=== PATIENT | female | born 1945 | race Caucasian/White ===

== ENCOUNTER 2016-06-25 18:04 | Emergency (ER) | payer MEDICARE, OTHER ==
[~2016-06-25] VITALS: Ht 144.8 cm; Wt 82.1 kg
[~2016-06-25 18:04] MED LIST: ASPI81TA2 PO; ASPI81TA50 PO; ATOR20TA58 PO; CARV12.52 PO; CARV3.12 PO; CLOP75TA PO; DICL75TA PO; DOXY100C2 PO; FURO40TA4 PO; GLYB1.252 PO; GLYB2.5T2 PO; LISI1TAB5 PO; METO25TA4 PO; POTA10CA PO; POTA10TA12 PO; RANI150T2 PO; TICA90TA PO
[2016-06-25 18:37] LABS: BILIRUBIN,URINE NEGATIVE (NEG); GLUCOSE,URINE NEGATIVE (NEG); NITRITE,URINE NEGATIVE (NEG); PH,URINE 5.5; PROTEIN,URINE NEGATIVE (NEG-TRACE); UROBILINOGEN,URINE 0.2 mg/dL (0.2 mg/dL)
[2016-06-25 18:41] LABS: BACTERIA,URINE FEW /HPF (0-FEW); RBC,URINE OCC /HPF (0-2); SQUAMOUS EPITHELIAL CELL,UR FEW /LPF; WBC,URINE OCC /HPF (0-4)
[2016-06-25 18:52] LABS: BASO % 0 % (0-3); EOS % 1 % (0-3); HEMATOCRIT 30.2 % (36.0-47.0); HEMOGLOBIN 9.6 g/dL (12.0-15.5); LYMPH # 1.4 x10^3/uL (1.0-4.8); LYMPH % 14 % (24-48); MEAN CORPUSCULAR HEMOGLOBIN 27 pg (25-35); MEAN CORPUSCULAR HGB CONC 32 g/dL (31-37); MEAN CORPUSCULAR VOLUME 85 fL (79-100); MONO % 8 % (0-9); NEUT % 77 % (31-73); PLATELET COUNT 378 x10^3/uL (140-400); RED BLOOD COUNT 3.56 x10^6/uL (3.50-5.40); RED CELL DISTRIBUTION WIDTH 18.1 % (11.5-14.5); WHITE BLOOD COUNT 10.2 x10^3/uL (4.0-11.0)
[2016-06-25] MEDS ORDERED: ONDANSETRON PF 4 MG/2 ML VIAL. IV ONE (19:00)
[2016-06-25] MEDS ORDERED: IV NORMAL SALINE 1000ML BAG 1,000 ML IV SCH (19:00)
[2016-06-25 19:05] LABS: CALCIUM 9.6 mg/dL (8.5-10.1); CREATININE 1.4 mg/dL (0.6-1.0); GFR 37.2; POTASSIUM 4.1 mmol/L (3.5-5.1)
[2016-06-25 19:11] LABS: ALBUMIN 2.3 g/dL (3.4-5.0); ALBUMIN/GLOBULIN RATIO 0.4 (1.0-1.7); TOTAL BILIRUBIN 0.3 mg/dL (0.2-1.0); TOTAL PROTEIN 7.5 g/dL (6.4-8.2)
[2016-06-25 21:44] VITALS: BP 126/61
--- NOTE | 2016-06-25 22:01 | PHYS DOC ---
Past Medical History Past Medical History: Arthritis, Diabetes-Type II, Hypertension, MA, Other Additional Past Medical Histor: obese, intubated 06/2015 Past Surgical History: Angioplasty, Hysterectomy, Other Additional Past Surgical Histo: hernia x2 Alcohol Use: None Drug Use: None Adult General Chief Complaint Chief Complaint: NAUSEA/VOMITING/DIARRHA HPI HPI Patient is a 70 year old female who presents here today complaining of nausea and vomiting. Patient reports she had 4-5 episodes of vomiting today. Patient denies any diarrhea. Patient has any fevers shaking chills. Patient has any cough. Patient has any upper respiratory tract infection symptoms. Patient has any sore throat. Patient has any ear pain or chest pain. Patient denies any abdominal pain but does have cramping when she has episodes of vomiting. Patient denies a dysuria frequency or urgency. Patient denies any melena or bright red blood per rectum. Patient reports that she's had no recent sick contacts. Of note patient reports that she recently moved out of her son's home and moved back into her own house after her son is soft renovate her home. Patient does have a history of hypertension. No diabetes liver longer kidney problems. Patient denies any history of diverticulitis cancer or coronary artery disease. Patient's physical exam was nonfocal. Patient does have a poorly healing wound on her abdomen that she reports she is scheduled to have a wound VAC placed for tomorrow. Patient reports that she is very nervous about that. Patient reports that she was told that if she had any hantavirus or infection that she would have to have that canceled. While in the ER the patient was given a liter of normal saline as well as Zofran and she feels much improved. Patient is requesting to be discharged home at this time. I discussed with the patient is to call her doctor in the morning to see if they want to resume with doing the wound VAC. Patient is a 70-year-old female who presents to the ER with nausea vomiting and dehydration. Patient feels improved after antiemetics and hydration. Patient is currently stable for discharge to home. Review of Systems Review of Systems Constitutional: Denies fever or chills [] Eyes: Denies change in visual acuity, redness, or eye pain [] HENT: Denies nasal congestion or sore throat [] All other review systems are negative except as documented in the history of present illness portion. Current Medications Current Medications Current Medications Medications (Trade) Dose Ordered Sig/Michelle Start Time Stop Time Status Last Admin Dose Admin Ondansetron HCl (Zofran) 4 mg 1X ONCE 06/25/16 19:00 06/25/16 19:01 DC 06/25/16 18:51 4 MG Sodium Chloride (Iv Sodium Chloride 0.9% 1000ml Bag) 1,000 ml @ 1,000 mls/hr Q1H 06/25/16 19:00 06/25/16 19:59 DC 06/25/16 18:51 1,000 MLS/HR Allergies Allergies Allergies Coded Allergies Type Severity Reaction Last Updated Verified Penicillins Allergy Intermediate 01/06/15 Yes adhesive tape Allergy Intermediate Rash 10/15/15 Yes latex Allergy Intermediate Rash 12/21/14 Yes metformin Adverse Reaction Intermediate nausea/diarrhea 10/15/15 Yes Physical Exam Physical Exam Constitutional: Well developed, well nourished, no acute distress, non-toxic appearance. [] HENT: Normocephalic, atraumatic, bilateral external ears normal, oropharynx moist, no oral exudates, nose normal. [] Eyes: PERRLA, EOMI, conjunctiva normal, no discharge. [] Neck: Normal range of motion, no tenderness, supple, no stridor. [] Cardiovascular:Heart rate regular rhythm, no murmur [] Lungs & Thorax: Bilateral breath sounds clear to auscultation [] Abdomen: Bowel sounds normal, soft, no tenderness, no masses, no pulsatile masses. Poorly healing incision in her abdomen. [] Skin: Warm, dry, no erythema, no rash. [] Back: No tenderness, no CVA tenderness. [] Extremities: No tenderness, no cyanosis, no clubbing, ROM intact, no edema. [] Neurologic: Alert and oriented X 3, normal motor function, normal sensory function, no focal deficits noted. [] Psychologic: Affect normal, judgement normal, mood normal. [] Current Patient Data Vital Signs Vital Signs Date Time Temp Pulse Resp B/P Pulse Ox O2 Delivery O2 Flow Rate FiO2 06/25/16 21:44 98.6 108 22 126/61 96 Room Air 98.6 Lab Values Laboratory Tests Test 06/25/16 17:58 06/25/16 18:15 White Blood Count 10.2x10^3/uL (4.0-11.0) Red Blood Count 3.56x10^6/uL (3.50-5.40) Hemoglobin 9.6g/dL (12.0-15.5) L Hematocrit 30.2% (36.0-47.0) L Mean Corpuscular Volume 85fL (79-100) Mean Corpuscular Hemoglobin 27pg (25-35) Mean Corpuscular Hemoglobin Concent 32g/dL (31-37) Red Cell Distribution Width 18.1% (11.5-14.5) H Platelet Count 378x10^3/uL (140-400) Neutrophils (%) (Auto) 77% (31-73) H Lymphocytes (%) (Auto) 14% (24-48) L Monocytes (%) (Auto) 8% (0-9) Eosinophils (%) (Auto) 1% (0-3) Basophils (%) (Auto) 0% (0-3) Neutrophils # (Auto) 7.9x10^3uL (1.8-7.7) H Lymphocytes # (Auto) 1.4x10^3/uL (1.0-4.8) Monocytes # (Auto) 0.8x10^3/uL (0.0-1.1) Eosinophils # (Auto) 0.1x10^3/uL (0.0-0.7) Basophils # (Auto) 0.0x10^3/uL (0.0-0.2) Sodium Level 141mmol/L (136-145) Potassium Level 4.1mmol/L (3.5-5.1) Chloride Level 102mmol/L (98-107) Carbon Dioxide Level 23mmol/L (21-32) Anion Gap 16 (6-14) H Blood Urea Nitrogen 38mg/dL (7-20) H Creatinine 1.4mg/dL (0.6-1.0) H Estimated GFR (Cockcroft-Gault) 37.2 BUN/Creatinine Ratio 27 (6-20) H Glucose Level 204mg/dL (70-99) H Calcium Level 9.6mg/dL (8.5-10.1) Total Bilirubin 0.3mg/dL (0.2-1.0) Aspartate Amino Transferase (AST) 12U/L (15-37) L Alanine Aminotransferase (ALT) 12U/L (14-59) L Alkaline Phosphatase 130U/L (46-116) H Troponin I Quantitative < 0.017ng/mL (0.000-0.055) Total Protein 7.5g/dL (6.4-8.2) Albumin 2.3g/dL (3.4-5.0) L Albumin/Globulin Ratio 0.4 (1.0-1.7) L Lipase 183U/L (73-393) Urine Collection Type Unknown Urine Color Yellow Urine Clarity Clear Urine pH 5.5 Urine Specific [place] 1.015 Urine Protein Negativemg/dL (NEG-TRACE) Urine Glucose (UA) Negativemg/dL (NEG) Urine Ketones (Stick) Negativemg/dL (NEG) Urine Blood Negative (NEG) Urine Nitrite Negative (NEG) Urine Bilirubin Negative (NEG) Urine Urobilinogen Dipstick 0.2mg/dL (0.2 mg/dL) Urine Leukocyte Esterase Trace (NEG) Urine RBC Occ/HPF (0-2) Urine WBC Occ/HPF (0-4) Urine Squamous Epithelial Cells Few/LPF Urine Bacteria Few/HPF (0-FEW) Urine Hyaline Casts Few/HPF Urine Mucus Mod/LPF Laboratory Tests 06/25/16 17:58 Laboratory Tests 06/25/16 17:58 EKG EKG [] Radiology/Procedures Radiology/Procedures [] Course & Med Decision Making Course & Med Decision Making Pertinent Labs and Imaging studies reviewed. (See chart for details) [] Dragon Disclaimer Dragon Disclaimer This electronic medical record was generated, in whole or in part, using a voice recognition dictation system. Departure Departure Impression: Primary Impression: Dehydration Additional Impression: Vomiting with nausea, not intractable Disposition: 01 HOME, SELF-CARE Condition: IMPROVED Referrals: MILENA MCMILLAN MD (PCP) Patient Instructions: Dehydration, Elderly Problem Qualifiers NATALIYA GOMEZ MD Jun 25, 2016 22:01
--- NOTE | 2016-06-26 08:57 | EKG ---
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
== END 2016-06-25 22:09 | disposition home or self-care (01) ==
LOC: ER 18:04
DX: E86.0 Dehydration (principal); R11.2 Nausea with vomiting, unspecified; I10 Essential (primary) hypertension; I25.2 Old myocardial infarction; E11.9 Type 2 diabetes mellitus without complications; M19.90 Unspecified osteoarthritis, unspecified site; E66.9 Obesity, unspecified; Z68.39 Body mass index [BMI] 39.0-39.9, adult; Z95.1 Presence of aortocoronary bypass graft; Z91.048 Other nonmedicinal substance allergy status; Z88.8 Allergy status to other drugs, medicaments and biological substances; Z91.040 Latex allergy status; Z88.0 Allergy status to penicillin
CPT/HCPCS: 36415; 80053; 81001; 83690; 84484; 85027; 87086; 93005; 96361; 96374; 99285; J2405; J7030

== ENCOUNTER → 2016-08-16 | Outpatient (CLI) | payer OTHER ==
--- NOTE | 2016-08-16 15:52 | CARD ---
APPROVED REPORT EXAM: Two-dimensional and M-mode echocardiogram with Doppler and color Doppler. Other Information Quality : GoodHR: 75bpm Rhythm : NSR INDICATION Congestive Heart Failure Chronic Diastolic Heart Failure 2D DIMENSIONS RVDd3.3 (2.9-3.5cm)Left Atrium(2D)3.7 (1.6-4.0cm) IVSd1.1 (0.7-1.1cm)Aortic Root(2D)2.8 (2.0-3.7cm) LVDd5.0 (3.9-5.9cm)LVOT Diameter2.0 (1.8-2.4cm) PWd1.0 (0.7-1.1cm)LVDs3.6 (2.5-4.0cm) FS (%) 26.7 %SV60.8 ml LVEF(%)52.0 (>50%) Aortic Valve AoV Peak Jason.149.6cm/sAoV VTI27.4cm AO Peak GR.9.0mmHgLVOT Peak Jason.99.3cm/s LVOT VTI 19.45cmAO Mean GR.5mmHg JOSY (VMAX)2.11uu1EBJ (VTI)2.23cm2 Mitral Valve MV E Jvtazbei584.7cm/sMV E Peak Gr.92mmHg MV DECEL [id number] A Kvczzbdl166.1cm/s MV E Mean Gr.6mmHgMV LYU50qh E/A Ratio0.8MV A [id number] MVA (PHT)2.78cm2 TDI E/Lateral E'21.9E/Medial E'31.2 Pulmonary Valve PV Peak Sqmfcpqs92.9cm/sPV Peak Grad.3mmHg RVOT VTI14.5cm Tricuspid Valve TR P. Yvnxdwtf856et/sRAP CFKBTSEP1gyGm TR Peak Gr.08foIsALPZ10ayZu Pulmonary Vein S1 Hxwqibyz73.4cm/sD2 [place]10.1cm/s PVa ejmffkhf026pmcc LEFT VENTRICLE The left ventricle is normal size. There is normal left ventricular wall thickness. Proximal septal t hickening is noted. The Ejection Fraction is 50-55%. Basal inferior wall hypokinesis. Transmitral Dop pler flow pattern is Grade I-abnormal relaxation pattern. There is no ventricular septal defect visua lized. RIGHT VENTRICLE The right ventricle is normal size. The right ventricular systolic function is normal. ATRIA The left atrium size is normal. The right atrium size is normal. The interatrial septum is intact wit h no evidence for an atrial septal defect or patent foramen ovale as noted on 2-D or Doppler imaging. AORTIC VALVE The aortic valve is mildly calcified but opens well. The aortic valve is trileaflet. Doppler and [place] r Flow revealed no significant aortic regurgitation. There is no significant aortic valvular stenosis . MITRAL VALVE Mitral annular calcification is moderate to severe. The mitral valve leaflets are calcified but open well. There is no evidence of mitral valve prolapse. There is no mitral valve stenosis. Doppler and [place] Flow revealed moderate mitral regurgitation. TRICUSPID VALVE The tricuspid valve is normal in structure. Doppler and Color Flow revealed mild tricuspid regurgitat ion. There is mild pulmonary hypertension. The PA pressure was estimated at 34 mmHg. There is no tric uspid valve stenosis. PULMONIC VALVE The pulmonary valve is normal in structure and function. Doppler and Color Flow revealed no pulmonic valvular regurgitation. There is no pulmonic valvular stenosis. GREAT VESSELS The aortic root is normal in size. The ascending aorta is normal in size. Normal pulmonary venous aris w (Doppler). The IVC is normal in size and collapses >50% with inspiration. PERICARDIAL EFFUSION There is no pleural effusion. There is no evidence of significant pericardial effusion. Critical Notification Critical Value: No <Conclusion> Basal inferior wall hypokinesis. The Ejection Fraction is 50-55%. Transmitral Doppler flow pattern is Grade I-abnormal relaxation pattern. Moderate mitral regurgitation. Mild tricuspid regurgitation. The PA pressure was estimated at 34 mmHg. There is no evidence of significant pericardial effusion.
== END | disposition home or self-care (01) ==
LOC: ECHO 10:31
PROVIDERS: ATTEND Internal Medicine Cardiovascular Disease
DX: I50.32 Chronic diastolic (congestive) heart failure (principal); I08.1 Rheumatic disorders of both mitral and tricuspid valves; I27.2 Other secondary pulmonary hypertension
CPT/HCPCS: 93306

== ENCOUNTER 2017-01-30 18:24 | Inpatient (IN) | payer OTHER ==
[~2017-01-30] VITALS: Ht 147.3 cm; Wt 76.7 kg
[~2017-01-30 18:24] MED LIST changes: +ASPI-630 PO; -ASPI81TA2 PO; -POTA10CA PO; +POTASSIUM CHLO10 MEQ PO
[2017-01-30 19:19] LABS: BILIRUBIN,URINE NEGATIVE (NEG); GLUCOSE,URINE NEGATIVE (NEG); NITRITE,URINE NEGATIVE (NEG); PH,URINE 5.5; PROTEIN,URINE NEGATIVE (NEG-TRACE); UROBILINOGEN,URINE 0.2 mg/dL (0.2 mg/dL)
[2017-01-30 19:20] LABS: BASO # 0.1 x10^3/uL (0.0-0.2); BASO % 1 % (0-3); EOS % 2 % (0-3); HEMATOCRIT 30.1 % (36.0-47.0); HEMOGLOBIN 9.6 g/dL (12.0-15.5); LYMPH # 1.4 x10^3/uL (1.0-4.8); LYMPH % 22 % (24-48); MEAN CORPUSCULAR HEMOGLOBIN 28 pg (25-35); MEAN CORPUSCULAR HGB CONC 32 g/dL (31-37); MEAN CORPUSCULAR VOLUME 88 fL (79-100); MONO % 9 % (0-9); NEUT % 66 % (31-73); PLATELET COUNT 320 x10^3/uL (140-400); RED BLOOD COUNT 3.42 x10^6/uL (3.50-5.40); RED CELL DISTRIBUTION WIDTH 19.8 % (11.5-14.5); WHITE BLOOD COUNT 6.2 x10^3/uL (4.0-11.0)
[2017-01-30 19:24] LABS: BACTERIA,URINE 0 /HPF (0-FEW); RBC,URINE 0 /HPF (0-2); SQUAMOUS EPITHELIAL CELL,UR FEW /LPF; WBC,URINE OCC /HPF (0-4)
[2017-01-30 19:33] LABS: CALCIUM 9.4 mg/dL (8.5-10.1); CREATININE 1.1 mg/dL (0.6-1.0); POTASSIUM 4.3 mmol/L (3.5-5.1)
[2017-01-30 19:39] LABS: ALBUMIN 2.9 g/dL (3.4-5.0); ALBUMIN/GLOBULIN RATIO 0.6 (1.0-1.7); TOTAL BILIRUBIN 0.2 mg/dL (0.2-1.0); TOTAL PROTEIN 7.6 g/dL (6.4-8.2)
--- NOTE | 2017-01-30 19:41 | ED.ADGEN ---
Past Medical History Past Medical History: Arthritis, CHF, Diabetes-Type II, Hypertension, OR, Other Additional Past Medical Histor: obese, intubated 06/2015 Past Surgical History: Angioplasty, Hysterectomy, Other Additional Past Surgical Histo: hernia x2, CARDIAC STENT Alcohol Use: None Drug Use: None Adult General Chief Complaint Chief Complaint: BACK PAIN - NO INJURY HPI HPI Patient is a 71 year old woman, history of type 2 diabetes mellitus, hypertension, CHF, CAD status post OR, with recent skin grafting to her abdomen after adhesive created a skin defect, who presents emergency Department with complaint of bilateral back and flank pain that is in worsening all day. Patient denies any injuries, any fevers or chills, any urinary complaints, any vomiting or diarrhea, states he is not having abdominal pain, radiation of the pain, but she does feel nauseous. No chest pain or shortness of breath, no similar symptoms previously. She has been compliant with medications, states that she uses Tylenol at home for pain but has not taken anything prior to coming to the ED today. No swelling in extremities, no rashes, no recent travel or surgery. Patient states the pain is about an 8 of 10 currently, described as an aching and throbbing sensation. Patient appears uncomfortable, and is mildly tachycardic upon arousing the ED. Review of Systems Review of Systems Constitutional: Denies fever or chills. [] Eyes: Denies change in visual acuity. [] HENT: Denies nasal congestion or sore throat. [] Respiratory: Denies cough or shortness of breath. [] Cardiovascular: Denies chest pain or edema. [] GI: Denies abdominal pain, vomiting, bloody stools or diarrhea. Nausea. : Denies dysuria. [] Musculoskeletal: Back pain throughout the lumbar region, no joint pain. Integument: Denies rash. [] Neurologic: Denies headache, focal weakness or sensory changes. [] Endocrine: Denies polyuria or polydipsia. [] Lymphatic: Denies swollen glands. [] Psychiatric: Denies depression or anxiety. [] Current Medications Current Medications Current Medications Medications (Trade) Dose Ordered Sig/Michelle Start Time Stop Time Status Last Admin Dose Admin Fentanyl Citrate (Fentanyl 2ml Vial) 25 mcg PRN Q15MIN PRN 01/30/17 19:45 01/31/17 19:44 01/30/17 19:54 25 MCG Ondansetron HCl (Zofran) 4 mg 1X ONCE 01/30/17 19:45 01/30/17 19:46 DC 01/30/17 19:53 4 MG Allergies Allergies Allergies Coded Allergies Type Severity Reaction Last Updated Verified Penicillins Allergy Intermediate 01/06/15 Yes adhesive tape Allergy Intermediate Rash 10/15/15 Yes latex Allergy Intermediate Rash 12/21/14 Yes metformin Adverse Reaction Intermediate nausea/diarrhea 10/15/15 Yes Physical Exam Physical Exam Constitutional: Well developed, well nourished, no acute distress, non-toxic appearance. [] HENT: Normocephalic, atraumatic, bilateral external ears normal, oropharynx moist, no oral exudates, nose normal. [] Eyes: PERRLA, EOMI, conjunctiva normal, no discharge. [] Neck: Normal range of motion, no tenderness, supple, no stridor. [] Cardiovascular:Heart rate regular rhythm, no murmur [] Lungs & Thorax: Bilateral breath sounds clear to auscultation [] Abdomen: Bowel sounds normal, soft, patient with large dressing in place over the anterior abdomen, where she has skin graft placed, tenderness around the site, no discharge or drainage identified, no rebound or rigidity, no masses, no pulsatile masses. [] Skin: Warm, dry, no erythema, no rash. [] Back: Patient with midline and paraspinal tenderness throughout the lumbar region, no step-offs or deformities, no lesions, no evidence of normality is noted externally.[] Extremities: No tenderness, no cyanosis, no clubbing, ROM intact, no edema. [] Neurologic: Alert and oriented X 3, normal motor function, normal sensory function, no focal deficits noted. [] Psychologic: Affect normal, judgement normal, mood normal. [] Current Patient Data Vital Signs Vital Signs Date Time Temp Pulse Resp B/P (MAP) Pulse Ox O2 Delivery O2 Flow Rate FiO2 01/30/17 20:45 Room Air 01/30/17 20:35 94 22 105/51 (69) 93 01/30/17 18:35 98.2 98.2 Lab Values Laboratory Tests Test 01/30/17 19:10 White Blood Count 6.2 x10^3/uL (4.0-11.0) Red Blood Count 3.42 x10^6/uL (3.50-5.40) L Hemoglobin 9.6 g/dL (12.0-15.5) L Hematocrit 30.1 % (36.0-47.0) L Mean Corpuscular Volume 88 fL (79-100) Mean Corpuscular Hemoglobin 28 pg (25-35) Mean Corpuscular Hemoglobin Concent 32 g/dL (31-37) Red Cell Distribution Width 19.8 % (11.5-14.5) H Platelet Count 320 x10^3/uL (140-400) Neutrophils (%) (Auto) 66 % (31-73) Lymphocytes (%) (Auto) 22 % (24-48) L Monocytes (%) (Auto) 9 % (0-9) Eosinophils (%) (Auto) 2 % (0-3) Basophils (%) (Auto) 1 % (0-3) Neutrophils # (Auto) 4.1 x10^3uL (1.8-7.7) Lymphocytes # (Auto) 1.4 x10^3/uL (1.0-4.8) Monocytes # (Auto) 0.6 x10^3/uL (0.0-1.1) Eosinophils # (Auto) 0.1 x10^3/uL (0.0-0.7) Basophils # (Auto) 0.1 x10^3/uL (0.0-0.2) Prothrombin Time 13.0 SEC (11.7-14.0) Prothrombin Time INR 1.0 (0.8-1.1) PTT 30 SEC (24-38) Urine Collection Type Unknown Urine Color Yellow Urine Clarity Clear Urine pH 5.5 Urine Specific [place] 1.015 Urine Protein Negative mg/dL (NEG-TRACE) Urine Glucose (UA) Negative mg/dL (NEG) Urine Ketones (Stick) Negative mg/dL (NEG) Urine Blood Negative (NEG) Urine Nitrite Negative (NEG) Urine Bilirubin Negative (NEG) Urine Urobilinogen Dipstick 0.2 mg/dL (0.2 mg/dL) Urine Leukocyte Esterase Trace (NEG) Urine RBC 0 /HPF (0-2) Urine WBC Occ /HPF (0-4) Urine Squamous Epithelial Cells Few /LPF Urine Bacteria 0 /HPF (0-FEW) Urine Mucus Slight /LPF Sodium Level 140 mmol/L (136-145) Potassium Level 4.3 mmol/L (3.5-5.1) Chloride Level 102 mmol/L (98-107) Carbon Dioxide Level 28 mmol/L (21-32) Anion Gap 10 (6-14) Blood Urea Nitrogen 26 mg/dL (7-20) H Creatinine 1.1 mg/dL (0.6-1.0) H Estimated GFR (Cockcroft-Gault) 49.0 BUN/Creatinine Ratio 24 (6-20) H Glucose Level 210 mg/dL (70-99) H Calcium Level 9.4 mg/dL (8.5-10.1) Total Bilirubin 0.2 mg/dL (0.2-1.0) Aspartate Amino Transferase (AST) 11 U/L (15-37) L Alanine Aminotransferase (ALT) 14 U/L (14-59) Alkaline Phosphatase 110 U/L (46-116) Troponin I Quantitative < 0.017 ng/mL (0.000-0.055) Total Protein 7.6 g/dL (6.4-8.2) Albumin 2.9 g/dL (3.4-5.0) L Albumin/Globulin Ratio 0.6 (1.0-1.7) L Lipase 150 U/L (73-393) Laboratory Tests 01/30/17 19:10 Laboratory Tests 01/30/17 19:10 EKG EKG EC: Sinus tachycardia, heart rate 105 bpm, QTC of 440, PA of 164, QRS of 98, no ST elevations or depressions, patient with contour normality is noted in the anterior lateral leads, abnormal ECG, does not meet STEMI criteria. As interpreted by me. Radiology/Procedures Radiology/Procedures [][facility] [address] [place], [place] [id number] IMAGING REPORT Signed PATIENT: SAFIA MIRANDA ACCOUNT: [id number] : 1945 LOCATION: ER AGE: 71 SEX: F EXAM STATUS: REG ER ORD. PHYSICIAN: FIOR JAEGER DO REASON: Back pain/flank pain PROCEDURE: CT LUMBAR SPINE RECONSTRUCTION Indication: Back pain. Technique: Axial images and coronal and sagittal reformatted images are provided. Images were obtained from the abdomen and pelvis data set. No comparison is available. One or more of the following individualized dose reduction techniques were utilized for this examination: 1. Automated exposure control 2. Adjustment of the mA and/or kV according to patient size 3. Use of iterative reconstruction technique Findings: What is considered L1 has nonunited transverse processes. There is anterolisthesis at L4-L5 measuring 5 mm. This may be secondary to facet hypertrophy. There are L5 pars defects bilaterally but no listhesis at L5-S1. No fracture is identified. Vertebral body height is maintained. Vacuum disc is noted at T12-L1. Disc osteophyte complex is noted at T12-L1. Facet hypertrophy is greatest at L4-L5 and L5-S1. There is probably mild canal stenosis at L4-L5. There is at least [id number] foraminal narrowing at L4-L5 and L5-S1. IMPRESSION: 1. Degenerative changes in the lumbar spine, greatest at L4-L5 and L5-S1. If further workup is required, consider MRI nonemergently. 2. L5 bilateral pars defects without significant listhesis. Anterolisthesis at L4-L5 appears to be secondary to facet hypertrophy. Electronically signed by: Salvador Thomas MD (01/30/2017 8:14 PM) [facility] DICTATED and SIGNED BY: SALVADOR THOMAS MD DATE: 01/30/172007 CC: MILENA MCMILLAN MD; FIOR JAEGER DO ~ Impressions: [facility] [address] [place], [place] [id number] IMAGING REPORT Signed PATIENT: SAFIA MIRANDA ACCOUNT: [id number] : 1945 LOCATION: ER AGE: 71 SEX: F EXAM STATUS: REG ER ORD. PHYSICIAN: FIOR JAEGER DO REASON: Flank/lumbar pain PROCEDURE: CT ABDOMEN PELVIS WO CONTRAST PQRS Compliance Statement: One or more of the following individualized dose reduction techniques were utilized for this examination: 1. Automated exposure control 2. Adjustment of the mA and/or kV according to patient size 3. Use of iterative reconstruction technique CT abdomen/pelvis without contrast January 30, 2017 at 7:39 PM INDICATION: Bilateral flank pain and back pain. History of abdominal plastic surgery. COMPARISON: CT lumbar spine January 30, 2017, CT chest May 23, 2015 TECHNIQUE: Multiple axial CT images of the abdomen and pelvis were obtained without intravenous contrast. Coronal and sagittal reformats are provided. FINDINGS: Lung bases are clear. Heart size is within normal limits. Mitral valve prosthesis is present. Evaluation of the solid abdominal viscera is limited by lack of intravenous contrast. Liver is homogeneous without evidence for a focal mass lesion. Spleen is within normal limits. Mild fatty atrophy of the pancreas. There is fusiform thickening of the adrenal glands bilaterally measuring up to 10 mm on the left and 9 mm in the right. Gallbladder is surgically absent. The abdominal aorta is normal in course and caliber. There are no pathologically enlarged abdominal or pelvic lymph nodes. There is no free fluid within the abdomen or pelvis. There is no free intraperitoneal air. The kidneys are symmetric in size. There is a 3 mm calcification in the left renal pelvis which may be vascular or associated with a nonobstructing renal calculus. No calculi are identified in the right kidney. There is no hydronephrosis. Urinary bladder is normal in appearance given degree of distention. No significant adnexal masses are identified. Oral contrast was not administered. There are no dilated loops of small or large bowel. There is a large ventral abdominal hernia, to the right of midline, likely secondary to diastases of the abdominal rectus muscles. There is mild circumferential wall thickening and pericolonic inflammatory changes noted in the sigmoid colon in a region of diverticulosis suspicious for mild diverticulitis. Additionally, there is suggestion of pericolonic inflammatory changes involving a segment of suspected small bowel within the large hernia sac (series 2, image [id number]). This finding may be secondary to an internal hernia, which is difficult to evaluate without oral contrast. There is nonspecific skin thickening involving the right ventral abdominal wall measuring approximately 6 mm. No suspicious osseous lesions are identified. IMPRESSION: 1. Short segment of colonic wall thickening and pericolonic inflammatory changes involving the sigmoid colon in the area of diverticulosis is suggestive of mild diverticulitis. No pericolonic fluid collection is identified. No free peritoneal air. 2. There are inflammatory changes surrounding small bowel loops within a large ventral abdominal hernia which could be secondary to an internal hernia. No evidence for bowel obstruction. Short term follow up CT Abdomen/Pelvis is recommended with oral contrast for further evaluation. 3. Nonobstructing 3 mm calculus versus vascular calcification noted in the left kidney. No hydronephrosis. Next on 4. Fusiform thickening of the adrenal glands bilaterally may be associated with adrenal hyperplasia. Findings are stable dating back to May 23, 2015. 4. Nonspecific skin thickening involving the ventral right abdominal wall. Critical results were discussed with Dr. Jaeger at 8:15 PM on 01/30/2017. Electronically signed by: Siobhan Neff MD (01/30/2017 8:16 PM) [id number] DICTATED and SIGNED BY: SIOBHAN NEFF MD DATE: 01/30/171956 CC: MILENA MCMILLAN MD; FIOR JAEGER DO ~ Course & Med Decision Making Course & Med Decision Making Pertinent Labs and Imaging studies reviewed. (See chart for details) Patient complaining of pain throughout the lumbar region, without any cells or deformities. Due to patient's recent abdominal surgery, with diffuse unclear symptoms, and no history of injury, CT of the abdomen and pelvis ordered along with re-cons of the lumbar spine. No lumbar spinal normalities were identified be consistent with patient's acute findings, however patient's abdominal CT did reveal evidence of diverticulitis, which is likely the source of the patient's discomfort. I did discuss this with patient, she is resting more, left receiving analgesia and antiemetics in the ED, heart rate has now normalized, she states her pain is much better. She is agreeable for admission to the hospital for IV treatment of symptoms, and with antibiotic coverage, states she was last seen by a GI physician about 5 years ago for a colonoscopy. Patient initiated on ciprofloxacin and metronidazole in the ED without issue. I did discuss findings as above with Dr. Mcmillan the patient's primary care provider, patient was accepted his service as a full admission to the medical telemetry floor, with symptom management, antibiotic treatment, and monitoring. Bridge orders entered per discussion. Patient transferred to the floor without issue. Dragon Disclaimer Dragon Disclaimer This electronic medical record was generated, in whole or in part, using a voice recognition dictation system. Departure Impression: Primary Impression: Diverticulitis Additional Impression: Intractable abdominal pain Disposition: ADMITTED INPATIENT Admitting Physician: Milena Mcmillan Condition: IMPROVED Problem Qualifiers FIOR JAEGER DO Jan 30, 2017 19:41
[2017-01-30] MEDS ORDERED: ONDANSETRON PF 4 MG/2 ML VIAL. IV ONE (19:45)
[2017-01-30] MEDS: fentaNYL PF VIAL 100 MCG/2 ML VIAL IV PRN (19:54)
--- NOTE | 2017-01-30 20:17 | RAD ---
Indication: Back pain. Technique: Axial images and coronal and sagittal reformatted images are provided. Images were obtained from the abdomen and pelvis data set. No comparison is available. One or more of the following individualized dose reduction techniques were utilized for this examination: 1. Automated exposure control 2. Adjustment of the mA and/or kV according to patient size 3. Use of iterative reconstruction technique Findings: What is considered L1 has nonunited transverse processes. There is anterolisthesis at L4-L5 measuring 5 mm. This may be secondary to facet hypertrophy. There are L5 pars defects bilaterally but no listhesis at L5-S1. No fracture is identified. Vertebral body height is maintained. Vacuum disc is noted at T12-L1. Disc osteophyte complex is noted at T12-L1. Facet hypertrophy is greatest at L4-L5 and L5-S1. There is probably mild canal stenosis at L4-L5. There is at least [id number] foraminal narrowing at L4-L5 and L5-S1. IMPRESSION: 1. Degenerative changes in the lumbar spine, greatest at L4-L5 and L5-S1. If further workup is required, consider MRI nonemergently. 2. L5 bilateral pars defects without significant listhesis. Anterolisthesis at L4-L5 appears to be secondary to facet hypertrophy. Electronically signed by: Salvador Thomas MD (01/30/2017 8:14 PM) [facility]
--- NOTE | 2017-01-30 20:19 | RAD ---
PQRS Compliance Statement: One or more of the following individualized dose reduction techniques were utilized for this examination: 1. Automated exposure control 2. Adjustment of the mA and/or kV according to patient size 3. Use of iterative reconstruction technique CT abdomen/pelvis without contrast January 30, 2017 at 7:39 PM INDICATION: Bilateral flank pain and back pain. History of abdominal plastic surgery. COMPARISON: CT lumbar spine January 30, 2017, CT chest May 23, 2015 TECHNIQUE: Multiple axial CT images of the abdomen and pelvis were obtained without intravenous contrast. Coronal and sagittal reformats are provided. FINDINGS: Lung bases are clear. Heart size is within normal limits. Mitral valve prosthesis is present. Evaluation of the solid abdominal viscera is limited by lack of intravenous contrast. Liver is homogeneous without evidence for a focal mass lesion. Spleen is within normal limits. Mild fatty atrophy of the pancreas. There is fusiform thickening of the adrenal glands bilaterally measuring up to 10 mm on the left and 9 mm in the right. Gallbladder is surgically absent. The abdominal aorta is normal in course and caliber. There are no pathologically enlarged abdominal or pelvic lymph nodes. There is no free fluid within the abdomen or pelvis. There is no free intraperitoneal air. The kidneys are symmetric in size. There is a 3 mm calcification in the left renal pelvis which may be vascular or associated with a nonobstructing renal calculus. No calculi are identified in the right kidney. There is no hydronephrosis. Urinary bladder is normal in appearance given degree of distention. No significant adnexal masses are identified. Oral contrast was not administered. There are no dilated loops of small or large bowel. There is a large ventral abdominal hernia, to the right of midline, likely secondary to diastases of the abdominal rectus muscles. There is mild circumferential wall thickening and pericolonic inflammatory changes noted in the sigmoid colon in a region of diverticulosis suspicious for mild diverticulitis. Additionally, there is suggestion of pericolonic inflammatory changes involving a segment of suspected small bowel within the large hernia sac (series 2, image [id number]). This finding may be secondary to an internal hernia, which is difficult to evaluate without oral contrast. There is nonspecific skin thickening involving the right ventral abdominal wall measuring approximately 6 mm. No suspicious osseous lesions are identified. IMPRESSION: 1. Short segment of colonic wall thickening and pericolonic inflammatory changes involving the sigmoid colon in the area of diverticulosis is suggestive of mild diverticulitis. No pericolonic fluid collection is identified. No free peritoneal air. 2. There are inflammatory changes surrounding small bowel loops within a large ventral abdominal hernia which could be secondary to an internal hernia. No evidence for bowel obstruction. Short term follow up CT Abdomen/Pelvis is recommended with oral contrast for further evaluation. 3. Nonobstructing 3 mm calculus versus vascular calcification noted in the left kidney. No hydronephrosis. Next on 4. Fusiform thickening of the adrenal glands bilaterally may be associated with adrenal hyperplasia. Findings are stable dating back to May 23, 2015. 4. Nonspecific skin thickening involving the ventral right abdominal wall. Critical results were discussed with Dr. Raymundo at 8:15 PM on 01/30/2017. Electronically signed by: Meenakshi Caban MD (01/30/2017 8:16 PM) [id number]
[2017-01-30] MEDS ORDERED: CIPROFLOXACIN 400MG PREMIX 200 ML IV ONE (21:00)
[2017-01-30] MEDS ORDERED: ACETAMINOPHEN 325 MG TABLET. PO PRN (22:00)
[2017-01-30] MEDS ORDERED: ONDANSETRON PF 4 MG/2 ML VIAL. IV PRN (22:00)
[2017-01-30] MEDS ORDERED: fentaNYL PF VIAL 100 MCG/2 ML VIAL IV PRN (22:00)
[2017-01-31] VITALS (8 sets, daily range): BP systolic 102–120; BP diastolic 35–59
[2017-01-31] MEDS ORDERED: METO25TA4 PO (00:55)
[2017-01-31] MEDS ORDERED: ATOR40TA59 PO (00:55)
[2017-01-31] MEDS: IV NORMAL SALINE 1000ML BAG 1,000 ML IV SCH ×3 (01:35→14:40)
[2017-01-31 04:38] LABS: BASO % 0 % (0-3); EOS % 2 % (0-3); HEMATOCRIT 26.7 % (36.0-47.0); HEMOGLOBIN 8.6 g/dL (12.0-15.5); LYMPH # 1.3 x10^3/uL (1.0-4.8); LYMPH % 32 % (24-48); MEAN CORPUSCULAR HEMOGLOBIN 29 pg (25-35); MEAN CORPUSCULAR HGB CONC 32 g/dL (31-37); MEAN CORPUSCULAR VOLUME 88 fL (79-100); MONO % 13 % (0-9); NEUT % 53 % (31-73); PLATELET COUNT 235 x10^3/uL (140-400); RED BLOOD COUNT 3.04 x10^6/uL (3.50-5.40); RED CELL DISTRIBUTION WIDTH 19.6 % (11.5-14.5); WHITE BLOOD COUNT 4.1 x10^3/uL (4.0-11.0)
[2017-01-31 05:04] LABS: CALCIUM 9.1 mg/dL (8.5-10.1); CREATININE 0.8 mg/dL (0.6-1.0); GFR 70.7; POTASSIUM 3.9 mmol/L (3.5-5.1)
--- NOTE | 2017-01-31 06:31 | EKG ---
[facility] [address] [place] [address] Test Date: 2017-01-30 Test Time: 18:31:09 Pat Name: SAFIA MIRANDA Department: Room: 210 1 Gender: F Screed Person: : 1945 Requested By: FIOR JAEGER Order Number: [id number] Reading MD: Gene Partida Measurements Intervals Colbert Rate: 105 P: 36 OR: 164 QRS: 7 QRSD: 98 T: 63 QT: 330 QTc: 440 Interpretive Statements SINUS TACHYCARDIA QRS(T) CONTOUR ABNORMALITY CONSIDER ANTEROLATERAL MYOCARDIAL DAMAGE RI6.01 Unconfirmed report Compared to ECG 06/25/2016 18:40:47 Right superior axis no longer present T-wave abnormality no longer present Electronically Signed On 02-09-2017 12:46:20 CDT by Gene Partida
--- NOTE | 2017-01-31 09:32 | PDOC ---
Provider Note Provider Note [id number] MILENA MCMILLAN MD Jan 31, 2017 09:32
[2017-01-31] MEDS: CIPROFLOXACIN 400MG PREMIX 200 ML IV SCH ×2 (10:26→20:33)
[2017-01-31] MEDS: METOPROLOL TART IMMED RELEASE 25 MG TABLET. PO SCH ×2 (10:26→20:34)
[2017-01-31] MEDS: ASPIRIN CHEWABLE 81 MG TABLET. PO SCH (10:26)
[2017-01-31] MEDS: CLOPIDOGREL BISULFATE 75 MG TABLET PO SCH (10:26)
[2017-01-31] MEDS: fentaNYL PF VIAL 100 MCG/2 ML VIAL IV PRN (10:27)
--- NOTE | 2017-01-31 10:45 | HP ---
ADMIT DATE: 01/30/2017 CHIEF COMPLAINT: Back pain. HISTORY OF PRESENT ILLNESS: This 71-year-old white female has a history of diet-controlled diabetes and congestive heart failure, preserved ejection fraction, and skin graft at [facility]. She developed left flank and slightly upper quadrant pain, a couple of days prior to admission, but no vomiting, diarrhea, fever or any GI symptoms. CT scan showed evidence of mild diverticulitis and she was placed on IV Flagyl and Cipro, and has no other new complaints at this time. PAST MEDICAL HISTORY: Multiple admissions for coronary artery stenting, the last about 2 years ago, and is on aspirin and Plavix since that time. She has diet-controlled diabetes. The patient sees [facility] for skin grafts of her abdomen which are improving. ALLERGIES: LISTED TO METFORMIN, PENICILLIN. SOCIAL HISTORY: , nonsmoker, nondrinker, not employed. FAMILY HISTORY: Unremarkable. REVIEW OF SYSTEMS: No other specific complaints. OBJECTIVE: ENT: All within normal limits. NECK: No masses, nodes or bruits, or thyroid enlargement. LUNGS: Clear. No rales. CARDIOVASCULAR: Regular rate. No irregular beat or murmur. No tachycardia. ABDOMEN: Obese, nontender. She has healing skin grafts on the abdomen. She is mildly tender in the left upper quadrant and left flank area. No masses are felt. EXTREMITIES: Good pedal and radial pulses. No joint or skin lesions or nail bed findings. NEUROLOGIC: Physiologic and nonfocal. ASSESSMENT: Proximal sigmoid colon diverticulitis, otherwise medically stable. PLAN: Continue IV Cipro and Flagyl and supportive care. MILENA MCMILLAN MD DR: FATEMEH/suleman JOB#: [id number] / [id number]
[2017-01-31] MEDS ORDERED: POTASSIUM CHLORIDE 10 MEQ TABLET.ER. PO SCH (18:00)
[2017-01-31] MEDS: ATORVASTATIN CALCIUM 20 MG TABLET PO SCH (20:33)
[2017-01-31] MEDS: FAMOTIDINE 20 MG TABLET. PO SCH (20:34)
[2017-02-01 03:15] VITALS: BP 107/44
[2017-02-01 07:15] VITALS: BP 113/66
[2017-02-01] MEDS ORDERED: FUROSEMIDE 40 MG TABLET. PO SCH (09:00)
[2017-02-01] MEDS: ASPIRIN CHEWABLE 81 MG TABLET. PO SCH (09:17)
[2017-02-01] MEDS: CLOPIDOGREL BISULFATE 75 MG TABLET PO SCH (09:17)
[2017-02-01] MEDS: CIPROFLOXACIN 400MG PREMIX 200 ML IV SCH ×2 (09:19→21:32)
--- NOTE | 2017-02-01 09:23 | PDOC ---
Provider Note Provider Note pain less, no temp, less tender- hb lower so repeat- same hilario, terell cardoza in am MILENA MCMILLAN MD Feb 01, 2017 09:23
[2017-02-01] MEDS ORDERED: FUROSEMIDE 40 MG TABLET. PO ONE (09:30)
[2017-02-01] MEDS: METOPROLOL TART IMMED RELEASE 25 MG TABLET. PO SCH ×2 (09:30→21:10)
[2017-02-01 10:11] LABS: HEMOGLOBIN 9.1 g/dL (12.0-15.5); RED BLOOD COUNT 3.26 x10^6/uL (3.50-5.40); RED CELL DISTRIBUTION WIDTH 19.1 % (11.5-14.5); WHITE BLOOD COUNT 5.2 x10^3/uL (4.0-11.0)
[2017-02-01 11:20] VITALS: BP 126/56
[2017-02-01 15:17] VITALS: BP 109/61
[2017-02-01 19:00] VITALS: BP 105/59
[2017-02-01] MEDS: FAMOTIDINE 20 MG TABLET. PO SCH (21:11)
[2017-02-01] MEDS: ATORVASTATIN CALCIUM 20 MG TABLET PO SCH (21:11)
[2017-02-01 23:00] VITALS: BP 105/53
[2017-02-02 03:00] VITALS: BP 97/50
[2017-02-02 07:00] VITALS: BP 127/54
[2017-02-02] MEDS: METOPROLOL TART IMMED RELEASE 25 MG TABLET. PO SCH (08:02)
--- NOTE | 2017-02-02 08:30 | DISCH ---
DISCHARGE INSTRUCTIONS Condition on Discharge Condition on Discharge: Stable Activity After Discharge Activity Instructions for Disc: No restrictions Diet after Discharge Diet after Discharge: Diabetic No Calorie Level Follow-Up Follow up with: MILENA Hedrick MD Feb 02, 2017 08:30
--- NOTE | 2017-02-02 08:34 | PDOC ---
Provider Note Provider Note [id number] MILENA MCMILLAN MD Feb 02, 2017 08:34
[2017-02-02] MEDS: CIPROFLOXACIN 400MG PREMIX 200 ML IV SCH (09:00)
[2017-02-02] MEDS: CLOPIDOGREL BISULFATE 75 MG TABLET PO SCH (09:18)
[2017-02-02] MEDS: ASPIRIN CHEWABLE 81 MG TABLET. PO SCH (09:18)
[2017-02-02 11:00] VITALS: BP 103/55
--- NOTE | 2017-02-02 19:24 | DS ---
DATE OF DISCHARGE: 02/02/2017 HOSPITAL SUMMARY: The patient came in with left upper quadrant and left flank pain and was found to have mild diverticulitis at the sigmoid colon on CT scan with no other significant abnormalities except for ventral hernia without small bowel obstruction. The CT scan of her lumbar spine showed degenerative changes, but no acute changes. Chemistry profile was normal. CBC showed hemoglobin at 9.6 which is stable for her as an outpatient and remained stable, last value being 9.1. Urinalysis was clear. Urine culture grew only urogenital jacqueline. She was treated with IV Flagyl and Cipro and her pain is largely dissipated and feeling much better. She is afebrile, eating a normal diet and able to be transferred to outpatient care. FINAL DIAGNOSES: 1. Acute sigmoid diverticulitis. 2. Anemia of chronic disease. OPERATIONS, PROCEDURES, COMPLICATIONS, CONSULTATIONS: None. DISPOSITION: Flagyl 500 mg twice a day for 1 week, Cipro 500 mg twice a day for 1 week. Rest of home meds remain the same. She is on iron t.i.d. to counteract the effects of aspirin and Plavix and she will see us in the office in 1 week for repeat hemoglobin and follow up. MILENA MCMILLAN MD DR: FATEMEH/suleman JOB#: [id number] / [id number]
[2017-02-23] MEDS ORDERED: FURO-68 PO (22:29)
[2017-02-23] MEDS ORDERED: POTASSIUM CHLO10 MEQ PO (22:29)
[2017-02-23] MEDS ORDERED: FERR-26 PO (22:30)
[2017-03-01] MEDS ORDERED: METR500T PO (15:13)
[2017-03-01] MEDS ORDERED: CEFP200T PO (15:13)
== END 2017-02-02 11:30 | disposition home or self-care (01) | DRG 392 ==
LOC: ER 18:24 → 2 NORTH 20:50 → 4 NORTH 01-31 14:45
PROVIDERS: ADMIT Family Medicine; ATTEND Family Medicine
DX: K57.20 Diverticulitis of large intestine with perforation and abscess without bleeding (principal); E11.9 Type 2 diabetes mellitus without complications; I11.0 Hypertensive heart disease with heart failure; I50.9 Heart failure, unspecified; D63.8 Anemia in other chronic diseases classified elsewhere; I25.2 Old myocardial infarction; E66.9 Obesity, unspecified; I25.10 Atherosclerotic heart disease of native coronary artery without angina pectoris; M43.16 Spondylolisthesis, lumbar region; M47.816 Spondylosis without myelopathy or radiculopathy, lumbar region; Z90.710 Acquired absence of both cervix and uterus; Z95.5 Presence of coronary angioplasty implant and graft; Z68.35 Body mass index [BMI] 35.0-35.9, adult; M19.90 Unspecified osteoarthritis, unspecified site; Z88.0 Allergy status to penicillin; Z91.041 Radiographic dye allergy status; Z91.040 Latex allergy status; K43.9 Ventral hernia without obstruction or gangrene
CPT/HCPCS: 36415; 74176; 80048; 80053; 81001; 83690; 84484; 85025; 85027; 85610; 85730; 87086; 93005; 96374; 96375; J0744; J2405; J3010; J3490; J7030; 99285-25

== ENCOUNTER 2017-03-09 07:58 | Inpatient (IN) | payer OTHER ==
[~2017-03-09] VITALS: Ht 147.3 cm; Wt 84.4 kg
[~2017-03-09 07:58] MED LIST changes: +ATOR40TA59 PO; +CEFP200T PO; +FERR-26 PO; +FURO-68 PO; +METR500T PO
[2017-03-09] MEDS ORDERED: ONDANSETRON PF 4 MG/2 ML VIAL. IV ONE (08:15)
--- NOTE | 2017-03-09 08:16 | PHYS DOC ---
Past Medical History Past Medical History: Arthritis, CHF, Diabetes-Type II, Hypertension, [place], Other Additional Past Medical Histor: obese, intubated 06/2015 Past Surgical History: Angioplasty, Hysterectomy, Other Additional Past Surgical Histo: hernia x2, CARDIAC STENT Alcohol Use: None Drug Use: None Adult General Chief Complaint Chief Complaint: ABDOMINAL PAIN/Nausea HPI HPI Patient is a 71 year old female who presents with RUQ pain with nausea that started today. This is similar to pain she had last month and found to have a pericolonic abscess that formed required drainage and IV antibiotics. Denies known fevers, no vomiting, no dysuria or change in bowels. Pt completed her outpt abx yesterday. She had a f/u appt with PCP scheduled for today. Review of Systems Review of Systems Constitutional: Denies fever or chills [] Eyes: Denies change in visual acuity, redness, or eye pain [] HENT: Denies nasal congestion or sore throat [] Respiratory: Denies cough or shortness of breath [] Cardiovascular: denies chest pain GI: per hpi : Denies dysuria or hematuria [] Musculoskeletal: Denies back pain or joint pain [] Integument: Denies rash or skin lesions [] Neurologic: Denies headache, focal weakness or sensory changes [] Current Medications Current Medications Current Medications Medications (Trade) Dose Ordered Sig/Michelle Start Time Stop Time Status Last Admin Dose Admin Ceftriaxone Sodium 50 ml @ 100 mls/hr 1X ONCE 03/09/17 09:30 03/09/17 09:55 DC Info (Do NOT chart on this entry -- for MONITORING) 1 each PRN DAILY PRN 03/09/17 08:45 03/11/17 08:44 Iohexol (Omnipaque 300 Mg/ml) 75 ml 1X ONCE 03/09/17 08:45 03/09/17 08:46 DC 03/09/17 08:50 75 ML Ondansetron HCl (Zofran) 4 mg 1X ONCE 03/09/17 08:15 03/09/17 08:16 DC 03/09/17 08:30 4 MG Allergies Allergies Allergies Coded Allergies Type Severity Reaction Last Updated Verified Penicillins Allergy Intermediate 01/06/15 Yes adhesive tape Allergy Intermediate Rash 10/15/15 Yes latex Allergy Intermediate Rash 12/21/14 Yes metformin Adverse Reaction Intermediate nausea/diarrhea 10/15/15 Yes Physical Exam Physical Exam Constitutional: Well developed, well nourished, no acute distress, non-toxic appearance. [] HENT: Normocephalic, atraumatic, bilateral external ears normal, oropharynx moist, no oral exudates, nose normal. [] Eyes: PERRLA, EOMI, conjunctiva normal, no discharge. [] Neck: Normal range of motion, no tenderness, supple, no stridor. [] Cardiovascular:Heart rate regular with regular rhythm Lungs & Thorax: Bilateral breath sounds clear to auscultation , no wheeze or crackles Abdomen: ttp in RUQ and lower abdomen, dressing and mesh over lower abdomen from prior skin graft, no guarding or peritoneal signs. Skin: Warm, dry, no erythema, no rash. [] Back: No tenderness, no CVA tenderness. [] Extremities: No tenderness, no cyanosis, no clubbing, ROM intact, no edema. [] Neurologic: Alert and oriented X 3, normal motor function, normal sensory function, no focal deficits noted. [] Psychologic: Affect normal, judgement normal, mood normal. [] Current Patient Data Vital Signs Vital Signs Date Time Temp Pulse Resp B/P (MAP) Pulse Ox O2 Delivery O2 Flow Rate FiO2 03/09/17 09:48 84 18 74/47 (56) 95 Room Air 03/09/17 08:12 98.1 98.1 Lab Values Laboratory Tests Test 03/09/17 08:10 03/09/17 08:21 03/09/17 08:30 03/09/17 09:02 White Blood Count 7.2 x10^3/uL (4.0-11.0) Red Blood Count 3.67 x10^6/uL (3.50-5.40) Hemoglobin 10.1 g/dL (12.0-15.5) L Hematocrit 31.9 % (36.0-47.0) L Mean Corpuscular Volume 87 fL (79-100) Mean Corpuscular Hemoglobin 28 pg (25-35) Mean Corpuscular Hemoglobin Concent 32 g/dL (31-37) Red Cell Distribution Width 19.2 % (11.5-14.5) H Platelet Count 423 x10^3/uL (140-400) H Neutrophils (%) (Auto) 75 % (31-73) H Lymphocytes (%) (Auto) 15 % (24-48) L Monocytes (%) (Auto) 10 % (0-9) H Eosinophils (%) (Auto) 0 % (0-3) Basophils (%) (Auto) 0 % (0-3) Neutrophils # (Auto) 5.4 x10^3uL (1.8-7.7) Lymphocytes # (Auto) 1.1 x10^3/uL (1.0-4.8) Monocytes # (Auto) 0.7 x10^3/uL (0.0-1.1) Eosinophils # (Auto) 0.0 x10^3/uL (0.0-0.7) Basophils # (Auto) 0.0 x10^3/uL (0.0-0.2) Total Bilirubin 0.3 mg/dL (0.2-1.0) Direct Bilirubin 0.1 mg/dL (0.0-0.2) Aspartate Amino Transferase (AST) 12 U/L (15-37) L Alanine Aminotransferase (ALT) 11 U/L (14-59) L Alkaline Phosphatase 93 U/L (46-116) Total Protein 6.9 g/dL (6.4-8.2) Albumin 2.6 g/dL (3.4-5.0) L Lactic Acid Level 2.2 mmol/L (0.4-2.0) H POC Hemoglobin 11.6 g/dL (12-15) L POC Hematocrit 34 % (36-40) L POC Sodium 136 mmol/L (135-145) POC Potassium 5.3 mmol/L (3.5-5.0) H POC Chloride 103 mmol/L (98-110) POC Total CO2 24 mmol/L (23-32) Anion Gap 15 mmol/L (6-14) H POC Blood Urea Nitrogen 27 mg/dL (8-26) H POC Creatinine 0.9 mg/dL (0.5-1.4) Glucose Level 213 mg/dL (70-99) H POC Ionized Calcium (Eliceo) 1.11 mmol/L (1.13-1.32) L Urine Collection Type Unknown Urine Color Yellow Urine Clarity Clear Urine pH 5.5 Urine Specific [place] 1.015 Urine Protein Negative mg/dL (NEG-TRACE) Urine Glucose (UA) Negative mg/dL (NEG) Urine Ketones (Stick) Negative mg/dL (NEG) Urine Blood Negative (NEG) Urine Nitrite Negative (NEG) Urine Bilirubin Negative (NEG) Urine Urobilinogen Dipstick 0.2 mg/dL (0.2 mg/dL) Urine Leukocyte Esterase Small (NEG) Urine RBC Occ /HPF (0-2) Urine WBC 1-4 /HPF (0-4) Urine Squamous Epithelial Cells Mod /LPF Urine Bacteria Few /HPF (0-FEW) Urine Hyaline Casts Many /HPF Laboratory Tests 03/09/17 08:10 Laboratory Tests 03/09/17 08:30 EKG EKG [] Radiology/Procedures Radiology/Procedures CT abd/pelvis:Indication: Right upper quadrant pain and nausea. Axial imaging through the abdomen and pelvis was performed after the administration of intravenous contrast. Comparison is made with prior CT from 02/24/2017. There is some scarring or atelectasis in the lingula. The liver is unremarkable. Gallbladder is surgically absent. The pancreas and spleen are unremarkable. No adrenal mass is detected. Kidneys are unremarkable. Aorta is heavily calcified but nonaneurysmal. A large ventral hernia containing bowel loops is again noted. The gas and fluid collection identified previously in the anterior abdomen to the right of midline persists and is similar to prior study measuring 6.4 x 4.9 cm. No new collection is identified. The bladder is decompressed. Impression: Stable gas and fluid collection in the anterior right abdomen when compared with prior CT from 02/24/2017. Course & Med Decision Making Course & Med Decision Making Pertinent Labs and Imaging studies reviewed. (See chart for details) pt declined pain medications, given IV zofran. I reviewed pt's medical record. paper cone grader show 93 bpm, sinus, no dysrhythmia noted. Continuous pulseox shows 96% on room air with good waveform. labs/ua ordered, plan to performed abd/ pelvis to check for reoccurrence of abscess or other infectious process. The Ct shows ongoing abscess, similar to before it was drained last month, confirmed with talking with radiologist, Dr. Funez. Pt received IV fluids, I discussed with Dr. Bourgeois, who will write for the antibiotics. Pt admitted to Dr. Aki Koch Disclaimer Zee Disclaimer This electronic medical record was generated, in whole or in part, using a voice recognition dictation system. Departure Departure Impression: Primary Impression: Abdominal abscess Additional Impression: Abdominal pain Disposition: ADMITTED INPATIENT Admitting Physician: Milena Mcmillan Condition: STABLE Referrals: MILENA MCMILLAN MD (PCP) Problem Qualifiers GAY COLEMAN MD Mar 09, 2017 08:16
[2017-03-09 08:25] LABS: BASO % 0 % (0-3); EOS % 0 % (0-3); HEMATOCRIT 31.9 % (36.0-47.0); HEMOGLOBIN 10.1 g/dL (12.0-15.5); LYMPH # 1.1 x10^3/uL (1.0-4.8); LYMPH % 15 % (24-48); MEAN CORPUSCULAR HEMOGLOBIN 28 pg (25-35); MEAN CORPUSCULAR HGB CONC 32 g/dL (31-37); MEAN CORPUSCULAR VOLUME 87 fL (79-100); MONO % 10 % (0-9); NEUT % 75 % (31-73); PLATELET COUNT 423 x10^3/uL (140-400); RED BLOOD COUNT 3.67 x10^6/uL (3.50-5.40); RED CELL DISTRIBUTION WIDTH 19.2 % (11.5-14.5); WHITE BLOOD COUNT 7.2 x10^3/uL (4.0-11.0)
[2017-03-09 08:32] LABS: ALBUMIN 2.6 g/dL (3.4-5.0); DIRECT BILIRUBIN 0.1 mg/dL (0.0-0.2); TOTAL BILIRUBIN 0.3 mg/dL (0.2-1.0); TOTAL PROTEIN 6.9 g/dL (6.4-8.2)
[2017-03-09 08:36] LABS: POTASSIUM ISTAT 5.3 mmol/L (3.5-5.0)
[2017-03-09] MEDS ORDERED: CONTRAST GIVEN MC PRN (08:45)
[2017-03-09] MEDS ORDERED: IOHEXOL 300 MG/ML 75 ML VIAL IV ONE (08:45)
[2017-03-09 09:17] LABS: BILIRUBIN,URINE NEGATIVE (NEG); GLUCOSE,URINE NEGATIVE (NEG); NITRITE,URINE NEGATIVE (NEG); PH,URINE 5.5; PROTEIN,URINE NEGATIVE (NEG-TRACE); UROBILINOGEN,URINE 0.2 mg/dL (0.2 mg/dL)
--- NOTE | 2017-03-09 09:21 | RAD ---
Indication: Right upper quadrant pain and nausea. Axial imaging through the abdomen and pelvis was performed after the administration of intravenous contrast. Comparison is made with prior CT from 02/24/2017. There is some scarring or atelectasis in the lingula. The liver is unremarkable. Gallbladder is surgically absent. The pancreas and spleen are unremarkable. No adrenal mass is detected. Kidneys are unremarkable. Aorta is heavily calcified but nonaneurysmal. A large ventral hernia containing bowel loops is again noted. The gas and fluid collection identified previously in the anterior abdomen to the right of midline persists and is similar to prior study measuring 6.4 x 4.9 cm. No new collection is identified. The bladder is decompressed. Impression: Stable gas and fluid collection in the anterior right abdomen when compared with prior CT from 02/24/2017. PQRS Compliance Statement: One or more of the following individualized dose reduction techniques were utilized for this examination: 1. Automated exposure control 2. Adjustment of the mA and/or kV according to patient size 3. Use of iterative reconstruction technique
[2017-03-09 09:41] LABS: BACTERIA,URINE FEW /HPF (0-FEW); RBC,URINE OCC /HPF (0-2); SQUAMOUS EPITHELIAL CELL,UR MOD /LPF
[2017-03-09] MEDS ORDERED: IV NORMAL SALINE 1000ML BAG 1,000 ML IV ONE (10:00)
[2017-03-09] MEDS ORDERED: ONDANSETRON PF 4 MG/2 ML VIAL. IV PRN (10:30)
[2017-03-09 11:33] VITALS: BP 104/67
--- NOTE | 2017-03-09 11:58 | PDOC ---
Infectious Disease Note Subjective Subjective Pt known to us, returned in a wk , has abd abscess, with bacteroides and strep anginosus. Had abdominal pain, no fever, some nausea, no diarrhea. Had plastic surgery done with [facility] recently. Recent abscess drainage done on 02/26 ROS ROS GEN: Denies fevers, chills, sweats HEENT: Denies blurred vision, sore throat CV: Denies chest pain RESP: Denies shortness of air, cough GI: Denies n/v/d NEURO: Denies confusion, dizziness MSK: Denies weakness, joint pain/swelling Vital Sign Vital Signs Vital Signs Date Time Temp Pulse Resp B/P (MAP) Pulse Ox O2 Delivery O2 Flow Rate FiO2 03/09/17 10:36 84 18 98/60 (73) 95 Room Air 03/09/17 08:12 98.1 98.1 Physical Exam PHYSICAL EXAM GENERAL: NAD, Alert HEENT: PERRL, OC/OP NECK: Supple, no JVD, no LN LUNGS: Clear HEART: S1S2, no gallop, no murmur ABD: Soft, NT, no organomegaly, no rebound,, large healed scar, small wound on left lower area, CLIFFORD drain had been removed EXT: No edema, no cyanosis CONCRETE PAVER: Alert, oriented x 3, no focal neurologic deficit SKIN: No rash IV: ok Labs Lab Laboratory Tests Test 03/09/17 08:10 03/09/17 08:21 03/09/17 08:30 03/09/17 09:02 White Blood Count 7.2 x10^3/uL (4.0-11.0) Red Blood Count 3.67 x10^6/uL (3.50-5.40) Hemoglobin 10.1 g/dL (12.0-15.5) Hematocrit 31.9 % (36.0-47.0) Mean Corpuscular Volume 87 fL (79-100) Mean Corpuscular Hemoglobin 28 pg (25-35) Mean Corpuscular Hemoglobin Concent 32 g/dL (31-37) Red Cell Distribution Width 19.2 % (11.5-14.5) Platelet Count 423 x10^3/uL (140-400) Neutrophils (%) (Auto) 75 % (31-73) Lymphocytes (%) (Auto) 15 % (24-48) Monocytes (%) (Auto) 10 % (0-9) Eosinophils (%) (Auto) 0 % (0-3) Basophils (%) (Auto) 0 % (0-3) Neutrophils # (Auto) 5.4 x10^3uL (1.8-7.7) Lymphocytes # (Auto) 1.1 x10^3/uL (1.0-4.8) Monocytes # (Auto) 0.7 x10^3/uL (0.0-1.1) Eosinophils # (Auto) 0.0 x10^3/uL (0.0-0.7) Basophils # (Auto) 0.0 x10^3/uL (0.0-0.2) Total Bilirubin 0.3 mg/dL (0.2-1.0) Direct Bilirubin 0.1 mg/dL (0.0-0.2) Aspartate Amino Transf (AST/SGOT) 12 U/L (15-37) Alanine Aminotransferase (ALT/SGPT) 11 U/L (14-59) Alkaline Phosphatase 93 U/L (46-116) Total Protein 6.9 g/dL (6.4-8.2) Albumin 2.6 g/dL (3.4-5.0) Lactic Acid Level 2.2 mmol/L (0.4-2.0) Bedside Hemoglobin 11.6 g/dL (12-15) Bedside Hematocrit 34 % (36-40) Bedside Sodium 136 mmol/L (135-145) Bedside Potassium 5.3 mmol/L (3.5-5.0) Bedside Chloride 103 mmol/L (98-110) Bedside Total CO2 24 mmol/L (23-32) Anion Gap 15 mmol/L (6-14) Bedside Blood Urea Nitrogen 27 mg/dL (8-26) Bedside Creatinine 0.9 mg/dL (0.5-1.4) Glucose Level 213 mg/dL (70-99) Bedside Ionized Calcium (Eliceo) 1.11 mmol/L (1.13-1.32) Urine Collection Type Unknown Urine Color Yellow Urine Clarity Clear Urine pH 5.5 Urine Specific [place] 1.015 Urine Protein Negative mg/dL (NEG-TRACE) Urine Glucose (UA) Negative mg/dL (NEG) Urine Ketones (Stick) Negative mg/dL (NEG) Urine Blood Negative (NEG) Urine Nitrite Negative (NEG) Urine Bilirubin Negative (NEG) Urine Urobilinogen Dipstick 0.2 mg/dL (0.2 mg/dL) Urine Leukocyte Esterase Small (NEG) Urine RBC Occ /HPF (0-2) Urine WBC 1-4 /HPF (0-4) Urine Squamous Epithelial Cells Mod /LPF Urine Bacteria Few /HPF (0-FEW) Urine Hyaline Casts Many /HPF Objective Assessment Abdominal abscess Ventral hernia DM HTN Plan Plan of Care meropenem supportive care SANDRA RODNEY MD Mar 09, 2017 11:58
[2017-03-09 15:00] VITALS: BP 94/60
[2017-03-09] MEDS: MEROPENEM 500 MG in IV NORMAL SALINE 50ML 50 ML IV SCH ×2 (15:46→22:59)
[2017-03-09 19:00] VITALS: BP 124/54
[2017-03-09] MEDS: ACETAMINOPHEN 325 MG TABLET. PO PRN (21:30)
[2017-03-09 23:00] VITALS: BP 94/50
[2017-03-10 03:40] VITALS: BP 91/46
[2017-03-10] MEDS: MEROPENEM 500 MG in IV NORMAL SALINE 50ML 50 ML IV SCH ×3 (06:07→22:29)
[2017-03-10 07:00] VITALS: BP 95/52
[2017-03-10 11:35] VITALS: BP 104/54
--- NOTE | 2017-03-10 12:23 | PDOC ---
Infectious Disease Note Subjective Subjective Feeling better, abdominal pain settled down Tolerating clear liquids, but hungry wanting more solid No fever since last night ROS ROS GEN: Denies chills, sweats CV: Denies chest pain RESP: Denies shortness of air, cough GI: Denies n/v/d Vital Sign Vital Signs Vital Signs Date Time Temp Pulse Resp B/P (MAP) Pulse Ox O2 Delivery O2 Flow Rate FiO2 03/10/17 11:35 99.8 103 22 104/54 (71) 95 Room Air 99.8 Physical Exam PHYSICAL EXAM GENERAL: Sitting on side of bed, relaxed appearance HEENT: OC/OP clear, dentures NECK: Supple LUNGS: Clear HEART: S1S2, no gallop, no murmur appreciated ABD: Obese, soft, NT, large scar; small LLQ wound, no drainage EXT: No edema, no cyanosis FIREFIGHTER: Alert, oriented x 3, no focal neurologic deficit SKIN: No rash IV: ok Labs Lab Laboratory Tests Test 03/09/17 17:00 03/09/17 17:55 03/09/17 20:30 03/09/17 21:10 Glucose (Fingerstick) 109 mg/dL (70-99) 240 mg/dL (70-99) 229 mg/dL (70-99) Lactic Acid Level 2.2 mmol/L (0.4-2.0) Test 03/10/17 08:02 Glucose (Fingerstick) 202 mg/dL (70-99) CT ABD PELV W/ IV CONTRST ONLY There is some scarring or atelectasis in the lingula. The liver is unremarkable. Gallbladder is surgically absent. The pancreas and spleen are unremarkable. No adrenal mass is detected. Kidneys are unremarkable. Aorta is heavily calcified but nonaneurysmal. A large ventral hernia containing bowel loops is again noted. The gas and fluid collection identified previously in the anterior abdomen to the right of midline persists and is similar to prior study measuring 6.4 x 4.9 cm. No new collection is identified. The bladder is decompressed. Impression: Stable gas and fluid collection in the anterior right abdomen when compared with prior CT from 02/24/2017. Micro BLOOD CULTURE Preliminary NO GROWTH AFTER 1 DAY Objective Assessment Abdominal abscess, measuring 6.4 x 4.9 cm. h/o Strep anginosis and Bacteroides Ventral hernia DM HTN PCN allergy/amox also - hives and swelling Plan Plan of Care meropenem supportive care Await IR eval D/w Dr. Prabhakar Attending Co-Sign Attending Co-Sign The patient was seen and interviewed as well as examined at the bedside. The chart was reviewed. The case was discussed. Agree with the plan of care. SERAFIN MOTT APRN Mar 10, 2017 12:23 TERRA BEACH MD Mar 10, 2017 14:49
--- NOTE | 2017-03-10 14:43 | PDOC ---
Provider Note Provider Note [id number] MILENA MCMILLAN MD Mar 10, 2017 14:43
[2017-03-10 15:00] VITALS: BP 95/49
[2017-03-10] MEDS ORDERED: METOPROLOL TART IMMED RELEASE 25 MG TABLET. PO SCH (15:00)
[2017-03-10] MEDS: CLOPIDOGREL BISULFATE 75 MG TABLET PO SCH (15:59)
[2017-03-10] MEDS: FERROUS SULFATE 325 MG TABLET. PO SCH (15:59)
[2017-03-10] MEDS: ASPIRIN CHEWABLE 81 MG TABLET. PO SCH (15:59)
[2017-03-10] MEDS: DICLOFENAC SODIUM 25 MG TABLET.DR PO SCH (16:31)
--- NOTE | 2017-03-10 17:00 | HP ---
ADMIT DATE: 03/09/2017 CHIEF COMPLAINT: Abdominal pain. HISTORY OF PRESENT ILLNESS: A 71-year-old white female, was in the hospital [place] last week with her abdominal wall abscess that was drained by Interventional Radiology and a drain was in place for several days. She grew out anaerobes and Strep viridans and was placed on Flagyl and Omnicef, which she took until the day prior to admission. Today, she ran out of the medicine, the pain increased and she came to the Emergency Room and was found to have the same sized abdominal wall abscess that she had had before. She is back on IV Merrem now and is more comfortable. PAST MEDICAL HISTORY: She has had extensive plastic surgery and skin graft in [facility] and is followed by them monthly. Her skin graft has largely been a success over the last several months. ALLERGIES: LISTED TO PENICILLIN AND METFORMIN. PAST MEDICAL HISTORY: She is a controlled diabetic, has a history of coronary artery disease and has stents in place. MEDICATIONS: Takes aspirin and Plavix as well. SOCIAL HISTORY: Nonsmoker. . Nondrinker. Not employed. FAMILY HISTORY: Unremarkable. REVIEW OF SYSTEMS: No other complaints. OBJECTIVE: ENT: All within normal limits. NECK: No masses, nodes or bruits. LUNGS: Clear. CARDIOVASCULAR: Regular rate. No irregular beat or tachycardia. ABDOMEN: Tender in the right lower quadrant in the area of the abdominal wall abscess. Skin is well healed with some small opening into the anteromedial side with a skin graft, but no drainage or obvious fistula is noted. EXTREMITIES: Unremarkable. Good pedal pulses. NEUROLOGIC: Physiologic. ASSESSMENT: Persistent abdominal wall abscess with anaerobes and Strep viridans present despite antibiotic therapy and interventional drainage. PLAN: We will ask IR to place another drain and continue to drain this. She may need to take medication with the drain in place until such time that she sees [facility] surgeons in 2 weeks to consider more aggressive surgical intervention. Discussed with Dr. Thompson and we will continue meropenem for now. MILENA MCMILLAN MD DR: FATEMEH/suleman JOB#: [id number] / [id number]
[2017-03-10 19:00] VITALS: BP 68/42
[2017-03-10] MEDS ORDERED: IV NORMAL SALINE 1000ML BAG 1,000 ML IV ONE (21:00)
[2017-03-10] MEDS: FAMOTIDINE 20 MG TABLET. PO SCH (21:26)
[2017-03-10 23:00] VITALS: BP 95/39
[2017-03-11 03:10] VITALS: BP 81/43
[2017-03-11] MEDS: MEROPENEM 500 MG in IV NORMAL SALINE 50ML 50 ML IV SCH ×3 (06:17→21:18)
[2017-03-11 07:00] VITALS: BP 94/43
[2017-03-11] MEDS: FERROUS SULFATE 325 MG TABLET. PO SCH (08:19)
[2017-03-11] MEDS: ASPIRIN CHEWABLE 81 MG TABLET. PO SCH (08:19)
[2017-03-11] MEDS: CLOPIDOGREL BISULFATE 75 MG TABLET PO SCH (08:19)
[2017-03-11] MEDS: DICLOFENAC SODIUM 25 MG TABLET.DR PO SCH (08:20)
--- NOTE | 2017-03-11 09:09 | PDOC ---
Provider Note Provider Note bp was lower, saline given, metop held as was given in error- no more temp on merrem, cults neg so far- IR consult pending re drain placement, may need laparascopic intervention re persistance but will need to be done at [facility] re her hx MILENA MCMILLAN MD Mar 11, 2017 09:09
--- NOTE | 2017-03-11 10:43 | PDOC ---
Infectious Disease Note Subjective Subjective Feeling ok, Ate breakfast except for the eggs. Doesn't like them No fever last 24 hours ROS ROS GEN: Denies chills CV: Denies chest pain RESP: Denies shortness of air, cough GI: Denies n/v/d Vital Sign Vital Signs Vital Signs Date Time Temp Pulse Resp B/P (MAP) Pulse Ox O2 Delivery O2 Flow Rate FiO2 03/11/17 08:00 Room Air 03/11/17 07:00 97.7 95 18 94/43 (60) 95 97.7 Physical Exam PHYSICAL EXAM GENERAL: Up in the chair, working on cross puzzles. Looks well Oc/Op - clear LUNGS: Clear HEART: S1S2, no gallop, no murmur appreciated ABD: Obese, soft, NT, large scar/flap; small LLQ wound, no redness or drainage EXT: No edema, no cyanosis MANAGER NC: Alert, oriented x 3, no focal neurologic deficit SKIN: No rash Labs Lab Laboratory Tests Test 03/10/17 11:14 03/10/17 16:22 03/10/17 21:31 03/11/17 07:21 Glucose (Fingerstick) 180 mg/dL (70-99) 154 mg/dL (70-99) 159 mg/dL (70-99) 165 mg/dL (70-99) Micro BLOOD CULTURE Preliminary NO GROWTH to date Objective Assessment Abdominal abscess, measuring 6.4 x 4.9 cm. Clinically better h/o Strep anginosis and Bacteroides Ventral hernia DM HTN PCN allergy/amox also - hives and swelling Plan Plan of Care meropenem Labs in am Await EUGENE regan Attending Co-Sign Attending Co-Sign The patient was seen and interviewed as well as examined at the bedside. The chart was reviewed. The case was discussed. Agree with the plan of care. SERAFIN MOTT APRN Mar 11, 2017 10:43 TERRA BEACH MD Mar 11, 2017 13:16
[2017-03-11 10:55] VITALS: BP 103/54
[2017-03-11] MEDS: GLIMEPIRIDE 2 MG TABLET. PO SCH (15:22)
[2017-03-11 15:33] VITALS: BP 100/55
[2017-03-11 19:00] VITALS: BP 101/53
[2017-03-11] MEDS: FAMOTIDINE 20 MG TABLET. PO SCH (21:18)
[2017-03-11 23:00] VITALS: BP 81/38
[2017-03-12] VITALS (9 sets, daily range): BP systolic 90–127; BP diastolic 39–67
[2017-03-12 05:46] LABS: HEMATOCRIT 25.9 % (36.0-47.0); HEMOGLOBIN 8.2 g/dL (12.0-15.5); RED BLOOD COUNT 2.94 x10^6/uL (3.50-5.40); RED CELL DISTRIBUTION WIDTH 18.5 % (11.5-14.5); WHITE BLOOD COUNT 5.7 x10^3/uL (4.0-11.0)
[2017-03-12] MEDS: MEROPENEM 500 MG in IV NORMAL SALINE 50ML 50 ML IV SCH ×3 (06:18→22:02)
[2017-03-12 06:23] LABS: CALCIUM 8.6 mg/dL (8.5-10.1); GFR 54.7
--- NOTE | 2017-03-12 08:35 | PDOC ---
Provider Note Provider Note no temp, bp still low- hb down 8.7, will follow- exam and pain same, IR to see today re drain placement, cont merrem for now MILENA MCMILLAN MD Mar 12, 2017 08:35
[2017-03-12] MEDS: DICLOFENAC SODIUM 25 MG TABLET.DR PO SCH (09:00)
[2017-03-12] MEDS: ASPIRIN CHEWABLE 81 MG TABLET. PO SCH (09:00)
[2017-03-12] MEDS: CLOPIDOGREL BISULFATE 75 MG TABLET PO SCH (09:00)
[2017-03-12] MEDS: FERROUS SULFATE 325 MG TABLET. PO SCH (09:39)
[2017-03-12] MEDS: GLIMEPIRIDE 2 MG TABLET. PO SCH (09:44)
[2017-03-12] MEDS ORDERED: LIDOCAINE 1% / SOD BICARB 8.4% 20 ML VIAL. IJ ONE ×2 (13:05→13:30)
[2017-03-12] MEDS ORDERED: MIDAZOLAM HCL/PF 2 MG/2 ML VIAL. ONE (13:20)
[2017-03-12] MEDS ORDERED: fentaNYL PF VIAL 100 MCG/2 ML VIAL ONE (13:20)
[2017-03-12] MEDS ORDERED: FLUMAZENIL 0.5 MG/5 ML VIAL. IV ONE (13:20)
[2017-03-12] MEDS ORDERED: NALOXONE 0.4 MG/ML VIAL. ONE (13:20)
[2017-03-12] MEDS ORDERED: fentaNYL PF VIAL 100 MCG/2 ML VIAL IV ONE (13:30)
[2017-03-12] MEDS ORDERED: MIDAZOLAM HCL/PF 2 MG/2 ML VIAL. IV ONE (13:30)
--- NOTE | 2017-03-12 14:46 | PDOC ---
Infectious Disease Note Subjective Subjective feeling good, had drain done ROS ROS GEN: Denies fevers, chills, sweats HEENT: Denies blurred vision, sore throat CV: Denies chest pain RESP: Denies shortness of air, cough GI: Denies n/v/d NEURO: Denies confusion, dizziness MSK: Denies weakness, joint pain/swelling Vital Sign Vital Signs Vital Signs Date Time Temp Pulse Resp B/P (MAP) Pulse Ox O2 Delivery O2 Flow Rate FiO2 03/12/17 13:50 18 Room Air 03/12/17 13:36 94 98 2.0 03/12/17 11:00 97.9 98/59 (72) 97.9 Physical Exam PHYSICAL EXAM GENERAL: NAD, Alert HEENT: PERRL, OC/OP NECK: Supple, no JVD, no LN LUNGS: Clear HEART: S1S2, no gallop, no murmur ABD: Soft, NT, no organomegaly, no rebound EXT: No edema, no cyanosis RECYCLING SORTER: Alert, oriented x 3, no focal neurologic deficit SKIN: No rash IV: ok Labs Lab Laboratory Tests Test 03/11/17 16:13 03/11/17 21:57 03/12/17 05:02 03/12/17 05:12 Glucose (Fingerstick) 165 mg/dL (70-99) 112 mg/dL (70-99) White Blood Count 5.7 x10^3/uL (4.0-11.0) Red Blood Count 2.94 x10^6/uL (3.50-5.40) Hemoglobin 8.2 g/dL (12.0-15.5) Hematocrit 25.9 % (36.0-47.0) Mean Corpuscular Volume 88 fL (79-100) Mean Corpuscular Hemoglobin 28 pg (25-35) Mean Corpuscular Hemoglobin Concent 32 g/dL (31-37) Red Cell Distribution Width 18.5 % (11.5-14.5) Platelet Count 301 x10^3/uL (140-400) Sodium Level 138 mmol/L (136-145) Potassium Level 4.0 mmol/L (3.5-5.1) Chloride Level 105 mmol/L (98-107) Carbon Dioxide Level 24 mmol/L (21-32) Anion Gap 9 (6-14) Blood Urea Nitrogen 20 mg/dL (7-20) Creatinine 1.0 mg/dL (0.6-1.0) Estimated GFR (Cockcroft-Gault) 54.7 Glucose Level 103 mg/dL (70-99) Calcium Level 8.6 mg/dL (8.5-10.1) Test 03/12/17 07:10 03/12/17 11:21 Glucose (Fingerstick) 124 mg/dL (70-99) 177 mg/dL (70-99) Objective Assessment Abdominal abscess Ventral hernia DM HTN Plan Plan of Care meropenem Labs in [facility],SANDRA Turner MD Mar 12, 2017 14:46
--- NOTE | 2017-03-12 15:13 | RAD ---
CT-guided drainage of intra-abdominal abscess 03/12/2017 Indication: Recurrent abdominal abscess Discussion: The risks and benefits of the procedure were discussed the patient. Informed consent was obtained. A timeout procedure was performed. The patient was brought to the CT scanner and placed in the left lateral decubitus position. Imaging was performed redemonstrating a recurrent abscess in the inferior abdominal wall. The patient has significant diastases of the rectus musculature with loss of abdominal domain. The abscess was reidentified under CT guidance. A site for skin entry was selected. 1% lidocaine was administered for local anesthesia. A 17-gauge needle was advanced into the collection under intermittent CT guidance. A 35 guidewire was advanced into the collection which was confirmed by CT. Over this wire following dilatation a 10 Khmer locking drainage catheter was advanced into the collection. Aspirate was obtained which was sent for Gram stain and culture. The catheter was left to CLIFFORD bulb suction. A sterile dressing was applied. No immediate complications were identified. The procedure was performed under conscious sedation including continuous cardiopulmonary monitoring via a dedicated sedation nurse. Sedation time: 30 minutes Impression: CT-guided drainage of intra-abdominal abscess.
[2017-03-12] MEDS: HYDROcodone/APAP 7.5/325MG 1 TAB TABLET PO PRN (18:17)
[2017-03-12] MEDS: FAMOTIDINE 20 MG TABLET. PO SCH (20:34)
[2017-03-12] MEDS: LACTOBACILLUS RHAMNOSUS GG 1 CAPSULE. PO SCH (20:34)
[2017-03-13] VITALS (7 sets, daily range): BP systolic 97–117; BP diastolic 53–75
[2017-03-13 05:30] LABS: HEMATOCRIT 24.3 % (36.0-47.0); HEMOGLOBIN 7.9 g/dL (12.0-15.5); RED BLOOD COUNT 2.82 x10^6/uL (3.50-5.40); WHITE BLOOD COUNT 4.7 x10^3/uL (4.0-11.0)
[2017-03-13] MEDS: HYDROcodone/APAP 7.5/325MG 1 TAB TABLET PO PRN ×2 (05:50)
[2017-03-13] MEDS: MEROPENEM 500 MG in IV NORMAL SALINE 50ML 50 ML IV SCH ×3 (05:50→21:08)
--- NOTE | 2017-03-13 08:47 | PDOC ---
SUBJECTIVE Subjective Pt says she feels "lousy", admits mild nausea, anorexia and feels unwell. She is having issues with her dietary order - this was discussed with nursing and will hopefully be resolved when pt feels like eating again. OBJECTIVE Objective Reviewed Vital Signs Vital Signs Date Time Temp Pulse Resp B/P (MAP) Pulse Ox O2 Delivery O2 Flow Rate FiO2 03/13/17 07:00 98.1 89 18 117/58 (77) 95 Room Air 98.1 03/13/17 06:50 16 Room Air 03/13/17 05:50 14 Room Air 03/13/17 03:00 97.8 89 24 97/53 (68) 95 Room Air 97.8 03/13/17 00:29 97.8 93 24 113/66 (82) 95 Room Air 97.8 03/13/17 00:00 14 Room Air 03/12/17 23:00 98.4 91 28 90/43 (59) 94 Room Air 98.4 03/12/17 19:30 96 03/12/17 19:25 Room Air 03/12/17 19:00 98.6 109 20 106/52 (70) 95 Room Air 98.6 03/12/17 18:17 16 Room Air 03/12/17 15:00 98.9 107 18 110/67 (81) 96 Room Air 98.9 03/12/17 14:20 16 Room Air 03/12/17 13:50 18 Room Air 03/12/17 13:36 94 18 98 Nasal Cannula 2.0 03/12/17 13:31 94 18 98 Nasal Cannula 2.0 03/12/17 13:25 94 18 98 03/12/17 11:00 97.9 90 18 98/59 (72) 96 Room Air 97.9 I & O Reviewed PHYSICAL EXAM Physical Exam NAD RRR CTAB Abd covered in dressings, drain in place with scant purulent drainage (was just drained) No edema ASSESSMENT/PLAN Assessment/Plan Pericolonic abscess (~6x5cm) s/p drain placement 03/12 - grew out bacteroides and strep anginosus last hospitalization DM HTN Cont Meropenem, home meds Zofran PRN Problems: COMMENT Lab Laboratory Tests Test 03/12/17 11:21 03/12/17 16:26 03/12/17 21:09 03/13/17 04:25 Glucose (Fingerstick) 177 mg/dL (70-99) 114 mg/dL (70-99) 153 mg/dL (70-99) White Blood Count 4.7 x10^3/uL (4.0-11.0) Red Blood Count 2.82 x10^6/uL (3.50-5.40) Hemoglobin 7.9 g/dL (12.0-15.5) Hematocrit 24.3 % (36.0-47.0) Mean Corpuscular Volume 86 fL (79-100) Mean Corpuscular Hemoglobin 28 pg (25-35) Mean Corpuscular Hemoglobin Concent 32 g/dL (31-37) Red Cell Distribution Width 19.0 % (11.5-14.5) Platelet Count 314 x10^3/uL (140-400) Test 03/13/17 07:22 Glucose (Fingerstick) 129 mg/dL (70-99) STEPHON BLAND MD Mar 13, 2017 08:46
[2017-03-13] MEDS: LACTOBACILLUS RHAMNOSUS GG 1 CAPSULE. PO SCH ×2 (09:24→21:07)
[2017-03-13] MEDS: CLOPIDOGREL BISULFATE 75 MG TABLET PO SCH (09:24)
[2017-03-13] MEDS: DICLOFENAC SODIUM 25 MG TABLET.DR PO SCH (09:24)
[2017-03-13] MEDS: FERROUS SULFATE 325 MG TABLET. PO SCH (09:24)
[2017-03-13] MEDS: ASPIRIN CHEWABLE 81 MG TABLET. PO SCH (09:24)
[2017-03-13] MEDS: GLIMEPIRIDE 2 MG TABLET. PO SCH (09:25)
--- NOTE | 2017-03-13 11:24 | PDOC ---
Infectious Disease Note Subjective Subjective feeling good,except for some nausea and some sweats, has drain in place no f/c/d/abdo pain ROS ROS GEN: Denies fevers, chills, sweats HEENT: Denies blurred vision, sore throat CV: Denies chest pain RESP: Denies shortness of air, cough GI: Denies v/d NEURO: Denies confusion, dizziness MSK: Denies weakness, joint pain/swelling Vital Sign Vital Signs Vital Signs Date Time Temp Pulse Resp B/P (MAP) Pulse Ox O2 Delivery O2 Flow Rate FiO2 03/13/17 07:00 98.1 89 18 117/58 (77) 95 Room Air 98.1 03/12/17 13:36 2.0 Physical Exam PHYSICAL EXAM GENERAL: NAD, Alert HEENT: PERRL, OC/OP NECK: Supple, no JVD, no LN LUNGS: Clear HEART: S1S2, no gallop, no murmur ABD: Soft, NT, no organomegaly, no rebound,drain in place,draining green colored fluid EXT: No edema, no cyanosis SENIOR GRAPHIC DESIGNER: Alert, oriented x 3, no focal neurologic deficit SKIN: No rash IV: ok Labs Lab Laboratory Tests Test 03/12/17 11:21 03/12/17 16:26 03/12/17 21:09 03/13/17 04:25 Glucose (Fingerstick) 177 mg/dL (70-99) 114 mg/dL (70-99) 153 mg/dL (70-99) White Blood Count 4.7 x10^3/uL (4.0-11.0) Red Blood Count 2.82 x10^6/uL (3.50-5.40) Hemoglobin 7.9 g/dL (12.0-15.5) Hematocrit 24.3 % (36.0-47.0) Mean Corpuscular Volume 86 fL (79-100) Mean Corpuscular Hemoglobin 28 pg (25-35) Mean Corpuscular Hemoglobin Concent 32 g/dL (31-37) Red Cell Distribution Width 19.0 % (11.5-14.5) Platelet Count 314 x10^3/uL (140-400) Test 03/13/17 07:22 Glucose (Fingerstick) 129 mg/dL (70-99) Micro abdo c/s GNR,ID pending Objective Assessment Abdominal abscess s/pd rain Ventral hernia DM HTN Plan Plan of Care continue meropenem f/u labs and c/s HUMAIRA RODNEY MD Mar 13, 2017 11:24
--- NOTE | 2017-03-13 16:09 | RAD ---
2 views of the Chest 03/13/2017 5:18 PM Indication: new onset SOB Comparison: Chest radiograph February 23, 2017 Findings: No pneumothorax, pleural effusion, or acute appearing infiltrate is identified. Possible trace left effusion is seen. Heart size is normal. Aortic and mitral valve calcification again noted. No acute osseous changes are seen. Impression: Possible trace left pleural effusion. Otherwise stable chest
[2017-03-13] MEDS: FAMOTIDINE 20 MG TABLET. PO SCH (21:07)
[2017-03-14 02:53] VITALS: BP 112/62
[2017-03-14] MEDS: MEROPENEM 500 MG in IV NORMAL SALINE 50ML 50 ML IV SCH ×3 (05:32→21:31)
[2017-03-14 07:00] VITALS: BP 119/77
[2017-03-14 07:21] LABS: BASO % 0 % (0-3); EOS % 1 % (0-3); HEMATOCRIT 27.8 % (36.0-47.0); LYMPH # 1.4 x10^3/uL (1.0-4.8); LYMPH % 26 % (24-48); MEAN CORPUSCULAR HEMOGLOBIN 28 pg (25-35); MEAN CORPUSCULAR HGB CONC 32 g/dL (31-37); MEAN CORPUSCULAR VOLUME 87 fL (79-100); MONO % 13 % (0-9); NEUT % 60 % (31-73); PLATELET COUNT 393 x10^3/uL (140-400); RED CELL DISTRIBUTION WIDTH 18.8 % (11.5-14.5); WHITE BLOOD COUNT 5.2 x10^3/uL (4.0-11.0)
[2017-03-14 07:33] LABS: CALCIUM 8.6 mg/dL (8.5-10.1); CREATININE 0.9 mg/dL (0.6-1.0); GFR 61.7; POTASSIUM 3.9 mmol/L (3.5-5.1)
[2017-03-14] MEDS: FERROUS SULFATE 325 MG TABLET. PO SCH (08:38)
[2017-03-14] MEDS: LACTOBACILLUS RHAMNOSUS GG 1 CAPSULE. PO SCH ×2 (08:38→20:38)
[2017-03-14] MEDS: CLOPIDOGREL BISULFATE 75 MG TABLET PO SCH (08:38)
[2017-03-14] MEDS: DICLOFENAC SODIUM 25 MG TABLET.DR PO SCH (08:38)
[2017-03-14] MEDS: ASPIRIN CHEWABLE 81 MG TABLET. PO SCH (08:38)
[2017-03-14] MEDS: FUROSEMIDE 40 MG TABLET. PO SCH (08:38)
[2017-03-14] MEDS: GLIMEPIRIDE 2 MG TABLET. PO SCH (08:39)
--- NOTE | 2017-03-14 09:10 | PDOC ---
SUBJECTIVE Subjective Feeling much better this AM. No longer having SOB like yesterday afternoon. CXR showed minimal pleural effusion, likely due to not having lasix for the last 4 days, this has been resumed. Diet issues have been resolved. OBJECTIVE Objective Reviewed Vital Signs Vital Signs Date Time Temp Pulse Resp B/P (MAP) Pulse Ox O2 Delivery O2 Flow Rate FiO2 03/14/17 07:00 97.6 98 18 119/77 (91) 96 Room Air 97.6 03/14/17 02:53 98.2 98 18 112/62 (79) 94 Room Air 98.2 03/13/17 22:51 98.7 105 18 100/65 (77) 93 Room Air 98.7 03/13/17 19:15 98.1 98 18 114/66 (82) 96 Room Air 98.1 03/13/17 15:32 97.7 98 18 111/75 (87) 94 Room Air 97.7 03/13/17 11:00 98.3 92 18 107/65 (79) 93 Room Air 98.3 I & O Reviewed PHYSICAL EXAM Physical Exam NAD RRR CTAB Abd covered in dressings, drain in place with moderate amount of brown purulent drainage No edema ASSESSMENT/PLAN Assessment/Plan Pericolonic abscess (~6x5cm) s/p drain placement 03/12 - grew out bacteroides and strep anginosus last hospitalization DM HTN Cont Meropenem, home meds Klebsiellae, yeast and enterococcus on culture so far Problems: COMMENT Lab Laboratory Tests Test 03/13/17 11:13 03/13/17 17:01 03/13/17 21:08 03/14/17 05:30 Glucose (Fingerstick) 147 mg/dL (70-99) 118 mg/dL (70-99) 136 mg/dL (70-99) White Blood Count 5.2 x10^3/uL (4.0-11.0) Red Blood Count 3.20 x10^6/uL (3.50-5.40) Hemoglobin 9.0 g/dL (12.0-15.5) Hematocrit 27.8 % (36.0-47.0) Mean Corpuscular Volume 87 fL (79-100) Mean Corpuscular Hemoglobin 28 pg (25-35) Mean Corpuscular Hemoglobin Concent 32 g/dL (31-37) Red Cell Distribution Width 18.8 % (11.5-14.5) Platelet Count 393 x10^3/uL (140-400) Neutrophils (%) (Auto) 60 % (31-73) Lymphocytes (%) (Auto) 26 % (24-48) Monocytes (%) (Auto) 13 % (0-9) Eosinophils (%) (Auto) 1 % (0-3) Basophils (%) (Auto) 0 % (0-3) Neutrophils # (Auto) 3.1 x10^3uL (1.8-7.7) Lymphocytes # (Auto) 1.4 x10^3/uL (1.0-4.8) Monocytes # (Auto) 0.7 x10^3/uL (0.0-1.1) Eosinophils # (Auto) 0.0 x10^3/uL (0.0-0.7) Basophils # (Auto) 0.0 x10^3/uL (0.0-0.2) Sodium Level 140 mmol/L (136-145) Potassium Level 3.9 mmol/L (3.5-5.1) Chloride Level 103 mmol/L (98-107) Carbon Dioxide Level 28 mmol/L (21-32) Anion Gap 9 (6-14) Blood Urea Nitrogen 12 mg/dL (7-20) Creatinine 0.9 mg/dL (0.6-1.0) Estimated GFR (Cockcroft-Gault) 61.7 Glucose Level 88 mg/dL (70-99) Calcium Level 8.6 mg/dL (8.5-10.1) Test 03/14/17 07:39 Glucose (Fingerstick) 116 mg/dL (70-99) STEPHON BLAND MD Mar 14, 2017 09:10
[2017-03-14 11:00] VITALS: BP 102/65
--- NOTE | 2017-03-14 13:01 | PDOC ---
Infectious Disease Note Subjective Subjective feeling better, no n/v/d/f/c /night sweats, has drain in place no abdo pain ROS ROS GEN: Denies fevers, chills, sweats HEENT: Denies blurred vision, sore throat CV: Denies chest pain RESP: Denies shortness of air, cough GI: Denies n/v/d NEURO: Denies confusion, dizziness MSK: Denies weakness, joint pain/swelling Vital Sign Vital Signs Vital Signs Date Time Temp Pulse Resp B/P (MAP) Pulse Ox O2 Delivery O2 Flow Rate FiO2 03/14/17 11:00 98.0 98 18 102/65 (77) 95 Room Air 98.0 Physical Exam PHYSICAL EXAM GENERAL: NAD, Alert HEENT: PERRL, OC/OP NECK: Supple, no JVD, no LN LUNGS: Clear HEART: S1S2, no gallop, no murmur ABD: Soft, drain in place, nontender, no guarding EXT: No edema, no cyanosis AUDIO VIDEO TECH: Alert, oriented x 3, no focal neurologic deficit SKIN: No rash IV: ok Labs Lab Laboratory Tests Test 03/13/17 17:01 03/13/17 21:08 03/14/17 05:30 03/14/17 07:39 Glucose (Fingerstick) 118 mg/dL (70-99) 136 mg/dL (70-99) 116 mg/dL (70-99) White Blood Count 5.2 x10^3/uL (4.0-11.0) Red Blood Count 3.20 x10^6/uL (3.50-5.40) Hemoglobin 9.0 g/dL (12.0-15.5) Hematocrit 27.8 % (36.0-47.0) Mean Corpuscular Volume 87 fL (79-100) Mean Corpuscular Hemoglobin 28 pg (25-35) Mean Corpuscular Hemoglobin Concent 32 g/dL (31-37) Red Cell Distribution Width 18.8 % (11.5-14.5) Platelet Count 393 x10^3/uL (140-400) Neutrophils (%) (Auto) 60 % (31-73) Lymphocytes (%) (Auto) 26 % (24-48) Monocytes (%) (Auto) 13 % (0-9) Eosinophils (%) (Auto) 1 % (0-3) Basophils (%) (Auto) 0 % (0-3) Neutrophils # (Auto) 3.1 x10^3uL (1.8-7.7) Lymphocytes # (Auto) 1.4 x10^3/uL (1.0-4.8) Monocytes # (Auto) 0.7 x10^3/uL (0.0-1.1) Eosinophils # (Auto) 0.0 x10^3/uL (0.0-0.7) Basophils # (Auto) 0.0 x10^3/uL (0.0-0.2) Sodium Level 140 mmol/L (136-145) Potassium Level 3.9 mmol/L (3.5-5.1) Chloride Level 103 mmol/L (98-107) Carbon Dioxide Level 28 mmol/L (21-32) Anion Gap 9 (6-14) Blood Urea Nitrogen 12 mg/dL (7-20) Creatinine 0.9 mg/dL (0.6-1.0) Estimated GFR (Cockcroft-Gault) 61.7 Glucose Level 88 mg/dL (70-99) Calcium Level 8.6 mg/dL (8.5-10.1) Test 03/14/17 10:48 Glucose (Fingerstick) 176 mg/dL (70-99) Micro SPEC #: [id number] TIFFANIE: 03/12/17 STATUS: RES REQ #: [id number] RECD: 03/12/[address] [facility] DR: CRISPIN HEREDIA MD SOURCE: ABDOMEN ENTR: 03/12/17-[address] [facility] [address]: SANDRA RODNEY MD SPDESC: MILENA CASTELLANO MD ORDERED: ANAER-AERO CULT Procedure Result ANAEROBIC-AEROBIC CULTURE PENDING ANAEROBIC RES 1 PENDING AEROBIC CULT Preliminary Preliminary report AEROBIC RES 1 Preliminary Klebsiella pneumoniae Moderate growth AEROBIC RES 2 Preliminary Yeast Moderate growth Request for further identification must be made within 1 week. AEROBIC RES 3 Preliminary Enterococcus species Heavy growth ANTIMICROBIAL SUSCEPTIBILITY Preliminary Comment S = Susceptible; I = Intermediate; R = Resistant P = Positive; N = Negative MICS are expressed in micrograms per mL Antibiotic RSLT#1 RSLT#2 RSLT#3 RSLT#4 Amoxicillin/Clavulanic Acid S Ampicillin R Cefepime S Ceftriaxone S Cefuroxime I Ciprofloxacin S Objective Assessment Abdominal abscess s/p drain c/s + Klebsiella ,KULDEEP pending, yeast and enterococcus amp resistant Ventral hernia DM HTN Plan Plan of Care continue meropenem, will add zyvox f/u labs and c/s HUMAIRA RODNEY MD Mar 14, 2017 13:01
[2017-03-14 15:00] VITALS: BP 113/59
[2017-03-14] MEDS: LINEZOLID 600 MG TABLET PO SCH ×2 (15:22→20:38)
[2017-03-14 19:00] VITALS: BP 119/91
[2017-03-14] MEDS: FAMOTIDINE 20 MG TABLET. PO SCH (20:38)
[2017-03-14 23:00] VITALS: BP 95/51
[2017-03-15 03:00] VITALS: BP 114/63
[2017-03-15] MEDS: MEROPENEM 500 MG in IV NORMAL SALINE 50ML 50 ML IV SCH ×3 (05:45→21:49)
[2017-03-15 07:24] VITALS: BP 116/66
[2017-03-15] MEDS: DICLOFENAC SODIUM 25 MG TABLET.DR PO SCH (08:22)
[2017-03-15] MEDS: LACTOBACILLUS RHAMNOSUS GG 1 CAPSULE. PO SCH ×2 (08:23→21:49)
[2017-03-15] MEDS: FERROUS SULFATE 325 MG TABLET. PO SCH (08:23)
[2017-03-15] MEDS: ASPIRIN CHEWABLE 81 MG TABLET. PO SCH (08:23)
[2017-03-15] MEDS: CLOPIDOGREL BISULFATE 75 MG TABLET PO SCH (08:23)
[2017-03-15] MEDS: GLIMEPIRIDE 2 MG TABLET. PO SCH (08:23)
[2017-03-15] MEDS: LINEZOLID 600 MG TABLET PO SCH ×2 (08:23→21:49)
--- NOTE | 2017-03-15 08:58 | PDOC ---
SUBJECTIVE Subjective Doing well this AM. Drain isn't draining as well, possible that the tubing is clogged. Will discuss with nursing to flush if possible. OBJECTIVE Objective Reviewed Vital Signs Vital Signs Date Time Temp Pulse Resp B/P (MAP) Pulse Ox O2 Delivery O2 Flow Rate FiO2 03/15/17 07:24 98.2 103 16 116/66 (83) 98 Room Air 98.2 03/15/17 03:00 97.5 88 18 114/63 (80) 92 Room Air 97.5 03/14/17 23:00 97.9 83 18 95/51 (66) 90 Room Air 97.9 03/14/17 19:45 Room Air 03/14/17 19:00 98.4 103 18 119/91 (100) 91 Room Air 98.4 03/14/17 15:00 97.6 99 18 113/59 (77) 98 Room Air 97.6 03/14/17 11:00 98.0 98 18 102/65 (77) 95 Room Air 98.0 03/14/17 10:18 Room Air I & O Intake and Output 03/16/17 07:00 Intake Total 180 ml Balance 180 ml Intake Oral 180 ml PHYSICAL EXAM Physical Exam Unchanged from yesterday Drain tubing is filled with brownish purulent fluid ASSESSMENT/PLAN Assessment/Plan Pericolonic abscess (~6x5cm) s/p drain placement 03/12 - bacteroides and strep anginosus last hospitalization; now Klebsiellae, yeast and enterococcus DM HTN Cont Meropenem, add Zyvox per ID; home meds Problems: COMMENT Lab Laboratory Tests Test 03/14/17 10:48 03/14/17 16:54 03/15/17 06:59 Glucose (Fingerstick) 176 mg/dL (70-99) 132 mg/dL (70-99) 121 mg/dL (70-99) STEPHON BLAND MD Mar 15, 2017 08:58
[2017-03-15 10:25] VITALS: BP 109/59
[2017-03-15 14:33] VITALS: BP 119/59
--- NOTE | 2017-03-15 15:59 | PDOC ---
Infectious Disease Note Subjective Subjective feeling better, no n/v/d/f/c /night sweats, has drain in place no abdo pain ROS ROS GEN: Denies fevers, chills, sweats HEENT: Denies blurred vision, sore throat CV: Denies chest pain RESP: Denies shortness of air, cough GI: Denies n/v/d NEURO: Denies confusion, dizziness MSK: Denies weakness, joint pain/swelling Vital Sign Vital Signs Vital Signs Date Time Temp Pulse Resp B/P (MAP) Pulse Ox O2 Delivery O2 Flow Rate FiO2 03/15/17 14:33 98.4 100 16 119/59 (79) 96 Room Air 98.4 Physical Exam PHYSICAL EXAM GENERAL: NAD, Alert HEENT: PERRL, OC/OP NECK: Supple, no JVD, no LN LUNGS: Clear HEART: S1S2, no gallop, no murmur ABD: Soft, NT, no organomegaly, no rebound,there is an area of small sleeve of skin open in the lower aspect of the previous scar, pt says chronic unchanged drain in place RLQ draining greenish brown fluid in bulb EXT: No edema, no cyanosis TEAMCENTER CONSULTANT: Alert, oriented x 3, no focal neurologic deficit SKIN: No rash IV: ok Labs Lab Laboratory Tests Test 03/14/17 16:54 03/14/17 20:32 03/15/17 06:59 03/15/17 10:50 Glucose (Fingerstick) 132 mg/dL (70-99) 160 mg/dL (70-99) 121 mg/dL (70-99) 178 mg/dL (70-99) Micro RUN DATE: 03/15/17 PAGE 1 RUN TIME: 1427 [facility] [address] [place] [address] M.D., Laboratory Tech PATIENT: SAFIA MIRANDA ACCT: [id number] LOC: [address] [place] [address] U : [id number] AGE/SX: 71/F ROOM: 400 REG : 03/09/[address]: MILENA MCMILLAN MD : 1945 BED: 1 DIS : STATUS: ADM IN TLOC: SPEC #: [id number] TIFFANIE: 03/12/17 STATUS: RES REQ #: [id number] RECD: 03/12/[address]: CRISPIN HEREDIA MD SOURCE: ABDOMEN ENTR: 03/12/[address]: SANDRA RODNEY MD [facility]: ABSCESS MILENA MCMILLAN MD ORDERED: ANAER-AERO CULT Procedure Result ANAEROBIC-AEROBIC CULTURE Final Final report ANAEROBIC RES 1 Final Comment No anaerobic growth in 72 hours. AEROBIC CULT Preliminary Preliminary report AEROBIC RES 1 Preliminary Klebsiella pneumoniae Moderate growth AEROBIC RES 2 Preliminary Yeast Moderate growth Request for further identification must be made within 1 week. AEROBIC RES 3 Preliminary Comment Vancomycin-resistant Enterococcus (Enterococcus faecium) Heavy growth AEROBIC RES 4 Preliminary Gram negative rods Moderate growth ANTIMICROBIAL SUSCEPTIBILITY Preliminary Comment CONTINUED ON NEXT PAGE RUN DATE: 03/15/17 PAGE 2 RUN TIME: 1427 [facility] [address] [place] [address] M.D., Laboratory Tech SPEC: [id number] PATIENT: SAFIA MIRANDA [id number] ( Continued) Procedure Result ANTIMICROBIAL SUSCEPTIBILITY Preliminary (continued) S = Susceptible; I = Intermediate; R = Resistant P = Positive; N = Negative MICS are expressed in micrograms per mL Antibiotic RSLT#1 RSLT#2 RSLT#3 RSLT#4 Amoxicillin/Clavulanic Acid S Ampicillin R Cefepime S Ceftriaxone S Cefuroxime I Ciprofloxacin S Ertapenem S Gentamicin S Imipenem S Levofloxacin S Linezolid S Penicillin R Piperacillin R Quinupristin/Dalfopristin S Tetracycline S Tobramycin S Trimethoprim/Sulfa S Vancomycin R Performed at: [address], [place], [place] [id number] Septic Tank Servicer: Asiha Rogers MD, Phone: [phone] Objective Assessment Abdominal abscess s/p drain c/s + Klebsiella and enterococcus amp resistant,VRE yeast likely contaminant Recent abdo abscess with polymicrobial org ,treated Ventral hernia DM HTN Plan Plan of Care continue zyvox and meropenem( pending 4th GNR ID and KULDEEP) f/u labs and c/s HUMAIRA RODNEY MD Mar 15, 2017 15:59
[2017-03-15 19:00] VITALS: BP 102/65
[2017-03-15] MEDS: FAMOTIDINE 20 MG TABLET. PO SCH (21:49)
[2017-03-15 23:00] VITALS: BP 98/59
[2017-03-16 03:00] VITALS: BP 97/60
[2017-03-16 05:42] LABS: BASO % 0 % (0-3); EOS % 1 % (0-3); HEMATOCRIT 25.4 % (36.0-47.0); HEMOGLOBIN 8.2 g/dL (12.0-15.5); LYMPH % 19 % (24-48); MEAN CORPUSCULAR HEMOGLOBIN 28 pg (25-35); MEAN CORPUSCULAR HGB CONC 32 g/dL (31-37); MEAN CORPUSCULAR VOLUME 86 fL (79-100); MONO % 11 % (0-9); NEUT % 69 % (31-73); PLATELET COUNT 336 x10^3/uL (140-400); RED BLOOD COUNT 2.95 x10^6/uL (3.50-5.40); RED CELL DISTRIBUTION WIDTH 19.1 % (11.5-14.5)
[2017-03-16 05:58] LABS: CALCIUM 8.5 mg/dL (8.5-10.1); CREATININE 0.9 mg/dL (0.6-1.0); GFR 61.7; POTASSIUM 3.7 mmol/L (3.5-5.1)
[2017-03-16] MEDS: MEROPENEM 500 MG in IV NORMAL SALINE 50ML 50 ML IV SCH (06:09)
[2017-03-16 07:00] VITALS: BP 108/65
--- NOTE | 2017-03-16 09:06 | PDOC ---
SUBJECTIVE Subjective No concerns this AM. Doing well. Doesn't feel comfortable going home with drain in place as she only has home nursing to help 3 days each week. OBJECTIVE Objective Reviewed. Vital Signs Vital Signs Date Time Temp Pulse Resp B/P (MAP) Pulse Ox O2 Delivery O2 Flow Rate FiO2 03/16/17 07:00 98.0 97 18 108/65 (79) 90 Room Air 98.0 03/16/17 03:00 97.8 85 18 97/60 (72) 95 Room Air 97.8 03/15/17 23:00 97.5 93 18 98/59 (72) 95 Room Air 97.5 03/15/17 20:00 Room Air 03/15/17 19:00 97.9 93 18 102/65 (77) 97 Room Air 97.9 03/15/17 14:33 98.4 100 16 119/59 (79) 96 Room Air 98.4 03/15/17 10:25 98.1 108 16 109/59 (76) 94 Room Air 98.1 I & O Reviewed PHYSICAL EXAM Physical Exam Unchanged from yesterday ASSESSMENT/PLAN Assessment/Plan Pericolonic abscess (~6x5cm) s/p drain placement 03/12 - bacteroides and strep anginosus last hospitalization; now Klebsiellae, yeast and VRE DM HTN Meropenem, Zyvox; abx per ID; cont home meds Problems: COMMENT Lab Laboratory Tests Test 03/15/17 10:50 03/15/17 16:23 03/15/17 21:03 03/16/17 05:25 Glucose (Fingerstick) 178 mg/dL (70-99) 105 mg/dL (70-99) 151 mg/dL (70-99) White Blood Count 5.0 x10^3/uL (4.0-11.0) Red Blood Count 2.95 x10^6/uL (3.50-5.40) Hemoglobin 8.2 g/dL (12.0-15.5) Hematocrit 25.4 % (36.0-47.0) Mean Corpuscular Volume 86 fL (79-100) Mean Corpuscular Hemoglobin 28 pg (25-35) Mean Corpuscular Hemoglobin Concent 32 g/dL (31-37) Red Cell Distribution Width 19.1 % (11.5-14.5) Platelet Count 336 x10^3/uL (140-400) Neutrophils (%) (Auto) 69 % (31-73) Lymphocytes (%) (Auto) 19 % (24-48) Monocytes (%) (Auto) 11 % (0-9) Eosinophils (%) (Auto) 1 % (0-3) Basophils (%) (Auto) 0 % (0-3) Neutrophils # (Auto) 3.4 x10^3uL (1.8-7.7) Lymphocytes # (Auto) 1.0 x10^3/uL (1.0-4.8) Monocytes # (Auto) 0.5 x10^3/uL (0.0-1.1) Eosinophils # (Auto) 0.0 x10^3/uL (0.0-0.7) Basophils # (Auto) 0.0 x10^3/uL (0.0-0.2) Sodium Level 139 mmol/L (136-145) Potassium Level 3.7 mmol/L (3.5-5.1) Chloride Level 104 mmol/L (98-107) Carbon Dioxide Level 26 mmol/L (21-32) Anion Gap 9 (6-14) Blood Urea Nitrogen 13 mg/dL (7-20) Creatinine 0.9 mg/dL (0.6-1.0) Estimated GFR (Cockcroft-Gault) 61.7 Glucose Level 118 mg/dL (70-99) Calcium Level 8.5 mg/dL (8.5-10.1) Test 03/16/17 07:16 Glucose (Fingerstick) 114 mg/dL (70-99) STEPHON BLAND MD Mar 16, 2017 09:06
[2017-03-16] MEDS: ASPIRIN CHEWABLE 81 MG TABLET. PO SCH (09:13)
[2017-03-16] MEDS: LINEZOLID 600 MG TABLET PO SCH ×2 (09:13→21:04)
[2017-03-16] MEDS: LACTOBACILLUS RHAMNOSUS GG 1 CAPSULE. PO SCH ×2 (09:13→21:04)
[2017-03-16] MEDS: DICLOFENAC SODIUM 25 MG TABLET.DR PO SCH (09:14)
[2017-03-16] MEDS: GLIMEPIRIDE 2 MG TABLET. PO SCH (09:14)
[2017-03-16] MEDS: FERROUS SULFATE 325 MG TABLET. PO SCH (09:14)
[2017-03-16] MEDS: FUROSEMIDE 40 MG TABLET. PO SCH (09:14)
[2017-03-16] MEDS: CLOPIDOGREL BISULFATE 75 MG TABLET PO SCH (09:15)
[2017-03-16 11:00] VITALS: BP 95/64
--- NOTE | 2017-03-16 12:22 | PDOC ---
Infectious Disease Note Subjective Subjective feeling better, no n/v/d/f/c /night sweats/abdo pain/sob/cough, has drain in place ROS ROS GEN: Denies fevers, chills, sweats HEENT: Denies blurred vision, sore throat CV: Denies chest pain RESP: Denies shortness of air, cough GI: Denies n/v/d : Denies hematuria, dysuria ENDO: Denies weight changes NEURO: Denies confusion, dizziness MSK: Denies weakness, joint pain/swelling SKIN: Denies rash, pruritus Vital Sign Vital Signs Vital Signs Date Time Temp Pulse Resp B/P (MAP) Pulse Ox O2 Delivery O2 Flow Rate FiO2 03/16/17 08:00 Room Air 2.0 03/16/17 07:00 98.0 97 18 108/65 (79) 90 98.0 Labs Lab Laboratory Tests Test 03/15/17 16:23 03/15/17 21:03 03/16/17 05:25 03/16/17 07:16 Glucose (Fingerstick) 105 mg/dL (70-99) 151 mg/dL (70-99) 114 mg/dL (70-99) White Blood Count 5.0 x10^3/uL (4.0-11.0) Red Blood Count 2.95 x10^6/uL (3.50-5.40) Hemoglobin 8.2 g/dL (12.0-15.5) Hematocrit 25.4 % (36.0-47.0) Mean Corpuscular Volume 86 fL (79-100) Mean Corpuscular Hemoglobin 28 pg (25-35) Mean Corpuscular Hemoglobin Concent 32 g/dL (31-37) Red Cell Distribution Width 19.1 % (11.5-14.5) Platelet Count 336 x10^3/uL (140-400) Neutrophils (%) (Auto) 69 % (31-73) Lymphocytes (%) (Auto) 19 % (24-48) Monocytes (%) (Auto) 11 % (0-9) Eosinophils (%) (Auto) 1 % (0-3) Basophils (%) (Auto) 0 % (0-3) Neutrophils # (Auto) 3.4 x10^3uL (1.8-7.7) Lymphocytes # (Auto) 1.0 x10^3/uL (1.0-4.8) Monocytes # (Auto) 0.5 x10^3/uL (0.0-1.1) Eosinophils # (Auto) 0.0 x10^3/uL (0.0-0.7) Basophils # (Auto) 0.0 x10^3/uL (0.0-0.2) Sodium Level 139 mmol/L (136-145) Potassium Level 3.7 mmol/L (3.5-5.1) Chloride Level 104 mmol/L (98-107) Carbon Dioxide Level 26 mmol/L (21-32) Anion Gap 9 (6-14) Blood Urea Nitrogen 13 mg/dL (7-20) Creatinine 0.9 mg/dL (0.6-1.0) Estimated GFR (Cockcroft-Gault) 61.7 Glucose Level 118 mg/dL (70-99) Calcium Level 8.5 mg/dL (8.5-10.1) Micro RUN DATE: 03/16/17 PAGE 1 RUN TIME: 735 [facility] [address] [place] [address] M.D., Wheat Washer PATIENT: SAFIA MIRANDA Jerry ACCT: [id number] LOC: [address] [place] [address] U : [id number] AGE/SX: 71/F ROOM: 400 REG : 03/09/[address]: MILENA MCMILLAN MD : 1945 BED: 1 DIS : STATUS: ADM IN TLOC: SPEC #: [id number] TIFFANIE: 03/12/17 STATUS: PASHA REQ #: [id number] RECD: 03/12/17 [facility] DR: CRISPIN HEREDIA MD SOURCE: ABDOMEN ENTR: 03/12/[address] [facility] [address]: SANDRA RODNEY MD [facility]: MILENA CASTELLANO MD ORDERED: ANAER-AERO CULT Procedure Result ANAEROBIC-AEROBIC CULTURE Final Final report ANAEROBIC RES 1 Final Comment No anaerobic growth in 72 hours. AEROBIC CULT Final Final report AEROBIC RES 1 Final Klebsiella pneumoniae Moderate growth AEROBIC RES 2 Final Yeast Moderate growth Request for further identification must be made within 1 week. AEROBIC RES 3 Final Comment Vancomycin-resistant Enterococcus (Enterococcus faecium) Heavy growth AEROBIC RES 4 Final Comment Pseudomonas aeruginosa Moderate growth CONTINUED ON NEXT PAGE RUN DATE: 03/16/17 PAGE 2 RUN TIME: 735 [facility] [address] [place] [address] M.D., Wheat Washer SPEC: [id number] PATIENT: SAFIA MIRANDA [id number] ( Continued) Procedure Result ANTIMICROBIAL SUSCEPTIBILITY Final Comment S = Susceptible; I = Intermediate; R = Resistant P = Positive; N = Negative MICS are expressed in micrograms per mL Antibiotic RSLT#1 RSLT#2 RSLT#3 RSLT#4 Amikacin S Amoxicillin/Clavulanic Acid S Ampicillin R Cefepime S S Ceftazidime S Ceftriaxone S Cefuroxime I Ciprofloxacin S S Ertapenem S Gentamicin S S Imipenem S S Levofloxacin S S Linezolid S Meropenem S Penicillin R Piperacillin R S Quinupristin/Dalfopristin S Tetracycline S Ticarcillin R Tobramycin S S Trimethoprim/Sulfa S Vancomycin R Performed at: [address] [id number] Government Minister: Ashia Rogers MD, Phone: [phone] END OF REPORT Objective Assessment Abdominal abscess s/p drain c/s + Klebsiella ( R to Zosyn ,Cipro/Levo S) and enterococcus amp resistant,VRE and PSAE ( R to ticarcillin only otherwise sensitive, Cipro/Levo S) (yeast likely contaminant) Ventral hernia DM HTN Plan Plan of Care continue zyvox and meropenem for now drain management f/u labs and c/s HUMAIRA RODNEY MD Mar 16, 2017 12:22
[2017-03-16 15:00] VITALS: BP 98/63
[2017-03-16] MEDS: MEROPENEM IV Push 500 MG VIAL. IVP SCH ×2 (15:11→21:44)
[2017-03-16 19:00] VITALS: BP 114/58
[2017-03-16] MEDS: FAMOTIDINE 20 MG TABLET. PO SCH (21:04)
[2017-03-16 23:00] VITALS: BP 97/52
[2017-03-17 03:00] VITALS: BP 91/39
[2017-03-17] MEDS: MEROPENEM IV Push 500 MG VIAL. IVP SCH ×3 (06:22→21:56)
[2017-03-17 07:00] VITALS: BP 97/55
[2017-03-17] MEDS: DICLOFENAC SODIUM 25 MG TABLET.DR PO SCH (09:00)
[2017-03-17] MEDS: LACTOBACILLUS RHAMNOSUS GG 1 CAPSULE. PO SCH ×2 (09:12→21:28)
[2017-03-17] MEDS: CLOPIDOGREL BISULFATE 75 MG TABLET PO SCH (09:12)
[2017-03-17] MEDS: ASPIRIN CHEWABLE 81 MG TABLET. PO SCH (09:12)
[2017-03-17] MEDS: GLIMEPIRIDE 2 MG TABLET. PO SCH (09:13)
[2017-03-17] MEDS: FERROUS SULFATE 325 MG TABLET. PO SCH (09:13)
[2017-03-17] MEDS: LINEZOLID 600 MG TABLET PO SCH ×2 (09:13→21:28)
[2017-03-17 11:00] VITALS: BP 94/60
--- NOTE | 2017-03-17 11:29 | PDOC ---
Infectious Disease Note Subjective Subjective Feeling alright Denies pain ROS ROS GEN: Denies fevers, chills, sweats CV: Denies chest pain RESP: Denies shortness of air, cough GI: Denies n/v/d Vital Sign Vital Signs Vital Signs Date Time Temp Pulse Resp B/P (MAP) Pulse Ox O2 Delivery O2 Flow Rate FiO2 03/17/17 08:00 Room Air 03/17/17 07:00 98.3 88 18 97/55 (69) 95 98.3 03/16/17 20:00 2.0 Physical Exam PHYSICAL EXAM GENERAL: In chair, relaxed appearance HEENT: Oral cavity pink, dentures in place NECK: Supple LUNGS: Clear HEART: S1 and S2 ABD: Soft, NT, BS active; CLIFFORD drain intact EXT: No edema, no cyanosis [employer]: Alert, oriented x 3, no focal neurologic deficit SKIN: No rash IV: ok Labs Lab Laboratory Tests Test 03/16/17 11:37 03/16/17 17:07 03/16/17 21:22 03/17/17 07:29 Glucose (Fingerstick) 151 mg/dL (70-99) 129 mg/dL (70-99) 153 mg/dL (70-99) 118 mg/dL (70-99) Micro ANAEROBIC RES 1 Final No anaerobic growth in 72 hours. AEROBIC RES 1 Final Klebsiella pneumoniae AEROBIC RES 2 Final Yeast AEROBIC RES 3 Final Vancomycin-resistant Enterococcus (Enterococcus faecium) AEROBIC RES 4 Final Pseudomonas aeruginosa Antibiotic RSLT#1 RSLT#2 RSLT#3 RSLT#4 Amikacin S Amoxicillin/Clavulanic Acid S Ampicillin R Cefepime S S Ceftazidime S Ceftriaxone S Cefuroxime I Ciprofloxacin S S Ertapenem S Gentamicin S S Imipenem S S Levofloxacin S S Linezolid S Meropenem S Penicillin R Piperacillin R S Quinupristin/Dalfopristin S Tetracycline S Ticarcillin R Tobramycin S S Trimethoprim/Sulfa S Vancomycin R Objective Assessment Abdominal abscess, measuring 6.4 x 4.9 cm. s/p drain 03/12. Klebsiella ( R to Zosyn, S Cipro/Levo), VRE (R PCN) and PSAE ( R to ticarcillin only otherwise sensitive, S Cipro/Levo) and yeast h/o Strep anginosis and Bacteroides Ventral hernia DM HTN PCN allergy/amox also - hives and swelling Plan Plan of Care Zyvox (03/14) and meropenem D/w micro Probiotics Contact isolation Attending Co-Sign The patient was seen and interviewed as well as examined at the bedside. The chart was reviewed. The case was discussed. Agree with the plan of care. SERAFIN MOTT APRN Mar 17, 2017 11:29 SNADRA RODNEY MD Mar 17, 2017 16:16
--- NOTE | 2017-03-17 13:30 | PDOC ---
SUBJECTIVE Subjective in chair looks comfortable , no complaints OBJECTIVE Vital Signs Vital Signs Date Time Temp Pulse Resp B/P (MAP) Pulse Ox O2 Delivery O2 Flow Rate FiO2 03/17/17 11:00 98.0 100 18 94/60 (71) 95 Room Air 98.0 03/17/17 08:00 Room Air 03/17/17 07:00 98.3 88 18 97/55 (69) 95 Room Air 98.3 03/17/17 03:00 98.4 92 16 91/39 (56) 95 98.4 03/16/17 23:00 97.5 85 16 97/52 (67) 96 97.5 03/16/17 20:00 Room Air 2.0 03/16/17 19:00 97.7 91 18 114/58 (76) 96 97.7 03/16/17 15:00 97.8 92 18 98/63 (75) 95 Room Air 97.8 PHYSICAL EXAM Physical Exam minimal drainage in drain , no abdominal pain lungs fairly clear heart RRR ASSESSMENT/PLAN Assessment/Plan 1-Abdominal abscess, continue ABx by ID 2-Ventral hernia 3- DM good control 4-HTN 5- CAD on plavix Problems: COMMENT Lab Laboratory Tests Test 03/16/17 17:07 03/16/17 21:22 03/17/17 07:29 03/17/17 11:24 Glucose (Fingerstick) 129 mg/dL (70-99) 153 mg/dL (70-99) 118 mg/dL (70-99) 220 mg/dL (70-99) RONNIE KABA MD Mar 17, 2017 13:30
[2017-03-17 15:00] VITALS: BP 103/60
[2017-03-17 19:00] VITALS: BP 113/62
[2017-03-17] MEDS: ACETAMINOPHEN 325 MG TABLET. PO PRN (19:53)
[2017-03-17] MEDS: FAMOTIDINE 20 MG TABLET. PO SCH (21:29)
[2017-03-17 23:00] VITALS: BP 108/49
[2017-03-18 03:00] VITALS: BP 108/54
[2017-03-18] MEDS: MEROPENEM IV Push 500 MG VIAL. IVP SCH ×3 (05:57→22:41)
[2017-03-18 07:00] VITALS: BP 107/60
[2017-03-18] MEDS: LINEZOLID 600 MG TABLET PO SCH ×2 (08:47→21:08)
[2017-03-18] MEDS: ASPIRIN CHEWABLE 81 MG TABLET. PO SCH (08:47)
[2017-03-18] MEDS: FERROUS SULFATE 325 MG TABLET. PO SCH (08:47)
[2017-03-18] MEDS: GLIMEPIRIDE 2 MG TABLET. PO SCH (08:48)
[2017-03-18] MEDS: FUROSEMIDE 40 MG TABLET. PO SCH (08:48)
[2017-03-18] MEDS: CLOPIDOGREL BISULFATE 75 MG TABLET PO SCH (08:48)
[2017-03-18] MEDS: LACTOBACILLUS RHAMNOSUS GG 1 CAPSULE. PO SCH ×2 (08:48→21:08)
[2017-03-18] MEDS: DICLOFENAC SODIUM 25 MG TABLET.DR PO SCH (09:35)
--- NOTE | 2017-03-18 10:52 | PDOC ---
SUBJECTIVE Subjective doing well no new complaints OBJECTIVE Vital Signs Vital Signs Date Time Temp Pulse Resp B/P (MAP) Pulse Ox O2 Delivery O2 Flow Rate FiO2 03/18/17 07:59 Room Air 03/18/17 07:00 98.2 96 18 107/60 (76) 95 Room Air 98.2 03/18/17 03:00 96.9 89 19 108/54 (72) 95 Room Air 96.9 03/17/17 23:00 97.9 75 18 108/49 (68) 97 Room Air 97.9 03/17/17 19:45 Room Air 03/17/17 19:00 100.2 107 19 113/62 (79) 96 Room Air 100.2 03/17/17 15:00 98.5 99 18 103/60 (74) 96 Room Air 98.5 03/17/17 11:00 98.0 100 18 94/60 (71) 95 Room Air 98.0 I & O Intake and Output 03/19/17 07:00 Intake Total 320 ml Balance 320 ml Intake Oral 320 ml PHYSICAL EXAM Physical Exam lungs clear heart RRR abd soft not much drainage bashir drain ext no edema ASSESSMENT/PLAN Assessment/Plan 1-Abdominal abscess, continue ABx by ID 2-Ventral hernia 3- DM good control 4-HTN 5- CAD on plavix continue plans , Dr. Prabhakar will resume care in AM Problems: COMMENT Lab Laboratory Tests Test 03/17/17 11:24 03/17/17 16:45 03/17/17 20:29 03/18/17 07:24 Glucose (Fingerstick) 220 mg/dL (70-99) 108 mg/dL (70-99) 140 mg/dL (70-99) 111 mg/dL (70-99) RONNIE KABA MD Mar 18, 2017 10:51
[2017-03-18 11:00] VITALS: BP 105/59
--- NOTE | 2017-03-18 12:48 | PDOC ---
Infectious Disease Note Subjective Subjective Comfortable Denies pain Fever 100.2 ROS ROS GEN: Denies chills, sweats CV: Denies chest pain RESP: Denies shortness of air, cough GI: Denies n/v/d Vital Sign Vital Signs Vital Signs Date Time Temp Pulse Resp B/P (MAP) Pulse Ox O2 Delivery O2 Flow Rate FiO2 03/18/17 07:59 Room Air 03/18/17 07:00 98.2 96 18 107/60 (76) 95 98.2 Physical Exam PHYSICAL EXAM GENERAL: In chair, relaxed appearance HEENT: Oral cavity pink, dentures in place NECK: Supple LUNGS: Clear HEART: S1 and S2 ABD: Soft, NT, BS active; CLIFFORD drain intact EXT: No edema, no cyanosis TOOL ROOM ATTENDANT: Alert, oriented x 3, no focal neurologic deficit SKIN: No rash PIV: ok Labs Lab Laboratory Tests Test 03/17/17 16:45 03/17/17 20:29 03/18/17 07:24 Glucose (Fingerstick) 108 mg/dL (70-99) 140 mg/dL (70-99) 111 mg/dL (70-99) Micro ANAEROBIC RES 1 Final No anaerobic growth in 72 hours. AEROBIC RES 1 Final Klebsiella pneumoniae AEROBIC RES 2 Final Yeast AEROBIC RES 3 Final Vancomycin-resistant Enterococcus (Enterococcus faecium) AEROBIC RES 4 Final Pseudomonas aeruginosa Antibiotic RSLT#1 RSLT#2 RSLT#3 RSLT#4 Amikacin S Amoxicillin/Clavulanic Acid S Ampicillin R Cefepime S S Ceftazidime S Ceftriaxone S Cefuroxime I Ciprofloxacin S S Ertapenem S Gentamicin S S Imipenem S S Levofloxacin S S Linezolid S Meropenem S Penicillin R Piperacillin R S Quinupristin/Dalfopristin S Tetracycline S Ticarcillin R Tobramycin S S Trimethoprim/Sulfa S Vancomycin R Objective Assessment Fever Abdominal abscess, measuring 6.4 x 4.9 cm. s/p drain 03/12. Klebsiella ( R to Zosyn, S Cipro/Levo), VRE (R PCN) and PSAE ( R to ticarcillin only otherwise sensitive, S Cipro/Levo) and yeast h/o Strep anginosis and Bacteroides Ventral hernia DM HTN PCN allergy/amox also - hives and swelling Plan Plan of Care Zyvox (03/14) and meropenem Probiotics Contact isolation f/u am labs Attending Co-Sign The patient was seen and interviewed as well as examined at the bedside. The chart was reviewed. The case was discussed. Agree with the plan of care. SERAFIN MOTT APRN Mar 18, 2017 12:48 SANDRA RODNEY MD Mar 18, 2017 15:08
[2017-03-18 15:00] VITALS: BP 108/67
[2017-03-18 19:00] VITALS: BP 100/49
[2017-03-18] MEDS: FAMOTIDINE 20 MG TABLET. PO SCH (21:08)
[2017-03-18 23:00] VITALS: BP 120/58
[2017-03-19] VITALS (7 sets, daily range): BP systolic 95–120; BP diastolic 37–62
[2017-03-19 04:55] LABS: BASO % 0 % (0-3); EOS % 1 % (0-3); HEMOGLOBIN 8.8 g/dL (12.0-15.5); LYMPH # 1.4 x10^3/uL (1.0-4.8); LYMPH % 22 % (24-48); MEAN CORPUSCULAR HEMOGLOBIN 28 pg (25-35); MEAN CORPUSCULAR HGB CONC 32 g/dL (31-37); MEAN CORPUSCULAR VOLUME 87 fL (79-100); MONO % 5 % (0-9); NEUT % 72 % (31-73); PLATELET COUNT 323 x10^3/uL (140-400); RED BLOOD COUNT 3.12 x10^6/uL (3.50-5.40); RED CELL DISTRIBUTION WIDTH 18.8 % (11.5-14.5); WHITE BLOOD COUNT 6.2 x10^3/uL (4.0-11.0)
[2017-03-19 05:52] LABS: ALBUMIN 4.8 g/dL (3.4-5.0); ALBUMIN/GLOBULIN RATIO 2.7 (1.0-1.7); CALCIUM 9.1 mg/dL (8.5-10.1); CREATININE 0.8 mg/dL (0.6-1.0); GFR 70.7; TOTAL BILIRUBIN 0.2 mg/dL (0.2-1.0); TOTAL PROTEIN 6.6 g/dL (6.4-8.2)
[2017-03-19 05:53] LABS: POTASSIUM 4.2 mmol/L (3.5-5.1)
[2017-03-19] MEDS: MEROPENEM IV Push 500 MG VIAL. IVP SCH ×3 (06:07→21:38)
--- NOTE | 2017-03-19 08:11 | PDOC ---
Provider Note Provider Note cbc same, labs ok, glu ok- zyvox/merrem ,goes to [facility] re ? surg excision of abd wall abscess, she does not want to go to [facility], will accept others MILENA MCMILLAN MD Mar 19, 2017 08:11
--- NOTE | 2017-03-19 09:43 | PDOC ---
Infectious Disease Note Subjective Subjective Comfortable Denies pain But drainage around drain ROS ROS GEN: Denies fevers, chills, sweats HEENT: Denies blurred vision, sore throat CV: Denies chest pain RESP: Denies shortness of air, cough GI: Denies n/v/d NEURO: Denies confusion, dizziness MSK: Denies weakness, joint pain/swelling Vital Sign Vital Signs Vital Signs Date Time Temp Pulse Resp B/P (MAP) Pulse Ox O2 Delivery O2 Flow Rate FiO2 03/19/17 07:00 97.6 101 18 102/45 (64) 95 Room Air 97.6 Physical Exam PHYSICAL EXAM GENERAL: In chair, relaxed appearance HEENT: Oral cavity pink, dentures in place NECK: Supple LUNGS: Clear HEART: S1 and S2 ABD: Soft, NT, BS active; CLIFFORD drain intact - pus around insertion site EXT: No edema, no cyanosis SUPERVISOR OF GUIDANCE AND TESTING: Alert, oriented x 3, no focal neurologic deficit SKIN: No rash PIV: out Labs Lab Laboratory Tests Test 03/18/17 12:56 03/18/17 17:20 03/18/17 21:40 03/19/17 04:00 Glucose (Fingerstick) 105 mg/dL (70-99) 105 mg/dL (70-99) 170 mg/dL (70-99) White Blood Count 6.2 x10^3/uL (4.0-11.0) Red Blood Count 3.12 x10^6/uL (3.50-5.40) Hemoglobin 8.8 g/dL (12.0-15.5) Hematocrit 27.0 % (36.0-47.0) Mean Corpuscular Volume 87 fL (79-100) Mean Corpuscular Hemoglobin 28 pg (25-35) Mean Corpuscular Hemoglobin Concent 32 g/dL (31-37) Red Cell Distribution Width 18.8 % (11.5-14.5) Platelet Count 323 x10^3/uL (140-400) Neutrophils (%) (Auto) 72 % (31-73) Lymphocytes (%) (Auto) 22 % (24-48) Monocytes (%) (Auto) 5 % (0-9) Eosinophils (%) (Auto) 1 % (0-3) Basophils (%) (Auto) 0 % (0-3) Neutrophils # (Auto) 4.4 x10^3uL (1.8-7.7) Lymphocytes # (Auto) 1.4 x10^3/uL (1.0-4.8) Monocytes # (Auto) 0.3 x10^3/uL (0.0-1.1) Eosinophils # (Auto) 0.0 x10^3/uL (0.0-0.7) Basophils # (Auto) 0.0 x10^3/uL (0.0-0.2) Sodium Level 138 mmol/L (136-145) Potassium Level 4.2 mmol/L (3.5-5.1) Chloride Level 103 mmol/L (98-107) Carbon Dioxide Level 27 mmol/L (21-32) Anion Gap 8 (6-14) Blood Urea Nitrogen 15 mg/dL (7-20) Creatinine 0.8 mg/dL (0.6-1.0) Estimated GFR (Cockcroft-Gault) 70.7 BUN/Creatinine Ratio 19 (6-20) Glucose Level 101 mg/dL (70-99) Calcium Level 9.1 mg/dL (8.5-10.1) Total Bilirubin 0.2 mg/dL (0.2-1.0) Aspartate Amino Transf (AST/SGOT) 12 U/L (15-37) Alanine Aminotransferase (ALT/SGPT) 10 U/L (14-59) Alkaline Phosphatase 79 U/L (46-116) Total Protein 6.6 g/dL (6.4-8.2) Albumin 4.8 g/dL (3.4-5.0) Albumin/Globulin Ratio 2.7 (1.0-1.7) Test 03/19/17 08:04 Glucose (Fingerstick) 132 mg/dL (70-99) Objective Assessment Fever - better Pus draining around insertion site Abdominal abscess, measuring 6.4 x 4.9 cm. s/p drain 03/12. Klebsiella ( R to Zosyn, S Cipro/Levo), VRE (R PCN) and PSAE ( R to ticarcillin only otherwise sensitive, S Cipro/Levo) and yeast h/o Strep anginosis and Bacteroides Ventral hernia DM HTN PCN allergy/amox also - hives and swelling Plan Plan of Care Reconsult IR - may need re-imaging Zyvox (03/14) and meropenem - need IV. Depending on IR findings/procedure may change to po Probiotics Contact isolation f/u am labs D/w TERRA Pineda MD Mar 19, 2017 09:43
[2017-03-19] MEDS: DICLOFENAC SODIUM 25 MG TABLET.DR PO SCH (09:59)
[2017-03-19] MEDS: CLOPIDOGREL BISULFATE 75 MG TABLET PO SCH (10:00)
[2017-03-19] MEDS: LACTOBACILLUS RHAMNOSUS GG 1 CAPSULE. PO SCH ×2 (10:00→21:37)
[2017-03-19] MEDS: LINEZOLID 600 MG TABLET PO SCH ×2 (10:00→21:37)
[2017-03-19] MEDS: FERROUS SULFATE 325 MG TABLET. PO SCH (10:00)
[2017-03-19] MEDS: GLIMEPIRIDE 2 MG TABLET. PO SCH (10:01)
[2017-03-19] MEDS: ASPIRIN CHEWABLE 81 MG TABLET. PO SCH (10:01)
[2017-03-19] MEDS ORDERED: IOHEXOL 240 MG/ML 50ML VIAL. ONE ×2 (13:11→13:55)
[2017-03-19] MEDS ORDERED: CONTRAST GIVEN MC PRN (14:00)
[2017-03-19] MEDS ORDERED: IOHEXOL 240 MG/ML 50ML VIAL. IJ ONE (14:00)
--- NOTE | 2017-03-19 15:10 | RAD ---
Abscessogram, follow-up CT imaging 03/19/2017 Indication: 71-year-old female with history of abdominal wall abscess, underneath the patient's pannus, with history of prior surgical intervention. The patient had an abscess drain placed March 12, 2017 but is had leakage around drainage catheter since yesterday. Also drainage output is persistently high. Discussion: The patient was brought to the fluoroscopy suite and placed in supine position. A timeout procedure was performed. Fluoroscopic evaluation demonstrates the drain to be in expected position, projecting over the central inferior abdomen. The drain was aspirated revealing approximately 20 cc of purulence/feculent material. Contrast was administered through the catheter delineating the abscess cavity as well as a small amount of contrast tracking superiorly and ultimately into what appears to be large bowel. 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 Contrast was then evacuated, and notably the abscess cavity nearly completely evacuated. No abnormal drainage around the catheter was seen. Previous drainage around the catheter may been the result of a catheter obstruction or lack of adequate bulb suction. The patient was transferred to the CT scanner to further delineate the site of bowel communication. In the region of the sigmoid colon there is visualization of the communication between the cavity and the sigmoid colon. Notably the sigmoid colon demonstrates extensive diverticular disease. Fluoroscopy time: 3.8 min Dose area product: 44 Gycm2 Impression: Catheter well-positioned with adequate drainage of the abscess cavity. There is however a ongoing communication involving the sigmoid colon in the abscess cavity, with persistent high volume output through the drain.
[2017-03-19] MEDS: FAMOTIDINE 20 MG TABLET. PO SCH (21:37)
[2017-03-20 02:45] VITALS: BP 92/45
[2017-03-20] MEDS: MEROPENEM IV Push 500 MG VIAL. IVP SCH ×3 (06:12→22:25)
[2017-03-20 07:00] VITALS: BP 111/64
[2017-03-20] MEDS: ASPIRIN CHEWABLE 81 MG TABLET. PO SCH (07:56)
[2017-03-20] MEDS: CLOPIDOGREL BISULFATE 75 MG TABLET PO SCH (07:56)
[2017-03-20] MEDS: DICLOFENAC SODIUM 25 MG TABLET.DR PO SCH (07:56)
--- NOTE | 2017-03-20 08:48 | PDOC ---
Infectious Disease Note Subjective Subjective Comfortable Denies pain Drainage around drain - better ROS ROS GEN: Denies fevers, chills, sweats HEENT: Denies blurred vision, sore throat CV: Denies chest pain RESP: Denies shortness of air, cough GI: Denies n/v/d NEURO: Denies confusion, dizziness MSK: Denies weakness, joint pain/swelling Vital Sign Vital Signs Vital Signs Date Time Temp Pulse Resp B/P (MAP) Pulse Ox O2 Delivery O2 Flow Rate FiO2 03/20/17 07:00 97.0 91 16 111/64 (80) 97 Room Air 97.0 Physical Exam PHYSICAL EXAM GENERAL: In chair, relaxed appearance HEENT: Oral cavity pink, dentures in place NECK: Supple LUNGS: Clear HEART: S1 and S2 ABD: Soft, NT, BS active; CLIFFORD drain intact - clean around insertion site EXT: No edema, no cyanosis APPRENTICE PLANT ATTENDANT: Alert, oriented x 3, no focal neurologic deficit SKIN: No rash PIV: clean Labs Lab Laboratory Tests Test 03/19/17 11:37 03/19/17 17:00 03/19/17 20:32 03/20/17 07:34 Glucose (Fingerstick) 129 mg/dL (70-99) 114 mg/dL (70-99) 109 mg/dL (70-99) 115 mg/dL (70-99) Objective Assessment EC fistula - D/w Dr. Chaves 03/19 Fever - better Pus draining around insertion site -better Abdominal abscess, measuring 6.4 x 4.9 cm. s/p drain 03/12. Klebsiella ( R to Zosyn, S Cipro/Levo), VRE (R PCN) and PSAE ( R to ticarcillin only otherwise sensitive, S Cipro/Levo) and yeast h/o Strep anginosis and Bacteroides Ventral hernia DM HTN PCN allergy/amox also - hives and swelling Plan Plan of Care Consult Gen Surg Dr. Uribe May need PICC based on surgical eval Zyvox (03/14) and meropenem Probiotics Contact isolation TERRA BEACH MD Mar 20, 2017 08:48
--- NOTE | 2017-03-20 08:57 | PDOC ---
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 MILENA MCMILLAN MD Mar 20, 2017 08:57
[2017-03-20] MEDS: FUROSEMIDE 40 MG TABLET. PO SCH (09:23)
[2017-03-20] MEDS: LACTOBACILLUS RHAMNOSUS GG 1 CAPSULE. PO SCH ×2 (09:23→20:31)
[2017-03-20] MEDS: LINEZOLID 600 MG TABLET PO SCH ×2 (09:23→20:32)
[2017-03-20] MEDS: FERROUS SULFATE 325 MG TABLET. PO SCH (09:23)
[2017-03-20] MEDS: GLIMEPIRIDE 2 MG TABLET. PO SCH (09:23)
[2017-03-20 10:53] VITALS: BP 92/54
--- NOTE | 2017-03-20 10:54 | PDOC2 ---
DYLON KELLER CELL PHONE REPAIR TECHNICIAN 03/20/17 1054: CONSULT Date of Consult Date of Consult DATE: 03/20/17 TIME: 10:43 Reason for Consult Reason for Consult: ECF Referring Physician Referring Physician: Dr Thompson Identification/Chief Complaint Chief Complaint abdominal pain Problems: Source Source: Chart review, Patient History of Present Illness Reason for Visit: Skin graft to abdomen in November at [facility] to due extensive tape allergy reaction. In January admitted with diverticulitis and treated with abx. She returned in February with diverticulitis and abscess. It was drained by IR and treated with conservative measures. She returned this admission and required addition drainage of abscess. Re evaluation yesterday revealed ECF of sigmoid colon to abscess Past Medical History Cardiovascular: CAD, HTN, NH, Hyperlipidemia, Other Pulmonary: No pertinent hx CENTRAL NERVOUS SYSTEM: Periperal neuropathy, Other GI: Diverticulosis Heme/Onc: Anemia NOS Hepatobiliary: Other Psych: No pertinent hx Musculoskeletal: Osteoarthritis Rheumatologic: Other Infectious disease: Other Renal/: UTI Endocrine: Diabetes Past Surgical History Past Surgical History: Cholecystectomy, Total knee replacement, Hysterectomy, Other Family History Family History: Heart Disease, Hypertension, Stroke Social History ALCOHOL: none Drugs: None Lives: with Family Domestic Violence: Neg Current Problem List Problem List Problems Medical Problems: (1) Abdominal abscess Status: Acute (2) Abdominal pain Status: Acute Current Medications Current Medications Current Medications Ondansetron HCl (Zofran) 4 mg 1X ONCE IV Last administered on 03/09/17 08:30 ; Start 03/09/17 at 08:15; Stop 03/09/17 at 08:16; Status DC Iohexol (Omnipaque 300 Mg/ml) 75 ml 1X ONCE IV Last administered on 03/09/17 08:50; Start 03/09/17 at 08:45; Stop 03/09/17 at 08:46; Status DC Info (Do NOT chart on this entry -- for MONITORING) 1 each PRN DAILY PRN MC SEE COMMENTS; Start 03/09/17 at 08:45; Stop 03/11/17 at 08:44; Status DC Ceftriaxone Sodium 50 ml @ 100 mls/hr 1X ONCE IV ; Start 03/09/17 at 09:30; Stop 03/09/17 at 09:55; Status DC Sodium Chloride 1,000 ml @ 1,000 mls/hr 1X ONCE IV Last administered on 09:55; Start 03/09/17 at 10:00; Stop 03/09/17 at 10:59; Status DC Ondansetron HCl (Zofran) 4 mg PRN Q8HRS PRN IV NAUSEA/VOMITING; Start 03/09/17 at 10:30; Stop 03/10/17 at 10:29; Status DC Meropenem 500 mg/ Sodium Chloride 50 ml @ 100 mls/hr Q8HRS IV Last administered on 03/16/17 06:09; Start 03/09/17 at 13:00; Stop 03/16/17 at 12: 59; Status DC Acetaminophen (Tylenol) 650 mg PRN QID PRN PO MILD PAIN / TEMP Last administered on 03/17/17 19:53; Start 03/09/17 at 20:30 Aspirin (Children'S Aspirin) 81 mg DAILY PO Last administered on 03/19/17 10: 01; Start 03/10/17 at 15:00 Clopidogrel Bisulfate (Plavix) 75 mg DAILY PO Last administered on 03/19/17 10:00; Start 03/10/17 at 15:00 Ferrous Sulfate (Feosol) 325 mg DAILY PO Last administered on 03/20/17 09:23 ; Start 03/10/17 at 15:00 Metoprolol Tartrate (Lopressor) 12.5 mg BID PO Last administered on 03/10/17 16:01; Start 03/10/17 at 15:00; Stop 03/10/17 at 21:01; Status DC Diclofenac Sodium (Voltaren) 75 mg DAILY PO Last administered on 03/19/17 09: 59; Start 03/10/17 at 14:30 Famotidine (Pepcid) 20 mg QHS PO Last administered on 03/19/17 21:37; Start 03/10/17 at 21:00 Glimepiride (Amaryl) 1 mg DAILY PO Last administered on 03/13/17 09:25; Start 03/11/17 at 15:00; Stop 03/13/17 at 17:02; Status DC Sodium Chloride 1,000 ml @ 100 mls/hr 1X ONCE IV Last administered on 21:00; Start 03/10/17 at 21:00; Stop 03/11/17 at 06:59; Status DC Lidocaine/Sodium Bicarbonate (Buffered Lidocaine 1%) 20 ml STK-MED ONCE IJ ; Start 03/12/17 at 13:05; Stop 03/12/17 at 13:06; Status DC Fentanyl Citrate (Fentanyl 2ml Vial) 100 mcg STK-MED ONCE .ROUTE ; Start at 13:20; Stop 03/12/17 at 13:21; Status DC Midazolam HCl (Versed) 2 mg STK-MED ONCE .ROUTE ; Start 03/12/17 at 13:20; Stop 03/12/17 at 13:21; Status DC Flumazenil (Romazicon) 0.5 mg STK-MED ONCE IV ; Start 03/12/17 at 13:20; Stop 03/12/17 at 13:21; Status DC Naloxone HCl (Narcan) 0.4 mg STK-MED ONCE .ROUTE ; Start 03/12/17 at 13:20; Stop 03/12/17 at 13:21; Status DC Lidocaine/Sodium Bicarbonate (Buffered Lidocaine 1%) 20 ml 1X ONCE IJ Last administered on 03/12/17 13:50; Start 03/12/17 at 13:30; Stop 03/12/17 at 13:33 ; Status DC Midazolam HCl (Versed) 2 mg 1X ONCE IV Last administered on 03/12/17 13:50; Start 03/12/17 at 13:30; Stop 03/12/17 at 13:33; Status DC Fentanyl Citrate (Fentanyl 2ml Vial) 100 mcg 1X ONCE IV Last administered on 03/12/17 13:50; Start 03/12/17 at 13:30; Stop 03/12/17 at 13:33; Status DC Lactobacillus Rhamnosus (Culturelle) 1 cap BID PO Last administered on 09:23; Start 03/12/17 at 21:00 Acetaminophen/ Hydrocodone Bitart (Lortab 7.5/325) 1 tab PRN Q6HRS PRN PO MODERATE - SEVERE PAIN Last administered on 03/13/17 05:50; Start 03/12/17 at 18:15 Ondansetron HCl (Zofran) 4 mg PRN Q6HRS PRN IV NAUSEA/VOMITING; Start 03/13/17 at 09:00 Furosemide (Lasix) 40 mg QODAY PO Last administered on 03/20/17 09:23; Start 03/14/17 at 09:00 Glimepiride (Amaryl) 1 mg DAILY08 PO Last administered on 03/20/17 09:23; Start 03/14/17 at 08:00 Linezolid (Zyvox) 600 mg BID PO Last administered on 03/20/17 09:23; Start 03/14/17 at 13:15 Meropenem (Merrem) 500 mg Q8HRS IVP Last administered on 03/20/17 06:12; Start 03/16/17 at 14:00 Iohexol (Omnipaque 240 Mg/ml) 50 ml STK-MED ONCE .ROUTE ; Start 03/19/17 at 13: 11; Stop 03/19/17 at 13:12; Status DC Iohexol (Omnipaque 240 Mg/ml) 10 ml 1X ONCE IJ Last administered on 14:07; Start 03/19/17 at 14:00; Stop 03/19/17 at 14:01; Status DC Info (Do NOT chart on this entry -- for MONITORING) 1 each PRN DAILY PRN MC SEE COMMENTS; Start 03/19/17 at 14:00; Stop 03/21/17 at 13:59 Iohexol (Omnipaque 240 Mg/ml) 50 ml STK-MED ONCE .ROUTE ; Start 03/19/17 at 13: 55; Stop 03/19/17 at 13:56; Status DC Active Scripts Active Reported Flagyl (Metronidazole) 500 Mg Tablet 1 Tab PO BID Cefpodoxime Proxetil 200 Mg Tablet 1 Tab PO BID Ferrous Sulfate 325 Mg Tablet 1 Tab PO DAILY Lasix (Furosemide) 40 Mg Tablet 40 Mg PO QODAY Potassium Chloride 10 Meq Capsule.er 10 Meq PO QODAY Metoprolol Tartrate 25 Mg Tablet 12.5 Mg PO BID Atorvastatin Calcium 40 Mg Tablet 40 Mg PO HS Clopidogrel (Clopidogrel Bisulfate) 75 Mg Tablet 1 Tab PO DAILY Diclofenac Sodium 75 Mg Tablet.dr 75 Mg PO DAILY Ranitidine Hcl 150 Mg Tablet 1 Tab PO BID Aspirin 81 Mg Tab.chew 1 Tab PO DAILY Allergies Allergies: Coded Allergies: Penicillins (Verified Allergy, Intermediate, TOLERATES MERREM, CEFPODOXIME , 03/12/17) adhesive tape (Verified Allergy, Intermediate, Rash, 10/15/15) latex (Verified Allergy, Intermediate, Rash, 12/21/14) allergic to latex rubber gloves, Bandaids, and adhesive tape I S O L A T I O N *CONTACT* (Verified Allergy, Unknown, 03/16/17) vre metformin (Verified Adverse Reaction, Intermediate, nausea/diarrhea, ) ROS General: No: Chills, Other (fevers) PSYCHOLOGICAL ROS: No: Anxiety, Depression Eyes: No Blurry vision, No Double vision Hematological and Lymphatic: No: Bleeding Problems, Blood Clots Respiratory: No: Cough, SOB with excertion Cardiovascular: No Chest Pain, No Palpitations Gastrointestinal: Yes Other (see hpi) Genitourinary: No Dysuria, No Hematuria Musculoskeletal: No Joint Pain, No Muscle Pain Neurological: No Confusion Skin: No Pruritus, No Rash Physical Exam General: Alert, Oriented X3, Cooperative, No acute distress HEENT: PERRLA, Mucous membr. moist/pink Lungs: Clear to auscultation, Normal air movement Heart: Regular rate, Normal S1, Normal S2, No murmurs Abdomen: Soft, Other (pannus, dressing in place to skin grafting site, CLIFFORD stoolish color) Extremities: No clubbing, No cyanosis Neuro: Normal speech, Sensation intact Psych/Mental Status: Mental status NL, Mood NL MUSCULOSKELETAL: No deformity, No swelling Vitals VITALS Vital Signs Date Time Temp Pulse Resp B/P (MAP) Pulse Ox O2 Delivery O2 Flow Rate FiO2 03/20/17 07:00 97.0 91 16 111/64 (80) 97 Room Air 97.0 Labs Labs Laboratory Tests Test 03/18/17 12:56 03/18/17 17:20 03/18/17 21:40 03/19/17 04:00 Glucose (Fingerstick) 105 mg/dL (70-99) 105 mg/dL (70-99) 170 mg/dL (70-99) White Blood Count 6.2 x10^3/uL (4.0-11.0) Red Blood Count 3.12 x10^6/uL (3.50-5.40) Hemoglobin 8.8 g/dL (12.0-15.5) Hematocrit 27.0 % (36.0-47.0) Mean Corpuscular Volume 87 fL (79-100) Mean Corpuscular Hemoglobin 28 pg (25-35) Mean Corpuscular Hemoglobin Concent 32 g/dL (31-37) Red Cell Distribution Width 18.8 % (11.5-14.5) Platelet Count 323 x10^3/uL (140-400) Neutrophils (%) (Auto) 72 % (31-73) Lymphocytes (%) (Auto) 22 % (24-48) Monocytes (%) (Auto) 5 % (0-9) Eosinophils (%) (Auto) 1 % (0-3) Basophils (%) (Auto) 0 % (0-3) Neutrophils # (Auto) 4.4 x10^3uL (1.8-7.7) Lymphocytes # (Auto) 1.4 x10^3/uL (1.0-4.8) Monocytes # (Auto) 0.3 x10^3/uL (0.0-1.1) Eosinophils # (Auto) 0.0 x10^3/uL (0.0-0.7) Basophils # (Auto) 0.0 x10^3/uL (0.0-0.2) Sodium Level 138 mmol/L (136-145) Potassium Level 4.2 mmol/L (3.5-5.1) Chloride Level 103 mmol/L (98-107) Carbon Dioxide Level 27 mmol/L (21-32) Anion Gap 8 (6-14) Blood Urea Nitrogen 15 mg/dL (7-20) Creatinine 0.8 mg/dL (0.6-1.0) Estimated GFR (Cockcroft-Gault) 70.7 BUN/Creatinine Ratio 19 (6-20) Glucose Level 101 mg/dL (70-99) Calcium Level 9.1 mg/dL (8.5-10.1) Total Bilirubin 0.2 mg/dL (0.2-1.0) Aspartate Amino Transf (AST/SGOT) 12 U/L (15-37) Alanine Aminotransferase (ALT/SGPT) 10 U/L (14-59) Alkaline Phosphatase 79 U/L (46-116) Total Protein 6.6 g/dL (6.4-8.2) Albumin 4.8 g/dL (3.4-5.0) Albumin/Globulin Ratio 2.7 (1.0-1.7) Test 03/19/17 08:04 03/19/17 11:37 03/19/17 17:00 03/19/17 20:32 Glucose (Fingerstick) 132 mg/dL (70-99) 129 mg/dL (70-99) 114 mg/dL (70-99) 109 mg/dL (70-99) Test 03/20/17 07:34 Glucose (Fingerstick) 115 mg/dL (70-99) Laboratory Tests Test 03/19/17 11:37 03/19/17 17:00 03/19/17 20:32 03/20/17 07:34 Glucose (Fingerstick) 129 mg/dL (70-99) 114 mg/dL (70-99) 109 mg/dL (70-99) 115 mg/dL (70-99) Assessment/Plan Assessment/Plan diverticulitis, abscess, perc drain now findings of ECF obesity, pannus with skin graft at [facility] in November continue drain will have Dr Hall review CAD, on plavix, DM, CHF poor surgical candidate LI HALL MD 03/20/17 1637: CONSULT Allergies Allergies: Coded Allergies: Penicillins (Verified Allergy, Intermediate, TOLERATES MERREM, CEFPODOXIME , 03/12/17) adhesive tape (Verified Allergy, Intermediate, Rash, 10/15/15) latex (Verified Allergy, Intermediate, Rash, 12/21/14) allergic to latex rubber gloves, Bandaids, and adhesive tape I S O L A T I O N *CONTACT* (Verified Allergy, Unknown, 03/16/17) vre metformin (Verified Adverse Reaction, Intermediate, nausea/diarrhea, ) Assessment/Plan Assessment/Plan Pt seen and examined. Agree with Ms. 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 Will plan drainage and abx and consider repair pt does represent a poor surgical candidate, but may not improve without repair , and represent a recurrent problem. Thanks for consult! DYLON KELLER APRN Mar 20, 2017 10:54 LI HALL MD Mar 20, 2017 16:37
[2017-03-20 15:00] VITALS: BP 93/61
[2017-03-20 19:00] VITALS: BP 103/48
[2017-03-20] MEDS: FAMOTIDINE 20 MG TABLET. PO SCH (20:31)
[2017-03-20 23:00] VITALS: BP 86/48
[2017-03-21 03:00] VITALS: BP 101/53
[2017-03-21] MEDS: MEROPENEM IV Push 500 MG VIAL. IVP SCH ×3 (05:45→22:53)
[2017-03-21 07:00] VITALS: BP 105/62
[2017-03-21] MEDS: CLOPIDOGREL BISULFATE 75 MG TABLET PO SCH (07:23)
[2017-03-21] MEDS: ASPIRIN CHEWABLE 81 MG TABLET. PO SCH (07:23)
[2017-03-21] MEDS: DICLOFENAC SODIUM 25 MG TABLET.DR PO SCH (07:24)
[2017-03-21] MEDS: LINEZOLID 600 MG TABLET PO SCH ×2 (08:02→21:16)
[2017-03-21] MEDS: LACTOBACILLUS RHAMNOSUS GG 1 CAPSULE. PO SCH ×2 (08:02→21:16)
[2017-03-21] MEDS: GLIMEPIRIDE 2 MG TABLET. PO SCH (08:02)
[2017-03-21] MEDS: FERROUS SULFATE 325 MG TABLET. PO SCH (08:02)
--- NOTE | 2017-03-21 08:58 | PDOC ---
Infectious Disease Note Subjective Subjective Comfortable Denies pain Drainage around drain - better ROS ROS GEN: Denies fevers, chills, sweats HEENT: Denies blurred vision, sore throat CV: Denies chest pain RESP: Denies shortness of air, cough GI: Denies n/v/d NEURO: Denies confusion, dizziness MSK: Denies weakness, joint pain/swelling Vital Sign Vital Signs Vital Signs Date Time Temp Pulse Resp B/P (MAP) Pulse Ox O2 Delivery O2 Flow Rate FiO2 03/21/17 07:00 97.9 96 18 105/62 (76) 96 Room Air 97.9 Physical Exam PHYSICAL EXAM GENERAL: In bed, relaxed appearance HEENT: Oral cavity pink, dentures in place NECK: Supple LUNGS: Clear HEART: S1 and S2 ABD: Soft, NT, BS active; CLIFFORD drain intact - clean around insertion site EXT: No edema, no cyanosis PROVIDER RELATIONS MANAGER: Alert, oriented x 3, no focal neurologic deficit SKIN: No rash PIV: clean Labs Lab Laboratory Tests Test 03/20/17 11:29 03/20/17 16:45 03/20/17 20:59 03/21/17 07:42 Glucose (Fingerstick) 184 mg/dL (70-99) 127 mg/dL (70-99) 138 mg/dL (70-99) 114 mg/dL (70-99) Objective Assessment 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 Appreciate Gen Surgery eval Fever - better Pus draining around insertion site -better Abdominal abscess, measuring 6.4 x 4.9 cm. s/p drain 03/12. Klebsiella ( R to Zosyn, S Cipro/Levo), VRE (R PCN) and PSAE ( R to ticarcillin only otherwise sensitive, S Cipro/Levo) and yeast h/o Strep anginosis and Bacteroides Ventral hernia DM HTN PCN allergy/amox also - hives and swelling Plan Plan of Care Reviewed Dr. Hall's note - Await surgical procedure May need PICC if peripheral IVs cont to failure Zyvox (03/14) and meropenem Probiotics Contact isolation TERRA BEACH MD Mar 21, 2017 08:58
--- NOTE | 2017-03-21 09:15 | PDOC ---
Provider Note Provider Note STABLE, VSS, SURG PLAN NOTED, OFF MILENA JURADO MD Mar 21, 2017 09:15
[2017-03-21 11:00] VITALS: BP 99/51
--- NOTE | 2017-03-21 12:32 | PDOC ---
SURGICAL PROGRESS NOTE Subjective Pt without c/o, eladio PO, min pain Vital Signs Vital Signs Date Time Temp Pulse Resp B/P (MAP) Pulse Ox O2 Delivery O2 Flow Rate FiO2 03/21/17 11:00 98.0 101 18 99/51 (67) 96 Room Air 98.0 I&O Intake and Output 03/21/17 07:00 Intake Total 740 ml Output Total 120 ml Balance 620 ml Intake Oral 740 ml Drainage Total 120 ml # Voids 2 General: Alert, Oriented X3, Cooperative, No acute distress Abdomen: Soft, No tenderness, Other (drain with purulent output) Labs Laboratory Tests Test 03/19/17 17:00 03/19/17 20:32 03/20/17 07:34 03/20/17 11:29 Glucose (Fingerstick) 114 mg/dL (70-99) 109 mg/dL (70-99) 115 mg/dL (70-99) 184 mg/dL (70-99) Test 03/20/17 16:45 03/20/17 20:59 03/21/17 07:42 03/21/17 11:31 Glucose (Fingerstick) 127 mg/dL (70-99) 138 mg/dL (70-99) 114 mg/dL (70-99) 123 mg/dL (70-99) Laboratory Tests Test 03/20/17 16:45 03/20/17 20:59 03/21/17 07:42 03/21/17 11:31 Glucose (Fingerstick) 127 mg/dL (70-99) 138 mg/dL (70-99) 114 mg/dL (70-99) 123 mg/dL (70-99) Problem List Problems Medical Problems: (1) Abdominal abscess Status: Acute (2) Abdominal pain Status: Acute Assessment/Plan 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
[2017-03-21 15:00] VITALS: BP 100/55
[2017-03-21 19:00] VITALS: BP 98/55
[2017-03-21] MEDS: FAMOTIDINE 20 MG TABLET. PO SCH (21:16)
[2017-03-21 23:00] VITALS: BP 95/55
[2017-03-22 03:00] VITALS: BP 93/50
[2017-03-22] MEDS: MEROPENEM IV Push 500 MG VIAL. IVP SCH ×3 (06:05→21:31)
[2017-03-22 07:00] VITALS: BP 105/58
[2017-03-22] MEDS: ASPIRIN CHEWABLE 81 MG TABLET. PO SCH (09:00)
--- NOTE | 2017-03-22 09:13 | PDOC ---
Provider Note Provider Note vss, no temp- labs good, will dc plavix in advance of surg- consults re clearance in- same meds MILENA MCMILLAN MD Mar 22, 2017 09:13
--- NOTE | 2017-03-22 09:23 | PDOC ---
Infectious Disease Note Subjective Subjective Comfortable Denies pain Drainage around drain - better ROS ROS GEN: Denies fevers, chills, sweats HEENT: Denies blurred vision, sore throat CV: Denies chest pain RESP: Denies shortness of air, cough GI: Denies n/v/d NEURO: Denies confusion, dizziness MSK: Denies weakness, joint pain/swelling Vital Sign Vital Signs Vital Signs Date Time Temp Pulse Resp B/P (MAP) Pulse Ox O2 Delivery O2 Flow Rate FiO2 03/22/17 07:00 97.7 94 18 105/58 (74) 96 Room Air 97.7 Physical Exam PHYSICAL EXAM GENERAL: NAD, Alert, in chasir HEENT: PERRL, OC/OP -clear NECK: Supple, no JVD, no LN LUNGS: Clear HEART: S1S2, no gallop, no murmur ABD: Soft, NT, no organomegaly, no rebound. Right drain without much drainage on bandage EXT: No edema, no cyanosis INSPECTOR TIMERS: Alert, oriented x 3, no focal neurologic deficit SKIN: No rash IV: ok Labs Lab Laboratory Tests Test 03/21/17 11:31 03/21/17 16:58 03/21/17 21:50 Glucose (Fingerstick) 123 mg/dL (70-99) 151 mg/dL (70-99) 100 mg/dL (70-99) Micro Klebsiella pneumoniae Moderate growth AEROBIC RES 2 Final Yeast Moderate growth Request for further identification must be made within 1 week. AEROBIC RES 3 Final Comment Vancomycin-resistant Enterococcus (Enterococcus faecium) Heavy growth AEROBIC RES 4 Final Comment Pseudomonas aeruginosa Moderate growth CONTINUED ON NEXT PAGE RUN DATE: 03/20/17 PAGE 2 RUN TIME: 823 [facility] [address] [place] [address] M[address]D., Oxidized Finish Plater SPEC: [id number] PATIENT: SAFIA MIRANDA [id number] ( Continued) Procedure Result ANTIMICROBIAL SUSCEPTIBILITY Final Comment S = Susceptible; I = Intermediate; R = Resistant P = Positive; N = Negative MICS are expressed in micrograms per mL Antibiotic RSLT#1 RSLT#2 RSLT#3 RSLT#4 Amikacin S Amoxicillin/Clavulanic Acid S Ampicillin R Cefepime S S Ceftazidime S Ceftriaxone S Cefuroxime I Ciprofloxacin S S Ertapenem S Gentamicin S S Imipenem S S Levofloxacin S S Linezolid S Meropenem S Penicillin R Piperacillin R S Quinupristin/Dalfopristin S Tetracycline S Ticarcillin R Tobramycin S S Trimethoprim/Sulfa S Vancomycin R Performed at: [address] [id number] Mending Carrier: Ashia Rogers MD, Phone: [phone] SUSCEPTIBILITY TESTING AEROBIC Final Final report SUSCEPTIBILITY TESTING AEROBIC Final Letitia tropicalis Letitia tropicalis susceptibility results: 5-Flucytosine 0.12 mcg/mL Sensitive Itraconazole 1 mcg/mL Resistant Fluconazole 1 mcg/mL Sensitive Voriconazole 0.12 mcg/mL Sensitive Performed at: [facility] - [address] [id number] Mending Carrier: Ashia Rogers MD, Phone: [phone] Objective Assessment 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 Appreciate Gen Surgery eval Fever - better Pus draining around insertion site -better Abdominal abscess, measuring 6.4 x 4.9 cm. s/p drain 03/12. Klebsiella ( R to Zosyn, S Cipro/Levo), VRE (R PCN) and PSAE ( R to ticarcillin only otherwise sensitive, S Cipro/Levo) and C tropicalis h/o Strep anginosis and Bacteroides Ventral hernia DM HTN PCN allergy/amox also - hives and swelling Plan Plan of Care Reviewed Dr. Hall's note - Await surgical procedure 03/26 Cult now with C tropicalis - add fluconazole at 200 mg given age lower Cr [address] PICC today Cont Zyvox (03/14) and meropenem Probiotics Contact isolation TERRA BEACH MD Mar 22, 2017 09:23
[2017-03-22] MEDS: FLUCONAZOLE 100 MG TABLET. PO SCH (09:30)
[2017-03-22] MEDS: LACTOBACILLUS RHAMNOSUS GG 1 CAPSULE. PO SCH ×2 (09:38→21:29)
[2017-03-22] MEDS: FERROUS SULFATE 325 MG TABLET. PO SCH (09:38)
[2017-03-22] MEDS: DICLOFENAC SODIUM 25 MG TABLET.DR PO SCH (09:39)
[2017-03-22] MEDS: LINEZOLID 600 MG TABLET PO SCH ×2 (09:39→21:30)
[2017-03-22] MEDS: FUROSEMIDE 40 MG TABLET. PO SCH (09:39)
[2017-03-22] MEDS: GLIMEPIRIDE 2 MG TABLET. PO SCH (09:40)
[2017-03-22 11:00] VITALS: BP 102/58
--- NOTE | 2017-03-22 11:15 | PDOC2 ---
KENDRA RAMSEY CARGO SERVICE AGENT 03/22/17 1115: CARDIAC CONSULT DATE OF CONSULT Date of Consult DATE: 03/22/17 TIME: 10:58 REASON FOR CONSULT Reason for Consult: preop clearance REFERRING PHYSICIAN Referring Physician: Aki SOURCE Source: Chart review, Patient HISTORY OF PRESENT ILLNESS HISTORY OF PRESENT ILLNESS This is a very pleasant 71 yo female admitted for complains of abdominal pain and nausea. Upon further testing she has been noted with enterocolonic fistula requiring surgery. This prompted preop cardiac eval. No cardiac symptoms noted. Denies CP, SOA, palpitations. She has been compliant with her medications. She has had recent comprehensive cardiac evaluation as well as revascularization and is doing well. PAST MEDICAL HISTORY Cardiovascular: CAD, HTN, AK, Hyperlipidemia, Other (ascending aortic dissection) Pulmonary: No pertinent hx CENTRAL NERVOUS SYSTEM: Other (No pertinent history) GI: Diverticulosis Heme/Onc: Anemia NOS Musculoskeletal: Osteoarthritis ENT: No pertinent hx Renal/: No pertinent hx Endocrine: Diabetes (2) PAST SURGICAL HISTORY Past Surgical History: Cholecystectomy, Hernia Repair, Hysterectomy, Other ( PCI stent) FAMILY HISTORY Family History: Hypertension SOCIAL HISTORY Smoke: No ALCOHOL: none Drugs: None Lives: with Family CURRENT MEDICATIONS CURRENT MEDICATIONS Current Medications Medications (Trade) Dose Ordered Sig/Michelle Route PRN Reason Start Time Stop Time Status Last Admin Dose Admin Fluconazole (Diflucan) 200 mg DAILY PO 03/22/17 09:30 03/22/17 09:30 ALLERGIES ALLERGIES: Coded Allergies: Penicillins (Verified Allergy, Intermediate, TOLERATES MERREM, CEFPODOXIME , 03/12/17) adhesive tape (Verified Allergy, Intermediate, Rash, 10/15/15) latex (Verified Allergy, Intermediate, Rash, 12/21/14) allergic to latex rubber gloves, Bandaids, and adhesive tape I S O L A T I O N *CONTACT* (Verified Allergy, Unknown, 03/16/17) vre metformin (Verified Adverse Reaction, Intermediate, nausea/diarrhea, ) ROS Review of System 14 point ROS evaluated with pertinent positives noted per HPI PHYSICAL EXAM General: Alert, Oriented X3, Cooperative HEENT: Atraumatic, Mucous membr. moist/pink Lungs: Clear to auscultation Heart: Regular rate (SR), Normal S1, Normal S2, Other (2/6 systolic murmur to LLS border) Abdomen: Other (abdominal distention) Extremities: No cyanosis Skin: No breakdown, No significant lesion Neuro: Sensation intact Psych/Mental Status: Mental status NL, Mood NL MUSCULOSKELETAL: Osteoarthritic changes both hands VITALS VITALS Vital Signs Date Time Temp Pulse Resp B/P (MAP) Pulse Ox O2 Delivery O2 Flow Rate FiO2 03/22/17 07:00 97.7 94 18 105/58 (74) 96 Room Air 97.7 LABS Lab: Laboratory Tests Test 03/21/17 11:31 03/21/17 16:58 03/21/17 21:50 03/22/17 09:28 Glucose (Fingerstick) 123 mg/dL (70-99) 151 mg/dL (70-99) 100 mg/dL (70-99) 215 mg/dL (70-99) ECHOCARDIOGRAM ECHOCARDIOGRAM <Conclusion> Basal inferior wall hypokinesis. The Ejection Fraction is 50-55%. Transmitral Doppler flow pattern is Grade I-abnormal relaxation pattern. Moderate mitral regurgitation. Mild tricuspid regurgitation. The PA pressure was estimated at 34 mmHg. There is no evidence of significant pericardial effusion. DATE: 08/16/16 1552 STRESS TEST STRESS TEST Conclusion 1. Regadenoson cardioisotope stress test showed a large infarct involving the lateral wall with small amount of saeed-infarct ischemia especially towards the apical segment. 2. Lateral wall hypokinesis with ejection fraction calculated at 50%. 3. Low to intermediate risk for cardiac events. DATE: 05/26/15 1223 HEART CATH HEART CATH Conclusion 1. Patent previously placed stent in the left circumflex artery/second up as marginal branch. Nonobstructive 50% stenosis involving the left anterior descending artery and previously described chronic total occlusion of small caliber right coronary artery. 2. Mid anterolateral wall hypokinesis with ejection fraction estimated at 50%. 3. No significant mitral regurgitation or aortic stenosis. Recommendations Medical Therapy DATE: 10/18/15 1632 Conclusion 1. Two-vessel coronary artery disease. 2. Successful PCI/drug eluting stent placement to the left circumflex artery. 3. Successful PCI/ALEXANDRU to the second obtuse marginal branch. 4. Successful PTCA to the first obtuse marginal branch. 5. Catheter-induced dissection of ascending aorta. Recommendations Monitor patient closely in the CV ICU. We will check 2-D echo to look for aortic insufficiency and pericardial effusion. We will obtain CT scan of the chest to further evaluate the aortic dissection and make further recommendations. Cardiac thoracic surgical team will be following closely as well. Continue Integrilin infusion for now. DATE: 04/14/14 1447 ASSESSMENT/PLAN ASSESSMENT/PLAN 1. EC fistula needing surgery 2. CAD: stable, recent LHC with patent stents noted above 3. HTN; controlled 4. DM2/HLP 5. Preop cardiac eval: moderate risk for CV events. Recommendations 1. Continue with ASA. BB preop. Resume plavix post op when ok with general surgery 2. Continue with secondary prevention 3. Follow up TTE, EKG 4. BP on the low end. Resume BP meds when BP more adequate. Problems: ARLEN BAIRD MD 03/22/17 1603: CARDIAC CONSULT ALLERGIES ALLERGIES: Coded Allergies: Penicillins (Verified Allergy, Intermediate, TOLERATES MERREM, CEFPODOXIME , 03/12/17) adhesive tape (Verified Allergy, Intermediate, Rash, 10/15/15) latex (Verified Allergy, Intermediate, Rash, 12/21/14) allergic to latex rubber gloves, Bandaids, and adhesive tape I S O L A T I O N *CONTACT* (Verified Allergy, Unknown, 03/16/17) vre metformin (Verified Adverse Reaction, Intermediate, nausea/diarrhea, ) ASSESSMENT/PLAN ASSESSMENT/PLAN Patient seen and examined. Agree with WATCH ENGINEER's assessment and plan. 2-D echo showed LVEF 40-45% with moderate mitral stenosis. CAD status clinically stable. Patient cleared for surgery from cardiac standpoint. Recommend resuming Plavix postoperatively when okay from surgical standpoint. Thank you for your consultation. Problems: KENDRA RAMSEY APRN Mar 22, 2017 11:15 ARLEN BAIRD MD Mar 22, 2017 16:03
[2017-03-22] MEDS: HYDROcodone/APAP 7.5/325MG 1 TAB TABLET PO PRN (12:01)
--- NOTE | 2017-03-22 12:30 | PDOC ---
SURGICAL PROGRESS NOTE Subjective Pt without c/o, eladio PO well, having stools Vital Signs Vital Signs Date Time Temp Pulse Resp B/P (MAP) Pulse Ox O2 Delivery O2 Flow Rate FiO2 03/22/17 12:01 Room Air 03/22/17 07:00 97.7 94 18 105/58 (74) 96 97.7 I&O Intake and Output 03/22/17 07:00 Intake Total 300 ml Output Total 95 ml Balance 205 ml Intake Oral 300 ml Drainage Total 95 ml # Voids 4 General: Alert, Oriented X3, Cooperative, No acute distress Abdomen: Soft, No tenderness, Other (drain with bilious output) Labs Laboratory Tests Test 03/20/17 16:45 03/20/17 20:59 03/21/17 07:42 03/21/17 11:31 Glucose (Fingerstick) 127 mg/dL (70-99) 138 mg/dL (70-99) 114 mg/dL (70-99) 123 mg/dL (70-99) Test 03/21/17 16:58 03/21/17 21:50 03/22/17 09:28 Glucose (Fingerstick) 151 mg/dL (70-99) 100 mg/dL (70-99) 215 mg/dL (70-99) Laboratory Tests Test 03/21/17 16:58 03/21/17 21:50 03/22/17 09:28 Glucose (Fingerstick) 151 mg/dL (70-99) 100 mg/dL (70-99) 215 mg/dL (70-99) Problem List Problems Medical Problems: (1) Abdominal abscess Status: Acute (2) Abdominal pain Status: Acute Assessment/Plan colocutaneous fistula, diverticulitis appreciate cards eval-ongoing plan surgery on 03/26 R/B/A d/w pt, risks, including, but not limited to: bleeding, infection, damage to surrounding structures, risk of anesthesia, risk of ostomy she appears to understand, and her questions are answered. Problems: LI HAMMOND MD Mar 22, 2017 12:30
--- NOTE | 2017-03-22 13:37 | CARD ---
APPROVED REPORT EXAM: Two-dimensional and M-mode echocardiogram with Doppler and color Doppler. Other Information Quality : Good INDICATION Pre-Op 2D DIMENSIONS Left Atrium(2D)4.0 (1.6-4.0cm)IVSd1.4 (0.7-1.1cm) Aortic Root(2D)2.9 (2.0-3.7cm)LVDd5.1 (3.9-5.9cm) LVOT Diameter2.0 (1.8-2.4cm)PWd1.4 (0.7-1.1cm) LVDs3.5 (2.5-4.0cm)FS (%) 31.9 % SV72.8 mlLVEF(%)59.7 (>50%) Aortic Valve AoV Peak Jason.140.5cm/sAoV VTI20.3cm AO Peak GR.7.9mmHgLVOT Peak Jason.111.5cm/s AO Mean GR.4mmHgAVA (VMAX)2.38cm2 JOSY (VTI)3.20cm2 Mitral Valve MV E Jlybtqjc994.7cm/sMV E Peak Gr.24mmHg MV DECEL [id number] A Nklrcyyw504.2cm/s MV E Mean Gr.12mmHgE/A Ratio0.7 Tricuspid Valve TR P. Vfywttlq973gl/sRAP BCMVLGVO2rcVl TR Peak Gr.06udUePTUB68uhPp LEFT VENTRICLE The left ventricle is normal size. There is mild to moderate concentric left ventricular hypertrophy. Left ventricle systolic function is mildly decreased. EF 40-45% There is moderate lateral wall hypok inesis. Tissue Doppler imaging reveals moderate left ventricular diastolic dysfunction. RIGHT VENTRICLE The right ventricle is normal size. The right ventricular systolic function is normal. ATRIA The left atrium is mildly dilated. The right atrium size is normal. The interatrial septum is intact with no evidence for an atrial septal defect or patent foramen ovale as noted on 2-D or Doppler imagi ng. AORTIC VALVE The aortic valve is calcified but opens well. Doppler and Color Flow revealed no significant aortic r egurgitation. There is no significant aortic valvular stenosis. MITRAL VALVE Mitral annular calcification is mild to moderate. Posterior leaflet appears restricted. There is no e vidence of mitral valve prolapse. There is moderate mitral valve stenosis. Calculated mitral valve ar ea is 1.5 cm2 with maximum pressure gradient of 24 mmHg and mean pressure gradient of 12 mmHg. Dopple r and Color-flow revealed moderate mitral regurgitation. TRICUSPID VALVE The tricuspid valve is normal in structure. Doppler and Color Flow revealed mild tricuspid regurgitat ion. There is no tricuspid valve prolapse or vegetation. There is no tricuspid valve stenosis. PULMONIC VALVE Doppler and Color Flow revealed no pulmonic valvular regurgitation. There is no pulmonic valvular baron nosis. GREAT VESSELS The aortic root is normal in size. The ascending aorta is normal in size. The IVC is normal in size a nd collapses >50% with inspiration. PERICARDIAL EFFUSION There is no pleural effusion. There is no evidence of significant pericardial effusion. Prominent epi cardial fat pad noted. Critical Notification Critical Value: No <Conclusion> Left ventricle systolic function is mildly decreased. EF 40-45% There is moderate lateral wall hypokinesis. There is moderate mitral valve stenosis. Calculated mitral valve area is 1.5 cm2 with maximum pressur e gradient of 24 mmHg and mean pressure gradient of 12 mmHg. Doppler and Color-flow revealed moderate mitral regurgitation.
[2017-03-22] MEDS: ONDANSETRON PF 4 MG/2 ML VIAL. IV PRN (14:21)
--- NOTE | 2017-03-22 14:57 | EKG ---
[facility] [address] [place] [address] Test Date: 2017-03-22 Test Time: 14:51:36 Pat Name: SAFIA MIRANDA Department: Room: 422 1 Gender: F Manager Agriculture: [place] : 1945 Requested By: KENDRA RAMSEY Order Number: [id number] Reading MD: Juan Diego Mcclellan MD Measurements Intervals [place] Rate: 90 P: -13 MN: 146 QRS: 13 QRSD: 98 T: 69 QT: 382 QTc: 472 Interpretive Statements SINUS RHYTHM Electronically Signed On 03-22-2017 16:08:26 PATIENT CARRIER by Juan Diego Mcclellan MD
[2017-03-22 15:00] VITALS: BP 100/54
[2017-03-22 19:15] VITALS: BP 102/52
[2017-03-22] MEDS: FAMOTIDINE 20 MG TABLET. PO SCH (21:29)
[2017-03-22 22:55] VITALS: BP 100/56
[2017-03-23 03:06] VITALS: BP 88/55
[2017-03-23] MEDS: MEROPENEM IV Push 500 MG VIAL. IVP SCH ×3 (05:37→21:19)
[2017-03-23 07:00] VITALS: BP 99/66
--- NOTE | 2017-03-23 08:21 | PDOC ---
SURGICAL PROGRESS NOTE Subjective Pt denies complaints, eladio PO Vital Signs Vital Signs Date Time Temp Pulse Resp B/P (MAP) Pulse Ox O2 Delivery O2 Flow Rate FiO2 03/23/17 03:06 97.8 83 16 88/55 (66) 97 Room Air 97.8 I&O Intake and Output 03/23/17 07:00 Intake Total 360 ml Output Total 2000 ml Balance -1640 ml Intake Oral 360 ml Output Urine Total 2000 ml # Voids 6 General: Alert, Oriented X3, Cooperative, No acute distress Abdomen: Soft, No tenderness, Other (drain with some output) Labs Laboratory Tests Test 03/21/17 11:31 03/21/17 16:58 03/21/17 21:50 03/22/17 07:30 Glucose (Fingerstick) 123 mg/dL (70-99) 151 mg/dL (70-99) 100 mg/dL (70-99) 110 mg/dL (70-99) Test 03/22/17 09:28 03/22/17 10:47 03/22/17 16:46 03/22/17 21:12 Glucose (Fingerstick) 215 mg/dL (70-99) 161 mg/dL (70-99) 116 mg/dL (70-99) 82 mg/dL (70-99) Test 03/23/17 07:31 Glucose (Fingerstick) 100 mg/dL (70-99) Laboratory Tests Test 03/22/17 09:28 03/22/17 10:47 03/22/17 16:46 03/22/17 21:12 Glucose (Fingerstick) 215 mg/dL (70-99) 161 mg/dL (70-99) 116 mg/dL (70-99) 82 mg/dL (70-99) Test 03/23/17 07:31 Glucose (Fingerstick) 100 mg/dL (70-99) Problem List Problems Medical Problems: (1) Abdominal abscess Status: Acute (2) Abdominal pain Status: Acute Assessment/Plan d/w pt option of cont drain and abx vs surgical intervention pt very interested in surgical repair she is a poor surgical candidate given obesity and cardiac issues tentatively scheduled for 03/26 Problems: LI HAMMOND MD Mar 23, 2017 08:21
[2017-03-23] MEDS: ASPIRIN CHEWABLE 81 MG TABLET. PO SCH ×3 (09:00→19:21)
[2017-03-23] MEDS: METOPROLOL SUCC 24HR ER 25 MG TAB.ER.24H. PO SCH (09:00)
--- NOTE | 2017-03-23 09:02 | PDOC ---
Provider Note Provider Note vss, labs ok- echo noted - or planned 03/26 MILENA MCMILLAN MD Mar 23, 2017 09:02
[2017-03-23] MEDS: LACTOBACILLUS RHAMNOSUS GG 1 CAPSULE. PO SCH ×2 (09:23→21:19)
[2017-03-23] MEDS: DICLOFENAC SODIUM 25 MG TABLET.DR PO SCH (09:23)
[2017-03-23] MEDS: FERROUS SULFATE 325 MG TABLET. PO SCH (09:23)
[2017-03-23] MEDS: FLUCONAZOLE 100 MG TABLET. PO SCH (09:24)
[2017-03-23] MEDS: LINEZOLID 600 MG TABLET PO SCH ×2 (09:26→21:18)
--- NOTE | 2017-03-23 10:35 | PDOC ---
Infectious Disease Note Subjective Subjective Comfortable Denies pain PICC - ok Drainage around drain - better ROS ROS GEN: Denies fevers, chills, sweats HEENT: Denies blurred vision, sore throat CV: Denies chest pain RESP: Denies shortness of air, cough GI: Denies n/v/d NEURO: Denies confusion, dizziness MSK: Denies weakness, joint pain/swelling Vital Sign Vital Signs Vital Signs Date Time Temp Pulse Resp B/P (MAP) Pulse Ox O2 Delivery O2 Flow Rate FiO2 03/23/17 09:00 93 99/66 03/23/17 07:00 97.7 18 96 Room Air 97.7 Physical Exam PHYSICAL EXAM GENERAL: NAD, Alert - in chair HEENT: PERRL, OC/OP -clear NECK: Supple, no JVD, no LN LUNGS: Clear HEART: S1S2, no gallop, no murmur ABD: Soft, NT, no organomegaly, no rebound, Drain in place EXT: No edema, no cyanosis MARKETING SUPPORT COORDINATOR: Alert, oriented x 3, no focal neurologic deficit SKIN: No rash IV: RUE PICC - clean Labs Lab Laboratory Tests Test 03/22/17 10:47 03/22/17 16:46 03/22/17 21:12 03/23/17 07:31 Glucose (Fingerstick) 161 mg/dL (70-99) 116 mg/dL (70-99) 82 mg/dL (70-99) 100 mg/dL (70-99) Micro Klebsiella pneumoniae Moderate growth AEROBIC RES 2 Final Yeast Moderate growth Request for further identification must be made within 1 week. AEROBIC RES 3 Final Comment Vancomycin-resistant Enterococcus (Enterococcus faecium) Heavy growth AEROBIC RES 4 Final Comment Pseudomonas aeruginosa Moderate growth CONTINUED ON NEXT PAGE RUN DATE: 03/20/17 PAGE 2 RUN TIME: 0824 [facility] [address] [place] [address] M.D., Dental Ceramist Assistant SPEC: [id number] PATIENT: SAFIA MIRANDA [id number] ( Continued) Procedure Result ANTIMICROBIAL SUSCEPTIBILITY Final Comment S = Susceptible; I = Intermediate; R = Resistant P = Positive; N = Negative MICS are expressed in micrograms per mL Antibiotic RSLT#1 RSLT#2 RSLT#3 RSLT#4 Amikacin S Amoxicillin/Clavulanic Acid S Ampicillin R Cefepime S S Ceftazidime S Ceftriaxone S Cefuroxime I Ciprofloxacin S S Ertapenem S Gentamicin S S Imipenem S S Levofloxacin S S Linezolid S Meropenem S Penicillin R Piperacillin R S Quinupristin/Dalfopristin S Tetracycline S Ticarcillin R Tobramycin S S Trimethoprim/Sulfa S Vancomycin R Performed at: [address] [id number] Supervisor Powder And Primer Canning: Ashia Rogers MD, Phone: [phone] SUSCEPTIBILITY TESTING AEROBIC Final Final report SUSCEPTIBILITY TESTING AEROBIC Final Letitia tropicalis Letitia tropicalis susceptibility results: 5-Flucytosine 0.12 mcg/mL Sensitive Itraconazole 1 mcg/mL Resistant Fluconazole 1 mcg/mL Sensitive Voriconazole 0.12 mcg/mL Sensitive Performed at: [address] [id number] Supervisor Pow[employer] Canning: Ashia Rogers MD, Phone: [phone] Objective Assessment 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 Appreciate Gen Surgery eval Fever - better Pus draining around insertion site -better Abdominal abscess, measuring 6.4 x 4.9 cm. s/p drain 03/12. Klebsiella ( R to Zosyn, S Cipro/Levo), VRE (R PCN) and PSAE ( R to ticarcillin only otherwise sensitive, S Cipro/Levo) and C tropicalis h/o Strep anginosis and Bacteroides Ventral hernia DM HTN PCN allergy/amox also - hives and swelling Plan Plan of Care Reviewed Dr. Hall's note - Await surgical procedure 03/26 Cont Zyvox (03/14)/meropenem/Fluconazole Probiotics Contact isolation TERRA BEACH MD Mar 23, 2017 10:35
[2017-03-23 11:00] VITALS: BP 96/60
[2017-03-23 15:00] VITALS: BP 100/72
[2017-03-23] MEDS: FAMOTIDINE 20 MG TABLET. PO SCH (21:19)
[2017-03-23 23:08] VITALS: BP 92/61
[2017-03-24] VITALS (9 sets, daily range): BP systolic 85–146; BP diastolic 39–72
[2017-03-24] MEDS: MEROPENEM IV Push 500 MG VIAL. IVP SCH ×3 (05:35→21:23)
[2017-03-24] MEDS ORDERED: IV RINGERS,LACTATED 1000ML 1,000 ML IV SCH (07:32)
[2017-03-24] MEDS ORDERED: HYDROmorphone 2 MG/ML VIAL IV PRN (07:45)
[2017-03-24] MEDS ORDERED: PROCHLORPERAZINE 10 MG/2 ML VIAL. IV PRN (07:45)
[2017-03-24] MEDS ORDERED: LIDOCAINE 1% PF 2 ML VIAL. ID PRN (07:45)
[2017-03-24] MEDS ORDERED: MORPHINE SULFATE 2 MG/ML DISP.SYRIN. IV PRN (07:45)
[2017-03-24] MEDS: GLIMEPIRIDE 2 MG TABLET. PO SCH (08:00)
--- NOTE | 2017-03-24 08:17 | PDOC ---
DYLON OCHOA STORAGE ENGINEER 03/24/17 0817: SURGICAL PROGRESS NOTE Subjective sitting up questioning why surgery today Vital Signs Vital Signs Date Time Temp Pulse Resp B/P (MAP) Pulse Ox O2 Delivery O2 Flow Rate FiO2 03/24/17 03:20 97.6 90 18 105/54 (71) 95 Room Air 97.6 03/23/17 15:00 2.0 I&O Intake and Output 03/24/17 06:59 Intake Total 540 ml Output Total 135 ml Balance 405 ml Intake Oral 540 ml Drainage Total 135 ml # Voids 6 # Bowel Movements 1 General: Alert, Oriented X3, Cooperative, No acute distress Abdomen: Soft, Other (NTTP) Labs Laboratory Tests Test 03/22/17 09:28 03/22/17 10:47 03/22/17 16:46 03/22/17 21:12 Glucose (Fingerstick) 215 mg/dL (70-99) 161 mg/dL (70-99) 116 mg/dL (70-99) 82 mg/dL (70-99) Test 03/23/17 07:31 03/23/17 11:40 03/23/17 16:47 03/23/17 21:06 Glucose (Fingerstick) 100 mg/dL (70-99) 224 mg/dL (70-99) 96 mg/dL (70-99) 108 mg/dL (70-99) Laboratory Tests Test 03/23/17 11:40 03/23/17 16:47 03/23/17 21:06 Glucose (Fingerstick) 224 mg/dL (70-99) 96 mg/dL (70-99) 108 mg/dL (70-99) Problem List Problems Medical Problems: (1) Abdominal abscess Status: Acute (2) Abdominal pain Status: Acute Assessment/Plan fistula possible OR today, Dr Hall to FU Problems: LI HALL MD 03/24/17 1025: SURGICAL PROGRESS NOTE Assessment/Plan Pt seen and examined. Agree with Ms. Ochoa's note Pt without c/o, denies pain abd soft, NTTP, drain with bilious output d/w pt and pt's son extensively surgery is offered today, secondary to cards concern for being off aspirin. Surgery is moved up two days to reduce that risk Pt is poor surgical candidate secondary to multiple previous surgery, obesity, cardiac status, fistula pt offered conservative management (abx, drain) to see if would heal, or to delay surgery until 03/26 However, pt is adamant about proceeding with surgery R/B/A d/w pt and pt's son extensively. Risks, including, but not limited to: bleeding, infection, damage to surrounding structures, risk of anesthesia, risk of anastomotic leak, need for ostomy they appear to understand, their questions are answered and they agree to proceed. Problems: DYLON OCHOA APRN Mar 24, 2017 08:17 LI HALL MD Mar 24, 2017 10:25
[2017-03-24] MEDS: LINEZOLID 600 MG TABLET PO SCH ×2 (09:00→21:20)
[2017-03-24] MEDS: LACTOBACILLUS RHAMNOSUS GG 1 CAPSULE. PO SCH ×2 (09:00→21:20)
[2017-03-24] MEDS: DICLOFENAC SODIUM 25 MG TABLET.DR PO SCH (09:00)
[2017-03-24] MEDS: FLUCONAZOLE 100 MG TABLET. PO SCH (09:00)
[2017-03-24] MEDS: FUROSEMIDE 40 MG TABLET. PO SCH (09:00)
[2017-03-24] MEDS: FERROUS SULFATE 325 MG TABLET. PO SCH (09:00)
[2017-03-24] MEDS: METOPROLOL SUCC 24HR ER 25 MG TAB.ER.24H. PO SCH (09:00)
[2017-03-24] MEDS ORDERED: BUPIVAC MPF-EPI 0.5%-1:200000 30 ML VIAL. ONE (10:28)
--- NOTE | 2017-03-24 11:57 | PDOC ---
GENERAL General: vss and afebrile. surgery at high noon today. son in attendance. poor surgical candidate noted and had to have bi-pap, etc after prior surgery. chest clear and heart regular and abdomen benign. will followup post-op and continue same. . Problems: VITAL SIGNS Vital Signs: Vital Signs Date Time Temp Pulse Resp B/P (MAP) Pulse Ox O2 Delivery O2 Flow Rate FiO2 03/24/17 11:00 97.9 95 16 107/39 (61) 97 Room Air 97.9 03/23/17 15:00 2.0 I & O I & O Intake and Output 03/24/17 07:00 Intake Total 540 ml Output Total 135 ml Balance 405 ml Intake Oral 540 ml Drainage Total 135 ml # Voids 6 # Bowel Movements 1 ALLERGIES Allergies: Allergies Coded Allergies Type Severity Reaction Last Updated Verified Penicillins Allergy Intermediate TOLERATES MERREM, CEFPODOXIME 03/12/17 Yes adhesive tape Allergy Intermediate Rash 10/15/15 Yes latex Allergy Intermediate Rash 12/21/14 Yes I S O L A T I O N *CONTACT* Allergy Unknown 03/16/17 Yes metformin Adverse Reaction Intermediate nausea/diarrhea 10/15/15 Yes MEDS Medications: Current Medications Medications (Trade) Dose Ordered Sig/Michelle Start Time Stop Time Status Last Admin Dose Admin Acetaminophen (Tylenol) 650 mg PRN QID PRN 03/09/17 20:30 03/17/17 19:53 650 MG Acetaminophen/ Hydrocodone Bitart (Lortab 7.5/325) 1 tab PRN Q6HRS PRN 03/12/17 18:15 03/22/17 12:01 1 TAB Aspirin (Children'S Aspirin) 81 mg DAILY 03/10/17 15:00 03/19/17 10:01 81 MG Bupivacaine HCl/ Epinephrine Bitart (Sensorcain-Mpf Epi 0.5%-1:[id number]) 30 ml STK-MED ONCE 03/24/17 10:28 03/24/17 10:29 DC Ceftriaxone Sodium 50 ml @ 100 mls/hr 1X ONCE 03/09/17 09:30 03/09/17 09:55 DC Clopidogrel Bisulfate (Plavix) 75 mg DAILY 03/10/17 15:00 03/22/17 09:10 DC 03/19/17 10:00 75 MG Diclofenac Sodium (Voltaren) 75 mg DAILY 03/10/17 14:30 03/23/17 09:23 75 MG Famotidine (Pepcid) 20 mg QHS 03/10/17 21:00 03/23/17 21:19 20 MG Fentanyl Citrate (Fentanyl 2ml Vial) 100 mcg 1X ONCE 03/12/17 13:30 03/12/17 13:33 DC 03/12/17 13:50 25 MCG Ferrous Sulfate (Feosol) 325 mg DAILY 03/10/17 15:00 03/23/17 09:23 325 MG Fluconazole (Diflucan) 200 mg DAILY 03/22/17 09:30 03/23/17 09:24 200 MG Flumazenil (Romazicon) 0.5 mg STK-MED ONCE 03/12/17 13:20 03/12/17 13:21 DC Furosemide (Lasix) 40 mg QODAY 03/14/17 09:00 03/22/17 09:39 40 MG Glimepiride (Amaryl) 0.5 mg DAILY08 03/24/17 08:00 Hydromorphone HCl (Dilaudid) 0.5 mg PRN Q10MIN PRN 03/24/17 07:45 03/25/17 07:44 Info (Do NOT chart on this entry -- for MONITORING) 1 each PRN DAILY PRN 03/19/17 14:00 03/21/17 13:59 DC Iohexol (Omnipaque 240 Mg/ml) 50 ml STK-MED ONCE 03/19/17 13:55 03/19/17 13:56 DC Iohexol (Omnipaque 300 Mg/ml) 75 ml 1X ONCE 03/09/17 08:45 03/09/17 08:46 DC 03/09/17 08:50 75 ML Lactobacillus Rhamnosus (Culturelle) 1 cap BID 03/12/17 21:00 03/23/17 21:19 1 CAP Lidocaine HCl (Xylocaine-Mpf 1% Vial) 2 ml 1X PRN PRN 03/24/17 07:45 03/25/17 07:44 Lidocaine/Sodium Bicarbonate (Buffered Lidocaine 1%) 20 ml 1X ONCE 03/12/17 13:30 03/12/17 13:33 DC 03/12/17 13:50 4 ML Linezolid (Zyvox) 600 mg BID 03/14/17 13:15 03/23/17 21:18 600 MG Meropenem (Merrem) 500 mg Q8HRS 03/16/17 14:00 03/24/17 05:35 500 MG Meropenem 500 mg/ Sodium Chloride 50 ml @ 100 mls/hr Q8HRS 03/09/17 13:00 03/16/17 12:59 DC 03/16/17 06:09 100 MLS/HR Metoprolol Succinate (Toprol Xl) 12.5 mg DAILY 03/23/17 09:00 Metoprolol Tartrate (Lopressor) 12.5 mg BID 03/10/17 15:00 03/10/17 21:01 DC 03/10/17 16:01 12.5 MG Midazolam HCl (Versed) 2 mg 1X ONCE 03/12/17 13:30 03/12/17 13:33 DC 03/12/17 13:50 1 MG Morphine Sulfate 1 mg PRN Q10MIN PRN 03/24/17 07:45 03/25/17 07:44 Naloxone HCl (Narcan) 0.4 mg STK-MED ONCE 03/12/17 13:20 03/12/17 13:21 DC Ondansetron HCl (Zofran) 4 mg PRN Q6HRS PRN 03/13/17 09:00 03/22/17 14:21 4 MG Prochlorperazine Edisylate (Compazine) 5 mg PACU PRN PRN 03/24/17 07:45 03/25/17 07:44 Ringer's Solution 1,000 ml @ 30 mls/hr Q24H 03/24/17 07:32 03/24/17 19:31 Sodium Chloride 1,000 ml @ 100 mls/hr 1X ONCE 03/10/17 21:00 03/11/17 06:59 DC 03/10/17 21:00 100 MLS/HR LAB Lab: Laboratory Tests Test 03/23/17 16:47 03/23/17 21:06 03/24/17 08:10 03/24/17 11:47 Glucose (Fingerstick) 96 mg/dL (70-99) 108 mg/dL (70-99) 134 mg/dL (70-99) 116 mg/dL (70-99) MERLENE ARAUZ MD Mar 24, 2017 11:57
[2017-03-24] MEDS ORDERED: fentaNYL PF VIAL 100 MCG/2 ML VIAL ONE ×2 (14:38→16:01)
[2017-03-24] MEDS ORDERED: NEOSTIGMINE 10 MG/10 ML VIAL. ONE (14:38)
[2017-03-24] MEDS ORDERED: ROCURONIUM 50 MG/5 ML VIAL. ONE ×2 (14:38→15:53)
[2017-03-24] MEDS ORDERED: PHENYLEPHRINE in 0.9% NACL PF 1 MG/10 ML DISP.SYRIN. IV ONE (14:40)
[2017-03-24] MEDS ORDERED: PROPOFOL 20 ML IV ONE (14:40)
[2017-03-24] MEDS ORDERED: LIDOCAINE 2% PF Vial for OR 5 ML VIAL. ONE (14:40)
[2017-03-24] MEDS ORDERED: ONDANSETRON PF 4 MG/2 ML VIAL. ONE (14:40)
[2017-03-24] MEDS ORDERED: DEXAMETHASONE SOD PHOS 20 MG/5 ML VIAL. ONE (14:40)
[2017-03-24] MEDS ORDERED: GLYCOPYRROLATE 1 MG/5 ML VIAL. ONE (15:11)
[2017-03-24] MEDS ORDERED: MORPHINE SULFATE 10 MG/ML VIAL. ONE (16:02)
[2017-03-24] MEDS ORDERED: ALBUMIN HUMAN 5% 500 ML IV ONE (17:03)
[2017-03-24] MEDS ORDERED: PHENYLEPHRINE 10 MG/ML VIAL. ONE (17:27)
[2017-03-24 17:55] LABS: HEMOGLOBIN 4.3 g/dL (12.0-15.5)
[2017-03-24] MEDS ORDERED: ROCURONIUM 100 MG/10 ML VIAL. ONE (17:57)
[2017-03-24] MEDS: ONDANSETRON PF 4 MG/2 ML VIAL. IV PRN (20:40)
[2017-03-24] MEDS ORDERED: 0.9 % SODIUM CHLORIDE 10 ML DISP.SYRIN. IV PRN (20:45)
[2017-03-24] MEDS ORDERED: NALOXONE 0.4 MG/ML VIAL. IV PRN (20:45)
[2017-03-24] MEDS: ENOXAPARIN 40 MG/0.4 ML SYRINGE. SQ SCH (20:45)
[2017-03-24 20:46] LABS: HEMATOCRIT 46.9 % (36.0-47.0); HEMOGLOBIN 15.2 g/dL (12.0-15.5); RED BLOOD COUNT 5.29 x10^6/uL (3.50-5.40); RED CELL DISTRIBUTION WIDTH 17.3 % (11.5-14.5); WHITE BLOOD COUNT 9.4 x10^3/uL (4.0-11.0)
--- NOTE | 2017-03-24 21:10 | PDOC4 ---
OPERATIVE NOTE Date: Date: Mar 24, 2017 Pre-Op Diagnosis: colocutaneous fistula Post-Op Diagnosis: same, diverticulitis, infected mesh Procedure Performed: Laparoscopic converted to open exploration, extensive lysis of adhesions, remove of old mesh, subtotal colectomy, small bowel resection, incision hernia repair Surgeon: Silvano Hammond Anesthesia Type: GETA Blood Loss: 500 Specimans Obtained: colon, small bowel, mesh Findings: extensive adhesions with locked in abdomen, morbid obesity, right lower quadrant abscess associated with infected mesh and diverticulitis Complications: none Operative Note: After obtaining informed consent, patient was taken to the OR and induced under GETA, and prepped in the usual fashion. 5 mm port was placed in left upper quadrant under laparoscopic guidance. This demonstrated extensively locked in abdomen. The procedure was converted to open. Midline incision was made using cautery. The abdomen was found to be locked and an extensive lysis of adhesions was performed which took several hours. Ultimately, the abdominal cavity was explored. Stomach was normal in appearance. Small bowel was noted to be involved in the infected process related to diverticulitis from the sigmoid colon and infected mesh in the right lower quadrant. This involved segment was removed with PHILIP staplers and a side to side anastomosis was created using a 75 PHILIP and sealed with a TA 60. Mesentery was closed with 3 0 chromic. Anastomosis was noted to be patent, under no tension and viable. Ultimately, 200 cm of small bowel was noted. The right colon was extensively denuded secondary to the adhesions from the infected mesh in the right lower quadrant. Sigmoid colon was noted to be involved by diverticulitis. As such, a subtotal colectomy was performed. A side to side ileal sigmoid anastamosis was created in the same fashion as the previous anastomosis. The colon was noted to be very redundant throughout and the mesentery was taken using ligasure device. Extensive fragments of mesh was noted throughout the abdomen, and all pieces that were visualized were removed. The abscess cavity in the right lower quadrant was extensively debrided and the drain was removed. Ureter was noted to be intact on the right by Lena's sign and the left retroperitoneum was not significantly disturbed. Mesentery to the colon was resected near the colon wall. Liver was normal in appearance, gallbladder surgically absent. Given the extensive surgery, patient's overall medical status and concern for anastomotic leak, a protecting loop jejunostomy in the left upper quadrant was created approximately 80 cm distal to the ligament of treitz, and proximal to all anastomoses. The previous abdominal wall skin graft appeared to be compromised by this dissection as it was only overlying hernia sac. It was resected. Fascial defect/hernia was reapproximated with 2 looped 0 PDS after copious irrigation. No evidence of bleeding or other pathology at the time of closure. Neelima placed in wound and secured with 3 0 nylon. Skin repaired with 0 vicryl, 3 0 vicryl and 4 0 monocryl. Dressing placed. Jejunostomy matured with 3 0 chromic. All counts were correct. No immediate complications. Wound class dirty-4. This procedure was extremely difficult throughout secondary to hostile abdomen, extensive adhesions, infection, morbid obesity and extensive mesh. Patient tolerated procedure well but did require transfusions and will be monitored in the ICU. SILVANO HAMMOND MD Mar 24, 2017 21:10
[2017-03-24] MEDS: FAMOTIDINE 20 MG TABLET. PO SCH (21:20)
[2017-03-24] MEDS: IV RINGERS,LACTATED 1000ML 1,000 ML IV SCH (21:24)
[2017-03-24] MEDS: IV NORMAL SALINE 1000ML BAG 1,000 ML IV SCH (23:15)
[2017-03-25] VITALS (23 sets, daily range): BP systolic 91–140; BP diastolic 48–78
[2017-03-25] MEDS: IV RINGERS,LACTATED 1000ML 1,000 ML IV SCH ×2 (01:31→12:32)
[2017-03-25] MEDS: ONDANSETRON PF 4 MG/2 ML VIAL. IV PRN (04:53)
[2017-03-25 06:10] LABS: BASO % 0 % (0-3); EOS % 0 % (0-3); HEMATOCRIT 45.6 % (36.0-47.0); HEMOGLOBIN 14.9 g/dL (12.0-15.5); LYMPH # 0.4 x10^3/uL (1.0-4.8); LYMPH % 1 % (24-48); MEAN CORPUSCULAR HEMOGLOBIN 29 pg (25-35); MEAN CORPUSCULAR HGB CONC 33 g/dL (31-37); MEAN CORPUSCULAR VOLUME 88 fL (79-100); MONO % 2 % (0-9); NEUT % 97 % (31-73); PLATELET COUNT 137 x10^3/uL (140-400); RED BLOOD COUNT 5.16 x10^6/uL (3.50-5.40); RED CELL DISTRIBUTION WIDTH 17.2 % (11.5-14.5); WHITE BLOOD COUNT 28.5 x10^3/uL (4.0-11.0)
[2017-03-25 06:26] LABS: CALCIUM 8.2 mg/dL (8.5-10.1); CREATININE 1.1 mg/dL (0.6-1.0); POTASSIUM 4.9 mmol/L (3.5-5.1)
[2017-03-25] MEDS ORDERED: PROCHLORPERAZINE 10 MG/2 ML VIAL. IV PRN (07:45)
[2017-03-25] MEDS: GLIMEPIRIDE 2 MG TABLET. PO SCH (08:00)
[2017-03-25 08:22] LABS: HEMATOCRIT 45.2 % (36.0-47.0); HEMOGLOBIN 14.6 g/dL (12.0-15.5); RED BLOOD COUNT 5.12 x10^6/uL (3.50-5.40); RED CELL DISTRIBUTION WIDTH 17.2 % (11.5-14.5); WHITE BLOOD COUNT 26.5 x10^3/uL (4.0-11.0)
--- NOTE | 2017-03-25 08:23 | RAD ---
KUB Clinical Indication: POST OP KUB IN OR, POST SIGMOIDECTOMY. Comparison: CT abdomen and pelvis 03/09/2017. Findings: Catheter extends from the pelvis, tip is in the mid abdomen. Finding may be a surgical drain. There is a dilated small bowel loop in the left upper quadrant. Minimal scattered air in bowel. Cholecystectomy clips. Bowel gas pattern nonspecific. IMPRESSION: There is a single dilated small bowel loop in the left upper quadrant. Otherwise no evidence of obstruction.
[2017-03-25 08:32] LABS: INR 1.2 (0.8-1.1); PROTHROMBIN TIME PATIENT 14.3 SEC (11.7-14.0)
[2017-03-25] MEDS: LINEZOLID 600 MG TABLET PO SCH (09:00)
[2017-03-25] MEDS: FLUCONAZOLE 100 MG TABLET. PO SCH (09:00)
[2017-03-25] MEDS: LACTOBACILLUS RHAMNOSUS GG 1 CAPSULE. PO SCH ×2 (09:00→20:50)
[2017-03-25] MEDS: ASPIRIN CHEWABLE 81 MG TABLET. PO SCH (09:00)
[2017-03-25] MEDS: FERROUS SULFATE 325 MG TABLET. PO SCH (09:00)
[2017-03-25] MEDS: METOPROLOL SUCC 24HR ER 25 MG TAB.ER.24H. PO SCH (09:00)
[2017-03-25] MEDS: DICLOFENAC SODIUM 25 MG TABLET.DR PO SCH (09:00)
--- NOTE | 2017-03-25 09:37 | PDOC ---
SURGICAL PROGRESS NOTE Subjective feels better NG in now, blood with placement, now bilious Vital Signs Vital Signs Date Time Temp Pulse Resp B/P (MAP) Pulse Ox O2 Delivery O2 Flow Rate FiO2 03/25/17 05:58 112 34 134/64 (87) 98 Nasal Cannula 3.0 03/25/17 04:00 97.3 97.3 I&O Intake and Output 03/25/17 07:00 Intake Total 982 ml Output Total 25 ml Balance 957 ml IV Total 982 ml Gastric Drainage Total 25 ml # Voids 215 General: Alert, Oriented X3, Cooperative, No acute distress HEENT: Other (NG bilious) Abdomen: Soft, Other (dressing dry, stoma pink) Labs Laboratory Tests Test 03/23/17 11:40 03/23/17 16:47 03/23/17 21:06 03/24/17 08:10 Glucose (Fingerstick) 224 mg/dL (70-99) 96 mg/dL (70-99) 108 mg/dL (70-99) 134 mg/dL (70-99) Test 03/24/17 11:47 03/24/17 17:45 03/24/17 20:19 03/24/17 20:42 Glucose (Fingerstick) 116 mg/dL (70-99) 195 mg/dL (70-99) Hemoglobin 4.3 g/dL (12.0-15.5) 15.2 g/dL (12.0-15.5) Hematocrit 13.0 % (36.0-47.0) 46.9 % (36.0-47.0) Mean Corpuscular Hemoglobin Concent 33 g/dL (31-37) 33 g/dL (31-37) White Blood Count 9.4 x10^3/uL (4.0-11.0) Red Blood Count 5.29 x10^6/uL (3.50-5.40) Mean Corpuscular Volume 89 fL (79-100) Mean Corpuscular Hemoglobin 29 pg (25-35) Red Cell Distribution Width 17.3 % (11.5-14.5) Platelet Count 161 x10^3/uL (140-400) Test 03/25/17 05:05 03/25/17 08:00 White Blood Count 28.5 x10^3/uL (4.0-11.0) 26.5 x10^3/uL (4.0-11.0) Red Blood Count 5.16 x10^6/uL (3.50-5.40) 5.12 x10^6/uL (3.50-5.40) Hemoglobin 14.9 g/dL (12.0-15.5) 14.6 g/dL (12.0-15.5) Hematocrit 45.6 % (36.0-47.0) 45.2 % (36.0-47.0) Mean Corpuscular Volume 88 fL (79-100) 88 fL (79-100) Mean Corpuscular Hemoglobin 29 pg (25-35) 28 pg (25-35) Mean Corpuscular Hemoglobin Concent 33 g/dL (31-37) 32 g/dL (31-37) Red Cell Distribution Width 17.2 % (11.5-14.5) 17.2 % (11.5-14.5) Platelet Count 137 x10^3/uL (140-400) 111 x10^3/uL (140-400) Neutrophils (%) (Auto) 97 % (31-73) Lymphocytes (%) (Auto) 1 % (24-48) Monocytes (%) (Auto) 2 % (0-9) Eosinophils (%) (Auto) 0 % (0-3) Basophils (%) (Auto) 0 % (0-3) Neutrophils # (Auto) 27.5 x10^3uL (1.8-7.7) Lymphocytes # (Auto) 0.4 x10^3/uL (1.0-4.8) Monocytes # (Auto) 0.6 x10^3/uL (0.0-1.1) Eosinophils # (Auto) 0.0 x10^3/uL (0.0-0.7) Basophils # (Auto) 0.0 x10^3/uL (0.0-0.2) Sodium Level 137 mmol/L (136-145) Potassium Level 4.9 mmol/L (3.5-5.1) Chloride Level 104 mmol/L (98-107) Carbon Dioxide Level 15 mmol/L (21-32) Anion Gap 18 (6-14) Blood Urea Nitrogen 31 mg/dL (7-20) Creatinine 1.1 mg/dL (0.6-1.0) Estimated GFR (Cockcroft-Gault) 49.0 Glucose Level 288 mg/dL (70-99) Calcium Level 8.2 mg/dL (8.5-10.1) Prothrombin Time 14.3 SEC (11.7-14.0) Prothromb Time International Ratio 1.2 (0.8-1.1) Laboratory Tests Test 03/24/17 11:47 03/24/17 17:45 03/24/17 20:19 03/24/17 20:42 Glucose (Fingerstick) 116 mg/dL (70-99) 195 mg/dL (70-99) Hemoglobin 4.3 g/dL (12.0-15.5) 15.2 g/dL (12.0-15.5) Hematocrit 13.0 % (36.0-47.0) 46.9 % (36.0-47.0) Mean Corpuscular Hemoglobin Concent 33 g/dL (31-37) 33 g/dL (31-37) White Blood Count 9.4 x10^3/uL (4.0-11.0) Red Blood Count 5.29 x10^6/uL (3.50-5.40) Mean Corpuscular Volume 89 fL (79-100) Mean Corpuscular Hemoglobin 29 pg (25-35) Red Cell Distribution Width 17.3 % (11.5-14.5) Platelet Count 161 x10^3/uL (140-400) Test 03/25/17 05:05 03/25/17 08:00 White Blood Count 28.5 x10^3/uL (4.0-11.0) 26.5 x10^3/uL (4.0-11.0) Red Blood Count 5.16 x10^6/uL (3.50-5.40) 5.12 x10^6/uL (3.50-5.40) Hemoglobin 14.9 g/dL (12.0-15.5) 14.6 g/dL (12.0-15.5) Hematocrit 45.6 % (36.0-47.0) 45.2 % (36.0-47.0) Mean Corpuscular Volume 88 fL (79-100) 88 fL (79-100) Mean Corpuscular Hemoglobin 29 pg (25-35) 28 pg (25-35) Mean Corpuscular Hemoglobin Concent 33 g/dL (31-37) 32 g/dL (31-37) Red Cell Distribution Width 17.2 % (11.5-14.5) 17.2 % (11.5-14.5) Platelet Count 137 x10^3/uL (140-400) 111 x10^3/uL (140-400) Neutrophils (%) (Auto) 97 % (31-73) Lymphocytes (%) (Auto) 1 % (24-48) Monocytes (%) (Auto) 2 % (0-9) Eosinophils (%) (Auto) 0 % (0-3) Basophils (%) (Auto) 0 % (0-3) Neutrophils # (Auto) 27.5 x10^3uL (1.8-7.7) Lymphocytes # (Auto) 0.4 x10^3/uL (1.0-4.8) Monocytes # (Auto) 0.6 x10^3/uL (0.0-1.1) Eosinophils # (Auto) 0.0 x10^3/uL (0.0-0.7) Basophils # (Auto) 0.0 x10^3/uL (0.0-0.2) Sodium Level 137 mmol/L (136-145) Potassium Level 4.9 mmol/L (3.5-5.1) Chloride Level 104 mmol/L (98-107) Carbon Dioxide Level 15 mmol/L (21-32) Anion Gap 18 (6-14) Blood Urea Nitrogen 31 mg/dL (7-20) Creatinine 1.1 mg/dL (0.6-1.0) Estimated GFR (Cockcroft-Gault) 49.0 Glucose Level 288 mg/dL (70-99) Calcium Level 8.2 mg/dL (8.5-10.1) Prothrombin Time 14.3 SEC (11.7-14.0) Prothromb Time International Ratio 1.2 (0.8-1.1) Problem List Problems Medical Problems: (1) Abdominal abscess Status: Acute (2) Abdominal pain Status: Acute Assessment/Plan POD#1 Laparoscopic converted to open exploration, extensive lysis of adhesions, remove of old mesh, subtotal colectomy, small bowel resection, incision hernia repair Add PPI NG labs stable Problems: DYLON OCHOA MACHINE MOVER Mar 25, 2017 09:37
--- NOTE | 2017-03-25 09:45 | RAD ---
ABDOMEN SUPINE UPRIGHT Clinical Indication: abdominal abscess, postop Comparison: KUB, prior day. Findings: Surgical drain is in place. Cholecystectomy clips. Suture material in the left abdomen at the level of L3-L4. Scattered air in the abdomen. Some of this may be free air given the prior day surgery. No dilated bowel is seen. IMPRESSION: Nonobstructive bowel gas pattern.
--- NOTE | 2017-03-25 09:47 | RAD ---
KUB Clinical Indication: CHECK NG PLACEMENT Comparison: KUB, earlier same day. Findings: Surgical drain is in place. There is enteric tube seen at the edge of the [id number], tip is in the proximal stomach near the fundus. Bowel gas pattern is nonspecific. IMPRESSION: Enteric tube tip is in the proximal stomach.
--- NOTE | 2017-03-25 10:32 | PDOC ---
Infectious Disease Note Subjective Subjective s/p surgery yesterday Now in ICU + belching and vomited earlier, feeling better now Pain controlled at the moment ROS ROS GEN: Denies fevers, chills, sweats CV: Denies chest pain RESP: Denies shortness of air, cough Vital Sign Vital Signs Vital Signs Date Time Temp Pulse Resp B/P (MAP) Pulse Ox O2 Delivery O2 Flow Rate FiO2 03/25/17 05:58 112 34 134/64 (87) 98 Nasal Cannula 3.0 03/25/17 04:00 97.3 97.3 Physical Exam PHYSICAL EXAM GENERAL: NAD HEENT: NGT LUNGS: Clear anteriorly, nonlabored HEART: S1S2 ABD: Soft, surgical dressing dry, ostomy : [place] EXT: No edema, no cyanosis VOLTAGE INSPECTOR: Awake, oriented x 3, no focal neurologic deficit SKIN: No rash RUE-PICC. clean Labs Lab Laboratory Tests Test 03/24/17 11:47 03/24/17 17:45 03/24/17 20:19 03/24/17 20:42 Glucose (Fingerstick) 116 mg/dL (70-99) 195 mg/dL (70-99) Hemoglobin 4.3 g/dL (12.0-15.5) 15.2 g/dL (12.0-15.5) Hematocrit 13.0 % (36.0-47.0) 46.9 % (36.0-47.0) Mean Corpuscular Hemoglobin Concent 33 g/dL (31-37) 33 g/dL (31-37) White Blood Count 9.4 x10^3/uL (4.0-11.0) Red Blood Count 5.29 x10^6/uL (3.50-5.40) Mean Corpuscular Volume 89 fL (79-100) Mean Corpuscular Hemoglobin 29 pg (25-35) Red Cell Distribution Width 17.3 % (11.5-14.5) Platelet Count 161 x10^3/uL (140-400) Test 03/25/17 05:05 03/25/17 08:00 White Blood Count 28.5 x10^3/uL (4.0-11.0) 26.5 x10^3/uL (4.0-11.0) Red Blood Count 5.16 x10^6/uL (3.50-5.40) 5.12 x10^6/uL (3.50-5.40) Hemoglobin 14.9 g/dL (12.0-15.5) 14.6 g/dL (12.0-15.5) Hematocrit 45.6 % (36.0-47.0) 45.2 % (36.0-47.0) Mean Corpuscular Volume 88 fL (79-100) 88 fL (79-100) Mean Corpuscular Hemoglobin 29 pg (25-35) 28 pg (25-35) Mean Corpuscular Hemoglobin Concent 33 g/dL (31-37) 32 g/dL (31-37) Red Cell Distribution Width 17.2 % (11.5-14.5) 17.2 % (11.5-14.5) Platelet Count 137 x10^3/uL (140-400) 111 x10^3/uL (140-400) Neutrophils (%) (Auto) 97 % (31-73) Lymphocytes (%) (Auto) 1 % (24-48) Monocytes (%) (Auto) 2 % (0-9) Eosinophils (%) (Auto) 0 % (0-3) Basophils (%) (Auto) 0 % (0-3) Neutrophils # (Auto) 27.5 x10^3uL (1.8-7.7) Lymphocytes # (Auto) 0.4 x10^3/uL (1.0-4.8) Monocytes # (Auto) 0.6 x10^3/uL (0.0-1.1) Eosinophils # (Auto) 0.0 x10^3/uL (0.0-0.7) Basophils # (Auto) 0.0 x10^3/uL (0.0-0.2) Sodium Level 137 mmol/L (136-145) Potassium Level 4.9 mmol/L (3.5-5.1) Chloride Level 104 mmol/L (98-107) Carbon Dioxide Level 15 mmol/L (21-32) Anion Gap 18 (6-14) Blood Urea Nitrogen 31 mg/dL (7-20) Creatinine 1.1 mg/dL (0.6-1.0) Estimated GFR (Cockcroft-Gault) 49.0 Glucose Level 288 mg/dL (70-99) Calcium Level 8.2 mg/dL (8.5-10.1) Prothrombin Time 14.3 SEC (11.7-14.0) Prothromb Time International Ratio 1.2 (0.8-1.1) Micro ANAEROBIC RES 1 Final No anaerobic growth in 72 hours. AEROBIC RES 1 Final Klebsiella pneumoniae AEROBIC RES 2 Final Yeast AEROBIC RES 3 Final Vancomycin-resistant Enterococcus (Enterococcus faecium) AEROBIC RES 4 Final Pseudomonas aeruginosa Antibiotic RSLT#1 RSLT#2 RSLT#3 RSLT#4 Amikacin S Amoxicillin/Clavulanic Acid S Ampicillin R Cefepime S S Ceftazidime S Ceftriaxone S Cefuroxime I Ciprofloxacin S S Ertapenem S Gentamicin S S Imipenem S S Levofloxacin S S Linezolid S Meropenem S Penicillin R Piperacillin R S Quinupristin/Dalfopristin S Tetracycline S Ticarcillin R Tobramycin S S Trimethoprim/Sulfa S Vancomycin R JAZZMINE CULT RES 1 Final Letitia tropicalis Objective Assessment s/p lap converted to open exploration, JAIRO, removal of infected mesh, subtotal colectomy, SBR and hernia repair, 03/24 Leukocytosis, likely reactive, (Dexamethasone pre-op) EC fistula Fever - better Abdominal abscess, measuring 6.4 x 4.9 cm. s/p drain 03/12. Klebsiella ( R to Zosyn, S Cipro/Levo), VRE (R PCN) and PSAE ( R to ticarcillin only otherwise sensitive, S Cipro/Levo) and C tropicalis h/o Strep anginosis and Bacteroides Ventral hernia DM HTN PCN allergy/amox also - hives and swelling Plan Plan of Care Cont Zyvox (03/14)/meropenem/Fluconazole Contact isolation f/u am labs D/w son Pt seen and examined, agree with above A and P D/W son at bedside SERAFIN MOTT APRN Mar 25, 2017 10:32 HUMAIRA RODNEY MD Mar 25, 2017 17:02
--- NOTE | 2017-03-25 11:02 | PDOC ---
GENERAL General: vss and afebrile. awake and alert and son in attendance. denies severe pain. abdomen bandaged and soft. operative report reviewed. chest clear and heart with mild sinus tach. O2 at 3L/NC. wbc increased to 26.5K but did receive steroids preop. Hb 14.5 after received blood during surgery with Hb during surgery being <5?. Platelet decreased to 111K and bun increased to 31 and creatinine increased to 1.1 and CO2 decreased to 15 on this am lab. will repeat bmp this pm and may need ABG if CO2 remains low. otherwise same and overall doing well. Problems: VITAL SIGNS Vital Signs: Vital Signs Date Time Temp Pulse Resp B/P (MAP) Pulse Ox O2 Delivery O2 Flow Rate FiO2 03/25/17 05:58 112 34 134/64 (87) 98 Nasal Cannula 3.0 03/25/17 04:00 97.3 97.3 I & O I & O Intake and Output 03/25/17 07:00 Intake Total 982 ml Output Total 25 ml Balance 957 ml IV Total 982 ml Gastric Drainage Total 25 ml # Voids 215 ALLERGIES Allergies: Allergies Coded Allergies Type Severity Reaction Last Updated Verified Penicillins Allergy Intermediate TOLERATES MERREM, CEFPODOXIME 03/12/17 Yes adhesive tape Allergy Intermediate Rash 10/15/15 Yes latex Allergy Intermediate Rash 12/21/14 Yes I S O L A T I O N *CONTACT* Allergy Unknown 03/16/17 Yes metformin Adverse Reaction Intermediate nausea/diarrhea 10/15/15 Yes MEDS Medications: Current Medications Medications (Trade) Dose Ordered Sig/Michelle Start Time Stop Time Status Last Admin Dose Admin Acetaminophen (Tylenol) 650 mg PRN QID PRN 03/09/17 20:30 03/17/17 19:53 650 MG Acetaminophen/ Hydrocodone Bitart (Lortab 7.5/325) 1 tab PRN Q6HRS PRN 03/12/17 18:15 03/22/17 12:01 1 TAB Albumin Human 500 ml @ As Directed STK-MED ONCE 03/24/17 17:03 03/24/17 17:04 DC Aspirin (Children'S Aspirin) 81 mg DAILY 03/10/17 15:00 03/19/17 10:01 81 MG Bupivacaine HCl/ Epinephrine Bitart (Sensorcain-Mpf Epi 0.5%-1:[id number]) 30 ml STK-MED ONCE 03/24/17 10:28 03/24/17 10:29 DC 03/24/17 15:56 10 ML Ceftriaxone Sodium 50 ml @ 100 mls/hr 1X ONCE 03/09/17 09:30 03/09/17 09:55 DC Clopidogrel Bisulfate (Plavix) 75 mg DAILY 03/10/17 15:00 03/22/17 09:10 DC 03/19/17 10:00 75 MG Dexamethasone Sodium Phosphate (Decadron) 20 mg STK-MED ONCE 03/24/17 14:40 03/24/17 14:41 DC Diclofenac Sodium (Voltaren) 75 mg DAILY 03/10/17 14:30 03/23/17 09:23 75 MG Enoxaparin Sodium (Lovenox 40mg Syringe) 40 mg Q24H 03/24/17 20:45 Famotidine (Pepcid) 20 mg QHS 03/10/17 21:00 03/24/17 21:20 20 MG Fentanyl Citrate (Fentanyl 2ml Vial) 100 mcg STK-MED ONCE 03/24/17 16:01 03/24/17 16:02 DC Ferrous Sulfate (Feosol) 325 mg DAILY 03/10/17 15:00 03/23/17 09:23 325 MG Fluconazole (Diflucan) 200 mg DAILY 03/22/17 09:30 03/25/17 10:51 DC 03/23/17 09:24 200 MG Fluconazole/ Sodium Chloride 100 ml @ 100 mls/hr Q24H 03/25/17 11:00 Flumazenil (Romazicon) 0.5 mg STK-MED ONCE 03/12/17 13:20 03/12/17 13:21 DC Furosemide (Lasix) 40 mg QODAY 03/14/17 09:00 03/22/17 09:39 40 MG Glimepiride (Amaryl) 0.5 mg DAILY08 03/24/17 08:00 Glycopyrrolate (Robinul) 1 mg STK-MED ONCE 03/24/17 15:11 03/24/17 15:12 DC Hydromorphone HCl 30 ml @ 0 mls/hr CONT PRN PRN 03/24/17 20:45 03/24/17 23:16 0 MLS/HR Hydromorphone HCl (Dilaudid) 0.5 mg PRN Q10MIN PRN 03/24/17 07:45 03/25/17 07:44 DC Info (Do NOT chart on this entry -- for MONITORING) 1 each PRN DAILY PRN 03/19/17 14:00 03/21/17 13:59 DC Iohexol (Omnipaque 240 Mg/ml) 50 ml STK-MED ONCE 03/19/17 13:55 03/19/17 13:56 DC Iohexol (Omnipaque 300 Mg/ml) 75 ml 1X ONCE 03/09/17 08:45 03/09/17 08:46 DC 03/09/17 08:50 75 ML Lactobacillus Rhamnosus (Culturelle) 1 cap BID 03/12/17 21:00 03/24/17 21:20 1 CAP Lidocaine HCl (Lidocaine Pf 2% Vial) 5 ml STK-MED ONCE 03/24/17 14:40 03/24/17 14:41 DC Lidocaine HCl (Xylocaine-Mpf 1% Vial) 2 ml 1X PRN PRN 03/24/17 07:45 03/25/17 07:44 DC Lidocaine/Sodium Bicarbonate (Buffered Lidocaine 1%) 20 ml 1X ONCE 03/12/17 13:30 03/12/17 13:33 DC 03/12/17 13:50 4 ML Linezolid 300 ml @ 300 mls/hr Q12HR 03/25/17 11:00 Linezolid (Zyvox) 600 mg BID 03/14/17 13:15 03/25/17 10:49 DC 03/24/17 21:20 600 MG Meropenem (Merrem) 500 mg Q8HRS 03/16/17 14:00 03/24/17 21:23 500 MG Meropenem 500 mg/ Sodium Chloride 50 ml @ 100 mls/hr Q8HRS 03/09/17 13:00 03/16/17 12:59 DC 03/16/17 06:09 100 MLS/HR Metoprolol Succinate (Toprol Xl) 12.5 mg DAILY 03/23/17 09:00 Metoprolol Tartrate (Lopressor) 12.5 mg BID 03/10/17 15:00 03/10/17 21:01 DC 03/10/17 16:01 12.5 MG Midazolam HCl (Versed) 2 mg 1X ONCE 03/12/17 13:30 03/12/17 13:33 DC 03/12/17 13:50 1 MG Morphine Sulfate 10 mg STK-MED ONCE 03/24/17 16:02 03/24/17 16:03 DC Naloxone HCl (Narcan) 0.4 mg PRN Q2MIN PRN 03/24/17 20:45 Neostigmine Methylsulfate (Bloxiverz) 10 mg STK-MED ONCE 03/24/17 14:38 03/24/17 14:39 DC Ondansetron HCl (Zofran) 4 mg STK-MED ONCE 03/24/17 14:40 03/24/17 14:41 DC Pantoprazole Sodium (Protonix Vial) 40 mg DAILYAC 03/25/17 10:15 Phenylephrine HCl (Corky-Synephrine Inj) 10 mg STK-MED ONCE 03/24/17 17:27 03/24/17 17:28 DC Prochlorperazine Edisylate (Compazine) 5 mg PRN Q4HRS PRN 03/25/17 07:45 Propofol 20 ml @ As Directed STK-MED ONCE 03/24/17 14:40 03/24/17 14:41 DC Ringer's Solution 1,000 ml @ 100 mls/hr Q10H 03/24/17 20:43 03/25/17 01:31 100 MLS/HR Rocuronium [place] (Zemuron) 100 mg STK-MED ONCE 03/24/17 17:57 03/24/17 17:58 DC Sodium Chloride 1,000 ml @ 25 mls/hr Q24H 03/24/17 20:43 03/24/17 23:15 25 MLS/HR Sodium Chloride (Normal Saline Flush) 3 ml QSHIFT PRN 03/24/17 20:45 LAB Lab: Laboratory Tests Test 03/24/17 11:47 03/24/17 17:45 03/24/17 20:19 03/24/17 20:42 Glucose (Fingerstick) 116 mg/dL (70-99) 195 mg/dL (70-99) Hemoglobin 4.3 g/dL (12.0-15.5) 15.2 g/dL (12.0-15.5) Hematocrit 13.0 % (36.0-47.0) 46.9 % (36.0-47.0) Mean Corpuscular Hemoglobin Concent 33 g/dL (31-37) 33 g/dL (31-37) White Blood Count 9.4 x10^3/uL (4.0-11.0) Red Blood Count 5.29 x10^6/uL (3.50-5.40) Mean Corpuscular Volume 89 fL (79-100) Mean Corpuscular Hemoglobin 29 pg (25-35) Red Cell Distribution Width 17.3 % (11.5-14.5) Platelet Count 161 x10^3/uL (140-400) Test 03/25/17 05:05 03/25/17 08:00 White Blood Count 28.5 x10^3/uL (4.0-11.0) 26.5 x10^3/uL (4.0-11.0) Red Blood Count 5.16 x10^6/uL (3.50-5.40) 5.12 x10^6/uL (3.50-5.40) Hemoglobin 14.9 g/dL (12.0-15.5) 14.6 g/dL (12.0-15.5) Hematocrit 45.6 % (36.0-47.0) 45.2 % (36.0-47.0) Mean Corpuscular Volume 88 fL (79-100) 88 fL (79-100) Mean Corpuscular Hemoglobin 29 pg (25-35) 28 pg (25-35) Mean Corpuscular Hemoglobin Concent 33 g/dL (31-37) 32 g/dL (31-37) Red Cell Distribution Width 17.2 % (11.5-14.5) 17.2 % (11.5-14.5) Platelet Count 137 x10^3/uL (140-400) 111 x10^3/uL (140-400) Neutrophils (%) (Auto) 97 % (31-73) Lymphocytes (%) (Auto) 1 % (24-48) Monocytes (%) (Auto) 2 % (0-9) Eosinophils (%) (Auto) 0 % (0-3) Basophils (%) (Auto) 0 % (0-3) Neutrophils # (Auto) 27.5 x10^3uL (1.8-7.7) Lymphocytes # (Auto) 0.4 x10^3/uL (1.0-4.8) Monocytes # (Auto) 0.6 x10^3/uL (0.0-1.1) Eosinophils # (Auto) 0.0 x10^3/uL (0.0-0.7) Basophils # (Auto) 0.0 x10^3/uL (0.0-0.2) Sodium Level 137 mmol/L (136-145) Potassium Level 4.9 mmol/L (3.5-5.1) Chloride Level 104 mmol/L (98-107) Carbon Dioxide Level 15 mmol/L (21-32) Anion Gap 18 (6-14) Blood Urea Nitrogen 31 mg/dL (7-20) Creatinine 1.1 mg/dL (0.6-1.0) Estimated GFR (Cockcroft-Gault) 49.0 Glucose Level 288 mg/dL (70-99) Calcium Level 8.2 mg/dL (8.5-10.1) Prothrombin Time 14.3 SEC (11.7-14.0) Prothromb Time International Ratio 1.2 (0.8-1.1) APPLMERLENE MD Mar 25, 2017 11:02
[2017-03-25 11:06] LABS: PLT ESTIMATE DECREASED (ADEQUATE)
[2017-03-25 11:07] LABS: ANISOCYTOSIS PRESENT
[2017-03-25] MEDS: MEROPENEM IV Push 500 MG VIAL. IVP SCH ×3 (11:16→23:50)
[2017-03-25] MEDS: PANTOPRAZOLE IV PUSH 40 MG VIAL. IVP SCH (11:17)
[2017-03-25] MEDS: FLUCONAZOLE 200MG/100ML PREMIX 100 ML IV SCH (12:32)
[2017-03-25 16:39] LABS: CREATININE 1.2 mg/dL (0.6-1.0); GFR 44.3; POTASSIUM 5.3 mmol/L (3.5-5.1)
[2017-03-25] MEDS: IV DEXTROSE 5%-LACT RINGERS 1,000 ML IV SCH (17:15)
[2017-03-25] MEDS: IV NORMAL SALINE 1000ML BAG 1,000 ML IV SCH (20:43)
[2017-03-25] MEDS: FAMOTIDINE 20 MG TABLET. PO SCH ×2 (20:50→21:00)
[2017-03-25] MEDS: ENOXAPARIN 40 MG/0.4 ML SYRINGE. SQ SCH (20:51)
[2017-03-25] MEDS: FAMOTIDINE 20 MG/2 ML VIAL IVP SCH (21:26)
[2017-03-26] VITALS (26 sets, daily range): BP systolic 69–118; BP diastolic 36–80
[2017-03-26] MEDS: IV DEXTROSE 5%-LACT RINGERS 1,000 ML IV SCH ×4 (01:15→23:06)
[2017-03-26] MEDS: MEROPENEM IV Push 500 MG VIAL. IVP SCH ×3 (06:07→22:12)
[2017-03-26 06:30] LABS: BASO % 0 % (0-3); EOS % 0 % (0-3); HEMATOCRIT 39.1 % (36.0-47.0); HEMOGLOBIN 12.8 g/dL (12.0-15.5); LYMPH % 5 % (24-48); MEAN CORPUSCULAR HEMOGLOBIN 29 pg (25-35); MEAN CORPUSCULAR HGB CONC 33 g/dL (31-37); MEAN CORPUSCULAR VOLUME 87 fL (79-100); MONO % 3 % (0-9); NEUT % 92 % (31-73); PLATELET COUNT 71 x10^3/uL (140-400); RED BLOOD COUNT 4.48 x10^6/uL (3.50-5.40)
[2017-03-26 06:43] LABS: ALBUMIN 1.9 g/dL (3.4-5.0); ALBUMIN/GLOBULIN RATIO 0.6 (1.0-1.7); CALCIUM 8.6 mg/dL (8.5-10.1); CREATININE 0.9 mg/dL (0.6-1.0); GFR 61.7; POTASSIUM 4.5 mmol/L (3.5-5.1); TOTAL BILIRUBIN 0.6 mg/dL (0.2-1.0); TOTAL PROTEIN 5.2 g/dL (6.4-8.2)
[2017-03-26] MEDS ORDERED: PROCHLORPERAZINE 10 MG/2 ML VIAL. IV PRN (07:00)
[2017-03-26] MEDS ORDERED: HYDROmorphone 2 MG/ML VIAL IV PRN (07:00)
[2017-03-26] MEDS ORDERED: MORPHINE SULFATE 2 MG/ML DISP.SYRIN. IV PRN (07:00)
[2017-03-26] MEDS ORDERED: IV RINGERS,LACTATED 1000ML 1,000 ML IV SCH (07:00)
[2017-03-26] MEDS ORDERED: LIDOCAINE 1% PF 2 ML VIAL. ID PRN (07:00)
[2017-03-26] MEDS ORDERED: LORazepam 0.5 MG TABLET PO PRN (07:00)
[2017-03-26] MEDS: GLIMEPIRIDE 2 MG TABLET. PO SCH (08:00)
--- NOTE | 2017-03-26 08:25 | PDOC ---
Infectious Disease Note Subjective Subjective s/p surgery yesterday Now in ICU + belching and vomited earlier, feeling better now Pain controlled at the moment some what sob ROS ROS no n/v/d/pain/fever Vital Sign Vital Signs Vital Signs Date Time Temp Pulse Resp B/P (MAP) Pulse Ox O2 Delivery O2 Flow Rate FiO2 03/26/17 06:00 118 44 89/36 (53) 94 Room Air 03/26/17 04:00 98.0 98.0 Physical Exam PHYSICAL EXAM GENERAL: Alert mild sob HEENT: PERRL, OC/OP NECK: Supple, no JVD, no LN LUNGS: Clear HEART: S1S2, no gallop, no murmur ABD: Soft, NT, no organomegaly, no rebound,, dressing not opened EXT: No edema, no cyanosis HEALTH COMMISSIONER: Alert, oriented x 3, no focal neurologic deficit SKIN: No rash IV: ok Labs Lab Laboratory Tests Test 03/25/17 16:00 03/26/17 06:00 Sodium Level 135 mmol/L (136-145) 135 mmol/L (136-145) Potassium Level 5.3 mmol/L (3.5-5.1) 4.5 mmol/L (3.5-5.1) Chloride Level 104 mmol/L (98-107) 105 mmol/L (98-107) Carbon Dioxide Level 20 mmol/L (21-32) 21 mmol/L (21-32) Anion Gap 11 (6-14) 9 (6-14) Blood Urea Nitrogen 37 mg/dL (7-20) 28 mg/dL (7-20) Creatinine 1.2 mg/dL (0.6-1.0) 0.9 mg/dL (0.6-1.0) Estimated GFR (Cockcroft-Gault) 44.3 61.7 Glucose Level 262 mg/dL (70-99) 178 mg/dL (70-99) Calcium Level 8.0 mg/dL (8.5-10.1) 8.6 mg/dL (8.5-10.1) White Blood Count 18.0 x10^3/uL (4.0-11.0) Red Blood Count 4.48 x10^6/uL (3.50-5.40) Hemoglobin 12.8 g/dL (12.0-15.5) Hematocrit 39.1 % (36.0-47.0) Mean Corpuscular Volume 87 fL (79-100) Mean Corpuscular Hemoglobin 29 pg (25-35) Mean Corpuscular Hemoglobin Concent 33 g/dL (31-37) Red Cell Distribution Width 18.0 % (11.5-14.5) Platelet Count 71 x10^3/uL (140-400) Neutrophils (%) (Auto) 92 % (31-73) Lymphocytes (%) (Auto) 5 % (24-48) Monocytes (%) (Auto) 3 % (0-9) Eosinophils (%) (Auto) 0 % (0-3) Basophils (%) (Auto) 0 % (0-3) Neutrophils # (Auto) 16.5 x10^3uL (1.8-7.7) Lymphocytes # (Auto) 1.0 x10^3/uL (1.0-4.8) Monocytes # (Auto) 0.5 x10^3/uL (0.0-1.1) Eosinophils # (Auto) 0.0 x10^3/uL (0.0-0.7) Basophils # (Auto) 0.0 x10^3/uL (0.0-0.2) BUN/Creatinine Ratio 31 (6-20) Total Bilirubin 0.6 mg/dL (0.2-1.0) Aspartate Amino Transf (AST/SGOT) 29 U/L (15-37) Alanine Aminotransferase (ALT/SGPT) 15 U/L (14-59) Alkaline Phosphatase 67 U/L (46-116) Total Protein 5.2 g/dL (6.4-8.2) Albumin 1.9 g/dL (3.4-5.0) Albumin/Globulin Ratio 0.6 (1.0-1.7) Objective Assessment s/p lap converted to open exploration, JAIRO, removal of infected mesh, subtotal colectomy, SBR and hernia repair, 03/24 Leukocytosis, likely reactive, (Dexamethasone pre-op) EC fistula Fever - better Abdominal abscess, measuring 6.4 x 4.9 cm. s/p drain 03/12. Klebsiella ( R to Zosyn, S Cipro/Levo), VRE (R PCN) and PSAE ( R to ticarcillin only otherwise sensitive, S Cipro/Levo) and C tropicalis h/o Strep anginosis and Bacteroides Ventral hernia DM HTN PCN allergy/amox also - hives and swelling Plan Plan of Care Cont Zyvox (03/14)/meropenem/Fluconazole Contact isolation f/u am labs D/w son cxr today, may need SANDRA Santiago MD Mar 26, 2017 08:25
[2017-03-26] MEDS: FERROUS SULFATE 325 MG TABLET. PO SCH (09:00)
[2017-03-26] MEDS ORDERED: FUROSEMIDE 40 MG/4 ML VIAL. IVP ONE (09:00)
[2017-03-26] MEDS: ASPIRIN CHEWABLE 81 MG TABLET. PO SCH (09:00)
[2017-03-26] MEDS: DICLOFENAC SODIUM 25 MG TABLET.DR PO SCH (09:00)
[2017-03-26] MEDS: FUROSEMIDE 40 MG TABLET. PO SCH (09:00)
[2017-03-26] MEDS: METOPROLOL SUCC 24HR ER 25 MG TAB.ER.24H. PO SCH (09:00)
--- NOTE | 2017-03-26 09:09 | PDOC ---
SUBJECTIVE Subjective More short of breath today. Has been off of Lasix for 3-4 days and getting IV fluids since she is NPO with NG tube in place. Also gained 10 lbs since yesterday per bed weight. Will cut IV fluids with hope of being able to dc NG today and resume PO fluids. Give Lasix 40mg IV x 1 today, then 20mg IV daily until able to resume home 40mg PO dose. Pain well controlled. Wanting to drink. CXR ordered OBJECTIVE Objective Reviewed Vital Signs Vital Signs Date Time Temp Pulse Resp B/P (MAP) Pulse Ox O2 Delivery O2 Flow Rate FiO2 03/26/17 07:00 98.3 118 30 97/53 (68) 94 Room Air 98.3 03/26/17 06:00 118 44 89/36 (53) 94 Room Air 03/26/17 05:00 113 29 107/49 (68) 92 Room Air 03/26/17 04:00 Room Air 03/26/17 04:00 98.0 110 30 100/52 (68) 95 Room Air 98.0 03/26/17 03:00 108 50 106/57 (73) 94 Room Air 03/26/17 02:00 110 34 98/48 (65) 93 Room Air 03/26/17 01:00 108 26 97/80 (86) 93 Room Air 03/26/17 00:00 Room Air 03/26/17 00:00 97.2 109 26 96/74 (81) 94 Room Air 97.2 03/25/17 23:00 114 31 118/51 (73) 93 Room Air 03/25/17 22:00 112 30 106/61 (76) 95 Room Air 03/25/17 21:00 114 29 91/60 (70) 93 Room Air 03/25/17 20:00 Room Air 03/25/17 20:00 97.8 111 28 118/68 (85) 92 Room Air 97.8 03/25/17 19:00 114 24 113/62 (79) 92 Room Air 03/25/17 17:00 107 29 114/57 (76) 95 Room Air 03/25/17 16:00 Room Air 03/25/17 16:00 97.9 108 30 123/63 (83) 94 Room Air 97.9 03/25/17 15:00 108 29 117/56 (76) 95 Room Air 03/25/17 14:00 108 31 127/63 (84) 94 Room Air 03/25/17 13:00 108 29 125/58 (80) 94 Room Air 03/25/17 12:00 Room Air 03/25/17 12:00 97.8 112 29 135/61 (85) 94 Room Air 97.8 03/25/17 11:00 112 29 131/64 (86) 94 Room Air 03/25/17 10:00 114 30 128/66 (86) 95 Room Air 03/25/17 09:00 112 32 135/68 (90) 95 Room Air I & O Intake and Output 03/26/17 07:00 Intake Total 2882 ml Output Total 775 ml Balance 2107 ml IV Total 2882 ml Output Urine Total 75 ml Gastric Drainage Total 700 ml # Voids 547 PHYSICAL EXAM Physical Exam NAD, alert, oriented RRR Crackles in bilateral bases, increased work of breathing and tachypnea Abd binder in place No LE edema Cooperative ASSESSMENT/PLAN Assessment/Plan EC fistula s/p lap converted to open exploration, JAIRO, removal of infected mesh , subtotal colectomy, SBR and hernia repair, 03/24 Leukocytosis, likely reactive, improving Abdominal abscess - measuring 6.4 x 4.9 cm. s/p drain 03/12. Klebsiella ( R to Zosyn, S Cipro/Levo), VRE (R PCN) and PSAE ( R to ticarcillin only otherwise sensitive, S Cipro/Levo) and C tropicalis, h/o Strep anginosis and Bacteroides Ventral hernia DM HTN - currently hypotensive SOB - likely fluid overloaded Cut back IVFs, Lasix 40mg IV x 1; resume PO lasix daily when able CXR this AM Possible dc NG and start clears today; dc IVFs when taking PO Transfer to floor Cont Zyvox/meropenem/Fluconazole per ID Pain well controlled Problems: COMMENT Lab Laboratory Tests Test 03/25/17 16:00 03/26/17 06:00 Sodium Level 135 mmol/L (136-145) 135 mmol/L (136-145) Potassium Level 5.3 mmol/L (3.5-5.1) 4.5 mmol/L (3.5-5.1) Chloride Level 104 mmol/L (98-107) 105 mmol/L (98-107) Carbon Dioxide Level 20 mmol/L (21-32) 21 mmol/L (21-32) Anion Gap 11 (6-14) 9 (6-14) Blood Urea Nitrogen 37 mg/dL (7-20) 28 mg/dL (7-20) Creatinine 1.2 mg/dL (0.6-1.0) 0.9 mg/dL (0.6-1.0) Estimated GFR (Cockcroft-Gault) 44.3 61.7 Glucose Level 262 mg/dL (70-99) 178 mg/dL (70-99) Calcium Level 8.0 mg/dL (8.5-10.1) 8.6 mg/dL (8.5-10.1) White Blood Count 18.0 x10^3/uL (4.0-11.0) Red Blood Count 4.48 x10^6/uL (3.50-5.40) Hemoglobin 12.8 g/dL (12.0-15.5) Hematocrit 39.1 % (36.0-47.0) Mean Corpuscular Volume 87 fL (79-100) Mean Corpuscular Hemoglobin 29 pg (25-35) Mean Corpuscular Hemoglobin Concent 33 g/dL (31-37) Red Cell Distribution Width 18.0 % (11.5-14.5) Platelet Count 71 x10^3/uL (140-400) Neutrophils (%) (Auto) 92 % (31-73) Lymphocytes (%) (Auto) 5 % (24-48) Monocytes (%) (Auto) 3 % (0-9) Eosinophils (%) (Auto) 0 % (0-3) Basophils (%) (Auto) 0 % (0-3) Neutrophils # (Auto) 16.5 x10^3uL (1.8-7.7) Lymphocytes # (Auto) 1.0 x10^3/uL (1.0-4.8) Monocytes # (Auto) 0.5 x10^3/uL (0.0-1.1) Eosinophils # (Auto) 0.0 x10^3/uL (0.0-0.7) Basophils # (Auto) 0.0 x10^3/uL (0.0-0.2) BUN/Creatinine Ratio 31 (6-20) Total Bilirubin 0.6 mg/dL (0.2-1.0) Aspartate Amino Transf (AST/SGOT) 29 U/L (15-37) Alanine Aminotransferase (ALT/SGPT) 15 U/L (14-59) Alkaline Phosphatase 67 U/L (46-116) Total Protein 5.2 g/dL (6.4-8.2) Albumin 1.9 g/dL (3.4-5.0) Albumin/Globulin Ratio 0.6 (1.0-1.7) STEPHON BLAND MD Mar 26, 2017 09:09
[2017-03-26] MEDS: PANTOPRAZOLE IV PUSH 40 MG VIAL. IVP SCH (09:28)
--- NOTE | 2017-03-26 10:25 | PDOC ---
SURGICAL PROGRESS NOTE Subjective increased SOA today ng bothersome, worried it is contributing to SOA Vital Signs Vital Signs Date Time Temp Pulse Resp B/P (MAP) Pulse Ox O2 Delivery O2 Flow Rate FiO2 03/26/17 09:00 118 30 102/47 (65) 94 Room Air 03/26/17 07:00 98.3 98.3 I&O Intake and Output 03/26/17 07:00 Intake Total 2882 ml Output Total 775 ml Balance 2107 ml IV Total 2882 ml Output Urine Total 75 ml Gastric Drainage Total 700 ml # Voids 547 PATIENT HAS A HOPPER: Yes General: Alert, Cooperative, No acute distress HEENT: Other (bilious, less drainage today) Abdomen: Soft, Other (ND, incision c/d/i, no erythema, stoma--dusky, bloody drainage) Labs Laboratory Tests Test 03/24/17 11:47 03/24/17 17:45 03/24/17 20:19 03/24/17 20:42 Glucose (Fingerstick) 116 mg/dL (70-99) 195 mg/dL (70-99) Hemoglobin 4.3 g/dL (12.0-15.5) 15.2 g/dL (12.0-15.5) Hematocrit 13.0 % (36.0-47.0) 46.9 % (36.0-47.0) Mean Corpuscular Hemoglobin Concent 33 g/dL (31-37) 33 g/dL (31-37) White Blood Count 9.4 x10^3/uL (4.0-11.0) Red Blood Count 5.29 x10^6/uL (3.50-5.40) Mean Corpuscular Volume 89 fL (79-100) Mean Corpuscular Hemoglobin 29 pg (25-35) Red Cell Distribution Width 17.3 % (11.5-14.5) Platelet Count 161 x10^3/uL (140-400) Test 03/25/17 00:00 03/25/17 05:05 03/25/17 08:00 03/25/17 16:00 Nasal Screen MRSA (PCR) Negative (Negative) White Blood Count 28.5 x10^3/uL (4.0-11.0) 26.5 x10^3/uL (4.0-11.0) Red Blood Count 5.16 x10^6/uL (3.50-5.40) 5.12 x10^6/uL (3.50-5.40) Hemoglobin 14.9 g/dL (12.0-15.5) 14.6 g/dL (12.0-15.5) Hematocrit 45.6 % (36.0-47.0) 45.2 % (36.0-47.0) Mean Corpuscular Volume 88 fL (79-100) 88 fL (79-100) Mean Corpuscular Hemoglobin 29 pg (25-35) 28 pg (25-35) Mean Corpuscular Hemoglobin Concent 33 g/dL (31-37) 32 g/dL (31-37) Red Cell Distribution Width 17.2 % (11.5-14.5) 17.2 % (11.5-14.5) Platelet Count 137 x10^3/uL (140-400) 111 x10^3/uL (140-400) Neutrophils (%) (Auto) 97 % (31-73) Lymphocytes (%) (Auto) 1 % (24-48) Monocytes (%) (Auto) 2 % (0-9) Eosinophils (%) (Auto) 0 % (0-3) Basophils (%) (Auto) 0 % (0-3) Neutrophils # (Auto) 27.5 x10^3uL (1.8-7.7) Lymphocytes # (Auto) 0.4 x10^3/uL (1.0-4.8) Monocytes # (Auto) 0.6 x10^3/uL (0.0-1.1) Eosinophils # (Auto) 0.0 x10^3/uL (0.0-0.7) Basophils # (Auto) 0.0 x10^3/uL (0.0-0.2) Segmented Neutrophils % 52 % (35-66) Band Neutrophils % 45 % (0-9) Lymphocytes % 1 % (24-48) Monocytes % 2 % (0-10) Platelet Estimate Decreased (ADEQUATE) Anisocytosis Present Sodium Level 137 mmol/L (136-145) 135 mmol/L (136-145) Potassium Level 4.9 mmol/L (3.5-5.1) 5.3 mmol/L (3.5-5.1) Chloride Level 104 mmol/L (98-107) 104 mmol/L (98-107) Carbon Dioxide Level 15 mmol/L (21-32) 20 mmol/L (21-32) Anion Gap 18 (6-14) 11 (6-14) Blood Urea Nitrogen 31 mg/dL (7-20) 37 mg/dL (7-20) Creatinine 1.1 mg/dL (0.6-1.0) 1.2 mg/dL (0.6-1.0) Estimated GFR (Cockcroft-Gault) 49.0 44.3 Glucose Level 288 mg/dL (70-99) 262 mg/dL (70-99) Calcium Level 8.2 mg/dL (8.5-10.1) 8.0 mg/dL (8.5-10.1) Prothrombin Time 14.3 SEC (11.7-14.0) Prothromb Time International Ratio 1.2 (0.8-1.1) Test 03/26/17 06:00 White Blood Count 18.0 x10^3/uL (4.0-11.0) Red Blood Count 4.48 x10^6/uL (3.50-5.40) Hemoglobin 12.8 g/dL (12.0-15.5) Hematocrit 39.1 % (36.0-47.0) Mean Corpuscular Volume 87 fL (79-100) Mean Corpuscular Hemoglobin 29 pg (25-35) Mean Corpuscular Hemoglobin Concent 33 g/dL (31-37) Red Cell Distribution Width 18.0 % (11.5-14.5) Platelet Count 71 x10^3/uL (140-400) Neutrophils (%) (Auto) 92 % (31-73) Lymphocytes (%) (Auto) 5 % (24-48) Monocytes (%) (Auto) 3 % (0-9) Eosinophils (%) (Auto) 0 % (0-3) Basophils (%) (Auto) 0 % (0-3) Neutrophils # (Auto) 16.5 x10^3uL (1.8-7.7) Lymphocytes # (Auto) 1.0 x10^3/uL (1.0-4.8) Monocytes # (Auto) 0.5 x10^3/uL (0.0-1.1) Eosinophils # (Auto) 0.0 x10^3/uL (0.0-0.7) Basophils # (Auto) 0.0 x10^3/uL (0.0-0.2) Sodium Level 135 mmol/L (136-145) Potassium Level 4.5 mmol/L (3.5-5.1) Chloride Level 105 mmol/L (98-107) Carbon Dioxide Level 21 mmol/L (21-32) Anion Gap 9 (6-14) Blood Urea Nitrogen 28 mg/dL (7-20) Creatinine 0.9 mg/dL (0.6-1.0) Estimated GFR (Cockcroft-Gault) 61.7 BUN/Creatinine Ratio 31 (6-20) Glucose Level 178 mg/dL (70-99) Calcium Level 8.6 mg/dL (8.5-10.1) Total Bilirubin 0.6 mg/dL (0.2-1.0) Aspartate Amino Transf (AST/SGOT) 29 U/L (15-37) Alanine Aminotransferase (ALT/SGPT) 15 U/L (14-59) Alkaline Phosphatase 67 U/L (46-116) Total Protein 5.2 g/dL (6.4-8.2) Albumin 1.9 g/dL (3.4-5.0) Albumin/Globulin Ratio 0.6 (1.0-1.7) Laboratory Tests Test 03/25/17 16:00 03/26/17 06:00 Sodium Level 135 mmol/L (136-145) 135 mmol/L (136-145) Potassium Level 5.3 mmol/L (3.5-5.1) 4.5 mmol/L (3.5-5.1) Chloride Level 104 mmol/L (98-107) 105 mmol/L (98-107) Carbon Dioxide Level 20 mmol/L (21-32) 21 mmol/L (21-32) Anion Gap 11 (6-14) 9 (6-14) Blood Urea Nitrogen 37 mg/dL (7-20) 28 mg/dL (7-20) Creatinine 1.2 mg/dL (0.6-1.0) 0.9 mg/dL (0.6-1.0) Estimated GFR (Cockcroft-Gault) 44.3 61.7 Glucose Level 262 mg/dL (70-99) 178 mg/dL (70-99) Calcium Level 8.0 mg/dL (8.5-10.1) 8.6 mg/dL (8.5-10.1) White Blood Count 18.0 x10^3/uL (4.0-11.0) Red Blood Count 4.48 x10^6/uL (3.50-5.40) Hemoglobin 12.8 g/dL (12.0-15.5) Hematocrit 39.1 % (36.0-47.0) Mean Corpuscular Volume 87 fL (79-100) Mean Corpuscular Hemoglobin 29 pg (25-35) Mean Corpuscular Hemoglobin Concent 33 g/dL (31-37) Red Cell Distribution Width 18.0 % (11.5-14.5) Platelet Count 71 x10^3/uL (140-400) Neutrophils (%) (Auto) 92 % (31-73) Lymphocytes (%) (Auto) 5 % (24-48) Monocytes (%) (Auto) 3 % (0-9) Eosinophils (%) (Auto) 0 % (0-3) Basophils (%) (Auto) 0 % (0-3) Neutrophils # (Auto) 16.5 x10^3uL (1.8-7.7) Lymphocytes # (Auto) 1.0 x10^3/uL (1.0-4.8) Monocytes # (Auto) 0.5 x10^3/uL (0.0-1.1) Eosinophils # (Auto) 0.0 x10^3/uL (0.0-0.7) Basophils # (Auto) 0.0 x10^3/uL (0.0-0.2) BUN/Creatinine Ratio 31 (6-20) Total Bilirubin 0.6 mg/dL (0.2-1.0) Aspartate Amino Transf (AST/SGOT) 29 U/L (15-37) Alanine Aminotransferase (ALT/SGPT) 15 U/L (14-59) Alkaline Phosphatase 67 U/L (46-116) Total Protein 5.2 g/dL (6.4-8.2) Albumin 1.9 g/dL (3.4-5.0) Albumin/Globulin Ratio 0.6 (1.0-1.7) Problem List Problems Medical Problems: (1) Abdominal abscess Status: Acute (2) Abdominal pain Status: Acute Assessment/Plan s/p xlap NG today watch stoma lasix ordered today Problems: DYLON OCHOA SISAL PICKER Mar 26, 2017 10:24
--- NOTE | 2017-03-26 11:18 | RAD ---
Indication: Shortness of breath. Time of exam 11:04 AM Correlation is made with prior study from 03/13/2017. The heart size is stable. There is some increasing parenchymal density in the left lung base since prior exam consistent with developing infiltrate or atelectasis. The right lung is clear. An NG tube has been placed and is located with the tip in the stomach. A right upper extremity PICC line has been placed and has the tip overlying the right atrium. Impression: Developing left basilar infiltrate or atelectasis.
[2017-03-26] MEDS: FLUCONAZOLE 200MG/100ML PREMIX 100 ML IV SCH (11:49)
[2017-03-26] MEDS ORDERED: DIGOXIN IV 500 MCG/2 ML AMPUL. IV ONE (15:15)
[2017-03-26 15:28] LABS: HEMATOCRIT 37.5 % (36.0-47.0); HEMOGLOBIN 12.4 g/dL (12.0-15.5); RED BLOOD COUNT 4.28 x10^6/uL (3.50-5.40); RED CELL DISTRIBUTION WIDTH 17.6 % (11.5-14.5); WHITE BLOOD COUNT 18.6 x10^3/uL (4.0-11.0)
--- NOTE | 2017-03-26 16:07 | EKG ---
[facility] [address] [place] [id number] Test Date: 2017-03-26 Test Time: 16:03:06 Pat Name: SAFIA MIRANDA Department: Room: [facility] Gender: F Raisin Separator Operator: AT : 1945 Requested By: MILENA MCMILLAN Order Number: [id number] Reading MD: Shoaib Nowak Measurements Intervals [place] Rate: 129 P: 13 NH: 148 QRS: 10 QRSD: 94 T: 64 QT: 292 QTc: 429 Interpretive Statements SINUS TACHYCARDIA VENTRICULAR PREMATURE COMPLEX(ES) ABNORMAL ECG Electronically Signed On 04-09-2017 13:47:25 REPLENISHMENT BUYER by Shoaib Nowak
[2017-03-26] MEDS ORDERED: CONTRAST GIVEN MC PRN (16:45)
[2017-03-26] MEDS ORDERED: IOHEXOL 300 MG/ML 100ML VIAL. IV ONE (16:45)
[2017-03-26 17:31] LABS: HCO3 ABG 20 mmol/L (21-28); PCO2 ABG 33 mmHg (35-46); PH ABG 7.41 (7.35-7.45); PO2 ABG 63 mmHg (65-108); SAT O2 ABG 92 % (92-99)
[2017-03-26 17:33] LABS: FIO2 ABG 24
[2017-03-26] MEDS ORDERED: NOREPINEPHRIN PREMIX 250 ML IV ONE (17:42)
[2017-03-26] MEDS ORDERED: NOREPINEPHRIN PREMIX 250 ML IV PRN (18:00)
--- NOTE | 2017-03-26 18:20 | RAD ---
CT scan of the chest, abdomen and pelvis with contrast 03/26/2017 CLINICAL HISTORY: Shortness of breath and abdominal pain. Recent abdominal surgery. TECHNIQUE: After the intravenous administration of 75 cc of Omnipaque 300, contiguous, 5 mm axial sections were obtained through the chest, abdomen and pelvis. One or more of the following individualized dose reduction techniques were utilized for this study: 1. Automated exposure control. 2. Adjustment of the mA and/or kV according to patient size. 3. Use of iterative reconstruction technique. FINDINGS: Comparison study is dated 03/09/2017. There is mild to moderate cardiomegaly. Atherosclerotic calcification of the thoracic aorta is seen. The thoracic aorta is tortuous but tapers normally. Extensive coronary artery calcifications are noted. There are small bilateral pleural effusions. Dependent bilateral lower lobe atelectasis is seen. No pneumothorax is noted. The liver, spleen, pancreas, and kidneys are within normal limits. Fullness of both adrenal glands, left greater than right is again seen. Atherosclerotic calcification abdominal aorta is seen. The abdominal aorta tapers normally. Surgical clips are seen within the gallbladder fossa consistent with a cholecystectomy. An NG tube extends into the body the stomach. Small amount of free fluid surrounds the liver. Small collections of free air are noted which are presumably postsurgical. Postsurgical changes are seen involving the anterior abdominal wall. A drain is seen within the anterior soft tissues of the anterior abdominal wall. An ostomy is seen within the left lower quadrant of the abdomen. There is no evidence of bowel obstruction. No abnormal fluid collection is seen suggest evidence of an abscess. Images through the pelvis demonstrate a Hinton catheter within the urinary bladder. Moderate amount stool is seen within the rectum and sigmoid colon. Small amount of free fluid is seen within the pelvis. The osseous structures are unchanged. Impression: 1. Mild to moderate cardiomegaly. Small bilateral pleural effusions. Bilateral lower lobe atelectasis. 2. Extensive postsurgical changes are seen involving the abdomen. Small amount of free fluid and small extraluminal collections of free air are seen which are presumably postsurgical. No abnormal fluid collection is seen to suggest evidence of an abscess. There is no evidence of obstruction. Electronically signed by: Sudhir Kaba MD (03/26/2017 6:16 PM) [facility]
--- NOTE | 2017-03-26 19:25 | PDOC ---
PULMONARY PROGRESS NOTES Vitals Vital Signs Date Time Temp Pulse Resp B/P (MAP) Pulse Ox O2 Delivery O2 Flow Rate FiO2 03/26/17 18:00 122 27 94/41 (58) 99 BiPAP/CPAP 03/26/17 17:15 1.0 03/26/17 12:03 98.3 98.3 General: Alert, Oriented X4, No acute distress Lungs: Clear Cardiovascular: S1, S2 Abdomen: Soft, Non-tender Extremities: No Edema Labs Laboratory Tests Test 03/24/17 20:19 03/24/17 20:42 03/25/17 00:00 03/25/17 05:05 Glucose (Fingerstick) 195 mg/dL (70-99) White Blood Count 9.4 x10^3/uL (4.0-11.0) 28.5 x10^3/uL (4.0-11.0) Red Blood Count 5.29 x10^6/uL (3.50-5.40) 5.16 x10^6/uL (3.50-5.40) Hemoglobin 15.2 g/dL (12.0-15.5) 14.9 g/dL (12.0-15.5) Hematocrit 46.9 % (36.0-47.0) 45.6 % (36.0-47.0) Mean Corpuscular Volume 89 fL (79-100) 88 fL (79-100) Mean Corpuscular Hemoglobin 29 pg (25-35) 29 pg (25-35) Mean Corpuscular Hemoglobin Concent 33 g/dL (31-37) 33 g/dL (31-37) Red Cell Distribution Width 17.3 % (11.5-14.5) 17.2 % (11.5-14.5) Platelet Count 161 x10^3/uL (140-400) 137 x10^3/uL (140-400) Nasal Screen MRSA (PCR) Negative (Negative) Neutrophils (%) (Auto) 97 % (31-73) Lymphocytes (%) (Auto) 1 % (24-48) Monocytes (%) (Auto) 2 % (0-9) Eosinophils (%) (Auto) 0 % (0-3) Basophils (%) (Auto) 0 % (0-3) Neutrophils # (Auto) 27.5 x10^3uL (1.8-7.7) Lymphocytes # (Auto) 0.4 x10^3/uL (1.0-4.8) Monocytes # (Auto) 0.6 x10^3/uL (0.0-1.1) Eosinophils # (Auto) 0.0 x10^3/uL (0.0-0.7) Basophils # (Auto) 0.0 x10^3/uL (0.0-0.2) Segmented Neutrophils % 52 % (35-66) Band Neutrophils % 45 % (0-9) Lymphocytes % 1 % (24-48) Monocytes % 2 % (0-10) Platelet Estimate Decreased (ADEQUATE) Anisocytosis Present Sodium Level 137 mmol/L (136-145) Potassium Level 4.9 mmol/L (3.5-5.1) Chloride Level 104 mmol/L (98-107) Carbon Dioxide Level 15 mmol/L (21-32) Anion Gap 18 (6-14) Blood Urea Nitrogen 31 mg/dL (7-20) Creatinine 1.1 mg/dL (0.6-1.0) Estimated GFR (Cockcroft-Gault) 49.0 Glucose Level 288 mg/dL (70-99) Calcium Level 8.2 mg/dL (8.5-10.1) Test 03/25/17 08:00 03/25/17 16:00 03/26/17 06:00 03/26/17 15:20 White Blood Count 26.5 x10^3/uL (4.0-11.0) 18.0 x10^3/uL (4.0-11.0) 18.6 x10^3/uL (4.0-11.0) Red Blood Count 5.12 x10^6/uL (3.50-5.40) 4.48 x10^6/uL (3.50-5.40) 4.28 x10^6/uL (3.50-5.40) Hemoglobin 14.6 g/dL (12.0-15.5) 12.8 g/dL (12.0-15.5) 12.4 g/dL (12.0-15.5) Hematocrit 45.2 % (36.0-47.0) 39.1 % (36.0-47.0) 37.5 % (36.0-47.0) Mean Corpuscular Volume 88 fL (79-100) 87 fL (79-100) 88 fL (79-100) Mean Corpuscular Hemoglobin 28 pg (25-35) 29 pg (25-35) 29 pg (25-35) Mean Corpuscular Hemoglobin Concent 32 g/dL (31-37) 33 g/dL (31-37) 33 g/dL (31-37) Red Cell Distribution Width 17.2 % (11.5-14.5) 18.0 % (11.5-14.5) 17.6 % (11.5-14.5) Platelet Count 111 x10^3/uL (140-400) 71 x10^3/uL (140-400) 52 x10^3/uL (140-400) Prothrombin Time 14.3 SEC (11.7-14.0) Prothromb Time International Ratio 1.2 (0.8-1.1) Sodium Level 135 mmol/L (136-145) 135 mmol/L (136-145) Potassium Level 5.3 mmol/L (3.5-5.1) 4.5 mmol/L (3.5-5.1) Chloride Level 104 mmol/L (98-107) 105 mmol/L (98-107) Carbon Dioxide Level 20 mmol/L (21-32) 21 mmol/L (21-32) Anion Gap 11 (6-14) 9 (6-14) Blood Urea Nitrogen 37 mg/dL (7-20) 28 mg/dL (7-20) Creatinine 1.2 mg/dL (0.6-1.0) 0.9 mg/dL (0.6-1.0) Estimated GFR (Cockcroft-Gault) 44.3 61.7 Glucose Level 262 mg/dL (70-99) 178 mg/dL (70-99) Calcium Level 8.0 mg/dL (8.5-10.1) 8.6 mg/dL (8.5-10.1) Neutrophils (%) (Auto) 92 % (31-73) Lymphocytes (%) (Auto) 5 % (24-48) Monocytes (%) (Auto) 3 % (0-9) Eosinophils (%) (Auto) 0 % (0-3) Basophils (%) (Auto) 0 % (0-3) Neutrophils # (Auto) 16.5 x10^3uL (1.8-7.7) Lymphocytes # (Auto) 1.0 x10^3/uL (1.0-4.8) Monocytes # (Auto) 0.5 x10^3/uL (0.0-1.1) Eosinophils # (Auto) 0.0 x10^3/uL (0.0-0.7) Basophils # (Auto) 0.0 x10^3/uL (0.0-0.2) BUN/Creatinine Ratio 31 (6-20) Total Bilirubin 0.6 mg/dL (0.2-1.0) Aspartate Amino Transf (AST/SGOT) 29 U/L (15-37) Alanine Aminotransferase (ALT/SGPT) 15 U/L (14-59) Alkaline Phosphatase 67 U/L (46-116) Total Protein 5.2 g/dL (6.4-8.2) Albumin 1.9 g/dL (3.4-5.0) Albumin/Globulin Ratio 0.6 (1.0-1.7) Test 03/26/17 16:05 03/26/17 17:15 Lactic Acid Level 3.3 mmol/L (0.4-2.0) O2 Saturation 92 % (92-99) Arterial Blood pH 7.41 (7.35-7.45) Arterial Blood pCO2 at Patient Temp 33 mmHg (35-46) Arterial Blood pO2 at Patient Temp 63 mmHg (65-108) Arterial Blood HCO3 20 mmol/L (21-28) Arterial Blood Base Excess -4 mmol/L (-3-3) FiO2 24 Laboratory Tests Test 03/26/17 06:00 03/26/17 15:20 03/26/17 16:05 03/26/17 17:15 White Blood Count 18.0 x10^3/uL (4.0-11.0) 18.6 x10^3/uL (4.0-11.0) Red Blood Count 4.48 x10^6/uL (3.50-5.40) 4.28 x10^6/uL (3.50-5.40) Hemoglobin 12.8 g/dL (12.0-15.5) 12.4 g/dL (12.0-15.5) Hematocrit 39.1 % (36.0-47.0) 37.5 % (36.0-47.0) Mean Corpuscular Volume 87 fL (79-100) 88 fL (79-100) Mean Corpuscular Hemoglobin 29 pg (25-35) 29 pg (25-35) Mean Corpuscular Hemoglobin Concent 33 g/dL (31-37) 33 g/dL (31-37) Red Cell Distribution Width 18.0 % (11.5-14.5) 17.6 % (11.5-14.5) Platelet Count 71 x10^3/uL (140-400) 52 x10^3/uL (140-400) Neutrophils (%) (Auto) 92 % (31-73) Lymphocytes (%) (Auto) 5 % (24-48) Monocytes (%) (Auto) 3 % (0-9) Eosinophils (%) (Auto) 0 % (0-3) Basophils (%) (Auto) 0 % (0-3) Neutrophils # (Auto) 16.5 x10^3uL (1.8-7.7) Lymphocytes # (Auto) 1.0 x10^3/uL (1.0-4.8) Monocytes # (Auto) 0.5 x10^3/uL (0.0-1.1) Eosinophils # (Auto) 0.0 x10^3/uL (0.0-0.7) Basophils # (Auto) 0.0 x10^3/uL (0.0-0.2) Sodium Level 135 mmol/L (136-145) Potassium Level 4.5 mmol/L (3.5-5.1) Chloride Level 105 mmol/L (98-107) Carbon Dioxide Level 21 mmol/L (21-32) Anion Gap 9 (6-14) Blood Urea Nitrogen 28 mg/dL (7-20) Creatinine 0.9 mg/dL (0.6-1.0) Estimated GFR (Cockcroft-Gault) 61.7 BUN/Creatinine Ratio 31 (6-20) Glucose Level 178 mg/dL (70-99) Calcium Level 8.6 mg/dL (8.5-10.1) Total Bilirubin 0.6 mg/dL (0.2-1.0) Aspartate Amino Transf (AST/SGOT) 29 U/L (15-37) Alanine Aminotransferase (ALT/SGPT) 15 U/L (14-59) Alkaline Phosphatase 67 U/L (46-116) Total Protein 5.2 g/dL (6.4-8.2) Albumin 1.9 g/dL (3.4-5.0) Albumin/Globulin Ratio 0.6 (1.0-1.7) Lactic Acid Level 3.3 mmol/L (0.4-2.0) O2 Saturation 92 % (92-99) Arterial Blood pH 7.41 (7.35-7.45) Arterial Blood pCO2 at Patient Temp 33 mmHg (35-46) Arterial Blood pO2 at Patient Temp 63 mmHg (65-108) Arterial Blood HCO3 20 mmol/L (21-28) Arterial Blood Base Excess -4 mmol/L (-3-3) FiO2 24 Medications Active Scripts Medications Dose Route/Sig Max Daily Dose Days Date Category Flagyl (Metronidazole) 500 Mg Tablet 1 Tab PO BID 03/01/17 Reported Cefpodoxime Proxetil 200 Mg Tablet 1 Tab PO BID 03/01/17 Reported Ferrous Sulfate 325 Mg Tablet 1 Tab PO DAILY 02/23/17 Reported Lasix (Furosemide) 40 Mg Tablet 40 Mg PO QODAY 02/23/17 Reported Potassium Chloride 10 Meq Capsule.er 10 Meq PO QODAY 02/23/17 Reported Metoprolol Tartrate 25 Mg Tablet 12.5 Mg PO BID 01/31/17 Reported Atorvastatin Calcium 40 Mg Tablet 40 Mg PO HS 01/31/17 Reported Clopidogrel (Clopidogrel Bisulfate) 75 Mg Tablet 1 Tab PO DAILY 08/24/15 Reported Diclofenac Sodium 75 Mg Tablet.dr 75 Mg PO DAILY 12/21/14 Reported Ranitidine Hcl 150 Mg Tablet 1 Tab PO BID 12/21/14 Reported Aspirin 81 Mg Tab.chew 1 Tab PO DAILY 04/15/14 Reported Impression . FULL NOTE DICTATED CASE D/W DR HAMMOND WILL START LOVENOX ACUTE RESP FAILURE EXPECTED POST SURGERY CT NOT PERFORMED FOR PE PROTOCOL WILL CHECK VENOUS DOPPLER THANKS IFEOMA SEXTON MD Mar 26, 2017 19:25
[2017-03-26] MEDS: IV NORMAL SALINE 1000ML BAG 1,000 ML IV SCH (20:43)
[2017-03-26] MEDS: FAMOTIDINE 20 MG/2 ML VIAL IVP SCH (20:49)
[2017-03-27] VITALS (23 sets, daily range): BP systolic 82–116; BP diastolic 40–76
--- NOTE | 2017-03-27 03:34 | CONS ---
DATE OF CONSULTATION: 03/26/2017 ATTENDING PHYSICIAN: Herman Prabhakar M.D. CONSULTING PHYSICIAN: Ifeoma Sexton M.D. REASON FOR CONSULTATION: The patient seen in pulmonary consultation at the request of Dr. Prabhakar for increasing shortness of air and hypotension. HISTORY OF PRESENT ILLNESS: The patient is a 71-year-old that presented back on 09 of March with persistent abdominal wall abscess with anaerobic bacteria despite the antibiotic therapy. The patient was evaluated by surgery, underwent surgical intervention 3 days ago, had a laparoscopic converted to open exploration for extensive lysis of adhesion, removal of old mesh, subtotal colectomy, small bowel resection and incisional hernia repair. She had some blood loss. She received transfusion. She was doing well up until the past 24 hours. She has been slightly more short of breath, increasing heart rate and hypotension. I was asked to see her in consultation. Earlier today, the patient underwent CT chest, abdomen and pelvis. The CT of the chest was not performed for PE protocol. I reviewed that there is no significant lung parenchymal infiltrates or evidence of CHF. She had small bilateral pleural effusion with some lower lobe atelectasis and cardiomegaly. There is no evidence of abscess formation within the abdominal cavity. An arterial blood gas was obtained earlier today revealing pH of 7.41, PaCO2 of 33, pO2 of 63 and this was on 24% FiO2. The patient had increased work of breathing. At that time, she was placed on BiPAP. She is currently on some BiPAP 16/6 with 35% FiO2. She appears to be comfortable. She does indicate that she is more short of breath today than she was yesterday. No chest pain. No pressure. No hemoptysis. No pleurisy. She denies any lower extremity pain. She has had sequential compressive devices on. PAST MEDICAL HISTORY: Otherwise remarkable for coronary artery disease, hypertension, previous myocardial infarction, hyperlipidemia, diverticulosis, anemia and osteoarthritis. PAST SURGICAL HISTORY: As indicated above recent surgery. She is status post cholecystectomy, hernia repair and hysterectomy. FAMILY HISTORY: Hypertension. SOCIAL HISTORY: She has never smoked, does not wear oxygen at home. Denies any alcohol abuse. ALLERGIES: To PENICILLIN, ADHESIVE TAPE, LATEX and METFORMIN. CURRENT MEDICATIONS: List was reviewed, please see the MRAD. REVIEW OF SYSTEMS: Unobtainable secondary to the patient's condition. PHYSICAL EXAMINATION: GENERAL: The patient was awake and alert, following commands, in no respiratory distress, currently on BiPAP. VITAL SIGNS: Noted. Her heart rate is elevated and blood pressure has been low at times. HEENT: Eyes, the sclerae were nonicteric. NECK: Jugular venous distention could not be assessed secondary to body habitus. CHEST: Full expansion. LUNGS: Adequate airway flow. No wheezes. CARDIOVASCULAR: Regular rate and rhythm with S1 and S2. No S3. ABDOMEN: Evidence of recent surgery. EXTREMITIES: Sequential compressive devices in place. No significant edema. NEUROLOGICAL: The patient was awake, alert, following commands. A detailed neuro exam was not performed. LABORATORY DATA: Reviewed. White count was elevated. Hemoglobin and hematocrit were noted. INR 2 days ago was 1.2. Electrolytes were deranged. BUN was normal. Creatinine was normal. Albumin was low. RADIOLOGICAL DATA: CT chest as indicated above. IMPRESSION: 1. [id number] respiratory failure, expected status post surgical intervention. 2. Status post laparoscopic converted to open exploration for extensive lysis of adhesion, removal of old mesh, subtotal colectomy, small bowel resection and incisional hernia repair. 3. Obesity, body mass index of 35. 4. Leukocytosis. 5. Enterocutaneous fistula. 6. Fever. 7. Abdominal abscess. 8. Ventral hernia, status post repair. PLAN: 1. Case discussed with Dr. Hall, we will initiate Lovenox 1 mg per kg q.12, my clinical suspicion for PE is high. CT of the chest was not performed per PE protocol. 2. Continue BiPAP. 3. Continue support with antibiotics. 4. Follow surgery input. 5. Nutritional support. The above was discussed with the and at bedside and Dr. Hall per phone. I do appreciate the privilege in sharing in the patient's care. Total cumulative critical care time of 50 minutes. IFEOMA SEXTON MD DR: CYNTHIA/suleman JOB#: [id number] / [id number]
[2017-03-27 05:52] LABS: BASO % 0 % (0-3); EOS % 0 % (0-3); HEMATOCRIT 35.6 % (36.0-47.0); HEMOGLOBIN 11.7 g/dL (12.0-15.5); LYMPH # 1.1 x10^3/uL (1.0-4.8); LYMPH % 6 % (24-48); MEAN CORPUSCULAR HEMOGLOBIN 29 pg (25-35); MEAN CORPUSCULAR HGB CONC 33 g/dL (31-37); MEAN CORPUSCULAR VOLUME 88 fL (79-100); MONO % 3 % (0-9); NEUT % 91 % (31-73); PLATELET COUNT 46 x10^3/uL (140-400); RED BLOOD COUNT 4.06 x10^6/uL (3.50-5.40); RED CELL DISTRIBUTION WIDTH 18.2 % (11.5-14.5)
[2017-03-27] MEDS: IV DEXTROSE 5%-LACT RINGERS 1,000 ML IV SCH ×4 (05:53→21:50)
[2017-03-27] MEDS: MEROPENEM IV Push 500 MG VIAL. IVP SCH ×3 (05:54→21:51)
[2017-03-27 05:55] LABS: CALCIUM 8.4 mg/dL (8.5-10.1); CREATININE 0.9 mg/dL (0.6-1.0); GFR 61.7; POTASSIUM 4.5 mmol/L (3.5-5.1)
--- NOTE | 2017-03-27 07:28 | RAD ---
EXAM: Bilateral lower extremity venous Doppler. HISTORY: Bilateral lower extremity pain/swelling. Respiratory failure. COMPARISON: None. FINDINGS: Grayscale and Doppler analysis of the both lower extremity deep venous systems was performed with graded compression and augmentation. The common femoral, greater saphenous, superficial femoral, popliteal and calf veins were assessed. There is no evidence of deep venous thrombosis. IMPRESSION: 1. No evidence of deep venous thrombosis.
[2017-03-27] MEDS: GLIMEPIRIDE 2 MG TABLET. PO SCH (08:00)
--- NOTE | 2017-03-27 08:01 | PDOC ---
Infectious Disease Note Subjective Subjective pt feeling ok, sob, on bipap ROS ROS no n/v/d/pain Vital Sign Vital Signs Vital Signs Date Time Temp Pulse Resp B/P (MAP) Pulse Ox O2 Delivery O2 Flow Rate FiO2 03/27/17 07:00 98.2 81 24 108/44 (65) 99 BiPAP/CPAP 98.2 03/26/17 17:15 1.0 Physical Exam PHYSICAL EXAM GENERAL: , Alert , mild distress, on bipap HEENT: PERRL, OC/OP NECK: Supple, no JVD, no LN LUNGS: Clear HEART: S1S2, no gallop, no murmur ABD: Soft, NT, no organomegaly, no rebound EXT: No edema, no cyanosis FOOD EXPEDITOR: Alert, oriented x 3, no focal neurologic deficit SKIN: No rash IV: ok Labs Lab Laboratory Tests Test 03/26/17 15:20 03/26/17 16:05 03/26/17 17:15 03/27/17 01:25 White Blood Count 18.6 x10^3/uL (4.0-11.0) Red Blood Count 4.28 x10^6/uL (3.50-5.40) Hemoglobin 12.4 g/dL (12.0-15.5) Hematocrit 37.5 % (36.0-47.0) Mean Corpuscular Volume 88 fL (79-100) Mean Corpuscular Hemoglobin 29 pg (25-35) Mean Corpuscular Hemoglobin Concent 33 g/dL (31-37) Red Cell Distribution Width 17.6 % (11.5-14.5) Platelet Count 52 x10^3/uL (140-400) Lactic Acid Level 3.3 mmol/L (0.4-2.0) O2 Saturation 92 % (92-99) Arterial Blood pH 7.41 (7.35-7.45) Arterial Blood pCO2 at Patient Temp 33 mmHg (35-46) Arterial Blood pO2 at Patient Temp 63 mmHg (65-108) Arterial Blood HCO3 20 mmol/L (21-28) Arterial Blood Base Excess -4 mmol/L (-3-3) FiO2 24 Glucose (Fingerstick) 185 mg/dL (70-99) Test 03/27/17 05:15 White Blood Count 19.0 x10^3/uL (4.0-11.0) Red Blood Count 4.06 x10^6/uL (3.50-5.40) Hemoglobin 11.7 g/dL (12.0-15.5) Hematocrit 35.6 % (36.0-47.0) Mean Corpuscular Volume 88 fL (79-100) Mean Corpuscular Hemoglobin 29 pg (25-35) Mean Corpuscular Hemoglobin Concent 33 g/dL (31-37) Red Cell Distribution Width 18.2 % (11.5-14.5) Platelet Count 46 x10^3/uL (140-400) Neutrophils (%) (Auto) 91 % (31-73) Lymphocytes (%) (Auto) 6 % (24-48) Monocytes (%) (Auto) 3 % (0-9) Eosinophils (%) (Auto) 0 % (0-3) Basophils (%) (Auto) 0 % (0-3) Neutrophils # (Auto) 17.3 x10^3uL (1.8-7.7) Lymphocytes # (Auto) 1.1 x10^3/uL (1.0-4.8) Monocytes # (Auto) 0.5 x10^3/uL (0.0-1.1) Eosinophils # (Auto) 0.0 x10^3/uL (0.0-0.7) Basophils # (Auto) 0.0 x10^3/uL (0.0-0.2) Sodium Level 138 mmol/L (136-145) Potassium Level 4.5 mmol/L (3.5-5.1) Chloride Level 105 mmol/L (98-107) Carbon Dioxide Level 22 mmol/L (21-32) Anion Gap 11 (6-14) Blood Urea Nitrogen 21 mg/dL (7-20) Creatinine 0.9 mg/dL (0.6-1.0) Estimated GFR (Cockcroft-Gault) 61.7 Glucose Level 192 mg/dL (70-99) Calcium Level 8.4 mg/dL (8.5-10.1) Micro ct noted Objective Assessment s/p lap converted to open exploration, JAIRO, removal of infected mesh, subtotal colectomy, SBR and hernia repair, 03/24 Leukocytosis, likely reactive, (Dexamethasone pre-op) EC fistula Fever - better Abdominal abscess, measuring 6.4 x 4.9 cm. s/p drain 03/12. Klebsiella ( R to Zosyn, S Cipro/Levo), VRE (R PCN) and PSAE ( R to ticarcillin only otherwise sensitive, S Cipro/Levo) and C tropicalis h/o Strep anginosis and Bacteroides Ventral hernia DM HTN PCN allergy/amox also - hives and swelling Plan Plan of Care Cont Zyvox (03/14)/meropenem/Fluconazole Contact isolation f/u am labs D/w son d/w dr Dr Uche RODNEY,SANDRA Turner MD Mar 27, 2017 08:01
--- NOTE | 2017-03-27 08:16 | PDOC ---
SUBJECTIVE Subjective On Bipap this morning, resting somewhat comfortably. Alert, oriented. Pain well controlled. Off Levophed at the moment. BP still soft. OBJECTIVE Objective Reviewed CT and US findings Vital Signs Vital Signs Date Time Temp Pulse Resp B/P (MAP) Pulse Ox O2 Delivery O2 Flow Rate FiO2 03/27/17 07:00 98.2 81 24 108/44 (65) 99 BiPAP/CPAP 98.2 03/27/17 06:00 94 23 92/44 (60) 99 BiPAP/CPAP 03/27/17 05:50 99 BiPAP/CPAP 03/27/17 05:00 116 25 113/45 (67) 99 BiPAP/CPAP 03/27/17 04:00 98.0 114 21 92/44 (60) 99 BiPAP/CPAP 98.0 03/27/17 04:00 Bi-pap 03/27/17 03:00 122 24 94/44 (61) 99 BiPAP/CPAP 03/27/17 03:00 98 BiPAP/CPAP 03/27/17 02:00 120 29 100/50 (67) 98 BiPAP/CPAP 03/27/17 01:00 111 31 90/40 (57) 98 BiPAP/CPAP 03/26/17 23:59 Bi-pap 03/26/17 23:59 97.5 121 31 118/79 (92) 98 BiPAP/CPAP 97.5 03/26/17 23:47 99 BiPAP/CPAP 03/26/17 23:00 112 30 110/56 (74) 98 BiPAP/CPAP 03/26/17 22:10 100 BiPAP/CPAP 03/26/17 22:00 118 33 114/70 (85) 96 BiPAP/CPAP 03/26/17 21:00 122 34 109/67 (81) 100 BiPAP/CPAP 03/26/17 20:00 Bi-pap 03/26/17 20:00 99.0 130 41 108/50 (69) 99 BiPAP/CPAP 99.0 03/26/17 19:41 100 BiPAP/CPAP 03/26/17 19:00 118 46 99/46 (63) 99 BiPAP/CPAP 03/26/17 18:00 122 27 94/41 (58) 99 BiPAP/CPAP 03/26/17 17:46 98 BiPAP/CPAP 03/26/17 17:45 132 34 69/47 (54) 98 BiPAP/CPAP 03/26/17 17:15 96 Nasal Cannula 1.0 03/26/17 17:00 130 34 70/40 (50) 99 BiPAP/CPAP 03/26/17 16:00 Nasal Cannula 2.0 03/26/17 16:00 124 31 88/59 (69) 94 Nasal Cannula 2.0 03/26/17 15:06 123 98/59 03/26/17 15:00 120 34 91/63 (72) 93 Nasal Cannula 2.0 03/26/17 14:00 120 34 98/59 (72) 93 Room Air 03/26/17 13:00 120 32 93/57 (69) 91 Room Air 03/26/17 12:03 98.3 121 30 104/60 (75) 94 Room Air 98.3 03/26/17 11:59 Room Air 03/26/17 11:00 121 34 91/68 (76) 95 Room Air 03/26/17 10:00 119 30 77/52 (60) 94 Room Air 03/26/17 09:00 118 30 102/47 (65) 94 Room Air 03/26/17 08:00 Room Air 03/26/17 08:00 118 30 106/61 (76) 94 Room Air I & O Intake and Output 03/27/17 07:00 Intake Total 1825 ml Output Total 1280 ml Balance 545 ml IV Total 1825 ml Output Urine Total 1280 ml PHYSICAL EXAM Physical Exam NAD, alert, oriented, bipap in place Rhythm was initially regular, then somewhat irregular Fine crackles in bilateral bases, otherwise clear Abd binder in place No LE edema, tenderness, redness Cooperative ASSESSMENT/PLAN Assessment/Plan 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 s/p drain 03/12. Klebsiella ( R to Zosyn, S Cipro/Levo), VRE (R PCN) and PSAE ( R to ticarcillin only otherwise sensitive, S Cipro/Levo) and C tropicalis, h/o Strep anginosis and Bacteroides Ventral hernia DM HTN - currently hypotensive Acute on chronic respiratory failure High clinical suspicion for PE Tachycardia ?irregular rhythm Thrombocytopenia Lactic acidosis Pulm consulted Surgery following Levophed to maintain MAP 65 or > CT not done for PE protocol due to communication error; start Lovenox 1g/kg Q12H due to clinical suspicion BiPap Cont meropenem/Fluconazole per ID, Zyvox stopped due to thrombocytopenia, switch to daptomycin Get EKG Repeat lactic acid Problems: COMMENT Lab Laboratory Tests Test 03/26/17 15:20 03/26/17 16:05 03/26/17 17:15 03/27/17 01:25 White Blood Count 18.6 x10^3/uL (4.0-11.0) Red Blood Count 4.28 x10^6/uL (3.50-5.40) Hemoglobin 12.4 g/dL (12.0-15.5) Hematocrit 37.5 % (36.0-47.0) Mean Corpuscular Volume 88 fL (79-100) Mean Corpuscular Hemoglobin 29 pg (25-35) Mean Corpuscular Hemoglobin Concent 33 g/dL (31-37) Red Cell Distribution Width 17.6 % (11.5-14.5) Platelet Count 52 x10^3/uL (140-400) Lactic Acid Level 3.3 mmol/L (0.4-2.0) O2 Saturation 92 % (92-99) Arterial Blood pH 7.41 (7.35-7.45) Arterial Blood pCO2 at Patient Temp 33 mmHg (35-46) Arterial Blood pO2 at Patient Temp 63 mmHg (65-108) Arterial Blood HCO3 20 mmol/L (21-28) Arterial Blood Base Excess -4 mmol/L (-3-3) FiO2 24 Glucose (Fingerstick) 185 mg/dL (70-99) Test 03/27/17 05:15 White Blood Count 19.0 x10^3/uL (4.0-11.0) Red Blood Count 4.06 x10^6/uL (3.50-5.40) Hemoglobin 11.7 g/dL (12.0-15.5) Hematocrit 35.6 % (36.0-47.0) Mean Corpuscular Volume 88 fL (79-100) Mean Corpuscular Hemoglobin 29 pg (25-35) Mean Corpuscular Hemoglobin Concent 33 g/dL (31-37) Red Cell Distribution Width 18.2 % (11.5-14.5) Platelet Count 46 x10^3/uL (140-400) Neutrophils (%) (Auto) 91 % (31-73) Lymphocytes (%) (Auto) 6 % (24-48) Monocytes (%) (Auto) 3 % (0-9) Eosinophils (%) (Auto) 0 % (0-3) Basophils (%) (Auto) 0 % (0-3) Neutrophils # (Auto) 17.3 x10^3uL (1.8-7.7) Lymphocytes # (Auto) 1.1 x10^3/uL (1.0-4.8) Monocytes # (Auto) 0.5 x10^3/uL (0.0-1.1) Eosinophils # (Auto) 0.0 x10^3/uL (0.0-0.7) Basophils # (Auto) 0.0 x10^3/uL (0.0-0.2) Sodium Level 138 mmol/L (136-145) Potassium Level 4.5 mmol/L (3.5-5.1) Chloride Level 105 mmol/L (98-107) Carbon Dioxide Level 22 mmol/L (21-32) Anion Gap 11 (6-14) Blood Urea Nitrogen 21 mg/dL (7-20) Creatinine 0.9 mg/dL (0.6-1.0) Estimated GFR (Cockcroft-Gault) 61.7 Glucose Level 192 mg/dL (70-99) Calcium Level 8.4 mg/dL (8.5-10.1) STEPHON BLAND MD Mar 27, 2017 08:16
[2017-03-27] MEDS: ASPIRIN CHEWABLE 81 MG TABLET. PO SCH (08:48)
[2017-03-27] MEDS: METOPROLOL SUCC 24HR ER 25 MG TAB.ER.24H. PO SCH (08:48)
[2017-03-27] MEDS: DICLOFENAC SODIUM 25 MG TABLET.DR PO SCH (08:48)
[2017-03-27] MEDS: FERROUS SULFATE 325 MG TABLET. PO SCH (08:48)
[2017-03-27] MEDS: PANTOPRAZOLE IV PUSH 40 MG VIAL. IVP SCH (09:00)
[2017-03-27] MEDS: FUROSEMIDE 20 MG/2 ML VIAL. IVP SCH ×2 (09:00→15:21)
[2017-03-27] MEDS: NORMAL SALINE IV SCH (09:01)
[2017-03-27] MEDS: DAPTOMYCIN IV SCH (09:01)
--- NOTE | 2017-03-27 10:10 | PDOC ---
LUIZ HENRY ACTIVITIES COUNSELOR 03/27/17 1010: CARDIO Progress Notes Date and Time Date of Service 03/27/17 Time of Evaluation 1000 Subjective Subjective: No Chest Pain, No Palpitations, No Dizziness, Other (on BiPAP- breathing better) Vitals Vitals Vital Signs Date Time Temp Pulse Resp B/P (MAP) Pulse Ox O2 Delivery O2 Flow Rate FiO2 03/27/17 09:00 76 24 98/45 (62) 96 BiPAP/CPAP 03/27/17 08:00 1.0 03/27/17 07:00 98.2 98.2 Weight Weight [ ] Input and Output Intake and Output Intake and Output 03/27/17 07:00 Intake Total 1825 ml Output Total 1280 ml Balance 545 ml IV Total 1825 ml Output Urine Total 1280 ml Laboratory Labs Laboratory Tests Test 03/26/17 15:20 03/26/17 16:05 03/26/17 17:15 03/27/17 01:25 White Blood Count 18.6 x10^3/uL (4.0-11.0) Red Blood Count 4.28 x10^6/uL (3.50-5.40) Hemoglobin 12.4 g/dL (12.0-15.5) Hematocrit 37.5 % (36.0-47.0) Mean Corpuscular Volume 88 fL (79-100) Mean Corpuscular Hemoglobin 29 pg (25-35) Mean Corpuscular Hemoglobin Concent 33 g/dL (31-37) Red Cell Distribution Width 17.6 % (11.5-14.5) Platelet Count 52 x10^3/uL (140-400) Lactic Acid Level 3.3 mmol/L (0.4-2.0) O2 Saturation 92 % (92-99) Arterial Blood pH 7.41 (7.35-7.45) Arterial Blood pCO2 at Patient Temp 33 mmHg (35-46) Arterial Blood pO2 at Patient Temp 63 mmHg (65-108) Arterial Blood HCO3 20 mmol/L (21-28) Arterial Blood Base Excess -4 mmol/L (-3-3) FiO2 24 Glucose (Fingerstick) 185 mg/dL (70-99) Test 03/27/17 05:15 03/27/17 08:16 White Blood Count 19.0 x10^3/uL (4.0-11.0) Red Blood Count 4.06 x10^6/uL (3.50-5.40) Hemoglobin 11.7 g/dL (12.0-15.5) Hematocrit 35.6 % (36.0-47.0) Mean Corpuscular Volume 88 fL (79-100) Mean Corpuscular Hemoglobin 29 pg (25-35) Mean Corpuscular Hemoglobin Concent 33 g/dL (31-37) Red Cell Distribution Width 18.2 % (11.5-14.5) Platelet Count 46 x10^3/uL (140-400) Neutrophils (%) (Auto) 91 % (31-73) Lymphocytes (%) (Auto) 6 % (24-48) Monocytes (%) (Auto) 3 % (0-9) Eosinophils (%) (Auto) 0 % (0-3) Basophils (%) (Auto) 0 % (0-3) Neutrophils # (Auto) 17.3 x10^3uL (1.8-7.7) Lymphocytes # (Auto) 1.1 x10^3/uL (1.0-4.8) Monocytes # (Auto) 0.5 x10^3/uL (0.0-1.1) Eosinophils # (Auto) 0.0 x10^3/uL (0.0-0.7) Basophils # (Auto) 0.0 x10^3/uL (0.0-0.2) Sodium Level 138 mmol/L (136-145) Potassium Level 4.5 mmol/L (3.5-5.1) Chloride Level 105 mmol/L (98-107) Carbon Dioxide Level 22 mmol/L (21-32) Anion Gap 11 (6-14) Blood Urea Nitrogen 21 mg/dL (7-20) Creatinine 0.9 mg/dL (0.6-1.0) Estimated GFR (Cockcroft-Gault) 61.7 Glucose Level 192 mg/dL (70-99) Calcium Level 8.4 mg/dL (8.5-10.1) Lactic Acid Level 3.4 mmol/L (0.4-2.0) Microbiology Micro Microbiology 03/09/17 Blood Culture - Final, Complete NO GROWTH AFTER 5 DAYS 03/09/17 Urine Culture - Final, Complete 11/3/17 Urine Culture Result 1 (KULDEEP) - Final, Complete 03/12/17 Fungal Culture - Final, Complete 03/12/17 Fungal Culture Result 1 - Final, Complete Physical Exam HEENT: Neck Supple W Full Motion Chest: Symmetric LUNGS: Other (diminished bases ) Heart: S1S2, other (distant heart tones, tele: ST with PAC's and PVC's ) Abdomen: Other (Drsg intact ) Extremities: No Edema Neurology: alert, follow commands Assessment Assessment 1. Sinus tachycardia; reactive. Multifactorial given acute abdominal process/ infection and respiratory failure/possible PE 2. Acute on chronic respiratory failure post-op. Requiring BiPAP. clinical suspicion of PE- Lovenox initiated 3. Leukocytosis with fevers; improved 4. Abdominal abscess 2/2 infected mesh. 5. EC fistula; s/p open surgery with removal of removal of infected mesh, subtotal colectomy, and hernia repair 6 CAD: stable, recent LHC with patent stents 7. HTN; with post-op hypotension. Off pressor support 8. DM2/HLP Recommendations 1. Hold BB with hypotension. Pressor support as warranted 2. Use IV Dig PRN for HR rate control- will have to accept some mild tachycardia 3. Continue secondary prevention measures as able. Resume Plavix post op when clear from a surgical standpoint 4. Post-op management as per the surgical team 5. Antibiotic therapy as per ID ARLEN BAIRD MD 03/27/17 1637: CARDIO Progress Notes Assessment Assessment Patient seen and examined. Agree with FERTILIZING MACHINE OPERATOR's assessment and plan. Sinus tachycardia physiologic. CAD status clinically stable. Continue postop care per surgical team. Continue management of acute on chronic respiratory failure per pulmonary team. LUIZ HENRY APRN Mar 27, 2017 10:10 ARLEN BAIRD MD Mar 27, 2017 16:37
--- NOTE | 2017-03-27 11:00 | PDOC ---
PULMONARY PROGRESS NOTES Subjective PT FEELS BETTER LESS SOA NO CHEST PAIN Vitals Vital Signs Date Time Temp Pulse Resp B/P (MAP) Pulse Ox O2 Delivery O2 Flow Rate FiO2 03/27/17 10:00 127 24 110/56 (74) 98 BiPAP/CPAP 03/27/17 08:00 1.0 03/27/17 07:00 98.2 98.2 General: Alert Lungs: Crackles Cardiovascular: S1, S2 Abdomen: Soft, Non-tender Neuro Exam: Alert Extremities: No Edema Skin: Warm Labs Laboratory Tests Test 03/25/17 16:00 03/26/17 06:00 03/26/17 15:20 03/26/17 16:05 Sodium Level 135 mmol/L (136-145) 135 mmol/L (136-145) Potassium Level 5.3 mmol/L (3.5-5.1) 4.5 mmol/L (3.5-5.1) Chloride Level 104 mmol/L (98-107) 105 mmol/L (98-107) Carbon Dioxide Level 20 mmol/L (21-32) 21 mmol/L (21-32) Anion Gap 11 (6-14) 9 (6-14) Blood Urea Nitrogen 37 mg/dL (7-20) 28 mg/dL (7-20) Creatinine 1.2 mg/dL (0.6-1.0) 0.9 mg/dL (0.6-1.0) Estimated GFR (Cockcroft-Gault) 44.3 61.7 Glucose Level 262 mg/dL (70-99) 178 mg/dL (70-99) Calcium Level 8.0 mg/dL (8.5-10.1) 8.6 mg/dL (8.5-10.1) White Blood Count 18.0 x10^3/uL (4.0-11.0) 18.6 x10^3/uL (4.0-11.0) Red Blood Count 4.48 x10^6/uL (3.50-5.40) 4.28 x10^6/uL (3.50-5.40) Hemoglobin 12.8 g/dL (12.0-15.5) 12.4 g/dL (12.0-15.5) Hematocrit 39.1 % (36.0-47.0) 37.5 % (36.0-47.0) Mean Corpuscular Volume 87 fL (79-100) 88 fL (79-100) Mean Corpuscular Hemoglobin 29 pg (25-35) 29 pg (25-35) Mean Corpuscular Hemoglobin Concent 33 g/dL (31-37) 33 g/dL (31-37) Red Cell Distribution Width 18.0 % (11.5-14.5) 17.6 % (11.5-14.5) Platelet Count 71 x10^3/uL (140-400) 52 x10^3/uL (140-400) Neutrophils (%) (Auto) 92 % (31-73) Lymphocytes (%) (Auto) 5 % (24-48) Monocytes (%) (Auto) 3 % (0-9) Eosinophils (%) (Auto) 0 % (0-3) Basophils (%) (Auto) 0 % (0-3) Neutrophils # (Auto) 16.5 x10^3uL (1.8-7.7) Lymphocytes # (Auto) 1.0 x10^3/uL (1.0-4.8) Monocytes # (Auto) 0.5 x10^3/uL (0.0-1.1) Eosinophils # (Auto) 0.0 x10^3/uL (0.0-0.7) Basophils # (Auto) 0.0 x10^3/uL (0.0-0.2) BUN/Creatinine Ratio 31 (6-20) Total Bilirubin 0.6 mg/dL (0.2-1.0) Aspartate Amino Transf (AST/SGOT) 29 U/L (15-37) Alanine Aminotransferase (ALT/SGPT) 15 U/L (14-59) Alkaline Phosphatase 67 U/L (46-116) Total Protein 5.2 g/dL (6.4-8.2) Albumin 1.9 g/dL (3.4-5.0) Albumin/Globulin Ratio 0.6 (1.0-1.7) Lactic Acid Level 3.3 mmol/L (0.4-2.0) Test 03/26/17 17:15 03/27/17 01:25 03/27/17 05:15 03/27/17 08:16 O2 Saturation 92 % (92-99) Arterial Blood pH 7.41 (7.35-7.45) Arterial Blood pCO2 at Patient Temp 33 mmHg (35-46) Arterial Blood pO2 at Patient Temp 63 mmHg (65-108) Arterial Blood HCO3 20 mmol/L (21-28) Arterial Blood Base Excess -4 mmol/L (-3-3) FiO2 24 Glucose (Fingerstick) 185 mg/dL (70-99) White Blood Count 19.0 x10^3/uL (4.0-11.0) Red Blood Count 4.06 x10^6/uL (3.50-5.40) Hemoglobin 11.7 g/dL (12.0-15.5) Hematocrit 35.6 % (36.0-47.0) Mean Corpuscular Volume 88 fL (79-100) Mean Corpuscular Hemoglobin 29 pg (25-35) Mean Corpuscular Hemoglobin Concent 33 g/dL (31-37) Red Cell Distribution Width 18.2 % (11.5-14.5) Platelet Count 46 x10^3/uL (140-400) Neutrophils (%) (Auto) 91 % (31-73) Lymphocytes (%) (Auto) 6 % (24-48) Monocytes (%) (Auto) 3 % (0-9) Eosinophils (%) (Auto) 0 % (0-3) Basophils (%) (Auto) 0 % (0-3) Neutrophils # (Auto) 17.3 x10^3uL (1.8-7.7) Lymphocytes # (Auto) 1.1 x10^3/uL (1.0-4.8) Monocytes # (Auto) 0.5 x10^3/uL (0.0-1.1) Eosinophils # (Auto) 0.0 x10^3/uL (0.0-0.7) Basophils # (Auto) 0.0 x10^3/uL (0.0-0.2) Sodium Level 138 mmol/L (136-145) Potassium Level 4.5 mmol/L (3.5-5.1) Chloride Level 105 mmol/L (98-107) Carbon Dioxide Level 22 mmol/L (21-32) Anion Gap 11 (6-14) Blood Urea Nitrogen 21 mg/dL (7-20) Creatinine 0.9 mg/dL (0.6-1.0) Estimated GFR (Cockcroft-Gault) 61.7 Glucose Level 192 mg/dL (70-99) Calcium Level 8.4 mg/dL (8.5-10.1) Lactic Acid Level 3.4 mmol/L (0.4-2.0) Laboratory Tests Test 03/26/17 15:20 03/26/17 16:05 03/26/17 17:15 03/27/17 01:25 White Blood Count 18.6 x10^3/uL (4.0-11.0) Red Blood Count 4.28 x10^6/uL (3.50-5.40) Hemoglobin 12.4 g/dL (12.0-15.5) Hematocrit 37.5 % (36.0-47.0) Mean Corpuscular Volume 88 fL (79-100) Mean Corpuscular Hemoglobin 29 pg (25-35) Mean Corpuscular Hemoglobin Concent 33 g/dL (31-37) Red Cell Distribution Width 17.6 % (11.5-14.5) Platelet Count 52 x10^3/uL (140-400) Lactic Acid Level 3.3 mmol/L (0.4-2.0) O2 Saturation 92 % (92-99) Arterial Blood pH 7.41 (7.35-7.45) Arterial Blood pCO2 at Patient Temp 33 mmHg (35-46) Arterial Blood pO2 at Patient Temp 63 mmHg (65-108) Arterial Blood HCO3 20 mmol/L (21-28) Arterial Blood Base Excess -4 mmol/L (-3-3) FiO2 24 Glucose (Fingerstick) 185 mg/dL (70-99) Test 03/27/17 05:15 03/27/17 08:16 White Blood Count 19.0 x10^3/uL (4.0-11.0) Red Blood Count 4.06 x10^6/uL (3.50-5.40) Hemoglobin 11.7 g/dL (12.0-15.5) Hematocrit 35.6 % (36.0-47.0) Mean Corpuscular Volume 88 fL (79-100) Mean Corpuscular Hemoglobin 29 pg (25-35) Mean Corpuscular Hemoglobin Concent 33 g/dL (31-37) Red Cell Distribution Width 18.2 % (11.5-14.5) Platelet Count 46 x10^3/uL (140-400) Neutrophils (%) (Auto) 91 % (31-73) Lymphocytes (%) (Auto) 6 % (24-48) Monocytes (%) (Auto) 3 % (0-9) Eosinophils (%) (Auto) 0 % (0-3) Basophils (%) (Auto) 0 % (0-3) Neutrophils # (Auto) 17.3 x10^3uL (1.8-7.7) Lymphocytes # (Auto) 1.1 x10^3/uL (1.0-4.8) Monocytes # (Auto) 0.5 x10^3/uL (0.0-1.1) Eosinophils # (Auto) 0.0 x10^3/uL (0.0-0.7) Basophils # (Auto) 0.0 x10^3/uL (0.0-0.2) Sodium Level 138 mmol/L (136-145) Potassium Level 4.5 mmol/L (3.5-5.1) Chloride Level 105 mmol/L (98-107) Carbon Dioxide Level 22 mmol/L (21-32) Anion Gap 11 (6-14) Blood Urea Nitrogen 21 mg/dL (7-20) Creatinine 0.9 mg/dL (0.6-1.0) Estimated GFR (Cockcroft-Gault) 61.7 Glucose Level 192 mg/dL (70-99) Calcium Level 8.4 mg/dL (8.5-10.1) Lactic Acid Level 3.4 mmol/L (0.4-2.0) Medications Active Scripts Medications Dose Route/Sig Max Daily Dose Days Date Category Flagyl (Metronidazole) 500 Mg Tablet 1 Tab PO BID 03/01/17 Reported Cefpodoxime Proxetil 200 Mg Tablet 1 Tab PO BID 03/01/17 Reported Ferrous Sulfate 325 Mg Tablet 1 Tab PO DAILY 02/23/17 Reported Lasix (Furosemide) 40 Mg Tablet 40 Mg PO QODAY 02/23/17 Reported Potassium Chloride 10 Meq Capsule.er 10 Meq PO QODAY 02/23/17 Reported Metoprolol Tartrate 25 Mg Tablet 12.5 Mg PO BID 01/31/17 Reported Atorvastatin Calcium 40 Mg Tablet 40 Mg PO HS 01/31/17 Reported Clopidogrel (Clopidogrel Bisulfate) 75 Mg Tablet 1 Tab PO DAILY 4/19/16 Reported Diclofenac Sodium 75 Mg Tablet.dr 75 Mg PO DAILY 12/21/14 Reported Ranitidine Hcl 150 Mg Tablet 1 Tab PO BID 12/21/14 Reported Aspirin 81 Mg Tab.chew 1 Tab PO DAILY 04/15/14 Reported Impression . 1. Worio-ii-yurmkti respiratory failure, expected status post surgical intervention. 2. Status post laparoscopic converted to open exploration for extensive lysis of adhesion, removal of old mesh, subtotal colectomy, small bowel resection and incisional hernia repair. 3. Obesity, body mass index of 35. 4. Leukocytosis. 5. Enterocutaneous fistula. 6. Fever. 7. Abdominal abscess. 8. Ventral hernia, status post repair. Plan . VENOUS DOPPLER NEGATIVE I THINK WE SHOULD CONFIRM DX OF PE PRIOR TO COMMITTING PT TO ANTICOAGULATION RUBBLE PLACER WILL OBTAIN A CT ANGIO IN COUPLE OF DAYS 1. Case discussed with Dr. Hall, we will initiate Lovenox 1 mg per kg q.12, my clinical suspicion for PE is high. CT of the chest was not performed per PE protocol. 2. Continue BiPAP. 3. Continue support with antibiotics. 4. Follow surgery input. 5. Nutritional support. IFEOMA SEXTON MD Mar 27, 2017 11:00
--- NOTE | 2017-03-27 11:51 | EKG ---
[facility] [address] [place] [address] Test Date: 2017-03-27 Test Time: 11:47:53 Pat Name: SAFIA MIRANDA Department: Room: 106 1 Gender: F Pharmacy Operations Coordinator: ANDRY : 1945 Requested By: STEPHON BLAND Order Number: [id number] Reading MD: Shoaib Nowak Measurements Intervals [place] Rate: 123 P: -49 WV: 120 QRS: 18 QRSD: 96 T: 69 QT: 354 QTc: 513 Interpretive Statements SINUS TACHYCARDIA COMPLEX(ES) WITH ABERRANT INTRAVENTRICULAR CONDUCTION ATRIAL PREMATURE COMPLEX(ES), BIGEMINY LOW LIMB LEAD VOLTAGE ABNORMAL ECG Electronically Signed On 04-09-2017 13:52:55 DRAIN TECHNICIAN by Shoaib Nowak
--- NOTE | 2017-03-27 11:56 | PDOC ---
SURGICAL PROGRESS NOTE Subjective off bipap this am breathing better than yesterday Vital Signs Vital Signs Date Time Temp Pulse Resp B/P (MAP) Pulse Ox O2 Delivery O2 Flow Rate FiO2 03/27/17 11:00 119 30 82/52 (62) 100 Nasal Cannula 2.0 03/27/17 07:00 98.2 98.2 I&O Intake and Output 03/27/17 07:00 Intake Total 1825 ml Output Total 1280 ml Balance 545 ml IV Total 1825 ml Output Urine Total 1280 ml General: Alert, Oriented X3, Cooperative, No acute distress HEENT: Other (ng in place) Abdomen: Soft, Other (ND, incision c/d/i, no erythema, stoma some sloughing, bloody drainage) Labs Laboratory Tests Test 03/25/17 16:00 03/26/17 06:00 03/26/17 15:20 03/26/17 16:05 Sodium Level 135 mmol/L (136-145) 135 mmol/L (136-145) Potassium Level 5.3 mmol/L (3.5-5.1) 4.5 mmol/L (3.5-5.1) Chloride Level 104 mmol/L (98-107) 105 mmol/L (98-107) Carbon Dioxide Level 20 mmol/L (21-32) 21 mmol/L (21-32) Anion Gap 11 (6-14) 9 (6-14) Blood Urea Nitrogen 37 mg/dL (7-20) 28 mg/dL (7-20) Creatinine 1.2 mg/dL (0.6-1.0) 0.9 mg/dL (0.6-1.0) Estimated GFR (Cockcroft-Gault) 44.3 61.7 Glucose Level 262 mg/dL (70-99) 178 mg/dL (70-99) Calcium Level 8.0 mg/dL (8.5-10.1) 8.6 mg/dL (8.5-10.1) White Blood Count 18.0 x10^3/uL (4.0-11.0) 18.6 x10^3/uL (4.0-11.0) Red Blood Count 4.48 x10^6/uL (3.50-5.40) 4.28 x10^6/uL (3.50-5.40) Hemoglobin 12.8 g/dL (12.0-15.5) 12.4 g/dL (12.0-15.5) Hematocrit 39.1 % (36.0-47.0) 37.5 % (36.0-47.0) Mean Corpuscular Volume 87 fL (79-100) 88 fL (79-100) Mean Corpuscular Hemoglobin 29 pg (25-35) 29 pg (25-35) Mean Corpuscular Hemoglobin Concent 33 g/dL (31-37) 33 g/dL (31-37) Red Cell Distribution Width 18.0 % (11.5-14.5) 17.6 % (11.5-14.5) Platelet Count 71 x10^3/uL (140-400) 52 x10^3/uL (140-400) Neutrophils (%) (Auto) 92 % (31-73) Lymphocytes (%) (Auto) 5 % (24-48) Monocytes (%) (Auto) 3 % (0-9) Eosinophils (%) (Auto) 0 % (0-3) Basophils (%) (Auto) 0 % (0-3) Neutrophils # (Auto) 16.5 x10^3uL (1.8-7.7) Lymphocytes # (Auto) 1.0 x10^3/uL (1.0-4.8) Monocytes # (Auto) 0.5 x10^3/uL (0.0-1.1) Eosinophils # (Auto) 0.0 x10^3/uL (0.0-0.7) Basophils # (Auto) 0.0 x10^3/uL (0.0-0.2) BUN/Creatinine Ratio 31 (6-20) Total Bilirubin 0.6 mg/dL (0.2-1.0) Aspartate Amino Transf (AST/SGOT) 29 U/L (15-37) Alanine Aminotransferase (ALT/SGPT) 15 U/L (14-59) Alkaline Phosphatase 67 U/L (46-116) Total Protein 5.2 g/dL (6.4-8.2) Albumin 1.9 g/dL (3.4-5.0) Albumin/Globulin Ratio 0.6 (1.0-1.7) Lactic Acid Level 3.3 mmol/L (0.4-2.0) Test 03/26/17 17:15 03/27/17 01:25 03/27/17 05:15 03/27/17 08:16 O2 Saturation 92 % (92-99) Arterial Blood pH 7.41 (7.35-7.45) Arterial Blood pCO2 at Patient Temp 33 mmHg (35-46) Arterial Blood pO2 at Patient Temp 63 mmHg (65-108) Arterial Blood HCO3 20 mmol/L (21-28) Arterial Blood Base Excess -4 mmol/L (-3-3) FiO2 24 Glucose (Fingerstick) 185 mg/dL (70-99) White Blood Count 19.0 x10^3/uL (4.0-11.0) Red Blood Count 4.06 x10^6/uL (3.50-5.40) Hemoglobin 11.7 g/dL (12.0-15.5) Hematocrit 35.6 % (36.0-47.0) Mean Corpuscular Volume 88 fL (79-100) Mean Corpuscular Hemoglobin 29 pg (25-35) Mean Corpuscular Hemoglobin Concent 33 g/dL (31-37) Red Cell Distribution Width 18.2 % (11.5-14.5) Platelet Count 46 x10^3/uL (140-400) Neutrophils (%) (Auto) 91 % (31-73) Lymphocytes (%) (Auto) 6 % (24-48) Monocytes (%) (Auto) 3 % (0-9) Eosinophils (%) (Auto) 0 % (0-3) Basophils (%) (Auto) 0 % (0-3) Neutrophils # (Auto) 17.3 x10^3uL (1.8-7.7) Lymphocytes # (Auto) 1.1 x10^3/uL (1.0-4.8) Monocytes # (Auto) 0.5 x10^3/uL (0.0-1.1) Eosinophils # (Auto) 0.0 x10^3/uL (0.0-0.7) Basophils # (Auto) 0.0 x10^3/uL (0.0-0.2) Sodium Level 138 mmol/L (136-145) Potassium Level 4.5 mmol/L (3.5-5.1) Chloride Level 105 mmol/L (98-107) Carbon Dioxide Level 22 mmol/L (21-32) Anion Gap 11 (6-14) Blood Urea Nitrogen 21 mg/dL (7-20) Creatinine 0.9 mg/dL (0.6-1.0) Estimated GFR (Cockcroft-Gault) 61.7 Glucose Level 192 mg/dL (70-99) Calcium Level 8.4 mg/dL (8.5-10.1) Lactic Acid Level 3.4 mmol/L (0.4-2.0) Laboratory Tests Test 03/26/17 15:20 03/26/17 16:05 03/26/17 17:15 03/27/17 01:25 White Blood Count 18.6 x10^3/uL (4.0-11.0) Red Blood Count 4.28 x10^6/uL (3.50-5.40) Hemoglobin 12.4 g/dL (12.0-15.5) Hematocrit 37.5 % (36.0-47.0) Mean Corpuscular Volume 88 fL (79-100) Mean Corpuscular Hemoglobin 29 pg (25-35) Mean Corpuscular Hemoglobin Concent 33 g/dL (31-37) Red Cell Distribution Width 17.6 % (11.5-14.5) Platelet Count 52 x10^3/uL (140-400) Lactic Acid Level 3.3 mmol/L (0.4-2.0) O2 Saturation 92 % (92-99) Arterial Blood pH 7.41 (7.35-7.45) Arterial Blood pCO2 at Patient Temp 33 mmHg (35-46) Arterial Blood pO2 at Patient Temp 63 mmHg (65-108) Arterial Blood HCO3 20 mmol/L (21-28) Arterial Blood Base Excess -4 mmol/L (-3-3) FiO2 24 Glucose (Fingerstick) 185 mg/dL (70-99) Test 03/27/17 05:15 03/27/17 08:16 White Blood Count 19.0 x10^3/uL (4.0-11.0) Red Blood Count 4.06 x10^6/uL (3.50-5.40) Hemoglobin 11.7 g/dL (12.0-15.5) Hematocrit 35.6 % (36.0-47.0) Mean Corpuscular Volume 88 fL (79-100) Mean Corpuscular Hemoglobin 29 pg (25-35) Mean Corpuscular Hemoglobin Concent 33 g/dL (31-37) Red Cell Distribution Width 18.2 % (11.5-14.5) Platelet Count 46 x10^3/uL (140-400) Neutrophils (%) (Auto) 91 % (31-73) Lymphocytes (%) (Auto) 6 % (24-48) Monocytes (%) (Auto) 3 % (0-9) Eosinophils (%) (Auto) 0 % (0-3) Basophils (%) (Auto) 0 % (0-3) Neutrophils # (Auto) 17.3 x10^3uL (1.8-7.7) Lymphocytes # (Auto) 1.1 x10^3/uL (1.0-4.8) Monocytes # (Auto) 0.5 x10^3/uL (0.0-1.1) Eosinophils # (Auto) 0.0 x10^3/uL (0.0-0.7) Basophils # (Auto) 0.0 x10^3/uL (0.0-0.2) Sodium Level 138 mmol/L (136-145) Potassium Level 4.5 mmol/L (3.5-5.1) Chloride Level 105 mmol/L (98-107) Carbon Dioxide Level 22 mmol/L (21-32) Anion Gap 11 (6-14) Blood Urea Nitrogen 21 mg/dL (7-20) Creatinine 0.9 mg/dL (0.6-1.0) Estimated GFR (Cockcroft-Gault) 61.7 Glucose Level 192 mg/dL (70-99) Calcium Level 8.4 mg/dL (8.5-10.1) Lactic Acid Level 3.4 mmol/L (0.4-2.0) Problem List Problems Medical Problems: (1) Abdominal abscess Status: Acute (2) Abdominal pain Status: Acute Assessment/Plan continue NG, bowel rest resp care Problems: DYLON OCHOA APRN Mar 27, 2017 11:56
[2017-03-27] MEDS ORDERED: DIGOXIN IV 500 MCG/2 ML AMPUL. IV ONE (12:00)
[2017-03-27] MEDS: IV NORMAL SALINE 1000ML BAG 1,000 ML IV SCH (12:08)
[2017-03-27] MEDS: FLUCONAZOLE 200MG/100ML PREMIX 100 ML IV SCH (12:09)
[2017-03-27] MEDS: FAMOTIDINE 20 MG/2 ML VIAL IVP SCH (21:51)
[2017-03-27] MEDS: INSULIN DETEMIR 300 UNITS/3 ML INSULN.PEN. SQ SCH (21:55)
[2017-03-28] VITALS (24 sets, daily range): BP systolic 76–114; BP diastolic 34–62
[2017-03-28] MEDS: MEROPENEM IV Push 500 MG VIAL. IVP SCH ×3 (05:24→21:35)
[2017-03-28] MEDS: IV DEXTROSE 5%-LACT RINGERS 1,000 ML IV SCH ×3 (05:24→16:00)
[2017-03-28 06:15] LABS: CALCIUM 8.1 mg/dL (8.5-10.1); CREATININE 0.6 mg/dL (0.6-1.0); GFR 98.5; MAGNESIUM 1.8 mg/dL (1.8-2.4); PHOSPHORUS 2.8 mg/dL (2.6-4.7)
[2017-03-28 06:19] LABS: BASO % 0 % (0-3); EOS % 0 % (0-3); HEMATOCRIT 31.2 % (36.0-47.0); HEMOGLOBIN 10.2 g/dL (12.0-15.5); LYMPH % 9 % (24-48); MEAN CORPUSCULAR HEMOGLOBIN 29 pg (25-35); MEAN CORPUSCULAR HGB CONC 33 g/dL (31-37); MEAN CORPUSCULAR VOLUME 89 fL (79-100); MONO % 3 % (0-9); NEUT % 88 % (31-73); PLATELET COUNT 35 x10^3/uL (140-400); RED BLOOD COUNT 3.52 x10^6/uL (3.50-5.40); RED CELL DISTRIBUTION WIDTH 17.9 % (11.5-14.5); WHITE BLOOD COUNT 11.6 x10^3/uL (4.0-11.0)
--- NOTE | 2017-03-28 07:36 | PDOC ---
Infectious Disease Note Subjective Subjective pt feeling ok, still having sob ROS ROS no n/v/d/pain Vital Sign Vital Signs Vital Signs Date Time Temp Pulse Resp B/P (MAP) Pulse Ox O2 Delivery O2 Flow Rate FiO2 03/28/17 06:00 119 20 84/41 (55) 100 BiPAP/CPAP 03/28/17 04:00 98.6 98.6 03/27/17 16:04 3.0 Physical Exam PHYSICAL EXAM GENERAL: NAD, Alert HEENT: PERRL, OC/OP NECK: Supple, no JVD, no LN LUNGS: Clear HEART: S1S2, no gallop, no murmur ABD: Soft, NT, no organomegaly, no rebound EXT: No edema, no cyanosis,, abd incision with some drainage DIRECTOR [employer] SALES: Alert, oriented x 3, no focal neurologic deficit SKIN: No rash IV: ok Labs Lab Laboratory Tests Test 03/27/17 08:16 03/27/17 12:05 03/27/17 21:54 03/28/17 05:39 Lactic Acid Level 3.4 mmol/L (0.4-2.0) 3.3 mmol/L (0.4-2.0) Glucose (Fingerstick) 135 mg/dL (70-99) White Blood Count 11.6 x10^3/uL (4.0-11.0) Red Blood Count 3.52 x10^6/uL (3.50-5.40) Hemoglobin 10.2 g/dL (12.0-15.5) Hematocrit 31.2 % (36.0-47.0) Mean Corpuscular Volume 89 fL (79-100) Mean Corpuscular Hemoglobin 29 pg (25-35) Mean Corpuscular Hemoglobin Concent 33 g/dL (31-37) Red Cell Distribution Width 17.9 % (11.5-14.5) Platelet Count 35 x10^3/uL (140-400) Neutrophils (%) (Auto) 88 % (31-73) Lymphocytes (%) (Auto) 9 % (24-48) Monocytes (%) (Auto) 3 % (0-9) Eosinophils (%) (Auto) 0 % (0-3) Basophils (%) (Auto) 0 % (0-3) Neutrophils # (Auto) 10.2 x10^3uL (1.8-7.7) Lymphocytes # (Auto) 1.0 x10^3/uL (1.0-4.8) Monocytes # (Auto) 0.4 x10^3/uL (0.0-1.1) Eosinophils # (Auto) 0.0 x10^3/uL (0.0-0.7) Basophils # (Auto) 0.0 x10^3/uL (0.0-0.2) Sodium Level 142 mmol/L (136-145) Potassium Level 4.0 mmol/L (3.5-5.1) Chloride Level 109 mmol/L (98-107) Carbon Dioxide Level 25 mmol/L (21-32) Anion Gap 8 (6-14) Blood Urea Nitrogen 19 mg/dL (7-20) Creatinine 0.6 mg/dL (0.6-1.0) Estimated GFR (Cockcroft-Gault) 98.5 Glucose Level 127 mg/dL (70-99) Calcium Level 8.1 mg/dL (8.5-10.1) Phosphorus Level 2.8 mg/dL (2.6-4.7) Magnesium Level 1.8 mg/dL (1.8-2.4) Micro ct noted Objective Assessment s/p lap converted to open exploration, JAIRO, removal of infected mesh, subtotal colectomy, SBR and hernia repair, 03/24 Leukocytosis, likely reactive, (Dexamethasone pre-op) EC fistula Fever - better Abdominal abscess, measuring 6.4 x 4.9 cm. s/p drain 03/12. Klebsiella ( R to Zosyn, S Cipro/Levo), VRE (R PCN) and PSAE ( R to ticarcillin only otherwise sensitive, S Cipro/Levo) and C tropicalis h/o Strep anginosis and Bacteroides Ventral hernia DM HTN PCN allergy/amox also - hives and swelling Plan Plan of Care Cont /meropenem/Fluconazole and dapto Contact isolation f/u am labs SANDRA RODNEY MD Mar 28, 2017 07:36
[2017-03-28] MEDS: DICLOFENAC SODIUM 25 MG TABLET.DR PO SCH (09:00)
[2017-03-28] MEDS: ASPIRIN CHEWABLE 81 MG TABLET. PO SCH (09:00)
[2017-03-28] MEDS: METOPROLOL SUCC 24HR ER 25 MG TAB.ER.24H. PO SCH (09:00)
[2017-03-28] MEDS: FERROUS SULFATE 325 MG TABLET. PO SCH (09:00)
--- NOTE | 2017-03-28 09:03 | PDOC ---
SUBJECTIVE Subjective NG tube out last night. Feeling a little better this AM. On Bipap, breathing comfortably. Off Levophed x 24 hours. BP still soft, but improved OBJECTIVE Objective Reviewed. Vital Signs Vital Signs Date Time Temp Pulse Resp B/P (MAP) Pulse Ox O2 Delivery O2 Flow Rate FiO2 03/28/17 08:00 3.0 03/28/17 08:00 101 26 87/46 (60) 99 BiPAP/CPAP 03/28/17 08:00 Bi-pap 03/28/17 07:00 99.1 103 24 76/36 (49) 99 BiPAP/CPAP 99.1 03/28/17 06:00 119 20 84/41 (55) 100 BiPAP/CPAP 03/28/17 05:37 100 BiPAP/CPAP 03/28/17 05:00 107 26 104/49 (67) 100 BiPAP/CPAP 03/28/17 04:00 98.6 97 22 103/56 (72) 100 BiPAP/CPAP 98.6 03/28/17 04:00 Bi-pap 03/28/17 03:51 100 BiPAP/CPAP 03/28/17 03:00 107 22 101/41 (61) 100 BiPAP/CPAP 03/28/17 02:00 103 23 86/62 (70) 100 BiPAP/CPAP 03/28/17 01:42 100 BiPAP/CPAP 03/28/17 01:00 108 20 82/56 (65) 98 BiPAP/CPAP 03/28/17 00:01 Bi-pap 03/28/17 00:00 98.4 112 27 90/48 (62) 100 BiPAP/CPAP 98.4 03/27/17 23:28 99 BiPAP/CPAP 03/27/17 23:00 123 30 88/48 (61) 99 BiPAP/CPAP 03/27/17 22:00 118 19 97/51 (66) 99 BiPAP/CPAP 03/27/17 21:00 116 23 107/55 (72) 99 BiPAP/CPAP 03/27/17 20:00 119 19 106/60 (75) 99 BiPAP/CPAP 03/27/17 20:00 Bi-pap 03/27/17 19:35 99 BiPAP/CPAP 03/27/17 19:00 98.6 116 24 94/67 (76) 98 BiPAP/CPAP 98.6 03/27/17 18:00 118 21 85/47 (60) 97 BiPAP/CPAP 03/27/17 17:00 119 30 86/50 (62) 100 BiPAP/CPAP 03/27/17 16:04 116 30 113/76 (88) 100 Nasal Cannula 3.0 03/27/17 15:58 Nasal Cannula 3.0 03/27/17 15:00 116 26 116/54 (74) 98 Nasal Cannula 3.0 03/27/17 14:00 118 28 91/58 (69) 98 Nasal Cannula 3.0 03/27/17 13:00 98.3 132 28 95/48 (64) 99 Nasal Cannula 4.0 98.3 03/27/17 12:09 119 100/62 03/27/17 12:00 1.0 03/27/17 12:00 Nasal Cannula 3.0 03/27/17 12:00 117 29 100/50 (67) 100 Nasal Cannula 4.0 03/27/17 11:00 119 30 82/52 (62) 100 Nasal Cannula 2.0 03/27/17 10:00 127 24 110/56 (74) 98 BiPAP/CPAP I & O Intake and Output 03/28/17 07:00 Intake Total 4493 ml Output Total 1154 ml Balance 3339 ml Intake Oral 120 ml IV Total 4373 ml Output Urine Total 1064 ml Gastric Drainage Total 70 ml Drainage Total 20 ml PHYSICAL EXAM Physical Exam NAD, alert, oriented, bipap in place RRR, tachycardia Fine crackles in bilateral bases, otherwise clear Abd binder in place No LE edema, tenderness, redness Cooperative, calm ASSESSMENT/PLAN Assessment/Plan 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 s/p drain 03/12. Klebsiella ( R to Zosyn, S Cipro/Levo), VRE (R PCN) and PSAE ( R to ticarcillin only otherwise sensitive, S Cipro/Levo) and C tropicalis, h/o Strep anginosis and Bacteroides Ventral hernia DM HTN - currently hypotensive Acute on chronic respiratory failure High clinical suspicion for PE Tachycardia Thrombocytopenia Lactic acidosis Pulm, surgery, ID, Cards following Levophed to maintain MAP 65 or > if needed, currently off Levophed CT not done for PE protocol due to communication error; cont Lovenox 1g/kg Q12H due to clinical suspicion; will repeat CTA prior in a few days to confirm PE present BiPap PRN Cont meropenem/Fluconazole per ID, Zyvox stopped due to thrombocytopenia, switched to daptomycin Added Levemir 5U QHS for hyperglycemia. Sliding scale insulin is not recommended per Beer's criteria. Monitor BS. Problems: COMMENT Lab Laboratory Tests Test 03/27/17 12:05 03/27/17 21:54 03/28/17 05:39 Lactic Acid Level 3.3 mmol/L (0.4-2.0) Glucose (Fingerstick) 135 mg/dL (70-99) White Blood Count 11.6 x10^3/uL (4.0-11.0) Red Blood Count 3.52 x10^6/uL (3.50-5.40) Hemoglobin 10.2 g/dL (12.0-15.5) Hematocrit 31.2 % (36.0-47.0) Mean Corpuscular Volume 89 fL (79-100) Mean Corpuscular Hemoglobin 29 pg (25-35) Mean Corpuscular Hemoglobin Concent 33 g/dL (31-37) Red Cell Distribution Width 17.9 % (11.5-14.5) Platelet Count 35 x10^3/uL (140-400) Neutrophils (%) (Auto) 88 % (31-73) Lymphocytes (%) (Auto) 9 % (24-48) Monocytes (%) (Auto) 3 % (0-9) Eosinophils (%) (Auto) 0 % (0-3) Basophils (%) (Auto) 0 % (0-3) Neutrophils # (Auto) 10.2 x10^3uL (1.8-7.7) Lymphocytes # (Auto) 1.0 x10^3/uL (1.0-4.8) Monocytes # (Auto) 0.4 x10^3/uL (0.0-1.1) Eosinophils # (Auto) 0.0 x10^3/uL (0.0-0.7) Basophils # (Auto) 0.0 x10^3/uL (0.0-0.2) Sodium Level 142 mmol/L (136-145) Potassium Level 4.0 mmol/L (3.5-5.1) Chloride Level 109 mmol/L (98-107) Carbon Dioxide Level 25 mmol/L (21-32) Anion Gap 8 (6-14) Blood Urea Nitrogen 19 mg/dL (7-20) Creatinine 0.6 mg/dL (0.6-1.0) Estimated GFR (Cockcroft-Gault) 98.5 Glucose Level 127 mg/dL (70-99) Calcium Level 8.1 mg/dL (8.5-10.1) Phosphorus Level 2.8 mg/dL (2.6-4.7) Magnesium Level 1.8 mg/dL (1.8-2.4) STEPHON BLAND MD Mar 28, 2017 09:03
[2017-03-28] MEDS: ALBUMIN HUMAN 25% 100 ML IV SCH ×2 (09:16→16:00)
[2017-03-28] MEDS: PANTOPRAZOLE IV PUSH 40 MG VIAL. IVP SCH (09:16)
[2017-03-28] MEDS: NORMAL SALINE IV SCH (09:17)
[2017-03-28] MEDS: DAPTOMYCIN IV SCH (09:17)
[2017-03-28] MEDS: FUROSEMIDE 20 MG/2 ML VIAL. IVP SCH (10:47)
[2017-03-28] MEDS: FLUCONAZOLE 200MG/100ML PREMIX 100 ML IV SCH (11:43)
--- NOTE | 2017-03-28 12:54 | PDOC ---
SURGICAL PROGRESS NOTE Subjective Pt feels a little better today, no N/V with NGT out Vital Signs Vital Signs Date Time Temp Pulse Resp B/P (MAP) Pulse Ox O2 Delivery O2 Flow Rate FiO2 03/28/17 12:19 Bi-pap 03/28/17 12:00 3.0 03/28/17 12:00 110 21 103/60 (74) 98 03/28/17 07:00 99.1 99.1 I&O Intake and Output 03/28/17 06:59 Intake Total 4493 ml Output Total 1154 ml Balance 3339 ml Intake Oral 120 ml IV Total 4373 ml Output Urine Total 1064 ml Gastric Drainage Total 70 ml Drainage Total 20 ml General: Alert, Oriented X3, Cooperative, mild distress Abdomen: Soft, No tenderness, Other (dressing intact, ostomy pink under slough) Labs Laboratory Tests Test 03/26/17 15:20 03/26/17 16:05 03/26/17 17:15 03/27/17 01:25 White Blood Count 18.6 x10^3/uL (4.0-11.0) Red Blood Count 4.28 x10^6/uL (3.50-5.40) Hemoglobin 12.4 g/dL (12.0-15.5) Hematocrit 37.5 % (36.0-47.0) Mean Corpuscular Volume 88 fL (79-100) Mean Corpuscular Hemoglobin 29 pg (25-35) Mean Corpuscular Hemoglobin Concent 33 g/dL (31-37) Red Cell Distribution Width 17.6 % (11.5-14.5) Platelet Count 52 x10^3/uL (140-400) Lactic Acid Level 3.3 mmol/L (0.4-2.0) O2 Saturation 92 % (92-99) Arterial Blood pH 7.41 (7.35-7.45) Arterial Blood pCO2 at Patient Temp 33 mmHg (35-46) Arterial Blood pO2 at Patient Temp 63 mmHg (65-108) Arterial Blood HCO3 20 mmol/L (21-28) Arterial Blood Base Excess -4 mmol/L (-3-3) FiO2 24 Glucose (Fingerstick) 185 mg/dL (70-99) Test 03/27/17 05:15 03/27/17 08:16 03/27/17 12:05 03/27/17 21:54 White Blood Count 19.0 x10^3/uL (4.0-11.0) Red Blood Count 4.06 x10^6/uL (3.50-5.40) Hemoglobin 11.7 g/dL (12.0-15.5) Hematocrit 35.6 % (36.0-47.0) Mean Corpuscular Volume 88 fL (79-100) Mean Corpuscular Hemoglobin 29 pg (25-35) Mean Corpuscular Hemoglobin Concent 33 g/dL (31-37) Red Cell Distribution Width 18.2 % (11.5-14.5) Platelet Count 46 x10^3/uL (140-400) Neutrophils (%) (Auto) 91 % (31-73) Lymphocytes (%) (Auto) 6 % (24-48) Monocytes (%) (Auto) 3 % (0-9) Eosinophils (%) (Auto) 0 % (0-3) Basophils (%) (Auto) 0 % (0-3) Neutrophils # (Auto) 17.3 x10^3uL (1.8-7.7) Lymphocytes # (Auto) 1.1 x10^3/uL (1.0-4.8) Monocytes # (Auto) 0.5 x10^3/uL (0.0-1.1) Eosinophils # (Auto) 0.0 x10^3/uL (0.0-0.7) Basophils # (Auto) 0.0 x10^3/uL (0.0-0.2) Sodium Level 138 mmol/L (136-145) Potassium Level 4.5 mmol/L (3.5-5.1) Chloride Level 105 mmol/L (98-107) Carbon Dioxide Level 22 mmol/L (21-32) Anion Gap 11 (6-14) Blood Urea Nitrogen 21 mg/dL (7-20) Creatinine 0.9 mg/dL (0.6-1.0) Estimated GFR (Cockcroft-Gault) 61.7 Glucose Level 192 mg/dL (70-99) Calcium Level 8.4 mg/dL (8.5-10.1) Lactic Acid Level 3.4 mmol/L (0.4-2.0) 3.3 mmol/L (0.4-2.0) Glucose (Fingerstick) 135 mg/dL (70-99) Test 03/28/17 05:39 White Blood Count 11.6 x10^3/uL (4.0-11.0) Red Blood Count 3.52 x10^6/uL (3.50-5.40) Hemoglobin 10.2 g/dL (12.0-15.5) Hematocrit 31.2 % (36.0-47.0) Mean Corpuscular Volume 89 fL (79-100) Mean Corpuscular Hemoglobin 29 pg (25-35) Mean Corpuscular Hemoglobin Concent 33 g/dL (31-37) Red Cell Distribution Width 17.9 % (11.5-14.5) Platelet Count 35 x10^3/uL (140-400) Neutrophils (%) (Auto) 88 % (31-73) Lymphocytes (%) (Auto) 9 % (24-48) Monocytes (%) (Auto) 3 % (0-9) Eosinophils (%) (Auto) 0 % (0-3) Basophils (%) (Auto) 0 % (0-3) Neutrophils # (Auto) 10.2 x10^3uL (1.8-7.7) Lymphocytes # (Auto) 1.0 x10^3/uL (1.0-4.8) Monocytes # (Auto) 0.4 x10^3/uL (0.0-1.1) Eosinophils # (Auto) 0.0 x10^3/uL (0.0-0.7) Basophils # (Auto) 0.0 x10^3/uL (0.0-0.2) Sodium Level 142 mmol/L (136-145) Potassium Level 4.0 mmol/L (3.5-5.1) Chloride Level 109 mmol/L (98-107) Carbon Dioxide Level 25 mmol/L (21-32) Anion Gap 8 (6-14) Blood Urea Nitrogen 19 mg/dL (7-20) Creatinine 0.6 mg/dL (0.6-1.0) Estimated GFR (Cockcroft-Gault) 98.5 Glucose Level 127 mg/dL (70-99) Calcium Level 8.1 mg/dL (8.5-10.1) Phosphorus Level 2.8 mg/dL (2.6-4.7) Magnesium Level 1.8 mg/dL (1.8-2.4) Laboratory Tests Test 03/27/17 21:54 03/28/17 05:39 Glucose (Fingerstick) 135 mg/dL (70-99) White Blood Count 11.6 x10^3/uL (4.0-11.0) Red Blood Count 3.52 x10^6/uL (3.50-5.40) Hemoglobin 10.2 g/dL (12.0-15.5) Hematocrit 31.2 % (36.0-47.0) Mean Corpuscular Volume 89 fL (79-100) Mean Corpuscular Hemoglobin 29 pg (25-35) Mean Corpuscular Hemoglobin Concent 33 g/dL (31-37) Red Cell Distribution Width 17.9 % (11.5-14.5) Platelet Count 35 x10^3/uL (140-400) Neutrophils (%) (Auto) 88 % (31-73) Lymphocytes (%) (Auto) 9 % (24-48) Monocytes (%) (Auto) 3 % (0-9) Eosinophils (%) (Auto) 0 % (0-3) Basophils (%) (Auto) 0 % (0-3) Neutrophils # (Auto) 10.2 x10^3uL (1.8-7.7) Lymphocytes # (Auto) 1.0 x10^3/uL (1.0-4.8) Monocytes # (Auto) 0.4 x10^3/uL (0.0-1.1) Eosinophils # (Auto) 0.0 x10^3/uL (0.0-0.7) Basophils # (Auto) 0.0 x10^3/uL (0.0-0.2) Sodium Level 142 mmol/L (136-145) Potassium Level 4.0 mmol/L (3.5-5.1) Chloride Level 109 mmol/L (98-107) Carbon Dioxide Level 25 mmol/L (21-32) Anion Gap 8 (6-14) Blood Urea Nitrogen 19 mg/dL (7-20) Creatinine 0.6 mg/dL (0.6-1.0) Estimated GFR (Cockcroft-Gault) 98.5 Glucose Level 127 mg/dL (70-99) Calcium Level 8.1 mg/dL (8.5-10.1) Phosphorus Level 2.8 mg/dL (2.6-4.7) Magnesium Level 1.8 mg/dL (1.8-2.4) Problem List Problems Medical Problems: (1) Abdominal abscess Status: Acute (2) Abdominal pain Status: Acute Assessment/Plan s/p xlap start clears, cont supportive care d/w pt and pt's family Problems: LI HAMMOND MD Mar 28, 2017 12:54
[2017-03-28] MEDS ORDERED: IOHEXOL 300 MG/ML 100ML VIAL. IV ONE (16:00)
[2017-03-28] MEDS: LORazepam 1 MG TABLET PO PRN (16:00)
[2017-03-28] MEDS ORDERED: CONTRAST GIVEN MC PRN (16:15)
--- NOTE | 2017-03-28 17:10 | RAD ---
CTA scan of the Chest with Contrast (Pulmonary Embolism protocol) 03/28/2017 Clinical History: Shortness of breath. Respiratory failure. Technique: After the intravenous administration of 75 cc of Omnipaque 300, contiguous, 0.625 mm axial sections were obtained through the chest. 2 mm axial and 3D MIP coronal and sagittal reconstructed images were obtained. Findings: Comparison is made to the patient's CT scan of the chest dated 03/26/2017. No filling defect is seen within the major branches of either pulmonary artery. There is no CT evidence of pulmonary embolism. The heart is mild to moderately enlarged. Atherosclerotic calcification thoracic aorta is seen. The thoracic aorta is tortuous but tapers normally. Extensive coronary artery calcifications are noted. There are small bilateral pleural effusions. Bilateral lower lobe atelectasis and/or infiltrate is seen. These findings are not significantly changed. No pneumothorax is seen. Impression: There is no CT evidence of pulmonary embolism. Electronically signed by: Sudhir Kaba MD (03/28/2017 5:06 PM) [facility]
[2017-03-28] MEDS: IV NORMAL SALINE 1000ML BAG 1,000 ML IV SCH (20:43)
[2017-03-28] MEDS: FAMOTIDINE 20 MG/2 ML VIAL IVP SCH (21:35)
[2017-03-28] MEDS: INSULIN DETEMIR 300 UNITS/3 ML INSULN.PEN. SQ SCH (21:41)
[2017-03-29] VITALS (24 sets, daily range): BP systolic 87–124; BP diastolic 44–66
[2017-03-29] MEDS: ALBUMIN HUMAN 25% 100 ML IV SCH (00:42)
[2017-03-29] MEDS: IV DEXTROSE 5%-LACT RINGERS 1,000 ML IV SCH ×4 (00:43→22:07)
[2017-03-29] MEDS: MEROPENEM IV Push 500 MG VIAL. IVP SCH ×3 (05:44→22:07)
[2017-03-29 06:14] LABS: CALCIUM 8.4 mg/dL (8.5-10.1); CREATININE 0.7 mg/dL (0.6-1.0); GFR 82.5; POTASSIUM 3.5 mmol/L (3.5-5.1)
[2017-03-29 06:15] LABS: BASO % 0 % (0-3); EOS % 0 % (0-3); HEMATOCRIT 26.6 % (36.0-47.0); HEMOGLOBIN 8.7 g/dL (12.0-15.5); LYMPH # 0.8 x10^3/uL (1.0-4.8); LYMPH % 16 % (24-48); MEAN CORPUSCULAR HEMOGLOBIN 29 pg (25-35); MEAN CORPUSCULAR HGB CONC 33 g/dL (31-37); MEAN CORPUSCULAR VOLUME 88 fL (79-100); MONO % 6 % (0-9); NEUT % 78 % (31-73); RED BLOOD COUNT 3.02 x10^6/uL (3.50-5.40); RED CELL DISTRIBUTION WIDTH 17.5 % (11.5-14.5); WHITE BLOOD COUNT 4.9 x10^3/uL (4.0-11.0)
[2017-03-29 07:03] LABS: PLT ESTIMATE DECREASED (ADEQUATE)
[2017-03-29 07:04] LABS: ANISOCYTOSIS PRESENT
[2017-03-29 07:05] LABS: PLATELET COUNT 18 x10^3/uL (140-400)
[2017-03-29] MEDS: PANTOPRAZOLE IV PUSH 40 MG VIAL. IVP SCH (07:30)
--- NOTE | 2017-03-29 07:31 | PDOC ---
Infectious Disease Note Subjective Subjective pt feeling ok, still having sob ROS ROS GEN: Denies fevers, chills, sweats HEENT: Denies blurred vision, sore throat CV: Denies chest pain GI: Denies n/v/d NEURO: Denies confusion, dizziness MSK: Denies weakness, joint pain/swelling Vital Sign Vital Signs Vital Signs Date Time Temp Pulse Resp B/P (MAP) Pulse Ox O2 Delivery O2 Flow Rate FiO2 03/29/17 07:18 99 BiPAP/CPAP 03/29/17 06:00 118 25 104/54 (71) 03/29/17 04:00 98.3 98.3 03/29/17 04:00 3.0 Physical Exam PHYSICAL EXAM GENERAL: , Alert on bipap HEENT: PERRL, OC/OP NECK: Supple, no JVD, no LN LUNGS: Clear HEART: S1S2, no gallop, no murmur ABD: Soft, NT, no organomegaly, no rebound EXT: No edema, no cyanosis 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, 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 x 3, no focal neurologic deficit SKIN: No rash IV: ok Labs Lab Laboratory Tests Test 03/28/17 21:39 03/29/17 05:50 Glucose (Fingerstick) 139 mg/dL (70-99) White Blood Count 4.9 x10^3/uL (4.0-11.0) Red Blood Count 3.02 x10^6/uL (3.50-5.40) Hemoglobin 8.7 g/dL (12.0-15.5) Hematocrit 26.6 % (36.0-47.0) Mean Corpuscular Volume 88 fL (79-100) Mean Corpuscular Hemoglobin 29 pg (25-35) Mean Corpuscular Hemoglobin Concent 33 g/dL (31-37) Red Cell Distribution Width 17.5 % (11.5-14.5) Platelet Count 18 x10^3/uL (140-400) Neutrophils (%) (Auto) 78 % (31-73) Lymphocytes (%) (Auto) 16 % (24-48) Monocytes (%) (Auto) 6 % (0-9) Eosinophils (%) (Auto) 0 % (0-3) Basophils (%) (Auto) 0 % (0-3) Neutrophils # (Auto) 3.8 x10^3uL (1.8-7.7) Lymphocytes # (Auto) 0.8 x10^3/uL (1.0-4.8) Monocytes # (Auto) 0.3 x10^3/uL (0.0-1.1) Eosinophils # (Auto) 0.0 x10^3/uL (0.0-0.7) Basophils # (Auto) 0.0 x10^3/uL (0.0-0.2) Platelet Estimate Decreased (ADEQUATE) Giant Platelets Present Anisocytosis Present Sodium Level 144 mmol/L (136-145) Potassium Level 3.5 mmol/L (3.5-5.1) Chloride Level 108 mmol/L (98-107) Carbon Dioxide Level 27 mmol/L (21-32) Anion Gap 9 (6-14) Blood Urea Nitrogen 13 mg/dL (7-20) Creatinine 0.7 mg/dL (0.6-1.0) Estimated GFR (Cockcroft-Gault) 82.5 Glucose Level 145 mg/dL (70-99) Lactic Acid Level 1.7 mmol/L (0.4-2.0) Calcium Level 8.4 mg/dL (8.5-10.1) Micro ct noted Objective Assessment s/p lap converted to open exploration, JAIRO, removal of infected mesh, subtotal colectomy, SBR and hernia repair, 03/24 Leukocytosis, likely reactive, (Dexamethasone pre-op) EC fistula Fever - better Abdominal abscess, measuring 6.4 x 4.9 cm. s/p drain 03/12. Klebsiella ( R to Zosyn, S Cipro/Levo), VRE (R PCN) and PSAE ( R to ticarcillin only otherwise sensitive, S Cipro/Levo) and C tropicalis h/o Strep anginosis and Bacteroides Ventral hernia DM HTN PCN allergy/amox also - hives and swelling Plan Plan of Care Cont /meropenem/Fluconazole and dapto Contact isolation f/u am labs SANDRA RODNEY MD Mar 29, 2017 07:31
[2017-03-29] MEDS: DICLOFENAC SODIUM 25 MG TABLET.DR PO SCH (07:33)
[2017-03-29] MEDS: ASPIRIN CHEWABLE 81 MG TABLET. PO SCH (07:33)
[2017-03-29] MEDS: FERROUS SULFATE 325 MG TABLET. PO SCH (07:33)
[2017-03-29] MEDS: METOPROLOL SUCC 24HR ER 25 MG TAB.ER.24H. PO SCH (07:33)
--- NOTE | 2017-03-29 09:38 | PDOC ---
SURGICAL PROGRESS NOTE Subjective Doing ok complains of abdominal soreness. No nausea. Vital Signs Vital Signs Date Time Temp Pulse Resp B/P (MAP) Pulse Ox O2 Delivery O2 Flow Rate FiO2 03/29/17 07:18 99 BiPAP/CPAP 03/29/17 06:00 118 25 104/54 (71) 03/29/17 04:00 98.3 98.3 03/29/17 04:00 3.0 I&O Intake and Output 03/29/17 07:00 Intake Total 3494 ml Output Total 1407 ml Balance 2087 ml Intake Oral 360 ml IV Total 3134 ml Output Urine Total 1362 ml Gastric Drainage Total 30 ml Drainage Total 15 ml PATIENT HAS A HOPPER: Yes General: Alert, Oriented X3, Cooperative, mild distress, Other (CPAP on) Lungs: Normal air movement Abdomen: Normal bowel sounds, Soft, Other (incisional tenderness mild, ostomy pink viable minimal output) Labs Laboratory Tests Test 03/27/17 12:05 03/27/17 21:54 03/28/17 05:39 03/28/17 21:39 Lactic Acid Level 3.3 mmol/L (0.4-2.0) Glucose (Fingerstick) 135 mg/dL (70-99) 139 mg/dL (70-99) White Blood Count 11.6 x10^3/uL (4.0-11.0) Red Blood Count 3.52 x10^6/uL (3.50-5.40) Hemoglobin 10.2 g/dL (12.0-15.5) Hematocrit 31.2 % (36.0-47.0) Mean Corpuscular Volume 89 fL (79-100) Mean Corpuscular Hemoglobin 29 pg (25-35) Mean Corpuscular Hemoglobin Concent 33 g/dL (31-37) Red Cell Distribution Width 17.9 % (11.5-14.5) Platelet Count 35 x10^3/uL (140-400) Neutrophils (%) (Auto) 88 % (31-73) Lymphocytes (%) (Auto) 9 % (24-48) Monocytes (%) (Auto) 3 % (0-9) Eosinophils (%) (Auto) 0 % (0-3) Basophils (%) (Auto) 0 % (0-3) Neutrophils # (Auto) 10.2 x10^3uL (1.8-7.7) Lymphocytes # (Auto) 1.0 x10^3/uL (1.0-4.8) Monocytes # (Auto) 0.4 x10^3/uL (0.0-1.1) Eosinophils # (Auto) 0.0 x10^3/uL (0.0-0.7) Basophils # (Auto) 0.0 x10^3/uL (0.0-0.2) Sodium Level 142 mmol/L (136-145) Potassium Level 4.0 mmol/L (3.5-5.1) Chloride Level 109 mmol/L (98-107) Carbon Dioxide Level 25 mmol/L (21-32) Anion Gap 8 (6-14) Blood Urea Nitrogen 19 mg/dL (7-20) Creatinine 0.6 mg/dL (0.6-1.0) Estimated GFR (Cockcroft-Gault) 98.5 Glucose Level 127 mg/dL (70-99) Calcium Level 8.1 mg/dL (8.5-10.1) Phosphorus Level 2.8 mg/dL (2.6-4.7) Magnesium Level 1.8 mg/dL (1.8-2.4) Test 03/29/17 05:50 White Blood Count 4.9 x10^3/uL (4.0-11.0) Red Blood Count 3.02 x10^6/uL (3.50-5.40) Hemoglobin 8.7 g/dL (12.0-15.5) Hematocrit 26.6 % (36.0-47.0) Mean Corpuscular Volume 88 fL (79-100) Mean Corpuscular Hemoglobin 29 pg (25-35) Mean Corpuscular Hemoglobin Concent 33 g/dL (31-37) Red Cell Distribution Width 17.5 % (11.5-14.5) Platelet Count 18 x10^3/uL (140-400) Neutrophils (%) (Auto) 78 % (31-73) Lymphocytes (%) (Auto) 16 % (24-48) Monocytes (%) (Auto) 6 % (0-9) Eosinophils (%) (Auto) 0 % (0-3) Basophils (%) (Auto) 0 % (0-3) Neutrophils # (Auto) 3.8 x10^3uL (1.8-7.7) Lymphocytes # (Auto) 0.8 x10^3/uL (1.0-4.8) Monocytes # (Auto) 0.3 x10^3/uL (0.0-1.1) Eosinophils # (Auto) 0.0 x10^3/uL (0.0-0.7) Basophils # (Auto) 0.0 x10^3/uL (0.0-0.2) Platelet Estimate Decreased (ADEQUATE) Giant Platelets Present Anisocytosis Present Sodium Level 144 mmol/L (136-145) Potassium Level 3.5 mmol/L (3.5-5.1) Chloride Level 108 mmol/L (98-107) Carbon Dioxide Level 27 mmol/L (21-32) Anion Gap 9 (6-14) Blood Urea Nitrogen 13 mg/dL (7-20) Creatinine 0.7 mg/dL (0.6-1.0) Estimated GFR (Cockcroft-Gault) 82.5 Glucose Level 145 mg/dL (70-99) Lactic Acid Level 1.7 mmol/L (0.4-2.0) Calcium Level 8.4 mg/dL (8.5-10.1) Laboratory Tests Test 03/28/17 21:39 03/29/17 05:50 Glucose (Fingerstick) 139 mg/dL (70-99) White Blood Count 4.9 x10^3/uL (4.0-11.0) Red Blood Count 3.02 x10^6/uL (3.50-5.40) Hemoglobin 8.7 g/dL (12.0-15.5) Hematocrit 26.6 % (36.0-47.0) Mean Corpuscular Volume 88 fL (79-100) Mean Corpuscular Hemoglobin 29 pg (25-35) Mean Corpuscular Hemoglobin Concent 33 g/dL (31-37) Red Cell Distribution Width 17.5 % (11.5-14.5) Platelet Count 18 x10^3/uL (140-400) Neutrophils (%) (Auto) 78 % (31-73) Lymphocytes (%) (Auto) 16 % (24-48) Monocytes (%) (Auto) 6 % (0-9) Eosinophils (%) (Auto) 0 % (0-3) Basophils (%) (Auto) 0 % (0-3) Neutrophils # (Auto) 3.8 x10^3uL (1.8-7.7) Lymphocytes # (Auto) 0.8 x10^3/uL (1.0-4.8) Monocytes # (Auto) 0.3 x10^3/uL (0.0-1.1) Eosinophils # (Auto) 0.0 x10^3/uL (0.0-0.7) Basophils # (Auto) 0.0 x10^3/uL (0.0-0.2) Platelet Estimate Decreased (ADEQUATE) Giant Platelets Present Anisocytosis Present Sodium Level 144 mmol/L (136-145) Potassium Level 3.5 mmol/L (3.5-5.1) Chloride Level 108 mmol/L (98-107) Carbon Dioxide Level 27 mmol/L (21-32) Anion Gap 9 (6-14) Blood Urea Nitrogen 13 mg/dL (7-20) Creatinine 0.7 mg/dL (0.6-1.0) Estimated GFR (Cockcroft-Gault) 82.5 Glucose Level 145 mg/dL (70-99) Lactic Acid Level 1.7 mmol/L (0.4-2.0) Calcium Level 8.4 mg/dL (8.5-10.1) Problem List Problems Medical Problems: (1) Abdominal abscess Status: Acute (2) Abdominal pain Status: Acute Assessment/Plan S/P Xlap POD#2 Stable, improving bowel function Thrombocytopenia consult hematology Start po meds. Problems: MURIEL TALBOT MD Mar 29, 2017 09:38
[2017-03-29] MEDS: DAPTOMYCIN IV SCH (10:16)
[2017-03-29] MEDS: LORazepam 1 MG TABLET PO PRN (10:16)
[2017-03-29] MEDS: fentaNYL PF VIAL 100 MCG/2 ML VIAL IV PRN ×2 (10:16→19:32)
[2017-03-29] MEDS: NORMAL SALINE IV SCH (10:16)
[2017-03-29] MEDS: FUROSEMIDE 20 MG/2 ML VIAL. IVP SCH (10:16)
--- NOTE | 2017-03-29 10:58 | PDOC ---
Provider Note Provider Note sleeping on bipap- fair output, vss- plateltes lower 18K- ,off zyvox 2 days as likley source- cont same MILENA MCMILLAN MD Mar 29, 2017 10:58
[2017-03-29] MEDS: FLUCONAZOLE 200MG/100ML PREMIX 100 ML IV SCH (11:52)
--- NOTE | 2017-03-29 15:34 | PDOC ---
PULMONARY PROGRESS NOTES Subjective PT FEELS BETTER LESS SOA NO CHEST PAIN Vitals Vital Signs Date Time Temp Pulse Resp B/P (MAP) Pulse Ox O2 Delivery O2 Flow Rate FiO2 03/29/17 15:17 100 BiPAP/CPAP 03/29/17 10:46 3.0 03/29/17 06:00 118 25 104/54 (71) 03/29/17 04:00 98.3 98.3 General: Alert Lungs: Crackles Cardiovascular: S1, S2 Abdomen: Soft, Non-tender Neuro Exam: Alert Extremities: No Edema Skin: Warm Labs Laboratory Tests Test 03/27/17 21:54 03/28/17 05:39 03/28/17 21:39 03/29/17 05:50 Glucose (Fingerstick) 135 mg/dL (70-99) 139 mg/dL (70-99) White Blood Count 11.6 x10^3/uL (4.0-11.0) 4.9 x10^3/uL (4.0-11.0) Red Blood Count 3.52 x10^6/uL (3.50-5.40) 3.02 x10^6/uL (3.50-5.40) Hemoglobin 10.2 g/dL (12.0-15.5) 8.7 g/dL (12.0-15.5) Hematocrit 31.2 % (36.0-47.0) 26.6 % (36.0-47.0) Mean Corpuscular Volume 89 fL (79-100) 88 fL (79-100) Mean Corpuscular Hemoglobin 29 pg (25-35) 29 pg (25-35) Mean Corpuscular Hemoglobin Concent 33 g/dL (31-37) 33 g/dL (31-37) Red Cell Distribution Width 17.9 % (11.5-14.5) 17.5 % (11.5-14.5) Platelet Count 35 x10^3/uL (140-400) 18 x10^3/uL (140-400) Neutrophils (%) (Auto) 88 % (31-73) 78 % (31-73) Lymphocytes (%) (Auto) 9 % (24-48) 16 % (24-48) Monocytes (%) (Auto) 3 % (0-9) 6 % (0-9) Eosinophils (%) (Auto) 0 % (0-3) 0 % (0-3) Basophils (%) (Auto) 0 % (0-3) 0 % (0-3) Neutrophils # (Auto) 10.2 x10^3uL (1.8-7.7) 3.8 x10^3uL (1.8-7.7) Lymphocytes # (Auto) 1.0 x10^3/uL (1.0-4.8) 0.8 x10^3/uL (1.0-4.8) Monocytes # (Auto) 0.4 x10^3/uL (0.0-1.1) 0.3 x10^3/uL (0.0-1.1) Eosinophils # (Auto) 0.0 x10^3/uL (0.0-0.7) 0.0 x10^3/uL (0.0-0.7) Basophils # (Auto) 0.0 x10^3/uL (0.0-0.2) 0.0 x10^3/uL (0.0-0.2) Sodium Level 142 mmol/L (136-145) 144 mmol/L (136-145) Potassium Level 4.0 mmol/L (3.5-5.1) 3.5 mmol/L (3.5-5.1) Chloride Level 109 mmol/L (98-107) 108 mmol/L (98-107) Carbon Dioxide Level 25 mmol/L (21-32) 27 mmol/L (21-32) Anion Gap 8 (6-14) 9 (6-14) Blood Urea Nitrogen 19 mg/dL (7-20) 13 mg/dL (7-20) Creatinine 0.6 mg/dL (0.6-1.0) 0.7 mg/dL (0.6-1.0) Estimated GFR (Cockcroft-Gault) 98.5 82.5 Glucose Level 127 mg/dL (70-99) 145 mg/dL (70-99) Calcium Level 8.1 mg/dL (8.5-10.1) 8.4 mg/dL (8.5-10.1) Phosphorus Level 2.8 mg/dL (2.6-4.7) Magnesium Level 1.8 mg/dL (1.8-2.4) Platelet Estimate Decreased (ADEQUATE) Giant Platelets Present Anisocytosis Present Lactic Acid Level 1.7 mmol/L (0.4-2.0) Laboratory Tests Test 03/28/17 21:39 03/29/17 05:50 Glucose (Fingerstick) 139 mg/dL (70-99) White Blood Count 4.9 x10^3/uL (4.0-11.0) Red Blood Count 3.02 x10^6/uL (3.50-5.40) Hemoglobin 8.7 g/dL (12.0-15.5) Hematocrit 26.6 % (36.0-47.0) Mean Corpuscular Volume 88 fL (79-100) Mean Corpuscular Hemoglobin 29 pg (25-35) Mean Corpuscular Hemoglobin Concent 33 g/dL (31-37) Red Cell Distribution Width 17.5 % (11.5-14.5) Platelet Count 18 x10^3/uL (140-400) Neutrophils (%) (Auto) 78 % (31-73) Lymphocytes (%) (Auto) 16 % (24-48) Monocytes (%) (Auto) 6 % (0-9) Eosinophils (%) (Auto) 0 % (0-3) Basophils (%) (Auto) 0 % (0-3) Neutrophils # (Auto) 3.8 x10^3uL (1.8-7.7) Lymphocytes # (Auto) 0.8 x10^3/uL (1.0-4.8) Monocytes # (Auto) 0.3 x10^3/uL (0.0-1.1) Eosinophils # (Auto) 0.0 x10^3/uL (0.0-0.7) Basophils # (Auto) 0.0 x10^3/uL (0.0-0.2) Platelet Estimate Decreased (ADEQUATE) Giant Platelets Present Anisocytosis Present Sodium Level 144 mmol/L (136-145) Potassium Level 3.5 mmol/L (3.5-5.1) Chloride Level 108 mmol/L (98-107) Carbon Dioxide Level 27 mmol/L (21-32) Anion Gap 9 (6-14) Blood Urea Nitrogen 13 mg/dL (7-20) Creatinine 0.7 mg/dL (0.6-1.0) Estimated GFR (Cockcroft-Gault) 82.5 Glucose Level 145 mg/dL (70-99) Lactic Acid Level 1.7 mmol/L (0.4-2.0) Calcium Level 8.4 mg/dL (8.5-10.1) Medications Active Scripts Medications Dose Route/Sig Max Daily Dose Days Date Category Flagyl (Metronidazole) 500 Mg Tablet 1 Tab PO BID 03/01/17 Reported Cefpodoxime Proxetil 200 Mg Tablet 1 Tab PO BID 03/01/17 Reported Ferrous Sulfate 325 Mg Tablet 1 Tab PO DAILY 02/23/17 Reported Lasix (Furosemide) 40 Mg Tablet 40 Mg PO QODAY 02/23/17 Reported Potassium Chloride 10 Meq Capsule.er 10 Meq PO QODAY 02/23/17 Reported Metoprolol Tartrate 25 Mg Tablet 12.5 Mg PO BID 01/31/17 Reported Atorvastatin Calcium 40 Mg Tablet 40 Mg PO HS 01/31/17 Reported Clopidogrel (Clopidogrel Bisulfate) 75 Mg Tablet 1 Tab PO DAILY 08/24/15 Reported Diclofenac Sodium 75 Mg Tablet.dr 75 Mg PO DAILY 12/21/14 Reported Ranitidine Hcl 150 Mg Tablet 1 Tab PO BID 12/21/14 Reported Aspirin 81 Mg Tab.chew 1 Tab PO DAILY 04/15/14 Reported Impression . 1. Qydum-xi-xzngcld respiratory failure, expected status post surgical intervention. 2. Status post laparoscopic converted to open exploration for extensive lysis of adhesion, removal of old mesh, subtotal colectomy, small bowel resection and incisional hernia repair. 3. Obesity, body mass index of 35. 4. Leukocytosis. 5. Enterocutaneous fistula. 6. Fever. 7. Abdominal abscess. 8. Ventral hernia, status post repair. Plan . VENOUS DOPPLER NEGATIVE CT NEGATIVE FOR PE MONITOR PLATELET 1. Case discussed with Dr. Hall, we will initiate Lovenox 1 mg per kg q.12, my clinical suspicion for PE is high. CT of the chest was not performed per PE protocol. 2. Continue BiPAP. 3. Continue support with antibiotics. 4. Follow surgery input. 5. Nutritional support. IFEOMA SEXTON MD Mar 29, 2017 15:34
[2017-03-29] MEDS: IV NORMAL SALINE 1000ML BAG 1,000 ML IV SCH (20:43)
[2017-03-29] MEDS: INSULIN DETEMIR 300 UNITS/3 ML INSULN.PEN. SQ SCH (21:28)
[2017-03-30] VITALS (24 sets, daily range): BP systolic 64–119; BP diastolic 2–68
[2017-03-30] MEDS: fentaNYL PF VIAL 100 MCG/2 ML VIAL IV PRN ×2 (00:18→18:09)
[2017-03-30] MEDS: HYDROcodone/APAP 7.5/325MG 1 TAB TABLET PO PRN (03:19)
[2017-03-30] MEDS: MEROPENEM IV Push 500 MG VIAL. IVP SCH (06:04)
[2017-03-30 06:29] LABS: BASO % 0 % (0-3); EOS % 1 % (0-3); HEMATOCRIT 26.3 % (36.0-47.0); HEMOGLOBIN 8.8 g/dL (12.0-15.5); LYMPH # 0.8 x10^3/uL (1.0-4.8); LYMPH % 22 % (24-48); MEAN CORPUSCULAR HEMOGLOBIN 29 pg (25-35); MEAN CORPUSCULAR HGB CONC 33 g/dL (31-37); MEAN CORPUSCULAR VOLUME 88 fL (79-100); MONO % 14 % (0-9); NEUT % 63 % (31-73); RED BLOOD COUNT 2.98 x10^6/uL (3.50-5.40); RED CELL DISTRIBUTION WIDTH 17.4 % (11.5-14.5); WHITE BLOOD COUNT 3.6 x10^3/uL (4.0-11.0)
[2017-03-30 06:49] LABS: PLATELET COUNT 18 x10^3/uL (140-400)
--- NOTE | 2017-03-30 07:54 | PDOC ---
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: Alert, oriented x 3, no focal neurologic deficit SKIN: No rash IV: ok Labs Lab Laboratory Tests Test 03/29/17 21:26 03/30/17 06:00 Glucose (Fingerstick) 164 mg/dL (70-99) White Blood Count 3.6 x10^3/uL (4.0-11.0) Red Blood Count 2.98 x10^6/uL (3.50-5.40) Hemoglobin 8.8 g/dL (12.0-15.5) Hematocrit 26.3 % (36.0-47.0) Mean Corpuscular Volume 88 fL (79-100) Mean Corpuscular Hemoglobin 29 pg (25-35) Mean Corpuscular Hemoglobin Concent 33 g/dL (31-37) Red Cell Distribution Width 17.4 % (11.5-14.5) Platelet Count 18 x10^3/uL (140-400) Neutrophils (%) (Auto) 63 % (31-73) Lymphocytes (%) (Auto) 22 % (24-48) Monocytes (%) (Auto) 14 % (0-9) Eosinophils (%) (Auto) 1 % (0-3) Basophils (%) (Auto) 0 % (0-3) Neutrophils # (Auto) 2.3 x10^3uL (1.8-7.7) Lymphocytes # (Auto) 0.8 x10^3/uL (1.0-4.8) Monocytes # (Auto) 0.5 x10^3/uL (0.0-1.1) Eosinophils # (Auto) 0.0 x10^3/uL (0.0-0.7) Basophils # (Auto) 0.0 x10^3/uL (0.0-0.2) Micro ct noted Objective Assessment s/p lap converted to open exploration, JAIRO, removal of infected mesh, subtotal colectomy, SBR and hernia repair, 03/24 Leukocytosis, likely reactive, (Dexamethasone pre-op) EC fistula Fever - better Abdominal abscess, measuring 6.4 x 4.9 cm. s/p drain 03/12. Klebsiella ( R to Zosyn, S Cipro/Levo), VRE (R PCN) and PSAE ( R to ticarcillin only otherwise sensitive, S Cipro/Levo) and C tropicalis h/o Strep anginosis and Bacteroides Ventral hernia DM HTN PCN allergy/amox also - hives and swelling Low plt Plan Plan of Care Cont Fluconazole and dapto Contact isolation f/u am labs will change meropenem to cipro for possible B lactam induced thrombocytopenia SANDRA RODNEY MD Mar 30, 2017 07:54
[2017-03-30] MEDS: IV NORMAL SALINE 1000ML BAG 1,000 ML IV SCH (08:00)
[2017-03-30] MEDS: ASPIRIN CHEWABLE 81 MG TABLET. PO SCH (09:00)
[2017-03-30] MEDS: METOPROLOL SUCC 24HR ER 25 MG TAB.ER.24H. PO SCH (09:00)
[2017-03-30] MEDS: PANTOPRAZOLE IV PUSH 40 MG VIAL. IVP SCH (09:28)
[2017-03-30] MEDS: FERROUS SULFATE 325 MG TABLET. PO SCH (09:29)
[2017-03-30] MEDS: FUROSEMIDE 20 MG/2 ML VIAL. IVP SCH (09:29)
[2017-03-30] MEDS: CIPROFLOXACIN 400MG PREMIX 200 ML IV SCH ×2 (09:36→21:06)
[2017-03-30] MEDS: IV DEXTROSE 5%-LACT RINGERS 1,000 ML IV SCH ×2 (09:38→18:57)
--- NOTE | 2017-03-30 10:11 | PDOC ---
Provider Note Provider Note sleeping on bipap- platelets still 18K, rest ok- AF rate 100, antocoag risk > benefit now re bleeding risk- cont same MILENA MCMILLAN MD Mar 30, 2017 10:11
[2017-03-30] MEDS: DAPTOMYCIN IV SCH (10:51)
[2017-03-30] MEDS: NORMAL SALINE IV SCH (10:51)
--- NOTE | 2017-03-30 10:55 | PDOC2 ---
CONSULT Date of Consult Date of Consult DATE: 03/30/17 TIME: 10:41 Reason for Consult Reason for Consult: Thrombocytopenia Source Source: Chart review, Patient History of Present Illness Reason for Visit: 71 yo female with history of recent hospitalization for abdominal abscess. She had this drained by IR treated with flagyl and omnicef. She was readmitted to the hospital on 03/09 due to worsening abdominal pain and tenderness. She was found to have recurrence of her abscess and started back on broad spectrum abx. She underwent surgery initially laproscopic converted to open exploration on 03/[address] Hall. At that time she was found to have extensive adhesions, her old mess was removed, she underwent a subtotal colectomy and small bowel resection. Seen was the RLQ abscess. Her cultures grew klebsiella, VRE and PSAE, and c tropicalis. During her hospitalization, she was started on prophylactic lovenox on 03/25 and received 1 dose of lovenox 80mg on 03/26. She had a negative US lower extremities on 03/26 and a negative CTA on 03/28. I was consulted for evaluation of thrombocytopenia. Her platelet count was normal on admission and started to decrease to 50K range on 03/26 and continued to decrease to 18K on 03/30. Past Medical History Cardiovascular: CAD, HTN, [place], Hyperlipidemia, Other (ascending aortic dissection) Pulmonary: No pertinent hx CENTRAL NERVOUS SYSTEM: Other (No pertinent history) GI: Diverticulosis Heme/Onc: Anemia NOS Hepatobiliary: Other Psych: No pertinent hx Musculoskeletal: Osteoarthritis Rheumatologic: Other Infectious disease: Other ENT: No pertinent hx Renal/: No pertinent hx Endocrine: Diabetes (2) Past Surgical History Past Surgical History: Cholecystectomy, Hernia Repair, Hysterectomy, Other ( PCI stent) Family History Family History: Hypertension Social History No ALCOHOL: none Drugs: None Lives: with Family Domestic Violence: Neg Current Problem List Problem List Problems Medical Problems: (1) Abdominal abscess Status: Acute (2) Abdominal pain Status: Acute Current Medications Current Medications Current Medications Ondansetron HCl (Zofran) 4 mg 1X ONCE IV Last administered on 03/09/17 08:30 ; Start 03/09/17 at 08:15; Stop 03/09/17 at 08:16; Status DC Iohexol (Omnipaque 300 Mg/ml) 75 ml 1X ONCE IV Last administered on 03/09/17 08:50; Start 03/09/17 at 08:45; Stop 03/09/17 at 08:46; Status DC Info (Do NOT chart on this entry -- for MONITORING) 1 each PRN DAILY PRN MC SEE COMMENTS; Start 03/09/17 at 08:45; Stop 03/11/17 at 08:44; Status DC Ceftriaxone Sodium 50 ml @ 100 mls/hr 1X ONCE IV ; Start 03/09/17 at 09:30; Stop 03/09/17 at 09:55; Status DC Sodium Chloride 1,000 ml @ 1,000 mls/hr 1X ONCE IV Last administered on 09:55; Start 03/09/17 at 10:00; Stop 03/09/17 at 10:59; Status DC Ondansetron HCl (Zofran) 4 mg PRN Q8HRS PRN IV NAUSEA/VOMITING; Start 03/09/17 at 10:30; Stop 03/10/17 at 10:29; Status DC Meropenem 500 mg/ Sodium Chloride 50 ml @ 100 mls/hr Q8HRS IV Last administered on 03/16/17 06:09; Start 03/09/17 at 13:00; Stop 03/16/17 at 12: 59; Status DC Acetaminophen (Tylenol) 650 mg PRN QID PRN PO MILD PAIN / TEMP Last administered on 03/17/17 19:53; Start 03/09/17 at 20:30 Aspirin (Children'S Aspirin) 81 mg DAILY PO Last administered on 03/19/17 10: 01; Start 03/10/17 at 15:00 Clopidogrel Bisulfate (Plavix) 75 mg DAILY PO Last administered on 03/19/17 10:00; Start 03/10/17 at 15:00; Stop 03/22/17 at 09:10; Status DC Ferrous Sulfate (Feosol) 325 mg DAILY PO Last administered on 03/30/17 09:29 ; Start 03/10/17 at 15:00 Metoprolol Tartrate (Lopressor) 12.5 mg BID PO Last administered on 03/10/17 16:01; Start 03/10/17 at 15:00; Stop 03/10/17 at 21:01; Status DC Diclofenac Sodium (Voltaren) 75 mg DAILY PO Last administered on 03/23/17 09: 23; Start 03/10/17 at 14:30; Stop 03/29/17 at 10:50; Status DC Famotidine (Pepcid) 20 mg QHS PO Last administered on 03/24/17 21:20; Start 03/10/17 at 21:00; Stop 03/26/17 at 09:35; Status DC Glimepiride (Amaryl) 1 mg DAILY PO Last administered on 03/13/17 09:25; Start 03/11/17 at 15:00; Stop 03/13/17 at 17:02; Status DC Sodium Chloride 1,000 ml @ 100 mls/hr 1X ONCE IV Last administered on 21:00; Start 03/10/17 at 21:00; Stop 03/11/17 at 06:59; Status DC Lidocaine/Sodium Bicarbonate (Buffered Lidocaine 1%) 20 ml STK-MED ONCE IJ ; Start 03/12/17 at 13:05; Stop 03/12/17 at 13:06; Status DC Fentanyl Citrate (Fentanyl 2ml Vial) 100 mcg STK-MED ONCE .ROUTE ; Start at 13:20; Stop 03/12/17 at 13:21; Status DC Midazolam HCl (Versed) 2 mg STK-MED ONCE .ROUTE ; Start 03/12/17 at 13:20; Stop 03/12/17 at 13:21; Status DC Flumazenil (Romazicon) 0.5 mg STK-MED ONCE IV ; Start 03/12/17 at 13:20; Stop 03/12/17 at 13:21; Status DC Naloxone HCl (Narcan) 0.4 mg STK-MED ONCE .ROUTE ; Start 03/12/17 at 13:20; Stop 03/12/17 at 13:21; Status DC Lidocaine/Sodium Bicarbonate (Buffered Lidocaine 1%) 20 ml 1X ONCE IJ Last administered on 03/12/17 13:50; Start 03/12/17 at 13:30; Stop 03/12/17 at 13:33 ; Status DC Midazolam HCl (Versed) 2 mg 1X ONCE IV Last administered on 03/12/17 13:50; Start 03/12/17 at 13:30; Stop 03/12/17 at 13:33; Status DC Fentanyl Citrate (Fentanyl 2ml Vial) 100 mcg 1X ONCE IV Last administered on 03/12/17 13:50; Start 03/12/17 at 13:30; Stop 03/12/17 at 13:33; Status DC Lactobacillus Rhamnosus (Culturelle) 1 cap BID PO Last administered on 21:20; Start 03/12/17 at 21:00; Stop 03/25/17 at 21:06; Status DC Acetaminophen/ Hydrocodone Bitart (Lortab 7.5/325) 1 tab PRN Q6HRS PRN PO MODERATE - SEVERE PAIN Last administered on 03/30/17 03:19; Start 03/12/17 at 18:15 Ondansetron HCl (Zofran) 4 mg PRN Q6HRS PRN IV NAUSEA/VOMITING, 1ST CHOICE Last administered on 03/25/17 04:53; Start 03/13/17 at 09:00 Furosemide (Lasix) 40 mg QODAY PO Last administered on 03/22/17 09:39; Start 03/14/17 at 09:00; Stop 03/26/17 at 09:00; Status DC Glimepiride (Amaryl) 1 mg DAILY08 PO Last administered on 03/22/17 09:40; Start 03/14/17 at 08:00; Stop 03/23/17 at 08:52; Status DC Linezolid (Zyvox) 600 mg BID PO Last administered on 03/24/17 21:20; Start 03/14/17 at 13:15; Stop 03/25/17 at 10:49; Status DC Meropenem (Merrem) 500 mg Q8HRS IVP Last administered on 03/30/17 06:04; Start 03/16/17 at 14:00; Stop 03/30/17 at 07:49; Status DC Iohexol (Omnipaque 240 Mg/ml) 50 ml STK-MED ONCE .ROUTE ; Start 03/19/17 at 13: 11; Stop 03/19/17 at 13:12; Status DC Iohexol (Omnipaque 240 Mg/ml) 10 ml 1X ONCE IJ Last administered on 14:07; Start 03/19/17 at 14:00; Stop 03/19/17 at 14:01; Status DC Info (Do NOT chart on this entry -- for MONITORING) 1 each PRN DAILY PRN MC SEE COMMENTS; Start 03/19/17 at 14:00; Stop 03/21/17 at 13:59; Status DC Iohexol (Omnipaque 240 Mg/ml) 50 ml STK-MED ONCE .ROUTE ; Start 03/19/17 at 13: 55; Stop 03/19/17 at 13:56; Status DC Fluconazole (Diflucan) 200 mg DAILY PO Last administered on 03/23/17t 09:24; Start 03/22/17 at 09:30; Stop 03/25/17 at 10:51; Status DC Metoprolol Succinate (Toprol Xl) 12.5 mg DAILY PO ; Start 03/23/17 at 09:00 Glimepiride (Amaryl) 0.5 mg DAILY08 PO ; Start 03/24/17 at 08:00; Stop at 13:05; Status DC Morphine Sulfate 1 mg PRN Q10MIN PRN IV SEVERE PAIN; Start 03/26/17 at 07:00; Stop 03/26/17 at 07:00; Status DC Ringer's Solution 1,000 ml @ 30 mls/hr Q24H IV ; Start 03/26/17 at 07:00; Stop 03/26/17 at 07:00; Status DC Lidocaine HCl (Xylocaine-Mpf 1% Vial) 2 ml PRN 1X PRN ID PRIOR TO IV START; Start 03/26/17 at 07:00; Stop 03/26/17 at 07:00; Status DC Hydromorphone HCl (Dilaudid) 0.5 mg PRN Q10MIN PRN IV SEV PAIN, Second choice; Start 03/26/17 at 07:00; Stop 03/27/17 at 06:59; Status Cancel Prochlorperazine Edisylate (Compazine) 5 mg PACU PRN PRN IV NAUSEA, MRX1 Last administered on 03/25/17t 07:45; Start 03/26/17 at 07:00; Stop 03/26/17 at 07 :00; Status DC Morphine Sulfate 1 mg PRN Q10MIN PRN IV SEVERE PAIN; Start 03/24/17 at 07:45; Stop 03/25/17 at 07:44; Status DC Ringer's Solution 1,000 ml @ 30 mls/hr Q24H IV Last administered on t 14:15; Start 03/24/17 at 07:32; Stop 03/24/17 at 19:31; Status DC Lidocaine HCl (Xylocaine-Mpf 1% Vial) 2 ml 1X PRN PRN ID IV START; Start 03/24 at 07:45; Stop 03/25/17 at 07:44; Status DC Hydromorphone HCl (Dilaudid) 0.5 mg PRN Q10MIN PRN IV SEV PAIN, Second choice; Start 03/24/17 at 07:45; Stop 03/25/17 at 07:44; Status DC Prochlorperazine Edisylate (Compazine) 5 mg PACU PRN PRN IV NAUSEA, MRX1; Start 03/24/17 at 07:45; Stop 03/25/17 at 07:44; Status DC Bupivacaine HCl/ Epinephrine Bitart (Sensorcain-Mpf Epi 0.5%-1:[id number]) 30 ml STK -MED ONCE .ROUTE Last administered on 03/24/17t 15:56; Start 03/24/17 at 10: 28; Stop 03/24/17 at 10:29; Status DC Neostigmine Methylsulfate (Bloxiverz) 10 mg STK-MED ONCE .ROUTE ; Start at 14:38; Stop 03/24/17 at 14:39; Status DC Rocuronium Labolt (Zemuron) 50 mg STK-MED ONCE .ROUTE ; Start 03/24/17 at 14: 38; Stop 03/24/17 at 14:39; Status DC Fentanyl Citrate (Fentanyl 2ml Vial) 100 mcg STK-MED ONCE .ROUTE ; Start at 14:38; Stop 03/24/17 at 14:39; Status DC Phenylephrine HCl 1 mg STK-MED ONCE IV ; Start 03/24/17 at 14:40; Stop at 14:41; Status DC Lidocaine HCl (Lidocaine Pf 2% Vial) 5 ml STK-MED ONCE .ROUTE ; Start 03/24/17 at 14:40; Stop 03/24/17 at 14:41; Status DC Dexamethasone Sodium Phosphate (Decadron) 20 mg STK-MED ONCE .ROUTE ; Start at 14:40; Stop 03/24/17 at 14:41; Status DC Ondansetron HCl (Zofran) 4 mg STK-MED ONCE .ROUTE ; Start 03/24/17 at 14:40; Stop 03/24/17 at 14:41; Status DC Propofol 20 ml @ As Directed STK-MED ONCE IV ; Start 03/24/17 at 14:40; Stop 03/24/17 at 14:41; Status DC Glycopyrrolate (Robinul) 1 mg STK-MED ONCE .ROUTE ; Start 03/24/17 at 15:11; Stop 03/24/17 at 15:12; Status DC Rocuronium Labolt (Zemuron) 50 mg STK-MED ONCE .ROUTE ; Start 03/24/17 at 15: 53; Stop 03/24/17 at 15:54; Status DC Fentanyl Citrate (Fentanyl 2ml Vial) 100 mcg STK-MED ONCE .ROUTE ; Start at 16:01; Stop 03/24/17 at 16:02; Status DC Morphine Sulfate 10 mg STK-MED ONCE .ROUTE ; Start 03/24/17 at 16:02; Stop at 16:03; Status DC Albumin Human 500 ml @ As Directed STK-MED ONCE IV ; Start 03/24/17 at 17:03; Stop 03/24/17 at 17:04; Status DC Phenylephrine HCl (Corky-Synephrine Inj) 10 mg STK-MED ONCE .ROUTE ; Start at 17:27; Stop 03/24/17 at 17:28; Status DC Rocuronium Labolt (Zemuron) 100 mg STK-MED ONCE .ROUTE ; Start 03/24/17 at 17: 57; Stop 03/24/17 at 17:58; Status DC Enoxaparin Sodium (Lovenox 40mg Syringe) 40 mg Q24H SQ Last administered on t 20:51; Start 03/24/17 at 20:45; Stop 03/26/17 at 19:34; Status DC Sodium Chloride (Normal Saline Flush) 3 ml QSHIFT PRN IV AFTER MEDS AND BLOOD DRAWS; Start 03/24/17 at 20:45 Ringer's Solution 1,000 ml @ 100 mls/hr Q10H IV Last administered on 12:32; Start 03/24/17 at 20:43; Stop 03/25/17 at 16:52; Status DC Naloxone HCl (Narcan) 0.4 mg PRN Q2MIN PRN IV SEE INSTRUCTIONS; Start at 20:45 Sodium Chloride 1,000 ml @ 25 mls/hr Q24H IV Last administered on 03/27/17 12:08; Start 03/24/17 at 20:43 Hydromorphone HCl 30 ml @ 0 mls/hr CONT PRN PRN IV PROTOCOL Last administered on 03/24/17 23:16; Start 03/24/17 at 20:45 Prochlorperazine Edisylate (Compazine) 5 mg PRN Q4HRS PRN IV NAUSEA/VOMITING, 2ND CHOICE; Start 03/25/17 at 07:45 Pantoprazole Sodium (Protonix Vial) 40 mg DAILYAC IVP Last administered on 09:28; Start 03/25/17 at 10:15 Linezolid 300 ml @ 300 mls/hr Q12HR IV Last administered on 03/26/17 20:54; Start 03/25/17 at 11:00; Stop 03/27/17 at 08:05; Status DC Fluconazole/ Sodium Chloride 100 ml @ 100 mls/hr Q24H IV Last administered on 03/29/17 11:52; Start 03/25/17 at 11:00 Dextrose/Lactated Ringer's 1,000 ml @ 150 mls/hr Q6H40M IV Last administered on 03/30/17 09:38; Start 03/25/17 at 17:00 Famotidine (Pepcid Vial) 40 mg QHS IVP Last administered on 03/28/17 21:35; Start 03/25/17 at 21:00; Stop 03/29/17 at 08:02; Status DC Lorazepam (Ativan) 0.5 mg 1X ONCE IV ; Start 03/26/17 at 07:00; Stop at 07:01; Status Cancel Lorazepam (Ativan) 0.5 mg PRN Q8HRS PRN PO ANXIETY / AGITATION; Start at 07:00; Status Cancel Furosemide (Lasix) 40 mg 1X ONCE IVP Last administered on 03/26/17 09:54; Start 03/26/17 at 09:00; Stop 03/26/17 at 09:01; Status DC Furosemide (Lasix) 20 mg DAILY IVP Last administered on 03/30/17 09:29; Start 03/27/17 at 09:00 Digoxin (Lanoxin) 250 mcg 1X ONCE IV Last administered on 03/26/17 15:06; Start 03/26/17 at 15:15; Stop 03/26/17 at 15:16; Status DC Iohexol (Omnipaque 300 Mg/ml) 75 ml 1X ONCE IV Last administered on 16:41; Start 03/26/17 at 16:45; Stop 03/26/17 at 16:46; Status DC Info (Do NOT chart on this entry -- for MONITORING) 1 each PRN DAILY PRN MC SEE COMMENTS; Start 03/26/17 at 16:45; Stop 03/28/17 at 16:44; Status DC Norepinephrine Bitartrate 250 ml @ As Directed STK-MED ONCE IV ; Start at 17:42; Stop 03/26/17 at 17:43; Status DC Norepinephrine Bitartrate 250 ml @ 0 mls/hr CONT PRN IV SEE I/O RECORD Last administered on 03/26/17 18:01; Start 03/26/17 at 18:00 Enoxaparin Sodium (Lovenox Per Pharmacy Treatment Dosing) 1 each PRN DAILY PRN MC SEE COMMENTS; Start 03/26/17 at 19:30; Stop 03/28/17 at 12:38; Status DC Enoxaparin Sodium (Lovenox 80mg Syringe) 80 mg Q12HR SQ Last administered on 21:51; Start 03/26/17 at 20:00; Stop 03/28/17 at 15:36; Status DC Daptomycin 460 mg/ Sodium Chloride 50 ml @ 100 mls/hr Q24H IV Last administered on 03/29/17 10:16; Start 03/27/17 at 09:00 Digoxin (Lanoxin) 250 mcg 1X ONCE IV Last administered on 03/27/17 12:09; Start 03/27/17 at 12:00; Stop 03/27/17 at 12:01; Status DC Insulin Detemir (Levemir) 5 units QHS SQ Last administered on 03/29/17 21:28 ; Start 03/27/17 at 21:00 Albumin Human 100 ml @ 100 mls/hr Q8H IV Last administered on 03/29/17 00:42 ; Start 03/28/17 at 09:00; Stop 03/29/17 at 01:59; Status DC Lorazepam (Ativan) 1 mg PRN Q6HRS PRN PO ANXIETY / AGITATION Last administered on 03/29/17 10:16; Start 03/28/17 at 16:00 Iohexol (Omnipaque 300 Mg/ml) 75 ml 1X ONCE IV Last administered on 16:00; Start 03/28/17 at 16:00; Stop 03/28/17 at 16:02; Status DC Info (Do NOT chart on this entry -- for MONITORING) 1 each PRN DAILY PRN MC SEE COMMENTS; Start 03/28/17 at 16:15; Stop 03/30/17 at 16:14 Fentanyl Citrate (Fentanyl 2ml Vial) 50 mcg PRN Q4HRS PRN IV PAIN Last administered on 03/30/17 00:18; Start 03/29/17 at 09:45 Ciprofloxacin/ Dextrose 200 ml @ 200 mls/hr Q12HR IV Last administered on 09:36; Start 03/30/17 at 09:00 Active Scripts Active Reported Flagyl (Metronidazole) 500 Mg Tablet 1 Tab PO BID Cefpodoxime Proxetil 200 Mg Tablet 1 Tab PO BID Ferrous Sulfate 325 Mg Tablet 1 Tab PO DAILY Lasix (Furosemide) 40 Mg Tablet 40 Mg PO QODAY Potassium Chloride 10 Meq Capsule.er 10 Meq PO QODAY Metoprolol Tartrate 25 Mg Tablet 12.5 Mg PO BID Atorvastatin Calcium 40 Mg Tablet 40 Mg PO HS Clopidogrel (Clopidogrel Bisulfate) 75 Mg Tablet 1 Tab PO DAILY Diclofenac Sodium 75 Mg Tablet.dr 75 Mg PO DAILY Ranitidine Hcl 150 Mg Tablet 1 Tab PO BID Aspirin 81 Mg Tab.chew 1 Tab PO DAILY Allergies Allergies: Coded Allergies: Penicillins (Verified Allergy, Intermediate, TOLERATES MERREM, CEFPODOXIME , 03/12/17) adhesive tape (Verified Allergy, Intermediate, Rash, 10/15/15) latex (Verified Allergy, Intermediate, Rash, 12/21/14) allergic to latex rubber gloves, Bandaids, and adhesive tape I S O L A T I O N *CONTACT* (Verified Allergy, Unknown, 03/16/17) vre metformin (Verified Adverse Reaction, Intermediate, nausea/diarrhea, ) ROS General: YES: Fatigue, Malaise PSYCHOLOGICAL ROS: No: Anxiety, Behavioral Disorder, Concentration difficultie , Decreased libido, Depression, Disorientation, Hallucinations, Hostility, Irritablity, Memory difficulties, Mood Swings, Obsessive thoughts, Physical abuse, Sexual abuse, Sleep disturbances, Suicidal ideation, Other Eyes: No Blurry vision, No Decreased vision, No Double vision, No Dry eyes, No Excessive tearing, No Eye Pain, No Itchy Eyes, No Loss of vision, No Photophobia , No Scotomata, No Uses contacts, No Uses glasses, No Other HEENT: No: Heacaches, Visual Changes, Hearing change, Nasal congestion, Nasal discharge, Oral lesions, Sinus pain, Sore Throat, Epistaxis, Sneezing, Snoring, Tinnitus, Vertigo, Vocal changes, Other ALLERGY AND IMMUNOLOGY: No: Hives, Insect Bite Sensitivity, Itchy/Watery Eyes, Nasal Congestion, Post Nasal Drip, Seasonal Allergies, Other Hematological and Lymphatic: No: Bleeding Problems, Blood Clots, Brusing ENDOCRINE: No: Breast Changes, Galactorrhea, Hair Pattern Changes, Hot Flashes , Malaise/lethargy, Mood Swings, Palpitations, Polydipsia/polyuria, Skin Changes , Temperature Intolerance, Unexpected Weight Changes, Other Respiratory: YES: Shortness of breath Cardiovascular: yes Edema, No Chest Pain, No Palpitations, No Orthopnea, No Paroxysmal Noc. Dyspnea, No Lt Headedness, No Other Gastrointestinal: Yes Abdominal Pain Neurological: No Behavorial Changes, No Bowel/Bladder ControlChng, No Confusion , No Dizziness, No Gait Disturbance, No Headaches, No Impaired Coord/balance, No Memory Loss, No Numbness/Tingling, No Seizures, No Speech Problems, No Tremors, No Visual Changes, No Weakness, No Other Skin: No Dry Skin, No Eczema, No Hair Changes, No Lumps, No Mole Changes, No Mottling, No Nail Changes, No Pruritus, No Rash, No Skin Lesion Changes, No Other, No Acne Physical Exam General: Alert, No acute distress HEENT: PERRLA Lungs: Clear to auscultation, Other (BIPAP on ) Heart: Normal S1, Normal S2 Abdomen: Normal bowel sounds, Soft Extremities: No clubbing, No cyanosis, Normal pulses, Other (+edema) Psych/Mental Status: Mental status NL Vitals VITALS Vital Signs Date Time Temp Pulse Resp B/P (MAP) Pulse Ox O2 Delivery O2 Flow Rate FiO2 03/30/17 10:00 74 22 92/49 (63) 98 Nasal Cannula 3.0 03/30/17 08:00 98.0 98.0 Labs Labs Laboratory Tests Test 03/28/17 21:39 03/29/17 05:50 03/29/17 21:26 03/30/17 06:00 Glucose (Fingerstick) 139 mg/dL (70-99) 164 mg/dL (70-99) White Blood Count 4.9 x10^3/uL (4.0-11.0) 3.6 x10^3/uL (4.0-11.0) Red Blood Count 3.02 x10^6/uL (3.50-5.40) 2.98 x10^6/uL (3.50-5.40) Hemoglobin 8.7 g/dL (12.0-15.5) 8.8 g/dL (12.0-15.5) Hematocrit 26.6 % (36.0-47.0) 26.3 % (36.0-47.0) Mean Corpuscular Volume 88 fL (79-100) 88 fL (79-100) Mean Corpuscular Hemoglobin 29 pg (25-35) 29 pg (25-35) Mean Corpuscular Hemoglobin Concent 33 g/dL (31-37) 33 g/dL (31-37) Red Cell Distribution Width 17.5 % (11.5-14.5) 17.4 % (11.5-14.5) Platelet Count 18 x10^3/uL (140-400) 18 x10^3/uL (140-400) Neutrophils (%) (Auto) 78 % (31-73) 63 % (31-73) Lymphocytes (%) (Auto) 16 % (24-48) 22 % (24-48) Monocytes (%) (Auto) 6 % (0-9) 14 % (0-9) Eosinophils (%) (Auto) 0 % (0-3) 1 % (0-3) Basophils (%) (Auto) 0 % (0-3) 0 % (0-3) Neutrophils # (Auto) 3.8 x10^3uL (1.8-7.7) 2.3 x10^3uL (1.8-7.7) Lymphocytes # (Auto) 0.8 x10^3/uL (1.0-4.8) 0.8 x10^3/uL (1.0-4.8) Monocytes # (Auto) 0.3 x10^3/uL (0.0-1.1) 0.5 x10^3/uL (0.0-1.1) Eosinophils # (Auto) 0.0 x10^3/uL (0.0-0.7) 0.0 x10^3/uL (0.0-0.7) Basophils # (Auto) 0.0 x10^3/uL (0.0-0.2) 0.0 x10^3/uL (0.0-0.2) Platelet Estimate Decreased (ADEQUATE) Giant Platelets Present Anisocytosis Present Sodium Level 144 mmol/L (136-145) Potassium Level 3.5 mmol/L (3.5-5.1) Chloride Level 108 mmol/L (98-107) Carbon Dioxide Level 27 mmol/L (21-32) Anion Gap 9 (6-14) Blood Urea Nitrogen 13 mg/dL (7-20) Creatinine 0.7 mg/dL (0.6-1.0) Estimated GFR (Cockcroft-Gault) 82.5 Glucose Level 145 mg/dL (70-99) Lactic Acid Level 1.7 mmol/L (0.4-2.0) Calcium Level 8.4 mg/dL (8.5-10.1) Laboratory Tests Test 03/29/17 21:26 03/30/17 06:00 Glucose (Fingerstick) 164 mg/dL (70-99) White Blood Count 3.6 x10^3/uL (4.0-11.0) Red Blood Count 2.98 x10^6/uL (3.50-5.40) Hemoglobin 8.8 g/dL (12.0-15.5) Hematocrit 26.3 % (36.0-47.0) Mean Corpuscular Volume 88 fL (79-100) Mean Corpuscular Hemoglobin 29 pg (25-35) Mean Corpuscular Hemoglobin Concent 33 g/dL (31-37) Red Cell Distribution Width 17.4 % (11.5-14.5) Platelet Count 18 x10^3/uL (140-400) Neutrophils (%) (Auto) 63 % (31-73) Lymphocytes (%) (Auto) 22 % (24-48) Monocytes (%) (Auto) 14 % (0-9) Eosinophils (%) (Auto) 1 % (0-3) Basophils (%) (Auto) 0 % (0-3) Neutrophils # (Auto) 2.3 x10^3uL (1.8-7.7) Lymphocytes # (Auto) 0.8 x10^3/uL (1.0-4.8) Monocytes # (Auto) 0.5 x10^3/uL (0.0-1.1) Eosinophils # (Auto) 0.0 x10^3/uL (0.0-0.7) Basophils # (Auto) 0.0 x10^3/uL (0.0-0.2) Assessment/Plan Assessment/Plan 1. Thrombocytopenia. This is most likely multifactorial in nature and is due to sepsis, medications and surgery. Given the time course of medications, this is less likely HIT and she has a low risk based on 4 T score. She does not have an VTE events based on negative US on 03/[address] chest on 03/28. Some of her medications could be causing this and her meropenem was changed to cipro by ID. I would continue to monitor. At this point, she does not need a transfusion of platelets, but if she develops bleeding I would transfuse. I am going to check repeat coags with PT/INR and PTT. I am also going to check her fibrinogen. If this is <100, would transfuse cryo. 2. Anemia. Agian most likely multifactorial from anemia of chronic disease, polyphlebotomy and surgery. Would check iron studies, b12 and folic acid 3. Abscess. Management as per other teams. DES CARDONA MD Mar 30, 2017 10:55
[2017-03-30 12:05] LABS: INR 1.2 (0.8-1.1); PROTHROMBIN TIME PATIENT 14.7 SEC (11.7-14.0)
[2017-03-30] MEDS: FLUCONAZOLE 200MG/100ML PREMIX 100 ML IV SCH (12:50)
--- NOTE | 2017-03-30 14:38 | PDOC ---
PROGRESS NOTES Subjective Subjective on Bipap, denies pain, nurse notes wound drainage Objective Objective Vital Signs Date Time Temp Pulse Resp B/P (MAP) Pulse Ox O2 Delivery O2 Flow Rate FiO2 03/30/17 13:00 96 22 106/56 (73) 100 BiPAP/CPAP 03/30/17 12:00 3.0 03/30/17 12:00 98.3 98.3 Intake and Output 03/30/17 07:00 Intake Total 3431 ml Output Total 1726 ml Balance 1705 ml Intake Oral 50 ml IV Total 3381 ml Output Urine Total 1386 ml Stool Total 340 ml Physical Exam Abdomen: Soft (separation of bottom portion of incision with large amount of serous drainage) Assessment Assessment Problems Medical Problems: (1) Abdominal abscess Status: Acute (2) Abdominal pain Status: Acute Plan Plan of Care No new surgical recs Comment Review of Relevant I have reviewed the following items chito (where applicable) has been applied. Labs Laboratory Tests Test 03/28/17 21:39 03/29/17 05:50 03/29/17 21:26 03/30/17 06:00 Glucose (Fingerstick) 139 mg/dL (70-99) 164 mg/dL (70-99) White Blood Count 4.9 x10^3/uL (4.0-11.0) 3.6 x10^3/uL (4.0-11.0) Red Blood Count 3.02 x10^6/uL (3.50-5.40) 2.98 x10^6/uL (3.50-5.40) Hemoglobin 8.7 g/dL (12.0-15.5) 8.8 g/dL (12.0-15.5) Hematocrit 26.6 % (36.0-47.0) 26.3 % (36.0-47.0) Mean Corpuscular Volume 88 fL (79-100) 88 fL (79-100) Mean Corpuscular Hemoglobin 29 pg (25-35) 29 pg (25-35) Mean Corpuscular Hemoglobin Concent 33 g/dL (31-37) 33 g/dL (31-37) Red Cell Distribution Width 17.5 % (11.5-14.5) 17.4 % (11.5-14.5) Platelet Count 18 x10^3/uL (140-400) 18 x10^3/uL (140-400) Neutrophils (%) (Auto) 78 % (31-73) 63 % (31-73) Lymphocytes (%) (Auto) 16 % (24-48) 22 % (24-48) Monocytes (%) (Auto) 6 % (0-9) 14 % (0-9) Eosinophils (%) (Auto) 0 % (0-3) 1 % (0-3) Basophils (%) (Auto) 0 % (0-3) 0 % (0-3) Neutrophils # (Auto) 3.8 x10^3uL (1.8-7.7) 2.3 x10^3uL (1.8-7.7) Lymphocytes # (Auto) 0.8 x10^3/uL (1.0-4.8) 0.8 x10^3/uL (1.0-4.8) Monocytes # (Auto) 0.3 x10^3/uL (0.0-1.1) 0.5 x10^3/uL (0.0-1.1) Eosinophils # (Auto) 0.0 x10^3/uL (0.0-0.7) 0.0 x10^3/uL (0.0-0.7) Basophils # (Auto) 0.0 x10^3/uL (0.0-0.2) 0.0 x10^3/uL (0.0-0.2) Platelet Estimate Decreased (ADEQUATE) Giant Platelets Present Anisocytosis Present Sodium Level 144 mmol/L (136-145) Potassium Level 3.5 mmol/L (3.5-5.1) Chloride Level 108 mmol/L (98-107) Carbon Dioxide Level 27 mmol/L (21-32) Anion Gap 9 (6-14) Blood Urea Nitrogen 13 mg/dL (7-20) Creatinine 0.7 mg/dL (0.6-1.0) Estimated GFR (Cockcroft-Gault) 82.5 Glucose Level 145 mg/dL (70-99) Lactic Acid Level 1.7 mmol/L (0.4-2.0) Calcium Level 8.4 mg/dL (8.5-10.1) Test 03/30/17 11:15 Prothrombin Time 14.7 SEC (11.7-14.0) Prothromb Time International Ratio 1.2 (0.8-1.1) Activated Partial Thromboplast Time 27 SEC (24-38) Fibrinogen 556 mg/dL (200-440) Laboratory Tests Test 03/29/17 21:26 03/30/17 06:00 03/30/17 11:15 Glucose (Fingerstick) 164 mg/dL (70-99) White Blood Count 3.6 x10^3/uL (4.0-11.0) Red Blood Count 2.98 x10^6/uL (3.50-5.40) Hemoglobin 8.8 g/dL (12.0-15.5) Hematocrit 26.3 % (36.0-47.0) Mean Corpuscular Volume 88 fL (79-100) Mean Corpuscular Hemoglobin 29 pg (25-35) Mean Corpuscular Hemoglobin Concent 33 g/dL (31-37) Red Cell Distribution Width 17.4 % (11.5-14.5) Platelet Count 18 x10^3/uL (140-400) Neutrophils (%) (Auto) 63 % (31-73) Lymphocytes (%) (Auto) 22 % (24-48) Monocytes (%) (Auto) 14 % (0-9) Eosinophils (%) (Auto) 1 % (0-3) Basophils (%) (Auto) 0 % (0-3) Neutrophils # (Auto) 2.3 x10^3uL (1.8-7.7) Lymphocytes # (Auto) 0.8 x10^3/uL (1.0-4.8) Monocytes # (Auto) 0.5 x10^3/uL (0.0-1.1) Eosinophils # (Auto) 0.0 x10^3/uL (0.0-0.7) Basophils # (Auto) 0.0 x10^3/uL (0.0-0.2) Prothrombin Time 14.7 SEC (11.7-14.0) Prothromb Time International Ratio 1.2 (0.8-1.1) Activated Partial Thromboplast Time 27 SEC (24-38) Fibrinogen 556 mg/dL (200-440) Microbiology 03/09/17 Blood Culture - Final, Complete NO GROWTH AFTER 5 DAYS 03/09/17 Urine Culture - Final, Complete 03/09/17 Urine Culture Result 1 (KULDEEP) - Final, Complete 03/12/17 Fungal Culture - Final, Complete 03/12/17 Fungal Culture Result 1 - Final, Complete Medications Current Medications Ondansetron HCl (Zofran) 4 mg 1X ONCE IV Last administered on 03/09/17 08:30 ; Start 03/09/17 at 08:15; Stop 03/09/17 at 08:16; Status DC Iohexol (Omnipaque 300 Mg/ml) 75 ml 1X ONCE IV Last administered on 03/09/17 08:50; Start 03/09/17 at 08:45; Stop 03/09/17 at 08:46; Status DC Info (Do NOT chart on this entry -- for MONITORING) 1 each PRN DAILY PRN MC SEE COMMENTS; Start 03/09/17 at 08:45; Stop 03/11/17 at 08:44; Status DC Ceftriaxone Sodium 50 ml @ 100 mls/hr 1X ONCE IV ; Start 03/09/17 at 09:30; Stop 03/09/17 at 09:55; Status DC Sodium Chloride 1,000 ml @ 1,000 mls/hr 1X ONCE IV Last administered on 09:55; Start 03/09/17 at 10:00; Stop 03/09/17 at 10:59; Status DC Ondansetron HCl (Zofran) 4 mg PRN Q8HRS PRN IV NAUSEA/VOMITING; Start 03/09/17 at 10:30; Stop 03/10/17 at 10:29; Status DC Meropenem 500 mg/ Sodium Chloride 50 ml @ 100 mls/hr Q8HRS IV Last administered on 03/16/17 06:09; Start 03/09/17 at 13:00; Stop 03/16/17 at 12: 59; Status DC Acetaminophen (Tylenol) 650 mg PRN QID PRN PO MILD PAIN / TEMP Last administered on 03/17/17 19:53; Start 03/09/17 at 20:30 Aspirin (Children'S Aspirin) 81 mg DAILY PO Last administered on 03/19/17 10: 01; Start 03/10/17 at 15:00 Clopidogrel Bisulfate (Plavix) 75 mg DAILY PO Last administered on 03/19/17 10:00; Start 03/10/17 at 15:00; Stop 03/22/17 at 09:10; Status DC Ferrous Sulfate (Feosol) 325 mg DAILY PO Last administered on 03/30/17 09:29 ; Start 03/10/17 at 15:00 Metoprolol Tartrate (Lopressor) 12.5 mg BID PO Last administered on 03/10/17 16:01; Start 03/10/17 at 15:00; Stop 03/10/17 at 21:01; Status DC Diclofenac Sodium (Voltaren) 75 mg DAILY PO Last administered on 03/23/17 09: 23; Start 03/10/17 at 14:30; Stop 03/29/17 at 10:50; Status DC Famotidine (Pepcid) 20 mg QHS PO Last administered on 03/24/17 21:20; Start 03/10/17 at 21:00; Stop 03/26/17 at 09:35; Status DC Glimepiride (Amaryl) 1 mg DAILY PO Last administered on 03/13/17 09:25; Start 03/11/17 at 15:00; Stop 03/13/17 at 17:02; Status DC Sodium Chloride 1,000 ml @ 100 mls/hr 1X ONCE IV Last administered on 21:00; Start 03/10/17 at 21:00; Stop 03/11/17 at 06:59; Status DC Lidocaine/Sodium Bicarbonate (Buffered Lidocaine 1%) 20 ml STK-MED ONCE IJ ; Start 03/12/17 at 13:05; Stop 03/12/17 at 13:06; Status DC Fentanyl Citrate (Fentanyl 2ml Vial) 100 mcg STK-MED ONCE .ROUTE ; Start at 13:20; Stop 03/12/17 at 13:21; Status DC Midazolam HCl (Versed) 2 mg STK-MED ONCE .ROUTE ; Start 03/12/17 at 13:20; Stop 03/12/17 at 13:21; Status DC Flumazenil (Romazicon) 0.5 mg STK-MED ONCE IV ; Start 03/12/17 at 13:20; Stop 03/12/17 at 13:21; Status DC Naloxone HCl (Narcan) 0.4 mg STK-MED ONCE .ROUTE ; Start 03/12/17 at 13:20; Stop 03/12/17 at 13:21; Status DC Lidocaine/Sodium Bicarbonate (Buffered Lidocaine 1%) 20 ml 1X ONCE IJ Last administered on 03/12/17 13:50; Start 03/12/17 at 13:30; Stop 03/12/17 at 13:33 ; Status DC Midazolam HCl (Versed) 2 mg 1X ONCE IV Last administered on 03/12/17 13:50; Start 03/12/17 at 13:30; Stop 03/12/17 at 13:33; Status DC Fentanyl Citrate (Fentanyl 2ml Vial) 100 mcg 1X ONCE IV Last administered on 03/12/17 13:50; Start 03/12/17 at 13:30; Stop 03/12/17 at 13:33; Status DC Lactobacillus Rhamnosus (Culturelle) 1 cap BID PO Last administered on 21:20; Start 03/12/17 at 21:00; Stop 03/25/17 at 21:06; Status DC Acetaminophen/ Hydrocodone Bitart (Lortab 7.5/325) 1 tab PRN Q6HRS PRN PO MODERATE - SEVERE PAIN Last administered on 03/30/17 03:19; Start 03/12/17 at 18:15 Ondansetron HCl (Zofran) 4 mg PRN Q6HRS PRN IV NAUSEA/VOMITING, 1ST CHOICE Last administered on 03/25/17 04:53; Start 03/13/17 at 09:00 Furosemide (Lasix) 40 mg QODAY PO Last administered on 03/22/17 09:39; Start 03/14/17 at 09:00; Stop 03/26/17 at 09:00; Status DC Glimepiride (Amaryl) 1 mg DAILY08 PO Last administered on 03/22/17 09:40; Start 03/14/17 at 08:00; Stop 03/23/17 at 08:52; Status DC Linezolid (Zyvox) 600 mg BID PO Last administered on 03/24/17 21:20; Start 03/14/17 at 13:15; Stop 03/25/17 at 10:49; Status DC Meropenem (Merrem) 500 mg Q8HRS IVP Last administered on 03/30/17 06:04; Start 03/16/17 at 14:00; Stop 03/30/17 at 07:49; Status DC Iohexol (Omnipaque 240 Mg/ml) 50 ml STK-MED ONCE .ROUTE ; Start 03/19/17 at 13: 11; Stop 03/19/17 at 13:12; Status DC Iohexol (Omnipaque 240 Mg/ml) 10 ml 1X ONCE IJ Last administered on t 14:07; Start 03/19/17 at 14:00; Stop 03/19/17 at 14:01; Status DC Info (Do NOT chart on this entry -- for MONITORING) 1 each PRN DAILY PRN MC SEE COMMENTS; Start 03/19/17 at 14:00; Stop 03/21/17 at 13:59; Status DC Iohexol (Omnipaque 240 Mg/ml) 50 ml STK-MED ONCE .ROUTE ; Start 03/19/17 at 13: 55; Stop 03/19/17 at 13:56; Status DC Fluconazole (Diflucan) 200 mg DAILY PO Last administered on 03/23/17t 09:24; Start 03/22/17 at 09:30; Stop 03/25/17 at 10:51; Status DC Metoprolol Succinate (Toprol Xl) 12.5 mg DAILY PO ; Start 03/23/17 at 09:00 Glimepiride (Amaryl) 0.5 mg DAILY08 PO ; Start 03/24/17 at 08:00; Stop at 13:05; Status DC Morphine Sulfate 1 mg PRN Q10MIN PRN IV SEVERE PAIN; Start 03/26/17 at 07:00; Stop 03/26/17 at 07:00; Status DC Ringer's Solution 1,000 ml @ 30 mls/hr Q24H IV ; Start 03/26/17 at 07:00; Stop 03/26/17 at 07:00; Status DC Lidocaine HCl (Xylocaine-Mpf 1% Vial) 2 ml PRN 1X PRN ID PRIOR TO IV START; Start 03/26/17 at 07:00; Stop 03/26/17 at 07:00; Status DC Hydromorphone HCl (Dilaudid) 0.5 mg PRN Q10MIN PRN IV SEV PAIN, Second choice; Start 03/26/17 at 07:00; Stop 03/27/17 at 06:59; Status Cancel Prochlorperazine Edisylate (Compazine) 5 mg PACU PRN PRN IV NAUSEA, MRX1 Last administered on 03/25/17 07:45; Start 03/26/17 at 07:00; Stop 03/26/17 at 07 :00; Status DC Morphine Sulfate 1 mg PRN Q10MIN PRN IV SEVERE PAIN; Start 03/24/17 at 07:45; Stop 03/25/17 at 07:44; Status DC Ringer's Solution 1,000 ml @ 30 mls/hr Q24H IV Last administered on 14:15; Start 03/24/17 at 07:32; Stop 03/24/17 at 19:31; Status DC Lidocaine HCl (Xylocaine-Mpf 1% Vial) 2 ml 1X PRN PRN ID IV START; Start 03/24 at 07:45; Stop 03/25/17 at 07:44; Status DC Hydromorphone HCl (Dilaudid) 0.5 mg PRN Q10MIN PRN IV SEV PAIN, Second choice; Start 03/24/17 at 07:45; Stop 03/25/17 at 07:44; Status DC Prochlorperazine Edisylate (Compazine) 5 mg PACU PRN PRN IV NAUSEA, MRX1; Start 03/24/17 at 07:45; Stop 03/25/17 at 07:44; Status DC Bupivacaine HCl/ Epinephrine Bitart (Sensorcain-Mpf Epi 0.5%-1:[id number]) 30 ml STK -MED ONCE .ROUTE Last administered on 03/24/17 15:56; Start 03/24/17 at 10: 28; Stop 03/24/17 at 10:29; Status DC Neostigmine Methylsulfate (Bloxiverz) 10 mg STK-MED ONCE .ROUTE ; Start at 14:38; Stop 03/24/17 at 14:39; Status DC Rocuronium [place] (Zemuron) 50 mg STK-MED ONCE .ROUTE ; Start 03/24/17 at 14: 38; Stop 03/24/17 at 14:39; Status DC Fentanyl Citrate (Fentanyl 2ml Vial) 100 mcg STK-MED ONCE .ROUTE ; Start at 14:38; Stop 03/24/17 at 14:39; Status DC Phenylephrine HCl 1 mg STK-MED ONCE IV ; Start 03/24/17 at 14:40; Stop at 14:41; Status DC Lidocaine HCl (Lidocaine Pf 2% Vial) 5 ml STK-MED ONCE .ROUTE ; Start 03/24/17 at 14:40; Stop 03/24/17 at 14:41; Status DC Dexamethasone Sodium Phosphate (Decadron) 20 mg STK-MED ONCE .ROUTE ; Start at 14:40; Stop 03/24/17 at 14:41; Status DC Ondansetron HCl (Zofran) 4 mg STK-MED ONCE .ROUTE ; Start 03/24/17 at 14:40; Stop 03/24/17 at 14:41; Status DC Propofol 20 ml @ As Directed STK-MED ONCE IV ; Start 03/24/17 at 14:40; Stop 03/24/17 at 14:41; Status DC Glycopyrrolate (Robinul) 1 mg STK-MED ONCE .ROUTE ; Start 03/24/17 at 15:11; Stop 03/24/17 at 15:12; Status DC Rocuronium [place] (Zemuron) 50 mg STK-MED ONCE .ROUTE ; Start 03/24/17 at 15: 53; Stop 03/24/17 at 15:54; Status DC Fentanyl Citrate (Fentanyl 2ml Vial) 100 mcg STK-MED ONCE .ROUTE ; Start at 16:01; Stop 03/24/17 at 16:02; Status DC Morphine Sulfate 10 mg STK-MED ONCE .ROUTE ; Start 03/24/17 at 16:02; Stop at 16:03; Status DC Albumin Human 500 ml @ As Directed STK-MED ONCE IV ; Start 03/24/17 at 17:03; Stop 03/24/17 at 17:04; Status DC Phenylephrine HCl (Corky-Synephrine Inj) 10 mg STK-MED ONCE .ROUTE ; Start at 17:27; Stop 03/24/17 at 17:28; Status DC Rocuronium [place] (Zemuron) 100 mg STK-MED ONCE .ROUTE ; Start 03/24/17 at 17: 57; Stop 03/24/17 at 17:58; Status DC Enoxaparin Sodium (Lovenox 40mg Syringe) 40 mg Q24H SQ Last administered on 20:51; Start 03/24/17 at 20:45; Stop 03/26/17 at 19:34; Status DC Sodium Chloride (Normal Saline Flush) 3 ml QSHIFT PRN IV AFTER MEDS AND BLOOD DRAWS; Start 03/24/17 at 20:45 Ringer's Solution 1,000 ml @ 100 mls/hr Q10H IV Last administered on 12:32; Start 03/24/17 at 20:43; Stop 03/25/17 at 16:52; Status DC Naloxone HCl (Narcan) 0.4 mg PRN Q2MIN PRN IV SEE INSTRUCTIONS; Start at 20:45 Sodium Chloride 1,000 ml @ 25 mls/hr Q24H IV Last administered on 03/27/17 12:08; Start 03/24/17 at 20:43 Hydromorphone HCl 30 ml @ 0 mls/hr CONT PRN PRN IV PROTOCOL Last administered on 03/24/17 23:16; Start 03/24/17 at 20:45 Prochlorperazine Edisylate (Compazine) 5 mg PRN Q4HRS PRN IV NAUSEA/VOMITING, 2ND CHOICE; Start 03/25/17 at 07:45 Pantoprazole Sodium (Protonix Vial) 40 mg DAILYAC IVP Last administered on 09:28; Start 03/25/17 at 10:15 Linezolid 300 ml @ 300 mls/hr Q12HR IV Last administered on 03/26/17 20:54; Start 03/25/17 at 11:00; Stop 03/27/17 at 08:05; Status DC Fluconazole/ Sodium Chloride 100 ml @ 100 mls/hr Q24H IV Last administered on 03/30/17 12:50; Start 03/25/17 at 11:00 Dextrose/Lactated Ringer's 1,000 ml @ 150 mls/hr Q6H40M IV Last administered on 03/30/17 09:38; Start 03/25/17 at 17:00 Famotidine (Pepcid Vial) 40 mg QHS IVP Last administered on 03/28/17 21:35; Start 03/25/17 at 21:00; Stop 03/29/17 at 08:02; Status DC Lorazepam (Ativan) 0.5 mg 1X ONCE IV ; Start 03/26/17 at 07:00; Stop at 07:01; Status Cancel Lorazepam (Ativan) 0.5 mg PRN Q8HRS PRN PO ANXIETY / AGITATION; Start at 07:00; Status Cancel Furosemide (Lasix) 40 mg 1X ONCE IVP Last administered on 03/26/17 09:54; Start 03/26/17 at 09:00; Stop 03/26/17 at 09:01; Status DC Furosemide (Lasix) 20 mg DAILY IVP Last administered on 03/30/17 09:29; Start 03/27/17 at 09:00 Digoxin (Lanoxin) 250 mcg 1X ONCE IV Last administered on 03/26/17 15:06; Start 03/26/17 at 15:15; Stop 03/26/17 at 15:16; Status DC Iohexol (Omnipaque 300 Mg/ml) 75 ml 1X ONCE IV Last administered on 16:41; Start 03/26/17 at 16:45; Stop 03/26/17 at 16:46; Status DC Info (Do NOT chart on this entry -- for MONITORING) 1 each PRN DAILY PRN MC SEE COMMENTS; Start 03/26/17 at 16:45; Stop 03/28/17 at 16:44; Status DC Norepinephrine Bitartrate 250 ml @ As Directed STK-MED ONCE IV ; Start at 17:42; Stop 03/26/17 at 17:43; Status DC Norepinephrine Bitartrate 250 ml @ 0 mls/hr CONT PRN IV SEE I/O RECORD Last administered on 03/26/17 18:01; Start 03/26/17 at 18:00 Enoxaparin Sodium (Lovenox Per Pharmacy Treatment Dosing) 1 each PRN DAILY PRN MC SEE COMMENTS; Start 03/26/17 at 19:30; Stop 03/28/17 at 12:38; Status DC Enoxaparin Sodium (Lovenox 80mg Syringe) 80 mg Q12HR SQ Last administered on 21:51; Start 03/26/17 at 20:00; Stop 03/28/17 at 15:36; Status DC Daptomycin 460 mg/ Sodium Chloride 50 ml @ 100 mls/hr Q24H IV Last administered on 03/30/17 10:51; Start 03/27/17 at 09:00 Digoxin (Lanoxin) 250 mcg 1X ONCE IV Last administered on 03/27/17 12:09; Start 03/27/17 at 12:00; Stop 03/27/17 at 12:01; Status DC Insulin Detemir (Levemir) 5 units QHS SQ Last administered on 03/29/17 21:28 ; Start 03/27/17 at 21:00 Albumin Human 100 ml @ 100 mls/hr Q8H IV Last administered on 03/29/17 00:42 ; Start 03/28/17 at 09:00; Stop 03/29/17 at 01:59; Status DC Lorazepam (Ativan) 1 mg PRN Q6HRS PRN PO ANXIETY / AGITATION Last administered on 03/29/17 10:16; Start 03/28/17 at 16:00 Iohexol (Omnipaque 300 Mg/ml) 75 ml 1X ONCE IV Last administered on 16:00; Start 03/28/17 at 16:00; Stop 03/28/17 at 16:02; Status DC Info (Do NOT chart on this entry -- for MONITORING) 1 each PRN DAILY PRN MC SEE COMMENTS; Start 03/28/17 at 16:15; Stop 03/30/17 at 16:14 Fentanyl Citrate (Fentanyl 2ml Vial) 50 mcg PRN Q4HRS PRN IV PAIN Last administered on 03/30/17 00:18; Start 03/29/17 at 09:45 Ciprofloxacin/ Dextrose 200 ml @ 200 mls/hr Q12HR IV Last administered on 09:36; Start 03/30/17 at 09:00 Active Scripts Active Reported Flagyl (Metronidazole) 500 Mg Tablet 1 Tab PO BID Cefpodoxime Proxetil 200 Mg Tablet 1 Tab PO BID Ferrous Sulfate 325 Mg Tablet 1 Tab PO DAILY Lasix (Furosemide) 40 Mg Tablet 40 Mg PO QODAY Potassium Chloride 10 Meq Capsule.er 10 Meq PO QODAY Metoprolol Tartrate 25 Mg Tablet 12.5 Mg PO BID Atorvastatin Calcium 40 Mg Tablet 40 Mg PO HS Clopidogrel (Clopidogrel Bisulfate) 75 Mg Tablet 1 Tab PO DAILY Diclofenac Sodium 75 Mg Tablet.dr 75 Mg PO DAILY Ranitidine Hcl 150 Mg Tablet 1 Tab PO BID Aspirin 81 Mg Tab.chew 1 Tab PO DAILY Vitals/I & O Vital Sign - Last 24 Hours 03/29/17 03/29/17 03/29/17 03/29/17 15:00 15:17 16:00 16:00 Pulse 118 118 Resp 25 B/P (MAP) 102/53 (69) 109/53 (71) Pulse Ox 99 100 99 O2 Delivery BiPAP/CPAP BiPAP/CPAP BiPAP/CPAP O2 Flow Rate 3.0 03/29/17 03/29/17 03/29/17 03/29/17 16:00 17:00 18:00 19:00 Temp 98.2 98.2 Pulse 118 118 112 Resp 38 B/P (MAP) 119/55 (76) 97/66 (76) 104/51 (68) Pulse Ox 99 99 99 O2 Delivery Bi-pap BiPAP/CPAP BiPAP/CPAP BiPAP/CPAP 03/29/17 03/29/17 03/29/17 03/29/17 19:32 19:48 20:00 20:00 Temp 97.2 97.2 Pulse 104 Resp 32 23 B/P (MAP) 98/53 (68) Pulse Ox 99 99 99 O2 Delivery BiPAP/CPAP BiPAP/CPAP BiPAP/CPAP O2 Flow Rate 3.0 03/29/17 03/29/17 03/29/17 03/29/17 20:00 21:00 21:29 21:49 Pulse 94 Resp 27 B/P (MAP) 117/53 (74) Pulse Ox 99 99 99 O2 Delivery Bi-pap BiPAP/CPAP BiPAP/CPAP 03/29/17 03/29/17 03/29/17 03/30/17 22:00 23:00 23:51 00:00 Pulse 95 110 Resp 22 23 B/P (MAP) 113/49 (70) 89/66 (74) Pulse Ox 99 99 100 O2 Delivery BiPAP/CPAP BiPAP/CPAP BiPAP/CPAP O2 Flow Rate 3.0 11/03/30/17 03/30/17 03/30/17 00:00 00:00 00:18 00:50 Temp 97.1 97.1 Pulse 104 Resp 22 B/P (MAP) 112/59 (76) Pulse Ox 99 100 O2 Delivery Bi-pap BiPAP/CPAP BiPAP/CPAP BiPAP/CPAP 03/30/17 03/30/17 03/30/17 03/30/17 01:00 02:00 02:05 03:00 Pulse 97 105 90 Resp 25 30 25 B/P (MAP) 103/66 (78) 114/52 (72) 99/58 (72) Pulse Ox 100 100 100 98 O2 Delivery BiPAP/CPAP BiPAP/CPAP BiPAP/CPAP BiPAP/CPAP 03/30/17 03/30/17 03/30/17 03/30/17 03:19 04:00 04:00 04:00 Temp 97.0 97.0 Pulse 86 Resp 31 B/P (MAP) 115/65 (82) Pulse Ox 99 94 O2 Delivery BiPAP/CPAP Bi-pap BiPAP/CPAP O2 Flow Rate 3.0 03/30/17 03/30/17 03/30/17 03/30/17 04:04 05:00 05:56 06:00 Pulse 78 77 Resp 21 22 B/P (MAP) 102/53 (69) 90/57 (68) Pulse Ox 99 100 99 100 O2 Delivery BiPAP/CPAP BiPAP/CPAP BiPAP/CPAP BiPAP/CPAP 03/30/17 03/30/17 03/30/17 03/30/17 06:03 07:00 08:00 08:00 Pulse 80 Resp 24 B/P (MAP) 119/68 (85) Pulse Ox 99 100 O2 Delivery BiPAP/CPAP BiPAP/CPAP Bi-pap O2 Flow Rate 3.0 3.0 03/30/17 03/30/17 03/30/17 03/30/17 08:00 10:00 11:00 11:47 Temp 98.0 98.0 Pulse 88 74 93 Resp 22 22 22 B/P (MAP) 113/59 (77) 92/49 (63) 90/47 (61) Pulse Ox 100 98 100 100 O2 Delivery BiPAP/CPAP Nasal Cannula BiPAP/CPAP BiPAP/CPAP O2 Flow Rate 3.0 11/24/03/30/17 03/30/17 03/30/17 12:00 12:00 12:00 13:00 Temp 98.3 98.3 Pulse 108 96 Resp 22 22 B/P (MAP) 106/46 (66) 106/56 (73) Pulse Ox 100 100 O2 Delivery BiPAP/CPAP Bi-pap BiPAP/CPAP O2 Flow Rate 3.0 3.0 Intake and Output 03/29/17 03/29/17 03/30/17 15:00 23:00 07:00 Intake Total 50 ml 3381 ml Output Total 1130 ml 596 ml Balance -1080 ml 2785 ml CICI OSCAR MD Mar 30, 2017 14:38
--- NOTE | 2017-03-30 16:29 | PDOC ---
PULMONARY PROGRESS NOTES Subjective PT NOT TOLERATING BEING OFF BIPAP Vitals Vital Signs Date Time Temp Pulse Resp B/P (MAP) Pulse Ox O2 Delivery O2 Flow Rate FiO2 03/30/17 15:56 100 BiPAP/CPAP 03/30/17 15:00 90 30 64/52 (56) 03/30/17 12:00 3.0 03/30/17 12:00 98.3 98.3 General: Alert Lungs: Crackles Cardiovascular: S1, S2 Abdomen: Soft, Non-tender Neuro Exam: Alert Extremities: No Edema Skin: Warm Labs Laboratory Tests Test 03/28/17 21:39 03/29/17 05:50 03/29/17 21:26 03/30/17 06:00 Glucose (Fingerstick) 139 mg/dL (70-99) 164 mg/dL (70-99) White Blood Count 4.9 x10^3/uL (4.0-11.0) 3.6 x10^3/uL (4.0-11.0) Red Blood Count 3.02 x10^6/uL (3.50-5.40) 2.98 x10^6/uL (3.50-5.40) Hemoglobin 8.7 g/dL (12.0-15.5) 8.8 g/dL (12.0-15.5) Hematocrit 26.6 % (36.0-47.0) 26.3 % (36.0-47.0) Mean Corpuscular Volume 88 fL (79-100) 88 fL (79-100) Mean Corpuscular Hemoglobin 29 pg (25-35) 29 pg (25-35) Mean Corpuscular Hemoglobin Concent 33 g/dL (31-37) 33 g/dL (31-37) Red Cell Distribution Width 17.5 % (11.5-14.5) 17.4 % (11.5-14.5) Platelet Count 18 x10^3/uL (140-400) 18 x10^3/uL (140-400) Neutrophils (%) (Auto) 78 % (31-73) 63 % (31-73) Lymphocytes (%) (Auto) 16 % (24-48) 22 % (24-48) Monocytes (%) (Auto) 6 % (0-9) 14 % (0-9) Eosinophils (%) (Auto) 0 % (0-3) 1 % (0-3) Basophils (%) (Auto) 0 % (0-3) 0 % (0-3) Neutrophils # (Auto) 3.8 x10^3uL (1.8-7.7) 2.3 x10^3uL (1.8-7.7) Lymphocytes # (Auto) 0.8 x10^3/uL (1.0-4.8) 0.8 x10^3/uL (1.0-4.8) Monocytes # (Auto) 0.3 x10^3/uL (0.0-1.1) 0.5 x10^3/uL (0.0-1.1) Eosinophils # (Auto) 0.0 x10^3/uL (0.0-0.7) 0.0 x10^3/uL (0.0-0.7) Basophils # (Auto) 0.0 x10^3/uL (0.0-0.2) 0.0 x10^3/uL (0.0-0.2) Platelet Estimate Decreased (ADEQUATE) Giant Platelets Present Anisocytosis Present Sodium Level 144 mmol/L (136-145) Potassium Level 3.5 mmol/L (3.5-5.1) Chloride Level 108 mmol/L (98-107) Carbon Dioxide Level 27 mmol/L (21-32) Anion Gap 9 (6-14) Blood Urea Nitrogen 13 mg/dL (7-20) Creatinine 0.7 mg/dL (0.6-1.0) Estimated GFR (Cockcroft-Gault) 82.5 Glucose Level 145 mg/dL (70-99) Lactic Acid Level 1.7 mmol/L (0.4-2.0) Calcium Level 8.4 mg/dL (8.5-10.1) Test 03/30/17 11:15 Prothrombin Time 14.7 SEC (11.7-14.0) Prothromb Time International Ratio 1.2 (0.8-1.1) Activated Partial Thromboplast Time 27 SEC (24-38) Fibrinogen 556 mg/dL (200-440) Laboratory Tests Test 03/29/17 21:26 03/30/17 06:00 03/30/17 11:15 Glucose (Fingerstick) 164 mg/dL (70-99) White Blood Count 3.6 x10^3/uL (4.0-11.0) Red Blood Count 2.98 x10^6/uL (3.50-5.40) Hemoglobin 8.8 g/dL (12.0-15.5) Hematocrit 26.3 % (36.0-47.0) Mean Corpuscular Volume 88 fL (79-100) Mean Corpuscular Hemoglobin 29 pg (25-35) Mean Corpuscular Hemoglobin Concent 33 g/dL (31-37) Red Cell Distribution Width 17.4 % (11.5-14.5) Platelet Count 18 x10^3/uL (140-400) Neutrophils (%) (Auto) 63 % (31-73) Lymphocytes (%) (Auto) 22 % (24-48) Monocytes (%) (Auto) 14 % (0-9) Eosinophils (%) (Auto) 1 % (0-3) Basophils (%) (Auto) 0 % (0-3) Neutrophils # (Auto) 2.3 x10^3uL (1.8-7.7) Lymphocytes # (Auto) 0.8 x10^3/uL (1.0-4.8) Monocytes # (Auto) 0.5 x10^3/uL (0.0-1.1) Eosinophils # (Auto) 0.0 x10^3/uL (0.0-0.7) Basophils # (Auto) 0.0 x10^3/uL (0.0-0.2) Prothrombin Time 14.7 SEC (11.7-14.0) Prothromb Time International Ratio 1.2 (0.8-1.1) Activated Partial Thromboplast Time 27 SEC (24-38) Fibrinogen 556 mg/dL (200-440) Medications Active Scripts Medications Dose Route/Sig Max Daily Dose Days Date Category Flagyl (Metronidazole) 500 Mg Tablet 1 Tab PO BID 03/01/17 Reported Cefpodoxime Proxetil 200 Mg Tablet 1 Tab PO BID 03/01/17 Reported Ferrous Sulfate 325 Mg Tablet 1 Tab PO DAILY 02/23/17 Reported Lasix (Furosemide) 40 Mg Tablet 40 Mg PO QODAY 02/23/17 Reported Potassium Chloride 10 Meq Capsule.er 10 Meq PO QODAY 02/23/17 Reported Metoprolol Tartrate 25 Mg Tablet 12.5 Mg PO BID 01/31/17 Reported Atorvastatin Calcium 40 Mg Tablet 40 Mg PO HS 01/31/17 Reported Clopidogrel (Clopidogrel Bisulfate) 75 Mg Tablet 1 Tab PO DAILY 08/24/15 Reported Diclofenac Sodium 75 Mg Tablet.dr 75 Mg PO DAILY 12/21/14 Reported Ranitidine Hcl 150 Mg Tablet 1 Tab PO BID 12/21/14 Reported Aspirin 81 Mg Tab.chew 1 Tab PO DAILY 04/15/14 Reported Impression . 1. Ewpnw-bl-usmygzh respiratory failure, expected status post surgical intervention. 2. Status post laparoscopic converted to open exploration for extensive lysis of adhesion, removal of old mesh, subtotal colectomy, small bowel resection and incisional hernia repair. 3. Obesity, body mass index of 35. 4. Leukocytosis. 5. Enterocutaneous fistula. 6. Fever. 7. Abdominal abscess. 8. Ventral hernia, status post repair. Plan . VENOUS DOPPLER NEGATIVE CT NEGATIVE FOR PE MONITOR PLATELET ANXIETY IS AN ISSUE WILL ADD SCHEDULED ATIVAN D/C LOVENOX NO PE ON CT OF CHEST IFEOMA SEXTON MD Mar 30, 2017 16:29
--- NOTE | 2017-03-30 17:04 | PATHOLOGY ---
PATHOLOGY REPORT * * * * * * * * FINAL DIAGNOSIS: A. Segments of fibroadipose tissue, designated "piece of mesh and tissue": - Segments of mesh with dense sclerosis and focal acute and chronic inflammation. - Focal suture foreign body granulomatous reaction. B. Segment of colon and short segment of distal ileum with attached mesocolon, subtotal colectomy: - Serosal adhesions with segment of mesh adhesed to transverse colon with associated sclerosis and chronic inflammation. - Diverticulosis with chronic and focal acute diverticulitis. - Focal reactive changes of mesocolic lymph nodes. - Mucinous cystadenoma of appendix. C. Segment of drain (Gross only). D. Segment of small intestine and attached mesentery, segmental resection: - Extensive serosal fibrosis and enteric-enteric adhesions, with kinking of small intestine and with traction diverticuli showing acute and chronic diverticulitis with focal rupture and perienteric abscesses and acute peritonitis with focal foreign body giant cell reaction. E. Segment of skin and subcutaneous tissue and separate segment of mesh, designated "old skin graft": - Fibrosis and focal acute and chronic inflammation of skin with adherent and separate segments of mesh showing dense sclerosis with focal chronic inflammation and dystrophic calcification. (JPM:mgpb; 03/30/2017) REPORT ELECTRONICALLY SIGNED BY: Jorge A Lane M.D. DATE/TIME: 03/30/2017 17:04 * * * * * * * * GROSS PATHOLOGY: A. Received in formalin labeled "Tamir Safia, piece of mesh and tissue" and consists of 5 irregularly shaped fragments of synthetic material consistent with mesh and partially covered by fibromembranous/fibroadipose tissue. The fragments range in size from 6.0 x 3.0 x 0.5 cm to 22.0 x 13.0 x 0.1-1.0 cm. No masses or lesions are identified. [employer] sections are submitted as A1. B. Received in formalin labeled "Safia Garnett, subtotal colectomy" and consists of a subtotal colectomy specimen to include large intestine (cecum/ascending/transverse/descending/sigmoid) measuring 101 cm in length with diameter ranging from 2.8 cm to 9.0 cm, terminal ileum measuring 3.5 cm in length by 1.7 cm in diameter and appendix measuring 2.6 cm in length by 1.1 cm in diameter. There are numerous thick and thin serosal adhesions. Elsewhere, the serosa is brown, red, and dusky mullins. The transverse segment demonstrates an area of attached synthetic material consistent with mesh and measuring 6.5 x 4.0 cm. The mesh is located 47 cm proximal to the distal margin. No other synthetic material is attached to specimen. The segment is opened longitudinally. The mucosa shows patchy dark green and confluent dark green areas of discoloration throughout the entire segment. There are decreased mucosal folds. There are no perforations or mucosal masses. There are multiple diverticula at the distal end that range in depth from 0.3 cm to 1.5 cm. Several of the diverticula are impacted with fecal material. A perforation is not grossly identified. The muscularis propria of distal end is markedly thickened up to 0.7 cm. [employer] sections are submitted B1-B8. B1 margins, cash applications representative B2 appendix B3 mesh attached to transverse colon B4-B5 random transmural sections B6-B7 diverticula B8 whole lymph node candidates, cash applications representative C. Received in formalin labeled "Safia Garnett, drain for gross only" and consists of a blue segment of rubber tubing measuring 29 cm in length by 0.4 cm in diameter. One end is curled. No soft tissue is present. Gross only. D. Received in formalin labeled "Tamir, Safia, small bowel" and consists of an unoriented, partially opened, serpiginous segment of small intestine measuring approximately 37 cm in length with diameter ranging from 3.0 cm to 4.2 cm. There are marked thick red maroon and mullins-brown serosal adhesions identified. The margins are closed with shorty. The mid segment is "kinked" with corresponding dense enteric-enteric adhesions. The segment is opened longitudinally revealing marked thickening of the muscularis propria of the mid segment. There are decreased mucosal folds. There are no mucosal masses identified. Sectioning the mesentery reveals no enlarged lymph nodes, masses, or lesions. [employer] sections are submitted D1-D7. D1-D2 surgical margins D3-D4 kinked small bowel with dense adhesions D5-D7 random transmural sections E. Received in formalin labeled "Tamir, Safia, old skin graft" and consists of a segment of baird skin measuring 26.0 cm in length, 9 cm wide, and 1.5 cm thick. The epidermal surface shows a slightly crusted brown lesion measuring 1.5 cm in diameter and a vague ulcerated appearance measuring 2.7 cm in greatest dimension. The lesions clear all margins by 1.3 cm or greater. The deep aspect of specimen is composed of synthetic mesh material. Also within the container is synthetic mesh. No surface by ragged maroon and yellow fibrous tissue, 5.0 x 3.0 x 2.2 cm. Sectioning reveals underlying probable fat necrosis. [employer] sections are submitted as E1. (ALLAN; 03/27/2017) INITIAL CPT CODE(S): A; 27177 B; 20663 C; 37072 D; 23121 E; 21367 Professional services performed by [facility] at [address] [address] Technical services performed by [facility] at [address] [place] [address], [address], [place] [address]. SPECIMEN(S) RECEIVED: A.Piece of mesh and tissue B.Subtotal colectomy C.Drain for gross only D.Small bowel E.Old skin graft CLINICAL HISTORY: RLQ abscess with infected mesh and diverticulitis PATIENT: TAMIR SAFIA M /AGE: 6 1945 (Age: 71) PATIENT #: [id number] ALT CASE #: SPECIMEN COLLECTION DATE: 03/24/2017 SPECIMEN RECEIVED DATE: 03/26/2017 [facility] - [id number] [address] - PHONE: [phone] * * * END OF REPORT * * *
[2017-03-30] MEDS: ACETAMINOPHEN 325 MG TABLET. PO PRN (17:43)
[2017-03-30] MEDS: LORazepam 1 MG TABLET PO PRN (17:43)
[2017-03-30] MEDS: LORazepam 0.5 MG TABLET PO SCH (21:06)
[2017-03-30] MEDS: INSULIN DETEMIR 300 UNITS/3 ML INSULN.PEN. SQ SCH (21:07)
[2017-03-31] VITALS (24 sets, daily range): BP systolic 72–119; BP diastolic 39–93
[2017-03-31] MEDS: IV DEXTROSE 5%-LACT RINGERS 1,000 ML IV SCH ×2 (03:28→12:13)
[2017-03-31] MEDS: HYDROcodone/APAP 7.5/325MG 1 TAB TABLET PO PRN ×2 (06:23→13:01)
[2017-03-31 06:40] LABS: BASO % 0 % (0-3); EOS % 1 % (0-3); HEMATOCRIT 27.5 % (36.0-47.0); LYMPH # 1.2 x10^3/uL (1.0-4.8); LYMPH % 25 % (24-48); MEAN CORPUSCULAR HEMOGLOBIN 29 pg (25-35); MEAN CORPUSCULAR HGB CONC 33 g/dL (31-37); MEAN CORPUSCULAR VOLUME 87 fL (79-100); MONO % 13 % (0-9); NEUT % 61 % (31-73); PLATELET COUNT 39 x10^3/uL (140-400); RED BLOOD COUNT 3.16 x10^6/uL (3.50-5.40); RED CELL DISTRIBUTION WIDTH 17.3 % (11.5-14.5); WHITE BLOOD COUNT 4.7 x10^3/uL (4.0-11.0)
[2017-03-31] MEDS: CIPROFLOXACIN 400MG PREMIX 200 ML IV SCH ×2 (08:59→20:47)
[2017-03-31] MEDS: LORazepam 0.5 MG TABLET PO SCH ×2 (08:59→20:47)
[2017-03-31] MEDS: FERROUS SULFATE 325 MG TABLET. PO SCH (08:59)
[2017-03-31] MEDS: FUROSEMIDE 20 MG/2 ML VIAL. IVP SCH (09:00)
[2017-03-31] MEDS: ASPIRIN CHEWABLE 81 MG TABLET. PO SCH (09:00)
[2017-03-31] MEDS: PANTOPRAZOLE IV PUSH 40 MG VIAL. IVP SCH (09:01)
[2017-03-31] MEDS: fentaNYL PF VIAL 100 MCG/2 ML VIAL IV PRN (09:10)
[2017-03-31] MEDS: METOPROLOL SUCC 24HR ER 25 MG TAB.ER.24H. PO SCH (10:00)
--- NOTE | 2017-03-31 10:54 | PDOC ---
SURGICAL PROGRESS NOTE Subjective Pt denies new c/o, currently off bipap, eladio some PO Vital Signs Vital Signs Date Time Temp Pulse Resp B/P (MAP) Pulse Ox O2 Delivery O2 Flow Rate FiO2 03/31/17 10:00 89 105/55 03/31/17 09:13 26 99 BiPAP/CPAP 03/31/17 09:10 5.0 03/31/17 07:00 98.4 98.4 I&O Intake and Output 03/31/17 07:00 Intake Total 2778 ml Output Total 1230 ml Balance 1548 ml Intake Oral 400 ml IV Total 2378 ml Output Urine Total 1080 ml Stool Total 150 ml PATIENT HAS A HOPPER: Yes (accurate I and Os) General: Alert, Oriented X3, Cooperative, No acute distress Abdomen: Soft, No tenderness, Other (incision intact, seropurulent drainage from inferior wound via elvira) Labs Laboratory Tests Test 03/29/17 21:26 03/30/17 06:00 03/30/17 11:15 03/30/17 21:04 Glucose (Fingerstick) 164 mg/dL (70-99) 158 mg/dL (70-99) White Blood Count 3.6 x10^3/uL (4.0-11.0) Red Blood Count 2.98 x10^6/uL (3.50-5.40) Hemoglobin 8.8 g/dL (12.0-15.5) Hematocrit 26.3 % (36.0-47.0) Mean Corpuscular Volume 88 fL (79-100) Mean Corpuscular Hemoglobin 29 pg (25-35) Mean Corpuscular Hemoglobin Concent 33 g/dL (31-37) Red Cell Distribution Width 17.4 % (11.5-14.5) Platelet Count 18 x10^3/uL (140-400) Neutrophils (%) (Auto) 63 % (31-73) Lymphocytes (%) (Auto) 22 % (24-48) Monocytes (%) (Auto) 14 % (0-9) Eosinophils (%) (Auto) 1 % (0-3) Basophils (%) (Auto) 0 % (0-3) Neutrophils # (Auto) 2.3 x10^3uL (1.8-7.7) Lymphocytes # (Auto) 0.8 x10^3/uL (1.0-4.8) Monocytes # (Auto) 0.5 x10^3/uL (0.0-1.1) Eosinophils # (Auto) 0.0 x10^3/uL (0.0-0.7) Basophils # (Auto) 0.0 x10^3/uL (0.0-0.2) Prothrombin Time 14.7 SEC (11.7-14.0) Prothromb Time International Ratio 1.2 (0.8-1.1) Activated Partial Thromboplast Time 27 SEC (24-38) Fibrinogen 556 mg/dL (200-440) Test 03/31/17 06:30 03/31/17 08:18 White Blood Count 4.7 x10^3/uL (4.0-11.0) Red Blood Count 3.16 x10^6/uL (3.50-5.40) Hemoglobin 9.0 g/dL (12.0-15.5) Hematocrit 27.5 % (36.0-47.0) Mean Corpuscular Volume 87 fL (79-100) Mean Corpuscular Hemoglobin 29 pg (25-35) Mean Corpuscular Hemoglobin Concent 33 g/dL (31-37) Red Cell Distribution Width 17.3 % (11.5-14.5) Platelet Count 39 x10^3/uL (140-400) Neutrophils (%) (Auto) 61 % (31-73) Lymphocytes (%) (Auto) 25 % (24-48) Monocytes (%) (Auto) 13 % (0-9) Eosinophils (%) (Auto) 1 % (0-3) Basophils (%) (Auto) 0 % (0-3) Neutrophils # (Auto) 2.9 x10^3uL (1.8-7.7) Lymphocytes # (Auto) 1.2 x10^3/uL (1.0-4.8) Monocytes # (Auto) 0.6 x10^3/uL (0.0-1.1) Eosinophils # (Auto) 0.1 x10^3/uL (0.0-0.7) Basophils # (Auto) 0.0 x10^3/uL (0.0-0.2) Glucose (Fingerstick) 170 mg/dL (70-99) Laboratory Tests Test 03/30/17 11:15 03/30/17 21:04 03/31/17 06:30 03/31/17 08:18 Prothrombin Time 14.7 SEC (11.7-14.0) Prothromb Time International Ratio 1.2 (0.8-1.1) Activated Partial Thromboplast Time 27 SEC (24-38) Fibrinogen 556 mg/dL (200-440) Glucose (Fingerstick) 158 mg/dL (70-99) 170 mg/dL (70-99) White Blood Count 4.7 x10^3/uL (4.0-11.0) Red Blood Count 3.16 x10^6/uL (3.50-5.40) Hemoglobin 9.0 g/dL (12.0-15.5) Hematocrit 27.5 % (36.0-47.0) Mean Corpuscular Volume 87 fL (79-100) Mean Corpuscular Hemoglobin 29 pg (25-35) Mean Corpuscular Hemoglobin Concent 33 g/dL (31-37) Red Cell Distribution Width 17.3 % (11.5-14.5) Platelet Count 39 x10^3/uL (140-400) Neutrophils (%) (Auto) 61 % (31-73) Lymphocytes (%) (Auto) 25 % (24-48) Monocytes (%) (Auto) 13 % (0-9) Eosinophils (%) (Auto) 1 % (0-3) Basophils (%) (Auto) 0 % (0-3) Neutrophils # (Auto) 2.9 x10^3uL (1.8-7.7) Lymphocytes # (Auto) 1.2 x10^3/uL (1.0-4.8) Monocytes # (Auto) 0.6 x10^3/uL (0.0-1.1) Eosinophils # (Auto) 0.1 x10^3/uL (0.0-0.7) Basophils # (Auto) 0.0 x10^3/uL (0.0-0.2) Problem List Problems Medical Problems: (1) Abdominal abscess Status: Acute (2) Abdominal pain Status: Acute Assessment/Plan s/p xlap cont supportive care and abx d/w pt and pt's son d/w hematology, ID Problems: LI HAMMOND MD Mar 31, 2017 10:54
--- NOTE | 2017-03-31 11:06 | PDOC ---
PROGRESS NOTES Subjective Subjective Pt seen and examined. She is feeling a little better than yesterday Objective Objective Vital Signs Date Time Temp Pulse Resp B/P (MAP) Pulse Ox O2 Delivery O2 Flow Rate FiO2 03/31/17 10:00 89 105/55 03/31/17 09:13 26 99 BiPAP/CPAP 03/31/17 09:10 5.0 03/31/17 07:00 98.4 98.4 Intake and Output 03/31/17 07:00 Intake Total 2778 ml Output Total 1230 ml Balance 1548 ml Intake Oral 400 ml IV Total 2378 ml Output Urine Total 1080 ml Stool Total 150 ml Physical Exam Abdomen: Normal bowel sounds, Soft, Other (ostomy in place. incision is c/d/i) Heart: Regular rate, Normal S1, Normal S2 Extremities: No clubbing General: Alert, Oriented X3 HEENT: PERRLA Lungs: Clear to auscultation Assessment Assessment Problems Medical Problems: (1) Abdominal abscess Status: Acute (2) Abdominal pain Status: Acute Plan Plan of Care 1. Thrombocytopenia. Improving. Reviewed coags. Cont to monitor. I expect her platelet count to recover as she recovers. 2. Anemia. Agian most likely multifactorial from anemia of chronic disease, polyphlebotomy and surgery. Would check iron studies, b12 and folic acid 3. Abscess. Management as per other teams Comment Review of Relevant I have reviewed the following items chito (where applicable) has been applied. Labs Laboratory Tests Test 03/29/17 21:26 03/30/17 06:00 03/30/17 11:15 03/30/17 21:04 Glucose (Fingerstick) 164 mg/dL (70-99) 158 mg/dL (70-99) White Blood Count 3.6 x10^3/uL (4.0-11.0) Red Blood Count 2.98 x10^6/uL (3.50-5.40) Hemoglobin 8.8 g/dL (12.0-15.5) Hematocrit 26.3 % (36.0-47.0) Mean Corpuscular Volume 88 fL (79-100) Mean Corpuscular Hemoglobin 29 pg (25-35) Mean Corpuscular Hemoglobin Concent 33 g/dL (31-37) Red Cell Distribution Width 17.4 % (11.5-14.5) Platelet Count 18 x10^3/uL (140-400) Neutrophils (%) (Auto) 63 % (31-73) Lymphocytes (%) (Auto) 22 % (24-48) Monocytes (%) (Auto) 14 % (0-9) Eosinophils (%) (Auto) 1 % (0-3) Basophils (%) (Auto) 0 % (0-3) Neutrophils # (Auto) 2.3 x10^3uL (1.8-7.7) Lymphocytes # (Auto) 0.8 x10^3/uL (1.0-4.8) Monocytes # (Auto) 0.5 x10^3/uL (0.0-1.1) Eosinophils # (Auto) 0.0 x10^3/uL (0.0-0.7) Basophils # (Auto) 0.0 x10^3/uL (0.0-0.2) Prothrombin Time 14.7 SEC (11.7-14.0) Prothromb Time International Ratio 1.2 (0.8-1.1) Activated Partial Thromboplast Time 27 SEC (24-38) Fibrinogen 556 mg/dL (200-440) Test 03/31/17 06:30 03/31/17 08:18 White Blood Count 4.7 x10^3/uL (4.0-11.0) Red Blood Count 3.16 x10^6/uL (3.50-5.40) Hemoglobin 9.0 g/dL (12.0-15.5) Hematocrit 27.5 % (36.0-47.0) Mean Corpuscular Volume 87 fL (79-100) Mean Corpuscular Hemoglobin 29 pg (25-35) Mean Corpuscular Hemoglobin Concent 33 g/dL (31-37) Red Cell Distribution Width 17.3 % (11.5-14.5) Platelet Count 39 x10^3/uL (140-400) Neutrophils (%) (Auto) 61 % (31-73) Lymphocytes (%) (Auto) 25 % (24-48) Monocytes (%) (Auto) 13 % (0-9) Eosinophils (%) (Auto) 1 % (0-3) Basophils (%) (Auto) 0 % (0-3) Neutrophils # (Auto) 2.9 x10^3uL (1.8-7.7) Lymphocytes # (Auto) 1.2 x10^3/uL (1.0-4.8) Monocytes # (Auto) 0.6 x10^3/uL (0.0-1.1) Eosinophils # (Auto) 0.1 x10^3/uL (0.0-0.7) Basophils # (Auto) 0.0 x10^3/uL (0.0-0.2) Glucose (Fingerstick) 170 mg/dL (70-99) Laboratory Tests Test 03/30/17 11:15 03/30/17 21:04 03/31/17 06:30 03/31/17 08:18 Prothrombin Time 14.7 SEC (11.7-14.0) Prothromb Time International Ratio 1.2 (0.8-1.1) Activated Partial Thromboplast Time 27 SEC (24-38) Fibrinogen 556 mg/dL (200-440) Glucose (Fingerstick) 158 mg/dL (70-99) 170 mg/dL (70-99) White Blood Count 4.7 x10^3/uL (4.0-11.0) Red Blood Count 3.16 x10^6/uL (3.50-5.40) Hemoglobin 9.0 g/dL (12.0-15.5) Hematocrit 27.5 % (36.0-47.0) Mean Corpuscular Volume 87 fL (79-100) Mean Corpuscular Hemoglobin 29 pg (25-35) Mean Corpuscular Hemoglobin Concent 33 g/dL (31-37) Red Cell Distribution Width 17.3 % (11.5-14.5) Platelet Count 39 x10^3/uL (140-400) Neutrophils (%) (Auto) 61 % (31-73) Lymphocytes (%) (Auto) 25 % (24-48) Monocytes (%) (Auto) 13 % (0-9) Eosinophils (%) (Auto) 1 % (0-3) Basophils (%) (Auto) 0 % (0-3) Neutrophils # (Auto) 2.9 x10^3uL (1.8-7.7) Lymphocytes # (Auto) 1.2 x10^3/uL (1.0-4.8) Monocytes # (Auto) 0.6 x10^3/uL (0.0-1.1) Eosinophils # (Auto) 0.1 x10^3/uL (0.0-0.7) Basophils # (Auto) 0.0 x10^3/uL (0.0-0.2) Microbiology 03/09/17 Blood Culture - Final, Complete NO GROWTH AFTER 5 DAYS 03/09/17 Urine Culture - Final, Complete 03/09/17 Urine Culture Result 1 (KULDEEP) - Final, Complete 03/12/17 Fungal Culture - Final, Complete 03/12/17 Fungal Culture Result 1 - Final, Complete Medications Current Medications Ondansetron HCl (Zofran) 4 mg 1X ONCE IV Last administered on 03/09/17 08:30 ; Start 03/09/17 at 08:15; Stop 03/09/17 at 08:16; Status DC Iohexol (Omnipaque 300 Mg/ml) 75 ml 1X ONCE IV Last administered on 03/09/17 08:50; Start 03/09/17 at 08:45; Stop 03/09/17 at 08:46; Status DC Info (Do NOT chart on this entry -- for MONITORING) 1 each PRN DAILY PRN MC SEE COMMENTS; Start 03/09/17 at 08:45; Stop 03/11/17 at 08:44; Status DC Ceftriaxone Sodium 50 ml @ 100 mls/hr 1X ONCE IV ; Start 03/09/17 at 09:30; Stop 03/09/17 at 09:55; Status DC Sodium Chloride 1,000 ml @ 1,000 mls/hr 1X ONCE IV Last administered on 09:55; Start 03/09/17 at 10:00; Stop 03/09/17 at 10:59; Status DC Ondansetron HCl (Zofran) 4 mg PRN Q8HRS PRN IV NAUSEA/VOMITING; Start 03/09/17 at 10:30; Stop 03/10/17 at 10:29; Status DC Meropenem 500 mg/ Sodium Chloride 50 ml @ 100 mls/hr Q8HRS IV Last administered on 03/16/17 06:09; Start 03/09/17 at 13:00; Stop 03/16/17 at 12: 59; Status DC Acetaminophen (Tylenol) 650 mg PRN QID PRN PO MILD PAIN / TEMP Last administered on 03/30/17 17:43; Start 03/09/17 at 20:30 Aspirin (Children'S Aspirin) 81 mg DAILY PO Last administered on 03/31/17 09: 00; Start 03/10/17 at 15:00 Clopidogrel Bisulfate (Plavix) 75 mg DAILY PO Last administered on 03/19/17 10:00; Start 03/10/17 at 15:00; Stop 03/22/17 at 09:10; Status DC Ferrous Sulfate (Feosol) 325 mg DAILY PO Last administered on 03/31/17 08:59 ; Start 03/10/17 at 15:00 Metoprolol Tartrate (Lopressor) 12.5 mg BID PO Last administered on 03/10/17 16:01; Start 03/10/17 at 15:00; Stop 03/10/17 at 21:01; Status DC Diclofenac Sodium (Voltaren) 75 mg DAILY PO Last administered on 03/23/17 09: 23; Start 03/10/17 at 14:30; Stop 03/29/17 at 10:50; Status DC Famotidine (Pepcid) 20 mg QHS PO Last administered on 03/24/17 21:20; Start 03/10/17 at 21:00; Stop 03/26/17 at 09:35; Status DC Glimepiride (Amaryl) 1 mg DAILY PO Last administered on 03/13/17 09:25; Start 03/11/17 at 15:00; Stop 03/13/17 at 17:02; Status DC Sodium Chloride 1,000 ml @ 100 mls/hr 1X ONCE IV Last administered on 21:00; Start 03/10/17 at 21:00; Stop 03/11/17 at 06:59; Status DC Lidocaine/Sodium Bicarbonate (Buffered Lidocaine 1%) 20 ml STK-MED ONCE IJ ; Start 03/12/17 at 13:05; Stop 03/12/17 at 13:06; Status DC Fentanyl Citrate (Fentanyl 2ml Vial) 100 mcg STK-MED ONCE .ROUTE ; Start at 13:20; Stop 03/12/17 at 13:21; Status DC Midazolam HCl (Versed) 2 mg STK-MED ONCE .ROUTE ; Start 03/12/17 at 13:20; Stop 03/12/17 at 13:21; Status DC Flumazenil (Romazicon) 0.5 mg STK-MED ONCE IV ; Start 03/12/17 at 13:20; Stop 03/12/17 at 13:21; Status DC Naloxone HCl (Narcan) 0.4 mg STK-MED ONCE .ROUTE ; Start 03/12/17 at 13:20; Stop 03/12/17 at 13:21; Status DC Lidocaine/Sodium Bicarbonate (Buffered Lidocaine 1%) 20 ml 1X ONCE IJ Last administered on 03/12/17 13:50; Start 03/12/17 at 13:30; Stop 03/12/17 at 13:33 ; Status DC Midazolam HCl (Versed) 2 mg 1X ONCE IV Last administered on 03/12/17 13:50; Start 03/12/17 at 13:30; Stop 03/12/17 at 13:33; Status DC Fentanyl Citrate (Fentanyl 2ml Vial) 100 mcg 1X ONCE IV Last administered on 03/12/17 13:50; Start 03/12/17 at 13:30; Stop 03/12/17 at 13:33; Status DC Lactobacillus Rhamnosus (Culturelle) 1 cap BID PO Last administered on 21:20; Start 03/12/17 at 21:00; Stop 03/25/17 at 21:06; Status DC Acetaminophen/ Hydrocodone Bitart (Lortab 7.5/325) 1 tab PRN Q6HRS PRN PO MODERATE - SEVERE PAIN Last administered on 03/31/17 06:23; Start 03/12/17 at 18:15 Ondansetron HCl (Zofran) 4 mg PRN Q6HRS PRN IV NAUSEA/VOMITING, 1ST CHOICE Last administered on 03/25/17 04:53; Start 03/13/17 at 09:00 Furosemide (Lasix) 40 mg QODAY PO Last administered on 03/22/17 09:39; Start 03/14/17 at 09:00; Stop 03/26/17 at 09:00; Status DC Glimepiride (Amaryl) 1 mg DAILY08 PO Last administered on 03/22/17 09:40; Start 03/14/17 at 08:00; Stop 03/23/17 at 08:52; Status DC Linezolid (Zyvox) 600 mg BID PO Last administered on 03/24/17 21:20; Start 03/14/17 at 13:15; Stop 03/25/17 at 10:49; Status DC Meropenem (Merrem) 500 mg Q8HRS IVP Last administered on 03/30/17 06:04; Start 03/16/17 at 14:00; Stop 03/30/17 at 07:49; Status DC Iohexol (Omnipaque 240 Mg/ml) 50 ml STK-MED ONCE .ROUTE ; Start 03/19/17 at 13: 11; Stop 03/19/17 at 13:12; Status DC Iohexol (Omnipaque 240 Mg/ml) 10 ml 1X ONCE IJ Last administered on 14:07; Start 03/19/17 at 14:00; Stop 03/19/17 at 14:01; Status DC Info (Do NOT chart on this entry -- for MONITORING) 1 each PRN DAILY PRN MC SEE COMMENTS; Start 03/19/17 at 14:00; Stop 03/21/17 at 13:59; Status DC Iohexol (Omnipaque 240 Mg/ml) 50 ml STK-MED ONCE .ROUTE ; Start 03/19/17 at 13: 55; Stop 03/19/17 at 13:56; Status DC Fluconazole (Diflucan) 200 mg DAILY PO Last administered on 03/23/17 09:24; Start 03/22/17 at 09:30; Stop 03/25/17 at 10:51; Status DC Metoprolol Succinate (Toprol Xl) 12.5 mg DAILY PO Last administered on 10:00; Start 03/23/17 at 09:00 Glimepiride (Amaryl) 0.5 mg DAILY08 PO ; Start 03/24/17 at 08:00; Stop at 13:05; Status DC Morphine Sulfate 1 mg PRN Q10MIN PRN IV SEVERE PAIN; Start 03/26/17 at 07:00; Stop 03/26/17 at 07:00; Status DC Ringer's Solution 1,000 ml @ 30 mls/hr Q24H IV ; Start 03/26/17 at 07:00; Stop 03/26/17 at 07:00; Status DC Lidocaine HCl (Xylocaine-Mpf 1% Vial) 2 ml PRN 1X PRN ID PRIOR TO IV START; Start 03/26/17 at 07:00; Stop 03/26/17 at 07:00; Status DC Hydromorphone HCl (Dilaudid) 0.5 mg PRN Q10MIN PRN IV SEV PAIN, Second choice; Start 03/26/17 at 07:00; Stop 03/27/17 at 06:59; Status Cancel Prochlorperazine Edisylate (Compazine) 5 mg PACU PRN PRN IV NAUSEA, MRX1 Last administered on 03/25/17 07:45; Start 03/26/17 at 07:00; Stop 03/26/17 at 07 :00; Status DC Morphine Sulfate 1 mg PRN Q10MIN PRN IV SEVERE PAIN; Start 03/24/17 at 07:45; Stop 03/25/17 at 07:44; Status DC Ringer's Solution 1,000 ml @ 30 mls/hr Q24H IV Last administered on 14:15; Start 03/24/17 at 07:32; Stop 03/24/17 at 19:31; Status DC Lidocaine HCl (Xylocaine-Mpf 1% Vial) 2 ml 1X PRN PRN ID IV START; Start 03/24 at 07:45; Stop 03/25/17 at 07:44; Status DC Hydromorphone HCl (Dilaudid) 0.5 mg PRN Q10MIN PRN IV SEV PAIN, Second choice; Start 03/24/17 at 07:45; Stop 03/25/17 at 07:44; Status DC Prochlorperazine Edisylate (Compazine) 5 mg PACU PRN PRN IV NAUSEA, MRX1; Start 03/24/17 at 07:45; Stop 03/25/17 at 07:44; Status DC Bupivacaine HCl/ Epinephrine Bitart (Sensorcain-Mpf Epi 0.5%-1:[id number]) 30 ml STK -MED ONCE .ROUTE Last administered on 03/24/17 15:56; Start 03/24/17 at 10: 28; Stop 03/24/17 at 10:29; Status DC Neostigmine Methylsulfate (Bloxiverz) 10 mg STK-MED ONCE .ROUTE ; Start at 14:38; Stop 03/24/17 at 14:39; Status DC Rocuronium [place] (Zemuron) 50 mg STK-MED ONCE .ROUTE ; Start 03/24/17 at 14: 38; Stop 03/24/17 at 14:39; Status DC Fentanyl Citrate (Fentanyl 2ml Vial) 100 mcg STK-MED ONCE .ROUTE ; Start at 14:38; Stop 03/24/17 at 14:39; Status DC Phenylephrine HCl 1 mg STK-MED ONCE IV ; Start 03/24/17 at 14:40; Stop at 14:41; Status DC Lidocaine HCl (Lidocaine Pf 2% Vial) 5 ml STK-MED ONCE .ROUTE ; Start 03/24/17 at 14:40; Stop 03/24/17 at 14:41; Status DC Dexamethasone Sodium Phosphate (Decadron) 20 mg STK-MED ONCE .ROUTE ; Start at 14:40; Stop 03/24/17 at 14:41; Status DC Ondansetron HCl (Zofran) 4 mg STK-MED ONCE .ROUTE ; Start 03/24/17 at 14:40; Stop 03/24/17 at 14:41; Status DC Propofol 20 ml @ As Directed STK-MED ONCE IV ; Start 03/24/17 at 14:40; Stop 03/24/17 at 14:41; Status DC Glycopyrrolate (Robinul) 1 mg STK-MED ONCE .ROUTE ; Start 03/24/17 at 15:11; Stop 03/24/17 at 15:12; Status DC Rocuronium [place] (Zemuron) 50 mg STK-MED ONCE .ROUTE ; Start 03/24/17 at 15: 53; Stop 03/24/17 at 15:54; Status DC Fentanyl Citrate (Fentanyl 2ml Vial) 100 mcg STK-MED ONCE .ROUTE ; Start at 16:01; Stop 03/24/17 at 16:02; Status DC Morphine Sulfate 10 mg STK-MED ONCE .ROUTE ; Start 03/24/17 at 16:02; Stop at 16:03; Status DC Albumin Human 500 ml @ As Directed STK-MED ONCE IV ; Start 03/24/17 at 17:03; Stop 03/24/17 at 17:04; Status DC Phenylephrine HCl ([place]y-Synephrine Inj) 10 mg STK-MED ONCE .ROUTE ; Start at 17:27; Stop 03/24/17 at 17:28; Status DC Rocuronium [place] (Zemuron) 100 mg STK-MED ONCE .ROUTE ; Start 03/24/17 at 17: 57; Stop 03/24/17 at 17:58; Status DC Enoxaparin Sodium (Lovenox 40mg Syringe) 40 mg Q24H SQ Last administered on 20:51; Start 03/24/17 at 20:45; Stop 03/26/17 at 19:34; Status DC Sodium Chloride (Normal Saline Flush) 3 ml QSHIFT PRN IV AFTER MEDS AND BLOOD DRAWS; Start 03/24/17 at 20:45 Ringer's Solution 1,000 ml @ 100 mls/hr Q10H IV Last administered on 12:32; Start 03/24/17 at 20:43; Stop 03/25/17 at 16:52; Status DC Naloxone HCl (Narcan) 0.4 mg PRN Q2MIN PRN IV SEE INSTRUCTIONS; Start at 20:45 Sodium Chloride 1,000 ml @ 25 mls/hr Q24H IV Last administered on 03/27/17 12:08; Start 03/24/17 at 20:43 Hydromorphone HCl 30 ml @ 0 mls/hr CONT PRN PRN IV PROTOCOL Last administered on 03/24/17 23:16; Start 03/24/17 at 20:45 Prochlorperazine Edisylate (Compazine) 5 mg PRN Q4HRS PRN IV NAUSEA/VOMITING, 2ND CHOICE; Start 03/25/17 at 07:45 Pantoprazole Sodium (Protonix Vial) 40 mg DAILYAC IVP Last administered on 09:01; Start 03/25/17 at 10:15 Linezolid 300 ml @ 300 mls/hr Q12HR IV Last administered on 03/26/17 20:54; Start 03/25/17 at 11:00; Stop 03/27/17 at 08:05; Status DC Fluconazole/ Sodium Chloride 100 ml @ 100 mls/hr Q24H IV Last administered on 03/30/17 12:50; Start 03/25/17 at 11:00 Dextrose/Lactated Ringer's 1,000 ml @ 150 mls/hr Q6H40M IV Last administered on 03/31/17 03:28; Start 03/25/17 at 17:00 Famotidine (Pepcid Vial) 40 mg QHS IVP Last administered on 03/28/17 21:35; Start 03/25/17 at 21:00; Stop 03/29/17 at 08:02; Status DC Lorazepam (Ativan) 0.5 mg 1X ONCE IV ; Start 03/26/17 at 07:00; Stop at 07:01; Status Cancel Lorazepam (Ativan) 0.5 mg PRN Q8HRS PRN PO ANXIETY / AGITATION; Start at 07:00; Status Cancel Furosemide (Lasix) 40 mg 1X ONCE IVP Last administered on 03/26/17 09:54; Start 03/26/17 at 09:00; Stop 03/26/17 at 09:01; Status DC Furosemide (Lasix) 20 mg DAILY IVP Last administered on 03/30/17 09:29; Start 03/27/17 at 09:00 Digoxin (Lanoxin) 250 mcg 1X ONCE IV Last administered on 03/26/17 15:06; Start 03/26/17 at 15:15; Stop 03/26/17 at 15:16; Status DC Iohexol (Omnipaque 300 Mg/ml) 75 ml 1X ONCE IV Last administered on 16:41; Start 03/26/17 at 16:45; Stop 03/26/17 at 16:46; Status DC Info (Do NOT chart on this entry -- for MONITORING) 1 each PRN DAILY PRN MC SEE COMMENTS; Start 03/26/17 at 16:45; Stop 03/28/17 at 16:44; Status DC Norepinephrine Bitartrate 250 ml @ As Directed STK-MED ONCE IV ; Start at 17:42; Stop 03/26/17 at 17:43; Status DC Norepinephrine Bitartrate 250 ml @ 0 mls/hr CONT PRN IV SEE I/O RECORD Last administered on 03/26/17 18:01; Start 03/26/17 at 18:00 Enoxaparin Sodium (Lovenox Per Pharmacy Treatment Dosing) 1 each PRN DAILY PRN MC SEE COMMENTS; Start 03/26/17 at 19:30; Stop 03/28/17 at 12:38; Status DC Enoxaparin Sodium (Lovenox 80mg Syringe) 80 mg Q12HR SQ Last administered on 21:51; Start 03/26/17 at 20:00; Stop 03/28/17 at 15:36; Status DC Daptomycin 460 mg/ Sodium Chloride 50 ml @ 100 mls/hr Q24H IV Last administered on 03/30/17 10:51; Start 03/27/17 at 09:00 Digoxin (Lanoxin) 250 mcg 1X ONCE IV Last administered on 03/27/17 12:09; Start 03/27/17 at 12:00; Stop 03/27/17 at 12:01; Status DC Insulin Detemir (Levemir) 5 units QHS SQ Last administered on 03/30/17 21:07 ; Start 03/27/17 at 21:00 Albumin Human 100 ml @ 100 mls/hr Q8H IV Last administered on 03/29/17 00:42 ; Start 03/28/17 at 09:00; Stop 03/29/17 at 01:59; Status DC Lorazepam (Ativan) 1 mg PRN Q6HRS PRN PO ANXIETY / AGITATION Last administered on 03/30/17 17:43; Start 03/28/17 at 16:00 Iohexol (Omnipaque 300 Mg/ml) 75 ml 1X ONCE IV Last administered on 16:00; Start 03/28/17 at 16:00; Stop 03/28/17 at 16:02; Status DC Info (Do NOT chart on this entry -- for MONITORING) 1 each PRN DAILY PRN MC SEE COMMENTS; Start 03/28/17 at 16:15; Stop 03/30/17 at 16:14; Status DC Fentanyl Citrate (Fentanyl 2ml Vial) 50 mcg PRN Q4HRS PRN IV PAIN Last administered on 03/31/17 09:10; Start 03/29/17 at 09:45 Ciprofloxacin/ Dextrose 200 ml @ 200 mls/hr Q12HR IV Last administered on 08:59; Start 03/30/17 at 09:00 Lorazepam (Ativan) 0.5 mg Q12HR PO Last administered on 03/31/17 08:59; Start 03/30/17 at 21:00 Active Scripts Active Reported Flagyl (Metronidazole) 500 Mg Tablet 1 Tab PO BID Cefpodoxime Proxetil 200 Mg Tablet 1 Tab PO BID Ferrous Sulfate 325 Mg Tablet 1 Tab PO DAILY Lasix (Furosemide) 40 Mg Tablet 40 Mg PO QODAY Potassium Chloride 10 Meq Capsule.er 10 Meq PO QODAY Metoprolol Tartrate 25 Mg Tablet 12.5 Mg PO BID Atorvastatin Calcium 40 Mg Tablet 40 Mg PO HS Clopidogrel (Clopidogrel Bisulfate) 75 Mg Tablet 1 Tab PO DAILY Diclofenac Sodium 75 Mg Tablet.dr 75 Mg PO DAILY Ranitidine Hcl 150 Mg Tablet 1 Tab PO BID Aspirin 81 Mg Tab.chew 1 Tab PO DAILY Vitals/I & O Vital Sign - Last 24 Hours 03/30/17 03/30/17 03/30/17 03/30/17 11:47 12:00 12:00 12:00 Temp 98.3 98.3 Pulse 108 Resp 22 B/P (MAP) 106/46 (66) Pulse Ox 100 100 O2 Delivery BiPAP/CPAP BiPAP/CPAP Bi-pap O2 Flow Rate 3.0 3.0 03/30/17 03/30/17 03/30/17 03/30/17 13:00 14:00 15:00 15:56 Pulse 96 96 90 Resp 22 30 30 B/P (MAP) 106/56 (73) 76/39 (51) 64/52 (56) Pulse Ox 100 99 99 100 O2 Delivery BiPAP/CPAP BiPAP/CPAP BiPAP/CPAP BiPAP/CPAP 03/30/17 03/30/17 03/30/17 03/30/17 16:00 16:00 16:00 17:00 Temp 98.1 98.1 Pulse 108 112 Resp 30 25 B/P (MAP) 91/45 (60) 89/32 (51) Pulse Ox 99 99 O2 Delivery Bi-pap BiPAP/CPAP BiPAP/CPAP O2 Flow Rate 3.0 3.0 03/30/17 03/30/17 03/30/1703/30/17 18:00 18:09 18:40 19:00 Pulse 120 122 Resp 25 B/P (MAP) 99/57 (71) 108/60 (76) Pulse Ox 100 100 100 100 O2 Delivery Nasal Cannula Nasal Cannula Nasal Cannula O2 Flow Rate 4.0 4.0 4.0 4.0 03/30/17 03/30/17 03/30/17 03/30/17 19:43 20:00 20:00 20:00 Temp 98.7 98.7 Pulse 84 Resp 29 B/P (MAP) 85/55 (65) Pulse Ox 99 100 O2 Delivery BiPAP/CPAP Bi-pap Nasal Cannula O2 Flow Rate 3.0 3.0 4.0 03/30/17 03/30/17 03/30/17 03/30/17 21:00 21:50 22:00 23:00 Pulse 110 90 91 Resp 29 29 29 B/P (MAP) 85/40 (55) 89/45 (60) 81/45 (57) Pulse Ox 99 99 100 100 O2 Delivery BiPAP/CPAP BiPAP/CPAP BiPAP/CPAP BiPAP/CPAP 03/30/17 03/30/17 03/30/17 03/30/17 23:50 23:59 23:59 23:59 Temp 98.8 98.8 Pulse 93 Resp 29 B/P (MAP) 87/47 (60) Pulse Ox 99 100 O2 Delivery BiPAP/CPAP Bi-pap BiPAP/CPAP O2 Flow Rate 3.0 3.0 03/31/17 03/31/17 03/31/17 03/31/17 01:00 01:14 02:00 03:00 Pulse 110 99 102 Resp 32 31 31 B/P (MAP) 101/50 (67) 108/56 (73) 85/40 (55) Pulse Ox 100 99 100 99 O2 Delivery BiPAP/CPAP BiPAP/CPAP BiPAP/CPAP BiPAP/CPAP 03/31/17 03/31/17 03/31/17 03/31/17 03:32 04:00 04:00 04:00 Temp 98.7 98.7 Pulse 102 Resp 32 B/P (MAP) 93/56 (68) Pulse Ox 98 100 O2 Delivery BiPAP/CPAP Bi-pap BiPAP/CPAP O2 Flow Rate 3.0 3.0 03/31/17 03/31/17 03/31/17 03/31/17 05:00 05:20 06:00 06:23 Pulse 98 103 Resp 31 31 35 B/P (MAP) 86/48 (61) 93/63 (73) Pulse Ox 98 99 98 98 O2 Delivery BiPAP/CPAP BiPAP/CPAP BiPAP/CPAP BiPAP/CPAP O2 Flow Rate 3.0 03/31/17 03/31/17 03/31/17 03/31/17 07:00 07:00 08:00 08:05 Temp 98.4 98.4 98.4 98.4 Pulse 104 111 99 Resp 26 B/P (MAP) 83/55 (64) 83/55 (64) 72/58 (63) Pulse Ox 96 99 100 O2 Delivery BiPAP/CPAP BiPAP/CPAP BiPAP/CPAP Bi-pap O2 Flow Rate 5.0 03/31/17 03/31/17 03/31/17 03/31/17 08:28 09:00 09:10 09:13 Pulse 93 Resp 26 B/P (MAP) 105/55 (72) Pulse Ox 100 99 99 99 O2 Delivery BiPAP/CPAP Nasal Cannula Nasal Cannula BiPAP/CPAP O2 Flow Rate 5.0 5.0 03/31/17 10:00 Pulse 89 B/P (MAP) 105/55 Intake and Output 03/30/17 03/30/17 03/31/17 15:00 23:00 07:00 Intake Total 2028 ml 750 ml Output Total 520 ml 465 ml 245 ml Balance -520 ml 1563 ml 505 ml DES CARDONA MD Mar 31, 2017 11:06
[2017-03-31] MEDS: NORMAL SALINE IV SCH (11:08)
[2017-03-31] MEDS: DAPTOMYCIN IV SCH (11:08)
--- NOTE | 2017-03-31 11:26 | PDOC ---
Infectious Disease Note Subjective Subjective c/p some abdominal pain, no N/V O2 5LNC Denies SOA/CP ROS ROS GEN: Denies fevers, chills, sweats Vital Sign Vital Signs Vital Signs Date Time Temp Pulse Resp B/P (MAP) Pulse Ox O2 Delivery O2 Flow Rate FiO2 03/31/17 10:00 89 105/55 03/31/17 09:13 26 99 BiPAP/CPAP 03/31/17 09:10 5.0 03/31/17 07:00 98.4 98.4 Physical Exam PHYSICAL EXAM GENERAL: Sleepy, weak appearing, in chair HEENT: PERRL, Oral cavity dry LUNGS: Clear anteriorly HEART: S1S2, irregular ABD: BS active, soft, distal end midline incision dehisced, dressing wet; ostomy + output : [place] EXT: Generalized edema 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 clean Labs Lab Laboratory Tests Test 03/30/17 11:15 03/30/17 21:04 03/31/17 06:30 03/31/17 08:18 Prothrombin Time 14.7 SEC (11.7-14.0) Prothromb Time International Ratio 1.2 (0.8-1.1) Activated Partial Thromboplast Time 27 SEC (24-38) Fibrinogen 556 mg/dL (200-440) Glucose (Fingerstick) 158 mg/dL (70-99) 170 mg/dL (70-99) White Blood Count 4.7 x10^3/uL (4.0-11.0) Red Blood Count 3.16 x10^6/uL (3.50-5.40) Hemoglobin 9.0 g/dL (12.0-15.5) Hematocrit 27.5 % (36.0-47.0) Mean Corpuscular Volume 87 fL (79-100) Mean Corpuscular Hemoglobin 29 pg (25-35) Mean Corpuscular Hemoglobin Concent 33 g/dL (31-37) Red Cell Distribution Width 17.3 % (11.5-14.5) Platelet Count 39 x10^3/uL (140-400) Neutrophils (%) (Auto) 61 % (31-73) Lymphocytes (%) (Auto) 25 % (24-48) Monocytes (%) (Auto) 13 % (0-9) Eosinophils (%) (Auto) 1 % (0-3) Basophils (%) (Auto) 0 % (0-3) Neutrophils # (Auto) 2.9 x10^3uL (1.8-7.7) Lymphocytes # (Auto) 1.2 x10^3/uL (1.0-4.8) Monocytes # (Auto) 0.6 x10^3/uL (0.0-1.1) Eosinophils # (Auto) 0.1 x10^3/uL (0.0-0.7) Basophils # (Auto) 0.0 x10^3/uL (0.0-0.2) Micro ANAEROBIC RES 1 Final No anaerobic growth in 72 hours. AEROBIC RES 1 Final Klebsiella pneumoniae AEROBIC RES 2 Final Yeast AEROBIC RES 3 Final Vancomycin-resistant Enterococcus (Enterococcus faecium) AEROBIC RES 4 Final Pseudomonas aeruginosa Antibiotic RSLT#1 RSLT#2 RSLT#3 RSLT#4 Amikacin S Amoxicillin/Clavulanic Acid S Ampicillin R Cefepime S S Ceftazidime S Ceftriaxone S Cefuroxime I Ciprofloxacin S S Ertapenem S Gentamicin S S Imipenem S S Levofloxacin S S Linezolid S Meropenem S Penicillin R Piperacillin R S Quinupristin/Dalfopristin S Tetracycline S Ticarcillin R Tobramycin S S Trimethoprim/Sulfa S Vancomycin R JAZZMINE CULT RES 1 Final Letitia tropicalis Objective Assessment s/p lap converted to open exploration, JAIRO, removal of infected mesh, subtotal colectomy, SBR and hernia repair, 03/24 Leukocytosis, likely reactive, (Dexamethasone pre-op) EC fistula Fever - better Abdominal abscess, measuring 6.4 x 4.9 cm. s/p drain 03/12. Klebsiella ( R to Zosyn, S Cipro/Levo), VRE (R PCN) and PSAE ( R to ticarcillin only otherwise sensitive, S Cipro/Levo) and C tropicalis h/o Strep anginosis and Bacteroides Ventral hernia DM HTN PCN allergy/amox also - hives and swelling Thrombocytopenia Plan Plan of Care Cont Fluconazole and dapto Cipro (changed from meropenem on 03/30 for possible B lactam induced thrombocytopenia) f/u am labs PT/OT Patient seen examined. Chart reviewed in detail. Case discussed with [employer]. Agree with above SUBLETTE,SERAFIN Padilla APRN Mar 31, 2017 11:26 ROSA HARMAN MD Mar 31, 2017 17:56
[2017-03-31] MEDS: FLUCONAZOLE 200MG/100ML PREMIX 100 ML IV SCH (12:14)
--- NOTE | 2017-03-31 12:24 | PDOC ---
Provider Note Provider Note platelets up 39 K, rest ok, hb stable- will reduce iv ringers re chf, diet ordered- still dapto/cipro/flucon MILENA MCMILLAN MD Mar 31, 2017 12:24
--- NOTE | 2017-03-31 13:27 | RAD ---
Single view chest History:Tachypnea An AP view of the chest is submitted. Comparison: 03/26/2017. Findings: There are now small dependent pleural effusions greater on the right, some hazy airspace opacity of the lung bases greater on the right. Pericardial cardiac silhouette is somewhat enlarged as seen previously. There is again right upper extremity PICC with the tip near the cavoatrial junction. Previously seen enteric catheter has been removed. There is no pneumothorax. Impression: There are now small pleural effusions bilaterally greater on the right, also some hazy airspace opacity with basilar predominance which may be due to edema although infiltrate not excluded.
--- NOTE | 2017-03-31 15:36 | PDOC ---
PULMONARY PROGRESS NOTES Subjective PT WAS OFF BIPAP THIS AM Vitals Vital Signs Date Time Temp Pulse Resp B/P (MAP) Pulse Ox O2 Delivery O2 Flow Rate FiO2 03/31/17 15:24 Nasal Cannula 2.0 03/31/17 15:00 90 22 82/40 (54) 94 03/31/17 12:00 97.4 97.4 General: Alert Lungs: Crackles Cardiovascular: S1, S2 Abdomen: Soft, Non-tender Neuro Exam: Alert Extremities: No Edema Skin: Warm Labs Laboratory Tests Test 03/29/17 21:26 03/30/17 06:00 03/30/17 11:15 03/30/17 21:04 Glucose (Fingerstick) 164 mg/dL (70-99) 158 mg/dL (70-99) White Blood Count 3.6 x10^3/uL (4.0-11.0) Red Blood Count 2.98 x10^6/uL (3.50-5.40) Hemoglobin 8.8 g/dL (12.0-15.5) Hematocrit 26.3 % (36.0-47.0) Mean Corpuscular Volume 88 fL (79-100) Mean Corpuscular Hemoglobin 29 pg (25-35) Mean Corpuscular Hemoglobin Concent 33 g/dL (31-37) Red Cell Distribution Width 17.4 % (11.5-14.5) Platelet Count 18 x10^3/uL (140-400) Neutrophils (%) (Auto) 63 % (31-73) Lymphocytes (%) (Auto) 22 % (24-48) Monocytes (%) (Auto) 14 % (0-9) Eosinophils (%) (Auto) 1 % (0-3) Basophils (%) (Auto) 0 % (0-3) Neutrophils # (Auto) 2.3 x10^3uL (1.8-7.7) Lymphocytes # (Auto) 0.8 x10^3/uL (1.0-4.8) Monocytes # (Auto) 0.5 x10^3/uL (0.0-1.1) Eosinophils # (Auto) 0.0 x10^3/uL (0.0-0.7) Basophils # (Auto) 0.0 x10^3/uL (0.0-0.2) Prothrombin Time 14.7 SEC (11.7-14.0) Prothromb Time International Ratio 1.2 (0.8-1.1) Activated Partial Thromboplast Time 27 SEC (24-38) Fibrinogen 556 mg/dL (200-440) Test 03/31/17 06:30 03/31/17 08:18 03/31/17 11:55 White Blood Count 4.7 x10^3/uL (4.0-11.0) Red Blood Count 3.16 x10^6/uL (3.50-5.40) Hemoglobin 9.0 g/dL (12.0-15.5) Hematocrit 27.5 % (36.0-47.0) Mean Corpuscular Volume 87 fL (79-100) Mean Corpuscular Hemoglobin 29 pg (25-35) Mean Corpuscular Hemoglobin Concent 33 g/dL (31-37) Red Cell Distribution Width 17.3 % (11.5-14.5) Platelet Count 39 x10^3/uL (140-400) Neutrophils (%) (Auto) 61 % (31-73) Lymphocytes (%) (Auto) 25 % (24-48) Monocytes (%) (Auto) 13 % (0-9) Eosinophils (%) (Auto) 1 % (0-3) Basophils (%) (Auto) 0 % (0-3) Neutrophils # (Auto) 2.9 x10^3uL (1.8-7.7) Lymphocytes # (Auto) 1.2 x10^3/uL (1.0-4.8) Monocytes # (Auto) 0.6 x10^3/uL (0.0-1.1) Eosinophils # (Auto) 0.1 x10^3/uL (0.0-0.7) Basophils # (Auto) 0.0 x10^3/uL (0.0-0.2) Glucose (Fingerstick) 170 mg/dL (70-99) 138 mg/dL (70-99) Laboratory Tests Test 03/30/17 21:04 03/31/17 06:30 03/31/17 08:18 03/31/17 11:55 Glucose (Fingerstick) 158 mg/dL (70-99) 170 mg/dL (70-99) 138 mg/dL (70-99) White Blood Count 4.7 x10^3/uL (4.0-11.0) Red Blood Count 3.16 x10^6/uL (3.50-5.40) Hemoglobin 9.0 g/dL (12.0-15.5) Hematocrit 27.5 % (36.0-47.0) Mean Corpuscular Volume 87 fL (79-100) Mean Corpuscular Hemoglobin 29 pg (25-35) Mean Corpuscular Hemoglobin Concent 33 g/dL (31-37) Red Cell Distribution Width 17.3 % (11.5-14.5) Platelet Count 39 x10^3/uL (140-400) Neutrophils (%) (Auto) 61 % (31-73) Lymphocytes (%) (Auto) 25 % (24-48) Monocytes (%) (Auto) 13 % (0-9) Eosinophils (%) (Auto) 1 % (0-3) Basophils (%) (Auto) 0 % (0-3) Neutrophils # (Auto) 2.9 x10^3uL (1.8-7.7) Lymphocytes # (Auto) 1.2 x10^3/uL (1.0-4.8) Monocytes # (Auto) 0.6 x10^3/uL (0.0-1.1) Eosinophils # (Auto) 0.1 x10^3/uL (0.0-0.7) Basophils # (Auto) 0.0 x10^3/uL (0.0-0.2) Medications Active Scripts Medications Dose Route/Sig Max Daily Dose Days Date Category Flagyl (Metronidazole) 500 Mg Tablet 1 Tab PO BID 03/01/17 Reported Cefpodoxime Proxetil 200 Mg Tablet 1 Tab PO BID 03/01/17 Reported Ferrous Sulfate 325 Mg Tablet 1 Tab PO DAILY 02/23/17 Reported Lasix (Furosemide) 40 Mg Tablet 40 Mg PO QODAY 02/23/17 Reported Potassium Chloride 10 Meq Capsule.er 10 Meq PO QODAY 02/23/17 Reported Metoprolol Tartrate 25 Mg Tablet 12.5 Mg PO BID 01/31/17 Reported Atorvastatin Calcium 40 Mg Tablet 40 Mg PO HS 01/31/17 Reported Clopidogrel (Clopidogrel Bisulfate) 75 Mg Tablet 1 Tab PO DAILY 08/24/15 Reported Diclofenac Sodium 75 Mg Tablet.dr 75 Mg PO DAILY 12/21/14 Reported Ranitidine Hcl 150 Mg Tablet 1 Tab PO BID 12/21/14 Reported Aspirin 81 Mg Tab.chew 1 Tab PO DAILY 04/15/14 Reported Impression . 1. [id number] respiratory failure, expected status post surgical intervention. 2. Status post laparoscopic converted to open exploration for extensive lysis of adhesion, removal of old mesh, subtotal colectomy, small bowel resection and incisional hernia repair. 3. Obesity, body mass index of 35. 4. Leukocytosis. 5. Enterocutaneous fistula. 6. Fever. 7. Abdominal abscess. 8. Ventral hernia, status post repair. Plan . VENOUS DOPPLER NEGATIVE CT NEGATIVE FOR PE MONITOR PLATELET ANXIETY IS AN ISSUE WILL ADD SCHEDULED ATIVAN D/C LOVENOX NO PE ON CT OF CHEST CXR SLIGHTLY WORSE R EFFUSION IF PERSIST SHE MAY REQUIRE A THORACENTESIS IFEOMA SEXTON MD Mar 31, 2017 15:36
--- NOTE | 2017-03-31 16:57 | PDOC ---
CARDIOLOGY PROGRESS NOTE SUBJECTIVE: Reports mild abd pain. Denies chest pain. OBJECTIVE: Vital SIgns: Vital Signs Date Time Temp Pulse Resp B/P (MAP) Pulse Ox O2 Delivery O2 Flow Rate FiO2 03/31/17 16:00 99.0 70 20 90/39 (56) 95 BiPAP/CPAP 99.0 03/31/17 15:24 2.0 I & O Intake and Output 03/31/17 07:00 Intake Total 2778 ml Output Total 1230 ml Balance 1548 ml Intake Oral 400 ml IV Total 2378 ml Output Urine Total 1080 ml Stool Total 150 ml Objective: dry mouth bilateral lower and upper ext edema. regular heart rhythm. bibasilar rales. CURRENT MEDICATIONS: Current Medications Medications (Trade) Dose Ordered Sig/Michelle Start Time Stop Time Status Last Admin Dose Admin Acetaminophen (Tylenol) 650 mg PRN QID PRN 03/09/17 20:30 03/30/17 17:43 650 MG Acetaminophen/ Hydrocodone Bitart (Lortab 7.5/325) 1 tab PRN Q6HRS PRN 03/12/17 18:15 03/31/17 13:01 1 TAB Albumin Human 100 ml @ 100 mls/hr Q8H 03/28/17 09:00 03/29/17 01:59 DC 03/29/17 00:42 100 MLS/HR Aspirin (Children'S Aspirin) 81 mg DAILY 03/10/17 15:00 03/31/17 09:00 81 MG Bupivacaine HCl/ Epinephrine Bitart (Sensorcain-Mpf Epi 0.5%-[id number]) 30 ml STK-MED ONCE 03/24/17 10:28 03/24/17 10:29 DC 03/24/17 15:56 10 ML Ceftriaxone Sodium 50 ml @ 100 mls/hr 1X ONCE 03/09/17 09:30 03/09/17 09:55 DC Ciprofloxacin/ Dextrose 200 ml @ 200 mls/hr Q12HR 03/30/17 09:00 03/31/17 08:59 200 MLS/HR Clopidogrel Bisulfate (Plavix) 75 mg DAILY 03/10/17 15:00 03/22/17 09:10 DC 03/19/17 10:00 75 MG Daptomycin 460 mg/ Sodium Chloride 50 ml @ 100 mls/hr Q24H 03/27/17 09:00 03/31/17 11:08 100 MLS/HR Dexamethasone Sodium Phosphate (Decadron) 20 mg STK-MED ONCE 03/24/17 14:40 03/24/17 14:41 DC Dextrose/Lactated Ringer's 1,000 ml @ 75 mls/hr [id number] 03/25/17 17:00 03/31/17 12:13 150 MLS/HR Diclofenac Sodium (Voltaren) 75 mg DAILY 03/10/17 14:30 03/29/17 10:50 DC 03/23/17 09:23 75 MG Digoxin (Lanoxin) 250 mcg 1X ONCE 03/27/17 12:00 03/27/17 12:01 DC 03/27/17 12:09 250 MCG Dopamine HCl/ Dextrose 250 ml @ 15.155 mls/ hr CONT PRN 03/31/17 13:00 03/31/17 14:04 15.155 MLS/HR Enoxaparin Sodium (Lovenox 40mg Syringe) 40 mg Q24H 03/24/17 20:45 03/26/17 19:34 DC 03/25/17 20:51 40 MG Enoxaparin Sodium (Lovenox 80mg Syringe) 80 mg Q12HR 03/26/17 20:00 03/28/17 15:36 DC 03/27/17 21:51 80 MG Enoxaparin Sodium (Lovenox Per Pharmacy Treatment Dosing) 1 each PRN DAILY PRN 03/26/17 19:30 03/28/17 12:38 DC Famotidine (Pepcid Vial) 40 mg QHS 03/25/17 21:00 03/29/17 08:02 DC 03/28/17 21:35 40 MG Famotidine (Pepcid) 20 mg QHS 03/10/17 21:00 03/26/17 09:35 DC 03/24/17 21:20 20 MG Fentanyl Citrate (Fentanyl 2ml Vial) 50 mcg PRN Q4HRS PRN 03/29/17 09:45 03/31/17 09:10 50 MCG Ferrous Sulfate (Feosol) 325 mg DAILY 03/10/17 15:00 03/31/17 08:59 325 MG Fluconazole (Diflucan) 200 mg DAILY 03/22/17 09:30 03/25/17 10:51 DC 03/23/17 09:24 200 MG Fluconazole/ Sodium Chloride 100 ml @ 100 mls/hr Q24H 03/25/17 11:00 03/31/17 12:14 100 MLS/HR Flumazenil (Romazicon) 0.5 mg STK-MED ONCE 03/12/17 13:20 03/12/17 13:21 DC Furosemide (Lasix) 20 mg DAILY 03/27/17 09:00 03/31/17 12:22 DC 03/30/17 09:29 20 MG Glimepiride (Amaryl) 0.5 mg DAILY08 03/24/17 08:00 03/27/17 13:05 DC Glycopyrrolate (Robinul) 1 mg STK-MED ONCE 03/24/17 15:11 03/24/17 15:12 DC Hydromorphone HCl 30 ml @ 0 mls/hr CONT PRN PRN 03/24/17 20:45 03/24/17 23:16 0 MLS/HR Hydromorphone HCl (Dilaudid) 0.5 mg PRN Q10MIN PRN 03/24/17 07:45 03/25/17 07:44 DC Info (Do NOT chart on this entry -- for MONITORING) 1 each PRN DAILY PRN 03/28/17 16:15 03/30/17 16:14 DC Insulin Detemir (Levemir) 5 units QHS 03/27/17 21:00 03/30/17 21:07 5 UNITS Iohexol (Omnipaque 240 Mg/ml) 50 ml STK-MED ONCE 03/19/17 13:55 03/19/17 13:56 DC Iohexol (Omnipaque 300 Mg/ml) 75 ml 1X ONCE 03/28/17 16:00 03/28/17 16:02 DC 03/28/17 16:00 75 ML Lactobacillus Rhamnosus (Culturelle) 1 cap BID 03/12/17 21:00 03/25/17 21:06 DC 03/24/17 21:20 1 CAP Lidocaine HCl (Lidocaine Pf 2% Vial) 5 ml STK-MED ONCE 03/24/17 14:40 03/24/17 14:41 DC Lidocaine HCl (Xylocaine-Mpf 1% Vial) 2 ml 1X PRN PRN 03/24/17 07:45 03/25/17 07:44 DC Lidocaine/Sodium Bicarbonate (Buffered Lidocaine 1%) 20 ml 1X ONCE 03/12/17 13:30 03/12/17 13:33 DC 03/12/17 13:50 4 ML Linezolid 300 ml @ 300 mls/hr Q12HR 03/25/17 11:00 03/27/17 08:05 DC 03/26/17 20:54 300 MLS/HR Linezolid (Zyvox) 600 mg BID 03/14/17 13:15 03/25/17 10:49 DC 03/24/17 21:20 600 MG Lorazepam (Ativan) 0.5 mg Q12HR 03/30/17 21:00 03/31/17 08:59 0.5 MG Meropenem (Merrem) 500 mg Q8HRS 03/16/17 14:00 03/30/17 07:49 DC 03/30/17 06:04 500 MG Meropenem 500 mg/ Sodium Chloride 50 ml @ 100 mls/hr Q8HRS 03/09/17 13:00 03/16/17 12:59 DC 03/16/17 06:09 100 MLS/HR Metoprolol Succinate (Toprol Xl) 12.5 mg DAILY 03/23/17 09:00 03/31/17 10:00 12.5 MG Metoprolol Tartrate (Lopressor) 12.5 mg BID 03/10/17 15:00 03/10/17 21:01 DC 03/10/17 16:01 12.5 MG Midazolam HCl (Versed) 2 mg 1X ONCE 03/12/17 13:30 03/12/17 13:33 DC 03/12/17 13:50 1 MG Morphine Sulfate 10 mg STK-MED ONCE 03/24/17 16:02 03/24/17 16:03 DC Naloxone HCl (Narcan) 0.4 mg PRN Q2MIN PRN 03/24/17 20:45 Neostigmine Methylsulfate (Bloxiverz) 10 mg STK-MED ONCE 03/24/17 14:38 03/24/17 14:39 DC Norepinephrine Bitartrate 250 ml @ 0 mls/hr CONT PRN 03/26/17 18:00 03/26/17 18:01 9.4 MLS/HR Ondansetron HCl (Zofran) 4 mg STK-MED ONCE 03/24/17 14:40 03/24/17 14:41 DC Pantoprazole Sodium (Protonix Vial) 40 mg DAILYAC 03/25/17 10:15 03/31/17 09:01 40 MG Phenylephrine HCl (Corky-Synephrine Inj) 10 mg STK-MED ONCE 03/24/17 17:27 03/24/17 17:28 DC Prochlorperazine Edisylate (Compazine) 5 mg PRN Q4HRS PRN 03/25/17 07:45 Propofol 20 ml @ As Directed STK-MED ONCE 03/24/17 14:40 03/24/17 14:41 DC Ringer's Solution 1,000 ml @ 100 mls/hr Q10H 03/24/17 20:43 03/25/17 16:52 DC 03/25/17 12:32 100 MLS/HR Rocuronium [place] (Zemuron) 100 mg STK-MED ONCE 03/24/17 17:57 03/24/17 17:58 DC Sodium Chloride 1,000 ml @ 25 mls/hr Q24H 03/24/17 20:43 03/27/17 12:08 25 MLS/HR Sodium Chloride (Normal Saline Flush) 3 ml QSHIFT PRN 03/24/17 20:45 DIAGNOSTIC TESTING: Labs reviewed. ASSESSMENT: 1. Acute on chronic systolic/diastolic HF 2. Sepsis - resolving 3. Poor UOP 4. Ansarca Problems: PLAN: 1. Plan for trial of dopamine to see if this helps improve UOP. LEON RIVERA MD Mar 31, 2017 16:56
[2017-03-31 19:58] LABS: ALBUMIN 1.4 g/dL (3.4-5.0); ALBUMIN/GLOBULIN RATIO 0.4 (1.0-1.7); CALCIUM 8.4 mg/dL (8.5-10.1); CREATININE 0.6 mg/dL (0.6-1.0); GFR 98.5; POTASSIUM 3.5 mmol/L (3.5-5.1); TOTAL BILIRUBIN 0.5 mg/dL (0.2-1.0); TOTAL PROTEIN 4.6 g/dL (6.4-8.2)
[2017-03-31] MEDS: IV NORMAL SALINE 1000ML BAG 1,000 ML IV SCH (20:43)
[2017-03-31] MEDS: INSULIN DETEMIR 300 UNITS/3 ML INSULN.PEN. SQ SCH (20:48)
[2017-04-01] VITALS (25 sets, daily range): BP systolic 82–116; BP diastolic 39–76
[2017-04-01] MEDS: IV DEXTROSE 5%-LACT RINGERS 1,000 ML IV SCH ×2 (01:18→17:25)
[2017-04-01 07:03] LABS: BASO % 0 % (0-3); EOS % 1 % (0-3); HEMATOCRIT 27.4 % (36.0-47.0); HEMOGLOBIN 8.9 g/dL (12.0-15.5); LYMPH # 1.3 x10^3/uL (1.0-4.8); LYMPH % 20 % (24-48); MEAN CORPUSCULAR HEMOGLOBIN 29 pg (25-35); MEAN CORPUSCULAR HGB CONC 33 g/dL (31-37); MEAN CORPUSCULAR VOLUME 87 fL (79-100); MONO % 11 % (0-9); NEUT % 68 % (31-73); PLATELET COUNT 102 x10^3/uL (140-400); RED BLOOD COUNT 3.14 x10^6/uL (3.50-5.40); RED CELL DISTRIBUTION WIDTH 17.3 % (11.5-14.5); WHITE BLOOD COUNT 6.3 x10^3/uL (4.0-11.0)
[2017-04-01] MEDS: PANTOPRAZOLE IV PUSH 40 MG VIAL. IVP SCH (08:02)
[2017-04-01] MEDS: CIPROFLOXACIN 400MG PREMIX 200 ML IV SCH ×2 (08:03→20:48)
[2017-04-01] MEDS: ASPIRIN CHEWABLE 81 MG TABLET. PO SCH (08:14)
[2017-04-01] MEDS: fentaNYL PF VIAL 100 MCG/2 ML VIAL IV PRN (08:14)
[2017-04-01] MEDS: FERROUS SULFATE 325 MG TABLET. PO SCH (08:14)
[2017-04-01] MEDS: LORazepam 0.5 MG TABLET PO SCH ×2 (08:14→20:48)
[2017-04-01] MEDS: METOPROLOL SUCC 24HR ER 25 MG TAB.ER.24H. PO SCH (09:00)
[2017-04-01] MEDS: HYDROcodone/APAP 7.5/325MG 1 TAB TABLET PO PRN ×2 (09:14→17:51)
[2017-04-01] MEDS: DAPTOMYCIN IV SCH (09:14)
[2017-04-01] MEDS: NORMAL SALINE IV SCH (09:14)
--- NOTE | 2017-04-01 09:14 | PDOC ---
PULMONARY PROGRESS NOTES Subjective PT OFF BIPAP SIT UP ON CHAIR NO INCREASE SOA Vitals Vital Signs Date Time Temp Pulse Resp B/P (MAP) Pulse Ox O2 Delivery O2 Flow Rate FiO2 04/01/17 08:14 28 97 BiPAP/CPAP 04/01/17 08:00 97.4 106 84/55 (65) 3.0 97.4 General: Alert Lungs: Crackles Cardiovascular: S1, S2 Abdomen: Soft, Non-tender Neuro Exam: Alert Extremities: No Edema Skin: Warm Labs Laboratory Tests Test 03/30/17 11:15 03/30/17 21:04 03/31/17 06:30 03/31/17 08:18 Prothrombin Time 14.7 SEC (11.7-14.0) Prothromb Time International Ratio 1.2 (0.8-1.1) Activated Partial Thromboplast Time 27 SEC (24-38) Fibrinogen 556 mg/dL (200-440) Glucose (Fingerstick) 158 mg/dL (70-99) 170 mg/dL (70-99) White Blood Count 4.7 x10^3/uL (4.0-11.0) Red Blood Count 3.16 x10^6/uL (3.50-5.40) Hemoglobin 9.0 g/dL (12.0-15.5) Hematocrit 27.5 % (36.0-47.0) Mean Corpuscular Volume 87 fL (79-100) Mean Corpuscular Hemoglobin 29 pg (25-35) Mean Corpuscular Hemoglobin Concent 33 g/dL (31-37) Red Cell Distribution Width 17.3 % (11.5-14.5) Platelet Count 39 x10^3/uL (140-400) Neutrophils (%) (Auto) 61 % (31-73) Lymphocytes (%) (Auto) 25 % (24-48) Monocytes (%) (Auto) 13 % (0-9) Eosinophils (%) (Auto) 1 % (0-3) Basophils (%) (Auto) 0 % (0-3) Neutrophils # (Auto) 2.9 x10^3uL (1.8-7.7) Lymphocytes # (Auto) 1.2 x10^3/uL (1.0-4.8) Monocytes # (Auto) 0.6 x10^3/uL (0.0-1.1) Eosinophils # (Auto) 0.1 x10^3/uL (0.0-0.7) Basophils # (Auto) 0.0 x10^3/uL (0.0-0.2) Test 03/31/17 11:55 03/31/17 18:45 03/31/17 20:46 04/01/17 06:40 Glucose (Fingerstick) 138 mg/dL (70-99) 154 mg/dL (70-99) Sodium Level 137 mmol/L (136-145) Potassium Level 3.5 mmol/L (3.5-5.1) Chloride Level 105 mmol/L (98-107) Carbon Dioxide Level 29 mmol/L (21-32) Anion Gap 3 (6-14) Blood Urea Nitrogen 12 mg/dL (7-20) Creatinine 0.6 mg/dL (0.6-1.0) Estimated GFR (Cockcroft-Gault) 98.5 BUN/Creatinine Ratio 20 (6-20) Glucose Level 154 mg/dL (70-99) Calcium Level 8.4 mg/dL (8.5-10.1) Total Bilirubin 0.5 mg/dL (0.2-1.0) Aspartate Amino Transf (AST/SGOT) 22 U/L (15-37) Alanine Aminotransferase (ALT/SGPT) 14 U/L (14-59) Alkaline Phosphatase 83 U/L (46-116) Total Protein 4.6 g/dL (6.4-8.2) Albumin 1.4 g/dL (3.4-5.0) Albumin/Globulin Ratio 0.4 (1.0-1.7) White Blood Count 6.3 x10^3/uL (4.0-11.0) Red Blood Count 3.14 x10^6/uL (3.50-5.40) Hemoglobin 8.9 g/dL (12.0-15.5) Hematocrit 27.4 % (36.0-47.0) Mean Corpuscular Volume 87 fL (79-100) Mean Corpuscular Hemoglobin 29 pg (25-35) Mean Corpuscular Hemoglobin Concent 33 g/dL (31-37) Red Cell Distribution Width 17.3 % (11.5-14.5) Platelet Count 102 x10^3/uL (140-400) Neutrophils (%) (Auto) 68 % (31-73) Lymphocytes (%) (Auto) 20 % (24-48) Monocytes (%) (Auto) 11 % (0-9) Eosinophils (%) (Auto) 1 % (0-3) Basophils (%) (Auto) 0 % (0-3) Neutrophils # (Auto) 4.3 x10^3uL (1.8-7.7) Lymphocytes # (Auto) 1.3 x10^3/uL (1.0-4.8) Monocytes # (Auto) 0.7 x10^3/uL (0.0-1.1) Eosinophils # (Auto) 0.1 x10^3/uL (0.0-0.7) Basophils # (Auto) 0.0 x10^3/uL (0.0-0.2) Laboratory Tests Test 03/31/17 11:55 03/31/17 18:45 03/31/17 20:46 04/01/17 06:40 Glucose (Fingerstick) 138 mg/dL (70-99) 154 mg/dL (70-99) Sodium Level 137 mmol/L (136-145) Potassium Level 3.5 mmol/L (3.5-5.1) Chloride Level 105 mmol/L (98-107) Carbon Dioxide Level 29 mmol/L (21-32) Anion Gap 3 (6-14) Blood Urea Nitrogen 12 mg/dL (7-20) Creatinine 0.6 mg/dL (0.6-1.0) Estimated GFR (Cockcroft-Gault) 98.5 BUN/Creatinine Ratio 20 (6-20) Glucose Level 154 mg/dL (70-99) Calcium Level 8.4 mg/dL (8.5-10.1) Total Bilirubin 0.5 mg/dL (0.2-1.0) Aspartate Amino Transf (AST/SGOT) 22 U/L (15-37) Alanine Aminotransferase (ALT/SGPT) 14 U/L (14-59) Alkaline Phosphatase 83 U/L (46-116) Total Protein 4.6 g/dL (6.4-8.2) Albumin 1.4 g/dL (3.4-5.0) Albumin/Globulin Ratio 0.4 (1.0-1.7) White Blood Count 6.3 x10^3/uL (4.0-11.0) Red Blood Count 3.14 x10^6/uL (3.50-5.40) Hemoglobin 8.9 g/dL (12.0-15.5) Hematocrit 27.4 % (36.0-47.0) Mean Corpuscular Volume 87 fL (79-100) Mean Corpuscular Hemoglobin 29 pg (25-35) Mean Corpuscular Hemoglobin Concent 33 g/dL (31-37) Red Cell Distribution Width 17.3 % (11.5-14.5) Platelet Count 102 x10^3/uL (140-400) Neutrophils (%) (Auto) 68 % (31-73) Lymphocytes (%) (Auto) 20 % (24-48) Monocytes (%) (Auto) 11 % (0-9) Eosinophils (%) (Auto) 1 % (0-3) Basophils (%) (Auto) 0 % (0-3) Neutrophils # (Auto) 4.3 x10^3uL (1.8-7.7) Lymphocytes # (Auto) 1.3 x10^3/uL (1.0-4.8) Monocytes # (Auto) 0.7 x10^3/uL (0.0-1.1) Eosinophils # (Auto) 0.1 x10^3/uL (0.0-0.7) Basophils # (Auto) 0.0 x10^3/uL (0.0-0.2) Medications Active Scripts Medications Dose Route/Sig Max Daily Dose Days Date Category Flagyl (Metronidazole) 500 Mg Tablet 1 Tab PO BID 03/01/17 Reported Cefpodoxime Proxetil 200 Mg Tablet 1 Tab PO BID 03/01/17 Reported Ferrous Sulfate 325 Mg Tablet 1 Tab PO DAILY 02/23/17 Reported Lasix (Furosemide) 40 Mg Tablet 40 Mg PO QODAY 02/23/17 Reported Potassium Chloride 10 Meq Capsule.er 10 Meq PO QODAY 02/23/17 Reported Metoprolol Tartrate 25 Mg Tablet 12.5 Mg PO BID 01/31/17 Reported Atorvastatin Calcium 40 Mg Tablet 40 Mg PO HS 01/31/17 Reported Clopidogrel (Clopidogrel Bisulfate) 75 Mg Tablet 1 Tab PO DAILY 08/24/15 Reported Diclofenac Sodium 75 Mg Tablet.dr 75 Mg PO DAILY 12/21/14 Reported Ranitidine Hcl 150 Mg Tablet 1 Tab PO BID 12/21/14 Reported Aspirin 81 Mg Tab.chew 1 Tab PO DAILY 04/15/14 Reported Impression . 1. [id number] respiratory failure, expected status post surgical intervention. 2. Status post laparoscopic converted to open exploration for extensive lysis of adhesion, removal of old mesh, subtotal colectomy, small bowel resection and incisional hernia repair. 3. Obesity, body mass index of 35. 4. Leukocytosis. 5. Enterocutaneous fistula. 6. Fever. 7. Abdominal abscess. 8. Ventral hernia, status post repair. CXR 03/31 Impression: There are now small pleural effusions bilaterally greater on the right, also some hazy airspace opacity with basilar predominance which may be due to edema although infiltrate not excluded. Plan . CXR, MAY NEED A THORACENTESIS VENOUS DOPPLER NEGATIVE CT NEGATIVE FOR PE MONITOR PLATELET ANXIETY IS AN ISSUE WILL ADD SCHEDULED ATIVAN D/C LOVENOX NO PE ON CT OF CHEST IFEOMA SEXTON MD Apr 01, 2017 09:14
--- NOTE | 2017-04-01 09:48 | PDOC ---
Provider Note Provider Note d/w son- platelets recovered, albumin lower 1.4- likely will need tpn, bp better on pressor - MILENA MCMILLAN MD Apr 01, 2017 09:48
--- NOTE | 2017-04-01 11:08 | PDOC ---
Infectious Disease Note Subjective Subjective More comfortable and feeling better today Strength slowly improving O2 4LNC Denies SOA/CP Denies muscle aches ROS ROS GEN: Denies fevers, chills, sweats GI: Denies n/v Vital Sign Vital Signs Vital Signs Date Time Temp Pulse Resp B/P (MAP) Pulse Ox O2 Delivery O2 Flow Rate FiO2 04/01/17 10:15 98 26 91/56 (68) 99 Nasal Cannula 3.0 04/01/17 08:00 97.4 97.4 Physical Exam PHYSICAL EXAM GENERAL: More alert, in chair, NAD HEENT: PERRL, Oral cavity dry LUNGS: Clear anteriorly HEART: S1S2, irregular ABD: BS active, soft, distal end midline incision dehisced; ostomy + output : [place] EXT: Generalized edema CALL OR CONTACT CENTRE OPERATOR: Oriented, follows commands SKIN: No rash RUE-PICC. clean Labs Lab Laboratory Tests Test 03/31/17 11:55 03/31/17 18:45 03/31/17 20:46 04/01/17 06:40 Glucose (Fingerstick) 138 mg/dL (70-99) 154 mg/dL (70-99) Sodium Level 137 mmol/L (136-145) Potassium Level 3.5 mmol/L (3.5-5.1) Chloride Level 105 mmol/L (98-107) Carbon Dioxide Level 29 mmol/L (21-32) Anion Gap 3 (6-14) Blood Urea Nitrogen 12 mg/dL (7-20) Creatinine 0.6 mg/dL (0.6-1.0) Estimated GFR (Cockcroft-Gault) 98.5 BUN/Creatinine Ratio 20 (6-20) Glucose Level 154 mg/dL (70-99) Calcium Level 8.4 mg/dL (8.5-10.1) Total Bilirubin 0.5 mg/dL (0.2-1.0) Aspartate Amino Transf (AST/SGOT) 22 U/L (15-37) Alanine Aminotransferase (ALT/SGPT) 14 U/L (14-59) Alkaline Phosphatase 83 U/L (46-116) Total Protein 4.6 g/dL (6.4-8.2) Albumin 1.4 g/dL (3.4-5.0) Albumin/Globulin Ratio 0.4 (1.0-1.7) White Blood Count 6.3 x10^3/uL (4.0-11.0) Red Blood Count 3.14 x10^6/uL (3.50-5.40) Hemoglobin 8.9 g/dL (12.0-15.5) Hematocrit 27.4 % (36.0-47.0) Mean Corpuscular Volume 87 fL (79-100) Mean Corpuscular Hemoglobin 29 pg (25-35) Mean Corpuscular Hemoglobin Concent 33 g/dL (31-37) Red Cell Distribution Width 17.3 % (11.5-14.5) Platelet Count 102 x10^3/uL (140-400) Neutrophils (%) (Auto) 68 % (31-73) Lymphocytes (%) (Auto) 20 % (24-48) Monocytes (%) (Auto) 11 % (0-9) Eosinophils (%) (Auto) 1 % (0-3) Basophils (%) (Auto) 0 % (0-3) Neutrophils # (Auto) 4.3 x10^3uL (1.8-7.7) Lymphocytes # (Auto) 1.3 x10^3/uL (1.0-4.8) Monocytes # (Auto) 0.7 x10^3/uL (0.0-1.1) Eosinophils # (Auto) 0.1 x10^3/uL (0.0-0.7) Basophils # (Auto) 0.0 x10^3/uL (0.0-0.2) Micro ANAEROBIC RES 1 Final No anaerobic growth in 72 hours. AEROBIC RES 1 Final Klebsiella pneumoniae AEROBIC RES 2 Final Yeast AEROBIC RES 3 Final Vancomycin-resistant Enterococcus (Enterococcus faecium) AEROBIC RES 4 Final Pseudomonas aeruginosa Antibiotic RSLT#1 RSLT#2 RSLT#3 RSLT#4 Amikacin S Amoxicillin/Clavulanic Acid S Ampicillin R Cefepime S S Ceftazidime S Ceftriaxone S Cefuroxime I Ciprofloxacin S S Ertapenem S Gentamicin S S Imipenem S S Levofloxacin S S Linezolid S Meropenem S Penicillin R Piperacillin R S Quinupristin/Dalfopristin S Tetracycline S Ticarcillin R Tobramycin S S Trimethoprim/Sulfa S Vancomycin R JAZZMINE CULT RES 1 Final Letitia tropicalis Objective Assessment s/p lap converted to open exploration, JAIRO, removal of infected mesh, subtotal colectomy, SBR and hernia repair, 03/24 Leukocytosis Thrombocytopenia, improving EC fistula Fever - better Abdominal abscess, measuring 6.4 x 4.9 cm. s/p drain 03/12. Klebsiella ( R to Zosyn, S Cipro/Levo), VRE (R PCN) and PSAE ( R to ticarcillin only otherwise sensitive, S Cipro/Levo) and C tropicalis h/o Strep anginosis and Bacteroides Ventral hernia DM HTN PCN allergy/amox also - hives and swelling Plan Plan of Care Cont Fluconazole and dapto Cipro (changed from meropenem on 03/30 for possible B lactam induced thrombocytopenia) CK in am PT/OT Patient seen and examined. Case discussed with [employer]. Chart reviewed in [place]. Agree with above plan. SERAFIN MOTT APRN Apr 01, 2017 11:08 ROSA HARMAN MD Apr 01, 2017 16:23
[2017-04-01] MEDS: FLUCONAZOLE 200MG/100ML PREMIX 100 ML IV SCH (11:21)
--- NOTE | 2017-04-01 11:37 | PDOC ---
PROGRESS NOTES Subjective Subjective Pt seen in follow-up of thrombocytopenia. Denies any bleeding or bruising Objective Objective Vital Signs Date Time Temp Pulse Resp B/P (MAP) Pulse Ox O2 Delivery O2 Flow Rate FiO2 04/01/17 11:00 91 24 92/56 (68) 99 Nasal Cannula 3.0 04/01/17 08:00 97.4 97.4 Intake and Output 04/01/17 06:59 Intake Total 1951 ml Output Total 1020 ml Balance 931 ml Intake Oral 240 ml IV Total 1711 ml Output Urine Total 520 ml Stool Total 500 ml Physical Exam Abdomen: Normal bowel sounds, Soft, Other (surgical site c/d/i) Heart: Normal S1, Normal S2 Extremities: No clubbing General: Alert, Oriented X3 Assessment Assessment Problems Medical Problems: (1) Abdominal abscess Status: Acute (2) Abdominal pain Status: Acute Plan Plan of Care 1. Thrombocytopenia. Dramaticaly improved. Plt count 102 today. I expect in the next few days to normalize. 2. Anemia. Most likely multifactorial 3. Abscess. Management as per other team 4. Will sign off, please call with questions Comment Review of Relevant I have reviewed the following items chito (where applicable) has been applied. Labs Laboratory Tests Test 03/30/17 21:04 03/31/17 06:30 03/31/17 08:18 03/31/17 11:55 Glucose (Fingerstick) 158 mg/dL (70-99) 170 mg/dL (70-99) 138 mg/dL (70-99) White Blood Count 4.7 x10^3/uL (4.0-11.0) Red Blood Count 3.16 x10^6/uL (3.50-5.40) Hemoglobin 9.0 g/dL (12.0-15.5) Hematocrit 27.5 % (36.0-47.0) Mean Corpuscular Volume 87 fL (79-100) Mean Corpuscular Hemoglobin 29 pg (25-35) Mean Corpuscular Hemoglobin Concent 33 g/dL (31-37) Red Cell Distribution Width 17.3 % (11.5-14.5) Platelet Count 39 x10^3/uL (140-400) Neutrophils (%) (Auto) 61 % (31-73) Lymphocytes (%) (Auto) 25 % (24-48) Monocytes (%) (Auto) 13 % (0-9) Eosinophils (%) (Auto) 1 % (0-3) Basophils (%) (Auto) 0 % (0-3) Neutrophils # (Auto) 2.9 x10^3uL (1.8-7.7) Lymphocytes # (Auto) 1.2 x10^3/uL (1.0-4.8) Monocytes # (Auto) 0.6 x10^3/uL (0.0-1.1) Eosinophils # (Auto) 0.1 x10^3/uL (0.0-0.7) Basophils # (Auto) 0.0 x10^3/uL (0.0-0.2) Test 03/31/17 18:45 03/31/17 20:46 04/01/17 06:40 Sodium Level 137 mmol/L (136-145) Potassium Level 3.5 mmol/L (3.5-5.1) Chloride Level 105 mmol/L (98-107) Carbon Dioxide Level 29 mmol/L (21-32) Anion Gap 3 (6-14) Blood Urea Nitrogen 12 mg/dL (7-20) Creatinine 0.6 mg/dL (0.6-1.0) Estimated GFR (Cockcroft-Gault) 98.5 BUN/Creatinine Ratio 20 (6-20) Glucose Level 154 mg/dL (70-99) Calcium Level 8.4 mg/dL (8.5-10.1) Total Bilirubin 0.5 mg/dL (0.2-1.0) Aspartate Amino Transf (AST/SGOT) 22 U/L (15-37) Alanine Aminotransferase (ALT/SGPT) 14 U/L (14-59) Alkaline Phosphatase 83 U/L (46-116) Total Protein 4.6 g/dL (6.4-8.2) Albumin 1.4 g/dL (3.4-5.0) Albumin/Globulin Ratio 0.4 (1.0-1.7) Glucose (Fingerstick) 154 mg/dL (70-99) White Blood Count 6.3 x10^3/uL (4.0-11.0) Red Blood Count 3.14 x10^6/uL (3.50-5.40) Hemoglobin 8.9 g/dL (12.0-15.5) Hematocrit 27.4 % (36.0-47.0) Mean Corpuscular Volume 87 fL (79-100) Mean Corpuscular Hemoglobin 29 pg (25-35) Mean Corpuscular Hemoglobin Concent 33 g/dL (31-37) Red Cell Distribution Width 17.3 % (11.5-14.5) Platelet Count 102 x10^3/uL (140-400) Neutrophils (%) (Auto) 68 % (31-73) Lymphocytes (%) (Auto) 20 % (24-48) Monocytes (%) (Auto) 11 % (0-9) Eosinophils (%) (Auto) 1 % (0-3) Basophils (%) (Auto) 0 % (0-3) Neutrophils # (Auto) 4.3 x10^3uL (1.8-7.7) Lymphocytes # (Auto) 1.3 x10^3/uL (1.0-4.8) Monocytes # (Auto) 0.7 x10^3/uL (0.0-1.1) Eosinophils # (Auto) 0.1 x10^3/uL (0.0-0.7) Basophils # (Auto) 0.0 x10^3/uL (0.0-0.2) Laboratory Tests Test 03/31/17 11:55 03/31/17 18:45 03/31/17 20:46 04/01/17 06:40 Glucose (Fingerstick) 138 mg/dL (70-99) 154 mg/dL (70-99) Sodium Level 137 mmol/L (136-145) Potassium Level 3.5 mmol/L (3.5-5.1) Chloride Level 105 mmol/L (98-107) Carbon Dioxide Level 29 mmol/L (21-32) Anion Gap 3 (6-14) Blood Urea Nitrogen 12 mg/dL (7-20) Creatinine 0.6 mg/dL (0.6-1.0) Estimated GFR (Cockcroft-Gault) 98.5 BUN/Creatinine Ratio 20 (6-20) Glucose Level 154 mg/dL (70-99) Calcium Level 8.4 mg/dL (8.5-10.1) Total Bilirubin 0.5 mg/dL (0.2-1.0) Aspartate Amino Transf (AST/SGOT) 22 U/L (15-37) Alanine Aminotransferase (ALT/SGPT) 14 U/L (14-59) Alkaline Phosphatase 83 U/L (46-116) Total Protein 4.6 g/dL (6.4-8.2) Albumin 1.4 g/dL (3.4-5.0) Albumin/Globulin Ratio 0.4 (1.0-1.7) White Blood Count 6.3 x10^3/uL (4.0-11.0) Red Blood Count 3.14 x10^6/uL (3.50-5.40) Hemoglobin 8.9 g/dL (12.0-15.5) Hematocrit 27.4 % (36.0-47.0) Mean Corpuscular Volume 87 fL (79-100) Mean Corpuscular Hemoglobin 29 pg (25-35) Mean Corpuscular Hemoglobin Concent 33 g/dL (31-37) Red Cell Distribution Width 17.3 % (11.5-14.5) Platelet Count 102 x10^3/uL (140-400) Neutrophils (%) (Auto) 68 % (31-73) Lymphocytes (%) (Auto) 20 % (24-48) Monocytes (%) (Auto) 11 % (0-9) Eosinophils (%) (Auto) 1 % (0-3) Basophils (%) (Auto) 0 % (0-3) Neutrophils # (Auto) 4.3 x10^3uL (1.8-7.7) Lymphocytes # (Auto) 1.3 x10^3/uL (1.0-4.8) Monocytes # (Auto) 0.7 x10^3/uL (0.0-1.1) Eosinophils # (Auto) 0.1 x10^3/uL (0.0-0.7) Basophils # (Auto) 0.0 x10^3/uL (0.0-0.2) Microbiology 03/09/17 Blood Culture - Final, Complete NO GROWTH AFTER 5 DAYS 03/09/17 Urine Culture - Final, Complete 03/09/17 Urine Culture Result 1 (KULDEEP) - Final, Complete 03/12/17 Fungal Culture - Final, Complete 03/12/17 Fungal Culture Result 1 - Final, Complete Medications Current Medications Ondansetron HCl (Zofran) 4 mg 1X ONCE IV Last administered on 03/09/17 08:30 ; Start 03/09/17 at 08:15; Stop 03/09/17 at 08:16; Status DC Iohexol (Omnipaque 300 Mg/ml) 75 ml 1X ONCE IV Last administered on 03/09/17 08:50; Start 03/09/17 at 08:45; Stop 03/09/17 at 08:46; Status DC Info (Do NOT chart on this entry -- for MONITORING) 1 each PRN DAILY PRN MC SEE COMMENTS; Start 03/09/17 at 08:45; Stop 03/11/17 at 08:44; Status DC Ceftriaxone Sodium 50 ml @ 100 mls/hr 1X ONCE IV ; Start 03/09/17 at 09:30; Stop 03/09/17 at 09:55; Status DC Sodium Chloride 1,000 ml @ 1,000 mls/hr 1X ONCE IV Last administered on 09:55; Start 03/09/17 at 10:00; Stop 03/09/17 at 10:59; Status DC Ondansetron HCl (Zofran) 4 mg PRN Q8HRS PRN IV NAUSEA/VOMITING; Start 03/09/17 at 10:30; Stop 03/10/17 at 10:29; Status DC Meropenem 500 mg/ Sodium Chloride 50 ml @ 100 mls/hr Q8HRS IV Last administered on 03/16/17 06:09; Start 03/09/17 at 13:00; Stop 03/16/17 at 12: 59; Status DC Acetaminophen (Tylenol) 650 mg PRN QID PRN PO MILD PAIN / TEMP Last administered on 03/30/17 17:43; Start 03/09/17 at 20:30 Aspirin (Children'S Aspirin) 81 mg DAILY PO Last administered on 04/01/17 08: 14; Start 03/10/17 at 15:00 Clopidogrel Bisulfate (Plavix) 75 mg DAILY PO Last administered on 03/19/17 10:00; Start 03/10/17 at 15:00; Stop 03/22/17 at 09:10; Status DC Ferrous Sulfate (Feosol) 325 mg DAILY PO Last administered on 04/01/17 08:14 ; Start 03/10/17 at 15:00 Metoprolol Tartrate (Lopressor) 12.5 mg BID PO Last administered on 03/10/17 16:01; Start 03/10/17 at 15:00; Stop 03/10/17 at 21:01; Status DC Diclofenac Sodium (Voltaren) 75 mg DAILY PO Last administered on 03/23/17 09: 23; Start 03/10/17 at 14:30; Stop 03/29/17 at 10:50; Status DC Famotidine (Pepcid) 20 mg QHS PO Last administered on 03/24/17 21:20; Start 03/10/17 at 21:00; Stop 03/26/17 at 09:35; Status DC Glimepiride (Amaryl) 1 mg DAILY PO Last administered on 03/13/17 09:25; Start 03/11/17 at 15:00; Stop 03/13/17 at 17:02; Status DC Sodium Chloride 1,000 ml @ 100 mls/hr 1X ONCE IV Last administered on 21:00; Start 03/10/17 at 21:00; Stop 03/11/17 at 06:59; Status DC Lidocaine/Sodium Bicarbonate (Buffered Lidocaine 1%) 20 ml STK-MED ONCE IJ ; Start 03/12/17 at 13:05; Stop 03/12/17 at 13:06; Status DC Fentanyl Citrate (Fentanyl 2ml Vial) 100 mcg STK-MED ONCE .ROUTE ; Start at 13:20; Stop 03/12/17 at 13:21; Status DC Midazolam HCl (Versed) 2 mg STK-MED ONCE .ROUTE ; Start 03/12/17 at 13:20; Stop 03/12/17 at 13:21; Status DC Flumazenil (Romazicon) 0.5 mg STK-MED ONCE IV ; Start 03/12/17 at 13:20; Stop 03/12/17 at 13:21; Status DC Naloxone HCl (Narcan) 0.4 mg STK-MED ONCE .ROUTE ; Start 03/12/17 at 13:20; Stop 03/12/17 at 13:21; Status DC Lidocaine/Sodium Bicarbonate (Buffered Lidocaine 1%) 20 ml 1X ONCE IJ Last administered on 03/12/17 13:50; Start 03/12/17 at 13:30; Stop 03/12/17 at 13:33 ; Status DC Midazolam HCl (Versed) 2 mg 1X ONCE IV Last administered on 03/12/17 13:50; Start 03/12/17 at 13:30; Stop 03/12/17 at 13:33; Status DC Fentanyl Citrate (Fentanyl 2ml Vial) 100 mcg 1X ONCE IV Last administered on 03/12/17 13:50; Start 03/12/17 at 13:30; Stop 03/12/17 at 13:33; Status DC Lactobacillus Rhamnosus (Culturelle) 1 cap BID PO Last administered on 21:20; Start 03/12/17 at 21:00; Stop 03/25/17 at 21:06; Status DC Acetaminophen/ Hydrocodone Bitart (Lortab 7.5/325) 1 tab PRN Q6HRS PRN PO MODERATE - SEVERE PAIN Last administered on 04/01/17 09:14; Start 03/12/17 at 18:15 Ondansetron HCl (Zofran) 4 mg PRN Q6HRS PRN IV NAUSEA/VOMITING, 1ST CHOICE Last administered on 03/25/17 04:53; Start 03/13/17 at 09:00 Furosemide (Lasix) 40 mg QODAY PO Last administered on 03/22/17 09:39; Start 03/14/17 at 09:00; Stop 03/26/17 at 09:00; Status DC Glimepiride (Amaryl) 1 mg DAILY08 PO Last administered on 03/22/17 09:40; Start 03/14/17 at 08:00; Stop 03/23/17 at 08:52; Status DC Linezolid (Zyvox) 600 mg BID PO Last administered on 03/24/17 21:20; Start 03/14/17 at 13:15; Stop 03/25/17 at 10:49; Status DC Meropenem (Merrem) 500 mg Q8HRS IVP Last administered on 03/30/17 06:04; Start 03/16/17 at 14:00; Stop 03/30/17 at 07:49; Status DC Iohexol (Omnipaque 240 Mg/ml) 50 ml STK-MED ONCE .ROUTE ; Start 03/19/17 at 13: 11; Stop 03/19/17 at 13:12; Status DC Iohexol (Omnipaque 240 Mg/ml) 10 ml 1X ONCE IJ Last administered on 14:07; Start 03/19/17 at 14:00; Stop 03/19/17 at 14:01; Status DC Info (Do NOT chart on this entry -- for MONITORING) 1 each PRN DAILY PRN MC SEE COMMENTS; Start 03/19/17 at 14:00; Stop 03/21/17 at 13:59; Status DC Iohexol (Omnipaque 240 Mg/ml) 50 ml STK-MED ONCE .ROUTE ; Start 03/19/17 at 13: 55; Stop 03/19/17 at 13:56; Status DC Fluconazole (Diflucan) 200 mg DAILY PO Last administered on 03/23/17 09:24; Start 03/22/17 at 09:30; Stop 03/25/17 at 10:51; Status DC Metoprolol Succinate (Toprol Xl) 12.5 mg DAILY PO Last administered on 10:00; Start 03/23/17 at 09:00 Glimepiride (Amaryl) 0.5 mg DAILY08 PO ; Start 03/24/17 at 08:00; Stop at 13:05; Status DC Morphine Sulfate 1 mg PRN Q10MIN PRN IV SEVERE PAIN; Start 03/26/17 at 07:00; Stop 03/26/17 at 07:00; Status DC Ringer's Solution 1,000 ml @ 30 mls/hr Q24H IV ; Start 03/26/17 at 07:00; Stop 03/26/17 at 07:00; Status DC Lidocaine HCl (Xylocaine-Mpf 1% Vial) 2 ml PRN 1X PRN ID PRIOR TO IV START; Start 03/26/17 at 07:00; Stop 03/26/17 at 07:00; Status DC Hydromorphone HCl (Dilaudid) 0.5 mg PRN Q10MIN PRN IV SEV PAIN, Second choice; Start 03/26/17 at 07:00; Stop 03/27/17 at 06:59; Status Cancel Prochlorperazine Edisylate (Compazine) 5 mg PACU PRN PRN IV NAUSEA, MRX1 Last administered on 03/25/17 07:45; Start 03/26/17 at 07:00; Stop 03/26/17 at 07 :00; Status DC Morphine Sulfate 1 mg PRN Q10MIN PRN IV SEVERE PAIN; Start 03/24/17 at 07:45; Stop 03/25/17 at 07:44; Status DC Ringer's Solution 1,000 ml @ 30 mls/hr Q24H IV Last administered on 14:15; Start 03/24/17 at 07:32; Stop 03/24/17 at 19:31; Status DC Lidocaine HCl (Xylocaine-Mpf 1% Vial) 2 ml 1X PRN PRN ID IV START; Start 03/24 at 07:45; Stop 03/25/17 at 07:44; Status DC Hydromorphone HCl (Dilaudid) 0.5 mg PRN Q10MIN PRN IV SEV PAIN, Second choice; Start 03/24/17 at 07:45; Stop 03/25/17 at 07:44; Status DC Prochlorperazine Edisylate (Compazine) 5 mg PACU PRN PRN IV NAUSEA, MRX1; Start 03/24/17 at 07:45; Stop 03/25/17 at 07:44; Status DC Bupivacaine HCl/ Epinephrine Bitart (Sensorcain-Mpf Epi 0.5%-[id number]) 30 ml STK -MED ONCE .ROUTE Last administered on 03/24/17 15:56; Start 03/24/17 at 10: 28; Stop 03/24/17 at 10:29; Status DC Neostigmine Methylsulfate (Bloxiverz) 10 mg STK-MED ONCE .ROUTE ; Start at 14:38; Stop 03/24/17 at 14:39; Status DC Rocuronium [place] (Zemuron) 50 mg STK-MED ONCE .ROUTE ; Start 03/24/17 at 14: 38; Stop 03/24/17 at 14:39; Status DC Fentanyl Citrate (Fentanyl 2ml Vial) 100 mcg STK-MED ONCE .ROUTE ; Start at 14:38; Stop 03/24/17 at 14:39; Status DC Phenylephrine HCl 1 mg STK-MED ONCE IV ; Start 03/24/17 at 14:40; Stop at 14:41; Status DC Lidocaine HCl (Lidocaine Pf 2% Vial) 5 ml STK-MED ONCE .ROUTE ; Start 03/24/17 at 14:40; Stop 03/24/17 at 14:41; Status DC Dexamethasone Sodium Phosphate (Decadron) 20 mg STK-MED ONCE .ROUTE ; Start at 14:40; Stop 03/24/17 at 14:41; Status DC Ondansetron HCl (Zofran) 4 mg STK-MED ONCE .ROUTE ; Start 03/24/17 at 14:40; Stop 03/24/17 at 14:41; Status DC Propofol 20 ml @ As Directed STK-MED ONCE IV ; Start 03/24/17 at 14:40; Stop 03/24/17 at 14:41; Status DC Glycopyrrolate (Robinul) 1 mg STK-MED ONCE .ROUTE ; Start 03/24/17 at 15:11; Stop 03/24/17 at 15:12; Status DC Rocuronium [place] (Zemuron) 50 mg STK-MED ONCE .ROUTE ; Start 03/24/17 at 15: 53; Stop 03/24/17 at 15:54; Status DC Fentanyl Citrate (Fentanyl 2ml Vial) 100 mcg STK-MED ONCE .ROUTE ; Start at 16:01; Stop 03/24/17 at 16:02; Status DC Morphine Sulfate 10 mg STK-MED ONCE .ROUTE ; Start 03/24/17 at 16:02; Stop at 16:03; Status DC Albumin Human 500 ml @ As Directed STK-MED ONCE IV ; Start 03/24/17 at 17:03; Stop 03/24/17 at 17:04; Status DC Phenylephrine HCl (Corky-Synephrine Inj) 10 mg STK-MED ONCE .ROUTE ; Start at 17:27; Stop 03/24/17 at 17:28; Status DC Rocuronium [place] (Zemuron) 100 mg STK-MED ONCE .ROUTE ; Start 03/24/17 at 17: 57; Stop 03/24/17 at 17:58; Status DC Enoxaparin Sodium (Lovenox 40mg Syringe) 40 mg Q24H SQ Last administered on t 20:51; Start 03/24/17 at 20:45; Stop 03/26/17 at 19:34; Status DC Sodium Chloride (Normal Saline Flush) 3 ml QSHIFT PRN IV AFTER MEDS AND BLOOD DRAWS; Start 03/24/17 at 20:45 Ringer's Solution 1,000 ml @ 100 mls/hr Q10H IV Last administered on 12:32; Start 03/24/17 at 20:43; Stop 03/25/17 at 16:52; Status DC Naloxone HCl (Narcan) 0.4 mg PRN Q2MIN PRN IV SEE INSTRUCTIONS; Start at 20:45 Sodium Chloride 1,000 ml @ 25 mls/hr Q24H IV Last administered on 03/27/17 12:08; Start 03/24/17 at 20:43 Hydromorphone HCl 30 ml @ 0 mls/hr CONT PRN PRN IV PROTOCOL Last administered on 03/24/17 23:16; Start 03/24/17 at 20:45 Prochlorperazine Edisylate (Compazine) 5 mg PRN Q4HRS PRN IV NAUSEA/VOMITING, 2ND CHOICE; Start 03/25/17 at 07:45 Pantoprazole Sodium (Protonix Vial) 40 mg DAILYAC IVP Last administered on 08:02; Start 03/25/17 at 10:15 Linezolid 300 ml @ 300 mls/hr Q12HR IV Last administered on 03/26/17 20:54; Start 03/25/17 at 11:00; Stop 03/27/17 at 08:05; Status DC Fluconazole/ Sodium Chloride 100 ml @ 100 mls/hr Q24H IV Last administered on 04/01/17 11:21; Start 03/25/17 at 11:00 Dextrose/Lactated Ringer's 1,000 ml @ 75 mls/hr [id number] IV Last administered on 04/01/17 01:18; Start 03/25/17 at 17:00 Famotidine (Pepcid Vial) 40 mg QHS IVP Last administered on 03/28/17 21:35; Start 03/25/17 at 21:00; Stop 03/29/17 at 08:02; Status DC Lorazepam (Ativan) 0.5 mg 1X ONCE IV ; Start 03/26/17 at 07:00; Stop at 07:01; Status Cancel Lorazepam (Ativan) 0.5 mg PRN Q8HRS PRN PO ANXIETY / AGITATION; Start at 07:00; Status Cancel Furosemide (Lasix) 40 mg 1X ONCE IVP Last administered on 03/26/17 09:54; Start 03/26/17 at 09:00; Stop 03/26/17 at 09:01; Status DC Furosemide (Lasix) 20 mg DAILY IVP Last administered on 03/30/17 09:29; Start 03/27/17 at 09:00; Stop 03/31/17 at 12:22; Status DC Digoxin (Lanoxin) 250 mcg 1X ONCE IV Last administered on 03/26/17 15:06; Start 03/26/17 at 15:15; Stop 03/26/17 at 15:16; Status DC Iohexol (Omnipaque 300 Mg/ml) 75 ml 1X ONCE IV Last administered on 16:41; Start 03/26/17 at 16:45; Stop 03/26/17 at 16:46; Status DC Info (Do NOT chart on this entry -- for MONITORING) 1 each PRN DAILY PRN MC SEE COMMENTS; Start 03/26/17 at 16:45; Stop 03/28/17 at 16:44; Status DC Norepinephrine Bitartrate 250 ml @ As Directed STK-MED ONCE IV ; Start at 17:42; Stop 03/26/17 at 17:43; Status DC Norepinephrine Bitartrate 250 ml @ 0 mls/hr CONT PRN IV SEE I/O RECORD Last administered on 03/26/17 18:01; Start 03/26/17 at 18:00 Enoxaparin Sodium (Lovenox Per Pharmacy Treatment Dosing) 1 each PRN DAILY PRN MC SEE COMMENTS; Start 03/26/17 at 19:30; Stop 03/28/17 at 12:38; Status DC Enoxaparin Sodium (Lovenox 80mg Syringe) 80 mg Q12HR SQ Last administered on 21:51; Start 03/26/17 at 20:00; Stop 03/28/17 at 15:36; Status DC Daptomycin 460 mg/ Sodium Chloride 50 ml @ 100 mls/hr Q24H IV Last administered on 04/01/17 09:14; Start 03/27/17 at 09:00 Digoxin (Lanoxin) 250 mcg 1X ONCE IV Last administered on 03/27/17 12:09; Start 03/27/17 at 12:00; Stop 03/27/17 at 12:01; Status DC Insulin Detemir (Levemir) 5 units QHS SQ Last administered on 03/31/17 20:48 ; Start 03/27/17 at 21:00 Albumin Human 100 ml @ 100 mls/hr Q8H IV Last administered on 03/29/17 00:42 ; Start 03/28/17 at 09:00; Stop 03/29/17 at 01:59; Status DC Lorazepam (Ativan) 1 mg PRN Q6HRS PRN PO ANXIETY / AGITATION Last administered on 03/30/17 17:43; Start 03/28/17 at 16:00 Iohexol (Omnipaque 300 Mg/ml) 75 ml 1X ONCE IV Last administered on 16:00; Start 03/28/17 at 16:00; Stop 03/28/17 at 16:02; Status DC Info (Do NOT chart on this entry -- for MONITORING) 1 each PRN DAILY PRN MC SEE COMMENTS; Start 03/28/17 at 16:15; Stop 03/30/17 at 16:14; Status DC Fentanyl Citrate (Fentanyl 2ml Vial) 50 mcg PRN Q4HRS PRN IV PAIN Last administered on 04/01/17 08:14; Start 03/29/17 at 09:45 Ciprofloxacin/ Dextrose 200 ml @ 200 mls/hr Q12HR IV Last administered on 08:03; Start 03/30/17 at 09:00 Lorazepam (Ativan) 0.5 mg Q12HR PO Last administered on 04/01/17 08:14; Start 03/30/17 at 21:00 Dopamine HCl/ Dextrose 250 ml @ 15.155 mls/ hr CONT PRN IV SEE I/O RECORD Last administered on 04/01/17 10:12; Start 03/31/17 at 13:00 Active Scripts Active Reported Flagyl (Metronidazole) 500 Mg Tablet 1 Tab PO BID Cefpodoxime Proxetil 200 Mg Tablet 1 Tab PO BID Ferrous Sulfate 325 Mg Tablet 1 Tab PO DAILY Lasix (Furosemide) 40 Mg Tablet 40 Mg PO QODAY Potassium Chloride 10 Meq Capsule.er 10 Meq PO QODAY Metoprolol Tartrate 25 Mg Tablet 12.5 Mg PO BID Atorvastatin Calcium 40 Mg Tablet 40 Mg PO HS Clopidogrel (Clopidogrel Bisulfate) 75 Mg Tablet 1 Tab PO DAILY Diclofenac Sodium 75 Mg Tablet.dr 75 Mg PO DAILY Ranitidine Hcl 150 Mg Tablet 1 Tab PO BID Aspirin 81 Mg Tab.chew 1 Tab PO DAILY Vitals/I & O Vital Sign - Last 24 Hours 03/31/17 03/31/17 03/31/17 03/31/17 12:00 12:00 12:29 13:00 Temp 97.4 97.4 Pulse 83 77 Resp B/P (MAP) 100/53 (69) 113/66 (82) Pulse Ox 99 98 O2 Delivery Nasal Cannula Nasal Cannula Nasal Cannula O2 Flow Rate 2.0 2.0 2.0 2.0 03/31/17 03/31/17 03/31/17 03/31/17 13:01 14:00 14:15 15:00 Pulse 83 90 90 Resp 22 B/P (MAP) 78/40 (53) 92/43 (59) 82/40 (54) Pulse Ox 98 98 94 94 O2 Delivery Nasal Cannula BiPAP/CPAP BiPAP/CPAP O2 Flow Rate 2.0 03/31/17 03/31/17 03/31/17 03/31/17 15:24 16:00 17:00 18:00 Temp 99.0 99.0 Pulse 70 113 114 Resp 26 B/P (MAP) 90/39 (56) 82/49 (60) 119/93 (102) Pulse Ox 95 97 95 O2 Delivery Nasal Cannula BiPAP/CPAP BiPAP/CPAP BiPAP/CPAP O2 Flow Rate 2.0 03/31/17 03/31/17 03/31/17 03/31/17 19:00 20:00 20:00 20:23 Temp 99.7 99.7 Pulse 78 83 Resp 20 B/P (MAP) 92/55 (67) 91/48 (62) Pulse Ox 97 96 97 O2 Delivery BiPAP/CPAP BiPAP/CPAP Bi-pap BiPAP/CPAP 03/31/17 03/31/17 03/31/17 03/31/17 21:00 21:24 22:00 23:00 Pulse 76 62 66 Resp 24 24 B/P (MAP) 92/43 (59) 101/39 (59) 90/48 (62) Pulse Ox 98 98 98 98 O2 Delivery BiPAP/CPAP BiPAP/CPAP BiPAP/CPAP BiPAP/CPAP 03/31/17 04/01/17 04/01/17 04/01/17 23:32 00:00 00:00 01:00 Temp 96.9 96.9 Pulse 61 64 Resp 25 B/P (MAP) 101/44 (63) 90/44 (59) Pulse Ox 96 98 98 O2 Delivery BiPAP/CPAP BiPAP/CPAP Bi-pap BiPAP/CPAP 04/01/17 04/01/17 04/01/17 04/01/17 01:17 02:00 03:00 03:41 Pulse 76 56 Resp 21 B/P (MAP) 91/44 (60) 91/41 (58) Pulse Ox 98 98 99 99 O2 Delivery BiPAP/CPAP BiPAP/CPAP BiPAP/CPAP BiPAP/CPAP 04/01/17 04/01/17 04/01/17 04/01/17 04:00 04:00 05:00 05:34 Pulse 64 72 Resp 28 B/P (MAP) 99/43 (61) 91/39 (56) Pulse Ox 99 98 97 O2 Delivery BiPAP/CPAP Bi-pap BiPAP/CPAP BiPAP/CPAP 04/01/17 04/01/17 04/01/17 04/01/17 06:00 07:00 07:45 08:00 Temp 97.4 97.4 Pulse 108 92 106 Resp 28 B/P (MAP) 91/59 (70) 90/54 (66) 84/55 (65) Pulse Ox 98 98 98 O2 Delivery BiPAP/CPAP BiPAP/CPAP Bi-pap Nasal Cannula O2 Flow Rate 3.0 04/01/17 04/01/17 04/01/17 04/01/17 08:05 08:14 08:44 09:00 Pulse 73 Resp 28 B/P (MAP) 72/52 Pulse Ox 96 97 97 O2 Delivery BiPAP/CPAP BiPAP/CPAP Nasal Cannula O2 Flow Rate 3.0 04/01/17 04/01/17 04/01/17 04/01/17 09:00 09:14 10:00 10:14 Pulse 80 102 Resp B/P (MAP) 93/57 (69) 114/55 (74) Pulse Ox 98 97 99 99 O2 Delivery Nasal Cannula Nasal Cannula Nasal Cannula Nasal Cannula O2 Flow Rate 3.0 3.0 3.0 3.0 04/01/17 04/01/17 10:15 11:00 Pulse 98 91 Resp B/P (MAP) 91/56 (68) 92/56 (68) Pulse Ox 99 99 O2 Delivery Nasal Cannula Nasal Cannula O2 Flow Rate 3.0 3.0 Intake and Output 03/31/17 03/31/17 04/01/17 14:59 22:59 06:59 Intake Total 470 ml 1481 ml Output Total 145 ml 700 ml 175 ml Balance 325 ml 781 ml -175 ml DES CARDONA MD Apr 01, 2017 11:37
--- NOTE | 2017-04-01 11:57 | PDOC ---
SURGICAL PROGRESS NOTE Subjective up to chair no new complaints son here Vital Signs Vital Signs Date Time Temp Pulse Resp B/P (MAP) Pulse Ox O2 Delivery O2 Flow Rate FiO2 04/01/17 11:00 91 24 92/56 (68) 99 Nasal Cannula 3.0 04/01/17 08:00 97.4 97.4 I&O Intake and Output 04/01/17 07:00 Intake Total 1951 ml Output Total 1015 ml Balance 936 ml Intake Oral 240 ml IV Total 1711 ml Output Urine Total 515 ml Stool Total 500 ml PATIENT HAS A HOPPER: Yes General: Alert, Cooperative, No acute distress Labs Laboratory Tests Test 03/30/17 21:04 03/31/17 06:30 03/31/17 08:18 03/31/17 11:55 Glucose (Fingerstick) 158 mg/dL (70-99) 170 mg/dL (70-99) 138 mg/dL (70-99) White Blood Count 4.7 x10^3/uL (4.0-11.0) Red Blood Count 3.16 x10^6/uL (3.50-5.40) Hemoglobin 9.0 g/dL (12.0-15.5) Hematocrit 27.5 % (36.0-47.0) Mean Corpuscular Volume 87 fL (79-100) Mean Corpuscular Hemoglobin 29 pg (25-35) Mean Corpuscular Hemoglobin Concent 33 g/dL (31-37) Red Cell Distribution Width 17.3 % (11.5-14.5) Platelet Count 39 x10^3/uL (140-400) Neutrophils (%) (Auto) 61 % (31-73) Lymphocytes (%) (Auto) 25 % (24-48) Monocytes (%) (Auto) 13 % (0-9) Eosinophils (%) (Auto) 1 % (0-3) Basophils (%) (Auto) 0 % (0-3) Neutrophils # (Auto) 2.9 x10^3uL (1.8-7.7) Lymphocytes # (Auto) 1.2 x10^3/uL (1.0-4.8) Monocytes # (Auto) 0.6 x10^3/uL (0.0-1.1) Eosinophils # (Auto) 0.1 x10^3/uL (0.0-0.7) Basophils # (Auto) 0.0 x10^3/uL (0.0-0.2) Test 03/31/17 18:45 03/31/17 20:46 04/01/17 06:40 Sodium Level 137 mmol/L (136-145) Potassium Level 3.5 mmol/L (3.5-5.1) Chloride Level 105 mmol/L (98-107) Carbon Dioxide Level 29 mmol/L (21-32) Anion Gap 3 (6-14) Blood Urea Nitrogen 12 mg/dL (7-20) Creatinine 0.6 mg/dL (0.6-1.0) Estimated GFR (Cockcroft-Gault) 98.5 BUN/Creatinine Ratio 20 (6-20) Glucose Level 154 mg/dL (70-99) Calcium Level 8.4 mg/dL (8.5-10.1) Total Bilirubin 0.5 mg/dL (0.2-1.0) Aspartate Amino Transf (AST/SGOT) 22 U/L (15-37) Alanine Aminotransferase (ALT/SGPT) 14 U/L (14-59) Alkaline Phosphatase 83 U/L (46-116) Total Protein 4.6 g/dL (6.4-8.2) Albumin 1.4 g/dL (3.4-5.0) Albumin/Globulin Ratio 0.4 (1.0-1.7) Glucose (Fingerstick) 154 mg/dL (70-99) White Blood Count 6.3 x10^3/uL (4.0-11.0) Red Blood Count 3.14 x10^6/uL (3.50-5.40) Hemoglobin 8.9 g/dL (12.0-15.5) Hematocrit 27.4 % (36.0-47.0) Mean Corpuscular Volume 87 fL (79-100) Mean Corpuscular Hemoglobin 29 pg (25-35) Mean Corpuscular Hemoglobin Concent 33 g/dL (31-37) Red Cell Distribution Width 17.3 % (11.5-14.5) Platelet Count 102 x10^3/uL (140-400) Neutrophils (%) (Auto) 68 % (31-73) Lymphocytes (%) (Auto) 20 % (24-48) Monocytes (%) (Auto) 11 % (0-9) Eosinophils (%) (Auto) 1 % (0-3) Basophils (%) (Auto) 0 % (0-3) Neutrophils # (Auto) 4.3 x10^3uL (1.8-7.7) Lymphocytes # (Auto) 1.3 x10^3/uL (1.0-4.8) Monocytes # (Auto) 0.7 x10^3/uL (0.0-1.1) Eosinophils # (Auto) 0.1 x10^3/uL (0.0-0.7) Basophils # (Auto) 0.0 x10^3/uL (0.0-0.2) Laboratory Tests Test 03/31/17 18:45 03/31/17 20:46 04/01/17 06:40 Sodium Level 137 mmol/L (136-145) Potassium Level 3.5 mmol/L (3.5-5.1) Chloride Level 105 mmol/L (98-107) Carbon Dioxide Level 29 mmol/L (21-32) Anion Gap 3 (6-14) Blood Urea Nitrogen 12 mg/dL (7-20) Creatinine 0.6 mg/dL (0.6-1.0) Estimated GFR (Cockcroft-Gault) 98.5 BUN/Creatinine Ratio 20 (6-20) Glucose Level 154 mg/dL (70-99) Calcium Level 8.4 mg/dL (8.5-10.1) Total Bilirubin 0.5 mg/dL (0.2-1.0) Aspartate Amino Transf (AST/SGOT) 22 U/L (15-37) Alanine Aminotransferase (ALT/SGPT) 14 U/L (14-59) Alkaline Phosphatase 83 U/L (46-116) Total Protein 4.6 g/dL (6.4-8.2) Albumin 1.4 g/dL (3.4-5.0) Albumin/Globulin Ratio 0.4 (1.0-1.7) Glucose (Fingerstick) 154 mg/dL (70-99) White Blood Count 6.3 x10^3/uL (4.0-11.0) Red Blood Count 3.14 x10^6/uL (3.50-5.40) Hemoglobin 8.9 g/dL (12.0-15.5) Hematocrit 27.4 % (36.0-47.0) Mean Corpuscular Volume 87 fL (79-100) Mean Corpuscular Hemoglobin 29 pg (25-35) Mean Corpuscular Hemoglobin Concent 33 g/dL (31-37) Red Cell Distribution Width 17.3 % (11.5-14.5) Platelet Count 102 x10^3/uL (140-400) Neutrophils (%) (Auto) 68 % (31-73) Lymphocytes (%) (Auto) 20 % (24-48) Monocytes (%) (Auto) 11 % (0-9) Eosinophils (%) (Auto) 1 % (0-3) Basophils (%) (Auto) 0 % (0-3) Neutrophils # (Auto) 4.3 x10^3uL (1.8-7.7) Lymphocytes # (Auto) 1.3 x10^3/uL (1.0-4.8) Monocytes # (Auto) 0.7 x10^3/uL (0.0-1.1) Eosinophils # (Auto) 0.1 x10^3/uL (0.0-0.7) Basophils # (Auto) 0.0 x10^3/uL (0.0-0.2) Problem List Problems Medical Problems: (1) Abdominal abscess Status: Acute (2) Abdominal pain Status: Acute Assessment/Plan post op ex lap advance diet may need TPN Problems: LIZ DIXON MD Apr 01, 2017 11:57
[2017-04-01] MEDS: IV NORMAL SALINE 1000ML BAG 1,000 ML IV SCH (20:43)
[2017-04-01] MEDS: INSULIN DETEMIR 300 UNITS/3 ML INSULN.PEN. SQ SCH (21:00)
[2017-04-02] VITALS (15 sets, daily range): BP systolic 81–134; BP diastolic 47–82
[2017-04-02] MEDS: HYDROcodone/APAP 7.5/325MG 1 TAB TABLET PO PRN ×3 (03:58→18:14)
[2017-04-02 05:43] LABS: BASO % 0 % (0-3); EOS % 1 % (0-3); HEMATOCRIT 25.7 % (36.0-47.0); HEMOGLOBIN 8.4 g/dL (12.0-15.5); LYMPH % 15 % (24-48); MEAN CORPUSCULAR HEMOGLOBIN 29 pg (25-35); MEAN CORPUSCULAR HGB CONC 33 g/dL (31-37); MEAN CORPUSCULAR VOLUME 88 fL (79-100); MONO % 9 % (0-9); NEUT % 75 % (31-73); PLATELET COUNT 156 x10^3/uL (140-400); RED BLOOD COUNT 2.92 x10^6/uL (3.50-5.40); RED CELL DISTRIBUTION WIDTH 16.6 % (11.5-14.5); WHITE BLOOD COUNT 6.8 x10^3/uL (4.0-11.0)
[2017-04-02] MEDS: PANTOPRAZOLE IV PUSH 40 MG VIAL. IVP SCH (08:11)
[2017-04-02] MEDS: FERROUS SULFATE 325 MG TABLET. PO SCH (08:12)
[2017-04-02] MEDS: CIPROFLOXACIN 400MG PREMIX 200 ML IV SCH ×2 (08:12→21:20)
[2017-04-02] MEDS: METOPROLOL SUCC 24HR ER 25 MG TAB.ER.24H. PO SCH (08:12)
[2017-04-02] MEDS: LORazepam 0.5 MG TABLET PO SCH ×2 (08:12→21:19)
[2017-04-02] MEDS: ASPIRIN CHEWABLE 81 MG TABLET. PO SCH (08:12)
[2017-04-02] MEDS: IV DEXTROSE 5%-LACT RINGERS 1,000 ML IV SCH (08:13)
--- NOTE | 2017-04-02 08:29 | RAD ---
Chest x-ray Indication: Follow-up of effusions. Technique: Portable AP upright chest x-ray Comparison: Study from 03/26 fossa 17 Findings: Stable position of right-sided PICC line with its tip at the cavoatrial junction Heart is mildly enlarged in size. Patient is rotated to the left. Redemonstrated is moderate right and left pleural effusion. No pneumothorax. The mid and upper lung zones are well-aerated. Advanced degenerative changes in the right shoulder joint. Impression: Stable moderate right and small left pleural effusion. Underlying basilar atelectasis or pneumonia not ruled out.
--- NOTE | 2017-04-02 08:32 | PDOC ---
Infectious Disease Note Subjective Subjective Pt says feeling better, breathing is better Strength slowly improving O2 4LNC Denies SOA/CP/abdominal pain Denies muscle aches ROS ROS as above otherwise neg Vital Sign Vital Signs Vital Signs Date Time Temp Pulse Resp B/P (MAP) Pulse Ox O2 Delivery O2 Flow Rate FiO2 04/02/17 08:12 93 99/58 04/02/17 07:00 20 99 Nasal Cannula 3.0 04/02/17 04:00 97.8 97.8 Physical Exam PHYSICAL EXAM PHYSICAL EXAM GENERAL: alert oriented HEENT: anicteric, no conj petechia,no thrush LUNGS: Clear anteriorly HEART: S1S2, irregular ABD: BS active, soft, distal end midline incision dehisced; ostomy + output : [place] + EXT: Generalized edema GENERATION MECHANIC HELPER: Oriented, follows commands SKIN: No gen rash RUE-PICC. clean Labs Lab Laboratory Tests Test 04/01/17 20:50 04/01/17 23:50 04/02/17 05:10 Glucose (Fingerstick) 160 mg/dL (70-99) 152 mg/dL (70-99) White Blood Count 6.8 x10^3/uL (4.0-11.0) Red Blood Count 2.92 x10^6/uL (3.50-5.40) Hemoglobin 8.4 g/dL (12.0-15.5) Hematocrit 25.7 % (36.0-47.0) Mean Corpuscular Volume 88 fL (79-100) Mean Corpuscular Hemoglobin 29 pg (25-35) Mean Corpuscular Hemoglobin Concent 33 g/dL (31-37) Red Cell Distribution Width 16.6 % (11.5-14.5) Platelet Count 156 x10^3/uL (140-400) Neutrophils (%) (Auto) 75 % (31-73) Lymphocytes (%) (Auto) 15 % (24-48) Monocytes (%) (Auto) 9 % (0-9) Eosinophils (%) (Auto) 1 % (0-3) Basophils (%) (Auto) 0 % (0-3) Neutrophils # (Auto) 5.1 x10^3uL (1.8-7.7) Lymphocytes # (Auto) 1.0 x10^3/uL (1.0-4.8) Monocytes # (Auto) 0.6 x10^3/uL (0.0-1.1) Eosinophils # (Auto) 0.1 x10^3/uL (0.0-0.7) Basophils # (Auto) 0.0 x10^3/uL (0.0-0.2) Creatine Kinase 94 U/L (26-192) Micro RUN DATE: 03/16/17 PAGE 1 RUN TIME: 735 [facility] [address] [place] [address] M[address]D., Etl Analyst PATIENT: SAFIA MIRANDA ACCT: [id number] LOC: [address] [place] [address] U : [id number] AGE/SX: 71/F ROOM: [facility] REG : 03/09/[address]: MILENA MCMILLAN MD : 1945 BED: 1 DIS : STATUS: ADM IN TLOC: SPEC #: [id number] TIFFANIE: 03/12/17 STATUS: COMP REQ #: [id number] RECD: 03/12/[address] [facility] [address]: CRISPIN HEREDIA MD SOURCE: ABDOMEN ENTR: 03/12/17-[address]: SANDRA RODNEY MD [facility]: MILENA CASTELLANO MD ORDERED: ANAER-AERO CULT Procedure Result ANAEROBIC-AEROBIC CULTURE Final Final report ANAEROBIC RES 1 Final Comment No anaerobic growth in 72 hours. AEROBIC CULT Final Final report AEROBIC RES 1 Final Klebsiella pneumoniae Moderate growth AEROBIC RES 2 Final Yeast Moderate growth Request for further identification must be made within 1 week. AEROBIC RES 3 Final Comment Vancomycin-resistant Enterococcus (Enterococcus faecium) Heavy growth AEROBIC RES 4 Final Comment Pseudomonas aeruginosa Moderate growth CONTINUED ON NEXT PAGE RUN DATE: 03/16/17 PAGE 2 RUN TIME: 07 [facility] [address] [place] [address] M[address]D., Etl Analyst SPEC: [id number] PATIENT: EDMUND MIRANDAANN-MARIE Edwards [id number] ( Continued) Procedure Result ANTIMICROBIAL SUSCEPTIBILITY Final Comment S = Susceptible; I = Intermediate; R = Resistant P = Positive; N = Negative MICS are expressed in micrograms per mL Antibiotic RSLT#1 RSLT#2 RSLT#3 RSLT#4 Amikacin S Amoxicillin/Clavulanic Acid S Ampicillin R Cefepime S S Ceftazidime S Ceftriaxone S Cefuroxime I Ciprofloxacin S S Ertapenem S Gentamicin S S Imipenem S S Levofloxacin S S Linezolid S Meropenem S Penicillin R Piperacillin R S Quinupristin/Dalfopristin S Tetracycline S Ticarcillin R Tobramycin S S Trimethoprim/Sulfa S Vancomycin R Performed at: [address] [id number] Non Destructive Testing Scientist: Ashia Rogers MD, Phone: [phone] END OF REPORT Objective Assessment Abdominal abscess s/p drain c/s + Klebsiella ( R to Zosyn ,Cipro/Levo S) and enterococcus amp resistant,VRE and PSAE ( R to ticarcillin only otherwise sensitive, Cipro/Levo S) (yeast likely contaminant) s/p abdominal surgery 2 weeks ago Ventral hernia DM HTN thrombocytopenia anemia Plan Plan of Care Cont Fluconazole and dapto Cipro (changed from meropenem on 03/30 for 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
--- NOTE | 2017-04-02 09:02 | PDOC ---
Provider Note Provider Note vss, bp still lower- platelets recovered, labs ok- will defer post op tpn decision to dr abdullahi-- still low dose dopamine which has seemed to help MILENA MCMILLAN MD Apr 02, 2017 09:02
[2017-04-02] MEDS: DAPTOMYCIN IV SCH (09:22)
[2017-04-02] MEDS: NORMAL SALINE IV SCH (09:22)
--- NOTE | 2017-04-02 10:29 | PDOC ---
DYLON OCHOA BARREL SCRAPER 04/02/17 1029: SURGICAL PROGRESS NOTE Subjective resting Vital Signs Vital Signs Date Time Temp Pulse Resp B/P (MAP) Pulse Ox O2 Delivery O2 Flow Rate FiO2 04/02/17 10:00 95 22 81/54 (63) 99 BiPAP/CPAP 04/02/17 09:00 3.0 04/02/17 04:00 97.8 97.8 I&O Intake and Output 04/02/17 07:00 Intake Total 2735 ml Output Total 1460 ml Balance 1275 ml Intake Oral 240 ml IV Total 2495 ml Output Urine Total 1010 ml Stool Total 450 ml General: Alert, Cooperative, No acute distress Abdomen: Soft, Other (wound with skin dehis to lower portion, some drainage, ostomy with stool) Labs Laboratory Tests Test 03/31/17 11:55 03/31/17 18:45 03/31/17 20:46 04/01/17 06:40 Glucose (Fingerstick) 138 mg/dL (70-99) 154 mg/dL (70-99) Sodium Level 137 mmol/L (136-145) Potassium Level 3.5 mmol/L (3.5-5.1) Chloride Level 105 mmol/L (98-107) Carbon Dioxide Level 29 mmol/L (21-32) Anion Gap 3 (6-14) Blood Urea Nitrogen 12 mg/dL (7-20) Creatinine 0.6 mg/dL (0.6-1.0) Estimated GFR (Cockcroft-Gault) 98.5 BUN/Creatinine Ratio 20 (6-20) Glucose Level 154 mg/dL (70-99) Calcium Level 8.4 mg/dL (8.5-10.1) Total Bilirubin 0.5 mg/dL (0.2-1.0) Aspartate Amino Transf (AST/SGOT) 22 U/L (15-37) Alanine Aminotransferase (ALT/SGPT) 14 U/L (14-59) Alkaline Phosphatase 83 U/L (46-116) Total Protein 4.6 g/dL (6.4-8.2) Albumin 1.4 g/dL (3.4-5.0) Albumin/Globulin Ratio 0.4 (1.0-1.7) White Blood Count 6.3 x10^3/uL (4.0-11.0) Red Blood Count 3.14 x10^6/uL (3.50-5.40) Hemoglobin 8.9 g/dL (12.0-15.5) Hematocrit 27.4 % (36.0-47.0) Mean Corpuscular Volume 87 fL (79-100) Mean Corpuscular Hemoglobin 29 pg (25-35) Mean Corpuscular Hemoglobin Concent 33 g/dL (31-37) Red Cell Distribution Width 17.3 % (11.5-14.5) Platelet Count 102 x10^3/uL (140-400) Neutrophils (%) (Auto) 68 % (31-73) Lymphocytes (%) (Auto) 20 % (24-48) Monocytes (%) (Auto) 11 % (0-9) Eosinophils (%) (Auto) 1 % (0-3) Basophils (%) (Auto) 0 % (0-3) Neutrophils # (Auto) 4.3 x10^3uL (1.8-7.7) Lymphocytes # (Auto) 1.3 x10^3/uL (1.0-4.8) Monocytes # (Auto) 0.7 x10^3/uL (0.0-1.1) Eosinophils # (Auto) 0.1 x10^3/uL (0.0-0.7) Basophils # (Auto) 0.0 x10^3/uL (0.0-0.2) Test 04/01/17 20:50 04/01/17 23:50 04/02/17 05:10 Glucose (Fingerstick) 160 mg/dL (70-99) 152 mg/dL (70-99) White Blood Count 6.8 x10^3/uL (4.0-11.0) Red Blood Count 2.92 x10^6/uL (3.50-5.40) Hemoglobin 8.4 g/dL (12.0-15.5) Hematocrit 25.7 % (36.0-47.0) Mean Corpuscular Volume 88 fL (79-100) Mean Corpuscular Hemoglobin 29 pg (25-35) Mean Corpuscular Hemoglobin Concent 33 g/dL (31-37) Red Cell Distribution Width 16.6 % (11.5-14.5) Platelet Count 156 x10^3/uL (140-400) Neutrophils (%) (Auto) 75 % (31-73) Lymphocytes (%) (Auto) 15 % (24-48) Monocytes (%) (Auto) 9 % (0-9) Eosinophils (%) (Auto) 1 % (0-3) Basophils (%) (Auto) 0 % (0-3) Neutrophils # (Auto) 5.1 x10^3uL (1.8-7.7) Lymphocytes # (Auto) 1.0 x10^3/uL (1.0-4.8) Monocytes # (Auto) 0.6 x10^3/uL (0.0-1.1) Eosinophils # (Auto) 0.1 x10^3/uL (0.0-0.7) Basophils # (Auto) 0.0 x10^3/uL (0.0-0.2) Creatine Kinase 94 U/L (26-192) Laboratory Tests Test 04/01/17 20:50 04/01/17 23:50 04/02/17 05:10 Glucose (Fingerstick) 160 mg/dL (70-99) 152 mg/dL (70-99) White Blood Count 6.8 x10^3/uL (4.0-11.0) Red Blood Count 2.92 x10^6/uL (3.50-5.40) Hemoglobin 8.4 g/dL (12.0-15.5) Hematocrit 25.7 % (36.0-47.0) Mean Corpuscular Volume 88 fL (79-100) Mean Corpuscular Hemoglobin 29 pg (25-35) Mean Corpuscular Hemoglobin Concent 33 g/dL (31-37) Red Cell Distribution Width 16.6 % (11.5-14.5) Platelet Count 156 x10^3/uL (140-400) Neutrophils (%) (Auto) 75 % (31-73) Lymphocytes (%) (Auto) 15 % (24-48) Monocytes (%) (Auto) 9 % (0-9) Eosinophils (%) (Auto) 1 % (0-3) Basophils (%) (Auto) 0 % (0-3) Neutrophils # (Auto) 5.1 x10^3uL (1.8-7.7) Lymphocytes # (Auto) 1.0 x10^3/uL (1.0-4.8) Monocytes # (Auto) 0.6 x10^3/uL (0.0-1.1) Eosinophils # (Auto) 0.1 x10^3/uL (0.0-0.7) Basophils # (Auto) 0.0 x10^3/uL (0.0-0.2) Creatine Kinase 94 U/L (26-192) Problem List Problems Medical Problems: (1) Abdominal abscess Status: Acute (2) Abdominal pain Status: Acute Assessment/Plan will review with Dr Hall Problems: LI HALL MD 04/02/17 1546: SURGICAL PROGRESS NOTE Assessment/Plan Pt reports fatigue, on bipap abd soft, ostomy fxn cont supportive care will start TPN Problems: DYLON OCHOA BARREL SCRAPER Apr 02, 2017 10:29 LI HALL MD Apr 02, 2017 15:46
--- NOTE | 2017-04-02 10:32 | PDOC ---
PROGRESS NOTES Subjective Subjective c/c - f/u of Thrombocytopenia. ROS - no bleed Objective Objective Vital Signs Date Time Temp Pulse Resp B/P (MAP) Pulse Ox O2 Delivery O2 Flow Rate FiO2 04/02/17 10:00 95 22 81/54 (63) 99 BiPAP/CPAP 04/02/17 09:00 3.0 04/02/17 04:00 97.8 97.8 Intake and Output 04/02/17 07:00 Intake Total 2735 ml Output Total 1460 ml Balance 1275 ml Intake Oral 240 ml IV Total 2495 ml Output Urine Total 1010 ml Stool Total 450 ml Physical Exam General: Alert, Oriented X3, No acute distress Neuro: Normal speech Psych/Mental Status: Mental status NL Assessment Assessment Problems Medical Problems: (1) Abdominal abscess Status: Acute (2) Abdominal pain Status: Acute A/P: 1. Thrombocytopenia. Improved. Plt count 156 today. 2. Anemia. Most likely multifactorial. I will check iron/B12 3. Abscess. Management as per other team Comment Review of Relevant I have reviewed the following items chito (where applicable) has been applied. Labs Laboratory Tests Test 03/31/17 11:55 03/31/17 18:45 03/31/17 20:46 04/01/17 06:40 Glucose (Fingerstick) 138 mg/dL (70-99) 154 mg/dL (70-99) Sodium Level 137 mmol/L (136-145) Potassium Level 3.5 mmol/L (3.5-5.1) Chloride Level 105 mmol/L (98-107) Carbon Dioxide Level 29 mmol/L (21-32) Anion Gap 3 (6-14) Blood Urea Nitrogen 12 mg/dL (7-20) Creatinine 0.6 mg/dL (0.6-1.0) Estimated GFR (Cockcroft-Gault) 98.5 BUN/Creatinine Ratio 20 (6-20) Glucose Level 154 mg/dL (70-99) Calcium Level 8.4 mg/dL (8.5-10.1) Total Bilirubin 0.5 mg/dL (0.2-1.0) Aspartate Amino Transf (AST/SGOT) 22 U/L (15-37) Alanine Aminotransferase (ALT/SGPT) 14 U/L (14-59) Alkaline Phosphatase 83 U/L (46-116) Total Protein 4.6 g/dL (6.4-8.2) Albumin 1.4 g/dL (3.4-5.0) Albumin/Globulin Ratio 0.4 (1.0-1.7) White Blood Count 6.3 x10^3/uL (4.0-11.0) Red Blood Count 3.14 x10^6/uL (3.50-5.40) Hemoglobin 8.9 g/dL (12.0-15.5) Hematocrit 27.4 % (36.0-47.0) Mean Corpuscular Volume 87 fL (79-100) Mean Corpuscular Hemoglobin 29 pg (25-35) Mean Corpuscular Hemoglobin Concent 33 g/dL (31-37) Red Cell Distribution Width 17.3 % (11.5-14.5) Platelet Count 102 x10^3/uL (140-400) Neutrophils (%) (Auto) 68 % (31-73) Lymphocytes (%) (Auto) 20 % (24-48) Monocytes (%) (Auto) 11 % (0-9) Eosinophils (%) (Auto) 1 % (0-3) Basophils (%) (Auto) 0 % (0-3) Neutrophils # (Auto) 4.3 x10^3uL (1.8-7.7) Lymphocytes # (Auto) 1.3 x10^3/uL (1.0-4.8) Monocytes # (Auto) 0.7 x10^3/uL (0.0-1.1) Eosinophils # (Auto) 0.1 x10^3/uL (0.0-0.7) Basophils # (Auto) 0.0 x10^3/uL (0.0-0.2) Test 04/01/17 20:50 04/01/17 23:50 04/02/17 05:10 Glucose (Fingerstick) 160 mg/dL (70-99) 152 mg/dL (70-99) White Blood Count 6.8 x10^3/uL (4.0-11.0) Red Blood Count 2.92 x10^6/uL (3.50-5.40) Hemoglobin 8.4 g/dL (12.0-15.5) Hematocrit 25.7 % (36.0-47.0) Mean Corpuscular Volume 88 fL (79-100) Mean Corpuscular Hemoglobin 29 pg (25-35) Mean Corpuscular Hemoglobin Concent 33 g/dL (31-37) Red Cell Distribution Width 16.6 % (11.5-14.5) Platelet Count 156 x10^3/uL (140-400) Neutrophils (%) (Auto) 75 % (31-73) Lymphocytes (%) (Auto) 15 % (24-48) Monocytes (%) (Auto) 9 % (0-9) Eosinophils (%) (Auto) 1 % (0-3) Basophils (%) (Auto) 0 % (0-3) Neutrophils # (Auto) 5.1 x10^3uL (1.8-7.7) Lymphocytes # (Auto) 1.0 x10^3/uL (1.0-4.8) Monocytes # (Auto) 0.6 x10^3/uL (0.0-1.1) Eosinophils # (Auto) 0.1 x10^3/uL (0.0-0.7) Basophils # (Auto) 0.0 x10^3/uL (0.0-0.2) Creatine Kinase 94 U/L (26-192) Laboratory Tests Test 04/01/17 20:50 04/01/17 23:50 04/02/17 05:10 Glucose (Fingerstick) 160 mg/dL (70-99) 152 mg/dL (70-99) White Blood Count 6.8 x10^3/uL (4.0-11.0) Red Blood Count 2.92 x10^6/uL (3.50-5.40) Hemoglobin 8.4 g/dL (12.0-15.5) Hematocrit 25.7 % (36.0-47.0) Mean Corpuscular Volume 88 fL (79-100) Mean Corpuscular Hemoglobin 29 pg (25-35) Mean Corpuscular Hemoglobin Concent 33 g/dL (31-37) Red Cell Distribution Width 16.6 % (11.5-14.5) Platelet Count 156 x10^3/uL (140-400) Neutrophils (%) (Auto) 75 % (31-73) Lymphocytes (%) (Auto) 15 % (24-48) Monocytes (%) (Auto) 9 % (0-9) Eosinophils (%) (Auto) 1 % (0-3) Basophils (%) (Auto) 0 % (0-3) Neutrophils # (Auto) 5.1 x10^3uL (1.8-7.7) Lymphocytes # (Auto) 1.0 x10^3/uL (1.0-4.8) Monocytes # (Auto) 0.6 x10^3/uL (0.0-1.1) Eosinophils # (Auto) 0.1 x10^3/uL (0.0-0.7) Basophils # (Auto) 0.0 x10^3/uL (0.0-0.2) Creatine Kinase 94 U/L (26-192) Microbiology 03/09/17 Blood Culture - Final, Complete NO GROWTH AFTER 5 DAYS 03/09/17 Urine Culture - Final, Complete 03/09/17 Urine Culture Result 1 (KULDEEP) - Final, Complete 03/12/17 Fungal Culture - Final, Complete 03/12/17 Fungal Culture Result 1 - Final, Complete Medications Current Medications Ondansetron HCl (Zofran) 4 mg 1X ONCE IV Last administered on 03/09/17 08:30 ; Start 03/09/17 at 08:15; Stop 03/09/17 at 08:16; Status DC Iohexol (Omnipaque 300 Mg/ml) 75 ml 1X ONCE IV Last administered on 03/09/17 08:50; Start 03/09/17 at 08:45; Stop 03/09/17 at 08:46; Status DC Info (Do NOT chart on this entry -- for MONITORING) 1 each PRN DAILY PRN MC SEE COMMENTS; Start 03/09/17 at 08:45; Stop 03/11/17 at 08:44; Status DC Ceftriaxone Sodium 50 ml @ 100 mls/hr 1X ONCE IV ; Start 03/09/17 at 09:30; Stop 03/09/17 at 09:55; Status DC Sodium Chloride 1,000 ml @ 1,000 mls/hr 1X ONCE IV Last administered on 09:55; Start 03/09/17 at 10:00; Stop 03/09/17 at 10:59; Status DC Ondansetron HCl (Zofran) 4 mg PRN Q8HRS PRN IV NAUSEA/VOMITING; Start 03/09/17 at 10:30; Stop 03/10/17 at 10:29; Status DC Meropenem 500 mg/ Sodium Chloride 50 ml @ 100 mls/hr Q8HRS IV Last administered on 03/16/17 06:09; Start 03/09/17 at 13:00; Stop 03/16/17 at 12: 59; Status DC Acetaminophen (Tylenol) 650 mg PRN QID PRN PO MILD PAIN / TEMP Last administered on 03/30/17 17:43; Start 03/09/17 at 20:30 Aspirin (Children'S Aspirin) 81 mg DAILY PO Last administered on 04/02/17 08: 12; Start 03/10/17 at 15:00 Clopidogrel Bisulfate (Plavix) 75 mg DAILY PO Last administered on 03/19/17 10:00; Start 03/10/17 at 15:00; Stop 03/22/17 at 09:10; Status DC Ferrous Sulfate (Feosol) 325 mg DAILY PO Last administered on 04/02/17 08:12 ; Start 03/10/17 at 15:00 Metoprolol Tartrate (Lopressor) 12.5 mg BID PO Last administered on 03/10/17 16:01; Start 03/10/17 at 15:00; Stop 03/10/17 at 21:01; Status DC Diclofenac Sodium (Voltaren) 75 mg DAILY PO Last administered on 03/23/17 09: 23; Start 03/10/17 at 14:30; Stop 03/29/17 at 10:50; Status DC Famotidine (Pepcid) 20 mg QHS PO Last administered on 03/24/17 21:20; Start 03/10/17 at 21:00; Stop 03/26/17 at 09:35; Status DC Glimepiride (Amaryl) 1 mg DAILY PO Last administered on 03/13/17 09:25; Start 03/11/17 at 15:00; Stop 03/13/17 at 17:02; Status DC Sodium Chloride 1,000 ml @ 100 mls/hr 1X ONCE IV Last administered on 21:00; Start 03/10/17 at 21:00; Stop 03/11/17 at 06:59; Status DC Lidocaine/Sodium Bicarbonate (Buffered Lidocaine 1%) 20 ml ChoiceMap ONCE IJ ; Start 03/12/17 at 13:05; Stop 03/12/17 at 13:06; Status DC Fentanyl Citrate (Fentanyl 2ml Vial) 100 mcg STK-MED ONCE .ROUTE ; Start at 13:20; Stop 03/12/17 at 13:21; Status DC Midazolam HCl (Versed) 2 mg STK-MED ONCE .ROUTE ; Start 03/12/17 at 13:20; Stop 03/12/17 at 13:21; Status DC Flumazenil (Romazicon) 0.5 mg STK-MED ONCE IV ; Start 03/12/17 at 13:20; Stop 03/12/17 at 13:21; Status DC Naloxone HCl (Narcan) 0.4 mg STK-MED ONCE .ROUTE ; Start 03/12/17 at 13:20; Stop 03/12/17 at 13:21; Status DC Lidocaine/Sodium Bicarbonate (Buffered Lidocaine 1%) 20 ml 1X ONCE IJ Last administered on 03/12/17 13:50; Start 03/12/17 at 13:30; Stop 03/12/17 at 13:33 ; Status DC Midazolam HCl (Versed) 2 mg 1X ONCE IV Last administered on 03/12/17 13:50; Start 03/12/17 at 13:30; Stop 03/12/17 at 13:33; Status DC Fentanyl Citrate (Fentanyl 2ml Vial) 100 mcg 1X ONCE IV Last administered on 03/12/17 13:50; Start 03/12/17 at 13:30; Stop 03/12/17 at 13:33; Status DC Lactobacillus Rhamnosus (Culturelle) 1 cap BID PO Last administered on 21:20; Start 03/12/17 at 21:00; Stop 03/25/17 at 21:06; Status DC Acetaminophen/ Hydrocodone Bitart (Lortab 7.5/325) 1 tab PRN Q6HRS PRN PO MODERATE - SEVERE PAIN Last administered on 04/02/17 03:58; Start 03/12/17 at 18:15 Ondansetron HCl (Zofran) 4 mg PRN Q6HRS PRN IV NAUSEA/VOMITING, 1ST CHOICE Last administered on 03/25/17 04:53; Start 03/13/17 at 09:00 Furosemide (Lasix) 40 mg QODAY PO Last administered on 03/22/17 09:39; Start 03/14/17 at 09:00; Stop 03/26/17 at 09:00; Status DC Glimepiride (Amaryl) 1 mg DAILY08 PO Last administered on 03/22/17 09:40; Start 03/14/17 at 08:00; Stop 03/23/17 at 08:52; Status DC Linezolid (Zyvox) 600 mg BID PO Last administered on 03/24/17 21:20; Start 03/14/17 at 13:15; Stop 03/25/17 at 10:49; Status DC Meropenem (Merrem) 500 mg Q8HRS IVP Last administered on 03/30/17 06:04; Start 03/16/17 at 14:00; Stop 03/30/17 at 07:49; Status DC Iohexol (Omnipaque 240 Mg/ml) 50 ml STK-MED ONCE .ROUTE ; Start 03/19/17 at 13: 11; Stop 03/19/17 at 13:12; Status DC Iohexol (Omnipaque 240 Mg/ml) 10 ml 1X ONCE IJ Last administered on 14:07; Start 03/19/17 at 14:00; Stop 03/19/17 at 14:01; Status DC Info (Do NOT chart on this entry -- for MONITORING) 1 each PRN DAILY PRN MC SEE COMMENTS; Start 03/19/17 at 14:00; Stop 03/21/17 at 13:59; Status DC Iohexol (Omnipaque 240 Mg/ml) 50 ml STK-MED ONCE .ROUTE ; Start 03/19/17 at 13: 55; Stop 03/19/17 at 13:56; Status DC Fluconazole (Diflucan) 200 mg DAILY PO Last administered on 03/23/17 09:24; Start 03/22/17 at 09:30; Stop 03/25/17 at 10:51; Status DC Metoprolol Succinate (Toprol Xl) 12.5 mg DAILY PO Last administered on 08:12; Start 03/23/17 at 09:00 Glimepiride (Amaryl) 0.5 mg DAILY08 PO ; Start 03/24/17 at 08:00; Stop at 13:05; Status DC Morphine Sulfate 1 mg PRN Q10MIN PRN IV SEVERE PAIN; Start 03/26/17 at 07:00; Stop 03/26/17 at 07:00; Status DC Ringer's Solution 1,000 ml @ 30 mls/hr Q24H IV ; Start 03/26/17 at 07:00; Stop 03/26/17 at 07:00; Status DC Lidocaine HCl (Xylocaine-Mpf 1% Vial) 2 ml PRN 1X PRN ID PRIOR TO IV START; Start 03/26/17 at 07:00; Stop 03/26/17 at 07:00; Status DC Hydromorphone HCl (Dilaudid) 0.5 mg PRN Q10MIN PRN IV SEV PAIN, Second choice; Start 03/26/17 at 07:00; Stop 03/27/17 at 06:59; Status Cancel Prochlorperazine Edisylate (Compazine) 5 mg PACU PRN PRN IV NAUSEA, MRX1 Last administered on 03/25/17t 07:45; Start 03/26/17 at 07:00; Stop 03/26/17 at 07 :00; Status DC Morphine Sulfate 1 mg PRN Q10MIN PRN IV SEVERE PAIN; Start 03/24/17 at 07:45; Stop 03/25/17 at 07:44; Status DC Ringer's Solution 1,000 ml @ 30 mls/hr Q24H IV Last administered on t 14:15; Start 03/24/17 at 07:32; Stop 03/24/17 at 19:31; Status DC Lidocaine HCl (Xylocaine-Mpf 1% Vial) 2 ml 1X PRN PRN ID IV START; Start 03/24 at 07:45; Stop 03/25/17 at 07:44; Status DC Hydromorphone HCl (Dilaudid) 0.5 mg PRN Q10MIN PRN IV SEV PAIN, Second choice; Start 03/24/17 at 07:45; Stop 03/25/17 at 07:44; Status DC Prochlorperazine Edisylate (Compazine) 5 mg PACU PRN PRN IV NAUSEA, MRX1; Start 03/24/17 at 07:45; Stop 03/25/17 at 07:44; Status DC Bupivacaine HCl/ Epinephrine Bitart (Sensorcain-Mpf Epi 0.5%-[id number]) 30 ml STK -MED ONCE .ROUTE Last administered on 03/24/17t 15:56; Start 03/24/17 at 10: 28; Stop 03/24/17 at 10:29; Status DC Neostigmine Methylsulfate (Bloxiverz) 10 mg STK-MED ONCE .ROUTE ; Start at 14:38; Stop 03/24/17 at 14:39; Status DC Rocuronium Anita (Zemuron) 50 mg STK-MED ONCE .ROUTE ; Start 03/24/17 at 14: 38; Stop 03/24/17 at 14:39; Status DC Fentanyl Citrate (Fentanyl 2ml Vial) 100 mcg STK-MED ONCE .ROUTE ; Start at 14:38; Stop 03/24/17 at 14:39; Status DC Phenylephrine HCl 1 mg STK-MED ONCE IV ; Start 03/24/17 at 14:40; Stop at 14:41; Status DC Lidocaine HCl (Lidocaine Pf 2% Vial) 5 ml STK-MED ONCE .ROUTE ; Start 03/24/17 at 14:40; Stop 03/24/17 at 14:41; Status DC Dexamethasone Sodium Phosphate (Decadron) 20 mg STK-MED ONCE .ROUTE ; Start at 14:40; Stop 03/24/17 at 14:41; Status DC Ondansetron HCl (Zofran) 4 mg STK-MED ONCE .ROUTE ; Start 03/24/17 at 14:40; Stop 03/24/17 at 14:41; Status DC Propofol 20 ml @ As Directed STK-MED ONCE IV ; Start 03/24/17 at 14:40; Stop 03/24/17 at 14:41; Status DC Glycopyrrolate (Robinul) 1 mg STK-MED ONCE .ROUTE ; Start 03/24/17 at 15:11; Stop 03/24/17 at 15:12; Status DC Rocuronium Anita (Zemuron) 50 mg STK-MED ONCE .ROUTE ; Start 03/24/17 at 15: 53; Stop 03/24/17 at 15:54; Status DC Fentanyl Citrate (Fentanyl 2ml Vial) 100 mcg STK-MED ONCE .ROUTE ; Start at 16:01; Stop 03/24/17 at 16:02; Status DC Morphine Sulfate 10 mg STK-MED ONCE .ROUTE ; Start 03/24/17 at 16:02; Stop at 16:03; Status DC Albumin Human 500 ml @ As Directed STK-MED ONCE IV ; Start 03/24/17 at 17:03; Stop 03/24/17 at 17:04; Status DC Phenylephrine HCl (Corky-Synephrine Inj) 10 mg STK-MED ONCE .ROUTE ; Start at 17:27; Stop 03/24/17 at 17:28; Status DC Rocuronium Anita (Zemuron) 100 mg STK-MED ONCE .ROUTE ; Start 03/24/17 at 17: 57; Stop 03/24/17 at 17:58; Status DC Enoxaparin Sodium (Lovenox 40mg Syringe) 40 mg Q24H SQ Last administered on 20:51; Start 03/24/17 at 20:45; Stop 03/26/17 at 19:34; Status DC Sodium Chloride (Normal Saline Flush) 3 ml QSHIFT PRN IV AFTER MEDS AND BLOOD DRAWS; Start 03/24/17 at 20:45 Ringer's Solution 1,000 ml @ 100 mls/hr Q10H IV Last administered on 12:32; Start 03/24/17 at 20:43; Stop 03/25/17 at 16:52; Status DC Naloxone HCl (Narcan) 0.4 mg PRN Q2MIN PRN IV SEE INSTRUCTIONS; Start at 20:45 Sodium Chloride 1,000 ml @ 25 mls/hr Q24H IV Last administered on 03/27/17 12:08; Start 03/24/17 at 20:43 Hydromorphone HCl 30 ml @ 0 mls/hr CONT PRN PRN IV PROTOCOL Last administered on 03/24/17 23:16; Start 03/24/17 at 20:45 Prochlorperazine Edisylate (Compazine) 5 mg PRN Q4HRS PRN IV NAUSEA/VOMITING, 2ND CHOICE; Start 03/25/17 at 07:45 Pantoprazole Sodium (Protonix Vial) 40 mg DAILYAC IVP Last administered on 08:11; Start 03/25/17 at 10:15 Linezolid 300 ml @ 300 mls/hr Q12HR IV Last administered on 03/26/17 20:54; Start 03/25/17 at 11:00; Stop 03/27/17 at 08:05; Status DC Fluconazole/ Sodium Chloride 100 ml @ 100 mls/hr Q24H IV Last administered on 04/01/17 11:21; Start 03/25/17 at 11:00 Dextrose/Lactated Ringer's 1,000 ml @ 75 mls/hr [id number] IV Last administered on 04/02/17 08:13; Start 03/25/17 at 17:00 Famotidine (Pepcid Vial) 40 mg QHS IVP Last administered on 03/28/17 21:35; Start 03/25/17 at 21:00; Stop 03/29/17 at 08:02; Status DC Lorazepam (Ativan) 0.5 mg 1X ONCE IV ; Start 03/26/17 at 07:00; Stop at 07:01; Status Cancel Lorazepam (Ativan) 0.5 mg PRN Q8HRS PRN PO ANXIETY / AGITATION; Start at 07:00; Status Cancel Furosemide (Lasix) 40 mg 1X ONCE IVP Last administered on 03/26/17 09:54; Start 03/26/17 at 09:00; Stop 03/26/17 at 09:01; Status DC Furosemide (Lasix) 20 mg DAILY IVP Last administered on 03/30/17 09:29; Start 03/27/17 at 09:00; Stop 03/31/17 at 12:22; Status DC Digoxin (Lanoxin) 250 mcg 1X ONCE IV Last administered on 03/26/17 15:06; Start 03/26/17 at 15:15; Stop 03/26/17 at 15:16; Status DC Iohexol (Omnipaque 300 Mg/ml) 75 ml 1X ONCE IV Last administered on 16:41; Start 03/26/17 at 16:45; Stop 03/26/17 at 16:46; Status DC Info (Do NOT chart on this entry -- for MONITORING) 1 each PRN DAILY PRN MC SEE COMMENTS; Start 03/26/17 at 16:45; Stop 03/28/17 at 16:44; Status DC Norepinephrine Bitartrate 250 ml @ As Directed STK-MED ONCE IV ; Start at 17:42; Stop 03/26/17 at 17:43; Status DC Norepinephrine Bitartrate 250 ml @ 0 mls/hr CONT PRN IV SEE I/O RECORD Last administered on 03/26/17 18:01; Start 03/26/17 at 18:00 Enoxaparin Sodium (Lovenox Per Pharmacy Treatment Dosing) 1 each PRN DAILY PRN MC SEE COMMENTS; Start 03/26/17 at 19:30; Stop 03/28/17 at 12:38; Status DC Enoxaparin Sodium (Lovenox 80mg Syringe) 80 mg Q12HR SQ Last administered on 21:51; Start 03/26/17 at 20:00; Stop 03/28/17 at 15:36; Status DC Daptomycin 460 mg/ Sodium Chloride 50 ml @ 100 mls/hr Q24H IV Last administered on 04/02/17 09:22; Start 03/27/17 at 09:00 Digoxin (Lanoxin) 250 mcg 1X ONCE IV Last administered on 03/27/17 12:09; Start 03/27/17 at 12:00; Stop 03/27/17 at 12:01; Status DC Insulin Detemir (Levemir) 5 units QHS SQ Last administered on 04/01/17 21:00 ; Start 03/27/17 at 21:00 Albumin Human 100 ml @ 100 mls/hr Q8H IV Last administered on 03/29/17 00:42 ; Start 03/28/17 at 09:00; Stop 03/29/17 at 01:59; Status DC Lorazepam (Ativan) 1 mg PRN Q6HRS PRN PO ANXIETY / AGITATION Last administered on 03/30/17 17:43; Start 03/28/17 at 16:00 Iohexol (Omnipaque 300 Mg/ml) 75 ml 1X ONCE IV Last administered on 16:00; Start 03/28/17 at 16:00; Stop 03/28/17 at 16:02; Status DC Info (Do NOT chart on this entry -- for MONITORING) 1 each PRN DAILY PRN MC SEE COMMENTS; Start 03/28/17 at 16:15; Stop 03/30/17 at 16:14; Status DC Fentanyl Citrate (Fentanyl 2ml Vial) 50 mcg PRN Q4HRS PRN IV PAIN Last administered on 04/01/17 08:14; Start 03/29/17 at 09:45 Ciprofloxacin/ Dextrose 200 ml @ 200 mls/hr Q12HR IV Last administered on 08:12; Start 03/30/17 at 09:00 Lorazepam (Ativan) 0.5 mg Q12HR PO Last administered on 04/02/17 08:12; Start 03/30/17 at 21:00 Dopamine HCl/ Dextrose 250 ml @ 15.155 mls/ hr CONT PRN IV SEE I/O RECORD Last administered on 04/02/17 03:05; Start 03/31/17 at 13:00 Active Scripts Active Reported Flagyl (Metronidazole) 500 Mg Tablet 1 Tab PO BID Cefpodoxime Proxetil 200 Mg Tablet 1 Tab PO BID Ferrous Sulfate 325 Mg Tablet 1 Tab PO DAILY Lasix (Furosemide) 40 Mg Tablet 40 Mg PO QODAY Potassium Chloride 10 Meq Capsule.er 10 Meq PO QODAY Metoprolol Tartrate 25 Mg Tablet 12.5 Mg PO BID Atorvastatin Calcium 40 Mg Tablet 40 Mg PO HS Clopidogrel (Clopidogrel Bisulfate) 75 Mg Tablet 1 Tab PO DAILY Diclofenac Sodium 75 Mg Tablet.dr 75 Mg PO DAILY Ranitidine Hcl 150 Mg Tablet 1 Tab PO BID Aspirin 81 Mg Tab.chew 1 Tab PO DAILY Vitals/I & O Vital Sign - Last 24 Hours 04/01/17 04/01/17 04/01/17 04/01/17 11:00 12:00 12:22 13:00 Temp 98.0 98.0 Pulse 91 91 105 Resp 24 24 28 B/P (MAP) 92/56 (68) 96/48 (64) 82/53 (63) Pulse Ox 99 99 98 O2 Delivery Nasal Cannula Nasal Cannula Bi-pap Nasal Cannula O2 Flow Rate 3.0 3.0 3.0 04/01/17 04/01/17 04/01/17 04/01/17 14:00 15:00 16:00 16:22 Temp 97.4 97.4 Pulse 100 99 80 Resp B/P (MAP) 98/54 (69) 116/53 (74) 96/48 (64) Pulse Ox 98 98 98 O2 Delivery Nasal Cannula Nasal Cannula Nasal Cannula Bi-pap O2 Flow Rate 3.0 3.0 3.0 04/01/17 04/01/17 04/01/17 04/01/17 17:00 17:51 18:00 19:00 Temp 98.6 98.6 Pulse 73 108 69 Resp 25 B/P (MAP) 112/54 (73) 110/50 (70) 104/69 (81) Pulse Ox 99 98 99 99 O2 Delivery Nasal Cannula Nasal Cannula BiPAP/CPAP BiPAP/CPAP O2 Flow Rate 3.0 3.0 04/01/17 04/01/17 04/01/17 04/01/17 20:00 20:00 20:16 21:00 Pulse 74 90 Resp B/P (MAP) 101/76 (84) 92/45 (61) Pulse Ox 99 96 92 O2 Delivery BiPAP/CPAP Bi-pap BiPAP/CPAP Nasal Cannula O2 Flow Rate 3.0 04/01/17 04/01/17 04/01/17 04/02/17 22:00 23:00 23:48 00:00 Temp 97.0 97.0 Pulse 68 104 81 Resp 23 B/P (MAP) 112/52 (72) 113/61 (78) 103/67 (79) Pulse Ox 92 92 96 99 O2 Delivery Nasal Cannula Nasal Cannula BiPAP/CPAP BiPAP/CPAP O2 Flow Rate 3.0 3.0 04/02/17 04/02/17 04/02/17 04/02/17 00:00 01:00 02:00 03:00 Pulse 81 93 91 Resp B/P (MAP) 100/55 (70) 112/55 (74) 112/47 (68) Pulse Ox 99 99 99 O2 Delivery Bi-pap BiPAP/CPAP BiPAP/CPAP BiPAP/CPAP 04/02/17 04/02/17 04/02/17 04/02/17 03:25 03:58 04:00 04:00 Temp 97.8 97.8 Pulse 104 Resp 27 33 B/P (MAP) 134/51 (78) Pulse Ox 96 95 98 O2 Delivery BiPAP/CPAP Nasal Cannula Nasal Cannula Bi-pap O2 Flow Rate 3.0 3.0 04/02/17 04/02/17 04/02/17 04/02/17 04:58 05:00 05:38 06:00 Pulse 94 103 Resp 23 23 22 B/P (MAP) 91/61 (71) 93/64 (74) Pulse Ox 98 99 96 99 O2 Delivery Nasal Cannula Nasal Cannula BiPAP/CPAP Nasal Cannula O2 Flow Rate 3.0 3.0 3.0 04/02/17 04/02/17 04/02/17 04/02/17 07:00 08:00 08:00 08:12 Pulse 94 93 Resp 20 B/P (MAP) 92/61 (71) 99/58 Pulse Ox 99 O2 Delivery Nasal Cannula Nasal Cannula O2 Flow Rate 3.0 3.0 3.0 04/02/17 04/02/17 09:00 10:00 Pulse 100 95 Resp 22 B/P (MAP) 117/82 (94) 81/54 (63) Pulse Ox 99 99 O2 Delivery Nasal Cannula BiPAP/CPAP O2 Flow Rate 3.0 Intake and Output 04/01/17 04/01/17 04/02/17 15:00 23:00 07:00 Intake Total 470 ml 1085 ml 1180 ml Output Total 265 ml 750 ml 445 ml Balance 205 ml 335 ml 735 ml DANNY MEZA MD Apr 02, 2017 10:32
--- NOTE | 2017-04-02 11:30 | PDOC ---
PULMONARY PROGRESS NOTES Subjective PT ON BIPAP , NO INCREASE SOA Vitals Vital Signs Date Time Temp Pulse Resp B/P (MAP) Pulse Ox O2 Delivery O2 Flow Rate FiO2 04/02/17 11:00 97.2 90 24 89/50 (63) 99 Nasal Cannula 3.0 97.2 General: Alert, No acute distress Lungs: Other (decrease bs) Cardiovascular: S1, S2 Abdomen: Soft, Non-tender Neuro Exam: Alert Extremities: Other (1+edema) Skin: Warm Labs Laboratory Tests Test 03/31/17 11:55 03/31/17 18:45 03/31/17 20:46 04/01/17 06:40 Glucose (Fingerstick) 138 mg/dL (70-99) 154 mg/dL (70-99) Sodium Level 137 mmol/L (136-145) Potassium Level 3.5 mmol/L (3.5-5.1) Chloride Level 105 mmol/L (98-107) Carbon Dioxide Level 29 mmol/L (21-32) Anion Gap 3 (6-14) Blood Urea Nitrogen 12 mg/dL (7-20) Creatinine 0.6 mg/dL (0.6-1.0) Estimated GFR (Cockcroft-Gault) 98.5 BUN/Creatinine Ratio 20 (6-20) Glucose Level 154 mg/dL (70-99) Calcium Level 8.4 mg/dL (8.5-10.1) Total Bilirubin 0.5 mg/dL (0.2-1.0) Aspartate Amino Transf (AST/SGOT) 22 U/L (15-37) Alanine Aminotransferase (ALT/SGPT) 14 U/L (14-59) Alkaline Phosphatase 83 U/L (46-116) Total Protein 4.6 g/dL (6.4-8.2) Albumin 1.4 g/dL (3.4-5.0) Albumin/Globulin Ratio 0.4 (1.0-1.7) White Blood Count 6.3 x10^3/uL (4.0-11.0) Red Blood Count 3.14 x10^6/uL (3.50-5.40) Hemoglobin 8.9 g/dL (12.0-15.5) Hematocrit 27.4 % (36.0-47.0) Mean Corpuscular Volume 87 fL (79-100) Mean Corpuscular Hemoglobin 29 pg (25-35) Mean Corpuscular Hemoglobin Concent 33 g/dL (31-37) Red Cell Distribution Width 17.3 % (11.5-14.5) Platelet Count 102 x10^3/uL (140-400) Neutrophils (%) (Auto) 68 % (31-73) Lymphocytes (%) (Auto) 20 % (24-48) Monocytes (%) (Auto) 11 % (0-9) Eosinophils (%) (Auto) 1 % (0-3) Basophils (%) (Auto) 0 % (0-3) Neutrophils # (Auto) 4.3 x10^3uL (1.8-7.7) Lymphocytes # (Auto) 1.3 x10^3/uL (1.0-4.8) Monocytes # (Auto) 0.7 x10^3/uL (0.0-1.1) Eosinophils # (Auto) 0.1 x10^3/uL (0.0-0.7) Basophils # (Auto) 0.0 x10^3/uL (0.0-0.2) Test 04/01/17 20:50 04/01/17 23:50 04/02/17 05:10 Glucose (Fingerstick) 160 mg/dL (70-99) 152 mg/dL (70-99) White Blood Count 6.8 x10^3/uL (4.0-11.0) Red Blood Count 2.92 x10^6/uL (3.50-5.40) Hemoglobin 8.4 g/dL (12.0-15.5) Hematocrit 25.7 % (36.0-47.0) Mean Corpuscular Volume 88 fL (79-100) Mean Corpuscular Hemoglobin 29 pg (25-35) Mean Corpuscular Hemoglobin Concent 33 g/dL (31-37) Red Cell Distribution Width 16.6 % (11.5-14.5) Platelet Count 156 x10^3/uL (140-400) Neutrophils (%) (Auto) 75 % (31-73) Lymphocytes (%) (Auto) 15 % (24-48) Monocytes (%) (Auto) 9 % (0-9) Eosinophils (%) (Auto) 1 % (0-3) Basophils (%) (Auto) 0 % (0-3) Neutrophils # (Auto) 5.1 x10^3uL (1.8-7.7) Lymphocytes # (Auto) 1.0 x10^3/uL (1.0-4.8) Monocytes # (Auto) 0.6 x10^3/uL (0.0-1.1) Eosinophils # (Auto) 0.1 x10^3/uL (0.0-0.7) Basophils # (Auto) 0.0 x10^3/uL (0.0-0.2) Creatine Kinase 94 U/L (26-192) Laboratory Tests Test 04/01/17 20:50 04/01/17 23:50 04/02/17 05:10 Glucose (Fingerstick) 160 mg/dL (70-99) 152 mg/dL (70-99) White Blood Count 6.8 x10^3/uL (4.0-11.0) Red Blood Count 2.92 x10^6/uL (3.50-5.40) Hemoglobin 8.4 g/dL (12.0-15.5) Hematocrit 25.7 % (36.0-47.0) Mean Corpuscular Volume 88 fL (79-100) Mean Corpuscular Hemoglobin 29 pg (25-35) Mean Corpuscular Hemoglobin Concent 33 g/dL (31-37) Red Cell Distribution Width 16.6 % (11.5-14.5) Platelet Count 156 x10^3/uL (140-400) Neutrophils (%) (Auto) 75 % (31-73) Lymphocytes (%) (Auto) 15 % (24-48) Monocytes (%) (Auto) 9 % (0-9) Eosinophils (%) (Auto) 1 % (0-3) Basophils (%) (Auto) 0 % (0-3) Neutrophils # (Auto) 5.1 x10^3uL (1.8-7.7) Lymphocytes # (Auto) 1.0 x10^3/uL (1.0-4.8) Monocytes # (Auto) 0.6 x10^3/uL (0.0-1.1) Eosinophils # (Auto) 0.1 x10^3/uL (0.0-0.7) Basophils # (Auto) 0.0 x10^3/uL (0.0-0.2) Creatine Kinase 94 U/L (26-192) Medications Active Scripts Medications Dose Route/Sig Max Daily Dose Days Date Category Flagyl (Metronidazole) 500 Mg Tablet 1 Tab PO BID 03/01/17 Reported Cefpodoxime Proxetil 200 Mg Tablet 1 Tab PO BID 03/01/17 Reported Ferrous Sulfate 325 Mg Tablet 1 Tab PO DAILY 02/23/17 Reported Lasix (Furosemide) 40 Mg Tablet 40 Mg PO QODAY 02/23/17 Reported Potassium Chloride 10 Meq Capsule.er 10 Meq PO QODAY 02/23/17 Reported Metoprolol Tartrate 25 Mg Tablet 12.5 Mg PO BID 01/31/17 Reported Atorvastatin Calcium 40 Mg Tablet 40 Mg PO HS 01/31/17 Reported Clopidogrel (Clopidogrel Bisulfate) 75 Mg Tablet 1 Tab PO DAILY 08/24/15 Reported Diclofenac Sodium 75 Mg Tablet.dr 75 Mg PO DAILY 12/21/14 Reported Ranitidine Hcl 150 Mg Tablet 1 Tab PO BID 12/21/14 Reported Aspirin 81 Mg Tab.chew 1 Tab PO DAILY 04/15/14 Reported Impression . 1. Xbyib-dn-[id number] respiratory failure, expected status post surgical intervention. 2. Status post laparoscopic converted to open exploration for extensive lysis of adhesion, removal of old mesh, subtotal colectomy, small bowel resection and incisional hernia repair. 3. Obesity, body mass index of 35. 4. Leukocytosis. 5. Enterocutaneous fistula. 6. Fever. 7. Abdominal abscess. 8. Ventral hernia, status post repair. 9. small basal effusions Plan . TRY OFF BIPAP MONITOR EFFUSIONS FOR NOW VENOUS DOPPLER NEGATIVE/ CT NEGATIVE FOR PE MONITOR PLATELET / MUCH IMPROVED ANXIETY/ ON SCHEDULED ATIVAN NO PE ON CT OF CHEST STACI CORRAL MD Apr 02, 2017 11:30
[2017-04-02 11:41] LABS: FOLATE 5.07 ng/ml (3.2-20.0)
[2017-04-02] MEDS: FLUCONAZOLE 200MG/100ML PREMIX 100 ML IV SCH (12:09)
[2017-04-02 14:42] LABS: % SAT IRON 13 % (15-34); IRON,SERUM 12 ug/dL (50-170)
[2017-04-02] MEDS: IV NORMAL SALINE 1000ML BAG 1,000 ML IV SCH (20:43)
[2017-04-02] MEDS: INSULIN DETEMIR 300 UNITS/3 ML INSULN.PEN. SQ SCH (22:13)
[2017-04-03] VITALS (7 sets, daily range): BP systolic 108–144; BP diastolic 51–75
[2017-04-03] MEDS: IV DEXTROSE 5%-LACT RINGERS 1,000 ML IV SCH ×3 (02:25→21:38)
[2017-04-03] MEDS: ASPIRIN CHEWABLE 81 MG TABLET. PO SCH (08:52)
[2017-04-03] MEDS: LORazepam 0.5 MG TABLET PO SCH ×2 (08:52→21:43)
[2017-04-03] MEDS: METOPROLOL SUCC 24HR ER 25 MG TAB.ER.24H. PO SCH (08:53)
[2017-04-03] MEDS: FERROUS SULFATE 325 MG TABLET. PO SCH (08:53)
[2017-04-03] MEDS: CIPROFLOXACIN 400MG PREMIX 200 ML IV SCH ×2 (08:54→21:27)
[2017-04-03] MEDS: PANTOPRAZOLE IV PUSH 40 MG VIAL. IVP SCH (08:54)
[2017-04-03] MEDS: DAPTOMYCIN IV SCH (08:58)
[2017-04-03] MEDS: NORMAL SALINE IV SCH (08:58)
--- NOTE | 2017-04-03 09:10 | PDOC ---
Infectious Disease Note Subjective Subjective pt now back on bipap since this am as she got off for 5 mins and requested it back again Denies SOA/CP/abdominal pain Denies muscle aches ROS ROS GEN: Denies fevers, chills, sweats HEENT: Denies blurred vision, sore throat CV: Denies chest pain RESP: as above, no cough GI: Denies n/v/d NEURO: Denies confusion, dizziness MSK: Denies weakness, joint pain/swelling Vital Sign Vital Signs Vital Signs Date Time Temp Pulse Resp B/P (MAP) Pulse Ox O2 Delivery O2 Flow Rate FiO2 04/03/17 08:53 106 153/79 04/03/17 08:18 94 BiPAP/CPAP 04/03/17 04:13 97.2 33 97.2 04/03/17 04:00 3.0 Physical Exam PHYSICAL EXAM GENERAL: Alert, HEENT: anicteric NECK: Supple, LUNGS: coarse bronchial bs anteriorly HEART: S1S2, tachy ABD: Soft, dressing intact, dry, ileostomy with liquid stool EXT: some edema, no cyanosis 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: Alert, oriented x 3, nonfocal SKIN: No gen rash IV: ok Labs Lab Laboratory Tests Test 04/02/17 10:59 04/02/17 21:46 04/03/17 08:29 Iron Level 12 ug/dL (50-170) Total Iron Binding Capacity 90 ug/dL (250-450) Iron Saturation 13 % (15-34) Ferritin 784 ng/mL (8-252) Vitamin B12 Level 565 pg/mL (247-911) Serum Folate 5.07 ng/ml (3.2-20.0) Glucose (Fingerstick) 156 mg/dL (70-99) 172 mg/dL (70-99) Micro RUN DATE: 03/16/17 PAGE 1 RUN TIME: 0736 [facility] [address] [place] [address] Jorge A Laen M.D., [employer] PATIENT: SAFIA MIRANDA ACCT: [id number] LOC: [address] [place] [address] U : [id number] AGE/SX: 71/F ROOM: 400 REG : 03/09/[address]: MILENA MCMILLAN MD : 1945 BED: 1 DIS : STATUS: ADM IN TLOC: SPEC #: [id number] TIFFANIE: 03/12/17 STATUS: COMP REQ #: [id number] RECD: 03/12/17 [facility] DR: CRISPIN HEREDIA MD SOURCE: ABDOMEN ENTR: 03/12/[address] [facility] [address]: SANDRA RODNEY MD SPDESC: ABSCESS MILENA MCMILLAN MD ORDERED: ANAER-AERO CULT Procedure Result ANAEROBIC-AEROBIC CULTURE Final Final report ANAEROBIC RES 1 Final Comment No anaerobic growth in 72 hours. AEROBIC CULT Final Final report AEROBIC RES 1 Final Klebsiella pneumoniae Moderate growth AEROBIC RES 2 Final Yeast Moderate growth Request for further identification must be made within 1 week. AEROBIC RES 3 Final Comment Vancomycin-resistant Enterococcus (Enterococcus faecium) Heavy growth AEROBIC RES 4 Final Comment Pseudomonas aeruginosa Moderate growth CONTINUED ON NEXT PAGE RUN DATE: 03/16/17 PAGE 2 RUN TIME: 735 [facility] [address] [place] [address] M.D., [employer] SPEC: [id number] PATIENT: SAFIA MIRANDA [id number] ( Continued) Procedure Result ANTIMICROBIAL SUSCEPTIBILITY Final Comment S = Susceptible; I = Intermediate; R = Resistant P = Positive; N = Negative MICS are expressed in micrograms per mL Antibiotic RSLT#1 RSLT#2 RSLT#3 RSLT#4 Amikacin S Amoxicillin/Clavulanic Acid S Ampicillin R Cefepime S S Ceftazidime S Ceftriaxone S Cefuroxime I Ciprofloxacin S S Ertapenem S Gentamicin S S Imipenem S S Levofloxacin S S Linezolid S Meropenem S Penicillin R Piperacillin R S Quinupristin/Dalfopristin S Tetracycline S Ticarcillin R Tobramycin S S Trimethoprim/Sulfa S Vancomycin R Performed at: [facility], [place], [place] [id number] Intelligence Manager: Ashia Rogers MD, Phone: [phone] END OF REPORT Objective Assessment Byoob-fr-bjvhool respiratory failure, status post surgery, now on bipap, improving slowly Status post laparoscopic converted to open exploration for extensive lysis of adhesion, removal of old mesh, subtotal colectomy, small bowel resection and incisional hernia repair. Abdominal abscess s/p drain c/s + Klebsiella ( R to Zosyn ,Cipro/Levo S) and enterococcus amp resistant,VRE and PSAE ( R to ticarcillin only otherwise sensitive, Cipro/Levo S) (yeast likely contaminant) Ventral hernia DM HTN thrombocytopenia resolved anemia pleural effusions Plan Plan of Care Cont Fluconazole and dapto Cipro (changed from meropenem on 03/30 for possible B lactam induced thrombocytopenia) CK 94 continue supportive care HUMAIRA RODNEY MD Apr 03, 2017 09:09
[2017-04-03] MEDS: FLUCONAZOLE 200MG/100ML PREMIX 100 ML IV SCH (11:56)
--- NOTE | 2017-04-03 12:07 | PDOC ---
SURGICAL PROGRESS NOTE Subjective resting no complaints at this time Vital Signs Vital Signs Date Time Temp Pulse Resp B/P (MAP) Pulse Ox O2 Delivery O2 Flow Rate FiO2 04/03/17 11:42 96 BiPAP/CPAP 04/03/17 11:12 98.4 101 32 111/68 (82) 98.4 04/03/17 08:00 3.0 I&O Intake and Output 04/03/17 07:00 Intake Total 2931 ml Output Total 510 ml Balance 2421 ml Intake Oral 820 ml IV Total 2111 ml Output Urine Total 510 ml PATIENT HAS A HOPPER: Yes General: Cooperative, No acute distress Abdomen: Soft, Other (ostomy with liquid stool, dressing clean) Labs Laboratory Tests Test 04/01/17 20:50 04/01/17 23:50 04/02/17 05:10 04/02/17 10:59 Glucose (Fingerstick) 160 mg/dL (70-99) 152 mg/dL (70-99) White Blood Count 6.8 x10^3/uL (4.0-11.0) Red Blood Count 2.92 x10^6/uL (3.50-5.40) Hemoglobin 8.4 g/dL (12.0-15.5) Hematocrit 25.7 % (36.0-47.0) Mean Corpuscular Volume 88 fL (79-100) Mean Corpuscular Hemoglobin 29 pg (25-35) Mean Corpuscular Hemoglobin Concent 33 g/dL (31-37) Red Cell Distribution Width 16.6 % (11.5-14.5) Platelet Count 156 x10^3/uL (140-400) Neutrophils (%) (Auto) 75 % (31-73) Lymphocytes (%) (Auto) 15 % (24-48) Monocytes (%) (Auto) 9 % (0-9) Eosinophils (%) (Auto) 1 % (0-3) Basophils (%) (Auto) 0 % (0-3) Neutrophils # (Auto) 5.1 x10^3uL (1.8-7.7) Lymphocytes # (Auto) 1.0 x10^3/uL (1.0-4.8) Monocytes # (Auto) 0.6 x10^3/uL (0.0-1.1) Eosinophils # (Auto) 0.1 x10^3/uL (0.0-0.7) Basophils # (Auto) 0.0 x10^3/uL (0.0-0.2) Reticulocyte Count (auto) 0.5 % (0.5-2.5) Creatine Kinase 94 U/L (26-192) Iron Level 12 ug/dL (50-170) Total Iron Binding Capacity 90 ug/dL (250-450) Iron Saturation 13 % (15-34) Ferritin 784 ng/mL (8-252) Vitamin B12 Level 565 pg/mL (247-911) Serum Folate 5.07 ng/ml (3.2-20.0) Test 04/02/17 21:46 04/03/17 08:29 04/03/17 11:41 Glucose (Fingerstick) 156 mg/dL (70-99) 172 mg/dL (70-99) 162 mg/dL (70-99) Laboratory Tests Test 04/02/17 21:46 04/03/17 08:29 04/03/17 11:41 Glucose (Fingerstick) 156 mg/dL (70-99) 172 mg/dL (70-99) 162 mg/dL (70-99) Problem List Problems Medical Problems: (1) Abdominal abscess Status: Acute (2) Abdominal pain Status: Acute Assessment/Plan supportive care TPN ordered will have wound care eval--wound to lower portion of incision Problems: DYLON OCHOA APRN Apr 03, 2017 12:07
--- NOTE | 2017-04-03 12:56 | PDOC ---
PROGRESS NOTES Subjective Subjective HPI -f/u of Thrombocytopenia. ROS - no bleed Objective Objective Vital Signs Date Time Temp Pulse Resp B/P (MAP) Pulse Ox O2 Delivery O2 Flow Rate FiO2 04/03/17 12:00 3.0 04/03/17 11:42 96 BiPAP/CPAP 04/03/17 11:12 98.4 101 32 111/68 (82) 98.4 Intake and Output 04/03/17 07:00 Intake Total 2931 ml Output Total 510 ml Balance 2421 ml Intake Oral 820 ml IV Total 2111 ml Output Urine Total 510 ml Physical Exam Heart: Normal S1, Normal S2 General: Alert, Oriented X3 Lungs: Clear to auscultation Assessment Assessment Problems Medical Problems: (1) Abdominal abscess Status: Acute (2) Abdominal pain Status: Acute A/P: 1. Thrombocytopenia. Improved. Plt count 156. 2. Anemia. Most likely multifactorial. Iron studies are suggestive of anemia of chronic disease. /B12 normal. 3. Abscess. Management as per other team 4. Status post laparoscopic converted to open exploration for extensive lysis of adhesion, removal of old mesh, subtotal colectomy, small bowel resection and incisional hernia repair. Comment Review of Relevant I have reviewed the following items chito (where applicable) has been applied. Labs Laboratory Tests Test 04/01/17 20:50 04/01/17 23:50 04/02/17 05:10 04/02/17 10:59 Glucose (Fingerstick) 160 mg/dL (70-99) 152 mg/dL (70-99) White Blood Count 6.8 x10^3/uL (4.0-11.0) Red Blood Count 2.92 x10^6/uL (3.50-5.40) Hemoglobin 8.4 g/dL (12.0-15.5) Hematocrit 25.7 % (36.0-47.0) Mean Corpuscular Volume 88 fL (79-100) Mean Corpuscular Hemoglobin 29 pg (25-35) Mean Corpuscular Hemoglobin Concent 33 g/dL (31-37) Red Cell Distribution Width 16.6 % (11.5-14.5) Platelet Count 156 x10^3/uL (140-400) Neutrophils (%) (Auto) 75 % (31-73) Lymphocytes (%) (Auto) 15 % (24-48) Monocytes (%) (Auto) 9 % (0-9) Eosinophils (%) (Auto) 1 % (0-3) Basophils (%) (Auto) 0 % (0-3) Neutrophils # (Auto) 5.1 x10^3uL (1.8-7.7) Lymphocytes # (Auto) 1.0 x10^3/uL (1.0-4.8) Monocytes # (Auto) 0.6 x10^3/uL (0.0-1.1) Eosinophils # (Auto) 0.1 x10^3/uL (0.0-0.7) Basophils # (Auto) 0.0 x10^3/uL (0.0-0.2) Reticulocyte Count (auto) 0.5 % (0.5-2.5) Creatine Kinase 94 U/L (26-192) Iron Level 12 ug/dL (50-170) Total Iron Binding Capacity 90 ug/dL (250-450) Iron Saturation 13 % (15-34) Ferritin 784 ng/mL (8-252) Vitamin B12 Level 565 pg/mL (247-911) Serum Folate 5.07 ng/ml (3.2-20.0) Test 04/02/17 21:46 04/03/17 08:29 04/03/17 11:41 Glucose (Fingerstick) 156 mg/dL (70-99) 172 mg/dL (70-99) 162 mg/dL (70-99) Laboratory Tests Test 04/02/17 21:46 04/03/17 08:29 04/03/17 11:41 Glucose (Fingerstick) 156 mg/dL (70-99) 172 mg/dL (70-99) 162 mg/dL (70-99) Microbiology 03/09/17 Blood Culture - Final, Complete NO GROWTH AFTER 5 DAYS 03/09/17 Urine Culture - Final, Complete 03/09/17 Urine Culture Result 1 (KULDEEP) - Final, Complete 03/12/17 Fungal Culture - Final, Complete 03/12/17 Fungal Culture Result 1 - Final, Complete Medications Current Medications Ondansetron HCl (Zofran) 4 mg 1X ONCE IV Last administered on 03/09/17t 08:30 ; Start 03/09/17 at 08:15; Stop 03/09/17 at 08:16; Status DC Iohexol (Omnipaque 300 Mg/ml) 75 ml 1X ONCE IV Last administered on 03/09/17 08:50; Start 03/09/17 at 08:45; Stop 03/09/17 at 08:46; Status DC Info (Do NOT chart on this entry -- for MONITORING) 1 each PRN DAILY PRN MC SEE COMMENTS; Start 03/09/17 at 08:45; Stop 03/11/17 at 08:44; Status DC Ceftriaxone Sodium 50 ml @ 100 mls/hr 1X ONCE IV ; Start 03/09/17 at 09:30; Stop 03/09/17 at 09:55; Status DC Sodium Chloride 1,000 ml @ 1,000 mls/hr 1X ONCE IV Last administered on 09:55; Start 03/09/17 at 10:00; Stop 03/09/17 at 10:59; Status DC Ondansetron HCl (Zofran) 4 mg PRN Q8HRS PRN IV NAUSEA/VOMITING; Start 03/09/17 at 10:30; Stop 03/10/17 at 10:29; Status DC Meropenem 500 mg/ Sodium Chloride 50 ml @ 100 mls/hr Q8HRS IV Last administered on 03/16/17 06:09; Start 03/09/17 at 13:00; Stop 03/16/17 at 12: 59; Status DC Acetaminophen (Tylenol) 650 mg PRN QID PRN PO MILD PAIN / TEMP Last administered on 03/30/17 17:43; Start 03/09/17 at 20:30 Aspirin (Children'S Aspirin) 81 mg DAILY PO Last administered on 04/03/17 08: 52; Start 03/10/17 at 15:00 Clopidogrel Bisulfate (Plavix) 75 mg DAILY PO Last administered on 03/19/17 10:00; Start 03/10/17 at 15:00; Stop 03/22/17 at 09:10; Status DC Ferrous Sulfate (Feosol) 325 mg DAILY PO Last administered on 04/03/17 08:53 ; Start 03/10/17 at 15:00 Metoprolol Tartrate (Lopressor) 12.5 mg BID PO Last administered on 03/10/17 16:01; Start 03/10/17 at 15:00; Stop 03/10/17 at 21:01; Status DC Diclofenac Sodium (Voltaren) 75 mg DAILY PO Last administered on 03/23/17 09: 23; Start 03/10/17 at 14:30; Stop 03/29/17 at 10:50; Status DC Famotidine (Pepcid) 20 mg QHS PO Last administered on 03/24/17 21:20; Start 03/10/17 at 21:00; Stop 03/26/17 at 09:35; Status DC Glimepiride (Amaryl) 1 mg DAILY PO Last administered on 03/13/17 09:25; Start 03/11/17 at 15:00; Stop 03/13/17 at 17:02; Status DC Sodium Chloride 1,000 ml @ 100 mls/hr 1X ONCE IV Last administered on 21:00; Start 03/10/17 at 21:00; Stop 03/11/17 at 06:59; Status DC Lidocaine/Sodium Bicarbonate (Buffered Lidocaine 1%) 20 ml STK-MED ONCE IJ ; Start 03/12/17 at 13:05; Stop 03/12/17 at 13:06; Status DC Fentanyl Citrate (Fentanyl 2ml Vial) 100 mcg STK-MED ONCE .ROUTE ; Start at 13:20; Stop 03/12/17 at 13:21; Status DC Midazolam HCl (Versed) 2 mg STK-MED ONCE .ROUTE ; Start 03/12/17 at 13:20; Stop 03/12/17 at 13:21; Status DC Flumazenil (Romazicon) 0.5 mg STK-MED ONCE IV ; Start 03/12/17 at 13:20; Stop 03/12/17 at 13:21; Status DC Naloxone HCl (Narcan) 0.4 mg STK-MED ONCE .ROUTE ; Start 03/12/17 at 13:20; Stop 03/12/17 at 13:21; Status DC Lidocaine/Sodium Bicarbonate (Buffered Lidocaine 1%) 20 ml 1X ONCE IJ Last administered on 03/12/17 13:50; Start 03/12/17 at 13:30; Stop 03/12/17 at 13:33 ; Status DC Midazolam HCl (Versed) 2 mg 1X ONCE IV Last administered on 11/6/17at 13:50; Start 03/12/17 at 13:30; Stop 03/12/17 at 13:33; Status DC Fentanyl Citrate (Fentanyl 2ml Vial) 100 mcg 1X ONCE IV Last administered on 03/12/17 13:50; Start 03/12/17 at 13:30; Stop 03/12/17 at 13:33; Status DC Lactobacillus Rhamnosus (Culturelle) 1 cap BID PO Last administered on 21:20; Start 03/12/17 at 21:00; Stop 03/25/17 at 21:06; Status DC Acetaminophen/ Hydrocodone Bitart (Lortab 7.5/325) 1 tab PRN Q6HRS PRN PO MODERATE - SEVERE PAIN Last administered on 04/02/17 18:14; Start 03/12/17 at 18:15 Ondansetron HCl (Zofran) 4 mg PRN Q6HRS PRN IV NAUSEA/VOMITING, 1ST CHOICE Last administered on 03/25/17 04:53; Start 03/13/17 at 09:00 Furosemide (Lasix) 40 mg QODAY PO Last administered on 03/22/17 09:39; Start 03/14/17 at 09:00; Stop 03/26/17 at 09:00; Status DC Glimepiride (Amaryl) 1 mg DAILY08 PO Last administered on 03/22/17 09:40; Start 03/14/17 at 08:00; Stop 03/23/17 at 08:52; Status DC Linezolid (Zyvox) 600 mg BID PO Last administered on 03/24/17 21:20; Start 03/14/17 at 13:15; Stop 03/25/17 at 10:49; Status DC Meropenem (Merrem) 500 mg Q8HRS IVP Last administered on 03/30/17 06:04; Start 03/16/17 at 14:00; Stop 03/30/17 at 07:49; Status DC Iohexol (Omnipaque 240 Mg/ml) 50 ml STK-MED ONCE .ROUTE ; Start 03/19/17 at 13: 11; Stop 03/19/17 at 13:12; Status DC Iohexol (Omnipaque 240 Mg/ml) 10 ml 1X ONCE IJ Last administered on 11/13/ 17at 14:07; Start 03/19/17 at 14:00; Stop 03/19/17 at 14:01; Status DC Info (Do NOT chart on this entry -- for MONITORING) 1 each PRN DAILY PRN MC SEE COMMENTS; Start 03/19/17 at 14:00; Stop 03/21/17 at 13:59; Status DC Iohexol (Omnipaque 240 Mg/ml) 50 ml STK-MED ONCE .ROUTE ; Start 03/19/17 at 13: 55; Stop 03/19/17 at 13:56; Status DC Fluconazole (Diflucan) 200 mg DAILY PO Last administered on 03/23/17 09:24; Start 03/22/17 at 09:30; Stop 03/25/17 at 10:51; Status DC Metoprolol Succinate (Toprol Xl) 12.5 mg DAILY PO Last administered on 08:53; Start 03/23/17 at 09:00 Glimepiride (Amaryl) 0.5 mg DAILY08 PO ; Start 03/24/17 at 08:00; Stop at 13:05; Status DC Morphine Sulfate 1 mg PRN Q10MIN PRN IV SEVERE PAIN; Start 03/26/17 at 07:00; Stop 03/26/17 at 07:00; Status DC Ringer's Solution 1,000 ml @ 30 mls/hr Q24H IV ; Start 03/26/17 at 07:00; Stop 03/26/17 at 07:00; Status DC Lidocaine HCl (Xylocaine-Mpf 1% Vial) 2 ml PRN 1X PRN ID PRIOR TO IV START; Start 03/26/17 at 07:00; Stop 03/26/17 at 07:00; Status DC Hydromorphone HCl (Dilaudid) 0.5 mg PRN Q10MIN PRN IV SEV PAIN, Second choice; Start 03/26/17 at 07:00; Stop 03/27/17 at 06:59; Status Cancel Prochlorperazine Edisylate (Compazine) 5 mg PACU PRN PRN IV NAUSEA, MRX1 Last administered on 03/25/17 07:45; Start 03/26/17 at 07:00; Stop 03/26/17 at 07 :00; Status DC Morphine Sulfate 1 mg PRN Q10MIN PRN IV SEVERE PAIN; Start 03/24/17 at 07:45; Stop 03/25/17 at 07:44; Status DC Ringer's Solution 1,000 ml @ 30 mls/hr Q24H IV Last administered on t 14:15; Start 03/24/17 at 07:32; Stop 03/24/17 at 19:31; Status DC Lidocaine HCl (Xylocaine-Mpf 1% Vial) 2 ml 1X PRN PRN ID IV START; Start 03/24 at 07:45; Stop 03/25/17 at 07:44; Status DC Hydromorphone HCl (Dilaudid) 0.5 mg PRN Q10MIN PRN IV SEV PAIN, Second choice; Start 03/24/17 at 07:45; Stop 03/25/17 at 07:44; Status DC Prochlorperazine Edisylate (Compazine) 5 mg PACU PRN PRN IV NAUSEA, MRX1; Start 03/24/17 at 07:45; Stop 03/25/17 at 07:44; Status DC Bupivacaine HCl/ Epinephrine Bitart (Sensorcain-Mpf Epi 0.5%-[id number]) 30 ml STK -MED ONCE .ROUTE Last administered on 03/24/17t 15:56; Start 03/24/17 at 10: 28; Stop 03/24/17 at 10:29; Status DC Neostigmine Methylsulfate (Bloxiverz) 10 mg STK-MED ONCE .ROUTE ; Start at 14:38; Stop 03/24/17 at 14:39; Status DC Rocuronium [place] (Zemuron) 50 mg STK-MED ONCE .ROUTE ; Start 03/24/17 at 14: 38; Stop 03/24/17 at 14:39; Status DC Fentanyl Citrate (Fentanyl 2ml Vial) 100 mcg STK-MED ONCE .ROUTE ; Start at 14:38; Stop 03/24/17 at 14:39; Status DC Phenylephrine HCl 1 mg STK-MED ONCE IV ; Start 03/24/17 at 14:40; Stop at 14:41; Status DC Lidocaine HCl (Lidocaine Pf 2% Vial) 5 ml STK-MED ONCE .ROUTE ; Start 03/24/17 at 14:40; Stop 03/24/17 at 14:41; Status DC Dexamethasone Sodium Phosphate (Decadron) 20 mg STK-MED ONCE .ROUTE ; Start at 14:40; Stop 03/24/17 at 14:41; Status DC Ondansetron HCl (Zofran) 4 mg STK-MED ONCE .ROUTE ; Start 03/24/17 at 14:40; Stop 03/24/17 at 14:41; Status DC Propofol 20 ml @ As Directed STK-MED ONCE IV ; Start 03/24/17 at 14:40; Stop 03/24/17 at 14:41; Status DC Glycopyrrolate (Robinul) 1 mg STK-MED ONCE .ROUTE ; Start 03/24/17 at 15:11; Stop 03/24/17 at 15:12; Status DC Rocuronium [place] (Zemuron) 50 mg STK-MED ONCE .ROUTE ; Start 03/24/17 at 15: 53; Stop 03/24/17 at 15:54; Status DC Fentanyl Citrate (Fentanyl 2ml Vial) 100 mcg STK-MED ONCE .ROUTE ; Start at 16:01; Stop 03/24/17 at 16:02; Status DC Morphine Sulfate 10 mg STK-MED ONCE .ROUTE ; Start 03/24/17 at 16:02; Stop at 16:03; Status DC Albumin Human 500 ml @ As Directed STK-MED ONCE IV ; Start 03/24/17 at 17:03; Stop 03/24/17 at 17:04; Status DC Phenylephrine HCl ([place]-Synephrine Inj) 10 mg STK-MED ONCE .ROUTE ; Start at 17:27; Stop 03/24/17 at 17:28; Status DC Rocuronium [place] (Zemuron) 100 mg STK-MED ONCE .ROUTE ; Start 03/24/17 at 17: 57; Stop 03/24/17 at 17:58; Status DC Enoxaparin Sodium (Lovenox 40mg Syringe) 40 mg Q24H SQ Last administered on t 20:51; Start 03/24/17 at 20:45; Stop 03/26/17 at 19:34; Status DC Sodium Chloride (Normal Saline Flush) 3 ml QSHIFT PRN IV AFTER MEDS AND BLOOD DRAWS; Start 03/24/17 at 20:45 Ringer's Solution 1,000 ml @ 100 mls/hr Q10H IV Last administered on 12:32; Start 03/24/17 at 20:43; Stop 03/25/17 at 16:52; Status DC Naloxone HCl (Narcan) 0.4 mg PRN Q2MIN PRN IV SEE INSTRUCTIONS; Start at 20:45 Sodium Chloride 1,000 ml @ 25 mls/hr Q24H IV Last administered on 03/27/17 12:08; Start 03/24/17 at 20:43 Hydromorphone HCl 30 ml @ 0 mls/hr CONT PRN PRN IV PROTOCOL Last administered on 03/24/17 23:16; Start 03/24/17 at 20:45 Prochlorperazine Edisylate (Compazine) 5 mg PRN Q4HRS PRN IV NAUSEA/VOMITING, 2ND CHOICE; Start 03/25/17 at 07:45 Pantoprazole Sodium (PROTONIX VIAL for IV PUSH) 40 mg DAILYAC IVP Last administered on 04/03/17 08:54; Start 03/25/17 at 10:15 Linezolid 300 ml @ 300 mls/hr Q12HR IV Last administered on 03/26/17 20:54; Start 03/25/17 at 11:00; Stop 03/27/17 at 08:05; Status DC Fluconazole/ Sodium Chloride 100 ml @ 100 mls/hr Q24H IV Last administered on 04/03/17 11:56; Start 03/25/17 at 11:00 Dextrose/Lactated Ringer's 1,000 ml @ 75 mls/hr [id number] IV Last administered on 04/03/17 08:54; Start 03/25/17 at 17:00 Famotidine (Pepcid Vial) 40 mg QHS IVP Last administered on 03/28/17 21:35; Start 03/25/17 at 21:00; Stop 03/29/17 at 08:02; Status DC Lorazepam (Ativan) 0.5 mg 1X ONCE IV ; Start 03/26/17 at 07:00; Stop at 07:01; Status Cancel Lorazepam (Ativan) 0.5 mg PRN Q8HRS PRN PO ANXIETY / AGITATION; Start at 07:00; Status Cancel Furosemide (Lasix) 40 mg 1X ONCE IVP Last administered on 03/26/17 09:54; Start 03/26/17 at 09:00; Stop 03/26/17 at 09:01; Status DC Furosemide (Lasix) 20 mg DAILY IVP Last administered on 03/30/17 09:29; Start 03/27/17 at 09:00; Stop 03/31/17 at 12:22; Status DC Digoxin (Lanoxin) 250 mcg 1X ONCE IV Last administered on 03/26/17 15:06; Start 03/26/17 at 15:15; Stop 03/26/17 at 15:16; Status DC Iohexol (Omnipaque 300 Mg/ml) 75 ml 1X ONCE IV Last administered on 16:41; Start 03/26/17 at 16:45; Stop 03/26/17 at 16:46; Status DC Info (Do NOT chart on this entry -- for MONITORING) 1 each PRN DAILY PRN MC SEE COMMENTS; Start 03/26/17 at 16:45; Stop 03/28/17 at 16:44; Status DC Norepinephrine Bitartrate 250 ml @ As Directed STK-MED ONCE IV ; Start at 17:42; Stop 03/26/17 at 17:43; Status DC Norepinephrine Bitartrate 250 ml @ 0 mls/hr CONT PRN IV SEE I/O RECORD Last administered on 03/26/17 18:01; Start 03/26/17 at 18:00 Enoxaparin Sodium (Lovenox Per Pharmacy Treatment Dosing) 1 each PRN DAILY PRN MC SEE COMMENTS; Start 03/26/17 at 19:30; Stop 03/28/17 at 12:38; Status DC Enoxaparin Sodium (Lovenox 80mg Syringe) 80 mg Q12HR SQ Last administered on 21:51; Start 03/26/17 at 20:00; Stop 03/28/17 at 15:36; Status DC Daptomycin 460 mg/ Sodium Chloride 50 ml @ 100 mls/hr Q24H IV Last administered on 04/03/17 08:58; Start 03/27/17 at 09:00 Digoxin (Lanoxin) 250 mcg 1X ONCE IV Last administered on 03/27/17 12:09; Start 03/27/17 at 12:00; Stop 03/27/17 at 12:01; Status DC Insulin Detemir (Levemir) 5 units QHS SQ Last administered on 04/02/17 22:13 ; Start 03/27/17 at 21:00 Albumin Human 100 ml @ 100 mls/hr Q8H IV Last administered on 03/29/17 00:42 ; Start 03/28/17 at 09:00; Stop 03/29/17 at 01:59; Status DC Lorazepam (Ativan) 1 mg PRN Q6HRS PRN PO ANXIETY / AGITATION Last administered on 03/30/17 17:43; Start 03/28/17 at 16:00 Iohexol (Omnipaque 300 Mg/ml) 75 ml 1X ONCE IV Last administered on 16:00; Start 03/28/17 at 16:00; Stop 03/28/17 at 16:02; Status DC Info (Do NOT chart on this entry -- for MONITORING) 1 each PRN DAILY PRN MC SEE COMMENTS; Start 03/28/17 at 16:15; Stop 03/30/17 at 16:14; Status DC Fentanyl Citrate (Fentanyl 2ml Vial) 50 mcg PRN Q4HRS PRN IV PAIN Last administered on 04/01/17 08:14; Start 03/29/17 at 09:45 Ciprofloxacin/ Dextrose 200 ml @ 200 mls/hr Q12HR IV Last administered on 08:54; Start 03/30/17 at 09:00 Lorazepam (Ativan) 0.5 mg Q12HR PO Last administered on 04/03/17 08:52; Start 03/30/17 at 21:00 Dopamine HCl/ Dextrose 250 ml @ 15.155 mls/ hr CONT PRN IV SEE I/O RECORD Last administered on 04/02/17 22:56; Start 03/31/17 at 13:00 Info 1 each PRN DAILY PRN MC SEE COMMENTS; Start 04/03/17 at 12:15 Active Scripts Active Reported Flagyl (Metronidazole) 500 Mg Tablet 1 Tab PO BID Cefpodoxime Proxetil 200 Mg Tablet 1 Tab PO BID Ferrous Sulfate 325 Mg Tablet 1 Tab PO DAILY Lasix (Furosemide) 40 Mg Tablet 40 Mg PO QODAY Potassium Chloride 10 Meq Capsule.er 10 Meq PO QODAY Metoprolol Tartrate 25 Mg Tablet 12.5 Mg PO BID Atorvastatin Calcium 40 Mg Tablet 40 Mg PO HS Clopidogrel (Clopidogrel Bisulfate) 75 Mg Tablet 1 Tab PO DAILY Diclofenac Sodium 75 Mg Tablet.dr 75 Mg PO DAILY Ranitidine Hcl 150 Mg Tablet 1 Tab PO BID Aspirin 81 Mg Tab.chew 1 Tab PO DAILY Vitals/I & O Vital Sign - Last 24 Hours 04/02/17 04/02/17 04/02/17 04/02/17 13:00 13:37 14:00 15:00 Pulse 103 99 93 Resp 20 25 24 24 B/P (MAP) 127/55 (79) 122/74 (90) 100/48 (65) Pulse Ox 96 99 96 98 O2 Delivery Nasal Cannula Nasal Cannula BiPAP/CPAP Nasal Cannula O2 Flow Rate 3.0 3.0 04/02/17 04/02/17 04/02/17 04/02/17 16:01 18:14 20:05 20:30 Temp 97.6 97.6 Pulse 83 Resp 26 23 B/P (MAP) 102/54 (70) Pulse Ox 98 97 96 O2 Delivery Nasal Cannula BiPAP/CPAP BiPAP/CPAP O2 Flow Rate 3.0 3.0 04/02/17 04/02/17 04/02/17 04/02/17 20:30 20:30 20:42 23:36 Pulse Ox 96 O2 Delivery Bi-pap BiPAP/CPAP BiPAP/CPAP O2 Flow Rate 3.0 04/03/17 04/03/17 04/03/17 04/03/17 00:00 00:00 01:05 03:10 Temp 97.2 97.2 Pulse 109 Resp 33 B/P (MAP) 134/58 (83) Pulse Ox 97 O2 Delivery BiPAP/CPAP BiPAP/CPAP BiPAP/CPAP O2 Flow Rate 3.0 04/03/17 04/03/17 04/03/17 04/03/17 04:00 04:13 05:15 07:00 Temp 97.2 97.8 97.2 97.8 Pulse 109 93 Resp 33 29 B/P (MAP) 134/58 (83) 124/63 (83) Pulse Ox 97 95 O2 Delivery BiPAP/CPAP BiPAP/CPAP BiPAP/CPAP O2 Flow Rate 3.0 04/03/17 04/03/17 04/03/17 04/03/17 07:32 08:00 08:18 08:53 Pulse 106 B/P (MAP) 153/79 Pulse Ox 94 O2 Delivery Bi-pap BiPAP/CPAP O2 Flow Rate 3.0 04/03/17 04/03/17 04/03/17 04/03/17 10:10 11:12 11:42 12:00 Temp 98.4 98.4 Pulse 101 Resp 32 B/P (MAP) 111/68 (82) Pulse Ox 96 96 96 O2 Delivery BiPAP/CPAP BiPAP/CPAP BiPAP/CPAP O2 Flow Rate 3.0 Intake and Output 04/02/17 04/02/17 04/03/17 15:00 23:00 07:00 Intake Total 880 ml 1380 ml 671 ml Output Total 190 ml 120 ml 200 ml Balance 690 ml 1260 ml 471 ml DANNY MEZA MD Apr 03, 2017 12:56
[2017-04-03] MEDS: TPN PER PHARMACY MC PRN (13:29)
--- NOTE | 2017-04-03 14:06 | PDOC ---
PULMONARY PROGRESS NOTES Subjective PT WANTS TO BE ON BIPAP , NO INCREASE SOA/ SATS STABLE Vitals Vital Signs Date Time Temp Pulse Resp B/P (MAP) Pulse Ox O2 Delivery O2 Flow Rate FiO2 04/03/17 13:18 95 BiPAP/CPAP 04/03/17 12:00 3.0 04/03/17 11:12 98.4 101 32 111/68 (82) 98.4 General: Alert, No acute distress Lungs: Other (decrease bs) Cardiovascular: S1, S2 Abdomen: Soft, Non-tender Neuro Exam: Alert Extremities: Other (1+edema) Skin: Warm Labs Laboratory Tests Test 04/01/17 20:50 04/01/17 23:50 04/02/17 05:10 04/02/17 10:59 Glucose (Fingerstick) 160 mg/dL (70-99) 152 mg/dL (70-99) White Blood Count 6.8 x10^3/uL (4.0-11.0) Red Blood Count 2.92 x10^6/uL (3.50-5.40) Hemoglobin 8.4 g/dL (12.0-15.5) Hematocrit 25.7 % (36.0-47.0) Mean Corpuscular Volume 88 fL (79-100) Mean Corpuscular Hemoglobin 29 pg (25-35) Mean Corpuscular Hemoglobin Concent 33 g/dL (31-37) Red Cell Distribution Width 16.6 % (11.5-14.5) Platelet Count 156 x10^3/uL (140-400) Neutrophils (%) (Auto) 75 % (31-73) Lymphocytes (%) (Auto) 15 % (24-48) Monocytes (%) (Auto) 9 % (0-9) Eosinophils (%) (Auto) 1 % (0-3) Basophils (%) (Auto) 0 % (0-3) Neutrophils # (Auto) 5.1 x10^3uL (1.8-7.7) Lymphocytes # (Auto) 1.0 x10^3/uL (1.0-4.8) Monocytes # (Auto) 0.6 x10^3/uL (0.0-1.1) Eosinophils # (Auto) 0.1 x10^3/uL (0.0-0.7) Basophils # (Auto) 0.0 x10^3/uL (0.0-0.2) Reticulocyte Count (auto) 0.5 % (0.5-2.5) Creatine Kinase 94 U/L (26-192) Iron Level 12 ug/dL (50-170) Total Iron Binding Capacity 90 ug/dL (250-450) Iron Saturation 13 % (15-34) Ferritin 784 ng/mL (8-252) Vitamin B12 Level 565 pg/mL (247-911) Serum Folate 5.07 ng/ml (3.2-20.0) Test 04/02/17 21:46 04/03/17 08:29 04/03/17 11:41 Glucose (Fingerstick) 156 mg/dL (70-99) 172 mg/dL (70-99) 162 mg/dL (70-99) Laboratory Tests Test 04/02/17 21:46 04/03/17 08:29 04/03/17 11:41 Glucose (Fingerstick) 156 mg/dL (70-99) 172 mg/dL (70-99) 162 mg/dL (70-99) Medications Active Scripts Medications Dose Route/Sig Max Daily Dose Days Date Category Flagyl (Metronidazole) 500 Mg Tablet 1 Tab PO BID 03/01/17 Reported Cefpodoxime Proxetil 200 Mg Tablet 1 Tab PO BID 03/01/17 Reported Ferrous Sulfate 325 Mg Tablet 1 Tab PO DAILY 02/23/17 Reported Lasix (Furosemide) 40 Mg Tablet 40 Mg PO QODAY 02/23/17 Reported Potassium Chloride 10 Meq Capsule.er 10 Meq PO QODAY 02/23/17 Reported Metoprolol Tartrate 25 Mg Tablet 12.5 Mg PO BID 01/31/17 Reported Atorvastatin Calcium 40 Mg Tablet 40 Mg PO HS 01/31/17 Reported Clopidogrel (Clopidogrel Bisulfate) 75 Mg Tablet 1 Tab PO DAILY 08/24/15 Reported Diclofenac Sodium 75 Mg Tablet.dr 75 Mg PO DAILY 12/21/14 Reported Ranitidine Hcl 150 Mg Tablet 1 Tab PO BID 12/21/14 Reported Aspirin 81 Mg Tab.chew 1 Tab PO DAILY 04/15/14 Reported Impression . 1. [id number] respiratory failure, expected status post surgical intervention. 2. Status post laparoscopic converted to open exploration for extensive lysis of adhesion, removal of old mesh, subtotal colectomy, small bowel resection and incisional hernia repair. 3. Obesity, body mass index of 35. 4. Leukocytosis. 5. Enterocutaneous fistula. 6. Fever. 7. Abdominal abscess. 8. Ventral hernia, status post repair. 9. small basal effusions 10. Anxiety disorder Plan . PT INSISTS ON BEING BIPAP/ CLINICALLY DOES NOT NEED IT MONITOR EFFUSIONS FOR NOW VENOUS DOPPLER NEGATIVE/ CT NEGATIVE FOR PE MONITOR PLATELET / MUCH IMPROVED ANXIETY/ ON SCHEDULED ATIVAN D/W STACI TURPIN MD Apr 03, 2017 14:06
[2017-04-03] MEDS: HYDROcodone/APAP 7.5/325MG 1 TAB TABLET PO PRN (15:49)
[2017-04-03] MEDS: IV NORMAL SALINE 1000ML BAG 1,000 ML IV SCH (20:43)
[2017-04-03] MEDS: INSULIN DETEMIR 300 UNITS/3 ML INSULN.PEN. SQ SCH (21:50)
[2017-04-03] MEDS ORDERED: AMINO ACIDS IV SCH ×10 (22:00)
[2017-04-03] MEDS ORDERED: TOTAL PARENTERAL NUTRITION IV SCH ×10 (22:00)
[2017-04-03] MEDS ORDERED: [UNRECOGNIZED DRUG - OTHER] IV SCH ×10 (22:00)
[2017-04-03] MEDS ORDERED: DEXTROSE 70% IV SCH ×10 (22:00)
[2017-04-04] MEDS: HYDROcodone/APAP 7.5/325MG 1 TAB TABLET PO PRN ×3 (03:06→18:05)
[2017-04-04 04:20] VITALS: BP 117/65
[2017-04-04 06:37] LABS: CALCIUM 7.9 mg/dL (8.5-10.1); CREATININE 0.7 mg/dL (0.6-1.0); GFR 82.5; MAGNESIUM 1.4 mg/dL (1.8-2.4); PHOSPHORUS 3.2 mg/dL (2.6-4.7); POTASSIUM 3.7 mmol/L (3.5-5.1)
[2017-04-04 07:00] VITALS: BP 118/72
[2017-04-04] MEDS: ASPIRIN CHEWABLE 81 MG TABLET. PO SCH (08:57)
[2017-04-04] MEDS: LORazepam 0.5 MG TABLET PO SCH ×2 (08:57→21:24)
[2017-04-04] MEDS: METOPROLOL SUCC 24HR ER 25 MG TAB.ER.24H. PO SCH (08:57)
[2017-04-04] MEDS: FERROUS SULFATE 325 MG TABLET. PO SCH (08:57)
[2017-04-04] MEDS: CIPROFLOXACIN 400MG PREMIX 200 ML IV SCH (08:58)
[2017-04-04] MEDS: PANTOPRAZOLE IV PUSH 40 MG VIAL. IVP SCH (08:58)
--- NOTE | 2017-04-04 09:14 | PDOC ---
PROGRESS NOTES Subjective Subjective HPI- f/u of Thrombocytopenia. and anemia ROS - dyspnea, on BIPAP Objective Objective Vital Signs Date Time Temp Pulse Resp B/P (MAP) Pulse Ox O2 Delivery O2 Flow Rate FiO2 04/04/17 08:57 97 118/72 04/04/17 08:03 95 BiPAP/CPAP 04/04/17 07:00 97.9 35 97.9 04/04/17 04:01 3.0 Intake and Output 04/04/17 07:00 Intake Total 2779.2 ml Output Total 675 ml Balance 2104.2 ml Intake Oral 400 ml IV Total 2379.2 ml Output Urine Total 400 ml Stool Total 275 ml Physical Exam General: No acute distress Neck: No JVD Assessment Assessment Problems Medical Problems: (1) Abdominal abscess Status: Acute (2) Abdominal pain Status: Acute A/P: 1. Thrombocytopenia. Improved. Plt count 156. 2. Anemia. Most likely multifactorial. Iron studies are suggestive of anemia of chronic disease. /B12 normal. 3. Abscess. Management as per primary/surgery 4. Status post laparoscopic converted to open exploration for extensive lysis of adhesion, removal of old mesh, subtotal colectomy, small bowel resection and incisional hernia repair. Comment Review of Relevant I have reviewed the following items chito (where applicable) has been applied. Labs Laboratory Tests Test 04/02/17 10:59 04/02/17 21:46 04/03/17 08:29 04/03/17 11:41 Iron Level 12 ug/dL (50-170) Total Iron Binding Capacity 90 ug/dL (250-450) Iron Saturation 13 % (15-34) Ferritin 784 ng/mL (8-252) Vitamin B12 Level 565 pg/mL (247-911) Serum Folate 5.07 ng/ml (3.2-20.0) Glucose (Fingerstick) 156 mg/dL (70-99) 172 mg/dL (70-99) 162 mg/dL (70-99) Test 04/03/17 17:01 04/03/17 21:20 04/04/17 05:52 Glucose (Fingerstick) 171 mg/dL (70-99) 147 mg/dL (70-99) Sodium Level 137 mmol/L (136-145) Potassium Level 3.7 mmol/L (3.5-5.1) Chloride Level 103 mmol/L (98-107) Carbon Dioxide Level 29 mmol/L (21-32) Anion Gap 5 (6-14) Blood Urea Nitrogen 10 mg/dL (7-20) Creatinine 0.7 mg/dL (0.6-1.0) Estimated GFR (Cockcroft-Gault) 82.5 Glucose Level 210 mg/dL (70-99) Calcium Level 7.9 mg/dL (8.5-10.1) Phosphorus Level 3.2 mg/dL (2.6-4.7) Magnesium Level 1.4 mg/dL (1.8-2.4) Triglycerides Level 62 mg/dL (0-150) Laboratory Tests Test 04/03/17 11:41 04/03/17 17:01 04/03/17 21:20 04/04/17 05:52 Glucose (Fingerstick) 162 mg/dL (70-99) 171 mg/dL (70-99) 147 mg/dL (70-99) Sodium Level 137 mmol/L (136-145) Potassium Level 3.7 mmol/L (3.5-5.1) Chloride Level 103 mmol/L (98-107) Carbon Dioxide Level 29 mmol/L (21-32) Anion Gap 5 (6-14) Blood Urea Nitrogen 10 mg/dL (7-20) Creatinine 0.7 mg/dL (0.6-1.0) Estimated GFR (Cockcroft-Gault) 82.5 Glucose Level 210 mg/dL (70-99) Calcium Level 7.9 mg/dL (8.5-10.1) Phosphorus Level 3.2 mg/dL (2.6-4.7) Magnesium Level 1.4 mg/dL (1.8-2.4) Triglycerides Level 62 mg/dL (0-150) Microbiology 03/09/17 Blood Culture - Final, Complete NO GROWTH AFTER 5 DAYS 03/09/17 Urine Culture - Final, Complete 03/09/17 Urine Culture Result 1 (KULDEEP) - Final, Complete 03/12/17 Fungal Culture - Final, Complete 03/12/17 Fungal Culture Result 1 - Final, Complete Medications Current Medications Ondansetron HCl (Zofran) 4 mg 1X ONCE IV Last administered on 03/09/17t 08:30 ; Start 03/09/17 at 08:15; Stop 03/09/17 at 08:16; Status DC Iohexol (Omnipaque 300 Mg/ml) 75 ml 1X ONCE IV Last administered on 03/09/17 08:50; Start 03/09/17 at 08:45; Stop 03/09/17 at 08:46; Status DC Info (Do NOT chart on this entry -- for MONITORING) 1 each PRN DAILY PRN MC SEE COMMENTS; Start 03/09/17 at 08:45; Stop 03/11/17 at 08:44; Status DC Ceftriaxone Sodium 50 ml @ 100 mls/hr 1X ONCE IV ; Start 03/09/17 at 09:30; Stop 03/09/17 at 09:55; Status DC Sodium Chloride 1,000 ml @ 1,000 mls/hr 1X ONCE IV Last administered on 09:55; Start 03/09/17 at 10:00; Stop 03/09/17 at 10:59; Status DC Ondansetron HCl (Zofran) 4 mg PRN Q8HRS PRN IV NAUSEA/VOMITING; Start 03/09/17 at 10:30; Stop 03/10/17 at 10:29; Status DC Meropenem 500 mg/ Sodium Chloride 50 ml @ 100 mls/hr Q8HRS IV Last administered on 03/16/17 06:09; Start 03/09/17 at 13:00; Stop 03/16/17 at 12: 59; Status DC Acetaminophen (Tylenol) 650 mg PRN QID PRN PO MILD PAIN / TEMP Last administered on 03/30/17 17:43; Start 03/09/17 at 20:30 Aspirin (Children'S Aspirin) 81 mg DAILY PO Last administered on 04/04/17 08: 57; Start 03/10/17 at 15:00 Clopidogrel Bisulfate (Plavix) 75 mg DAILY PO Last administered on 03/19/17 10:00; Start 03/10/17 at 15:00; Stop 03/22/17 at 09:10; Status DC Ferrous Sulfate (Feosol) 325 mg DAILY PO Last administered on 04/04/17 08:57 ; Start 03/10/17 at 15:00 Metoprolol Tartrate (Lopressor) 12.5 mg BID PO Last administered on 03/10/17 16:01; Start 03/10/17 at 15:00; Stop 03/10/17 at 21:01; Status DC Diclofenac Sodium (Voltaren) 75 mg DAILY PO Last administered on 03/23/17 09: 23; Start 03/10/17 at 14:30; Stop 03/29/17 at 10:50; Status DC Famotidine (Pepcid) 20 mg QHS PO Last administered on 03/24/17 21:20; Start 03/10/17 at 21:00; Stop 03/26/17 at 09:35; Status DC Glimepiride (Amaryl) 1 mg DAILY PO Last administered on 03/13/17 09:25; Start 03/11/17 at 15:00; Stop 03/13/17 at 17:02; Status DC Sodium Chloride 1,000 ml @ 100 mls/hr 1X ONCE IV Last administered on 21:00; Start 03/10/17 at 21:00; Stop 03/11/17 at 06:59; Status DC Lidocaine/Sodium Bicarbonate (Buffered Lidocaine 1%) 20 ml STK-MED ONCE IJ ; Start 03/12/17 at 13:05; Stop 03/12/17 at 13:06; Status DC Fentanyl Citrate (Fentanyl 2ml Vial) 100 mcg STK-MED ONCE .ROUTE ; Start at 13:20; Stop 03/12/17 at 13:21; Status DC Midazolam HCl (Versed) 2 mg STK-MED ONCE .ROUTE ; Start 03/12/17 at 13:20; Stop 03/12/17 at 13:21; Status DC Flumazenil (Romazicon) 0.5 mg STK-MED ONCE IV ; Start 03/12/17 at 13:20; Stop 03/12/17 at 13:21; Status DC Naloxone HCl (Narcan) 0.4 mg STK-MED ONCE .ROUTE ; Start 03/12/17 at 13:20; Stop 03/12/17 at 13:21; Status DC Lidocaine/Sodium Bicarbonate (Buffered Lidocaine 1%) 20 ml 1X ONCE IJ Last administered on 03/12/17 13:50; Start 03/12/17 at 13:30; Stop 03/12/17 at 13:33 ; Status DC Midazolam HCl (Versed) 2 mg 1X ONCE IV Last administered on 03/12/17 13:50; Start 03/12/17 at 13:30; Stop 03/12/17 at 13:33; Status DC Fentanyl Citrate (Fentanyl 2ml Vial) 100 mcg 1X ONCE IV Last administered on 03/12/17 13:50; Start 03/12/17 at 13:30; Stop 03/12/17 at 13:33; Status DC Lactobacillus Rhamnosus (Culturelle) 1 cap BID PO Last administered on 21:20; Start 03/12/17 at 21:00; Stop 03/25/17 at 21:06; Status DC Acetaminophen/ Hydrocodone Bitart (Lortab 7.5/325) 1 tab PRN Q6HRS PRN PO MODERATE - SEVERE PAIN Last administered on 04/04/17 03:06; Start 03/12/17 at 18:15 Ondansetron HCl (Zofran) 4 mg PRN Q6HRS PRN IV NAUSEA/VOMITING, 1ST CHOICE Last administered on 03/25/17 04:53; Start 03/13/17 at 09:00 Furosemide (Lasix) 40 mg QODAY PO Last administered on 03/22/17 09:39; Start 03/14/17 at 09:00; Stop 03/26/17 at 09:00; Status DC Glimepiride (Amaryl) 1 mg DAILY08 PO Last administered on 03/22/17 09:40; Start 03/14/17 at 08:00; Stop 03/23/17 at 08:52; Status DC Linezolid (Zyvox) 600 mg BID PO Last administered on 03/24/17 21:20; Start 03/14/17 at 13:15; Stop 03/25/17 at 10:49; Status DC Meropenem (Merrem) 500 mg Q8HRS IVP Last administered on 03/30/17 06:04; Start 03/16/17 at 14:00; Stop 03/30/17 at 07:49; Status DC Iohexol (Omnipaque 240 Mg/ml) 50 ml STK-MED ONCE .ROUTE ; Start 03/19/17 at 13: 11; Stop 03/19/17 at 13:12; Status DC Iohexol (Omnipaque 240 Mg/ml) 10 ml 1X ONCE IJ Last administered on 14:07; Start 03/19/17 at 14:00; Stop 03/19/17 at 14:01; Status DC Info (Do NOT chart on this entry -- for MONITORING) 1 each PRN DAILY PRN MC SEE COMMENTS; Start 03/19/17 at 14:00; Stop 03/21/17 at 13:59; Status DC Iohexol (Omnipaque 240 Mg/ml) 50 ml STK-MED ONCE .ROUTE ; Start 03/19/17 at 13: 55; Stop 03/19/17 at 13:56; Status DC Fluconazole (Diflucan) 200 mg DAILY PO Last administered on 03/23/17 09:24; Start 03/22/17 at 09:30; Stop 03/25/17 at 10:51; Status DC Metoprolol Succinate (Toprol Xl) 12.5 mg DAILY PO Last administered on 08:57; Start 03/23/17 at 09:00 Glimepiride (Amaryl) 0.5 mg DAILY08 PO ; Start 03/24/17 at 08:00; Stop at 13:05; Status DC Morphine Sulfate 1 mg PRN Q10MIN PRN IV SEVERE PAIN; Start 03/26/17 at 07:00; Stop 03/26/17 at 07:00; Status DC Ringer's Solution 1,000 ml @ 30 mls/hr Q24H IV ; Start 03/26/17 at 07:00; Stop 03/26/17 at 07:00; Status DC Lidocaine HCl (Xylocaine-Mpf 1% Vial) 2 ml PRN 1X PRN ID PRIOR TO IV START; Start 03/26/17 at 07:00; Stop 03/26/17 at 07:00; Status DC Hydromorphone HCl (Dilaudid) 0.5 mg PRN Q10MIN PRN IV SEV PAIN, Second choice; Start 03/26/17 at 07:00; Stop 03/27/17 at 06:59; Status Cancel Prochlorperazine Edisylate (Compazine) 5 mg PACU PRN PRN IV NAUSEA, MRX1 Last administered on 03/25/17 07:45; Start 03/26/17 at 07:00; Stop 03/26/17 at 07 :00; Status DC Morphine Sulfate 1 mg PRN Q10MIN PRN IV SEVERE PAIN; Start 03/24/17 at 07:45; Stop 03/25/17 at 07:44; Status DC Ringer's Solution 1,000 ml @ 30 mls/hr Q24H IV Last administered on 14:15; Start 03/24/17 at 07:32; Stop 03/24/17 at 19:31; Status DC Lidocaine HCl (Xylocaine-Mpf 1% Vial) 2 ml 1X PRN PRN ID IV START; Start 03/24 at 07:45; Stop 03/25/17 at 07:44; Status DC Hydromorphone HCl (Dilaudid) 0.5 mg PRN Q10MIN PRN IV SEV PAIN, Second choice; Start 03/24/17 at 07:45; Stop 03/25/17 at 07:44; Status DC Prochlorperazine Edisylate (Compazine) 5 mg PACU PRN PRN IV NAUSEA, MRX1; Start 03/24/17 at 07:45; Stop 03/25/17 at 07:44; Status DC Bupivacaine HCl/ Epinephrine Bitart (Sensorcain-Mpf Epi 0.5%-[id number]) 30 ml STK -MED ONCE .ROUTE Last administered on 03/24/17 15:56; Start 03/24/17 at 10: 28; Stop 03/24/17 at 10:29; Status DC Neostigmine Methylsulfate (Bloxiverz) 10 mg STK-MED ONCE .ROUTE ; Start at 14:38; Stop 03/24/17 at 14:39; Status DC Rocuronium [place] (Zemuron) 50 mg STK-MED ONCE .ROUTE ; Start 03/24/17 at 14: 38; Stop 03/24/17 at 14:39; Status DC Fentanyl Citrate (Fentanyl 2ml Vial) 100 mcg STK-MED ONCE .ROUTE ; Start at 14:38; Stop 03/24/17 at 14:39; Status DC Phenylephrine HCl 1 mg STK-MED ONCE IV ; Start 03/24/17 at 14:40; Stop at 14:41; Status DC Lidocaine HCl (Lidocaine Pf 2% Vial) 5 ml STK-MED ONCE .ROUTE ; Start 03/24/17 at 14:40; Stop 03/24/17 at 14:41; Status DC Dexamethasone Sodium Phosphate (Decadron) 20 mg STK-MED ONCE .ROUTE ; Start at 14:40; Stop 03/24/17 at 14:41; Status DC Ondansetron HCl (Zofran) 4 mg STK-MED ONCE .ROUTE ; Start 03/24/17 at 14:40; Stop 03/24/17 at 14:41; Status DC Propofol 20 ml @ As Directed STK-MED ONCE IV ; Start 03/24/17 at 14:40; Stop 03/24/17 at 14:41; Status DC Glycopyrrolate (Robinul) 1 mg STK-MED ONCE .ROUTE ; Start 03/24/17 at 15:11; Stop 03/24/17 at 15:12; Status DC Rocuronium [place] (Zemuron) 50 mg STK-MED ONCE .ROUTE ; Start 03/24/17 at 15: 53; Stop 03/24/17 at 15:54; Status DC Fentanyl Citrate (Fentanyl 2ml Vial) 100 mcg STK-MED ONCE .ROUTE ; Start at 16:01; Stop 03/24/17 at 16:02; Status DC Morphine Sulfate 10 mg STK-MED ONCE .ROUTE ; Start 03/24/17 at 16:02; Stop at 16:03; Status DC Albumin Human 500 ml @ As Directed STK-MED ONCE IV ; Start 03/24/17 at 17:03; Stop 03/24/17 at 17:04; Status DC Phenylephrine HCl (Corky-Synephrine Inj) 10 mg STK-MED ONCE .ROUTE ; Start at 17:27; Stop 03/24/17 at 17:28; Status DC Rocuronium [place] (Zemuron) 100 mg STK-MED ONCE .ROUTE ; Start 03/24/17 at 17: 57; Stop 03/24/17 at 17:58; Status DC Enoxaparin Sodium (Lovenox 40mg Syringe) 40 mg Q24H SQ Last administered on t 20:51; Start 03/24/17 at 20:45; Stop 03/26/17 at 19:34; Status DC Sodium Chloride (Normal Saline Flush) 3 ml QSHIFT PRN IV AFTER MEDS AND BLOOD DRAWS; Start 03/24/17 at 20:45 Ringer's Solution 1,000 ml @ 100 mls/hr Q10H IV Last administered on 12:32; Start 03/24/17 at 20:43; Stop 03/25/17 at 16:52; Status DC Naloxone HCl (Narcan) 0.4 mg PRN Q2MIN PRN IV SEE INSTRUCTIONS; Start at 20:45 Sodium Chloride 1,000 ml @ 25 mls/hr Q24H IV Last administered on 03/27/17 12:08; Start 03/24/17 at 20:43 Hydromorphone HCl 30 ml @ 0 mls/hr CONT PRN PRN IV PROTOCOL Last administered on 03/24/17 23:16; Start 03/24/17 at 20:45 Prochlorperazine Edisylate (Compazine) 5 mg PRN Q4HRS PRN IV NAUSEA/VOMITING, 2ND CHOICE; Start 03/25/17 at 07:45 Pantoprazole Sodium (PROTONIX VIAL for IV PUSH) 40 mg DAILYAC IVP Last administered on 04/04/17 08:58; Start 03/25/17 at 10:15 Linezolid 300 ml @ 300 mls/hr Q12HR IV Last administered on 03/26/17 20:54; Start 03/25/17 at 11:00; Stop 03/27/17 at 08:05; Status DC Fluconazole/ Sodium Chloride 100 ml @ 100 mls/hr Q24H IV Last administered on 04/03/17 11:56; Start 03/25/17 at 11:00 Dextrose/Lactated Ringer's 1,000 ml @ 75 mls/hr [id number] IV Last administered on 04/03/17 08:54; Start 03/25/17 at 17:00 Famotidine (Pepcid Vial) 40 mg QHS IVP Last administered on 03/28/17 21:35; Start 03/25/17 at 21:00; Stop 03/29/17 at 08:02; Status DC Lorazepam (Ativan) 0.5 mg 1X ONCE IV ; Start 03/26/17 at 07:00; Stop at 07:01; Status Cancel Lorazepam (Ativan) 0.5 mg PRN Q8HRS PRN PO ANXIETY / AGITATION; Start at 07:00; Status Cancel Furosemide (Lasix) 40 mg 1X ONCE IVP Last administered on 03/26/17 09:54; Start 03/26/17 at 09:00; Stop 03/26/17 at 09:01; Status DC Furosemide (Lasix) 20 mg DAILY IVP Last administered on 03/30/17 09:29; Start 03/27/17 at 09:00; Stop 03/31/17 at 12:22; Status DC Digoxin (Lanoxin) 250 mcg 1X ONCE IV Last administered on 03/26/17 15:06; Start 03/26/17 at 15:15; Stop 03/26/17 at 15:16; Status DC Iohexol (Omnipaque 300 Mg/ml) 75 ml 1X ONCE IV Last administered on 16:41; Start 03/26/17 at 16:45; Stop 03/26/17 at 16:46; Status DC Info (Do NOT chart on this entry -- for MONITORING) 1 each PRN DAILY PRN MC SEE COMMENTS; Start 03/26/17 at 16:45; Stop 03/28/17 at 16:44; Status DC Norepinephrine Bitartrate 250 ml @ As Directed STK-MED ONCE IV ; Start at 17:42; Stop 03/26/17 at 17:43; Status DC Norepinephrine Bitartrate 250 ml @ 0 mls/hr CONT PRN IV SEE I/O RECORD Last administered on 03/26/17 18:01; Start 03/26/17 at 18:00 Enoxaparin Sodium (Lovenox Per Pharmacy Treatment Dosing) 1 each PRN DAILY PRN MC SEE COMMENTS; Start 03/26/17 at 19:30; Stop 03/28/17 at 12:38; Status DC Enoxaparin Sodium (Lovenox 80mg Syringe) 80 mg Q12HR SQ Last administered on 21:51; Start 03/26/17 at 20:00; Stop 03/28/17 at 15:36; Status DC Daptomycin 460 mg/ Sodium Chloride 50 ml @ 100 mls/hr Q24H IV Last administered on 04/03/17 08:58; Start 03/27/17 at 09:00 Digoxin (Lanoxin) 250 mcg 1X ONCE IV Last administered on 03/27/17 12:09; Start 03/27/17 at 12:00; Stop 03/27/17 at 12:01; Status DC Insulin Detemir (Levemir) 5 units QHS SQ Last administered on 04/03/17 21:50 ; Start 03/27/17 at 21:00 Albumin Human 100 ml @ 100 mls/hr Q8H IV Last administered on 03/29/17 00:42 ; Start 03/28/17 at 09:00; Stop 03/29/17 at 01:59; Status DC Lorazepam (Ativan) 1 mg PRN Q6HRS PRN PO ANXIETY / AGITATION Last administered on 03/30/17 17:43; Start 03/28/17 at 16:00 Iohexol (Omnipaque 300 Mg/ml) 75 ml 1X ONCE IV Last administered on 16:00; Start 03/28/17 at 16:00; Stop 03/28/17 at 16:02; Status DC Info (Do NOT chart on this entry -- for MONITORING) 1 each PRN DAILY PRN MC SEE COMMENTS; Start 03/28/17 at 16:15; Stop 03/30/17 at 16:14; Status DC Fentanyl Citrate (Fentanyl 2ml Vial) 50 mcg PRN Q4HRS PRN IV PAIN Last administered on 04/01/17 08:14; Start 03/29/17 at 09:45 Ciprofloxacin/ Dextrose 200 ml @ 200 mls/hr Q12HR IV Last administered on 08:58; Start 03/30/17 at 09:00 Lorazepam (Ativan) 0.5 mg Q12HR PO Last administered on 04/04/17 08:57; Start 03/30/17 at 21:00 Dopamine HCl/ Dextrose 250 ml @ 15.155 mls/ hr CONT PRN IV SEE I/O RECORD Last administered on 04/03/17 16:30; Start 03/31/17 at 13:00 Info 1 each PRN DAILY PRN MC SEE COMMENTS Last administered on 04/03/17 13:29 ; Start 04/03/17 at 12:15 Sodium Chloride 90 meq/Potassium Chloride 50 meq/ Potassium Phosphate 20.4 mmol/ Magnesium Sulfate 10 meq/ Calcium Gluconate 10 meq/ Multivitamins 10 ml/Chromium / Copper/Manganese/ Seleni/Zn 1 ml/ Total Parenteral Nutrition/Amino Acids/ Dextrose/ Fat Emulsion Intravenous 1,512 ml @ 63 mls/hr TPN CONT IV Last administered on 04/03/17t 21:38; Start 04/03/17 at 22:00; Stop 04/04/17 at 21 :59 Active Scripts Active Reported Flagyl (Metronidazole) 500 Mg Tablet 1 Tab PO BID Cefpodoxime Proxetil 200 Mg Tablet 1 Tab PO BID Ferrous Sulfate 325 Mg Tablet 1 Tab PO DAILY Lasix (Furosemide) 40 Mg Tablet 40 Mg PO QODAY Potassium Chloride 10 Meq Capsule.er 10 Meq PO QODAY Metoprolol Tartrate 25 Mg Tablet 12.5 Mg PO BID Atorvastatin Calcium 40 Mg Tablet 40 Mg PO HS Clopidogrel (Clopidogrel Bisulfate) 75 Mg Tablet 1 Tab PO DAILY Diclofenac Sodium 75 Mg Tablet.dr 75 Mg PO DAILY Ranitidine Hcl 150 Mg Tablet 1 Tab PO BID Aspirin 81 Mg Tab.chew 1 Tab PO DAILY Vitals/I & O Vital Sign - Last 24 Hours 04/03/17 04/03/17 04/03/17 04/03/17 10:10 11:12 11:42 12:00 Temp 98.4 98.4 Pulse 101 Resp 32 B/P (MAP) 111/68 (82) Pulse Ox 96 96 96 O2 Delivery BiPAP/CPAP BiPAP/CPAP BiPAP/CPAP O2 Flow Rate 3.0 04/03/17 04/03/17 04/03/17 04/03/17 13:18 15:34 15:49 16:00 Pulse Ox 95 95 O2 Delivery BiPAP/CPAP BiPAP/CPAP BiPAP/CPAP O2 Flow Rate 3.0 04/03/17 04/03/17 04/03/17 04/03/17 16:20 17:40 19:40 20:00 Temp 98.2 99.0 98.2 99.0 Pulse 114 95 Resp 44 22 B/P (MAP) 117/75 (89) 144/70 (94) Pulse Ox 94 O2 Delivery BiPAP/CPAP BiPAP/CPAP BiPAP/CPAP Bi-pap 04/03/17 04/03/17 04/03/17 04/03/17 20:00 21:05 22:40 23:30 Temp 98.9 98.9 Pulse 95 Resp 24 B/P (MAP) 108/51 (70) Pulse Ox 95 O2 Delivery BiPAP/CPAP BiPAP/CPAP BiPAP/CPAP O2 Flow Rate 3.0 04/04/17 04/04/17 04/04/17 04/04/17 00:00 01:00 02:43 03:06 Pulse Ox 95 O2 Delivery BiPAP/CPAP BiPAP/CPAP BiPAP/CPAP O2 Flow Rate 3.0 04/04/17 04/04/17 04/04/17 04/04/17 03:59 04:01 04:02 04:20 Temp 99.5 99.5 Pulse 90 Resp 24 B/P (MAP) 117/65 (82) Pulse Ox 98 O2 Delivery BiPAP/CPAP BiPAP/CPAP BiPAP/CPAP O2 Flow Rate 3.0 04/04/17 04/04/17 04/04/17 04/04/17 05:26 07:00 08:03 08:57 Temp 97.9 97.9 Pulse 97 97 Resp 35 B/P (MAP) 118/72 (87) 118/72 Pulse Ox 97 95 O2 Delivery BiPAP/CPAP BiPAP/CPAP BiPAP/CPAP Intake and Output 04/03/17 04/03/17 04/04/17 15:00 23:00 07:00 Intake Total 1800 ml 979.2 ml Output Total 675 ml Balance 1800 ml 304.2 ml DANNY MEZA MD Apr 04, 2017 09:14
--- NOTE | 2017-04-04 09:24 | PDOC ---
Provider Note Provider Note sleeping, no new sxs- bp better, will dc iv fluid on tpn- labs ok MILENA MCMILLAN MD Apr 04, 2017 09:24
[2017-04-04] MEDS: DAPTOMYCIN IV SCH (10:29)
[2017-04-04] MEDS: NORMAL SALINE IV SCH (10:29)
--- NOTE | 2017-04-04 10:45 | PDOC ---
Infectious Disease Note Subjective Subjective pt now back on bipap,was off for breakfast and requested it back again Denies f/c/n/v/d//CP/abdominal pain Denies muscle aches ROS ROS GEN: Denies fevers, chills, sweats HEENT: Denies blurred vision, sore throat CV: Denies chest pain RESP: Denies shortness of air, cough GI: Denies n/v/d NEURO: Denies confusion, dizziness MSK: Denies weakness, joint pain/swelling Vital Sign Vital Signs Vital Signs Date Time Temp Pulse Resp B/P (MAP) Pulse Ox O2 Delivery O2 Flow Rate FiO2 04/04/17 10:30 95 BiPAP/CPAP 35.0 04/04/17 08:57 97 118/72 04/04/17 07:00 97.9 35 97.9 Physical Exam PHYSICAL EXAM GENERAL: sleepy but arousable on bipap HEENT: anicteric NECK: Supple, LUNGS: coarse bronchial bs anteriorly HEART: S1S2, tachy ABD: Soft, dressing intact, dry, ileostomy with liquid stool EXT: some edema, no cyanosis ARMHOLE BASTER HAND: Alert, oriented x 3, nonfocal SKIN: No gen rash IV: ok Labs Lab Laboratory Tests Test 04/03/17 11:41 04/03/17 17:01 04/03/17 21:20 04/04/17 05:52 Glucose (Fingerstick) 162 mg/dL (70-99) 171 mg/dL (70-99) 147 mg/dL (70-99) Sodium Level 137 mmol/L (136-145) Potassium Level 3.7 mmol/L (3.5-5.1) Chloride Level 103 mmol/L (98-107) Carbon Dioxide Level 29 mmol/L (21-32) Anion Gap 5 (6-14) Blood Urea Nitrogen 10 mg/dL (7-20) Creatinine 0.7 mg/dL (0.6-1.0) Estimated GFR (Cockcroft-Gault) 82.5 Glucose Level 210 mg/dL (70-99) Calcium Level 7.9 mg/dL (8.5-10.1) Phosphorus Level 3.2 mg/dL (2.6-4.7) Magnesium Level 1.4 mg/dL (1.8-2.4) Triglycerides Level 62 mg/dL (0-150) Micro RUN DATE: 03/16/17 PAGE 1 RUN TIME: 735 [facility] [address] [place] [address] M.D., Health Practice Manager PATIENT: SAFIA MIRANDA ACCT: [id number] LOC: [address] [place] [address] U : [id number] AGE/SX: 71/F ROOM: [facility] REG : 03/09/[address]: MILENA MCMILLAN MD : 1945 BED: 1 DIS : STATUS: ADM IN TLOC: SPEC #: [id number] TIFFANIE: 03/12/17 STATUS: COMP REQ #: [id number] RECD: 03/12/17 [facility] DR: CRISPIN HEREDIA MD SOURCE: ABDOMEN ENTR: 03/12/17 [facility] DR: SANDRA RODNEY MD [facility]: MILENA CASTELLANO MD ORDERED: ANAER-AERO CULT Procedure Result ANAEROBIC-AEROBIC CULTURE Final Final report ANAEROBIC RES 1 Final Comment No anaerobic growth in 72 hours. AEROBIC CULT Final Final report AEROBIC RES 1 Final Klebsiella pneumoniae Moderate growth AEROBIC RES 2 Final Yeast Moderate growth Request for further identification must be made within 1 week. AEROBIC RES 3 Final Comment Vancomycin-resistant Enterococcus (Enterococcus faecium) Heavy growth AEROBIC RES 4 Final Comment Pseudomonas aeruginosa Moderate growth CONTINUED ON NEXT PAGE RUN DATE: 03/16/17 PAGE 2 RUN TIME: 735 [facility] [address] [place] [address] M.D., Health Practice Manager SPEC: [id number] PATIENT: SAFIA MIRANDA [id number] ( Continued) Procedure Result ANTIMICROBIAL SUSCEPTIBILITY Final Comment S = Susceptible; I = Intermediate; R = Resistant P = Positive; N = Negative MICS are expressed in micrograms per mL Antibiotic RSLT#1 RSLT#2 RSLT#3 RSLT#4 Amikacin S Amoxicillin/Clavulanic Acid S Ampicillin R Cefepime S S Ceftazidime S Ceftriaxone S Cefuroxime I Ciprofloxacin S S Ertapenem S Gentamicin S S Imipenem S S Levofloxacin S S Linezolid S Meropenem S Penicillin R Piperacillin R S Quinupristin/Dalfopristin S Tetracycline S Ticarcillin R Tobramycin S S Trimethoprim/Sulfa S Vancomycin R Performed at: [facility] [id number] Zipper Machine Operator: Ashia Rogers MD, Phone: [phone] END OF REPORT Objective Assessment [id number] respiratory failure, status post surgery, now on bipap, improving slowly Status post laparoscopic converted to open exploration for extensive lysis of adhesion, removal of old mesh, subtotal colectomy, small bowel resection and incisional hernia repair. Abdominal abscess s/p drain c/s + Klebsiella ( R to Zosyn ,Cipro/Levo S) and enterococcus amp resistant,VRE and PSAE ( R to ticarcillin only otherwise sensitive, Cipro/Levo S) (yeast likely contaminant) Ventral hernia DM HTN thrombocytopenia resolved anemia pleural effusions Plan Plan of Care Cont Fluconazole and dapto Cipro (changed from meropenem on 03/30 for possible B lactam induced thrombocytopenia) will change cipro to levaquin weekly cpk continue supportive care HUMAIRA RODNEY MD Apr 04, 2017 10:45
[2017-04-04 11:00] VITALS: BP 120/77
--- NOTE | 2017-04-04 11:56 | PDOC ---
PULMONARY PROGRESS NOTES Subjective SOA/ LOW SATS HAS BEEN ON BIPAP ALL NIGHT Vitals Vital Signs Date Time Temp Pulse Resp B/P (MAP) Pulse Ox O2 Delivery O2 Flow Rate FiO2 04/04/17 11:20 96 BiPAP/CPAP 04/04/17 11:00 98.6 98 28 120/77 (91) 98.6 04/04/17 10:30 35.0 General: Alert, Mild Distress Lungs: Other (decrease bs) Cardiovascular: S1, S2 Abdomen: Soft, Non-tender Neuro Exam: Alert Extremities: Other (1+edema) Skin: Warm Labs Laboratory Tests Test 04/02/17 21:46 04/03/17 08:29 04/03/17 11:41 04/03/17 17:01 Glucose (Fingerstick) 156 mg/dL (70-99) 172 mg/dL (70-99) 162 mg/dL (70-99) 171 mg/dL (70-99) Test 04/03/17 21:20 04/04/17 05:52 04/04/17 08:05 Glucose (Fingerstick) 147 mg/dL (70-99) 221 mg/dL (70-99) Sodium Level 137 mmol/L (136-145) Potassium Level 3.7 mmol/L (3.5-5.1) Chloride Level 103 mmol/L (98-107) Carbon Dioxide Level 29 mmol/L (21-32) Anion Gap 5 (6-14) Blood Urea Nitrogen 10 mg/dL (7-20) Creatinine 0.7 mg/dL (0.6-1.0) Estimated GFR (Cockcroft-Gault) 82.5 Glucose Level 210 mg/dL (70-99) Calcium Level 7.9 mg/dL (8.5-10.1) Phosphorus Level 3.2 mg/dL (2.6-4.7) Magnesium Level 1.4 mg/dL (1.8-2.4) Triglycerides Level 62 mg/dL (0-150) Laboratory Tests Test 04/03/17 17:01 04/03/17 21:20 04/04/17 05:52 04/04/17 08:05 Glucose (Fingerstick) 171 mg/dL (70-99) 147 mg/dL (70-99) 221 mg/dL (70-99) Sodium Level 137 mmol/L (136-145) Potassium Level 3.7 mmol/L (3.5-5.1) Chloride Level 103 mmol/L (98-107) Carbon Dioxide Level 29 mmol/L (21-32) Anion Gap 5 (6-14) Blood Urea Nitrogen 10 mg/dL (7-20) Creatinine 0.7 mg/dL (0.6-1.0) Estimated GFR (Cockcroft-Gault) 82.5 Glucose Level 210 mg/dL (70-99) Calcium Level 7.9 mg/dL (8.5-10.1) Phosphorus Level 3.2 mg/dL (2.6-4.7) Magnesium Level 1.4 mg/dL (1.8-2.4) Triglycerides Level 62 mg/dL (0-150) Medications Active Scripts Medications Dose Route/Sig Max Daily Dose Days Date Category Flagyl (Metronidazole) 500 Mg Tablet 1 Tab PO BID 03/01/17 Reported Cefpodoxime Proxetil 200 Mg Tablet 1 Tab PO BID 03/01/17 Reported Ferrous Sulfate 325 Mg Tablet 1 Tab PO DAILY 02/23/17 Reported Lasix (Furosemide) 40 Mg Tablet 40 Mg PO QODAY 02/23/17 Reported Potassium Chloride 10 Meq Capsule.er 10 Meq PO QODAY 02/23/17 Reported Metoprolol Tartrate 25 Mg Tablet 12.5 Mg PO BID 01/31/17 Reported Atorvastatin Calcium 40 Mg Tablet 40 Mg PO HS 01/31/17 Reported Clopidogrel (Clopidogrel Bisulfate) 75 Mg Tablet 1 Tab PO DAILY 08/24/15 Reported Diclofenac Sodium 75 Mg Tablet.dr 75 Mg PO DAILY 12/21/14 Reported Ranitidine Hcl 150 Mg Tablet 1 Tab PO BID 12/21/14 Reported Aspirin 81 Mg Tab.chew 1 Tab PO DAILY 04/15/14 Reported Impression . 1. Ynmay-bi-ypymmsg respiratory failure, expected status post surgical intervention. 2. Status post laparoscopic converted to open exploration for extensive lysis of adhesion, removal of old mesh, subtotal colectomy, small bowel resection and incisional hernia repair. 3. Obesity, body mass index of 35. 4. Leukocytosis. 5. Enterocutaneous fistula. 6. Fever. 7. Abdominal abscess. 8. Ventral hernia, status post repair. 9. Bilateral effusions due to low oncotic pressure 10. Anxiety disorder Plan . PT REMAINS ON BIPAP/ SOME ANXIETY DISORDER WELL. REPEAT CXR TODAY TO MONITOR FOR EFFUSIONS AND CONSIDER THORACENTESIS IF NO IMPROVEMENT IV LASIX TODAY IMPROVE NUTRITIONAL STATUS VENOUS DOPPLER NEGATIVE/ CT NEGATIVE FOR PE MONITOR PLATELET / MUCH IMPROVED ANXIETY/ ON SCHEDULED ATIVAN D/W STACI TURPIN MD Apr 04, 2017 11:56
[2017-04-04] MEDS: FUROSEMIDE 40 MG/4 ML VIAL. IVP SCH (12:08)
[2017-04-04] MEDS: FLUCONAZOLE 200MG/100ML PREMIX 100 ML IV SCH (12:16)
[2017-04-04] MEDS: TPN PER PHARMACY MC PRN (12:23)
--- NOTE | 2017-04-04 14:52 | PDOC ---
PROGRESS NOTES Subjective Subjective pt with bipap mask on, appear comfortable, seen with wound care team Objective Objective Vital Signs Date Time Temp Pulse Resp B/P (MAP) Pulse Ox O2 Delivery O2 Flow Rate FiO2 04/04/17 12:00 35.0 04/04/17 11:30 96 04/04/17 11:20 BiPAP/CPAP 04/04/17 11:00 98.6 98 28 120/77 (91) 98.6 Intake and Output 04/04/17 07:00 Intake Total 2779.2 ml Output Total 675 ml Balance 2104.2 ml Intake Oral 400 ml IV Total 2379.2 ml Output Urine Total 400 ml Stool Total 275 ml Physical Exam Physical Exam abdomen with open portion in lower abdomen, other areas of incision beginning to separate, ostomy with stool Assessment Assessment Problems Medical Problems: (1) Abdominal abscess Status: Acute (2) Abdominal pain Status: Acute Plan Plan of Care Continue with wound care, TPN, supportive care Comment Review of Relevant I have reviewed the following items chito (where applicable) has been applied. Labs Laboratory Tests Test 04/02/17 21:46 04/03/17 08:29 04/03/17 11:41 04/03/17 17:01 Glucose (Fingerstick) 156 mg/dL (70-99) 172 mg/dL (70-99) 162 mg/dL (70-99) 171 mg/dL (70-99) Test 04/03/17 21:20 04/04/17 05:52 04/04/17 08:05 Glucose (Fingerstick) 147 mg/dL (70-99) 221 mg/dL (70-99) Sodium Level 137 mmol/L (136-145) Potassium Level 3.7 mmol/L (3.5-5.1) Chloride Level 103 mmol/L (98-107) Carbon Dioxide Level 29 mmol/L (21-32) Anion Gap 5 (6-14) Blood Urea Nitrogen 10 mg/dL (7-20) Creatinine 0.7 mg/dL (0.6-1.0) Estimated GFR (Cockcroft-Gault) 82.5 Glucose Level 210 mg/dL (70-99) Calcium Level 7.9 mg/dL (8.5-10.1) Phosphorus Level 3.2 mg/dL (2.6-4.7) Magnesium Level 1.4 mg/dL (1.8-2.4) Triglycerides Level 62 mg/dL (0-150) Laboratory Tests Test 04/03/17 17:01 04/03/17 21:20 04/04/17 05:52 04/04/17 08:05 Glucose (Fingerstick) 171 mg/dL (70-99) 147 mg/dL (70-99) 221 mg/dL (70-99) Sodium Level 137 mmol/L (136-145) Potassium Level 3.7 mmol/L (3.5-5.1) Chloride Level 103 mmol/L (98-107) Carbon Dioxide Level 29 mmol/L (21-32) Anion Gap 5 (6-14) Blood Urea Nitrogen 10 mg/dL (7-20) Creatinine 0.7 mg/dL (0.6-1.0) Estimated GFR (Cockcroft-Gault) 82.5 Glucose Level 210 mg/dL (70-99) Calcium Level 7.9 mg/dL (8.5-10.1) Phosphorus Level 3.2 mg/dL (2.6-4.7) Magnesium Level 1.4 mg/dL (1.8-2.4) Triglycerides Level 62 mg/dL (0-150) Microbiology 03/09/17 Blood Culture - Final, Complete NO GROWTH AFTER 5 DAYS 03/09/17 Urine Culture - Final, Complete 03/09/17 Urine Culture Result 1 (KULDEEP) - Final, Complete 03/12/17 Fungal Culture - Final, Complete 03/12/17 Fungal Culture Result 1 - Final, Complete Medications Current Medications Ondansetron HCl (Zofran) 4 mg 1X ONCE IV Last administered on 03/09/17 08:30 ; Start 03/09/17 at 08:15; Stop 03/09/17 at 08:16; Status DC Iohexol (Omnipaque 300 Mg/ml) 75 ml 1X ONCE IV Last administered on 03/09/17 08:50; Start 03/09/17 at 08:45; Stop 03/09/17 at 08:46; Status DC Info (Do NOT chart on this entry -- for MONITORING) 1 each PRN DAILY PRN MC SEE COMMENTS; Start 03/09/17 at 08:45; Stop 03/11/17 at 08:44; Status DC Ceftriaxone Sodium 50 ml @ 100 mls/hr 1X ONCE IV ; Start 03/09/17 at 09:30; Stop 03/09/17 at 09:55; Status DC Sodium Chloride 1,000 ml @ 1,000 mls/hr 1X ONCE IV Last administered on 09:55; Start 03/09/17 at 10:00; Stop 03/09/17 at 10:59; Status DC Ondansetron HCl (Zofran) 4 mg PRN Q8HRS PRN IV NAUSEA/VOMITING; Start 03/09/17 at 10:30; Stop 03/10/17 at 10:29; Status DC Meropenem 500 mg/ Sodium Chloride 50 ml @ 100 mls/hr Q8HRS IV Last administered on 03/16/17 06:09; Start 03/09/17 at 13:00; Stop 03/16/17 at 12: 59; Status DC Acetaminophen (Tylenol) 650 mg PRN QID PRN PO MILD PAIN / TEMP Last administered on 03/30/17 17:43; Start 03/09/17 at 20:30 Aspirin (Children'S Aspirin) 81 mg DAILY PO Last administered on 04/04/17 08: 57; Start 03/10/17 at 15:00 Clopidogrel Bisulfate (Plavix) 75 mg DAILY PO Last administered on 03/19/17 10:00; Start 03/10/17 at 15:00; Stop 03/22/17 at 09:10; Status DC Ferrous Sulfate (Feosol) 325 mg DAILY PO Last administered on 04/04/17 08:57 ; Start 03/10/17 at 15:00 Metoprolol Tartrate (Lopressor) 12.5 mg BID PO Last administered on 03/10/17 16:01; Start 03/10/17 at 15:00; Stop 03/10/17 at 21:01; Status DC Diclofenac Sodium (Voltaren) 75 mg DAILY PO Last administered on 03/23/17 09: 23; Start 03/10/17 at 14:30; Stop 03/29/17 at 10:50; Status DC Famotidine (Pepcid) 20 mg QHS PO Last administered on 03/24/17 21:20; Start 03/10/17 at 21:00; Stop 03/26/17 at 09:35; Status DC Glimepiride (Amaryl) 1 mg DAILY PO Last administered on 03/13/17 09:25; Start 03/11/17 at 15:00; Stop 03/13/17 at 17:02; Status DC Sodium Chloride 1,000 ml @ 100 mls/hr 1X ONCE IV Last administered on 21:00; Start 03/10/17 at 21:00; Stop 03/11/17 at 06:59; Status DC Lidocaine/Sodium Bicarbonate (Buffered Lidocaine 1%) 20 ml STK-MED ONCE IJ ; Start 03/12/17 at 13:05; Stop 03/12/17 at 13:06; Status DC Fentanyl Citrate (Fentanyl 2ml Vial) 100 mcg STK-MED ONCE .ROUTE ; Start at 13:20; Stop 03/12/17 at 13:21; Status DC Midazolam HCl (Versed) 2 mg STK-MED ONCE .ROUTE ; Start 03/12/17 at 13:20; Stop 03/12/17 at 13:21; Status DC Flumazenil (Romazicon) 0.5 mg STK-MED ONCE IV ; Start 03/12/17 at 13:20; Stop 03/12/17 at 13:21; Status DC Naloxone HCl (Narcan) 0.4 mg STK-MED ONCE .ROUTE ; Start 03/12/17 at 13:20; Stop 03/12/17 at 13:21; Status DC Lidocaine/Sodium Bicarbonate (Buffered Lidocaine 1%) 20 ml 1X ONCE IJ Last administered on 03/12/17 13:50; Start 03/12/17 at 13:30; Stop 03/12/17 at 13:33 ; Status DC Midazolam HCl (Versed) 2 mg 1X ONCE IV Last administered on 03/12/17 13:50; Start 03/12/17 at 13:30; Stop 03/12/17 at 13:33; Status DC Fentanyl Citrate (Fentanyl 2ml Vial) 100 mcg 1X ONCE IV Last administered on 03/12/17 13:50; Start 03/12/17 at 13:30; Stop 03/12/17 at 13:33; Status DC Lactobacillus Rhamnosus (Culturelle) 1 cap BID PO Last administered on 21:20; Start 03/12/17 at 21:00; Stop 03/25/17 at 21:06; Status DC Acetaminophen/ Hydrocodone Bitart (Lortab 7.5/325) 1 tab PRN Q6HRS PRN PO MODERATE - SEVERE PAIN Last administered on 04/04/17 10:30; Start 03/12/17 at 18:15 Ondansetron HCl (Zofran) 4 mg PRN Q6HRS PRN IV NAUSEA/VOMITING, 1ST CHOICE Last administered on 03/25/17 04:53; Start 03/13/17 at 09:00 Furosemide (Lasix) 40 mg QODAY PO Last administered on 03/22/17 09:39; Start 03/14/17 at 09:00; Stop 03/26/17 at 09:00; Status DC Glimepiride (Amaryl) 1 mg DAILY08 PO Last administered on 03/22/17 09:40; Start 03/14/17 at 08:00; Stop 03/23/17 at 08:52; Status DC Linezolid (Zyvox) 600 mg BID PO Last administered on 03/24/17 21:20; Start 03/14/17 at 13:15; Stop 03/25/17 at 10:49; Status DC Meropenem (Merrem) 500 mg Q8HRS IVP Last administered on 03/30/17 06:04; Start 03/16/17 at 14:00; Stop 03/30/17 at 07:49; Status DC Iohexol (Omnipaque 240 Mg/ml) 50 ml STK-MED ONCE .ROUTE ; Start 03/19/17 at 13: 11; Stop 03/19/17 at 13:12; Status DC Iohexol (Omnipaque 240 Mg/ml) 10 ml 1X ONCE IJ Last administered on 14:07; Start 03/19/17 at 14:00; Stop 03/19/17 at 14:01; Status DC Info (Do NOT chart on this entry -- for MONITORING) 1 each PRN DAILY PRN MC SEE COMMENTS; Start 03/19/17 at 14:00; Stop 03/21/17 at 13:59; Status DC Iohexol (Omnipaque 240 Mg/ml) 50 ml STK-MED ONCE .ROUTE ; Start 03/19/17 at 13: 55; Stop 03/19/17 at 13:56; Status DC Fluconazole (Diflucan) 200 mg DAILY PO Last administered on 03/23/17 09:24; Start 03/22/17 at 09:30; Stop 03/25/17 at 10:51; Status DC Metoprolol Succinate (Toprol Xl) 12.5 mg DAILY PO Last administered on 08:57; Start 03/23/17 at 09:00 Glimepiride (Amaryl) 0.5 mg DAILY08 PO ; Start 03/24/17 at 08:00; Stop at 13:05; Status DC Morphine Sulfate 1 mg PRN Q10MIN PRN IV SEVERE PAIN; Start 03/26/17 at 07:00; Stop 03/26/17 at 07:00; Status DC Ringer's Solution 1,000 ml @ 30 mls/hr Q24H IV ; Start 03/26/17 at 07:00; Stop 03/26/17 at 07:00; Status DC Lidocaine HCl (Xylocaine-Mpf 1% Vial) 2 ml PRN 1X PRN ID PRIOR TO IV START; Start 03/26/17 at 07:00; Stop 03/26/17 at 07:00; Status DC Hydromorphone HCl (Dilaudid) 0.5 mg PRN Q10MIN PRN IV SEV PAIN, Second choice; Start 03/26/17 at 07:00; Stop 03/27/17 at 06:59; Status Cancel Prochlorperazine Edisylate (Compazine) 5 mg PACU PRN PRN IV NAUSEA, MRX1 Last administered on 03/25/17 07:45; Start 03/26/17 at 07:00; Stop 03/26/17 at 07 :00; Status DC Morphine Sulfate 1 mg PRN Q10MIN PRN IV SEVERE PAIN; Start 03/24/17 at 07:45; Stop 03/25/17 at 07:44; Status DC Ringer's Solution 1,000 ml @ 30 mls/hr Q24H IV Last administered on 14:15; Start 03/24/17 at 07:32; Stop 03/24/17 at 19:31; Status DC Lidocaine HCl (Xylocaine-Mpf 1% Vial) 2 ml 1X PRN PRN ID IV START; Start 03/24 at 07:45; Stop 03/25/17 at 07:44; Status DC Hydromorphone HCl (Dilaudid) 0.5 mg PRN Q10MIN PRN IV SEV PAIN, Second choice; Start 03/24/17 at 07:45; Stop 03/25/17 at 07:44; Status DC Prochlorperazine Edisylate (Compazine) 5 mg PACU PRN PRN IV NAUSEA, MRX1; Start 03/24/17 at 07:45; Stop 03/25/17 at 07:44; Status DC Bupivacaine HCl/ Epinephrine Bitart (Sensorcain-Mpf Epi 0.5%-[id number]) 30 ml STK -MED ONCE .ROUTE Last administered on 03/24/17t 15:56; Start 03/24/17 at 10: 28; Stop 03/24/17 at 10:29; Status DC Neostigmine Methylsulfate (Bloxiverz) 10 mg STK-MED ONCE .ROUTE ; Start at 14:38; Stop 03/24/17 at 14:39; Status DC Rocuronium [place] (Zemuron) 50 mg STK-MED ONCE .ROUTE ; Start 03/24/17 at 14: 38; Stop 03/24/17 at 14:39; Status DC Fentanyl Citrate (Fentanyl 2ml Vial) 100 mcg STK-MED ONCE .ROUTE ; Start at 14:38; Stop 03/24/17 at 14:39; Status DC Phenylephrine HCl 1 mg STK-MED ONCE IV ; Start 03/24/17 at 14:40; Stop at 14:41; Status DC Lidocaine HCl (Lidocaine Pf 2% Vial) 5 ml STK-MED ONCE .ROUTE ; Start 03/24/17 at 14:40; Stop 03/24/17 at 14:41; Status DC Dexamethasone Sodium Phosphate (Decadron) 20 mg STK-MED ONCE .ROUTE ; Start at 14:40; Stop 03/24/17 at 14:41; Status DC Ondansetron HCl (Zofran) 4 mg STK-MED ONCE .ROUTE ; Start 03/24/17 at 14:40; Stop 03/24/17 at 14:41; Status DC Propofol 20 ml @ As Directed STK-MED ONCE IV ; Start 03/24/17 at 14:40; Stop 03/24/17 at 14:41; Status DC Glycopyrrolate (Robinul) 1 mg STK-MED ONCE .ROUTE ; Start 03/24/17 at 15:11; Stop 03/24/17 at 15:12; Status DC Rocuronium [place] (Zemuron) 50 mg STK-MED ONCE .ROUTE ; Start 03/24/17 at 15: 53; Stop 03/24/17 at 15:54; Status DC Fentanyl Citrate (Fentanyl 2ml Vial) 100 mcg STK-MED ONCE .ROUTE ; Start at 16:01; Stop 03/24/17 at 16:02; Status DC Morphine Sulfate 10 mg STK-MED ONCE .ROUTE ; Start 03/24/17 at 16:02; Stop at 16:03; Status DC Albumin Human 500 ml @ As Directed STK-MED ONCE IV ; Start 03/24/17 at 17:03; Stop 03/24/17 at 17:04; Status DC Phenylephrine HCl (Corky-Synephrine Inj) 10 mg STK-MED ONCE .ROUTE ; Start at 17:27; Stop 03/24/17 at 17:28; Status DC Rocuronium [place] (Zemuron) 100 mg STK-MED ONCE .ROUTE ; Start 03/24/17 at 17: 57; Stop 03/24/17 at 17:58; Status DC Enoxaparin Sodium (Lovenox 40mg Syringe) 40 mg Q24H SQ Last administered on t 20:51; Start 03/24/17 at 20:45; Stop 03/26/17 at 19:34; Status DC Sodium Chloride (Normal Saline Flush) 3 ml QSHIFT PRN IV AFTER MEDS AND BLOOD DRAWS; Start 03/24/17 at 20:45 Ringer's Solution 1,000 ml @ 100 mls/hr Q10H IV Last administered on t 12:32; Start 03/24/17 at 20:43; Stop 03/25/17 at 16:52; Status DC Naloxone HCl (Narcan) 0.4 mg PRN Q2MIN PRN IV SEE INSTRUCTIONS; Start at 20:45 Sodium Chloride 1,000 ml @ 25 mls/hr Q24H IV Last administered on 03/27/17 12:08; Start 03/24/17 at 20:43 Hydromorphone HCl 30 ml @ 0 mls/hr CONT PRN PRN IV PROTOCOL Last administered on 03/24/17 23:16; Start 03/24/17 at 20:45 Prochlorperazine Edisylate (Compazine) 5 mg PRN Q4HRS PRN IV NAUSEA/VOMITING, 2ND CHOICE; Start 03/25/17 at 07:45 Pantoprazole Sodium (PROTONIX VIAL for IV PUSH) 40 mg DAILYAC IVP Last administered on 04/04/17 08:58; Start 03/25/17 at 10:15 Linezolid 300 ml @ 300 mls/hr Q12HR IV Last administered on 03/26/17 20:54; Start 03/25/17 at 11:00; Stop 03/27/17 at 08:05; Status DC Fluconazole/ Sodium Chloride 100 ml @ 100 mls/hr Q24H IV Last administered on 04/04/17 12:16; Start 03/25/17 at 11:00 Dextrose/Lactated Ringer's 1,000 ml @ 75 mls/hr [id number] IV Last administered on 04/03/17 08:54; Start 03/25/17 at 17:00; Stop 04/04/17 at 09:23; Status DC Famotidine (Pepcid Vial) 40 mg QHS IVP Last administered on 03/28/17 21:35; Start 03/25/17 at 21:00; Stop 03/29/17 at 08:02; Status DC Lorazepam (Ativan) 0.5 mg 1X ONCE IV ; Start 03/26/17 at 07:00; Stop at 07:01; Status Cancel Lorazepam (Ativan) 0.5 mg PRN Q8HRS PRN PO ANXIETY / AGITATION; Start at 07:00; Status Cancel Furosemide (Lasix) 40 mg 1X ONCE IVP Last administered on 03/26/17 09:54; Start 03/26/17 at 09:00; Stop 03/26/17 at 09:01; Status DC Furosemide (Lasix) 20 mg DAILY IVP Last administered on 03/30/17 09:29; Start 03/27/17 at 09:00; Stop 03/31/17 at 12:22; Status DC Digoxin (Lanoxin) 250 mcg 1X ONCE IV Last administered on 03/26/17 15:06; Start 03/26/17 at 15:15; Stop 03/26/17 at 15:16; Status DC Iohexol (Omnipaque 300 Mg/ml) 75 ml 1X ONCE IV Last administered on 16:41; Start 03/26/17 at 16:45; Stop 03/26/17 at 16:46; Status DC Info (Do NOT chart on this entry -- for MONITORING) 1 each PRN DAILY PRN MC SEE COMMENTS; Start 03/26/17 at 16:45; Stop 03/28/17 at 16:44; Status DC Norepinephrine Bitartrate 250 ml @ As Directed STK-MED ONCE IV ; Start at 17:42; Stop 03/26/17 at 17:43; Status DC Norepinephrine Bitartrate 250 ml @ 0 mls/hr CONT PRN IV SEE I/O RECORD Last administered on 03/26/17 18:01; Start 03/26/17 at 18:00; Stop 04/04/17 at 09 :57; Status DC Enoxaparin Sodium (Lovenox Per Pharmacy Treatment Dosing) 1 each PRN DAILY PRN MC SEE COMMENTS; Start 03/26/17 at 19:30; Stop 03/28/17 at 12:38; Status DC Enoxaparin Sodium (Lovenox 80mg Syringe) 80 mg Q12HR SQ Last administered on 21:51; Start 03/26/17 at 20:00; Stop 03/28/17 at 15:36; Status DC Daptomycin 460 mg/ Sodium Chloride 50 ml @ 100 mls/hr Q24H IV Last administered on 04/04/17 10:29; Start 03/27/17 at 09:00 Digoxin (Lanoxin) 250 mcg 1X ONCE IV Last administered on 03/27/17 12:09; Start 03/27/17 at 12:00; Stop 03/27/17 at 12:01; Status DC Insulin Detemir (Levemir) 5 units QHS SQ Last administered on 04/03/17 21:50 ; Start 03/27/17 at 21:00 Albumin Human 100 ml @ 100 mls/hr Q8H IV Last administered on 03/29/17 00:42 ; Start 03/28/17 at 09:00; Stop 03/29/17 at 01:59; Status DC Lorazepam (Ativan) 1 mg PRN Q6HRS PRN PO ANXIETY / AGITATION Last administered on 03/30/17 17:43; Start 03/28/17 at 16:00 Iohexol (Omnipaque 300 Mg/ml) 75 ml 1X ONCE IV Last administered on 16:00; Start 03/28/17 at 16:00; Stop 03/28/17 at 16:02; Status DC Info (Do NOT chart on this entry -- for MONITORING) 1 each PRN DAILY PRN MC SEE COMMENTS; Start 03/28/17 at 16:15; Stop 03/30/17 at 16:14; Status DC Fentanyl Citrate (Fentanyl 2ml Vial) 50 mcg PRN Q4HRS PRN IV PAIN Last administered on 04/01/17 08:14; Start 03/29/17 at 09:45 Ciprofloxacin/ Dextrose 200 ml @ 200 mls/hr Q12HR IV Last administered on 08:58; Start 03/30/17 at 09:00; Stop 04/04/17 at 10:45; Status DC Lorazepam (Ativan) 0.5 mg Q12HR PO Last administered on 04/04/17 08:57; Start 03/30/17 at 21:00 Dopamine HCl/ Dextrose 250 ml @ 15.155 mls/ hr CONT PRN IV SEE I/O RECORD Last administered on 04/04/17 13:44; Start 03/31/17 at 13:00 Info 1 each PRN DAILY PRN MC SEE COMMENTS Last administered on 04/04/17 12:23 ; Start 04/03/17 at 12:15 Sodium Chloride 90 meq/Potassium Chloride 50 meq/ Potassium Phosphate 20.4 mmol/ Magnesium Sulfate 10 meq/ Calcium Gluconate 10 meq/ Multivitamins 10 ml/Chromium / Copper/Manganese/ Seleni/Zn 1 ml/ Total Parenteral Nutrition/Amino Acids/ Dextrose/ Fat Emulsion Intravenous 1,512 ml @ 63 mls/hr TPN CONT IV Last administered on 04/03/17 21:38; Start 04/03/17 at 22:00; Stop 04/04/17 at 21 :59 Levofloxacin/ Dextrose 100 ml @ 100 mls/hr Q24H IV ; Start 04/04/17 at 21:00 Furosemide (Lasix) 40 mg DAILY IVP Last administered on 04/04/17 12:08; Start 04/04/17 at 12:00 Sodium Chloride 90 meq/Potassium Chloride 50 meq/ Potassium Phosphate 20.4 mmol/ Magnesium Sulfate 16 meq/ Calcium Gluconate 10 meq/ Multivitamins 10 ml/Chromium / Copper/Manganese/ Seleni/Zn 1 ml/ Total Parenteral Nutrition/Amino Acids/ Dextrose/ Fat Emulsion Intravenous 1,512 ml @ 63 mls/hr TPN CONT IV ; Start 04/04/17 at 22:00; Stop 04/05/17 at 21:59 Active Scripts Active Reported Flagyl (Metronidazole) 500 Mg Tablet 1 Tab PO BID Cefpodoxime Proxetil 200 Mg Tablet 1 Tab PO BID Ferrous Sulfate 325 Mg Tablet 1 Tab PO DAILY Lasix (Furosemide) 40 Mg Tablet 40 Mg PO QODAY Potassium Chloride 10 Meq Capsule.er 10 Meq PO QODAY Metoprolol Tartrate 25 Mg Tablet 12.5 Mg PO BID Atorvastatin Calcium 40 Mg Tablet 40 Mg PO HS Clopidogrel (Clopidogrel Bisulfate) 75 Mg Tablet 1 Tab PO DAILY Diclofenac Sodium 75 Mg Tablet.dr 75 Mg PO DAILY Ranitidine Hcl 150 Mg Tablet 1 Tab PO BID Aspirin 81 Mg Tab.chew 1 Tab PO DAILY Vitals/I & O Vital Sign - Last 24 Hours 04/03/17 04/03/17 04/03/17 04/03/17 15:34 15:49 16:00 16:20 Temp 98.2 98.2 Pulse 114 Resp 44 B/P (MAP) 117/75 (89) Pulse Ox 95 94 O2 Delivery BiPAP/CPAP BiPAP/CPAP BiPAP/CPAP O2 Flow Rate 3.0 04/03/17 04/03/17 04/03/17 04/03/17 17:40 19:40 20:00 20:00 Temp 99.0 99.0 Pulse 95 Resp 22 B/P (MAP) 144/70 (94) O2 Delivery BiPAP/CPAP BiPAP/CPAP Bi-pap O2 Flow Rate 3.0 04/03/17 04/03/17 04/03/1717 21:05 22:40 23:30 00:00 Temp 98.9 98.9 Pulse 95 Resp 24 B/P (MAP) 108/51 (70) Pulse Ox 95 O2 Delivery BiPAP/CPAP BiPAP/CPAP BiPAP/CPAP O2 Flow Rate 3.0 04/04/17 04/04/17 04/04/17 04/04/17 01:00 02:43 03:06 03:59 Pulse Ox 95 O2 Delivery BiPAP/CPAP BiPAP/CPAP BiPAP/CPAP BiPAP/CPAP 04/04/17 04/04/17 04/04/17 04/04/17 04:01 04:02 04:20 05:26 Temp 99.5 99.5 Pulse 90 Resp 24 B/P (MAP) 117/65 (82) Pulse Ox 98 O2 Delivery BiPAP/CPAP BiPAP/CPAP BiPAP/CPAP O2 Flow Rate 3.0 04/04/17 04/04/17 04/04/17 04/04/17 07:00 08:03 08:05 08:05 Temp 97.9 97.9 Pulse 97 Resp 35 B/P (MAP) 118/72 (87) Pulse Ox 97 95 O2 Delivery BiPAP/CPAP BiPAP/CPAP Bi-pap O2 Flow Rate 3.0 3.0 04/04/17 04/04/17 04/04/17 04/04/17 08:57 10:30 11:00 11:20 Temp 98.6 98.6 Pulse 97 98 Resp 28 B/P (MAP) 118/72 120/77 (91) Pulse Ox 95 100 96 O2 Delivery BiPAP/CPAP BiPAP/CPAP BiPAP/CPAP O2 Flow Rate 35.0 04/04/17 04/04/17 11:30 12:00 Pulse Ox 96 O2 Flow Rate 35.0 35.0 Intake and Output 04/03/17 04/03/17 04/04/17 15:00 23:00 07:00 Intake Total 1800 ml 979.2 ml Output Total 675 ml Balance 1800 ml 304.2 ml CICI OSCAR MD Apr 04, 2017 14:52
[2017-04-04 14:59] VITALS: BP 142/60
--- NOTE | 2017-04-04 15:47 | RAD ---
Portable chest, 04/04/2017: History: Pleural effusions Comparison is made to a study from 04/02/2017. A right PICC remains in place extending to the level of the atriocaval junction. The heart appears to be within normal limits in size. The pulmonary vascularity is normal. There are persistent bibasilar opacities, perhaps slightly improved. The findings suggest ongoing pleural fluid and underlying atelectasis. The upper lung parnell are clear. No new abnormality is detected. IMPRESSION: Ongoing pleural effusions and bibasilar atelectasis, perhaps slightly improved since 04/02/2017.
[2017-04-04 19:00] VITALS: BP 98/49
[2017-04-04] MEDS: IV NORMAL SALINE 1000ML BAG 1,000 ML IV SCH (20:43)
[2017-04-04] MEDS: INSULIN DETEMIR 300 UNITS/3 ML INSULN.PEN. SQ SCH (21:30)
[2017-04-04] MEDS ORDERED: AMINO ACIDS IV SCH ×10 (22:00)
[2017-04-04] MEDS ORDERED: TOTAL PARENTERAL NUTRITION IV SCH ×10 (22:00)
[2017-04-04] MEDS ORDERED: [UNRECOGNIZED DRUG - OTHER] IV SCH ×10 (22:00)
[2017-04-04] MEDS ORDERED: DEXTROSE 70% IV SCH ×10 (22:00)
[2017-04-04 22:53] VITALS: BP 86/51
[2017-04-05 03:00] VITALS: BP 112/59
[2017-04-05 04:16] LABS: CALCIUM 8.1 mg/dL (8.5-10.1); CREATININE 0.6 mg/dL (0.6-1.0); GFR 98.5; MAGNESIUM 1.7 mg/dL (1.8-2.4); PHOSPHORUS 3.4 mg/dL (2.6-4.7); POTASSIUM 3.9 mmol/L (3.5-5.1)
[2017-04-05 07:00] VITALS: BP 106/52
[2017-04-05] MEDS: METOPROLOL SUCC 24HR ER 25 MG TAB.ER.24H. PO SCH (09:00)
[2017-04-05] MEDS: LORazepam 0.5 MG TABLET PO SCH ×2 (09:00→20:54)
[2017-04-05] MEDS: FUROSEMIDE 40 MG/4 ML VIAL. IVP SCH (09:00)
--- NOTE | 2017-04-05 09:05 | PDOC ---
SURGICAL PROGRESS NOTE Subjective Pt without new c/o, on bipap, eladio po, some abd soreness Vital Signs Vital Signs Date Time Temp Pulse Resp B/P (MAP) Pulse Ox O2 Delivery O2 Flow Rate FiO2 04/05/17 07:01 98 BiPAP/CPAP 04/05/17 03:00 98.2 83 22 112/59 (76) 5.0 98.2 I&O Intake and Output 04/05/17 07:00 Intake Total 1868.57 ml Output Total 2250 ml Balance -381.43 ml Intake Oral 0 ml IV Total 1868.57 ml Output Urine Total 2050 ml Stool Total 200 ml PATIENT HAS A HOPPER: Yes (accurate i and os) Abdomen: Soft, No tenderness, Other (wound with separation in inferior aspect, moist, absorbant dressing in place) Labs Laboratory Tests Test 04/03/17 11:41 04/03/17 17:01 04/03/17 21:20 04/04/17 05:52 Glucose (Fingerstick) 162 mg/dL (70-99) 171 mg/dL (70-99) 147 mg/dL (70-99) Sodium Level 137 mmol/L (136-145) Potassium Level 3.7 mmol/L (3.5-5.1) Chloride Level 103 mmol/L (98-107) Carbon Dioxide Level 29 mmol/L (21-32) Anion Gap 5 (6-14) Blood Urea Nitrogen 10 mg/dL (7-20) Creatinine 0.7 mg/dL (0.6-1.0) Estimated GFR (Cockcroft-Gault) 82.5 Glucose Level 210 mg/dL (70-99) Calcium Level 7.9 mg/dL (8.5-10.1) Phosphorus Level 3.2 mg/dL (2.6-4.7) Magnesium Level 1.4 mg/dL (1.8-2.4) Triglycerides Level 62 mg/dL (0-150) Test 04/04/17 08:05 04/04/17 20:47 04/05/17 03:45 Glucose (Fingerstick) 221 mg/dL (70-99) 244 mg/dL (70-99) Sodium Level 138 mmol/L (136-145) Potassium Level 3.9 mmol/L (3.5-5.1) Chloride Level 103 mmol/L (98-107) Carbon Dioxide Level 30 mmol/L (21-32) Anion Gap 5 (6-14) Blood Urea Nitrogen 16 mg/dL (7-20) Creatinine 0.6 mg/dL (0.6-1.0) Estimated GFR (Cockcroft-Gault) 98.5 Glucose Level 218 mg/dL (70-99) Calcium Level 8.1 mg/dL (8.5-10.1) Phosphorus Level 3.4 mg/dL (2.6-4.7) Magnesium Level 1.7 mg/dL (1.8-2.4) Laboratory Tests Test 04/04/17 20:47 04/05/17 03:45 Glucose (Fingerstick) 244 mg/dL (70-99) Sodium Level 138 mmol/L (136-145) Potassium Level 3.9 mmol/L (3.5-5.1) Chloride Level 103 mmol/L (98-107) Carbon Dioxide Level 30 mmol/L (21-32) Anion Gap 5 (6-14) Blood Urea Nitrogen 16 mg/dL (7-20) Creatinine 0.6 mg/dL (0.6-1.0) Estimated GFR (Cockcroft-Gault) 98.5 Glucose Level 218 mg/dL (70-99) Calcium Level 8.1 mg/dL (8.5-10.1) Phosphorus Level 3.4 mg/dL (2.6-4.7) Magnesium Level 1.7 mg/dL (1.8-2.4) Problem List Problems Medical Problems: (1) Abdominal abscess Status: Acute (2) Abdominal pain Status: Acute Assessment/Plan s/p xlap cont ADAT and TPN (short bowel proximal to protecting jejunostomy) cont wound care and appreciate wound care team Problems: LI HAMMOND MD Apr 05, 2017 09:05
--- NOTE | 2017-04-05 09:43 | PDOC ---
Infectious Disease Note Subjective Subjective pt remains on bipap Denies f/c/n/v/d//CP/abdominal pain Denies muscle aches continues to have drainage from the abdo wound,lower incision site,brownish fluid ROS ROS as above Vital Sign Vital Signs Vital Signs Date Time Temp Pulse Resp B/P (MAP) Pulse Ox O2 Delivery O2 Flow Rate FiO2 04/05/17 07:01 98 BiPAP/CPAP 04/05/17 03:00 98.2 83 22 112/59 (76) 5.0 98.2 Physical Exam PHYSICAL EXAM GENERAL: on bipap,alert,weak HEENT: anicteric NECK: Supple, LUNGS: coarse bronchial bs anteriorly HEART: S1S2, tachy ABD: dressing intact,gauze soaked with leakage from inferior aspect of incision, ileostomy with liquid stool EXT: some edema, no cyanosis RESIDENTIAL BUILDING INSPECTOR: Alert, oriented x 3, nonfocal SKIN: No gen rash Midline: ok Labs Lab Laboratory Tests Test 04/04/17 20:47 04/05/17 03:45 04/05/17 09:21 Glucose (Fingerstick) 244 mg/dL (70-99) 233 mg/dL (70-99) Sodium Level 138 mmol/L (136-145) Potassium Level 3.9 mmol/L (3.5-5.1) Chloride Level 103 mmol/L (98-107) Carbon Dioxide Level 30 mmol/L (21-32) Anion Gap 5 (6-14) Blood Urea Nitrogen 16 mg/dL (7-20) Creatinine 0.6 mg/dL (0.6-1.0) Estimated GFR (Cockcroft-Gault) 98.5 Glucose Level 218 mg/dL (70-99) Calcium Level 8.1 mg/dL (8.5-10.1) Phosphorus Level 3.4 mg/dL (2.6-4.7) Magnesium Level 1.7 mg/dL (1.8-2.4) Micro RUN DATE: 03/16/17 PAGE 1 RUN TIME: 0736 [facility] [address] [place] [address] M.D., Workers' Compensation Magistrate PATIENT: SAFIA MIRANDA ACCT: [id number] LOC: [address] [place] [address] U : [id number] AGE/SX: 71/F ROOM: 400 REG : 03/09/[address]: MILENA MCMILLAN MD : 1945 BED: 1 DIS : STATUS: ADM IN TLOC: SPEC #: [id number] TIFFANIE: 03/12/17 STATUS: COMP REQ #: [id number] RECD: 03/12/[address]: CRISPIN HEREDIA MD SOURCE: ABDOMEN ENTR: 03/12/[address]: SANDRA RODNEY MD SPDESC: MILENA CASTELLANO MD ORDERED: ANAER-AERO CULT Procedure Result ANAEROBIC-AEROBIC CULTURE Final Final report ANAEROBIC RES 1 Final Comment No anaerobic growth in 72 hours. AEROBIC CULT Final Final report AEROBIC RES 1 Final Klebsiella pneumoniae Moderate growth AEROBIC RES 2 Final Yeast Moderate growth Request for further identification must be made within 1 week. AEROBIC RES 3 Final Comment Vancomycin-resistant Enterococcus (Enterococcus faecium) Heavy growth AEROBIC RES 4 Final Comment Pseudomonas aeruginosa Moderate growth CONTINUED ON NEXT PAGE RUN DATE: 03/16/17 PAGE 2 RUN TIME: 735 [facility] [address] [place] [address] M.D., Workers' Compensation Magistrate SPEC: [id number] PATIENT: EDMUND MIRANDAANN-MARIE Edwards [id number] ( Continued) Procedure Result ANTIMICROBIAL SUSCEPTIBILITY Final Comment S = Susceptible; I = Intermediate; R = Resistant P = Positive; N = Negative MICS are expressed in micrograms per mL Antibiotic RSLT#1 RSLT#2 RSLT#3 RSLT#4 Amikacin S Amoxicillin/Clavulanic Acid S Ampicillin R Cefepime S S Ceftazidime S Ceftriaxone S Cefuroxime I Ciprofloxacin S S Ertapenem S Gentamicin S S Imipenem S S Levofloxacin S S Linezolid S Meropenem S Penicillin R Piperacillin R S Quinupristin/Dalfopristin S Tetracycline S Ticarcillin R Tobramycin S S Trimethoprim/Sulfa S Vancomycin R Performed at: [facility] [employer] [id number] Director Software Quality Assurance: Ashia Rogers MD, Phone: [phone] END OF REPORT Objective Assessment Intraabdominal abscess Status post laparoscopic converted to open exploration for extensive lysis of adhesion, removal of old mesh, subtotal colectomy, small bowel resection and incisional hernia repair. 03/14/2017 Abdominal abscess s/p drain c/s + Klebsiella ( R to Zosyn ,Cipro/Levo S) and enterococcus amp resistant,VRE and PSAE ( R to ticarcillin only otherwise sensitive, Cipro/Levo S) (yeast) Hypotension on dopamine 5 mcg/hr Kmmlz-xo-xekueap respiratory failure, status post surgery, now on bipap, improving slowly DM HTN thrombocytopenia resolved anemia pleural effusions CXR slight improvement Plan Plan of Care Cont Fluconazole and dapto,levaquin (changed from meropenem on 03/30 for possible B lactam induced thrombocytopenia) weekly cpk concern is drainage from inferior aspect of the abdomen ,brownish she may need imaging if it continues will check CBCD,CMP continue supportive care RODNEY,ARUNDHATI S MD Apr 05, 2017 09:43
[2017-04-05] MEDS ORDERED: INSULIN DETEMIR 300 UNITS/3 ML INSULN.PEN. SQ ONE (09:45)
[2017-04-05] MEDS: PANTOPRAZOLE IV PUSH 40 MG VIAL. IVP SCH (10:06)
[2017-04-05] MEDS: ASPIRIN CHEWABLE 81 MG TABLET. PO SCH (10:06)
[2017-04-05] MEDS: FERROUS SULFATE 325 MG TABLET. PO SCH (10:06)
[2017-04-05 11:00] VITALS: BP_SYST 103; BP_SYST 91; BP_SYST 95; BP_DIAS 32; BP_DIAS 41; BP_DIAS 51
--- NOTE | 2017-04-05 12:02 | PDOC ---
PULMONARY PROGRESS NOTES Subjective REMAINS ON BIPAP ALL NIGHT Vitals Vital Signs Date Time Temp Pulse Resp B/P (MAP) Pulse Ox O2 Delivery O2 Flow Rate FiO2 04/05/17 07:01 98 BiPAP/CPAP 04/05/17 07:00 97.9 87 24 106/52 (70) 97.9 04/05/17 03:00 5.0 General: Alert, Mild Distress Lungs: Other (decrease bs) Cardiovascular: S1, S2 Abdomen: Soft, Other (continues to have drainage from the abdo wound,lower incision site,brownish fluid) Neuro Exam: Alert Extremities: Other (1+edema) Skin: Warm Labs Laboratory Tests Test 04/03/17 17:01 04/03/17 21:20 04/04/17 05:52 04/04/17 08:05 Glucose (Fingerstick) 171 mg/dL (70-99) 147 mg/dL (70-99) 221 mg/dL (70-99) Sodium Level 137 mmol/L (136-145) Potassium Level 3.7 mmol/L (3.5-5.1) Chloride Level 103 mmol/L (98-107) Carbon Dioxide Level 29 mmol/L (21-32) Anion Gap 5 (6-14) Blood Urea Nitrogen 10 mg/dL (7-20) Creatinine 0.7 mg/dL (0.6-1.0) Estimated GFR (Cockcroft-Gault) 82.5 Glucose Level 210 mg/dL (70-99) Calcium Level 7.9 mg/dL (8.5-10.1) Phosphorus Level 3.2 mg/dL (2.6-4.7) Magnesium Level 1.4 mg/dL (1.8-2.4) Triglycerides Level 62 mg/dL (0-150) Test 04/04/17 20:47 04/05/17 03:45 04/05/17 09:21 Glucose (Fingerstick) 244 mg/dL (70-99) 233 mg/dL (70-99) Sodium Level 138 mmol/L (136-145) Potassium Level 3.9 mmol/L (3.5-5.1) Chloride Level 103 mmol/L (98-107) Carbon Dioxide Level 30 mmol/L (21-32) Anion Gap 5 (6-14) Blood Urea Nitrogen 16 mg/dL (7-20) Creatinine 0.6 mg/dL (0.6-1.0) Estimated GFR (Cockcroft-Gault) 98.5 Glucose Level 218 mg/dL (70-99) Calcium Level 8.1 mg/dL (8.5-10.1) Phosphorus Level 3.4 mg/dL (2.6-4.7) Magnesium Level 1.7 mg/dL (1.8-2.4) Laboratory Tests Test 04/04/17 20:47 04/05/17 03:45 04/05/17 09:21 Glucose (Fingerstick) 244 mg/dL (70-99) 233 mg/dL (70-99) Sodium Level 138 mmol/L (136-145) Potassium Level 3.9 mmol/L (3.5-5.1) Chloride Level 103 mmol/L (98-107) Carbon Dioxide Level 30 mmol/L (21-32) Anion Gap 5 (6-14) Blood Urea Nitrogen 16 mg/dL (7-20) Creatinine 0.6 mg/dL (0.6-1.0) Estimated GFR (Cockcroft-Gault) 98.5 Glucose Level 218 mg/dL (70-99) Calcium Level 8.1 mg/dL (8.5-10.1) Phosphorus Level 3.4 mg/dL (2.6-4.7) Magnesium Level 1.7 mg/dL (1.8-2.4) Medications Active Scripts Medications Dose Route/Sig Max Daily Dose Days Date Category Flagyl (Metronidazole) 500 Mg Tablet 1 Tab PO BID 03/01/17 Reported Cefpodoxime Proxetil 200 Mg Tablet 1 Tab PO BID 03/01/17 Reported Ferrous Sulfate 325 Mg Tablet 1 Tab PO DAILY 02/23/17 Reported Lasix (Furosemide) 40 Mg Tablet 40 Mg PO QODAY 02/23/17 Reported Potassium Chloride 10 Meq Capsule.er 10 Meq PO QODAY 02/23/17 Reported Metoprolol Tartrate 25 Mg Tablet 12.5 Mg PO BID 01/31/17 Reported Atorvastatin Calcium 40 Mg Tablet 40 Mg PO HS 01/31/17 Reported Clopidogrel (Clopidogrel Bisulfate) 75 Mg Tablet 1 Tab PO DAILY 08/24/15 Reported Diclofenac Sodium 75 Mg Tablet.dr 75 Mg PO DAILY 12/21/14 Reported Ranitidine Hcl 150 Mg Tablet 1 Tab PO BID 12/21/14 Reported Aspirin 81 Mg Tab.chew 1 Tab PO DAILY 04/15/14 Reported Impression . 1. Icwik-dn-hftwqqd respiratory failure, expected status post surgical intervention. Persistent dyspnea/ BIPAP. suspect due to abdominal process 2. Status post laparoscopic converted to open exploration for extensive lysis of adhesion, removal of old mesh, subtotal colectomy, small bowel resection and incisional hernia repair.Now with brown drainage from wound. entero-cutaneous fistula 3. Obesity, body mass index of 35. 4. Leukocytosis. 5. Enterocutaneous fistula. 6. Fever. 7. Abdominal abscess. 8. Ventral hernia, status post repair. 9. Bilateral effusions due to low oncotic pressure/ repeat cxr 04/02 with volume loss bases, no sig. fluid to tap 10. Anxiety disorder Plan . PT REMAINS ON BIPAP/ SOME ANXIETY DISORDER WELL.SUSPECT ABDOMINAL PROCESS CONTRIBUTING TO ONGOING DYSPNEA REPEAT CT ABDOMEN/PELVIS REPEAT CXR 04/02 WITH NOT ENOUGH FLUID. NO MARIA DEL CARMEN FOR THORACENTESIS LASIX IMPROVE NUTRITIONAL STATUS/ SEVERE MALNUTRITION VENOUS DOPPLER NEGATIVE/ CT NEGATIVE FOR PE MONITOR PLATELET / MUCH IMPROVED ANXIETY/ ON SCHEDULED ATHALLIE Armas/W STACI TUPRIN MD Apr 05, 2017 12:02
[2017-04-05] MEDS ORDERED: IOHEXOL 240 MG/ML 50ML VIAL. PO ONE (13:00)
[2017-04-05] MEDS: TPN PER PHARMACY MC PRN (13:00)
[2017-04-05] MEDS ORDERED: CONTRAST GIVEN MC PRN (13:00)
[2017-04-05] MEDS ORDERED: IOHEXOL 300 MG/ML 100ML VIAL. IV ONE (13:00)
[2017-04-05] MEDS: NORMAL SALINE IV SCH (13:51)
[2017-04-05] MEDS: DAPTOMYCIN IV SCH (13:51)
[2017-04-05] MEDS: HYDROcodone/APAP 7.5/325MG 1 TAB TABLET PO PRN (13:53)
[2017-04-05] MEDS: IV NORMAL SALINE 1000ML BAG 1,000 ML IV SCH (14:15)
[2017-04-05] MEDS: FLUCONAZOLE 200MG/100ML PREMIX 100 ML IV SCH (14:17)
[2017-04-05 15:00] VITALS: BP 113/46
--- NOTE | 2017-04-05 16:53 | RAD ---
CT abdomen and pelvis with contrast Indication: Abdominal abscess or enterocutaneous fistula. Technique: CT abdomen and pelvis with 75 mL of Omnipaque 300 IV contrast with 30 mL of Omnipaque 240 by mouth contrast with multi planar reformats. Comparison: Previous study from 03/26/2017 Findings: Heart is normal in size. Coronary artery disease noted. Partially visualized is a central venous catheter tip in the SVC. Mitral and aortic valvular calcifications noted. Small bilateral pleural effusions noted, right more than left with passive atelectasis of the adjacent lung parenchyma. Patchy opacities are seen in the right middle lobe. Liver is normal in morphology without focal hepatic lesion. Spleen show no focal lesions. Status post cholecystectomy. Pancreas is atrophic without focal lesion. Adrenal glands demonstrate bilateral thickening likely adenomatous hyperplasia. No hydronephrosis or suspicious renal lesion. Cortical scarring noted in the inferior pole of the left kidney. Extensive post surgical changes are seen in the abdomen. Left abdominal ostomy. There is no bowel obstruction. Status post partial colectomy with enterocolonic anastomosis in the right lower quadrant. There is a 10.0 x 5.5 x 18.0 cm fluid collection with air-fluid levels in the right lower quadrant. Fluid-filled distal small bowel loops are noted. There is stranding densities in the abdominal mesentery which may be secondary to clinician or edema. Midline anterior abdominal wall surgical wound noted. Foci of air is seen along the tract of the anterior abdominal surgical wound. There is a small amount of fluid along the inferior aspect of the surgical wound. Bladder is impressed with Hinton catheter. Uterus isn't visualized likely surgically absent. No solid adnexal lesions. No ascites. Trace free pelvic fluid. Scattered atherosclerotic disease of the abdominal aorta noted. No suspicious bony lesion. Multilevel degenerative disc disease in the lower thoracic spine. Diffuse edema noted of the abdominal wall. Impression: 1. Small bilateral pleural effusions with passive atelectasis of the adjacent lung parenchyma. Underlying pneumonia not ruled out. 2. Extensive postoperative changes in the abdomen with a loculated fluid collection in the right lower quadrant which may represent a patulous loop of bowel or fluid collection/abscess from anastomotic dehiscence. Oral contrast has not traversed this segment of bowel at the time of scanning limiting evaluation. Follow-up CT abdomen and pelvis is recommended to evaluate for interval change in this collection. 3. Anterior midline abdominal wall open surgical wound with small amount of fluid collection along the inferior aspect. PQRS Compliance Statement: One or more of the following individualized dose reduction techniques were utilized for this examination: 1. Automated exposure control 2. Adjustment of the mA and/or kV according to patient size 3. Use of iterative reconstruction technique
--- NOTE | 2017-04-05 17:38 | PDOC ---
PROGRESS NOTES Subjective Subjective c/c -f/u of thrombocytopenia ROS - no CP Objective Objective Vital Signs Date Time Temp Pulse Resp B/P (MAP) Pulse Ox O2 Delivery O2 Flow Rate FiO2 04/05/17 14:53 24 98 Nasal Cannula 5.0 04/05/17 11:00 98.5 97 91/51 (64) 98.5 Intake and Output 04/05/17 07:00 Intake Total 1868.57 ml Output Total 2250 ml Balance -381.43 ml Intake Oral 0 ml IV Total 1868.57 ml Output Urine Total 2050 ml Stool Total 200 ml Physical Exam Heart: Normal S1, Normal S2 General: Alert, Oriented X3, No acute distress Lungs: Clear to auscultation Assessment Assessment Problems Medical Problems: (1) Abdominal abscess Status: Acute (2) Abdominal pain Status: Acute A/P: 1. Thrombocytopenia. Improved. Plt count 156. 2. Anemia. Most likely multifactorial. Iron studies are suggestive of anemia of chronic disease. /B12 normal. Hb 8.4, monitor prn 3. Abscess. Management as per primary/surgery 4. Status post laparoscopic converted to open exploration for extensive lysis of adhesion, removal of old mesh, subtotal colectomy, small bowel resection and incisional hernia repair. Comment Review of Relevant I have reviewed the following items chito (where applicable) has been applied. Labs Laboratory Tests Test 04/03/17 21:20 04/04/17 05:52 04/04/17 08:05 04/04/17 20:47 Glucose (Fingerstick) 147 mg/dL (70-99) 221 mg/dL (70-99) 244 mg/dL (70-99) Sodium Level 137 mmol/L (136-145) Potassium Level 3.7 mmol/L (3.5-5.1) Chloride Level 103 mmol/L (98-107) Carbon Dioxide Level 29 mmol/L (21-32) Anion Gap 5 (6-14) Blood Urea Nitrogen 10 mg/dL (7-20) Creatinine 0.7 mg/dL (0.6-1.0) Estimated GFR (Cockcroft-Gault) 82.5 Glucose Level 210 mg/dL (70-99) Calcium Level 7.9 mg/dL (8.5-10.1) Phosphorus Level 3.2 mg/dL (2.6-4.7) Magnesium Level 1.4 mg/dL (1.8-2.4) Triglycerides Level 62 mg/dL (0-150) Test 04/05/17 03:45 04/05/17 09:21 04/05/17 11:38 Sodium Level 138 mmol/L (136-145) Potassium Level 3.9 mmol/L (3.5-5.1) Chloride Level 103 mmol/L (98-107) Carbon Dioxide Level 30 mmol/L (21-32) Anion Gap 5 (6-14) Blood Urea Nitrogen 16 mg/dL (7-20) Creatinine 0.6 mg/dL (0.6-1.0) Estimated GFR (Cockcroft-Gault) 98.5 Glucose Level 218 mg/dL (70-99) Calcium Level 8.1 mg/dL (8.5-10.1) Phosphorus Level 3.4 mg/dL (2.6-4.7) Magnesium Level 1.7 mg/dL (1.8-2.4) Glucose (Fingerstick) 233 mg/dL (70-99) 225 mg/dL (70-99) Laboratory Tests Test 04/04/17 20:47 04/05/17 03:45 04/05/17 09:21 04/05/17 11:38 Glucose (Fingerstick) 244 mg/dL (70-99) 233 mg/dL (70-99) 225 mg/dL (70-99) Sodium Level 138 mmol/L (136-145) Potassium Level 3.9 mmol/L (3.5-5.1) Chloride Level 103 mmol/L (98-107) Carbon Dioxide Level 30 mmol/L (21-32) Anion Gap 5 (6-14) Blood Urea Nitrogen 16 mg/dL (7-20) Creatinine 0.6 mg/dL (0.6-1.0) Estimated GFR (Cockcroft-Gault) 98.5 Glucose Level 218 mg/dL (70-99) Calcium Level 8.1 mg/dL (8.5-10.1) Phosphorus Level 3.4 mg/dL (2.6-4.7) Magnesium Level 1.7 mg/dL (1.8-2.4) Microbiology 03/09/17 Blood Culture - Final, Complete NO GROWTH AFTER 5 DAYS 03/09/17 Urine Culture - Final, Complete 03/09/17 Urine Culture Result 1 (KULDEEP) - Final, Complete 03/12/17 Fungal Culture - Final, Complete 03/12/17 Fungal Culture Result 1 - Final, Complete Medications Current Medications Ondansetron HCl (Zofran) 4 mg 1X ONCE IV Last administered on 03/09/17 08:30 ; Start 03/09/17 at 08:15; Stop 03/09/17 at 08:16; Status DC Iohexol (Omnipaque 300 Mg/ml) 75 ml 1X ONCE IV Last administered on 03/09/17 08:50; Start 03/09/17 at 08:45; Stop 03/09/17 at 08:46; Status DC Info (Do NOT chart on this entry -- for MONITORING) 1 each PRN DAILY PRN MC SEE COMMENTS; Start 03/09/17 at 08:45; Stop 03/11/17 at 08:44; Status DC Ceftriaxone Sodium 50 ml @ 100 mls/hr 1X ONCE IV ; Start 03/09/17 at 09:30; Stop 03/09/17 at 09:55; Status DC Sodium Chloride 1,000 ml @ 1,000 mls/hr 1X ONCE IV Last administered on 09:55; Start 03/09/17 at 10:00; Stop 03/09/17 at 10:59; Status DC Ondansetron HCl (Zofran) 4 mg PRN Q8HRS PRN IV NAUSEA/VOMITING; Start 03/09/17 at 10:30; Stop 03/10/17 at 10:29; Status DC Meropenem 500 mg/ Sodium Chloride 50 ml @ 100 mls/hr Q8HRS IV Last administered on 03/16/17 06:09; Start 03/09/17 at 13:00; Stop 03/16/17 at 12: 59; Status DC Acetaminophen (Tylenol) 650 mg PRN QID PRN PO MILD PAIN / TEMP Last administered on 03/30/17 17:43; Start 03/09/17 at 20:30 Aspirin (Children'S Aspirin) 81 mg DAILY PO Last administered on 04/05/17 10: 06; Start 03/10/17 at 15:00 Clopidogrel Bisulfate (Plavix) 75 mg DAILY PO Last administered on 03/19/17 10:00; Start 03/10/17 at 15:00; Stop 03/22/17 at 09:10; Status DC Ferrous Sulfate (Feosol) 325 mg DAILY PO Last administered on 04/05/17 10:06 ; Start 03/10/17 at 15:00 Metoprolol Tartrate (Lopressor) 12.5 mg BID PO Last administered on 03/10/17 16:01; Start 03/10/17 at 15:00; Stop 03/10/17 at 21:01; Status DC Diclofenac Sodium (Voltaren) 75 mg DAILY PO Last administered on 03/23/17 09: 23; Start 03/10/17 at 14:30; Stop 03/29/17 at 10:50; Status DC Famotidine (Pepcid) 20 mg QHS PO Last administered on 03/24/17 21:20; Start 03/10/17 at 21:00; Stop 03/26/17 at 09:35; Status DC Glimepiride (Amaryl) 1 mg DAILY PO Last administered on 03/13/17 09:25; Start 03/11/17 at 15:00; Stop 03/13/17 at 17:02; Status DC Sodium Chloride 1,000 ml @ 100 mls/hr 1X ONCE IV Last administered on 21:00; Start 03/10/17 at 21:00; Stop 03/11/17 at 06:59; Status DC Lidocaine/Sodium Bicarbonate (Buffered Lidocaine 1%) 20 ml STK-MED ONCE IJ ; Start 03/12/17 at 13:05; Stop 03/12/17 at 13:06; Status DC Fentanyl Citrate (Fentanyl 2ml Vial) 100 mcg STK-MED ONCE .ROUTE ; Start at 13:20; Stop 03/12/17 at 13:21; Status DC Midazolam HCl (Versed) 2 mg STK-MED ONCE .ROUTE ; Start 03/12/17 at 13:20; Stop 03/12/17 at 13:21; Status DC Flumazenil (Romazicon) 0.5 mg STK-MED ONCE IV ; Start 03/12/17 at 13:20; Stop 03/12/17 at 13:21; Status DC Naloxone HCl (Narcan) 0.4 mg STK-MED ONCE .ROUTE ; Start 03/12/17 at 13:20; Stop 03/12/17 at 13:21; Status DC Lidocaine/Sodium Bicarbonate (Buffered Lidocaine 1%) 20 ml 1X ONCE IJ Last administered on 03/12/17 13:50; Start 03/12/17 at 13:30; Stop 03/12/17 at 13:33 ; Status DC Midazolam HCl (Versed) 2 mg 1X ONCE IV Last administered on 03/12/17 13:50; Start 03/12/17 at 13:30; Stop 03/12/17 at 13:33; Status DC Fentanyl Citrate (Fentanyl 2ml Vial) 100 mcg 1X ONCE IV Last administered on 03/12/17 13:50; Start 03/12/17 at 13:30; Stop 03/12/17 at 13:33; Status DC Lactobacillus Rhamnosus (Culturelle) 1 cap BID PO Last administered on 21:20; Start 03/12/17 at 21:00; Stop 03/25/17 at 21:06; Status DC Acetaminophen/ Hydrocodone Bitart (Lortab 7.5/325) 1 tab PRN Q6HRS PRN PO MODERATE - SEVERE PAIN Last administered on 04/05/17 13:53; Start 03/12/17 at 18:15 Ondansetron HCl (Zofran) 4 mg PRN Q6HRS PRN IV NAUSEA/VOMITING, 1ST CHOICE Last administered on 03/25/17 04:53; Start 03/13/17 at 09:00 Furosemide (Lasix) 40 mg QODAY PO Last administered on 03/22/17 09:39; Start 03/14/17 at 09:00; Stop 03/26/17 at 09:00; Status DC Glimepiride (Amaryl) 1 mg DAILY08 PO Last administered on 03/22/17 09:40; Start 03/14/17 at 08:00; Stop 03/23/17 at 08:52; Status DC Linezolid (Zyvox) 600 mg BID PO Last administered on 03/24/17 21:20; Start 03/14/17 at 13:15; Stop 03/25/17 at 10:49; Status DC Meropenem (Merrem) 500 mg Q8HRS IVP Last administered on 03/30/17 06:04; Start 03/16/17 at 14:00; Stop 03/30/17 at 07:49; Status DC Iohexol (Omnipaque 240 Mg/ml) 50 ml STK-MED ONCE .ROUTE ; Start 03/19/17 at 13: 11; Stop 03/19/17 at 13:12; Status DC Iohexol (Omnipaque 240 Mg/ml) 10 ml 1X ONCE IJ Last administered on t 14:07; Start 03/19/17 at 14:00; Stop 03/19/17 at 14:01; Status DC Info (Do NOT chart on this entry -- for MONITORING) 1 each PRN DAILY PRN MC SEE COMMENTS; Start 03/19/17 at 14:00; Stop 03/21/17 at 13:59; Status DC Iohexol (Omnipaque 240 Mg/ml) 50 ml STK-MED ONCE .ROUTE ; Start 03/19/17 at 13: 55; Stop 03/19/17 at 13:56; Status DC Fluconazole (Diflucan) 200 mg DAILY PO Last administered on 03/23/17 09:24; Start 03/22/17 at 09:30; Stop 03/25/17 at 10:51; Status DC Metoprolol Succinate (Toprol Xl) 12.5 mg DAILY PO Last administered on 08:57; Start 03/23/17 at 09:00 Glimepiride (Amaryl) 0.5 mg DAILY08 PO ; Start 03/24/17 at 08:00; Stop at 13:05; Status DC Morphine Sulfate 1 mg PRN Q10MIN PRN IV SEVERE PAIN; Start 03/26/17 at 07:00; Stop 03/26/17 at 07:00; Status DC Ringer's Solution 1,000 ml @ 30 mls/hr Q24H IV ; Start 03/26/17 at 07:00; Stop 03/26/17 at 07:00; Status DC Lidocaine HCl (Xylocaine-Mpf 1% Vial) 2 ml PRN 1X PRN ID PRIOR TO IV START; Start 03/26/17 at 07:00; Stop 03/26/17 at 07:00; Status DC Hydromorphone HCl (Dilaudid) 0.5 mg PRN Q10MIN PRN IV SEV PAIN, Second choice; Start 03/26/17 at 07:00; Stop 03/27/17 at 06:59; Status Cancel Prochlorperazine Edisylate (Compazine) 5 mg PACU PRN PRN IV NAUSEA, MRX1 Last administered on 03/25/17 07:45; Start 03/26/17 at 07:00; Stop 03/26/17 at 07 :00; Status DC Morphine Sulfate 1 mg PRN Q10MIN PRN IV SEVERE PAIN; Start 03/24/17 at 07:45; Stop 03/25/17 at 07:44; Status DC Ringer's Solution 1,000 ml @ 30 mls/hr Q24H IV Last administered on 14:15; Start 03/24/17 at 07:32; Stop 03/24/17 at 19:31; Status DC Lidocaine HCl (Xylocaine-Mpf 1% Vial) 2 ml 1X PRN PRN ID IV START; Start 03/24 at 07:45; Stop 03/25/17 at 07:44; Status DC Hydromorphone HCl (Dilaudid) 0.5 mg PRN Q10MIN PRN IV SEV PAIN, Second choice; Start 03/24/17 at 07:45; Stop 03/25/17 at 07:44; Status DC Prochlorperazine Edisylate (Compazine) 5 mg PACU PRN PRN IV NAUSEA, MRX1; Start 03/24/17 at 07:45; Stop 03/25/17 at 07:44; Status DC Bupivacaine HCl/ Epinephrine Bitart (Sensorcain-Mpf Epi 0.5%-[id number]) 30 ml STK -MED ONCE .ROUTE Last administered on 03/24/17 15:56; Start 03/24/17 at 10: 28; Stop 03/24/17 at 10:29; Status DC Neostigmine Methylsulfate (Bloxiverz) 10 mg STK-MED ONCE .ROUTE ; Start at 14:38; Stop 03/24/17 at 14:39; Status DC Rocuronium Porum (Zemuron) 50 mg STK-MED ONCE .ROUTE ; Start 03/24/17 at 14: 38; Stop 03/24/17 at 14:39; Status DC Fentanyl Citrate (Fentanyl 2ml Vial) 100 mcg STK-MED ONCE .ROUTE ; Start at 14:38; Stop 03/24/17 at 14:39; Status DC Phenylephrine HCl 1 mg STK-MED ONCE IV ; Start 03/24/17 at 14:40; Stop at 14:41; Status DC Lidocaine HCl (Lidocaine Pf 2% Vial) 5 ml STK-MED ONCE .ROUTE ; Start 03/24/17 at 14:40; Stop 03/24/17 at 14:41; Status DC Dexamethasone Sodium Phosphate (Decadron) 20 mg STK-MED ONCE .ROUTE ; Start at 14:40; Stop 03/24/17 at 14:41; Status DC Ondansetron HCl (Zofran) 4 mg STK-MED ONCE .ROUTE ; Start 03/24/17 at 14:40; Stop 03/24/17 at 14:41; Status DC Propofol 20 ml @ As Directed STK-MED ONCE IV ; Start 03/24/17 at 14:40; Stop 03/24/17 at 14:41; Status DC Glycopyrrolate (Robinul) 1 mg STK-MED ONCE .ROUTE ; Start 03/24/17 at 15:11; Stop 03/24/17 at 15:12; Status DC Rocuronium Porum (Zemuron) 50 mg STK-MED ONCE .ROUTE ; Start 03/24/17 at 15: 53; Stop 03/24/17 at 15:54; Status DC Fentanyl Citrate (Fentanyl 2ml Vial) 100 mcg STK-MED ONCE .ROUTE ; Start at 16:01; Stop 03/24/17 at 16:02; Status DC Morphine Sulfate 10 mg STK-MED ONCE .ROUTE ; Start 03/24/17 at 16:02; Stop at 16:03; Status DC Albumin Human 500 ml @ As Directed STK-MED ONCE IV ; Start 03/24/17 at 17:03; Stop 03/24/17 at 17:04; Status DC Phenylephrine HCl (Corky-Synephrine Inj) 10 mg STK-MED ONCE .ROUTE ; Start at 17:27; Stop 03/24/17 at 17:28; Status DC Rocuronium Porum (Zemuron) 100 mg STK-MED ONCE .ROUTE ; Start 03/24/17 at 17: 57; Stop 03/24/17 at 17:58; Status DC Enoxaparin Sodium (Lovenox 40mg Syringe) 40 mg Q24H SQ Last administered on 20:51; Start 03/24/17 at 20:45; Stop 03/26/17 at 19:34; Status DC Sodium Chloride (Normal Saline Flush) 3 ml QSHIFT PRN IV AFTER MEDS AND BLOOD DRAWS; Start 03/24/17 at 20:45 Ringer's Solution 1,000 ml @ 100 mls/hr Q10H IV Last administered on 12:32; Start 03/24/17 at 20:43; Stop 03/25/17 at 16:52; Status DC Naloxone HCl (Narcan) 0.4 mg PRN Q2MIN PRN IV SEE INSTRUCTIONS; Start at 20:45 Sodium Chloride 1,000 ml @ 25 mls/hr Q24H IV Last administered on 03/27/17 12:08; Start 03/24/17 at 20:43 Hydromorphone HCl 30 ml @ 0 mls/hr CONT PRN PRN IV PROTOCOL Last administered on 03/24/17 23:16; Start 03/24/17 at 20:45 Prochlorperazine Edisylate (Compazine) 5 mg PRN Q4HRS PRN IV NAUSEA/VOMITING, 2ND CHOICE; Start 03/25/17 at 07:45 Pantoprazole Sodium (PROTONIX VIAL for IV PUSH) 40 mg DAILYAC IVP Last administered on 04/05/17 10:06; Start 03/25/17 at 10:15 Linezolid 300 ml @ 300 mls/hr Q12HR IV Last administered on 03/26/17 20:54; Start 03/25/17 at 11:00; Stop 03/27/17 at 08:05; Status DC Fluconazole/ Sodium Chloride 100 ml @ 100 mls/hr Q24H IV Last administered on 04/05/17 14:17; Start 03/25/17 at 11:00 Dextrose/Lactated Ringer's 1,000 ml @ 75 mls/hr [id number] IV Last administered on 04/03/17 08:54; Start 03/25/17 at 17:00; Stop 04/04/17 at 09:23; Status DC Famotidine (Pepcid Vial) 40 mg QHS IVP Last administered on 03/28/17 21:35; Start 03/25/17 at 21:00; Stop 03/29/17 at 08:02; Status DC Lorazepam (Ativan) 0.5 mg 1X ONCE IV ; Start 03/26/17 at 07:00; Stop at 07:01; Status Cancel Lorazepam (Ativan) 0.5 mg PRN Q8HRS PRN PO ANXIETY / AGITATION; Start at 07:00; Status Cancel Furosemide (Lasix) 40 mg 1X ONCE IVP Last administered on 03/26/17 09:54; Start 03/26/17 at 09:00; Stop 03/26/17 at 09:01; Status DC Furosemide (Lasix) 20 mg DAILY IVP Last administered on 03/30/17 09:29; Start 03/27/17 at 09:00; Stop 03/31/17 at 12:22; Status DC Digoxin (Lanoxin) 250 mcg 1X ONCE IV Last administered on 03/26/17 15:06; Start 03/26/17 at 15:15; Stop 03/26/17 at 15:16; Status DC Iohexol (Omnipaque 300 Mg/ml) 75 ml 1X ONCE IV Last administered on 16:41; Start 03/26/17 at 16:45; Stop 03/26/17 at 16:46; Status DC Info (Do NOT chart on this entry -- for MONITORING) 1 each PRN DAILY PRN MC SEE COMMENTS; Start 03/26/17 at 16:45; Stop 03/28/17 at 16:44; Status DC Norepinephrine Bitartrate 250 ml @ As Directed STK-MED ONCE IV ; Start at 17:42; Stop 03/26/17 at 17:43; Status DC Norepinephrine Bitartrate 250 ml @ 0 mls/hr CONT PRN IV SEE I/O RECORD Last administered on 03/26/17 18:01; Start 03/26/17 at 18:00; Stop 04/04/17 at 09 :57; Status DC Enoxaparin Sodium (Lovenox Per Pharmacy Treatment Dosing) 1 each PRN DAILY PRN MC SEE COMMENTS; Start 03/26/17 at 19:30; Stop 03/28/17 at 12:38; Status DC Enoxaparin Sodium (Lovenox 80mg Syringe) 80 mg Q12HR SQ Last administered on 21:51; Start 03/26/17 at 20:00; Stop 03/28/17 at 15:36; Status DC Daptomycin 460 mg/ Sodium Chloride 50 ml @ 100 mls/hr Q24H IV Last administered on 04/05/17 13:51; Start 03/27/17 at 09:00 Digoxin (Lanoxin) 250 mcg 1X ONCE IV Last administered on 03/27/17 12:09; Start 03/27/17 at 12:00; Stop 03/27/17 at 12:01; Status DC Insulin Detemir (Levemir) 5 units QHS SQ Last administered on 04/04/17 21:30 ; Start 03/27/17 at 21:00; Stop 04/05/17 at 09:34; Status DC Albumin Human 100 ml @ 100 mls/hr Q8H IV Last administered on 03/29/17 00:42 ; Start 03/28/17 at 09:00; Stop 03/29/17 at 01:59; Status DC Lorazepam (Ativan) 1 mg PRN Q6HRS PRN PO ANXIETY / AGITATION Last administered on 03/30/17 17:43; Start 03/28/17 at 16:00 Iohexol (Omnipaque 300 Mg/ml) 75 ml 1X ONCE IV Last administered on 16:00; Start 03/28/17 at 16:00; Stop 03/28/17 at 16:02; Status DC Info (Do NOT chart on this entry -- for MONITORING) 1 each PRN DAILY PRN MC SEE COMMENTS; Start 03/28/17 at 16:15; Stop 03/30/17 at 16:14; Status DC Fentanyl Citrate (Fentanyl 2ml Vial) 50 mcg PRN Q4HRS PRN IV PAIN Last administered on 04/01/17 08:14; Start 03/29/17 at 09:45 Ciprofloxacin/ Dextrose 200 ml @ 200 mls/hr Q12HR IV Last administered on 08:58; Start 03/30/17 at 09:00; Stop 04/04/17 at 10:45; Status DC Lorazepam (Ativan) 0.5 mg Q12HR PO Last administered on 04/04/17 21:24; Start 03/30/17 at 21:00 Dopamine HCl/ Dextrose 250 ml @ 15.155 mls/ hr CONT PRN IV SEE I/O RECORD Last administered on 04/05/17 05:10; Start 03/31/17 at 13:00 Info 1 each PRN DAILY PRN MC SEE COMMENTS Last administered on 04/05/17 13:00 ; Start 04/03/17 at 12:15 Sodium Chloride 90 meq/Potassium Chloride 50 meq/ Potassium Phosphate 20.4 mmol/ Magnesium Sulfate 10 meq/ Calcium Gluconate 10 meq/ Multivitamins 10 ml/Chromium / Copper/Manganese/ Seleni/Zn 1 ml/ Total Parenteral Nutrition/Amino Acids/ Dextrose/ Fat Emulsion Intravenous 1,512 ml @ 63 mls/hr TPN CONT IV Last administered on 04/03/17 21:38; Start 04/03/17 at 22:00; Stop 04/04/17 at 21 :59; Status DC Levofloxacin/ Dextrose 100 ml @ 100 mls/hr Q24H IV Last administered on 21:21; Start 04/04/17 at 21:00 Furosemide (Lasix) 40 mg DAILY IVP Last administered on 04/04/17 12:08; Start 04/04/17 at 12:00 Sodium Chloride 90 meq/Potassium Chloride 50 meq/ Potassium Phosphate 20.4 mmol/ Magnesium Sulfate 16 meq/ Calcium Gluconate 10 meq/ Multivitamins 10 ml/Chromium / Copper/Manganese/ Seleni/Zn 1 ml/ Total Parenteral Nutrition/Amino Acids/ Dextrose/ Fat Emulsion Intravenous 1,512 ml @ 63 mls/hr TPN CONT IV Last administered on 04/04/17 21:16; Start 04/04/17 at 22:00; Stop 04/05/17 at 21 :59 Insulin Detemir (Levemir) 20 units QHS SQ ; Start 04/05/17 at 21:00 Insulin Detemir (Levemir) 10 units 1X ONCE SQ Last administered on 04/05/17 14:12; Start 04/05/17 at 09:45; Stop 04/05/17 at 09:46; Status DC Sodium Chloride 90 meq/Potassium Chloride 50 meq/ Potassium Phosphate 20.4 mmol/ Magnesium Sulfate 24 meq/ Calcium Gluconate 10 meq/ Multivitamins 10 ml/Chromium / Copper/Manganese/ Seleni/Zn 1 ml/ Total Parenteral Nutrition/Amino Acids/ Dextrose/ Fat Emulsion Intravenous 1,512 ml @ 63 mls/hr TPN CONT IV ; Start 04/05/17 at 22:00; Stop 04/06/17 at 21:59 Iohexol (Omnipaque 300 Mg/ml) 75 ml 1X ONCE IV ; Start 04/05/17 at 13:00; Stop 04/05/17 at 13:01; Status DC Iohexol (Omnipaque 240 Mg/ml) 30 ml 1X ONCE PO ; Start 04/05/17 at 13:00; Stop 04/05/17 at 13:01; Status DC Info (Do NOT chart on this entry -- for MONITORING) 1 each PRN DAILY PRN MC SEE COMMENTS; Start 04/05/17 at 13:00; Stop 04/07/17 at 12:59 Active Scripts Active Reported Flagyl (Metronidazole) 500 Mg Tablet 1 Tab PO BID Cefpodoxime Proxetil 200 Mg Tablet 1 Tab PO BID Ferrous Sulfate 325 Mg Tablet 1 Tab PO DAILY Lasix (Furosemide) 40 Mg Tablet 40 Mg PO QODAY Potassium Chloride 10 Meq Capsule.er 10 Meq PO QODAY Metoprolol Tartrate 25 Mg Tablet 12.5 Mg PO BID Atorvastatin Calcium 40 Mg Tablet 40 Mg PO HS Clopidogrel (Clopidogrel Bisulfate) 75 Mg Tablet 1 Tab PO DAILY Diclofenac Sodium 75 Mg Tablet.dr 75 Mg PO DAILY Ranitidine Hcl 150 Mg Tablet 1 Tab PO BID Aspirin 81 Mg Tab.chew 1 Tab PO DAILY Vitals/I & O Vital Sign - Last 24 Hours 04/04/17 04/04/17 04/04/17 04/04/17 18:05 19:00 19:41 19:41 Temp 96.6 96.6 Pulse 96 Resp 22 B/P (MAP) 98/49 (65) Pulse Ox 92 98 O2 Delivery BiPAP/CPAP Bi-pap O2 Flow Rate 5.0 3.0 04/04/17 04/04/17 04/05/17 04/05/17 22:53 23:34 01:57 03:00 Temp 98.2 98.2 Pulse 100 83 Resp 22 B/P (MAP) 86/51 (63) 112/59 (76) Pulse Ox 99 100 98 O2 Delivery BiPAP/CPAP BiPAP/CPAP Nasal Cannula O2 Flow Rate 5.0 04/05/17 04/05/17 04/05/17 04/05/17 07:00 07:01 08:00 08:00 Temp 97.9 97.9 Pulse 87 Resp 24 B/P (MAP) 106/52 (70) Pulse Ox 96 98 O2 Delivery BiPAP/CPAP BiPAP/CPAP Bi-pap O2 Flow Rate 3.0 04/05/17 04/05/17 04/05/17 04/05/17 09:00 11:00 11:00 11:00 Temp 98.5 98.5 Pulse 97 97 Resp 22 B/P (MAP) 94/51 103/32 (55) 95/41 (59) 91/51 (64) Pulse Ox 94 O2 Delivery BiPAP/CPAP 04/05/17 04/05/17 13:53 14:53 Resp 24 24 Pulse Ox 94 98 O2 Delivery Nasal Cannula O2 Flow Rate 5.0 5.0 Intake and Output 04/04/17 04/04/17 04/05/17 15:00 23:00 07:00 Intake Total 1000.57 ml 868 ml Output Total 650 ml 650 ml 950 ml Balance -650 ml 350.57 ml -82 ml DANNY MEZA MD Apr 05, 2017 17:38
[2017-04-05 19:00] VITALS: BP 87/57
[2017-04-05] MEDS: INSULIN DETEMIR 300 UNITS/3 ML INSULN.PEN. SQ SCH (20:54)
[2017-04-05] MEDS ORDERED: DEXTROSE 70% IV SCH ×10 (22:00)
[2017-04-05] MEDS ORDERED: TOTAL PARENTERAL NUTRITION IV SCH ×10 (22:00)
[2017-04-05] MEDS ORDERED: [UNRECOGNIZED DRUG - OTHER] IV SCH ×10 (22:00)
[2017-04-05] MEDS ORDERED: AMINO ACIDS IV SCH ×10 (22:00)
[2017-04-05 23:00] VITALS: BP 94/55
[2017-04-06] VITALS (13 sets, daily range): BP systolic 92–125; BP diastolic 52–78
[2017-04-06] MEDS: HYDROcodone/APAP 7.5/325MG 1 TAB TABLET PO PRN ×3 (03:22→23:42)
[2017-04-06 06:50] LABS: MAGNESIUM 1.9 mg/dL (1.8-2.4); PHOSPHORUS 3.5 mg/dL (2.6-4.7)
--- NOTE | 2017-04-06 08:02 | PDOC ---
Infectious Disease Note Subjective Subjective pt remains on bipap,says feels ok Denies f/c/n/v/d//CP/abdominal pain Denies muscle aches ROS ROS as above otherwise neg Vital Sign Vital Signs Vital Signs Date Time Temp Pulse Resp B/P (MAP) Pulse Ox O2 Delivery O2 Flow Rate FiO2 04/06/17 05:43 100 BiPAP/CPAP 04/06/17 04:22 20 5.0 04/06/17 03:31 97.8 105 112/57 (75) 97.8 Physical Exam PHYSICAL EXAM GENERAL: on bipap,alert awake,comfortable HEENT: anicteric NECK: Supple LUNGS: dec bs at bases HEART: S1S2, ABD: dressing intact, dry, ostomy with green liquid stool EXT:trace edema SCRAP PICKER: Alert, oriented x 3, no focal neurologic deficit SKIN: No gen rash IV: ok Labs Lab Laboratory Tests Test 04/05/17 09:21 04/05/17 11:38 04/05/17 16:15 04/05/17 20:00 Glucose (Fingerstick) 233 mg/dL (70-99) 225 mg/dL (70-99) 243 mg/dL (70-99) 219 mg/dL (70-99) Test 04/06/17 05:40 Sodium Level 136 mmol/L (136-145) Potassium Level 4.3 mmol/L (3.5-5.1) Chloride Level 102 mmol/L (98-107) Carbon Dioxide Level 29 mmol/L (21-32) Anion Gap 5 (6-14) Blood Urea Nitrogen 13 mg/dL (7-20) Creatinine 0.6 mg/dL (0.6-1.0) Estimated GFR (Cockcroft-Gault) 98.5 Glucose Level 163 mg/dL (70-99) Calcium Level 8.2 mg/dL (8.5-10.1) Phosphorus Level 3.5 mg/dL (2.6-4.7) Magnesium Level 1.9 mg/dL (1.8-2.4) Micro RUN DATE: 03/16/17 PAGE 1 RUN TIME: 0736 [facility] [address] [place] [address] M.D., Applications System Analyst PATIENT: SAFIA MIRANDA ACCT: [id number] LOC: [address] [place] [address] U : [id number] AGE/SX: 71/F ROOM: 400 REG : 03/09/[address]: MILENA MCMILLAN MD : 1945 BED: 1 DIS : STATUS: ADM IN TLOC: SPEC #: [id number] TIFFANIE: 03/12/17 STATUS: COMP REQ #: [id number] RECD: 03/12/[address]: CRISPIN HEREDIA MD SOURCE: ABDOMEN ENTR: 03/12/[address] [facility] [address]: SANDRA RODNEY MD SPDESC: MILENA CASTELLANO MD ORDERED: ANAER-AERO CULT Procedure Result ANAEROBIC-AEROBIC CULTURE Final Final report ANAEROBIC RES 1 Final Comment No anaerobic growth in 72 hours. AEROBIC CULT Final Final report AEROBIC RES 1 Final Klebsiella pneumoniae Moderate growth AEROBIC RES 2 Final Yeast Moderate growth Request for further identification must be made within 1 week. AEROBIC RES 3 Final Comment Vancomycin-resistant Enterococcus (Enterococcus faecium) Heavy growth AEROBIC RES 4 Final Comment Pseudomonas aeruginosa Moderate growth CONTINUED ON NEXT PAGE RUN DATE: 03/16/17 PAGE 2 RUN TIME: 735 [facility] [address] [place] [address] M.D., Applications System Analyst SPEC: [id number] PATIENT: EDMUND MIRANDAINE Jerry [id number] ( Continued) Procedure Result ANTIMICROBIAL SUSCEPTIBILITY Final Comment S = Susceptible; I = Intermediate; R = Resistant P = Positive; N = Negative MICS are expressed in micrograms per mL Antibiotic RSLT#1 RSLT#2 RSLT#3 RSLT#4 Amikacin S Amoxicillin/Clavulanic Acid S Ampicillin R Cefepime S S Ceftazidime S Ceftriaxone S Cefuroxime I Ciprofloxacin S S Ertapenem S Gentamicin S S Imipenem S S Levofloxacin S S Linezolid S Meropenem S Penicillin R Piperacillin R S Quinupristin/Dalfopristin S Tetracycline S Ticarcillin R Tobramycin S S Trimethoprim/Sulfa S Vancomycin R Performed at: [facility] [employer] [id number] Restrooms Or Lounges Maid: Ashia Rogers MD, Phone: [phone] END OF REPORT Objective Assessment Intraabdominal abscess Status post laparoscopic converted to open exploration for extensive lysis of adhesion, removal of old mesh, subtotal colectomy, small bowel resection and incisional hernia repair. 03/14/2017 Now with dehiscence and fluid collection per CT CT abdomen 04/05 Impression: 1. Small bilateral pleural effusions with passive atelectasis of the adjacent lung parenchyma. Underlying pneumonia not ruled out. 2. Extensive postoperative changes in the abdomen with a loculated fluid collection in the right lower quadrant which may represent a patulous loop of bowel or fluid collection/abscess from anastomotic dehiscence. Oral contrast has not traversed this segment of bowel at the time of scanning limiting evaluation. Follow-up CT abdomen and pelvis is recommended to evaluate for interval change in this collection. 3. Anterior midline abdominal wall open surgical wound with small amount of fluid collection along the inferior aspect. Abdominal abscess s/p drain c/s + Klebsiella ( R to Zosyn ,Cipro/Levo S) and enterococcus amp resistant,VRE and PSAE ( R to ticarcillin only otherwise sensitive, Cipro/Levo S) (yeast) Hypotension on dopamine 5 mcg/hr [id number] respiratory failure, status post surgery, now on bipap, improving slowly pleural effusions CXR slight improvement DM HTN thrombocytopenia resolved anemia Plan Plan of Care Pt continues to have drainage from inferior aspect of the abdominal incision CT 04/05 abn, shows loculated fluid collection. surgery following Cont Fluconazole and dapto,levaquin (changed from meropenem on 03/30 for possible B lactam induced thrombocytopenia) weekly cpk will check cbc,cmp,cpk today continue supportive care HUMAIRA RODNEY MD Apr 06, 2017 08:02
--- NOTE | 2017-04-06 08:13 | PDOC ---
SURGICAL PROGRESS NOTE Subjective Pt denies new c/o, eladio some PO Vital Signs Vital Signs Date Time Temp Pulse Resp B/P (MAP) Pulse Ox O2 Delivery O2 Flow Rate FiO2 04/06/17 05:43 100 BiPAP/CPAP 04/06/17 04:22 20 5.0 04/06/17 03:31 97.8 105 112/57 (75) 97.8 I&O Intake and Output 04/06/17 07:00 Intake Total 900 ml Output Total 1490 ml Balance -590 ml Intake Oral 900 ml Output Urine Total 1250 ml Stool Total 240 ml PATIENT HAS A HOPPER: Yes (accurate i and os) General: Alert, Cooperative, No acute distress Abdomen: Soft, No tenderness, Other (ostomy viable and functional, dressing intact) Labs Laboratory Tests Test 04/04/17 20:47 04/05/17 03:45 04/05/17 09:21 04/05/17 11:38 Glucose (Fingerstick) 244 mg/dL (70-99) 233 mg/dL (70-99) 225 mg/dL (70-99) Sodium Level 138 mmol/L (136-145) Potassium Level 3.9 mmol/L (3.5-5.1) Chloride Level 103 mmol/L (98-107) Carbon Dioxide Level 30 mmol/L (21-32) Anion Gap 5 (6-14) Blood Urea Nitrogen 16 mg/dL (7-20) Creatinine 0.6 mg/dL (0.6-1.0) Estimated GFR (Cockcroft-Gault) 98.5 Glucose Level 218 mg/dL (70-99) Calcium Level 8.1 mg/dL (8.5-10.1) Phosphorus Level 3.4 mg/dL (2.6-4.7) Magnesium Level 1.7 mg/dL (1.8-2.4) Test 04/05/17 16:15 04/05/17 20:00 04/06/17 05:40 Glucose (Fingerstick) 243 mg/dL (70-99) 219 mg/dL (70-99) Sodium Level 136 mmol/L (136-145) Potassium Level 4.3 mmol/L (3.5-5.1) Chloride Level 102 mmol/L (98-107) Carbon Dioxide Level 29 mmol/L (21-32) Anion Gap 5 (6-14) Blood Urea Nitrogen 13 mg/dL (7-20) Creatinine 0.6 mg/dL (0.6-1.0) Estimated GFR (Cockcroft-Gault) 98.5 Glucose Level 163 mg/dL (70-99) Calcium Level 8.2 mg/dL (8.5-10.1) Phosphorus Level 3.5 mg/dL (2.6-4.7) Magnesium Level 1.9 mg/dL (1.8-2.4) Laboratory Tests Test 04/05/17 09:21 04/05/17 11:38 04/05/17 16:15 04/05/17 20:00 Glucose (Fingerstick) 233 mg/dL (70-99) 225 mg/dL (70-99) 243 mg/dL (70-99) 219 mg/dL (70-99) Test 04/06/17 05:40 Sodium Level 136 mmol/L (136-145) Potassium Level 4.3 mmol/L (3.5-5.1) Chloride Level 102 mmol/L (98-107) Carbon Dioxide Level 29 mmol/L (21-32) Anion Gap 5 (6-14) Blood Urea Nitrogen 13 mg/dL (7-20) Creatinine 0.6 mg/dL (0.6-1.0) Estimated GFR (Cockcroft-Gault) 98.5 Glucose Level 163 mg/dL (70-99) Calcium Level 8.2 mg/dL (8.5-10.1) Phosphorus Level 3.5 mg/dL (2.6-4.7) Magnesium Level 1.9 mg/dL (1.8-2.4) Problem List Problems Medical Problems: (1) Abdominal abscess Status: Acute (2) Abdominal pain Status: Acute Assessment/Plan s/p xlap CT results noted. Pt has proximal diversion of all anastomosis. Will ask IR to evaluate for possible drain placement, as pt at high risk for abscess, given infection found at time of surgery. Problems: LI HAMMOND MD Apr 06, 2017 08:13
[2017-04-06 08:38] LABS: BASO % 0 % (0-3); EOS % 0 % (0-3); HEMATOCRIT 23.7 % (36.0-47.0); HEMOGLOBIN 7.7 g/dL (12.0-15.5); LYMPH # 1.1 x10^3/uL (1.0-4.8); LYMPH % 10 % (24-48); MEAN CORPUSCULAR HEMOGLOBIN 28 pg (25-35); MEAN CORPUSCULAR HGB CONC 33 g/dL (31-37); MEAN CORPUSCULAR VOLUME 87 fL (79-100); MONO % 6 % (0-9); NEUT % 84 % (31-73); PLATELET COUNT 373 x10^3/uL (140-400); RED BLOOD COUNT 2.71 x10^6/uL (3.50-5.40); RED CELL DISTRIBUTION WIDTH 17.7 % (11.5-14.5); WHITE BLOOD COUNT 10.9 x10^3/uL (4.0-11.0)
[2017-04-06 08:50] LABS: ALBUMIN 0.9 g/dL (3.4-5.0); ALBUMIN/GLOBULIN RATIO 0.2 (1.0-1.7); CREATININE 0.6 mg/dL (0.6-1.0); GFR 98.5; TOTAL BILIRUBIN 0.4 mg/dL (0.2-1.0); TOTAL PROTEIN 4.6 g/dL (6.4-8.2)
[2017-04-06] MEDS: LORazepam 0.5 MG TABLET PO SCH ×2 (09:00→23:42)
[2017-04-06] MEDS: ASPIRIN CHEWABLE 81 MG TABLET. PO SCH (09:00)
[2017-04-06] MEDS: FERROUS SULFATE 325 MG TABLET. PO SCH (09:00)
[2017-04-06] MEDS: METOPROLOL SUCC 24HR ER 25 MG TAB.ER.24H. PO SCH (09:00)
--- NOTE | 2017-04-06 09:20 | PDOC ---
PROGRESS NOTES Subjective Subjective HPI - f/u of Thrombocytopenia. ROS - has dyspnea Objective Objective Vital Signs Date Time Temp Pulse Resp B/P (MAP) Pulse Ox O2 Delivery O2 Flow Rate FiO2 04/06/17 08:13 98 BiPAP/CPAP 04/06/17 07:00 98.4 84 32 102/56 (71) 5.0 98.4 Intake and Output 04/06/17 07:00 Intake Total 900 ml Output Total 1490 ml Balance -590 ml Intake Oral 900 ml Output Urine Total 1250 ml Stool Total 240 ml Physical Exam General: Alert, Oriented X3, mild distress Neuro: Normal speech Psych/Mental Status: Mental status NL Assessment Assessment Problems Medical Problems: (1) Abdominal abscess Status: Acute (2) Abdominal pain Status: Acute A/P: 1. Thrombocytopenia. Improved. Plt count 156. 2. Anemia. Most likely multifactorial. Iron studies are suggestive of anemia of chronic disease. /B12 normal. Hb 8.4, monitor prn 3. Abscess. Management as per primary/surgery 4. Status post laparoscopic converted to open exploration for extensive lysis of adhesion, removal of old mesh, subtotal colectomy, small bowel resection and incisional hernia repair. 5. [id number]-[id number] respiratory failure, expected status post surgical intervention. Persistent dyspnea/ BIPAP - appreciate pulm f/u Comment Review of Relevant I have reviewed the following items chito (where applicable) has been applied. Labs Laboratory Tests Test 04/04/17 20:47 04/05/17 03:45 04/05/17 09:21 04/05/17 11:38 Glucose (Fingerstick) 244 mg/dL (70-99) 233 mg/dL (70-99) 225 mg/dL (70-99) Sodium Level 138 mmol/L (136-145) Potassium Level 3.9 mmol/L (3.5-5.1) Chloride Level 103 mmol/L (98-107) Carbon Dioxide Level 30 mmol/L (21-32) Anion Gap 5 (6-14) Blood Urea Nitrogen 16 mg/dL (7-20) Creatinine 0.6 mg/dL (0.6-1.0) Estimated GFR (Cockcroft-Gault) 98.5 Glucose Level 218 mg/dL (70-99) Calcium Level 8.1 mg/dL (8.5-10.1) Phosphorus Level 3.4 mg/dL (2.6-4.7) Magnesium Level 1.7 mg/dL (1.8-2.4) Test 04/05/17 16:15 04/05/17 20:00 04/06/17 05:40 04/06/17 08:09 Glucose (Fingerstick) 243 mg/dL (70-99) 219 mg/dL (70-99) 156 mg/dL (70-99) White Blood Count 10.9 x10^3/uL (4.0-11.0) Red Blood Count 2.71 x10^6/uL (3.50-5.40) Hemoglobin 7.7 g/dL (12.0-15.5) Hematocrit 23.7 % (36.0-47.0) Mean Corpuscular Volume 87 fL (79-100) Mean Corpuscular Hemoglobin 28 pg (25-35) Mean Corpuscular Hemoglobin Concent 33 g/dL (31-37) Red Cell Distribution Width 17.7 % (11.5-14.5) Platelet Count 373 x10^3/uL (140-400) Neutrophils (%) (Auto) 84 % (31-73) Lymphocytes (%) (Auto) 10 % (24-48) Monocytes (%) (Auto) 6 % (0-9) Eosinophils (%) (Auto) 0 % (0-3) Basophils (%) (Auto) 0 % (0-3) Neutrophils # (Auto) 9.1 x10^3uL (1.8-7.7) Lymphocytes # (Auto) 1.1 x10^3/uL (1.0-4.8) Monocytes # (Auto) 0.6 x10^3/uL (0.0-1.1) Eosinophils # (Auto) 0.0 x10^3/uL (0.0-0.7) Basophils # (Auto) 0.0 x10^3/uL (0.0-0.2) Sodium Level 137 mmol/L (136-145) Potassium Level 4.4 mmol/L (3.5-5.1) Chloride Level 102 mmol/L (98-107) Carbon Dioxide Level 27 mmol/L (21-32) Anion Gap 8 (6-14) Blood Urea Nitrogen 12 mg/dL (7-20) Creatinine 0.6 mg/dL (0.6-1.0) Estimated GFR (Cockcroft-Gault) 98.5 BUN/Creatinine Ratio 20 (6-20) Glucose Level 161 mg/dL (70-99) Calcium Level 8.3 mg/dL (8.5-10.1) Phosphorus Level 3.5 mg/dL (2.6-4.7) Magnesium Level 1.9 mg/dL (1.8-2.4) Total Bilirubin 0.4 mg/dL (0.2-1.0) Aspartate Amino Transf (AST/SGOT) 23 U/L (15-37) Alanine Aminotransferase (ALT/SGPT) 14 U/L (14-59) Alkaline Phosphatase 111 U/L (46-116) Creatine Kinase 209 U/L (26-192) Total Protein 4.6 g/dL (6.4-8.2) Albumin 0.9 g/dL (3.4-5.0) Albumin/Globulin Ratio 0.2 (1.0-1.7) Laboratory Tests Test 04/05/17 09:21 04/05/17 11:38 04/05/17 16:15 04/05/17 20:00 Glucose (Fingerstick) 233 mg/dL (70-99) 225 mg/dL (70-99) 243 mg/dL (70-99) 219 mg/dL (70-99) Test 04/06/17 05:40 04/06/17 08:09 White Blood Count 10.9 x10^3/uL (4.0-11.0) Red Blood Count 2.71 x10^6/uL (3.50-5.40) Hemoglobin 7.7 g/dL (12.0-15.5) Hematocrit 23.7 % (36.0-47.0) Mean Corpuscular Volume 87 fL (79-100) Mean Corpuscular Hemoglobin 28 pg (25-35) Mean Corpuscular Hemoglobin Concent 33 g/dL (31-37) Red Cell Distribution Width 17.7 % (11.5-14.5) Platelet Count 373 x10^3/uL (140-400) Neutrophils (%) (Auto) 84 % (31-73) Lymphocytes (%) (Auto) 10 % (24-48) Monocytes (%) (Auto) 6 % (0-9) Eosinophils (%) (Auto) 0 % (0-3) Basophils (%) (Auto) 0 % (0-3) Neutrophils # (Auto) 9.1 x10^3uL (1.8-7.7) Lymphocytes # (Auto) 1.1 x10^3/uL (1.0-4.8) Monocytes # (Auto) 0.6 x10^3/uL (0.0-1.1) Eosinophils # (Auto) 0.0 x10^3/uL (0.0-0.7) Basophils # (Auto) 0.0 x10^3/uL (0.0-0.2) Sodium Level 137 mmol/L (136-145) Potassium Level 4.4 mmol/L (3.5-5.1) Chloride Level 102 mmol/L (98-107) Carbon Dioxide Level 27 mmol/L (21-32) Anion Gap 8 (6-14) Blood Urea Nitrogen 12 mg/dL (7-20) Creatinine 0.6 mg/dL (0.6-1.0) Estimated GFR (Cockcroft-Gault) 98.5 BUN/Creatinine Ratio 20 (6-20) Glucose Level 161 mg/dL (70-99) Calcium Level 8.3 mg/dL (8.5-10.1) Phosphorus Level 3.5 mg/dL (2.6-4.7) Magnesium Level 1.9 mg/dL (1.8-2.4) Total Bilirubin 0.4 mg/dL (0.2-1.0) Aspartate Amino Transf (AST/SGOT) 23 U/L (15-37) Alanine Aminotransferase (ALT/SGPT) 14 U/L (14-59) Alkaline Phosphatase 111 U/L (46-116) Creatine Kinase 209 U/L (26-192) Total Protein 4.6 g/dL (6.4-8.2) Albumin 0.9 g/dL (3.4-5.0) Albumin/Globulin Ratio 0.2 (1.0-1.7) Glucose (Fingerstick) 156 mg/dL (70-99) Microbiology 03/09/17 Blood Culture - Final, Complete NO GROWTH AFTER 5 DAYS 03/09/17 Urine Culture - Final, Complete 03/09/17 Urine Culture Result 1 (KULDEEP) - Final, Complete 03/12/17 Fungal Culture - Final, Complete 03/12/17 Fungal Culture Result 1 - Final, Complete Medications Current Medications Ondansetron HCl (Zofran) 4 mg 1X ONCE IV Last administered on 03/09/17 08:30 ; Start 03/09/17 at 08:15; Stop 03/09/17 at 08:16; Status DC Iohexol (Omnipaque 300 Mg/ml) 75 ml 1X ONCE IV Last administered on 03/09/17 08:50; Start 03/09/17 at 08:45; Stop 03/09/17 at 08:46; Status DC Info (Do NOT chart on this entry -- for MONITORING) 1 each PRN DAILY PRN MC SEE COMMENTS; Start 03/09/17 at 08:45; Stop 03/11/17 at 08:44; Status DC Ceftriaxone Sodium 50 ml @ 100 mls/hr 1X ONCE IV ; Start 03/09/17 at 09:30; Stop 03/09/17 at 09:55; Status DC Sodium Chloride 1,000 ml @ 1,000 mls/hr 1X ONCE IV Last administered on 09:55; Start 03/09/17 at 10:00; Stop 03/09/17 at 10:59; Status DC Ondansetron HCl (Zofran) 4 mg PRN Q8HRS PRN IV NAUSEA/VOMITING; Start 03/09/17 at 10:30; Stop 03/10/17 at 10:29; Status DC Meropenem 500 mg/ Sodium Chloride 50 ml @ 100 mls/hr Q8HRS IV Last administered on 03/16/17 06:09; Start 03/09/17 at 13:00; Stop 03/16/17 at 12: 59; Status DC Acetaminophen (Tylenol) 650 mg PRN QID PRN PO MILD PAIN / TEMP Last administered on 03/30/17 17:43; Start 03/09/17 at 20:30 Aspirin (Children'S Aspirin) 81 mg DAILY PO Last administered on 04/05/17 10: 06; Start 03/10/17 at 15:00 Clopidogrel Bisulfate (Plavix) 75 mg DAILY PO Last administered on 03/19/17 10:00; Start 03/10/17 at 15:00; Stop 03/22/17 at 09:10; Status DC Ferrous Sulfate (Feosol) 325 mg DAILY PO Last administered on 04/05/17 10:06 ; Start 03/10/17 at 15:00 Metoprolol Tartrate (Lopressor) 12.5 mg BID PO Last administered on 03/10/17 16:01; Start 03/10/17 at 15:00; Stop 03/10/17 at 21:01; Status DC Diclofenac Sodium (Voltaren) 75 mg DAILY PO Last administered on 03/23/17 09: 23; Start 03/10/17 at 14:30; Stop 03/29/17 at 10:50; Status DC Famotidine (Pepcid) 20 mg QHS PO Last administered on 03/24/17 21:20; Start 03/10/17 at 21:00; Stop 03/26/17 at 09:35; Status DC Glimepiride (Amaryl) 1 mg DAILY PO Last administered on 03/13/17 09:25; Start 03/11/17 at 15:00; Stop 03/13/17 at 17:02; Status DC Sodium Chloride 1,000 ml @ 100 mls/hr 1X ONCE IV Last administered on 21:00; Start 03/10/17 at 21:00; Stop 03/11/17 at 06:59; Status DC Lidocaine/Sodium Bicarbonate (Buffered Lidocaine 1%) 20 ml STK-MED ONCE IJ ; Start 03/12/17 at 13:05; Stop 03/12/17 at 13:06; Status DC Fentanyl Citrate (Fentanyl 2ml Vial) 100 mcg STK-MED ONCE .ROUTE ; Start at 13:20; Stop 03/12/17 at 13:21; Status DC Midazolam HCl (Versed) 2 mg STK-MED ONCE .ROUTE ; Start 03/12/17 at 13:20; Stop 03/12/17 at 13:21; Status DC Flumazenil (Romazicon) 0.5 mg STK-MED ONCE IV ; Start 03/12/17 at 13:20; Stop 03/12/17 at 13:21; Status DC Naloxone HCl (Narcan) 0.4 mg STK-MED ONCE .ROUTE ; Start 03/12/17 at 13:20; Stop 03/12/17 at 13:21; Status DC Lidocaine/Sodium Bicarbonate (Buffered Lidocaine 1%) 20 ml 1X ONCE IJ Last administered on 03/12/17 13:50; Start 03/12/17 at 13:30; Stop 03/12/17 at 13:33 ; Status DC Midazolam HCl (Versed) 2 mg 1X ONCE IV Last administered on 03/12/17 13:50; Start 03/12/17 at 13:30; Stop 03/12/17 at 13:33; Status DC Fentanyl Citrate (Fentanyl 2ml Vial) 100 mcg 1X ONCE IV Last administered on 03/12/17 13:50; Start 03/12/17 at 13:30; Stop 03/12/17 at 13:33; Status DC Lactobacillus Rhamnosus (Culturelle) 1 cap BID PO Last administered on 21:20; Start 03/12/17 at 21:00; Stop 03/25/17 at 21:06; Status DC Acetaminophen/ Hydrocodone Bitart (Lortab 7.5/325) 1 tab PRN Q6HRS PRN PO MODERATE - SEVERE PAIN Last administered on 04/06/17 03:22; Start 03/12/17 at 18:15 Ondansetron HCl (Zofran) 4 mg PRN Q6HRS PRN IV NAUSEA/VOMITING, 1ST CHOICE Last administered on 03/25/17 04:53; Start 03/13/17 at 09:00 Furosemide (Lasix) 40 mg QODAY PO Last administered on 03/22/17 09:39; Start 03/14/17 at 09:00; Stop 03/26/17 at 09:00; Status DC Glimepiride (Amaryl) 1 mg DAILY08 PO Last administered on 03/22/17 09:40; Start 03/14/17 at 08:00; Stop 03/23/17 at 08:52; Status DC Linezolid (Zyvox) 600 mg BID PO Last administered on 03/24/17 21:20; Start 03/14/17 at 13:15; Stop 03/25/17 at 10:49; Status DC Meropenem (Merrem) 500 mg Q8HRS IVP Last administered on 03/30/17 06:04; Start 03/16/17 at 14:00; Stop 03/30/17 at 07:49; Status DC Iohexol (Omnipaque 240 Mg/ml) 50 ml STK-MED ONCE .ROUTE ; Start 03/19/17 at 13: 11; Stop 03/19/17 at 13:12; Status DC Iohexol (Omnipaque 240 Mg/ml) 10 ml 1X ONCE IJ Last administered on t 14:07; Start 03/19/17 at 14:00; Stop 03/19/17 at 14:01; Status DC Info (Do NOT chart on this entry -- for MONITORING) 1 each PRN DAILY PRN MC SEE COMMENTS; Start 03/19/17 at 14:00; Stop 03/21/17 at 13:59; Status DC Iohexol (Omnipaque 240 Mg/ml) 50 ml STK-MED ONCE .ROUTE ; Start 03/19/17 at 13: 55; Stop 03/19/17 at 13:56; Status DC Fluconazole (Diflucan) 200 mg DAILY PO Last administered on 03/23/17 09:24; Start 03/22/17 at 09:30; Stop 03/25/17 at 10:51; Status DC Metoprolol Succinate (Toprol Xl) 12.5 mg DAILY PO Last administered on 08:57; Start 03/23/17 at 09:00 Glimepiride (Amaryl) 0.5 mg DAILY08 PO ; Start 03/24/17 at 08:00; Stop at 13:05; Status DC Morphine Sulfate 1 mg PRN Q10MIN PRN IV SEVERE PAIN; Start 03/26/17 at 07:00; Stop 03/26/17 at 07:00; Status DC Ringer's Solution 1,000 ml @ 30 mls/hr Q24H IV ; Start 03/26/17 at 07:00; Stop 03/26/17 at 07:00; Status DC Lidocaine HCl (Xylocaine-Mpf 1% Vial) 2 ml PRN 1X PRN ID PRIOR TO IV START; Start 03/26/17 at 07:00; Stop 03/26/17 at 07:00; Status DC Hydromorphone HCl (Dilaudid) 0.5 mg PRN Q10MIN PRN IV SEV PAIN, Second choice; Start 03/26/17 at 07:00; Stop 03/27/17 at 06:59; Status Cancel Prochlorperazine Edisylate (Compazine) 5 mg PACU PRN PRN IV NAUSEA, MRX1 Last administered on 03/25/17 07:45; Start 03/26/17 at 07:00; Stop 03/26/17 at 07 :00; Status DC Morphine Sulfate 1 mg PRN Q10MIN PRN IV SEVERE PAIN; Start 03/24/17 at 07:45; Stop 03/25/17 at 07:44; Status DC Ringer's Solution 1,000 ml @ 30 mls/hr Q24H IV Last administered on 14:15; Start 03/24/17 at 07:32; Stop 03/24/17 at 19:31; Status DC Lidocaine HCl (Xylocaine-Mpf 1% Vial) 2 ml 1X PRN PRN ID IV START; Start 03/24 at 07:45; Stop 03/25/17 at 07:44; Status DC Hydromorphone HCl (Dilaudid) 0.5 mg PRN Q10MIN PRN IV SEV PAIN, Second choice; Start 03/24/17 at 07:45; Stop 03/25/17 at 07:44; Status DC Prochlorperazine Edisylate (Compazine) 5 mg PACU PRN PRN IV NAUSEA, MRX1; Start 03/24/17 at 07:45; Stop 03/25/17 at 07:44; Status DC Bupivacaine HCl/ Epinephrine Bitart (Sensorcain-Mpf Epi 0.5%-[id number]) 30 ml STK -MED ONCE .ROUTE Last administered on 03/24/17 15:56; Start 03/24/17 at 10: 28; Stop 03/24/17 at 10:29; Status DC Neostigmine Methylsulfate (Bloxiverz) 10 mg STK-MED ONCE .ROUTE ; Start at 14:38; Stop 03/24/17 at 14:39; Status DC Rocuronium [place] (Zemuron) 50 mg STK-MED ONCE .ROUTE ; Start 03/24/17 at 14: 38; Stop 03/24/17 at 14:39; Status DC Fentanyl Citrate (Fentanyl 2ml Vial) 100 mcg STK-MED ONCE .ROUTE ; Start at 14:38; Stop 03/24/17 at 14:39; Status DC Phenylephrine HCl 1 mg STK-MED ONCE IV ; Start 03/24/17 at 14:40; Stop at 14:41; Status DC Lidocaine HCl (Lidocaine Pf 2% Vial) 5 ml STK-MED ONCE .ROUTE ; Start 03/24/17 at 14:40; Stop 03/24/17 at 14:41; Status DC Dexamethasone Sodium Phosphate (Decadron) 20 mg STK-MED ONCE .ROUTE ; Start at 14:40; Stop 03/24/17 at 14:41; Status DC Ondansetron HCl (Zofran) 4 mg STK-MED ONCE .ROUTE ; Start 03/24/17 at 14:40; Stop 03/24/17 at 14:41; Status DC Propofol 20 ml @ As Directed STK-MED ONCE IV ; Start 03/24/17 at 14:40; Stop 03/24/17 at 14:41; Status DC Glycopyrrolate (Robinul) 1 mg STK-MED ONCE .ROUTE ; Start 03/24/17 at 15:11; Stop 03/24/17 at 15:12; Status DC Rocuronium [place] (Zemuron) 50 mg STK-MED ONCE .ROUTE ; Start 03/24/17 at 15: 53; Stop 03/24/17 at 15:54; Status DC Fentanyl Citrate (Fentanyl 2ml Vial) 100 mcg STK-MED ONCE .ROUTE ; Start at 16:01; Stop 03/24/17 at 16:02; Status DC Morphine Sulfate 10 mg STK-MED ONCE .ROUTE ; Start 03/24/17 at 16:02; Stop at 16:03; Status DC Albumin Human 500 ml @ As Directed STK-MED ONCE IV ; Start 03/24/17 at 17:03; Stop 03/24/17 at 17:04; Status DC Phenylephrine HCl (Corky-Synephrine Inj) 10 mg STK-MED ONCE .ROUTE ; Start at 17:27; Stop 03/24/17 at 17:28; Status DC Rocuronium [place] (Zemuron) 100 mg STK-MED ONCE .ROUTE ; Start 03/24/17 at 17: 57; Stop 03/24/17 at 17:58; Status DC Enoxaparin Sodium (Lovenox 40mg Syringe) 40 mg Q24H SQ Last administered on 20:51; Start 03/24/17 at 20:45; Stop 03/26/17 at 19:34; Status DC Sodium Chloride (Normal Saline Flush) 3 ml QSHIFT PRN IV AFTER MEDS AND BLOOD DRAWS; Start 03/24/17 at 20:45 Ringer's Solution 1,000 ml @ 100 mls/hr Q10H IV Last administered on 12:32; Start 03/24/17 at 20:43; Stop 03/25/17 at 16:52; Status DC Naloxone HCl (Narcan) 0.4 mg PRN Q2MIN PRN IV SEE INSTRUCTIONS; Start at 20:45 Sodium Chloride 1,000 ml @ 25 mls/hr Q24H IV Last administered on 03/27/17 12:08; Start 03/24/17 at 20:43 Hydromorphone HCl 30 ml @ 0 mls/hr CONT PRN PRN IV PROTOCOL Last administered on 03/24/17 23:16; Start 03/24/17 at 20:45 Prochlorperazine Edisylate (Compazine) 5 mg PRN Q4HRS PRN IV NAUSEA/VOMITING, 2ND CHOICE; Start 03/25/17 at 07:45 Pantoprazole Sodium (PROTONIX VIAL for IV PUSH) 40 mg DAILYAC IVP Last administered on 04/05/17 10:06; Start 03/25/17 at 10:15 Linezolid 300 ml @ 300 mls/hr Q12HR IV Last administered on 03/26/17 20:54; Start 03/25/17 at 11:00; Stop 03/27/17 at 08:05; Status DC Fluconazole/ Sodium Chloride 100 ml @ 100 mls/hr Q24H IV Last administered on 04/05/17 14:17; Start 03/25/17 at 11:00 Dextrose/Lactated Ringer's 1,000 ml @ 75 mls/hr [id number] IV Last administered on 04/03/17 08:54; Start 03/25/17 at 17:00; Stop 04/04/17 at 09:23; Status DC Famotidine (Pepcid Vial) 40 mg QHS IVP Last administered on 03/28/17 21:35; Start 03/25/17 at 21:00; Stop 03/29/17 at 08:02; Status DC Lorazepam (Ativan) 0.5 mg 1X ONCE IV ; Start 03/26/17 at 07:00; Stop at 07:01; Status Cancel Lorazepam (Ativan) 0.5 mg PRN Q8HRS PRN PO ANXIETY / AGITATION; Start at 07:00; Status Cancel Furosemide (Lasix) 40 mg 1X ONCE IVP Last administered on 03/26/17 09:54; Start 03/26/17 at 09:00; Stop 03/26/17 at 09:01; Status DC Furosemide (Lasix) 20 mg DAILY IVP Last administered on 03/30/17 09:29; Start 03/27/17 at 09:00; Stop 03/31/17 at 12:22; Status DC Digoxin (Lanoxin) 250 mcg 1X ONCE IV Last administered on 03/26/17 15:06; Start 03/26/17 at 15:15; Stop 03/26/17 at 15:16; Status DC Iohexol (Omnipaque 300 Mg/ml) 75 ml 1X ONCE IV Last administered on 16:41; Start 03/26/17 at 16:45; Stop 03/26/17 at 16:46; Status DC Info (Do NOT chart on this entry -- for MONITORING) 1 each PRN DAILY PRN MC SEE COMMENTS; Start 03/26/17 at 16:45; Stop 03/28/17 at 16:44; Status DC Norepinephrine Bitartrate 250 ml @ As Directed STK-MED ONCE IV ; Start at 17:42; Stop 03/26/17 at 17:43; Status DC Norepinephrine Bitartrate 250 ml @ 0 mls/hr CONT PRN IV SEE I/O RECORD Last administered on 03/26/17 18:01; Start 03/26/17 at 18:00; Stop 04/04/17 at 09 :57; Status DC Enoxaparin Sodium (Lovenox Per Pharmacy Treatment Dosing) 1 each PRN DAILY PRN MC SEE COMMENTS; Start 03/26/17 at 19:30; Stop 03/28/17 at 12:38; Status DC Enoxaparin Sodium (Lovenox 80mg Syringe) 80 mg Q12HR SQ Last administered on 21:51; Start 03/26/17 at 20:00; Stop 03/28/17 at 15:36; Status DC Daptomycin 460 mg/ Sodium Chloride 50 ml @ 100 mls/hr Q24H IV Last administered on 04/05/17 13:51; Start 03/27/17 at 09:00 Digoxin (Lanoxin) 250 mcg 1X ONCE IV Last administered on 03/27/17 12:09; Start 03/27/17 at 12:00; Stop 03/27/17 at 12:01; Status DC Insulin Detemir (Levemir) 5 units QHS SQ Last administered on 04/04/17 21:30 ; Start 03/27/17 at 21:00; Stop 04/05/17 at 09:34; Status DC Albumin Human 100 ml @ 100 mls/hr Q8H IV Last administered on 03/29/17 00:42 ; Start 03/28/17 at 09:00; Stop 03/29/17 at 01:59; Status DC Lorazepam (Ativan) 1 mg PRN Q6HRS PRN PO ANXIETY / AGITATION Last administered on 03/30/17 17:43; Start 03/28/17 at 16:00 Iohexol (Omnipaque 300 Mg/ml) 75 ml 1X ONCE IV Last administered on 16:00; Start 03/28/17 at 16:00; Stop 03/28/17 at 16:02; Status DC Info (Do NOT chart on this entry -- for MONITORING) 1 each PRN DAILY PRN MC SEE COMMENTS; Start 03/28/17 at 16:15; Stop 03/30/17 at 16:14; Status DC Fentanyl Citrate (Fentanyl 2ml Vial) 50 mcg PRN Q4HRS PRN IV PAIN Last administered on 04/01/17 08:14; Start 03/29/17 at 09:45 Ciprofloxacin/ Dextrose 200 ml @ 200 mls/hr Q12HR IV Last administered on 08:58; Start 03/30/17 at 09:00; Stop 04/04/17 at 10:45; Status DC Lorazepam (Ativan) 0.5 mg Q12HR PO Last administered on 04/05/17 20:54; Start 03/30/17 at 21:00 Dopamine HCl/ Dextrose 250 ml @ 15.155 mls/ hr CONT PRN IV SEE I/O RECORD Last administered on 04/05/17 20:53; Start 03/31/17 at 13:00 Info 1 each PRN DAILY PRN MC SEE COMMENTS Last administered on 04/05/17 13:00 ; Start 04/03/17 at 12:15 Sodium Chloride 90 meq/Potassium Chloride 50 meq/ Potassium Phosphate 20.4 mmol/ Magnesium Sulfate 10 meq/ Calcium Gluconate 10 meq/ Multivitamins 10 ml/Chromium / Copper/Manganese/ Seleni/Zn 1 ml/ Total Parenteral Nutrition/Amino Acids/ Dextrose/ Fat Emulsion Intravenous 1,512 ml @ 63 mls/hr TPN CONT IV Last administered on 04/03/17 21:38; Start 04/03/17 at 22:00; Stop 04/04/17 at 21 :59; Status DC Levofloxacin/ Dextrose 100 ml @ 100 mls/hr Q24H IV Last administered on 20:55; Start 04/04/17 at 21:00 Furosemide (Lasix) 40 mg DAILY IVP Last administered on 04/04/17 12:08; Start 04/04/17 at 12:00 Sodium Chloride 90 meq/Potassium Chloride 50 meq/ Potassium Phosphate 20.4 mmol/ Magnesium Sulfate 16 meq/ Calcium Gluconate 10 meq/ Multivitamins 10 ml/Chromium / Copper/Manganese/ Seleni/Zn 1 ml/ Total Parenteral Nutrition/Amino Acids/ Dextrose/ Fat Emulsion Intravenous 1,512 ml @ 63 mls/hr TPN CONT IV Last administered on 04/04/17 21:16; Start 04/04/17 at 22:00; Stop 04/05/17 at 21 :59; Status DC Insulin Detemir (Levemir) 20 units QHS SQ Last administered on 04/05/17 20:54 ; Start 04/05/17 at 21:00 Insulin Detemir (Levemir) 10 units 1X ONCE SQ Last administered on 04/05/17 14:12; Start 04/05/17 at 09:45; Stop 04/05/17 at 09:46; Status DC Sodium Chloride 90 meq/Potassium Chloride 50 meq/ Potassium Phosphate 20.4 mmol/ Magnesium Sulfate 24 meq/ Calcium Gluconate 10 meq/ Multivitamins 10 ml/Chromium / Copper/Manganese/ Seleni/Zn 1 ml/ Total Parenteral Nutrition/Amino Acids/ Dextrose/ Fat Emulsion Intravenous 1,512 ml @ 63 mls/hr TPN CONT IV Last administered on 04/05/17t 20:55; Start 04/05/17 at 22:00; Stop 04/06/17 at 21: 59 Iohexol (Omnipaque 300 Mg/ml) 75 ml 1X ONCE IV ; Start 04/05/17 at 13:00; Stop 04/05/17 at 13:01; Status DC Iohexol (Omnipaque 240 Mg/ml) 30 ml 1X ONCE PO ; Start 04/05/17 at 13:00; Stop 04/05/17 at 13:01; Status DC Info (Do NOT chart on this entry -- for MONITORING) 1 each PRN DAILY PRN MC SEE COMMENTS; Start 04/05/17 at 13:00; Stop 04/07/17 at 12:59 Active Scripts Active Reported Flagyl (Metronidazole) 500 Mg Tablet 1 Tab PO BID Cefpodoxime Proxetil 200 Mg Tablet 1 Tab PO BID Ferrous Sulfate 325 Mg Tablet 1 Tab PO DAILY Lasix (Furosemide) 40 Mg Tablet 40 Mg PO QODAY Potassium Chloride 10 Meq Capsule.er 10 Meq PO QODAY Metoprolol Tartrate 25 Mg Tablet 12.5 Mg PO BID Atorvastatin Calcium 40 Mg Tablet 40 Mg PO HS Clopidogrel (Clopidogrel Bisulfate) 75 Mg Tablet 1 Tab PO DAILY Diclofenac Sodium 75 Mg Tablet.dr 75 Mg PO DAILY Ranitidine Hcl 150 Mg Tablet 1 Tab PO BID Aspirin 81 Mg Tab.chew 1 Tab PO DAILY Vitals/I & O Vital Sign - Last 24 Hours 04/05/17 04/05/17 04/05/17 04/05/17 11:00 11:00 11:00 13:53 Temp 98.5 98.5 Pulse 97 Resp 22 24 B/P (MAP) 103/32 (55) 95/41 (59) 91/51 (64) Pulse Ox 94 94 O2 Delivery BiPAP/CPAP O2 Flow Rate 5.0 04/05/17 04/05/17 04/05/17 04/05/17 15:00 19:00 19:35 20:00 Temp 98.1 98.1 98.1 98.1 Pulse 68 100 Resp 22 28 B/P (MAP) 113/46 (68) 87/57 (67) Pulse Ox 93 99 O2 Delivery BiPAP/CPAP BiPAP/CPAP Bi-pap O2 Flow Rate 5.0 5.0 04/05/17 04/05/17 04/06/17 04/06/17 23:00 23:57 01:47 03:22 Temp 98.3 98.3 Pulse 103 Resp 32 24 B/P (MAP) 94/55 (68) Pulse Ox 93 100 100 100 O2 Delivery BiPAP/CPAP BiPAP/CPAP BiPAP/CPAP BiPAP/CPAP O2 Flow Rate 5.0 04/06/17 04/06/17 04/06/17 04/06/17 03:31 04:06 04:22 05:43 Temp 97.8 97.8 Pulse 105 Resp 32 20 B/P (MAP) 112/57 (75) Pulse Ox 100 100 100 O2 Delivery Room Air BiPAP/CPAP BiPAP/CPAP BiPAP/CPAP O2 Flow Rate 5.0 5.0 04/06/17 04/06/17 07:00 08:13 Temp 98.4 98.4 Pulse 84 Resp 32 B/P (MAP) 102/56 (71) Pulse Ox 99 98 O2 Delivery BiPAP/CPAP BiPAP/CPAP O2 Flow Rate 5.0 Intake and Output 04/05/17 04/05/17 04/06/17 15:00 23:00 07:00 Intake Total 150 ml 750 ml 0 ml Output Total 650 ml 840 ml Balance 150 ml 100 ml -840 ml DANNY MEZA MD Apr 06, 2017 09:20
--- NOTE | 2017-04-06 09:30 | PDOC ---
Provider Note Provider Note marian try to wean off dopamine to allow transfer to [facility] when more stable and appropriate, labs ok, glucose better MILENA MCMILLAN MD Apr 06, 2017 09:30
[2017-04-06] MEDS: NORMAL SALINE IV SCH (09:46)
[2017-04-06] MEDS: FUROSEMIDE 40 MG/4 ML VIAL. IVP SCH (09:46)
[2017-04-06] MEDS: DAPTOMYCIN IV SCH (09:46)
[2017-04-06] MEDS: PANTOPRAZOLE IV PUSH 40 MG VIAL. IVP SCH (09:47)
[2017-04-06 09:53] LABS: CALCIUM 8.2 mg/dL (8.5-10.1); POTASSIUM 4.3 mmol/L (3.5-5.1)
--- NOTE | 2017-04-06 11:00 | PDOC1 ---
IR Pre-Procedure H&P H&P Update No significant change from Dr. Mcgregor consult note done 03/30/17. Patient had CT done 04/05/17 which showed possible abscess versus patulous loop of colon. I reviewed the imaging with Dr. Hall, and the risk of drain placement if this truly represents a bowel loop instead of abscess was discussed. Given that the patient is already diverted with a loop ileostomy, it was decided that the benefit of draining an abscess with patient's current clinical condition outweighed the risk of placing a drain into a large bowel loop. If this is truly a bowel loop, drain placement may actually be beneficial in the purpose of decreasing the high risk of subsequent perforation given the friable state of the large bowel and degree of dilation. This risk will be discussed in detail with the patient. MARTINA SHORE MD Apr 06, 2017 11:00
[2017-04-06] MEDS: FLUCONAZOLE 200MG/100ML PREMIX 100 ML IV SCH (11:29)
--- NOTE | 2017-04-06 12:42 | PDOC ---
PULMONARY PROGRESS NOTES Subjective REMAINS ON BIPAP / MORE COMFORTABLE Vitals Vital Signs Date Time Temp Pulse Resp B/P (MAP) Pulse Ox O2 Delivery O2 Flow Rate FiO2 04/06/17 12:02 100 BiPAP/CPAP 04/06/17 11:00 98.2 89 20 119/52 (74) 5.0 98.2 General: Alert, No acute distress Lungs: Other (decrease bs) Cardiovascular: S1, S2 Abdomen: Soft, Other (continues to have drainage from the abdo wound,lower incision site,brownish fluid) Neuro Exam: Alert Extremities: Other (1+edema) Skin: Warm Labs Laboratory Tests Test 04/04/17 20:47 04/05/17 03:45 04/05/17 09:21 04/05/17 11:38 Glucose (Fingerstick) 244 mg/dL (70-99) 233 mg/dL (70-99) 225 mg/dL (70-99) Sodium Level 138 mmol/L (136-145) Potassium Level 3.9 mmol/L (3.5-5.1) Chloride Level 103 mmol/L (98-107) Carbon Dioxide Level 30 mmol/L (21-32) Anion Gap 5 (6-14) Blood Urea Nitrogen 16 mg/dL (7-20) Creatinine 0.6 mg/dL (0.6-1.0) Estimated GFR (Cockcroft-Gault) 98.5 Glucose Level 218 mg/dL (70-99) Calcium Level 8.1 mg/dL (8.5-10.1) Phosphorus Level 3.4 mg/dL (2.6-4.7) Magnesium Level 1.7 mg/dL (1.8-2.4) Test 04/05/17 16:15 04/05/17 20:00 04/06/17 05:40 04/06/17 08:09 Glucose (Fingerstick) 243 mg/dL (70-99) 219 mg/dL (70-99) 156 mg/dL (70-99) White Blood Count 10.9 x10^3/uL (4.0-11.0) Red Blood Count 2.71 x10^6/uL (3.50-5.40) Hemoglobin 7.7 g/dL (12.0-15.5) Hematocrit 23.7 % (36.0-47.0) Mean Corpuscular Volume 87 fL (79-100) Mean Corpuscular Hemoglobin 28 pg (25-35) Mean Corpuscular Hemoglobin Concent 33 g/dL (31-37) Red Cell Distribution Width 17.7 % (11.5-14.5) Platelet Count 373 x10^3/uL (140-400) Neutrophils (%) (Auto) 84 % (31-73) Lymphocytes (%) (Auto) 10 % (24-48) Monocytes (%) (Auto) 6 % (0-9) Eosinophils (%) (Auto) 0 % (0-3) Basophils (%) (Auto) 0 % (0-3) Neutrophils # (Auto) 9.1 x10^3uL (1.8-7.7) Lymphocytes # (Auto) 1.1 x10^3/uL (1.0-4.8) Monocytes # (Auto) 0.6 x10^3/uL (0.0-1.1) Eosinophils # (Auto) 0.0 x10^3/uL (0.0-0.7) Basophils # (Auto) 0.0 x10^3/uL (0.0-0.2) Sodium Level 136 mmol/L (136-145) Potassium Level 4.3 mmol/L (3.5-5.1) Chloride Level 102 mmol/L (98-107) Carbon Dioxide Level 29 mmol/L (21-32) Anion Gap 5 (6-14) Blood Urea Nitrogen 18 mg/dL (7-20) Creatinine 0.6 mg/dL (0.6-1.0) Estimated GFR (Cockcroft-Gault) 98.5 BUN/Creatinine Ratio 30 (6-20) Glucose Level 163 mg/dL (70-99) Calcium Level 8.2 mg/dL (8.5-10.1) Phosphorus Level 3.5 mg/dL (2.6-4.7) Magnesium Level 1.9 mg/dL (1.8-2.4) Total Bilirubin 0.4 mg/dL (0.2-1.0) Aspartate Amino Transf (AST/SGOT) 23 U/L (15-37) Alanine Aminotransferase (ALT/SGPT) 14 U/L (14-59) Alkaline Phosphatase 111 U/L (46-116) Creatine Kinase 209 U/L (26-192) Total Protein 4.6 g/dL (6.4-8.2) Albumin 0.9 g/dL (3.4-5.0) Albumin/Globulin Ratio 0.2 (1.0-1.7) Test 04/06/17 12:01 Glucose (Fingerstick) 142 mg/dL (70-99) Laboratory Tests Test 04/05/17 16:15 04/05/17 20:00 04/06/17 05:40 04/06/17 08:09 Glucose (Fingerstick) 243 mg/dL (70-99) 219 mg/dL (70-99) 156 mg/dL (70-99) White Blood Count 10.9 x10^3/uL (4.0-11.0) Red Blood Count 2.71 x10^6/uL (3.50-5.40) Hemoglobin 7.7 g/dL (12.0-15.5) Hematocrit 23.7 % (36.0-47.0) Mean Corpuscular Volume 87 fL (79-100) Mean Corpuscular Hemoglobin 28 pg (25-35) Mean Corpuscular Hemoglobin Concent 33 g/dL (31-37) Red Cell Distribution Width 17.7 % (11.5-14.5) Platelet Count 373 x10^3/uL (140-400) Neutrophils (%) (Auto) 84 % (31-73) Lymphocytes (%) (Auto) 10 % (24-48) Monocytes (%) (Auto) 6 % (0-9) Eosinophils (%) (Auto) 0 % (0-3) Basophils (%) (Auto) 0 % (0-3) Neutrophils # (Auto) 9.1 x10^3uL (1.8-7.7) Lymphocytes # (Auto) 1.1 x10^3/uL (1.0-4.8) Monocytes # (Auto) 0.6 x10^3/uL (0.0-1.1) Eosinophils # (Auto) 0.0 x10^3/uL (0.0-0.7) Basophils # (Auto) 0.0 x10^3/uL (0.0-0.2) Sodium Level 136 mmol/L (136-145) Potassium Level 4.3 mmol/L (3.5-5.1) Chloride Level 102 mmol/L (98-107) Carbon Dioxide Level 29 mmol/L (21-32) Anion Gap 5 (6-14) Blood Urea Nitrogen 18 mg/dL (7-20) Creatinine 0.6 mg/dL (0.6-1.0) Estimated GFR (Cockcroft-Gault) 98.5 BUN/Creatinine Ratio 30 (6-20) Glucose Level 163 mg/dL (70-99) Calcium Level 8.2 mg/dL (8.5-10.1) Phosphorus Level 3.5 mg/dL (2.6-4.7) Magnesium Level 1.9 mg/dL (1.8-2.4) Total Bilirubin 0.4 mg/dL (0.2-1.0) Aspartate Amino Transf (AST/SGOT) 23 U/L (15-37) Alanine Aminotransferase (ALT/SGPT) 14 U/L (14-59) Alkaline Phosphatase 111 U/L (46-116) Creatine Kinase 209 U/L (26-192) Total Protein 4.6 g/dL (6.4-8.2) Albumin 0.9 g/dL (3.4-5.0) Albumin/Globulin Ratio 0.2 (1.0-1.7) Test 04/06/17 12:01 Glucose (Fingerstick) 142 mg/dL (70-99) Medications Active Scripts Medications Dose Route/Sig Max Daily Dose Days Date Category Flagyl (Metronidazole) 500 Mg Tablet 1 Tab PO BID 03/01/17 Reported Cefpodoxime Proxetil 200 Mg Tablet 1 Tab PO BID 03/01/17 Reported Ferrous Sulfate 325 Mg Tablet 1 Tab PO DAILY 02/23/17 Reported Lasix (Furosemide) 40 Mg Tablet 40 Mg PO QODAY 02/23/17 Reported Potassium Chloride 10 Meq Capsule.er 10 Meq PO QODAY 02/23/17 Reported Metoprolol Tartrate 25 Mg Tablet 12.5 Mg PO BID 01/31/17 Reported Atorvastatin Calcium 40 Mg Tablet 40 Mg PO HS 01/31/17 Reported Clopidogrel (Clopidogrel Bisulfate) 75 Mg Tablet 1 Tab PO DAILY 08/24/15 Reported Diclofenac Sodium 75 Mg Tablet.dr 75 Mg PO DAILY 12/21/14 Reported Ranitidine Hcl 150 Mg Tablet 1 Tab PO BID 12/21/14 Reported Aspirin 81 Mg Tab.chew 1 Tab PO DAILY 04/15/14 Reported Impression . 1. [id number] respiratory failure, expected status post surgical intervention. SUBJECTIVE dyspnea/ Comfortable on BIPAP. suspect due to abdominal process 2. Status post laparoscopic converted to open exploration for extensive lysis of adhesion, removal of old mesh, subtotal colectomy, small bowel resection and incisional hernia repair.Now with brown drainage from wound. entero-cutaneous fistula/ abscess 3. Obesity, body mass index of 35. 4. Leukocytosis. 5. Enterocutaneous fistula. 6. Fever. 7. Abdominal abscess. 8. Ventral hernia, status post repair. 9. Bilateral effusions due to low oncotic pressure/ repeat cxr 04/02 with volume loss bases, no sig. fluid to tap, small effusions on ct 04/05 10. Anxiety disorder Plan . PT REMAINS ON BIPAP/ SOME ANXIETY DISORDER WELL.SUSPECT ABDOMINAL PROCESS CONTRIBUTING TO ONGOING SUBJECTIVE DYSPNEA REPEAT CT ABDOMEN/PELVIS REVIEWED/ SMALL EFFUSIONS, DOES NOT NEED TAP LASIX PRN IMPROVE NUTRITIONAL STATUS/ SEVERE MALNUTRITION VENOUS DOPPLER NEGATIVE/ CT NEGATIVE FOR PE MONITOR PLATELET / MUCH IMPROVED ANXIETY/ ON SCHEDULED ATIVAN ABDOMINAL DRAIN BY IR NERI D/W STACI TURPIN MD Apr 06, 2017 12:42
[2017-04-06 12:53] LABS: HCO3 ABG 27 mmol/L (21-28); PCO2 ABG 38 mmHg (35-46); PH ABG 7.47 (7.35-7.45); PO2 ABG 88 mmHg (65-108); SAT O2 ABG 96 % (92-99)
[2017-04-06 12:56] LABS: FIO2 ABG 35
[2017-04-06] MEDS: TPN PER PHARMACY MC PRN (13:17)
[2017-04-06] MEDS ORDERED: LIDOCAINE 1% / SOD BICARB 8.4% 20 ML VIAL. IJ ONE ×2 (14:28→15:30)
[2017-04-06] MEDS ORDERED: FLUMAZENIL 0.5 MG/5 ML VIAL. IV ONE (14:45)
[2017-04-06] MEDS ORDERED: fentaNYL PF VIAL 100 MCG/2 ML VIAL ONE (14:45)
[2017-04-06] MEDS ORDERED: MIDAZOLAM HCL/PF 2 MG/2 ML VIAL. ONE (14:45)
[2017-04-06] MEDS ORDERED: NALOXONE 0.4 MG/ML VIAL. ONE (14:45)
--- NOTE | 2017-04-06 16:28 | RAD ---
Procedure: CT guided abdominal fluid collection drain placement The procedure, risks, and complications to include bleeding, bowel perforation, and infection were explained to the patient and they understood and wished to proceed. Prolonged discussion regarding the potential that the fluid collection represents a patulous loop of bowel was had with the patient, and she wanted to proceed with the drain placement knowing this risk. Consent form signed. The right abdomen was prepped and draped using maximal sterile technique and one percent Xylocaine was used for local anesthesia. CT scan: CT scan again showed a large collection containing air and fluid in the mid to lower abdomen. Technique: Utilizing a coaxial technique and 18 gauge needle was advanced into the collection using CT guidance. A 0.035 wire was then advanced through the needle. Needle was removed, tract was dilated, and a 12 Faroese pigtail drain was positioned in the fluid collection. 10 mL sample of thick, dark brown fluid was sent to the lab for analysis. The drain was sutured in place. Sterile dressing was applied. Repeat post drain placement CT scan shows no evidence of immediate complication. There is significant decrease in the air component of the collection. The pigtail is appropriately positioned. Sedation: Conscious sedation for 30 minutes. Intravenous Versed and fentanyl were administered. The patient was monitored by pulse oximetry and cardiovascular monitoring equipment and observed by the nurses in attendance. Complications: None Contrast: None. The patient tolerated the procedure well and returned to the floor in stable condition Conclusion: CT guided abdominal air and fluid collection drain 12 Faroese placement. PQRS Compliance Statement: One or more of the following individualized dose reduction techniques were utilized for this examination: 1. Automated exposure control 2. Adjustment of the mA and/or kV according to patient size 3. Use of iterative reconstruction technique
[2017-04-06] MEDS: IV NORMAL SALINE 1000ML BAG 1,000 ML IV SCH (20:43)
[2017-04-06] MEDS: INSULIN DETEMIR 300 UNITS/3 ML INSULN.PEN. SQ SCH (21:47)
[2017-04-06] MEDS ORDERED: TOTAL PARENTERAL NUTRITION IV SCH ×10 (22:00)
[2017-04-06] MEDS ORDERED: DEXTROSE 70% IV SCH ×10 (22:00)
[2017-04-06] MEDS ORDERED: AMINO ACIDS IV SCH ×10 (22:00)
[2017-04-06] MEDS ORDERED: [UNRECOGNIZED DRUG - OTHER] IV SCH ×10 (22:00)
[2017-04-07 03:41] VITALS: BP 114/61
[2017-04-07] MEDS: LORazepam 1 MG TABLET PO PRN (05:43)
[2017-04-07 07:01] LABS: CALCIUM 8.4 mg/dL (8.5-10.1); CREATININE 0.7 mg/dL (0.6-1.0); GFR 82.5; MAGNESIUM 2.2 mg/dL (1.8-2.4); PHOSPHORUS 4.7 mg/dL (2.6-4.7); POTASSIUM 4.4 mmol/L (3.5-5.1)
[2017-04-07 07:31] VITALS: BP 131/75
[2017-04-07] MEDS: HYDROcodone/APAP 7.5/325MG 1 TAB TABLET PO PRN ×3 (08:48→23:50)
[2017-04-07] MEDS: LORazepam 0.5 MG TABLET PO SCH ×2 (08:48→21:15)
[2017-04-07] MEDS: METOPROLOL SUCC 24HR ER 25 MG TAB.ER.24H. PO SCH (08:48)
[2017-04-07] MEDS: ASPIRIN CHEWABLE 81 MG TABLET. PO SCH (08:49)
[2017-04-07] MEDS: FERROUS SULFATE 325 MG TABLET. PO SCH (08:49)
--- NOTE | 2017-04-07 09:13 | PDOC ---
Infectious Disease Note Subjective Subjective Temp off BiPAP C/o anxiety & cough. Denies SOA/CP Diminished appetite, son encouraging her to eat TPN ROS ROS Denies F/C/aches Denies N/V/D/pain Vital Sign Vital Signs Vital Signs Date Time Temp Pulse Resp B/P (MAP) Pulse Ox O2 Delivery O2 Flow Rate FiO2 04/07/17 08:48 103 131/75 04/07/17 08:48 40 97 Nasal Cannula 5.0 04/07/17 07:31 98.6 98.6 Physical Exam PHYSICAL EXAM GENERAL: Propped up in bed, tachypneic HEENT: PERRL, Oral cavity dry LUNGS: + congested CV: S1 and S2 ABD: BS active, soft, NT light palpation. Ostomy + output, distal incision dehiscence, + drainage. : [place] EXT: Trace edema BLE, no cyanosis SKIN: Without rash, warm to touch MANAGER ENTRY: Alert, oriented, following commands RUE-PICC. clean Labs Lab Laboratory Tests Test 04/06/17 12:01 04/06/17 12:40 04/06/17 17:37 04/06/17 20:49 Glucose (Fingerstick) 142 mg/dL (70-99) 146 mg/dL (70-99) 145 mg/dL (70-99) O2 Saturation 96 % (92-99) Arterial Blood pH 7.47 (7.35-7.45) Arterial Blood pCO2 at Patient Temp 38 mmHg (35-46) Arterial Blood pO2 at Patient Temp 88 mmHg (65-108) Arterial Blood HCO3 27 mmol/L (21-28) Arterial Blood Base Excess 3 mmol/L (-3-3) FiO2 35 Test 04/07/17 05:40 04/07/17 08:08 Sodium Level 137 mmol/L (136-145) Potassium Level 4.4 mmol/L (3.5-5.1) Chloride Level 101 mmol/L (98-107) Carbon Dioxide Level 29 mmol/L (21-32) Anion Gap 7 (6-14) Blood Urea Nitrogen 16 mg/dL (7-20) Creatinine 0.7 mg/dL (0.6-1.0) Estimated GFR (Cockcroft-Gault) 82.5 Glucose Level 157 mg/dL (70-99) Calcium Level 8.4 mg/dL (8.5-10.1) Phosphorus Level 4.7 mg/dL (2.6-4.7) Magnesium Level 2.2 mg/dL (1.8-2.4) Glucose (Fingerstick) 155 mg/dL (70-99) CT abdomen and pelvis with contrast, 04/05/2017 Comparison: Previous study from 03/26/2017 Impression: 1. Small bilateral pleural effusions with passive atelectasis of the adjacent lung parenchyma. Underlying pneumonia not ruled out. 2. Extensive postoperative changes in the abdomen with a loculated fluid collection in the right lower quadrant which may represent a patulous loop of bowel or fluid collection/abscess from anastomotic dehiscence. Oral contrast has not traversed this segment of bowel at the time of scanning limiting evaluation. Follow-up CT abdomen and pelvis is recommended to evaluate for interval change in this collection. 3. Anterior midline abdominal wall open surgical wound with small amount of fluid collection along the inferior aspect. Objective Assessment Fever s/p lap converted to open exploration, JAIRO, removal of infected mesh, subtotal colectomy, SBR and hernia repair, 03/24. Now new 10.0 x 5.5 x 18.0 cm fluid collection with air-fluid levels in the right lower quadrant. s/p drain placement, 04/06. cultures pending Wound dehiscence [id number] respiratory failure, s/p surgery, now on BiPAP, improving slowly - pleural effusions CXR slight improvement Leukocytosis - improved Thrombocytopenia, resolved EC fistula Abdominal abscess, measuring 6.4 x 4.9 cm. s/p drain 03/12. Klebsiella ( R to Zosyn, S Cipro/Levo), VRE (R PCN) and PSAE ( R to ticarcillin only otherwise sensitive, S Cipro/Levo) and C tropicalis -h/o Strep anginosis and Bacteroides Ventral hernia DM HTN PCN allergy/amox also - hives and swelling Plan Plan of Care Blood cult times 2 - UA C and S D/c Fluconazole/Levoflox Begin Micafungin/Flagyl/Cefepime Labs in the am Cont Dapto, and Levaquin (changed from meropenem on 03/30 for possible B lactam induced thrombocytopenia) CPK 209 - 04/06. continue to monitor f/u cultures and monitor WBC, temp Supportive care D/w SERAFIN Zhang APRN Apr 07, 2017 09:13 TERRA [place] MD Apr 07, 2017 13:38
--- NOTE | 2017-04-07 09:58 | PDOC ---
PROGRESS NOTES Subjective Subjective pt with bipap mask on, appears fatigued, denies pain Objective Objective Vital Signs Date Time Temp Pulse Resp B/P (MAP) Pulse Ox O2 Delivery O2 Flow Rate FiO2 04/07/17 08:48 103 131/75 04/07/17 08:48 40 97 Nasal Cannula 5.0 04/07/17 07:31 98.6 98.6 Intake and Output 04/07/17 07:00 Intake Total 757 ml Output Total 2325 ml Balance -1568 ml Intake Oral 450 ml IV Total 307 ml Output Urine Total 2225 ml Stool Total 100 ml Physical Exam Physical Exam ileostomy functioning, wounds with drainage, dressings intact Assessment Assessment Problems Medical Problems: (1) Abdominal abscess Status: Acute (2) Abdominal pain Status: Acute Plan Plan of Care supportive care, continue wound care Comment Review of Relevant I have reviewed the following items chito (where applicable) has been applied. Labs Laboratory Tests Test 04/05/17 11:38 04/05/17 16:15 04/05/17 20:00 04/06/17 05:40 Glucose (Fingerstick) 225 mg/dL (70-99) 243 mg/dL (70-99) 219 mg/dL (70-99) White Blood Count 10.9 x10^3/uL (4.0-11.0) Red Blood Count 2.71 x10^6/uL (3.50-5.40) Hemoglobin 7.7 g/dL (12.0-15.5) Hematocrit 23.7 % (36.0-47.0) Mean Corpuscular Volume 87 fL (79-100) Mean Corpuscular Hemoglobin 28 pg (25-35) Mean Corpuscular Hemoglobin Concent 33 g/dL (31-37) Red Cell Distribution Width 17.7 % (11.5-14.5) Platelet Count 373 x10^3/uL (140-400) Neutrophils (%) (Auto) 84 % (31-73) Lymphocytes (%) (Auto) 10 % (24-48) Monocytes (%) (Auto) 6 % (0-9) Eosinophils (%) (Auto) 0 % (0-3) Basophils (%) (Auto) 0 % (0-3) Neutrophils # (Auto) 9.1 x10^3uL (1.8-7.7) Lymphocytes # (Auto) 1.1 x10^3/uL (1.0-4.8) Monocytes # (Auto) 0.6 x10^3/uL (0.0-1.1) Eosinophils # (Auto) 0.0 x10^3/uL (0.0-0.7) Basophils # (Auto) 0.0 x10^3/uL (0.0-0.2) Sodium Level 136 mmol/L (136-145) Potassium Level 4.3 mmol/L (3.5-5.1) Chloride Level 102 mmol/L (98-107) Carbon Dioxide Level 29 mmol/L (21-32) Anion Gap 5 (6-14) Blood Urea Nitrogen 18 mg/dL (7-20) Creatinine 0.6 mg/dL (0.6-1.0) Estimated GFR (Cockcroft-Gault) 98.5 BUN/Creatinine Ratio 30 (6-20) Glucose Level 163 mg/dL (70-99) Calcium Level 8.2 mg/dL (8.5-10.1) Phosphorus Level 3.5 mg/dL (2.6-4.7) Magnesium Level 1.9 mg/dL (1.8-2.4) Total Bilirubin 0.4 mg/dL (0.2-1.0) Aspartate Amino Transf (AST/SGOT) 23 U/L (15-37) Alanine Aminotransferase (ALT/SGPT) 14 U/L (14-59) Alkaline Phosphatase 111 U/L (46-116) Creatine Kinase 209 U/L (26-192) Total Protein 4.6 g/dL (6.4-8.2) Albumin 0.9 g/dL (3.4-5.0) Albumin/Globulin Ratio 0.2 (1.0-1.7) Test 04/06/17 08:09 04/06/17 12:01 04/06/17 12:40 04/06/17 17:37 Glucose (Fingerstick) 156 mg/dL (70-99) 142 mg/dL (70-99) 146 mg/dL (70-99) O2 Saturation 96 % (92-99) Arterial Blood pH 7.47 (7.35-7.45) Arterial Blood pCO2 at Patient Temp 38 mmHg (35-46) Arterial Blood pO2 at Patient Temp 88 mmHg (65-108) Arterial Blood HCO3 27 mmol/L (21-28) Arterial Blood Base Excess 3 mmol/L (-3-3) FiO2 35 Test 04/06/17 20:49 04/07/17 05:40 04/07/17 08:08 Glucose (Fingerstick) 145 mg/dL (70-99) 155 mg/dL (70-99) Sodium Level 137 mmol/L (136-145) Potassium Level 4.4 mmol/L (3.5-5.1) Chloride Level 101 mmol/L (98-107) Carbon Dioxide Level 29 mmol/L (21-32) Anion Gap 7 (6-14) Blood Urea Nitrogen 16 mg/dL (7-20) Creatinine 0.7 mg/dL (0.6-1.0) Estimated GFR (Cockcroft-Gault) 82.5 Glucose Level 157 mg/dL (70-99) Calcium Level 8.4 mg/dL (8.5-10.1) Phosphorus Level 4.7 mg/dL (2.6-4.7) Magnesium Level 2.2 mg/dL (1.8-2.4) Laboratory Tests Test 04/06/17 12:01 04/06/17 12:40 04/06/17 17:37 04/06/17 20:49 Glucose (Fingerstick) 142 mg/dL (70-99) 146 mg/dL (70-99) 145 mg/dL (70-99) O2 Saturation 96 % (92-99) Arterial Blood pH 7.47 (7.35-7.45) Arterial Blood pCO2 at Patient Temp 38 mmHg (35-46) Arterial Blood pO2 at Patient Temp 88 mmHg (65-108) Arterial Blood HCO3 27 mmol/L (21-28) Arterial Blood Base Excess 3 mmol/L (-3-3) FiO2 35 Test 04/07/17 05:40 04/07/17 08:08 Sodium Level 137 mmol/L (136-145) Potassium Level 4.4 mmol/L (3.5-5.1) Chloride Level 101 mmol/L (98-107) Carbon Dioxide Level 29 mmol/L (21-32) Anion Gap 7 (6-14) Blood Urea Nitrogen 16 mg/dL (7-20) Creatinine 0.7 mg/dL (0.6-1.0) Estimated GFR (Cockcroft-Gault) 82.5 Glucose Level 157 mg/dL (70-99) Calcium Level 8.4 mg/dL (8.5-10.1) Phosphorus Level 4.7 mg/dL (2.6-4.7) Magnesium Level 2.2 mg/dL (1.8-2.4) Glucose (Fingerstick) 155 mg/dL (70-99) Microbiology 03/09/17 Blood Culture - Final, Complete NO GROWTH AFTER 5 DAYS 03/09/17 Urine Culture - Final, Complete 03/09/17 Urine Culture Result 1 (KULDEEP) - Final, Complete 03/12/17 Fungal Culture - Final, Complete 03/12/17 Fungal Culture Result 1 - Final, Complete Medications Current Medications Ondansetron HCl (Zofran) 4 mg 1X ONCE IV Last administered on 03/09/17 08:30 ; Start 03/09/17 at 08:15; Stop 03/09/17 at 08:16; Status DC Iohexol (Omnipaque 300 Mg/ml) 75 ml 1X ONCE IV Last administered on 03/09/17 08:50; Start 03/09/17 at 08:45; Stop 03/09/17 at 08:46; Status DC Info (Do NOT chart on this entry -- for MONITORING) 1 each PRN DAILY PRN MC SEE COMMENTS; Start 03/09/17 at 08:45; Stop 03/11/17 at 08:44; Status DC Ceftriaxone Sodium 50 ml @ 100 mls/hr 1X ONCE IV ; Start 03/09/17 at 09:30; Stop 03/09/17 at 09:55; Status DC Sodium Chloride 1,000 ml @ 1,000 mls/hr 1X ONCE IV Last administered on 09:55; Start 03/09/17 at 10:00; Stop 03/09/17 at 10:59; Status DC Ondansetron HCl (Zofran) 4 mg PRN Q8HRS PRN IV NAUSEA/VOMITING; Start 03/09/17 at 10:30; Stop 03/10/17 at 10:29; Status DC Meropenem 500 mg/ Sodium Chloride 50 ml @ 100 mls/hr Q8HRS IV Last administered on 03/16/17 06:09; Start 03/09/17 at 13:00; Stop 03/16/17 at 12: 59; Status DC Acetaminophen (Tylenol) 650 mg PRN QID PRN PO MILD PAIN / TEMP Last administered on 03/30/17 17:43; Start 03/09/17 at 20:30 Aspirin (Children'S Aspirin) 81 mg DAILY PO Last administered on 04/07/17 08: 49; Start 03/10/17 at 15:00 Clopidogrel Bisulfate (Plavix) 75 mg DAILY PO Last administered on 03/19/17 10:00; Start 03/10/17 at 15:00; Stop 03/22/17 at 09:10; Status DC Ferrous Sulfate (Feosol) 325 mg DAILY PO Last administered on 04/07/17 08:49; Start 03/10/17 at 15:00 Metoprolol Tartrate (Lopressor) 12.5 mg BID PO Last administered on 03/10/17 16:01; Start 03/10/17 at 15:00; Stop 03/10/17 at 21:01; Status DC Diclofenac Sodium (Voltaren) 75 mg DAILY PO Last administered on 03/23/17 09: 23; Start 03/10/17 at 14:30; Stop 03/29/17 at 10:50; Status DC Famotidine (Pepcid) 20 mg QHS PO Last administered on 03/24/17 21:20; Start 03/10/17 at 21:00; Stop 03/26/17 at 09:35; Status DC Glimepiride (Amaryl) 1 mg DAILY PO Last administered on 03/13/17 09:25; Start 03/11/17 at 15:00; Stop 03/13/17 at 17:02; Status DC Sodium Chloride 1,000 ml @ 100 mls/hr 1X ONCE IV Last administered on 21:00; Start 03/10/17 at 21:00; Stop 03/11/17 at 06:59; Status DC Lidocaine/Sodium Bicarbonate (Buffered Lidocaine 1%) 20 ml STK-MED ONCE IJ ; Start 03/12/17 at 13:05; Stop 03/12/17 at 13:06; Status DC Fentanyl Citrate (Fentanyl 2ml Vial) 100 mcg STK-MED ONCE .ROUTE ; Start at 13:20; Stop 03/12/17 at 13:21; Status DC Midazolam HCl (Versed) 2 mg STK-MED ONCE .ROUTE ; Start 03/12/17 at 13:20; Stop 03/12/17 at 13:21; Status DC Flumazenil (Romazicon) 0.5 mg STK-MED ONCE IV ; Start 03/12/17 at 13:20; Stop 03/12/17 at 13:21; Status DC Naloxone HCl (Narcan) 0.4 mg STK-MED ONCE .ROUTE ; Start 03/12/17 at 13:20; Stop 03/12/17 at 13:21; Status DC Lidocaine/Sodium Bicarbonate (Buffered Lidocaine 1%) 20 ml 1X ONCE IJ Last administered on 03/12/17 13:50; Start 03/12/17 at 13:30; Stop 03/12/17 at 13:33 ; Status DC Midazolam HCl (Versed) 2 mg 1X ONCE IV Last administered on 03/12/17 13:50; Start 03/12/17 at 13:30; Stop 03/12/17 at 13:33; Status DC Fentanyl Citrate (Fentanyl 2ml Vial) 100 mcg 1X ONCE IV Last administered on 03/12/17 13:50; Start 03/12/17 at 13:30; Stop 03/12/17 at 13:33; Status DC Lactobacillus Rhamnosus (Culturelle) 1 cap BID PO Last administered on 21:20; Start 03/12/17 at 21:00; Stop 03/25/17 at 21:06; Status DC Acetaminophen/ Hydrocodone Bitart (Lortab 7.5/325) 1 tab PRN Q6HRS PRN PO MODERATE - SEVERE PAIN Last administered on 04/07/17 08:48; Start 03/12/17 at 18:15 Ondansetron HCl (Zofran) 4 mg PRN Q6HRS PRN IV NAUSEA/VOMITING, 1ST CHOICE Last administered on 03/25/17 04:53; Start 03/13/17 at 09:00 Furosemide (Lasix) 40 mg QODAY PO Last administered on 03/22/17 09:39; Start 03/14/17 at 09:00; Stop 03/26/17 at 09:00; Status DC Glimepiride (Amaryl) 1 mg DAILY08 PO Last administered on 03/22/17 09:40; Start 03/14/17 at 08:00; Stop 03/23/17 at 08:52; Status DC Linezolid (Zyvox) 600 mg BID PO Last administered on 03/24/17 21:20; Start 03/14/17 at 13:15; Stop 03/25/17 at 10:49; Status DC Meropenem (Merrem) 500 mg Q8HRS IVP Last administered on 03/30/17 06:04; Start 03/16/17 at 14:00; Stop 03/30/17 at 07:49; Status DC Iohexol (Omnipaque 240 Mg/ml) 50 ml STK-MED ONCE .ROUTE ; Start 03/19/17 at 13: 11; Stop 03/19/17 at 13:12; Status DC Iohexol (Omnipaque 240 Mg/ml) 10 ml 1X ONCE IJ Last administered on 14:07; Start 03/19/17 at 14:00; Stop 03/19/17 at 14:01; Status DC Info (Do NOT chart on this entry -- for MONITORING) 1 each PRN DAILY PRN MC SEE COMMENTS; Start 03/19/17 at 14:00; Stop 03/21/17 at 13:59; Status DC Iohexol (Omnipaque 240 Mg/ml) 50 ml STK-MED ONCE .ROUTE ; Start 03/19/17 at 13: 55; Stop 03/19/17 at 13:56; Status DC Fluconazole (Diflucan) 200 mg DAILY PO Last administered on 03/23/17 09:24; Start 03/22/17 at 09:30; Stop 03/25/17 at 10:51; Status DC Metoprolol Succinate (Toprol Xl) 12.5 mg DAILY PO Last administered on 08:48; Start 03/23/17 at 09:00 Glimepiride (Amaryl) 0.5 mg DAILY08 PO ; Start 03/24/17 at 08:00; Stop at 13:05; Status DC Morphine Sulfate 1 mg PRN Q10MIN PRN IV SEVERE PAIN; Start 03/26/17 at 07:00; Stop 03/26/17 at 07:00; Status DC Ringer's Solution 1,000 ml @ 30 mls/hr Q24H IV ; Start 03/26/17 at 07:00; Stop 03/26/17 at 07:00; Status DC Lidocaine HCl (Xylocaine-Mpf 1% Vial) 2 ml PRN 1X PRN ID PRIOR TO IV START; Start 03/26/17 at 07:00; Stop 03/26/17 at 07:00; Status DC Hydromorphone HCl (Dilaudid) 0.5 mg PRN Q10MIN PRN IV SEV PAIN, Second choice; Start 03/26/17 at 07:00; Stop 03/27/17 at 06:59; Status Cancel Prochlorperazine Edisylate (Compazine) 5 mg PACU PRN PRN IV NAUSEA, MRX1 Last administered on 03/25/17 07:45; Start 03/26/17 at 07:00; Stop 03/26/17 at 07 :00; Status DC Morphine Sulfate 1 mg PRN Q10MIN PRN IV SEVERE PAIN; Start 03/24/17 at 07:45; Stop 03/25/17 at 07:44; Status DC Ringer's Solution 1,000 ml @ 30 mls/hr Q24H IV Last administered on 14:15; Start 03/24/17 at 07:32; Stop 03/24/17 at 19:31; Status DC Lidocaine HCl (Xylocaine-Mpf 1% Vial) 2 ml 1X PRN PRN ID IV START; Start 03/24 at 07:45; Stop 03/25/17 at 07:44; Status DC Hydromorphone HCl (Dilaudid) 0.5 mg PRN Q10MIN PRN IV SEV PAIN, Second choice; Start 03/24/17 at 07:45; Stop 03/25/17 at 07:44; Status DC Prochlorperazine Edisylate (Compazine) 5 mg PACU PRN PRN IV NAUSEA, MRX1; Start 03/24/17 at 07:45; Stop 03/25/17 at 07:44; Status DC Bupivacaine HCl/ Epinephrine Bitart (Sensorcain-Mpf Epi 0.5%-1:[id number]) 30 ml STK -MED ONCE .ROUTE Last administered on 03/24/17 15:56; Start 03/24/17 at 10: 28; Stop 03/24/17 at 10:29; Status DC Neostigmine Methylsulfate (Bloxiverz) 10 mg STK-MED ONCE .ROUTE ; Start at 14:38; Stop 03/24/17 at 14:39; Status DC Rocuronium Millen (Zemuron) 50 mg STK-MED ONCE .ROUTE ; Start 03/24/17 at 14: 38; Stop 03/24/17 at 14:39; Status DC Fentanyl Citrate (Fentanyl 2ml Vial) 100 mcg STK-MED ONCE .ROUTE ; Start at 14:38; Stop 03/24/17 at 14:39; Status DC Phenylephrine HCl 1 mg STK-MED ONCE IV ; Start 03/24/17 at 14:40; Stop at 14:41; Status DC Lidocaine HCl (Lidocaine Pf 2% Vial) 5 ml STK-MED ONCE .ROUTE ; Start 03/24/17 at 14:40; Stop 03/24/17 at 14:41; Status DC Dexamethasone Sodium Phosphate (Decadron) 20 mg STK-MED ONCE .ROUTE ; Start at 14:40; Stop 03/24/17 at 14:41; Status DC Ondansetron HCl (Zofran) 4 mg STK-MED ONCE .ROUTE ; Start 03/24/17 at 14:40; Stop 03/24/17 at 14:41; Status DC Propofol 20 ml @ As Directed STK-MED ONCE IV ; Start 03/24/17 at 14:40; Stop 03/24/17 at 14:41; Status DC Glycopyrrolate (Robinul) 1 mg STK-MED ONCE .ROUTE ; Start 03/24/17 at 15:11; Stop 03/24/17 at 15:12; Status DC Rocuronium Millen (Zemuron) 50 mg STK-MED ONCE .ROUTE ; Start 03/24/17 at 15: 53; Stop 03/24/17 at 15:54; Status DC Fentanyl Citrate (Fentanyl 2ml Vial) 100 mcg STK-MED ONCE .ROUTE ; Start at 16:01; Stop 03/24/17 at 16:02; Status DC Morphine Sulfate 10 mg STK-MED ONCE .ROUTE ; Start 03/24/17 at 16:02; Stop at 16:03; Status DC Albumin Human 500 ml @ As Directed STK-MED ONCE IV ; Start 03/24/17 at 17:03; Stop 03/24/17 at 17:04; Status DC Phenylephrine HCl (Corky-Synephrine Inj) 10 mg STK-MED ONCE .ROUTE ; Start at 17:27; Stop 03/24/17 at 17:28; Status DC Rocuronium Millen (Zemuron) 100 mg STK-MED ONCE .ROUTE ; Start 03/24/17 at 17: 57; Stop 03/24/17 at 17:58; Status DC Enoxaparin Sodium (Lovenox 40mg Syringe) 40 mg Q24H SQ Last administered on 20:51; Start 03/24/17 at 20:45; Stop 03/26/17 at 19:34; Status DC Sodium Chloride (Normal Saline Flush) 3 ml QSHIFT PRN IV AFTER MEDS AND BLOOD DRAWS; Start 03/24/17 at 20:45 Ringer's Solution 1,000 ml @ 100 mls/hr Q10H IV Last administered on 12:32; Start 03/24/17 at 20:43; Stop 03/25/17 at 16:52; Status DC Naloxone HCl (Narcan) 0.4 mg PRN Q2MIN PRN IV SEE INSTRUCTIONS; Start at 20:45 Sodium Chloride 1,000 ml @ 25 mls/hr Q24H IV Last administered on 03/27/17 12:08; Start 03/24/17 at 20:43 Hydromorphone HCl 30 ml @ 0 mls/hr CONT PRN PRN IV PROTOCOL Last administered on 03/24/17 23:16; Start 03/24/17 at 20:45 Prochlorperazine Edisylate (Compazine) 5 mg PRN Q4HRS PRN IV NAUSEA/VOMITING, 2ND CHOICE; Start 03/25/17 at 07:45 Pantoprazole Sodium (PROTONIX VIAL for IV PUSH) 40 mg DAILYAC IVP Last administered on 04/06/17 09:47; Start 03/25/17 at 10:15 Linezolid 300 ml @ 300 mls/hr Q12HR IV Last administered on 03/26/17 20:54; Start 03/25/17 at 11:00; Stop 03/27/17 at 08:05; Status DC Fluconazole/ Sodium Chloride 100 ml @ 100 mls/hr Q24H IV Last administered on 04/06/17 11:29; Start 03/25/17 at 11:00 Dextrose/Lactated Ringer's 1,000 ml @ 75 mls/hr [id number] IV Last administered on 04/03/17 08:54; Start 03/25/17 at 17:00; Stop 04/04/17 at 09:23; Status DC Famotidine (Pepcid Vial) 40 mg QHS IVP Last administered on 03/28/17 21:35; Start 03/25/17 at 21:00; Stop 03/29/17 at 08:02; Status DC Lorazepam (Ativan) 0.5 mg 1X ONCE IV ; Start 03/26/17 at 07:00; Stop at 07:01; Status Cancel Lorazepam (Ativan) 0.5 mg PRN Q8HRS PRN PO ANXIETY / AGITATION; Start at 07:00; Status Cancel Furosemide (Lasix) 40 mg 1X ONCE IVP Last administered on 03/26/17 09:54; Start 03/26/17 at 09:00; Stop 03/26/17 at 09:01; Status DC Furosemide (Lasix) 20 mg DAILY IVP Last administered on 03/30/17 09:29; Start 03/27/17 at 09:00; Stop 03/31/17 at 12:22; Status DC Digoxin (Lanoxin) 250 mcg 1X ONCE IV Last administered on 03/26/17 15:06; Start 03/26/17 at 15:15; Stop 03/26/17 at 15:16; Status DC Iohexol (Omnipaque 300 Mg/ml) 75 ml 1X ONCE IV Last administered on 16:41; Start 03/26/17 at 16:45; Stop 03/26/17 at 16:46; Status DC Info (Do NOT chart on this entry -- for MONITORING) 1 each PRN DAILY PRN MC SEE COMMENTS; Start 03/26/17 at 16:45; Stop 03/28/17 at 16:44; Status DC Norepinephrine Bitartrate 250 ml @ As Directed STK-MED ONCE IV ; Start at 17:42; Stop 03/26/17 at 17:43; Status DC Norepinephrine Bitartrate 250 ml @ 0 mls/hr CONT PRN IV SEE I/O RECORD Last administered on 03/26/17 18:01; Start 03/26/17 at 18:00; Stop 04/04/17 at 09 :57; Status DC Enoxaparin Sodium (Lovenox Per Pharmacy Treatment Dosing) 1 each PRN DAILY PRN MC SEE COMMENTS; Start 03/26/17 at 19:30; Stop 03/28/17 at 12:38; Status DC Enoxaparin Sodium (Lovenox 80mg Syringe) 80 mg Q12HR SQ Last administered on 21:51; Start 03/26/17 at 20:00; Stop 03/28/17 at 15:36; Status DC Daptomycin 460 mg/ Sodium Chloride 50 ml @ 100 mls/hr Q24H IV Last administered on 04/06/17 09:46; Start 03/27/17 at 09:00 Digoxin (Lanoxin) 250 mcg 1X ONCE IV Last administered on 03/27/17 12:09; Start 03/27/17 at 12:00; Stop 03/27/17 at 12:01; Status DC Insulin Detemir (Levemir) 5 units QHS SQ Last administered on 04/04/17 21:30 ; Start 03/27/17 at 21:00; Stop 04/05/17 at 09:34; Status DC Albumin Human 100 ml @ 100 mls/hr Q8H IV Last administered on 03/29/17 00:42 ; Start 03/28/17 at 09:00; Stop 03/29/17 at 01:59; Status DC Lorazepam (Ativan) 1 mg PRN Q6HRS PRN PO ANXIETY / AGITATION Last administered on 04/07/17 05:43; Start 03/28/17 at 16:00 Iohexol (Omnipaque 300 Mg/ml) 75 ml 1X ONCE IV Last administered on 16:00; Start 03/28/17 at 16:00; Stop 03/28/17 at 16:02; Status DC Info (Do NOT chart on this entry -- for MONITORING) 1 each PRN DAILY PRN MC SEE COMMENTS; Start 03/28/17 at 16:15; Stop 03/30/17 at 16:14; Status DC Fentanyl Citrate (Fentanyl 2ml Vial) 50 mcg PRN Q4HRS PRN IV PAIN Last administered on 04/01/17 08:14; Start 03/29/17 at 09:45 Ciprofloxacin/ Dextrose 200 ml @ 200 mls/hr Q12HR IV Last administered on 08:58; Start 03/30/17 at 09:00; Stop 04/04/17 at 10:45; Status DC Lorazepam (Ativan) 0.5 mg Q12HR PO Last administered on 04/07/17 08:48; Start 03/30/17 at 21:00 Dopamine HCl/ Dextrose 250 ml @ 15.155 mls/ hr CONT PRN IV SEE I/O RECORD Last administered on 04/06/17 15:44; Start 03/31/17 at 13:00 Info 1 each PRN DAILY PRN MC SEE COMMENTS Last administered on 04/06/17 13:17 ; Start 04/03/17 at 12:15 Sodium Chloride 90 meq/Potassium Chloride 50 meq/ Potassium Phosphate 20.4 mmol/ Magnesium Sulfate 10 meq/ Calcium Gluconate 10 meq/ Multivitamins 10 ml/Chromium / Copper/Manganese/ Seleni/Zn 1 ml/ Total Parenteral Nutrition/Amino Acids/ Dextrose/ Fat Emulsion Intravenous 1,512 ml @ 63 mls/hr TPN CONT IV Last administered on 04/03/17 21:38; Start 04/03/17 at 22:00; Stop 04/04/17 at 21 :59; Status DC Levofloxacin/ Dextrose 100 ml @ 100 mls/hr Q24H IV Last administered on 21:47; Start 04/04/17 at 21:00 Furosemide (Lasix) 40 mg DAILY IVP Last administered on 04/06/17 09:46; Start 04/04/17 at 12:00 Sodium Chloride 90 meq/Potassium Chloride 50 meq/ Potassium Phosphate 20.4 mmol/ Magnesium Sulfate 16 meq/ Calcium Gluconate 10 meq/ Multivitamins 10 ml/Chromium / Copper/Manganese/ Seleni/Zn 1 ml/ Total Parenteral Nutrition/Amino Acids/ Dextrose/ Fat Emulsion Intravenous 1,512 ml @ 63 mls/hr TPN CONT IV Last administered on 04/04/17 21:16; Start 04/04/17 at 22:00; Stop 04/05/17 at 21 :59; Status DC Insulin Detemir (Levemir) 20 units QHS SQ Last administered on 04/06/17 21:47 ; Start 04/05/17 at 21:00 Insulin Detemir (Levemir) 10 units 1X ONCE SQ Last administered on 04/05/17 14:12; Start 04/05/17 at 09:45; Stop 04/05/17 at 09:46; Status DC Sodium Chloride 90 meq/Potassium Chloride 50 meq/ Potassium Phosphate 20.4 mmol/ Magnesium Sulfate 24 meq/ Calcium Gluconate 10 meq/ Multivitamins 10 ml/Chromium / Copper/Manganese/ Seleni/Zn 1 ml/ Total Parenteral Nutrition/Amino Acids/ Dextrose/ Fat Emulsion Intravenous 1,512 ml @ 63 mls/hr TPN CONT IV Last administered on 04/05/17 20:55; Start 04/05/17 at 22:00; Stop 04/06/17 at 21: 59; Status DC Iohexol (Omnipaque 300 Mg/ml) 75 ml 1X ONCE IV ; Start 04/05/17 at 13:00; Stop 04/05/17 at 13:01; Status DC Iohexol (Omnipaque 240 Mg/ml) 30 ml 1X ONCE PO ; Start 04/05/17 at 13:00; Stop 04/05/17 at 13:01; Status DC Info (Do NOT chart on this entry -- for MONITORING) 1 each PRN DAILY PRN MC SEE COMMENTS; Start 04/05/17 at 13:00; Stop 04/07/17 at 12:59 Sodium Chloride 90 meq/Potassium Chloride 50 meq/ Potassium Phosphate 20.4 mmol/ Magnesium Sulfate 24 meq/ Calcium Gluconate 10 meq/ Multivitamins 10 ml/Chromium / Copper/Manganese/ Seleni/Zn 1 ml/ Total Parenteral Nutrition/Amino Acids/ Dextrose/ Fat Emulsion Intravenous 1,512 ml @ 63 mls/hr TPN CONT IV Last administered on 04/06/17 21:45; Start 04/06/17 at 22:00; Stop 04/07/17 at 21:59 Lidocaine/Sodium Bicarbonate (Buffered Lidocaine 1%) 20 ml STK-MED ONCE IJ ; Start 04/06/17 at 14:28; Stop 04/06/17 at 14:29; Status DC Fentanyl Citrate (Fentanyl 2ml Vial) 100 mcg STK-MED ONCE .ROUTE ; Start at 14:45; Stop 04/06/17 at 14:46; Status DC Midazolam HCl (Versed) 2 mg STK-MED ONCE .ROUTE ; Start 04/06/17 at 14:45; Stop 04/06/17 at 14:46; Status DC Flumazenil (Romazicon) 0.5 mg STK-MED ONCE IV ; Start 04/06/17 at 14:45; Stop 04/06/17 at 14:46; Status DC Naloxone HCl (Narcan) 0.4 mg STK-MED ONCE .ROUTE ; Start 04/06/17 at 14:45; Stop 04/06/17 at 14:46; Status DC Dopamine HCl/ Dextrose 250 ml @ As Directed STK-MED ONCE IV ; Start 04/06/17 at 14:50; Stop 04/06/17 at 14:51; Status DC Lidocaine/Sodium Bicarbonate (Buffered Lidocaine 1%) 7 ml 1X ONCE IJ Last administered on 04/06/17t 15:20; Start 04/06/17 at 15:30; Stop 04/06/17 at 15:31 ; Status DC Active Scripts Active Reported Flagyl (Metronidazole) 500 Mg Tablet 1 Tab PO BID Cefpodoxime Proxetil 200 Mg Tablet 1 Tab PO BID Ferrous Sulfate 325 Mg Tablet 1 Tab PO DAILY Lasix (Furosemide) 40 Mg Tablet 40 Mg PO QODAY Potassium Chloride 10 Meq Capsule.er 10 Meq PO QODAY Metoprolol Tartrate 25 Mg Tablet 12.5 Mg PO BID Atorvastatin Calcium 40 Mg Tablet 40 Mg PO HS Clopidogrel (Clopidogrel Bisulfate) 75 Mg Tablet 1 Tab PO DAILY Diclofenac Sodium 75 Mg Tablet.dr 75 Mg PO DAILY Ranitidine Hcl 150 Mg Tablet 1 Tab PO BID Aspirin 81 Mg Tab.chew 1 Tab PO DAILY Vitals/I & O Vital Sign - Last 24 Hours 04/06/17 04/06/17 04/06/17 04/06/17 10:00 11:00 12:00 12:02 Temp 98.2 98.2 Pulse 96 89 92 Resp 20 B/P (MAP) 116/56 (76) 119/52 (74) 119/52 (74) Pulse Ox 100 100 O2 Delivery BiPAP/CPAP BiPAP/CPAP O2 Flow Rate 5.0 04/06/17 04/06/17 04/06/17 04/06/17 14:00 15:00 16:00 16:06 Temp 98.6 98.6 Pulse 95 95 100 Resp 20 B/P (MAP) 105/57 (73) 119/54 (75) 92/54 (67) Pulse Ox 97 100 O2 Delivery BiPAP/CPAP BiPAP/CPAP O2 Flow Rate 5.0 04/06/17 04/06/17 04/06/17 04/06/17 16:15 16:30 16:45 17:35 Pulse 104 98 98 B/P (MAP) 92/57 (69) 92/56 (68) 125/78 (94) Pulse Ox 100 O2 Delivery BiPAP/CPAP 04/06/17 04/06/17 04/06/17 04/06/17 19:00 19:30 20:30 20:30 Temp 99.3 99.3 Pulse 108 Resp 30 B/P (MAP) 114/54 (74) Pulse Ox 99 100 O2 Delivery BiPAP/CPAP BiPAP/CPAP Bi-pap O2 Flow Rate 5.0 5.0 04/06/17 04/06/17 04/07/17 04/07/17 23:08 23:42 00:12 00:42 Temp 97.4 97.4 Pulse 106 Resp 32 20 20 B/P (MAP) 102/56 (71) Pulse Ox 98 98 O2 Delivery BiPAP/CPAP BiPAP/CPAP BiPAP/CPAP BiPAP/CPAP O2 Flow Rate 5.0 04/07/17 04/07/17 04/07/17 04/07/17 01:15 03:41 03:46 06:14 Temp 98.3 98.3 Pulse 91 Resp 40 26 B/P (MAP) 114/61 (78) Pulse Ox 98 98 100 97 O2 Delivery BiPAP/CPAP BiPAP/CPAP BiPAP/CPAP O2 Flow Rate 5.0 04/07/17 04/07/17 04/07/17 04/07/17 06:18 07:31 08:48 08:48 Temp 98.6 98.6 Pulse 103 103 Resp 28 40 B/P (MAP) 131/75 (93) 131/75 Pulse Ox 98 97 O2 Delivery BiPAP/CPAP BiPAP/CPAP Nasal Cannula O2 Flow Rate 5.0 Intake and Output 04/06/17 04/06/17 04/07/17 15:00 23:00 07:00 Intake Total 557 ml 200 ml Output Total 2200 ml 125 ml Balance -1643 ml 75 ml CICI OSCAR MD Apr 07, 2017 09:58
[2017-04-07 11:02] VITALS: BP 87/44
--- NOTE | 2017-04-07 11:14 | PDOC ---
PULMONARY PROGRESS NOTES Subjective REMAINS ON BIPAP / MORE COMFORTABLE Vitals Vital Signs Date Time Temp Pulse Resp B/P (MAP) Pulse Ox O2 Delivery O2 Flow Rate FiO2 04/07/17 11:02 101.7 85 22 87/44 (58) 99 BiPAP/CPAP 101.7 04/07/17 08:48 5.0 General: Alert, No acute distress Lungs: Other (decrease bs) Cardiovascular: S1, S2 Abdomen: Soft, Other (continues to have drainage from the abdo wound,lower incision site,brownish fluid) Neuro Exam: Alert Extremities: Other (1+edema) Skin: Warm Labs Laboratory Tests Test 04/05/17 11:38 04/05/17 16:15 04/05/17 20:00 04/06/17 05:40 Glucose (Fingerstick) 225 mg/dL (70-99) 243 mg/dL (70-99) 219 mg/dL (70-99) White Blood Count 10.9 x10^3/uL (4.0-11.0) Red Blood Count 2.71 x10^6/uL (3.50-5.40) Hemoglobin 7.7 g/dL (12.0-15.5) Hematocrit 23.7 % (36.0-47.0) Mean Corpuscular Volume 87 fL (79-100) Mean Corpuscular Hemoglobin 28 pg (25-35) Mean Corpuscular Hemoglobin Concent 33 g/dL (31-37) Red Cell Distribution Width 17.7 % (11.5-14.5) Platelet Count 373 x10^3/uL (140-400) Neutrophils (%) (Auto) 84 % (31-73) Lymphocytes (%) (Auto) 10 % (24-48) Monocytes (%) (Auto) 6 % (0-9) Eosinophils (%) (Auto) 0 % (0-3) Basophils (%) (Auto) 0 % (0-3) Neutrophils # (Auto) 9.1 x10^3uL (1.8-7.7) Lymphocytes # (Auto) 1.1 x10^3/uL (1.0-4.8) Monocytes # (Auto) 0.6 x10^3/uL (0.0-1.1) Eosinophils # (Auto) 0.0 x10^3/uL (0.0-0.7) Basophils # (Auto) 0.0 x10^3/uL (0.0-0.2) Sodium Level 136 mmol/L (136-145) Potassium Level 4.3 mmol/L (3.5-5.1) Chloride Level 102 mmol/L (98-107) Carbon Dioxide Level 29 mmol/L (21-32) Anion Gap 5 (6-14) Blood Urea Nitrogen 18 mg/dL (7-20) Creatinine 0.6 mg/dL (0.6-1.0) Estimated GFR (Cockcroft-Gault) 98.5 BUN/Creatinine Ratio 30 (6-20) Glucose Level 163 mg/dL (70-99) Calcium Level 8.2 mg/dL (8.5-10.1) Phosphorus Level 3.5 mg/dL (2.6-4.7) Magnesium Level 1.9 mg/dL (1.8-2.4) Total Bilirubin 0.4 mg/dL (0.2-1.0) Aspartate Amino Transf (AST/SGOT) 23 U/L (15-37) Alanine Aminotransferase (ALT/SGPT) 14 U/L (14-59) Alkaline Phosphatase 111 U/L (46-116) Creatine Kinase 209 U/L (26-192) Total Protein 4.6 g/dL (6.4-8.2) Albumin 0.9 g/dL (3.4-5.0) Albumin/Globulin Ratio 0.2 (1.0-1.7) Test 04/06/17 08:09 04/06/17 12:01 04/06/17 12:40 04/06/17 17:37 Glucose (Fingerstick) 156 mg/dL (70-99) 142 mg/dL (70-99) 146 mg/dL (70-99) O2 Saturation 96 % (92-99) Arterial Blood pH 7.47 (7.35-7.45) Arterial Blood pCO2 at Patient Temp 38 mmHg (35-46) Arterial Blood pO2 at Patient Temp 88 mmHg (65-108) Arterial Blood HCO3 27 mmol/L (21-28) Arterial Blood Base Excess 3 mmol/L (-3-3) FiO2 35 Test 04/06/17 20:49 04/07/17 05:40 04/07/17 08:08 Glucose (Fingerstick) 145 mg/dL (70-99) 155 mg/dL (70-99) Sodium Level 137 mmol/L (136-145) Potassium Level 4.4 mmol/L (3.5-5.1) Chloride Level 101 mmol/L (98-107) Carbon Dioxide Level 29 mmol/L (21-32) Anion Gap 7 (6-14) Blood Urea Nitrogen 16 mg/dL (7-20) Creatinine 0.7 mg/dL (0.6-1.0) Estimated GFR (Cockcroft-Gault) 82.5 Glucose Level 157 mg/dL (70-99) Calcium Level 8.4 mg/dL (8.5-10.1) Phosphorus Level 4.7 mg/dL (2.6-4.7) Magnesium Level 2.2 mg/dL (1.8-2.4) Laboratory Tests Test 04/06/17 12:01 04/06/17 12:40 04/06/17 17:37 04/06/17 20:49 Glucose (Fingerstick) 142 mg/dL (70-99) 146 mg/dL (70-99) 145 mg/dL (70-99) O2 Saturation 96 % (92-99) Arterial Blood pH 7.47 (7.35-7.45) Arterial Blood pCO2 at Patient Temp 38 mmHg (35-46) Arterial Blood pO2 at Patient Temp 88 mmHg (65-108) Arterial Blood HCO3 27 mmol/L (21-28) Arterial Blood Base Excess 3 mmol/L (-3-3) FiO2 35 Test 04/07/17 05:40 04/07/17 08:08 Sodium Level 137 mmol/L (136-145) Potassium Level 4.4 mmol/L (3.5-5.1) Chloride Level 101 mmol/L (98-107) Carbon Dioxide Level 29 mmol/L (21-32) Anion Gap 7 (6-14) Blood Urea Nitrogen 16 mg/dL (7-20) Creatinine 0.7 mg/dL (0.6-1.0) Estimated GFR (Cockcroft-Gault) 82.5 Glucose Level 157 mg/dL (70-99) Calcium Level 8.4 mg/dL (8.5-10.1) Phosphorus Level 4.7 mg/dL (2.6-4.7) Magnesium Level 2.2 mg/dL (1.8-2.4) Glucose (Fingerstick) 155 mg/dL (70-99) Medications Active Scripts Medications Dose Route/Sig Max Daily Dose Days Date Category Flagyl (Metronidazole) 500 Mg Tablet 1 Tab PO BID 03/01/17 Reported Cefpodoxime Proxetil 200 Mg Tablet 1 Tab PO BID 03/01/17 Reported Ferrous Sulfate 325 Mg Tablet 1 Tab PO DAILY 02/23/17 Reported Lasix (Furosemide) 40 Mg Tablet 40 Mg PO QODAY 02/23/17 Reported Potassium Chloride 10 Meq Capsule.er 10 Meq PO QODAY 02/23/17 Reported Metoprolol Tartrate 25 Mg Tablet 12.5 Mg PO BID 01/31/17 Reported Atorvastatin Calcium 40 Mg Tablet 40 Mg PO HS 01/31/17 Reported Clopidogrel (Clopidogrel Bisulfate) 75 Mg Tablet 1 Tab PO DAILY 08/24/15 Reported Diclofenac Sodium 75 Mg Tablet.dr 75 Mg PO DAILY 12/21/14 Reported Ranitidine Hcl 150 Mg Tablet 1 Tab PO BID 12/21/14 Reported Aspirin 81 Mg Tab.chew 1 Tab PO DAILY 04/15/14 Reported Impression . 1. [id number] respiratory failure, expected status post surgical intervention. SUBJECTIVE dyspnea/ Comfortable on BIPAP. suspect due to abdominal process 2. Status post laparoscopic converted to open exploration for extensive lysis of adhesion, removal of old mesh, subtotal colectomy, small bowel resection and incisional hernia repair.Now with brown drainage from wound. entero-cutaneous fistula/ abscess 3. Obesity, body mass index of 35. 4. Leukocytosis. 5. Enterocutaneous fistula. 6. Fever. 7. Abdominal abscess. 8. Ventral hernia, status post repair. 9. Bilateral effusions due to low oncotic pressure/ repeat cxr 04/02 with volume loss bases, no sig. fluid to tap, small effusions on ct 04/05 10. Anxiety disorder Plan . PT REMAINS ON BIPAP/ SOME ANXIETY DISORDER WELL.SUSPECT ABDOMINAL PROCESS CONTRIBUTING TO ONGOING SUBJECTIVE DYSPNEA REPEAT CT ABDOMEN/PELVIS REVIEWED/ SMALL EFFUSIONS, DOES NOT NEED TAP LASIX PRN IMPROVE NUTRITIONAL STATUS/ SEVERE MALNUTRITION VENOUS DOPPLER NEGATIVE/ CT NEGATIVE FOR PE MONITOR PLATELET / MUCH IMPROVED ANXIETY/ ON SCHEDULED ATIVAN ABDOMINAL DRAIN BY IR D/W RN/FAMILY STACI CORRAL MD Apr 07, 2017 11:14
[2017-04-07] MEDS: TPN PER PHARMACY MC PRN (11:33)
[2017-04-07] MEDS: PANTOPRAZOLE IV PUSH 40 MG VIAL. IVP SCH (11:45)
[2017-04-07] MEDS: FUROSEMIDE 40 MG/4 ML VIAL. IVP SCH (11:46)
[2017-04-07] MEDS: DAPTOMYCIN IV SCH (11:48)
[2017-04-07] MEDS: NORMAL SALINE IV SCH (11:48)
[2017-04-07] MEDS: FLUCONAZOLE 200MG/100ML PREMIX 100 ML IV SCH (11:52)
[2017-04-07] MEDS ORDERED: CEFEPIME HCL 1 GM in IV DEXTROSE 5% 50 ML IV SCH (14:00)
--- NOTE | 2017-04-07 14:00 | PDOC ---
SUBJECTIVE Subjective resting on BIPAP, no new complaints OBJECTIVE Vital Signs Vital Signs Date Time Temp Pulse Resp B/P (MAP) Pulse Ox O2 Delivery O2 Flow Rate FiO2 04/07/17 13:26 98.1 98.1 04/07/17 11:32 99 BiPAP/CPAP 04/07/17 11:02 101.7 85 22 87/44 (58) 99 BiPAP/CPAP 101.7 04/07/17 08:48 103 131/75 04/07/17 08:48 40 97 Nasal Cannula 5.0 04/07/17 08:00 Bi-pap 5.0 04/07/17 07:31 98.6 103 28 131/75 (93) BiPAP/CPAP 98.6 04/07/17 06:18 98 BiPAP/CPAP 04/07/17 06:14 26 97 04/07/17 03:46 100 BiPAP/CPAP 04/07/17 03:41 98.3 91 40 114/61 (78) 98 BiPAP/CPAP 5.0 98.3 04/07/17 01:15 98 BiPAP/CPAP 04/07/17 00:42 20 BiPAP/CPAP 04/07/17 00:12 98 BiPAP/CPAP 04/06/17 23:42 20 BiPAP/CPAP 04/06/17 23:08 97.4 106 32 102/56 (71) 98 BiPAP/CPAP 5.0 97.4 04/06/17 20:30 Bi-pap 04/06/17 20:30 5.0 04/06/17 19:30 100 BiPAP/CPAP 04/06/17 19:00 99.3 108 30 114/54 (74) 99 BiPAP/CPAP 5.0 99.3 04/06/17 17:35 100 BiPAP/CPAP 04/06/17 16:45 98 125/78 (94) 04/06/17 16:30 98 92/56 (68) 04/06/17 16:15 104 92/57 (69) 04/06/17 16:06 100 BiPAP/CPAP 04/06/17 16:00 100 92/54 (67) 04/06/17 15:00 98.6 95 20 119/54 (75) 97 BiPAP/CPAP 5.0 98.6 04/06/17 14:00 95 105/57 (73) I & O Intake and Output 04/07/17 07:00 Intake Total 757 ml Output Total 2325 ml Balance -1568 ml Intake Oral 450 ml IV Total 307 ml Output Urine Total 2225 ml Stool Total 100 ml PHYSICAL EXAM Physical Exam lungs with decrease BS heart RRR abd + BS no tenderness ext +2 edema ASSESSMENT/PLAN Assessment/Plan 1. [id number] respiratory failure on BIPAP 2. Status post laparoscopic converted to open exploration for extensive lysis of adhesion, removal of old mesh, subtotal colectomy, small bowel resection and incisional hernia repair.Now with brown drainage from wound. entero-cutaneous fistula/ abscess 3. Obesity, body mass index of 35. 4. Leukocytosis. 5. Enterocutaneous fistula. 6. Fever. 7. Abdominal abscess. 8. Ventral hernia, status post repair. continue plans and ABX Problems: COMMENT Lab Laboratory Tests Test 04/06/17 17:37 04/06/17 20:49 04/07/17 05:40 04/07/17 08:08 Glucose (Fingerstick) 146 mg/dL (70-99) 145 mg/dL (70-99) 155 mg/dL (70-99) Sodium Level 137 mmol/L (136-145) Potassium Level 4.4 mmol/L (3.5-5.1) Chloride Level 101 mmol/L (98-107) Carbon Dioxide Level 29 mmol/L (21-32) Anion Gap 7 (6-14) Blood Urea Nitrogen 16 mg/dL (7-20) Creatinine 0.7 mg/dL (0.6-1.0) Estimated GFR (Cockcroft-Gault) 82.5 Glucose Level 157 mg/dL (70-99) Calcium Level 8.4 mg/dL (8.5-10.1) Phosphorus Level 4.7 mg/dL (2.6-4.7) Magnesium Level 2.2 mg/dL (1.8-2.4) RONNIE KABA MD Apr 07, 2017 14:00
[2017-04-07 15:00] VITALS: BP 118/58
[2017-04-07] MEDS: CEFEPIME HCL IV Push 1 GM VIAL. IVP SCH ×2 (15:34→21:14)
[2017-04-07] MEDS: MICAFUNGIN 100 MG in IV NORMAL SALINE 100ML 100 ML IV SCH (15:35)
--- NOTE | 2017-04-07 16:00 | PDOC ---
PROGRESS NOTES Subjective Subjective HPI - f/u of anemia ROS - dyspnea, on BIPAP Objective Objective Vital Signs Date Time Temp Pulse Resp B/P (MAP) Pulse Ox O2 Delivery O2 Flow Rate FiO2 04/07/17 13:26 98.1 98.1 04/07/17 11:32 99 BiPAP/CPAP 04/07/17 11:02 85 22 87/44 (58) 04/07/17 08:48 5.0 Intake and Output 04/07/17 07:00 Intake Total 757 ml Output Total 2325 ml Balance -1568 ml Intake Oral 450 ml IV Total 307 ml Output Urine Total 2225 ml Stool Total 100 ml Physical Exam General: mild distress Neck: No JVD Assessment Assessment Problems Medical Problems: (1) Abdominal abscess Status: Acute (2) Abdominal pain Status: Acute A/P: 1. Thrombocytopenia. Improved. Plt count 373. 2. Anemia. Most likely multifactorial. Iron studies are suggestive of anemia of chronic disease. /B12 normal. Hb worse at 7.7, monitor prn 3. Abscess. Management as per primary/surgery 4. Status post laparoscopic converted to open exploration for extensive lysis of adhesion, removal of old mesh, subtotal colectomy, small bowel resection and incisional hernia repair. 5. [id number] respiratory failure, expected status post surgical intervention. Persistent dyspnea/ BIPAP - appreciate pulm f/u Comment Review of Relevant I have reviewed the following items chito (where applicable) has been applied. Labs Laboratory Tests Test 04/05/17 16:15 04/05/17 20:00 04/06/17 05:40 04/06/17 08:09 Glucose (Fingerstick) 243 mg/dL (70-99) 219 mg/dL (70-99) 156 mg/dL (70-99) White Blood Count 10.9 x10^3/uL (4.0-11.0) Red Blood Count 2.71 x10^6/uL (3.50-5.40) Hemoglobin 7.7 g/dL (12.0-15.5) Hematocrit 23.7 % (36.0-47.0) Mean Corpuscular Volume 87 fL (79-100) Mean Corpuscular Hemoglobin 28 pg (25-35) Mean Corpuscular Hemoglobin Concent 33 g/dL (31-37) Red Cell Distribution Width 17.7 % (11.5-14.5) Platelet Count 373 x10^3/uL (140-400) Neutrophils (%) (Auto) 84 % (31-73) Lymphocytes (%) (Auto) 10 % (24-48) Monocytes (%) (Auto) 6 % (0-9) Eosinophils (%) (Auto) 0 % (0-3) Basophils (%) (Auto) 0 % (0-3) Neutrophils # (Auto) 9.1 x10^3uL (1.8-7.7) Lymphocytes # (Auto) 1.1 x10^3/uL (1.0-4.8) Monocytes # (Auto) 0.6 x10^3/uL (0.0-1.1) Eosinophils # (Auto) 0.0 x10^3/uL (0.0-0.7) Basophils # (Auto) 0.0 x10^3/uL (0.0-0.2) Sodium Level 136 mmol/L (136-145) Potassium Level 4.3 mmol/L (3.5-5.1) Chloride Level 102 mmol/L (98-107) Carbon Dioxide Level 29 mmol/L (21-32) Anion Gap 5 (6-14) Blood Urea Nitrogen 18 mg/dL (7-20) Creatinine 0.6 mg/dL (0.6-1.0) Estimated GFR (Cockcroft-Gault) 98.5 BUN/Creatinine Ratio 30 (6-20) Glucose Level 163 mg/dL (70-99) Calcium Level 8.2 mg/dL (8.5-10.1) Phosphorus Level 3.5 mg/dL (2.6-4.7) Magnesium Level 1.9 mg/dL (1.8-2.4) Total Bilirubin 0.4 mg/dL (0.2-1.0) Aspartate Amino Transf (AST/SGOT) 23 U/L (15-37) Alanine Aminotransferase (ALT/SGPT) 14 U/L (14-59) Alkaline Phosphatase 111 U/L (46-116) Creatine Kinase 209 U/L (26-192) Total Protein 4.6 g/dL (6.4-8.2) Albumin 0.9 g/dL (3.4-5.0) Albumin/Globulin Ratio 0.2 (1.0-1.7) Test 04/06/17 12:01 04/06/17 12:40 04/06/17 17:37 04/06/17 20:49 Glucose (Fingerstick) 142 mg/dL (70-99) 146 mg/dL (70-99) 145 mg/dL (70-99) O2 Saturation 96 % (92-99) Arterial Blood pH 7.47 (7.35-7.45) Arterial Blood pCO2 at Patient Temp 38 mmHg (35-46) Arterial Blood pO2 at Patient Temp 88 mmHg (65-108) Arterial Blood HCO3 27 mmol/L (21-28) Arterial Blood Base Excess 3 mmol/L (-3-3) FiO2 35 Test 04/07/17 05:40 04/07/17 08:08 Sodium Level 137 mmol/L (136-145) Potassium Level 4.4 mmol/L (3.5-5.1) Chloride Level 101 mmol/L (98-107) Carbon Dioxide Level 29 mmol/L (21-32) Anion Gap 7 (6-14) Blood Urea Nitrogen 16 mg/dL (7-20) Creatinine 0.7 mg/dL (0.6-1.0) Estimated GFR (Cockcroft-Gault) 82.5 Glucose Level 157 mg/dL (70-99) Calcium Level 8.4 mg/dL (8.5-10.1) Phosphorus Level 4.7 mg/dL (2.6-4.7) Magnesium Level 2.2 mg/dL (1.8-2.4) Glucose (Fingerstick) 155 mg/dL (70-99) Laboratory Tests Test 04/06/17 17:37 04/06/17 20:49 04/07/17 05:40 04/07/17 08:08 Glucose (Fingerstick) 146 mg/dL (70-99) 145 mg/dL (70-99) 155 mg/dL (70-99) Sodium Level 137 mmol/L (136-145) Potassium Level 4.4 mmol/L (3.5-5.1) Chloride Level 101 mmol/L (98-107) Carbon Dioxide Level 29 mmol/L (21-32) Anion Gap 7 (6-14) Blood Urea Nitrogen 16 mg/dL (7-20) Creatinine 0.7 mg/dL (0.6-1.0) Estimated GFR (Cockcroft-Gault) 82.5 Glucose Level 157 mg/dL (70-99) Calcium Level 8.4 mg/dL (8.5-10.1) Phosphorus Level 4.7 mg/dL (2.6-4.7) Magnesium Level 2.2 mg/dL (1.8-2.4) Microbiology 03/09/17 Blood Culture - Final, Complete NO GROWTH AFTER 5 DAYS 04/06/17 Gram Stain - Final, Complete 03/09/17 Urine Culture - Final, Complete 03/09/17 Urine Culture Result 1 (KULDEEP) - Final, Complete 03/12/17 Fungal Culture - Final, Complete 03/12/17 Fungal Culture Result 1 - Final, Complete Medications Current Medications Ondansetron HCl (Zofran) 4 mg 1X ONCE IV Last administered on 03/09/17 08:30 ; Start 03/09/17 at 08:15; Stop 03/09/17 at 08:16; Status DC Iohexol (Omnipaque 300 Mg/ml) 75 ml 1X ONCE IV Last administered on 03/09/17 08:50; Start 03/09/17 at 08:45; Stop 03/09/17 at 08:46; Status DC Info (Do NOT chart on this entry -- for MONITORING) 1 each PRN DAILY PRN MC SEE COMMENTS; Start 03/09/17 at 08:45; Stop 03/11/17 at 08:44; Status DC Ceftriaxone Sodium 50 ml @ 100 mls/hr 1X ONCE IV ; Start 03/09/17 at 09:30; Stop 03/09/17 at 09:55; Status DC Sodium Chloride 1,000 ml @ 1,000 mls/hr 1X ONCE IV Last administered on 09:55; Start 03/09/17 at 10:00; Stop 03/09/17 at 10:59; Status DC Ondansetron HCl (Zofran) 4 mg PRN Q8HRS PRN IV NAUSEA/VOMITING; Start 03/09/17 at 10:30; Stop 03/10/17 at 10:29; Status DC Meropenem 500 mg/ Sodium Chloride 50 ml @ 100 mls/hr Q8HRS IV Last administered on 03/16/17 06:09; Start 03/09/17 at 13:00; Stop 03/16/17 at 12: 59; Status DC Acetaminophen (Tylenol) 650 mg PRN QID PRN PO MILD PAIN / TEMP Last administered on 03/30/17 17:43; Start 03/09/17 at 20:30 Aspirin (Children'S Aspirin) 81 mg DAILY PO Last administered on 04/07/17 08: 49; Start 03/10/17 at 15:00 Clopidogrel Bisulfate (Plavix) 75 mg DAILY PO Last administered on 03/19/17 10:00; Start 03/10/17 at 15:00; Stop 03/22/17 at 09:10; Status DC Ferrous Sulfate (Feosol) 325 mg DAILY PO Last administered on 04/07/17 08:49; Start 03/10/17 at 15:00 Metoprolol Tartrate (Lopressor) 12.5 mg BID PO Last administered on 03/10/17 16:01; Start 03/10/17 at 15:00; Stop 03/10/17 at 21:01; Status DC Diclofenac Sodium (Voltaren) 75 mg DAILY PO Last administered on 03/23/17 09: 23; Start 03/10/17 at 14:30; Stop 03/29/17 at 10:50; Status DC Famotidine (Pepcid) 20 mg QHS PO Last administered on 03/24/17 21:20; Start 03/10/17 at 21:00; Stop 03/26/17 at 09:35; Status DC Glimepiride (Amaryl) 1 mg DAILY PO Last administered on 03/13/17 09:25; Start 03/11/17 at 15:00; Stop 03/13/17 at 17:02; Status DC Sodium Chloride 1,000 ml @ 100 mls/hr 1X ONCE IV Last administered on 21:00; Start 03/10/17 at 21:00; Stop 03/11/17 at 06:59; Status DC Lidocaine/Sodium Bicarbonate (Buffered Lidocaine 1%) 20 ml STK-MED ONCE IJ ; Start 03/12/17 at 13:05; Stop 03/12/17 at 13:06; Status DC Fentanyl Citrate (Fentanyl 2ml Vial) 100 mcg STK-MED ONCE .ROUTE ; Start at 13:20; Stop 03/12/17 at 13:21; Status DC Midazolam HCl (Versed) 2 mg STK-MED ONCE .ROUTE ; Start 03/12/17 at 13:20; Stop 03/12/17 at 13:21; Status DC Flumazenil (Romazicon) 0.5 mg STK-MED ONCE IV ; Start 03/12/17 at 13:20; Stop 03/12/17 at 13:21; Status DC Naloxone HCl (Narcan) 0.4 mg STK-MED ONCE .ROUTE ; Start 03/12/17 at 13:20; Stop 03/12/17 at 13:21; Status DC Lidocaine/Sodium Bicarbonate (Buffered Lidocaine 1%) 20 ml 1X ONCE IJ Last administered on 03/12/17 13:50; Start 03/12/17 at 13:30; Stop 03/12/17 at 13:33 ; Status DC Midazolam HCl (Versed) 2 mg 1X ONCE IV Last administered on 03/12/17 13:50; Start 03/12/17 at 13:30; Stop 03/12/17 at 13:33; Status DC Fentanyl Citrate (Fentanyl 2ml Vial) 100 mcg 1X ONCE IV Last administered on 03/12/17 13:50; Start 03/12/17 at 13:30; Stop 03/12/17 at 13:33; Status DC Lactobacillus Rhamnosus (Culturelle) 1 cap BID PO Last administered on 21:20; Start 03/12/17 at 21:00; Stop 03/25/17 at 21:06; Status DC Acetaminophen/ Hydrocodone Bitart (Lortab 7.5/325) 1 tab PRN Q6HRS PRN PO MODERATE - SEVERE PAIN Last administered on 04/07/17 08:48; Start 03/12/17 at 18:15 Ondansetron HCl (Zofran) 4 mg PRN Q6HRS PRN IV NAUSEA/VOMITING, 1ST CHOICE Last administered on 03/25/17 04:53; Start 03/13/17 at 09:00 Furosemide (Lasix) 40 mg QODAY PO Last administered on 03/22/17 09:39; Start 03/14/17 at 09:00; Stop 03/26/17 at 09:00; Status DC Glimepiride (Amaryl) 1 mg DAILY08 PO Last administered on 03/22/17 09:40; Start 03/14/17 at 08:00; Stop 03/23/17 at 08:52; Status DC Linezolid (Zyvox) 600 mg BID PO Last administered on 03/24/17 21:20; Start 03/14/17 at 13:15; Stop 03/25/17 at 10:49; Status DC Meropenem (Merrem) 500 mg Q8HRS IVP Last administered on 03/30/17 06:04; Start 03/16/17 at 14:00; Stop 03/30/17 at 07:49; Status DC Iohexol (Omnipaque 240 Mg/ml) 50 ml STK-MED ONCE .ROUTE ; Start 03/19/17 at 13: 11; Stop 03/19/17 at 13:12; Status DC Iohexol (Omnipaque 240 Mg/ml) 10 ml 1X ONCE IJ Last administered on 14:07; Start 03/19/17 at 14:00; Stop 03/19/17 at 14:01; Status DC Info (Do NOT chart on this entry -- for MONITORING) 1 each PRN DAILY PRN MC SEE COMMENTS; Start 03/19/17 at 14:00; Stop 03/21/17 at 13:59; Status DC Iohexol (Omnipaque 240 Mg/ml) 50 ml STK-MED ONCE .ROUTE ; Start 03/19/17 at 13: 55; Stop 03/19/17 at 13:56; Status DC Fluconazole (Diflucan) 200 mg DAILY PO Last administered on 03/23/17 09:24; Start 03/22/17 at 09:30; Stop 03/25/17 at 10:51; Status DC Metoprolol Succinate (Toprol Xl) 12.5 mg DAILY PO Last administered on 08:48; Start 03/23/17 at 09:00 Glimepiride (Amaryl) 0.5 mg DAILY08 PO ; Start 03/24/17 at 08:00; Stop at 13:05; Status DC Morphine Sulfate 1 mg PRN Q10MIN PRN IV SEVERE PAIN; Start 03/26/17 at 07:00; Stop 03/26/17 at 07:00; Status DC Ringer's Solution 1,000 ml @ 30 mls/hr Q24H IV ; Start 03/26/17 at 07:00; Stop 03/26/17 at 07:00; Status DC Lidocaine HCl (Xylocaine-Mpf 1% Vial) 2 ml PRN 1X PRN ID PRIOR TO IV START; Start 03/26/17 at 07:00; Stop 03/26/17 at 07:00; Status DC Hydromorphone HCl (Dilaudid) 0.5 mg PRN Q10MIN PRN IV SEV PAIN, Second choice; Start 03/26/17 at 07:00; Stop 03/27/17 at 06:59; Status Cancel Prochlorperazine Edisylate (Compazine) 5 mg PACU PRN PRN IV NAUSEA, MRX1 Last administered on 03/25/17 07:45; Start 03/26/17 at 07:00; Stop 03/26/17 at 07 :00; Status DC Morphine Sulfate 1 mg PRN Q10MIN PRN IV SEVERE PAIN; Start 03/24/17 at 07:45; Stop 03/25/17 at 07:44; Status DC Ringer's Solution 1,000 ml @ 30 mls/hr Q24H IV Last administered on 14:15; Start 03/24/17 at 07:32; Stop 03/24/17 at 19:31; Status DC Lidocaine HCl (Xylocaine-Mpf 1% Vial) 2 ml 1X PRN PRN ID IV START; Start 03/24 at 07:45; Stop 03/25/17 at 07:44; Status DC Hydromorphone HCl (Dilaudid) 0.5 mg PRN Q10MIN PRN IV SEV PAIN, Second choice; Start 03/24/17 at 07:45; Stop 03/25/17 at 07:44; Status DC Prochlorperazine Edisylate (Compazine) 5 mg PACU PRN PRN IV NAUSEA, MRX1; Start 03/24/17 at 07:45; Stop 03/25/17 at 07:44; Status DC Bupivacaine HCl/ Epinephrine Bitart (Sensorcain-Mpf Epi 0.5%-[id number]) 30 ml STK -MED ONCE .ROUTE Last administered on 03/24/17 15:56; Start 03/24/17 at 10: 28; Stop 03/24/17 at 10:29; Status DC Neostigmine Methylsulfate (Bloxiverz) 10 mg STK-MED ONCE .ROUTE ; Start at 14:38; Stop 03/24/17 at 14:39; Status DC Rocuronium Andrews (Zemuron) 50 mg STK-MED ONCE .ROUTE ; Start 03/24/17 at 14: 38; Stop 03/24/17 at 14:39; Status DC Fentanyl Citrate (Fentanyl 2ml Vial) 100 mcg STK-MED ONCE .ROUTE ; Start at 14:38; Stop 03/24/17 at 14:39; Status DC Phenylephrine HCl 1 mg STK-MED ONCE IV ; Start 03/24/17 at 14:40; Stop at 14:41; Status DC Lidocaine HCl (Lidocaine Pf 2% Vial) 5 ml STK-MED ONCE .ROUTE ; Start 03/24/17 at 14:40; Stop 03/24/17 at 14:41; Status DC Dexamethasone Sodium Phosphate (Decadron) 20 mg STK-MED ONCE .ROUTE ; Start at 14:40; Stop 03/24/17 at 14:41; Status DC Ondansetron HCl (Zofran) 4 mg STK-MED ONCE .ROUTE ; Start 03/24/17 at 14:40; Stop 03/24/17 at 14:41; Status DC Propofol 20 ml @ As Directed STK-MED ONCE IV ; Start 03/24/17 at 14:40; Stop 03/24/17 at 14:41; Status DC Glycopyrrolate (Robinul) 1 mg STK-MED ONCE .ROUTE ; Start 03/24/17 at 15:11; Stop 03/24/17 at 15:12; Status DC Rocuronium Andrews (Zemuron) 50 mg STK-MED ONCE .ROUTE ; Start 03/24/17 at 15: 53; Stop 03/24/17 at 15:54; Status DC Fentanyl Citrate (Fentanyl 2ml Vial) 100 mcg STK-MED ONCE .ROUTE ; Start at 16:01; Stop 03/24/17 at 16:02; Status DC Morphine Sulfate 10 mg STK-MED ONCE .ROUTE ; Start 03/24/17 at 16:02; Stop at 16:03; Status DC Albumin Human 500 ml @ As Directed STK-MED ONCE IV ; Start 03/24/17 at 17:03; Stop 03/24/17 at 17:04; Status DC Phenylephrine HCl (Corky-Synephrine Inj) 10 mg STK-MED ONCE .ROUTE ; Start at 17:27; Stop 03/24/17 at 17:28; Status DC Rocuronium Andrews (Zemuron) 100 mg STK-MED ONCE .ROUTE ; Start 03/24/17 at 17: 57; Stop 03/24/17 at 17:58; Status DC Enoxaparin Sodium (Lovenox 40mg Syringe) 40 mg Q24H SQ Last administered on 20:51; Start 03/24/17 at 20:45; Stop 03/26/17 at 19:34; Status DC Sodium Chloride (Normal Saline Flush) 3 ml QSHIFT PRN IV AFTER MEDS AND BLOOD DRAWS; Start 03/24/17 at 20:45 Ringer's Solution 1,000 ml @ 100 mls/hr Q10H IV Last administered on 12:32; Start 03/24/17 at 20:43; Stop 03/25/17 at 16:52; Status DC Naloxone HCl (Narcan) 0.4 mg PRN Q2MIN PRN IV SEE INSTRUCTIONS; Start at 20:45 Sodium Chloride 1,000 ml @ 25 mls/hr Q24H IV Last administered on 03/27/17 12:08; Start 03/24/17 at 20:43 Hydromorphone HCl 30 ml @ 0 mls/hr CONT PRN PRN IV PROTOCOL Last administered on 03/24/17 23:16; Start 03/24/17 at 20:45 Prochlorperazine Edisylate (Compazine) 5 mg PRN Q4HRS PRN IV NAUSEA/VOMITING, 2ND CHOICE; Start 03/25/17 at 07:45 Pantoprazole Sodium (PROTONIX VIAL for IV PUSH) 40 mg DAILYAC IVP Last administered on 04/07/17 11:45; Start 03/25/17 at 10:15 Linezolid 300 ml @ 300 mls/hr Q12HR IV Last administered on 03/26/17 20:54; Start 03/25/17 at 11:00; Stop 03/27/17 at 08:05; Status DC Fluconazole/ Sodium Chloride 100 ml @ 100 mls/hr Q24H IV Last administered on 04/07/17 11:52; Start 03/25/17 at 11:00; Stop 04/07/17 at 13:39; Status DC Dextrose/Lactated Ringer's 1,000 ml @ 75 mls/hr [id number] IV Last administered on 04/03/17 08:54; Start 03/25/17 at 17:00; Stop 04/04/17 at 09:23; Status DC Famotidine (Pepcid Vial) 40 mg QHS IVP Last administered on 03/28/17 21:35; Start 03/25/17 at 21:00; Stop 03/29/17 at 08:02; Status DC Lorazepam (Ativan) 0.5 mg 1X ONCE IV ; Start 03/26/17 at 07:00; Stop at 07:01; Status Cancel Lorazepam (Ativan) 0.5 mg PRN Q8HRS PRN PO ANXIETY / AGITATION; Start at 07:00; Status Cancel Furosemide (Lasix) 40 mg 1X ONCE IVP Last administered on 03/26/17 09:54; Start 03/26/17 at 09:00; Stop 03/26/17 at 09:01; Status DC Furosemide (Lasix) 20 mg DAILY IVP Last administered on 03/30/17 09:29; Start 03/27/17 at 09:00; Stop 03/31/17 at 12:22; Status DC Digoxin (Lanoxin) 250 mcg 1X ONCE IV Last administered on 03/26/17 15:06; Start 03/26/17 at 15:15; Stop 03/26/17 at 15:16; Status DC Iohexol (Omnipaque 300 Mg/ml) 75 ml 1X ONCE IV Last administered on 16:41; Start 03/26/17 at 16:45; Stop 03/26/17 at 16:46; Status DC Info (Do NOT chart on this entry -- for MONITORING) 1 each PRN DAILY PRN MC SEE COMMENTS; Start 03/26/17 at 16:45; Stop 03/28/17 at 16:44; Status DC Norepinephrine Bitartrate 250 ml @ As Directed STK-MED ONCE IV ; Start at 17:42; Stop 03/26/17 at 17:43; Status DC Norepinephrine Bitartrate 250 ml @ 0 mls/hr CONT PRN IV SEE I/O RECORD Last administered on 03/26/17 18:01; Start 03/26/17 at 18:00; Stop 04/04/17 at 09 :57; Status DC Enoxaparin Sodium (Lovenox Per Pharmacy Treatment Dosing) 1 each PRN DAILY PRN MC SEE COMMENTS; Start 03/26/17 at 19:30; Stop 03/28/17 at 12:38; Status DC Enoxaparin Sodium (Lovenox 80mg Syringe) 80 mg Q12HR SQ Last administered on 21:51; Start 03/26/17 at 20:00; Stop 03/28/17 at 15:36; Status DC Daptomycin 460 mg/ Sodium Chloride 50 ml @ 100 mls/hr Q24H IV Last administered on 04/07/17 11:48; Start 03/27/17 at 09:00 Digoxin (Lanoxin) 250 mcg 1X ONCE IV Last administered on 03/27/17 12:09; Start 03/27/17 at 12:00; Stop 03/27/17 at 12:01; Status DC Insulin Detemir (Levemir) 5 units QHS SQ Last administered on 04/04/17 21:30 ; Start 03/27/17 at 21:00; Stop 04/05/17 at 09:34; Status DC Albumin Human 100 ml @ 100 mls/hr Q8H IV Last administered on 03/29/17 00:42 ; Start 03/28/17 at 09:00; Stop 03/29/17 at 01:59; Status DC Lorazepam (Ativan) 1 mg PRN Q6HRS PRN PO ANXIETY / AGITATION Last administered on 04/07/17 05:43; Start 03/28/17 at 16:00 Iohexol (Omnipaque 300 Mg/ml) 75 ml 1X ONCE IV Last administered on 16:00; Start 03/28/17 at 16:00; Stop 03/28/17 at 16:02; Status DC Info (Do NOT chart on this entry -- for MONITORING) 1 each PRN DAILY PRN MC SEE COMMENTS; Start 03/28/17 at 16:15; Stop 03/30/17 at 16:14; Status DC Fentanyl Citrate (Fentanyl 2ml Vial) 50 mcg PRN Q4HRS PRN IV PAIN Last administered on 04/01/17 08:14; Start 03/29/17 at 09:45 Ciprofloxacin/ Dextrose 200 ml @ 200 mls/hr Q12HR IV Last administered on 08:58; Start 03/30/17 at 09:00; Stop 04/04/17 at 10:45; Status DC Lorazepam (Ativan) 0.5 mg Q12HR PO Last administered on 04/07/17 08:48; Start 03/30/17 at 21:00 Dopamine HCl/ Dextrose 250 ml @ 15.155 mls/ hr CONT PRN IV SEE I/O RECORD Last administered on 04/06/17 15:44; Start 03/31/17 at 13:00 Info 1 each PRN DAILY PRN MC SEE COMMENTS Last administered on 04/07/17 11:33 ; Start 04/03/17 at 12:15 Sodium Chloride 90 meq/Potassium Chloride 50 meq/ Potassium Phosphate 20.4 mmol/ Magnesium Sulfate 10 meq/ Calcium Gluconate 10 meq/ Multivitamins 10 ml/Chromium / Copper/Manganese/ Seleni/Zn 1 ml/ Total Parenteral Nutrition/Amino Acids/ Dextrose/ Fat Emulsion Intravenous 1,512 ml @ 63 mls/hr TPN CONT IV Last administered on 04/03/17 21:38; Start 04/03/17 at 22:00; Stop 04/04/17 at 21 :59; Status DC Levofloxacin/ Dextrose 100 ml @ 100 mls/hr Q24H IV Last administered on 21:47; Start 04/04/17 at 21:00; Stop 04/07/17 at 13:39; Status DC Furosemide (Lasix) 40 mg DAILY IVP Last administered on 04/07/17 11:46; Start 04/04/17 at 12:00 Sodium Chloride 90 meq/Potassium Chloride 50 meq/ Potassium Phosphate 20.4 mmol/ Magnesium Sulfate 16 meq/ Calcium Gluconate 10 meq/ Multivitamins 10 ml/Chromium / Copper/Manganese/ Seleni/Zn 1 ml/ Total Parenteral Nutrition/Amino Acids/ Dextrose/ Fat Emulsion Intravenous 1,512 ml @ 63 mls/hr TPN CONT IV Last administered on 04/04/17 21:16; Start 04/04/17 at 22:00; Stop 04/05/17 at 21 :59; Status DC Insulin Detemir (Levemir) 20 units QHS SQ Last administered on 04/06/17 21:47 ; Start 04/05/17 at 21:00 Insulin Detemir (Levemir) 10 units 1X ONCE SQ Last administered on 04/05/17 14:12; Start 04/05/17 at 09:45; Stop 04/05/17 at 09:46; Status DC Sodium Chloride 90 meq/Potassium Chloride 50 meq/ Potassium Phosphate 20.4 mmol/ Magnesium Sulfate 24 meq/ Calcium Gluconate 10 meq/ Multivitamins 10 ml/Chromium / Copper/Manganese/ Seleni/Zn 1 ml/ Total Parenteral Nutrition/Amino Acids/ Dextrose/ Fat Emulsion Intravenous 1,512 ml @ 63 mls/hr TPN CONT IV Last administered on 04/05/17 20:55; Start 04/05/17 at 22:00; Stop 04/06/17 at 21: 59; Status DC Iohexol (Omnipaque 300 Mg/ml) 75 ml 1X ONCE IV ; Start 04/05/17 at 13:00; Stop 04/05/17 at 13:01; Status DC Iohexol (Omnipaque 240 Mg/ml) 30 ml 1X ONCE PO ; Start 04/05/17 at 13:00; Stop 04/05/17 at 13:01; Status DC Info (Do NOT chart on this entry -- for MONITORING) 1 each PRN DAILY PRN MC SEE COMMENTS; Start 04/05/17 at 13:00; Stop 04/07/17 at 12:59; Status DC Sodium Chloride 90 meq/Potassium Chloride 50 meq/ Potassium Phosphate 20.4 mmol/ Magnesium Sulfate 24 meq/ Calcium Gluconate 10 meq/ Multivitamins 10 ml/Chromium / Copper/Manganese/ Seleni/Zn 1 ml/ Total Parenteral Nutrition/Amino Acids/ Dextrose/ Fat Emulsion Intravenous 1,512 ml @ 63 mls/hr TPN CONT IV Last administered on 04/06/17 21:45; Start 04/06/17 at 22:00; Stop 04/07/17 at 21:59 Lidocaine/Sodium Bicarbonate (Buffered Lidocaine 1%) 20 ml STK-MED ONCE IJ ; Start 04/06/17 at 14:28; Stop 04/06/17 at 14:29; Status DC Fentanyl Citrate (Fentanyl 2ml Vial) 100 mcg STK-MED ONCE .ROUTE ; Start at 14:45; Stop 04/06/17 at 14:46; Status DC Midazolam HCl (Versed) 2 mg STK-MED ONCE .ROUTE ; Start 04/06/17 at 14:45; Stop 04/06/17 at 14:46; Status DC Flumazenil (Romazicon) 0.5 mg STK-MED ONCE IV ; Start 04/06/17 at 14:45; Stop 04/06/17 at 14:46; Status DC Naloxone HCl (Narcan) 0.4 mg STK-MED ONCE .ROUTE ; Start 04/06/17 at 14:45; Stop 04/06/17 at 14:46; Status DC Dopamine HCl/ Dextrose 250 ml @ As Directed STK-MED ONCE IV ; Start 04/06/17 at 14:50; Stop 04/06/17 at 14:51; Status DC Lidocaine/Sodium Bicarbonate (Buffered Lidocaine 1%) 7 ml 1X ONCE IJ Last administered on 04/06/17 15:20; Start 04/06/17 at 15:30; Stop 04/06/17 at 15:31 ; Status DC Sodium Chloride 90 meq/Potassium Chloride 50 meq/ Potassium Phosphate 13.6 mmol/ Magnesium Sulfate 20 meq/ Calcium Gluconate 10 meq/ Multivitamins 10 ml/Chromium / Copper/Manganese/ Seleni/Zn 1 ml/ Total Parenteral Nutrition/Amino Acids/ Dextrose/ Fat Emulsion Intravenous 1,512 ml @ 63 mls/hr TPN CONT IV ; Start 04/07/17 at 22:00; Stop 04/08/17 at 21:59 Micafungin Sodium 100 mg/Sodium Chloride 100 ml @ 100 mls/hr Q24H IV Last administered on 04/07/17 15:35; Start 04/07/17 at 14:00 Metronidazole 100 ml @ 100 mls/hr Q8HRS IV Last administered on 04/07/17 15: 34; Start 04/07/17 at 14:00 Cefepime HCl 1 gm/ Dextrose 50 ml @ 100 mls/hr Q8HRS IV ; Start 04/07/17 at 14: 00; Status UNV Cefepime HCl (Maxipime) 1 gm Q8HRS IVP Last administered on 04/07/17t 15:34; Start 04/07/17 at 14:00 Active Scripts Active Reported Flagyl (Metronidazole) 500 Mg Tablet 1 Tab PO BID Cefpodoxime Proxetil 200 Mg Tablet 1 Tab PO BID Ferrous Sulfate 325 Mg Tablet 1 Tab PO DAILY Lasix (Furosemide) 40 Mg Tablet 40 Mg PO QODAY Potassium Chloride 10 Meq Capsule.er 10 Meq PO QODAY Metoprolol Tartrate 25 Mg Tablet 12.5 Mg PO BID Atorvastatin Calcium 40 Mg Tablet 40 Mg PO HS Clopidogrel (Clopidogrel Bisulfate) 75 Mg Tablet 1 Tab PO DAILY Diclofenac Sodium 75 Mg Tablet.dr 75 Mg PO DAILY Ranitidine Hcl 150 Mg Tablet 1 Tab PO BID Aspirin 81 Mg Tab.chew 1 Tab PO DAILY Vitals/I & O Vital Sign - Last 24 Hours 04/06/17 04/06/17 04/06/17 04/06/17 16:00 16:06 16:15 16:30 Pulse 100 104 98 B/P (MAP) 92/54 (67) 92/57 (69) 92/56 (68) Pulse Ox 100 O2 Delivery BiPAP/CPAP 04/06/17 04/06/17 04/06/17 04/06/17 16:45 17:35 19:00 19:30 Temp 99.3 99.3 Pulse 98 108 Resp 30 B/P (MAP) 125/78 (94) 114/54 (74) Pulse Ox 100 99 100 O2 Delivery BiPAP/CPAP BiPAP/CPAP BiPAP/CPAP O2 Flow Rate 5.0 04/06/17 04/06/17 04/06/17 04/06/17 20:30 20:30 23:08 23:42 Temp 97.4 97.4 Pulse 106 Resp 32 20 B/P (MAP) 102/56 (71) Pulse Ox 98 O2 Delivery Bi-pap BiPAP/CPAP BiPAP/CPAP O2 Flow Rate 5.0 5.0 04/07/17 04/07/17 04/07/17 04/07/17 00:12 01:15 03:41 03:46 Temp 98.3 98.3 Pulse 91 Resp 40 B/P (MAP) 114/61 (78) Pulse Ox 98 98 98 100 O2 Delivery BiPAP/CPAP BiPAP/CPAP BiPAP/CPAP BiPAP/CPAP O2 Flow Rate 5.0 04/07/17 04/07/17 04/07/17 04/07/17 06:14 06:18 07:31 08:00 Temp 98.6 98.6 Pulse 103 Resp 26 28 B/P (MAP) 131/75 (93) Pulse Ox 97 98 O2 Delivery BiPAP/CPAP BiPAP/CPAP Bi-pap O2 Flow Rate 5.0 04/07/17 04/07/17 04/07/17 04/07/17 08:00 08:48 08:48 09:59 Pulse 103 Resp 40 22 B/P (MAP) 131/75 Pulse Ox 97 O2 Delivery Nasal Cannula BiPAP/CPAP O2 Flow Rate 5.0 5.0 04/07/17 04/07/17 04/07/17 11:02 11:32 13:26 Temp 101.7 98.1 101.7 98.1 Pulse 85 Resp 22 B/P (MAP) 87/44 (58) Pulse Ox 99 99 O2 Delivery BiPAP/CPAP BiPAP/CPAP Intake and Output 04/06/17 04/06/17 04/07/17 15:00 23:00 07:00 Intake Total 557 ml 200 ml Output Total 2200 ml 125 ml Balance -1643 ml 75 ml DANNY MEZA MD Apr 07, 2017 16:00
[2017-04-07 16:12] LABS: BILIRUBIN,URINE NEGATIVE (NEG); GLUCOSE,URINE NEGATIVE (NEG); NITRITE,URINE NEGATIVE (NEG); PROTEIN,URINE NEGATIVE (NEG-TRACE); UROBILINOGEN,URINE 0.2 mg/dL (0.2 mg/dL)
[2017-04-07 16:30] LABS: BACTERIA,URINE FEW /HPF (0-FEW); SQUAMOUS EPITHELIAL CELL,UR FEW /LPF; WBC,URINE RARE /HPF (0-4)
[2017-04-07 19:00] VITALS: BP 109/47
[2017-04-07] MEDS: IV NORMAL SALINE 1000ML BAG 1,000 ML IV SCH (20:43)
[2017-04-07] MEDS: INSULIN DETEMIR 300 UNITS/3 ML INSULN.PEN. SQ SCH (21:40)
[2017-04-07] MEDS ORDERED: DEXTROSE 70% IV SCH ×10 (22:00)
[2017-04-07] MEDS ORDERED: AMINO ACIDS IV SCH ×10 (22:00)
[2017-04-07] MEDS ORDERED: TOTAL PARENTERAL NUTRITION IV SCH ×10 (22:00)
[2017-04-07] MEDS ORDERED: [UNRECOGNIZED DRUG - OTHER] IV SCH ×10 (22:00)
[2017-04-07 23:00] VITALS: BP 115/45
[2017-04-08] VITALS (11 sets, daily range): BP systolic 93–117; BP diastolic 35–57
[2017-04-08] MEDS: CEFEPIME HCL IV Push 1 GM VIAL. IVP SCH ×3 (05:44→21:12)
[2017-04-08 06:14] LABS: BASO % 0 % (0-3); EOS % 0 % (0-3); HEMATOCRIT 21.5 % (36.0-47.0); LYMPH # 0.7 x10^3/uL (1.0-4.8); LYMPH % 9 % (24-48); MEAN CORPUSCULAR HEMOGLOBIN 28 pg (25-35); MEAN CORPUSCULAR HGB CONC 32 g/dL (31-37); MEAN CORPUSCULAR VOLUME 87 fL (79-100); MONO % 8 % (0-9); NEUT % 83 % (31-73); PLATELET COUNT 361 x10^3/uL (140-400); RED BLOOD COUNT 2.48 x10^6/uL (3.50-5.40); RED CELL DISTRIBUTION WIDTH 17.9 % (11.5-14.5); WHITE BLOOD COUNT 7.6 x10^3/uL (4.0-11.0)
[2017-04-08 06:18] LABS: HEMOGLOBIN 6.9 g/dL (12.0-15.5)
[2017-04-08 06:31] LABS: CALCIUM 7.8 mg/dL (8.5-10.1); CREATININE 0.7 mg/dL (0.6-1.0); GFR 82.5; POTASSIUM 4.2 mmol/L (3.5-5.1)
[2017-04-08] MEDS: TPN PER PHARMACY MC PRN (07:38)
[2017-04-08] MEDS: NORMAL SALINE IV SCH (08:56)
[2017-04-08] MEDS: DAPTOMYCIN IV SCH (08:56)
[2017-04-08] MEDS: FUROSEMIDE 40 MG/4 ML VIAL. IVP SCH (08:56)
[2017-04-08] MEDS: PANTOPRAZOLE IV PUSH 40 MG VIAL. IVP SCH (08:56)
[2017-04-08] MEDS: METOPROLOL SUCC 24HR ER 25 MG TAB.ER.24H. PO SCH (08:57)
[2017-04-08] MEDS: HYDROcodone/APAP 7.5/325MG 1 TAB TABLET PO PRN (09:00)
[2017-04-08] MEDS: FERROUS SULFATE 325 MG TABLET. PO SCH (09:00)
[2017-04-08] MEDS: ASPIRIN CHEWABLE 81 MG TABLET. PO SCH (09:00)
[2017-04-08] MEDS: LORazepam 0.5 MG TABLET PO SCH ×2 (09:00→21:09)
--- NOTE | 2017-04-08 10:04 | PDOC ---
Infectious Disease Note Subjective Subjective Feeling little better over all today, less anxious c/o abdominal pain and mild nausea. No vomiting + cough, denies SOA or CP Diminished appetite, trying some lemon pie TPN Fever Tmax 101.7 ROS ROS GEN: Denies chills, sweats NEURO: Denies confusion, dizziness Vital Sign Vital Signs Vital Signs Date Time Temp Pulse Resp B/P (MAP) Pulse Ox O2 Delivery O2 Flow Rate FiO2 04/08/17 09:00 20 99 BiPAP/CPAP 5.0 04/08/17 08:57 101 97/35 04/08/17 07:25 99.6 99.6 Physical Exam PHYSICAL EXAM GENERAL: Propped up in bed, less work of breathing HEENT: PERRL, Oral cavity dry LUNGS: Improved aeration CV: S1 and S2 ABD: BS active, soft, NT light palpation. Ostomy + output, distal incision dehiscence, + drainage. + drain intact : [place] EXT: Trace edema BLE, no cyanosis SKIN: Without rash, warm to touch SKIN CARE THERAPIST: Alert, oriented, following commands RUE-PICC. clean Labs Lab Laboratory Tests Test 04/07/17 16:00 04/07/17 21:10 04/08/17 06:00 04/08/17 07:23 Urine Collection Type Unknown Urine Color Yellow Urine Clarity Clear Urine pH 5.0 Urine Specific [place] 1.015 Urine Protein Negative mg/dL (NEG-TRACE) Urine Glucose (UA) Negative mg/dL (NEG) Urine Ketones (Stick) Negative mg/dL (NEG) Urine Blood Moderate (NEG) Urine Nitrite Negative (NEG) Urine Bilirubin Negative (NEG) Urine Urobilinogen Dipstick 0.2 mg/dL (0.2 mg/dL) Urine Leukocyte Esterase Negative (NEG) Urine RBC 11-20 /HPF (0-2) Urine WBC Rare /HPF (0-4) Urine Squamous Epithelial Cells Few /LPF Urine Bacteria Few /HPF (0-FEW) Urine Hyaline Casts Moderate /HPF Urine Mucus Mod /LPF Glucose (Fingerstick) 218 mg/dL (70-99) 169 mg/dL (70-99) White Blood Count 7.6 x10^3/uL (4.0-11.0) Red Blood Count 2.48 x10^6/uL (3.50-5.40) Hemoglobin 6.9 g/dL (12.0-15.5) Hematocrit 21.5 % (36.0-47.0) Mean Corpuscular Volume 87 fL (79-100) Mean Corpuscular Hemoglobin 28 pg (25-35) Mean Corpuscular Hemoglobin Concent 32 g/dL (31-37) Red Cell Distribution Width 17.9 % (11.5-14.5) Platelet Count 361 x10^3/uL (140-400) Neutrophils (%) (Auto) 83 % (31-73) Lymphocytes (%) (Auto) 9 % (24-48) Monocytes (%) (Auto) 8 % (0-9) Eosinophils (%) (Auto) 0 % (0-3) Basophils (%) (Auto) 0 % (0-3) Neutrophils # (Auto) 6.3 x10^3uL (1.8-7.7) Lymphocytes # (Auto) 0.7 x10^3/uL (1.0-4.8) Monocytes # (Auto) 0.6 x10^3/uL (0.0-1.1) Eosinophils # (Auto) 0.0 x10^3/uL (0.0-0.7) Basophils # (Auto) 0.0 x10^3/uL (0.0-0.2) Sodium Level 137 mmol/L (136-145) Potassium Level 4.2 mmol/L (3.5-5.1) Chloride Level 101 mmol/L (98-107) Carbon Dioxide Level 27 mmol/L (21-32) Anion Gap 9 (6-14) Blood Urea Nitrogen 20 mg/dL (7-20) Creatinine 0.7 mg/dL (0.6-1.0) Estimated GFR (Cockcroft-Gault) 82.5 Glucose Level 187 mg/dL (70-99) Calcium Level 7.8 mg/dL (8.5-10.1) Micro Abdominal fluid, 04/06 GRAM STAIN Final WBCS MANY GRAM POSITIVE COCCI MANY GRAM POSITIVE RODS MANY GRAM NEGATIVE RODS MANY Objective Assessment Fever, UA neg Acute Anemia s/p lap converted to open exploration, JAIRO, removal of infected mesh, subtotal colectomy, SBR and hernia repair, 03/24. Now new 10.0 x 5.5 x 18.0 cm fluid collection with air-fluid levels in the right lower quadrant. s/p drain placement, 04/06. GS: polymicrobial Wound dehiscence [id number] respiratory failure, s/p surgery, now on BiPAP, improving slowly - pleural effusions CXR slight improvement Leukocytosis - improved Thrombocytopenia, resolved EC fistula Abdominal abscess, measuring 6.4 x 4.9 cm. s/p drain 03/12. Klebsiella ( R to Zosyn, S Cipro/Levo), VRE (R PCN) and PSAE ( R to ticarcillin only otherwise sensitive, S Cipro/Levo) and C tropicalis -h/o Strep anginosis and Bacteroides Ventral hernia DM HTN PCN allergy/amox also - hives and swelling Plan Plan of Care Blood cult pending Micafungin, Flagyl and Cefepime 04/07 Cont Dapto CPK 209 - 04/06. continue to monitor f/u cultures and monitor WBC, temp Supportive care D/w son Attending Co-Sign Attending Co-Sign The patient was seen and interviewed as well as examined at the bedside. The chart was reviewed. The case was discussed. Agree with the plan of care. SERAFIN MOTT APRN Apr 08, 2017 10:04 [place] MD Apr 08, 2017 12:33
--- NOTE | 2017-04-08 13:34 | PDOC ---
PULMONARY PROGRESS NOTES Subjective REMAINS ON BIPAP / COMFORTABLE Vitals Vital Signs Date Time Temp Pulse Resp B/P (MAP) Pulse Ox O2 Delivery O2 Flow Rate FiO2 04/08/17 12:56 98 Nasal Cannula 5.0 04/08/17 10:30 99.7 97 32 93/52 (66) 99.7 General: Alert, No acute distress Lungs: Other (decrease bs) Cardiovascular: S1, S2 Abdomen: Soft, Other (continues to have drainage from the abdo wound,lower incision site,brownish fluid) Neuro Exam: Alert Extremities: Other (1+edema) Skin: Warm Labs Laboratory Tests Test 04/06/17 17:37 04/06/17 20:49 04/07/17 05:40 04/07/17 08:08 Glucose (Fingerstick) 146 mg/dL (70-99) 145 mg/dL (70-99) 155 mg/dL (70-99) Sodium Level 137 mmol/L (136-145) Potassium Level 4.4 mmol/L (3.5-5.1) Chloride Level 101 mmol/L (98-107) Carbon Dioxide Level 29 mmol/L (21-32) Anion Gap 7 (6-14) Blood Urea Nitrogen 16 mg/dL (7-20) Creatinine 0.7 mg/dL (0.6-1.0) Estimated GFR (Cockcroft-Gault) 82.5 Glucose Level 157 mg/dL (70-99) Calcium Level 8.4 mg/dL (8.5-10.1) Phosphorus Level 4.7 mg/dL (2.6-4.7) Magnesium Level 2.2 mg/dL (1.8-2.4) Test 04/07/17 16:00 04/07/17 21:10 04/08/17 06:00 04/08/17 07:23 Urine Collection Type Unknown Urine Color Yellow Urine Clarity Clear Urine pH 5.0 Urine Specific [place] 1.015 Urine Protein Negative mg/dL (NEG-TRACE) Urine Glucose (UA) Negative mg/dL (NEG) Urine Ketones (Stick) Negative mg/dL (NEG) Urine Blood Moderate (NEG) Urine Nitrite Negative (NEG) Urine Bilirubin Negative (NEG) Urine Urobilinogen Dipstick 0.2 mg/dL (0.2 mg/dL) Urine Leukocyte Esterase Negative (NEG) Urine RBC 11-20 /HPF (0-2) Urine WBC Rare /HPF (0-4) Urine Squamous Epithelial Cells Few /LPF Urine Bacteria Few /HPF (0-FEW) Urine Hyaline Casts Moderate /HPF Urine Mucus Mod /LPF Glucose (Fingerstick) 218 mg/dL (70-99) 169 mg/dL (70-99) White Blood Count 7.6 x10^3/uL (4.0-11.0) Red Blood Count 2.48 x10^6/uL (3.50-5.40) Hemoglobin 6.9 g/dL (12.0-15.5) Hematocrit 21.5 % (36.0-47.0) Mean Corpuscular Volume 87 fL (79-100) Mean Corpuscular Hemoglobin 28 pg (25-35) Mean Corpuscular Hemoglobin Concent 32 g/dL (31-37) Red Cell Distribution Width 17.9 % (11.5-14.5) Platelet Count 361 x10^3/uL (140-400) Neutrophils (%) (Auto) 83 % (31-73) Lymphocytes (%) (Auto) 9 % (24-48) Monocytes (%) (Auto) 8 % (0-9) Eosinophils (%) (Auto) 0 % (0-3) Basophils (%) (Auto) 0 % (0-3) Neutrophils # (Auto) 6.3 x10^3uL (1.8-7.7) Lymphocytes # (Auto) 0.7 x10^3/uL (1.0-4.8) Monocytes # (Auto) 0.6 x10^3/uL (0.0-1.1) Eosinophils # (Auto) 0.0 x10^3/uL (0.0-0.7) Basophils # (Auto) 0.0 x10^3/uL (0.0-0.2) Sodium Level 137 mmol/L (136-145) Potassium Level 4.2 mmol/L (3.5-5.1) Chloride Level 101 mmol/L (98-107) Carbon Dioxide Level 27 mmol/L (21-32) Anion Gap 9 (6-14) Blood Urea Nitrogen 20 mg/dL (7-20) Creatinine 0.7 mg/dL (0.6-1.0) Estimated GFR (Cockcroft-Gault) 82.5 Glucose Level 187 mg/dL (70-99) Calcium Level 7.8 mg/dL (8.5-10.1) Test 04/08/17 11:42 Glucose (Fingerstick) 216 mg/dL (70-99) Laboratory Tests Test 04/07/17 16:00 04/07/17 21:10 04/08/17 06:00 04/08/17 07:23 Urine Collection Type Unknown Urine Color Yellow Urine Clarity Clear Urine pH 5.0 Urine Specific [place] 1.015 Urine Protein Negative mg/dL (NEG-TRACE) Urine Glucose (UA) Negative mg/dL (NEG) Urine Ketones (Stick) Negative mg/dL (NEG) Urine Blood Moderate (NEG) Urine Nitrite Negative (NEG) Urine Bilirubin Negative (NEG) Urine Urobilinogen Dipstick 0.2 mg/dL (0.2 mg/dL) Urine Leukocyte Esterase Negative (NEG) Urine RBC 11-20 /HPF (0-2) Urine WBC Rare /HPF (0-4) Urine Squamous Epithelial Cells Few /LPF Urine Bacteria Few /HPF (0-FEW) Urine Hyaline Casts Moderate /HPF Urine Mucus Mod /LPF Glucose (Fingerstick) 218 mg/dL (70-99) 169 mg/dL (70-99) White Blood Count 7.6 x10^3/uL (4.0-11.0) Red Blood Count 2.48 x10^6/uL (3.50-5.40) Hemoglobin 6.9 g/dL (12.0-15.5) Hematocrit 21.5 % (36.0-47.0) Mean Corpuscular Volume 87 fL (79-100) Mean Corpuscular Hemoglobin 28 pg (25-35) Mean Corpuscular Hemoglobin Concent 32 g/dL (31-37) Red Cell Distribution Width 17.9 % (11.5-14.5) Platelet Count 361 x10^3/uL (140-400) Neutrophils (%) (Auto) 83 % (31-73) Lymphocytes (%) (Auto) 9 % (24-48) Monocytes (%) (Auto) 8 % (0-9) Eosinophils (%) (Auto) 0 % (0-3) Basophils (%) (Auto) 0 % (0-3) Neutrophils # (Auto) 6.3 x10^3uL (1.8-7.7) Lymphocytes # (Auto) 0.7 x10^3/uL (1.0-4.8) Monocytes # (Auto) 0.6 x10^3/uL (0.0-1.1) Eosinophils # (Auto) 0.0 x10^3/uL (0.0-0.7) Basophils # (Auto) 0.0 x10^3/uL (0.0-0.2) Sodium Level 137 mmol/L (136-145) Potassium Level 4.2 mmol/L (3.5-5.1) Chloride Level 101 mmol/L (98-107) Carbon Dioxide Level 27 mmol/L (21-32) Anion Gap 9 (6-14) Blood Urea Nitrogen 20 mg/dL (7-20) Creatinine 0.7 mg/dL (0.6-1.0) Estimated GFR (Cockcroft-Gault) 82.5 Glucose Level 187 mg/dL (70-99) Calcium Level 7.8 mg/dL (8.5-10.1) Test 04/08/17 11:42 Glucose (Fingerstick) 216 mg/dL (70-99) Medications Active Scripts Medications Dose Route/Sig Max Daily Dose Days Date Category Flagyl (Metronidazole) 500 Mg Tablet 1 Tab PO BID 03/01/17 Reported Cefpodoxime Proxetil 200 Mg Tablet 1 Tab PO BID 03/01/17 Reported Ferrous Sulfate 325 Mg Tablet 1 Tab PO DAILY 02/23/17 Reported Lasix (Furosemide) 40 Mg Tablet 40 Mg PO QODAY 02/23/17 Reported Potassium Chloride 10 Meq Capsule.er 10 Meq PO QODAY 02/23/17 Reported Metoprolol Tartrate 25 Mg Tablet 12.5 Mg PO BID 01/31/17 Reported Atorvastatin Calcium 40 Mg Tablet 40 Mg PO HS 01/31/17 Reported Clopidogrel (Clopidogrel Bisulfate) 75 Mg Tablet 1 Tab PO DAILY 08/24/15 Reported Diclofenac Sodium 75 Mg Tablet.dr 75 Mg PO DAILY 12/21/14 Reported Ranitidine Hcl 150 Mg Tablet 1 Tab PO BID 12/21/14 Reported Aspirin 81 Mg Tab.chew 1 Tab PO DAILY 04/15/14 Reported Impression . 1. Adtcl-ep-vphoymg respiratory failure, expected status post surgical intervention. SUBJECTIVE dyspnea/ Comfortable on BIPAP. suspect due to abdominal process 2. Status post laparoscopic converted to open exploration for extensive lysis of adhesion, removal of old mesh, subtotal colectomy, small bowel resection and incisional hernia repair.Now with brown drainage from wound. entero-cutaneous fistula/ abscess 3. Obesity, body mass index of 35. 4. Leukocytosis. 5. Enterocutaneous fistula. Abdominal abscess, measuring 6.4 x 4.9 cm. s/p drain 03/12. Klebsiella ( R to Zosyn, S Cipro/Levo), VRE (R PCN) and PSAE ( R to ticarcillin only otherwise sensitive, S Cipro/Levo) and C tropicalis -h/o Strep anginosis and Bacteroides 6. Fever. 7. Abdominal abscess. 8. Ventral hernia, status post repair. 9. Bilateral effusions due to low oncotic pressure/ repeat cxr 04/02 with volume loss bases, no sig. fluid to tap, small effusions on ct 04/05 10. Anxiety disorder Plan . PT REMAINS ON BIPAP/ SOME ANXIETY DISORDER WELL.SUSPECT ABDOMINAL PROCESS CONTRIBUTING TO ONGOING SUBJECTIVE DYSPNEA/ ALL ABG ADEQUATE REPEAT CT ABDOMEN/PELVIS REVIEWED/ SMALL EFFUSIONS, DOES NOT NEED TAP LASIX PRN IMPROVE NUTRITIONAL STATUS/ SEVERE MALNUTRITION VENOUS DOPPLER NEGATIVE/ CT NEGATIVE FOR PE MONITOR PLATELET / MUCH IMPROVED ANXIETY/ ON SCHEDULED ATIVAN ABDOMINAL DRAIN BY IR D/W STACI TURPIN MD Apr 08, 2017 13:34
[2017-04-08] MEDS: MICAFUNGIN 100 MG in IV NORMAL SALINE 100ML 100 ML IV SCH (13:42)
--- NOTE | 2017-04-08 14:50 | PDOC ---
PROGRESS NOTES Subjective Subjective HPI - f/u of thrombocytopenia Objective Objective Vital Signs Date Time Temp Pulse Resp B/P (MAP) Pulse Ox O2 Delivery O2 Flow Rate FiO2 04/08/17 14:37 BiPAP/CPAP 04/08/17 12:56 98 5.0 04/08/17 10:30 99.7 97 32 93/52 (66) 99.7 Intake and Output 04/08/17 07:00 Intake Total 1010 ml Output Total 1245 ml Balance -235 ml Intake Oral 100 ml IV Total 910 ml Output Urine Total 1225 ml Drainage Total 20 ml Physical Exam General: mild distress Lungs: Other (On BIPAP) Assessment Assessment Problems Medical Problems: (1) Abdominal abscess Status: Acute (2) Abdominal pain Status: Acute A/P: 1. Thrombocytopenia. Improved. Plt count 361. 2. Anemia. Most likely multifactorial. Iron studies are suggestive of anemia of chronic disease. /B12 normal. Hb worse at 6.9, monitor and transfuse as needed. 3. Abscess. Management as per primary/surgery 4. Status post laparoscopic converted to open exploration for extensive lysis of adhesion, removal of old mesh, subtotal colectomy, small bowel resection and incisional hernia repair. 5. [id number] respiratory failure, expected status post surgical intervention. Persistent dyspnea/ BIPAP - appreciate pulm f/u Comment Review of Relevant I have reviewed the following items chito (where applicable) has been applied. Labs Laboratory Tests Test 04/06/17 17:37 04/06/17 20:49 04/07/17 05:40 04/07/17 08:08 Glucose (Fingerstick) 146 mg/dL (70-99) 145 mg/dL (70-99) 155 mg/dL (70-99) Sodium Level 137 mmol/L (136-145) Potassium Level 4.4 mmol/L (3.5-5.1) Chloride Level 101 mmol/L (98-107) Carbon Dioxide Level 29 mmol/L (21-32) Anion Gap 7 (6-14) Blood Urea Nitrogen 16 mg/dL (7-20) Creatinine 0.7 mg/dL (0.6-1.0) Estimated GFR (Cockcroft-Gault) 82.5 Glucose Level 157 mg/dL (70-99) Calcium Level 8.4 mg/dL (8.5-10.1) Phosphorus Level 4.7 mg/dL (2.6-4.7) Magnesium Level 2.2 mg/dL (1.8-2.4) Test 04/07/17 16:00 04/07/17 21:10 04/08/17 06:00 04/08/17 07:23 Urine Collection Type Unknown Urine Color Yellow Urine Clarity Clear Urine pH 5.0 Urine Specific [place] 1.015 Urine Protein Negative mg/dL (NEG-TRACE) Urine Glucose (UA) Negative mg/dL (NEG) Urine Ketones (Stick) Negative mg/dL (NEG) Urine Blood Moderate (NEG) Urine Nitrite Negative (NEG) Urine Bilirubin Negative (NEG) Urine Urobilinogen Dipstick 0.2 mg/dL (0.2 mg/dL) Urine Leukocyte Esterase Negative (NEG) Urine RBC 11-20 /HPF (0-2) Urine WBC Rare /HPF (0-4) Urine Squamous Epithelial Cells Few /LPF Urine Bacteria Few /HPF (0-FEW) Urine Hyaline Casts Moderate /HPF Urine Mucus Mod /LPF Glucose (Fingerstick) 218 mg/dL (70-99) 169 mg/dL (70-99) White Blood Count 7.6 x10^3/uL (4.0-11.0) Red Blood Count 2.48 x10^6/uL (3.50-5.40) Hemoglobin 6.9 g/dL (12.0-15.5) Hematocrit 21.5 % (36.0-47.0) Mean Corpuscular Volume 87 fL (79-100) Mean Corpuscular Hemoglobin 28 pg (25-35) Mean Corpuscular Hemoglobin Concent 32 g/dL (31-37) Red Cell Distribution Width 17.9 % (11.5-14.5) Platelet Count 361 x10^3/uL (140-400) Neutrophils (%) (Auto) 83 % (31-73) Lymphocytes (%) (Auto) 9 % (24-48) Monocytes (%) (Auto) 8 % (0-9) Eosinophils (%) (Auto) 0 % (0-3) Basophils (%) (Auto) 0 % (0-3) Neutrophils # (Auto) 6.3 x10^3uL (1.8-7.7) Lymphocytes # (Auto) 0.7 x10^3/uL (1.0-4.8) Monocytes # (Auto) 0.6 x10^3/uL (0.0-1.1) Eosinophils # (Auto) 0.0 x10^3/uL (0.0-0.7) Basophils # (Auto) 0.0 x10^3/uL (0.0-0.2) Sodium Level 137 mmol/L (136-145) Potassium Level 4.2 mmol/L (3.5-5.1) Chloride Level 101 mmol/L (98-107) Carbon Dioxide Level 27 mmol/L (21-32) Anion Gap 9 (6-14) Blood Urea Nitrogen 20 mg/dL (7-20) Creatinine 0.7 mg/dL (0.6-1.0) Estimated GFR (Cockcroft-Gault) 82.5 Glucose Level 187 mg/dL (70-99) Calcium Level 7.8 mg/dL (8.5-10.1) Test 04/08/17 11:42 Glucose (Fingerstick) 216 mg/dL (70-99) Laboratory Tests Test 04/07/17 16:00 04/07/17 21:10 04/08/17 06:00 04/08/17 07:23 Urine Collection Type Unknown Urine Color Yellow Urine Clarity Clear Urine pH 5.0 Urine Specific [place] 1.015 Urine Protein Negative mg/dL (NEG-TRACE) Urine Glucose (UA) Negative mg/dL (NEG) Urine Ketones (Stick) Negative mg/dL (NEG) Urine Blood Moderate (NEG) Urine Nitrite Negative (NEG) Urine Bilirubin Negative (NEG) Urine Urobilinogen Dipstick 0.2 mg/dL (0.2 mg/dL) Urine Leukocyte Esterase Negative (NEG) Urine RBC 11-20 /HPF (0-2) Urine WBC Rare /HPF (0-4) Urine Squamous Epithelial Cells Few /LPF Urine Bacteria Few /HPF (0-FEW) Urine Hyaline Casts Moderate /HPF Urine Mucus Mod /LPF Glucose (Fingerstick) 218 mg/dL (70-99) 169 mg/dL (70-99) White Blood Count 7.6 x10^3/uL (4.0-11.0) Red Blood Count 2.48 x10^6/uL (3.50-5.40) Hemoglobin 6.9 g/dL (12.0-15.5) Hematocrit 21.5 % (36.0-47.0) Mean Corpuscular Volume 87 fL (79-100) Mean Corpuscular Hemoglobin 28 pg (25-35) Mean Corpuscular Hemoglobin Concent 32 g/dL (31-37) Red Cell Distribution Width 17.9 % (11.5-14.5) Platelet Count 361 x10^3/uL (140-400) Neutrophils (%) (Auto) 83 % (31-73) Lymphocytes (%) (Auto) 9 % (24-48) Monocytes (%) (Auto) 8 % (0-9) Eosinophils (%) (Auto) 0 % (0-3) Basophils (%) (Auto) 0 % (0-3) Neutrophils # (Auto) 6.3 x10^3uL (1.8-7.7) Lymphocytes # (Auto) 0.7 x10^3/uL (1.0-4.8) Monocytes # (Auto) 0.6 x10^3/uL (0.0-1.1) Eosinophils # (Auto) 0.0 x10^3/uL (0.0-0.7) Basophils # (Auto) 0.0 x10^3/uL (0.0-0.2) Sodium Level 137 mmol/L (136-145) Potassium Level 4.2 mmol/L (3.5-5.1) Chloride Level 101 mmol/L (98-107) Carbon Dioxide Level 27 mmol/L (21-32) Anion Gap 9 (6-14) Blood Urea Nitrogen 20 mg/dL (7-20) Creatinine 0.7 mg/dL (0.6-1.0) Estimated GFR (Cockcroft-Gault) 82.5 Glucose Level 187 mg/dL (70-99) Calcium Level 7.8 mg/dL (8.5-10.1) Test 04/08/17 11:42 Glucose (Fingerstick) 216 mg/dL (70-99) Microbiology 04/07/17 Blood Culture - Preliminary, Resulted NO GROWTH AFTER 1 DAY 04/06/17 Gram Stain - Final, Complete 03/09/17 Urine Culture - Final, Complete 03/09/17 Urine Culture Result 1 (KULDEEP) - Final, Complete 03/12/17 Fungal Culture - Final, Complete 03/12/17 Fungal Culture Result 1 - Final, Complete Medications Current Medications Ondansetron HCl (Zofran) 4 mg 1X ONCE IV Last administered on 03/09/17 08:30 ; Start 03/09/17 at 08:15; Stop 03/09/17 at 08:16; Status DC Iohexol (Omnipaque 300 Mg/ml) 75 ml 1X ONCE IV Last administered on 03/09/17 08:50; Start 03/09/17 at 08:45; Stop 03/09/17 at 08:46; Status DC Info (Do NOT chart on this entry -- for MONITORING) 1 each PRN DAILY PRN MC SEE COMMENTS; Start 03/09/17 at 08:45; Stop 03/11/17 at 08:44; Status DC Ceftriaxone Sodium 50 ml @ 100 mls/hr 1X ONCE IV ; Start 03/09/17 at 09:30; Stop 03/09/17 at 09:55; Status DC Sodium Chloride 1,000 ml @ 1,000 mls/hr 1X ONCE IV Last administered on 09:55; Start 03/09/17 at 10:00; Stop 03/09/17 at 10:59; Status DC Ondansetron HCl (Zofran) 4 mg PRN Q8HRS PRN IV NAUSEA/VOMITING; Start 03/09/17 at 10:30; Stop 03/10/17 at 10:29; Status DC Meropenem 500 mg/ Sodium Chloride 50 ml @ 100 mls/hr Q8HRS IV Last administered on 03/16/17 06:09; Start 03/09/17 at 13:00; Stop 03/16/17 at 12: 59; Status DC Acetaminophen (Tylenol) 650 mg PRN QID PRN PO MILD PAIN / TEMP Last administered on 03/30/17 17:43; Start 03/09/17 at 20:30 Aspirin (Children'S Aspirin) 81 mg DAILY PO Last administered on 04/08/17 09: 00; Start 03/10/17 at 15:00 Clopidogrel Bisulfate (Plavix) 75 mg DAILY PO Last administered on 03/19/17 10:00; Start 03/10/17 at 15:00; Stop 03/22/17 at 09:10; Status DC Ferrous Sulfate (Feosol) 325 mg DAILY PO Last administered on 04/08/17 09:00; Start 03/10/17 at 15:00 Metoprolol Tartrate (Lopressor) 12.5 mg BID PO Last administered on 03/10/17 16:01; Start 03/10/17 at 15:00; Stop 03/10/17 at 21:01; Status DC Diclofenac Sodium (Voltaren) 75 mg DAILY PO Last administered on 03/23/17 09: 23; Start 03/10/17 at 14:30; Stop 03/29/17 at 10:50; Status DC Famotidine (Pepcid) 20 mg QHS PO Last administered on 03/24/17 21:20; Start 03/10/17 at 21:00; Stop 03/26/17 at 09:35; Status DC Glimepiride (Amaryl) 1 mg DAILY PO Last administered on 03/13/17 09:25; Start 03/11/17 at 15:00; Stop 03/13/17 at 17:02; Status DC Sodium Chloride 1,000 ml @ 100 mls/hr 1X ONCE IV Last administered on 21:00; Start 03/10/17 at 21:00; Stop 03/11/17 at 06:59; Status DC Lidocaine/Sodium Bicarbonate (Buffered Lidocaine 1%) 20 ml STK-MED ONCE IJ ; Start 03/12/17 at 13:05; Stop 03/12/17 at 13:06; Status DC Fentanyl Citrate (Fentanyl 2ml Vial) 100 mcg STK-MED ONCE .ROUTE ; Start at 13:20; Stop 03/12/17 at 13:21; Status DC Midazolam HCl (Versed) 2 mg STK-MED ONCE .ROUTE ; Start 03/12/17 at 13:20; Stop 03/12/17 at 13:21; Status DC Flumazenil (Romazicon) 0.5 mg STK-MED ONCE IV ; Start 03/12/17 at 13:20; Stop 03/12/17 at 13:21; Status DC Naloxone HCl (Narcan) 0.4 mg STK-MED ONCE .ROUTE ; Start 03/12/17 at 13:20; Stop 03/12/17 at 13:21; Status DC Lidocaine/Sodium Bicarbonate (Buffered Lidocaine 1%) 20 ml 1X ONCE IJ Last administered on 03/12/17 13:50; Start 03/12/17 at 13:30; Stop 03/12/17 at 13:33 ; Status DC Midazolam HCl (Versed) 2 mg 1X ONCE IV Last administered on 03/12/17 13:50; Start 03/12/17 at 13:30; Stop 03/12/17 at 13:33; Status DC Fentanyl Citrate (Fentanyl 2ml Vial) 100 mcg 1X ONCE IV Last administered on 03/12/17 13:50; Start 03/12/17 at 13:30; Stop 03/12/17 at 13:33; Status DC Lactobacillus Rhamnosus (Culturelle) 1 cap BID PO Last administered on 21:20; Start 03/12/17 at 21:00; Stop 03/25/17 at 21:06; Status DC Acetaminophen/ Hydrocodone Bitart (Lortab 7.5/325) 1 tab PRN Q6HRS PRN PO MODERATE - SEVERE PAIN Last administered on 04/08/17 09:00; Start 03/12/17 at 18:15 Ondansetron HCl (Zofran) 4 mg PRN Q6HRS PRN IV NAUSEA/VOMITING, 1ST CHOICE Last administered on 03/25/17 04:53; Start 03/13/17 at 09:00 Furosemide (Lasix) 40 mg QODAY PO Last administered on 03/22/17 09:39; Start 03/14/17 at 09:00; Stop 03/26/17 at 09:00; Status DC Glimepiride (Amaryl) 1 mg DAILY08 PO Last administered on 03/22/17 09:40; Start 03/14/17 at 08:00; Stop 03/23/17 at 08:52; Status DC Linezolid (Zyvox) 600 mg BID PO Last administered on 03/24/17 21:20; Start 03/14/17 at 13:15; Stop 03/25/17 at 10:49; Status DC Meropenem (Merrem) 500 mg Q8HRS IVP Last administered on 03/30/17 06:04; Start 03/16/17 at 14:00; Stop 03/30/17 at 07:49; Status DC Iohexol (Omnipaque 240 Mg/ml) 50 ml STK-MED ONCE .ROUTE ; Start 03/19/17 at 13: 11; Stop 03/19/17 at 13:12; Status DC Iohexol (Omnipaque 240 Mg/ml) 10 ml 1X ONCE IJ Last administered on t 14:07; Start 03/19/17 at 14:00; Stop 03/19/17 at 14:01; Status DC Info (Do NOT chart on this entry -- for MONITORING) 1 each PRN DAILY PRN MC SEE COMMENTS; Start 03/19/17 at 14:00; Stop 03/21/17 at 13:59; Status DC Iohexol (Omnipaque 240 Mg/ml) 50 ml STK-MED ONCE .ROUTE ; Start 03/19/17 at 13: 55; Stop 03/19/17 at 13:56; Status DC Fluconazole (Diflucan) 200 mg DAILY PO Last administered on 03/23/17 09:24; Start 03/22/17 at 09:30; Stop 03/25/17 at 10:51; Status DC Metoprolol Succinate (Toprol Xl) 12.5 mg DAILY PO Last administered on t 08:57; Start 03/23/17 at 09:00 Glimepiride (Amaryl) 0.5 mg DAILY08 PO ; Start 03/24/17 at 08:00; Stop at 13:05; Status DC Morphine Sulfate 1 mg PRN Q10MIN PRN IV SEVERE PAIN; Start 03/26/17 at 07:00; Stop 03/26/17 at 07:00; Status DC Ringer's Solution 1,000 ml @ 30 mls/hr Q24H IV ; Start 03/26/17 at 07:00; Stop 03/26/17 at 07:00; Status DC Lidocaine HCl (Xylocaine-Mpf 1% Vial) 2 ml PRN 1X PRN ID PRIOR TO IV START; Start 03/26/17 at 07:00; Stop 03/26/17 at 07:00; Status DC Hydromorphone HCl (Dilaudid) 0.5 mg PRN Q10MIN PRN IV SEV PAIN, Second choice; Start 03/26/17 at 07:00; Stop 03/27/17 at 06:59; Status Cancel Prochlorperazine Edisylate (Compazine) 5 mg PACU PRN PRN IV NAUSEA, MRX1 Last administered on 03/25/17 07:45; Start 03/26/17 at 07:00; Stop 03/26/17 at 07 :00; Status DC Morphine Sulfate 1 mg PRN Q10MIN PRN IV SEVERE PAIN; Start 03/24/17 at 07:45; Stop 03/25/17 at 07:44; Status DC Ringer's Solution 1,000 ml @ 30 mls/hr Q24H IV Last administered on 14:15; Start 03/24/17 at 07:32; Stop 03/24/17 at 19:31; Status DC Lidocaine HCl (Xylocaine-Mpf 1% Vial) 2 ml 1X PRN PRN ID IV START; Start 03/24 at 07:45; Stop 03/25/17 at 07:44; Status DC Hydromorphone HCl (Dilaudid) 0.5 mg PRN Q10MIN PRN IV SEV PAIN, Second choice; Start 03/24/17 at 07:45; Stop 03/25/17 at 07:44; Status DC Prochlorperazine Edisylate (Compazine) 5 mg PACU PRN PRN IV NAUSEA, MRX1; Start 03/24/17 at 07:45; Stop 03/25/17 at 07:44; Status DC Bupivacaine HCl/ Epinephrine Bitart (Sensorcain-Mpf Epi 0.5%-1:[id number]) 30 ml STK -MED ONCE .ROUTE Last administered on 03/24/17 15:56; Start 03/24/17 at 10: 28; Stop 03/24/17 at 10:29; Status DC Neostigmine Methylsulfate (Bloxiverz) 10 mg STK-MED ONCE .ROUTE ; Start at 14:38; Stop 03/24/17 at 14:39; Status DC Rocuronium Sterling (Zemuron) 50 mg STK-MED ONCE .ROUTE ; Start 03/24/17 at 14: 38; Stop 03/24/17 at 14:39; Status DC Fentanyl Citrate (Fentanyl 2ml Vial) 100 mcg STK-MED ONCE .ROUTE ; Start at 14:38; Stop 03/24/17 at 14:39; Status DC Phenylephrine HCl 1 mg STK-MED ONCE IV ; Start 03/24/17 at 14:40; Stop at 14:41; Status DC Lidocaine HCl (Lidocaine Pf 2% Vial) 5 ml STK-MED ONCE .ROUTE ; Start 03/24/17 at 14:40; Stop 03/24/17 at 14:41; Status DC Dexamethasone Sodium Phosphate (Decadron) 20 mg STK-MED ONCE .ROUTE ; Start at 14:40; Stop 03/24/17 at 14:41; Status DC Ondansetron HCl (Zofran) 4 mg STK-MED ONCE .ROUTE ; Start 03/24/17 at 14:40; Stop 03/24/17 at 14:41; Status DC Propofol 20 ml @ As Directed STK-MED ONCE IV ; Start 03/24/17 at 14:40; Stop 03/24/17 at 14:41; Status DC Glycopyrrolate (Robinul) 1 mg STK-MED ONCE .ROUTE ; Start 03/24/17 at 15:11; Stop 03/24/17 at 15:12; Status DC Rocuronium Sterling (Zemuron) 50 mg STK-MED ONCE .ROUTE ; Start 03/24/17 at 15: 53; Stop 03/24/17 at 15:54; Status DC Fentanyl Citrate (Fentanyl 2ml Vial) 100 mcg STK-MED ONCE .ROUTE ; Start at 16:01; Stop 03/24/17 at 16:02; Status DC Morphine Sulfate 10 mg STK-MED ONCE .ROUTE ; Start 03/24/17 at 16:02; Stop at 16:03; Status DC Albumin Human 500 ml @ As Directed STK-MED ONCE IV ; Start 03/24/17 at 17:03; Stop 03/24/17 at 17:04; Status DC Phenylephrine HCl (Corky-Synephrine Inj) 10 mg STK-MED ONCE .ROUTE ; Start at 17:27; Stop 03/24/17 at 17:28; Status DC Rocuronium Sterling (Zemuron) 100 mg STK-MED ONCE .ROUTE ; Start 03/24/17 at 17: 57; Stop 03/24/17 at 17:58; Status DC Enoxaparin Sodium (Lovenox 40mg Syringe) 40 mg Q24H SQ Last administered on 20:51; Start 03/24/17 at 20:45; Stop 03/26/17 at 19:34; Status DC Sodium Chloride (Normal Saline Flush) 3 ml QSHIFT PRN IV AFTER MEDS AND BLOOD DRAWS; Start 03/24/17 at 20:45 Ringer's Solution 1,000 ml @ 100 mls/hr Q10H IV Last administered on 12:32; Start 03/24/17 at 20:43; Stop 03/25/17 at 16:52; Status DC Naloxone HCl (Narcan) 0.4 mg PRN Q2MIN PRN IV SEE INSTRUCTIONS; Start at 20:45 Sodium Chloride 1,000 ml @ 25 mls/hr Q24H IV Last administered on 03/27/17 12:08; Start 03/24/17 at 20:43 Hydromorphone HCl 30 ml @ 0 mls/hr CONT PRN PRN IV PROTOCOL Last administered on 03/24/17 23:16; Start 03/24/17 at 20:45 Prochlorperazine Edisylate (Compazine) 5 mg PRN Q4HRS PRN IV NAUSEA/VOMITING, 2ND CHOICE; Start 03/25/17 at 07:45 Pantoprazole Sodium (PROTONIX VIAL for IV PUSH) 40 mg DAILYAC IVP Last administered on 04/08/17 08:56; Start 03/25/17 at 10:15 Linezolid 300 ml @ 300 mls/hr Q12HR IV Last administered on 03/26/17 20:54; Start 03/25/17 at 11:00; Stop 03/27/17 at 08:05; Status DC Fluconazole/ Sodium Chloride 100 ml @ 100 mls/hr Q24H IV Last administered on 04/07/17 11:52; Start 03/25/17 at 11:00; Stop 04/07/17 at 13:39; Status DC Dextrose/Lactated Ringer's 1,000 ml @ 75 mls/hr [id number] IV Last administered on 04/03/17 08:54; Start 03/25/17 at 17:00; Stop 04/04/17 at 09:23; Status DC Famotidine (Pepcid Vial) 40 mg QHS IVP Last administered on 03/28/17 21:35; Start 03/25/17 at 21:00; Stop 03/29/17 at 08:02; Status DC Lorazepam (Ativan) 0.5 mg 1X ONCE IV ; Start 03/26/17 at 07:00; Stop at 07:01; Status Cancel Lorazepam (Ativan) 0.5 mg PRN Q8HRS PRN PO ANXIETY / AGITATION; Start at 07:00; Status Cancel Furosemide (Lasix) 40 mg 1X ONCE IVP Last administered on 03/26/17 09:54; Start 03/26/17 at 09:00; Stop 03/26/17 at 09:01; Status DC Furosemide (Lasix) 20 mg DAILY IVP Last administered on 03/30/17 09:29; Start 03/27/17 at 09:00; Stop 03/31/17 at 12:22; Status DC Digoxin (Lanoxin) 250 mcg 1X ONCE IV Last administered on 03/26/17 15:06; Start 03/26/17 at 15:15; Stop 03/26/17 at 15:16; Status DC Iohexol (Omnipaque 300 Mg/ml) 75 ml 1X ONCE IV Last administered on 16:41; Start 03/26/17 at 16:45; Stop 03/26/17 at 16:46; Status DC Info (Do NOT chart on this entry -- for MONITORING) 1 each PRN DAILY PRN MC SEE COMMENTS; Start 03/26/17 at 16:45; Stop 03/28/17 at 16:44; Status DC Norepinephrine Bitartrate 250 ml @ As Directed STK-MED ONCE IV ; Start at 17:42; Stop 03/26/17 at 17:43; Status DC Norepinephrine Bitartrate 250 ml @ 0 mls/hr CONT PRN IV SEE I/O RECORD Last administered on 03/26/17 18:01; Start 03/26/17 at 18:00; Stop 04/04/17 at 09 :57; Status DC Enoxaparin Sodium (Lovenox Per Pharmacy Treatment Dosing) 1 each PRN DAILY PRN MC SEE COMMENTS; Start 03/26/17 at 19:30; Stop 03/28/17 at 12:38; Status DC Enoxaparin Sodium (Lovenox 80mg Syringe) 80 mg Q12HR SQ Last administered on 21:51; Start 03/26/17 at 20:00; Stop 03/28/17 at 15:36; Status DC Daptomycin 460 mg/ Sodium Chloride 50 ml @ 100 mls/hr Q24H IV Last administered on 04/08/17 08:56; Start 03/27/17 at 09:00 Digoxin (Lanoxin) 250 mcg 1X ONCE IV Last administered on 03/27/17 12:09; Start 03/27/17 at 12:00; Stop 03/27/17 at 12:01; Status DC Insulin Detemir (Levemir) 5 units QHS SQ Last administered on 04/04/17 21:30 ; Start 03/27/17 at 21:00; Stop 04/05/17 at 09:34; Status DC Albumin Human 100 ml @ 100 mls/hr Q8H IV Last administered on 03/29/17 00:42 ; Start 03/28/17 at 09:00; Stop 03/29/17 at 01:59; Status DC Lorazepam (Ativan) 1 mg PRN Q6HRS PRN PO ANXIETY / AGITATION Last administered on 04/07/17 05:43; Start 03/28/17 at 16:00; Stop 04/07/17 at 16:34; Status DC Iohexol (Omnipaque 300 Mg/ml) 75 ml 1X ONCE IV Last administered on 16:00; Start 03/28/17 at 16:00; Stop 03/28/17 at 16:02; Status DC Info (Do NOT chart on this entry -- for MONITORING) 1 each PRN DAILY PRN MC SEE COMMENTS; Start 03/28/17 at 16:15; Stop 03/30/17 at 16:14; Status DC Fentanyl Citrate (Fentanyl 2ml Vial) 50 mcg PRN Q4HRS PRN IV PAIN Last administered on 04/01/17 08:14; Start 03/29/17 at 09:45 Ciprofloxacin/ Dextrose 200 ml @ 200 mls/hr Q12HR IV Last administered on 08:58; Start 03/30/17 at 09:00; Stop 04/04/17 at 10:45; Status DC Lorazepam (Ativan) 0.5 mg Q12HR PO Last administered on 04/08/17 09:00; Start 03/30/17 at 21:00 Dopamine HCl/ Dextrose 250 ml @ 15.155 mls/ hr CONT PRN IV SEE I/O RECORD Last administered on 04/06/17 15:44; Start 03/31/17 at 13:00 Info 1 each PRN DAILY PRN MC SEE COMMENTS Last administered on 04/08/17 07:38 ; Start 04/03/17 at 12:15 Sodium Chloride 90 meq/Potassium Chloride 50 meq/ Potassium Phosphate 20.4 mmol/ Magnesium Sulfate 10 meq/ Calcium Gluconate 10 meq/ Multivitamins 10 ml/Chromium / Copper/Manganese/ Seleni/Zn 1 ml/ Total Parenteral Nutrition/Amino Acids/ Dextrose/ Fat Emulsion Intravenous 1,512 ml @ 63 mls/hr TPN CONT IV Last administered on 04/03/17 21:38; Start 04/03/17 at 22:00; Stop 04/04/17 at 21 :59; Status DC Levofloxacin/ Dextrose 100 ml @ 100 mls/hr Q24H IV Last administered on 21:47; Start 04/04/17 at 21:00; Stop 04/07/17 at 13:39; Status DC Furosemide (Lasix) 40 mg DAILY IVP Last administered on 04/08/17 08:56; Start 04/04/17 at 12:00 Sodium Chloride 90 meq/Potassium Chloride 50 meq/ Potassium Phosphate 20.4 mmol/ Magnesium Sulfate 16 meq/ Calcium Gluconate 10 meq/ Multivitamins 10 ml/Chromium / Copper/Manganese/ Seleni/Zn 1 ml/ Total Parenteral Nutrition/Amino Acids/ Dextrose/ Fat Emulsion Intravenous 1,512 ml @ 63 mls/hr TPN CONT IV Last administered on 04/04/17 21:16; Start 04/04/17 at 22:00; Stop 04/05/17 at 21 :59; Status DC Insulin Detemir (Levemir) 20 units QHS SQ Last administered on 04/07/17 21:40 ; Start 04/05/17 at 21:00 Insulin Detemir (Levemir) 10 units 1X ONCE SQ Last administered on 04/05/17 14:12; Start 04/05/17 at 09:45; Stop 04/05/17 at 09:46; Status DC Sodium Chloride 90 meq/Potassium Chloride 50 meq/ Potassium Phosphate 20.4 mmol/ Magnesium Sulfate 24 meq/ Calcium Gluconate 10 meq/ Multivitamins 10 ml/Chromium / Copper/Manganese/ Seleni/Zn 1 ml/ Total Parenteral Nutrition/Amino Acids/ Dextrose/ Fat Emulsion Intravenous 1,512 ml @ 63 mls/hr TPN CONT IV Last administered on 04/05/17 20:55; Start 04/05/17 at 22:00; Stop 04/06/17 at 21: 59; Status DC Iohexol (Omnipaque 300 Mg/ml) 75 ml 1X ONCE IV ; Start 04/05/17 at 13:00; Stop 04/05/17 at 13:01; Status DC Iohexol (Omnipaque 240 Mg/ml) 30 ml 1X ONCE PO ; Start 04/05/17 at 13:00; Stop 04/05/17 at 13:01; Status DC Info (Do NOT chart on this entry -- for MONITORING) 1 each PRN DAILY PRN MC SEE COMMENTS; Start 04/05/17 at 13:00; Stop 04/07/17 at 12:59; Status DC Sodium Chloride 90 meq/Potassium Chloride 50 meq/ Potassium Phosphate 20.4 mmol/ Magnesium Sulfate 24 meq/ Calcium Gluconate 10 meq/ Multivitamins 10 ml/Chromium / Copper/Manganese/ Seleni/Zn 1 ml/ Total Parenteral Nutrition/Amino Acids/ Dextrose/ Fat Emulsion Intravenous 1,512 ml @ 63 mls/hr TPN CONT IV Last administered on 04/06/17 21:45; Start 04/06/17 at 22:00; Stop 04/07/17 at 21:59 ; Status DC Lidocaine/Sodium Bicarbonate (Buffered Lidocaine 1%) 20 ml STK-MED ONCE IJ ; Start 04/06/17 at 14:28; Stop 04/06/17 at 14:29; Status DC Fentanyl Citrate (Fentanyl 2ml Vial) 100 mcg STK-MED ONCE .ROUTE ; Start at 14:45; Stop 04/06/17 at 14:46; Status DC Midazolam HCl (Versed) 2 mg STK-MED ONCE .ROUTE ; Start 04/06/17 at 14:45; Stop 04/06/17 at 14:46; Status DC Flumazenil (Romazicon) 0.5 mg STK-MED ONCE IV ; Start 04/06/17 at 14:45; Stop 04/06/17 at 14:46; Status DC Naloxone HCl (Narcan) 0.4 mg STK-MED ONCE .ROUTE ; Start 04/06/17 at 14:45; Stop 04/06/17 at 14:46; Status DC Dopamine HCl/ Dextrose 250 ml @ As Directed STK-MED ONCE IV ; Start 04/06/17 at 14:50; Stop 04/06/17 at 14:51; Status DC Lidocaine/Sodium Bicarbonate (Buffered Lidocaine 1%) 7 ml 1X ONCE IJ Last administered on 04/06/17 15:20; Start 04/06/17 at 15:30; Stop 04/06/17 at 15:31 ; Status DC Sodium Chloride 90 meq/Potassium Chloride 50 meq/ Potassium Phosphate 13.6 mmol/ Magnesium Sulfate 20 meq/ Calcium Gluconate 10 meq/ Multivitamins 10 ml/Chromium / Copper/Manganese/ Seleni/Zn 1 ml/ Total Parenteral Nutrition/Amino Acids/ Dextrose/ Fat Emulsion Intravenous 1,512 ml @ 63 mls/hr TPN CONT IV Last administered on 04/07/17 21:19; Start 04/07/17 at 22:00; Stop 04/08/17 at 21:59 Micafungin Sodium 100 mg/Sodium Chloride 100 ml @ 100 mls/hr Q24H IV Last administered on 04/08/17 13:42; Start 04/07/17 at 14:00 Metronidazole 100 ml @ 100 mls/hr Q8HRS IV Last administered on 04/08/17 13: 43; Start 04/07/17 at 14:00 Cefepime HCl 1 gm/ Dextrose 50 ml @ 100 mls/hr Q8HRS IV ; Start 04/07/17 at 14: 00; Status UNV Cefepime HCl (Maxipime) 1 gm Q8HRS IVP Last administered on 04/08/17 13:42; Start 04/07/17 at 14:00 Sodium Chloride 90 meq/Potassium Chloride 50 meq/ Potassium Phosphate 13.6 mmol/ Magnesium Sulfate 20 meq/ Calcium Gluconate 10 meq/ Multivitamins 10 ml/Chromium / Copper/Manganese/ Seleni/Zn 1 ml/ Total Parenteral Nutrition/Amino Acids/ Dextrose/ Fat Emulsion Intravenous 1,512 ml @ 63 mls/hr TPN CONT IV ; Start 04/08/17 at 22:00; Stop 04/09/17 at 21:59 Active Scripts Active Reported Flagyl (Metronidazole) 500 Mg Tablet 1 Tab PO BID Cefpodoxime Proxetil 200 Mg Tablet 1 Tab PO BID Ferrous Sulfate 325 Mg Tablet 1 Tab PO DAILY Lasix (Furosemide) 40 Mg Tablet 40 Mg PO QODAY Potassium Chloride 10 Meq Capsule.er 10 Meq PO QODAY Metoprolol Tartrate 25 Mg Tablet 12.5 Mg PO BID Atorvastatin Calcium 40 Mg Tablet 40 Mg PO HS Clopidogrel (Clopidogrel Bisulfate) 75 Mg Tablet 1 Tab PO DAILY Diclofenac Sodium 75 Mg Tablet.dr 75 Mg PO DAILY Ranitidine Hcl 150 Mg Tablet 1 Tab PO BID Aspirin 81 Mg Tab.chew 1 Tab PO DAILY Vitals/I & O Vital Sign - Last 24 Hours 04/07/17 04/07/17 04/07/17 04/07/17 15:00 16:07 16:40 19:00 Temp 99.4 100.9 99.4 100.9 Pulse 85 99 Resp 22 38 22 B/P (MAP) 118/58 (78) 109/47 (67) Pulse Ox 99 96 96 97 O2 Delivery BiPAP/CPAP BiPAP/CPAP BiPAP/CPAP BiPAP/CPAP O2 Flow Rate 5.0 04/07/17 04/07/17 04/07/17 04/07/17 19:30 19:30 20:46 23:00 Temp 99.8 99.8 Pulse 99 Resp 20 B/P (MAP) 115/45 (68) Pulse Ox 98 99 O2 Delivery Bi-pap BiPAP/CPAP BiPAP/CPAP O2 Flow Rate 5.0 04/07/17 04/07/17 04/08/17 04/08/17 23:48 23:50 01:34 03:00 Temp 99.8 99.8 Pulse 92 Resp 38 20 B/P (MAP) 110/52 (71) Pulse Ox 92 98 96 99 O2 Delivery BiPAP/CPAP BiPAP/CPAP BiPAP/CPAP BiPAP/CPAP 04/08/17 04/08/17 04/08/17 04/08/17 05:23 06:51 07:25 08:00 Temp 99.6 99.6 Pulse 101 Resp 22 B/P (MAP) 97/35 (55) Pulse Ox 96 96 99 O2 Delivery BiPAP/CPAP BiPAP/CPAP BiPAP/CPAP O2 Flow Rate 5.0 04/08/17 04/08/17 04/08/17 04/08/17 08:00 08:57 09:00 10:00 Pulse 101 Resp 20 42 B/P (MAP) 97/35 Pulse Ox 99 99 O2 Delivery Bi-pap BiPAP/CPAP BiPAP/CPAP O2 Flow Rate 5.0 5.0 5.0 04/08/17 04/08/17 04/08/17 04/08/17 10:30 10:38 12:56 14:37 Temp 99.7 99.7 Pulse 97 Resp 32 B/P (MAP) 93/52 (66) Pulse Ox 99 98 O2 Delivery BiPAP/CPAP BiPAP/CPAP Nasal Cannula BiPAP/CPAP O2 Flow Rate 5.0 Intake and Output 04/07/17 04/07/17 04/08/17 15:00 23:00 07:00 Intake Total 200 ml 810 ml Output Total 1225 ml 20 ml Balance -1025 ml 790 ml DANNY MEZA MD Apr 08, 2017 14:50
--- NOTE | 2017-04-08 14:59 | PDOC ---
SUBJECTIVE Subjective took BIPAP off short while , still SOB and increase RR OBJECTIVE Objective tachypnic Vital Signs Vital Signs Date Time Temp Pulse Resp B/P (MAP) Pulse Ox O2 Delivery O2 Flow Rate FiO2 04/08/17 14:37 BiPAP/CPAP 04/08/17 12:56 98 Nasal Cannula 5.0 04/08/17 10:38 BiPAP/CPAP 04/08/17 10:30 99.7 97 32 93/52 (66) 99 BiPAP/CPAP 99.7 04/08/17 10:00 42 99 BiPAP/CPAP 5.0 04/08/17 09:00 20 99 BiPAP/CPAP 5.0 04/08/17 08:57 101 97/35 04/08/17 08:00 Bi-pap 5.0 04/08/17 08:00 5.0 04/08/17 07:25 99.6 101 22 97/35 (55) 99 BiPAP/CPAP 99.6 04/08/17 06:51 96 BiPAP/CPAP 04/08/17 05:23 96 BiPAP/CPAP 04/08/17 03:00 99.8 92 20 110/52 (71) 99 BiPAP/CPAP 99.8 04/08/17 01:34 96 BiPAP/CPAP 04/07/17 23:50 38 98 BiPAP/CPAP 04/07/17 23:48 92 BiPAP/CPAP 04/07/17 23:00 99.8 99 20 115/45 (68) 99 BiPAP/CPAP 99.8 04/07/17 20:46 98 BiPAP/CPAP 04/07/17 19:30 Bi-pap 04/07/17 19:30 5.0 04/07/17 19:00 100.9 99 22 109/47 (67) 97 BiPAP/CPAP 100.9 04/07/17 16:40 38 96 BiPAP/CPAP 5.0 04/07/17 16:07 96 BiPAP/CPAP 04/07/17 15:00 99.4 85 22 118/58 (78) 99 BiPAP/CPAP 99.4 I & O Intake and Output 04/08/17 07:00 Intake Total 1010 ml Output Total 1245 ml Balance -235 ml Intake Oral 100 ml IV Total 910 ml Output Urine Total 1225 ml Drainage Total 20 ml PHYSICAL EXAM Physical Exam lungs with decrease BS in bases heart mild tachy abd wound present , + mild tenderness ext edema left more than R LE ASSESSMENT/PLAN Assessment/Plan 1. Cinos-zf-nssuhzb respiratory failure on BIPAP 2. Status post laparoscopic converted to open exploration for extensive lysis of adhesion, removal of old mesh, subtotal colectomy, small bowel resection and incisional hernia repair.Now with brown drainage from wound. entero-cutaneous fistula/ abscess 3. Obesity, body mass index of 35. 4. Leukocytosis. 5. Enterocutaneous fistula. 6. Fever. 7. Abdominal abscess. 8. Ventral hernia, status post repair. 9-anemia will transuse 1 unit today 10-swelling LE recheck venous doppler consider prophylactic lovenox when ok with surgery or if Hb stable Problems: COMMENT Lab Laboratory Tests Test 04/07/17 16:00 04/07/17 21:10 04/08/17 06:00 04/08/17 07:23 Urine Collection Type Unknown Urine Color Yellow Urine Clarity Clear Urine pH 5.0 Urine Specific [place] 1.015 Urine Protein Negative mg/dL (NEG-TRACE) Urine Glucose (UA) Negative mg/dL (NEG) Urine Ketones (Stick) Negative mg/dL (NEG) Urine Blood Moderate (NEG) Urine Nitrite Negative (NEG) Urine Bilirubin Negative (NEG) Urine Urobilinogen Dipstick 0.2 mg/dL (0.2 mg/dL) Urine Leukocyte Esterase Negative (NEG) Urine RBC 11-20 /HPF (0-2) Urine WBC Rare /HPF (0-4) Urine Squamous Epithelial Cells Few /LPF Urine Bacteria Few /HPF (0-FEW) Urine Hyaline Casts Moderate /HPF Urine Mucus Mod /LPF Glucose (Fingerstick) 218 mg/dL (70-99) 169 mg/dL (70-99) White Blood Count 7.6 x10^3/uL (4.0-11.0) Red Blood Count 2.48 x10^6/uL (3.50-5.40) Hemoglobin 6.9 g/dL (12.0-15.5) Hematocrit 21.5 % (36.0-47.0) Mean Corpuscular Volume 87 fL (79-100) Mean Corpuscular Hemoglobin 28 pg (25-35) Mean Corpuscular Hemoglobin Concent 32 g/dL (31-37) Red Cell Distribution Width 17.9 % (11.5-14.5) Platelet Count 361 x10^3/uL (140-400) Neutrophils (%) (Auto) 83 % (31-73) Lymphocytes (%) (Auto) 9 % (24-48) Monocytes (%) (Auto) 8 % (0-9) Eosinophils (%) (Auto) 0 % (0-3) Basophils (%) (Auto) 0 % (0-3) Neutrophils # (Auto) 6.3 x10^3uL (1.8-7.7) Lymphocytes # (Auto) 0.7 x10^3/uL (1.0-4.8) Monocytes # (Auto) 0.6 x10^3/uL (0.0-1.1) Eosinophils # (Auto) 0.0 x10^3/uL (0.0-0.7) Basophils # (Auto) 0.0 x10^3/uL (0.0-0.2) Sodium Level 137 mmol/L (136-145) Potassium Level 4.2 mmol/L (3.5-5.1) Chloride Level 101 mmol/L (98-107) Carbon Dioxide Level 27 mmol/L (21-32) Anion Gap 9 (6-14) Blood Urea Nitrogen 20 mg/dL (7-20) Creatinine 0.7 mg/dL (0.6-1.0) Estimated GFR (Cockcroft-Gault) 82.5 Glucose Level 187 mg/dL (70-99) Calcium Level 7.8 mg/dL (8.5-10.1) Test 04/08/17 11:42 Glucose (Fingerstick) 216 mg/dL (70-99) RONNIE KABA MD Apr 08, 2017 14:59
--- NOTE | 2017-04-08 15:08 | PDOC ---
DYLON OCHOA LIGHTING ENGINEER 04/08/17 1508: SURGICAL PROGRESS NOTE Subjective resting bipap Vital Signs Vital Signs Date Time Temp Pulse Resp B/P (MAP) Pulse Ox O2 Delivery O2 Flow Rate FiO2 04/08/17 14:37 BiPAP/CPAP 04/08/17 12:56 98 5.0 04/08/17 10:30 99.7 97 32 93/52 (66) 99.7 I&O Intake and Output 04/08/17 07:00 Intake Total 1010 ml Output Total 1245 ml Balance -235 ml Intake Oral 100 ml IV Total 910 ml Output Urine Total 1225 ml Drainage Total 20 ml General: Alert, Oriented X3, Cooperative, No acute distress Abdomen: Soft, Other (drain scant drainage, wound with drainage, packed ) Labs Laboratory Tests Test 04/06/17 17:37 04/06/17 20:49 04/07/17 05:40 04/07/17 08:08 Glucose (Fingerstick) 146 mg/dL (70-99) 145 mg/dL (70-99) 155 mg/dL (70-99) Sodium Level 137 mmol/L (136-145) Potassium Level 4.4 mmol/L (3.5-5.1) Chloride Level 101 mmol/L (98-107) Carbon Dioxide Level 29 mmol/L (21-32) Anion Gap 7 (6-14) Blood Urea Nitrogen 16 mg/dL (7-20) Creatinine 0.7 mg/dL (0.6-1.0) Estimated GFR (Cockcroft-Gault) 82.5 Glucose Level 157 mg/dL (70-99) Calcium Level 8.4 mg/dL (8.5-10.1) Phosphorus Level 4.7 mg/dL (2.6-4.7) Magnesium Level 2.2 mg/dL (1.8-2.4) Test 04/07/17 16:00 04/07/17 21:10 04/08/17 06:00 04/08/17 07:23 Urine Collection Type Unknown Urine Color Yellow Urine Clarity Clear Urine pH 5.0 Urine Specific [place] 1.015 Urine Protein Negative mg/dL (NEG-TRACE) Urine Glucose (UA) Negative mg/dL (NEG) Urine Ketones (Stick) Negative mg/dL (NEG) Urine Blood Moderate (NEG) Urine Nitrite Negative (NEG) Urine Bilirubin Negative (NEG) Urine Urobilinogen Dipstick 0.2 mg/dL (0.2 mg/dL) Urine Leukocyte Esterase Negative (NEG) Urine RBC 11-20 /HPF (0-2) Urine WBC Rare /HPF (0-4) Urine Squamous Epithelial Cells Few /LPF Urine Bacteria Few /HPF (0-FEW) Urine Hyaline Casts Moderate /HPF Urine Mucus Mod /LPF Glucose (Fingerstick) 218 mg/dL (70-99) 169 mg/dL (70-99) White Blood Count 7.6 x10^3/uL (4.0-11.0) Red Blood Count 2.48 x10^6/uL (3.50-5.40) Hemoglobin 6.9 g/dL (12.0-15.5) Hematocrit 21.5 % (36.0-47.0) Mean Corpuscular Volume 87 fL (79-100) Mean Corpuscular Hemoglobin 28 pg (25-35) Mean Corpuscular Hemoglobin Concent 32 g/dL (31-37) Red Cell Distribution Width 17.9 % (11.5-14.5) Platelet Count 361 x10^3/uL (140-400) Neutrophils (%) (Auto) 83 % (31-73) Lymphocytes (%) (Auto) 9 % (24-48) Monocytes (%) (Auto) 8 % (0-9) Eosinophils (%) (Auto) 0 % (0-3) Basophils (%) (Auto) 0 % (0-3) Neutrophils # (Auto) 6.3 x10^3uL (1.8-7.7) Lymphocytes # (Auto) 0.7 x10^3/uL (1.0-4.8) Monocytes # (Auto) 0.6 x10^3/uL (0.0-1.1) Eosinophils # (Auto) 0.0 x10^3/uL (0.0-0.7) Basophils # (Auto) 0.0 x10^3/uL (0.0-0.2) Sodium Level 137 mmol/L (136-145) Potassium Level 4.2 mmol/L (3.5-5.1) Chloride Level 101 mmol/L (98-107) Carbon Dioxide Level 27 mmol/L (21-32) Anion Gap 9 (6-14) Blood Urea Nitrogen 20 mg/dL (7-20) Creatinine 0.7 mg/dL (0.6-1.0) Estimated GFR (Cockcroft-Gault) 82.5 Glucose Level 187 mg/dL (70-99) Calcium Level 7.8 mg/dL (8.5-10.1) Test 04/08/17 11:42 Glucose (Fingerstick) 216 mg/dL (70-99) Laboratory Tests Test 04/07/17 16:00 04/07/17 21:10 04/08/17 06:00 04/08/17 07:23 Urine Collection Type Unknown Urine Color Yellow Urine Clarity Clear Urine pH 5.0 Urine Specific [place] 1.015 Urine Protein Negative mg/dL (NEG-TRACE) Urine Glucose (UA) Negative mg/dL (NEG) Urine Ketones (Stick) Negative mg/dL (NEG) Urine Blood Moderate (NEG) Urine Nitrite Negative (NEG) Urine Bilirubin Negative (NEG) Urine Urobilinogen Dipstick 0.2 mg/dL (0.2 mg/dL) Urine Leukocyte Esterase Negative (NEG) Urine RBC 11-20 /HPF (0-2) Urine WBC Rare /HPF (0-4) Urine Squamous Epithelial Cells Few /LPF Urine Bacteria Few /HPF (0-FEW) Urine Hyaline Casts Moderate /HPF Urine Mucus Mod /LPF Glucose (Fingerstick) 218 mg/dL (70-99) 169 mg/dL (70-99) White Blood Count 7.6 x10^3/uL (4.0-11.0) Red Blood Count 2.48 x10^6/uL (3.50-5.40) Hemoglobin 6.9 g/dL (12.0-15.5) Hematocrit 21.5 % (36.0-47.0) Mean Corpuscular Volume 87 fL (79-100) Mean Corpuscular Hemoglobin 28 pg (25-35) Mean Corpuscular Hemoglobin Concent 32 g/dL (31-37) Red Cell Distribution Width 17.9 % (11.5-14.5) Platelet Count 361 x10^3/uL (140-400) Neutrophils (%) (Auto) 83 % (31-73) Lymphocytes (%) (Auto) 9 % (24-48) Monocytes (%) (Auto) 8 % (0-9) Eosinophils (%) (Auto) 0 % (0-3) Basophils (%) (Auto) 0 % (0-3) Neutrophils # (Auto) 6.3 x10^3uL (1.8-7.7) Lymphocytes # (Auto) 0.7 x10^3/uL (1.0-4.8) Monocytes # (Auto) 0.6 x10^3/uL (0.0-1.1) Eosinophils # (Auto) 0.0 x10^3/uL (0.0-0.7) Basophils # (Auto) 0.0 x10^3/uL (0.0-0.2) Sodium Level 137 mmol/L (136-145) Potassium Level 4.2 mmol/L (3.5-5.1) Chloride Level 101 mmol/L (98-107) Carbon Dioxide Level 27 mmol/L (21-32) Anion Gap 9 (6-14) Blood Urea Nitrogen 20 mg/dL (7-20) Creatinine 0.7 mg/dL (0.6-1.0) Estimated GFR (Cockcroft-Gault) 82.5 Glucose Level 187 mg/dL (70-99) Calcium Level 7.8 mg/dL (8.5-10.1) Test 04/08/17 11:42 Glucose (Fingerstick) 216 mg/dL (70-99) Problem List Problems Medical Problems: (1) Abdominal abscess Status: Acute (2) Abdominal pain Status: Acute Assessment/Plan continue supportive care wound care Problems: CICI OSCAR MD 04/08/17 1709: SURGICAL PROGRESS NOTE Assessment/Plan Agree with above Problems: DYLON OCHOA APRN Apr 08, 2017 15:08 CICI OSCAR MD Apr 08, 2017 17:09
--- NOTE | 2017-04-08 15:59 | RAD ---
Ultrasound bilateral lower extremity Indication: Bilateral lower extremity swelling. Technique: Multiple real-time grayscale images were obtained over the bilateral lower extremities with use of color Doppler imaging and spectral analysis. Static images were submitted for interpretation. Findings: There is no evidence for deep venous thrombosis. There is normal color fill-in on Doppler images. There is also normal response to compression and augmentation of the deep venous system. Impression: No evidence for deep venous thrombosis.
[2017-04-08] MEDS: IV NORMAL SALINE 1000ML BAG 1,000 ML IV SCH (20:43)
[2017-04-08] MEDS: INSULIN DETEMIR 300 UNITS/3 ML INSULN.PEN. SQ SCH (21:31)
[2017-04-08] MEDS ORDERED: DEXTROSE 70% IV SCH ×10 (22:00)
[2017-04-08] MEDS ORDERED: [UNRECOGNIZED DRUG - OTHER] IV SCH ×10 (22:00)
[2017-04-08] MEDS ORDERED: AMINO ACIDS IV SCH ×10 (22:00)
[2017-04-08] MEDS ORDERED: TOTAL PARENTERAL NUTRITION IV SCH ×10 (22:00)
[2017-04-09] VITALS (17 sets, daily range): BP systolic 81–121; BP diastolic 46–67
[2017-04-09] MEDS: HYDROcodone/APAP 7.5/325MG 1 TAB TABLET PO PRN ×3 (01:45→16:51)
[2017-04-09] MEDS: CEFEPIME HCL IV Push 1 GM VIAL. IVP SCH ×3 (06:07→22:18)
[2017-04-09 06:28] LABS: HEMATOCRIT 23.2 % (36.0-47.0); HEMOGLOBIN 7.7 g/dL (12.0-15.5); RED BLOOD COUNT 2.69 x10^6/uL (3.50-5.40); RED CELL DISTRIBUTION WIDTH 17.6 % (11.5-14.5); WHITE BLOOD COUNT 7.8 x10^3/uL (4.0-11.0)
[2017-04-09 06:46] LABS: ALBUMIN 0.8 g/dL (3.4-5.0); ALBUMIN/GLOBULIN RATIO 0.2 (1.0-1.7); CREATININE 0.7 mg/dL (0.6-1.0); GFR 82.5; MAGNESIUM 2.3 mg/dL (1.8-2.4); PHOSPHORUS 4.1 mg/dL (2.6-4.7); POTASSIUM 3.6 mmol/L (3.5-5.1); TOTAL BILIRUBIN 0.4 mg/dL (0.2-1.0); TOTAL PROTEIN 4.6 g/dL (6.4-8.2)
--- NOTE | 2017-04-09 08:14 | PDOC ---
Infectious Disease Note Subjective Subjective + cough, denies SOA or CP TPN ROS ROS Difficult to ascertain on BiPAP Vital Sign Vital Signs Vital Signs Date Time Temp Pulse Resp B/P (MAP) Pulse Ox O2 Delivery O2 Flow Rate FiO2 04/09/17 07:37 98 BiPAP/CPAP 04/09/17 04:20 98.3 87 40 108/48 (68) 98.3 04/09/17 01:45 5.0 Physical Exam PHYSICAL EXAM GENERAL: Propped up in bed, with apparent increased work of breathing HEENT: PERRL, on BiPAP LUNGS: Increased rate base crackles CV: S1 and S2 ABD: BS active, soft, NT light palpation. Ostomy + output, distal incision dehiscence, + drainage. + drain intact : [place] EXT: 1 plus edema BLE, no cyanosis SKIN: Without rash, warm to touch COMMUNITY BOARD MEMBER: Alert, oriented, following commands RUE-PICC. clean Labs Lab Laboratory Tests Test 04/08/17 11:42 04/08/17 17:11 04/08/17 20:44 04/09/17 06:00 Glucose (Fingerstick) 216 mg/dL (70-99) 148 mg/dL (70-99) 164 mg/dL (70-99) White Blood Count 7.8 x10^3/uL (4.0-11.0) Red Blood Count 2.69 x10^6/uL (3.50-5.40) Hemoglobin 7.7 g/dL (12.0-15.5) Hematocrit 23.2 % (36.0-47.0) Mean Corpuscular Volume 86 fL (79-100) Mean Corpuscular Hemoglobin 29 pg (25-35) Mean Corpuscular Hemoglobin Concent 33 g/dL (31-37) Red Cell Distribution Width 17.6 % (11.5-14.5) Platelet Count 341 x10^3/uL (140-400) Sodium Level 138 mmol/L (136-145) Potassium Level 3.6 mmol/L (3.5-5.1) Chloride Level 104 mmol/L (98-107) Carbon Dioxide Level 29 mmol/L (21-32) Anion Gap 5 (6-14) Blood Urea Nitrogen 20 mg/dL (7-20) Creatinine 0.7 mg/dL (0.6-1.0) Estimated GFR (Cockcroft-Gault) 82.5 BUN/Creatinine Ratio 29 (6-20) Glucose Level 134 mg/dL (70-99) Calcium Level 8.0 mg/dL (8.5-10.1) Phosphorus Level 4.1 mg/dL (2.6-4.7) Magnesium Level 2.3 mg/dL (1.8-2.4) Total Bilirubin 0.4 mg/dL (0.2-1.0) Aspartate Amino Transf (AST/SGOT) 32 U/L (15-37) Alanine Aminotransferase (ALT/SGPT) 12 U/L (14-59) Alkaline Phosphatase 105 U/L (46-116) Total Protein 4.6 g/dL (6.4-8.2) Albumin 0.8 g/dL (3.4-5.0) Albumin/Globulin Ratio 0.2 (1.0-1.7) Micro Klebsiella pneumoniae Moderate growth AEROBIC RES 2 Final Yeast Moderate growth Request for further identification must be made within 1 week. AEROBIC RES 3 Final Comment Vancomycin-resistant Enterococcus (Enterococcus faecium) Heavy growth AEROBIC RES 4 Final Comment Pseudomonas aeruginosa Moderate growth CONTINUED ON NEXT PAGE RUN DATE: 03/20/17 PAGE 2 RUN TIME: [address] [place] [address] M[address]D., Video Rental Clerk SPEC: [id number] PATIENT: SAFIA MIRANDA [id number] ( Continued) Procedure Result ANTIMICROBIAL SUSCEPTIBILITY Final Comment S = Susceptible; I = Intermediate; R = Resistant P = Positive; N = Negative MICS are expressed in micrograms per mL Antibiotic RSLT#1 RSLT#2 RSLT#3 RSLT#4 Amikacin S Amoxicillin/Clavulanic Acid S Ampicillin R Cefepime S S Ceftazidime S Ceftriaxone S Cefuroxime I Ciprofloxacin S S Ertapenem S Gentamicin S S Imipenem S S Levofloxacin S S Linezolid S Meropenem S Penicillin R Piperacillin R S Quinupristin/Dalfopristin S Tetracycline S Ticarcillin R Tobramycin S S Trimethoprim/Sulfa S Vancomycin R Performed at: [facility] [address] [id number] Wood Chopper: Ashia Rogers MD, Phone: [phone] SUSCEPTIBILITY TESTING AEROBIC Final Final report SUSCEPTIBILITY TESTING AEROBIC Final Letitia tropicalis Letitia tropicalis susceptibility results: 5-Flucytosine 0.12 mcg/mL Sensitive Itraconazole 1 mcg/mL Resistant Fluconazole 1 mcg/mL Sensitive Voriconazole 0.12 mcg/mL Sensitive Performed at: [facility] [employer] [place], [place] [id number] Wood Chopper: Ashia Rogers MD, Phone: [phone] Objective Assessment Tesqo-[id number] respiratory failure, now on BiPAP but appears SOA - pleural effusions Fever, UA neg - some better Acute Anemia - s/p PRBCs one unit 04/08 s/p lap converted to open exploration, JAIRO, removal of infected mesh, subtotal colectomy, SBR and hernia repair, 03/24. Now new 10.0 x 5.5 x 18.0 cm fluid collection with air-fluid levels in the right lower quadrant. s/p drain placement, 04/06. GS: polymicrobial Wound dehiscence Leukocytosis - improved Thrombocytopenia, resolved EC fistula Abdominal abscess, measuring 6.4 x 4.9 cm. s/p drain 03/12. Klebsiella ( R to Zosyn, S Cipro/Levo), VRE (R PCN) and PSAE ( R to ticarcillin only otherwise sensitive, S Cipro/Levo) and C tropicalis -h/o Strep anginosis and Bacteroides Ventral hernia DM HTN PCN allergy/amox also - hives and swelling Plan Plan of Care Reveiwed pictures of wounds from last pm. Nasal bridge from BiPAP and abd wound looks worse as has increased in size Repeat CXR. Lasix times one Blood cult pending Micafungin, Flagyl and Cefepime 04/07 Cont Dapto CPK 209 - 04/06. continue to monitor f/u cultures and monitor WBC, temp Supportive care To ICU. D/w nursing Guarded prognosis overall given resp failure/deconditioning and worsening wounds TERRA BEACH MD Apr 09, 2017 08:14
[2017-04-09] MEDS ORDERED: FUROSEMIDE 40 MG/4 ML VIAL. IVP ONE (08:15)
--- NOTE | 2017-04-09 08:31 | PDOC ---
SUBJECTIVE Subjective Will transfer to ICU. Continues to have increased work of breathing, tachycardia , tachypnea. Appears uncomfortable. OBJECTIVE Objective Reviewed. Vital Signs Vital Signs Date Time Temp Pulse Resp B/P (MAP) Pulse Ox O2 Delivery O2 Flow Rate FiO2 04/09/17 07:37 98 BiPAP/CPAP 04/09/17 05:45 98 BiPAP/CPAP 04/09/17 04:20 98.3 87 40 108/48 (68) 96 BiPAP/CPAP 98.3 04/09/17 03:00 90 04/09/17 02:45 34 98 BiPAP/CPAP 04/09/17 01:58 98 BiPAP/CPAP 04/09/17 01:45 34 98 Nasal Cannula 5.0 04/08/17 23:34 98 BiPAP/CPAP 04/08/17 23:30 99.5 98 40 111/55 (73) 98 BiPAP/CPAP 99.5 04/08/17 20:40 98 BiPAP/CPAP 04/08/17 20:00 5.0 04/08/17 20:00 Bi-pap 04/08/17 19:50 99.5 100 36 115/55 (75) 98 BiPAP/CPAP 99.5 04/08/17 19:30 98.9 98 34 117/56 98.9 04/08/17 18:36 BiPAP/CPAP 04/08/17 18:30 99.3 98 45 113/56 99.3 04/08/17 17:30 99.3 94 45 114/57 99.3 04/08/17 16:57 BiPAP/CPAP 04/08/17 16:30 99.3 98 45 100/56 99.3 04/08/17 16:13 99.5 96 40 106/50 99.5 04/08/17 15:20 97.3 93 30 109/50 (69) 93 BiPAP/CPAP 97.3 04/08/17 14:37 BiPAP/CPAP 04/08/17 12:56 98 Nasal Cannula 5.0 04/08/17 10:38 BiPAP/CPAP 04/08/17 10:30 99.7 97 32 93/52 (66) 99 BiPAP/CPAP 99.7 04/08/17 10:00 5.0 04/08/17 09:00 20 99 BiPAP/CPAP 5.0 04/08/17 08:57 101 97/35 I & O Intake and Output 04/09/17 07:00 Intake Total 1400 ml Output Total 2350 ml Balance -950 ml Intake Oral 420 ml IV Total 980 ml Output Urine Total 2100 ml Stool Total 250 ml PHYSICAL EXAM Physical Exam Alert Nasal wound covered with bandage Bipap in place Increased work of breathing, crackles in bases Abd wounds covered with dressing, dehiscence documented with photos in chart. 1-2+ pitting edema bilateral lower extremities ASSESSMENT/PLAN Assessment/Plan [id number] respiratory failure on BIPAP Status post laparoscopic converted to open exploration for extensive lysis of adhesion, removal of old mesh, subtotal colectomy, small bowel resection and incisional hernia repair.Now with brown drainage from wound. entero-cutaneous fistula/ abscess Obesity Enterocutaneous fistula. Abdominal abscess. Ventral hernia, status post repair. Anemia Swelling LE - doppler negative for DVT Multiple wounds (nasal bridge from bipap, dehiscence of abdominal wound, etc.) Transfer to ICU. Discuss goals of care with patient and son. Palliative care consult. Problems: COMMENT Lab Laboratory Tests Test 04/08/17 11:42 04/08/17 17:11 04/08/17 20:44 04/09/17 06:00 Glucose (Fingerstick) 216 mg/dL (70-99) 148 mg/dL (70-99) 164 mg/dL (70-99) White Blood Count 7.8 x10^3/uL (4.0-11.0) Red Blood Count 2.69 x10^6/uL (3.50-5.40) Hemoglobin 7.7 g/dL (12.0-15.5) Hematocrit 23.2 % (36.0-47.0) Mean Corpuscular Volume 86 fL (79-100) Mean Corpuscular Hemoglobin 29 pg (25-35) Mean Corpuscular Hemoglobin Concent 33 g/dL (31-37) Red Cell Distribution Width 17.6 % (11.5-14.5) Platelet Count 341 x10^3/uL (140-400) Sodium Level 138 mmol/L (136-145) Potassium Level 3.6 mmol/L (3.5-5.1) Chloride Level 104 mmol/L (98-107) Carbon Dioxide Level 29 mmol/L (21-32) Anion Gap 5 (6-14) Blood Urea Nitrogen 20 mg/dL (7-20) Creatinine 0.7 mg/dL (0.6-1.0) Estimated GFR (Cockcroft-Gault) 82.5 BUN/Creatinine Ratio 29 (6-20) Glucose Level 134 mg/dL (70-99) Calcium Level 8.0 mg/dL (8.5-10.1) Phosphorus Level 4.1 mg/dL (2.6-4.7) Magnesium Level 2.3 mg/dL (1.8-2.4) Total Bilirubin 0.4 mg/dL (0.2-1.0) Aspartate Amino Transf (AST/SGOT) 32 U/L (15-37) Alanine Aminotransferase (ALT/SGPT) 12 U/L (14-59) Alkaline Phosphatase 105 U/L (46-116) Total Protein 4.6 g/dL (6.4-8.2) Albumin 0.8 g/dL (3.4-5.0) Albumin/Globulin Ratio 0.2 (1.0-1.7) STEPHON BLAND MD Apr 09, 2017 08:31
--- NOTE | 2017-04-09 08:54 | PDOC ---
PROGRESS NOTES Subjective Subjective HPI - f/u of Thrombocytopenia. Anemia ROS - on BIPAP Objective Objective Vital Signs Date Time Temp Pulse Resp B/P (MAP) Pulse Ox O2 Delivery O2 Flow Rate FiO2 04/09/17 07:37 98 BiPAP/CPAP 04/09/17 04:20 98.3 87 40 108/48 (68) 98.3 04/09/17 01:45 5.0 Intake and Output 04/09/17 07:00 Intake Total 1400 ml Output Total 2350 ml Balance -950 ml Intake Oral 420 ml IV Total 980 ml Output Urine Total 2100 ml Stool Total 250 ml Physical Exam General: mild distress Lungs: Other (on BIPAP) Assessment Assessment Problems Medical Problems: (1) Abdominal abscess Status: Acute (2) Abdominal pain Status: Acute A/P: 1. Thrombocytopenia. Improved. Plt count 341. 2. Anemia. Most likely multifactorial. Iron studies are suggestive of anemia of chronic disease. /B12 normal. Hb 7.7, monitor and transfuse as needed. 3. Abscess. Management as per primary/surgery 4. Status post laparoscopic converted to open exploration for extensive lysis of adhesion, removal of old mesh, subtotal colectomy, small bowel resection and incisional hernia repair. 5. [id number] respiratory failure. Persistent dyspnea/ BIPAP - appreciate pulm f/u Comment Review of Relevant I have reviewed the following items chito (where applicable) has been applied. Labs Laboratory Tests Test 04/07/17 16:00 04/07/17 21:10 04/08/17 06:00 04/08/17 07:23 Urine Collection Type Unknown Urine Color Yellow Urine Clarity Clear Urine pH 5.0 Urine Specific Mozelle 1.015 Urine Protein Negative mg/dL (NEG-TRACE) Urine Glucose (UA) Negative mg/dL (NEG) Urine Ketones (Stick) Negative mg/dL (NEG) Urine Blood Moderate (NEG) Urine Nitrite Negative (NEG) Urine Bilirubin Negative (NEG) Urine Urobilinogen Dipstick 0.2 mg/dL (0.2 mg/dL) Urine Leukocyte Esterase Negative (NEG) Urine RBC 11-20 /HPF (0-2) Urine WBC Rare /HPF (0-4) Urine Squamous Epithelial Cells Few /LPF Urine Bacteria Few /HPF (0-FEW) Urine Hyaline Casts Moderate /HPF Urine Mucus Mod /LPF Glucose (Fingerstick) 218 mg/dL (70-99) 169 mg/dL (70-99) White Blood Count 7.6 x10^3/uL (4.0-11.0) Red Blood Count 2.48 x10^6/uL (3.50-5.40) Hemoglobin 6.9 g/dL (12.0-15.5) Hematocrit 21.5 % (36.0-47.0) Mean Corpuscular Volume 87 fL (79-100) Mean Corpuscular Hemoglobin 28 pg (25-35) Mean Corpuscular Hemoglobin Concent 32 g/dL (31-37) Red Cell Distribution Width 17.9 % (11.5-14.5) Platelet Count 361 x10^3/uL (140-400) Neutrophils (%) (Auto) 83 % (31-73) Lymphocytes (%) (Auto) 9 % (24-48) Monocytes (%) (Auto) 8 % (0-9) Eosinophils (%) (Auto) 0 % (0-3) Basophils (%) (Auto) 0 % (0-3) Neutrophils # (Auto) 6.3 x10^3uL (1.8-7.7) Lymphocytes # (Auto) 0.7 x10^3/uL (1.0-4.8) Monocytes # (Auto) 0.6 x10^3/uL (0.0-1.1) Eosinophils # (Auto) 0.0 x10^3/uL (0.0-0.7) Basophils # (Auto) 0.0 x10^3/uL (0.0-0.2) Sodium Level 137 mmol/L (136-145) Potassium Level 4.2 mmol/L (3.5-5.1) Chloride Level 101 mmol/L (98-107) Carbon Dioxide Level 27 mmol/L (21-32) Anion Gap 9 (6-14) Blood Urea Nitrogen 20 mg/dL (7-20) Creatinine 0.7 mg/dL (0.6-1.0) Estimated GFR (Cockcroft-Gault) 82.5 Glucose Level 187 mg/dL (70-99) Calcium Level 7.8 mg/dL (8.5-10.1) Test 04/08/17 11:42 04/08/17 17:11 04/08/17 20:44 04/09/17 06:00 Glucose (Fingerstick) 216 mg/dL (70-99) 148 mg/dL (70-99) 164 mg/dL (70-99) White Blood Count 7.8 x10^3/uL (4.0-11.0) Red Blood Count 2.69 x10^6/uL (3.50-5.40) Hemoglobin 7.7 g/dL (12.0-15.5) Hematocrit 23.2 % (36.0-47.0) Mean Corpuscular Volume 86 fL (79-100) Mean Corpuscular Hemoglobin 29 pg (25-35) Mean Corpuscular Hemoglobin Concent 33 g/dL (31-37) Red Cell Distribution Width 17.6 % (11.5-14.5) Platelet Count 341 x10^3/uL (140-400) Sodium Level 138 mmol/L (136-145) Potassium Level 3.6 mmol/L (3.5-5.1) Chloride Level 104 mmol/L (98-107) Carbon Dioxide Level 29 mmol/L (21-32) Anion Gap 5 (6-14) Blood Urea Nitrogen 20 mg/dL (7-20) Creatinine 0.7 mg/dL (0.6-1.0) Estimated GFR (Cockcroft-Gault) 82.5 BUN/Creatinine Ratio 29 (6-20) Glucose Level 134 mg/dL (70-99) Calcium Level 8.0 mg/dL (8.5-10.1) Phosphorus Level 4.1 mg/dL (2.6-4.7) Magnesium Level 2.3 mg/dL (1.8-2.4) Total Bilirubin 0.4 mg/dL (0.2-1.0) Aspartate Amino Transf (AST/SGOT) 32 U/L (15-37) Alanine Aminotransferase (ALT/SGPT) 12 U/L (14-59) Alkaline Phosphatase 105 U/L (46-116) Total Protein 4.6 g/dL (6.4-8.2) Albumin 0.8 g/dL (3.4-5.0) Albumin/Globulin Ratio 0.2 (1.0-1.7) Laboratory Tests Test 04/08/17 11:42 04/08/17 17:11 04/08/17 20:44 04/09/17 06:00 Glucose (Fingerstick) 216 mg/dL (70-99) 148 mg/dL (70-99) 164 mg/dL (70-99) White Blood Count 7.8 x10^3/uL (4.0-11.0) Red Blood Count 2.69 x10^6/uL (3.50-5.40) Hemoglobin 7.7 g/dL (12.0-15.5) Hematocrit 23.2 % (36.0-47.0) Mean Corpuscular Volume 86 fL (79-100) Mean Corpuscular Hemoglobin 29 pg (25-35) Mean Corpuscular Hemoglobin Concent 33 g/dL (31-37) Red Cell Distribution Width 17.6 % (11.5-14.5) Platelet Count 341 x10^3/uL (140-400) Sodium Level 138 mmol/L (136-145) Potassium Level 3.6 mmol/L (3.5-5.1) Chloride Level 104 mmol/L (98-107) Carbon Dioxide Level 29 mmol/L (21-32) Anion Gap 5 (6-14) Blood Urea Nitrogen 20 mg/dL (7-20) Creatinine 0.7 mg/dL (0.6-1.0) Estimated GFR (Cockcroft-Gault) 82.5 BUN/Creatinine Ratio 29 (6-20) Glucose Level 134 mg/dL (70-99) Calcium Level 8.0 mg/dL (8.5-10.1) Phosphorus Level 4.1 mg/dL (2.6-4.7) Magnesium Level 2.3 mg/dL (1.8-2.4) Total Bilirubin 0.4 mg/dL (0.2-1.0) Aspartate Amino Transf (AST/SGOT) 32 U/L (15-37) Alanine Aminotransferase (ALT/SGPT) 12 U/L (14-59) Alkaline Phosphatase 105 U/L (46-116) Total Protein 4.6 g/dL (6.4-8.2) Albumin 0.8 g/dL (3.4-5.0) Albumin/Globulin Ratio 0.2 (1.0-1.7) Microbiology 04/07/17 Blood Culture - Preliminary, Resulted NO GROWTH AFTER 1 DAY 04/06/17 Gram Stain - Final, Complete 03/09/17 Urine Culture - Final, Complete 03/09/17 Urine Culture Result 1 (KULDEEP) - Final, Complete 03/12/17 Fungal Culture - Final, Complete 03/12/17 Fungal Culture Result 1 - Final, Complete Medications Current Medications Ondansetron HCl (Zofran) 4 mg 1X ONCE IV Last administered on 03/09/17 08:30 ; Start 03/09/17 at 08:15; Stop 03/09/17 at 08:16; Status DC Iohexol (Omnipaque 300 Mg/ml) 75 ml 1X ONCE IV Last administered on 03/09/17 08:50; Start 03/09/17 at 08:45; Stop 03/09/17 at 08:46; Status DC Info (Do NOT chart on this entry -- for MONITORING) 1 each PRN DAILY PRN MC SEE COMMENTS; Start 03/09/17 at 08:45; Stop 03/11/17 at 08:44; Status DC Ceftriaxone Sodium 50 ml @ 100 mls/hr 1X ONCE IV ; Start 03/09/17 at 09:30; Stop 03/09/17 at 09:55; Status DC Sodium Chloride 1,000 ml @ 1,000 mls/hr 1X ONCE IV Last administered on 09:55; Start 03/09/17 at 10:00; Stop 03/09/17 at 10:59; Status DC Ondansetron HCl (Zofran) 4 mg PRN Q8HRS PRN IV NAUSEA/VOMITING; Start 03/09/17 at 10:30; Stop 03/10/17 at 10:29; Status DC Meropenem 500 mg/ Sodium Chloride 50 ml @ 100 mls/hr Q8HRS IV Last administered on 03/16/17 06:09; Start 03/09/17 at 13:00; Stop 03/16/17 at 12: 59; Status DC Acetaminophen (Tylenol) 650 mg PRN QID PRN PO MILD PAIN / TEMP Last administered on 03/30/17 17:43; Start 03/09/17 at 20:30 Aspirin (Children'S Aspirin) 81 mg DAILY PO Last administered on 04/08/17 09: 00; Start 03/10/17 at 15:00 Clopidogrel Bisulfate (Plavix) 75 mg DAILY PO Last administered on 03/19/17 10:00; Start 03/10/17 at 15:00; Stop 03/22/17 at 09:10; Status DC Ferrous Sulfate (Feosol) 325 mg DAILY PO Last administered on 04/08/17 09:00; Start 03/10/17 at 15:00 Metoprolol Tartrate (Lopressor) 12.5 mg BID PO Last administered on 03/10/17 16:01; Start 03/10/17 at 15:00; Stop 03/10/17 at 21:01; Status DC Diclofenac Sodium (Voltaren) 75 mg DAILY PO Last administered on 03/23/17 09: 23; Start 03/10/17 at 14:30; Stop 03/29/17 at 10:50; Status DC Famotidine (Pepcid) 20 mg QHS PO Last administered on 03/24/17 21:20; Start 03/10/17 at 21:00; Stop 03/26/17 at 09:35; Status DC Glimepiride (Amaryl) 1 mg DAILY PO Last administered on 03/13/17 09:25; Start 03/11/17 at 15:00; Stop 03/13/17 at 17:02; Status DC Sodium Chloride 1,000 ml @ 100 mls/hr 1X ONCE IV Last administered on 21:00; Start 03/10/17 at 21:00; Stop 03/11/17 at 06:59; Status DC Lidocaine/Sodium Bicarbonate (Buffered Lidocaine 1%) 20 ml STK-MED ONCE IJ ; Start 03/12/17 at 13:05; Stop 03/12/17 at 13:06; Status DC Fentanyl Citrate (Fentanyl 2ml Vial) 100 mcg STK-MED ONCE .ROUTE ; Start at 13:20; Stop 03/12/17 at 13:21; Status DC Midazolam HCl (Versed) 2 mg STK-MED ONCE .ROUTE ; Start 03/12/17 at 13:20; Stop 03/12/17 at 13:21; Status DC Flumazenil (Romazicon) 0.5 mg STK-MED ONCE IV ; Start 03/12/17 at 13:20; Stop 03/12/17 at 13:21; Status DC Naloxone HCl (Narcan) 0.4 mg STK-MED ONCE .ROUTE ; Start 03/12/17 at 13:20; Stop 03/12/17 at 13:21; Status DC Lidocaine/Sodium Bicarbonate (Buffered Lidocaine 1%) 20 ml 1X ONCE IJ Last administered on 03/12/17 13:50; Start 03/12/17 at 13:30; Stop 03/12/17 at 13:33 ; Status DC Midazolam HCl (Versed) 2 mg 1X ONCE IV Last administered on 03/12/17 13:50; Start 03/12/17 at 13:30; Stop 03/12/17 at 13:33; Status DC Fentanyl Citrate (Fentanyl 2ml Vial) 100 mcg 1X ONCE IV Last administered on 03/12/17 13:50; Start 03/12/17 at 13:30; Stop 03/12/17 at 13:33; Status DC Lactobacillus Rhamnosus (Culturelle) 1 cap BID PO Last administered on 21:20; Start 03/12/17 at 21:00; Stop 03/25/17 at 21:06; Status DC Acetaminophen/ Hydrocodone Bitart (Lortab 7.5/325) 1 tab PRN Q6HRS PRN PO MODERATE - SEVERE PAIN Last administered on 04/09/17 01:45; Start 03/12/17 at 18:15 Ondansetron HCl (Zofran) 4 mg PRN Q6HRS PRN IV NAUSEA/VOMITING, 1ST CHOICE Last administered on 03/25/17 04:53; Start 03/13/17 at 09:00 Furosemide (Lasix) 40 mg QODAY PO Last administered on 03/22/17 09:39; Start 03/14/17 at 09:00; Stop 03/26/17 at 09:00; Status DC Glimepiride (Amaryl) 1 mg DAILY08 PO Last administered on 03/22/17 09:40; Start 03/14/17 at 08:00; Stop 03/23/17 at 08:52; Status DC Linezolid (Zyvox) 600 mg BID PO Last administered on 03/24/17 21:20; Start 03/14/17 at 13:15; Stop 03/25/17 at 10:49; Status DC Meropenem (Merrem) 500 mg Q8HRS IVP Last administered on 03/30/17 06:04; Start 03/16/17 at 14:00; Stop 03/30/17 at 07:49; Status DC Iohexol (Omnipaque 240 Mg/ml) 50 ml STK-MED ONCE .ROUTE ; Start 03/19/17 at 13: 11; Stop 03/19/17 at 13:12; Status DC Iohexol (Omnipaque 240 Mg/ml) 10 ml 1X ONCE IJ Last administered on 14:07; Start 03/19/17 at 14:00; Stop 03/19/17 at 14:01; Status DC Info (Do NOT chart on this entry -- for MONITORING) 1 each PRN DAILY PRN MC SEE COMMENTS; Start 03/19/17 at 14:00; Stop 03/21/17 at 13:59; Status DC Iohexol (Omnipaque 240 Mg/ml) 50 ml STK-MED ONCE .ROUTE ; Start 03/19/17 at 13: 55; Stop 03/19/17 at 13:56; Status DC Fluconazole (Diflucan) 200 mg DAILY PO Last administered on 03/23/17 09:24; Start 03/22/17 at 09:30; Stop 03/25/17 at 10:51; Status DC Metoprolol Succinate (Toprol Xl) 12.5 mg DAILY PO Last administered on 08:57; Start 03/23/17 at 09:00 Glimepiride (Amaryl) 0.5 mg DAILY08 PO ; Start 03/24/17 at 08:00; Stop at 13:05; Status DC Morphine Sulfate 1 mg PRN Q10MIN PRN IV SEVERE PAIN; Start 03/26/17 at 07:00; Stop 03/26/17 at 07:00; Status DC Ringer's Solution 1,000 ml @ 30 mls/hr Q24H IV ; Start 03/26/17 at 07:00; Stop 03/26/17 at 07:00; Status DC Lidocaine HCl (Xylocaine-Mpf 1% Vial) 2 ml PRN 1X PRN ID PRIOR TO IV START; Start 03/26/17 at 07:00; Stop 03/26/17 at 07:00; Status DC Hydromorphone HCl (Dilaudid) 0.5 mg PRN Q10MIN PRN IV SEV PAIN, Second choice; Start 03/26/17 at 07:00; Stop 03/27/17 at 06:59; Status Cancel Prochlorperazine Edisylate (Compazine) 5 mg PACU PRN PRN IV NAUSEA, MRX1 Last administered on 03/25/17 07:45; Start 03/26/17 at 07:00; Stop 03/26/17 at 07 :00; Status DC Morphine Sulfate 1 mg PRN Q10MIN PRN IV SEVERE PAIN; Start 03/24/17 at 07:45; Stop 03/25/17 at 07:44; Status DC Ringer's Solution 1,000 ml @ 30 mls/hr Q24H IV Last administered on 14:15; Start 03/24/17 at 07:32; Stop 03/24/17 at 19:31; Status DC Lidocaine HCl (Xylocaine-Mpf 1% Vial) 2 ml 1X PRN PRN ID IV START; Start 03/24 at 07:45; Stop 03/25/17 at 07:44; Status DC Hydromorphone HCl (Dilaudid) 0.5 mg PRN Q10MIN PRN IV SEV PAIN, Second choice; Start 03/24/17 at 07:45; Stop 03/25/17 at 07:44; Status DC Prochlorperazine Edisylate (Compazine) 5 mg PACU PRN PRN IV NAUSEA, MRX1; Start 03/24/17 at 07:45; Stop 03/25/17 at 07:44; Status DC Bupivacaine HCl/ Epinephrine Bitart (Sensorcain-Mpf Epi 0.5%-[id number]) 30 ml STK -MED ONCE .ROUTE Last administered on 03/24/17 15:56; Start 03/24/17 at 10: 28; Stop 03/24/17 at 10:29; Status DC Neostigmine Methylsulfate (Bloxiverz) 10 mg STK-MED ONCE .ROUTE ; Start at 14:38; Stop 03/24/17 at 14:39; Status DC Rocuronium Fleming (Zemuron) 50 mg STK-MED ONCE .ROUTE ; Start 03/24/17 at 14: 38; Stop 03/24/17 at 14:39; Status DC Fentanyl Citrate (Fentanyl 2ml Vial) 100 mcg STK-MED ONCE .ROUTE ; Start at 14:38; Stop 03/24/17 at 14:39; Status DC Phenylephrine HCl 1 mg STK-MED ONCE IV ; Start 03/24/17 at 14:40; Stop at 14:41; Status DC Lidocaine HCl (Lidocaine Pf 2% Vial) 5 ml STK-MED ONCE .ROUTE ; Start 03/24/17 at 14:40; Stop 03/24/17 at 14:41; Status DC Dexamethasone Sodium Phosphate (Decadron) 20 mg STK-MED ONCE .ROUTE ; Start at 14:40; Stop 03/24/17 at 14:41; Status DC Ondansetron HCl (Zofran) 4 mg STK-MED ONCE .ROUTE ; Start 03/24/17 at 14:40; Stop 03/24/17 at 14:41; Status DC Propofol 20 ml @ As Directed STK-MED ONCE IV ; Start 03/24/17 at 14:40; Stop 03/24/17 at 14:41; Status DC Glycopyrrolate (Robinul) 1 mg STK-MED ONCE .ROUTE ; Start 03/24/17 at 15:11; Stop 03/24/17 at 15:12; Status DC Rocuronium Fleming (Zemuron) 50 mg STK-MED ONCE .ROUTE ; Start 03/24/17 at 15: 53; Stop 03/24/17 at 15:54; Status DC Fentanyl Citrate (Fentanyl 2ml Vial) 100 mcg STK-MED ONCE .ROUTE ; Start at 16:01; Stop 03/24/17 at 16:02; Status DC Morphine Sulfate 10 mg STK-MED ONCE .ROUTE ; Start 03/24/17 at 16:02; Stop at 16:03; Status DC Albumin Human 500 ml @ As Directed STK-MED ONCE IV ; Start 03/24/17 at 17:03; Stop 03/24/17 at 17:04; Status DC Phenylephrine HCl (Corky-Synephrine Inj) 10 mg STK-MED ONCE .ROUTE ; Start at 17:27; Stop 03/24/17 at 17:28; Status DC Rocuronium Fleming (Zemuron) 100 mg STK-MED ONCE .ROUTE ; Start 03/24/17 at 17: 57; Stop 03/24/17 at 17:58; Status DC Enoxaparin Sodium (Lovenox 40mg Syringe) 40 mg Q24H SQ Last administered on 20:51; Start 03/24/17 at 20:45; Stop 03/26/17 at 19:34; Status DC Sodium Chloride (Normal Saline Flush) 3 ml QSHIFT PRN IV AFTER MEDS AND BLOOD DRAWS; Start 03/24/17 at 20:45 Ringer's Solution 1,000 ml @ 100 mls/hr Q10H IV Last administered on 12:32; Start 03/24/17 at 20:43; Stop 03/25/17 at 16:52; Status DC Naloxone HCl (Narcan) 0.4 mg PRN Q2MIN PRN IV SEE INSTRUCTIONS; Start at 20:45 Sodium Chloride 1,000 ml @ 25 mls/hr Q24H IV Last administered on 03/27/17 12:08; Start 03/24/17 at 20:43 Hydromorphone HCl 30 ml @ 0 mls/hr CONT PRN PRN IV PROTOCOL Last administered on 03/24/17 23:16; Start 03/24/17 at 20:45 Prochlorperazine Edisylate (Compazine) 5 mg PRN Q4HRS PRN IV NAUSEA/VOMITING, 2ND CHOICE; Start 03/25/17 at 07:45 Pantoprazole Sodium (PROTONIX VIAL for IV PUSH) 40 mg DAILYAC IVP Last administered on 04/08/17 08:56; Start 03/25/17 at 10:15 Linezolid 300 ml @ 300 mls/hr Q12HR IV Last administered on 03/26/17 20:54; Start 03/25/17 at 11:00; Stop 03/27/17 at 08:05; Status DC Fluconazole/ Sodium Chloride 100 ml @ 100 mls/hr Q24H IV Last administered on 04/07/17 11:52; Start 03/25/17 at 11:00; Stop 04/07/17 at 13:39; Status DC Dextrose/Lactated Ringer's 1,000 ml @ 75 mls/hr [id number] IV Last administered on 04/03/17 08:54; Start 03/25/17 at 17:00; Stop 04/04/17 at 09:23; Status DC Famotidine (Pepcid Vial) 40 mg QHS IVP Last administered on 03/28/17 21:35; Start 03/25/17 at 21:00; Stop 03/29/17 at 08:02; Status DC Lorazepam (Ativan) 0.5 mg 1X ONCE IV ; Start 03/26/17 at 07:00; Stop at 07:01; Status Cancel Lorazepam (Ativan) 0.5 mg PRN Q8HRS PRN PO ANXIETY / AGITATION; Start at 07:00; Status Cancel Furosemide (Lasix) 40 mg 1X ONCE IVP Last administered on 03/26/17 09:54; Start 03/26/17 at 09:00; Stop 03/26/17 at 09:01; Status DC Furosemide (Lasix) 20 mg DAILY IVP Last administered on 03/30/17 09:29; Start 03/27/17 at 09:00; Stop 03/31/17 at 12:22; Status DC Digoxin (Lanoxin) 250 mcg 1X ONCE IV Last administered on 03/26/17 15:06; Start 03/26/17 at 15:15; Stop 03/26/17 at 15:16; Status DC Iohexol (Omnipaque 300 Mg/ml) 75 ml 1X ONCE IV Last administered on 16:41; Start 03/26/17 at 16:45; Stop 03/26/17 at 16:46; Status DC Info (Do NOT chart on this entry -- for MONITORING) 1 each PRN DAILY PRN MC SEE COMMENTS; Start 03/26/17 at 16:45; Stop 03/28/17 at 16:44; Status DC Norepinephrine Bitartrate 250 ml @ As Directed STK-MED ONCE IV ; Start at 17:42; Stop 03/26/17 at 17:43; Status DC Norepinephrine Bitartrate 250 ml @ 0 mls/hr CONT PRN IV SEE I/O RECORD Last administered on 03/26/17 18:01; Start 03/26/17 at 18:00; Stop 04/04/17 at 09 :57; Status DC Enoxaparin Sodium (Lovenox Per Pharmacy Treatment Dosing) 1 each PRN DAILY PRN MC SEE COMMENTS; Start 03/26/17 at 19:30; Stop 03/28/17 at 12:38; Status DC Enoxaparin Sodium (Lovenox 80mg Syringe) 80 mg Q12HR SQ Last administered on 21:51; Start 03/26/17 at 20:00; Stop 03/28/17 at 15:36; Status DC Daptomycin 460 mg/ Sodium Chloride 50 ml @ 100 mls/hr Q24H IV Last administered on 04/08/17 08:56; Start 03/27/17 at 09:00 Digoxin (Lanoxin) 250 mcg 1X ONCE IV Last administered on 03/27/17 12:09; Start 03/27/17 at 12:00; Stop 03/27/17 at 12:01; Status DC Insulin Detemir (Levemir) 5 units QHS SQ Last administered on 04/04/17 21:30 ; Start 03/27/17 at 21:00; Stop 04/05/17 at 09:34; Status DC Albumin Human 100 ml @ 100 mls/hr Q8H IV Last administered on 03/29/17 00:42 ; Start 03/28/17 at 09:00; Stop 03/29/17 at 01:59; Status DC Lorazepam (Ativan) 1 mg PRN Q6HRS PRN PO ANXIETY / AGITATION Last administered on 04/07/17 05:43; Start 03/28/17 at 16:00; Stop 04/07/17 at 16:34; Status DC Iohexol (Omnipaque 300 Mg/ml) 75 ml 1X ONCE IV Last administered on 16:00; Start 03/28/17 at 16:00; Stop 03/28/17 at 16:02; Status DC Info (Do NOT chart on this entry -- for MONITORING) 1 each PRN DAILY PRN MC SEE COMMENTS; Start 03/28/17 at 16:15; Stop 03/30/17 at 16:14; Status DC Fentanyl Citrate (Fentanyl 2ml Vial) 50 mcg PRN Q4HRS PRN IV PAIN Last administered on 04/01/17 08:14; Start 03/29/17 at 09:45 Ciprofloxacin/ Dextrose 200 ml @ 200 mls/hr Q12HR IV Last administered on 08:58; Start 03/30/17 at 09:00; Stop 04/04/17 at 10:45; Status DC Lorazepam (Ativan) 0.5 mg Q12HR PO Last administered on 04/08/17 21:09; Start 03/30/17 at 21:00 Dopamine HCl/ Dextrose 250 ml @ 15.155 mls/ hr CONT PRN IV SEE I/O RECORD Last administered on 04/06/17 15:44; Start 03/31/17 at 13:00 Info 1 each PRN DAILY PRN MC SEE COMMENTS Last administered on 04/08/17 07:38 ; Start 04/03/17 at 12:15 Sodium Chloride 90 meq/Potassium Chloride 50 meq/ Potassium Phosphate 20.4 mmol/ Magnesium Sulfate 10 meq/ Calcium Gluconate 10 meq/ Multivitamins 10 ml/Chromium / Copper/Manganese/ Seleni/Zn 1 ml/ Total Parenteral Nutrition/Amino Acids/ Dextrose/ Fat Emulsion Intravenous 1,512 ml @ 63 mls/hr TPN CONT IV Last administered on 04/03/17 21:38; Start 04/03/17 at 22:00; Stop 04/04/17 at 21 :59; Status DC Levofloxacin/ Dextrose 100 ml @ 100 mls/hr Q24H IV Last administered on 21:47; Start 04/04/17 at 21:00; Stop 04/07/17 at 13:39; Status DC Furosemide (Lasix) 40 mg DAILY IVP Last administered on 04/08/17 08:56; Start 04/04/17 at 12:00 Sodium Chloride 90 meq/Potassium Chloride 50 meq/ Potassium Phosphate 20.4 mmol/ Magnesium Sulfate 16 meq/ Calcium Gluconate 10 meq/ Multivitamins 10 ml/Chromium / Copper/Manganese/ Seleni/Zn 1 ml/ Total Parenteral Nutrition/Amino Acids/ Dextrose/ Fat Emulsion Intravenous 1,512 ml @ 63 mls/hr TPN CONT IV Last administered on 04/04/17 21:16; Start 04/04/17 at 22:00; Stop 04/05/17 at 21 :59; Status DC Insulin Detemir (Levemir) 20 units QHS SQ Last administered on 04/08/17 21:31 ; Start 04/05/17 at 21:00 Insulin Detemir (Levemir) 10 units 1X ONCE SQ Last administered on 04/05/17 14:12; Start 04/05/17 at 09:45; Stop 04/05/17 at 09:46; Status DC Sodium Chloride 90 meq/Potassium Chloride 50 meq/ Potassium Phosphate 20.4 mmol/ Magnesium Sulfate 24 meq/ Calcium Gluconate 10 meq/ Multivitamins 10 ml/Chromium / Copper/Manganese/ Seleni/Zn 1 ml/ Total Parenteral Nutrition/Amino Acids/ Dextrose/ Fat Emulsion Intravenous 1,512 ml @ 63 mls/hr TPN CONT IV Last administered on 04/05/17 20:55; Start 04/05/17 at 22:00; Stop 04/06/17 at 21: 59; Status DC Iohexol (Omnipaque 300 Mg/ml) 75 ml 1X ONCE IV ; Start 04/05/17 at 13:00; Stop 04/05/17 at 13:01; Status DC Iohexol (Omnipaque 240 Mg/ml) 30 ml 1X ONCE PO ; Start 04/05/17 at 13:00; Stop 04/05/17 at 13:01; Status DC Info (Do NOT chart on this entry -- for MONITORING) 1 each PRN DAILY PRN MC SEE COMMENTS; Start 04/05/17 at 13:00; Stop 04/07/17 at 12:59; Status DC Sodium Chloride 90 meq/Potassium Chloride 50 meq/ Potassium Phosphate 20.4 mmol/ Magnesium Sulfate 24 meq/ Calcium Gluconate 10 meq/ Multivitamins 10 ml/Chromium / Copper/Manganese/ Seleni/Zn 1 ml/ Total Parenteral Nutrition/Amino Acids/ Dextrose/ Fat Emulsion Intravenous 1,512 ml @ 63 mls/hr TPN CONT IV Last administered on 04/06/17 21:45; Start 04/06/17 at 22:00; Stop 04/07/17 at 21:59 ; Status DC Lidocaine/Sodium Bicarbonate (Buffered Lidocaine 1%) 20 ml STK-MED ONCE IJ ; Start 04/06/17 at 14:28; Stop 04/06/17 at 14:29; Status DC Fentanyl Citrate (Fentanyl 2ml Vial) 100 mcg STK-MED ONCE .ROUTE ; Start at 14:45; Stop 04/06/17 at 14:46; Status DC Midazolam HCl (Versed) 2 mg STK-MED ONCE .ROUTE ; Start 04/06/17 at 14:45; Stop 04/06/17 at 14:46; Status DC Flumazenil (Romazicon) 0.5 mg STK-MED ONCE IV ; Start 04/06/17 at 14:45; Stop 04/06/17 at 14:46; Status DC Naloxone HCl (Narcan) 0.4 mg STK-MED ONCE .ROUTE ; Start 04/06/17 at 14:45; Stop 04/06/17 at 14:46; Status DC Dopamine HCl/ Dextrose 250 ml @ As Directed STK-MED ONCE IV ; Start 04/06/17 at 14:50; Stop 04/06/17 at 14:51; Status DC Lidocaine/Sodium Bicarbonate (Buffered Lidocaine 1%) 7 ml 1X ONCE IJ Last administered on 04/06/17 15:20; Start 04/06/17 at 15:30; Stop 04/06/17 at 15:31 ; Status DC Sodium Chloride 90 meq/Potassium Chloride 50 meq/ Potassium Phosphate 13.6 mmol/ Magnesium Sulfate 20 meq/ Calcium Gluconate 10 meq/ Multivitamins 10 ml/Chromium / Copper/Manganese/ Seleni/Zn 1 ml/ Total Parenteral Nutrition/Amino Acids/ Dextrose/ Fat Emulsion Intravenous 1,512 ml @ 63 mls/hr TPN CONT IV Last administered on 04/07/17 21:19; Start 04/07/17 at 22:00; Stop 04/08/17 at 21:59 ; Status DC Micafungin Sodium 100 mg/Sodium Chloride 100 ml @ 100 mls/hr Q24H IV Last administered on 04/08/17 13:42; Start 04/07/17 at 14:00 Metronidazole 100 ml @ 100 mls/hr Q8HRS IV Last administered on 04/09/17 06: 08; Start 04/07/17 at 14:00 Cefepime HCl 1 gm/ Dextrose 50 ml @ 100 mls/hr Q8HRS IV ; Start 04/07/17 at 14: 00; Status UNV Cefepime HCl (Maxipime) 1 gm Q8HRS IVP Last administered on 04/09/17 06:07; Start 04/07/17 at 14:00 Sodium Chloride 90 meq/Potassium Chloride 50 meq/ Potassium Phosphate 13.6 mmol/ Magnesium Sulfate 20 meq/ Calcium Gluconate 10 meq/ Multivitamins 10 ml/Chromium / Copper/Manganese/ Seleni/Zn 1 ml/ Total Parenteral Nutrition/Amino Acids/ Dextrose/ Fat Emulsion Intravenous 1,512 ml @ 63 mls/hr TPN CONT IV Last administered on 04/08/17t 21:23; Start 04/08/17 at 22:00; Stop 04/09/17 at 21:59 Furosemide (Lasix) 40 mg 1X ONCE IVP ; Start 04/09/17 at 08:15; Stop 04/09/17 at 08:16; Status DC Active Scripts Active Reported Flagyl (Metronidazole) 500 Mg Tablet 1 Tab PO BID Cefpodoxime Proxetil 200 Mg Tablet 1 Tab PO BID Ferrous Sulfate 325 Mg Tablet 1 Tab PO DAILY Lasix (Furosemide) 40 Mg Tablet 40 Mg PO QODAY Potassium Chloride 10 Meq Capsule.er 10 Meq PO QODAY Metoprolol Tartrate 25 Mg Tablet 12.5 Mg PO BID Atorvastatin Calcium 40 Mg Tablet 40 Mg PO HS Clopidogrel (Clopidogrel Bisulfate) 75 Mg Tablet 1 Tab PO DAILY Diclofenac Sodium 75 Mg Tablet.dr 75 Mg PO DAILY Ranitidine Hcl 150 Mg Tablet 1 Tab PO BID Aspirin 81 Mg Tab.chew 1 Tab PO DAILY Vitals/I & O Vital Sign - Last 24 Hours 04/08/17 04/08/17 04/08/17 04/08/17 08:57 09:00 10:00 10:30 Temp 99.7 99.7 Pulse 101 97 Resp 20 32 B/P (MAP) 97/35 93/52 (66) Pulse Ox 99 99 O2 Delivery BiPAP/CPAP BiPAP/CPAP O2 Flow Rate 5.0 5.0 04/08/17 04/08/17 04/08/17 04/08/17 10:38 12:56 14:37 15:20 Temp 97.3 97.3 Pulse 93 Resp 30 B/P (MAP) 109/50 (69) Pulse Ox 98 93 O2 Delivery BiPAP/CPAP Nasal Cannula BiPAP/CPAP BiPAP/CPAP O2 Flow Rate 5.0 04/08/17 04/08/17 04/08/17 04/08/17 16:13 16:30 16:57 17:30 Temp 99.5 99.3 99.3 99.5 99.3 99.3 Pulse 96 98 94 Resp 40 45 45 B/P (MAP) 106/50 100/56 114/57 O2 Delivery BiPAP/CPAP 04/08/17 04/08/17 04/08/17 04/08/17 18:30 18:36 19:30 19:50 Temp 99.3 98.9 99.5 99.3 98.9 99.5 Pulse 98 98 100 Resp 45 34 36 B/P (MAP) 113/56 117/56 115/55 (75) Pulse Ox 98 O2 Delivery BiPAP/CPAP BiPAP/CPAP 04/08/17 04/08/17 04/08/17 04/08/17 20:00 20:00 20:40 23:30 Temp 99.5 99.5 Pulse 98 Resp 40 B/P (MAP) 111/55 (73) Pulse Ox 98 98 O2 Delivery Bi-pap BiPAP/CPAP BiPAP/CPAP O2 Flow Rate 5.0 04/08/17 04/09/17 04/09/17 04/09/17 23:34 01:45 01:58 02:45 Resp 34 34 Pulse Ox 98 98 98 98 O2 Delivery BiPAP/CPAP Nasal Cannula BiPAP/CPAP BiPAP/CPAP O2 Flow Rate 5.0 04/09/17 04/09/17 04/09/17 04/09/17 03:00 04:20 05:45 07:37 Temp 98.3 98.3 Pulse 90 87 Resp 40 B/P (MAP) 108/48 (68) Pulse Ox 96 98 98 O2 Delivery BiPAP/CPAP BiPAP/CPAP BiPAP/CPAP Intake and Output 04/08/17 04/08/17 04/09/17 15:00 23:00 07:00 Intake Total 150 ml 200 ml 1050 ml Output Total 1150 ml 700 ml 500 ml Balance -1000 ml -500 ml 550 ml DANNY MEZA MD Apr 09, 2017 08:54
[2017-04-09 09:04] LABS: HCO3 ABG 25 mmol/L (21-28); PCO2 ABG 34 mmHg (35-46); PH ABG 7.47 (7.35-7.45); PO2 ABG 75 mmHg (65-108); SAT O2 ABG 94 % (92-99)
--- NOTE | 2017-04-09 09:07 | RAD ---
Examination: Single frontal view of the chest History: History of shortness of breath Comparison: 04/04/2017 Findings: Low lung volumes and technique accentuates heart size and pulmonary vascularity. The right-sided PICC line is unchanged. Mild elevation of the right hemidiaphragm similar to prior exam. Probable small bilateral pleural effusions with bibasal lung consolidation changes likely pneumonia or atelectasis. There is mild prominent appearing bilateral interstitial lung markings likely mild congestive changes. Impression: 1. Mild prominent appearing bilateral interstitial lung markings likely mild congestive changes with bibasal lung airspace opacities likely atelectasis or infiltrates and small bilateral pleural effusions.
[2017-04-09 09:08] LABS: FIO2 ABG 35
[2017-04-09] MEDS: FUROSEMIDE 40 MG/4 ML VIAL. IVP SCH (10:03)
[2017-04-09] MEDS: PANTOPRAZOLE IV PUSH 40 MG VIAL. IVP SCH (10:03)
[2017-04-09] MEDS: LORazepam 0.5 MG TABLET PO SCH ×2 (10:04→21:42)
[2017-04-09] MEDS: METOPROLOL SUCC 24HR ER 25 MG TAB.ER.24H. PO SCH (10:04)
[2017-04-09] MEDS: FERROUS SULFATE 325 MG TABLET. PO SCH (10:05)
[2017-04-09] MEDS: ASPIRIN CHEWABLE 81 MG TABLET. PO SCH (10:05)
[2017-04-09] MEDS: DAPTOMYCIN IV SCH (10:23)
[2017-04-09] MEDS: NORMAL SALINE IV SCH (10:23)
[2017-04-09] MEDS: TPN PER PHARMACY MC PRN (13:49)
[2017-04-09] MEDS: MICAFUNGIN 100 MG in IV NORMAL SALINE 100ML 100 ML IV SCH (14:00)
--- NOTE | 2017-04-09 14:12 | PDOC2 ---
PALLIATIVE CARE Palliative Care Note Palliative Care Consult requested by Dr. Ivey to assist with discussion of goals of care. Medical Record Reviewed and and met with son Chris. Diagnosis: Acute/Chronic respiratory failure--currently on BiPap Status post laparoscopic converted to open exploration for extensive lysis of adhesion, removal of old mesh, subtotal colectomy, small bowel resection and incisional hernia repair.Now with brown drainage from wound. entero-cutaneous fistula/ abscess Obesity Enterocutaneous fistula. Abdominal abscess. Ventral hernia, status post repair. Anemia Swelling LE - doppler negative for DVT Multiple wounds (nasal bridge from bipap, dehiscence of abdominal wound, etc.) Patient alert and on BiPap. RR 28-32. Received permission to meet with son Chris. patient acknowledges serious illness, abdominal surgeries, and respiratory decline. She indicated verbally that she wanted to continue with current treatment plan Met with Chris. He had spoke with Dr. Ivey and could accurately verbalized his mothers' medical condition and her decline. He shared that patient had said in the past that she never wanted to be kept alive on machines, but wouldn't mind trial if "they thought she could get better." Chris wants to speak with his mother alone before making any decisions. 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 Plan: Full Code Continue current treatment plan Re-visit tomorrow. KATI ROSE Apr 09, 2017 14:12
--- NOTE | 2017-04-09 17:32 | PDOC ---
PROGRESS NOTES Subjective Subjective late entry-pt seen earlier in the day, transferring to ICU, difficulty with respiratory status, fatigued Objective Objective Vital Signs Date Time Temp Pulse Resp B/P (MAP) Pulse Ox O2 Delivery O2 Flow Rate FiO2 04/09/17 17:00 94 28 102/52 (69) 99 BiPAP/CPAP 5.0 04/09/17 16:00 98.0 98.0 Intake and Output 04/09/17 07:00 Intake Total 1400 ml Output Total 2350 ml Balance -950 ml Intake Oral 420 ml IV Total 980 ml Output Urine Total 2100 ml Stool Total 250 ml Physical Exam Physical Exam abdomen similar to before, ostomy output good, open wound with serous drainage Assessment Assessment Problems Medical Problems: (1) Abdominal abscess Status: Acute (2) Abdominal pain Status: Acute Plan Plan of Care Supportive care, difficult situation, difficulty with recovery Comment Review of Relevant I have reviewed the following items chito (where applicable) has been applied. Labs Laboratory Tests Test 04/07/17 21:10 04/08/17 06:00 04/08/17 07:23 04/08/17 11:42 Glucose (Fingerstick) 218 mg/dL (70-99) 169 mg/dL (70-99) 216 mg/dL (70-99) White Blood Count 7.6 x10^3/uL (4.0-11.0) Red Blood Count 2.48 x10^6/uL (3.50-5.40) Hemoglobin 6.9 g/dL (12.0-15.5) Hematocrit 21.5 % (36.0-47.0) Mean Corpuscular Volume 87 fL (79-100) Mean Corpuscular Hemoglobin 28 pg (25-35) Mean Corpuscular Hemoglobin Concent 32 g/dL (31-37) Red Cell Distribution Width 17.9 % (11.5-14.5) Platelet Count 361 x10^3/uL (140-400) Neutrophils (%) (Auto) 83 % (31-73) Lymphocytes (%) (Auto) 9 % (24-48) Monocytes (%) (Auto) 8 % (0-9) Eosinophils (%) (Auto) 0 % (0-3) Basophils (%) (Auto) 0 % (0-3) Neutrophils # (Auto) 6.3 x10^3uL (1.8-7.7) Lymphocytes # (Auto) 0.7 x10^3/uL (1.0-4.8) Monocytes # (Auto) 0.6 x10^3/uL (0.0-1.1) Eosinophils # (Auto) 0.0 x10^3/uL (0.0-0.7) Basophils # (Auto) 0.0 x10^3/uL (0.0-0.2) Sodium Level 137 mmol/L (136-145) Potassium Level 4.2 mmol/L (3.5-5.1) Chloride Level 101 mmol/L (98-107) Carbon Dioxide Level 27 mmol/L (21-32) Anion Gap 9 (6-14) Blood Urea Nitrogen 20 mg/dL (7-20) Creatinine 0.7 mg/dL (0.6-1.0) Estimated GFR (Cockcroft-Gault) 82.5 Glucose Level 187 mg/dL (70-99) Calcium Level 7.8 mg/dL (8.5-10.1) Test 04/08/17 17:11 04/08/17 20:44 04/09/17 06:00 04/09/17 08:55 Glucose (Fingerstick) 148 mg/dL (70-99) 164 mg/dL (70-99) White Blood Count 7.8 x10^3/uL (4.0-11.0) Red Blood Count 2.69 x10^6/uL (3.50-5.40) Hemoglobin 7.7 g/dL (12.0-15.5) Hematocrit 23.2 % (36.0-47.0) Mean Corpuscular Volume 86 fL (79-100) Mean Corpuscular Hemoglobin 29 pg (25-35) Mean Corpuscular Hemoglobin Concent 33 g/dL (31-37) Red Cell Distribution Width 17.6 % (11.5-14.5) Platelet Count 341 x10^3/uL (140-400) Sodium Level 138 mmol/L (136-145) Potassium Level 3.6 mmol/L (3.5-5.1) Chloride Level 104 mmol/L (98-107) Carbon Dioxide Level 29 mmol/L (21-32) Anion Gap 5 (6-14) Blood Urea Nitrogen 20 mg/dL (7-20) Creatinine 0.7 mg/dL (0.6-1.0) Estimated GFR (Cockcroft-Gault) 82.5 BUN/Creatinine Ratio 29 (6-20) Glucose Level 134 mg/dL (70-99) Calcium Level 8.0 mg/dL (8.5-10.1) Phosphorus Level 4.1 mg/dL (2.6-4.7) Magnesium Level 2.3 mg/dL (1.8-2.4) Total Bilirubin 0.4 mg/dL (0.2-1.0) Aspartate Amino Transf (AST/SGOT) 32 U/L (15-37) Alanine Aminotransferase (ALT/SGPT) 12 U/L (14-59) Alkaline Phosphatase 105 U/L (46-116) Total Protein 4.6 g/dL (6.4-8.2) Albumin 0.8 g/dL (3.4-5.0) Albumin/Globulin Ratio 0.2 (1.0-1.7) O2 Saturation 94 % (92-99) Arterial Blood pH 7.47 (7.35-7.45) Arterial Blood pCO2 at Patient Temp 34 mmHg (35-46) Arterial Blood pO2 at Patient Temp 75 mmHg (65-108) Arterial Blood HCO3 25 mmol/L (21-28) Arterial Blood Base Excess 1 mmol/L (-3-3) FiO2 35 Laboratory Tests Test 04/08/17 20:44 04/09/17 06:00 04/09/17 08:55 Glucose (Fingerstick) 164 mg/dL (70-99) White Blood Count 7.8 x10^3/uL (4.0-11.0) Red Blood Count 2.69 x10^6/uL (3.50-5.40) Hemoglobin 7.7 g/dL (12.0-15.5) Hematocrit 23.2 % (36.0-47.0) Mean Corpuscular Volume 86 fL (79-100) Mean Corpuscular Hemoglobin 29 pg (25-35) Mean Corpuscular Hemoglobin Concent 33 g/dL (31-37) Red Cell Distribution Width 17.6 % (11.5-14.5) Platelet Count 341 x10^3/uL (140-400) Sodium Level 138 mmol/L (136-145) Potassium Level 3.6 mmol/L (3.5-5.1) Chloride Level 104 mmol/L (98-107) Carbon Dioxide Level 29 mmol/L (21-32) Anion Gap 5 (6-14) Blood Urea Nitrogen 20 mg/dL (7-20) Creatinine 0.7 mg/dL (0.6-1.0) Estimated GFR (Cockcroft-Gault) 82.5 BUN/Creatinine Ratio 29 (6-20) Glucose Level 134 mg/dL (70-99) Calcium Level 8.0 mg/dL (8.5-10.1) Phosphorus Level 4.1 mg/dL (2.6-4.7) Magnesium Level 2.3 mg/dL (1.8-2.4) Total Bilirubin 0.4 mg/dL (0.2-1.0) Aspartate Amino Transf (AST/SGOT) 32 U/L (15-37) Alanine Aminotransferase (ALT/SGPT) 12 U/L (14-59) Alkaline Phosphatase 105 U/L (46-116) Total Protein 4.6 g/dL (6.4-8.2) Albumin 0.8 g/dL (3.4-5.0) Albumin/Globulin Ratio 0.2 (1.0-1.7) O2 Saturation 94 % (92-99) Arterial Blood pH 7.47 (7.35-7.45) Arterial Blood pCO2 at Patient Temp 34 mmHg (35-46) Arterial Blood pO2 at Patient Temp 75 mmHg (65-108) Arterial Blood HCO3 25 mmol/L (21-28) Arterial Blood Base Excess 1 mmol/L (-3-3) FiO2 35 Microbiology 04/07/17 Blood Culture - Preliminary, Resulted NO GROWTH AFTER 2 DAYS 04/06/17 Anaerobic/Aerobic Culture, Resulted Pending 04/06/17 Anaerobic Culture Result 1 (KULDEEP), Resulted Pending 04/06/17 Aerobic Culture - Preliminary, Resulted 04/06/17 Aerobic Culture Result 1 (KULDEEP) - Preliminary, Resulted 04/06/17 Aerobic Culture Result 2 (KULDEEP) - Preliminary, Resulted 04/06/17 Aerobic Culture Result 3 (KULDEEP) - Preliminary, Resulted 03/09/17 Urine Culture - Final, Complete 03/09/17 Urine Culture Result 1 (KULDEEP) - Final, Complete 03/12/17 Fungal Culture - Final, Complete 03/12/17 Fungal Culture Result 1 - Final, Complete Medications Current Medications Ondansetron HCl (Zofran) 4 mg 1X ONCE IV Last administered on 03/09/17 08:30 ; Start 03/09/17 at 08:15; Stop 03/09/17 at 08:16; Status DC Iohexol (Omnipaque 300 Mg/ml) 75 ml 1X ONCE IV Last administered on 03/09/17 08:50; Start 03/09/17 at 08:45; Stop 03/09/17 at 08:46; Status DC Info (Do NOT chart on this entry -- for MONITORING) 1 each PRN DAILY PRN MC SEE COMMENTS; Start 03/09/17 at 08:45; Stop 03/11/17 at 08:44; Status DC Ceftriaxone Sodium 50 ml @ 100 mls/hr 1X ONCE IV ; Start 03/09/17 at 09:30; Stop 03/09/17 at 09:55; Status DC Sodium Chloride 1,000 ml @ 1,000 mls/hr 1X ONCE IV Last administered on 09:55; Start 03/09/17 at 10:00; Stop 03/09/17 at 10:59; Status DC Ondansetron HCl (Zofran) 4 mg PRN Q8HRS PRN IV NAUSEA/VOMITING; Start 03/09/17 at 10:30; Stop 03/10/17 at 10:29; Status DC Meropenem 500 mg/ Sodium Chloride 50 ml @ 100 mls/hr Q8HRS IV Last administered on 03/16/17 06:09; Start 03/09/17 at 13:00; Stop 03/16/17 at 12: 59; Status DC Acetaminophen (Tylenol) 650 mg PRN QID PRN PO MILD PAIN / TEMP Last administered on 03/30/17 17:43; Start 03/09/17 at 20:30 Aspirin (Children'S Aspirin) 81 mg DAILY PO Last administered on 04/09/17 10: 05; Start 03/10/17 at 15:00 Clopidogrel Bisulfate (Plavix) 75 mg DAILY PO Last administered on 03/19/17 10:00; Start 03/10/17 at 15:00; Stop 03/22/17 at 09:10; Status DC Ferrous Sulfate (Feosol) 325 mg DAILY PO Last administered on 04/09/17 10:05; Start 03/10/17 at 15:00 Metoprolol Tartrate (Lopressor) 12.5 mg BID PO Last administered on 03/10/17 16:01; Start 03/10/17 at 15:00; Stop 03/10/17 at 21:01; Status DC Diclofenac Sodium (Voltaren) 75 mg DAILY PO Last administered on 03/23/17 09: 23; Start 03/10/17 at 14:30; Stop 03/29/17 at 10:50; Status DC Famotidine (Pepcid) 20 mg QHS PO Last administered on 03/24/17 21:20; Start 03/10/17 at 21:00; Stop 03/26/17 at 09:35; Status DC Glimepiride (Amaryl) 1 mg DAILY PO Last administered on 03/13/17 09:25; Start 03/11/17 at 15:00; Stop 03/13/17 at 17:02; Status DC Sodium Chloride 1,000 ml @ 100 mls/hr 1X ONCE IV Last administered on 21:00; Start 03/10/17 at 21:00; Stop 03/11/17 at 06:59; Status DC Lidocaine/Sodium Bicarbonate (Buffered Lidocaine 1%) 20 ml STK-MED ONCE IJ ; Start 03/12/17 at 13:05; Stop 03/12/17 at 13:06; Status DC Fentanyl Citrate (Fentanyl 2ml Vial) 100 mcg STK-MED ONCE .ROUTE ; Start at 13:20; Stop 03/12/17 at 13:21; Status DC Midazolam HCl (Versed) 2 mg STK-MED ONCE .ROUTE ; Start 03/12/17 at 13:20; Stop 03/12/17 at 13:21; Status DC Flumazenil (Romazicon) 0.5 mg STK-MED ONCE IV ; Start 03/12/17 at 13:20; Stop 03/12/17 at 13:21; Status DC Naloxone HCl (Narcan) 0.4 mg STK-MED ONCE .ROUTE ; Start 03/12/17 at 13:20; Stop 03/12/17 at 13:21; Status DC Lidocaine/Sodium Bicarbonate (Buffered Lidocaine 1%) 20 ml 1X ONCE IJ Last administered on 03/12/17 13:50; Start 03/12/17 at 13:30; Stop 03/12/17 at 13:33 ; Status DC Midazolam HCl (Versed) 2 mg 1X ONCE IV Last administered on 03/12/17 13:50; Start 03/12/17 at 13:30; Stop 03/12/17 at 13:33; Status DC Fentanyl Citrate (Fentanyl 2ml Vial) 100 mcg 1X ONCE IV Last administered on 03/12/17 13:50; Start 03/12/17 at 13:30; Stop 03/12/17 at 13:33; Status DC Lactobacillus Rhamnosus (Culturelle) 1 cap BID PO Last administered on 21:20; Start 03/12/17 at 21:00; Stop 03/25/17 at 21:06; Status DC Acetaminophen/ Hydrocodone Bitart (Lortab 7.5/325) 1 tab PRN Q6HRS PRN PO MODERATE - SEVERE PAIN Last administered on 04/09/17 16:51; Start 03/12/17 at 18:15 Ondansetron HCl (Zofran) 4 mg PRN Q6HRS PRN IV NAUSEA/VOMITING, 1ST CHOICE Last administered on 03/25/17 04:53; Start 03/13/17 at 09:00 Furosemide (Lasix) 40 mg QODAY PO Last administered on 03/22/17 09:39; Start 03/14/17 at 09:00; Stop 03/26/17 at 09:00; Status DC Glimepiride (Amaryl) 1 mg DAILY08 PO Last administered on 03/22/17 09:40; Start 03/14/17 at 08:00; Stop 03/23/17 at 08:52; Status DC Linezolid (Zyvox) 600 mg BID PO Last administered on 03/24/17 21:20; Start 03/14/17 at 13:15; Stop 03/25/17 at 10:49; Status DC Meropenem (Merrem) 500 mg Q8HRS IVP Last administered on 03/30/17 06:04; Start 03/16/17 at 14:00; Stop 03/30/17 at 07:49; Status DC Iohexol (Omnipaque 240 Mg/ml) 50 ml STK-MED ONCE .ROUTE ; Start 03/19/17 at 13: 11; Stop 03/19/17 at 13:12; Status DC Iohexol (Omnipaque 240 Mg/ml) 10 ml 1X ONCE IJ Last administered on t 14:07; Start 03/19/17 at 14:00; Stop 03/19/17 at 14:01; Status DC Info (Do NOT chart on this entry -- for MONITORING) 1 each PRN DAILY PRN MC SEE COMMENTS; Start 03/19/17 at 14:00; Stop 03/21/17 at 13:59; Status DC Iohexol (Omnipaque 240 Mg/ml) 50 ml STK-MED ONCE .ROUTE ; Start 03/19/17 at 13: 55; Stop 03/19/17 at 13:56; Status DC Fluconazole (Diflucan) 200 mg DAILY PO Last administered on 03/23/17 09:24; Start 03/22/17 at 09:30; Stop 03/25/17 at 10:51; Status DC Metoprolol Succinate (Toprol Xl) 12.5 mg DAILY PO Last administered on t 10:04; Start 03/23/17 at 09:00 Glimepiride (Amaryl) 0.5 mg DAILY08 PO ; Start 03/24/17 at 08:00; Stop at 13:05; Status DC Morphine Sulfate 1 mg PRN Q10MIN PRN IV SEVERE PAIN; Start 03/26/17 at 07:00; Stop 03/26/17 at 07:00; Status DC Ringer's Solution 1,000 ml @ 30 mls/hr Q24H IV ; Start 03/26/17 at 07:00; Stop 03/26/17 at 07:00; Status DC Lidocaine HCl (Xylocaine-Mpf 1% Vial) 2 ml PRN 1X PRN ID PRIOR TO IV START; Start 03/26/17 at 07:00; Stop 03/26/17 at 07:00; Status DC Hydromorphone HCl (Dilaudid) 0.5 mg PRN Q10MIN PRN IV SEV PAIN, Second choice; Start 03/26/17 at 07:00; Stop 03/27/17 at 06:59; Status Cancel Prochlorperazine Edisylate (Compazine) 5 mg PACU PRN PRN IV NAUSEA, MRX1 Last administered on 03/25/17 07:45; Start 03/26/17 at 07:00; Stop 03/26/17 at 07 :00; Status DC Morphine Sulfate 1 mg PRN Q10MIN PRN IV SEVERE PAIN; Start 03/24/17 at 07:45; Stop 03/25/17 at 07:44; Status DC Ringer's Solution 1,000 ml @ 30 mls/hr Q24H IV Last administered on 14:15; Start 03/24/17 at 07:32; Stop 03/24/17 at 19:31; Status DC Lidocaine HCl (Xylocaine-Mpf 1% Vial) 2 ml 1X PRN PRN ID IV START; Start 03/24 at 07:45; Stop 03/25/17 at 07:44; Status DC Hydromorphone HCl (Dilaudid) 0.5 mg PRN Q10MIN PRN IV SEV PAIN, Second choice; Start 03/24/17 at 07:45; Stop 03/25/17 at 07:44; Status DC Prochlorperazine Edisylate (Compazine) 5 mg PACU PRN PRN IV NAUSEA, MRX1; Start 03/24/17 at 07:45; Stop 03/25/17 at 07:44; Status DC Bupivacaine HCl/ Epinephrine Bitart (Sensorcain-Mpf Epi 0.5%-[id number]) 30 ml STK -MED ONCE .ROUTE Last administered on 03/24/17 15:56; Start 03/24/17 at 10: 28; Stop 03/24/17 at 10:29; Status DC Neostigmine Methylsulfate (Bloxiverz) 10 mg STK-MED ONCE .ROUTE ; Start at 14:38; Stop 03/24/17 at 14:39; Status DC Rocuronium [place] (Zemuron) 50 mg STK-MED ONCE .ROUTE ; Start 03/24/17 at 14: 38; Stop 03/24/17 at 14:39; Status DC Fentanyl Citrate (Fentanyl 2ml Vial) 100 mcg STK-MED ONCE .ROUTE ; Start at 14:38; Stop 03/24/17 at 14:39; Status DC Phenylephrine HCl 1 mg STK-MED ONCE IV ; Start 03/24/17 at 14:40; Stop at 14:41; Status DC Lidocaine HCl (Lidocaine Pf 2% Vial) 5 ml STK-MED ONCE .ROUTE ; Start 03/24/17 at 14:40; Stop 03/24/17 at 14:41; Status DC Dexamethasone Sodium Phosphate (Decadron) 20 mg STK-MED ONCE .ROUTE ; Start at 14:40; Stop 03/24/17 at 14:41; Status DC Ondansetron HCl (Zofran) 4 mg STK-MED ONCE .ROUTE ; Start 03/24/17 at 14:40; Stop 03/24/17 at 14:41; Status DC Propofol 20 ml @ As Directed STK-MED ONCE IV ; Start 03/24/17 at 14:40; Stop 03/24/17 at 14:41; Status DC Glycopyrrolate (Robinul) 1 mg STK-MED ONCE .ROUTE ; Start 03/24/17 at 15:11; Stop 03/24/17 at 15:12; Status DC Rocuronium [place] (Zemuron) 50 mg STK-MED ONCE .ROUTE ; Start 03/24/17 at 15: 53; Stop 03/24/17 at 15:54; Status DC Fentanyl Citrate (Fentanyl 2ml Vial) 100 mcg STK-MED ONCE .ROUTE ; Start at 16:01; Stop 03/24/17 at 16:02; Status DC Morphine Sulfate 10 mg STK-MED ONCE .ROUTE ; Start 03/24/17 at 16:02; Stop at 16:03; Status DC Albumin Human 500 ml @ As Directed STK-MED ONCE IV ; Start 03/24/17 at 17:03; Stop 03/24/17 at 17:04; Status DC Phenylephrine HCl (Corky-Synephrine Inj) 10 mg STK-MED ONCE .ROUTE ; Start at 17:27; Stop 03/24/17 at 17:28; Status DC Rocuronium [place] (Zemuron) 100 mg STK-MED ONCE .ROUTE ; Start 03/24/17 at 17: 57; Stop 03/24/17 at 17:58; Status DC Enoxaparin Sodium (Lovenox 40mg Syringe) 40 mg Q24H SQ Last administered on 20:51; Start 03/24/17 at 20:45; Stop 03/26/17 at 19:34; Status DC Sodium Chloride (Normal Saline Flush) 3 ml QSHIFT PRN IV AFTER MEDS AND BLOOD DRAWS; Start 03/24/17 at 20:45 Ringer's Solution 1,000 ml @ 100 mls/hr Q10H IV Last administered on 12:32; Start 03/24/17 at 20:43; Stop 03/25/17 at 16:52; Status DC Naloxone HCl (Narcan) 0.4 mg PRN Q2MIN PRN IV SEE INSTRUCTIONS; Start at 20:45 Sodium Chloride 1,000 ml @ 25 mls/hr Q24H IV Last administered on 03/27/17 12:08; Start 03/24/17 at 20:43 Hydromorphone HCl 30 ml @ 0 mls/hr CONT PRN PRN IV PROTOCOL Last administered on 03/24/17 23:16; Start 03/24/17 at 20:45 Prochlorperazine Edisylate (Compazine) 5 mg PRN Q4HRS PRN IV NAUSEA/VOMITING, 2ND CHOICE; Start 03/25/17 at 07:45 Pantoprazole Sodium (PROTONIX VIAL for IV PUSH) 40 mg DAILYAC IVP Last administered on 04/09/17 10:03; Start 03/25/17 at 10:15 Linezolid 300 ml @ 300 mls/hr Q12HR IV Last administered on 03/26/17 20:54; Start 03/25/17 at 11:00; Stop 03/27/17 at 08:05; Status DC Fluconazole/ Sodium Chloride 100 ml @ 100 mls/hr Q24H IV Last administered on 04/07/17 11:52; Start 03/25/17 at 11:00; Stop 04/07/17 at 13:39; Status DC Dextrose/Lactated Ringer's 1,000 ml @ 75 mls/hr [id number] IV Last administered on 04/03/17 08:54; Start 03/25/17 at 17:00; Stop 04/04/17 at 09:23; Status DC Famotidine (Pepcid Vial) 40 mg QHS IVP Last administered on 03/28/17 21:35; Start 03/25/17 at 21:00; Stop 03/29/17 at 08:02; Status DC Lorazepam (Ativan) 0.5 mg 1X ONCE IV ; Start 03/26/17 at 07:00; Stop at 07:01; Status Cancel Lorazepam (Ativan) 0.5 mg PRN Q8HRS PRN PO ANXIETY / AGITATION; Start at 07:00; Status Cancel Furosemide (Lasix) 40 mg 1X ONCE IVP Last administered on 03/26/17 09:54; Start 03/26/17 at 09:00; Stop 03/26/17 at 09:01; Status DC Furosemide (Lasix) 20 mg DAILY IVP Last administered on 03/30/17 09:29; Start 03/27/17 at 09:00; Stop 03/31/17 at 12:22; Status DC Digoxin (Lanoxin) 250 mcg 1X ONCE IV Last administered on 03/26/17 15:06; Start 03/26/17 at 15:15; Stop 03/26/17 at 15:16; Status DC Iohexol (Omnipaque 300 Mg/ml) 75 ml 1X ONCE IV Last administered on 16:41; Start 03/26/17 at 16:45; Stop 03/26/17 at 16:46; Status DC Info (Do NOT chart on this entry -- for MONITORING) 1 each PRN DAILY PRN MC SEE COMMENTS; Start 03/26/17 at 16:45; Stop 03/28/17 at 16:44; Status DC Norepinephrine Bitartrate 250 ml @ As Directed STK-MED ONCE IV ; Start at 17:42; Stop 03/26/17 at 17:43; Status DC Norepinephrine Bitartrate 250 ml @ 0 mls/hr CONT PRN IV SEE I/O RECORD Last administered on 03/26/17 18:01; Start 03/26/17 at 18:00; Stop 04/04/17 at 09 :57; Status DC Enoxaparin Sodium (Lovenox Per Pharmacy Treatment Dosing) 1 each PRN DAILY PRN MC SEE COMMENTS; Start 03/26/17 at 19:30; Stop 03/28/17 at 12:38; Status DC Enoxaparin Sodium (Lovenox 80mg Syringe) 80 mg Q12HR SQ Last administered on 21:51; Start 03/26/17 at 20:00; Stop 03/28/17 at 15:36; Status DC Daptomycin 460 mg/ Sodium Chloride 50 ml @ 100 mls/hr Q24H IV Last administered on 04/09/17 10:23; Start 03/27/17 at 09:00 Digoxin (Lanoxin) 250 mcg 1X ONCE IV Last administered on 03/27/17 12:09; Start 03/27/17 at 12:00; Stop 03/27/17 at 12:01; Status DC Insulin Detemir (Levemir) 5 units QHS SQ Last administered on 04/04/17 21:30 ; Start 03/27/17 at 21:00; Stop 04/05/17 at 09:34; Status DC Albumin Human 100 ml @ 100 mls/hr Q8H IV Last administered on 03/29/17 00:42 ; Start 03/28/17 at 09:00; Stop 03/29/17 at 01:59; Status DC Lorazepam (Ativan) 1 mg PRN Q6HRS PRN PO ANXIETY / AGITATION Last administered on 04/07/17 05:43; Start 03/28/17 at 16:00; Stop 04/07/17 at 16:34; Status DC Iohexol (Omnipaque 300 Mg/ml) 75 ml 1X ONCE IV Last administered on 16:00; Start 03/28/17 at 16:00; Stop 03/28/17 at 16:02; Status DC Info (Do NOT chart on this entry -- for MONITORING) 1 each PRN DAILY PRN MC SEE COMMENTS; Start 03/28/17 at 16:15; Stop 03/30/17 at 16:14; Status DC Fentanyl Citrate (Fentanyl 2ml Vial) 50 mcg PRN Q4HRS PRN IV PAIN Last administered on 04/01/17 08:14; Start 03/29/17 at 09:45 Ciprofloxacin/ Dextrose 200 ml @ 200 mls/hr Q12HR IV Last administered on 08:58; Start 03/30/17 at 09:00; Stop 04/04/17 at 10:45; Status DC Lorazepam (Ativan) 0.5 mg Q12HR PO Last administered on 04/09/17 10:04; Start 03/30/17 at 21:00 Dopamine HCl/ Dextrose 250 ml @ 15.155 mls/ hr CONT PRN IV SEE I/O RECORD Last administered on 04/06/17 15:44; Start 03/31/17 at 13:00 Info 1 each PRN DAILY PRN MC SEE COMMENTS Last administered on 04/09/17 13:49 ; Start 04/03/17 at 12:15 Sodium Chloride 90 meq/Potassium Chloride 50 meq/ Potassium Phosphate 20.4 mmol/ Magnesium Sulfate 10 meq/ Calcium Gluconate 10 meq/ Multivitamins 10 ml/Chromium / Copper/Manganese/ Seleni/Zn 1 ml/ Total Parenteral Nutrition/Amino Acids/ Dextrose/ Fat Emulsion Intravenous 1,512 ml @ 63 mls/hr TPN CONT IV Last administered on 04/03/17 21:38; Start 04/03/17 at 22:00; Stop 04/04/17 at 21 :59; Status DC Levofloxacin/ Dextrose 100 ml @ 100 mls/hr Q24H IV Last administered on 21:47; Start 04/04/17 at 21:00; Stop 04/07/17 at 13:39; Status DC Furosemide (Lasix) 40 mg DAILY IVP Last administered on 04/09/17 10:03; Start 04/04/17 at 12:00 Sodium Chloride 90 meq/Potassium Chloride 50 meq/ Potassium Phosphate 20.4 mmol/ Magnesium Sulfate 16 meq/ Calcium Gluconate 10 meq/ Multivitamins 10 ml/Chromium / Copper/Manganese/ Seleni/Zn 1 ml/ Total Parenteral Nutrition/Amino Acids/ Dextrose/ Fat Emulsion Intravenous 1,512 ml @ 63 mls/hr TPN CONT IV Last administered on 04/04/17 21:16; Start 04/04/17 at 22:00; Stop 04/05/17 at 21 :59; Status DC Insulin Detemir (Levemir) 20 units QHS SQ Last administered on 04/08/17 21:31 ; Start 04/05/17 at 21:00 Insulin Detemir (Levemir) 10 units 1X ONCE SQ Last administered on 04/05/17 14:12; Start 04/05/17 at 09:45; Stop 04/05/17 at 09:46; Status DC Sodium Chloride 90 meq/Potassium Chloride 50 meq/ Potassium Phosphate 20.4 mmol/ Magnesium Sulfate 24 meq/ Calcium Gluconate 10 meq/ Multivitamins 10 ml/Chromium / Copper/Manganese/ Seleni/Zn 1 ml/ Total Parenteral Nutrition/Amino Acids/ Dextrose/ Fat Emulsion Intravenous 1,512 ml @ 63 mls/hr TPN CONT IV Last administered on 04/05/17 20:55; Start 04/05/17 at 22:00; Stop 04/06/17 at 21: 59; Status DC Iohexol (Omnipaque 300 Mg/ml) 75 ml 1X ONCE IV ; Start 04/05/17 at 13:00; Stop 04/05/17 at 13:01; Status DC Iohexol (Omnipaque 240 Mg/ml) 30 ml 1X ONCE PO ; Start 04/05/17 at 13:00; Stop 04/05/17 at 13:01; Status DC Info (Do NOT chart on this entry -- for MONITORING) 1 each PRN DAILY PRN MC SEE COMMENTS; Start 04/05/17 at 13:00; Stop 04/07/17 at 12:59; Status DC Sodium Chloride 90 meq/Potassium Chloride 50 meq/ Potassium Phosphate 20.4 mmol/ Magnesium Sulfate 24 meq/ Calcium Gluconate 10 meq/ Multivitamins 10 ml/Chromium / Copper/Manganese/ Seleni/Zn 1 ml/ Total Parenteral Nutrition/Amino Acids/ Dextrose/ Fat Emulsion Intravenous 1,512 ml @ 63 mls/hr TPN CONT IV Last administered on 04/06/17 21:45; Start 04/06/17 at 22:00; Stop 04/07/17 at 21:59 ; Status DC Lidocaine/Sodium Bicarbonate (Buffered Lidocaine 1%) 20 ml STK-MED ONCE IJ ; Start 04/06/17 at 14:28; Stop 04/06/17 at 14:29; Status DC Fentanyl Citrate (Fentanyl 2ml Vial) 100 mcg STK-MED ONCE .ROUTE ; Start at 14:45; Stop 04/06/17 at 14:46; Status DC Midazolam HCl (Versed) 2 mg STK-MED ONCE .ROUTE ; Start 04/06/17 at 14:45; Stop 04/06/17 at 14:46; Status DC Flumazenil (Romazicon) 0.5 mg STK-MED ONCE IV ; Start 04/06/17 at 14:45; Stop 04/06/17 at 14:46; Status DC Naloxone HCl (Narcan) 0.4 mg STK-MED ONCE .ROUTE ; Start 04/06/17 at 14:45; Stop 04/06/17 at 14:46; Status DC Dopamine HCl/ Dextrose 250 ml @ As Directed STK-MED ONCE IV ; Start 04/06/17 at 14:50; Stop 04/06/17 at 14:51; Status DC Lidocaine/Sodium Bicarbonate (Buffered Lidocaine 1%) 7 ml 1X ONCE IJ Last administered on 04/06/17 15:20; Start 04/06/17 at 15:30; Stop 04/06/17 at 15:31 ; Status DC Sodium Chloride 90 meq/Potassium Chloride 50 meq/ Potassium Phosphate 13.6 mmol/ Magnesium Sulfate 20 meq/ Calcium Gluconate 10 meq/ Multivitamins 10 ml/Chromium / Copper/Manganese/ Seleni/Zn 1 ml/ Total Parenteral Nutrition/Amino Acids/ Dextrose/ Fat Emulsion Intravenous 1,512 ml @ 63 mls/hr TPN CONT IV Last administered on 04/07/17 21:19; Start 04/07/17 at 22:00; Stop 04/08/17 at 21:59 ; Status DC Micafungin Sodium 100 mg/Sodium Chloride 100 ml @ 100 mls/hr Q24H IV Last administered on 04/09/17 14:00; Start 04/07/17 at 14:00 Metronidazole 100 ml @ 100 mls/hr Q8HRS IV Last administered on 04/09/17 15: 00; Start 04/07/17 at 14:00 Cefepime HCl 1 gm/ Dextrose 50 ml @ 100 mls/hr Q8HRS IV ; Start 04/07/17 at 14: 00; Status UNV Cefepime HCl (Maxipime) 1 gm Q8HRS IVP Last administered on 04/09/17 15:00; Start 04/07/17 at 14:00 Sodium Chloride 90 meq/Potassium Chloride 50 meq/ Potassium Phosphate 13.6 mmol/ Magnesium Sulfate 20 meq/ Calcium Gluconate 10 meq/ Multivitamins 10 ml/Chromium / Copper/Manganese/ Seleni/Zn 1 ml/ Total Parenteral Nutrition/Amino Acids/ Dextrose/ Fat Emulsion Intravenous 1,512 ml @ 63 mls/hr TPN CONT IV Last administered on 04/08/17 21:23; Start 04/08/17 at 22:00; Stop 04/09/17 at 21:59 Furosemide (Lasix) 40 mg 1X ONCE IVP Last administered on 04/09/17 10:03; Start 04/09/17 at 08:15; Stop 04/09/17 at 08:16; Status DC Sodium Chloride 90 meq/Potassium Chloride 50 meq/ Potassium Phosphate 13.6 mmol/ Magnesium Sulfate 20 meq/ Calcium Gluconate 10 meq/ Multivitamins 10 ml/Chromium / Copper/Manganese/ Seleni/Zn 1 ml/ Total Parenteral Nutrition/Amino Acids/ Dextrose/ Fat Emulsion Intravenous 1,512 ml @ 63 mls/hr TPN CONT IV ; Start 04/09/17 at 22:00; Stop 04/10/17 at 21:59 Active Scripts Active Reported Flagyl (Metronidazole) 500 Mg Tablet 1 Tab PO BID Cefpodoxime Proxetil 200 Mg Tablet 1 Tab PO BID Ferrous Sulfate 325 Mg Tablet 1 Tab PO DAILY Lasix (Furosemide) 40 Mg Tablet 40 Mg PO QODAY Potassium Chloride 10 Meq Capsule.er 10 Meq PO QODAY Metoprolol Tartrate 25 Mg Tablet 12.5 Mg PO BID Atorvastatin Calcium 40 Mg Tablet 40 Mg PO HS Clopidogrel (Clopidogrel Bisulfate) 75 Mg Tablet 1 Tab PO DAILY Diclofenac Sodium 75 Mg Tablet.dr 75 Mg PO DAILY Ranitidine Hcl 150 Mg Tablet 1 Tab PO BID Aspirin 81 Mg Tab.chew 1 Tab PO DAILY Vitals/I & O Vital Sign - Last 24 Hours 04/08/17 04/08/17 04/08/17 04/08/17 18:30 18:36 19:30 19:50 Temp 99.3 98.9 99.5 99.3 98.9 99.5 Pulse 98 98 100 Resp 45 34 36 B/P (MAP) 113/56 117/56 115/55 (75) Pulse Ox 98 O2 Delivery BiPAP/CPAP BiPAP/CPAP 04/08/17 04/08/17 04/08/17 04/08/17 20:00 20:00 20:40 23:30 Temp 99.5 99.5 Pulse 98 Resp 40 B/P (MAP) 111/55 (73) Pulse Ox 98 98 O2 Delivery Bi-pap BiPAP/CPAP BiPAP/CPAP O2 Flow Rate 5.0 04/08/17 04/09/17 04/09/17 04/09/17 23:34 01:45 01:58 03:00 Pulse 90 Resp 34 Pulse Ox 98 98 98 O2 Delivery BiPAP/CPAP Nasal Cannula BiPAP/CPAP O2 Flow Rate 5.0 04/09/17 04/09/17 04/09/17 04/09/17 04:20 05:45 07:00 07:37 Temp 98.3 98.3 Pulse 87 53 Resp 40 24 B/P (MAP) 108/48 (68) 121/67 (85) Pulse Ox 96 98 97 98 O2 Delivery BiPAP/CPAP BiPAP/CPAP BiPAP/CPAP BiPAP/CPAP 04/09/17 04/09/17 04/09/17 04/09/17 08:00 08:45 09:00 09:00 Temp 99.1 99.7 99.1 99.7 Pulse 88 78 Resp 30 32 B/P (MAP) 100/55 (70) 118/58 (78) Pulse Ox 98 98 O2 Delivery Bi-pap BiPAP/CPAP BiPAP/CPAP O2 Flow Rate 5.0 5.0 5.0 5.0 04/09/17 04/09/17 04/09/17 04/09/17 09:09 10:00 10:04 10:04 Temp 99.1 99.1 Pulse 78 103 Resp 32 34 B/P (MAP) 118/58 (78) 103/43 Pulse Ox 98 98 98 O2 Delivery BiPAP/CPAP BiPAP/CPAP O2 Flow Rate 5.0 5.0 04/09/17 04/09/17 04/09/17 04/09/17 11:00 11:04 11:36 12:00 Temp 97.5 97.5 Pulse 53 73 Resp 28 28 30 B/P (MAP) 101/54 (70) 81/48 (59) Pulse Ox 98 98 98 98 O2 Delivery BiPAP/CPAP BiPAP/CPAP BiPAP/CPAP BiPAP/CPAP O2 Flow Rate 5.0 5.0 5.0 04/09/17 04/09/17 04/09/17 04/09/17 13:00 13:30 14:00 15:00 Pulse 50 52 83 Resp 32 23 36 B/P (MAP) 85/49 (61) 109/48 (68) 106/56 (73) Pulse Ox 98 98 98 98 O2 Delivery BiPAP/CPAP BiPAP/CPAP BiPAP/CPAP BiPAP/CPAP O2 Flow Rate 5.0 5.0 5.0 04/09/17 04/09/17 04/09/17 04/09/17 15:31 16:00 16:00 16:51 Temp 98.0 98.0 Pulse 94 Resp 36 38 B/P (MAP) 110/55 (73) Pulse Ox 98 99 99 O2 Delivery BiPAP/CPAP Bi-pap BiPAP/CPAP BiPAP/CPAP O2 Flow Rate 5.0 5.0 5.0 04/09/17 17:00 Pulse 94 Resp 28 B/P (MAP) 102/52 (69) Pulse Ox 99 O2 Delivery BiPAP/CPAP O2 Flow Rate 5.0 Intake and Output 04/08/17 04/08/17 04/09/17 15:00 23:00 07:00 Intake Total 150 ml 200 ml 1050 ml Output Total 1150 ml 700 ml 500 ml Balance -1000 ml -500 ml 550 ml CICI OSCAR MD Apr 09, 2017 17:32
[2017-04-09] MEDS: IV NORMAL SALINE 1000ML BAG 1,000 ML IV SCH (20:43)
[2017-04-09] MEDS: INSULIN DETEMIR 300 UNITS/3 ML INSULN.PEN. SQ SCH (21:49)
[2017-04-09] MEDS ORDERED: TOTAL PARENTERAL NUTRITION IV SCH ×10 (22:00)
[2017-04-09] MEDS ORDERED: AMINO ACIDS IV SCH ×10 (22:00)
[2017-04-09] MEDS ORDERED: [UNRECOGNIZED DRUG - OTHER] IV SCH ×10 (22:00)
[2017-04-09] MEDS ORDERED: DEXTROSE 70% IV SCH ×10 (22:00)
[2017-04-10] VITALS (24 sets, daily range): BP systolic 79–122; BP diastolic 45–67
[2017-04-10 05:28] LABS: BASO % 0 % (0-3); EOS % 0 % (0-3); HEMATOCRIT 23.8 % (36.0-47.0); HEMOGLOBIN 7.8 g/dL (12.0-15.5); LYMPH # 0.9 x10^3/uL (1.0-4.8); LYMPH % 13 % (24-48); MEAN CORPUSCULAR HEMOGLOBIN 29 pg (25-35); MEAN CORPUSCULAR HGB CONC 33 g/dL (31-37); MEAN CORPUSCULAR VOLUME 87 fL (79-100); MONO % 6 % (0-9); NEUT % 81 % (31-73); PLATELET COUNT 344 x10^3/uL (140-400); RED BLOOD COUNT 2.74 x10^6/uL (3.50-5.40); RED CELL DISTRIBUTION WIDTH 17.5 % (11.5-14.5); WHITE BLOOD COUNT 7.2 x10^3/uL (4.0-11.0)
[2017-04-10 05:55] LABS: ALBUMIN 0.8 g/dL (3.4-5.0); ALBUMIN/GLOBULIN RATIO 0.2 (1.0-1.7); CALCIUM 7.8 mg/dL (8.5-10.1); CREATININE 0.7 mg/dL (0.6-1.0); GFR 82.5; POTASSIUM 3.5 mmol/L (3.5-5.1); TOTAL BILIRUBIN 0.5 mg/dL (0.2-1.0); TOTAL PROTEIN 4.6 g/dL (6.4-8.2)
[2017-04-10] MEDS: CEFEPIME HCL IV Push 1 GM VIAL. IVP SCH ×3 (05:58→21:38)
--- NOTE | 2017-04-10 07:58 | PDOC ---
Infectious Disease Note Subjective Subjective States ok. No nausea/pain denies SOA or CP or generalized aches TPN ROS ROS GEN: Denies fevers, chills, sweats HEENT: Denies blurred vision CV: Denies chest pain GI: Denies n/v/ NEURO: Denies confusion, dizziness MSK: Denies weakness, Vital Sign Vital Signs Vital Signs Date Time Temp Pulse Resp B/P (MAP) Pulse Ox O2 Delivery O2 Flow Rate FiO2 04/10/17 06:00 98.7 93 36 101/50 (67) 98 BiPAP/CPAP 98.7 04/10/17 03:00 4.0 Physical Exam PHYSICAL EXAM GENERAL: Propped up in bed, with apparent increased work of breathing still HEENT: PERRL, on BiPAP LUNGS: Less crackles CV: S1 and S2 ABD: BS active, soft, NT light palpation. Ostomy + output, distal incision dehiscence, + drainage. 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 clean Labs Lab Laboratory Tests Test 04/09/17 08:55 04/09/17 21:41 04/10/17 05:20 O2 Saturation 94 % (92-99) Arterial Blood pH 7.47 (7.35-7.45) Arterial Blood pCO2 at Patient Temp 34 mmHg (35-46) Arterial Blood pO2 at Patient Temp 75 mmHg (65-108) Arterial Blood HCO3 25 mmol/L (21-28) Arterial Blood Base Excess 1 mmol/L (-3-3) FiO2 35 Glucose (Fingerstick) 191 mg/dL (70-99) White Blood Count 7.2 x10^3/uL (4.0-11.0) Red Blood Count 2.74 x10^6/uL (3.50-5.40) Hemoglobin 7.8 g/dL (12.0-15.5) Hematocrit 23.8 % (36.0-47.0) Mean Corpuscular Volume 87 fL (79-100) Mean Corpuscular Hemoglobin 29 pg (25-35) Mean Corpuscular Hemoglobin Concent 33 g/dL (31-37) Red Cell Distribution Width 17.5 % (11.5-14.5) Platelet Count 344 x10^3/uL (140-400) Neutrophils (%) (Auto) 81 % (31-73) Lymphocytes (%) (Auto) 13 % (24-48) Monocytes (%) (Auto) 6 % (0-9) Eosinophils (%) (Auto) 0 % (0-3) Basophils (%) (Auto) 0 % (0-3) Neutrophils # (Auto) 5.8 x10^3uL (1.8-7.7) Lymphocytes # (Auto) 0.9 x10^3/uL (1.0-4.8) Monocytes # (Auto) 0.4 x10^3/uL (0.0-1.1) Eosinophils # (Auto) 0.0 x10^3/uL (0.0-0.7) Basophils # (Auto) 0.0 x10^3/uL (0.0-0.2) Sodium Level 138 mmol/L (136-145) Potassium Level 3.5 mmol/L (3.5-5.1) Chloride Level 102 mmol/L (98-107) Carbon Dioxide Level 30 mmol/L (21-32) Anion Gap 6 (6-14) Blood Urea Nitrogen 21 mg/dL (7-20) Creatinine 0.7 mg/dL (0.6-1.0) Estimated GFR (Cockcroft-Gault) 82.5 BUN/Creatinine Ratio 30 (6-20) Glucose Level 178 mg/dL (70-99) Calcium Level 7.8 mg/dL (8.5-10.1) Total Bilirubin 0.5 mg/dL (0.2-1.0) Aspartate Amino Transf (AST/SGOT) 15 U/L (15-37) Alanine Aminotransferase (ALT/SGPT) 11 U/L (14-59) Alkaline Phosphatase 85 U/L (46-116) Total Protein 4.6 g/dL (6.4-8.2) Albumin 0.8 g/dL (3.4-5.0) Albumin/Globulin Ratio 0.2 (1.0-1.7) Micro Klebsiella pneumoniae Moderate growth AEROBIC RES 2 Final Yeast Moderate growth Request for further identification must be made within 1 week. AEROBIC RES 3 Final Comment Vancomycin-resistant Enterococcus (Enterococcus faecium) Heavy growth AEROBIC RES 4 Final Comment Pseudomonas aeruginosa Moderate growth CONTINUED ON NEXT PAGE RUN DATE: 03/20/17 PAGE 2 RUN TIME: 823 [facility] [address] [facility] [place] [address] M[address]D., Rn Icu SPEC: [id number] PATIENT: SAFIA MIRANDA [id number] ( Continued) Procedure Result ANTIMICROBIAL SUSCEPTIBILITY Final Comment S = Susceptible; I = Intermediate; R = Resistant P = Positive; N = Negative MICS are expressed in micrograms per mL Antibiotic RSLT#1 RSLT#2 RSLT#3 RSLT#4 Amikacin S Amoxicillin/Clavulanic Acid S Ampicillin R Cefepime S S Ceftazidime S Ceftriaxone S Cefuroxime I Ciprofloxacin S S Ertapenem S Gentamicin S S Imipenem S S Levofloxacin S S Linezolid S Meropenem S Penicillin R Piperacillin R S Quinupristin/Dalfopristin S Tetracycline S Ticarcillin R Tobramycin S S Trimethoprim/Sulfa S Vancomycin R Performed at: [address] [id number] Ward Maid: Ashia Rogers MD, Phone: [phone] SUSCEPTIBILITY TESTING AEROBIC Final Final report SUSCEPTIBILITY TESTING AEROBIC Final Letitia tropicalis Letitia tropicalis susceptibility results: 5-Flucytosine 0.12 mcg/mL Sensitive Itraconazole 1 mcg/mL Resistant Fluconazole 1 mcg/mL Sensitive Voriconazole 0.12 mcg/mL Sensitive Performed at: [place] [address] [address] [place], [place] [id number] Ward Maid: Ashia Rogers MD, Phone: [phone] Objective Assessment Pabyu-cy-dtungta respiratory failure, now on BiPAP but appears comfortable but still Rapid rate - ? Resp condition vs anxiety - pleural effusions -stable and small/ LE U/S 04/08 neg. ECHO 03/22 EF 40 - 45 % Fever, UA neg - some better Acute Anemia - s/p PRBCs one unit 04/08 s/p lap converted to open exploration, JAIRO, removal of infected mesh, subtotal colectomy, SBR and hernia repair, 03/24. 10.0 x 5.5 x 18.0 cm fluid collection with air-fluid levels in the right lower quadrant. s/p drain placement, 04/06. GS: PSAE/Enterococcus Wound dehiscence Nasal bridge from BiPAP and abd wound looks worse as has increased in size (pictures 04/08) Leukocytosis - improved Thrombocytopenia, resolved EC fistula Abdominal abscess, measuring 6.4 x 4.9 cm. s/p drain 03/12. Klebsiella ( R to Zosyn, S Cipro/Levo), VRE (R PCN) and PSAE ( R to ticarcillin only otherwise sensitive, S Cipro/Levo) and C tropicalis -h/o Strep anginosis and Bacteroides Ventral hernia DM HTN PCN allergy/amox also - hives and swelling Plan Plan of Care TSH/CK this am Repeat ECHO F/u sensitivities from 04/[address] chest but await pulm eval Cont Micafungin, Flagyl and Cefepime 04/07/ Dapto f/u cultures and monitor WBC, temp Supportive care D/w nursing D/w son Guarded prognosis overall given resp failure/deconditioning and worsening wounds TERRA BEACH MD Apr 10, 2017 07:58
[2017-04-10] MEDS: ASPIRIN CHEWABLE 81 MG TABLET. PO SCH (08:01)
[2017-04-10] MEDS: FERROUS SULFATE 325 MG TABLET. PO SCH (08:01)
[2017-04-10] MEDS: LORazepam 0.5 MG TABLET PO SCH ×2 (08:02→21:37)
[2017-04-10] MEDS: FUROSEMIDE 40 MG/4 ML VIAL. IVP SCH (08:02)
[2017-04-10] MEDS: METOPROLOL SUCC 24HR ER 25 MG TAB.ER.24H. PO SCH (08:02)
[2017-04-10] MEDS: PANTOPRAZOLE IV PUSH 40 MG VIAL. IVP SCH (08:03)
[2017-04-10] MEDS: HYDROcodone/APAP 7.5/325MG 1 TAB TABLET PO PRN ×3 (08:12→21:37)
--- NOTE | 2017-04-10 09:04 | PDOC ---
SUBJECTIVE Subjective Feels better this AM than yesterday. Off bipap at the moment. RR ranging from 16 - 40. Notes moderate pain of the abdomen. Again discussed code status and goals of care. No changes at this time. Pt and son will discuss. OBJECTIVE Objective Reviewed. Vital Signs Vital Signs Date Time Temp Pulse Resp B/P (MAP) Pulse Ox O2 Delivery O2 Flow Rate FiO2 04/10/17 08:12 97 BiPAP/CPAP 4.0 04/10/17 08:05 55 25 101/52 (68) 97 BiPAP/CPAP 4.0 04/10/17 08:02 93 101/50 04/10/17 07:50 Bi-pap 4.0 04/10/17 07:50 4.0 04/10/17 07:29 97 BiPAP/CPAP 04/10/17 07:25 99.6 68 98/54 (69) 96 BiPAP/CPAP 4.0 99.6 04/10/17 06:00 98.7 93 36 101/50 (67) 98 BiPAP/CPAP 98.7 04/10/17 05:00 99.0 94 40 97/53 (68) 99 BiPAP/CPAP 99.0 04/10/17 04:45 99 BiPAP/CPAP 04/10/17 04:00 Bi-pap 04/10/17 04:00 98.6 92 40 99/52 (68) 98 BiPAP/CPAP 98.6 04/10/17 03:08 99 BiPAP/CPAP 04/10/17 03:00 99.0 93 27 93/50 (64) 98 BiPAP/CPAP 4.0 99.0 04/10/17 02:00 99.6 99 38 92/49 (63) 98 BiPAP/CPAP 4.0 99.6 04/10/17 01:10 99 BiPAP/CPAP 04/10/17 01:00 99.4 98 40 95/51 (66) 99 BiPAP/CPAP 4.0 99.4 04/10/17 00:00 Bi-pap 04/10/17 00:00 99.4 98 40 114/50 (71) 99 BiPAP/CPAP 4.0 99.4 04/09/17 23:43 99 BiPAP/CPAP 04/09/17 23:00 99.1 101 39 107/53 (71) 97 BiPAP/CPAP 4.0 99.1 04/09/17 22:05 99 BiPAP/CPAP 04/09/17 22:00 97.8 92 42 86/50 (62) 98 BiPAP/CPAP 4.0 97.8 04/09/17 21:00 97.8 88 37 87/46 (60) 99 BiPAP/CPAP 4.0 97.8 04/09/17 20:00 Bi-pap 04/09/17 20:00 5.0 04/09/17 20:00 98.8 90 32 100/48 (65) 98 BiPAP/CPAP 4.0 98.8 04/09/17 19:59 98 BiPAP/CPAP 04/09/17 19:00 66 30 86/54 (65) 97 BiPAP/CPAP 04/09/17 18:00 53 32 107/61 (76) 97 Nasal Cannula 4.0 04/09/17 17:51 24 97 Nasal Cannula 4.0 04/09/17 17:00 94 28 102/52 (69) 99 BiPAP/CPAP 5.0 04/09/17 16:51 38 99 BiPAP/CPAP 5.0 04/09/17 16:00 98.0 94 36 110/55 (73) 99 BiPAP/CPAP 5.0 98.0 04/09/17 16:00 Bi-pap 5.0 04/09/17 15:31 98 BiPAP/CPAP 04/09/17 15:00 83 36 106/56 (73) 98 BiPAP/CPAP 5.0 04/09/17 14:00 52 23 109/48 (68) 98 BiPAP/CPAP 5.0 04/09/17 13:30 98 BiPAP/CPAP 04/09/17 13:00 50 32 85/49 (61) 98 BiPAP/CPAP 5.0 04/09/17 12:00 97.5 73 30 81/48 (59) 98 BiPAP/CPAP 5.0 97.5 04/09/17 11:36 98 BiPAP/CPAP 04/09/17 11:00 53 28 101/54 (70) 98 BiPAP/CPAP 5.0 04/09/17 10:04 103 103/43 04/09/17 10:04 34 98 BiPAP/CPAP 5.0 04/09/17 10:00 99.1 78 32 118/58 (78) 98 5.0 99.1 04/09/17 09:09 98 BiPAP/CPAP I & O Intake and Output 04/10/17 07:00 Intake Total 1842 ml Output Total 3840 ml Balance -1998 ml Intake Oral 170 ml IV Total 1672 ml Tube Feeding 0 ml Output Urine Total 3330 ml Stool Total 85 ml Urine/Stool Mix 175 ml Drainage Total 250 ml PHYSICAL EXAM Physical Exam Alert, oriented Nasal wound covered with bandage Increased work of breathing, crackles in bases Abd wounds covered with dressing, dehiscence, ostomy with output 2+ pitting edema bilateral lower extremities ASSESSMENT/PLAN Assessment/Plan [id number] respiratory failure on BIPAP Status post laparoscopic converted to open exploration for extensive lysis of adhesion, removal of old mesh, subtotal colectomy, small bowel resection and incisional hernia repair.Now with brown drainage from wound. entero-cutaneous fistula/ abscess Obesity Enterocutaneous fistula. Abdominal abscess. Ventral hernia, status post repair. Anemia Swelling LE - doppler negative for DVT Multiple wounds (nasal bridge from bipap, dehiscence of abdominal wound, etc.) Discussed goals of care with patient and son. No changes at this time. Palliative care consulted. Pt states that she "doesn't want to live on a machine ". Echo, cortisol and TSH today. Problems: COMMENT Lab Laboratory Tests Test 04/09/17 21:41 04/10/17 05:20 04/10/17 07:22 Glucose (Fingerstick) 191 mg/dL (70-99) 175 mg/dL (70-99) White Blood Count 7.2 x10^3/uL (4.0-11.0) Red Blood Count 2.74 x10^6/uL (3.50-5.40) Hemoglobin 7.8 g/dL (12.0-15.5) Hematocrit 23.8 % (36.0-47.0) Mean Corpuscular Volume 87 fL (79-100) Mean Corpuscular Hemoglobin 29 pg (25-35) Mean Corpuscular Hemoglobin Concent 33 g/dL (31-37) Red Cell Distribution Width 17.5 % (11.5-14.5) Platelet Count 344 x10^3/uL (140-400) Neutrophils (%) (Auto) 81 % (31-73) Lymphocytes (%) (Auto) 13 % (24-48) Monocytes (%) (Auto) 6 % (0-9) Eosinophils (%) (Auto) 0 % (0-3) Basophils (%) (Auto) 0 % (0-3) Neutrophils # (Auto) 5.8 x10^3uL (1.8-7.7) Lymphocytes # (Auto) 0.9 x10^3/uL (1.0-4.8) Monocytes # (Auto) 0.4 x10^3/uL (0.0-1.1) Eosinophils # (Auto) 0.0 x10^3/uL (0.0-0.7) Basophils # (Auto) 0.0 x10^3/uL (0.0-0.2) Sodium Level 138 mmol/L (136-145) Potassium Level 3.5 mmol/L (3.5-5.1) Chloride Level 102 mmol/L (98-107) Carbon Dioxide Level 30 mmol/L (21-32) Anion Gap 6 (6-14) Blood Urea Nitrogen 21 mg/dL (7-20) Creatinine 0.7 mg/dL (0.6-1.0) Estimated GFR (Cockcroft-Gault) 82.5 BUN/Creatinine Ratio 30 (6-20) Glucose Level 178 mg/dL (70-99) Calcium Level 7.8 mg/dL (8.5-10.1) Total Bilirubin 0.5 mg/dL (0.2-1.0) Aspartate Amino Transf (AST/SGOT) 15 U/L (15-37) Alanine Aminotransferase (ALT/SGPT) 11 U/L (14-59) Alkaline Phosphatase 85 U/L (46-116) Creatine Kinase 55 U/L (26-192) Total Protein 4.6 g/dL (6.4-8.2) Albumin 0.8 g/dL (3.4-5.0) Albumin/Globulin Ratio 0.2 (1.0-1.7) Thyroid Stimulating Hormone (TSH) 6.522 uIU/mL (0.358-3.74) STEPHON BLAND MD Apr 10, 2017 09:04
--- NOTE | 2017-04-10 09:11 | PDOC ---
PROGRESS NOTES Subjective Subjective HPI - f/u of Thrombocytopenia. Improved./Anemia. Objective Objective Vital Signs Date Time Temp Pulse Resp B/P (MAP) Pulse Ox O2 Delivery O2 Flow Rate FiO2 04/10/17 08:12 97 BiPAP/CPAP 4.0 04/10/17 08:05 55 25 101/52 (68) 04/10/17 07:25 99.6 99.6 Intake and Output 04/10/17 07:00 Intake Total 1842 ml Output Total 3840 ml Balance -1998 ml Intake Oral 170 ml IV Total 1672 ml Tube Feeding 0 ml Output Urine Total 3330 ml Stool Total 85 ml Urine/Stool Mix 175 ml Drainage Total 250 ml Physical Exam General: Alert, mild distress Assessment Assessment Problems Medical Problems: (1) Abdominal abscess Status: Acute (2) Abdominal pain Status: Acute A/P: 1. Thrombocytopenia. Improved. Plt count 344. 2. Anemia. Most likely multifactorial. Iron studies are suggestive of anemia of chronic disease. /B12 normal. Hb 7.8 monitor and transfuse as needed. 3. Abscess. Management as per primary/surgery 4. Status post laparoscopic converted to open exploration for extensive lysis of adhesion, removal of old mesh, subtotal colectomy, small bowel resection and incisional hernia repair. 5. [id number] respiratory failure. Persistent dyspnea/ now off BIPAP - appreciate pulm f/u. Comment Review of Relevant I have reviewed the following items chito (where applicable) has been applied. Labs Laboratory Tests Test 04/08/17 11:42 04/08/17 17:11 04/08/17 20:44 04/09/17 06:00 Glucose (Fingerstick) 216 mg/dL (70-99) 148 mg/dL (70-99) 164 mg/dL (70-99) White Blood Count 7.8 x10^3/uL (4.0-11.0) Red Blood Count 2.69 x10^6/uL (3.50-5.40) Hemoglobin 7.7 g/dL (12.0-15.5) Hematocrit 23.2 % (36.0-47.0) Mean Corpuscular Volume 86 fL (79-100) Mean Corpuscular Hemoglobin 29 pg (25-35) Mean Corpuscular Hemoglobin Concent 33 g/dL (31-37) Red Cell Distribution Width 17.6 % (11.5-14.5) Platelet Count 341 x10^3/uL (140-400) Sodium Level 138 mmol/L (136-145) Potassium Level 3.6 mmol/L (3.5-5.1) Chloride Level 104 mmol/L (98-107) Carbon Dioxide Level 29 mmol/L (21-32) Anion Gap 5 (6-14) Blood Urea Nitrogen 20 mg/dL (7-20) Creatinine 0.7 mg/dL (0.6-1.0) Estimated GFR (Cockcroft-Gault) 82.5 BUN/Creatinine Ratio 29 (6-20) Glucose Level 134 mg/dL (70-99) Calcium Level 8.0 mg/dL (8.5-10.1) Phosphorus Level 4.1 mg/dL (2.6-4.7) Magnesium Level 2.3 mg/dL (1.8-2.4) Total Bilirubin 0.4 mg/dL (0.2-1.0) Aspartate Amino Transf (AST/SGOT) 32 U/L (15-37) Alanine Aminotransferase (ALT/SGPT) 12 U/L (14-59) Alkaline Phosphatase 105 U/L (46-116) Total Protein 4.6 g/dL (6.4-8.2) Albumin 0.8 g/dL (3.4-5.0) Albumin/Globulin Ratio 0.2 (1.0-1.7) Test 04/09/17 08:55 04/09/17 21:41 04/10/17 05:20 04/10/17 07:22 O2 Saturation 94 % (92-99) Arterial Blood pH 7.47 (7.35-7.45) Arterial Blood pCO2 at Patient Temp 34 mmHg (35-46) Arterial Blood pO2 at Patient Temp 75 mmHg (65-108) Arterial Blood HCO3 25 mmol/L (21-28) Arterial Blood Base Excess 1 mmol/L (-3-3) FiO2 35 Glucose (Fingerstick) 191 mg/dL (70-99) 175 mg/dL (70-99) White Blood Count 7.2 x10^3/uL (4.0-11.0) Red Blood Count 2.74 x10^6/uL (3.50-5.40) Hemoglobin 7.8 g/dL (12.0-15.5) Hematocrit 23.8 % (36.0-47.0) Mean Corpuscular Volume 87 fL (79-100) Mean Corpuscular Hemoglobin 29 pg (25-35) Mean Corpuscular Hemoglobin Concent 33 g/dL (31-37) Red Cell Distribution Width 17.5 % (11.5-14.5) Platelet Count 344 x10^3/uL (140-400) Neutrophils (%) (Auto) 81 % (31-73) Lymphocytes (%) (Auto) 13 % (24-48) Monocytes (%) (Auto) 6 % (0-9) Eosinophils (%) (Auto) 0 % (0-3) Basophils (%) (Auto) 0 % (0-3) Neutrophils # (Auto) 5.8 x10^3uL (1.8-7.7) Lymphocytes # (Auto) 0.9 x10^3/uL (1.0-4.8) Monocytes # (Auto) 0.4 x10^3/uL (0.0-1.1) Eosinophils # (Auto) 0.0 x10^3/uL (0.0-0.7) Basophils # (Auto) 0.0 x10^3/uL (0.0-0.2) Sodium Level 138 mmol/L (136-145) Potassium Level 3.5 mmol/L (3.5-5.1) Chloride Level 102 mmol/L (98-107) Carbon Dioxide Level 30 mmol/L (21-32) Anion Gap 6 (6-14) Blood Urea Nitrogen 21 mg/dL (7-20) Creatinine 0.7 mg/dL (0.6-1.0) Estimated GFR (Cockcroft-Gault) 82.5 BUN/Creatinine Ratio 30 (6-20) Glucose Level 178 mg/dL (70-99) Calcium Level 7.8 mg/dL (8.5-10.1) Total Bilirubin 0.5 mg/dL (0.2-1.0) Aspartate Amino Transf (AST/SGOT) 15 U/L (15-37) Alanine Aminotransferase (ALT/SGPT) 11 U/L (14-59) Alkaline Phosphatase 85 U/L (46-116) Creatine Kinase 55 U/L (26-192) Total Protein 4.6 g/dL (6.4-8.2) Albumin 0.8 g/dL (3.4-5.0) Albumin/Globulin Ratio 0.2 (1.0-1.7) Thyroid Stimulating Hormone (TSH) 6.522 uIU/mL (0.358-3.74) Laboratory Tests Test 04/09/17 21:41 04/10/17 05:20 04/10/17 07:22 Glucose (Fingerstick) 191 mg/dL (70-99) 175 mg/dL (70-99) White Blood Count 7.2 x10^3/uL (4.0-11.0) Red Blood Count 2.74 x10^6/uL (3.50-5.40) Hemoglobin 7.8 g/dL (12.0-15.5) Hematocrit 23.8 % (36.0-47.0) Mean Corpuscular Volume 87 fL (79-100) Mean Corpuscular Hemoglobin 29 pg (25-35) Mean Corpuscular Hemoglobin Concent 33 g/dL (31-37) Red Cell Distribution Width 17.5 % (11.5-14.5) Platelet Count 344 x10^3/uL (140-400) Neutrophils (%) (Auto) 81 % (31-73) Lymphocytes (%) (Auto) 13 % (24-48) Monocytes (%) (Auto) 6 % (0-9) Eosinophils (%) (Auto) 0 % (0-3) Basophils (%) (Auto) 0 % (0-3) Neutrophils # (Auto) 5.8 x10^3uL (1.8-7.7) Lymphocytes # (Auto) 0.9 x10^3/uL (1.0-4.8) Monocytes # (Auto) 0.4 x10^3/uL (0.0-1.1) Eosinophils # (Auto) 0.0 x10^3/uL (0.0-0.7) Basophils # (Auto) 0.0 x10^3/uL (0.0-0.2) Sodium Level 138 mmol/L (136-145) Potassium Level 3.5 mmol/L (3.5-5.1) Chloride Level 102 mmol/L (98-107) Carbon Dioxide Level 30 mmol/L (21-32) Anion Gap 6 (6-14) Blood Urea Nitrogen 21 mg/dL (7-20) Creatinine 0.7 mg/dL (0.6-1.0) Estimated GFR (Cockcroft-Gault) 82.5 BUN/Creatinine Ratio 30 (6-20) Glucose Level 178 mg/dL (70-99) Calcium Level 7.8 mg/dL (8.5-10.1) Total Bilirubin 0.5 mg/dL (0.2-1.0) Aspartate Amino Transf (AST/SGOT) 15 U/L (15-37) Alanine Aminotransferase (ALT/SGPT) 11 U/L (14-59) Alkaline Phosphatase 85 U/L (46-116) Creatine Kinase 55 U/L (26-192) Total Protein 4.6 g/dL (6.4-8.2) Albumin 0.8 g/dL (3.4-5.0) Albumin/Globulin Ratio 0.2 (1.0-1.7) Thyroid Stimulating Hormone (TSH) 6.522 uIU/mL (0.358-3.74) Microbiology 04/07/17 Blood Culture - Preliminary, Resulted NO GROWTH AFTER 2 DAYS 04/06/17 Anaerobic/Aerobic Culture, Resulted Pending 04/06/17 Anaerobic Culture Result 1 (KULDEEP), Resulted Pending 04/06/17 Aerobic Culture - Preliminary, Resulted 04/06/17 Aerobic Culture Result 1 (KULDEEP) - Preliminary, Resulted 04/06/17 Aerobic Culture Result 2 (KULDEEP) - Preliminary, Resulted 04/06/17 Aerobic Culture Result 3 (KULDEEP) - Preliminary, Resulted 03/09/17 Urine Culture - Final, Complete 03/09/17 Urine Culture Result 1 (KULDEEP) - Final, Complete 03/12/17 Fungal Culture - Final, Complete 03/12/17 Fungal Culture Result 1 - Final, Complete Medications Current Medications Ondansetron HCl (Zofran) 4 mg 1X ONCE IV Last administered on 03/09/17 08:30 ; Start 03/09/17 at 08:15; Stop 03/09/17 at 08:16; Status DC Iohexol (Omnipaque 300 Mg/ml) 75 ml 1X ONCE IV Last administered on 03/09/17 08:50; Start 03/09/17 at 08:45; Stop 03/09/17 at 08:46; Status DC Info (Do NOT chart on this entry -- for MONITORING) 1 each PRN DAILY PRN MC SEE COMMENTS; Start 03/09/17 at 08:45; Stop 03/11/17 at 08:44; Status DC Ceftriaxone Sodium 50 ml @ 100 mls/hr 1X ONCE IV ; Start 03/09/17 at 09:30; Stop 03/09/17 at 09:55; Status DC Sodium Chloride 1,000 ml @ 1,000 mls/hr 1X ONCE IV Last administered on 09:55; Start 03/09/17 at 10:00; Stop 03/09/17 at 10:59; Status DC Ondansetron HCl (Zofran) 4 mg PRN Q8HRS PRN IV NAUSEA/VOMITING; Start 03/09/17 at 10:30; Stop 03/10/17 at 10:29; Status DC Meropenem 500 mg/ Sodium Chloride 50 ml @ 100 mls/hr Q8HRS IV Last administered on 03/16/17 06:09; Start 03/09/17 at 13:00; Stop 03/16/17 at 12: 59; Status DC Acetaminophen (Tylenol) 650 mg PRN QID PRN PO MILD PAIN / TEMP Last administered on 03/30/17 17:43; Start 03/09/17 at 20:30 Aspirin (Children'S Aspirin) 81 mg DAILY PO Last administered on 04/10/17 08: 01; Start 03/10/17 at 15:00 Clopidogrel Bisulfate (Plavix) 75 mg DAILY PO Last administered on 03/19/17 10:00; Start 03/10/17 at 15:00; Stop 03/22/17 at 09:10; Status DC Ferrous Sulfate (Feosol) 325 mg DAILY PO Last administered on 04/10/17 08:01; Start 03/10/17 at 15:00 Metoprolol Tartrate (Lopressor) 12.5 mg BID PO Last administered on 03/10/17 16:01; Start 03/10/17 at 15:00; Stop 03/10/17 at 21:01; Status DC Diclofenac Sodium (Voltaren) 75 mg DAILY PO Last administered on 03/23/17 09: 23; Start 03/10/17 at 14:30; Stop 03/29/17 at 10:50; Status DC Famotidine (Pepcid) 20 mg QHS PO Last administered on 03/24/17 21:20; Start 03/10/17 at 21:00; Stop 03/26/17 at 09:35; Status DC Glimepiride (Amaryl) 1 mg DAILY PO Last administered on 03/13/17 09:25; Start 03/11/17 at 15:00; Stop 03/13/17 at 17:02; Status DC Sodium Chloride 1,000 ml @ 100 mls/hr 1X ONCE IV Last administered on 21:00; Start 03/10/17 at 21:00; Stop 03/11/17 at 06:59; Status DC Lidocaine/Sodium Bicarbonate (Buffered Lidocaine 1%) 20 ml STK-MED ONCE IJ ; Start 03/12/17 at 13:05; Stop 03/12/17 at 13:06; Status DC Fentanyl Citrate (Fentanyl 2ml Vial) 100 mcg STK-MED ONCE .ROUTE ; Start at 13:20; Stop 03/12/17 at 13:21; Status DC Midazolam HCl (Versed) 2 mg STK-MED ONCE .ROUTE ; Start 03/12/17 at 13:20; Stop 03/12/17 at 13:21; Status DC Flumazenil (Romazicon) 0.5 mg STK-MED ONCE IV ; Start 03/12/17 at 13:20; Stop 03/12/17 at 13:21; Status DC Naloxone HCl (Narcan) 0.4 mg STK-MED ONCE .ROUTE ; Start 03/12/17 at 13:20; Stop 03/12/17 at 13:21; Status DC Lidocaine/Sodium Bicarbonate (Buffered Lidocaine 1%) 20 ml 1X ONCE IJ Last administered on 03/12/17 13:50; Start 03/12/17 at 13:30; Stop 03/12/17 at 13:33 ; Status DC Midazolam HCl (Versed) 2 mg 1X ONCE IV Last administered on 03/12/17 13:50; Start 03/12/17 at 13:30; Stop 03/12/17 at 13:33; Status DC Fentanyl Citrate (Fentanyl 2ml Vial) 100 mcg 1X ONCE IV Last administered on 03/12/17 13:50; Start 03/12/17 at 13:30; Stop 03/12/17 at 13:33; Status DC Lactobacillus Rhamnosus (Culturelle) 1 cap BID PO Last administered on 21:20; Start 03/12/17 at 21:00; Stop 03/25/17 at 21:06; Status DC Acetaminophen/ Hydrocodone Bitart (Lortab 7.5/325) 1 tab PRN Q6HRS PRN PO MODERATE - SEVERE PAIN Last administered on 04/10/17 08:12; Start 03/12/17 at 18:15 Ondansetron HCl (Zofran) 4 mg PRN Q6HRS PRN IV NAUSEA/VOMITING, 1ST CHOICE Last administered on 03/25/17 04:53; Start 03/13/17 at 09:00 Furosemide (Lasix) 40 mg QODAY PO Last administered on 03/22/17 09:39; Start 03/14/17 at 09:00; Stop 03/26/17 at 09:00; Status DC Glimepiride (Amaryl) 1 mg DAILY08 PO Last administered on 03/22/17 09:40; Start 03/14/17 at 08:00; Stop 03/23/17 at 08:52; Status DC Linezolid (Zyvox) 600 mg BID PO Last administered on 03/24/17 21:20; Start 03/14/17 at 13:15; Stop 03/25/17 at 10:49; Status DC Meropenem (Merrem) 500 mg Q8HRS IVP Last administered on 03/30/17 06:04; Start 03/16/17 at 14:00; Stop 03/30/17 at 07:49; Status DC Iohexol (Omnipaque 240 Mg/ml) 50 ml STK-MED ONCE .ROUTE ; Start 03/19/17 at 13: 11; Stop 03/19/17 at 13:12; Status DC Iohexol (Omnipaque 240 Mg/ml) 10 ml 1X ONCE IJ Last administered on 14:07; Start 03/19/17 at 14:00; Stop 03/19/17 at 14:01; Status DC Info (Do NOT chart on this entry -- for MONITORING) 1 each PRN DAILY PRN MC SEE COMMENTS; Start 03/19/17 at 14:00; Stop 03/21/17 at 13:59; Status DC Iohexol (Omnipaque 240 Mg/ml) 50 ml STK-MED ONCE .ROUTE ; Start 03/19/17 at 13: 55; Stop 03/19/17 at 13:56; Status DC Fluconazole (Diflucan) 200 mg DAILY PO Last administered on 03/23/17 09:24; Start 03/22/17 at 09:30; Stop 03/25/17 at 10:51; Status DC Metoprolol Succinate (Toprol Xl) 12.5 mg DAILY PO Last administered on 08:02; Start 03/23/17 at 09:00 Glimepiride (Amaryl) 0.5 mg DAILY08 PO ; Start 03/24/17 at 08:00; Stop at 13:05; Status DC Morphine Sulfate 1 mg PRN Q10MIN PRN IV SEVERE PAIN; Start 03/26/17 at 07:00; Stop 03/26/17 at 07:00; Status DC Ringer's Solution 1,000 ml @ 30 mls/hr Q24H IV ; Start 03/26/17 at 07:00; Stop 03/26/17 at 07:00; Status DC Lidocaine HCl (Xylocaine-Mpf 1% Vial) 2 ml PRN 1X PRN ID PRIOR TO IV START; Start 03/26/17 at 07:00; Stop 03/26/17 at 07:00; Status DC Hydromorphone HCl (Dilaudid) 0.5 mg PRN Q10MIN PRN IV SEV PAIN, Second choice; Start 03/26/17 at 07:00; Stop 03/27/17 at 06:59; Status Cancel Prochlorperazine Edisylate (Compazine) 5 mg PACU PRN PRN IV NAUSEA, MRX1 Last administered on 03/25/17 07:45; Start 03/26/17 at 07:00; Stop 03/26/17 at 07 :00; Status DC Morphine Sulfate 1 mg PRN Q10MIN PRN IV SEVERE PAIN; Start 03/24/17 at 07:45; Stop 03/25/17 at 07:44; Status DC Ringer's Solution 1,000 ml @ 30 mls/hr Q24H IV Last administered on 11/18/ 17at 14:15; Start 03/24/17 at 07:32; Stop 03/24/17 at 19:31; Status DC Lidocaine HCl (Xylocaine-Mpf 1% Vial) 2 ml 1X PRN PRN ID IV START; Start 03/24 at 07:45; Stop 03/25/17 at 07:44; Status DC Hydromorphone HCl (Dilaudid) 0.5 mg PRN Q10MIN PRN IV SEV PAIN, Second choice; Start 03/24/17 at 07:45; Stop 03/25/17 at 07:44; Status DC Prochlorperazine Edisylate (Compazine) 5 mg PACU PRN PRN IV NAUSEA, MRX1; Start 03/24/17 at 07:45; Stop 03/25/17 at 07:44; Status DC Bupivacaine HCl/ Epinephrine Bitart (Sensorcain-Mpf Epi 0.5%-[id number]) 30 ml STK -MED ONCE .ROUTE Last administered on 03/24/17t 15:56; Start 03/24/17 at 10: 28; Stop 03/24/17 at 10:29; Status DC Neostigmine Methylsulfate (Bloxiverz) 10 mg STK-MED ONCE .ROUTE ; Start at 14:38; Stop 03/24/17 at 14:39; Status DC Rocuronium Raton (Zemuron) 50 mg STK-MED ONCE .ROUTE ; Start 03/24/17 at 14: 38; Stop 03/24/17 at 14:39; Status DC Fentanyl Citrate (Fentanyl 2ml Vial) 100 mcg STK-MED ONCE .ROUTE ; Start at 14:38; Stop 03/24/17 at 14:39; Status DC Phenylephrine HCl 1 mg STK-MED ONCE IV ; Start 03/24/17 at 14:40; Stop at 14:41; Status DC Lidocaine HCl (Lidocaine Pf 2% Vial) 5 ml STK-MED ONCE .ROUTE ; Start 03/24/17 at 14:40; Stop 03/24/17 at 14:41; Status DC Dexamethasone Sodium Phosphate (Decadron) 20 mg STK-MED ONCE .ROUTE ; Start at 14:40; Stop 03/24/17 at 14:41; Status DC Ondansetron HCl (Zofran) 4 mg STK-MED ONCE .ROUTE ; Start 03/24/17 at 14:40; Stop 03/24/17 at 14:41; Status DC Propofol 20 ml @ As Directed STK-MED ONCE IV ; Start 03/24/17 at 14:40; Stop 03/24/17 at 14:41; Status DC Glycopyrrolate (Robinul) 1 mg STK-MED ONCE .ROUTE ; Start 03/24/17 at 15:11; Stop 03/24/17 at 15:12; Status DC Rocuronium Raton (Zemuron) 50 mg STK-MED ONCE .ROUTE ; Start 03/24/17 at 15: 53; Stop 03/24/17 at 15:54; Status DC Fentanyl Citrate (Fentanyl 2ml Vial) 100 mcg STK-MED ONCE .ROUTE ; Start at 16:01; Stop 03/24/17 at 16:02; Status DC Morphine Sulfate 10 mg STK-MED ONCE .ROUTE ; Start 03/24/17 at 16:02; Stop at 16:03; Status DC Albumin Human 500 ml @ As Directed STK-MED ONCE IV ; Start 03/24/17 at 17:03; Stop 03/24/17 at 17:04; Status DC Phenylephrine HCl (Corky-Synephrine Inj) 10 mg STK-MED ONCE .ROUTE ; Start at 17:27; Stop 03/24/17 at 17:28; Status DC Rocuronium Raton (Zemuron) 100 mg STK-MED ONCE .ROUTE ; Start 03/24/17 at 17: 57; Stop 03/24/17 at 17:58; Status DC Enoxaparin Sodium (Lovenox 40mg Syringe) 40 mg Q24H SQ Last administered on t 20:51; Start 03/24/17 at 20:45; Stop 03/26/17 at 19:34; Status DC Sodium Chloride (Normal Saline Flush) 3 ml QSHIFT PRN IV AFTER MEDS AND BLOOD DRAWS; Start 03/24/17 at 20:45 Ringer's Solution 1,000 ml @ 100 mls/hr Q10H IV Last administered on t 12:32; Start 03/24/17 at 20:43; Stop 03/25/17 at 16:52; Status DC Naloxone HCl (Narcan) 0.4 mg PRN Q2MIN PRN IV SEE INSTRUCTIONS; Start at 20:45 Sodium Chloride 1,000 ml @ 25 mls/hr Q24H IV Last administered on 03/27/17 12:08; Start 03/24/17 at 20:43 Hydromorphone HCl 30 ml @ 0 mls/hr CONT PRN PRN IV PROTOCOL Last administered on 03/24/17 23:16; Start 03/24/17 at 20:45 Prochlorperazine Edisylate (Compazine) 5 mg PRN Q4HRS PRN IV NAUSEA/VOMITING, 2ND CHOICE; Start 03/25/17 at 07:45 Pantoprazole Sodium (PROTONIX VIAL for IV PUSH) 40 mg DAILYAC IVP Last administered on 04/10/17 08:03; Start 03/25/17 at 10:15 Linezolid 300 ml @ 300 mls/hr Q12HR IV Last administered on 03/26/17 20:54; Start 03/25/17 at 11:00; Stop 03/27/17 at 08:05; Status DC Fluconazole/ Sodium Chloride 100 ml @ 100 mls/hr Q24H IV Last administered on 04/07/17 11:52; Start 03/25/17 at 11:00; Stop 04/07/17 at 13:39; Status DC Dextrose/Lactated Ringer's 1,000 ml @ 75 mls/hr [id number] IV Last administered on 04/03/17 08:54; Start 03/25/17 at 17:00; Stop 04/04/17 at 09:23; Status DC Famotidine (Pepcid Vial) 40 mg QHS IVP Last administered on 03/28/17 21:35; Start 03/25/17 at 21:00; Stop 03/29/17 at 08:02; Status DC Lorazepam (Ativan) 0.5 mg 1X ONCE IV ; Start 03/26/17 at 07:00; Stop at 07:01; Status Cancel Lorazepam (Ativan) 0.5 mg PRN Q8HRS PRN PO ANXIETY / AGITATION; Start at 07:00; Status Cancel Furosemide (Lasix) 40 mg 1X ONCE IVP Last administered on 03/26/17 09:54; Start 03/26/17 at 09:00; Stop 03/26/17 at 09:01; Status DC Furosemide (Lasix) 20 mg DAILY IVP Last administered on 03/30/17 09:29; Start 03/27/17 at 09:00; Stop 03/31/17 at 12:22; Status DC Digoxin (Lanoxin) 250 mcg 1X ONCE IV Last administered on 03/26/17 15:06; Start 03/26/17 at 15:15; Stop 03/26/17 at 15:16; Status DC Iohexol (Omnipaque 300 Mg/ml) 75 ml 1X ONCE IV Last administered on 16:41; Start 03/26/17 at 16:45; Stop 03/26/17 at 16:46; Status DC Info (Do NOT chart on this entry -- for MONITORING) 1 each PRN DAILY PRN MC SEE COMMENTS; Start 03/26/17 at 16:45; Stop 03/28/17 at 16:44; Status DC Norepinephrine Bitartrate 250 ml @ As Directed STK-MED ONCE IV ; Start at 17:42; Stop 03/26/17 at 17:43; Status DC Norepinephrine Bitartrate 250 ml @ 0 mls/hr CONT PRN IV SEE I/O RECORD Last administered on 03/26/17 18:01; Start 03/26/17 at 18:00; Stop 04/04/17 at 09 :57; Status DC Enoxaparin Sodium (Lovenox Per Pharmacy Treatment Dosing) 1 each PRN DAILY PRN MC SEE COMMENTS; Start 03/26/17 at 19:30; Stop 03/28/17 at 12:38; Status DC Enoxaparin Sodium (Lovenox 80mg Syringe) 80 mg Q12HR SQ Last administered on 21:51; Start 03/26/17 at 20:00; Stop 03/28/17 at 15:36; Status DC Daptomycin 460 mg/ Sodium Chloride 50 ml @ 100 mls/hr Q24H IV Last administered on 04/09/17 10:23; Start 03/27/17 at 09:00 Digoxin (Lanoxin) 250 mcg 1X ONCE IV Last administered on 03/27/17 12:09; Start 03/27/17 at 12:00; Stop 03/27/17 at 12:01; Status DC Insulin Detemir (Levemir) 5 units QHS SQ Last administered on 04/04/17 21:30 ; Start 03/27/17 at 21:00; Stop 04/05/17 at 09:34; Status DC Albumin Human 100 ml @ 100 mls/hr Q8H IV Last administered on 03/29/17 00:42 ; Start 03/28/17 at 09:00; Stop 03/29/17 at 01:59; Status DC Lorazepam (Ativan) 1 mg PRN Q6HRS PRN PO ANXIETY / AGITATION Last administered on 04/07/17 05:43; Start 03/28/17 at 16:00; Stop 04/07/17 at 16:34; Status DC Iohexol (Omnipaque 300 Mg/ml) 75 ml 1X ONCE IV Last administered on 16:00; Start 03/28/17 at 16:00; Stop 03/28/17 at 16:02; Status DC Info (Do NOT chart on this entry -- for MONITORING) 1 each PRN DAILY PRN MC SEE COMMENTS; Start 03/28/17 at 16:15; Stop 03/30/17 at 16:14; Status DC Fentanyl Citrate (Fentanyl 2ml Vial) 50 mcg PRN Q4HRS PRN IV PAIN Last administered on 04/01/17 08:14; Start 03/29/17 at 09:45 Ciprofloxacin/ Dextrose 200 ml @ 200 mls/hr Q12HR IV Last administered on 08:58; Start 03/30/17 at 09:00; Stop 04/04/17 at 10:45; Status DC Lorazepam (Ativan) 0.5 mg Q12HR PO Last administered on 04/10/17 08:02; Start 03/30/17 at 21:00 Dopamine HCl/ Dextrose 250 ml @ 15.155 mls/ hr CONT PRN IV SEE I/O RECORD Last administered on 04/06/17 15:44; Start 03/31/17 at 13:00 Info 1 each PRN DAILY PRN MC SEE COMMENTS Last administered on 04/09/17 13:49 ; Start 04/03/17 at 12:15 Sodium Chloride 90 meq/Potassium Chloride 50 meq/ Potassium Phosphate 20.4 mmol/ Magnesium Sulfate 10 meq/ Calcium Gluconate 10 meq/ Multivitamins 10 ml/Chromium / Copper/Manganese/ Seleni/Zn 1 ml/ Total Parenteral Nutrition/Amino Acids/ Dextrose/ Fat Emulsion Intravenous 1,512 ml @ 63 mls/hr TPN CONT IV Last administered on 04/03/17 21:38; Start 04/03/17 at 22:00; Stop 04/04/17 at 21 :59; Status DC Levofloxacin/ Dextrose 100 ml @ 100 mls/hr Q24H IV Last administered on 21:47; Start 04/04/17 at 21:00; Stop 04/07/17 at 13:39; Status DC Furosemide (Lasix) 40 mg DAILY IVP Last administered on 04/10/17 08:02; Start 04/04/17 at 12:00 Sodium Chloride 90 meq/Potassium Chloride 50 meq/ Potassium Phosphate 20.4 mmol/ Magnesium Sulfate 16 meq/ Calcium Gluconate 10 meq/ Multivitamins 10 ml/Chromium / Copper/Manganese/ Seleni/Zn 1 ml/ Total Parenteral Nutrition/Amino Acids/ Dextrose/ Fat Emulsion Intravenous 1,512 ml @ 63 mls/hr TPN CONT IV Last administered on 04/04/17 21:16; Start 04/04/17 at 22:00; Stop 04/05/17 at 21 :59; Status DC Insulin Detemir (Levemir) 20 units QHS SQ Last administered on 04/09/17 21:49 ; Start 04/05/17 at 21:00 Insulin Detemir (Levemir) 10 units 1X ONCE SQ Last administered on 04/05/17 14:12; Start 04/05/17 at 09:45; Stop 04/05/17 at 09:46; Status DC Sodium Chloride 90 meq/Potassium Chloride 50 meq/ Potassium Phosphate 20.4 mmol/ Magnesium Sulfate 24 meq/ Calcium Gluconate 10 meq/ Multivitamins 10 ml/Chromium / Copper/Manganese/ Seleni/Zn 1 ml/ Total Parenteral Nutrition/Amino Acids/ Dextrose/ Fat Emulsion Intravenous 1,512 ml @ 63 mls/hr TPN CONT IV Last administered on 04/05/17 20:55; Start 04/05/17 at 22:00; Stop 04/06/17 at 21: 59; Status DC Iohexol (Omnipaque 300 Mg/ml) 75 ml 1X ONCE IV ; Start 04/05/17 at 13:00; Stop 04/05/17 at 13:01; Status DC Iohexol (Omnipaque 240 Mg/ml) 30 ml 1X ONCE PO ; Start 04/05/17 at 13:00; Stop 04/05/17 at 13:01; Status DC Info (Do NOT chart on this entry -- for MONITORING) 1 each PRN DAILY PRN MC SEE COMMENTS; Start 04/05/17 at 13:00; Stop 04/07/17 at 12:59; Status DC Sodium Chloride 90 meq/Potassium Chloride 50 meq/ Potassium Phosphate 20.4 mmol/ Magnesium Sulfate 24 meq/ Calcium Gluconate 10 meq/ Multivitamins 10 ml/Chromium / Copper/Manganese/ Seleni/Zn 1 ml/ Total Parenteral Nutrition/Amino Acids/ Dextrose/ Fat Emulsion Intravenous 1,512 ml @ 63 mls/hr TPN CONT IV Last administered on 04/06/17t 21:45; Start 04/06/17 at 22:00; Stop 04/07/17 at 21:59 ; Status DC Lidocaine/Sodium Bicarbonate (Buffered Lidocaine 1%) 20 ml STK-MED ONCE IJ ; Start 04/06/17 at 14:28; Stop 04/06/17 at 14:29; Status DC Fentanyl Citrate (Fentanyl 2ml Vial) 100 mcg STK-MED ONCE .ROUTE ; Start at 14:45; Stop 04/06/17 at 14:46; Status DC Midazolam HCl (Versed) 2 mg STK-MED ONCE .ROUTE ; Start 04/06/17 at 14:45; Stop 04/06/17 at 14:46; Status DC Flumazenil (Romazicon) 0.5 mg STK-MED ONCE IV ; Start 04/06/17 at 14:45; Stop 04/06/17 at 14:46; Status DC Naloxone HCl (Narcan) 0.4 mg STK-MED ONCE .ROUTE ; Start 04/06/17 at 14:45; Stop 04/06/17 at 14:46; Status DC Dopamine HCl/ Dextrose 250 ml @ As Directed STK-MED ONCE IV ; Start 04/06/17 at 14:50; Stop 04/06/17 at 14:51; Status DC Lidocaine/Sodium Bicarbonate (Buffered Lidocaine 1%) 7 ml 1X ONCE IJ Last administered on 04/06/17 15:20; Start 04/06/17 at 15:30; Stop 04/06/17 at 15:31 ; Status DC Sodium Chloride 90 meq/Potassium Chloride 50 meq/ Potassium Phosphate 13.6 mmol/ Magnesium Sulfate 20 meq/ Calcium Gluconate 10 meq/ Multivitamins 10 ml/Chromium / Copper/Manganese/ Seleni/Zn 1 ml/ Total Parenteral Nutrition/Amino Acids/ Dextrose/ Fat Emulsion Intravenous 1,512 ml @ 63 mls/hr TPN CONT IV Last administered on 04/07/17 21:19; Start 04/07/17 at 22:00; Stop 04/08/17 at 21:59 ; Status DC Micafungin Sodium 100 mg/Sodium Chloride 100 ml @ 100 mls/hr Q24H IV Last administered on 04/09/17 14:00; Start 04/07/17 at 14:00 Metronidazole 100 ml @ 100 mls/hr Q8HRS IV Last administered on 04/10/17 06: 29; Start 04/07/17 at 14:00 Cefepime HCl 1 gm/ Dextrose 50 ml @ 100 mls/hr Q8HRS IV ; Start 04/07/17 at 14: 00; Status UNV Cefepime HCl (Maxipime) 1 gm Q8HRS IVP Last administered on 04/10/17 05:58; Start 04/07/17 at 14:00 Sodium Chloride 90 meq/Potassium Chloride 50 meq/ Potassium Phosphate 13.6 mmol/ Magnesium Sulfate 20 meq/ Calcium Gluconate 10 meq/ Multivitamins 10 ml/Chromium / Copper/Manganese/ Seleni/Zn 1 ml/ Total Parenteral Nutrition/Amino Acids/ Dextrose/ Fat Emulsion Intravenous 1,512 ml @ 63 mls/hr TPN CONT IV Last administered on 04/08/17 21:23; Start 04/08/17 at 22:00; Stop 04/09/17 at 21:59 ; Status DC Furosemide (Lasix) 40 mg 1X ONCE IVP Last administered on 04/09/17 10:03; Start 04/09/17 at 08:15; Stop 04/09/17 at 08:16; Status DC Sodium Chloride 90 meq/Potassium Chloride 50 meq/ Potassium Phosphate 13.6 mmol/ Magnesium Sulfate 20 meq/ Calcium Gluconate 10 meq/ Multivitamins 10 ml/Chromium / Copper/Manganese/ Seleni/Zn 1 ml/ Total Parenteral Nutrition/Amino Acids/ Dextrose/ Fat Emulsion Intravenous 1,512 ml @ 63 mls/hr TPN CONT IV Last administered on 04/09/17t 21:52; Start 04/09/17 at 22:00; Stop 04/10/17 at 21:59 Active Scripts Active Reported Flagyl (Metronidazole) 500 Mg Tablet 1 Tab PO BID Cefpodoxime Proxetil 200 Mg Tablet 1 Tab PO BID Ferrous Sulfate 325 Mg Tablet 1 Tab PO DAILY Lasix (Furosemide) 40 Mg Tablet 40 Mg PO QODAY Potassium Chloride 10 Meq Capsule.er 10 Meq PO QODAY Metoprolol Tartrate 25 Mg Tablet 12.5 Mg PO BID Atorvastatin Calcium 40 Mg Tablet 40 Mg PO HS Clopidogrel (Clopidogrel Bisulfate) 75 Mg Tablet 1 Tab PO DAILY Diclofenac Sodium 75 Mg Tablet.dr 75 Mg PO DAILY Ranitidine Hcl 150 Mg Tablet 1 Tab PO BID Aspirin 81 Mg Tab.chew 1 Tab PO DAILY Vitals/I & O Vital Sign - Last 24 Hours 04/09/17 04/09/17 04/09/17 04/09/17 10:00 10:04 10:04 11:00 Temp 99.1 99.1 Pulse 78 103 53 Resp 32 34 28 B/P (MAP) 118/58 (78) 103/43 101/54 (70) Pulse Ox 98 98 98 O2 Delivery BiPAP/CPAP BiPAP/CPAP O2 Flow Rate 5.0 5.0 5.0 04/09/17 04/09/17 04/09/17 04/09/17 11:36 12:00 13:00 13:30 Temp 97.5 97.5 Pulse 73 50 Resp 30 32 B/P (MAP) 81/48 (59) 85/49 (61) Pulse Ox 98 98 98 98 O2 Delivery BiPAP/CPAP BiPAP/CPAP BiPAP/CPAP BiPAP/CPAP O2 Flow Rate 5.0 5.0 04/09/17 04/09/17 04/09/17 04/09/17 14:00 15:00 15:31 16:00 Pulse 52 83 Resp 23 36 B/P (MAP) 109/48 (68) 106/56 (73) Pulse Ox 98 98 98 O2 Delivery BiPAP/CPAP BiPAP/CPAP BiPAP/CPAP Bi-pap O2 Flow Rate 5.0 5.0 5.0 04/09/17 04/09/17 04/09/17 04/09/17 16:00 16:51 17:00 17:51 Temp 98.0 98.0 Pulse 94 94 Resp 36 38 28 24 B/P (MAP) 110/55 (73) 102/52 (69) Pulse Ox 99 99 99 97 O2 Delivery BiPAP/CPAP BiPAP/CPAP BiPAP/CPAP Nasal Cannula O2 Flow Rate 5.0 5.0 5.0 4.0 04/09/17 04/09/17 04/09/17 04/09/17 18:00 19:00 19:59 20:00 Temp 98.8 98.8 Pulse 53 66 90 Resp 32 30 32 B/P (MAP) 107/61 (76) 86/54 (65) 100/48 (65) Pulse Ox 97 97 98 98 O2 Delivery Nasal Cannula BiPAP/CPAP BiPAP/CPAP BiPAP/CPAP O2 Flow Rate 4.0 4.0 04/09/17 04/09/17 04/09/17 04/09/17 20:00 20:00 21:00 22:00 Temp 97.8 97.8 97.8 97.8 Pulse 88 92 Resp 37 42 B/P (MAP) 87/46 (60) 86/50 (62) Pulse Ox 99 98 O2 Delivery Bi-pap BiPAP/CPAP BiPAP/CPAP O2 Flow Rate 5.0 4.0 4.0 04/09/17 04/09/17 04/09/17 04/10/17 22:05 23:00 23:43 00:00 Temp 99.1 99.4 99.1 99.4 Pulse 101 98 Resp 39 40 B/P (MAP) 107/53 (71) 114/50 (71) Pulse Ox 99 97 99 99 O2 Delivery BiPAP/CPAP BiPAP/CPAP BiPAP/CPAP BiPAP/CPAP O2 Flow Rate 4.0 4.0 04/10/17 04/10/17 04/10/17 04/10/17 00:00 01:00 01:10 02:00 Temp 99.4 99.6 99.4 99.6 Pulse 98 99 Resp 40 38 B/P (MAP) 95/51 (66) 92/49 (63) Pulse Ox 99 99 98 O2 Delivery Bi-pap BiPAP/CPAP BiPAP/CPAP BiPAP/CPAP O2 Flow Rate 4.0 4.0 04/10/17 04/10/17 04/10/17 04/10/17 03:00 03:08 04:00 04:00 Temp 99.0 98.6 99.0 98.6 Pulse 93 92 Resp 27 40 B/P (MAP) 93/50 (64) 99/52 (68) Pulse Ox 98 99 98 O2 Delivery BiPAP/CPAP BiPAP/CPAP BiPAP/CPAP Bi-pap O2 Flow Rate 4.0 04/10/17 04/10/17 04/10/17 04/10/17 04:45 05:00 06:00 07:25 Temp 99.0 98.7 99.6 99.0 98.7 99.6 Pulse 94 93 68 Resp 40 36 B/P (MAP) 97/53 (68) 101/50 (67) 98/54 (69) Pulse Ox 99 99 98 96 O2 Delivery BiPAP/CPAP BiPAP/CPAP BiPAP/CPAP BiPAP/CPAP O2 Flow Rate 4.0 04/10/17 04/10/17 04/10/17 04/10/17 07:29 07:50 07:50 08:02 Pulse 93 B/P (MAP) 101/50 Pulse Ox 97 O2 Delivery BiPAP/CPAP Bi-pap O2 Flow Rate 4.0 4.0 04/10/17 04/10/17 08:05 08:12 Pulse 55 Resp 25 B/P (MAP) 101/52 (68) Pulse Ox 97 97 O2 Delivery BiPAP/CPAP BiPAP/CPAP O2 Flow Rate 4.0 4.0 Intake and Output 04/09/17 04/09/17 04/10/17 15:00 23:00 07:00 Intake Total 250 ml 1040 ml 552 ml Output Total 1730 ml 1610 ml 500 ml Balance -1480 ml -570 ml 52 ml DANNY MEZA MD Apr 10, 2017 09:10
[2017-04-10] MEDS: DAPTOMYCIN IV SCH (09:18)
[2017-04-10] MEDS: NORMAL SALINE IV SCH (09:18)
[2017-04-10] MEDS: TPN PER PHARMACY MC PRN (09:30)
--- NOTE | 2017-04-10 09:51 | PDOC ---
PULMONARY PROGRESS NOTES Subjective PT TRANSFERRED OT ICU YESTERDAY NOW OFF BIPAP FEELS BETTER Vitals Vital Signs Date Time Temp Pulse Resp B/P (MAP) Pulse Ox O2 Delivery O2 Flow Rate FiO2 04/10/17 09:10 97 4.0 04/10/17 08:12 BiPAP/CPAP 04/10/17 08:05 55 25 101/52 (68) 04/10/17 07:25 99.6 99.6 General: Alert Lungs: Clear Cardiovascular: S1, S2 Abdomen: Soft, Other (continues to have drainage from the abdo wound,lower incision site,brownish fluid) Neuro Exam: Alert Extremities: Other (1+edema) Skin: Warm Labs Laboratory Tests Test 04/08/17 11:42 04/08/17 17:11 04/08/17 20:44 04/09/17 06:00 Glucose (Fingerstick) 216 mg/dL (70-99) 148 mg/dL (70-99) 164 mg/dL (70-99) White Blood Count 7.8 x10^3/uL (4.0-11.0) Red Blood Count 2.69 x10^6/uL (3.50-5.40) Hemoglobin 7.7 g/dL (12.0-15.5) Hematocrit 23.2 % (36.0-47.0) Mean Corpuscular Volume 86 fL (79-100) Mean Corpuscular Hemoglobin 29 pg (25-35) Mean Corpuscular Hemoglobin Concent 33 g/dL (31-37) Red Cell Distribution Width 17.6 % (11.5-14.5) Platelet Count 341 x10^3/uL (140-400) Sodium Level 138 mmol/L (136-145) Potassium Level 3.6 mmol/L (3.5-5.1) Chloride Level 104 mmol/L (98-107) Carbon Dioxide Level 29 mmol/L (21-32) Anion Gap 5 (6-14) Blood Urea Nitrogen 20 mg/dL (7-20) Creatinine 0.7 mg/dL (0.6-1.0) Estimated GFR (Cockcroft-Gault) 82.5 BUN/Creatinine Ratio 29 (6-20) Glucose Level 134 mg/dL (70-99) Calcium Level 8.0 mg/dL (8.5-10.1) Phosphorus Level 4.1 mg/dL (2.6-4.7) Magnesium Level 2.3 mg/dL (1.8-2.4) Total Bilirubin 0.4 mg/dL (0.2-1.0) Aspartate Amino Transf (AST/SGOT) 32 U/L (15-37) Alanine Aminotransferase (ALT/SGPT) 12 U/L (14-59) Alkaline Phosphatase 105 U/L (46-116) Total Protein 4.6 g/dL (6.4-8.2) Albumin 0.8 g/dL (3.4-5.0) Albumin/Globulin Ratio 0.2 (1.0-1.7) Test 04/09/17 08:55 04/09/17 21:41 04/10/17 05:20 04/10/17 07:22 O2 Saturation 94 % (92-99) Arterial Blood pH 7.47 (7.35-7.45) Arterial Blood pCO2 at Patient Temp 34 mmHg (35-46) Arterial Blood pO2 at Patient Temp 75 mmHg (65-108) Arterial Blood HCO3 25 mmol/L (21-28) Arterial Blood Base Excess 1 mmol/L (-3-3) FiO2 35 Glucose (Fingerstick) 191 mg/dL (70-99) 175 mg/dL (70-99) White Blood Count 7.2 x10^3/uL (4.0-11.0) Red Blood Count 2.74 x10^6/uL (3.50-5.40) Hemoglobin 7.8 g/dL (12.0-15.5) Hematocrit 23.8 % (36.0-47.0) Mean Corpuscular Volume 87 fL (79-100) Mean Corpuscular Hemoglobin 29 pg (25-35) Mean Corpuscular Hemoglobin Concent 33 g/dL (31-37) Red Cell Distribution Width 17.5 % (11.5-14.5) Platelet Count 344 x10^3/uL (140-400) Neutrophils (%) (Auto) 81 % (31-73) Lymphocytes (%) (Auto) 13 % (24-48) Monocytes (%) (Auto) 6 % (0-9) Eosinophils (%) (Auto) 0 % (0-3) Basophils (%) (Auto) 0 % (0-3) Neutrophils # (Auto) 5.8 x10^3uL (1.8-7.7) Lymphocytes # (Auto) 0.9 x10^3/uL (1.0-4.8) Monocytes # (Auto) 0.4 x10^3/uL (0.0-1.1) Eosinophils # (Auto) 0.0 x10^3/uL (0.0-0.7) Basophils # (Auto) 0.0 x10^3/uL (0.0-0.2) Sodium Level 138 mmol/L (136-145) Potassium Level 3.5 mmol/L (3.5-5.1) Chloride Level 102 mmol/L (98-107) Carbon Dioxide Level 30 mmol/L (21-32) Anion Gap 6 (6-14) Blood Urea Nitrogen 21 mg/dL (7-20) Creatinine 0.7 mg/dL (0.6-1.0) Estimated GFR (Cockcroft-Gault) 82.5 BUN/Creatinine Ratio 30 (6-20) Glucose Level 178 mg/dL (70-99) Calcium Level 7.8 mg/dL (8.5-10.1) Total Bilirubin 0.5 mg/dL (0.2-1.0) Aspartate Amino Transf (AST/SGOT) 15 U/L (15-37) Alanine Aminotransferase (ALT/SGPT) 11 U/L (14-59) Alkaline Phosphatase 85 U/L (46-116) Creatine Kinase 55 U/L (26-192) Total Protein 4.6 g/dL (6.4-8.2) Albumin 0.8 g/dL (3.4-5.0) Albumin/Globulin Ratio 0.2 (1.0-1.7) Thyroid Stimulating Hormone (TSH) 6.522 uIU/mL (0.358-3.74) Laboratory Tests Test 04/09/17 21:41 04/10/17 05:20 04/10/17 07:22 Glucose (Fingerstick) 191 mg/dL (70-99) 175 mg/dL (70-99) White Blood Count 7.2 x10^3/uL (4.0-11.0) Red Blood Count 2.74 x10^6/uL (3.50-5.40) Hemoglobin 7.8 g/dL (12.0-15.5) Hematocrit 23.8 % (36.0-47.0) Mean Corpuscular Volume 87 fL (79-100) Mean Corpuscular Hemoglobin 29 pg (25-35) Mean Corpuscular Hemoglobin Concent 33 g/dL (31-37) Red Cell Distribution Width 17.5 % (11.5-14.5) Platelet Count 344 x10^3/uL (140-400) Neutrophils (%) (Auto) 81 % (31-73) Lymphocytes (%) (Auto) 13 % (24-48) Monocytes (%) (Auto) 6 % (0-9) Eosinophils (%) (Auto) 0 % (0-3) Basophils (%) (Auto) 0 % (0-3) Neutrophils # (Auto) 5.8 x10^3uL (1.8-7.7) Lymphocytes # (Auto) 0.9 x10^3/uL (1.0-4.8) Monocytes # (Auto) 0.4 x10^3/uL (0.0-1.1) Eosinophils # (Auto) 0.0 x10^3/uL (0.0-0.7) Basophils # (Auto) 0.0 x10^3/uL (0.0-0.2) Sodium Level 138 mmol/L (136-145) Potassium Level 3.5 mmol/L (3.5-5.1) Chloride Level 102 mmol/L (98-107) Carbon Dioxide Level 30 mmol/L (21-32) Anion Gap 6 (6-14) Blood Urea Nitrogen 21 mg/dL (7-20) Creatinine 0.7 mg/dL (0.6-1.0) Estimated GFR (Cockcroft-Gault) 82.5 BUN/Creatinine Ratio 30 (6-20) Glucose Level 178 mg/dL (70-99) Calcium Level 7.8 mg/dL (8.5-10.1) Total Bilirubin 0.5 mg/dL (0.2-1.0) Aspartate Amino Transf (AST/SGOT) 15 U/L (15-37) Alanine Aminotransferase (ALT/SGPT) 11 U/L (14-59) Alkaline Phosphatase 85 U/L (46-116) Creatine Kinase 55 U/L (26-192) Total Protein 4.6 g/dL (6.4-8.2) Albumin 0.8 g/dL (3.4-5.0) Albumin/Globulin Ratio 0.2 (1.0-1.7) Thyroid Stimulating Hormone (TSH) 6.522 uIU/mL (0.358-3.74) Medications Active Scripts Medications Dose Route/Sig Max Daily Dose Days Date Category Flagyl (Metronidazole) 500 Mg Tablet 1 Tab PO BID 03/01/17 Reported Cefpodoxime Proxetil 200 Mg Tablet 1 Tab PO BID 03/01/17 Reported Ferrous Sulfate 325 Mg Tablet 1 Tab PO DAILY 02/23/17 Reported Lasix (Furosemide) 40 Mg Tablet 40 Mg PO QODAY 02/23/17 Reported Potassium Chloride 10 Meq Capsule.er 10 Meq PO QODAY 02/23/17 Reported Metoprolol Tartrate 25 Mg Tablet 12.5 Mg PO BID 01/31/17 Reported Atorvastatin Calcium 40 Mg Tablet 40 Mg PO HS 01/31/17 Reported Clopidogrel (Clopidogrel Bisulfate) 75 Mg Tablet 1 Tab PO DAILY 08/24/15 Reported Diclofenac Sodium 75 Mg Tablet.dr 75 Mg PO DAILY 12/21/14 Reported Ranitidine Hcl 150 Mg Tablet 1 Tab PO BID 12/21/14 Reported Aspirin 81 Mg Tab.chew 1 Tab PO DAILY 04/15/14 Reported Impression . 1. [id number] respiratory failure, expected status post surgical intervention. SUBJECTIVE dyspnea/ Comfortable on BIPAP. suspect due to abdominal process 2. Status post laparoscopic converted to open exploration for extensive lysis of adhesion, removal of old mesh, subtotal colectomy, small bowel resection and incisional hernia repair.Now with brown drainage from wound. entero-cutaneous fistula/ abscess 3. Obesity, body mass index of 35. 4. Leukocytosis. 5. Enterocutaneous fistula. Abdominal abscess, measuring 6.4 x 4.9 cm. s/p drain 03/12. Klebsiella ( R to Zosyn, S Cipro/Levo), VRE (R PCN) and PSAE ( R to ticarcillin only otherwise sensitive, S Cipro/Levo) and C tropicalis -h/o Strep anginosis and Bacteroides 6. Fever. 7. Abdominal abscess. 8. Ventral hernia, status post repair. 9. Bilateral effusions due to low oncotic pressure/ repeat cxr 04/02 with volume loss bases, no sig. fluid to tap, small effusions on ct 04/05 10. Anxiety disorder Plan . WILL USE BIPAP Q PALLIATIVE CARE TO MEET WITH SON AND PT LATER TODAY REPEAT CT ABDOMEN/PELVIS REVIEWED/ SMALL EFFUSIONS, DOES NOT NEED TAP LASIX PRN IMPROVE NUTRITIONAL STATUS/ SEVERE MALNUTRITION VENOUS DOPPLER NEGATIVE/ CT NEGATIVE FOR PE MONITOR PLATELET / MUCH IMPROVED ANXIETY/ ON SCHEDULED ATIVAN ABDOMINAL DRAIN BY IR D/W SON PT NOW A FULL CODE I WOULD FAVOR NO INTUBATION I THINK IF SHE GET INTUBATED SHE WILL END UP WITH TRACH AND [facility]PC NON [facility] UNIT IFEOMA SEXTON MD Apr 10, 2017 09:51
--- NOTE | 2017-04-10 11:06 | CARD ---
APPROVED REPORT EXAM: LIMITED Two-dimensional echocardiogram with Doppler and color Doppler. Other Information Quality : Good INDICATION Respiratory Failure, Rule Out Pulmonary Embolism Tricuspid Valve TR P. [id number] TR Peak [id number] LEFT VENTRICLE Left ventricle ejection fraction is mildly impaired. The Ejection Fraction is 45%. RIGHT VENTRICLE The right ventricle is normal size. The right ventricular systolic function is normal. ATRIA The right atrium size is normal. TRICUSPID VALVE The tricuspid valve is normal in structure and function. Doppler and Color Flow revealed mild tricusp id regurgitation. There is mild pulmonary hypertension. The PA pressure was estimated at 35 mmHg. The re is no tricuspid valve stenosis. GREAT VESSELS na PERICARDIAL EFFUSION There is moderate left pleural effusion. There is no evidence of significant pericardial effusion. Critical Notification Critical Value: No <Conclusion> Limited 2D echo to rule out RV enlargment Left ventricle ejection fraction is mildly impaired. The Ejection Fraction is 45%. The right ventricle is normal size. There is no evidence of significant pericardial effusion.
--- NOTE | 2017-04-10 11:25 | PDOC2 ---
PALLIATIVE CARE Palliative Care Note Palliative Care Spoke with patient and son Chris. Patient off BiPap ---feels better. RR 32-34. Reviewed conversations patient and son had with physicians. Patient wants to continue to try to get better. Son Chris supportive of her wish. Understands that this will need to be evaluated closely as respiratory condition could decline rapidly. Encouraged patient and son to have conversation about any limitations of care that she would want. They understand that recovery could be a long process. Will continue to follow closely. Chris will be at work tomorrow but available by phone if anything changes. KATI ROSE Apr 10, 2017 11:25
--- NOTE | 2017-04-10 11:52 | PDOC ---
SURGICAL PROGRESS NOTE Subjective Pt without new c/o, appears fatigued. Nurys some PO Vital Signs Vital Signs Date Time Temp Pulse Resp B/P (MAP) Pulse Ox O2 Delivery O2 Flow Rate FiO2 04/10/17 11:45 98.1 86 38 89/50 (63) 98 Nasal Cannula 5.0 98.1 I&O Intake and Output 04/10/17 07:00 Intake Total 1842 ml Output Total 3840 ml Balance -1998 ml Intake Oral 170 ml IV Total 1672 ml Tube Feeding 0 ml Output Urine Total 3330 ml Stool Total 85 ml Urine/Stool Mix 175 ml Drainage Total 250 ml General: Alert, Cooperative, No acute distress Abdomen: Soft, No tenderness, Other (dressing intact, ostomy fxn) Labs Laboratory Tests Test 04/08/17 17:11 04/08/17 20:44 04/09/17 06:00 04/09/17 08:55 Glucose (Fingerstick) 148 mg/dL (70-99) 164 mg/dL (70-99) White Blood Count 7.8 x10^3/uL (4.0-11.0) Red Blood Count 2.69 x10^6/uL (3.50-5.40) Hemoglobin 7.7 g/dL (12.0-15.5) Hematocrit 23.2 % (36.0-47.0) Mean Corpuscular Volume 86 fL (79-100) Mean Corpuscular Hemoglobin 29 pg (25-35) Mean Corpuscular Hemoglobin Concent 33 g/dL (31-37) Red Cell Distribution Width 17.6 % (11.5-14.5) Platelet Count 341 x10^3/uL (140-400) Sodium Level 138 mmol/L (136-145) Potassium Level 3.6 mmol/L (3.5-5.1) Chloride Level 104 mmol/L (98-107) Carbon Dioxide Level 29 mmol/L (21-32) Anion Gap 5 (6-14) Blood Urea Nitrogen 20 mg/dL (7-20) Creatinine 0.7 mg/dL (0.6-1.0) Estimated GFR (Cockcroft-Gault) 82.5 BUN/Creatinine Ratio 29 (6-20) Glucose Level 134 mg/dL (70-99) Calcium Level 8.0 mg/dL (8.5-10.1) Phosphorus Level 4.1 mg/dL (2.6-4.7) Magnesium Level 2.3 mg/dL (1.8-2.4) Total Bilirubin 0.4 mg/dL (0.2-1.0) Aspartate Amino Transf (AST/SGOT) 32 U/L (15-37) Alanine Aminotransferase (ALT/SGPT) 12 U/L (14-59) Alkaline Phosphatase 105 U/L (46-116) Total Protein 4.6 g/dL (6.4-8.2) Albumin 0.8 g/dL (3.4-5.0) Albumin/Globulin Ratio 0.2 (1.0-1.7) O2 Saturation 94 % (92-99) Arterial Blood pH 7.47 (7.35-7.45) Arterial Blood pCO2 at Patient Temp 34 mmHg (35-46) Arterial Blood pO2 at Patient Temp 75 mmHg (65-108) Arterial Blood HCO3 25 mmol/L (21-28) Arterial Blood Base Excess 1 mmol/L (-3-3) FiO2 35 Test 04/09/17 21:41 04/10/17 05:20 04/10/17 07:22 Glucose (Fingerstick) 191 mg/dL (70-99) 175 mg/dL (70-99) White Blood Count 7.2 x10^3/uL (4.0-11.0) Red Blood Count 2.74 x10^6/uL (3.50-5.40) Hemoglobin 7.8 g/dL (12.0-15.5) Hematocrit 23.8 % (36.0-47.0) Mean Corpuscular Volume 87 fL (79-100) Mean Corpuscular Hemoglobin 29 pg (25-35) Mean Corpuscular Hemoglobin Concent 33 g/dL (31-37) Red Cell Distribution Width 17.5 % (11.5-14.5) Platelet Count 344 x10^3/uL (140-400) Neutrophils (%) (Auto) 81 % (31-73) Lymphocytes (%) (Auto) 13 % (24-48) Monocytes (%) (Auto) 6 % (0-9) Eosinophils (%) (Auto) 0 % (0-3) Basophils (%) (Auto) 0 % (0-3) Neutrophils # (Auto) 5.8 x10^3uL (1.8-7.7) Lymphocytes # (Auto) 0.9 x10^3/uL (1.0-4.8) Monocytes # (Auto) 0.4 x10^3/uL (0.0-1.1) Eosinophils # (Auto) 0.0 x10^3/uL (0.0-0.7) Basophils # (Auto) 0.0 x10^3/uL (0.0-0.2) Sodium Level 138 mmol/L (136-145) Potassium Level 3.5 mmol/L (3.5-5.1) Chloride Level 102 mmol/L (98-107) Carbon Dioxide Level 30 mmol/L (21-32) Anion Gap 6 (6-14) Blood Urea Nitrogen 21 mg/dL (7-20) Creatinine 0.7 mg/dL (0.6-1.0) Estimated GFR (Cockcroft-Gault) 82.5 BUN/Creatinine Ratio 30 (6-20) Glucose Level 178 mg/dL (70-99) Calcium Level 7.8 mg/dL (8.5-10.1) Total Bilirubin 0.5 mg/dL (0.2-1.0) Aspartate Amino Transf (AST/SGOT) 15 U/L (15-37) Alanine Aminotransferase (ALT/SGPT) 11 U/L (14-59) Alkaline Phosphatase 85 U/L (46-116) Creatine Kinase 55 U/L (26-192) Total Protein 4.6 g/dL (6.4-8.2) Albumin 0.8 g/dL (3.4-5.0) Albumin/Globulin Ratio 0.2 (1.0-1.7) Thyroid Stimulating Hormone (TSH) 6.522 uIU/mL (0.358-3.74) Laboratory Tests Test 04/09/17 21:41 04/10/17 05:20 04/10/17 07:22 Glucose (Fingerstick) 191 mg/dL (70-99) 175 mg/dL (70-99) White Blood Count 7.2 x10^3/uL (4.0-11.0) Red Blood Count 2.74 x10^6/uL (3.50-5.40) Hemoglobin 7.8 g/dL (12.0-15.5) Hematocrit 23.8 % (36.0-47.0) Mean Corpuscular Volume 87 fL (79-100) Mean Corpuscular Hemoglobin 29 pg (25-35) Mean Corpuscular Hemoglobin Concent 33 g/dL (31-37) Red Cell Distribution Width 17.5 % (11.5-14.5) Platelet Count 344 x10^3/uL (140-400) Neutrophils (%) (Auto) 81 % (31-73) Lymphocytes (%) (Auto) 13 % (24-48) Monocytes (%) (Auto) 6 % (0-9) Eosinophils (%) (Auto) 0 % (0-3) Basophils (%) (Auto) 0 % (0-3) Neutrophils # (Auto) 5.8 x10^3uL (1.8-7.7) Lymphocytes # (Auto) 0.9 x10^3/uL (1.0-4.8) Monocytes # (Auto) 0.4 x10^3/uL (0.0-1.1) Eosinophils # (Auto) 0.0 x10^3/uL (0.0-0.7) Basophils # (Auto) 0.0 x10^3/uL (0.0-0.2) Sodium Level 138 mmol/L (136-145) Potassium Level 3.5 mmol/L (3.5-5.1) Chloride Level 102 mmol/L (98-107) Carbon Dioxide Level 30 mmol/L (21-32) Anion Gap 6 (6-14) Blood Urea Nitrogen 21 mg/dL (7-20) Creatinine 0.7 mg/dL (0.6-1.0) Estimated GFR (Cockcroft-Gault) 82.5 BUN/Creatinine Ratio 30 (6-20) Glucose Level 178 mg/dL (70-99) Calcium Level 7.8 mg/dL (8.5-10.1) Total Bilirubin 0.5 mg/dL (0.2-1.0) Aspartate Amino Transf (AST/SGOT) 15 U/L (15-37) Alanine Aminotransferase (ALT/SGPT) 11 U/L (14-59) Alkaline Phosphatase 85 U/L (46-116) Creatine Kinase 55 U/L (26-192) Total Protein 4.6 g/dL (6.4-8.2) Albumin 0.8 g/dL (3.4-5.0) Albumin/Globulin Ratio 0.2 (1.0-1.7) Thyroid Stimulating Hormone (TSH) 6.522 uIU/mL (0.358-3.74) Problem List Problems Medical Problems: (1) Abdominal abscess Status: Acute (2) Abdominal pain Status: Acute Assessment/Plan s/p xlap drain in place with greenish brown output, cont cont supportive care, OK to ADAT, if OK with pulm. On tpn. cont wound care. Problems: LI HAMMOND MD Apr 10, 2017 11:52
[2017-04-10] MEDS: MICAFUNGIN 100 MG in IV NORMAL SALINE 100ML 100 ML IV SCH (16:15)
[2017-04-10] MEDS: fentaNYL PF VIAL 100 MCG/2 ML VIAL IV PRN (19:22)
[2017-04-10] MEDS: IV NORMAL SALINE 1000ML BAG 1,000 ML IV SCH (20:43)
[2017-04-10] MEDS: INSULIN DETEMIR 300 UNITS/3 ML INSULN.PEN. SQ SCH (21:39)
[2017-04-10] MEDS ORDERED: [UNRECOGNIZED DRUG - OTHER] IV SCH ×10 (22:00)
[2017-04-10] MEDS ORDERED: TOTAL PARENTERAL NUTRITION IV SCH ×10 (22:00)
[2017-04-10] MEDS ORDERED: DEXTROSE 70% IV SCH ×10 (22:00)
[2017-04-10] MEDS ORDERED: AMINO ACIDS IV SCH ×10 (22:00)
[2017-04-11] VITALS (28 sets, daily range): BP systolic 63–136; BP diastolic 26–63
[2017-04-11] MEDS: HYDROcodone/APAP 7.5/325MG 1 TAB TABLET PO PRN ×4 (03:50→22:00)
[2017-04-11] MEDS: CEFEPIME HCL IV Push 1 GM VIAL. IVP SCH ×3 (05:35→21:59)
[2017-04-11 05:53] LABS: BASO % 0 % (0-3); EOS % 0 % (0-3); HEMATOCRIT 25.4 % (36.0-47.0); HEMOGLOBIN 8.2 g/dL (12.0-15.5); LYMPH # 0.6 x10^3/uL (1.0-4.8); LYMPH % 10 % (24-48); MEAN CORPUSCULAR HEMOGLOBIN 28 pg (25-35); MEAN CORPUSCULAR HGB CONC 32 g/dL (31-37); MEAN CORPUSCULAR VOLUME 88 fL (79-100); MONO % 8 % (0-9); NEUT % 82 % (31-73); PLATELET COUNT 358 x10^3/uL (140-400); RED CELL DISTRIBUTION WIDTH 17.5 % (11.5-14.5); WHITE BLOOD COUNT 6.2 x10^3/uL (4.0-11.0)
[2017-04-11 06:33] LABS: CREATININE 0.7 mg/dL (0.6-1.0); GFR 82.5; POTASSIUM 3.7 mmol/L (3.5-5.1)
--- NOTE | 2017-04-11 07:33 | PDOC ---
Infectious Disease Note Subjective Subjective States ok. No nausea/pain denies SOA or CP or generalized aches TPN Had a better day off BiPaP today ROS ROS GEN: Denies fevers, chills, sweats HEENT: Denies blurred vision, sore throat CV: Denies chest pain RESP: Denies shortness of air, cough GI: Denies n/v/d NEURO: Denies confusion, dizziness MSK: Denies weakness, joint pain/swelling Vital Sign Vital Signs Vital Signs Date Time Temp Pulse Resp B/P (MAP) Pulse Ox O2 Delivery O2 Flow Rate FiO2 04/11/17 07:15 99 BiPAP/CPAP 04/11/17 06:00 91 34 100/58 (72) 04/11/17 04:00 99.3 99.3 04/10/17 19:22 5.0 Physical Exam PHYSICAL EXAM GENERAL: Propped up in bed, appears comfortable HEENT: PERRL, on BiPAP LUNGS: Less crackles CV: S1 and S2 ABD: BS active, soft, NT light palpation. Ostomy + output, distal incision dehiscence, + drainage. + drain intact : [place] EXT: 1 plus edema BLE, no cyanosis SKIN: Without rash, warm to touch FLOOR CARE TECHNICIAN: Alert, oriented, following commands RUE-PICC. clean Labs Lab Laboratory Tests Test 04/10/17 11:49 04/10/17 17:50 04/11/17 05:40 Glucose (Fingerstick) 189 mg/dL (70-99) 165 mg/dL (70-99) White Blood Count 6.2 x10^3/uL (4.0-11.0) Red Blood Count 2.90 x10^6/uL (3.50-5.40) Hemoglobin 8.2 g/dL (12.0-15.5) Hematocrit 25.4 % (36.0-47.0) Mean Corpuscular Volume 88 fL (79-100) Mean Corpuscular Hemoglobin 28 pg (25-35) Mean Corpuscular Hemoglobin Concent 32 g/dL (31-37) Red Cell Distribution Width 17.5 % (11.5-14.5) Platelet Count 358 x10^3/uL (140-400) Neutrophils (%) (Auto) 82 % (31-73) Lymphocytes (%) (Auto) 10 % (24-48) Monocytes (%) (Auto) 8 % (0-9) Eosinophils (%) (Auto) 0 % (0-3) Basophils (%) (Auto) 0 % (0-3) Neutrophils # (Auto) 5.1 x10^3uL (1.8-7.7) Lymphocytes # (Auto) 0.6 x10^3/uL (1.0-4.8) Monocytes # (Auto) 0.5 x10^3/uL (0.0-1.1) Eosinophils # (Auto) 0.0 x10^3/uL (0.0-0.7) Basophils # (Auto) 0.0 x10^3/uL (0.0-0.2) Sodium Level 138 mmol/L (136-145) Potassium Level 3.7 mmol/L (3.5-5.1) Chloride Level 102 mmol/L (98-107) Carbon Dioxide Level 28 mmol/L (21-32) Anion Gap 8 (6-14) Blood Urea Nitrogen 23 mg/dL (7-20) Creatinine 0.7 mg/dL (0.6-1.0) Estimated GFR (Cockcroft-Gault) 82.5 Glucose Level 201 mg/dL (70-99) Calcium Level 8.0 mg/dL (8.5-10.1) Micro Klebsiella pneumoniae Moderate growth AEROBIC RES 2 Final Yeast Moderate growth Request for further identification must be made within 1 week. AEROBIC RES 3 Final Comment Vancomycin-resistant Enterococcus (Enterococcus faecium) Heavy growth AEROBIC RES 4 Final Comment Pseudomonas aeruginosa Moderate growth CONTINUED ON NEXT PAGE RUN DATE: 03/20/17 PAGE 2 RUN TIME: 823 [facility] [address] [place] [address] M[address]D., Chemical Lab Technician SPEC: [id number] PATIENT: SAFIA MIRANDA [id number] ( Continued) Procedure Result ANTIMICROBIAL SUSCEPTIBILITY Final Comment S = Susceptible; I = Intermediate; R = Resistant P = Positive; N = Negative MICS are expressed in micrograms per mL Antibiotic RSLT#1 RSLT#2 RSLT#3 RSLT#4 Amikacin S Amoxicillin/Clavulanic Acid S Ampicillin R Cefepime S S Ceftazidime S Ceftriaxone S Cefuroxime I Ciprofloxacin S S Ertapenem S Gentamicin S S Imipenem S S Levofloxacin S S Linezolid S Meropenem S Penicillin R Piperacillin R S Quinupristin/Dalfopristin S Tetracycline S Ticarcillin R Tobramycin S S Trimethoprim/Sulfa S Vancomycin R Performed at: [address] [id number] Quality Improvement Manager: Ashia Rogers MD, Phone: [phone] SUSCEPTIBILITY TESTING AEROBIC Final Final report SUSCEPTIBILITY TESTING AEROBIC Final Letitia tropicalis Letitia tropicalis susceptibility results: 5-Flucytosine 0.12 mcg/mL Sensitive Itraconazole 1 mcg/mL Resistant Fluconazole 1 mcg/mL Sensitive Voriconazole 0.12 mcg/mL Sensitive Performed at: [facility] [place] - [facility], [place], [place] [id number] Quality Improvement Manager: Ashia Rogers MD, Phone: [phone] Objective Assessment [id number] respiratory failure, now on BiPAP but appears comfortable. - pleural effusions -stable and small/ LE U/S 04/08 neg. ECHO 03/22 EF 40 - 45 %. Repeat 04/10 45 % Fever, UA neg - some better Elevated TSH Acute Anemia - s/p PRBCs one unit 04/08 s/p lap converted to open exploration, JAIRO, removal of infected mesh, subtotal colectomy, SBR and hernia repair, 03/24. 10.0 x 5.5 x 18.0 cm fluid collection with air-fluid levels in the right lower quadrant. s/p drain placement, 04/06. GS: PSAE/Enterococcus (VR times 2_ Wound dehiscence Nasal bridge from BiPAP and abd wound looks worse as has increased in size (pictures 04/08) Leukocytosis - improved Thrombocytopenia, resolved EC fistula Abdominal abscess, measuring 6.4 x 4.9 cm. s/p drain 03/12. Klebsiella ( R to Zosyn, S Cipro/Levo), VRE (R PCN) and PSAE ( R to ticarcillin only otherwise sensitive, S Cipro/Levo) and C tropicalis -h/o Strep anginosis and Bacteroides Ventral hernia DM HTN PCN allergy/amox also - hives and swelling Elevated CK - improved Plan Plan of Care Check T3/T4 with elevated TSH maybe sick euthyroid but may need treatment Cont Micafungin, Flagyl and Cefepime 04/07/ Dapto f/u cultures and monitor WBC, temp Supportive care D/w nursing Notes reviewed Guarded prognosis overall given resp failure/deconditioning and worsening wounds TERRA BEACH MD Apr 11, 2017 07:33
--- NOTE | 2017-04-11 08:24 | PDOC ---
SUBJECTIVE Subjective Pt feels a little better than yesterday. Off bipap today. On yesterday afternoon and at night. Pain adequately controlled. OBJECTIVE Objective Reviewed. Vital Signs Vital Signs Date Time Temp Pulse Resp B/P (MAP) Pulse Ox O2 Delivery O2 Flow Rate FiO2 04/11/17 07:15 99 BiPAP/CPAP 04/11/17 07:00 99.1 93 34 63/ 99 Nasal Cannula 5.0 99.1 04/11/17 06:00 91 34 100/58 (72) 98 BiPAP/CPAP 04/11/17 05:29 99 BiPAP/CPAP 04/11/17 05:00 91 31 97/57 (70) 98 BiPAP/CPAP 04/11/17 04:50 33 98 BiPAP/CPAP 04/11/17 04:00 99.3 98 35 100/59 (73) 97 BiPAP/CPAP 99.3 04/11/17 04:00 Bi-pap 04/11/17 03:50 33 98 BiPAP/CPAP 04/11/17 03:15 100 BiPAP/CPAP 04/11/17 03:00 97 40 110/63 (79) 97 BiPAP/CPAP 04/11/17 02:00 88 34 111/63 (79) 100 BiPAP/CPAP 04/11/17 01:00 86 26 102/60 (74) 100 BiPAP/CPAP 04/11/17 00:48 100 BiPAP/CPAP 04/11/17 00:00 98.6 87 30 104/62 (76) 98 BiPAP/CPAP 98.6 04/10/17 23:53 Bi-pap 04/10/17 23:11 98 BiPAP/CPAP 04/10/17 23:00 88 32 101/58 (72) 98 BiPAP/CPAP 04/10/17 22:00 94 31 94/57 (69) 99 BiPAP/CPAP 04/10/17 21:37 30 99 BiPAP/CPAP 04/10/17 21:00 88 36 102/57 (72) 100 BiPAP/CPAP 04/10/17 20:06 100 BiPAP/CPAP 04/10/17 20:00 Bi-pap 04/10/17 20:00 98.4 86 35 93/61 (72) 99 BiPAP/CPAP 98.4 04/10/17 19:52 30 100 BiPAP/CPAP 04/10/17 19:22 40 97 Nasal Cannula 5.0 04/10/17 19:00 92 34 100/55 (70) 97 BiPAP/CPAP 04/10/17 18:07 90 40 122/67 (85) 97 Nasal Cannula 5.0 04/10/17 17:00 88 41 79/51 (60) 98 BiPAP/CPAP 04/10/17 16:30 85 38 99/45 (63) 97 BiPAP/CPAP 04/10/17 16:27 Bi-pap 5.0 04/10/17 16:25 5.0 04/10/17 15:33 99.0 90 40 110/52 (71) 96 Nasal Cannula 5.0 99.0 04/10/17 15:28 99 Nasal Cannula 5.0 04/10/17 14:30 88 41 95/55 (68) 99 BiPAP/CPAP 4.0 04/10/17 13:17 90 34 96/56 (69) 99 Nasal Cannula 5.0 04/10/17 12:14 85 36 92/51 (65) 95 Nasal Cannula 5.0 04/10/17 12:00 Nasal Cannula 5.0 04/10/17 11:45 98.1 86 38 89/50 (63) 98 Nasal Cannula 5.0 98.1 04/10/17 10:26 86 37 101/52 (68) 98 Nasal Cannula 8.0 04/10/17 09:00 88 42 98/58 (71) 97 Nasal Cannula 5.0 04/10/17 08:12 97 BiPAP/CPAP 4.0 I & O Intake and Output 04/11/17 06:59 Intake Total 2498.2 ml Output Total 2871 ml Balance -372.8 ml Intake Oral 660 ml IV Total 1838.2 ml Output Urine Total 2221 ml Stool Total 350 ml Drainage Total 300 ml PHYSICAL EXAM Physical Exam Alert, oriented Nasal wound covered with bandage Increased work of breathing - though somewhat improved from yesterday, crackles in bases Abd wounds covered with dressing, dehiscence, ostomy with output 2+ pitting edema bilateral lower extremities ASSESSMENT/PLAN Assessment/Plan Veevi-wx-[id number] respiratory failure requiring BIPAP intermittently Status post laparoscopic converted to open exploration for extensive lysis of adhesion, removal of old mesh, subtotal colectomy, small bowel resection and incisional hernia repair.Now with brown drainage from wound. entero-cutaneous fistula/ abscess Obesity Enterocutaneous fistula. Abdominal abscess. Ventral hernia, status post repair. Anemia Swelling LE Multiple wounds (nasal bridge from bipap, dehiscence of abdominal wound, etc.) Severe malnutrition Diabetes mellitus Elevated TSH - await T4, T3 Increased Levemir to 22U QHS. Follow up on goals of care with patient and son pending change in clinical status. Recommended DNR/DNI status given her desire to "not live on a machine". They will consider. No changes at this time. Palliative care following. Problems: COMMENT Lab Laboratory Tests Test 04/10/17 11:49 04/10/17 17:50 04/11/17 05:40 04/11/17 07:34 Glucose (Fingerstick) 189 mg/dL (70-99) 165 mg/dL (70-99) 191 mg/dL (70-99) White Blood Count 6.2 x10^3/uL (4.0-11.0) Red Blood Count 2.90 x10^6/uL (3.50-5.40) Hemoglobin 8.2 g/dL (12.0-15.5) Hematocrit 25.4 % (36.0-47.0) Mean Corpuscular Volume 88 fL (79-100) Mean Corpuscular Hemoglobin 28 pg (25-35) Mean Corpuscular Hemoglobin Concent 32 g/dL (31-37) Red Cell Distribution Width 17.5 % (11.5-14.5) Platelet Count 358 x10^3/uL (140-400) Neutrophils (%) (Auto) 82 % (31-73) Lymphocytes (%) (Auto) 10 % (24-48) Monocytes (%) (Auto) 8 % (0-9) Eosinophils (%) (Auto) 0 % (0-3) Basophils (%) (Auto) 0 % (0-3) Neutrophils # (Auto) 5.1 x10^3uL (1.8-7.7) Lymphocytes # (Auto) 0.6 x10^3/uL (1.0-4.8) Monocytes # (Auto) 0.5 x10^3/uL (0.0-1.1) Eosinophils # (Auto) 0.0 x10^3/uL (0.0-0.7) Basophils # (Auto) 0.0 x10^3/uL (0.0-0.2) Sodium Level 138 mmol/L (136-145) Potassium Level 3.7 mmol/L (3.5-5.1) Chloride Level 102 mmol/L (98-107) Carbon Dioxide Level 28 mmol/L (21-32) Anion Gap 8 (6-14) Blood Urea Nitrogen 23 mg/dL (7-20) Creatinine 0.7 mg/dL (0.6-1.0) Estimated GFR (Cockcroft-Gault) 82.5 Glucose Level 201 mg/dL (70-99) Calcium Level 8.0 mg/dL (8.5-10.1) STEPHON BLAND MD Apr 11, 2017 08:24
--- NOTE | 2017-04-11 08:32 | PDOC ---
PROGRESS NOTES Subjective Subjective HPI - f/u of Anemia ROS - feels better, off BIPAP Objective Objective Vital Signs Date Time Temp Pulse Resp B/P (MAP) Pulse Ox O2 Delivery O2 Flow Rate FiO2 04/11/17 07:15 99 BiPAP/CPAP 04/11/17 07:00 99.1 93 34 63/ 5.0 99.1 Intake and Output 04/11/17 07:00 Intake Total 2498.2 ml Output Total 2926 ml Balance -427.8 ml Intake Oral 660 ml IV Total 1838.2 ml Output Urine Total 2276 ml Stool Total 350 ml Drainage Total 300 ml Physical Exam General: Alert, No acute distress Psych/Mental Status: Mental status NL Assessment Assessment Problems Medical Problems: (1) Abdominal abscess Status: Acute (2) Abdominal pain Status: Acute A/P: 1. Thrombocytopenia.Resolved. Plt count 358. 2. Anemia. Most likely multifactorial. Iron studies are suggestive of anemia of chronic disease. /B12 normal. Hb 8.2 monitor and transfuse as needed. 3. Abscess. Management as per primary/surgery 4. Status post laparoscopic converted to open exploration for extensive lysis of adhesion, removal of old mesh, subtotal colectomy, small bowel resection and incisional hernia repair. 5. [id number] respiratory failure. Persistent dyspnea/ now off BIPAP - appreciate pulm f/u. Comment Review of Relevant I have reviewed the following items chito (where applicable) has been applied. Labs Laboratory Tests Test 04/09/17 08:55 04/09/17 21:41 04/10/17 05:20 04/10/17 07:22 O2 Saturation 94 % (92-99) Arterial Blood pH 7.47 (7.35-7.45) Arterial Blood pCO2 at Patient Temp 34 mmHg (35-46) Arterial Blood pO2 at Patient Temp 75 mmHg (65-108) Arterial Blood HCO3 25 mmol/L (21-28) Arterial Blood Base Excess 1 mmol/L (-3-3) FiO2 35 Glucose (Fingerstick) 191 mg/dL (70-99) 175 mg/dL (70-99) White Blood Count 7.2 x10^3/uL (4.0-11.0) Red Blood Count 2.74 x10^6/uL (3.50-5.40) Hemoglobin 7.8 g/dL (12.0-15.5) Hematocrit 23.8 % (36.0-47.0) Mean Corpuscular Volume 87 fL (79-100) Mean Corpuscular Hemoglobin 29 pg (25-35) Mean Corpuscular Hemoglobin Concent 33 g/dL (31-37) Red Cell Distribution Width 17.5 % (11.5-14.5) Platelet Count 344 x10^3/uL (140-400) Neutrophils (%) (Auto) 81 % (31-73) Lymphocytes (%) (Auto) 13 % (24-48) Monocytes (%) (Auto) 6 % (0-9) Eosinophils (%) (Auto) 0 % (0-3) Basophils (%) (Auto) 0 % (0-3) Neutrophils # (Auto) 5.8 x10^3uL (1.8-7.7) Lymphocytes # (Auto) 0.9 x10^3/uL (1.0-4.8) Monocytes # (Auto) 0.4 x10^3/uL (0.0-1.1) Eosinophils # (Auto) 0.0 x10^3/uL (0.0-0.7) Basophils # (Auto) 0.0 x10^3/uL (0.0-0.2) Sodium Level 138 mmol/L (136-145) Potassium Level 3.5 mmol/L (3.5-5.1) Chloride Level 102 mmol/L (98-107) Carbon Dioxide Level 30 mmol/L (21-32) Anion Gap 6 (6-14) Blood Urea Nitrogen 21 mg/dL (7-20) Creatinine 0.7 mg/dL (0.6-1.0) Estimated GFR (Cockcroft-Gault) 82.5 BUN/Creatinine Ratio 30 (6-20) Glucose Level 178 mg/dL (70-99) Calcium Level 7.8 mg/dL (8.5-10.1) Total Bilirubin 0.5 mg/dL (0.2-1.0) Aspartate Amino Transf (AST/SGOT) 15 U/L (15-37) Alanine Aminotransferase (ALT/SGPT) 11 U/L (14-59) Alkaline Phosphatase 85 U/L (46-116) Creatine Kinase 55 U/L (26-192) Total Protein 4.6 g/dL (6.4-8.2) Albumin 0.8 g/dL (3.4-5.0) Albumin/Globulin Ratio 0.2 (1.0-1.7) Thyroid Stimulating Hormone (TSH) 6.522 uIU/mL (0.358-3.74) Test 04/10/17 11:49 04/10/17 17:50 04/11/17 05:40 04/11/17 07:34 Glucose (Fingerstick) 189 mg/dL (70-99) 165 mg/dL (70-99) 191 mg/dL (70-99) White Blood Count 6.2 x10^3/uL (4.0-11.0) Red Blood Count 2.90 x10^6/uL (3.50-5.40) Hemoglobin 8.2 g/dL (12.0-15.5) Hematocrit 25.4 % (36.0-47.0) Mean Corpuscular Volume 88 fL (79-100) Mean Corpuscular Hemoglobin 28 pg (25-35) Mean Corpuscular Hemoglobin Concent 32 g/dL (31-37) Red Cell Distribution Width 17.5 % (11.5-14.5) Platelet Count 358 x10^3/uL (140-400) Neutrophils (%) (Auto) 82 % (31-73) Lymphocytes (%) (Auto) 10 % (24-48) Monocytes (%) (Auto) 8 % (0-9) Eosinophils (%) (Auto) 0 % (0-3) Basophils (%) (Auto) 0 % (0-3) Neutrophils # (Auto) 5.1 x10^3uL (1.8-7.7) Lymphocytes # (Auto) 0.6 x10^3/uL (1.0-4.8) Monocytes # (Auto) 0.5 x10^3/uL (0.0-1.1) Eosinophils # (Auto) 0.0 x10^3/uL (0.0-0.7) Basophils # (Auto) 0.0 x10^3/uL (0.0-0.2) Sodium Level 138 mmol/L (136-145) Potassium Level 3.7 mmol/L (3.5-5.1) Chloride Level 102 mmol/L (98-107) Carbon Dioxide Level 28 mmol/L (21-32) Anion Gap 8 (6-14) Blood Urea Nitrogen 23 mg/dL (7-20) Creatinine 0.7 mg/dL (0.6-1.0) Estimated GFR (Cockcroft-Gault) 82.5 Glucose Level 201 mg/dL (70-99) Calcium Level 8.0 mg/dL (8.5-10.1) Laboratory Tests Test 04/10/17 11:49 04/10/17 17:50 04/11/17 05:40 04/11/17 07:34 Glucose (Fingerstick) 189 mg/dL (70-99) 165 mg/dL (70-99) 191 mg/dL (70-99) White Blood Count 6.2 x10^3/uL (4.0-11.0) Red Blood Count 2.90 x10^6/uL (3.50-5.40) Hemoglobin 8.2 g/dL (12.0-15.5) Hematocrit 25.4 % (36.0-47.0) Mean Corpuscular Volume 88 fL (79-100) Mean Corpuscular Hemoglobin 28 pg (25-35) Mean Corpuscular Hemoglobin Concent 32 g/dL (31-37) Red Cell Distribution Width 17.5 % (11.5-14.5) Platelet Count 358 x10^3/uL (140-400) Neutrophils (%) (Auto) 82 % (31-73) Lymphocytes (%) (Auto) 10 % (24-48) Monocytes (%) (Auto) 8 % (0-9) Eosinophils (%) (Auto) 0 % (0-3) Basophils (%) (Auto) 0 % (0-3) Neutrophils # (Auto) 5.1 x10^3uL (1.8-7.7) Lymphocytes # (Auto) 0.6 x10^3/uL (1.0-4.8) Monocytes # (Auto) 0.5 x10^3/uL (0.0-1.1) Eosinophils # (Auto) 0.0 x10^3/uL (0.0-0.7) Basophils # (Auto) 0.0 x10^3/uL (0.0-0.2) Sodium Level 138 mmol/L (136-145) Potassium Level 3.7 mmol/L (3.5-5.1) Chloride Level 102 mmol/L (98-107) Carbon Dioxide Level 28 mmol/L (21-32) Anion Gap 8 (6-14) Blood Urea Nitrogen 23 mg/dL (7-20) Creatinine 0.7 mg/dL (0.6-1.0) Estimated GFR (Cockcroft-Gault) 82.5 Glucose Level 201 mg/dL (70-99) Calcium Level 8.0 mg/dL (8.5-10.1) Microbiology 04/07/17 Blood Culture - Preliminary, Resulted NO GROWTH AFTER 3 DAYS 04/06/17 Anaerobic/Aerobic Culture, Resulted Pending 04/06/17 Anaerobic Culture Result 1 (KULDEEP), Resulted Pending 04/06/17 Aerobic Culture - Final, Resulted 04/06/17 Aerobic Culture Result 1 (KULDEEP) - Final, Resulted 04/06/17 Aerobic Culture Result 2 (KULDEEP) - Final, Resulted 04/06/17 Aerobic Culture Result 3 (KULDEEP) - Final, Resulted 04/06/17 Antimicrobic Susceptibility - Final, Resulted 03/09/17 Urine Culture - Final, Complete 03/09/17 Urine Culture Result 1 (KULDEEP) - Final, Complete 03/12/17 Fungal Culture - Final, Complete 03/12/17 Fungal Culture Result 1 - Final, Complete Medications Current Medications Ondansetron HCl (Zofran) 4 mg 1X ONCE IV Last administered on 03/09/17 08:30 ; Start 03/09/17 at 08:15; Stop 03/09/17 at 08:16; Status DC Iohexol (Omnipaque 300 Mg/ml) 75 ml 1X ONCE IV Last administered on 03/09/17 08:50; Start 03/09/17 at 08:45; Stop 03/09/17 at 08:46; Status DC Info (Do NOT chart on this entry -- for MONITORING) 1 each PRN DAILY PRN MC SEE COMMENTS; Start 03/09/17 at 08:45; Stop 03/11/17 at 08:44; Status DC Ceftriaxone Sodium 50 ml @ 100 mls/hr 1X ONCE IV ; Start 03/09/17 at 09:30; Stop 03/09/17 at 09:55; Status DC Sodium Chloride 1,000 ml @ 1,000 mls/hr 1X ONCE IV Last administered on 09:55; Start 03/09/17 at 10:00; Stop 03/09/17 at 10:59; Status DC Ondansetron HCl (Zofran) 4 mg PRN Q8HRS PRN IV NAUSEA/VOMITING; Start 03/09/17 at 10:30; Stop 03/10/17 at 10:29; Status DC Meropenem 500 mg/ Sodium Chloride 50 ml @ 100 mls/hr Q8HRS IV Last administered on 03/16/17 06:09; Start 03/09/17 at 13:00; Stop 03/16/17 at 12: 59; Status DC Acetaminophen (Tylenol) 650 mg PRN QID PRN PO MILD PAIN / TEMP Last administered on 03/30/17 17:43; Start 03/09/17 at 20:30 Aspirin (Children'S Aspirin) 81 mg DAILY PO Last administered on 04/10/17 08: 01; Start 03/10/17 at 15:00 Clopidogrel Bisulfate (Plavix) 75 mg DAILY PO Last administered on 03/19/17 10:00; Start 03/10/17 at 15:00; Stop 03/22/17 at 09:10; Status DC Ferrous Sulfate (Feosol) 325 mg DAILY PO Last administered on 04/10/17 08:01; Start 03/10/17 at 15:00 Metoprolol Tartrate (Lopressor) 12.5 mg BID PO Last administered on 03/10/17 16:01; Start 03/10/17 at 15:00; Stop 03/10/17 at 21:01; Status DC Diclofenac Sodium (Voltaren) 75 mg DAILY PO Last administered on 03/23/17 09: 23; Start 03/10/17 at 14:30; Stop 03/29/17 at 10:50; Status DC Famotidine (Pepcid) 20 mg QHS PO Last administered on 03/24/17 21:20; Start 03/10/17 at 21:00; Stop 03/26/17 at 09:35; Status DC Glimepiride (Amaryl) 1 mg DAILY PO Last administered on 03/13/17 09:25; Start 03/11/17 at 15:00; Stop 03/13/17 at 17:02; Status DC Sodium Chloride 1,000 ml @ 100 mls/hr 1X ONCE IV Last administered on 21:00; Start 03/10/17 at 21:00; Stop 03/11/17 at 06:59; Status DC Lidocaine/Sodium Bicarbonate (Buffered Lidocaine 1%) 20 ml STK-MED ONCE IJ ; Start 03/12/17 at 13:05; Stop 03/12/17 at 13:06; Status DC Fentanyl Citrate (Fentanyl 2ml Vial) 100 mcg STK-MED ONCE .ROUTE ; Start at 13:20; Stop 03/12/17 at 13:21; Status DC Midazolam HCl (Versed) 2 mg STK-MED ONCE .ROUTE ; Start 03/12/17 at 13:20; Stop 03/12/17 at 13:21; Status DC Flumazenil (Romazicon) 0.5 mg STK-MED ONCE IV ; Start 03/12/17 at 13:20; Stop 03/12/17 at 13:21; Status DC Naloxone HCl (Narcan) 0.4 mg STK-MED ONCE .ROUTE ; Start 03/12/17 at 13:20; Stop 03/12/17 at 13:21; Status DC Lidocaine/Sodium Bicarbonate (Buffered Lidocaine 1%) 20 ml 1X ONCE IJ Last administered on 03/12/17 13:50; Start 03/12/17 at 13:30; Stop 03/12/17 at 13:33 ; Status DC Midazolam HCl (Versed) 2 mg 1X ONCE IV Last administered on 03/12/17 13:50; Start 03/12/17 at 13:30; Stop 03/12/17 at 13:33; Status DC Fentanyl Citrate (Fentanyl 2ml Vial) 100 mcg 1X ONCE IV Last administered on 03/12/17 13:50; Start 03/12/17 at 13:30; Stop 03/12/17 at 13:33; Status DC Lactobacillus Rhamnosus (Culturelle) 1 cap BID PO Last administered on 21:20; Start 03/12/17 at 21:00; Stop 03/25/17 at 21:06; Status DC Acetaminophen/ Hydrocodone Bitart (Lortab 7.5/325) 1 tab PRN Q6HRS PRN PO MODERATE - SEVERE PAIN Last administered on 04/11/17 03:50; Start 03/12/17 at 18:15 Ondansetron HCl (Zofran) 4 mg PRN Q6HRS PRN IV NAUSEA/VOMITING, 1ST CHOICE Last administered on 03/25/17 04:53; Start 03/13/17 at 09:00 Furosemide (Lasix) 40 mg QODAY PO Last administered on 03/22/17 09:39; Start 03/14/17 at 09:00; Stop 03/26/17 at 09:00; Status DC Glimepiride (Amaryl) 1 mg DAILY08 PO Last administered on 03/22/17 09:40; Start 03/14/17 at 08:00; Stop 03/23/17 at 08:52; Status DC Linezolid (Zyvox) 600 mg BID PO Last administered on 03/24/17 21:20; Start 03/14/17 at 13:15; Stop 03/25/17 at 10:49; Status DC Meropenem (Merrem) 500 mg Q8HRS IVP Last administered on 03/30/17 06:04; Start 03/16/17 at 14:00; Stop 03/30/17 at 07:49; Status DC Iohexol (Omnipaque 240 Mg/ml) 50 ml STK-MED ONCE .ROUTE ; Start 03/19/17 at 13: 11; Stop 03/19/17 at 13:12; Status DC Iohexol (Omnipaque 240 Mg/ml) 10 ml 1X ONCE IJ Last administered on 14:07; Start 03/19/17 at 14:00; Stop 03/19/17 at 14:01; Status DC Info (Do NOT chart on this entry -- for MONITORING) 1 each PRN DAILY PRN MC SEE COMMENTS; Start 03/19/17 at 14:00; Stop 03/21/17 at 13:59; Status DC Iohexol (Omnipaque 240 Mg/ml) 50 ml STK-MED ONCE .ROUTE ; Start 03/19/17 at 13: 55; Stop 03/19/17 at 13:56; Status DC Fluconazole (Diflucan) 200 mg DAILY PO Last administered on 03/23/17 09:24; Start 03/22/17 at 09:30; Stop 03/25/17 at 10:51; Status DC Metoprolol Succinate (Toprol Xl) 12.5 mg DAILY PO Last administered on 08:02; Start 03/23/17 at 09:00 Glimepiride (Amaryl) 0.5 mg DAILY08 PO ; Start 03/24/17 at 08:00; Stop at 13:05; Status DC Morphine Sulfate 1 mg PRN Q10MIN PRN IV SEVERE PAIN; Start 03/26/17 at 07:00; Stop 03/26/17 at 07:00; Status DC Ringer's Solution 1,000 ml @ 30 mls/hr Q24H IV ; Start 03/26/17 at 07:00; Stop 03/26/17 at 07:00; Status DC Lidocaine HCl (Xylocaine-Mpf 1% Vial) 2 ml PRN 1X PRN ID PRIOR TO IV START; Start 03/26/17 at 07:00; Stop 03/26/17 at 07:00; Status DC Hydromorphone HCl (Dilaudid) 0.5 mg PRN Q10MIN PRN IV SEV PAIN, Second choice; Start 03/26/17 at 07:00; Stop 03/27/17 at 06:59; Status Cancel Prochlorperazine Edisylate (Compazine) 5 mg PACU PRN PRN IV NAUSEA, MRX1 Last administered on 03/25/17 07:45; Start 03/26/17 at 07:00; Stop 03/26/17 at 07 :00; Status DC Morphine Sulfate 1 mg PRN Q10MIN PRN IV SEVERE PAIN; Start 03/24/17 at 07:45; Stop 03/25/17 at 07:44; Status DC Ringer's Solution 1,000 ml @ 30 mls/hr Q24H IV Last administered on 14:15; Start 03/24/17 at 07:32; Stop 03/24/17 at 19:31; Status DC Lidocaine HCl (Xylocaine-Mpf 1% Vial) 2 ml 1X PRN PRN ID IV START; Start 03/24 at 07:45; Stop 03/25/17 at 07:44; Status DC Hydromorphone HCl (Dilaudid) 0.5 mg PRN Q10MIN PRN IV SEV PAIN, Second choice; Start 03/24/17 at 07:45; Stop 03/25/17 at 07:44; Status DC Prochlorperazine Edisylate (Compazine) 5 mg PACU PRN PRN IV NAUSEA, MRX1; Start 03/24/17 at 07:45; Stop 03/25/17 at 07:44; Status DC Bupivacaine HCl/ Epinephrine Bitart (Sensorcain-Mpf Epi 0.5%-[id number]) 30 ml STK -MED ONCE .ROUTE Last administered on 03/24/17t 15:56; Start 03/24/17 at 10: 28; Stop 03/24/17 at 10:29; Status DC Neostigmine Methylsulfate (Bloxiverz) 10 mg STK-MED ONCE .ROUTE ; Start at 14:38; Stop 03/24/17 at 14:39; Status DC Rocuronium Greene (Zemuron) 50 mg STK-MED ONCE .ROUTE ; Start 03/24/17 at 14: 38; Stop 03/24/17 at 14:39; Status DC Fentanyl Citrate (Fentanyl 2ml Vial) 100 mcg STK-MED ONCE .ROUTE ; Start at 14:38; Stop 03/24/17 at 14:39; Status DC Phenylephrine HCl 1 mg STK-MED ONCE IV ; Start 03/24/17 at 14:40; Stop at 14:41; Status DC Lidocaine HCl (Lidocaine Pf 2% Vial) 5 ml STK-MED ONCE .ROUTE ; Start 03/24/17 at 14:40; Stop 03/24/17 at 14:41; Status DC Dexamethasone Sodium Phosphate (Decadron) 20 mg STK-MED ONCE .ROUTE ; Start at 14:40; Stop 03/24/17 at 14:41; Status DC Ondansetron HCl (Zofran) 4 mg STK-MED ONCE .ROUTE ; Start 03/24/17 at 14:40; Stop 03/24/17 at 14:41; Status DC Propofol 20 ml @ As Directed STK-MED ONCE IV ; Start 03/24/17 at 14:40; Stop 03/24/17 at 14:41; Status DC Glycopyrrolate (Robinul) 1 mg STK-MED ONCE .ROUTE ; Start 03/24/17 at 15:11; Stop 03/24/17 at 15:12; Status DC Rocuronium Greene (Zemuron) 50 mg STK-MED ONCE .ROUTE ; Start 03/24/17 at 15: 53; Stop 03/24/17 at 15:54; Status DC Fentanyl Citrate (Fentanyl 2ml Vial) 100 mcg STK-MED ONCE .ROUTE ; Start at 16:01; Stop 03/24/17 at 16:02; Status DC Morphine Sulfate 10 mg STK-MED ONCE .ROUTE ; Start 03/24/17 at 16:02; Stop at 16:03; Status DC Albumin Human 500 ml @ As Directed STK-MED ONCE IV ; Start 03/24/17 at 17:03; Stop 03/24/17 at 17:04; Status DC Phenylephrine HCl (Corky-Synephrine Inj) 10 mg STK-MED ONCE .ROUTE ; Start at 17:27; Stop 03/24/17 at 17:28; Status DC Rocuronium Greene (Zemuron) 100 mg STK-MED ONCE .ROUTE ; Start 03/24/17 at 17: 57; Stop 03/24/17 at 17:58; Status DC Enoxaparin Sodium (Lovenox 40mg Syringe) 40 mg Q24H SQ Last administered on 20:51; Start 03/24/17 at 20:45; Stop 03/26/17 at 19:34; Status DC Sodium Chloride (Normal Saline Flush) 3 ml QSHIFT PRN IV AFTER MEDS AND BLOOD DRAWS; Start 03/24/17 at 20:45 Ringer's Solution 1,000 ml @ 100 mls/hr Q10H IV Last administered on 12:32; Start 03/24/17 at 20:43; Stop 03/25/17 at 16:52; Status DC Naloxone HCl (Narcan) 0.4 mg PRN Q2MIN PRN IV SEE INSTRUCTIONS; Start at 20:45 Sodium Chloride 1,000 ml @ 25 mls/hr Q24H IV Last administered on 03/27/17 12:08; Start 03/24/17 at 20:43 Hydromorphone HCl 30 ml @ 0 mls/hr CONT PRN PRN IV PROTOCOL Last administered on 03/24/17 23:16; Start 03/24/17 at 20:45 Prochlorperazine Edisylate (Compazine) 5 mg PRN Q4HRS PRN IV NAUSEA/VOMITING, 2ND CHOICE; Start 03/25/17 at 07:45 Pantoprazole Sodium (PROTONIX VIAL for IV PUSH) 40 mg DAILYAC IVP Last administered on 04/10/17 08:03; Start 03/25/17 at 10:15 Linezolid 300 ml @ 300 mls/hr Q12HR IV Last administered on 03/26/17 20:54; Start 03/25/17 at 11:00; Stop 03/27/17 at 08:05; Status DC Fluconazole/ Sodium Chloride 100 ml @ 100 mls/hr Q24H IV Last administered on 04/07/17 11:52; Start 03/25/17 at 11:00; Stop 04/07/17 at 13:39; Status DC Dextrose/Lactated Ringer's 1,000 ml @ 75 mls/hr [id number] IV Last administered on 04/03/17 08:54; Start 03/25/17 at 17:00; Stop 04/04/17 at 09:23; Status DC Famotidine (Pepcid Vial) 40 mg QHS IVP Last administered on 03/28/17 21:35; Start 03/25/17 at 21:00; Stop 03/29/17 at 08:02; Status DC Lorazepam (Ativan) 0.5 mg 1X ONCE IV ; Start 03/26/17 at 07:00; Stop at 07:01; Status Cancel Lorazepam (Ativan) 0.5 mg PRN Q8HRS PRN PO ANXIETY / AGITATION; Start at 07:00; Status Cancel Furosemide (Lasix) 40 mg 1X ONCE IVP Last administered on 03/26/17 09:54; Start 03/26/17 at 09:00; Stop 03/26/17 at 09:01; Status DC Furosemide (Lasix) 20 mg DAILY IVP Last administered on 03/30/17 09:29; Start 03/27/17 at 09:00; Stop 03/31/17 at 12:22; Status DC Digoxin (Lanoxin) 250 mcg 1X ONCE IV Last administered on 03/26/17 15:06; Start 03/26/17 at 15:15; Stop 03/26/17 at 15:16; Status DC Iohexol (Omnipaque 300 Mg/ml) 75 ml 1X ONCE IV Last administered on 16:41; Start 03/26/17 at 16:45; Stop 03/26/17 at 16:46; Status DC Info (Do NOT chart on this entry -- for MONITORING) 1 each PRN DAILY PRN MC SEE COMMENTS; Start 03/26/17 at 16:45; Stop 03/28/17 at 16:44; Status DC Norepinephrine Bitartrate 250 ml @ As Directed STK-MED ONCE IV ; Start at 17:42; Stop 03/26/17 at 17:43; Status DC Norepinephrine Bitartrate 250 ml @ 0 mls/hr CONT PRN IV SEE I/O RECORD Last administered on 03/26/17 18:01; Start 03/26/17 at 18:00; Stop 04/04/17 at 09 :57; Status DC Enoxaparin Sodium (Lovenox Per Pharmacy Treatment Dosing) 1 each PRN DAILY PRN MC SEE COMMENTS; Start 03/26/17 at 19:30; Stop 03/28/17 at 12:38; Status DC Enoxaparin Sodium (Lovenox 80mg Syringe) 80 mg Q12HR SQ Last administered on 21:51; Start 03/26/17 at 20:00; Stop 03/28/17 at 15:36; Status DC Daptomycin 460 mg/ Sodium Chloride 50 ml @ 100 mls/hr Q24H IV Last administered on 04/10/17 09:18; Start 03/27/17 at 09:00 Digoxin (Lanoxin) 250 mcg 1X ONCE IV Last administered on 03/27/17 12:09; Start 03/27/17 at 12:00; Stop 03/27/17 at 12:01; Status DC Insulin Detemir (Levemir) 5 units QHS SQ Last administered on 04/04/17 21:30 ; Start 03/27/17 at 21:00; Stop 04/05/17 at 09:34; Status DC Albumin Human 100 ml @ 100 mls/hr Q8H IV Last administered on 03/29/17 00:42 ; Start 03/28/17 at 09:00; Stop 03/29/17 at 01:59; Status DC Lorazepam (Ativan) 1 mg PRN Q6HRS PRN PO ANXIETY / AGITATION Last administered on 04/07/17 05:43; Start 03/28/17 at 16:00; Stop 04/07/17 at 16:34; Status DC Iohexol (Omnipaque 300 Mg/ml) 75 ml 1X ONCE IV Last administered on 16:00; Start 03/28/17 at 16:00; Stop 03/28/17 at 16:02; Status DC Info (Do NOT chart on this entry -- for MONITORING) 1 each PRN DAILY PRN MC SEE COMMENTS; Start 03/28/17 at 16:15; Stop 03/30/17 at 16:14; Status DC Fentanyl Citrate (Fentanyl 2ml Vial) 50 mcg PRN Q4HRS PRN IV PAIN Last administered on 04/10/17 19:22; Start 03/29/17 at 09:45 Ciprofloxacin/ Dextrose 200 ml @ 200 mls/hr Q12HR IV Last administered on 08:58; Start 03/30/17 at 09:00; Stop 04/04/17 at 10:45; Status DC Lorazepam (Ativan) 0.5 mg Q12HR PO Last administered on 04/10/17 21:37; Start 03/30/17 at 21:00 Dopamine HCl/ Dextrose 250 ml @ 15.155 mls/ hr CONT PRN IV SEE I/O RECORD Last administered on 04/06/17 15:44; Start 03/31/17 at 13:00 Info 1 each PRN DAILY PRN MC SEE COMMENTS Last administered on 04/10/17 09:30 ; Start 04/03/17 at 12:15 Sodium Chloride 90 meq/Potassium Chloride 50 meq/ Potassium Phosphate 20.4 mmol/ Magnesium Sulfate 10 meq/ Calcium Gluconate 10 meq/ Multivitamins 10 ml/Chromium / Copper/Manganese/ Seleni/Zn 1 ml/ Total Parenteral Nutrition/Amino Acids/ Dextrose/ Fat Emulsion Intravenous 1,512 ml @ 63 mls/hr TPN CONT IV Last administered on 04/03/17 21:38; Start 04/03/17 at 22:00; Stop 04/04/17 at 21 :59; Status DC Levofloxacin/ Dextrose 100 ml @ 100 mls/hr Q24H IV Last administered on 21:47; Start 04/04/17 at 21:00; Stop 04/07/17 at 13:39; Status DC Furosemide (Lasix) 40 mg DAILY IVP Last administered on 04/10/17 08:02; Start 04/04/17 at 12:00 Sodium Chloride 90 meq/Potassium Chloride 50 meq/ Potassium Phosphate 20.4 mmol/ Magnesium Sulfate 16 meq/ Calcium Gluconate 10 meq/ Multivitamins 10 ml/Chromium / Copper/Manganese/ Seleni/Zn 1 ml/ Total Parenteral Nutrition/Amino Acids/ Dextrose/ Fat Emulsion Intravenous 1,512 ml @ 63 mls/hr TPN CONT IV Last administered on 04/04/17 21:16; Start 04/04/17 at 22:00; Stop 04/05/17 at 21 :59; Status DC Insulin Detemir (Levemir) 20 units QHS SQ Last administered on 04/10/17 21:39 ; Start 04/05/17 at 21:00; Stop 04/11/17 at 08:11; Status DC Insulin Detemir (Levemir) 10 units 1X ONCE SQ Last administered on 04/05/17 14:12; Start 04/05/17 at 09:45; Stop 04/05/17 at 09:46; Status DC Sodium Chloride 90 meq/Potassium Chloride 50 meq/ Potassium Phosphate 20.4 mmol/ Magnesium Sulfate 24 meq/ Calcium Gluconate 10 meq/ Multivitamins 10 ml/Chromium / Copper/Manganese/ Seleni/Zn 1 ml/ Total Parenteral Nutrition/Amino Acids/ Dextrose/ Fat Emulsion Intravenous 1,512 ml @ 63 mls/hr TPN CONT IV Last administered on 04/05/17 20:55; Start 04/05/17 at 22:00; Stop 04/06/17 at 21: 59; Status DC Iohexol (Omnipaque 300 Mg/ml) 75 ml 1X ONCE IV ; Start 04/05/17 at 13:00; Stop 04/05/17 at 13:01; Status DC Iohexol (Omnipaque 240 Mg/ml) 30 ml 1X ONCE PO ; Start 04/05/17 at 13:00; Stop 04/05/17 at 13:01; Status DC Info (Do NOT chart on this entry -- for MONITORING) 1 each PRN DAILY PRN MC SEE COMMENTS; Start 04/05/17 at 13:00; Stop 04/07/17 at 12:59; Status DC Sodium Chloride 90 meq/Potassium Chloride 50 meq/ Potassium Phosphate 20.4 mmol/ Magnesium Sulfate 24 meq/ Calcium Gluconate 10 meq/ Multivitamins 10 ml/Chromium / Copper/Manganese/ Seleni/Zn 1 ml/ Total Parenteral Nutrition/Amino Acids/ Dextrose/ Fat Emulsion Intravenous 1,512 ml @ 63 mls/hr TPN CONT IV Last administered on 04/06/17t 21:45; Start 04/06/17 at 22:00; Stop 04/07/17 at 21:59 ; Status DC Lidocaine/Sodium Bicarbonate (Buffered Lidocaine 1%) 20 ml STK-MED ONCE IJ ; Start 04/06/17 at 14:28; Stop 04/06/17 at 14:29; Status DC Fentanyl Citrate (Fentanyl 2ml Vial) 100 mcg STK-MED ONCE .ROUTE ; Start at 14:45; Stop 04/06/17 at 14:46; Status DC Midazolam HCl (Versed) 2 mg STK-MED ONCE .ROUTE ; Start 04/06/17 at 14:45; Stop 04/06/17 at 14:46; Status DC Flumazenil (Romazicon) 0.5 mg STK-MED ONCE IV ; Start 04/06/17 at 14:45; Stop 04/06/17 at 14:46; Status DC Naloxone HCl (Narcan) 0.4 mg STK-MED ONCE .ROUTE ; Start 04/06/17 at 14:45; Stop 04/06/17 at 14:46; Status DC Dopamine HCl/ Dextrose 250 ml @ As Directed STK-MED ONCE IV ; Start 04/06/17 at 14:50; Stop 04/06/17 at 14:51; Status DC Lidocaine/Sodium Bicarbonate (Buffered Lidocaine 1%) 7 ml 1X ONCE IJ Last administered on 04/06/17t 15:20; Start 04/06/17 at 15:30; Stop 04/06/17 at 15:31 ; Status DC Sodium Chloride 90 meq/Potassium Chloride 50 meq/ Potassium Phosphate 13.6 mmol/ Magnesium Sulfate 20 meq/ Calcium Gluconate 10 meq/ Multivitamins 10 ml/Chromium / Copper/Manganese/ Seleni/Zn 1 ml/ Total Parenteral Nutrition/Amino Acids/ Dextrose/ Fat Emulsion Intravenous 1,512 ml @ 63 mls/hr TPN CONT IV Last administered on 04/07/17 21:19; Start 04/07/17 at 22:00; Stop 04/08/17 at 21:59 ; Status DC Micafungin Sodium 100 mg/Sodium Chloride 100 ml @ 100 mls/hr Q24H IV Last administered on 04/10/17 16:15; Start 04/07/17 at 14:00 Metronidazole 100 ml @ 100 mls/hr Q8HRS IV Last administered on 04/11/17 05: 35; Start 04/07/17 at 14:00 Cefepime HCl 1 gm/ Dextrose 50 ml @ 100 mls/hr Q8HRS IV ; Start 04/07/17 at 14: 00; Status UNV Cefepime HCl (Maxipime) 1 gm Q8HRS IVP Last administered on 04/11/17 05:35; Start 04/07/17 at 14:00 Sodium Chloride 90 meq/Potassium Chloride 50 meq/ Potassium Phosphate 13.6 mmol/ Magnesium Sulfate 20 meq/ Calcium Gluconate 10 meq/ Multivitamins 10 ml/Chromium / Copper/Manganese/ Seleni/Zn 1 ml/ Total Parenteral Nutrition/Amino Acids/ Dextrose/ Fat Emulsion Intravenous 1,512 ml @ 63 mls/hr TPN CONT IV Last administered on 04/08/17 21:23; Start 04/08/17 at 22:00; Stop 04/09/17 at 21:59 ; Status DC Furosemide (Lasix) 40 mg 1X ONCE IVP Last administered on 04/09/17 10:03; Start 04/09/17 at 08:15; Stop 04/09/17 at 08:16; Status DC Sodium Chloride 90 meq/Potassium Chloride 50 meq/ Potassium Phosphate 13.6 mmol/ Magnesium Sulfate 20 meq/ Calcium Gluconate 10 meq/ Multivitamins 10 ml/Chromium / Copper/Manganese/ Seleni/Zn 1 ml/ Total Parenteral Nutrition/Amino Acids/ Dextrose/ Fat Emulsion Intravenous 1,512 ml @ 63 mls/hr TPN CONT IV Last administered on 04/09/17 21:52; Start 04/09/17 at 22:00; Stop 04/10/17 at 21:59 ; Status DC Sodium Chloride 90 meq/Potassium Chloride 60 meq/ Potassium Phosphate 13.6 mmol/ Magnesium Sulfate 20 meq/ Calcium Gluconate 10 meq/ Multivitamins 10 ml/Chromium / Copper/Manganese/ Seleni/Zn 1 ml/ Total Parenteral Nutrition/Amino Acids/ Dextrose/ Fat Emulsion Intravenous 1,512 ml @ 63 mls/hr TPN CONT IV Last administered on 04/10/17t 21:37; Start 04/10/17 at 22:00; Stop 04/11/17 at 21:59 Insulin Detemir (Levemir) 22 units QHS SQ ; Start 04/11/17 at 21:00 Active Scripts Active Reported Flagyl (Metronidazole) 500 Mg Tablet 1 Tab PO BID Cefpodoxime Proxetil 200 Mg Tablet 1 Tab PO BID Ferrous Sulfate 325 Mg Tablet 1 Tab PO DAILY Lasix (Furosemide) 40 Mg Tablet 40 Mg PO QODAY Potassium Chloride 10 Meq Capsule.er 10 Meq PO QODAY Metoprolol Tartrate 25 Mg Tablet 12.5 Mg PO BID Atorvastatin Calcium 40 Mg Tablet 40 Mg PO HS Clopidogrel (Clopidogrel Bisulfate) 75 Mg Tablet 1 Tab PO DAILY Diclofenac Sodium 75 Mg Tablet.dr 75 Mg PO DAILY Ranitidine Hcl 150 Mg Tablet 1 Tab PO BID Aspirin 81 Mg Tab.chew 1 Tab PO DAILY Vitals/I & O Vital Sign - Last 24 Hours 04/10/17 04/10/17 04/10/17 04/10/17 09:00 10:26 11:45 12:00 Temp 98.1 98.1 Pulse 88 86 86 Resp 42 37 38 B/P (MAP) 98/58 (71) 101/52 (68) 89/50 (63) Pulse Ox 97 98 98 O2 Delivery Nasal Cannula Nasal Cannula Nasal Cannula Nasal Cannula O2 Flow Rate 5.0 8.0 5.0 5.0 04/10/17 04/10/17 04/10/17 04/10/17 12:14 13:17 14:30 15:28 Pulse 85 90 88 Resp 36 34 41 B/P (MAP) 92/51 (65) 96/56 (69) 95/55 (68) Pulse Ox 95 99 99 99 O2 Delivery Nasal Cannula Nasal Cannula BiPAP/CPAP Nasal Cannula O2 Flow Rate 5.0 5.0 4.0 5.0 04/10/17 04/10/17 04/10/175/17 15:33 16:25 16:27 16:30 Temp 99.0 99.0 Pulse 90 85 Resp 40 38 B/P (MAP) 110/52 (71) 99/45 (63) Pulse Ox 96 97 O2 Delivery Nasal Cannula Bi-pap BiPAP/CPAP O2 Flow Rate 5.0 5.0 5.0 04/10/17 04/10/17 04/10/17 04/10/17 17:00 18:07 19:00 19:22 Pulse 88 90 92 Resp 41 40 34 40 B/P (MAP) 79/51 (60) 122/67 (85) 100/55 (70) Pulse Ox 98 97 97 97 O2 Delivery BiPAP/CPAP Nasal Cannula BiPAP/CPAP Nasal Cannula O2 Flow Rate 5.0 5.0 04/10/17 04/10/17 04/10/17 04/10/17 19:52 20:00 20:00 20:06 Temp 98.4 98.4 Pulse 86 Resp 30 35 B/P (MAP) 93/61 (72) Pulse Ox 100 99 100 O2 Delivery BiPAP/CPAP BiPAP/CPAP Bi-pap BiPAP/CPAP 04/10/17 04/10/17 04/10/17 04/10/17 21:00 21:37 22:00 23:00 Pulse 88 94 88 Resp 36 30 31 32 B/P (MAP) 102/57 (72) 94/57 (69) 101/58 (72) Pulse Ox 100 99 99 98 O2 Delivery BiPAP/CPAP BiPAP/CPAP BiPAP/CPAP BiPAP/CPAP 04/10/17 04/10/17 04/11/17 04/11/17 23:11 23:53 00:00 00:48 Temp 98.6 98.6 Pulse 87 Resp 30 B/P (MAP) 104/62 (76) Pulse Ox 98 98 100 O2 Delivery BiPAP/CPAP Bi-pap BiPAP/CPAP BiPAP/CPAP 04/11/17 04/11/17 04/11/17 04/11/17 01:00 02:00 03:00 03:15 Pulse 86 88 97 Resp 26 34 40 B/P (MAP) 102/60 (74) 111/63 (79) 110/63 (79) Pulse Ox 100 100 97 100 O2 Delivery BiPAP/CPAP BiPAP/CPAP BiPAP/CPAP BiPAP/CPAP 04/11/17 04/11/17 04/11/17 04/11/17 03:50 04:00 04:00 04:50 Temp 99.3 99.3 Pulse 98 Resp 33 35 33 B/P (MAP) 100/59 (73) Pulse Ox 98 97 98 O2 Delivery BiPAP/CPAP Bi-pap BiPAP/CPAP BiPAP/CPAP 04/11/17 04/11/17 04/11/17 04/11/17 05:00 05:29 06:00 07:00 Temp 99.1 99.1 Pulse 91 91 93 Resp 31 34 34 B/P (MAP) 97/57 (70) 100/58 (72) 63/ Pulse Ox 98 99 98 99 O2 Delivery BiPAP/CPAP BiPAP/CPAP BiPAP/CPAP Nasal Cannula O2 Flow Rate 5.0 04/11/17 07:15 Pulse Ox 99 O2 Delivery BiPAP/CPAP Intake and Output 04/10/17 04/10/17 04/11/17 15:00 23:00 07:00 Intake Total 420 ml 1298.2 ml 780 ml Output Total 1450 ml 1087 ml 389 ml Balance -1030 ml 211.2 ml 391 ml DANNY MEZA MD Apr 11, 2017 08:32
[2017-04-11 08:53] LABS: FREE T4 0.97 ng/dL (0.76-1.46)
[2017-04-11] MEDS: ENOXAPARIN 40 MG/0.4 ML SYRINGE. SQ SCH (09:00)
[2017-04-11] MEDS: FUROSEMIDE 40 MG/4 ML VIAL. IVP SCH (09:41)
[2017-04-11] MEDS: NORMAL SALINE IV SCH (09:41)
[2017-04-11] MEDS: DAPTOMYCIN IV SCH (09:41)
[2017-04-11] MEDS: LORazepam 0.5 MG TABLET PO SCH ×2 (09:42→22:00)
[2017-04-11] MEDS: PANTOPRAZOLE IV PUSH 40 MG VIAL. IVP SCH (09:42)
[2017-04-11] MEDS: FERROUS SULFATE 325 MG TABLET. PO SCH (09:42)
[2017-04-11] MEDS: ASPIRIN CHEWABLE 81 MG TABLET. PO SCH (09:42)
[2017-04-11] MEDS: METOPROLOL SUCC 24HR ER 25 MG TAB.ER.24H. PO SCH (09:43)
--- NOTE | 2017-04-11 12:43 | PDOC ---
SURGICAL PROGRESS NOTE Subjective Pt awake on bipap, denies complaints Vital Signs Vital Signs Date Time Temp Pulse Resp B/P (MAP) Pulse Ox O2 Delivery O2 Flow Rate FiO2 04/11/17 11:27 99 BiPAP/CPAP 04/11/17 10:00 100 44 107/63 (78) 04/11/17 08:02 5.0 04/11/17 07:00 99.1 99.1 I&O Intake and Output 04/11/17 07:00 Intake Total 2498.2 ml Output Total 2926 ml Balance -427.8 ml Intake Oral 660 ml IV Total 1838.2 ml Output Urine Total 2276 ml Stool Total 350 ml Drainage Total 300 ml General: Alert, Cooperative, No acute distress Abdomen: Soft, No tenderness, Other (dressing c/d/i, ostomy fxn) Labs Laboratory Tests Test 04/09/17 21:41 04/10/17 05:20 04/10/17 07:22 04/10/17 11:49 Glucose (Fingerstick) 191 mg/dL (70-99) 175 mg/dL (70-99) 189 mg/dL (70-99) White Blood Count 7.2 x10^3/uL (4.0-11.0) Red Blood Count 2.74 x10^6/uL (3.50-5.40) Hemoglobin 7.8 g/dL (12.0-15.5) Hematocrit 23.8 % (36.0-47.0) Mean Corpuscular Volume 87 fL (79-100) Mean Corpuscular Hemoglobin 29 pg (25-35) Mean Corpuscular Hemoglobin Concent 33 g/dL (31-37) Red Cell Distribution Width 17.5 % (11.5-14.5) Platelet Count 344 x10^3/uL (140-400) Neutrophils (%) (Auto) 81 % (31-73) Lymphocytes (%) (Auto) 13 % (24-48) Monocytes (%) (Auto) 6 % (0-9) Eosinophils (%) (Auto) 0 % (0-3) Basophils (%) (Auto) 0 % (0-3) Neutrophils # (Auto) 5.8 x10^3uL (1.8-7.7) Lymphocytes # (Auto) 0.9 x10^3/uL (1.0-4.8) Monocytes # (Auto) 0.4 x10^3/uL (0.0-1.1) Eosinophils # (Auto) 0.0 x10^3/uL (0.0-0.7) Basophils # (Auto) 0.0 x10^3/uL (0.0-0.2) Sodium Level 138 mmol/L (136-145) Potassium Level 3.5 mmol/L (3.5-5.1) Chloride Level 102 mmol/L (98-107) Carbon Dioxide Level 30 mmol/L (21-32) Anion Gap 6 (6-14) Blood Urea Nitrogen 21 mg/dL (7-20) Creatinine 0.7 mg/dL (0.6-1.0) Estimated GFR (Cockcroft-Gault) 82.5 BUN/Creatinine Ratio 30 (6-20) Glucose Level 178 mg/dL (70-99) Calcium Level 7.8 mg/dL (8.5-10.1) Total Bilirubin 0.5 mg/dL (0.2-1.0) Aspartate Amino Transf (AST/SGOT) 15 U/L (15-37) Alanine Aminotransferase (ALT/SGPT) 11 U/L (14-59) Alkaline Phosphatase 85 U/L (46-116) Creatine Kinase 55 U/L (26-192) Total Protein 4.6 g/dL (6.4-8.2) Albumin 0.8 g/dL (3.4-5.0) Albumin/Globulin Ratio 0.2 (1.0-1.7) Thyroid Stimulating Hormone (TSH) 6.522 uIU/mL (0.358-3.74) Test 04/10/17 17:50 04/11/17 05:40 04/11/17 07:34 04/11/17 11:10 Glucose (Fingerstick) 165 mg/dL (70-99) 191 mg/dL (70-99) 187 mg/dL (70-99) White Blood Count 6.2 x10^3/uL (4.0-11.0) Red Blood Count 2.90 x10^6/uL (3.50-5.40) Hemoglobin 8.2 g/dL (12.0-15.5) Hematocrit 25.4 % (36.0-47.0) Mean Corpuscular Volume 88 fL (79-100) Mean Corpuscular Hemoglobin 28 pg (25-35) Mean Corpuscular Hemoglobin Concent 32 g/dL (31-37) Red Cell Distribution Width 17.5 % (11.5-14.5) Platelet Count 358 x10^3/uL (140-400) Neutrophils (%) (Auto) 82 % (31-73) Lymphocytes (%) (Auto) 10 % (24-48) Monocytes (%) (Auto) 8 % (0-9) Eosinophils (%) (Auto) 0 % (0-3) Basophils (%) (Auto) 0 % (0-3) Neutrophils # (Auto) 5.1 x10^3uL (1.8-7.7) Lymphocytes # (Auto) 0.6 x10^3/uL (1.0-4.8) Monocytes # (Auto) 0.5 x10^3/uL (0.0-1.1) Eosinophils # (Auto) 0.0 x10^3/uL (0.0-0.7) Basophils # (Auto) 0.0 x10^3/uL (0.0-0.2) Sodium Level 138 mmol/L (136-145) Potassium Level 3.7 mmol/L (3.5-5.1) Chloride Level 102 mmol/L (98-107) Carbon Dioxide Level 28 mmol/L (21-32) Anion Gap 8 (6-14) Blood Urea Nitrogen 23 mg/dL (7-20) Creatinine 0.7 mg/dL (0.6-1.0) Estimated GFR (Cockcroft-Gault) 82.5 Glucose Level 201 mg/dL (70-99) Calcium Level 8.0 mg/dL (8.5-10.1) Free Thyroxine 0.97 ng/dL (0.76-1.46) Free Triiodothyronine (T3) pg/mL 0.93 pg/mL (2.18-3.98) Laboratory Tests Test 04/10/17 17:50 04/11/17 05:40 04/11/17 07:34 04/11/17 11:10 Glucose (Fingerstick) 165 mg/dL (70-99) 191 mg/dL (70-99) 187 mg/dL (70-99) White Blood Count 6.2 x10^3/uL (4.0-11.0) Red Blood Count 2.90 x10^6/uL (3.50-5.40) Hemoglobin 8.2 g/dL (12.0-15.5) Hematocrit 25.4 % (36.0-47.0) Mean Corpuscular Volume 88 fL (79-100) Mean Corpuscular Hemoglobin 28 pg (25-35) Mean Corpuscular Hemoglobin Concent 32 g/dL (31-37) Red Cell Distribution Width 17.5 % (11.5-14.5) Platelet Count 358 x10^3/uL (140-400) Neutrophils (%) (Auto) 82 % (31-73) Lymphocytes (%) (Auto) 10 % (24-48) Monocytes (%) (Auto) 8 % (0-9) Eosinophils (%) (Auto) 0 % (0-3) Basophils (%) (Auto) 0 % (0-3) Neutrophils # (Auto) 5.1 x10^3uL (1.8-7.7) Lymphocytes # (Auto) 0.6 x10^3/uL (1.0-4.8) Monocytes # (Auto) 0.5 x10^3/uL (0.0-1.1) Eosinophils # (Auto) 0.0 x10^3/uL (0.0-0.7) Basophils # (Auto) 0.0 x10^3/uL (0.0-0.2) Sodium Level 138 mmol/L (136-145) Potassium Level 3.7 mmol/L (3.5-5.1) Chloride Level 102 mmol/L (98-107) Carbon Dioxide Level 28 mmol/L (21-32) Anion Gap 8 (6-14) Blood Urea Nitrogen 23 mg/dL (7-20) Creatinine 0.7 mg/dL (0.6-1.0) Estimated GFR (Cockcroft-Gault) 82.5 Glucose Level 201 mg/dL (70-99) Calcium Level 8.0 mg/dL (8.5-10.1) Free Thyroxine 0.97 ng/dL (0.76-1.46) Free Triiodothyronine (T3) pg/mL 0.93 pg/mL (2.18-3.98) Problem List Problems Medical Problems: (1) Abdominal abscess Status: Acute (2) Abdominal pain Status: Acute Assessment/Plan s/p xlap cont supportive care Problems: LI HAMMOND MD Apr 11, 2017 12:43
[2017-04-11] MEDS: TPN PER PHARMACY MC PRN (12:53)
[2017-04-11] MEDS: MICAFUNGIN 100 MG in IV NORMAL SALINE 100ML 100 ML IV SCH (13:44)
--- NOTE | 2017-04-11 14:36 | PDOC ---
PULMONARY PROGRESS NOTES Subjective PT TRANSFERRED OT ICU 04/09 NOW BIPAP FEELS BETTER Vitals Vital Signs Date Time Temp Pulse Resp B/P (MAP) Pulse Ox O2 Delivery O2 Flow Rate FiO2 04/11/17 13:46 98 BiPAP/CPAP 04/11/17 12:00 5.0 04/11/17 11:00 106 41 87/62 (70) 04/11/17 07:00 99.1 99.1 General: Alert Lungs: Clear Cardiovascular: S1, S2 Abdomen: Soft, Other (continues to have drainage from the abdo wound,lower incision site,brownish fluid) Neuro Exam: Alert Extremities: Other (1+edema) Skin: Warm Labs Laboratory Tests Test 04/09/17 21:41 04/10/17 05:20 04/10/17 07:22 04/10/17 11:49 Glucose (Fingerstick) 191 mg/dL (70-99) 175 mg/dL (70-99) 189 mg/dL (70-99) White Blood Count 7.2 x10^3/uL (4.0-11.0) Red Blood Count 2.74 x10^6/uL (3.50-5.40) Hemoglobin 7.8 g/dL (12.0-15.5) Hematocrit 23.8 % (36.0-47.0) Mean Corpuscular Volume 87 fL (79-100) Mean Corpuscular Hemoglobin 29 pg (25-35) Mean Corpuscular Hemoglobin Concent 33 g/dL (31-37) Red Cell Distribution Width 17.5 % (11.5-14.5) Platelet Count 344 x10^3/uL (140-400) Neutrophils (%) (Auto) 81 % (31-73) Lymphocytes (%) (Auto) 13 % (24-48) Monocytes (%) (Auto) 6 % (0-9) Eosinophils (%) (Auto) 0 % (0-3) Basophils (%) (Auto) 0 % (0-3) Neutrophils # (Auto) 5.8 x10^3uL (1.8-7.7) Lymphocytes # (Auto) 0.9 x10^3/uL (1.0-4.8) Monocytes # (Auto) 0.4 x10^3/uL (0.0-1.1) Eosinophils # (Auto) 0.0 x10^3/uL (0.0-0.7) Basophils # (Auto) 0.0 x10^3/uL (0.0-0.2) Sodium Level 138 mmol/L (136-145) Potassium Level 3.5 mmol/L (3.5-5.1) Chloride Level 102 mmol/L (98-107) Carbon Dioxide Level 30 mmol/L (21-32) Anion Gap 6 (6-14) Blood Urea Nitrogen 21 mg/dL (7-20) Creatinine 0.7 mg/dL (0.6-1.0) Estimated GFR (Cockcroft-Gault) 82.5 BUN/Creatinine Ratio 30 (6-20) Glucose Level 178 mg/dL (70-99) Calcium Level 7.8 mg/dL (8.5-10.1) Total Bilirubin 0.5 mg/dL (0.2-1.0) Aspartate Amino Transf (AST/SGOT) 15 U/L (15-37) Alanine Aminotransferase (ALT/SGPT) 11 U/L (14-59) Alkaline Phosphatase 85 U/L (46-116) Creatine Kinase 55 U/L (26-192) Total Protein 4.6 g/dL (6.4-8.2) Albumin 0.8 g/dL (3.4-5.0) Albumin/Globulin Ratio 0.2 (1.0-1.7) Thyroid Stimulating Hormone (TSH) 6.522 uIU/mL (0.358-3.74) Test 04/10/17 17:50 04/11/17 05:40 04/11/17 07:34 04/11/17 11:10 Glucose (Fingerstick) 165 mg/dL (70-99) 191 mg/dL (70-99) 187 mg/dL (70-99) White Blood Count 6.2 x10^3/uL (4.0-11.0) Red Blood Count 2.90 x10^6/uL (3.50-5.40) Hemoglobin 8.2 g/dL (12.0-15.5) Hematocrit 25.4 % (36.0-47.0) Mean Corpuscular Volume 88 fL (79-100) Mean Corpuscular Hemoglobin 28 pg (25-35) Mean Corpuscular Hemoglobin Concent 32 g/dL (31-37) Red Cell Distribution Width 17.5 % (11.5-14.5) Platelet Count 358 x10^3/uL (140-400) Neutrophils (%) (Auto) 82 % (31-73) Lymphocytes (%) (Auto) 10 % (24-48) Monocytes (%) (Auto) 8 % (0-9) Eosinophils (%) (Auto) 0 % (0-3) Basophils (%) (Auto) 0 % (0-3) Neutrophils # (Auto) 5.1 x10^3uL (1.8-7.7) Lymphocytes # (Auto) 0.6 x10^3/uL (1.0-4.8) Monocytes # (Auto) 0.5 x10^3/uL (0.0-1.1) Eosinophils # (Auto) 0.0 x10^3/uL (0.0-0.7) Basophils # (Auto) 0.0 x10^3/uL (0.0-0.2) Sodium Level 138 mmol/L (136-145) Potassium Level 3.7 mmol/L (3.5-5.1) Chloride Level 102 mmol/L (98-107) Carbon Dioxide Level 28 mmol/L (21-32) Anion Gap 8 (6-14) Blood Urea Nitrogen 23 mg/dL (7-20) Creatinine 0.7 mg/dL (0.6-1.0) Estimated GFR (Cockcroft-Gault) 82.5 Glucose Level 201 mg/dL (70-99) Calcium Level 8.0 mg/dL (8.5-10.1) Free Thyroxine 0.97 ng/dL (0.76-1.46) Free Triiodothyronine (T3) pg/mL 0.93 pg/mL (2.18-3.98) Laboratory Tests Test 04/10/17 17:50 04/11/17 05:40 04/11/17 07:34 04/11/17 11:10 Glucose (Fingerstick) 165 mg/dL (70-99) 191 mg/dL (70-99) 187 mg/dL (70-99) White Blood Count 6.2 x10^3/uL (4.0-11.0) Red Blood Count 2.90 x10^6/uL (3.50-5.40) Hemoglobin 8.2 g/dL (12.0-15.5) Hematocrit 25.4 % (36.0-47.0) Mean Corpuscular Volume 88 fL (79-100) Mean Corpuscular Hemoglobin 28 pg (25-35) Mean Corpuscular Hemoglobin Concent 32 g/dL (31-37) Red Cell Distribution Width 17.5 % (11.5-14.5) Platelet Count 358 x10^3/uL (140-400) Neutrophils (%) (Auto) 82 % (31-73) Lymphocytes (%) (Auto) 10 % (24-48) Monocytes (%) (Auto) 8 % (0-9) Eosinophils (%) (Auto) 0 % (0-3) Basophils (%) (Auto) 0 % (0-3) Neutrophils # (Auto) 5.1 x10^3uL (1.8-7.7) Lymphocytes # (Auto) 0.6 x10^3/uL (1.0-4.8) Monocytes # (Auto) 0.5 x10^3/uL (0.0-1.1) Eosinophils # (Auto) 0.0 x10^3/uL (0.0-0.7) Basophils # (Auto) 0.0 x10^3/uL (0.0-0.2) Sodium Level 138 mmol/L (136-145) Potassium Level 3.7 mmol/L (3.5-5.1) Chloride Level 102 mmol/L (98-107) Carbon Dioxide Level 28 mmol/L (21-32) Anion Gap 8 (6-14) Blood Urea Nitrogen 23 mg/dL (7-20) Creatinine 0.7 mg/dL (0.6-1.0) Estimated GFR (Cockcroft-Gault) 82.5 Glucose Level 201 mg/dL (70-99) Calcium Level 8.0 mg/dL (8.5-10.1) Free Thyroxine 0.97 ng/dL (0.76-1.46) Free Triiodothyronine (T3) pg/mL 0.93 pg/mL (2.18-3.98) Medications Active Scripts Medications Dose Route/Sig Max Daily Dose Days Date Category Flagyl (Metronidazole) 500 Mg Tablet 1 Tab PO BID 03/01/17 Reported Cefpodoxime Proxetil 200 Mg Tablet 1 Tab PO BID 03/01/17 Reported Ferrous Sulfate 325 Mg Tablet 1 Tab PO DAILY 02/23/17 Reported Lasix (Furosemide) 40 Mg Tablet 40 Mg PO QODAY 02/23/17 Reported Potassium Chloride 10 Meq Capsule.er 10 Meq PO QODAY 02/23/17 Reported Metoprolol Tartrate 25 Mg Tablet 12.5 Mg PO BID 01/31/17 Reported Atorvastatin Calcium 40 Mg Tablet 40 Mg PO HS 01/31/17 Reported Clopidogrel (Clopidogrel Bisulfate) 75 Mg Tablet 1 Tab PO DAILY 08/24/15 Reported Diclofenac Sodium 75 Mg Tablet.dr 75 Mg PO DAILY 12/21/14 Reported Ranitidine Hcl 150 Mg Tablet 1 Tab PO BID 12/21/14 Reported Aspirin 81 Mg Tab.chew 1 Tab PO DAILY 04/15/14 Reported Impression . 1. Yrlva-vh-odhtxvo respiratory failure, expected status post surgical intervention. SUBJECTIVE dyspnea/ Comfortable on BIPAP. suspect due to abdominal process 2. Status post laparoscopic converted to open exploration for extensive lysis of adhesion, removal of old mesh, subtotal colectomy, small bowel resection and incisional hernia repair.Now with brown drainage from wound. entero-cutaneous fistula/ abscess 3. Obesity, body mass index of 35. 4. Leukocytosis. 5. Enterocutaneous fistula. Abdominal abscess, measuring 6.4 x 4.9 cm. s/p drain 03/12. Klebsiella ( R to Zosyn, S Cipro/Levo), VRE (R PCN) and PSAE ( R to ticarcillin only otherwise sensitive, S Cipro/Levo) and C tropicalis -h/o Strep anginosis and Bacteroides 6. Fever. 7. Abdominal abscess. 8. Ventral hernia, status post repair. 9. Bilateral effusions due to low oncotic pressure/ repeat cxr 04/02 with volume loss bases, no sig. fluid to tap, small effusions on ct 04/05 10. Anxiety disorder Palliative Care Spoke with patient and son Chris. Patient off BiPap ---feels better. RR 32-34. Reviewed conversations patient and son had with physicians. Patient wants to continue to try to get better. Son Chris supportive of her wish. Understands that this will need to be evaluated closely as respiratory condition could decline rapidly. Encouraged patient and son to have conversation about any limitations of care that she would want. They understand that recovery could be a long process. Will continue to follow closely. Chris will be at work tomorrow but available by phone if anything changes. Plan . WILL USE BIPAP QHS AND PRN, I SPOKE WITH PT ON SEVERAL OCCASION AND TRIE TO INFORM HER THAT I DO NOT RECOMMEND INTUBATION PALLIATIVE CARE NOTE APPRECIATED REPEAT CT ABDOMEN/PELVIS REVIEWED/ SMALL EFFUSIONS, DOES NOT NEED TAP LASIX PRN VENOUS DOPPLER NEGATIVE/ CT NEGATIVE FOR PE MONITOR PLATELET / MUCH IMPROVED ANXIETY/ ON SCHEDULED ATIVAN D/W SON 04/10/PT NOW A FULL CODE I WOULD FAVOR NO INTUBATION I THINK IF SHE GET INTUBATED SHE WILL END UP WITH TRACH AND INTERMEDIATE NON WEANABLE UNIT IFEOMA SEXTON MD Apr 11, 2017 14:36
[2017-04-11] MEDS ORDERED: NOREPINEPHRIN PREMIX 250 ML IV ONE (15:51)
[2017-04-11] MEDS ORDERED: NOREPINEPHRINE PREMIX 8 MG/250 ML BAG. IV ONE (16:00)
[2017-04-11 16:44] LABS: HCO3 ABG 25 mmol/L (21-28); PCO2 ABG 31 mmHg (35-46); PH ABG 7.53 (7.35-7.45); PO2 ABG 59 mmHg (65-108); SAT O2 ABG 92 % (92-99)
[2017-04-11 16:45] LABS: FIO2 ABG 35
[2017-04-11] MEDS: IV NORMAL SALINE 1000ML BAG 1,000 ML IV SCH (20:43)
[2017-04-11] MEDS ORDERED: INSULIN DETEMIR 300 UNITS/3 ML INSULN.PEN. SQ SCH (21:00)
[2017-04-11] MEDS ORDERED: TOTAL PARENTERAL NUTRITION IV SCH ×10 (22:00)
[2017-04-11] MEDS ORDERED: AMINO ACIDS IV SCH ×10 (22:00)
[2017-04-11] MEDS ORDERED: [UNRECOGNIZED DRUG - OTHER] IV SCH ×10 (22:00)
[2017-04-11] MEDS ORDERED: DEXTROSE 70% IV SCH ×10 (22:00)
[2017-04-11] MEDS: NOREPINEPHRIN PREMIX 250 ML IV PRN (23:55)
[2017-04-12] VITALS (25 sets, daily range): BP systolic 90–131; BP diastolic 42–69
[2017-04-12] MEDS: fentaNYL PF VIAL 100 MCG/2 ML VIAL IV PRN (02:00)
[2017-04-12] MEDS: HYDROcodone/APAP 7.5/325MG 1 TAB TABLET PO PRN ×4 (04:02→22:15)
[2017-04-12] MEDS: CEFEPIME HCL IV Push 1 GM VIAL. IVP SCH ×3 (05:34→22:15)
[2017-04-12 05:50] LABS: BASO % 1 % (0-3); EOS % 0 % (0-3); HEMATOCRIT 26.7 % (36.0-47.0); HEMOGLOBIN 8.7 g/dL (12.0-15.5); LYMPH # 0.9 x10^3/uL (1.0-4.8); LYMPH % 13 % (24-48); MEAN CORPUSCULAR HEMOGLOBIN 29 pg (25-35); MEAN CORPUSCULAR HGB CONC 33 g/dL (31-37); MEAN CORPUSCULAR VOLUME 88 fL (79-100); MONO % 9 % (0-9); NEUT % 77 % (31-73); PLATELET COUNT 417 x10^3/uL (140-400); RED BLOOD COUNT 3.04 x10^6/uL (3.50-5.40); RED CELL DISTRIBUTION WIDTH 17.9 % (11.5-14.5); WHITE BLOOD COUNT 6.7 x10^3/uL (4.0-11.0)
[2017-04-12 06:19] LABS: CALCIUM 8.2 mg/dL (8.5-10.1); CREATININE 0.7 mg/dL (0.6-1.0); GFR 82.5; POTASSIUM 3.9 mmol/L (3.5-5.1)
--- NOTE | 2017-04-12 07:50 | PDOC ---
Infectious Disease Note Subjective Subjective States ok. No nausea/pain denies SOA or CP or generalized aches TPN Unable to get off Bipap 06 per nursing and on all night ROS ROS GEN: Denies fevers, chills, sweats HEENT: Denies blurred vision, sore throat CV: Denies chest pain RESP: Denies cough GI: Denies n/v/d NEURO: Denies confusion, dizziness MSK: Denies weakness, joint pain Vital Sign Vital Signs Vital Signs Date Time Temp Pulse Resp B/P (MAP) Pulse Ox O2 Delivery O2 Flow Rate FiO2 04/12/17 07:20 99 BiPAP/CPAP 04/12/17 06:00 90 34 90/46 (61) 04/12/17 04:00 98.5 98.5 04/11/17 16:00 5.0 Physical Exam PHYSICAL EXAM GENERAL: Propped up in bed, appears comfortable HEENT: PERRL, on BiPAP LUNGS: Min crackles CV: S1 and S2 ABD: BS active, soft, NT light palpation. Ostomy + output, distal incision dehiscence, + drainage. + drain intact : [place] EXT: 1 plus edema BLE, no cyanosis SKIN: Without rash, warm to touch RECORDS MANAGER: Alert, oriented, following commands RUE-PICC. clean Labs Lab Laboratory Tests Test 04/11/17 11:10 04/11/17 16:25 04/11/17 16:48 04/12/17 05:37 Glucose (Fingerstick) 187 mg/dL (70-99) 176 mg/dL (70-99) O2 Saturation 92 % (92-99) Arterial Blood pH 7.53 (7.35-7.45) Arterial Blood pCO2 at Patient Temp 31 mmHg (35-46) Arterial Blood pO2 at Patient Temp 59 mmHg (65-108) Arterial Blood HCO3 25 mmol/L (21-28) Arterial Blood Base Excess 3 mmol/L (-3-3) FiO2 35 White Blood Count 6.7 x10^3/uL (4.0-11.0) Red Blood Count 3.04 x10^6/uL (3.50-5.40) Hemoglobin 8.7 g/dL (12.0-15.5) Hematocrit 26.7 % (36.0-47.0) Mean Corpuscular Volume 88 fL (79-100) Mean Corpuscular Hemoglobin 29 pg (25-35) Mean Corpuscular Hemoglobin Concent 33 g/dL (31-37) Red Cell Distribution Width 17.9 % (11.5-14.5) Platelet Count 417 x10^3/uL (140-400) Neutrophils (%) (Auto) 77 % (31-73) Lymphocytes (%) (Auto) 13 % (24-48) Monocytes (%) (Auto) 9 % (0-9) Eosinophils (%) (Auto) 0 % (0-3) Basophils (%) (Auto) 1 % (0-3) Neutrophils # (Auto) 5.2 x10^3uL (1.8-7.7) Lymphocytes # (Auto) 0.9 x10^3/uL (1.0-4.8) Monocytes # (Auto) 0.6 x10^3/uL (0.0-1.1) Eosinophils # (Auto) 0.0 x10^3/uL (0.0-0.7) Basophils # (Auto) 0.0 x10^3/uL (0.0-0.2) Sodium Level 139 mmol/L (136-145) Potassium Level 3.9 mmol/L (3.5-5.1) Chloride Level 103 mmol/L (98-107) Carbon Dioxide Level 28 mmol/L (21-32) Anion Gap 8 (6-14) Blood Urea Nitrogen 23 mg/dL (7-20) Creatinine 0.7 mg/dL (0.6-1.0) Estimated GFR (Cockcroft-Gault) 82.5 Glucose Level 244 mg/dL (70-99) Calcium Level 8.2 mg/dL (8.5-10.1) Micro Klebsiella pneumoniae Moderate growth AEROBIC RES 2 Final Yeast Moderate growth Request for further identification must be made within 1 week. AEROBIC RES 3 Final Comment Vancomycin-resistant Enterococcus (Enterococcus faecium) Heavy growth AEROBIC RES 4 Final Comment Pseudomonas aeruginosa Moderate growth CONTINUED ON NEXT PAGE RUN DATE: 03/20/17 PAGE 2 RUN TIME: 823 [facility] [address] [place] [address] M.D., C Python Developer SPEC: [id number] PATIENT: SAFIA MIRANDA [id number] ( Continued) Procedure Result ANTIMICROBIAL SUSCEPTIBILITY Final Comment S = Susceptible; I = Intermediate; R = Resistant P = Positive; N = Negative MICS are expressed in micrograms per mL Antibiotic RSLT#1 RSLT#2 RSLT#3 RSLT#4 Amikacin S Amoxicillin/Clavulanic Acid S Ampicillin R Cefepime S S Ceftazidime S Ceftriaxone S Cefuroxime I Ciprofloxacin S S Ertapenem S Gentamicin S S Imipenem S S Levofloxacin S S Linezolid S Meropenem S Penicillin R Piperacillin R S Quinupristin/Dalfopristin S Tetracycline S Ticarcillin R Tobramycin S S Trimethoprim/Sulfa S Vancomycin R Performed at: [facility] [address] [facility], [place] [id number] Tree Thinner: Ashia Rogers MD, Phone: [phone] SUSCEPTIBILITY TESTING AEROBIC Final Final report SUSCEPTIBILITY TESTING AEROBIC Final Letitia tropicalis Letitia tropicalis susceptibility results: 5-Flucytosine 0.12 mcg/mL Sensitive Itraconazole 1 mcg/mL Resistant Fluconazole 1 mcg/mL Sensitive Voriconazole 0.12 mcg/mL Sensitive Performed at: [facility] [address] [facility] [place] [id number] Tree Thinner: Ashia Rogers MD, Phone: [phone] Objective Assessment [id number] respiratory failure, now on BiPAP but appears comfortable - unable to come off 04/11 - pleural effusions -stable and small/ LE U/S 04/08 neg. ECHO 03/22 EF 40 - 45 %. Repeat 04/10 45 % Hypotension - now on 12 of Levophed Decreasing UOP Fever, UA neg - some better Elevated TSH - T4 in normal range Acute Anemia - s/p PRBCs one unit 04/08 s/p lap converted to open exploration, JAIRO, removal of infected mesh, subtotal colectomy, SBR and hernia repair, 03/24. 10.0 x 5.5 x 18.0 cm fluid collection with air-fluid levels in the right lower quadrant. s/p drain placement, 04/06. 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 s/p drain 03/12. Klebsiella ( R to Zosyn, S Cipro/Levo), VRE (R PCN) and PSAE ( R to ticarcillin only otherwise sensitive, S Cipro/Levo) and C tropicalis -h/o Strep anginosis and Bacteroides Ventral hernia DM HTN PCN allergy/amox also - hives and swelling Elevated CK - improved Plan Plan of Care Repeat Blood cults given need for Levophed Cont Micafungin, Flagyl and Cefepime 04/07 D/c Dapto begin Zyvox to see if may help with resp status f/u cultures and monitor WBC, temp Supportive care D/w nursing Notes reviewed Guarded prognosis overall given resp failure/deconditioning and worsening wounds TERRA BEACH MD Apr 12, 2017 07:50
--- NOTE | 2017-04-12 08:43 | PDOC ---
PROGRESS NOTES Subjective Subjective HPI - f/u of anemia/Thrombocytopenia ROS - dyspnea, now on BIPAP Objective Objective Vital Signs Date Time Temp Pulse Resp B/P (MAP) Pulse Ox O2 Delivery O2 Flow Rate FiO2 04/12/17 07:20 99 BiPAP/CPAP 04/12/17 06:00 90 34 90/46 (61) 04/12/17 04:00 98.5 98.5 04/11/17 16:00 5.0 Intake and Output 04/12/17 07:00 Intake Total 2037.53 ml Output Total 1442 ml Balance 595.53 ml IV Total 2037.53 ml Output Urine Total 992 ml Gastric Drainage Total 100 ml Drainage Total 350 ml Physical Exam General: mild distress Lungs: Other (On BIPAP) Assessment Assessment Problems Medical Problems: (1) Abdominal abscess Status: Acute (2) Abdominal pain Status: Acute A/P: 1. Thrombocytopenia.Resolved. Plt count now 417. 2. Anemia. Most likely multifactorial. Iron studies are suggestive of anemia of chronic disease. /B12 normal. Hb 8.7 monitor and transfuse as needed. 3. Abscess. Management as per primary/surgery 4. Status post laparoscopic converted to open exploration for extensive lysis of adhesion, removal of old mesh, subtotal colectomy, small bowel resection and incisional hernia repair. 5. Anaof-jr-ttkskge respiratory failure. Persistent dyspnea/ now on BIPAP - appreciate pulm f/u. Comment Review of Relevant I have reviewed the following items chito (where applicable) has been applied. Labs Laboratory Tests Test 04/10/17 11:49 04/10/17 17:50 04/11/17 05:40 04/11/17 07:34 Glucose (Fingerstick) 189 mg/dL (70-99) 165 mg/dL (70-99) 191 mg/dL (70-99) White Blood Count 6.2 x10^3/uL (4.0-11.0) Red Blood Count 2.90 x10^6/uL (3.50-5.40) Hemoglobin 8.2 g/dL (12.0-15.5) Hematocrit 25.4 % (36.0-47.0) Mean Corpuscular Volume 88 fL (79-100) Mean Corpuscular Hemoglobin 28 pg (25-35) Mean Corpuscular Hemoglobin Concent 32 g/dL (31-37) Red Cell Distribution Width 17.5 % (11.5-14.5) Platelet Count 358 x10^3/uL (140-400) Neutrophils (%) (Auto) 82 % (31-73) Lymphocytes (%) (Auto) 10 % (24-48) Monocytes (%) (Auto) 8 % (0-9) Eosinophils (%) (Auto) 0 % (0-3) Basophils (%) (Auto) 0 % (0-3) Neutrophils # (Auto) 5.1 x10^3uL (1.8-7.7) Lymphocytes # (Auto) 0.6 x10^3/uL (1.0-4.8) Monocytes # (Auto) 0.5 x10^3/uL (0.0-1.1) Eosinophils # (Auto) 0.0 x10^3/uL (0.0-0.7) Basophils # (Auto) 0.0 x10^3/uL (0.0-0.2) Sodium Level 138 mmol/L (136-145) Potassium Level 3.7 mmol/L (3.5-5.1) Chloride Level 102 mmol/L (98-107) Carbon Dioxide Level 28 mmol/L (21-32) Anion Gap 8 (6-14) Blood Urea Nitrogen 23 mg/dL (7-20) Creatinine 0.7 mg/dL (0.6-1.0) Estimated GFR (Cockcroft-Gault) 82.5 Glucose Level 201 mg/dL (70-99) Calcium Level 8.0 mg/dL (8.5-10.1) Free Thyroxine 0.97 ng/dL (0.76-1.46) Free Triiodothyronine (T3) pg/mL 0.93 pg/mL (2.18-3.98) Test 04/11/17 11:10 04/11/17 16:25 04/11/17 16:48 04/12/17 05:37 Glucose (Fingerstick) 187 mg/dL (70-99) 176 mg/dL (70-99) O2 Saturation 92 % (92-99) Arterial Blood pH 7.53 (7.35-7.45) Arterial Blood pCO2 at Patient Temp 31 mmHg (35-46) Arterial Blood pO2 at Patient Temp 59 mmHg (65-108) Arterial Blood HCO3 25 mmol/L (21-28) Arterial Blood Base Excess 3 mmol/L (-3-3) FiO2 35 White Blood Count 6.7 x10^3/uL (4.0-11.0) Red Blood Count 3.04 x10^6/uL (3.50-5.40) Hemoglobin 8.7 g/dL (12.0-15.5) Hematocrit 26.7 % (36.0-47.0) Mean Corpuscular Volume 88 fL (79-100) Mean Corpuscular Hemoglobin 29 pg (25-35) Mean Corpuscular Hemoglobin Concent 33 g/dL (31-37) Red Cell Distribution Width 17.9 % (11.5-14.5) Platelet Count 417 x10^3/uL (140-400) Neutrophils (%) (Auto) 77 % (31-73) Lymphocytes (%) (Auto) 13 % (24-48) Monocytes (%) (Auto) 9 % (0-9) Eosinophils (%) (Auto) 0 % (0-3) Basophils (%) (Auto) 1 % (0-3) Neutrophils # (Auto) 5.2 x10^3uL (1.8-7.7) Lymphocytes # (Auto) 0.9 x10^3/uL (1.0-4.8) Monocytes # (Auto) 0.6 x10^3/uL (0.0-1.1) Eosinophils # (Auto) 0.0 x10^3/uL (0.0-0.7) Basophils # (Auto) 0.0 x10^3/uL (0.0-0.2) Sodium Level 139 mmol/L (136-145) Potassium Level 3.9 mmol/L (3.5-5.1) Chloride Level 103 mmol/L (98-107) Carbon Dioxide Level 28 mmol/L (21-32) Anion Gap 8 (6-14) Blood Urea Nitrogen 23 mg/dL (7-20) Creatinine 0.7 mg/dL (0.6-1.0) Estimated GFR (Cockcroft-Gault) 82.5 Glucose Level 244 mg/dL (70-99) Calcium Level 8.2 mg/dL (8.5-10.1) Laboratory Tests Test 04/11/17 11:10 04/11/17 16:25 12/6/17 16:48 04/12/17 05:37 Glucose (Fingerstick) 187 mg/dL (70-99) 176 mg/dL (70-99) O2 Saturation 92 % (92-99) Arterial Blood pH 7.53 (7.35-7.45) Arterial Blood pCO2 at Patient Temp 31 mmHg (35-46) Arterial Blood pO2 at Patient Temp 59 mmHg (65-108) Arterial Blood HCO3 25 mmol/L (21-28) Arterial Blood Base Excess 3 mmol/L (-3-3) FiO2 35 White Blood Count 6.7 x10^3/uL (4.0-11.0) Red Blood Count 3.04 x10^6/uL (3.50-5.40) Hemoglobin 8.7 g/dL (12.0-15.5) Hematocrit 26.7 % (36.0-47.0) Mean Corpuscular Volume 88 fL (79-100) Mean Corpuscular Hemoglobin 29 pg (25-35) Mean Corpuscular Hemoglobin Concent 33 g/dL (31-37) Red Cell Distribution Width 17.9 % (11.5-14.5) Platelet Count 417 x10^3/uL (140-400) Neutrophils (%) (Auto) 77 % (31-73) Lymphocytes (%) (Auto) 13 % (24-48) Monocytes (%) (Auto) 9 % (0-9) Eosinophils (%) (Auto) 0 % (0-3) Basophils (%) (Auto) 1 % (0-3) Neutrophils # (Auto) 5.2 x10^3uL (1.8-7.7) Lymphocytes # (Auto) 0.9 x10^3/uL (1.0-4.8) Monocytes # (Auto) 0.6 x10^3/uL (0.0-1.1) Eosinophils # (Auto) 0.0 x10^3/uL (0.0-0.7) Basophils # (Auto) 0.0 x10^3/uL (0.0-0.2) Sodium Level 139 mmol/L (136-145) Potassium Level 3.9 mmol/L (3.5-5.1) Chloride Level 103 mmol/L (98-107) Carbon Dioxide Level 28 mmol/L (21-32) Anion Gap 8 (6-14) Blood Urea Nitrogen 23 mg/dL (7-20) Creatinine 0.7 mg/dL (0.6-1.0) Estimated GFR (Cockcroft-Gault) 82.5 Glucose Level 244 mg/dL (70-99) Calcium Level 8.2 mg/dL (8.5-10.1) Microbiology 04/07/17 Blood Culture - Preliminary, Resulted NO GROWTH AFTER 4 DAYS 04/06/17 Anaerobic/Aerobic Culture - Final, Complete 04/06/17 Anaerobic Culture Result 1 (KULDEEP) - Final, Complete 04/06/17 Anaerobic Culture Result 2 (KULDEEP) - Final, Complete 04/06/17 Aerobic Culture - Final, Complete 04/06/17 Aerobic Culture Result 1 (KULDEEP) - Final, Complete 04/06/17 Aerobic Culture Result 2 (KULDEEP) - Final, Complete 04/06/17 Aerobic Culture Result 3 (KULDEEP) - Final, Complete 04/06/17 Antimicrobic Susceptibility - Final, Complete 03/09/17 Urine Culture - Final, Complete 03/09/17 Urine Culture Result 1 (KULDEEP) - Final, Complete 03/12/17 Fungal Culture - Final, Complete 03/12/17 Fungal Culture Result 1 - Final, Complete Medications Current Medications Ondansetron HCl (Zofran) 4 mg 1X ONCE IV Last administered on 03/09/17 08:30 ; Start 03/09/17 at 08:15; Stop 03/09/17 at 08:16; Status DC Iohexol (Omnipaque 300 Mg/ml) 75 ml 1X ONCE IV Last administered on 03/09/17 08:50; Start 03/09/17 at 08:45; Stop 03/09/17 at 08:46; Status DC Info (Do NOT chart on this entry -- for MONITORING) 1 each PRN DAILY PRN MC SEE COMMENTS; Start 03/09/17 at 08:45; Stop 03/11/17 at 08:44; Status DC Ceftriaxone Sodium 50 ml @ 100 mls/hr 1X ONCE IV ; Start 03/09/17 at 09:30; Stop 03/09/17 at 09:55; Status DC Sodium Chloride 1,000 ml @ 1,000 mls/hr 1X ONCE IV Last administered on 09:55; Start 03/09/17 at 10:00; Stop 03/09/17 at 10:59; Status DC Ondansetron HCl (Zofran) 4 mg PRN Q8HRS PRN IV NAUSEA/VOMITING; Start 03/09/17 at 10:30; Stop 03/10/17 at 10:29; Status DC Meropenem 500 mg/ Sodium Chloride 50 ml @ 100 mls/hr Q8HRS IV Last administered on 03/16/17 06:09; Start 03/09/17 at 13:00; Stop 03/16/17 at 12: 59; Status DC Acetaminophen (Tylenol) 650 mg PRN QID PRN PO MILD PAIN / TEMP Last administered on 03/30/17 17:43; Start 03/09/17 at 20:30 Aspirin (Children'S Aspirin) 81 mg DAILY PO Last administered on 04/11/17 09: 42; Start 03/10/17 at 15:00 Clopidogrel Bisulfate (Plavix) 75 mg DAILY PO Last administered on 03/19/17 10:00; Start 03/10/17 at 15:00; Stop 03/22/17 at 09:10; Status DC Ferrous Sulfate (Feosol) 325 mg DAILY PO Last administered on 04/11/17 09:42; Start 03/10/17 at 15:00 Metoprolol Tartrate (Lopressor) 12.5 mg BID PO Last administered on 03/10/17 16:01; Start 03/10/17 at 15:00; Stop 03/10/17 at 21:01; Status DC Diclofenac Sodium (Voltaren) 75 mg DAILY PO Last administered on 03/23/17 09: 23; Start 03/10/17 at 14:30; Stop 03/29/17 at 10:50; Status DC Famotidine (Pepcid) 20 mg QHS PO Last administered on 03/24/17 21:20; Start 03/10/17 at 21:00; Stop 03/26/17 at 09:35; Status DC Glimepiride (Amaryl) 1 mg DAILY PO Last administered on 03/13/17 09:25; Start 03/11/17 at 15:00; Stop 03/13/17 at 17:02; Status DC Sodium Chloride 1,000 ml @ 100 mls/hr 1X ONCE IV Last administered on 21:00; Start 03/10/17 at 21:00; Stop 03/11/17 at 06:59; Status DC Lidocaine/Sodium Bicarbonate (Buffered Lidocaine 1%) 20 ml STK-MED ONCE IJ ; Start 03/12/17 at 13:05; Stop 03/12/17 at 13:06; Status DC Fentanyl Citrate (Fentanyl 2ml Vial) 100 mcg STK-MED ONCE .ROUTE ; Start at 13:20; Stop 03/12/17 at 13:21; Status DC Midazolam HCl (Versed) 2 mg STK-MED ONCE .ROUTE ; Start 03/12/17 at 13:20; Stop 03/12/17 at 13:21; Status DC Flumazenil (Romazicon) 0.5 mg STK-MED ONCE IV ; Start 03/12/17 at 13:20; Stop 03/12/17 at 13:21; Status DC Naloxone HCl (Narcan) 0.4 mg STK-MED ONCE .ROUTE ; Start 03/12/17 at 13:20; Stop 03/12/17 at 13:21; Status DC Lidocaine/Sodium Bicarbonate (Buffered Lidocaine 1%) 20 ml 1X ONCE IJ Last administered on 03/12/17 13:50; Start 03/12/17 at 13:30; Stop 03/12/17 at 13:33 ; Status DC Midazolam HCl (Versed) 2 mg 1X ONCE IV Last administered on 03/12/17 13:50; Start 03/12/17 at 13:30; Stop 03/12/17 at 13:33; Status DC Fentanyl Citrate (Fentanyl 2ml Vial) 100 mcg 1X ONCE IV Last administered on 03/12/17 13:50; Start 03/12/17 at 13:30; Stop 03/12/17 at 13:33; Status DC Lactobacillus Rhamnosus (Culturelle) 1 cap BID PO Last administered on 21:20; Start 03/12/17 at 21:00; Stop 03/25/17 at 21:06; Status DC Acetaminophen/ Hydrocodone Bitart (Lortab 7.5/325) 1 tab PRN Q6HRS PRN PO MODERATE - SEVERE PAIN Last administered on 04/12/17 04:02; Start 03/12/17 at 18:15 Ondansetron HCl (Zofran) 4 mg PRN Q6HRS PRN IV NAUSEA/VOMITING, 1ST CHOICE Last administered on 03/25/17 04:53; Start 03/13/17 at 09:00 Furosemide (Lasix) 40 mg QODAY PO Last administered on 03/22/17 09:39; Start 03/14/17 at 09:00; Stop 03/26/17 at 09:00; Status DC Glimepiride (Amaryl) 1 mg DAILY08 PO Last administered on 03/22/17 09:40; Start 03/14/17 at 08:00; Stop 03/23/17 at 08:52; Status DC Linezolid (Zyvox) 600 mg BID PO Last administered on 03/24/17 21:20; Start 03/14/17 at 13:15; Stop 03/25/17 at 10:49; Status DC Meropenem (Merrem) 500 mg Q8HRS IVP Last administered on 03/30/17 06:04; Start 03/16/17 at 14:00; Stop 03/30/17 at 07:49; Status DC Iohexol (Omnipaque 240 Mg/ml) 50 ml STK-MED ONCE .ROUTE ; Start 03/19/17 at 13: 11; Stop 03/19/17 at 13:12; Status DC Iohexol (Omnipaque 240 Mg/ml) 10 ml 1X ONCE IJ Last administered on 14:07; Start 03/19/17 at 14:00; Stop 03/19/17 at 14:01; Status DC Info (Do NOT chart on this entry -- for MONITORING) 1 each PRN DAILY PRN MC SEE COMMENTS; Start 03/19/17 at 14:00; Stop 03/21/17 at 13:59; Status DC Iohexol (Omnipaque 240 Mg/ml) 50 ml STK-MED ONCE .ROUTE ; Start 03/19/17 at 13: 55; Stop 03/19/17 at 13:56; Status DC Fluconazole (Diflucan) 200 mg DAILY PO Last administered on 03/23/17 09:24; Start 03/22/17 at 09:30; Stop 03/25/17 at 10:51; Status DC Metoprolol Succinate (Toprol Xl) 12.5 mg DAILY PO Last administered on 09:43; Start 03/23/17 at 09:00 Glimepiride (Amaryl) 0.5 mg DAILY08 PO ; Start 03/24/17 at 08:00; Stop at 13:05; Status DC Morphine Sulfate 1 mg PRN Q10MIN PRN IV SEVERE PAIN; Start 03/26/17 at 07:00; Stop 03/26/17 at 07:00; Status DC Ringer's Solution 1,000 ml @ 30 mls/hr Q24H IV ; Start 03/26/17 at 07:00; Stop 03/26/17 at 07:00; Status DC Lidocaine HCl (Xylocaine-Mpf 1% Vial) 2 ml PRN 1X PRN ID PRIOR TO IV START; Start 03/26/17 at 07:00; Stop 03/26/17 at 07:00; Status DC Hydromorphone HCl (Dilaudid) 0.5 mg PRN Q10MIN PRN IV SEV PAIN, Second choice; Start 03/26/17 at 07:00; Stop 03/27/17 at 06:59; Status Cancel Prochlorperazine Edisylate (Compazine) 5 mg PACU PRN PRN IV NAUSEA, MRX1 Last administered on 03/25/17 07:45; Start 03/26/17 at 07:00; Stop 03/26/17 at 07 :00; Status DC Morphine Sulfate 1 mg PRN Q10MIN PRN IV SEVERE PAIN; Start 03/24/17 at 07:45; Stop 03/25/17 at 07:44; Status DC Ringer's Solution 1,000 ml @ 30 mls/hr Q24H IV Last administered on 14:15; Start 03/24/17 at 07:32; Stop 03/24/17 at 19:31; Status DC Lidocaine HCl (Xylocaine-Mpf 1% Vial) 2 ml 1X PRN PRN ID IV START; Start 03/24 at 07:45; Stop 03/25/17 at 07:44; Status DC Hydromorphone HCl (Dilaudid) 0.5 mg PRN Q10MIN PRN IV SEV PAIN, Second choice; Start 03/24/17 at 07:45; Stop 03/25/17 at 07:44; Status DC Prochlorperazine Edisylate (Compazine) 5 mg PACU PRN PRN IV NAUSEA, MRX1; Start 03/24/17 at 07:45; Stop 03/25/17 at 07:44; Status DC Bupivacaine HCl/ Epinephrine Bitart (Sensorcain-Mpf Epi 0.5%-[id number]) 30 ml STK -MED ONCE .ROUTE Last administered on 03/24/17t 15:56; Start 03/24/17 at 10: 28; Stop 03/24/17 at 10:29; Status DC Neostigmine Methylsulfate (Bloxiverz) 10 mg STK-MED ONCE .ROUTE ; Start at 14:38; Stop 03/24/17 at 14:39; Status DC Rocuronium [place] (Zemuron) 50 mg STK-MED ONCE .ROUTE ; Start 03/24/17 at 14: 38; Stop 03/24/17 at 14:39; Status DC Fentanyl Citrate (Fentanyl 2ml Vial) 100 mcg STK-MED ONCE .ROUTE ; Start at 14:38; Stop 03/24/17 at 14:39; Status DC Phenylephrine HCl 1 mg STK-MED ONCE IV ; Start 03/24/17 at 14:40; Stop at 14:41; Status DC Lidocaine HCl (Lidocaine Pf 2% Vial) 5 ml STK-MED ONCE .ROUTE ; Start 03/24/17 at 14:40; Stop 03/24/17 at 14:41; Status DC Dexamethasone Sodium Phosphate (Decadron) 20 mg STK-MED ONCE .ROUTE ; Start at 14:40; Stop 03/24/17 at 14:41; Status DC Ondansetron HCl (Zofran) 4 mg STK-MED ONCE .ROUTE ; Start 03/24/17 at 14:40; Stop 03/24/17 at 14:41; Status DC Propofol 20 ml @ As Directed STK-MED ONCE IV ; Start 03/24/17 at 14:40; Stop 03/24/17 at 14:41; Status DC Glycopyrrolate (Robinul) 1 mg STK-MED ONCE .ROUTE ; Start 03/24/17 at 15:11; Stop 03/24/17 at 15:12; Status DC Rocuronium [place] (Zemuron) 50 mg STK-MED ONCE .ROUTE ; Start 03/24/17 at 15: 53; Stop 03/24/17 at 15:54; Status DC Fentanyl Citrate (Fentanyl 2ml Vial) 100 mcg STK-MED ONCE .ROUTE ; Start at 16:01; Stop 03/24/17 at 16:02; Status DC Morphine Sulfate 10 mg STK-MED ONCE .ROUTE ; Start 03/24/17 at 16:02; Stop at 16:03; Status DC Albumin Human 500 ml @ As Directed STK-MED ONCE IV ; Start 03/24/17 at 17:03; Stop 03/24/17 at 17:04; Status DC Phenylephrine HCl (Corky-Synephrine Inj) 10 mg STK-MED ONCE .ROUTE ; Start at 17:27; Stop 03/24/17 at 17:28; Status DC Rocuronium [place] (Zemuron) 100 mg STK-MED ONCE .ROUTE ; Start 03/24/17 at 17: 57; Stop 03/24/17 at 17:58; Status DC Enoxaparin Sodium (Lovenox 40mg Syringe) 40 mg Q24H SQ Last administered on 20:51; Start 03/24/17 at 20:45; Stop 03/26/17 at 19:34; Status DC Sodium Chloride (Normal Saline Flush) 3 ml QSHIFT PRN IV AFTER MEDS AND BLOOD DRAWS; Start 03/24/17 at 20:45 Ringer's Solution 1,000 ml @ 100 mls/hr Q10H IV Last administered on 12:32; Start 03/24/17 at 20:43; Stop 03/25/17 at 16:52; Status DC Naloxone HCl (Narcan) 0.4 mg PRN Q2MIN PRN IV SEE INSTRUCTIONS; Start at 20:45 Sodium Chloride 1,000 ml @ 25 mls/hr Q24H IV Last administered on 03/27/17 12:08; Start 03/24/17 at 20:43 Hydromorphone HCl 30 ml @ 0 mls/hr CONT PRN PRN IV PROTOCOL Last administered on 03/24/17 23:16; Start 03/24/17 at 20:45 Prochlorperazine Edisylate (Compazine) 5 mg PRN Q4HRS PRN IV NAUSEA/VOMITING, 2ND CHOICE; Start 03/25/17 at 07:45 Pantoprazole Sodium (PROTONIX VIAL for IV PUSH) 40 mg DAILYAC IVP Last administered on 04/11/17 09:42; Start 03/25/17 at 10:15 Linezolid 300 ml @ 300 mls/hr Q12HR IV Last administered on 03/26/17 20:54; Start 03/25/17 at 11:00; Stop 03/27/17 at 08:05; Status DC Fluconazole/ Sodium Chloride 100 ml @ 100 mls/hr Q24H IV Last administered on 04/07/17 11:52; Start 03/25/17 at 11:00; Stop 04/07/17 at 13:39; Status DC Dextrose/Lactated Ringer's 1,000 ml @ 75 mls/hr [id number] IV Last administered on 04/03/17 08:54; Start 03/25/17 at 17:00; Stop 04/04/17 at 09:23; Status DC Famotidine (Pepcid Vial) 40 mg QHS IVP Last administered on 03/28/17 21:35; Start 03/25/17 at 21:00; Stop 03/29/17 at 08:02; Status DC Lorazepam (Ativan) 0.5 mg 1X ONCE IV ; Start 03/26/17 at 07:00; Stop at 07:01; Status Cancel Lorazepam (Ativan) 0.5 mg PRN Q8HRS PRN PO ANXIETY / AGITATION; Start at 07:00; Status Cancel Furosemide (Lasix) 40 mg 1X ONCE IVP Last administered on 03/26/17 09:54; Start 03/26/17 at 09:00; Stop 03/26/17 at 09:01; Status DC Furosemide (Lasix) 20 mg DAILY IVP Last administered on 03/30/17 09:29; Start 03/27/17 at 09:00; Stop 03/31/17 at 12:22; Status DC Digoxin (Lanoxin) 250 mcg 1X ONCE IV Last administered on 03/26/17 15:06; Start 03/26/17 at 15:15; Stop 03/26/17 at 15:16; Status DC Iohexol (Omnipaque 300 Mg/ml) 75 ml 1X ONCE IV Last administered on 16:41; Start 03/26/17 at 16:45; Stop 03/26/17 at 16:46; Status DC Info (Do NOT chart on this entry -- for MONITORING) 1 each PRN DAILY PRN MC SEE COMMENTS; Start 03/26/17 at 16:45; Stop 03/28/17 at 16:44; Status DC Norepinephrine Bitartrate 250 ml @ As Directed STK-MED ONCE IV ; Start at 17:42; Stop 03/26/17 at 17:43; Status DC Norepinephrine Bitartrate 250 ml @ 0 mls/hr CONT PRN IV SEE I/O RECORD Last administered on 03/26/17 18:01; Start 03/26/17 at 18:00; Stop 04/04/17 at 09 :57; Status DC Enoxaparin Sodium (Lovenox Per Pharmacy Treatment Dosing) 1 each PRN DAILY PRN MC SEE COMMENTS; Start 03/26/17 at 19:30; Stop 03/28/17 at 12:38; Status DC Enoxaparin Sodium (Lovenox 80mg Syringe) 80 mg Q12HR SQ Last administered on 21:51; Start 03/26/17 at 20:00; Stop 03/28/17 at 15:36; Status DC Daptomycin 460 mg/ Sodium Chloride 50 ml @ 100 mls/hr Q24H IV Last administered on 04/11/17 09:41; Start 03/27/17 at 09:00; Stop 04/12/17 at 07: 49; Status DC Digoxin (Lanoxin) 250 mcg 1X ONCE IV Last administered on 03/27/17 12:09; Start 03/27/17 at 12:00; Stop 03/27/17 at 12:01; Status DC Insulin Detemir (Levemir) 5 units QHS SQ Last administered on 04/04/17 21:30 ; Start 03/27/17 at 21:00; Stop 04/05/17 at 09:34; Status DC Albumin Human 100 ml @ 100 mls/hr Q8H IV Last administered on 03/29/17 00:42 ; Start 03/28/17 at 09:00; Stop 03/29/17 at 01:59; Status DC Lorazepam (Ativan) 1 mg PRN Q6HRS PRN PO ANXIETY / AGITATION Last administered on 04/07/17 05:43; Start 03/28/17 at 16:00; Stop 04/07/17 at 16:34; Status DC Iohexol (Omnipaque 300 Mg/ml) 75 ml 1X ONCE IV Last administered on 16:00; Start 03/28/17 at 16:00; Stop 03/28/17 at 16:02; Status DC Info (Do NOT chart on this entry -- for MONITORING) 1 each PRN DAILY PRN MC SEE COMMENTS; Start 03/28/17 at 16:15; Stop 03/30/17 at 16:14; Status DC Fentanyl Citrate (Fentanyl 2ml Vial) 50 mcg PRN Q4HRS PRN IV PAIN Last administered on 04/12/17 02:00; Start 03/29/17 at 09:45 Ciprofloxacin/ Dextrose 200 ml @ 200 mls/hr Q12HR IV Last administered on 08:58; Start 03/30/17 at 09:00; Stop 04/04/17 at 10:45; Status DC Lorazepam (Ativan) 0.5 mg Q12HR PO Last administered on 04/11/17 22:00; Start 03/30/17 at 21:00 Dopamine HCl/ Dextrose 250 ml @ 15.155 mls/ hr CONT PRN IV SEE I/O RECORD Last administered on 04/06/17 15:44; Start 03/31/17 at 13:00 Info 1 each PRN DAILY PRN MC SEE COMMENTS Last administered on 04/11/17 12:53 ; Start 04/03/17 at 12:15 Sodium Chloride 90 meq/Potassium Chloride 50 meq/ Potassium Phosphate 20.4 mmol/ Magnesium Sulfate 10 meq/ Calcium Gluconate 10 meq/ Multivitamins 10 ml/Chromium / Copper/Manganese/ Seleni/Zn 1 ml/ Total Parenteral Nutrition/Amino Acids/ Dextrose/ Fat Emulsion Intravenous 1,512 ml @ 63 mls/hr TPN CONT IV Last administered on 04/03/17 21:38; Start 04/03/17 at 22:00; Stop 04/04/17 at 21 :59; Status DC Levofloxacin/ Dextrose 100 ml @ 100 mls/hr Q24H IV Last administered on 21:47; Start 04/04/17 at 21:00; Stop 04/07/17 at 13:39; Status DC Furosemide (Lasix) 40 mg DAILY IVP Last administered on 04/11/17 09:41; Start 04/04/17 at 12:00 Sodium Chloride 90 meq/Potassium Chloride 50 meq/ Potassium Phosphate 20.4 mmol/ Magnesium Sulfate 16 meq/ Calcium Gluconate 10 meq/ Multivitamins 10 ml/Chromium / Copper/Manganese/ Seleni/Zn 1 ml/ Total Parenteral Nutrition/Amino Acids/ Dextrose/ Fat Emulsion Intravenous 1,512 ml @ 63 mls/hr TPN CONT IV Last administered on 04/04/17 21:16; Start 04/04/17 at 22:00; Stop 04/05/17 at 21 :59; Status DC Insulin Detemir (Levemir) 20 units QHS SQ Last administered on 04/10/17 21:39 ; Start 04/05/17 at 21:00; Stop 04/11/17 at 08:11; Status DC Insulin Detemir (Levemir) 10 units 1X ONCE SQ Last administered on 04/05/17 14:12; Start 04/05/17 at 09:45; Stop 04/05/17 at 09:46; Status DC Sodium Chloride 90 meq/Potassium Chloride 50 meq/ Potassium Phosphate 20.4 mmol/ Magnesium Sulfate 24 meq/ Calcium Gluconate 10 meq/ Multivitamins 10 ml/Chromium / Copper/Manganese/ Seleni/Zn 1 ml/ Total Parenteral Nutrition/Amino Acids/ Dextrose/ Fat Emulsion Intravenous 1,512 ml @ 63 mls/hr TPN CONT IV Last administered on 04/05/17 20:55; Start 04/05/17 at 22:00; Stop 04/06/17 at 21: 59; Status DC Iohexol (Omnipaque 300 Mg/ml) 75 ml 1X ONCE IV ; Start 04/05/17 at 13:00; Stop 04/05/17 at 13:01; Status DC Iohexol (Omnipaque 240 Mg/ml) 30 ml 1X ONCE PO ; Start 04/05/17 at 13:00; Stop 04/05/17 at 13:01; Status DC Info (Do NOT chart on this entry -- for MONITORING) 1 each PRN DAILY PRN MC SEE COMMENTS; Start 04/05/17 at 13:00; Stop 04/07/17 at 12:59; Status DC Sodium Chloride 90 meq/Potassium Chloride 50 meq/ Potassium Phosphate 20.4 mmol/ Magnesium Sulfate 24 meq/ Calcium Gluconate 10 meq/ Multivitamins 10 ml/Chromium / Copper/Manganese/ Seleni/Zn 1 ml/ Total Parenteral Nutrition/Amino Acids/ Dextrose/ Fat Emulsion Intravenous 1,512 ml @ 63 mls/hr TPN CONT IV Last administered on 04/06/17t 21:45; Start 04/06/17 at 22:00; Stop 04/07/17 at 21:59 ; Status DC Lidocaine/Sodium Bicarbonate (Buffered Lidocaine 1%) 20 ml STK-MED ONCE IJ ; Start 04/06/17 at 14:28; Stop 04/06/17 at 14:29; Status DC Fentanyl Citrate (Fentanyl 2ml Vial) 100 mcg STK-MED ONCE .ROUTE ; Start at 14:45; Stop 04/06/17 at 14:46; Status DC Midazolam HCl (Versed) 2 mg STK-MED ONCE .ROUTE ; Start 04/06/17 at 14:45; Stop 04/06/17 at 14:46; Status DC Flumazenil (Romazicon) 0.5 mg STK-MED ONCE IV ; Start 04/06/17 at 14:45; Stop 04/06/17 at 14:46; Status DC Naloxone HCl (Narcan) 0.4 mg STK-MED ONCE .ROUTE ; Start 04/06/17 at 14:45; Stop 04/06/17 at 14:46; Status DC Dopamine HCl/ Dextrose 250 ml @ As Directed STK-MED ONCE IV ; Start 04/06/17 at 14:50; Stop 04/06/17 at 14:51; Status DC Lidocaine/Sodium Bicarbonate (Buffered Lidocaine 1%) 7 ml 1X ONCE IJ Last administered on 04/06/17t 15:20; Start 04/06/17 at 15:30; Stop 04/06/17 at 15:31 ; Status DC Sodium Chloride 90 meq/Potassium Chloride 50 meq/ Potassium Phosphate 13.6 mmol/ Magnesium Sulfate 20 meq/ Calcium Gluconate 10 meq/ Multivitamins 10 ml/Chromium / Copper/Manganese/ Seleni/Zn 1 ml/ Total Parenteral Nutrition/Amino Acids/ Dextrose/ Fat Emulsion Intravenous 1,512 ml @ 63 mls/hr TPN CONT IV Last administered on 04/07/17 21:19; Start 04/07/17 at 22:00; Stop 04/08/17 at 21:59 ; Status DC Micafungin Sodium 100 mg/Sodium Chloride 100 ml @ 100 mls/hr Q24H IV Last administered on 04/11/17 13:44; Start 04/07/17 at 14:00 Metronidazole 100 ml @ 100 mls/hr Q8HRS IV Last administered on 04/12/17 05: 34; Start 04/07/17 at 14:00 Cefepime HCl 1 gm/ Dextrose 50 ml @ 100 mls/hr Q8HRS IV ; Start 04/07/17 at 14: 00; Status UNV Cefepime HCl (Maxipime) 1 gm Q8HRS IVP Last administered on 04/12/17 05:34; Start 04/07/17 at 14:00 Sodium Chloride 90 meq/Potassium Chloride 50 meq/ Potassium Phosphate 13.6 mmol/ Magnesium Sulfate 20 meq/ Calcium Gluconate 10 meq/ Multivitamins 10 ml/Chromium / Copper/Manganese/ Seleni/Zn 1 ml/ Total Parenteral Nutrition/Amino Acids/ Dextrose/ Fat Emulsion Intravenous 1,512 ml @ 63 mls/hr TPN CONT IV Last administered on 04/08/17 21:23; Start 04/08/17 at 22:00; Stop 04/09/17 at 21:59 ; Status DC Furosemide (Lasix) 40 mg 1X ONCE IVP Last administered on 04/09/17 10:03; Start 04/09/17 at 08:15; Stop 04/09/17 at 08:16; Status DC Sodium Chloride 90 meq/Potassium Chloride 50 meq/ Potassium Phosphate 13.6 mmol/ Magnesium Sulfate 20 meq/ Calcium Gluconate 10 meq/ Multivitamins 10 ml/Chromium / Copper/Manganese/ Seleni/Zn 1 ml/ Total Parenteral Nutrition/Amino Acids/ Dextrose/ Fat Emulsion Intravenous 1,512 ml @ 63 mls/hr TPN CONT IV Last administered on 04/09/17 21:52; Start 04/09/17 at 22:00; Stop 04/10/17 at 21:59 ; Status DC Sodium Chloride 90 meq/Potassium Chloride 60 meq/ Potassium Phosphate 13.6 mmol/ Magnesium Sulfate 20 meq/ Calcium Gluconate 10 meq/ Multivitamins 10 ml/Chromium / Copper/Manganese/ Seleni/Zn 1 ml/ Total Parenteral Nutrition/Amino Acids/ Dextrose/ Fat Emulsion Intravenous 1,512 ml @ 63 mls/hr TPN CONT IV Last administered on 04/10/17 21:37; Start 04/10/17 at 22:00; Stop 04/11/17 at 21:59 ; Status DC Insulin Detemir (Levemir) 22 units QHS SQ Last administered on 04/11/17 22:08 ; Start 04/11/17 at 21:00 Enoxaparin Sodium (Lovenox 40mg Syringe) 40 mg Q24H SQ Last administered on 09:00; Start 04/11/17 at 09:00 Sodium Chloride 90 meq/Potassium Chloride 60 meq/ Potassium Phosphate 13.6 mmol/ Magnesium Sulfate 20 meq/ Calcium Gluconate 10 meq/ Multivitamins 10 ml/Chromium / Copper/Manganese/ Seleni/Zn 1 ml/ Total Parenteral Nutrition/Amino Acids/ Dextrose/ Fat Emulsion Intravenous 1,512 ml @ 63 mls/hr TPN CONT IV Last administered on 04/11/17 21:59; Start 04/11/17 at 22:00; Stop 04/12/17 at 21:59 Norepinephrine Bitartrate 250 ml @ As Directed STK-MED ONCE IV ; Start at 15:51; Stop 04/11/17 at 15:52; Status DC Norepinephrine Bitartrate 250 ml @ 0 mls/hr CONT PRN IV SEE I/O RECORD Last administered on 04/11/17 23:55; Start 04/11/17 at 22:30 Linezolid 300 ml @ 300 mls/hr Q12HR IV ; Start 04/12/17 at 09:00 Active Scripts Active Reported Flagyl (Metronidazole) 500 Mg Tablet 1 Tab PO BID Cefpodoxime Proxetil 200 Mg Tablet 1 Tab PO BID Ferrous Sulfate 325 Mg Tablet 1 Tab PO DAILY Lasix (Furosemide) 40 Mg Tablet 40 Mg PO QODAY Potassium Chloride 10 Meq Capsule.er 10 Meq PO QODAY Metoprolol Tartrate 25 Mg Tablet 12.5 Mg PO BID Atorvastatin Calcium 40 Mg Tablet 40 Mg PO HS Clopidogrel (Clopidogrel Bisulfate) 75 Mg Tablet 1 Tab PO DAILY Diclofenac Sodium 75 Mg Tablet.dr 75 Mg PO DAILY Ranitidine Hcl 150 Mg Tablet 1 Tab PO BID Aspirin 81 Mg Tab.chew 1 Tab PO DAILY Vitals/I & O Vital Sign - Last 24 Hours 04/11/17 04/11/17 04/11/17 04/11/17 09:00 09:43 10:00 11:00 Pulse 100 104 100 106 Resp 41 44 41 B/P (MAP) 103/58 (73) 103/58 107/63 (78) 87/62 (70) Pulse Ox 98 98 98 O2 Delivery BiPAP/CPAP BiPAP/CPAP BiPAP/CPAP 04/11/17 04/11/17 04/11/17 04/11/17 11:27 12:00 12:00 12:00 Temp 99.2 99.2 Pulse 100 Resp 38 B/P (MAP) 95/57 (70) Pulse Ox 99 100 O2 Delivery BiPAP/CPAP BiPAP/CPAP Bi-pap O2 Flow Rate 5.0 04/11/17 04/11/17 04/11/17 04/11/17 12:40 13:00 14:00 15:00 Pulse 102 106 104 Resp 44 42 42 B/P (MAP) 95/54 (68) 85/56 (66) 72/39 (50) Pulse Ox 99 100 98 97 O2 Delivery BiPAP/CPAP BiPAP/CPAP BiPAP/CPAP BiPAP/CPAP 04/11/17 04/11/17 04/11/17 04/11/17 15:26 15:30 15:50 16:00 Pulse 100 104 Resp 40 37 B/P (MAP) 80/45 (57) 64/26 (39) Pulse Ox 99 100 99 O2 Delivery BiPAP/CPAP BiPAP/CPAP BiPAP/CPAP O2 Flow Rate 5.0 04/11/17 04/11/17 04/11/17 04/11/17 16:00 16:00 16:15 16:45 Pulse 112 108 Resp 48 48 B/P (MAP) 136/53 (80) 135/50 (78) Pulse Ox 93 93 99 O2 Delivery Bi-pap BiPAP/CPAP BiPAP/CPAP BiPAP/CPAP 04/11/17 04/11/17 04/11/17 04/11/17 17:00 17:41 18:08 19:00 Pulse 114 113 106 Resp 50 56 39 B/P (MAP) 123/48 (73) 99/49 (66) 134/48 (76) Pulse Ox 96 97 99 96 O2 Delivery BiPAP/CPAP BiPAP/CPAP BiPAP/CPAP BiPAP/CPAP 04/11/17 04/11/17 04/11/17 04/11/17 19:46 20:00 20:00 21:00 Temp 99.3 99.3 Pulse 105 101 Resp 38 32 B/P (MAP) 130/58 (82) 135/53 (80) Pulse Ox 96 97 97 O2 Delivery BiPAP/CPAP Bi-pap BiPAP/CPAP BiPAP/CPAP 04/11/17 04/11/17 04/11/17 04/11/17 22:00 22:00 22:30 23:00 Pulse 94 88 97 Resp 38 30 33 33 B/P (MAP) 131/57 (81) 128/56 (80) 90/45 (60) Pulse Ox 98 98 100 99 O2 Delivery BiPAP/CPAP BiPAP/CPAP BiPAP/CPAP BiPAP/CPAP 04/11/17 04/11/17 04/12/17 04/12/17 23:11 23:59 00:00 00:45 Temp 99.1 99.1 Pulse 83 Resp 29 B/P (MAP) 131/54 (79) 118/56 (76) Pulse Ox 98 99 O2 Delivery BiPAP/CPAP Bi-pap BiPAP/CPAP 04/12/17 04/12/17 04/12/17 04/12/17 01:00 02:00 02:00 02:02 Pulse 81 81 Resp 30 43 34 B/P (MAP) 116/49 (71) 119/47 (71) Pulse Ox 99 98 98 98 O2 Delivery BiPAP/CPAP BiPAP/CPAP BiPAP/CPAP BiPAP/CPAP 04/12/17 04/12/17 04/12/17 04/12/17 02:30 03:00 03:27 04:00 Temp 98.5 98.5 Pulse 85 96 Resp 34 35 38 B/P (MAP) 117/53 (74) 117/50 (72) Pulse Ox 98 96 98 97 O2 Delivery BiPAP/CPAP BiPAP/CPAP BiPAP/CPAP BiPAP/CPAP 04/12/17 04/12/17 04/12/17 04/12/17 04:00 04:02 05:00 05:02 Pulse 88 Resp 40 32 34 B/P (MAP) 108/49 (68) Pulse Ox 97 98 99 O2 Delivery Bi-pap BiPAP/CPAP BiPAP/CPAP BiPAP/CPAP 04/12/17 04/12/17 04/12/17 05:26 06:00 07:20 Pulse 90 Resp 34 B/P (MAP) 90/46 (61) Pulse Ox 99 99 99 O2 Delivery BiPAP/CPAP BiPAP/CPAP BiPAP/CPAP Intake and Output 04/11/17 04/11/17 04/12/17 15:00 23:00 07:00 Intake Total 184.53 ml 1853 ml Output Total 865 ml 302 ml 275 ml Balance -865 ml -117.47 ml 1578 ml DANNY MEZA MD Apr 12, 2017 08:43
[2017-04-12] MEDS: ENOXAPARIN 40 MG/0.4 ML SYRINGE. SQ SCH (09:00)
[2017-04-12] MEDS: METOPROLOL SUCC 24HR ER 25 MG TAB.ER.24H. PO SCH (09:00)
[2017-04-12] MEDS: FUROSEMIDE 40 MG/4 ML VIAL. IVP SCH (09:39)
[2017-04-12] MEDS: PANTOPRAZOLE IV PUSH 40 MG VIAL. IVP SCH (09:39)
[2017-04-12] MEDS: FERROUS SULFATE 325 MG TABLET. PO SCH (09:40)
[2017-04-12] MEDS: ASPIRIN CHEWABLE 81 MG TABLET. PO SCH (09:40)
[2017-04-12] MEDS: LORazepam 0.5 MG TABLET PO SCH ×2 (09:40→22:14)
[2017-04-12] MEDS: NOREPINEPHRIN PREMIX 250 ML IV PRN (12:12)
--- NOTE | 2017-04-12 12:20 | PDOC ---
SURGICAL PROGRESS NOTE Subjective Rony for Rafael on BIPAP [id number] at bedside able to take some po, but intake limited 2/2 time off facemask Vital Signs Vital Signs Date Time Temp Pulse Resp B/P (MAP) Pulse Ox O2 Delivery O2 Flow Rate FiO2 04/12/17 12:01 99 BiPAP/CPAP 04/12/17 11:00 99 37 103/52 (69) 04/12/17 08:00 99.2 99.2 04/11/17 16:00 5.0 I&O Intake and Output 04/12/17 07:00 Intake Total 2037.53 ml Output Total 1442 ml Balance 595.53 ml IV Total 2037.53 ml Output Urine Total 992 ml Gastric Drainage Total 100 ml Drainage Total 350 ml PATIENT HAS A HOPPER: Yes General: Alert, Cooperative, No acute distress Abdomen: Soft Labs Laboratory Tests Test 04/10/17 17:50 04/11/17 05:40 04/11/17 07:34 04/11/17 11:10 Glucose (Fingerstick) 165 mg/dL (70-99) 191 mg/dL (70-99) 187 mg/dL (70-99) White Blood Count 6.2 x10^3/uL (4.0-11.0) Red Blood Count 2.90 x10^6/uL (3.50-5.40) Hemoglobin 8.2 g/dL (12.0-15.5) Hematocrit 25.4 % (36.0-47.0) Mean Corpuscular Volume 88 fL (79-100) Mean Corpuscular Hemoglobin 28 pg (25-35) Mean Corpuscular Hemoglobin Concent 32 g/dL (31-37) Red Cell Distribution Width 17.5 % (11.5-14.5) Platelet Count 358 x10^3/uL (140-400) Neutrophils (%) (Auto) 82 % (31-73) Lymphocytes (%) (Auto) 10 % (24-48) Monocytes (%) (Auto) 8 % (0-9) Eosinophils (%) (Auto) 0 % (0-3) Basophils (%) (Auto) 0 % (0-3) Neutrophils # (Auto) 5.1 x10^3uL (1.8-7.7) Lymphocytes # (Auto) 0.6 x10^3/uL (1.0-4.8) Monocytes # (Auto) 0.5 x10^3/uL (0.0-1.1) Eosinophils # (Auto) 0.0 x10^3/uL (0.0-0.7) Basophils # (Auto) 0.0 x10^3/uL (0.0-0.2) Sodium Level 138 mmol/L (136-145) Potassium Level 3.7 mmol/L (3.5-5.1) Chloride Level 102 mmol/L (98-107) Carbon Dioxide Level 28 mmol/L (21-32) Anion Gap 8 (6-14) Blood Urea Nitrogen 23 mg/dL (7-20) Creatinine 0.7 mg/dL (0.6-1.0) Estimated GFR (Cockcroft-Gault) 82.5 Glucose Level 201 mg/dL (70-99) Calcium Level 8.0 mg/dL (8.5-10.1) Free Thyroxine 0.97 ng/dL (0.76-1.46) Free Triiodothyronine (T3) pg/mL 0.93 pg/mL (2.18-3.98) Test 04/11/17 16:25 04/11/17 16:48 04/12/17 05:37 O2 Saturation 92 % (92-99) Arterial Blood pH 7.53 (7.35-7.45) Arterial Blood pCO2 at Patient Temp 31 mmHg (35-46) Arterial Blood pO2 at Patient Temp 59 mmHg (65-108) Arterial Blood HCO3 25 mmol/L (21-28) Arterial Blood Base Excess 3 mmol/L (-3-3) FiO2 35 Glucose (Fingerstick) 176 mg/dL (70-99) White Blood Count 6.7 x10^3/uL (4.0-11.0) Red Blood Count 3.04 x10^6/uL (3.50-5.40) Hemoglobin 8.7 g/dL (12.0-15.5) Hematocrit 26.7 % (36.0-47.0) Mean Corpuscular Volume 88 fL (79-100) Mean Corpuscular Hemoglobin 29 pg (25-35) Mean Corpuscular Hemoglobin Concent 33 g/dL (31-37) Red Cell Distribution Width 17.9 % (11.5-14.5) Platelet Count 417 x10^3/uL (140-400) Neutrophils (%) (Auto) 77 % (31-73) Lymphocytes (%) (Auto) 13 % (24-48) Monocytes (%) (Auto) 9 % (0-9) Eosinophils (%) (Auto) 0 % (0-3) Basophils (%) (Auto) 1 % (0-3) Neutrophils # (Auto) 5.2 x10^3uL (1.8-7.7) Lymphocytes # (Auto) 0.9 x10^3/uL (1.0-4.8) Monocytes # (Auto) 0.6 x10^3/uL (0.0-1.1) Eosinophils # (Auto) 0.0 x10^3/uL (0.0-0.7) Basophils # (Auto) 0.0 x10^3/uL (0.0-0.2) Sodium Level 139 mmol/L (136-145) Potassium Level 3.9 mmol/L (3.5-5.1) Chloride Level 103 mmol/L (98-107) Carbon Dioxide Level 28 mmol/L (21-32) Anion Gap 8 (6-14) Blood Urea Nitrogen 23 mg/dL (7-20) Creatinine 0.7 mg/dL (0.6-1.0) Estimated GFR (Cockcroft-Gault) 82.5 Glucose Level 244 mg/dL (70-99) Calcium Level 8.2 mg/dL (8.5-10.1) Laboratory Tests Test 04/11/17 16:25 04/11/17 16:48 04/12/17 05:37 O2 Saturation 92 % (92-99) Arterial Blood pH 7.53 (7.35-7.45) Arterial Blood pCO2 at Patient Temp 31 mmHg (35-46) Arterial Blood pO2 at Patient Temp 59 mmHg (65-108) Arterial Blood HCO3 25 mmol/L (21-28) Arterial Blood Base Excess 3 mmol/L (-3-3) FiO2 35 Glucose (Fingerstick) 176 mg/dL (70-99) White Blood Count 6.7 x10^3/uL (4.0-11.0) Red Blood Count 3.04 x10^6/uL (3.50-5.40) Hemoglobin 8.7 g/dL (12.0-15.5) Hematocrit 26.7 % (36.0-47.0) Mean Corpuscular Volume 88 fL (79-100) Mean Corpuscular Hemoglobin 29 pg (25-35) Mean Corpuscular Hemoglobin Concent 33 g/dL (31-37) Red Cell Distribution Width 17.9 % (11.5-14.5) Platelet Count 417 x10^3/uL (140-400) Neutrophils (%) (Auto) 77 % (31-73) Lymphocytes (%) (Auto) 13 % (24-48) Monocytes (%) (Auto) 9 % (0-9) Eosinophils (%) (Auto) 0 % (0-3) Basophils (%) (Auto) 1 % (0-3) Neutrophils # (Auto) 5.2 x10^3uL (1.8-7.7) Lymphocytes # (Auto) 0.9 x10^3/uL (1.0-4.8) Monocytes # (Auto) 0.6 x10^3/uL (0.0-1.1) Eosinophils # (Auto) 0.0 x10^3/uL (0.0-0.7) Basophils # (Auto) 0.0 x10^3/uL (0.0-0.2) Sodium Level 139 mmol/L (136-145) Potassium Level 3.9 mmol/L (3.5-5.1) Chloride Level 103 mmol/L (98-107) Carbon Dioxide Level 28 mmol/L (21-32) Anion Gap 8 (6-14) Blood Urea Nitrogen 23 mg/dL (7-20) Creatinine 0.7 mg/dL (0.6-1.0) Estimated GFR (Cockcroft-Gault) 82.5 Glucose Level 244 mg/dL (70-99) Calcium Level 8.2 mg/dL (8.5-10.1) Problem List Problems Medical Problems: (1) Abdominal abscess Status: Acute (2) Abdominal pain Status: Acute Assessment/Plan s/p bowel resection continue supportive care Problems: LIZ DIXON MD Apr 12, 2017 12:20
--- NOTE | 2017-04-12 12:20 | PDOC ---
SUBJECTIVE Subjective Back on bipap this AM. Still increased work of breathing. Requiring levophed. OBJECTIVE Objective Reviewed. Vital Signs Vital Signs Date Time Temp Pulse Resp B/P (MAP) Pulse Ox O2 Delivery O2 Flow Rate FiO2 04/12/17 12:01 99 BiPAP/CPAP 04/12/17 11:00 99 37 103/52 (69) 99 BiPAP/CPAP 04/12/17 10:00 99 36 102/46 (64) 99 BiPAP/CPAP 04/12/17 09:31 99 BiPAP/CPAP 04/12/17 09:00 99 37 101/54 (70) 99 BiPAP/CPAP 04/12/17 08:00 99.2 98 35 116/51 (72) 98 BiPAP/CPAP 99.2 04/12/17 08:00 Bi-pap 04/12/17 07:20 99 BiPAP/CPAP 04/12/17 07:00 99 34 112/52 (72) 99 BiPAP/CPAP 04/12/17 06:00 90 34 90/46 (61) 99 BiPAP/CPAP 04/12/17 05:26 99 BiPAP/CPAP 04/12/17 05:02 34 99 BiPAP/CPAP 04/12/17 05:00 88 32 108/49 (68) 98 BiPAP/CPAP 04/12/17 04:02 40 97 BiPAP/CPAP 04/12/17 04:00 Bi-pap 04/12/17 04:00 98.5 96 38 117/50 (72) 97 BiPAP/CPAP 98.5 04/12/17 03:27 98 BiPAP/CPAP 04/12/17 03:00 85 35 117/53 (74) 96 BiPAP/CPAP 04/12/17 02:30 34 98 BiPAP/CPAP 04/12/17 02:02 98 BiPAP/CPAP 04/12/17 02:00 81 34 119/47 (71) 98 BiPAP/CPAP 04/12/17 02:00 43 98 BiPAP/CPAP 04/12/17 01:00 81 30 116/49 (71) 99 BiPAP/CPAP 04/12/17 00:45 118/56 (76) 04/12/17 00:00 99.1 83 29 131/54 (79) 99 BiPAP/CPAP 99.1 04/11/17 23:59 Bi-pap 04/11/17 23:11 98 BiPAP/CPAP 04/11/17 23:00 97 33 90/45 (60) 99 BiPAP/CPAP 04/11/17 22:30 88 33 128/56 (80) 100 BiPAP/CPAP 04/11/17 22:00 94 30 131/57 (81) 98 BiPAP/CPAP 04/11/17 22:00 38 98 BiPAP/CPAP 04/11/17 21:00 101 32 135/53 (80) 97 BiPAP/CPAP 04/11/17 20:00 99.3 105 38 130/58 (82) 97 BiPAP/CPAP 99.3 04/11/17 20:00 Bi-pap 04/11/17 19:46 96 BiPAP/CPAP 04/11/17 19:00 106 39 134/48 (76) 96 BiPAP/CPAP 04/11/17 18:08 99 BiPAP/CPAP 04/11/17 17:41 113 56 99/49 (66) 97 BiPAP/CPAP 04/11/17 17:00 114 50 123/48 (73) 96 BiPAP/CPAP 04/11/17 16:45 99 BiPAP/CPAP 04/11/17 16:15 108 48 135/50 (78) 93 BiPAP/CPAP 04/11/17 16:00 112 48 136/53 (80) 93 BiPAP/CPAP 04/11/17 16:00 Bi-pap 04/11/17 16:00 5.0 04/11/17 15:50 104 37 64/26 (39) 99 BiPAP/CPAP 04/11/17 15:30 100 40 80/45 (57) 100 BiPAP/CPAP 04/11/17 15:26 99 BiPAP/CPAP 04/11/17 15:00 104 42 72/39 (50) 97 BiPAP/CPAP 04/11/17 14:00 106 42 85/56 (66) 98 BiPAP/CPAP 04/11/17 13:00 102 44 95/54 (68) 100 BiPAP/CPAP 04/11/17 12:40 99 BiPAP/CPAP I & O Intake and Output 04/12/17 07:00 Intake Total 2037.53 ml Output Total 1442 ml Balance 595.53 ml IV Total 2037.53 ml Output Urine Total 992 ml Gastric Drainage Total 100 ml Drainage Total 350 ml PHYSICAL EXAM Physical Exam Alert, oriented Nasal wound covered with bandage, on bipap Increased work of breathing, crackles in bases Abd wounds covered with dressing, dehiscence, ostomy with output 2+ pitting edema bilateral lower extremities ASSESSMENT/PLAN Assessment/Plan [id number] respiratory failure requiring BIPAP intermittently Status post laparoscopic converted to open exploration for extensive lysis of adhesion, removal of old mesh, subtotal colectomy, small bowel resection and incisional hernia repair.Now with brown drainage from wound. entero-cutaneous fistula/ abscess Obesity Enterocutaneous fistula. Abdominal abscess. Ventral hernia, status post repair. Anemia Swelling LE Multiple wounds (nasal bridge from bipap, dehiscence of abdominal wound, etc.) Severe malnutrition Diabetes mellitus Elevated TSH, normal T4, low T3 - sick euthyroid Increased Levemir to 24U QHS. Follow up on goals of care with patient and son pending change in clinical status. Recommended DNR/DNI status given her desire to "not live on a machine". They will consider. No changes at this time. Palliative care following. Problems: COMMENT Lab Laboratory Tests Test 04/11/17 16:25 04/11/17 16:48 04/12/17 05:37 O2 Saturation 92 % (92-99) Arterial Blood pH 7.53 (7.35-7.45) Arterial Blood pCO2 at Patient Temp 31 mmHg (35-46) Arterial Blood pO2 at Patient Temp 59 mmHg (65-108) Arterial Blood HCO3 25 mmol/L (21-28) Arterial Blood Base Excess 3 mmol/L (-3-3) FiO2 35 Glucose (Fingerstick) 176 mg/dL (70-99) White Blood Count 6.7 x10^3/uL (4.0-11.0) Red Blood Count 3.04 x10^6/uL (3.50-5.40) Hemoglobin 8.7 g/dL (12.0-15.5) Hematocrit 26.7 % (36.0-47.0) Mean Corpuscular Volume 88 fL (79-100) Mean Corpuscular Hemoglobin 29 pg (25-35) Mean Corpuscular Hemoglobin Concent 33 g/dL (31-37) Red Cell Distribution Width 17.9 % (11.5-14.5) Platelet Count 417 x10^3/uL (140-400) Neutrophils (%) (Auto) 77 % (31-73) Lymphocytes (%) (Auto) 13 % (24-48) Monocytes (%) (Auto) 9 % (0-9) Eosinophils (%) (Auto) 0 % (0-3) Basophils (%) (Auto) 1 % (0-3) Neutrophils # (Auto) 5.2 x10^3uL (1.8-7.7) Lymphocytes # (Auto) 0.9 x10^3/uL (1.0-4.8) Monocytes # (Auto) 0.6 x10^3/uL (0.0-1.1) Eosinophils # (Auto) 0.0 x10^3/uL (0.0-0.7) Basophils # (Auto) 0.0 x10^3/uL (0.0-0.2) Sodium Level 139 mmol/L (136-145) Potassium Level 3.9 mmol/L (3.5-5.1) Chloride Level 103 mmol/L (98-107) Carbon Dioxide Level 28 mmol/L (21-32) Anion Gap 8 (6-14) Blood Urea Nitrogen 23 mg/dL (7-20) Creatinine 0.7 mg/dL (0.6-1.0) Estimated GFR (Cockcroft-Gault) 82.5 Glucose Level 244 mg/dL (70-99) Calcium Level 8.2 mg/dL (8.5-10.1) STEPHON BLAND MD Apr 12, 2017 12:20
--- NOTE | 2017-04-12 12:55 | PDOC2 ---
PALLIATIVE CARE Palliative Care Note Palliative Care Patient on BiPap. Refusing to take off for RT. Patient wants to speak to family after discussing resuscitation with patient. Understands respiratory system compromised and anxiety issues may be impacting her breathing. Will follow-up with family. KATI ROSE Apr 12, 2017 12:55
[2017-04-12] MEDS: TPN PER PHARMACY MC PRN ×2 (13:52→13:57)
[2017-04-12] MEDS: MICAFUNGIN 100 MG in IV NORMAL SALINE 100ML 100 ML IV SCH (14:20)
--- NOTE | 2017-04-12 18:14 | PDOC ---
PULMONARY PROGRESS NOTES Subjective PT TRANSFERRED TO ICU 04/09 NOW BIPAP FEELS BETTER Vitals Vital Signs Date Time Temp Pulse Resp B/P (MAP) Pulse Ox O2 Delivery O2 Flow Rate FiO2 04/12/17 17:10 97 BiPAP/CPAP 04/12/17 11:00 99 37 103/52 (69) 04/12/17 08:00 99.2 99.2 04/11/17 16:00 5.0 General: Alert Lungs: Clear Cardiovascular: S1, S2 Abdomen: Soft, Other (continues to have drainage from the abdo wound,lower incision site,brownish fluid) Neuro Exam: Alert Extremities: Other (1+edema) Skin: Warm Labs Laboratory Tests Test 04/11/17 05:40 04/11/17 07:34 04/11/17 11:10 04/11/17 16:25 White Blood Count 6.2 x10^3/uL (4.0-11.0) Red Blood Count 2.90 x10^6/uL (3.50-5.40) Hemoglobin 8.2 g/dL (12.0-15.5) Hematocrit 25.4 % (36.0-47.0) Mean Corpuscular Volume 88 fL (79-100) Mean Corpuscular Hemoglobin 28 pg (25-35) Mean Corpuscular Hemoglobin Concent 32 g/dL (31-37) Red Cell Distribution Width 17.5 % (11.5-14.5) Platelet Count 358 x10^3/uL (140-400) Neutrophils (%) (Auto) 82 % (31-73) Lymphocytes (%) (Auto) 10 % (24-48) Monocytes (%) (Auto) 8 % (0-9) Eosinophils (%) (Auto) 0 % (0-3) Basophils (%) (Auto) 0 % (0-3) Neutrophils # (Auto) 5.1 x10^3uL (1.8-7.7) Lymphocytes # (Auto) 0.6 x10^3/uL (1.0-4.8) Monocytes # (Auto) 0.5 x10^3/uL (0.0-1.1) Eosinophils # (Auto) 0.0 x10^3/uL (0.0-0.7) Basophils # (Auto) 0.0 x10^3/uL (0.0-0.2) Sodium Level 138 mmol/L (136-145) Potassium Level 3.7 mmol/L (3.5-5.1) Chloride Level 102 mmol/L (98-107) Carbon Dioxide Level 28 mmol/L (21-32) Anion Gap 8 (6-14) Blood Urea Nitrogen 23 mg/dL (7-20) Creatinine 0.7 mg/dL (0.6-1.0) Estimated GFR (Cockcroft-Gault) 82.5 Glucose Level 201 mg/dL (70-99) Calcium Level 8.0 mg/dL (8.5-10.1) Free Thyroxine 0.97 ng/dL (0.76-1.46) Free Triiodothyronine (T3) pg/mL 0.93 pg/mL (2.18-3.98) Glucose (Fingerstick) 191 mg/dL (70-99) 187 mg/dL (70-99) O2 Saturation 92 % (92-99) Arterial Blood pH 7.53 (7.35-7.45) Arterial Blood pCO2 at Patient Temp 31 mmHg (35-46) Arterial Blood pO2 at Patient Temp 59 mmHg (65-108) Arterial Blood HCO3 25 mmol/L (21-28) Arterial Blood Base Excess 3 mmol/L (-3-3) FiO2 35 Test 04/11/17 16:48 04/12/17 05:37 04/12/17 13:11 Glucose (Fingerstick) 176 mg/dL (70-99) 258 mg/dL (70-99) White Blood Count 6.7 x10^3/uL (4.0-11.0) Red Blood Count 3.04 x10^6/uL (3.50-5.40) Hemoglobin 8.7 g/dL (12.0-15.5) Hematocrit 26.7 % (36.0-47.0) Mean Corpuscular Volume 88 fL (79-100) Mean Corpuscular Hemoglobin 29 pg (25-35) Mean Corpuscular Hemoglobin Concent 33 g/dL (31-37) Red Cell Distribution Width 17.9 % (11.5-14.5) Platelet Count 417 x10^3/uL (140-400) Neutrophils (%) (Auto) 77 % (31-73) Lymphocytes (%) (Auto) 13 % (24-48) Monocytes (%) (Auto) 9 % (0-9) Eosinophils (%) (Auto) 0 % (0-3) Basophils (%) (Auto) 1 % (0-3) Neutrophils # (Auto) 5.2 x10^3uL (1.8-7.7) Lymphocytes # (Auto) 0.9 x10^3/uL (1.0-4.8) Monocytes # (Auto) 0.6 x10^3/uL (0.0-1.1) Eosinophils # (Auto) 0.0 x10^3/uL (0.0-0.7) Basophils # (Auto) 0.0 x10^3/uL (0.0-0.2) Sodium Level 139 mmol/L (136-145) Potassium Level 3.9 mmol/L (3.5-5.1) Chloride Level 103 mmol/L (98-107) Carbon Dioxide Level 28 mmol/L (21-32) Anion Gap 8 (6-14) Blood Urea Nitrogen 23 mg/dL (7-20) Creatinine 0.7 mg/dL (0.6-1.0) Estimated GFR (Cockcroft-Gault) 82.5 Glucose Level 244 mg/dL (70-99) Calcium Level 8.2 mg/dL (8.5-10.1) Laboratory Tests Test 04/12/17 05:37 04/12/17 13:11 White Blood Count 6.7 x10^3/uL (4.0-11.0) Red Blood Count 3.04 x10^6/uL (3.50-5.40) Hemoglobin 8.7 g/dL (12.0-15.5) Hematocrit 26.7 % (36.0-47.0) Mean Corpuscular Volume 88 fL (79-100) Mean Corpuscular Hemoglobin 29 pg (25-35) Mean Corpuscular Hemoglobin Concent 33 g/dL (31-37) Red Cell Distribution Width 17.9 % (11.5-14.5) Platelet Count 417 x10^3/uL (140-400) Neutrophils (%) (Auto) 77 % (31-73) Lymphocytes (%) (Auto) 13 % (24-48) Monocytes (%) (Auto) 9 % (0-9) Eosinophils (%) (Auto) 0 % (0-3) Basophils (%) (Auto) 1 % (0-3) Neutrophils # (Auto) 5.2 x10^3uL (1.8-7.7) Lymphocytes # (Auto) 0.9 x10^3/uL (1.0-4.8) Monocytes # (Auto) 0.6 x10^3/uL (0.0-1.1) Eosinophils # (Auto) 0.0 x10^3/uL (0.0-0.7) Basophils # (Auto) 0.0 x10^3/uL (0.0-0.2) Sodium Level 139 mmol/L (136-145) Potassium Level 3.9 mmol/L (3.5-5.1) Chloride Level 103 mmol/L (98-107) Carbon Dioxide Level 28 mmol/L (21-32) Anion Gap 8 (6-14) Blood Urea Nitrogen 23 mg/dL (7-20) Creatinine 0.7 mg/dL (0.6-1.0) Estimated GFR (Cockcroft-Gault) 82.5 Glucose Level 244 mg/dL (70-99) Calcium Level 8.2 mg/dL (8.5-10.1) Glucose (Fingerstick) 258 mg/dL (70-99) Medications Active Scripts Medications Dose Route/Sig Max Daily Dose Days Date Category Flagyl (Metronidazole) 500 Mg Tablet 1 Tab PO BID 03/01/17 Reported Cefpodoxime Proxetil 200 Mg Tablet 1 Tab PO BID 03/01/17 Reported Ferrous Sulfate 325 Mg Tablet 1 Tab PO DAILY 02/23/17 Reported Lasix (Furosemide) 40 Mg Tablet 40 Mg PO QODAY 02/23/17 Reported Potassium Chloride 10 Meq Capsule.er 10 Meq PO QODAY 02/23/17 Reported Metoprolol Tartrate 25 Mg Tablet 12.5 Mg PO BID 01/31/17 Reported Atorvastatin Calcium 40 Mg Tablet 40 Mg PO HS 01/31/17 Reported Clopidogrel (Clopidogrel Bisulfate) 75 Mg Tablet 1 Tab PO DAILY 08/24/15 Reported Diclofenac Sodium 75 Mg Tablet.dr 75 Mg PO DAILY 12/21/14 Reported Ranitidine Hcl 150 Mg Tablet 1 Tab PO BID 12/21/14 Reported Aspirin 81 Mg Tab.chew 1 Tab PO DAILY 04/15/14 Reported Impression . 1. [id number] respiratory failure, expected status post surgical intervention. SUBJECTIVE dyspnea/ Comfortable on BIPAP. suspect due to abdominal process 2. Status post laparoscopic converted to open exploration for extensive lysis of adhesion, removal of old mesh, subtotal colectomy, small bowel resection and incisional hernia repair.Now with brown drainage from wound. entero-cutaneous fistula/ abscess 3. Obesity, body mass index of 35. 4. Leukocytosis. 5. Enterocutaneous fistula. Abdominal abscess, measuring 6.4 x 4.9 cm. s/p drain 03/12. Klebsiella ( R to Zosyn, S Cipro/Levo), VRE (R PCN) and PSAE ( R to ticarcillin only otherwise sensitive, S Cipro/Levo) and C tropicalis -h/o Strep anginosis and Bacteroides 6. Fever. 7. Abdominal abscess. 8. Ventral hernia, status post repair. 9. Bilateral effusions due to low oncotic pressure/ repeat cxr 04/02 with volume loss bases, no sig. fluid to tap, small effusions on ct 04/05 10. Anxiety disorder Palliative Care Spoke with patient and son Chris. Patient off BiPap ---feels better. RR 32-34. Reviewed conversations patient and son had with physicians. Patient wants to continue to try to get better. Son Chris supportive of her wish. Understands that this will need to be evaluated closely as respiratory condition could decline rapidly. Encouraged patient and son to have conversation about any limitations of care that she would want. They understand that recovery could be a long process. Will continue to follow closely. Chris will be at work tomorrow but available by phone if anything changes. Plan . SPOKE WITH PAT WILL CONTINUE AGGRESSIVE MEASURES WILL USE BIPAP QHS AND PRN, I SPOKE WITH PT ON SEVERAL OCCASION AND TRIED TO INFORM HER THAT I DO NOT RECOMMEND INTUBATION REPEAT CT ABDOMEN/PELVIS REVIEWED/ SMALL EFFUSIONS, DOES NOT NEED TAP LASIX PRN VENOUS DOPPLER NEGATIVE/ CT NEGATIVE FOR PE MONITOR PLATELET / MUCH IMPROVED ANXIETY/ ON SCHEDULED ATIVAN D/W SON 04/10/PT NOW A FULL CODE I WOULD FAVOR NO INTUBATION I THINK IF SHE GET INTUBATED SHE WILL END UP WITH TRACH AND ASSISTED NON [facility] IFEOMA SEXTON MD Apr 12, 2017 18:14
[2017-04-12] MEDS: IV NORMAL SALINE 1000ML BAG 1,000 ML IV SCH (20:43)
[2017-04-12] MEDS ORDERED: INSULIN DETEMIR 300 UNITS/3 ML INSULN.PEN. SQ SCH (21:00)
[2017-04-12] MEDS ORDERED: AMINO ACIDS IV SCH ×10 (22:00)
[2017-04-12] MEDS ORDERED: TOTAL PARENTERAL NUTRITION IV SCH ×10 (22:00)
[2017-04-12] MEDS ORDERED: DEXTROSE 70% IV SCH ×10 (22:00)
[2017-04-12] MEDS ORDERED: [UNRECOGNIZED DRUG - OTHER] IV SCH ×10 (22:00)
[2017-04-13] VITALS (24 sets, daily range): BP systolic 64–138; BP diastolic 37–73
[2017-04-13] MEDS: NOREPINEPHRIN PREMIX 250 ML IV PRN ×2 (01:01→14:04)
[2017-04-13] MEDS: fentaNYL PF VIAL 100 MCG/2 ML VIAL IV PRN ×4 (01:01→21:46)
[2017-04-13] MEDS: HYDROcodone/APAP 7.5/325MG 1 TAB TABLET PO PRN ×4 (03:33→23:15)
[2017-04-13] MEDS: CEFEPIME HCL IV Push 1 GM VIAL. IVP SCH ×3 (05:35→21:45)
[2017-04-13 05:59] LABS: BASO % 0 % (0-3); EOS % 0 % (0-3); HEMATOCRIT 28.1 % (36.0-47.0); LYMPH # 1.1 x10^3/uL (1.0-4.8); LYMPH % 15 % (24-48); MEAN CORPUSCULAR HEMOGLOBIN 28 pg (25-35); MEAN CORPUSCULAR HGB CONC 32 g/dL (31-37); MEAN CORPUSCULAR VOLUME 87 fL (79-100); MONO % 7 % (0-9); NEUT % 78 % (31-73); PLATELET COUNT 421 x10^3/uL (140-400); RED BLOOD COUNT 3.22 x10^6/uL (3.50-5.40); RED CELL DISTRIBUTION WIDTH 18.1 % (11.5-14.5); WHITE BLOOD COUNT 7.4 x10^3/uL (4.0-11.0)
[2017-04-13 06:22] LABS: ALBUMIN 0.9 g/dL (3.4-5.0); ALBUMIN/GLOBULIN RATIO 0.2 (1.0-1.7); CREATININE 0.7 mg/dL (0.6-1.0); GFR 82.5; POTASSIUM 4.3 mmol/L (3.5-5.1); TOTAL BILIRUBIN 0.3 mg/dL (0.2-1.0); TOTAL PROTEIN 5.2 g/dL (6.4-8.2)
[2017-04-13 07:48] LABS: MAGNESIUM 2.5 mg/dL (1.8-2.4); PHOSPHORUS 2.8 mg/dL (2.6-4.7)
--- NOTE | 2017-04-13 07:59 | PDOC ---
Infectious Disease Note Subjective Subjective States ok. but has some mild pain denies SOA or CP or generalized aches TPN Unable to get off Bipap for very long 04/12 (to eat a few bites) per nursing and on all night ROS ROS GEN: Denies fevers, chills, sweats HEENT: Denies blurred vision, sore throat CV: Denies chest pain RESP: Denies shortness of air, cough GI: Denies n/v/d NEURO: Denies confusion, dizziness MSK: Denies weakness, joint pain/swelling Vital Sign Vital Signs Vital Signs Date Time Temp Pulse Resp B/P (MAP) Pulse Ox O2 Delivery O2 Flow Rate FiO2 04/13/17 05:13 101/58 (72) 04/13/17 05:07 97 BiPAP/CPAP 04/13/17 05:00 97 37 04/13/17 04:00 99.6 99.6 Physical Exam PHYSICAL EXAM GENERAL: Propped up in bed, appears comfortable HEENT: PERRL, on BiPAP LUNGS: Min crackles CV: S1 and S2 ABD: BS active, soft, NT light palpation. Ostomy + output, distal incision dehiscence, + drainage. + drain intact. Mild edema in abd area : [place] EXT: 1 plus edema BLE, no cyanosis SKIN: Without rash, warm to touch [employer]IP[employer]ARD [employer]ER: Alert, oriented, following commands RUE-PICC. clean Labs Lab Laboratory Tests Test 04/12/17 13:11 04/13/17 05:40 Glucose (Fingerstick) 258 mg/dL (70-99) White Blood Count 7.4 x10^3/uL (4.0-11.0) Red Blood Count 3.22 x10^6/uL (3.50-5.40) Hemoglobin 9.0 g/dL (12.0-15.5) Hematocrit 28.1 % (36.0-47.0) Mean Corpuscular Volume 87 fL (79-100) Mean Corpuscular Hemoglobin 28 pg (25-35) Mean Corpuscular Hemoglobin Concent 32 g/dL (31-37) Red Cell Distribution Width 18.1 % (11.5-14.5) Platelet Count 421 x10^3/uL (140-400) Neutrophils (%) (Auto) 78 % (31-73) Lymphocytes (%) (Auto) 15 % (24-48) Monocytes (%) (Auto) 7 % (0-9) Eosinophils (%) (Auto) 0 % (0-3) Basophils (%) (Auto) 0 % (0-3) Neutrophils # (Auto) 5.8 x10^3uL (1.8-7.7) Lymphocytes # (Auto) 1.1 x10^3/uL (1.0-4.8) Monocytes # (Auto) 0.5 x10^3/uL (0.0-1.1) Eosinophils # (Auto) 0.0 x10^3/uL (0.0-0.7) Basophils # (Auto) 0.0 x10^3/uL (0.0-0.2) Sodium Level 138 mmol/L (136-145) Potassium Level 4.3 mmol/L (3.5-5.1) Chloride Level 103 mmol/L (98-107) Carbon Dioxide Level 28 mmol/L (21-32) Anion Gap 7 (6-14) Blood Urea Nitrogen 20 mg/dL (7-20) Creatinine 0.7 mg/dL (0.6-1.0) Estimated GFR (Cockcroft-Gault) 82.5 BUN/Creatinine Ratio 29 (6-20) Glucose Level 272 mg/dL (70-99) Calcium Level 8.0 mg/dL (8.5-10.1) Phosphorus Level 2.8 mg/dL (2.6-4.7) Magnesium Level 2.5 mg/dL (1.8-2.4) Total Bilirubin 0.3 mg/dL (0.2-1.0) Aspartate Amino Transf (AST/SGOT) 14 U/L (15-37) Alanine Aminotransferase (ALT/SGPT) 8 U/L (14-59) Alkaline Phosphatase 72 U/L (46-116) Total Protein 5.2 g/dL (6.4-8.2) Albumin 0.9 g/dL (3.4-5.0) Albumin/Globulin Ratio 0.2 (1.0-1.7) Micro Klebsiella pneumoniae Moderate growth AEROBIC RES 2 Final Yeast Moderate growth Request for further identification must be made within 1 week. 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 [employer] SPEC: [id number] PATIENT: SAFIA MIRANDA [id number] ( Continued) Procedure Result ANTIMICROBIAL SUSCEPTIBILITY Final Comment S = Susceptible; I = Intermediate; R = Resistant P = Positive; N = Negative MICS are expressed in micrograms per mL Antibiotic RSLT#1 RSLT#2 RSLT#3 RSLT#4 Amikacin S Amoxicillin/Clavulanic Acid S Ampicillin R Cefepime S S Ceftazidime S Ceftriaxone S Cefuroxime I Ciprofloxacin S S Ertapenem S Gentamicin S S Imipenem S S Levofloxacin S S Linezolid S Meropenem S Penicillin R Piperacillin R S Quinupristin/Dalfopristin S Tetracycline S Ticarcillin R Tobramycin S S Trimethoprim/Sulfa S Vancomycin R Performed at: [address] [id number] Rv Service Technician: Ashia Rogers MD, Phone: [phone] SUSCEPTIBILITY TESTING AEROBIC Final Final report SUSCEPTIBILITY TESTING AEROBIC Final Letitia tropicalis Letitia tropicalis susceptibility results: 5-Flucytosine 0.12 mcg/mL Sensitive Itraconazole 1 mcg/mL Resistant Fluconazole 1 mcg/mL Sensitive Voriconazole 0.12 mcg/mL Sensitive Performed at: [facility] [address]Just [address] CostAnaktuv[place], [place] [id number] Rv Service Technician: Ashia Rogers MD, Phone: [phone] Objective Assessment [id number] respiratory failure, now on BiPAP but appears comfortable - unable to come off 04/11 - pleural effusions -stable and small/ LE U/S 04/08 neg. ECHO 03/22 EF 40 - 45 %. Repeat 04/10 45 % Hypotension - now on 13 of Levophed Severe Protein malnutrition Decreasing UOP - improved Fever, UA neg - some better Elevated TSH - T4 in normal range Acute Anemia - s/p PRBCs one unit 04/08 s/p lap converted to open exploration, JAIRO, removal of infected mesh, subtotal colectomy, SBR and hernia repair, 03/24. 10.0 x 5.5 x 18.0 cm fluid collection with air-fluid levels in the right lower quadrant. s/p drain placement, 04/06. 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 s/p drain 03/12. Klebsiella ( R to Zosyn, S Cipro/Levo), VRE (R PCN) and PSAE ( R to ticarcillin only otherwise sensitive, S Cipro/Levo) and C tropicalis -h/o Strep anginosis and Bacteroides Ventral hernia DM HTN PCN allergy/amox also - hives and swelling Elevated CK - improved Plan Plan of Care F/u repeat Blood cults given need for Levophed 04/11 Cont Micafungin, Flagyl and Cefepime 04/07 D/c'd Dapto begin Zyvox to see if may help with resp status 04/11 f/u cultures and monitor CBC/temp Supportive care D/w nursing - requested some pain med Notes reviewed Guarded prognosis overall given resp failure/deconditioning and worsening wounds TERRA BEACH MD Apr 13, 2017 07:59
[2017-04-13] MEDS: METOPROLOL SUCC 24HR ER 25 MG TAB.ER.24H. PO SCH (09:00)
[2017-04-13] MEDS: ENOXAPARIN 40 MG/0.4 ML SYRINGE. SQ SCH (09:00)
--- NOTE | 2017-04-13 09:05 | PDOC ---
PROGRESS NOTES Subjective Subjective HPI - f/u of Thrombocytosis ROS -on BIPAP Objective Objective Vital Signs Date Time Temp Pulse Resp B/P (MAP) Pulse Ox O2 Delivery O2 Flow Rate FiO2 04/13/17 08:38 99 BiPAP/CPAP 04/13/17 05:13 101/58 (72) 04/13/17 05:00 97 37 04/13/17 04:00 99.6 99.6 04/11/17 16:00 5.0 Intake and Output 04/13/17 07:00 Intake Total 2646 ml Output Total 2165 ml Balance 481 ml Intake Oral 200 ml IV Total 2446 ml Output Urine Total 1890 ml Drainage Total 275 ml Physical Exam General: mild distress Lungs: Other (on BIPAP) Assessment Assessment Problems Medical Problems: (1) Abdominal abscess Status: Acute (2) Abdominal pain Status: Acute A/P: 1. Thrombocytosis reactive - previously thrombocytopenia.Resolved. Plt count now 421. 2. Anemia. Most likely multifactorial. Iron studies are suggestive of anemia of chronic disease. /B12 normal. Hb 9.0 monitor and transfuse as needed. 3. Abscess. Management as per primary/surgery 4. Status post laparoscopic converted to open exploration for extensive lysis of adhesion, removal of old mesh, subtotal colectomy, small bowel resection and incisional hernia repair. 5. [id number] respiratory failure. Persistent dyspnea/ now on BIPAP - appreciate pulm f/u. Comment Review of Relevant I have reviewed the following items chito (where applicable) has been applied. Labs Laboratory Tests Test 04/11/17 11:10 04/11/17 16:25 04/11/17 16:48 04/12/17 05:37 Glucose (Fingerstick) 187 mg/dL (70-99) 176 mg/dL (70-99) O2 Saturation 92 % (92-99) Arterial Blood pH 7.53 (7.35-7.45) Arterial Blood pCO2 at Patient Temp 31 mmHg (35-46) Arterial Blood pO2 at Patient Temp 59 mmHg (65-108) Arterial Blood HCO3 25 mmol/L (21-28) Arterial Blood Base Excess 3 mmol/L (-3-3) FiO2 35 White Blood Count 6.7 x10^3/uL (4.0-11.0) Red Blood Count 3.04 x10^6/uL (3.50-5.40) Hemoglobin 8.7 g/dL (12.0-15.5) Hematocrit 26.7 % (36.0-47.0) Mean Corpuscular Volume 88 fL (79-100) Mean Corpuscular Hemoglobin 29 pg (25-35) Mean Corpuscular Hemoglobin Concent 33 g/dL (31-37) Red Cell Distribution Width 17.9 % (11.5-14.5) Platelet Count 417 x10^3/uL (140-400) Neutrophils (%) (Auto) 77 % (31-73) Lymphocytes (%) (Auto) 13 % (24-48) Monocytes (%) (Auto) 9 % (0-9) Eosinophils (%) (Auto) 0 % (0-3) Basophils (%) (Auto) 1 % (0-3) Neutrophils # (Auto) 5.2 x10^3uL (1.8-7.7) Lymphocytes # (Auto) 0.9 x10^3/uL (1.0-4.8) Monocytes # (Auto) 0.6 x10^3/uL (0.0-1.1) Eosinophils # (Auto) 0.0 x10^3/uL (0.0-0.7) Basophils # (Auto) 0.0 x10^3/uL (0.0-0.2) Sodium Level 139 mmol/L (136-145) Potassium Level 3.9 mmol/L (3.5-5.1) Chloride Level 103 mmol/L (98-107) Carbon Dioxide Level 28 mmol/L (21-32) Anion Gap 8 (6-14) Blood Urea Nitrogen 23 mg/dL (7-20) Creatinine 0.7 mg/dL (0.6-1.0) Estimated GFR (Cockcroft-Gault) 82.5 Glucose Level 244 mg/dL (70-99) Calcium Level 8.2 mg/dL (8.5-10.1) Test 04/12/17 13:11 04/13/17 05:40 Glucose (Fingerstick) 258 mg/dL (70-99) White Blood Count 7.4 x10^3/uL (4.0-11.0) Red Blood Count 3.22 x10^6/uL (3.50-5.40) Hemoglobin 9.0 g/dL (12.0-15.5) Hematocrit 28.1 % (36.0-47.0) Mean Corpuscular Volume 87 fL (79-100) Mean Corpuscular Hemoglobin 28 pg (25-35) Mean Corpuscular Hemoglobin Concent 32 g/dL (31-37) Red Cell Distribution Width 18.1 % (11.5-14.5) Platelet Count 421 x10^3/uL (140-400) Neutrophils (%) (Auto) 78 % (31-73) Lymphocytes (%) (Auto) 15 % (24-48) Monocytes (%) (Auto) 7 % (0-9) Eosinophils (%) (Auto) 0 % (0-3) Basophils (%) (Auto) 0 % (0-3) Neutrophils # (Auto) 5.8 x10^3uL (1.8-7.7) Lymphocytes # (Auto) 1.1 x10^3/uL (1.0-4.8) Monocytes # (Auto) 0.5 x10^3/uL (0.0-1.1) Eosinophils # (Auto) 0.0 x10^3/uL (0.0-0.7) Basophils # (Auto) 0.0 x10^3/uL (0.0-0.2) Sodium Level 138 mmol/L (136-145) Potassium Level 4.3 mmol/L (3.5-5.1) Chloride Level 103 mmol/L (98-107) Carbon Dioxide Level 28 mmol/L (21-32) Anion Gap 7 (6-14) Blood Urea Nitrogen 20 mg/dL (7-20) Creatinine 0.7 mg/dL (0.6-1.0) Estimated GFR (Cockcroft-Gault) 82.5 BUN/Creatinine Ratio 29 (6-20) Glucose Level 272 mg/dL (70-99) Calcium Level 8.0 mg/dL (8.5-10.1) Phosphorus Level 2.8 mg/dL (2.6-4.7) Magnesium Level 2.5 mg/dL (1.8-2.4) Total Bilirubin 0.3 mg/dL (0.2-1.0) Aspartate Amino Transf (AST/SGOT) 14 U/L (15-37) Alanine Aminotransferase (ALT/SGPT) 8 U/L (14-59) Alkaline Phosphatase 72 U/L (46-116) Total Protein 5.2 g/dL (6.4-8.2) Albumin 0.9 g/dL (3.4-5.0) Albumin/Globulin Ratio 0.2 (1.0-1.7) Laboratory Tests Test 04/12/17 13:11 04/13/17 05:40 Glucose (Fingerstick) 258 mg/dL (70-99) White Blood Count 7.4 x10^3/uL (4.0-11.0) Red Blood Count 3.22 x10^6/uL (3.50-5.40) Hemoglobin 9.0 g/dL (12.0-15.5) Hematocrit 28.1 % (36.0-47.0) Mean Corpuscular Volume 87 fL (79-100) Mean Corpuscular Hemoglobin 28 pg (25-35) Mean Corpuscular Hemoglobin Concent 32 g/dL (31-37) Red Cell Distribution Width 18.1 % (11.5-14.5) Platelet Count 421 x10^3/uL (140-400) Neutrophils (%) (Auto) 78 % (31-73) Lymphocytes (%) (Auto) 15 % (24-48) Monocytes (%) (Auto) 7 % (0-9) Eosinophils (%) (Auto) 0 % (0-3) Basophils (%) (Auto) 0 % (0-3) Neutrophils # (Auto) 5.8 x10^3uL (1.8-7.7) Lymphocytes # (Auto) 1.1 x10^3/uL (1.0-4.8) Monocytes # (Auto) 0.5 x10^3/uL (0.0-1.1) Eosinophils # (Auto) 0.0 x10^3/uL (0.0-0.7) Basophils # (Auto) 0.0 x10^3/uL (0.0-0.2) Sodium Level 138 mmol/L (136-145) Potassium Level 4.3 mmol/L (3.5-5.1) Chloride Level 103 mmol/L (98-107) Carbon Dioxide Level 28 mmol/L (21-32) Anion Gap 7 (6-14) Blood Urea Nitrogen 20 mg/dL (7-20) Creatinine 0.7 mg/dL (0.6-1.0) Estimated GFR (Cockcroft-Gault) 82.5 BUN/Creatinine Ratio 29 (6-20) Glucose Level 272 mg/dL (70-99) Calcium Level 8.0 mg/dL (8.5-10.1) Phosphorus Level 2.8 mg/dL (2.6-4.7) Magnesium Level 2.5 mg/dL (1.8-2.4) Total Bilirubin 0.3 mg/dL (0.2-1.0) Aspartate Amino Transf (AST/SGOT) 14 U/L (15-37) Alanine Aminotransferase (ALT/SGPT) 8 U/L (14-59) Alkaline Phosphatase 72 U/L (46-116) Total Protein 5.2 g/dL (6.4-8.2) Albumin 0.9 g/dL (3.4-5.0) Albumin/Globulin Ratio 0.2 (1.0-1.7) Microbiology 04/07/17 Blood Culture - Final, Complete NO GROWTH AFTER 5 DAYS 04/06/17 Anaerobic/Aerobic Culture - Final, Complete 04/06/17 Anaerobic Culture Result 1 (KULDEEP) - Final, Complete 04/06/17 Anaerobic Culture Result 2 (KULDEEP) - Final, Complete 04/06/17 Aerobic Culture - Final, Complete 04/06/17 Aerobic Culture Result 1 (KULDEEP) - Final, Complete 04/06/17 Aerobic Culture Result 2 (KULDEEP) - Final, Complete 04/06/17 Aerobic Culture Result 3 (KULDEEP) - Final, Complete 04/06/17 Antimicrobic Susceptibility - Final, Complete 03/09/17 Urine Culture - Final, Complete 03/09/17 Urine Culture Result 1 (KULDEEP) - Final, Complete 03/12/17 Fungal Culture - Final, Complete 03/12/17 Fungal Culture Result 1 - Final, Complete Medications Current Medications Ondansetron HCl (Zofran) 4 mg 1X ONCE IV Last administered on 03/09/17 08:30 ; Start 03/09/17 at 08:15; Stop 03/09/17 at 08:16; Status DC Iohexol (Omnipaque 300 Mg/ml) 75 ml 1X ONCE IV Last administered on 03/09/17 08:50; Start 03/09/17 at 08:45; Stop 03/09/17 at 08:46; Status DC Info (Do NOT chart on this entry -- for MONITORING) 1 each PRN DAILY PRN MC SEE COMMENTS; Start 03/09/17 at 08:45; Stop 03/11/17 at 08:44; Status DC Ceftriaxone Sodium 50 ml @ 100 mls/hr 1X ONCE IV ; Start 03/09/17 at 09:30; Stop 03/09/17 at 09:55; Status DC Sodium Chloride 1,000 ml @ 1,000 mls/hr 1X ONCE IV Last administered on 09:55; Start 03/09/17 at 10:00; Stop 03/09/17 at 10:59; Status DC Ondansetron HCl (Zofran) 4 mg PRN Q8HRS PRN IV NAUSEA/VOMITING; Start 03/09/17 at 10:30; Stop 03/10/17 at 10:29; Status DC Meropenem 500 mg/ Sodium Chloride 50 ml @ 100 mls/hr Q8HRS IV Last administered on 03/16/17 06:09; Start 03/09/17 at 13:00; Stop 03/16/17 at 12: 59; Status DC Acetaminophen (Tylenol) 650 mg PRN QID PRN PO MILD PAIN / TEMP Last administered on 03/30/17 17:43; Start 03/09/17 at 20:30 Aspirin (Children'S Aspirin) 81 mg DAILY PO Last administered on 04/12/17 09: 40; Start 03/10/17 at 15:00 Clopidogrel Bisulfate (Plavix) 75 mg DAILY PO Last administered on 03/19/17 10:00; Start 03/10/17 at 15:00; Stop 03/22/17 at 09:10; Status DC Ferrous Sulfate (Feosol) 325 mg DAILY PO Last administered on 04/12/17 09:40; Start 03/10/17 at 15:00 Metoprolol Tartrate (Lopressor) 12.5 mg BID PO Last administered on 03/10/17 16:01; Start 03/10/17 at 15:00; Stop 03/10/17 at 21:01; Status DC Diclofenac Sodium (Voltaren) 75 mg DAILY PO Last administered on 03/23/17 09: 23; Start 03/10/17 at 14:30; Stop 03/29/17 at 10:50; Status DC Famotidine (Pepcid) 20 mg QHS PO Last administered on 03/24/17 21:20; Start 03/10/17 at 21:00; Stop 03/26/17 at 09:35; Status DC Glimepiride (Amaryl) 1 mg DAILY PO Last administered on 03/13/17 09:25; Start 03/11/17 at 15:00; Stop 03/13/17 at 17:02; Status DC Sodium Chloride 1,000 ml @ 100 mls/hr 1X ONCE IV Last administered on 21:00; Start 03/10/17 at 21:00; Stop 03/11/17 at 06:59; Status DC Lidocaine/Sodium Bicarbonate (Buffered Lidocaine 1%) 20 ml STK-MED ONCE IJ ; Start 03/12/17 at 13:05; Stop 03/12/17 at 13:06; Status DC Fentanyl Citrate (Fentanyl 2ml Vial) 100 mcg STK-MED ONCE .ROUTE ; Start at 13:20; Stop 03/12/17 at 13:21; Status DC Midazolam HCl (Versed) 2 mg STK-MED ONCE .ROUTE ; Start 03/12/17 at 13:20; Stop 03/12/17 at 13:21; Status DC Flumazenil (Romazicon) 0.5 mg STK-MED ONCE IV ; Start 03/12/17 at 13:20; Stop 03/12/17 at 13:21; Status DC Naloxone HCl (Narcan) 0.4 mg STK-MED ONCE .ROUTE ; Start 03/12/17 at 13:20; Stop 03/12/17 at 13:21; Status DC Lidocaine/Sodium Bicarbonate (Buffered Lidocaine 1%) 20 ml 1X ONCE IJ Last administered on 03/12/17 13:50; Start 03/12/17 at 13:30; Stop 03/12/17 at 13:33 ; Status DC Midazolam HCl (Versed) 2 mg 1X ONCE IV Last administered on 03/12/17 13:50; Start 03/12/17 at 13:30; Stop 03/12/17 at 13:33; Status DC Fentanyl Citrate (Fentanyl 2ml Vial) 100 mcg 1X ONCE IV Last administered on 03/12/17 13:50; Start 03/12/17 at 13:30; Stop 03/12/17 at 13:33; Status DC Lactobacillus Rhamnosus (Culturelle) 1 cap BID PO Last administered on 21:20; Start 03/12/17 at 21:00; Stop 03/25/17 at 21:06; Status DC Acetaminophen/ Hydrocodone Bitart (Lortab 7.5/325) 1 tab PRN Q6HRS PRN PO MODERATE - SEVERE PAIN Last administered on 04/13/17 03:33; Start 03/12/17 at 18:15 Ondansetron HCl (Zofran) 4 mg PRN Q6HRS PRN IV NAUSEA/VOMITING, 1ST CHOICE Last administered on 03/25/17 04:53; Start 03/13/17 at 09:00 Furosemide (Lasix) 40 mg QODAY PO Last administered on 03/22/17 09:39; Start 03/14/17 at 09:00; Stop 03/26/17 at 09:00; Status DC Glimepiride (Amaryl) 1 mg DAILY08 PO Last administered on 03/22/17 09:40; Start 03/14/17 at 08:00; Stop 03/23/17 at 08:52; Status DC Linezolid (Zyvox) 600 mg BID PO Last administered on 03/24/17 21:20; Start 03/14/17 at 13:15; Stop 03/25/17 at 10:49; Status DC Meropenem (Merrem) 500 mg Q8HRS IVP Last administered on 03/30/17 06:04; Start 03/16/17 at 14:00; Stop 03/30/17 at 07:49; Status DC Iohexol (Omnipaque 240 Mg/ml) 50 ml STK-MED ONCE .ROUTE ; Start 03/19/17 at 13: 11; Stop 03/19/17 at 13:12; Status DC Iohexol (Omnipaque 240 Mg/ml) 10 ml 1X ONCE IJ Last administered on 14:07; Start 03/19/17 at 14:00; Stop 03/19/17 at 14:01; Status DC Info (Do NOT chart on this entry -- for MONITORING) 1 each PRN DAILY PRN MC SEE COMMENTS; Start 03/19/17 at 14:00; Stop 03/21/17 at 13:59; Status DC Iohexol (Omnipaque 240 Mg/ml) 50 ml STK-MED ONCE .ROUTE ; Start 03/19/17 at 13: 55; Stop 03/19/17 at 13:56; Status DC Fluconazole (Diflucan) 200 mg DAILY PO Last administered on 03/23/17 09:24; Start 03/22/17 at 09:30; Stop 03/25/17 at 10:51; Status DC Metoprolol Succinate (Toprol Xl) 12.5 mg DAILY PO Last administered on 09:43; Start 03/23/17 at 09:00 Glimepiride (Amaryl) 0.5 mg DAILY08 PO ; Start 03/24/17 at 08:00; Stop at 13:05; Status DC Morphine Sulfate 1 mg PRN Q10MIN PRN IV SEVERE PAIN; Start 03/26/17 at 07:00; Stop 03/26/17 at 07:00; Status DC Ringer's Solution 1,000 ml @ 30 mls/hr Q24H IV ; Start 03/26/17 at 07:00; Stop 03/26/17 at 07:00; Status DC Lidocaine HCl (Xylocaine-Mpf 1% Vial) 2 ml PRN 1X PRN ID PRIOR TO IV START; Start 03/26/17 at 07:00; Stop 03/26/17 at 07:00; Status DC Hydromorphone HCl (Dilaudid) 0.5 mg PRN Q10MIN PRN IV SEV PAIN, Second choice; Start 03/26/17 at 07:00; Stop 03/27/17 at 06:59; Status Cancel Prochlorperazine Edisylate (Compazine) 5 mg PACU PRN PRN IV NAUSEA, MRX1 Last administered on 03/25/17 07:45; Start 03/26/17 at 07:00; Stop 03/26/17 at 07 :00; Status DC Morphine Sulfate 1 mg PRN Q10MIN PRN IV SEVERE PAIN; Start 03/24/17 at 07:45; Stop 03/25/17 at 07:44; Status DC Ringer's Solution 1,000 ml @ 30 mls/hr Q24H IV Last administered on t 14:15; Start 03/24/17 at 07:32; Stop 03/24/17 at 19:31; Status DC Lidocaine HCl (Xylocaine-Mpf 1% Vial) 2 ml 1X PRN PRN ID IV START; Start 03/24 at 07:45; Stop 03/25/17 at 07:44; Status DC Hydromorphone HCl (Dilaudid) 0.5 mg PRN Q10MIN PRN IV SEV PAIN, Second choice; Start 03/24/17 at 07:45; Stop 03/25/17 at 07:44; Status DC Prochlorperazine Edisylate (Compazine) 5 mg PACU PRN PRN IV NAUSEA, MRX1; Start 03/24/17 at 07:45; Stop 03/25/17 at 07:44; Status DC Bupivacaine HCl/ Epinephrine Bitart (Sensorcain-Mpf Epi 0.5%-1:[id number]) 30 ml STK -MED ONCE .ROUTE Last administered on 03/24/17t 15:56; Start 03/24/17 at 10: 28; Stop 03/24/17 at 10:29; Status DC Neostigmine Methylsulfate (Bloxiverz) 10 mg STK-MED ONCE .ROUTE ; Start at 14:38; Stop 03/24/17 at 14:39; Status DC Rocuronium [place] (Zemuron) 50 mg STK-MED ONCE .ROUTE ; Start 03/24/17 at 14: 38; Stop 03/24/17 at 14:39; Status DC Fentanyl Citrate (Fentanyl 2ml Vial) 100 mcg STK-MED ONCE .ROUTE ; Start at 14:38; Stop 03/24/17 at 14:39; Status DC Phenylephrine HCl 1 mg STK-MED ONCE IV ; Start 03/24/17 at 14:40; Stop at 14:41; Status DC Lidocaine HCl (Lidocaine Pf 2% Vial) 5 ml STK-MED ONCE .ROUTE ; Start 03/24/17 at 14:40; Stop 03/24/17 at 14:41; Status DC Dexamethasone Sodium Phosphate (Decadron) 20 mg STK-MED ONCE .ROUTE ; Start at 14:40; Stop 03/24/17 at 14:41; Status DC Ondansetron HCl (Zofran) 4 mg STK-MED ONCE .ROUTE ; Start 03/24/17 at 14:40; Stop 03/24/17 at 14:41; Status DC Propofol 20 ml @ As Directed STK-MED ONCE IV ; Start 03/24/17 at 14:40; Stop 03/24/17 at 14:41; Status DC Glycopyrrolate (Robinul) 1 mg STK-MED ONCE .ROUTE ; Start 03/24/17 at 15:11; Stop 03/24/17 at 15:12; Status DC Rocuronium [place] (Zemuron) 50 mg STK-MED ONCE .ROUTE ; Start 03/24/17 at 15: 53; Stop 03/24/17 at 15:54; Status DC Fentanyl Citrate (Fentanyl 2ml Vial) 100 mcg STK-MED ONCE .ROUTE ; Start at 16:01; Stop 03/24/17 at 16:02; Status DC Morphine Sulfate 10 mg STK-MED ONCE .ROUTE ; Start 03/24/17 at 16:02; Stop at 16:03; Status DC Albumin Human 500 ml @ As Directed STK-MED ONCE IV ; Start 03/24/17 at 17:03; Stop 03/24/17 at 17:04; Status DC Phenylephrine HCl (Corky-Synephrine Inj) 10 mg STK-MED ONCE .ROUTE ; Start at 17:27; Stop 03/24/17 at 17:28; Status DC Rocuronium [place] (Zemuron) 100 mg STK-MED ONCE .ROUTE ; Start 03/24/17 at 17: 57; Stop 03/24/17 at 17:58; Status DC Enoxaparin Sodium (Lovenox 40mg Syringe) 40 mg Q24H SQ Last administered on t 20:51; Start 03/24/17 at 20:45; Stop 03/26/17 at 19:34; Status DC Sodium Chloride (Normal Saline Flush) 3 ml QSHIFT PRN IV AFTER MEDS AND BLOOD DRAWS; Start 03/24/17 at 20:45 Ringer's Solution 1,000 ml @ 100 mls/hr Q10H IV Last administered on 12:32; Start 03/24/17 at 20:43; Stop 03/25/17 at 16:52; Status DC Naloxone HCl (Narcan) 0.4 mg PRN Q2MIN PRN IV SEE INSTRUCTIONS; Start at 20:45 Sodium Chloride 1,000 ml @ 25 mls/hr Q24H IV Last administered on 03/27/17 12:08; Start 03/24/17 at 20:43 Hydromorphone HCl 30 ml @ 0 mls/hr CONT PRN PRN IV PROTOCOL Last administered on 03/24/17 23:16; Start 03/24/17 at 20:45 Prochlorperazine Edisylate (Compazine) 5 mg PRN Q4HRS PRN IV NAUSEA/VOMITING, 2ND CHOICE; Start 03/25/17 at 07:45 Pantoprazole Sodium (PROTONIX VIAL for IV PUSH) 40 mg DAILYAC IVP Last administered on 04/12/17 09:39; Start 03/25/17 at 10:15 Linezolid 300 ml @ 300 mls/hr Q12HR IV Last administered on 03/26/17 20:54; Start 03/25/17 at 11:00; Stop 03/27/17 at 08:05; Status DC Fluconazole/ Sodium Chloride 100 ml @ 100 mls/hr Q24H IV Last administered on 04/07/17 11:52; Start 03/25/17 at 11:00; Stop 04/07/17 at 13:39; Status DC Dextrose/Lactated Ringer's 1,000 ml @ 75 mls/hr [id number] IV Last administered on 04/03/17 08:54; Start 03/25/17 at 17:00; Stop 04/04/17 at 09:23; Status DC Famotidine (Pepcid Vial) 40 mg QHS IVP Last administered on 03/28/17 21:35; Start 03/25/17 at 21:00; Stop 03/29/17 at 08:02; Status DC Lorazepam (Ativan) 0.5 mg 1X ONCE IV ; Start 03/26/17 at 07:00; Stop at 07:01; Status Cancel Lorazepam (Ativan) 0.5 mg PRN Q8HRS PRN PO ANXIETY / AGITATION; Start at 07:00; Status Cancel Furosemide (Lasix) 40 mg 1X ONCE IVP Last administered on 03/26/17 09:54; Start 03/26/17 at 09:00; Stop 03/26/17 at 09:01; Status DC Furosemide (Lasix) 20 mg DAILY IVP Last administered on 03/30/17 09:29; Start 03/27/17 at 09:00; Stop 03/31/17 at 12:22; Status DC Digoxin (Lanoxin) 250 mcg 1X ONCE IV Last administered on 03/26/17 15:06; Start 03/26/17 at 15:15; Stop 03/26/17 at 15:16; Status DC Iohexol (Omnipaque 300 Mg/ml) 75 ml 1X ONCE IV Last administered on 16:41; Start 03/26/17 at 16:45; Stop 03/26/17 at 16:46; Status DC Info (Do NOT chart on this entry -- for MONITORING) 1 each PRN DAILY PRN MC SEE COMMENTS; Start 03/26/17 at 16:45; Stop 03/28/17 at 16:44; Status DC Norepinephrine Bitartrate 250 ml @ As Directed STK-MED ONCE IV ; Start at 17:42; Stop 03/26/17 at 17:43; Status DC Norepinephrine Bitartrate 250 ml @ 0 mls/hr CONT PRN IV SEE I/O RECORD Last administered on 03/26/17 18:01; Start 03/26/17 at 18:00; Stop 04/04/17 at 09 :57; Status DC Enoxaparin Sodium (Lovenox Per Pharmacy Treatment Dosing) 1 each PRN DAILY PRN MC SEE COMMENTS; Start 03/26/17 at 19:30; Stop 03/28/17 at 12:38; Status DC Enoxaparin Sodium (Lovenox 80mg Syringe) 80 mg Q12HR SQ Last administered on 21:51; Start 03/26/17 at 20:00; Stop 03/28/17 at 15:36; Status DC Daptomycin 460 mg/ Sodium Chloride 50 ml @ 100 mls/hr Q24H IV Last administered on 04/11/17 09:41; Start 03/27/17 at 09:00; Stop 04/12/17 at 07: 49; Status DC Digoxin (Lanoxin) 250 mcg 1X ONCE IV Last administered on 03/27/17 12:09; Start 03/27/17 at 12:00; Stop 03/27/17 at 12:01; Status DC Insulin Detemir (Levemir) 5 units QHS SQ Last administered on 04/04/17 21:30 ; Start 03/27/17 at 21:00; Stop 04/05/17 at 09:34; Status DC Albumin Human 100 ml @ 100 mls/hr Q8H IV Last administered on 03/29/17 00:42 ; Start 03/28/17 at 09:00; Stop 03/29/17 at 01:59; Status DC Lorazepam (Ativan) 1 mg PRN Q6HRS PRN PO ANXIETY / AGITATION Last administered on 04/07/17 05:43; Start 03/28/17 at 16:00; Stop 04/07/17 at 16:34; Status DC Iohexol (Omnipaque 300 Mg/ml) 75 ml 1X ONCE IV Last administered on 16:00; Start 03/28/17 at 16:00; Stop 03/28/17 at 16:02; Status DC Info (Do NOT chart on this entry -- for MONITORING) 1 each PRN DAILY PRN MC SEE COMMENTS; Start 03/28/17 at 16:15; Stop 03/30/17 at 16:14; Status DC Fentanyl Citrate (Fentanyl 2ml Vial) 50 mcg PRN Q4HRS PRN IV PAIN Last administered on 04/13/17 07:54; Start 03/29/17 at 09:45 Ciprofloxacin/ Dextrose 200 ml @ 200 mls/hr Q12HR IV Last administered on 08:58; Start 03/30/17 at 09:00; Stop 04/04/17 at 10:45; Status DC Lorazepam (Ativan) 0.5 mg Q12HR PO Last administered on 04/12/17 22:14; Start 03/30/17 at 21:00 Dopamine HCl/ Dextrose 250 ml @ 15.155 mls/ hr CONT PRN IV SEE I/O RECORD Last administered on 04/06/17 15:44; Start 03/31/17 at 13:00 Info 1 each PRN DAILY PRN MC SEE COMMENTS Last administered on 04/12/17 13:57 ; Start 04/03/17 at 12:15 Sodium Chloride 90 meq/Potassium Chloride 50 meq/ Potassium Phosphate 20.4 mmol/ Magnesium Sulfate 10 meq/ Calcium Gluconate 10 meq/ Multivitamins 10 ml/Chromium / Copper/Manganese/ Seleni/Zn 1 ml/ Total Parenteral Nutrition/Amino Acids/ Dextrose/ Fat Emulsion Intravenous 1,512 ml @ 63 mls/hr TPN CONT IV Last administered on 04/03/17 21:38; Start 04/03/17 at 22:00; Stop 04/04/17 at 21 :59; Status DC Levofloxacin/ Dextrose 100 ml @ 100 mls/hr Q24H IV Last administered on 21:47; Start 04/04/17 at 21:00; Stop 04/07/17 at 13:39; Status DC Furosemide (Lasix) 40 mg DAILY IVP Last administered on 04/12/17 09:39; Start 04/04/17 at 12:00 Sodium Chloride 90 meq/Potassium Chloride 50 meq/ Potassium Phosphate 20.4 mmol/ Magnesium Sulfate 16 meq/ Calcium Gluconate 10 meq/ Multivitamins 10 ml/Chromium / Copper/Manganese/ Seleni/Zn 1 ml/ Total Parenteral Nutrition/Amino Acids/ Dextrose/ Fat Emulsion Intravenous 1,512 ml @ 63 mls/hr TPN CONT IV Last administered on 04/04/17 21:16; Start 04/04/17 at 22:00; Stop 04/05/17 at 21 :59; Status DC Insulin Detemir (Levemir) 20 units QHS SQ Last administered on 04/10/17 21:39 ; Start 04/05/17 at 21:00; Stop 04/11/17 at 08:11; Status DC Insulin Detemir (Levemir) 10 units 1X ONCE SQ Last administered on 04/05/17 14:12; Start 04/05/17 at 09:45; Stop 04/05/17 at 09:46; Status DC Sodium Chloride 90 meq/Potassium Chloride 50 meq/ Potassium Phosphate 20.4 mmol/ Magnesium Sulfate 24 meq/ Calcium Gluconate 10 meq/ Multivitamins 10 ml/Chromium / Copper/Manganese/ Seleni/Zn 1 ml/ Total Parenteral Nutrition/Amino Acids/ Dextrose/ Fat Emulsion Intravenous 1,512 ml @ 63 mls/hr TPN CONT IV Last administered on 04/05/17 20:55; Start 04/05/17 at 22:00; Stop 04/06/17 at 21: 59; Status DC Iohexol (Omnipaque 300 Mg/ml) 75 ml 1X ONCE IV ; Start 04/05/17 at 13:00; Stop 04/05/17 at 13:01; Status DC Iohexol (Omnipaque 240 Mg/ml) 30 ml 1X ONCE PO ; Start 04/05/17 at 13:00; Stop 04/05/17 at 13:01; Status DC Info (Do NOT chart on this entry -- for MONITORING) 1 each PRN DAILY PRN MC SEE COMMENTS; Start 04/05/17 at 13:00; Stop 04/07/17 at 12:59; Status DC Sodium Chloride 90 meq/Potassium Chloride 50 meq/ Potassium Phosphate 20.4 mmol/ Magnesium Sulfate 24 meq/ Calcium Gluconate 10 meq/ Multivitamins 10 ml/Chromium / Copper/Manganese/ Seleni/Zn 1 ml/ Total Parenteral Nutrition/Amino Acids/ Dextrose/ Fat Emulsion Intravenous 1,512 ml @ 63 mls/hr TPN CONT IV Last administered on 04/06/17 21:45; Start 04/06/17 at 22:00; Stop 04/07/17 at 21:59 ; Status DC Lidocaine/Sodium Bicarbonate (Buffered Lidocaine 1%) 20 ml STK-MED ONCE IJ ; Start 04/06/17 at 14:28; Stop 04/06/17 at 14:29; Status DC Fentanyl Citrate (Fentanyl 2ml Vial) 100 mcg STK-MED ONCE .ROUTE ; Start at 14:45; Stop 04/06/17 at 14:46; Status DC Midazolam HCl (Versed) 2 mg STK-MED ONCE .ROUTE ; Start 04/06/17 at 14:45; Stop 04/06/17 at 14:46; Status DC Flumazenil (Romazicon) 0.5 mg STK-MED ONCE IV ; Start 04/06/17 at 14:45; Stop 04/06/17 at 14:46; Status DC Naloxone HCl (Narcan) 0.4 mg STK-MED ONCE .ROUTE ; Start 04/06/17 at 14:45; Stop 04/06/17 at 14:46; Status DC Dopamine HCl/ Dextrose 250 ml @ As Directed STK-MED ONCE IV ; Start 04/06/17 at 14:50; Stop 04/06/17 at 14:51; Status DC Lidocaine/Sodium Bicarbonate (Buffered Lidocaine 1%) 7 ml 1X ONCE IJ Last administered on 04/06/17 15:20; Start 04/06/17 at 15:30; Stop 04/06/17 at 15:31 ; Status DC Sodium Chloride 90 meq/Potassium Chloride 50 meq/ Potassium Phosphate 13.6 mmol/ Magnesium Sulfate 20 meq/ Calcium Gluconate 10 meq/ Multivitamins 10 ml/Chromium / Copper/Manganese/ Seleni/Zn 1 ml/ Total Parenteral Nutrition/Amino Acids/ Dextrose/ Fat Emulsion Intravenous 1,512 ml @ 63 mls/hr TPN CONT IV Last administered on 04/07/17 21:19; Start 04/07/17 at 22:00; Stop 04/08/17 at 21:59 ; Status DC Micafungin Sodium 100 mg/Sodium Chloride 100 ml @ 100 mls/hr Q24H IV Last administered on 04/12/17 14:20; Start 04/07/17 at 14:00 Metronidazole 100 ml @ 100 mls/hr Q8HRS IV Last administered on 04/13/17 05: 35; Start 04/07/17 at 14:00 Cefepime HCl 1 gm/ Dextrose 50 ml @ 100 mls/hr Q8HRS IV ; Start 04/07/17 at 14: 00; Status UNV Cefepime HCl (Maxipime) 1 gm Q8HRS IVP Last administered on 04/13/17 05:35; Start 04/07/17 at 14:00 Sodium Chloride 90 meq/Potassium Chloride 50 meq/ Potassium Phosphate 13.6 mmol/ Magnesium Sulfate 20 meq/ Calcium Gluconate 10 meq/ Multivitamins 10 ml/Chromium / Copper/Manganese/ Seleni/Zn 1 ml/ Total Parenteral Nutrition/Amino Acids/ Dextrose/ Fat Emulsion Intravenous 1,512 ml @ 63 mls/hr TPN CONT IV Last administered on 04/08/17 21:23; Start 04/08/17 at 22:00; Stop 04/09/17 at 21:59 ; Status DC Furosemide (Lasix) 40 mg 1X ONCE IVP Last administered on 04/09/17 10:03; Start 04/09/17 at 08:15; Stop 04/09/17 at 08:16; Status DC Sodium Chloride 90 meq/Potassium Chloride 50 meq/ Potassium Phosphate 13.6 mmol/ Magnesium Sulfate 20 meq/ Calcium Gluconate 10 meq/ Multivitamins 10 ml/Chromium / Copper/Manganese/ Seleni/Zn 1 ml/ Total Parenteral Nutrition/Amino Acids/ Dextrose/ Fat Emulsion Intravenous 1,512 ml @ 63 mls/hr TPN CONT IV Last administered on 04/09/17 21:52; Start 04/09/17 at 22:00; Stop 04/10/17 at 21:59 ; Status DC Sodium Chloride 90 meq/Potassium Chloride 60 meq/ Potassium Phosphate 13.6 mmol/ Magnesium Sulfate 20 meq/ Calcium Gluconate 10 meq/ Multivitamins 10 ml/Chromium / Copper/Manganese/ Seleni/Zn 1 ml/ Total Parenteral Nutrition/Amino Acids/ Dextrose/ Fat Emulsion Intravenous 1,512 ml @ 63 mls/hr TPN CONT IV Last administered on 04/10/17 21:37; Start 04/10/17 at 22:00; Stop 04/11/17 at 21:59 ; Status DC Insulin Detemir (Levemir) 22 units QHS SQ Last administered on 04/11/17 22:08 ; Start 04/11/17 at 21:00; Stop 04/12/17 at 12:21; Status DC Enoxaparin Sodium (Lovenox 40mg Syringe) 40 mg Q24H SQ Last administered on 09:00; Start 04/11/17 at 09:00 Sodium Chloride 90 meq/Potassium Chloride 60 meq/ Potassium Phosphate 13.6 mmol/ Magnesium Sulfate 20 meq/ Calcium Gluconate 10 meq/ Multivitamins 10 ml/Chromium / Copper/Manganese/ Seleni/Zn 1 ml/ Total Parenteral Nutrition/Amino Acids/ Dextrose/ Fat Emulsion Intravenous 1,512 ml @ 63 mls/hr TPN CONT IV Last administered on 04/11/17 21:59; Start 04/11/17 at 22:00; Stop 04/12/17 at 21:59 ; Status DC Norepinephrine Bitartrate 250 ml @ As Directed STK-MED ONCE IV ; Start at 15:51; Stop 04/11/17 at 15:52; Status DC Norepinephrine Bitartrate 250 ml @ 0 mls/hr CONT PRN IV SEE I/O RECORD Last administered on 04/13/17 01:01; Start 04/11/17 at 22:30 Linezolid 300 ml @ 300 mls/hr Q12HR IV Last administered on 04/12/17 22:15; Start 04/12/17 at 09:00 Norepinephrine Bitartrate (Levophed 8mg/ 250ml Premix Drip) 8 mg STK-MED ONCE IV ; Start 04/11/17 at 16:00; Stop 04/12/17 at 09:06; Status DC Insulin Detemir (Levemir) 24 units QHS SQ Last administered on 04/12/17 22:16 ; Start 04/12/17 at 21:00; Stop 04/13/17 at 08:24; Status DC Sodium Chloride 90 meq/Potassium Chloride 60 meq/ Potassium Phosphate 13.6 mmol/ Magnesium Sulfate 20 meq/ Calcium Gluconate 10 meq/ Multivitamins 10 ml/Chromium / Copper/Manganese/ Seleni/Zn 1 ml/ Total Parenteral Nutrition/Amino Acids/ Dextrose/ Fat Emulsion Intravenous 1,512 ml @ 63 mls/hr TPN CONT IV Last administered on 04/12/17 22:15; Start 04/12/17 at 22:00; Stop 04/13/17 at 21:59 Insulin Detemir (Levemir) 26 units QHS SQ ; Start 04/13/17 at 21:00 Active Scripts Active Reported Flagyl (Metronidazole) 500 Mg Tablet 1 Tab PO BID Cefpodoxime Proxetil 200 Mg Tablet 1 Tab PO BID Ferrous Sulfate 325 Mg Tablet 1 Tab PO DAILY Lasix (Furosemide) 40 Mg Tablet 40 Mg PO QODAY Potassium Chloride 10 Meq Capsule.er 10 Meq PO QODAY Metoprolol Tartrate 25 Mg Tablet 12.5 Mg PO BID Atorvastatin Calcium 40 Mg Tablet 40 Mg PO HS Clopidogrel (Clopidogrel Bisulfate) 75 Mg Tablet 1 Tab PO DAILY Diclofenac Sodium 75 Mg Tablet.dr 75 Mg PO DAILY Ranitidine Hcl 150 Mg Tablet 1 Tab PO BID Aspirin 81 Mg Tab.chew 1 Tab PO DAILY Vitals/I & O Vital Sign - Last 24 Hours 04/12/17 04/12/17 04/12/17 04/12/17 09:31 10:00 11:00 12:00 Pulse 99 99 Resp 36 37 B/P (MAP) 102/46 (64) 103/52 (69) Pulse Ox 99 99 99 O2 Delivery BiPAP/CPAP BiPAP/CPAP BiPAP/CPAP Bi-pap 04/12/17 04/12/17 04/12/17 04/12/17 12:00 12:01 13:00 13:01 Temp 99.4 99.4 Pulse 86 90 Resp 38 35 B/P (MAP) 90/50 (63) 105/49 (67) Pulse Ox 98 99 98 98 O2 Delivery BiPAP/CPAP BiPAP/CPAP BiPAP/CPAP BiPAP/CPAP 04/12/17 04/12/17 04/12/17 04/12/17 14:00 15:00 16:00 16:00 Temp 100.4 100.4 Pulse 94 94 98 Resp 35 31 17 B/P (MAP) 96/56 (69) 93/45 (61) 98/42 (60) Pulse Ox 98 99 99 O2 Delivery BiPAP/CPAP BiPAP/CPAP BiPAP/CPAP Bi-pap 04/12/17 04/12/17 04/12/17 04/12/17 16:07 17:00 17:10 18:00 Pulse 104 100 Resp 36 31 B/P (MAP) 103/52 (69) 91/56 (68) Pulse Ox 98 97 97 98 O2 Delivery BiPAP/CPAP BiPAP/CPAP BiPAP/CPAP BiPAP/CPAP 04/12/17 04/12/17 04/12/17 04/12/17 19:00 20:00 20:00 20:04 Temp 99.6 99.6 Pulse 96 105 Resp 37 41 B/P (MAP) 104/54 (71) 91/59 (70) Pulse Ox 98 98 98 O2 Delivery BiPAP/CPAP Bi-pap BiPAP/CPAP BiPAP/CPAP 04/12/17 04/12/17 04/12/17 04/12/17 21:00 22:00 22:15 23:00 Pulse 95 98 90 Resp 32 40 30 34 B/P (MAP) 113/48 (69) 101/53 (69) 113/69 (84) Pulse Ox 98 98 98 98 O2 Delivery BiPAP/CPAP BiPAP/CPAP BiPAP/CPAP BiPAP/CPAP 04/12/17 04/13/17 04/13/17 04/13/17 23:17 00:00 00:00 01:00 Temp 99.4 99.4 Pulse 100 103 Resp 33 30 B/P (MAP) 109/56 (73) 138/51 (80) Pulse Ox 98 98 99 O2 Delivery BiPAP/CPAP BiPAP/CPAP Bi-pap BiPAP/CPAP 04/13/17 04/13/17 04/13/17 04/13/17 01:01 01:24 01:31 02:00 Pulse 96 Resp 32 32 34 B/P (MAP) 95/45 (62) Pulse Ox 98 99 98 99 O2 Delivery BiPAP/CPAP BiPAP/CPAP BiPAP/CPAP BiPAP/CPAP 04/13/17 04/13/17 04/13/17 04/13/17 03:00 03:23 03:33 04:00 Temp 99.6 99.6 Pulse 99 94 Resp 36 32 34 B/P (MAP) 121/41 (67) 111/43 (65) Pulse Ox 99 99 97 98 O2 Delivery BiPAP/CPAP BiPAP/CPAP BiPAP/CPAP BiPAP/CPAP 04/13/17 04/13/17 04/13/17 04/13/17 04:00 04:33 05:00 05:07 Pulse 97 Resp 32 37 B/P (MAP) 64/42 (49) Pulse Ox 97 98 97 O2 Delivery Bi-pap BiPAP/CPAP BiPAP/CPAP BiPAP/CPAP 04/13/17 04/13/17 04/13/17 05:13 07:54 08:38 B/P (MAP) 101/58 (72) Pulse Ox 98 99 O2 Delivery BiPAP/CPAP BiPAP/CPAP Intake and Output 04/12/17 04/12/17 04/13/17 15:00 23:00 07:00 Intake Total 1279 ml 1367 ml Output Total 1050 ml 635 ml 480 ml Balance -1050 ml 644 ml 887 ml DANNY MEZA MD Apr 13, 2017 09:05
--- NOTE | 2017-04-13 09:15 | PDOC ---
SUBJECTIVE Subjective No change today. Not wanting to eat much, if anything. Denies nausea. Pain well controlled. On bipap. Still requiring levophed. OBJECTIVE Objective Reviewed. Vital Signs Vital Signs Date Time Temp Pulse Resp B/P (MAP) Pulse Ox O2 Delivery O2 Flow Rate FiO2 04/13/17 08:38 99 BiPAP/CPAP 04/13/17 07:54 98 BiPAP/CPAP 04/13/17 05:13 101/58 (72) 04/13/17 05:07 97 BiPAP/CPAP 04/13/17 05:00 97 37 64/42 (49) 98 BiPAP/CPAP 04/13/17 04:33 32 97 BiPAP/CPAP 04/13/17 04:00 Bi-pap 04/13/17 04:00 99.6 94 34 111/43 (65) 98 BiPAP/CPAP 99.6 04/13/17 03:33 32 97 BiPAP/CPAP 04/13/17 03:23 99 BiPAP/CPAP 04/13/17 03:00 99 36 121/41 (67) 99 BiPAP/CPAP 04/13/17 02:00 96 34 95/45 (62) 99 BiPAP/CPAP 04/13/17 01:31 32 98 BiPAP/CPAP 04/13/17 01:24 99 BiPAP/CPAP 04/13/17 01:01 32 98 BiPAP/CPAP 04/13/17 01:00 103 30 138/51 (80) 99 BiPAP/CPAP 04/13/17 00:00 Bi-pap 04/13/17 00:00 99.4 100 33 109/56 (73) 98 BiPAP/CPAP 99.4 04/12/17 23:17 98 BiPAP/CPAP 04/12/17 23:00 90 34 113/69 (84) 98 BiPAP/CPAP 04/12/17 22:15 30 98 BiPAP/CPAP 04/12/17 22:00 98 40 101/53 (69) 98 BiPAP/CPAP 04/12/17 21:00 95 32 113/48 (69) 98 BiPAP/CPAP 04/12/17 20:04 98 BiPAP/CPAP 04/12/17 20:00 99.6 105 41 91/59 (70) 98 BiPAP/CPAP 99.6 04/12/17 20:00 Bi-pap 04/12/17 19:00 96 37 104/54 (71) 98 BiPAP/CPAP 04/12/17 18:00 100 31 91/56 (68) 98 BiPAP/CPAP 04/12/17 17:10 97 BiPAP/CPAP 04/12/17 17:00 104 36 103/52 (69) 97 BiPAP/CPAP 04/12/17 16:07 98 BiPAP/CPAP 04/12/17 16:00 Bi-pap 04/12/17 16:00 100.4 98 17 98/42 (60) 99 BiPAP/CPAP 100.4 04/12/17 15:00 94 31 93/45 (61) 99 BiPAP/CPAP 04/12/17 14:00 94 35 96/56 (69) 98 BiPAP/CPAP 04/12/17 13:01 98 BiPAP/CPAP 04/12/17 13:00 90 35 105/49 (67) 98 BiPAP/CPAP 04/12/17 12:01 99 BiPAP/CPAP 04/12/17 12:00 99.4 86 38 90/50 (63) 98 BiPAP/CPAP 99.4 04/12/17 12:00 Bi-pap 04/12/17 11:00 99 37 103/52 (69) 99 BiPAP/CPAP 04/12/17 10:00 99 36 102/46 (64) 99 BiPAP/CPAP 04/12/17 09:31 99 BiPAP/CPAP I & O Intake and Output 04/13/17 07:00 Intake Total 2646 ml Output Total 2165 ml Balance 481 ml Intake Oral 200 ml IV Total 2446 ml Output Urine Total 1890 ml Drainage Total 275 ml PHYSICAL EXAM Physical Exam Alert, oriented Nasal wound covered with bandage, on bipap RRR, mild tachycardia Increased work of breathing, crackles in bases Abd wounds covered with dressing, dehiscence, ostomy with output 2+ pitting edema bilateral lower extremities ASSESSMENT/PLAN Assessment/Plan [id number] respiratory failure requiring BIPAP intermittently Status post laparoscopic converted to open exploration for extensive lysis of adhesion, removal of old mesh, subtotal colectomy, small bowel resection and incisional hernia repair.Now with brown drainage from wound. entero-cutaneous fistula/ abscess Obesity Enterocutaneous fistula. Abdominal abscess. Ventral hernia, status post repair. Anemia Swelling LE Multiple wounds (nasal bridge from bipap, dehiscence of abdominal wound, etc.) Severe malnutrition Diabetes mellitus Elevated TSH, normal T4, low T3 - sick euthyroid Increased Levemir to 26U QHS given continued hyperglycemia Increase Ativan to Q8H PRN agitation/anxiety Follow up on goals of care with patient and son pending change in clinical status. Recommended DNR/DNI status given her desire to "not live on a machine". They will consider. No changes at this time. Palliative care following. Problems: COMMENT Lab Laboratory Tests Test 04/12/17 13:11 04/13/17 05:40 Glucose (Fingerstick) 258 mg/dL (70-99) White Blood Count 7.4 x10^3/uL (4.0-11.0) Red Blood Count 3.22 x10^6/uL (3.50-5.40) Hemoglobin 9.0 g/dL (12.0-15.5) Hematocrit 28.1 % (36.0-47.0) Mean Corpuscular Volume 87 fL (79-100) Mean Corpuscular Hemoglobin 28 pg (25-35) Mean Corpuscular Hemoglobin Concent 32 g/dL (31-37) Red Cell Distribution Width 18.1 % (11.5-14.5) Platelet Count 421 x10^3/uL (140-400) Neutrophils (%) (Auto) 78 % (31-73) Lymphocytes (%) (Auto) 15 % (24-48) Monocytes (%) (Auto) 7 % (0-9) Eosinophils (%) (Auto) 0 % (0-3) Basophils (%) (Auto) 0 % (0-3) Neutrophils # (Auto) 5.8 x10^3uL (1.8-7.7) Lymphocytes # (Auto) 1.1 x10^3/uL (1.0-4.8) Monocytes # (Auto) 0.5 x10^3/uL (0.0-1.1) Eosinophils # (Auto) 0.0 x10^3/uL (0.0-0.7) Basophils # (Auto) 0.0 x10^3/uL (0.0-0.2) Sodium Level 138 mmol/L (136-145) Potassium Level 4.3 mmol/L (3.5-5.1) Chloride Level 103 mmol/L (98-107) Carbon Dioxide Level 28 mmol/L (21-32) Anion Gap 7 (6-14) Blood Urea Nitrogen 20 mg/dL (7-20) Creatinine 0.7 mg/dL (0.6-1.0) Estimated GFR (Cockcroft-Gault) 82.5 BUN/Creatinine Ratio 29 (6-20) Glucose Level 272 mg/dL (70-99) Calcium Level 8.0 mg/dL (8.5-10.1) Phosphorus Level 2.8 mg/dL (2.6-4.7) Magnesium Level 2.5 mg/dL (1.8-2.4) Total Bilirubin 0.3 mg/dL (0.2-1.0) Aspartate Amino Transf (AST/SGOT) 14 U/L (15-37) Alanine Aminotransferase (ALT/SGPT) 8 U/L (14-59) Alkaline Phosphatase 72 U/L (46-116) Total Protein 5.2 g/dL (6.4-8.2) Albumin 0.9 g/dL (3.4-5.0) Albumin/Globulin Ratio 0.2 (1.0-1.7) STEPHON BLAND MD Apr 13, 2017 09:15
[2017-04-13] MEDS: PANTOPRAZOLE IV PUSH 40 MG VIAL. IVP SCH (09:25)
[2017-04-13] MEDS: FERROUS SULFATE 325 MG TABLET. PO SCH (09:27)
[2017-04-13] MEDS: ASPIRIN CHEWABLE 81 MG TABLET. PO SCH (09:27)
[2017-04-13] MEDS: FUROSEMIDE 40 MG/4 ML VIAL. IVP SCH (09:27)
--- NOTE | 2017-04-13 11:39 | PDOC2 ---
PALLIATIVE CARE Palliative Care Note Palliative Care Patient alert. Remains on BiPap. Patient states she is "getting tired" of this. Not sure if she wants intubation Patient Talked with Chris/son. Wants to have more conversation again in 4 days/Sunday. KATI ROSE Apr 13, 2017 11:39
[2017-04-13] MEDS: TPN PER PHARMACY MC PRN (12:52)
--- NOTE | 2017-04-13 14:49 | PDOC ---
SURGICAL PROGRESS NOTE Subjective Rony for Rafael sleeping soundly I did not wake her Vital Signs Vital Signs Date Time Temp Pulse Resp B/P (MAP) Pulse Ox O2 Delivery O2 Flow Rate FiO2 04/13/17 14:34 99 BiPAP/CPAP 04/13/17 09:00 105 93/54 04/13/17 05:00 37 04/13/17 04:00 99.6 99.6 I&O Intake and Output 04/13/17 06:59 Intake Total 2646 ml Output Total 2165 ml Balance 481 ml Intake Oral 200 ml IV Total 2446 ml Output Urine Total 1890 ml Drainage Total 275 ml PATIENT HAS A HOPPER: Yes HEENT: Other (BIPAP on) Labs Laboratory Tests Test 04/11/17 16:25 04/11/17 16:48 04/12/17 05:37 04/12/17 13:11 O2 Saturation 92 % (92-99) Arterial Blood pH 7.53 (7.35-7.45) Arterial Blood pCO2 at Patient Temp 31 mmHg (35-46) Arterial Blood pO2 at Patient Temp 59 mmHg (65-108) Arterial Blood HCO3 25 mmol/L (21-28) Arterial Blood Base Excess 3 mmol/L (-3-3) FiO2 35 Glucose (Fingerstick) 176 mg/dL (70-99) 258 mg/dL (70-99) White Blood Count 6.7 x10^3/uL (4.0-11.0) Red Blood Count 3.04 x10^6/uL (3.50-5.40) Hemoglobin 8.7 g/dL (12.0-15.5) Hematocrit 26.7 % (36.0-47.0) Mean Corpuscular Volume 88 fL (79-100) Mean Corpuscular Hemoglobin 29 pg (25-35) Mean Corpuscular Hemoglobin Concent 33 g/dL (31-37) Red Cell Distribution Width 17.9 % (11.5-14.5) Platelet Count 417 x10^3/uL (140-400) Neutrophils (%) (Auto) 77 % (31-73) Lymphocytes (%) (Auto) 13 % (24-48) Monocytes (%) (Auto) 9 % (0-9) Eosinophils (%) (Auto) 0 % (0-3) Basophils (%) (Auto) 1 % (0-3) Neutrophils # (Auto) 5.2 x10^3uL (1.8-7.7) Lymphocytes # (Auto) 0.9 x10^3/uL (1.0-4.8) Monocytes # (Auto) 0.6 x10^3/uL (0.0-1.1) Eosinophils # (Auto) 0.0 x10^3/uL (0.0-0.7) Basophils # (Auto) 0.0 x10^3/uL (0.0-0.2) Sodium Level 139 mmol/L (136-145) Potassium Level 3.9 mmol/L (3.5-5.1) Chloride Level 103 mmol/L (98-107) Carbon Dioxide Level 28 mmol/L (21-32) Anion Gap 8 (6-14) Blood Urea Nitrogen 23 mg/dL (7-20) Creatinine 0.7 mg/dL (0.6-1.0) Estimated GFR (Cockcroft-Gault) 82.5 Glucose Level 244 mg/dL (70-99) Calcium Level 8.2 mg/dL (8.5-10.1) Test 04/13/17 05:40 White Blood Count 7.4 x10^3/uL (4.0-11.0) Red Blood Count 3.22 x10^6/uL (3.50-5.40) Hemoglobin 9.0 g/dL (12.0-15.5) Hematocrit 28.1 % (36.0-47.0) Mean Corpuscular Volume 87 fL (79-100) Mean Corpuscular Hemoglobin 28 pg (25-35) Mean Corpuscular Hemoglobin Concent 32 g/dL (31-37) Red Cell Distribution Width 18.1 % (11.5-14.5) Platelet Count 421 x10^3/uL (140-400) Neutrophils (%) (Auto) 78 % (31-73) Lymphocytes (%) (Auto) 15 % (24-48) Monocytes (%) (Auto) 7 % (0-9) Eosinophils (%) (Auto) 0 % (0-3) Basophils (%) (Auto) 0 % (0-3) Neutrophils # (Auto) 5.8 x10^3uL (1.8-7.7) Lymphocytes # (Auto) 1.1 x10^3/uL (1.0-4.8) Monocytes # (Auto) 0.5 x10^3/uL (0.0-1.1) Eosinophils # (Auto) 0.0 x10^3/uL (0.0-0.7) Basophils # (Auto) 0.0 x10^3/uL (0.0-0.2) Sodium Level 138 mmol/L (136-145) Potassium Level 4.3 mmol/L (3.5-5.1) Chloride Level 103 mmol/L (98-107) Carbon Dioxide Level 28 mmol/L (21-32) Anion Gap 7 (6-14) Blood Urea Nitrogen 20 mg/dL (7-20) Creatinine 0.7 mg/dL (0.6-1.0) Estimated GFR (Cockcroft-Gault) 82.5 BUN/Creatinine Ratio 29 (6-20) Glucose Level 272 mg/dL (70-99) Calcium Level 8.0 mg/dL (8.5-10.1) Phosphorus Level 2.8 mg/dL (2.6-4.7) Magnesium Level 2.5 mg/dL (1.8-2.4) Total Bilirubin 0.3 mg/dL (0.2-1.0) Aspartate Amino Transf (AST/SGOT) 14 U/L (15-37) Alanine Aminotransferase (ALT/SGPT) 8 U/L (14-59) Alkaline Phosphatase 72 U/L (46-116) Total Protein 5.2 g/dL (6.4-8.2) Albumin 0.9 g/dL (3.4-5.0) Albumin/Globulin Ratio 0.2 (1.0-1.7) Laboratory Tests Test 04/13/17 05:40 White Blood Count 7.4 x10^3/uL (4.0-11.0) Red Blood Count 3.22 x10^6/uL (3.50-5.40) Hemoglobin 9.0 g/dL (12.0-15.5) Hematocrit 28.1 % (36.0-47.0) Mean Corpuscular Volume 87 fL (79-100) Mean Corpuscular Hemoglobin 28 pg (25-35) Mean Corpuscular Hemoglobin Concent 32 g/dL (31-37) Red Cell Distribution Width 18.1 % (11.5-14.5) Platelet Count 421 x10^3/uL (140-400) Neutrophils (%) (Auto) 78 % (31-73) Lymphocytes (%) (Auto) 15 % (24-48) Monocytes (%) (Auto) 7 % (0-9) Eosinophils (%) (Auto) 0 % (0-3) Basophils (%) (Auto) 0 % (0-3) Neutrophils # (Auto) 5.8 x10^3uL (1.8-7.7) Lymphocytes # (Auto) 1.1 x10^3/uL (1.0-4.8) Monocytes # (Auto) 0.5 x10^3/uL (0.0-1.1) Eosinophils # (Auto) 0.0 x10^3/uL (0.0-0.7) Basophils # (Auto) 0.0 x10^3/uL (0.0-0.2) Sodium Level 138 mmol/L (136-145) Potassium Level 4.3 mmol/L (3.5-5.1) Chloride Level 103 mmol/L (98-107) Carbon Dioxide Level 28 mmol/L (21-32) Anion Gap 7 (6-14) Blood Urea Nitrogen 20 mg/dL (7-20) Creatinine 0.7 mg/dL (0.6-1.0) Estimated GFR (Cockcroft-Gault) 82.5 BUN/Creatinine Ratio 29 (6-20) Glucose Level 272 mg/dL (70-99) Calcium Level 8.0 mg/dL (8.5-10.1) Phosphorus Level 2.8 mg/dL (2.6-4.7) Magnesium Level 2.5 mg/dL (1.8-2.4) Total Bilirubin 0.3 mg/dL (0.2-1.0) Aspartate Amino Transf (AST/SGOT) 14 U/L (15-37) Alanine Aminotransferase (ALT/SGPT) 8 U/L (14-59) Alkaline Phosphatase 72 U/L (46-116) Total Protein 5.2 g/dL (6.4-8.2) Albumin 0.9 g/dL (3.4-5.0) Albumin/Globulin Ratio 0.2 (1.0-1.7) Problem List Problems Medical Problems: (1) Abdominal abscess Status: Acute (2) Abdominal pain Status: Acute Assessment/Plan resp failure continue supportive care no new surgical recs Dr Lisa to follow over the weekend Problems: LIZ DIXON MD Apr 13, 2017 14:49
[2017-04-13] MEDS: MICAFUNGIN 100 MG in IV NORMAL SALINE 100ML 100 ML IV SCH (15:00)
--- NOTE | 2017-04-13 15:20 | PDOC ---
PULMONARY PROGRESS NOTES Subjective PT TRANSFERRED TO ICU 04/09 NOW BIPAP Vitals Vital Signs Date Time Temp Pulse Resp B/P (MAP) Pulse Ox O2 Delivery O2 Flow Rate FiO2 04/13/17 14:34 99 BiPAP/CPAP 04/13/17 09:00 105 93/54 04/13/17 05:00 37 04/13/17 04:00 99.6 99.6 General: Alert Lungs: Clear Cardiovascular: S1, S2 Abdomen: Soft, Other (continues to have drainage from the abdo wound,lower incision site,brownish fluid) Neuro Exam: Alert Extremities: Other (1+edema) Skin: Warm Labs Laboratory Tests Test 04/11/17 16:25 04/11/17 16:48 04/12/17 05:37 04/12/17 13:11 O2 Saturation 92 % (92-99) Arterial Blood pH 7.53 (7.35-7.45) Arterial Blood pCO2 at Patient Temp 31 mmHg (35-46) Arterial Blood pO2 at Patient Temp 59 mmHg (65-108) Arterial Blood HCO3 25 mmol/L (21-28) Arterial Blood Base Excess 3 mmol/L (-3-3) FiO2 35 Glucose (Fingerstick) 176 mg/dL (70-99) 258 mg/dL (70-99) White Blood Count 6.7 x10^3/uL (4.0-11.0) Red Blood Count 3.04 x10^6/uL (3.50-5.40) Hemoglobin 8.7 g/dL (12.0-15.5) Hematocrit 26.7 % (36.0-47.0) Mean Corpuscular Volume 88 fL (79-100) Mean Corpuscular Hemoglobin 29 pg (25-35) Mean Corpuscular Hemoglobin Concent 33 g/dL (31-37) Red Cell Distribution Width 17.9 % (11.5-14.5) Platelet Count 417 x10^3/uL (140-400) Neutrophils (%) (Auto) 77 % (31-73) Lymphocytes (%) (Auto) 13 % (24-48) Monocytes (%) (Auto) 9 % (0-9) Eosinophils (%) (Auto) 0 % (0-3) Basophils (%) (Auto) 1 % (0-3) Neutrophils # (Auto) 5.2 x10^3uL (1.8-7.7) Lymphocytes # (Auto) 0.9 x10^3/uL (1.0-4.8) Monocytes # (Auto) 0.6 x10^3/uL (0.0-1.1) Eosinophils # (Auto) 0.0 x10^3/uL (0.0-0.7) Basophils # (Auto) 0.0 x10^3/uL (0.0-0.2) Sodium Level 139 mmol/L (136-145) Potassium Level 3.9 mmol/L (3.5-5.1) Chloride Level 103 mmol/L (98-107) Carbon Dioxide Level 28 mmol/L (21-32) Anion Gap 8 (6-14) Blood Urea Nitrogen 23 mg/dL (7-20) Creatinine 0.7 mg/dL (0.6-1.0) Estimated GFR (Cockcroft-Gault) 82.5 Glucose Level 244 mg/dL (70-99) Calcium Level 8.2 mg/dL (8.5-10.1) Test 04/13/17 05:40 White Blood Count 7.4 x10^3/uL (4.0-11.0) Red Blood Count 3.22 x10^6/uL (3.50-5.40) Hemoglobin 9.0 g/dL (12.0-15.5) Hematocrit 28.1 % (36.0-47.0) Mean Corpuscular Volume 87 fL (79-100) Mean Corpuscular Hemoglobin 28 pg (25-35) Mean Corpuscular Hemoglobin Concent 32 g/dL (31-37) Red Cell Distribution Width 18.1 % (11.5-14.5) Platelet Count 421 x10^3/uL (140-400) Neutrophils (%) (Auto) 78 % (31-73) Lymphocytes (%) (Auto) 15 % (24-48) Monocytes (%) (Auto) 7 % (0-9) Eosinophils (%) (Auto) 0 % (0-3) Basophils (%) (Auto) 0 % (0-3) Neutrophils # (Auto) 5.8 x10^3uL (1.8-7.7) Lymphocytes # (Auto) 1.1 x10^3/uL (1.0-4.8) Monocytes # (Auto) 0.5 x10^3/uL (0.0-1.1) Eosinophils # (Auto) 0.0 x10^3/uL (0.0-0.7) Basophils # (Auto) 0.0 x10^3/uL (0.0-0.2) Sodium Level 138 mmol/L (136-145) Potassium Level 4.3 mmol/L (3.5-5.1) Chloride Level 103 mmol/L (98-107) Carbon Dioxide Level 28 mmol/L (21-32) Anion Gap 7 (6-14) Blood Urea Nitrogen 20 mg/dL (7-20) Creatinine 0.7 mg/dL (0.6-1.0) Estimated GFR (Cockcroft-Gault) 82.5 BUN/Creatinine Ratio 29 (6-20) Glucose Level 272 mg/dL (70-99) Calcium Level 8.0 mg/dL (8.5-10.1) Phosphorus Level 2.8 mg/dL (2.6-4.7) Magnesium Level 2.5 mg/dL (1.8-2.4) Total Bilirubin 0.3 mg/dL (0.2-1.0) Aspartate Amino Transf (AST/SGOT) 14 U/L (15-37) Alanine Aminotransferase (ALT/SGPT) 8 U/L (14-59) Alkaline Phosphatase 72 U/L (46-116) Total Protein 5.2 g/dL (6.4-8.2) Albumin 0.9 g/dL (3.4-5.0) Albumin/Globulin Ratio 0.2 (1.0-1.7) Laboratory Tests Test 04/13/17 05:40 White Blood Count 7.4 x10^3/uL (4.0-11.0) Red Blood Count 3.22 x10^6/uL (3.50-5.40) Hemoglobin 9.0 g/dL (12.0-15.5) Hematocrit 28.1 % (36.0-47.0) Mean Corpuscular Volume 87 fL (79-100) Mean Corpuscular Hemoglobin 28 pg (25-35) Mean Corpuscular Hemoglobin Concent 32 g/dL (31-37) Red Cell Distribution Width 18.1 % (11.5-14.5) Platelet Count 421 x10^3/uL (140-400) Neutrophils (%) (Auto) 78 % (31-73) Lymphocytes (%) (Auto) 15 % (24-48) Monocytes (%) (Auto) 7 % (0-9) Eosinophils (%) (Auto) 0 % (0-3) Basophils (%) (Auto) 0 % (0-3) Neutrophils # (Auto) 5.8 x10^3uL (1.8-7.7) Lymphocytes # (Auto) 1.1 x10^3/uL (1.0-4.8) Monocytes # (Auto) 0.5 x10^3/uL (0.0-1.1) Eosinophils # (Auto) 0.0 x10^3/uL (0.0-0.7) Basophils # (Auto) 0.0 x10^3/uL (0.0-0.2) Sodium Level 138 mmol/L (136-145) Potassium Level 4.3 mmol/L (3.5-5.1) Chloride Level 103 mmol/L (98-107) Carbon Dioxide Level 28 mmol/L (21-32) Anion Gap 7 (6-14) Blood Urea Nitrogen 20 mg/dL (7-20) Creatinine 0.7 mg/dL (0.6-1.0) Estimated GFR (Cockcroft-Gault) 82.5 BUN/Creatinine Ratio 29 (6-20) Glucose Level 272 mg/dL (70-99) Calcium Level 8.0 mg/dL (8.5-10.1) Phosphorus Level 2.8 mg/dL (2.6-4.7) Magnesium Level 2.5 mg/dL (1.8-2.4) Total Bilirubin 0.3 mg/dL (0.2-1.0) Aspartate Amino Transf (AST/SGOT) 14 U/L (15-37) Alanine Aminotransferase (ALT/SGPT) 8 U/L (14-59) Alkaline Phosphatase 72 U/L (46-116) Total Protein 5.2 g/dL (6.4-8.2) Albumin 0.9 g/dL (3.4-5.0) Albumin/Globulin Ratio 0.2 (1.0-1.7) Medications Active Scripts Medications Dose Route/Sig Max Daily Dose Days Date Category Flagyl (Metronidazole) 500 Mg Tablet 1 Tab PO BID 03/01/17 Reported Cefpodoxime Proxetil 200 Mg Tablet 1 Tab PO BID 03/01/17 Reported Ferrous Sulfate 325 Mg Tablet 1 Tab PO DAILY 02/23/17 Reported Lasix (Furosemide) 40 Mg Tablet 40 Mg PO QODAY 02/23/17 Reported Potassium Chloride 10 Meq Capsule.er 10 Meq PO QODAY 02/23/17 Reported Metoprolol Tartrate 25 Mg Tablet 12.5 Mg PO BID 01/31/17 Reported Atorvastatin Calcium 40 Mg Tablet 40 Mg PO HS 01/31/17 Reported Clopidogrel (Clopidogrel Bisulfate) 75 Mg Tablet 1 Tab PO DAILY 08/24/15 Reported Diclofenac Sodium 75 Mg Tablet.dr 75 Mg PO DAILY 12/21/14 Reported Ranitidine Hcl 150 Mg Tablet 1 Tab PO BID 12/21/14 Reported Aspirin 81 Mg Tab.chew 1 Tab PO DAILY 04/15/14 Reported Impression . 1. [id number] respiratory failure, MULTIFACTORIAL 2. Status post laparoscopic converted to open exploration for extensive lysis of adhesion, removal of old mesh, subtotal colectomy, small bowel resection and incisional hernia repair 3. Obesity, body mass index of 35. 4. Leukocytosis. 5. Enterocutaneous fistula. Abdominal abscess, measuring 6.4 x 4.9 cm. s/p drain 03/12. Klebsiella ( R to Zosyn, S Cipro/Levo), VRE (R PCN) and PSAE ( R to ticarcillin only otherwise sensitive, S Cipro/Levo) and C tropicalis -h/o Strep anginosis and Bacteroides 6. Fever RESOLVED 7. Abdominal abscess. 8. Ventral hernia, status post repair. 9. Bilateral effusions due to low oncotic pressure/ repeat cxr 04/02 with volume loss bases, no sig. fluid to tap, small effusions on ct 04/05 10. Anxiety disorder Palliative Care Spoke with patient and son Chris. Patient off BiPap ---feels better. RR 32-34. Reviewed conversations patient and son had with physicians. Patient wants to continue to try to get better. Son Chris supportive of her wish. Understands that this will need to be evaluated closely as respiratory condition could decline rapidly. Encouraged patient and son to have conversation about any limitations of care that she would want. They understand that recovery could be a long process. Will continue to follow closely. Chris will be at work tomorrow but available by phone if anything changes. Plan . NOT IMPROVING PT WISHES TO PROCEED WITH FULL PRESS FOR NOW WILL USE BIPAP QHS AND PRN, I SPOKE WITH PT ON SEVERAL OCCASION AND TRIED TO INFORM HER THAT I DO NOT RECOMMEND INTUBATION REPEAT CT ABDOMEN/PELVIS REVIEWED/ SMALL EFFUSIONS, DOES NOT NEED TAP LASIX PRN VENOUS DOPPLER NEGATIVE/ CT NEGATIVE FOR PE MONITOR PLATELET / MUCH IMPROVED ANXIETY/ ON SCHEDULED ATIVAN D/W SON 04/10/PT NOW A FULL CODE I WOULD FAVOR NO INTUBATION I THINK IF SHE GET INTUBATED SHE WILL END UP WITH [facility] IFEOMA SEXTON MD Apr 13, 2017 15:20
[2017-04-13] MEDS: INSULIN DETEMIR 300 UNITS/3 ML INSULN.PEN. SQ SCH (21:56)
[2017-04-13] MEDS ORDERED: AMINO ACIDS IV SCH ×10 (22:00)
[2017-04-13] MEDS ORDERED: TOTAL PARENTERAL NUTRITION IV SCH ×10 (22:00)
[2017-04-13] MEDS ORDERED: DEXTROSE 70% IV SCH ×10 (22:00)
[2017-04-13] MEDS ORDERED: [UNRECOGNIZED DRUG - OTHER] IV SCH ×10 (22:00)
[2017-04-14] VITALS (24 sets, daily range): BP systolic 83–131; BP diastolic 38–88
[2017-04-14] MEDS: NOREPINEPHRIN PREMIX 250 ML IV PRN ×3 (00:12→21:31)
[2017-04-14] MEDS: fentaNYL PF VIAL 100 MCG/2 ML VIAL IV PRN ×3 (02:44→18:18)
[2017-04-14] MEDS: CEFEPIME HCL IV Push 1 GM VIAL. IVP SCH ×3 (05:51→21:27)
--- NOTE | 2017-04-14 08:10 | PDOC ---
SURGICAL PROGRESS NOTE Subjective Resting comfortably on bipap, denies pain. Vital Signs Vital Signs Date Time Temp Pulse Resp B/P (MAP) Pulse Ox O2 Delivery O2 Flow Rate FiO2 04/14/17 07:15 99 BiPAP/CPAP 04/14/17 07:00 112 39 121/56 (77) 04/14/17 04:00 98.6 98.6 04/14/17 02:44 5.0 I&O Intake and Output 04/14/17 07:00 Intake Total 2160 ml Output Total 1835 ml Balance 325 ml IV Total 2160 ml Output Urine Total 1835 ml PATIENT HAS A HOPPER: Yes General: Alert, Oriented X3, Cooperative, No acute distress Abdomen: Normal bowel sounds, Soft, No tenderness, Other (dressing clean, good ostomy output) Labs Laboratory Tests Test 04/12/17 13:11 04/13/17 05:40 04/13/17 21:53 Glucose (Fingerstick) 258 mg/dL (70-99) 297 mg/dL (70-99) White Blood Count 7.4 x10^3/uL (4.0-11.0) Red Blood Count 3.22 x10^6/uL (3.50-5.40) Hemoglobin 9.0 g/dL (12.0-15.5) Hematocrit 28.1 % (36.0-47.0) Mean Corpuscular Volume 87 fL (79-100) Mean Corpuscular Hemoglobin 28 pg (25-35) Mean Corpuscular Hemoglobin Concent 32 g/dL (31-37) Red Cell Distribution Width 18.1 % (11.5-14.5) Platelet Count 421 x10^3/uL (140-400) Neutrophils (%) (Auto) 78 % (31-73) Lymphocytes (%) (Auto) 15 % (24-48) Monocytes (%) (Auto) 7 % (0-9) Eosinophils (%) (Auto) 0 % (0-3) Basophils (%) (Auto) 0 % (0-3) Neutrophils # (Auto) 5.8 x10^3uL (1.8-7.7) Lymphocytes # (Auto) 1.1 x10^3/uL (1.0-4.8) Monocytes # (Auto) 0.5 x10^3/uL (0.0-1.1) Eosinophils # (Auto) 0.0 x10^3/uL (0.0-0.7) Basophils # (Auto) 0.0 x10^3/uL (0.0-0.2) Sodium Level 138 mmol/L (136-145) Potassium Level 4.3 mmol/L (3.5-5.1) Chloride Level 103 mmol/L (98-107) Carbon Dioxide Level 28 mmol/L (21-32) Anion Gap 7 (6-14) Blood Urea Nitrogen 20 mg/dL (7-20) Creatinine 0.7 mg/dL (0.6-1.0) Estimated GFR (Cockcroft-Gault) 82.5 BUN/Creatinine Ratio 29 (6-20) Glucose Level 272 mg/dL (70-99) Calcium Level 8.0 mg/dL (8.5-10.1) Phosphorus Level 2.8 mg/dL (2.6-4.7) Magnesium Level 2.5 mg/dL (1.8-2.4) Total Bilirubin 0.3 mg/dL (0.2-1.0) Aspartate Amino Transf (AST/SGOT) 14 U/L (15-37) Alanine Aminotransferase (ALT/SGPT) 8 U/L (14-59) Alkaline Phosphatase 72 U/L (46-116) Total Protein 5.2 g/dL (6.4-8.2) Albumin 0.9 g/dL (3.4-5.0) Albumin/Globulin Ratio 0.2 (1.0-1.7) Laboratory Tests Test 04/13/17 21:53 Glucose (Fingerstick) 297 mg/dL (70-99) Problem List Problems Medical Problems: (1) Abdominal abscess Status: Acute (2) Abdominal pain Status: Acute Assessment/Plan Surgically stable Resp per pulmonary Supportive care. Problems: MURIEL TALBOT MD Apr 14, 2017 08:10
[2017-04-14] MEDS: METOPROLOL SUCC 24HR ER 25 MG TAB.ER.24H. PO SCH (09:00)
--- NOTE | 2017-04-14 09:23 | PDOC ---
Infectious Disease Note Subjective Subjective Doing alright' Denies pain TPN No fever Hypotensive, on Levophed 12 mcg ROS ROS no n/v/d/pain/sob Vital Sign Vital Signs Vital Signs Date Time Temp Pulse Resp B/P (MAP) Pulse Ox O2 Delivery O2 Flow Rate FiO2 04/14/17 08:00 5.0 04/14/17 08:00 Bi-pap 04/14/17 08:00 98.9 104 37 114/44 (67) 99 98.9 Physical Exam PHYSICAL EXAM GENERAL: Propped up in bed, relaxed appearance, HEENT: Oral cavity dry, tongue black discoloration, BiPAP LUNGS: Clear anteriorly, FiO2 35% CV: S1 and S2, irregular ABD: BS active, soft, NT light palpation. Ostomy + output, distal incision dehiscence, + drainage. 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 clean Labs Lab Laboratory Tests Test 04/13/17 21:53 Glucose (Fingerstick) 297 mg/dL (70-99) Micro 04/12. BLOOD CULTURE Preliminary NO GROWTH AFTER 1 DAY Objective Assessment Aqsmj-wv-ptymnzj respiratory failure, now on BiPAP - pleural effusions -stable and small/ LE U/S 04/08 neg. ECHO 03/22 EF 40 - 45 %. Repeat 04/10 45 % Hypotension - on Levophed Severe Protein malnutrition Decreasing UOP - improved Fever, UA neg - some better Elevated TSH - T4 in normal range Acute Anemia - s/p PRBCs one unit 04/08 s/p lap converted to open exploration, JAIRO, removal of infected mesh, subtotal colectomy, SBR and hernia repair, 03/24. 10.0 x 5.5 x 18.0 cm fluid collection with air-fluid levels in the right lower quadrant. s/p drain placement, 04/06. PSAE/Bacteroides/VRE Wound dehiscence Nasal bridge from BiPAP and abd wound looks worse as has increased in size (pictures 04/08) Leukocytosis - improved Thrombocytopenia, resolved EC fistula Abdominal abscess, measuring 6.4 x 4.9 cm. s/p drain 03/12. Klebsiella ( R to Zosyn, S Cipro/Levo), VRE (R PCN) and PSAE ( R to ticarcillin only otherwise sensitive, S Cipro/Levo) and C tropicalis -h/o Strep anginosis and Bacteroides Ventral hernia DM HTN PCN allergy/amox also - hives and swelling Elevated CK - improved Plan Plan of Care Repeat BC from 04/12 NGTD Cont Zyvox (04/11), Micafungin, Flagyl and Cefepime 04/07 f/u cultures and monitor CBC/temp Supportive care D/w son Guarded prognosis overall given resp failure/deconditioning and worsening wounds Attending Co-Sign The patient was seen and interviewed as well as examined at the bedside. The chart was reviewed. The case was discussed. Agree with the plan of care. SERAFIN MOTT APRN Apr 14, 2017 09:22 SANDRA RODNEY MD Apr 14, 2017 13:55
[2017-04-14] MEDS: ASPIRIN CHEWABLE 81 MG TABLET. PO SCH (09:32)
[2017-04-14] MEDS: FERROUS SULFATE 325 MG TABLET. PO SCH (09:32)
[2017-04-14] MEDS: FUROSEMIDE 40 MG/4 ML VIAL. IVP SCH (09:33)
[2017-04-14] MEDS: PANTOPRAZOLE IV PUSH 40 MG VIAL. IVP SCH (09:33)
[2017-04-14] MEDS: ENOXAPARIN 40 MG/0.4 ML SYRINGE. SQ SCH (09:33)
--- NOTE | 2017-04-14 09:49 | PDOC ---
GENERAL General: vss and afebrile. awake and alert and son in attendance. on bi-pap, broad spectrum antibiotics, and pressors. chest with decreased breath sounds, heart slightly tachycardic, blood pressure 98 systolic, abdomen soft and benign with dressings on wounds. Hb 9.0 and normal wbc. albumin only 0.9 which is extremely low and is on TPN with elevated sugars as result of same. continue supportive care and would like to see the acute on chronic respiratory failure and nutritional status improving for better prognosis. Problems: VITAL SIGNS Vital Signs: Vital Signs Date Time Temp Pulse Resp B/P (MAP) Pulse Ox O2 Delivery O2 Flow Rate FiO2 04/14/17 09:00 115 73/44 04/14/17 08:00 5.0 04/14/17 08:00 Bi-pap 04/14/17 08:00 98.9 37 99 98.9 I & O I & O Intake and Output 04/14/17 07:00 Intake Total 2160 ml Output Total 1835 ml Balance 325 ml IV Total 2160 ml Output Urine Total 1835 ml ALLERGIES Allergies: Allergies Coded Allergies Type Severity Reaction Last Updated Verified Penicillins Allergy Intermediate TOLERATES MERREM, CEFPODOXIME 03/12/17 Yes adhesive tape Allergy Intermediate Rash 10/15/15 Yes latex Allergy Intermediate Rash 12/21/14 Yes I S O L A T I O N *CONTACT* Allergy Unknown 03/16/17 Yes metformin Adverse Reaction Intermediate nausea/diarrhea 10/15/15 Yes MEDS Medications: Current Medications Medications (Trade) Dose Ordered Sig/Michelle Start Time Stop Time Status Last Admin Dose Admin Acetaminophen (Tylenol) 650 mg PRN QID PRN 03/09/17 20:30 03/30/17 17:43 650 MG Acetaminophen/ Hydrocodone Bitart (Lortab 7.5/325) 1 tab PRN Q6HRS PRN 03/12/17 18:15 04/13/17 23:15 1 TAB Albumin Human 100 ml @ 100 mls/hr Q8H 03/28/17 09:00 03/29/17 01:59 DC 03/29/17 00:42 100 MLS/HR Aspirin (Children'S Aspirin) 81 mg DAILY 03/10/17 15:00 04/14/17 09:32 81 MG Bupivacaine HCl/ Epinephrine Bitart (Sensorcain-Mpf Epi 0.5%-1:380007) 30 ml STK-MED ONCE 03/24/17 10:28 03/24/17 10:29 DC 03/24/17 15:56 10 ML Cefepime HCl (Maxipime) 1 gm Q8HRS 04/07/17 14:00 04/14/17 05:51 1 GM Cefepime HCl 1 gm/ Dextrose 50 ml @ 100 mls/hr Q8HRS 04/07/17 14:00 UNV Ceftriaxone Sodium 50 ml @ 100 mls/hr 1X ONCE 03/09/17 09:30 03/09/17 09:55 DC Ciprofloxacin/ Dextrose 200 ml @ 200 mls/hr Q12HR 03/30/17 09:00 04/04/17 10:45 DC 04/04/17 08:58 200 MLS/HR Clopidogrel Bisulfate (Plavix) 75 mg DAILY 03/10/17 15:00 03/22/17 09:10 DC 03/19/17 10:00 75 MG Daptomycin 460 mg/ Sodium Chloride 50 ml @ 100 mls/hr Q24H 03/27/17 09:00 04/12/17 07:49 DC 04/11/17 09:41 100 MLS/HR Dexamethasone Sodium Phosphate (Decadron) 20 mg STK-MED ONCE 03/24/17 14:40 03/24/17 14:41 DC Dextrose/Lactated Ringer's 1,000 ml @ 75 mls/hr [id number] 03/25/17 17:00 04/04/17 09:23 DC 04/03/17 08:54 75 MLS/HR Diclofenac Sodium (Voltaren) 75 mg DAILY 03/10/17 14:30 03/29/17 10:50 DC 03/23/17 09:23 75 MG Digoxin (Lanoxin) 250 mcg 1X ONCE 03/27/17 12:00 03/27/17 12:01 DC 03/27/17 12:09 250 MCG Dopamine HCl/ Dextrose 250 ml @ As Directed STK-MED ONCE 04/06/17 14:50 04/06/17 14:51 DC Enoxaparin Sodium (Lovenox 40mg Syringe) 40 mg Q24H 04/11/17 09:00 04/14/17 09:33 40 MG Enoxaparin Sodium (Lovenox 80mg Syringe) 80 mg Q12HR 03/26/17 20:00 03/28/17 15:36 DC 03/27/17 21:51 80 MG Enoxaparin Sodium (Lovenox Per Pharmacy Treatment Dosing) 1 each PRN DAILY PRN 03/26/17 19:30 03/28/17 12:38 DC Famotidine (Pepcid Vial) 40 mg QHS 03/25/17 21:00 03/29/17 08:02 DC 03/28/17 21:35 40 MG Famotidine (Pepcid) 20 mg QHS 03/10/17 21:00 03/26/17 09:35 DC 03/24/17 21:20 20 MG Fentanyl Citrate (Fentanyl 2ml Vial) 100 mcg STK-MED ONCE 04/06/17 14:45 04/06/17 14:46 DC Ferrous Sulfate (Feosol) 325 mg DAILY 03/10/17 15:00 04/14/17 09:32 325 MG Fluconazole (Diflucan) 200 mg DAILY 03/22/17 09:30 03/25/17 10:51 DC 03/23/17 09:24 200 MG Fluconazole/ Sodium Chloride 100 ml @ 100 mls/hr Q24H 03/25/17 11:00 04/07/17 13:39 DC 04/07/17 11:52 100 MLS/HR Flumazenil (Romazicon) 0.5 mg STK-MED ONCE 04/06/17 14:45 04/06/17 14:46 DC Furosemide (Lasix) 40 mg 1X ONCE 04/09/17 08:15 04/09/17 08:16 DC 04/09/17 10:03 40 MG Glimepiride (Amaryl) 0.5 mg DAILY08 03/24/17 08:00 03/27/17 13:05 DC Glycopyrrolate (Robinul) 1 mg STK-MED ONCE 03/24/17 15:11 03/24/17 15:12 DC Hydromorphone HCl 30 ml @ 0 mls/hr CONT PRN PRN 03/24/17 20:45 03/24/17 23:16 0 MLS/HR Hydromorphone HCl (Dilaudid) 0.5 mg PRN Q10MIN PRN 03/24/17 07:45 03/25/17 07:44 DC Info (Do NOT chart on this entry -- for MONITORING) 1 each PRN DAILY PRN 04/05/17 13:00 04/07/17 12:59 DC Insulin Detemir (Levemir) 26 units QHS 04/13/17 21:00 04/13/17 21:56 26 UNITS Iohexol (Omnipaque 240 Mg/ml) 30 ml 1X ONCE 04/05/17 13:00 04/05/17 13:01 DC Iohexol (Omnipaque 300 Mg/ml) 75 ml 1X ONCE 04/05/17 13:00 04/05/17 13:01 DC Lactobacillus Rhamnosus (Culturelle) 1 cap BID 03/12/17 21:00 03/25/17 21:06 DC 03/24/17 21:20 1 CAP Levofloxacin/ Dextrose 100 ml @ 100 mls/hr Q24H 04/04/17 21:00 04/07/17 13:39 DC 04/06/17 21:47 100 MLS/HR Lidocaine HCl (Lidocaine Pf 2% Vial) 5 ml STK-MED ONCE 03/24/17 14:40 03/24/17 14:41 DC Lidocaine HCl (Xylocaine-Mpf 1% Vial) 2 ml 1X PRN PRN 03/24/17 07:45 03/25/17 07:44 DC Lidocaine/Sodium Bicarbonate (Buffered Lidocaine 1%) 7 ml 1X ONCE 04/06/17 15:30 04/06/17 15:31 DC 04/06/17 15:20 7 ML Linezolid 300 ml @ 300 mls/hr Q12HR 04/12/17 09:00 04/14/17 09:34 300 MLS/HR Linezolid (Zyvox) 600 mg BID 03/14/17 13:15 03/25/17 10:49 DC 03/24/17 21:20 600 MG Lorazepam (Ativan) 0.5 mg PRN Q8HRS PRN 04/14/17 09:00 Meropenem (Merrem) 500 mg Q8HRS 03/16/17 14:00 03/30/17 07:49 DC 03/30/17 06:04 500 MG Meropenem 500 mg/ Sodium Chloride 50 ml @ 100 mls/hr Q8HRS 03/09/17 13:00 03/16/17 12:59 DC 03/16/17 06:09 100 MLS/HR Metoprolol Succinate (Toprol Xl) 12.5 mg DAILY 03/23/17 09:00 04/11/17 09:43 12.5 MG Metoprolol Tartrate (Lopressor) 12.5 mg BID 03/10/17 15:00 03/10/17 21:01 DC 03/10/17 16:01 12.5 MG Metronidazole 100 ml @ 100 mls/hr Q8HRS 04/07/17 14:00 04/14/17 05:51 100 MLS/HR Micafungin Sodium 100 mg/Sodium Chloride 100 ml @ 100 mls/hr Q24H 04/07/17 14:00 04/13/17 15:00 100 MLS/HR Midazolam HCl (Versed) 2 mg STK-MED ONCE 04/06/17 14:45 04/06/17 14:46 DC Morphine Sulfate 10 mg STK-MED ONCE 03/24/17 16:02 03/24/17 16:03 DC Naloxone HCl (Narcan) 0.4 mg STK-MED ONCE 04/06/17 14:45 04/06/17 14:46 DC Neostigmine Methylsulfate (Bloxiverz) 10 mg STK-MED ONCE 03/24/17 14:38 03/24/17 14:39 DC Norepinephrine Bitartrate (Levophed 8mg/ 250ml Premix Drip) 8 mg STK-MED ONCE 04/11/17 16:00 04/12/17 09:06 DC Ondansetron HCl (Zofran) 4 mg STK-MED ONCE 03/24/17 14:40 03/24/17 14:41 DC Pantoprazole Sodium (PROTONIX VIAL for IV PUSH) 40 mg DAILYAC 03/25/17 10:15 04/14/17 09:33 40 MG Phenylephrine HCl (Corky-Synephrine Inj) 10 mg STK-MED ONCE 03/24/17 17:27 03/24/17 17:28 DC Prochlorperazine Edisylate (Compazine) 5 mg PRN Q4HRS PRN 03/25/17 07:45 Propofol 20 ml @ As Directed STK-MED ONCE 03/24/17 14:40 03/24/17 14:41 DC Ringer's Solution 1,000 ml @ 100 mls/hr Q10H 03/24/17 20:43 03/25/17 16:52 DC 03/25/17 12:32 100 MLS/HR Rocuronium Lima (Zemuron) 100 mg STK-MED ONCE 03/24/17 17:57 03/24/17 17:58 DC Sodium Chloride (Normal Saline Flush) 3 ml QSHIFT PRN 03/24/17 20:45 Sodium Chloride 90 meq/Potassium Chloride 50 meq/ Potassium Phosphate 13.6 mmol/Magnesium Sulfate 20 meq/ Calcium Gluconate 10 meq/ Multivitamins 10 ml/Chromium/ Copper/Manganese/ Seleni/Zn 1 ml/ Total Parenteral Nutrition/Amino Acids/Dextrose/ Fat Emulsion Intravenous 1,512 ml @ 63 mls/hr TPN CONT 04/09/17 22:00 04/10/17 21:59 DC 04/09/17 21:52 63 MLS/HR Sodium Chloride 90 meq/Potassium Chloride 50 meq/ Potassium Phosphate 20.4 mmol/Magnesium Sulfate 10 meq/ Calcium Gluconate 10 meq/ Multivitamins 10 ml/Chromium/ Copper/Manganese/ Seleni/Zn 1 ml/ Total Parenteral Nutrition/Amino Acids/Dextrose/ Fat Emulsion Intravenous 1,512 ml @ 63 mls/hr TPN CONT 04/03/17 22:00 04/04/17 21:59 DC 04/03/17 21:38 63 MLS/HR Sodium Chloride 90 meq/Potassium Chloride 50 meq/ Potassium Phosphate 20.4 mmol/Magnesium Sulfate 16 meq/ Calcium Gluconate 10 meq/ Multivitamins 10 ml/Chromium/ Copper/Manganese/ Seleni/Zn 1 ml/ Total Parenteral Nutrition/Amino Acids/Dextrose/ Fat Emulsion Intravenous 1,512 ml @ 63 mls/hr TPN CONT 04/04/17 22:00 04/05/17 21:59 DC 04/04/17 21:16 63 MLS/HR Sodium Chloride 90 meq/Potassium Chloride 50 meq/ Potassium Phosphate 20.4 mmol/Magnesium Sulfate 24 meq/ Calcium Gluconate 10 meq/ Multivitamins 10 ml/Chromium/ Copper/Manganese/ Seleni/Zn 1 ml/ Total Parenteral Nutrition/Amino Acids/Dextrose/ Fat Emulsion Intravenous 1,512 ml @ 63 mls/hr TPN CONT 04/06/17 22:00 04/07/17 21:59 DC 04/06/17 21:45 63 MLS/HR Sodium Chloride 90 meq/Potassium Chloride 60 meq/ Potassium Phosphate 13.6 mmol/Magnesium Sulfate 15 meq/ Calcium Gluconate 8 meq/ Multivitamins 10 ml/Chromium/ Copper/Manganese/ Seleni/Zn 1 ml/ Total Parenteral Nutrition/Amino Acids/Dextrose/ Fat Emulsion Intravenous 1,512 ml @ 63 mls/hr TPN CONT 04/13/17 22:00 04/14/17 21:59 04/13/17 21:45 63 MLS/HR Sodium Chloride 90 meq/Potassium Chloride 60 meq/ Potassium Phosphate 13.6 mmol/Magnesium Sulfate 20 meq/ Calcium Gluconate 10 meq/ Multivitamins 10 ml/Chromium/ Copper/Manganese/ Seleni/Zn 1 ml/ Total Parenteral Nutrition/Amino Acids/Dextrose/ Fat Emulsion Intravenous 1,512 ml @ 63 mls/hr TPN CONT 04/12/17 22:00 04/13/17 21:59 DC 04/12/17 22:15 63 MLS/HR LAB Lab: Laboratory Tests Test 04/13/17 21:53 Glucose (Fingerstick) 297 mg/dL (70-99) MERLENE ARAUZ MD Apr 14, 2017 09:49
[2017-04-14] MEDS: TPN PER PHARMACY MC PRN (11:14)
[2017-04-14] MEDS: LORazepam 0.5 MG TABLET PO PRN ×2 (11:34→21:27)
[2017-04-14] MEDS: ONDANSETRON PF 4 MG/2 ML VIAL. IV PRN (11:55)
--- NOTE | 2017-04-14 14:07 | PDOC ---
PULMONARY PROGRESS NOTES Subjective PT TRANSFERRED TO ICU 04/09 NOW BIPAP Vitals Vital Signs Date Time Temp Pulse Resp B/P (MAP) Pulse Ox O2 Delivery O2 Flow Rate FiO2 04/14/17 13:00 109 30 104/58 (73) 99 Nasal Cannula 4.0 04/14/17 12:00 99.1 99.1 General: Alert Lungs: Clear Cardiovascular: S1, S2 Abdomen: Soft, Other (continues to have drainage from the abdo wound,lower incision site,brownish fluid) Neuro Exam: Alert Extremities: Other (1+edema) Skin: Warm Labs Laboratory Tests Test 04/13/17 05:40 04/13/17 21:53 White Blood Count 7.4 x10^3/uL (4.0-11.0) Red Blood Count 3.22 x10^6/uL (3.50-5.40) Hemoglobin 9.0 g/dL (12.0-15.5) Hematocrit 28.1 % (36.0-47.0) Mean Corpuscular Volume 87 fL (79-100) Mean Corpuscular Hemoglobin 28 pg (25-35) Mean Corpuscular Hemoglobin Concent 32 g/dL (31-37) Red Cell Distribution Width 18.1 % (11.5-14.5) Platelet Count 421 x10^3/uL (140-400) Neutrophils (%) (Auto) 78 % (31-73) Lymphocytes (%) (Auto) 15 % (24-48) Monocytes (%) (Auto) 7 % (0-9) Eosinophils (%) (Auto) 0 % (0-3) Basophils (%) (Auto) 0 % (0-3) Neutrophils # (Auto) 5.8 x10^3uL (1.8-7.7) Lymphocytes # (Auto) 1.1 x10^3/uL (1.0-4.8) Monocytes # (Auto) 0.5 x10^3/uL (0.0-1.1) Eosinophils # (Auto) 0.0 x10^3/uL (0.0-0.7) Basophils # (Auto) 0.0 x10^3/uL (0.0-0.2) Sodium Level 138 mmol/L (136-145) Potassium Level 4.3 mmol/L (3.5-5.1) Chloride Level 103 mmol/L (98-107) Carbon Dioxide Level 28 mmol/L (21-32) Anion Gap 7 (6-14) Blood Urea Nitrogen 20 mg/dL (7-20) Creatinine 0.7 mg/dL (0.6-1.0) Estimated GFR (Cockcroft-Gault) 82.5 BUN/Creatinine Ratio 29 (6-20) Glucose Level 272 mg/dL (70-99) Calcium Level 8.0 mg/dL (8.5-10.1) Phosphorus Level 2.8 mg/dL (2.6-4.7) Magnesium Level 2.5 mg/dL (1.8-2.4) Total Bilirubin 0.3 mg/dL (0.2-1.0) Aspartate Amino Transf (AST/SGOT) 14 U/L (15-37) Alanine Aminotransferase (ALT/SGPT) 8 U/L (14-59) Alkaline Phosphatase 72 U/L (46-116) Total Protein 5.2 g/dL (6.4-8.2) Albumin 0.9 g/dL (3.4-5.0) Albumin/Globulin Ratio 0.2 (1.0-1.7) Glucose (Fingerstick) 297 mg/dL (70-99) Laboratory Tests Test 04/13/17 21:53 Glucose (Fingerstick) 297 mg/dL (70-99) Medications Active Scripts Medications Dose Route/Sig Max Daily Dose Days Date Category Flagyl (Metronidazole) 500 Mg Tablet 1 Tab PO BID 03/01/17 Reported Cefpodoxime Proxetil 200 Mg Tablet 1 Tab PO BID 03/01/17 Reported Ferrous Sulfate 325 Mg Tablet 1 Tab PO DAILY 02/23/17 Reported Lasix (Furosemide) 40 Mg Tablet 40 Mg PO QODAY 02/23/17 Reported Potassium Chloride 10 Meq Capsule.er 10 Meq PO QODAY 02/23/17 Reported Metoprolol Tartrate 25 Mg Tablet 12.5 Mg PO BID 01/31/17 Reported Atorvastatin Calcium 40 Mg Tablet 40 Mg PO HS 01/31/17 Reported Clopidogrel (Clopidogrel Bisulfate) 75 Mg Tablet 1 Tab PO DAILY 08/24/15 Reported Diclofenac Sodium 75 Mg Tablet.dr 75 Mg PO DAILY 12/21/14 Reported Ranitidine Hcl 150 Mg Tablet 1 Tab PO BID 12/21/14 Reported Aspirin 81 Mg Tab.chew 1 Tab PO DAILY 04/15/14 Reported Impression . 1. Uraqh-fq-[id number] respiratory failure, MULTIFACTORIAL 2. Status post laparoscopic converted to open exploration for extensive lysis of adhesion, removal of old mesh, subtotal colectomy, small bowel resection and incisional hernia repair 3. Obesity, body mass index of 35. 4. Leukocytosis. 5. Enterocutaneous fistula. Abdominal abscess, measuring 6.4 x 4.9 cm. s/p drain 03/12. Klebsiella ( R to Zosyn, S Cipro/Levo), VRE (R PCN) and PSAE ( R to ticarcillin only otherwise sensitive, S Cipro/Levo) and C tropicalis -h/o Strep anginosis and Bacteroides 6. Fever RESOLVED 7. Abdominal abscess. 8. Ventral hernia, status post repair. 9. Bilateral effusions due to low oncotic pressure/ repeat cxr 04/02 with volume loss bases, no sig. fluid to tap, small effusions on ct 04/05 10. Anxiety disorder Palliative Care Spoke with patient and son Chris. Patient off BiPap ---feels better. RR 32-34. Reviewed conversations patient and son had with physicians. Patient wants to continue to try to get better. Son Chris supportive of her wish. Understands that this will need to be evaluated closely as respiratory condition could decline rapidly. Encouraged patient and son to have conversation about any limitations of care that she would want. They understand that recovery could be a long process. Will continue to follow closely. Chris will be at work tomorrow but available by phone if anything changes. Plan . RESP STATUS IS COMPENSATED NOT IMPROVING PT WISHES TO PROCEED WITH FULL PRESS FOR NOW WILL USE BIPAP QHS AND PRN, I SPOKE WITH PT ON SEVERAL OCCASION AND TRIED TO INFORM HER THAT I DO NOT RECOMMEND INTUBATION REPEAT CT ABDOMEN/PELVIS REVIEWED/ SMALL EFFUSIONS, DOES NOT NEED TAP LASIX PRN VENOUS DOPPLER NEGATIVE/ CT NEGATIVE FOR PE MONITOR PLATELET / MUCH IMPROVED ANXIETY/ ON SCHEDULED ATIVAN D/W SON 04/10/PT NOW A FULL CODE I WOULD FAVOR NO INTUBATION I THINK IF SHE GET INTUBATED SHE WILL END UP WITH TRACH AND ASSISTED NON WEANABLE UNIT IFEOMA SEXTON MD Apr 14, 2017 14:07
[2017-04-14] MEDS: MICAFUNGIN 100 MG in IV NORMAL SALINE 100ML 100 ML IV SCH (14:21)
[2017-04-14] MEDS: HYDROcodone/APAP 7.5/325MG 1 TAB TABLET PO PRN ×2 (14:22→21:27)
[2017-04-14] MEDS: INSULIN DETEMIR 300 UNITS/3 ML INSULN.PEN. SQ SCH ×2 (21:29→21:54)
[2017-04-14] MEDS ORDERED: AMINO ACIDS IV SCH ×20 (22:00)
[2017-04-14] MEDS ORDERED: [UNRECOGNIZED DRUG - OTHER] IV SCH ×10 (22:00)
[2017-04-14] MEDS ORDERED: TOTAL PARENTERAL NUTRITION IV SCH ×20 (22:00)
[2017-04-14] MEDS ORDERED: DEXTROSE 70% IV SCH ×20 (22:00)
[2017-04-14] MEDS ORDERED: [UNRECOGNIZED DRUG - OTHER] IV SCH ×10 (22:00)
[2017-04-15] VITALS (23 sets, daily range): BP systolic 79–139; BP diastolic 36–99
[2017-04-15] MEDS: fentaNYL PF VIAL 100 MCG/2 ML VIAL IV PRN ×4 (04:37→21:49)
[2017-04-15] MEDS: CEFEPIME HCL IV Push 1 GM VIAL. IVP SCH ×3 (05:52→21:50)
[2017-04-15] MEDS: HYDROcodone/APAP 7.5/325MG 1 TAB TABLET PO PRN ×3 (05:57→23:31)
--- NOTE | 2017-04-15 06:50 | PDOC ---
PULMONARY PROGRESS NOTES Subjective PT TRANSFERRED TO ICU 04/09 OFF BIPAP LAST 24 HOURS Vitals Vital Signs Date Time Temp Pulse Resp B/P (MAP) Pulse Ox O2 Delivery O2 Flow Rate FiO2 04/15/17 06:00 120 30 101/87 (92) 97 Nasal Cannula 4.0 04/15/17 04:00 98.6 98.6 ROS: No Nausea, No Chest Pain, No Abdominal Pain, No Increase Cough General: Alert Lungs: Clear Cardiovascular: S1, S2 Abdomen: Soft, Other (continues to have drainage from the abdo wound,lower incision site,brownish fluid) Neuro Exam: Alert Extremities: Other (1+edema) Skin: Warm Labs Laboratory Tests Test 04/13/17 21:53 04/14/17 21:25 Glucose (Fingerstick) 297 mg/dL (70-99) 348 mg/dL (70-99) Laboratory Tests Test 04/14/17 21:25 Glucose (Fingerstick) 348 mg/dL (70-99) Medications Active Scripts Medications Dose Route/Sig Max Daily Dose Days Date Category Flagyl (Metronidazole) 500 Mg Tablet 1 Tab PO BID 03/01/17 Reported Cefpodoxime Proxetil 200 Mg Tablet 1 Tab PO BID 03/01/17 Reported Ferrous Sulfate 325 Mg Tablet 1 Tab PO DAILY 02/23/17 Reported Lasix (Furosemide) 40 Mg Tablet 40 Mg PO QODAY 02/23/17 Reported Potassium Chloride 10 Meq Capsule.er 10 Meq PO QODAY 02/23/17 Reported Metoprolol Tartrate 25 Mg Tablet 12.5 Mg PO BID 01/31/17 Reported Atorvastatin Calcium 40 Mg Tablet 40 Mg PO HS 01/31/17 Reported Clopidogrel (Clopidogrel Bisulfate) 75 Mg Tablet 1 Tab PO DAILY 08/24/15 Reported Diclofenac Sodium 75 Mg Tablet.dr 75 Mg PO DAILY 12/21/14 Reported Ranitidine Hcl 150 Mg Tablet 1 Tab PO BID 12/21/14 Reported Aspirin 81 Mg Tab.chew 1 Tab PO DAILY 04/15/14 Reported Impression . 1. Oefbj-sa-eepcnif respiratory failure, MULTIFACTORIAL 2. Status post laparoscopic converted to open exploration for extensive lysis of adhesion, removal of old mesh, subtotal colectomy, small bowel resection and incisional hernia repair 3. Obesity, body mass index of 35. 4. Leukocytosis. 5. Enterocutaneous fistula. Abdominal abscess, measuring 6.4 x 4.9 cm. s/p drain 03/12. Klebsiella ( R to Zosyn, S Cipro/Levo), VRE (R PCN) and PSAE ( R to ticarcillin only otherwise sensitive, S Cipro/Levo) and C tropicalis -h/o Strep anginosis and Bacteroides 6. Fever RESOLVED 7. Abdominal abscess. 8. Ventral hernia, status post repair. 9. Bilateral effusions due to low oncotic pressure/ repeat cxr 04/02 with volume loss bases, no sig. fluid to tap, small effusions on ct 04/05 10. Anxiety disorder Palliative Care Spoke with patient and son Chris. Patient off BiPap ---feels better. RR 32-34. Reviewed conversations patient and son had with physicians. Patient wants to continue to try to get better. Son Chris supportive of her wish. Understands that this will need to be evaluated closely as respiratory condition could decline rapidly. Encouraged patient and son to have conversation about any limitations of care that she would want. They understand that recovery could be a long process. Will continue to follow closely. Chris will be at work tomorrow but available by phone if anything changes. Plan . RESP STATUS IS COMPENSATED, IMPROVING WILL REPEAT CXR PALLIATIVE CARE TO FOLLOW UP NEXT WEEK WILL USE BIPAP QHS AND PRN, I SPOKE WITH PT ON SEVERAL OCCASION AND TRIED TO INFORM HER THAT I DO NOT RECOMMEND INTUBATION REPEAT CT ABDOMEN/PELVIS REVIEWED/ SMALL EFFUSIONS, DOES NOT NEED TAP LASIX PRN VENOUS DOPPLER NEGATIVE/ CT NEGATIVE FOR PE MONITOR PLATELET / MUCH IMPROVED ANXIETY/ ON SCHEDULED ATIVAN D/W SON 04/10/PT NOW A FULL CODE I WOULD FAVOR NO INTUBATION I THINK IF SHE GET INTUBATED SHE WILL END UP WITH [facility] AND [facility] IFEOMA SEXTON MD Apr 15, 2017 06:50
[2017-04-15] MEDS: METOPROLOL SUCC 24HR ER 25 MG TAB.ER.24H. PO SCH (07:41)
--- NOTE | 2017-04-15 08:38 | PDOC ---
Infectious Disease Note Subjective Subjective Off BiPAP for nearly 24 hours c/o left-sided abdominal pain TPN No fever Hypotensive, up to Levophed 14 mcg ROS ROS GEN: Denies fevers, chills, sweats CV: Denies chest pain RESP: Denies shortness of air, cough GI: Denies n/v Vital Sign Vital Signs Vital Signs Date Time Temp Pulse Resp B/P (MAP) Pulse Ox O2 Delivery O2 Flow Rate FiO2 04/15/17 06:00 120 30 101/87 (92) 97 Nasal Cannula 4.0 04/15/17 04:00 98.6 98.6 Physical Exam PHYSICAL EXAM GENERAL: Awake, calm HEENT: Oral cavity dry LUNGS: Clear anteriorly, nonlabored CV: S1 and S2, irregular ABD: BS active, soft, NT light palpation. Ostomy + output, distal incision dehiscence, + drainage. + drain intact : [place] EXT: BLE edema, no cyanosis SKIN: Without rash, warm to touch STRATEGIC COMMUNICATIONS SPECIALIST: Alert, oriented, following commands RUE-PICC. clean Labs Lab Laboratory Tests Test 04/14/17 21:25 Glucose (Fingerstick) 348 mg/dL (70-99) Micro 04/12. BLOOD CULTURE Preliminary NO GROWTH AFTER 2 DAY Objective Assessment [id number] respiratory failure, off BiPAP - pleural effusions -stable and small/ LE U/S 04/08 neg. ECHO 03/22 EF 40 - 45 %. Repeat 04/10 45 % Hypotension - on Levophed Severe Protein malnutrition Decreasing UOP - improved Fever, UA neg - some better Elevated TSH - T4 in normal range Acute Anemia - s/p PRBCs one unit 04/08 s/p lap converted to open exploration, JAIRO, removal of infected mesh, subtotal colectomy, SBR and hernia repair, 03/24. 10.0 x 5.5 x 18.0 cm fluid collection with air-fluid levels in the right lower quadrant. s/p drain placement, 04/06. PSAE/Bacteroides/VRE Wound dehiscence Nasal bridge from BiPAP and abd wound looks worse as has increased in size (pictures 04/08) Leukocytosis - improved Thrombocytopenia, resolved EC fistula Abdominal abscess, measuring 6.4 x 4.9 cm. s/p drain 03/12. Klebsiella ( R to Zosyn, S Cipro/Levo), VRE (R PCN) and PSAE ( R to ticarcillin only otherwise sensitive, S Cipro/Levo) and C tropicalis -h/o Strep anginosis and Bacteroides Ventral hernia DM HTN PCN allergy/amox also - hives and swelling Elevated CK - improved Plan Plan of Care Repeat BC from 04/12 NGTD Cont Zyvox (04/11), Micafungin, Flagyl and Cefepime 04/07 f/u cultures and monitor CBC/temp Supportive care Guarded prognosis overall given resp failure/deconditioning and worsening wounds Attending Co-Sign The patient was seen and interviewed as well as examined at the bedside. The chart was reviewed. The case was discussed. Agree with the plan of care. SERAFIN MOTT APRN Apr 15, 2017 08:38 SANDRA RODNEY MD Apr 15, 2017 13:22
--- NOTE | 2017-04-15 09:24 | RAD ---
AP chest. History: Respiratory failure AP view was taken of the chest. Right PICC line is in good position unchanged. There are bilateral effusions larger on the right. There is atelectasis in the right lung base. There's been a mild improvement in the vascular congestion without other change compared to the study from April 09. Impression: 1. Little interval change.
[2017-04-15] MEDS: NOREPINEPHRIN PREMIX 250 ML IV PRN ×2 (09:26→19:51)
[2017-04-15] MEDS: ENOXAPARIN 40 MG/0.4 ML SYRINGE. SQ SCH (09:29)
[2017-04-15] MEDS: FERROUS SULFATE 325 MG TABLET. PO SCH (09:29)
[2017-04-15] MEDS: ASPIRIN CHEWABLE 81 MG TABLET. PO SCH (09:29)
[2017-04-15] MEDS: PANTOPRAZOLE IV PUSH 40 MG VIAL. IVP SCH (09:30)
[2017-04-15] MEDS: FUROSEMIDE 40 MG/4 ML VIAL. IVP SCH (09:30)
[2017-04-15] MEDS: TPN PER PHARMACY MC PRN (11:34)
--- NOTE | 2017-04-15 11:35 | PDOC ---
GENERAL General: tachycardic(130), hypotensive, and diaphoretic when I saw trying to sit up on side of bed and had brief syncopal episode remedied by laying her down with rapid return to awake and alert. sugars remain high with TPN. heart tachycardic , chest with decreased breath sounds at bases, and abdomen soft and benign. cxr this am with R>L pleural effusions. remains on pressors and broad spectrum antibiotics. continue supportive care. Problems: VITAL SIGNS Vital Signs: Vital Signs Date Time Temp Pulse Resp B/P (MAP) Pulse Ox O2 Delivery O2 Flow Rate FiO2 04/15/17 10:00 112 31 106/65 (79) 99 Nasal Cannula 4.0 04/15/17 08:00 98.5 98.5 I & O I & O Intake and Output 04/15/17 07:00 Intake Total 3529 ml Output Total 3295 ml Balance 234 ml Intake Oral 500 ml IV Total 3029 ml Output Urine Total 3120 ml Stool Total 175 ml Drainage Total 0 ml ALLERGIES Allergies: Allergies Coded Allergies Type Severity Reaction Last Updated Verified Penicillins Allergy Intermediate TOLERATES MERREM, CEFPODOXIME 03/12/17 Yes adhesive tape Allergy Intermediate Rash 10/15/15 Yes latex Allergy Intermediate Rash 12/21/14 Yes I S O L A T I O N *CONTACT* Allergy Unknown 03/16/17 Yes metformin Adverse Reaction Intermediate nausea/diarrhea 10/15/15 Yes MEDS Medications: Current Medications Medications (Trade) Dose Ordered Sig/Michelle Start Time Stop Time Status Last Admin Dose Admin Acetaminophen (Tylenol) 650 mg PRN QID PRN 03/09/17 20:30 03/30/17 17:43 650 MG Acetaminophen/ Hydrocodone Bitart (Lortab 7.5/325) 1 tab PRN Q6HRS PRN 03/12/17 18:15 04/15/17 05:57 1 TAB Albumin Human 100 ml @ 100 mls/hr Q8H 03/28/17 09:00 03/29/17 01:59 DC 03/29/17 00:42 100 MLS/HR Aspirin (Children'S Aspirin) 81 mg DAILY 03/10/17 15:00 04/15/17 09:29 81 MG Bupivacaine HCl/ Epinephrine Bitart (Sensorcain-Mpf Epi 0.5%-1:[id number]) 30 ml STK-MED ONCE 03/24/17 10:28 03/24/17 10:29 DC 03/24/17 15:56 10 ML Cefepime HCl (Maxipime) 1 gm Q8HRS 04/07/17 14:00 04/15/17 05:52 1 GM Cefepime HCl 1 gm/ Dextrose 50 ml @ 100 mls/hr Q8HRS 04/07/17 14:00 UNV Ceftriaxone Sodium 50 ml @ 100 mls/hr 1X ONCE 03/09/17 09:30 03/09/17 09:55 DC Ciprofloxacin/ Dextrose 200 ml @ 200 mls/hr Q12HR 03/30/17 09:00 04/04/17 10:45 DC 04/04/17 08:58 200 MLS/HR Clopidogrel Bisulfate (Plavix) 75 mg DAILY 03/10/17 15:00 03/22/17 09:10 DC 03/19/17 10:00 75 MG Daptomycin 460 mg/ Sodium Chloride 50 ml @ 100 mls/hr Q24H 03/27/17 09:00 04/12/17 07:49 DC 04/11/17 09:41 100 MLS/HR Dexamethasone Sodium Phosphate (Decadron) 20 mg STK-MED ONCE 03/24/17 14:40 03/24/17 14:41 DC Dextrose/Lactated Ringer's 1,000 ml @ 75 mls/hr [id number] 03/25/17 17:00 04/04/17 09:23 DC 04/03/17 08:54 75 MLS/HR Diclofenac Sodium (Voltaren) 75 mg DAILY 03/10/17 14:30 03/29/17 10:50 DC 03/23/17 09:23 75 MG Digoxin (Lanoxin) 250 mcg 1X ONCE 03/27/17 12:00 03/27/17 12:01 DC 03/27/17 12:09 250 MCG Dopamine HCl/ Dextrose 250 ml @ As Directed STK-MED ONCE 04/06/17 14:50 04/06/17 14:51 DC Enoxaparin Sodium (Lovenox 40mg Syringe) 40 mg Q24H 04/11/17 09:00 04/15/17 09:29 40 MG Enoxaparin Sodium (Lovenox 80mg Syringe) 80 mg Q12HR 03/26/17 20:00 03/28/17 15:36 DC 03/27/17 21:51 80 MG Enoxaparin Sodium (Lovenox Per Pharmacy Treatment Dosing) 1 each PRN DAILY PRN 03/26/17 19:30 03/28/17 12:38 DC Famotidine (Pepcid Vial) 40 mg QHS 03/25/17 21:00 03/29/17 08:02 DC 03/28/17 21:35 40 MG Famotidine (Pepcid) 20 mg QHS 03/10/17 21:00 03/26/17 09:35 DC 03/24/17 21:20 20 MG Fentanyl Citrate (Fentanyl 2ml Vial) 100 mcg STK-MED ONCE 04/06/17 14:45 04/06/17 14:46 DC Ferrous Sulfate (Feosol) 325 mg DAILY 03/10/17 15:00 04/15/17 09:29 325 MG Fluconazole (Diflucan) 200 mg DAILY 03/22/17 09:30 03/25/17 10:51 DC 03/23/17 09:24 200 MG Fluconazole/ Sodium Chloride 100 ml @ 100 mls/hr Q24H 03/25/17 11:00 04/07/17 13:39 DC 04/07/17 11:52 100 MLS/HR Flumazenil (Romazicon) 0.5 mg STK-MED ONCE 04/06/17 14:45 04/06/17 14:46 DC Furosemide (Lasix) 40 mg 1X ONCE 04/09/17 08:15 04/09/17 08:16 DC 04/09/17 10:03 40 MG Glimepiride (Amaryl) 0.5 mg DAILY08 03/24/17 08:00 03/27/17 13:05 DC Glycopyrrolate (Robinul) 1 mg STK-MED ONCE 03/24/17 15:11 03/24/17 15:12 DC Hydromorphone HCl 30 ml @ 0 mls/hr CONT PRN PRN 03/24/17 20:45 03/24/17 23:16 0 MLS/HR Hydromorphone HCl (Dilaudid) 0.5 mg PRN Q10MIN PRN 03/24/17 07:45 03/25/17 07:44 DC Info (Do NOT chart on this entry -- for MONITORING) 1 each PRN DAILY PRN 04/05/17 13:00 04/07/17 12:59 DC Insulin Detemir (Levemir) 30 units QHS 04/14/17 22:00 04/14/17 21:54 30 UNITS Iohexol (Omnipaque 240 Mg/ml) 30 ml 1X ONCE 04/05/17 13:00 04/05/17 13:01 DC Iohexol (Omnipaque 300 Mg/ml) 75 ml 1X ONCE 04/05/17 13:00 04/05/17 13:01 DC Lactobacillus Rhamnosus (Culturelle) 1 cap BID 03/12/17 21:00 03/25/17 21:06 DC 03/24/17 21:20 1 CAP Levofloxacin/ Dextrose 100 ml @ 100 mls/hr Q24H 04/04/17 21:00 04/07/17 13:39 DC 04/06/17 21:47 100 MLS/HR Lidocaine HCl (Lidocaine Pf 2% Vial) 5 ml STK-MED ONCE 03/24/17 14:40 03/24/17 14:41 DC Lidocaine HCl (Xylocaine-Mpf 1% Vial) 2 ml 1X PRN PRN 03/24/17 07:45 03/25/17 07:44 DC Lidocaine/Sodium Bicarbonate (Buffered Lidocaine 1%) 7 ml 1X ONCE 04/06/17 15:30 04/06/17 15:31 DC 04/06/17 15:20 7 ML Linezolid 300 ml @ 300 mls/hr Q12HR 04/12/17 09:00 04/15/17 09:29 300 MLS/HR Linezolid (Zyvox) 600 mg BID 03/14/17 13:15 03/25/17 10:49 DC 03/24/17 21:20 600 MG Lorazepam (Ativan) 0.5 mg PRN Q8HRS PRN 04/14/17 09:00 04/14/17 21:27 0.5 MG Meropenem (Merrem) 500 mg Q8HRS 03/16/17 14:00 03/30/17 07:49 DC 03/30/17 06:04 500 MG Meropenem 500 mg/ Sodium Chloride 50 ml @ 100 mls/hr Q8HRS 03/09/17 13:00 03/16/17 12:59 DC 03/16/17 06:09 100 MLS/HR Metoprolol Succinate (Toprol Xl) 12.5 mg DAILY 03/23/17 09:00 04/11/17 09:43 12.5 MG Metoprolol Tartrate (Lopressor) 12.5 mg BID 03/10/17 15:00 03/10/17 21:01 DC 03/10/17 16:01 12.5 MG Metronidazole 100 ml @ 100 mls/hr Q8HRS 04/07/17 14:00 04/15/17 05:52 100 MLS/HR Micafungin Sodium 100 mg/Sodium Chloride 100 ml @ 100 mls/hr Q24H 04/07/17 14:00 04/14/17 14:21 100 MLS/HR Midazolam HCl (Versed) 2 mg STK-MED ONCE 04/06/17 14:45 04/06/17 14:46 DC Morphine Sulfate 10 mg STK-MED ONCE 03/24/17 16:02 03/24/17 16:03 DC Naloxone HCl (Narcan) 0.4 mg STK-MED ONCE 04/06/17 14:45 04/06/17 14:46 DC Neostigmine Methylsulfate (Bloxiverz) 10 mg STK-MED ONCE 03/24/17 14:38 03/24/17 14:39 DC Norepinephrine Bitartrate (Levophed 8mg/ 250ml Premix Drip) 8 mg STK-MED ONCE 04/11/17 16:00 04/12/17 09:06 DC Ondansetron HCl (Zofran) 4 mg STK-MED ONCE 03/24/17 14:40 03/24/17 14:41 DC Pantoprazole Sodium (PROTONIX VIAL for IV PUSH) 40 mg DAILYAC 03/25/17 10:15 04/15/17 09:30 40 MG Phenylephrine HCl (Corky-Synephrine Inj) 10 mg STK-MED ONCE 03/24/17 17:27 03/24/17 17:28 DC Prochlorperazine Edisylate (Compazine) 5 mg PRN Q4HRS PRN 03/25/17 07:45 Propofol 20 ml @ As Directed STK-MED ONCE 03/24/17 14:40 03/24/17 14:41 DC Ringer's Solution 1,000 ml @ 100 mls/hr Q10H 03/24/17 20:43 03/25/17 16:52 DC 03/25/17 12:32 100 MLS/HR Rocuronium [place] (Zemuron) 100 mg STK-MED ONCE 03/24/17 17:57 03/24/17 17:58 DC Sodium Chloride (Normal Saline Flush) 3 ml QSHIFT PRN 03/24/17 20:45 Sodium Chloride 90 meq/Potassium Chloride 50 meq/ Potassium Phosphate 13.6 mmol/Magnesium Sulfate 20 meq/ Calcium Gluconate 10 meq/ Multivitamins 10 ml/Chromium/ Copper/Manganese/ Seleni/Zn 1 ml/ Total Parenteral Nutrition/Amino Acids/Dextrose/ Fat Emulsion Intravenous 1,512 ml @ 63 mls/hr TPN CONT 04/09/17 22:00 04/10/17 21:59 DC 04/09/17 21:52 63 MLS/HR Sodium Chloride 90 meq/Potassium Chloride 50 meq/ Potassium Phosphate 20.4 mmol/Magnesium Sulfate 10 meq/ Calcium Gluconate 10 meq/ Multivitamins 10 ml/Chromium/ Copper/Manganese/ Seleni/Zn 1 ml/ Total Parenteral Nutrition/Amino Acids/Dextrose/ Fat Emulsion Intravenous 1,512 ml @ 63 mls/hr TPN CONT 04/03/17 22:00 04/04/17 21:59 DC 04/03/17 21:38 63 MLS/HR Sodium Chloride 90 meq/Potassium Chloride 50 meq/ Potassium Phosphate 20.4 mmol/Magnesium Sulfate 16 meq/ Calcium Gluconate 10 meq/ Multivitamins 10 ml/Chromium/ Copper/Manganese/ Seleni/Zn 1 ml/ Total Parenteral Nutrition/Amino Acids/Dextrose/ Fat Emulsion Intravenous 1,512 ml @ 63 mls/hr TPN CONT 04/04/17 22:00 04/05/17 21:59 DC 04/04/17 21:16 63 MLS/HR Sodium Chloride 90 meq/Potassium Chloride 50 meq/ Potassium Phosphate 20.4 mmol/Magnesium Sulfate 24 meq/ Calcium Gluconate 10 meq/ Multivitamins 10 ml/Chromium/ Copper/Manganese/ Seleni/Zn 1 ml/ Total Parenteral Nutrition/Amino Acids/Dextrose/ Fat Emulsion Intravenous 1,512 ml @ 63 mls/hr TPN CONT 04/06/17 22:00 04/07/17 21:59 DC 04/06/17 21:45 63 MLS/HR Sodium Chloride 90 meq/Potassium Chloride 60 meq/ Potassium Phosphate 13.6 mmol/Magnesium Sulfate 10 meq/ Calcium Gluconate 8 meq/ Multivitamins 10 ml/Chromium/ Copper/Manganese/ Seleni/Zn 1 ml/ Total Parenteral Nutrition/Amino Acids/Dextrose/ Fat Emulsion Intravenous 1,512 ml @ 63 mls/hr TPN CONT 04/14/17 22:00 04/14/17 22:00 DC Sodium Chloride 90 meq/Potassium Chloride 60 meq/ Potassium Phosphate 13.6 mmol/Magnesium Sulfate 15 meq/ Calcium Gluconate 8 meq/ Multivitamins 10 ml/Chromium/ Copper/Manganese/ Seleni/Zn 1 ml/ Total Parenteral Nutrition/Amino Acids/Dextrose/ Fat Emulsion Intravenous 1,512 ml @ 63 mls/hr TPN CONT 04/14/17 22:00 04/15/17 21:59 04/14/17 21:27 63 MLS/HR Sodium Chloride 90 meq/Potassium Chloride 60 meq/ Potassium Phosphate 13.6 mmol/Magnesium Sulfate 20 meq/ Calcium Gluconate 10 meq/ Multivitamins 10 ml/Chromium/ Copper/Manganese/ Seleni/Zn 1 ml/ Total Parenteral Nutrition/Amino Acids/Dextrose/ Fat Emulsion Intravenous 1,512 ml @ 63 mls/hr TPN CONT 04/12/17 22:00 04/13/17 21:59 DC 04/12/17 22:15 63 MLS/HR LAB Lab: Laboratory Tests Test 04/14/17 21:25 Glucose (Fingerstick) 348 mg/dL (70-99) MERLENE ARAUZ MD Apr 15, 2017 11:35
[2017-04-15] MEDS: MICAFUNGIN 100 MG in IV NORMAL SALINE 100ML 100 ML IV SCH (15:11)
[2017-04-15] MEDS ORDERED: DEXTROSE 50% 25 GM / 50ML DISP.SYRIN. IV PRN (15:30)
[2017-04-15] MEDS: INSULIN ASPART 300 UNITS/3 ML INSULN.PEN SQ SCH (17:12)
[2017-04-15] MEDS: INSULIN DETEMIR 300 UNITS/3 ML INSULN.PEN. SQ SCH (21:56)
[2017-04-15] MEDS ORDERED: TOTAL PARENTERAL NUTRITION IV SCH ×10 (22:00)
[2017-04-15] MEDS ORDERED: [UNRECOGNIZED DRUG - OTHER] IV SCH ×10 (22:00)
[2017-04-15] MEDS ORDERED: DEXTROSE 70% IV SCH ×10 (22:00)
[2017-04-15] MEDS ORDERED: AMINO ACIDS IV SCH ×10 (22:00)
[2017-04-15] MEDS: LORazepam 0.5 MG TABLET PO PRN (23:30)
[2017-04-16] VITALS (24 sets, daily range): BP systolic 83–123; BP diastolic 44–79
[2017-04-16] MEDS: INSULIN ASPART 300 UNITS/3 ML INSULN.PEN SQ SCH ×4 (00:35→17:36)
[2017-04-16] MEDS: ONDANSETRON PF 4 MG/2 ML VIAL. IV PRN (05:09)
[2017-04-16] MEDS: fentaNYL PF VIAL 100 MCG/2 ML VIAL IV PRN ×4 (05:10→18:02)
[2017-04-16] MEDS: CEFEPIME HCL IV Push 1 GM VIAL. IVP SCH ×3 (05:10→21:23)
[2017-04-16 07:58] LABS: BASO % 0 % (0-3); EOS % 0 % (0-3); HEMATOCRIT 31.6 % (36.0-47.0); HEMOGLOBIN 9.8 g/dL (12.0-15.5); LYMPH # 1.1 x10^3/uL (1.0-4.8); LYMPH % 13 % (24-48); MEAN CORPUSCULAR HEMOGLOBIN 28 pg (25-35); MEAN CORPUSCULAR HGB CONC 31 g/dL (31-37); MEAN CORPUSCULAR VOLUME 90 fL (79-100); MONO % 5 % (0-9); NEUT % 82 % (31-73); PLATELET COUNT 428 x10^3/uL (140-400); RED BLOOD COUNT 3.52 x10^6/uL (3.50-5.40)
--- NOTE | 2017-04-16 08:01 | RAD ---
Portable chest, 04/16/2017: History history: Respiratory failure Comparison is made to yesterday's study. A right PICC extends into the inferior aspect of the superior vena cava. The heart size and pulmonary vascularity are normal. There is a moderate unchanged right basilar opacity suggesting pleural fluid and underlying atelectasis. There is a retrocardiac density on the left suggesting a combination of left lower lobe atelectasis and pleural fluid. No new abnormality is detected. IMPRESSION: No significant change since yesterday's study.
[2017-04-16] MEDS: ENOXAPARIN 40 MG/0.4 ML SYRINGE. SQ SCH (08:03)
[2017-04-16] MEDS: FERROUS SULFATE 325 MG TABLET. PO SCH (08:03)
[2017-04-16] MEDS: PANTOPRAZOLE IV PUSH 40 MG VIAL. IVP SCH (08:03)
[2017-04-16] MEDS: ASPIRIN CHEWABLE 81 MG TABLET. PO SCH (08:03)
[2017-04-16] MEDS: METOPROLOL SUCC 24HR ER 25 MG TAB.ER.24H. PO SCH (08:04)
[2017-04-16] MEDS: LORazepam 0.5 MG TABLET PO PRN ×2 (08:04→21:14)
[2017-04-16] MEDS: FUROSEMIDE 40 MG/4 ML VIAL. IVP SCH (08:04)
[2017-04-16] MEDS: NOREPINEPHRIN PREMIX 250 ML IV PRN (08:06)
--- NOTE | 2017-04-16 08:09 | PDOC ---
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: Alert, oriented x 3, no focal neurologic deficit SKIN: No rash IV: ok Labs Lab Laboratory Tests Test 04/15/17 11:33 04/15/17 17:10 04/15/17 21:47 04/16/17 00:33 Glucose (Fingerstick) 380 mg/dL (70-99) 321 mg/dL (70-99) 301 mg/dL (70-99) 340 mg/dL (70-99) Test 04/16/17 06:19 04/16/17 07:15 Glucose (Fingerstick) 230 mg/dL (70-99) White Blood Count 8.0 x10^3/uL (4.0-11.0) Red Blood Count 3.52 x10^6/uL (3.50-5.40) Hemoglobin 9.8 g/dL (12.0-15.5) Hematocrit 31.6 % (36.0-47.0) Mean Corpuscular Volume 90 fL (79-100) Mean Corpuscular Hemoglobin 28 pg (25-35) Mean Corpuscular Hemoglobin Concent 31 g/dL (31-37) Red Cell Distribution Width 18.0 % (11.5-14.5) Platelet Count 428 x10^3/uL (140-400) Neutrophils (%) (Auto) 82 % (31-73) Lymphocytes (%) (Auto) 13 % (24-48) Monocytes (%) (Auto) 5 % (0-9) Eosinophils (%) (Auto) 0 % (0-3) Basophils (%) (Auto) 0 % (0-3) Neutrophils # (Auto) 6.6 x10^3uL (1.8-7.7) Lymphocytes # (Auto) 1.1 x10^3/uL (1.0-4.8) Monocytes # (Auto) 0.4 x10^3/uL (0.0-1.1) Eosinophils # (Auto) 0.0 x10^3/uL (0.0-0.7) Basophils # (Auto) 0.0 x10^3/uL (0.0-0.2) Objective Assessment s/p lap converted to open exploration, JAIRO, removal of infected mesh, subtotal colectomy, SBR and hernia repair, 03/24 Leukocytosis, likely reactive, (Dexamethasone pre-op) EC fistula Fever - better Abdominal abscess, measuring 6.4 x 4.9 cm. s/p drain 03/12. Klebsiella ( R to Zosyn, S Cipro/Levo), VRE (R PCN) and PSAE ( R to ticarcillin only otherwise sensitive, S Cipro/Levo) and C tropicalis h/o Strep anginosis and Bacteroides Ventral hernia DM HTN PCN allergy/amox also - hives and swelling Low plt Plan Plan of Care Repeat BC from 04/12 NGTD Cont Zyvox (04/11), Micafungin, Flagyl and Cefepime 04/07 f/u cultures and monitor CBC/temp Supportive care Guarded prognosis overall given resp failure/deconditioning and worsening wounds SANDRA RODNEY MD Apr 16, 2017 08:09
[2017-04-16] MEDS ORDERED: ALTEPLASE 2 MG VIAL INT CAT ONE ×4 (09:00→11:15)
--- NOTE | 2017-04-16 09:01 | PDOC ---
PROGRESS NOTES Subjective Subjective HPI - f/u of Thrombocytosis ROS - off BIPAP Objective Objective Vital Signs Date Time Temp Pulse Resp B/P (MAP) Pulse Ox O2 Delivery O2 Flow Rate FiO2 04/16/17 08:35 28 98 Nasal Cannula 4.0 04/16/17 08:04 124 98/52 04/16/17 08:00 99.4 99.4 Intake and Output 04/16/17 07:00 Intake Total 2028 ml Output Total 3345 ml Balance -1317 ml Intake Oral 0 ml IV Total 2028 ml Output Urine Total 3005 ml Stool Total 340 ml Physical Exam General: Alert, mild distress Assessment Assessment Problems Medical Problems: (1) Abdominal abscess Status: Acute (2) Abdominal pain Status: Acute A/P: 1. Thrombocytosis reactive - previously thrombocytopenia.Resolved. Plt count now 428. 2. Anemia. Most likely multifactorial. Iron studies are suggestive of anemia of chronic disease. /B12 normal. Hb 9.8 monitor and transfuse as needed. 3. Abscess. Management as per primary/surgery 4. Status post laparoscopic converted to open exploration for extensive lysis of adhesion, removal of old mesh, subtotal colectomy, small bowel resection and incisional hernia repair. 5. [id number] respiratory failure. Persistent dyspnea/ now off BIPAP - appreciate pulm f/u. Comment Review of Relevant I have reviewed the following items chito (where applicable) has been applied. Labs Laboratory Tests Test 04/14/17 21:25 04/15/17 11:33 04/15/17 17:10 04/15/17 21:47 Glucose (Fingerstick) 348 mg/dL (70-99) 380 mg/dL (70-99) 321 mg/dL (70-99) 301 mg/dL (70-99) Test 04/16/17 00:33 04/16/17 06:19 04/16/17 07:15 Glucose (Fingerstick) 340 mg/dL (70-99) 230 mg/dL (70-99) White Blood Count 8.0 x10^3/uL (4.0-11.0) Red Blood Count 3.52 x10^6/uL (3.50-5.40) Hemoglobin 9.8 g/dL (12.0-15.5) Hematocrit 31.6 % (36.0-47.0) Mean Corpuscular Volume 90 fL (79-100) Mean Corpuscular Hemoglobin 28 pg (25-35) Mean Corpuscular Hemoglobin Concent 31 g/dL (31-37) Red Cell Distribution Width 18.0 % (11.5-14.5) Platelet Count 428 x10^3/uL (140-400) Neutrophils (%) (Auto) 82 % (31-73) Lymphocytes (%) (Auto) 13 % (24-48) Monocytes (%) (Auto) 5 % (0-9) Eosinophils (%) (Auto) 0 % (0-3) Basophils (%) (Auto) 0 % (0-3) Neutrophils # (Auto) 6.6 x10^3uL (1.8-7.7) Lymphocytes # (Auto) 1.1 x10^3/uL (1.0-4.8) Monocytes # (Auto) 0.4 x10^3/uL (0.0-1.1) Eosinophils # (Auto) 0.0 x10^3/uL (0.0-0.7) Basophils # (Auto) 0.0 x10^3/uL (0.0-0.2) Laboratory Tests Test 04/15/17 11:33 04/15/17 17:10 04/15/17 21:47 04/16/17 00:33 Glucose (Fingerstick) 380 mg/dL (70-99) 321 mg/dL (70-99) 301 mg/dL (70-99) 340 mg/dL (70-99) Test 04/16/17 06:19 04/16/17 07:15 Glucose (Fingerstick) 230 mg/dL (70-99) White Blood Count 8.0 x10^3/uL (4.0-11.0) Red Blood Count 3.52 x10^6/uL (3.50-5.40) Hemoglobin 9.8 g/dL (12.0-15.5) Hematocrit 31.6 % (36.0-47.0) Mean Corpuscular Volume 90 fL (79-100) Mean Corpuscular Hemoglobin 28 pg (25-35) Mean Corpuscular Hemoglobin Concent 31 g/dL (31-37) Red Cell Distribution Width 18.0 % (11.5-14.5) Platelet Count 428 x10^3/uL (140-400) Neutrophils (%) (Auto) 82 % (31-73) Lymphocytes (%) (Auto) 13 % (24-48) Monocytes (%) (Auto) 5 % (0-9) Eosinophils (%) (Auto) 0 % (0-3) Basophils (%) (Auto) 0 % (0-3) Neutrophils # (Auto) 6.6 x10^3uL (1.8-7.7) Lymphocytes # (Auto) 1.1 x10^3/uL (1.0-4.8) Monocytes # (Auto) 0.4 x10^3/uL (0.0-1.1) Eosinophils # (Auto) 0.0 x10^3/uL (0.0-0.7) Basophils # (Auto) 0.0 x10^3/uL (0.0-0.2) Microbiology 04/12/17 Blood Culture - Preliminary, Resulted NO GROWTH AFTER 3 DAYS 04/06/17 Anaerobic/Aerobic Culture - Final, Complete 04/06/17 Anaerobic Culture Result 1 (KULDEEP) - Final, Complete 04/06/17 Anaerobic Culture Result 2 (KULDEEP) - Final, Complete 04/06/17 Aerobic Culture - Final, Complete 04/06/17 Aerobic Culture Result 1 (KULDEEP) - Final, Complete 04/06/17 Aerobic Culture Result 2 (KULDEEP) - Final, Complete 04/06/17 Aerobic Culture Result 3 (KULDEEP) - Final, Complete 04/06/17 Antimicrobic Susceptibility - Final, Complete 03/09/17 Urine Culture - Final, Complete 03/09/17 Urine Culture Result 1 (KULDEEP) - Final, Complete 03/12/17 Fungal Culture - Final, Complete 03/12/17 Fungal Culture Result 1 - Final, Complete Medications Current Medications Ondansetron HCl (Zofran) 4 mg 1X ONCE IV Last administered on 03/09/17 08:30 ; Start 03/09/17 at 08:15; Stop 03/09/17 at 08:16; Status DC Iohexol (Omnipaque 300 Mg/ml) 75 ml 1X ONCE IV Last administered on 03/09/17 08:50; Start 03/09/17 at 08:45; Stop 03/09/17 at 08:46; Status DC Info (Do NOT chart on this entry -- for MONITORING) 1 each PRN DAILY PRN MC SEE COMMENTS; Start 03/09/17 at 08:45; Stop 03/11/17 at 08:44; Status DC Ceftriaxone Sodium 50 ml @ 100 mls/hr 1X ONCE IV ; Start 03/09/17 at 09:30; Stop 03/09/17 at 09:55; Status DC Sodium Chloride 1,000 ml @ 1,000 mls/hr 1X ONCE IV Last administered on 09:55; Start 03/09/17 at 10:00; Stop 03/09/17 at 10:59; Status DC Ondansetron HCl (Zofran) 4 mg PRN Q8HRS PRN IV NAUSEA/VOMITING; Start 03/09/17 at 10:30; Stop 03/10/17 at 10:29; Status DC Meropenem 500 mg/ Sodium Chloride 50 ml @ 100 mls/hr Q8HRS IV Last administered on 03/16/17 06:09; Start 03/09/17 at 13:00; Stop 03/16/17 at 12: 59; Status DC Acetaminophen (Tylenol) 650 mg PRN QID PRN PO MILD PAIN / TEMP Last administered on 03/30/17 17:43; Start 03/09/17 at 20:30 Aspirin (Children'S Aspirin) 81 mg DAILY PO Last administered on 04/16/17 08: 03; Start 03/10/17 at 15:00 Clopidogrel Bisulfate (Plavix) 75 mg DAILY PO Last administered on 03/19/17 10:00; Start 03/10/17 at 15:00; Stop 03/22/17 at 09:10; Status DC Ferrous Sulfate (Feosol) 325 mg DAILY PO Last administered on 04/16/17 08:03 ; Start 03/10/17 at 15:00 Metoprolol Tartrate (Lopressor) 12.5 mg BID PO Last administered on 03/10/17 16:01; Start 03/10/17 at 15:00; Stop 03/10/17 at 21:01; Status DC Diclofenac Sodium (Voltaren) 75 mg DAILY PO Last administered on 03/23/17 09: 23; Start 03/10/17 at 14:30; Stop 03/29/17 at 10:50; Status DC Famotidine (Pepcid) 20 mg QHS PO Last administered on 03/24/17 21:20; Start 03/10/17 at 21:00; Stop 03/26/17 at 09:35; Status DC Glimepiride (Amaryl) 1 mg DAILY PO Last administered on 03/13/17 09:25; Start 03/11/17 at 15:00; Stop 03/13/17 at 17:02; Status DC Sodium Chloride 1,000 ml @ 100 mls/hr 1X ONCE IV Last administered on 21:00; Start 03/10/17 at 21:00; Stop 03/11/17 at 06:59; Status DC Lidocaine/Sodium Bicarbonate (Buffered Lidocaine 1%) 20 ml STK-MED ONCE IJ ; Start 03/12/17 at 13:05; Stop 03/12/17 at 13:06; Status DC Fentanyl Citrate (Fentanyl 2ml Vial) 100 mcg STK-MED ONCE .ROUTE ; Start at 13:20; Stop 03/12/17 at 13:21; Status DC Midazolam HCl (Versed) 2 mg STK-MED ONCE .ROUTE ; Start 03/12/17 at 13:20; Stop 03/12/17 at 13:21; Status DC Flumazenil (Romazicon) 0.5 mg STK-MED ONCE IV ; Start 03/12/17 at 13:20; Stop 03/12/17 at 13:21; Status DC Naloxone HCl (Narcan) 0.4 mg STK-MED ONCE .ROUTE ; Start 03/12/17 at 13:20; Stop 03/12/17 at 13:21; Status DC Lidocaine/Sodium Bicarbonate (Buffered Lidocaine 1%) 20 ml 1X ONCE IJ Last administered on 03/12/17 13:50; Start 03/12/17 at 13:30; Stop 03/12/17 at 13:33 ; Status DC Midazolam HCl (Versed) 2 mg 1X ONCE IV Last administered on 03/12/17 13:50; Start 03/12/17 at 13:30; Stop 03/12/17 at 13:33; Status DC Fentanyl Citrate (Fentanyl 2ml Vial) 100 mcg 1X ONCE IV Last administered on 03/12/17 13:50; Start 03/12/17 at 13:30; Stop 03/12/17 at 13:33; Status DC Lactobacillus Rhamnosus (Culturelle) 1 cap BID PO Last administered on 21:20; Start 03/12/17 at 21:00; Stop 03/25/17 at 21:06; Status DC Acetaminophen/ Hydrocodone Bitart (Lortab 7.5/325) 1 tab PRN Q6HRS PRN PO MODERATE - SEVERE PAIN Last administered on 04/15/17 23:31; Start 03/12/17 at 18:15 Ondansetron HCl (Zofran) 4 mg PRN Q6HRS PRN IV NAUSEA/VOMITING, 1ST CHOICE Last administered on 04/16/17 05:09; Start 03/13/17 at 09:00 Furosemide (Lasix) 40 mg QODAY PO Last administered on 03/22/17 09:39; Start 03/14/17 at 09:00; Stop 03/26/17 at 09:00; Status DC Glimepiride (Amaryl) 1 mg DAILY08 PO Last administered on 03/22/17 09:40; Start 03/14/17 at 08:00; Stop 03/23/17 at 08:52; Status DC Linezolid (Zyvox) 600 mg BID PO Last administered on 03/24/17 21:20; Start 03/14/17 at 13:15; Stop 03/25/17 at 10:49; Status DC Meropenem (Merrem) 500 mg Q8HRS IVP Last administered on 03/30/17 06:04; Start 03/16/17 at 14:00; Stop 03/30/17 at 07:49; Status DC Iohexol (Omnipaque 240 Mg/ml) 50 ml STK-MED ONCE .ROUTE ; Start 03/19/17 at 13: 11; Stop 03/19/17 at 13:12; Status DC Iohexol (Omnipaque 240 Mg/ml) 10 ml 1X ONCE IJ Last administered on 14:07; Start 03/19/17 at 14:00; Stop 03/19/17 at 14:01; Status DC Info (Do NOT chart on this entry -- for MONITORING) 1 each PRN DAILY PRN MC SEE COMMENTS; Start 03/19/17 at 14:00; Stop 03/21/17 at 13:59; Status DC Iohexol (Omnipaque 240 Mg/ml) 50 ml STK-MED ONCE .ROUTE ; Start 03/19/17 at 13: 55; Stop 03/19/17 at 13:56; Status DC Fluconazole (Diflucan) 200 mg DAILY PO Last administered on 03/23/17 09:24; Start 03/22/17 at 09:30; Stop 03/25/17 at 10:51; Status DC Metoprolol Succinate (Toprol Xl) 12.5 mg DAILY PO Last administered on 08:04; Start 03/23/17 at 09:00 Glimepiride (Amaryl) 0.5 mg DAILY08 PO ; Start 03/24/17 at 08:00; Stop at 13:05; Status DC Morphine Sulfate 1 mg PRN Q10MIN PRN IV SEVERE PAIN; Start 03/26/17 at 07:00; Stop 03/26/17 at 07:00; Status DC Ringer's Solution 1,000 ml @ 30 mls/hr Q24H IV ; Start 03/26/17 at 07:00; Stop 03/26/17 at 07:00; Status DC Lidocaine HCl (Xylocaine-Mpf 1% Vial) 2 ml PRN 1X PRN ID PRIOR TO IV START; Start 03/26/17 at 07:00; Stop 03/26/17 at 07:00; Status DC Hydromorphone HCl (Dilaudid) 0.5 mg PRN Q10MIN PRN IV SEV PAIN, Second choice; Start 03/26/17 at 07:00; Stop 03/27/17 at 06:59; Status Cancel Prochlorperazine Edisylate (Compazine) 5 mg PACU PRN PRN IV NAUSEA, MRX1 Last administered on 03/25/17 07:45; Start 03/26/17 at 07:00; Stop 03/26/17 at 07 :00; Status DC Morphine Sulfate 1 mg PRN Q10MIN PRN IV SEVERE PAIN; Start 03/24/17 at 07:45; Stop 03/25/17 at 07:44; Status DC Ringer's Solution 1,000 ml @ 30 mls/hr Q24H IV Last administered on 14:15; Start 03/24/17 at 07:32; Stop 03/24/17 at 19:31; Status DC Lidocaine HCl (Xylocaine-Mpf 1% Vial) 2 ml 1X PRN PRN ID IV START; Start 03/24 at 07:45; Stop 03/25/17 at 07:44; Status DC Hydromorphone HCl (Dilaudid) 0.5 mg PRN Q10MIN PRN IV SEV PAIN, Second choice; Start 03/24/17 at 07:45; Stop 03/25/17 at 07:44; Status DC Prochlorperazine Edisylate (Compazine) 5 mg PACU PRN PRN IV NAUSEA, MRX1; Start 03/24/17 at 07:45; Stop 03/25/17 at 07:44; Status DC Bupivacaine HCl/ Epinephrine Bitart (Sensorcain-Mpf Epi 0.5%-[id number]) 30 ml STK -MED ONCE .ROUTE Last administered on 03/24/17t 15:56; Start 03/24/17 at 10: 28; Stop 03/24/17 at 10:29; Status DC Neostigmine Methylsulfate (Bloxiverz) 10 mg STK-MED ONCE .ROUTE ; Start at 14:38; Stop 03/24/17 at 14:39; Status DC Rocuronium Fortuna (Zemuron) 50 mg STK-MED ONCE .ROUTE ; Start 03/24/17 at 14: 38; Stop 03/24/17 at 14:39; Status DC Fentanyl Citrate (Fentanyl 2ml Vial) 100 mcg STK-MED ONCE .ROUTE ; Start at 14:38; Stop 03/24/17 at 14:39; Status DC Phenylephrine HCl 1 mg STK-MED ONCE IV ; Start 03/24/17 at 14:40; Stop at 14:41; Status DC Lidocaine HCl (Lidocaine Pf 2% Vial) 5 ml STK-MED ONCE .ROUTE ; Start 03/24/17 at 14:40; Stop 03/24/17 at 14:41; Status DC Dexamethasone Sodium Phosphate (Decadron) 20 mg STK-MED ONCE .ROUTE ; Start at 14:40; Stop 03/24/17 at 14:41; Status DC Ondansetron HCl (Zofran) 4 mg STK-MED ONCE .ROUTE ; Start 03/24/17 at 14:40; Stop 03/24/17 at 14:41; Status DC Propofol 20 ml @ As Directed STK-MED ONCE IV ; Start 03/24/17 at 14:40; Stop 03/24/17 at 14:41; Status DC Glycopyrrolate (Robinul) 1 mg STK-MED ONCE .ROUTE ; Start 03/24/17 at 15:11; Stop 03/24/17 at 15:12; Status DC Rocuronium Fortuna (Zemuron) 50 mg STK-MED ONCE .ROUTE ; Start 03/24/17 at 15: 53; Stop 03/24/17 at 15:54; Status DC Fentanyl Citrate (Fentanyl 2ml Vial) 100 mcg STK-MED ONCE .ROUTE ; Start at 16:01; Stop 03/24/17 at 16:02; Status DC Morphine Sulfate 10 mg STK-MED ONCE .ROUTE ; Start 03/24/17 at 16:02; Stop at 16:03; Status DC Albumin Human 500 ml @ As Directed STK-MED ONCE IV ; Start 03/24/17 at 17:03; Stop 03/24/17 at 17:04; Status DC Phenylephrine HCl (Corky-Synephrine Inj) 10 mg STK-MED ONCE .ROUTE ; Start at 17:27; Stop 03/24/17 at 17:28; Status DC Rocuronium Fortuna (Zemuron) 100 mg STK-MED ONCE .ROUTE ; Start 03/24/17 at 17: 57; Stop 03/24/17 at 17:58; Status DC Enoxaparin Sodium (Lovenox 40mg Syringe) 40 mg Q24H SQ Last administered on t 20:51; Start 03/24/17 at 20:45; Stop 03/26/17 at 19:34; Status DC Sodium Chloride (Normal Saline Flush) 3 ml QSHIFT PRN IV AFTER MEDS AND BLOOD DRAWS; Start 03/24/17 at 20:45 Ringer's Solution 1,000 ml @ 100 mls/hr Q10H IV Last administered on t 12:32; Start 03/24/17 at 20:43; Stop 03/25/17 at 16:52; Status DC Naloxone HCl (Narcan) 0.4 mg PRN Q2MIN PRN IV SEE INSTRUCTIONS; Start at 20:45 Sodium Chloride 1,000 ml @ 25 mls/hr Q24H IV Last administered on 03/27/17 12:08; Start 03/24/17 at 20:43; Stop 04/15/17 at 10:40; Status DC Hydromorphone HCl 30 ml @ 0 mls/hr CONT PRN PRN IV PROTOCOL Last administered on 03/24/17 23:16; Start 03/24/17 at 20:45 Prochlorperazine Edisylate (Compazine) 5 mg PRN Q4HRS PRN IV NAUSEA/VOMITING, 2ND CHOICE; Start 03/25/17 at 07:45 Pantoprazole Sodium (PROTONIX VIAL for IV PUSH) 40 mg DAILYAC IVP Last administered on 04/16/17 08:03; Start 03/25/17 at 10:15 Linezolid 300 ml @ 300 mls/hr Q12HR IV Last administered on 03/26/17 20:54; Start 03/25/17 at 11:00; Stop 03/27/17 at 08:05; Status DC Fluconazole/ Sodium Chloride 100 ml @ 100 mls/hr Q24H IV Last administered on 04/07/17 11:52; Start 03/25/17 at 11:00; Stop 04/07/17 at 13:39; Status DC Dextrose/Lactated Ringer's 1,000 ml @ 75 mls/hr [id number] IV Last administered on 04/03/17 08:54; Start 03/25/17 at 17:00; Stop 04/04/17 at 09:23; Status DC Famotidine (Pepcid Vial) 40 mg QHS IVP Last administered on 03/28/17 21:35; Start 03/25/17 at 21:00; Stop 03/29/17 at 08:02; Status DC Lorazepam (Ativan) 0.5 mg 1X ONCE IV ; Start 03/26/17 at 07:00; Stop at 07:01; Status Cancel Lorazepam (Ativan) 0.5 mg PRN Q8HRS PRN PO ANXIETY / AGITATION; Start at 07:00; Status Cancel Furosemide (Lasix) 40 mg 1X ONCE IVP Last administered on 03/26/17 09:54; Start 03/26/17 at 09:00; Stop 03/26/17 at 09:01; Status DC Furosemide (Lasix) 20 mg DAILY IVP Last administered on 03/30/17 09:29; Start 03/27/17 at 09:00; Stop 03/31/17 at 12:22; Status DC Digoxin (Lanoxin) 250 mcg 1X ONCE IV Last administered on 03/26/17 15:06; Start 03/26/17 at 15:15; Stop 03/26/17 at 15:16; Status DC Iohexol (Omnipaque 300 Mg/ml) 75 ml 1X ONCE IV Last administered on 16:41; Start 03/26/17 at 16:45; Stop 03/26/17 at 16:46; Status DC Info (Do NOT chart on this entry -- for MONITORING) 1 each PRN DAILY PRN MC SEE COMMENTS; Start 03/26/17 at 16:45; Stop 03/28/17 at 16:44; Status DC Norepinephrine Bitartrate 250 ml @ As Directed STK-MED ONCE IV ; Start at 17:42; Stop 03/26/17 at 17:43; Status DC Norepinephrine Bitartrate 250 ml @ 0 mls/hr CONT PRN IV SEE I/O RECORD Last administered on 03/26/17 18:01; Start 03/26/17 at 18:00; Stop 04/04/17 at 09 :57; Status DC Enoxaparin Sodium (Lovenox Per Pharmacy Treatment Dosing) 1 each PRN DAILY PRN MC SEE COMMENTS; Start 03/26/17 at 19:30; Stop 03/28/17 at 12:38; Status DC Enoxaparin Sodium (Lovenox 80mg Syringe) 80 mg Q12HR SQ Last administered on 21:51; Start 03/26/17 at 20:00; Stop 03/28/17 at 15:36; Status DC Daptomycin 460 mg/ Sodium Chloride 50 ml @ 100 mls/hr Q24H IV Last administered on 04/11/17 09:41; Start 03/27/17 at 09:00; Stop 04/12/17 at 07: 49; Status DC Digoxin (Lanoxin) 250 mcg 1X ONCE IV Last administered on 03/27/17 12:09; Start 03/27/17 at 12:00; Stop 03/27/17 at 12:01; Status DC Insulin Detemir (Levemir) 5 units QHS SQ Last administered on 04/04/17 21:30 ; Start 03/27/17 at 21:00; Stop 04/05/17 at 09:34; Status DC Albumin Human 100 ml @ 100 mls/hr Q8H IV Last administered on 03/29/17 00:42 ; Start 03/28/17 at 09:00; Stop 03/29/17 at 01:59; Status DC Lorazepam (Ativan) 1 mg PRN Q6HRS PRN PO ANXIETY / AGITATION Last administered on 04/07/17 05:43; Start 03/28/17 at 16:00; Stop 04/07/17 at 16:34; Status DC Iohexol (Omnipaque 300 Mg/ml) 75 ml 1X ONCE IV Last administered on 16:00; Start 03/28/17 at 16:00; Stop 03/28/17 at 16:02; Status DC Info (Do NOT chart on this entry -- for MONITORING) 1 each PRN DAILY PRN MC SEE COMMENTS; Start 03/28/17 at 16:15; Stop 03/30/17 at 16:14; Status DC Fentanyl Citrate (Fentanyl 2ml Vial) 50 mcg PRN Q4HRS PRN IV PAIN Last administered on 04/16/17 08:03; Start 03/29/17 at 09:45 Ciprofloxacin/ Dextrose 200 ml @ 200 mls/hr Q12HR IV Last administered on 08:58; Start 03/30/17 at 09:00; Stop 04/04/17 at 10:45; Status DC Lorazepam (Ativan) 0.5 mg Q12HR PO Last administered on 04/12/17 22:14; Start 03/30/17 at 21:00; Stop 04/13/17 at 09:16; Status DC Dopamine HCl/ Dextrose 250 ml @ 15.155 mls/ hr CONT PRN IV SEE I/O RECORD Last administered on 04/06/17 15:44; Start 03/31/17 at 13:00 Info 1 each PRN DAILY PRN MC SEE COMMENTS Last administered on 04/15/17 11:34 ; Start 04/03/17 at 12:15 Sodium Chloride 90 meq/Potassium Chloride 50 meq/ Potassium Phosphate 20.4 mmol/ Magnesium Sulfate 10 meq/ Calcium Gluconate 10 meq/ Multivitamins 10 ml/Chromium / Copper/Manganese/ Seleni/Zn 1 ml/ Total Parenteral Nutrition/Amino Acids/ Dextrose/ Fat Emulsion Intravenous 1,512 ml @ 63 mls/hr TPN CONT IV Last administered on 04/03/17 21:38; Start 04/03/17 at 22:00; Stop 04/04/17 at 21 :59; Status DC Levofloxacin/ Dextrose 100 ml @ 100 mls/hr Q24H IV Last administered on 21:47; Start 04/04/17 at 21:00; Stop 04/07/17 at 13:39; Status DC Furosemide (Lasix) 40 mg DAILY IVP Last administered on 04/16/17 08:04; Start 04/04/17 at 12:00 Sodium Chloride 90 meq/Potassium Chloride 50 meq/ Potassium Phosphate 20.4 mmol/ Magnesium Sulfate 16 meq/ Calcium Gluconate 10 meq/ Multivitamins 10 ml/Chromium / Copper/Manganese/ Seleni/Zn 1 ml/ Total Parenteral Nutrition/Amino Acids/ Dextrose/ Fat Emulsion Intravenous 1,512 ml @ 63 mls/hr TPN CONT IV Last administered on 04/04/17 21:16; Start 04/04/17 at 22:00; Stop 04/05/17 at 21 :59; Status DC Insulin Detemir (Levemir) 20 units QHS SQ Last administered on 04/10/17 21:39 ; Start 04/05/17 at 21:00; Stop 04/11/17 at 08:11; Status DC Insulin Detemir (Levemir) 10 units 1X ONCE SQ Last administered on 04/05/17 14:12; Start 04/05/17 at 09:45; Stop 04/05/17 at 09:46; Status DC Sodium Chloride 90 meq/Potassium Chloride 50 meq/ Potassium Phosphate 20.4 mmol/ Magnesium Sulfate 24 meq/ Calcium Gluconate 10 meq/ Multivitamins 10 ml/Chromium / Copper/Manganese/ Seleni/Zn 1 ml/ Total Parenteral Nutrition/Amino Acids/ Dextrose/ Fat Emulsion Intravenous 1,512 ml @ 63 mls/hr TPN CONT IV Last administered on 04/05/17 20:55; Start 04/05/17 at 22:00; Stop 04/06/17 at 21: 59; Status DC Iohexol (Omnipaque 300 Mg/ml) 75 ml 1X ONCE IV ; Start 04/05/17 at 13:00; Stop 04/05/17 at 13:01; Status DC Iohexol (Omnipaque 240 Mg/ml) 30 ml 1X ONCE PO ; Start 04/05/17 at 13:00; Stop 04/05/17 at 13:01; Status DC Info (Do NOT chart on this entry -- for MONITORING) 1 each PRN DAILY PRN MC SEE COMMENTS; Start 04/05/17 at 13:00; Stop 04/07/17 at 12:59; Status DC Sodium Chloride 90 meq/Potassium Chloride 50 meq/ Potassium Phosphate 20.4 mmol/ Magnesium Sulfate 24 meq/ Calcium Gluconate 10 meq/ Multivitamins 10 ml/Chromium / Copper/Manganese/ Seleni/Zn 1 ml/ Total Parenteral Nutrition/Amino Acids/ Dextrose/ Fat Emulsion Intravenous 1,512 ml @ 63 mls/hr TPN CONT IV Last administered on 04/06/17 21:45; Start 04/06/17 at 22:00; Stop 04/07/17 at 21:59 ; Status DC Lidocaine/Sodium Bicarbonate (Buffered Lidocaine 1%) 20 ml STK-MED ONCE IJ ; Start 04/06/17 at 14:28; Stop 04/06/17 at 14:29; Status DC Fentanyl Citrate (Fentanyl 2ml Vial) 100 mcg STK-MED ONCE .ROUTE ; Start at 14:45; Stop 04/06/17 at 14:46; Status DC Midazolam HCl (Versed) 2 mg STK-MED ONCE .ROUTE ; Start 04/06/17 at 14:45; Stop 04/06/17 at 14:46; Status DC Flumazenil (Romazicon) 0.5 mg STK-MED ONCE IV ; Start 04/06/17 at 14:45; Stop 04/06/17 at 14:46; Status DC Naloxone HCl (Narcan) 0.4 mg STK-MED ONCE .ROUTE ; Start 04/06/17 at 14:45; Stop 04/06/17 at 14:46; Status DC Dopamine HCl/ Dextrose 250 ml @ As Directed STK-MED ONCE IV ; Start 04/06/17 at 14:50; Stop 04/06/17 at 14:51; Status DC Lidocaine/Sodium Bicarbonate (Buffered Lidocaine 1%) 7 ml 1X ONCE IJ Last administered on 04/06/17 15:20; Start 04/06/17 at 15:30; Stop 04/06/17 at 15:31 ; Status DC Sodium Chloride 90 meq/Potassium Chloride 50 meq/ Potassium Phosphate 13.6 mmol/ Magnesium Sulfate 20 meq/ Calcium Gluconate 10 meq/ Multivitamins 10 ml/Chromium / Copper/Manganese/ Seleni/Zn 1 ml/ Total Parenteral Nutrition/Amino Acids/ Dextrose/ Fat Emulsion Intravenous 1,512 ml @ 63 mls/hr TPN CONT IV Last administered on 04/07/17 21:19; Start 04/07/17 at 22:00; Stop 04/08/17 at 21:59 ; Status DC Micafungin Sodium 100 mg/Sodium Chloride 100 ml @ 100 mls/hr Q24H IV Last administered on 04/15/17 15:11; Start 04/07/17 at 14:00 Metronidazole 100 ml @ 100 mls/hr Q8HRS IV Last administered on 04/16/17 05: 50; Start 04/07/17 at 14:00 Cefepime HCl 1 gm/ Dextrose 50 ml @ 100 mls/hr Q8HRS IV ; Start 04/07/17 at 14: 00; Status UNV Cefepime HCl (Maxipime) 1 gm Q8HRS IVP Last administered on 04/16/17 05:10; Start 04/07/17 at 14:00 Sodium Chloride 90 meq/Potassium Chloride 50 meq/ Potassium Phosphate 13.6 mmol/ Magnesium Sulfate 20 meq/ Calcium Gluconate 10 meq/ Multivitamins 10 ml/Chromium / Copper/Manganese/ Seleni/Zn 1 ml/ Total Parenteral Nutrition/Amino Acids/ Dextrose/ Fat Emulsion Intravenous 1,512 ml @ 63 mls/hr TPN CONT IV Last administered on 04/08/17 21:23; Start 04/08/17 at 22:00; Stop 04/09/17 at 21:59 ; Status DC Furosemide (Lasix) 40 mg 1X ONCE IVP Last administered on 04/09/17 10:03; Start 04/09/17 at 08:15; Stop 04/09/17 at 08:16; Status DC Sodium Chloride 90 meq/Potassium Chloride 50 meq/ Potassium Phosphate 13.6 mmol/ Magnesium Sulfate 20 meq/ Calcium Gluconate 10 meq/ Multivitamins 10 ml/Chromium / Copper/Manganese/ Seleni/Zn 1 ml/ Total Parenteral Nutrition/Amino Acids/ Dextrose/ Fat Emulsion Intravenous 1,512 ml @ 63 mls/hr TPN CONT IV Last administered on 04/09/17 21:52; Start 04/09/17 at 22:00; Stop 04/10/17 at 21:59 ; Status DC Sodium Chloride 90 meq/Potassium Chloride 60 meq/ Potassium Phosphate 13.6 mmol/ Magnesium Sulfate 20 meq/ Calcium Gluconate 10 meq/ Multivitamins 10 ml/Chromium / Copper/Manganese/ Seleni/Zn 1 ml/ Total Parenteral Nutrition/Amino Acids/ Dextrose/ Fat Emulsion Intravenous 1,512 ml @ 63 mls/hr TPN CONT IV Last administered on 04/10/17 21:37; Start 04/10/17 at 22:00; Stop 04/11/17 at 21:59 ; Status DC Insulin Detemir (Levemir) 22 units QHS SQ Last administered on 04/11/17 22:08 ; Start 04/11/17 at 21:00; Stop 04/12/17 at 12:21; Status DC Enoxaparin Sodium (Lovenox 40mg Syringe) 40 mg Q24H SQ Last administered on 08:03; Start 04/11/17 at 09:00 Sodium Chloride 90 meq/Potassium Chloride 60 meq/ Potassium Phosphate 13.6 mmol/ Magnesium Sulfate 20 meq/ Calcium Gluconate 10 meq/ Multivitamins 10 ml/Chromium / Copper/Manganese/ Seleni/Zn 1 ml/ Total Parenteral Nutrition/Amino Acids/ Dextrose/ Fat Emulsion Intravenous 1,512 ml @ 63 mls/hr TPN CONT IV Last administered on 04/11/17 21:59; Start 04/11/17 at 22:00; Stop 04/12/17 at 21:59 ; Status DC Norepinephrine Bitartrate 250 ml @ As Directed STK-MED ONCE IV ; Start at 15:51; Stop 04/11/17 at 15:52; Status DC Norepinephrine Bitartrate 250 ml @ 0 mls/hr CONT PRN IV SEE I/O RECORD Last administered on 04/16/17 08:06; Start 04/11/17 at 22:30 Linezolid 300 ml @ 300 mls/hr Q12HR IV Last administered on 04/16/17 08:10; Start 04/12/17 at 09:00 Norepinephrine Bitartrate (Levophed 8mg/ 250ml Premix Drip) 8 mg STK-MED ONCE IV ; Start 04/11/17 at 16:00; Stop 04/12/17 at 09:06; Status DC Insulin Detemir (Levemir) 24 units QHS SQ Last administered on 04/12/17 22:16 ; Start 04/12/17 at 21:00; Stop 04/13/17 at 08:24; Status DC Sodium Chloride 90 meq/Potassium Chloride 60 meq/ Potassium Phosphate 13.6 mmol/ Magnesium Sulfate 20 meq/ Calcium Gluconate 10 meq/ Multivitamins 10 ml/Chromium / Copper/Manganese/ Seleni/Zn 1 ml/ Total Parenteral Nutrition/Amino Acids/ Dextrose/ Fat Emulsion Intravenous 1,512 ml @ 63 mls/hr TPN CONT IV Last administered on 04/12/17 22:15; Start 04/12/17 at 22:00; Stop 04/13/17 at 21:59 ; Status DC Insulin Detemir (Levemir) 26 units QHS SQ Last administered on 04/13/17 21:56 ; Start 04/13/17 at 21:00; Stop 04/14/17 at 21:44; Status DC Lorazepam (Ativan) 0.5 mg PRN Q8HRS PRN PO ANXIETY / AGITATION Last administered on 04/16/17 08:04; Start 04/14/17 at 09:00 Sodium Chloride 90 meq/Potassium Chloride 60 meq/ Potassium Phosphate 13.6 mmol/ Magnesium Sulfate 15 meq/ Calcium Gluconate 8 meq/ Multivitamins 10 ml/Chromium / Copper/Manganese/ Seleni/Zn 1 ml/ Total Parenteral Nutrition/Amino Acids/ Dextrose/ Fat Emulsion Intravenous 1,512 ml @ 63 mls/hr TPN CONT IV Last administered on 04/13/17 21:45; Start 04/13/17 at 22:00; Stop 04/14/17 at 21:59 ; Status DC Sodium Chloride 90 meq/Potassium Chloride 60 meq/ Potassium Phosphate 13.6 mmol/ Magnesium Sulfate 10 meq/ Calcium Gluconate 8 meq/ Multivitamins 10 ml/Chromium / Copper/Manganese/ Seleni/Zn 1 ml/ Total Parenteral Nutrition/Amino Acids/ Dextrose/ Fat Emulsion Intravenous 1,512 ml @ 63 mls/hr TPN CONT IV ; Start 04/14/17 at 22:00; Stop 04/14/17 at 22:00; Status DC Sodium Chloride 90 meq/Potassium Chloride 60 meq/ Potassium Phosphate 13.6 mmol/ Magnesium Sulfate 15 meq/ Calcium Gluconate 8 meq/ Multivitamins 10 ml/Chromium / Copper/Manganese/ Seleni/Zn 1 ml/ Total Parenteral Nutrition/Amino Acids/ Dextrose/ Fat Emulsion Intravenous 1,512 ml @ 63 mls/hr TPN CONT IV Last administered on 04/14/17 21:27; Start 04/14/17 at 22:00; Stop 04/15/17 at 21: 59; Status DC Insulin Detemir (Levemir) 30 units QHS SQ Last administered on 04/15/17 21:56 ; Start 04/14/17 at 22:00 Sodium Chloride 90 meq/Potassium Chloride 60 meq/ Potassium Phosphate 13.6 mmol/ Magnesium Sulfate 15 meq/ Calcium Gluconate 8 meq/ Multivitamins 10 ml/Chromium / Copper/Manganese/ Seleni/Zn 1 ml/ Total Parenteral Nutrition/Amino Acids/ Dextrose/ Fat Emulsion Intravenous 1,512 ml @ 63 mls/hr TPN CONT IV Last administered on 04/15/17 21:52; Start 04/15/17 at 22:00; Stop 04/16/17 at 21 :59 Insulin Aspart (NovoLOG) 0-9 UNITS Q6HRS SQ Last administered on 04/16/17 06: 21; Start 04/15/17 at 18:00 Dextrose (Dextrose 50%-Water Syringe) 12.5 gm PRN Q15MIN PRN IV SEE COMMENTS; Start 04/15/17 at 15:30 Alteplase, Recombinant (Cathflo) 2 mg 1X ONCE INT CAT ; Start 04/16/17 at 09: 00; Stop 04/16/17 at 09:01; Status UNV Active Scripts Active Reported Flagyl (Metronidazole) 500 Mg Tablet 1 Tab PO BID Cefpodoxime Proxetil 200 Mg Tablet 1 Tab PO BID Ferrous Sulfate 325 Mg Tablet 1 Tab PO DAILY Lasix (Furosemide) 40 Mg Tablet 40 Mg PO QODAY Potassium Chloride 10 Meq Capsule.er 10 Meq PO QODAY Metoprolol Tartrate 25 Mg Tablet 12.5 Mg PO BID Atorvastatin Calcium 40 Mg Tablet 40 Mg PO HS Clopidogrel (Clopidogrel Bisulfate) 75 Mg Tablet 1 Tab PO DAILY Diclofenac Sodium 75 Mg Tablet.dr 75 Mg PO DAILY Ranitidine Hcl 150 Mg Tablet 1 Tab PO BID Aspirin 81 Mg Tab.chew 1 Tab PO DAILY Vitals/I & O Vital Sign - Last 24 Hours 04/15/17 04/15/17 04/15/17 04/15/17 09:00 09:30 10:00 11:00 Pulse 114 112 122 Resp 36 38 31 34 B/P (MAP) 90/54 (66) 106/65 (79) 102/44 (63) Pulse Ox 97 98 99 97 O2 Delivery Nasal Cannula Nasal Cannula Nasal Cannula Nasal Cannula O2 Flow Rate 4.0 4.0 4.0 4.0 04/15/17 04/15/17 04/15/17 04/15/17 12:00 12:00 12:00 13:00 Temp 98.4 98.4 Pulse 118 116 Resp 30 26 B/P (MAP) 80/36 (51) 79/46 (57) Pulse Ox 98 97 O2 Delivery Nasal Cannula Nasal Cannula Nasal Cannula O2 Flow Rate 4.0 4.0 4.0 4.0 04/15/17 04/15/17 04/15/17 04/15/17 13:04 14:00 15:00 16:00 Pulse 124 120 Resp 20 19 23 B/P (MAP) 139/63 (88) 125/58 (80) Pulse Ox 97 98 98 O2 Delivery Nasal Cannula Nasal Cannula Nasal Cannula O2 Flow Rate 4.0 4.0 4.0 4.0 04/15/17 04/15/17 04/15/17 04/15/17 16:00 16:00 17:00 17:12 Temp 97.8 97.8 Pulse 114 120 Resp 24 32 29 B/P (MAP) 118/83 (95) 119/60 (79) Pulse Ox 99 99 98 O2 Delivery Nasal Cannula Nasal Cannula Nasal Cannula Nasal Cannula O2 Flow Rate 4.0 4.0 4.0 4.0 04/15/17 04/15/17 04/15/1704/15/17 18:00 19:00 20:00 20:00 Temp 98.1 98.1 Pulse 112 118 121 Resp 32 30 20 B/P (MAP) 87/54 (65) 105/99 (101) 94/47 (63) Pulse Ox 98 98 97 O2 Delivery Nasal Cannula Nasal Cannula Nasal Cannula Nasal Cannula O2 Flow Rate 4.0 4.0 4.0 4.0 04/15/17 04/15/17 04/15/17 04/15/17 20:00 21:00 21:49 22:00 Pulse 131 133 Resp 14 30 32 B/P (MAP) 102/64 (77) 108/54 (72) Pulse Ox 97 98 96 O2 Delivery Nasal Cannula Nasal Cannula Nasal Cannula O2 Flow Rate 4.0 4.0 4.0 4.0 04/15/17 04/15/17 04/16/17 04/16/17 23:00 23:31 00:00 00:00 Pulse 133 Resp 32 36 B/P (MAP) 108/54 (72) Pulse Ox 96 96 O2 Delivery Nasal Cannula Nasal Cannula Nasal Cannula O2 Flow Rate 4.0 4.0 4.0 4.0 04/16/17 04/16/17 04/16/17 04/16/17 00:00 00:37 01:00 02:00 Temp 98.1 98.1 Pulse 131 123 109 Resp 28 23 32 32 B/P (MAP) 106/54 (71) 98/49 (65) 94/56 (69) Pulse Ox 96 96 98 98 O2 Delivery Nasal Cannula Nasal Cannula Nasal Cannula Nasal Cannula O2 Flow Rate 4.0 4.0 4.0 4.0 04/16/17 04/16/17 04/16/17 04/16/17 03:00 04:00 04:00 04:00 Temp 98.0 98.0 Pulse 126 123 Resp 22 28 B/P (MAP) 105/59 (74) 92/47 (62) Pulse Ox 98 99 O2 Delivery Nasal Cannula Nasal Cannula Nasal Cannula O2 Flow Rate 4.0 4.0 4.0 4.0 04/16/17 04/16/17 04/16/17 04/16/17 05:00 05:10 06:00 07:00 Temp 99.4 99.4 Pulse 128 120 110 Resp 32 30 38 26 B/P (MAP) 104/44 (64) 104/55 (71) 111/47 (68) Pulse Ox 97 96 96 98 O2 Delivery Nasal Cannula Nasal Cannula Nasal Cannula Nasal Cannula O2 Flow Rate 4.0 4.0 4.0 4.0 04/16/17 04/16/17 04/16/17 04/16/17 08:00 08:00 08:00 08:03 Temp 99.4 99.4 Pulse 108 Resp 28 35 B/P (MAP) 92/64 (73) Pulse Ox 98 96 O2 Delivery Nasal Cannula Nasal Cannula Nasal Cannula O2 Flow Rate 4.0 4.0 4.0 4.0 04/16/17 04/16/17 08:04 08:35 Pulse 124 Resp 28 B/P (MAP) 98/52 Pulse Ox 98 O2 Delivery Nasal Cannula O2 Flow Rate 4.0 Intake and Output 04/15/17 04/15/17 04/16/17 15:00 23:00 07:00 Intake Total 1454 ml 574 ml Output Total 1715 ml 1130 ml 500 ml Balance -1715 ml 324 ml 74 ml DANNY MEZA MD Apr 16, 2017 09:01
--- NOTE | 2017-04-16 09:24 | PDOC ---
Provider Note Provider Note vss, no change - depressed re situation- will add wellbutrin trial- sleeping now , tachypneic MILENA MCMILLAN MD Apr 16, 2017 09:24
--- NOTE | 2017-04-16 09:40 | PDOC ---
DYLON OCHOA MACHINERY ENGINEER 04/16/17 0939: SURGICAL PROGRESS NOTE Subjective resting poor appetite Vital Signs Vital Signs Date Time Temp Pulse Resp B/P (MAP) Pulse Ox O2 Delivery O2 Flow Rate FiO2 04/16/17 09:00 135 38 99/64 (76) 98 Nasal Cannula 4.0 04/16/17 08:00 99.4 99.4 I&O Intake and Output 04/16/17 07:00 Intake Total 2028 ml Output Total 3345 ml Balance -1317 ml Intake Oral 0 ml IV Total 2028 ml Output Urine Total 3005 ml Stool Total 340 ml General: Alert, Oriented X3, Cooperative, No acute distress Abdomen: Soft, Other (wound dressed, ostomy with stool) Labs Laboratory Tests Test 04/14/17 21:25 04/15/17 11:33 04/15/17 17:10 04/15/17 21:47 Glucose (Fingerstick) 348 mg/dL (70-99) 380 mg/dL (70-99) 321 mg/dL (70-99) 301 mg/dL (70-99) Test 04/16/17 00:33 04/16/17 06:19 04/16/17 07:15 Glucose (Fingerstick) 340 mg/dL (70-99) 230 mg/dL (70-99) White Blood Count 8.0 x10^3/uL (4.0-11.0) Red Blood Count 3.52 x10^6/uL (3.50-5.40) Hemoglobin 9.8 g/dL (12.0-15.5) Hematocrit 31.6 % (36.0-47.0) Mean Corpuscular Volume 90 fL (79-100) Mean Corpuscular Hemoglobin 28 pg (25-35) Mean Corpuscular Hemoglobin Concent 31 g/dL (31-37) Red Cell Distribution Width 18.0 % (11.5-14.5) Platelet Count 428 x10^3/uL (140-400) Neutrophils (%) (Auto) 82 % (31-73) Lymphocytes (%) (Auto) 13 % (24-48) Monocytes (%) (Auto) 5 % (0-9) Eosinophils (%) (Auto) 0 % (0-3) Basophils (%) (Auto) 0 % (0-3) Neutrophils # (Auto) 6.6 x10^3uL (1.8-7.7) Lymphocytes # (Auto) 1.1 x10^3/uL (1.0-4.8) Monocytes # (Auto) 0.4 x10^3/uL (0.0-1.1) Eosinophils # (Auto) 0.0 x10^3/uL (0.0-0.7) Basophils # (Auto) 0.0 x10^3/uL (0.0-0.2) Laboratory Tests Test 04/15/17 11:33 04/15/17 17:10 04/15/17 21:47 04/16/17 00:33 Glucose (Fingerstick) 380 mg/dL (70-99) 321 mg/dL (70-99) 301 mg/dL (70-99) 340 mg/dL (70-99) Test 04/16/17 06:19 04/16/17 07:15 Glucose (Fingerstick) 230 mg/dL (70-99) White Blood Count 8.0 x10^3/uL (4.0-11.0) Red Blood Count 3.52 x10^6/uL (3.50-5.40) Hemoglobin 9.8 g/dL (12.0-15.5) Hematocrit 31.6 % (36.0-47.0) Mean Corpuscular Volume 90 fL (79-100) Mean Corpuscular Hemoglobin 28 pg (25-35) Mean Corpuscular Hemoglobin Concent 31 g/dL (31-37) Red Cell Distribution Width 18.0 % (11.5-14.5) Platelet Count 428 x10^3/uL (140-400) Neutrophils (%) (Auto) 82 % (31-73) Lymphocytes (%) (Auto) 13 % (24-48) Monocytes (%) (Auto) 5 % (0-9) Eosinophils (%) (Auto) 0 % (0-3) Basophils (%) (Auto) 0 % (0-3) Neutrophils # (Auto) 6.6 x10^3uL (1.8-7.7) Lymphocytes # (Auto) 1.1 x10^3/uL (1.0-4.8) Monocytes # (Auto) 0.4 x10^3/uL (0.0-1.1) Eosinophils # (Auto) 0.0 x10^3/uL (0.0-0.7) Basophils # (Auto) 0.0 x10^3/uL (0.0-0.2) Problem List Problems Medical Problems: (1) Abdominal abscess Status: Acute (2) Abdominal pain Status: Acute Assessment/Plan supportive care Problems: LI HAMMOND MD 04/16/17 1339: SURGICAL PROGRESS NOTE Assessment/Plan pt remains on pressors, but currently off bipap abd soft, wound improving, min output in right drain cont supportive care Problems: DYLON OCHOA MACHINERY ENGINEER Apr 16, 2017 09:39 LI HAMMOND MD Apr 16, 2017 13:39
[2017-04-16] MEDS: buPROPion XL 150 MG TAB.ER.24H. PO SCH (09:52)
--- NOTE | 2017-04-16 11:18 | PDOC ---
PULMONARY PROGRESS NOTES Subjective PT TRANSFERRED TO ICU 04/09 OFF BIPAP Vitals Vital Signs Date Time Temp Pulse Resp B/P (MAP) Pulse Ox O2 Delivery O2 Flow Rate FiO2 04/16/17 11:00 111 30 98/49 (65) 98 Nasal Cannula 4.0 04/16/17 08:00 99.4 99.4 ROS: No Nausea, No Chest Pain, No Abdominal Pain, No Increase Cough General: Alert, No acute distress Lungs: Clear Cardiovascular: S1, S2 Abdomen: Soft, Other (colostomy/ drains in place) Neuro Exam: Alert Extremities: Other (1+edema) Skin: Warm Labs Laboratory Tests Test 04/14/17 21:25 04/15/17 11:33 04/15/17 17:10 04/15/17 21:47 Glucose (Fingerstick) 348 mg/dL (70-99) 380 mg/dL (70-99) 321 mg/dL (70-99) 301 mg/dL (70-99) Test 04/16/17 00:33 04/16/17 06:19 04/16/17 07:15 Glucose (Fingerstick) 340 mg/dL (70-99) 230 mg/dL (70-99) White Blood Count 8.0 x10^3/uL (4.0-11.0) Red Blood Count 3.52 x10^6/uL (3.50-5.40) Hemoglobin 9.8 g/dL (12.0-15.5) Hematocrit 31.6 % (36.0-47.0) Mean Corpuscular Volume 90 fL (79-100) Mean Corpuscular Hemoglobin 28 pg (25-35) Mean Corpuscular Hemoglobin Concent 31 g/dL (31-37) Red Cell Distribution Width 18.0 % (11.5-14.5) Platelet Count 428 x10^3/uL (140-400) Neutrophils (%) (Auto) 82 % (31-73) Lymphocytes (%) (Auto) 13 % (24-48) Monocytes (%) (Auto) 5 % (0-9) Eosinophils (%) (Auto) 0 % (0-3) Basophils (%) (Auto) 0 % (0-3) Neutrophils # (Auto) 6.6 x10^3uL (1.8-7.7) Lymphocytes # (Auto) 1.1 x10^3/uL (1.0-4.8) Monocytes # (Auto) 0.4 x10^3/uL (0.0-1.1) Eosinophils # (Auto) 0.0 x10^3/uL (0.0-0.7) Basophils # (Auto) 0.0 x10^3/uL (0.0-0.2) Laboratory Tests Test 04/15/17 11:33 04/15/17 17:10 04/15/17 21:47 04/16/17 00:33 Glucose (Fingerstick) 380 mg/dL (70-99) 321 mg/dL (70-99) 301 mg/dL (70-99) 340 mg/dL (70-99) Test 04/16/17 06:19 04/16/17 07:15 Glucose (Fingerstick) 230 mg/dL (70-99) White Blood Count 8.0 x10^3/uL (4.0-11.0) Red Blood Count 3.52 x10^6/uL (3.50-5.40) Hemoglobin 9.8 g/dL (12.0-15.5) Hematocrit 31.6 % (36.0-47.0) Mean Corpuscular Volume 90 fL (79-100) Mean Corpuscular Hemoglobin 28 pg (25-35) Mean Corpuscular Hemoglobin Concent 31 g/dL (31-37) Red Cell Distribution Width 18.0 % (11.5-14.5) Platelet Count 428 x10^3/uL (140-400) Neutrophils (%) (Auto) 82 % (31-73) Lymphocytes (%) (Auto) 13 % (24-48) Monocytes (%) (Auto) 5 % (0-9) Eosinophils (%) (Auto) 0 % (0-3) Basophils (%) (Auto) 0 % (0-3) Neutrophils # (Auto) 6.6 x10^3uL (1.8-7.7) Lymphocytes # (Auto) 1.1 x10^3/uL (1.0-4.8) Monocytes # (Auto) 0.4 x10^3/uL (0.0-1.1) Eosinophils # (Auto) 0.0 x10^3/uL (0.0-0.7) Basophils # (Auto) 0.0 x10^3/uL (0.0-0.2) Medications Active Scripts Medications Dose Route/Sig Max Daily Dose Days Date Category Flagyl (Metronidazole) 500 Mg Tablet 1 Tab PO BID 03/01/17 Reported Cefpodoxime Proxetil 200 Mg Tablet 1 Tab PO BID 03/01/17 Reported Ferrous Sulfate 325 Mg Tablet 1 Tab PO DAILY 02/23/17 Reported Lasix (Furosemide) 40 Mg Tablet 40 Mg PO QODAY 02/23/17 Reported Potassium Chloride 10 Meq Capsule.er 10 Meq PO QODAY 02/23/17 Reported Metoprolol Tartrate 25 Mg Tablet 12.5 Mg PO BID 01/31/17 Reported Atorvastatin Calcium 40 Mg Tablet 40 Mg PO HS 01/31/17 Reported Clopidogrel (Clopidogrel Bisulfate) 75 Mg Tablet 1 Tab PO DAILY 08/24/15 Reported Diclofenac Sodium 75 Mg Tablet.dr 75 Mg PO DAILY 12/21/14 Reported Ranitidine Hcl 150 Mg Tablet 1 Tab PO BID 12/21/14 Reported Aspirin 81 Mg Tab.chew 1 Tab PO DAILY 04/15/14 Reported Impression . 1. [id number] respiratory failure, MULTIFACTORIAL 2. Status post laparoscopic converted to open exploration for extensive lysis of adhesion, removal of old mesh, subtotal colectomy, small bowel resection and incisional hernia repair 3. Obesity, body mass index of 35. 4. Leukocytosis. 5. Enterocutaneous fistula. Abdominal abscess, measuring 6.4 x 4.9 cm. s/p drain 03/12. Klebsiella ( R to Zosyn, S Cipro/Levo), VRE (R PCN) and PSAE ( R to ticarcillin only otherwise sensitive, S Cipro/Levo) and C tropicalis -h/o Strep anginosis and Bacteroides 6. Fever RESOLVED 7. Abdominal abscess. 8. Ventral hernia, status post repair. 9. Bilateral effusions due to low oncotic pressure/ , small effusions on ct 10. Anxiety disorder Palliative Care Spoke with patient and son Chris. Patient off BiPap ---feels better. RR 32-34. Reviewed conversations patient and son had with physicians. Patient wants to continue to try to get better. Son Chris supportive of her wish. Understands that this will need to be evaluated closely as respiratory condition could decline rapidly. Encouraged patient and son to have conversation about any limitations of care that she would want. They understand that recovery could be a long process. Will continue to follow closely. Chris will be at work tomorrow but available by phone if anything changes. Plan . RESP STATUS IS COMPENSATED, IMPROVING .WILL REPEAT CXR UNCHANGED 04/16 WILL AVOID BIPAP DUE TO DAMAGE TO SKIN AT BRIDGE OF NOSE REPEAT CT ABDOMEN/PELVIS REVIEWED/ SMALL EFFUSIONS LASIX PRN VENOUS DOPPLER NEGATIVE/ CT NEGATIVE FOR PE ANXIETY/ ON SCHEDULED ATIVAN D/W SISTER NICO PATIENT TODAY.I WOULD FAVOR NO INTUBATION AND DNR I THINK IF SHE GET INTUBATED SHE WILL END UP WITH TRACH AND LONG-TERM WITH NON WEANABLE UNIT SHE WILL LET ME KNOW HER DECISION LATER TODAY cct 25 min STACI CORRAL MD Apr 16, 2017 11:18
[2017-04-16 11:36] LABS: ALBUMIN 0.9 g/dL (3.4-5.0); ALBUMIN/GLOBULIN RATIO 0.2 (1.0-1.7); CALCIUM 7.5 mg/dL (8.5-10.1); CREATININE 0.6 mg/dL (0.6-1.0); GFR 98.5; POTASSIUM 4.5 mmol/L (3.5-5.1); TOTAL BILIRUBIN 0.2 mg/dL (0.2-1.0); TOTAL PROTEIN 5.2 g/dL (6.4-8.2)
[2017-04-16] MEDS: TPN PER PHARMACY MC PRN ×3 (11:58→13:36)
[2017-04-16 12:22] LABS: MAGNESIUM 2.1 mg/dL (1.8-2.4); PHOSPHORUS 2.7 mg/dL (2.6-4.7)
[2017-04-16] MEDS: MULTIVITAMIN with MINERAL TABLET. PO SCH (13:09)
[2017-04-16] MEDS: ASCORBIC ACID 500 MG TABLET PO SCH (13:09)
[2017-04-16] MEDS: MICAFUNGIN 100 MG in IV NORMAL SALINE 100ML 100 ML IV SCH (13:09)
--- NOTE | 2017-04-16 14:00 | PDOC2 ---
PALLIATIVE CARE Palliative Care Note Palliative Care Patient seen 1039. Alert. Off BiPap Discussed her medical condition. Ongoing need for respiratory support and addressing complications from abdominal surgery. Chris/son is planning to come after work to discuss goals of care. Patient indicated that she did not want intubation if it was not going to make her better. Wanted to discuss with physicians and son. Reviewed possible implications of placing on ventilator---tracheostomy may be needed to continue breathing support with ventilatory machine. 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 Acknowledges understanding by repeating option. Understands that continued use of BiPap on skin over her nose is not a intermodal truck driver solution. Plan meeting with son to review goals. KATI ROSE Apr 16, 2017 14:00
[2017-04-16] MEDS: HYDROcodone/APAP 7.5/325MG 1 TAB TABLET PO PRN ×2 (14:35→21:14)
--- NOTE | 2017-04-16 17:24 | PDOC2 ---
PALLIATIVE CARE Palliative Care Note Palliative Care Patient alert oriented. Off BiPap Met with son Chris and patient. Discussed current medical condition and options for care. Patient wants to continue medical treatment. Will likely need LTAC for aggressive wound management and strengthening. Chris understands from surgeons "that things are getting better" Reviewed wound care after discussing with wound care nurses. Patient and Chris understand wound care will need assisted management. Poor nutritional status will impact wound healing. TPN continued. Encourage patient to eat what she can. Discussed Code Status: Patient understands BiPap not a assisted solutions. Admits to anxiety. Medication for anxiety "helps me" Patient states that she would not want intubation. "just turn the lights out" Asked to clarify. States that she would . States she would not want chest compressions, shock-----"just let me go" Chris acknowledges understanding of his mothers wishes. States it is her decision and he supports her wishes of DNR/DNI. Will continue current treatment plan. When medically stable will address option of assisted care wound management in a facility. Jolene MURO will page physician for DNR/DNI order. KATI ROSE Apr 16, 2017 17:24
[2017-04-16] MEDS: INSULIN DETEMIR 300 UNITS/3 ML INSULN.PEN. SQ SCH (21:20)
[2017-04-16] MEDS ORDERED: DEXTROSE 70% IV SCH ×22 (22:00)
[2017-04-16] MEDS ORDERED: [UNRECOGNIZED DRUG - OTHER] IV SCH ×11 (22:00)
[2017-04-16] MEDS ORDERED: TOTAL PARENTERAL NUTRITION IV SCH ×22 (22:00)
[2017-04-16] MEDS ORDERED: [UNRECOGNIZED DRUG - OTHER] IV SCH ×11 (22:00)
[2017-04-16] MEDS ORDERED: AMINO ACIDS IV SCH ×22 (22:00)
[2017-04-17] VITALS (26 sets, daily range): BP systolic 66–107; BP diastolic 35–69
[2017-04-17] MEDS: INSULIN ASPART 300 UNITS/3 ML INSULN.PEN SQ SCH ×4 (00:20→17:48)
[2017-04-17] MEDS: HYDROcodone/APAP 7.5/325MG 1 TAB TABLET PO PRN ×4 (03:20→20:19)
[2017-04-17] MEDS: NOREPINEPHRIN PREMIX 250 ML IV PRN (03:20)
[2017-04-17] MEDS: ONDANSETRON PF 4 MG/2 ML VIAL. IV PRN (03:45)
[2017-04-17] MEDS: CEFEPIME HCL IV Push 1 GM VIAL. IVP SCH ×3 (06:17→22:55)
--- NOTE | 2017-04-17 07:46 | RAD ---
Portable chest, 04/17/2017: History: Respiratory failure Comparison is made to yesterday's study. A right PICC remains in place in satisfactory position. The heart size is normal. There are moderate ongoing bibasilar opacities obscuring both hemidiaphragms. Increasing obscuration of the left hemidiaphragm is probably due to the current kyphotic patient positioning. The basilar opacities are compatible with a combination of pleural fluid and underlying atelectasis. The upper lung parnell remain clear. IMPRESSION: Ongoing moderate bibasilar opacities compatible with pleural fluid and underlying atelectasis. A component of pneumonia cannot be excluded.
--- NOTE | 2017-04-17 07:48 | PDOC ---
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, oriented x 3, no focal neurologic deficit SKIN: No rash IV: ok Labs Lab Laboratory Tests Test 04/16/17 11:00 04/16/17 17:34 04/16/17 21:09 04/17/17 00:13 Sodium Level 135 mmol/L (136-145) Potassium Level 4.5 mmol/L (3.5-5.1) Chloride Level 102 mmol/L (98-107) Carbon Dioxide Level 28 mmol/L (21-32) Anion Gap 5 (6-14) Blood Urea Nitrogen 18 mg/dL (7-20) Creatinine 0.6 mg/dL (0.6-1.0) Estimated GFR (Cockcroft-Gault) 98.5 BUN/Creatinine Ratio 30 (6-20) Glucose Level 219 mg/dL (70-99) Calcium Level 7.5 mg/dL (8.5-10.1) Phosphorus Level 2.7 mg/dL (2.6-4.7) Magnesium Level 2.1 mg/dL (1.8-2.4) Total Bilirubin 0.2 mg/dL (0.2-1.0) Aspartate Amino Transf (AST/SGOT) 17 U/L (15-37) Alanine Aminotransferase (ALT/SGPT) 6 U/L (14-59) Alkaline Phosphatase 67 U/L (46-116) Total Protein 5.2 g/dL (6.4-8.2) Albumin 0.9 g/dL (3.4-5.0) Albumin/Globulin Ratio 0.2 (1.0-1.7) Glucose (Fingerstick) 265 mg/dL (70-99) 183 mg/dL (70-99) 194 mg/dL (70-99) Test 04/17/17 06:21 Glucose (Fingerstick) 124 mg/dL (70-99) Objective Assessment s/p lap converted to open exploration, JAIRO, removal of infected mesh, subtotal colectomy, SBR and hernia repair, 03/24 Leukocytosis, likely reactive, (Dexamethasone pre-op) EC fistula Fever - better Abdominal abscess, measuring 6.4 x 4.9 cm. s/p drain 03/12. Klebsiella ( R to Zosyn, S Cipro/Levo), VRE (R PCN) and PSAE ( R to ticarcillin only otherwise sensitive, S Cipro/Levo) and C tropicalis h/o Strep anginosis and Bacteroides Ventral hernia DM HTN PCN allergy/amox also - hives and swelling Low plt Plan Plan of Care Repeat BC from 04/12 NGTD Cont Zyvox (04/11), Flagyl and Cefepime 04/07,, stop micafungin f/u cultures and monitor CBC/temp Supportive care Guarded prognosis overall given resp failure/deconditioning and worsening wounds SANDRA RODNEY MD Apr 17, 2017 07:48
[2017-04-17] MEDS: PANTOPRAZOLE IV PUSH 40 MG VIAL. IVP SCH (08:44)
[2017-04-17] MEDS: FUROSEMIDE 40 MG/4 ML VIAL. IVP SCH (08:44)
[2017-04-17] MEDS: ENOXAPARIN 40 MG/0.4 ML SYRINGE. SQ SCH (08:44)
[2017-04-17] MEDS: FERROUS SULFATE 325 MG TABLET. PO SCH (08:45)
[2017-04-17] MEDS: ACETAMINOPHEN 325 MG TABLET. PO PRN (08:45)
[2017-04-17] MEDS: buPROPion XL 150 MG TAB.ER.24H. PO SCH (08:45)
[2017-04-17] MEDS: ASCORBIC ACID 500 MG TABLET PO SCH (08:45)
[2017-04-17] MEDS: ASPIRIN CHEWABLE 81 MG TABLET. PO SCH (08:45)
[2017-04-17] MEDS: MULTIVITAMIN with MINERAL TABLET. PO SCH (08:45)
--- NOTE | 2017-04-17 08:51 | PDOC ---
Provider Note Provider Note has decided to go dnr- labs same, still 3 antibx and levophed- glucose up per tpn- cont same MILENA MCMILLAN MD Apr 17, 2017 08:51
[2017-04-17] MEDS: METOPROLOL SUCC 24HR ER 25 MG TAB.ER.24H. PO SCH (09:00)
--- NOTE | 2017-04-17 09:02 | PDOC ---
SURGICAL PROGRESS NOTE Subjective Pt without new c/o, eladio PO Vital Signs Vital Signs Date Time Temp Pulse Resp B/P (MAP) Pulse Ox O2 Delivery O2 Flow Rate FiO2 04/17/17 08:46 25 99 Nasal Cannula 4.0 04/17/17 07:00 104 77/54 (62) 04/17/17 04:00 98.2 98.2 I&O Intake and Output 04/17/17 06:59 Intake Total 2836 ml Output Total 2660 ml Balance 176 ml Intake Oral 290 ml IV Total 2546 ml Output Urine Total 2185 ml Stool Total 475 ml PATIENT HAS A HOPPER: Yes (accurate i and os) General: Alert, Oriented X3, Cooperative, No acute distress Lungs: Other (some work of breathing) Abdomen: Soft, No tenderness, Other (ostomy fxn, dressing intact) Labs Laboratory Tests Test 04/15/17 11:33 04/15/17 17:10 04/15/17 21:47 04/16/17 00:33 Glucose (Fingerstick) 380 mg/dL (70-99) 321 mg/dL (70-99) 301 mg/dL (70-99) 340 mg/dL (70-99) Test 04/16/17 06:19 04/16/17 07:15 04/16/17 11:00 04/16/17 17:34 Glucose (Fingerstick) 230 mg/dL (70-99) 265 mg/dL (70-99) White Blood Count 8.0 x10^3/uL (4.0-11.0) Red Blood Count 3.52 x10^6/uL (3.50-5.40) Hemoglobin 9.8 g/dL (12.0-15.5) Hematocrit 31.6 % (36.0-47.0) Mean Corpuscular Volume 90 fL (79-100) Mean Corpuscular Hemoglobin 28 pg (25-35) Mean Corpuscular Hemoglobin Concent 31 g/dL (31-37) Red Cell Distribution Width 18.0 % (11.5-14.5) Platelet Count 428 x10^3/uL (140-400) Neutrophils (%) (Auto) 82 % (31-73) Lymphocytes (%) (Auto) 13 % (24-48) Monocytes (%) (Auto) 5 % (0-9) Eosinophils (%) (Auto) 0 % (0-3) Basophils (%) (Auto) 0 % (0-3) Neutrophils # (Auto) 6.6 x10^3uL (1.8-7.7) Lymphocytes # (Auto) 1.1 x10^3/uL (1.0-4.8) Monocytes # (Auto) 0.4 x10^3/uL (0.0-1.1) Eosinophils # (Auto) 0.0 x10^3/uL (0.0-0.7) Basophils # (Auto) 0.0 x10^3/uL (0.0-0.2) Sodium Level 135 mmol/L (136-145) Potassium Level 4.5 mmol/L (3.5-5.1) Chloride Level 102 mmol/L (98-107) Carbon Dioxide Level 28 mmol/L (21-32) Anion Gap 5 (6-14) Blood Urea Nitrogen 18 mg/dL (7-20) Creatinine 0.6 mg/dL (0.6-1.0) Estimated GFR (Cockcroft-Gault) 98.5 BUN/Creatinine Ratio 30 (6-20) Glucose Level 219 mg/dL (70-99) Calcium Level 7.5 mg/dL (8.5-10.1) Phosphorus Level 2.7 mg/dL (2.6-4.7) Magnesium Level 2.1 mg/dL (1.8-2.4) Total Bilirubin 0.2 mg/dL (0.2-1.0) Aspartate Amino Transf (AST/SGOT) 17 U/L (15-37) Alanine Aminotransferase (ALT/SGPT) 6 U/L (14-59) Alkaline Phosphatase 67 U/L (46-116) Total Protein 5.2 g/dL (6.4-8.2) Albumin 0.9 g/dL (3.4-5.0) Albumin/Globulin Ratio 0.2 (1.0-1.7) Test 04/16/17 21:09 04/17/17 00:13 04/17/17 06:21 Glucose (Fingerstick) 183 mg/dL (70-99) 194 mg/dL (70-99) 124 mg/dL (70-99) Laboratory Tests Test 04/16/17 11:00 04/16/17 17:34 04/16/17 21:09 04/17/17 00:13 Sodium Level 135 mmol/L (136-145) Potassium Level 4.5 mmol/L (3.5-5.1) Chloride Level 102 mmol/L (98-107) Carbon Dioxide Level 28 mmol/L (21-32) Anion Gap 5 (6-14) Blood Urea Nitrogen 18 mg/dL (7-20) Creatinine 0.6 mg/dL (0.6-1.0) Estimated GFR (Cockcroft-Gault) 98.5 BUN/Creatinine Ratio 30 (6-20) Glucose Level 219 mg/dL (70-99) Calcium Level 7.5 mg/dL (8.5-10.1) Phosphorus Level 2.7 mg/dL (2.6-4.7) Magnesium Level 2.1 mg/dL (1.8-2.4) Total Bilirubin 0.2 mg/dL (0.2-1.0) Aspartate Amino Transf (AST/SGOT) 17 U/L (15-37) Alanine Aminotransferase (ALT/SGPT) 6 U/L (14-59) Alkaline Phosphatase 67 U/L (46-116) Total Protein 5.2 g/dL (6.4-8.2) Albumin 0.9 g/dL (3.4-5.0) Albumin/Globulin Ratio 0.2 (1.0-1.7) Glucose (Fingerstick) 265 mg/dL (70-99) 183 mg/dL (70-99) 194 mg/dL (70-99) Test 04/17/17 06:21 Glucose (Fingerstick) 124 mg/dL (70-99) Problem List Problems Medical Problems: (1) Abdominal abscess Status: Acute (2) Abdominal pain Status: Acute Assessment/Plan s/p xlap-cont supportive care, cont TPN Problems: LI HAMMOND MD Apr 17, 2017 09:02
--- NOTE | 2017-04-17 09:03 | PDOC ---
PROGRESS NOTES Subjective Subjective HPI - Thrombocytosis ROS - off BIPAP, on levophed Objective Objective Vital Signs Date Time Temp Pulse Resp B/P (MAP) Pulse Ox O2 Delivery O2 Flow Rate FiO2 04/17/17 08:46 25 99 Nasal Cannula 4.0 04/17/17 07:00 104 77/54 (62) 04/17/17 04:00 98.2 98.2 Intake and Output 04/17/17 07:00 Intake Total 2836 ml Output Total 2560 ml Balance 276 ml Intake Oral 290 ml IV Total 2546 ml Output Urine Total 2085 ml Stool Total 475 ml Physical Exam General: Alert, mild distress Assessment Assessment Problems Medical Problems: (1) Abdominal abscess Status: Acute (2) Abdominal pain Status: Acute A/P: 1. Thrombocytosis reactive - previously thrombocytopenia.Resolved. Plt count now 428. 2. Anemia. Most likely multifactorial. Iron studies are suggestive of anemia of chronic disease. /B12 normal. Hb 9.8 monitor and transfuse as needed. 3. Abscess. Management as per primary/surgery 4. Status post laparoscopic converted to open exploration for extensive lysis of adhesion, removal of old mesh, subtotal colectomy, small bowel resection and incisional hernia repair. 5. Styiw-fr-lpkffeg respiratory failure. Persistent dyspnea/ now off BIPAP - appreciate pulm f/u. Appreciate palliative care eval, pt now DNR Comment Review of Relevant I have reviewed the following items chito (where applicable) has been applied. Labs Laboratory Tests Test 04/15/17 11:33 04/15/17 17:10 04/15/17 21:47 04/16/17 00:33 Glucose (Fingerstick) 380 mg/dL (70-99) 321 mg/dL (70-99) 301 mg/dL (70-99) 340 mg/dL (70-99) Test 04/16/17 06:19 04/16/17 07:15 04/16/17 11:00 04/16/17 17:34 Glucose (Fingerstick) 230 mg/dL (70-99) 265 mg/dL (70-99) White Blood Count 8.0 x10^3/uL (4.0-11.0) Red Blood Count 3.52 x10^6/uL (3.50-5.40) Hemoglobin 9.8 g/dL (12.0-15.5) Hematocrit 31.6 % (36.0-47.0) Mean Corpuscular Volume 90 fL (79-100) Mean Corpuscular Hemoglobin 28 pg (25-35) Mean Corpuscular Hemoglobin Concent 31 g/dL (31-37) Red Cell Distribution Width 18.0 % (11.5-14.5) Platelet Count 428 x10^3/uL (140-400) Neutrophils (%) (Auto) 82 % (31-73) Lymphocytes (%) (Auto) 13 % (24-48) Monocytes (%) (Auto) 5 % (0-9) Eosinophils (%) (Auto) 0 % (0-3) Basophils (%) (Auto) 0 % (0-3) Neutrophils # (Auto) 6.6 x10^3uL (1.8-7.7) Lymphocytes # (Auto) 1.1 x10^3/uL (1.0-4.8) Monocytes # (Auto) 0.4 x10^3/uL (0.0-1.1) Eosinophils # (Auto) 0.0 x10^3/uL (0.0-0.7) Basophils # (Auto) 0.0 x10^3/uL (0.0-0.2) Sodium Level 135 mmol/L (136-145) Potassium Level 4.5 mmol/L (3.5-5.1) Chloride Level 102 mmol/L (98-107) Carbon Dioxide Level 28 mmol/L (21-32) Anion Gap 5 (6-14) Blood Urea Nitrogen 18 mg/dL (7-20) Creatinine 0.6 mg/dL (0.6-1.0) Estimated GFR (Cockcroft-Gault) 98.5 BUN/Creatinine Ratio 30 (6-20) Glucose Level 219 mg/dL (70-99) Calcium Level 7.5 mg/dL (8.5-10.1) Phosphorus Level 2.7 mg/dL (2.6-4.7) Magnesium Level 2.1 mg/dL (1.8-2.4) Total Bilirubin 0.2 mg/dL (0.2-1.0) Aspartate Amino Transf (AST/SGOT) 17 U/L (15-37) Alanine Aminotransferase (ALT/SGPT) 6 U/L (14-59) Alkaline Phosphatase 67 U/L (46-116) Total Protein 5.2 g/dL (6.4-8.2) Albumin 0.9 g/dL (3.4-5.0) Albumin/Globulin Ratio 0.2 (1.0-1.7) Test 04/16/17 21:09 04/17/17 00:13 04/17/17 06:21 Glucose (Fingerstick) 183 mg/dL (70-99) 194 mg/dL (70-99) 124 mg/dL (70-99) Laboratory Tests Test 04/16/17 11:00 04/16/17 17:34 04/16/17 21:09 04/17/17 00:13 Sodium Level 135 mmol/L (136-145) Potassium Level 4.5 mmol/L (3.5-5.1) Chloride Level 102 mmol/L (98-107) Carbon Dioxide Level 28 mmol/L (21-32) Anion Gap 5 (6-14) Blood Urea Nitrogen 18 mg/dL (7-20) Creatinine 0.6 mg/dL (0.6-1.0) Estimated GFR (Cockcroft-Gault) 98.5 BUN/Creatinine Ratio 30 (6-20) Glucose Level 219 mg/dL (70-99) Calcium Level 7.5 mg/dL (8.5-10.1) Phosphorus Level 2.7 mg/dL (2.6-4.7) Magnesium Level 2.1 mg/dL (1.8-2.4) Total Bilirubin 0.2 mg/dL (0.2-1.0) Aspartate Amino Transf (AST/SGOT) 17 U/L (15-37) Alanine Aminotransferase (ALT/SGPT) 6 U/L (14-59) Alkaline Phosphatase 67 U/L (46-116) Total Protein 5.2 g/dL (6.4-8.2) Albumin 0.9 g/dL (3.4-5.0) Albumin/Globulin Ratio 0.2 (1.0-1.7) Glucose (Fingerstick) 265 mg/dL (70-99) 183 mg/dL (70-99) 194 mg/dL (70-99) Test 04/17/17 06:21 Glucose (Fingerstick) 124 mg/dL (70-99) Microbiology 04/12/17 Blood Culture - Preliminary, Resulted NO GROWTH AFTER 4 DAYS 04/06/17 Fungal Culture - Preliminary, Resulted 04/06/17 Fungal Culture Result 1 - Preliminary, Resulted 03/09/17 Urine Culture - Final, Complete 03/09/17 Urine Culture Result 1 (KULDEEP) - Final, Complete 03/12/17 Fungal Culture - Final, Complete 03/12/17 Fungal Culture Result 1 - Final, Complete Medications Current Medications Ondansetron HCl (Zofran) 4 mg 1X ONCE IV Last administered on 03/09/17 08:30 ; Start 03/09/17 at 08:15; Stop 03/09/17 at 08:16; Status DC Iohexol (Omnipaque 300 Mg/ml) 75 ml 1X ONCE IV Last administered on 03/09/17 08:50; Start 03/09/17 at 08:45; Stop 03/09/17 at 08:46; Status DC Info (Do NOT chart on this entry -- for MONITORING) 1 each PRN DAILY PRN MC SEE COMMENTS; Start 03/09/17 at 08:45; Stop 03/11/17 at 08:44; Status DC Ceftriaxone Sodium 50 ml @ 100 mls/hr 1X ONCE IV ; Start 03/09/17 at 09:30; Stop 03/09/17 at 09:55; Status DC Sodium Chloride 1,000 ml @ 1,000 mls/hr 1X ONCE IV Last administered on 09:55; Start 03/09/17 at 10:00; Stop 03/09/17 at 10:59; Status DC Ondansetron HCl (Zofran) 4 mg PRN Q8HRS PRN IV NAUSEA/VOMITING; Start 03/09/17 at 10:30; Stop 03/10/17 at 10:29; Status DC Meropenem 500 mg/ Sodium Chloride 50 ml @ 100 mls/hr Q8HRS IV Last administered on 03/16/17 06:09; Start 03/09/17 at 13:00; Stop 03/16/17 at 12: 59; Status DC Acetaminophen (Tylenol) 650 mg PRN QID PRN PO MILD PAIN / TEMP Last administered on 04/17/17 08:45; Start 03/09/17 at 20:30 Aspirin (Children'S Aspirin) 81 mg DAILY PO Last administered on 04/17/17 08: 45; Start 03/10/17 at 15:00 Clopidogrel Bisulfate (Plavix) 75 mg DAILY PO Last administered on 03/19/17 10:00; Start 03/10/17 at 15:00; Stop 03/22/17 at 09:10; Status DC Ferrous Sulfate (Feosol) 325 mg DAILY PO Last administered on 04/17/17 08:45 ; Start 03/10/17 at 15:00 Metoprolol Tartrate (Lopressor) 12.5 mg BID PO Last administered on 03/10/17 16:01; Start 03/10/17 at 15:00; Stop 03/10/17 at 21:01; Status DC Diclofenac Sodium (Voltaren) 75 mg DAILY PO Last administered on 03/23/17 09: 23; Start 03/10/17 at 14:30; Stop 03/29/17 at 10:50; Status DC Famotidine (Pepcid) 20 mg QHS PO Last administered on 03/24/17 21:20; Start 03/10/17 at 21:00; Stop 03/26/17 at 09:35; Status DC Glimepiride (Amaryl) 1 mg DAILY PO Last administered on 03/13/17 09:25; Start 03/11/17 at 15:00; Stop 03/13/17 at 17:02; Status DC Sodium Chloride 1,000 ml @ 100 mls/hr 1X ONCE IV Last administered on 21:00; Start 03/10/17 at 21:00; Stop 03/11/17 at 06:59; Status DC Lidocaine/Sodium Bicarbonate (Buffered Lidocaine 1%) 20 ml STK-MED ONCE IJ ; Start 03/12/17 at 13:05; Stop 03/12/17 at 13:06; Status DC Fentanyl Citrate (Fentanyl 2ml Vial) 100 mcg STK-MED ONCE .ROUTE ; Start at 13:20; Stop 03/12/17 at 13:21; Status DC Midazolam HCl (Versed) 2 mg STK-MED ONCE .ROUTE ; Start 03/12/17 at 13:20; Stop 03/12/17 at 13:21; Status DC Flumazenil (Romazicon) 0.5 mg STK-MED ONCE IV ; Start 03/12/17 at 13:20; Stop 03/12/17 at 13:21; Status DC Naloxone HCl (Narcan) 0.4 mg STK-MED ONCE .ROUTE ; Start 03/12/17 at 13:20; Stop 03/12/17 at 13:21; Status DC Lidocaine/Sodium Bicarbonate (Buffered Lidocaine 1%) 20 ml 1X ONCE IJ Last administered on 03/12/17 13:50; Start 03/12/17 at 13:30; Stop 03/12/17 at 13:33 ; Status DC Midazolam HCl (Versed) 2 mg 1X ONCE IV Last administered on 03/12/17 13:50; Start 03/12/17 at 13:30; Stop 03/12/17 at 13:33; Status DC Fentanyl Citrate (Fentanyl 2ml Vial) 100 mcg 1X ONCE IV Last administered on 03/12/17 13:50; Start 03/12/17 at 13:30; Stop 03/12/17 at 13:33; Status DC Lactobacillus Rhamnosus (Culturelle) 1 cap BID PO Last administered on 21:20; Start 03/12/17 at 21:00; Stop 03/25/17 at 21:06; Status DC Acetaminophen/ Hydrocodone Bitart (Lortab 7.5/325) 1 tab PRN Q6HRS PRN PO MODERATE - SEVERE PAIN Last administered on 04/17/17 08:46; Start 03/12/17 at 18:15 Ondansetron HCl (Zofran) 4 mg PRN Q6HRS PRN IV NAUSEA/VOMITING, 1ST CHOICE Last administered on 04/17/17 03:45; Start 03/13/17 at 09:00 Furosemide (Lasix) 40 mg QODAY PO Last administered on 03/22/17 09:39; Start 03/14/17 at 09:00; Stop 03/26/17 at 09:00; Status DC Glimepiride (Amaryl) 1 mg DAILY08 PO Last administered on 03/22/17 09:40; Start 03/14/17 at 08:00; Stop 03/23/17 at 08:52; Status DC Linezolid (Zyvox) 600 mg BID PO Last administered on 03/24/17 21:20; Start 03/14/17 at 13:15; Stop 03/25/17 at 10:49; Status DC Meropenem (Merrem) 500 mg Q8HRS IVP Last administered on 03/30/17 06:04; Start 03/16/17 at 14:00; Stop 03/30/17 at 07:49; Status DC Iohexol (Omnipaque 240 Mg/ml) 50 ml STK-MED ONCE .ROUTE ; Start 03/19/17 at 13: 11; Stop 03/19/17 at 13:12; Status DC Iohexol (Omnipaque 240 Mg/ml) 10 ml 1X ONCE IJ Last administered on 14:07; Start 03/19/17 at 14:00; Stop 03/19/17 at 14:01; Status DC Info (Do NOT chart on this entry -- for MONITORING) 1 each PRN DAILY PRN MC SEE COMMENTS; Start 03/19/17 at 14:00; Stop 03/21/17 at 13:59; Status DC Iohexol (Omnipaque 240 Mg/ml) 50 ml STK-MED ONCE .ROUTE ; Start 03/19/17 at 13: 55; Stop 03/19/17 at 13:56; Status DC Fluconazole (Diflucan) 200 mg DAILY PO Last administered on 03/23/17 09:24; Start 03/22/17 at 09:30; Stop 03/25/17 at 10:51; Status DC Metoprolol Succinate (Toprol Xl) 12.5 mg DAILY PO Last administered on 08:04; Start 03/23/17 at 09:00 Glimepiride (Amaryl) 0.5 mg DAILY08 PO ; Start 03/24/17 at 08:00; Stop at 13:05; Status DC Morphine Sulfate 1 mg PRN Q10MIN PRN IV SEVERE PAIN; Start 03/26/17 at 07:00; Stop 03/26/17 at 07:00; Status DC Ringer's Solution 1,000 ml @ 30 mls/hr Q24H IV ; Start 03/26/17 at 07:00; Stop 03/26/17 at 07:00; Status DC Lidocaine HCl (Xylocaine-Mpf 1% Vial) 2 ml PRN 1X PRN ID PRIOR TO IV START; Start 03/26/17 at 07:00; Stop 03/26/17 at 07:00; Status DC Hydromorphone HCl (Dilaudid) 0.5 mg PRN Q10MIN PRN IV SEV PAIN, Second choice; Start 03/26/17 at 07:00; Stop 03/27/17 at 06:59; Status Cancel Prochlorperazine Edisylate (Compazine) 5 mg PACU PRN PRN IV NAUSEA, MRX1 Last administered on 03/25/17 07:45; Start 03/26/17 at 07:00; Stop 03/26/17 at 07 :00; Status DC Morphine Sulfate 1 mg PRN Q10MIN PRN IV SEVERE PAIN; Start 03/24/17 at 07:45; Stop 03/25/17 at 07:44; Status DC Ringer's Solution 1,000 ml @ 30 mls/hr Q24H IV Last administered on 14:15; Start 03/24/17 at 07:32; Stop 03/24/17 at 19:31; Status DC Lidocaine HCl (Xylocaine-Mpf 1% Vial) 2 ml 1X PRN PRN ID IV START; Start 03/24 at 07:45; Stop 03/25/17 at 07:44; Status DC Hydromorphone HCl (Dilaudid) 0.5 mg PRN Q10MIN PRN IV SEV PAIN, Second choice; Start 03/24/17 at 07:45; Stop 03/25/17 at 07:44; Status DC Prochlorperazine Edisylate (Compazine) 5 mg PACU PRN PRN IV NAUSEA, MRX1; Start 03/24/17 at 07:45; Stop 03/25/17 at 07:44; Status DC Bupivacaine HCl/ Epinephrine Bitart (Sensorcain-Mpf Epi 0.5%-1:[id number]) 30 ml STK -MED ONCE .ROUTE Last administered on 03/24/17 15:56; Start 03/24/17 at 10: 28; Stop 03/24/17 at 10:29; Status DC Neostigmine Methylsulfate (Bloxiverz) 10 mg STK-MED ONCE .ROUTE ; Start at 14:38; Stop 03/24/17 at 14:39; Status DC Rocuronium [place] (Zemuron) 50 mg STK-MED ONCE .ROUTE ; Start 03/24/17 at 14: 38; Stop 03/24/17 at 14:39; Status DC Fentanyl Citrate (Fentanyl 2ml Vial) 100 mcg STK-MED ONCE .ROUTE ; Start at 14:38; Stop 03/24/17 at 14:39; Status DC Phenylephrine HCl 1 mg STK-MED ONCE IV ; Start 03/24/17 at 14:40; Stop at 14:41; Status DC Lidocaine HCl (Lidocaine Pf 2% Vial) 5 ml STK-MED ONCE .ROUTE ; Start 03/24/17 at 14:40; Stop 03/24/17 at 14:41; Status DC Dexamethasone Sodium Phosphate (Decadron) 20 mg STK-MED ONCE .ROUTE ; Start at 14:40; Stop 03/24/17 at 14:41; Status DC Ondansetron HCl (Zofran) 4 mg STK-MED ONCE .ROUTE ; Start 03/24/17 at 14:40; Stop 03/24/17 at 14:41; Status DC Propofol 20 ml @ As Directed STK-MED ONCE IV ; Start 03/24/17 at 14:40; Stop 03/24/17 at 14:41; Status DC Glycopyrrolate (Robinul) 1 mg STK-MED ONCE .ROUTE ; Start 03/24/17 at 15:11; Stop 03/24/17 at 15:12; Status DC Rocuronium [place] (Zemuron) 50 mg STK-MED ONCE .ROUTE ; Start 03/24/17 at 15: 53; Stop 03/24/17 at 15:54; Status DC Fentanyl Citrate (Fentanyl 2ml Vial) 100 mcg STK-MED ONCE .ROUTE ; Start at 16:01; Stop 03/24/17 at 16:02; Status DC Morphine Sulfate 10 mg STK-MED ONCE .ROUTE ; Start 03/24/17 at 16:02; Stop at 16:03; Status DC Albumin Human 500 ml @ As Directed STK-MED ONCE IV ; Start 03/24/17 at 17:03; Stop 03/24/17 at 17:04; Status DC Phenylephrine HCl (Corky-Synephrine Inj) 10 mg STK-MED ONCE .ROUTE ; Start at 17:27; Stop 03/24/17 at 17:28; Status DC Rocuronium [place] (Zemuron) 100 mg STK-MED ONCE .ROUTE ; Start 03/24/17 at 17: 57; Stop 03/24/17 at 17:58; Status DC Enoxaparin Sodium (Lovenox 40mg Syringe) 40 mg Q24H SQ Last administered on 20:51; Start 03/24/17 at 20:45; Stop 03/26/17 at 19:34; Status DC Sodium Chloride (Normal Saline Flush) 3 ml QSHIFT PRN IV AFTER MEDS AND BLOOD DRAWS; Start 03/24/17 at 20:45 Ringer's Solution 1,000 ml @ 100 mls/hr Q10H IV Last administered on 12:32; Start 03/24/17 at 20:43; Stop 03/25/17 at 16:52; Status DC Naloxone HCl (Narcan) 0.4 mg PRN Q2MIN PRN IV SEE INSTRUCTIONS; Start at 20:45 Sodium Chloride 1,000 ml @ 25 mls/hr Q24H IV Last administered on 03/27/17 12:08; Start 03/24/17 at 20:43; Stop 04/15/17 at 10:40; Status DC Hydromorphone HCl 30 ml @ 0 mls/hr CONT PRN PRN IV PROTOCOL Last administered on 03/24/17 23:16; Start 03/24/17 at 20:45 Prochlorperazine Edisylate (Compazine) 5 mg PRN Q4HRS PRN IV NAUSEA/VOMITING, 2ND CHOICE; Start 03/25/17 at 07:45 Pantoprazole Sodium (PROTONIX VIAL for IV PUSH) 40 mg DAILYAC IVP Last administered on 04/17/17 08:44; Start 03/25/17 at 10:15 Linezolid 300 ml @ 300 mls/hr Q12HR IV Last administered on 03/26/17 20:54; Start 03/25/17 at 11:00; Stop 03/27/17 at 08:05; Status DC Fluconazole/ Sodium Chloride 100 ml @ 100 mls/hr Q24H IV Last administered on 04/07/17 11:52; Start 03/25/17 at 11:00; Stop 04/07/17 at 13:39; Status DC Dextrose/Lactated Ringer's 1,000 ml @ 75 mls/hr [id number] IV Last administered on 04/03/17 08:54; Start 03/25/17 at 17:00; Stop 04/04/17 at 09:23; Status DC Famotidine (Pepcid Vial) 40 mg QHS IVP Last administered on 03/28/17 21:35; Start 03/25/17 at 21:00; Stop 03/29/17 at 08:02; Status DC Lorazepam (Ativan) 0.5 mg 1X ONCE IV ; Start 03/26/17 at 07:00; Stop at 07:01; Status Cancel Lorazepam (Ativan) 0.5 mg PRN Q8HRS PRN PO ANXIETY / AGITATION; Start at 07:00; Status Cancel Furosemide (Lasix) 40 mg 1X ONCE IVP Last administered on 03/26/17 09:54; Start 03/26/17 at 09:00; Stop 03/26/17 at 09:01; Status DC Furosemide (Lasix) 20 mg DAILY IVP Last administered on 03/30/17 09:29; Start 03/27/17 at 09:00; Stop 03/31/17 at 12:22; Status DC Digoxin (Lanoxin) 250 mcg 1X ONCE IV Last administered on 03/26/17 15:06; Start 03/26/17 at 15:15; Stop 03/26/17 at 15:16; Status DC Iohexol (Omnipaque 300 Mg/ml) 75 ml 1X ONCE IV Last administered on 16:41; Start 03/26/17 at 16:45; Stop 03/26/17 at 16:46; Status DC Info (Do NOT chart on this entry -- for MONITORING) 1 each PRN DAILY PRN MC SEE COMMENTS; Start 03/26/17 at 16:45; Stop 03/28/17 at 16:44; Status DC Norepinephrine Bitartrate 250 ml @ As Directed STK-MED ONCE IV ; Start at 17:42; Stop 03/26/17 at 17:43; Status DC Norepinephrine Bitartrate 250 ml @ 0 mls/hr CONT PRN IV SEE I/O RECORD Last administered on 03/26/17 18:01; Start 03/26/17 at 18:00; Stop 04/04/17 at 09 :57; Status DC Enoxaparin Sodium (Lovenox Per Pharmacy Treatment Dosing) 1 each PRN DAILY PRN MC SEE COMMENTS; Start 03/26/17 at 19:30; Stop 03/28/17 at 12:38; Status DC Enoxaparin Sodium (Lovenox 80mg Syringe) 80 mg Q12HR SQ Last administered on 21:51; Start 03/26/17 at 20:00; Stop 03/28/17 at 15:36; Status DC Daptomycin 460 mg/ Sodium Chloride 50 ml @ 100 mls/hr Q24H IV Last administered on 04/11/17 09:41; Start 03/27/17 at 09:00; Stop 04/12/17 at 07: 49; Status DC Digoxin (Lanoxin) 250 mcg 1X ONCE IV Last administered on 03/27/17 12:09; Start 03/27/17 at 12:00; Stop 03/27/17 at 12:01; Status DC Insulin Detemir (Levemir) 5 units QHS SQ Last administered on 04/04/17 21:30 ; Start 03/27/17 at 21:00; Stop 04/05/17 at 09:34; Status DC Albumin Human 100 ml @ 100 mls/hr Q8H IV Last administered on 03/29/17 00:42 ; Start 03/28/17 at 09:00; Stop 03/29/17 at 01:59; Status DC Lorazepam (Ativan) 1 mg PRN Q6HRS PRN PO ANXIETY / AGITATION Last administered on 04/07/17 05:43; Start 03/28/17 at 16:00; Stop 04/07/17 at 16:34; Status DC Iohexol (Omnipaque 300 Mg/ml) 75 ml 1X ONCE IV Last administered on 16:00; Start 03/28/17 at 16:00; Stop 03/28/17 at 16:02; Status DC Info (Do NOT chart on this entry -- for MONITORING) 1 each PRN DAILY PRN MC SEE COMMENTS; Start 03/28/17 at 16:15; Stop 03/30/17 at 16:14; Status DC Fentanyl Citrate (Fentanyl 2ml Vial) 50 mcg PRN Q4HRS PRN IV PAIN Last administered on 04/16/17 18:02; Start 03/29/17 at 09:45 Ciprofloxacin/ Dextrose 200 ml @ 200 mls/hr Q12HR IV Last administered on 08:58; Start 03/30/17 at 09:00; Stop 04/04/17 at 10:45; Status DC Lorazepam (Ativan) 0.5 mg Q12HR PO Last administered on 04/12/17 22:14; Start 03/30/17 at 21:00; Stop 04/13/17 at 09:16; Status DC Dopamine HCl/ Dextrose 250 ml @ 15.155 mls/ hr CONT PRN IV SEE I/O RECORD Last administered on 04/06/17 15:44; Start 03/31/17 at 13:00 Info 1 each PRN DAILY PRN MC SEE COMMENTS Last administered on 04/16/17 13:36 ; Start 04/03/17 at 12:15 Sodium Chloride 90 meq/Potassium Chloride 50 meq/ Potassium Phosphate 20.4 mmol/ Magnesium Sulfate 10 meq/ Calcium Gluconate 10 meq/ Multivitamins 10 ml/Chromium / Copper/Manganese/ Seleni/Zn 1 ml/ Total Parenteral Nutrition/Amino Acids/ Dextrose/ Fat Emulsion Intravenous 1,512 ml @ 63 mls/hr TPN CONT IV Last administered on 04/03/17 21:38; Start 04/03/17 at 22:00; Stop 04/04/17 at 21 :59; Status DC Levofloxacin/ Dextrose 100 ml @ 100 mls/hr Q24H IV Last administered on 21:47; Start 04/04/17 at 21:00; Stop 04/07/17 at 13:39; Status DC Furosemide (Lasix) 40 mg DAILY IVP Last administered on 04/17/17 08:44; Start 04/04/17 at 12:00 Sodium Chloride 90 meq/Potassium Chloride 50 meq/ Potassium Phosphate 20.4 mmol/ Magnesium Sulfate 16 meq/ Calcium Gluconate 10 meq/ Multivitamins 10 ml/Chromium / Copper/Manganese/ Seleni/Zn 1 ml/ Total Parenteral Nutrition/Amino Acids/ Dextrose/ Fat Emulsion Intravenous 1,512 ml @ 63 mls/hr TPN CONT IV Last administered on 04/04/17 21:16; Start 04/04/17 at 22:00; Stop 04/05/17 at 21 :59; Status DC Insulin Detemir (Levemir) 20 units QHS SQ Last administered on 04/10/17 21:39 ; Start 04/05/17 at 21:00; Stop 04/11/17 at 08:11; Status DC Insulin Detemir (Levemir) 10 units 1X ONCE SQ Last administered on 04/05/17 14:12; Start 04/05/17 at 09:45; Stop 04/05/17 at 09:46; Status DC Sodium Chloride 90 meq/Potassium Chloride 50 meq/ Potassium Phosphate 20.4 mmol/ Magnesium Sulfate 24 meq/ Calcium Gluconate 10 meq/ Multivitamins 10 ml/Chromium / Copper/Manganese/ Seleni/Zn 1 ml/ Total Parenteral Nutrition/Amino Acids/ Dextrose/ Fat Emulsion Intravenous 1,512 ml @ 63 mls/hr TPN CONT IV Last administered on 04/05/17 20:55; Start 04/05/17 at 22:00; Stop 04/06/17 at 21: 59; Status DC Iohexol (Omnipaque 300 Mg/ml) 75 ml 1X ONCE IV ; Start 04/05/17 at 13:00; Stop 04/05/17 at 13:01; Status DC Iohexol (Omnipaque 240 Mg/ml) 30 ml 1X ONCE PO ; Start 04/05/17 at 13:00; Stop 04/05/17 at 13:01; Status DC Info (Do NOT chart on this entry -- for MONITORING) 1 each PRN DAILY PRN MC SEE COMMENTS; Start 04/05/17 at 13:00; Stop 04/07/17 at 12:59; Status DC Sodium Chloride 90 meq/Potassium Chloride 50 meq/ Potassium Phosphate 20.4 mmol/ Magnesium Sulfate 24 meq/ Calcium Gluconate 10 meq/ Multivitamins 10 ml/Chromium / Copper/Manganese/ Seleni/Zn 1 ml/ Total Parenteral Nutrition/Amino Acids/ Dextrose/ Fat Emulsion Intravenous 1,512 ml @ 63 mls/hr TPN CONT IV Last administered on 04/06/17 21:45; Start 04/06/17 at 22:00; Stop 04/07/17 at 21:59 ; Status DC Lidocaine/Sodium Bicarbonate (Buffered Lidocaine 1%) 20 ml STK-MED ONCE IJ ; Start 04/06/17 at 14:28; Stop 04/06/17 at 14:29; Status DC Fentanyl Citrate (Fentanyl 2ml Vial) 100 mcg STK-MED ONCE .ROUTE ; Start at 14:45; Stop 04/06/17 at 14:46; Status DC Midazolam HCl (Versed) 2 mg STK-MED ONCE .ROUTE ; Start 04/06/17 at 14:45; Stop 04/06/17 at 14:46; Status DC Flumazenil (Romazicon) 0.5 mg STK-MED ONCE IV ; Start 04/06/17 at 14:45; Stop 04/06/17 at 14:46; Status DC Naloxone HCl (Narcan) 0.4 mg STK-MED ONCE .ROUTE ; Start 04/06/17 at 14:45; Stop 04/06/17 at 14:46; Status DC Dopamine HCl/ Dextrose 250 ml @ As Directed STK-MED ONCE IV ; Start 04/06/17 at 14:50; Stop 04/06/17 at 14:51; Status DC Lidocaine/Sodium Bicarbonate (Buffered Lidocaine 1%) 7 ml 1X ONCE IJ Last administered on 04/06/17 15:20; Start 04/06/17 at 15:30; Stop 04/06/17 at 15:31 ; Status DC Sodium Chloride 90 meq/Potassium Chloride 50 meq/ Potassium Phosphate 13.6 mmol/ Magnesium Sulfate 20 meq/ Calcium Gluconate 10 meq/ Multivitamins 10 ml/Chromium / Copper/Manganese/ Seleni/Zn 1 ml/ Total Parenteral Nutrition/Amino Acids/ Dextrose/ Fat Emulsion Intravenous 1,512 ml @ 63 mls/hr TPN CONT IV Last administered on 04/07/17 21:19; Start 04/07/17 at 22:00; Stop 04/08/17 at 21:59 ; Status DC Micafungin Sodium 100 mg/Sodium Chloride 100 ml @ 100 mls/hr Q24H IV Last administered on 04/16/17 13:09; Start 04/07/17 at 14:00; Stop 04/17/17 at 07: 48; Status DC Metronidazole 100 ml @ 100 mls/hr Q8HRS IV Last administered on 04/17/17 06: 17; Start 04/07/17 at 14:00 Cefepime HCl 1 gm/ Dextrose 50 ml @ 100 mls/hr Q8HRS IV ; Start 04/07/17 at 14: 00; Status UNV Cefepime HCl (Maxipime) 1 gm Q8HRS IVP Last administered on 04/17/17 06:17; Start 04/07/17 at 14:00 Sodium Chloride 90 meq/Potassium Chloride 50 meq/ Potassium Phosphate 13.6 mmol/ Magnesium Sulfate 20 meq/ Calcium Gluconate 10 meq/ Multivitamins 10 ml/Chromium / Copper/Manganese/ Seleni/Zn 1 ml/ Total Parenteral Nutrition/Amino Acids/ Dextrose/ Fat Emulsion Intravenous 1,512 ml @ 63 mls/hr TPN CONT IV Last administered on 04/08/17 21:23; Start 04/08/17 at 22:00; Stop 04/09/17 at 21:59 ; Status DC Furosemide (Lasix) 40 mg 1X ONCE IVP Last administered on 04/09/17 10:03; Start 04/09/17 at 08:15; Stop 04/09/17 at 08:16; Status DC Sodium Chloride 90 meq/Potassium Chloride 50 meq/ Potassium Phosphate 13.6 mmol/ Magnesium Sulfate 20 meq/ Calcium Gluconate 10 meq/ Multivitamins 10 ml/Chromium / Copper/Manganese/ Seleni/Zn 1 ml/ Total Parenteral Nutrition/Amino Acids/ Dextrose/ Fat Emulsion Intravenous 1,512 ml @ 63 mls/hr TPN CONT IV Last administered on 04/09/17 21:52; Start 04/09/17 at 22:00; Stop 04/10/17 at 21:59 ; Status DC Sodium Chloride 90 meq/Potassium Chloride 60 meq/ Potassium Phosphate 13.6 mmol/ Magnesium Sulfate 20 meq/ Calcium Gluconate 10 meq/ Multivitamins 10 ml/Chromium / Copper/Manganese/ Seleni/Zn 1 ml/ Total Parenteral Nutrition/Amino Acids/ Dextrose/ Fat Emulsion Intravenous 1,512 ml @ 63 mls/hr TPN CONT IV Last administered on 04/10/17 21:37; Start 04/10/17 at 22:00; Stop 04/11/17 at 21:59 ; Status DC Insulin Detemir (Levemir) 22 units QHS SQ Last administered on 04/11/17 22:08 ; Start 04/11/17 at 21:00; Stop 04/12/17 at 12:21; Status DC Enoxaparin Sodium (Lovenox 40mg Syringe) 40 mg Q24H SQ Last administered on 08:44; Start 04/11/17 at 09:00 Sodium Chloride 90 meq/Potassium Chloride 60 meq/ Potassium Phosphate 13.6 mmol/ Magnesium Sulfate 20 meq/ Calcium Gluconate 10 meq/ Multivitamins 10 ml/Chromium / Copper/Manganese/ Seleni/Zn 1 ml/ Total Parenteral Nutrition/Amino Acids/ Dextrose/ Fat Emulsion Intravenous 1,512 ml @ 63 mls/hr TPN CONT IV Last administered on 04/11/17 21:59; Start 04/11/17 at 22:00; Stop 04/12/17 at 21:59 ; Status DC Norepinephrine Bitartrate 250 ml @ As Directed STK-MED ONCE IV ; Start at 15:51; Stop 04/11/17 at 15:52; Status DC Norepinephrine Bitartrate 250 ml @ 0 mls/hr CONT PRN IV SEE I/O RECORD Last administered on 04/17/17 03:20; Start 04/11/17 at 22:30 Linezolid 300 ml @ 300 mls/hr Q12HR IV Last administered on 04/16/17 21:14; Start 04/12/17 at 09:00 Norepinephrine Bitartrate (Levophed 8mg/ 250ml Premix Drip) 8 mg STK-MED ONCE IV ; Start 04/11/17 at 16:00; Stop 04/12/17 at 09:06; Status DC Insulin Detemir (Levemir) 24 units QHS SQ Last administered on 04/12/17 22:16 ; Start 04/12/17 at 21:00; Stop 04/13/17 at 08:24; Status DC Sodium Chloride 90 meq/Potassium Chloride 60 meq/ Potassium Phosphate 13.6 mmol/ Magnesium Sulfate 20 meq/ Calcium Gluconate 10 meq/ Multivitamins 10 ml/Chromium / Copper/Manganese/ Seleni/Zn 1 ml/ Total Parenteral Nutrition/Amino Acids/ Dextrose/ Fat Emulsion Intravenous 1,512 ml @ 63 mls/hr TPN CONT IV Last administered on 04/12/17 22:15; Start 04/12/17 at 22:00; Stop 04/13/17 at 21:59 ; Status DC Insulin Detemir (Levemir) 26 units QHS SQ Last administered on 04/13/17 21:56 ; Start 04/13/17 at 21:00; Stop 04/14/17 at 21:44; Status DC Lorazepam (Ativan) 0.5 mg PRN Q8HRS PRN PO ANXIETY / AGITATION Last administered on 04/16/17 21:14; Start 04/14/17 at 09:00 Sodium Chloride 90 meq/Potassium Chloride 60 meq/ Potassium Phosphate 13.6 mmol/ Magnesium Sulfate 15 meq/ Calcium Gluconate 8 meq/ Multivitamins 10 ml/Chromium / Copper/Manganese/ Seleni/Zn 1 ml/ Total Parenteral Nutrition/Amino Acids/ Dextrose/ Fat Emulsion Intravenous 1,512 ml @ 63 mls/hr TPN CONT IV Last administered on 04/13/17 21:45; Start 04/13/17 at 22:00; Stop 04/14/17 at 21:59 ; Status DC Sodium Chloride 90 meq/Potassium Chloride 60 meq/ Potassium Phosphate 13.6 mmol/ Magnesium Sulfate 10 meq/ Calcium Gluconate 8 meq/ Multivitamins 10 ml/Chromium / Copper/Manganese/ Seleni/Zn 1 ml/ Total Parenteral Nutrition/Amino Acids/ Dextrose/ Fat Emulsion Intravenous 1,512 ml @ 63 mls/hr TPN CONT IV ; Start 04/14/17 at 22:00; Stop 04/14/17 at 22:00; Status DC Sodium Chloride 90 meq/Potassium Chloride 60 meq/ Potassium Phosphate 13.6 mmol/ Magnesium Sulfate 15 meq/ Calcium Gluconate 8 meq/ Multivitamins 10 ml/Chromium / Copper/Manganese/ Seleni/Zn 1 ml/ Total Parenteral Nutrition/Amino Acids/ Dextrose/ Fat Emulsion Intravenous 1,512 ml @ 63 mls/hr TPN CONT IV Last administered on 04/14/17 21:27; Start 04/14/17 at 22:00; Stop 04/15/17 at 21: 59; Status DC Insulin Detemir (Levemir) 30 units QHS SQ Last administered on 04/16/17 21:20 ; Start 04/14/17 at 22:00 Sodium Chloride 90 meq/Potassium Chloride 60 meq/ Potassium Phosphate 13.6 mmol/ Magnesium Sulfate 15 meq/ Calcium Gluconate 8 meq/ Multivitamins 10 ml/Chromium / Copper/Manganese/ Seleni/Zn 1 ml/ Total Parenteral Nutrition/Amino Acids/ Dextrose/ Fat Emulsion Intravenous 1,512 ml @ 63 mls/hr TPN CONT IV Last administered on 04/15/17 21:52; Start 04/15/17 at 22:00; Stop 04/16/17 at 21 :59; Status DC Insulin Aspart (NovoLOG) 0-9 UNITS Q6HRS SQ Last administered on 04/17/17 00: 20; Start 04/15/17 at 18:00 Dextrose (Dextrose 50%-Water Syringe) 12.5 gm PRN Q15MIN PRN IV SEE COMMENTS; Start 04/15/17 at 15:30 Alteplase, Recombinant (Cathflo) 2 mg 1X ONCE INT CAT Last administered on 09:29; Start 04/16/17 at 09:00; Stop 04/16/17 at 09:01; Status DC Bupropion HCl (Wellbutrin Xl) 150 mg DAILY PO Last administered on 04/17/17 08:45; Start 04/16/17 at 10:00 Alteplase, Recombinant (Cathflo) 2 mg 1X ONCE INT CAT Last administered on 10:17; Start 04/16/17 at 10:15; Stop 04/16/17 at 10:16; Status DC Alteplase, Recombinant (Cathflo) 2 mg 1X ONCE INT CAT Last administered on 11:26; Start 04/16/17 at 11:15; Stop 04/16/17 at 11:16; Status DC Alteplase, Recombinant (Cathflo) 2 mg 1X ONCE INT CAT Last administered on 11:25; Start 04/16/17 at 11:15; Stop 04/16/17 at 11:16; Status DC Multivitamins (Thera M Plus) 1 tab DAILY PO Last administered on 04/17/17 08: 45; Start 04/16/17 at 13:00 Ascorbic Acid (Vitamin C) 500 mg DAILY PO Last administered on 04/17/17 08:45 ; Start 04/16/17 at 13:00 Sodium Chloride 110 meq/Potassium Chloride 60 meq/ Potassium Phosphate 15 mmol/ Magnesium Sulfate 15 meq/Calcium Gluconate 8 meq/ Multivitamins 10 ml/Chromium/ Copper/Manganese/ Seleni/Zn 1 ml/ Insulin Human Regular 15 unit/ Total Parenteral Nutrition/Amino Acids/Dextrose/ Fat Emulsion Intravenous 1,512 ml @ 63 mls/hr TPN CONT IV ; Start 04/16/17 at 22:00; Stop 04/16/17 at 22:00; Status DC Sodium Chloride 110 meq/Potassium Chloride 60 meq/ Potassium Phosphate 15 mmol/ Magnesium Sulfate 15 meq/Calcium Gluconate 8 meq/ Multivitamins 10 ml/Chromium/ Copper/Manganese/ Seleni/Zn 1 ml/ Insulin Human Regular 10 unit/ Total Parenteral Nutrition/Amino Acids/Dextrose/ Fat Emulsion Intravenous 1,512 ml @ 63 mls/hr TPN CONT IV Last administered on 04/16/17t 21:27; Start 04/16/17 at 22:00; Stop 04/17/17 at 21:59 Active Scripts Active Reported Flagyl (Metronidazole) 500 Mg Tablet 1 Tab PO BID Cefpodoxime Proxetil 200 Mg Tablet 1 Tab PO BID Ferrous Sulfate 325 Mg Tablet 1 Tab PO DAILY Lasix (Furosemide) 40 Mg Tablet 40 Mg PO QODAY Potassium Chloride 10 Meq Capsule.er 10 Meq PO QODAY Metoprolol Tartrate 25 Mg Tablet 12.5 Mg PO BID Atorvastatin Calcium 40 Mg Tablet 40 Mg PO HS Clopidogrel (Clopidogrel Bisulfate) 75 Mg Tablet 1 Tab PO DAILY Diclofenac Sodium 75 Mg Tablet.dr 75 Mg PO DAILY Ranitidine Hcl 150 Mg Tablet 1 Tab PO BID Aspirin 81 Mg Tab.chew 1 Tab PO DAILY Vitals/I & O Vital Sign - Last 24 Hours 04/16/17 04/16/17 04/16/17 04/16/17 10:00 11:00 11:28 12:00 Temp 99.8 99.8 Pulse 111 111 101 Resp 28 30 27 29 B/P (MAP) 91/55 (67) 98/49 (65) 91/57 (68) Pulse Ox 98 98 98 98 O2 Delivery Nasal Cannula Nasal Cannula Nasal Cannula Nasal Cannula O2 Flow Rate 4.0 4.0 4.0 4.0 04/16/17 04/16/17 04/16/17 04/16/17 12:00 12:00 13:00 14:00 Pulse 105 120 Resp 33 35 B/P (MAP) 83/51 (62) 101/54 (70) Pulse Ox 99 99 O2 Delivery Nasal Cannula Nasal Cannula Nasal Cannula O2 Flow Rate 4.0 4.0 4.0 4.0 04/16/17 04/16/17 04/16/17 04/16/17 14:35 15:00 16:00 16:00 Temp 99.5 99.5 Pulse 99 105 Resp 25 28 33 B/P (MAP) 113/63 (80) 109/65 (80) Pulse Ox 99 99 97 O2 Delivery Nasal Cannula Nasal Cannula Nasal Cannula Nasal Cannula O2 Flow Rate 4.0 4.0 4.0 4.0 04/16/17 04/16/17 04/16/17 04/16/17 16:00 17:00 18:00 18:02 Pulse 103 126 Resp 33 28 37 B/P (MAP) 123/79 (94) 96/51 (66) Pulse Ox 98 97 98 O2 Delivery Nasal Cannula Nasal Cannula Nasal Cannula O2 Flow Rate 4.0 4.0 4.0 4.0 04/16/17 04/16/17 04/16/17 04/16/17 18:33 19:00 20:00 20:00 Temp 99.4 99.4 Pulse 110 115 Resp 29 30 32 B/P (MAP) 94/45 (61) 89/44 (59) Pulse Ox 98 99 100 O2 Delivery Nasal Cannula Nasal Cannula Nasal Cannula O2 Flow Rate 4.0 4.0 4.0 4.0 04/16/17 04/16/17 04/16/17 04/16/17 20:00 21:00 21:14 22:00 Pulse 119 124 Resp 40 12 37 B/P (MAP) 96/51 (66) 108/57 (74) Pulse Ox 100 98 100 O2 Delivery Nasal Cannula Nasal Cannula Nasal Cannula Nasal Cannula O2 Flow Rate 4.0 4.0 4.0 4.0 04/16/17 04/17/17 04/17/17 04/17/17 23:00 00:00 00:00 00:00 Temp 100.4 100.4 Pulse 124 124 Resp 37 37 B/P (MAP) 83/56 (65) 82/43 (56) Pulse Ox 100 100 O2 Delivery Nasal Cannula Nasal Cannula Nasal Cannula O2 Flow Rate 4.0 4.0 4.0 4.0 04/17/17 04/17/17 04/17/17 04/17/17 01:00 02:00 03:00 03:20 Pulse 124 124 124 Resp 37 37 37 34 B/P (MAP) 88/49 (62) 102/54 (70) 100/54 (69) Pulse Ox 100 100 100 100 O2 Delivery Nasal Cannula Nasal Cannula Nasal Cannula Nasal Cannula O2 Flow Rate 4.0 4.0 4.0 4.0 04/17/17 04/17/17 04/17/17 04/17/17 04:00 04:00 04:00 04:00 Temp 98.2 98.2 Pulse 124 124 Resp 37 37 B/P (MAP) 98/49 (65) 91/46 (61) Pulse Ox 100 100 O2 Delivery Nasal Cannula Nasal Cannula Nasal Cannula O2 Flow Rate 4.0 4.0 4.0 4.0 04/17/17 04/17/17 04/17/17 04/17/17 04:20 06:00 07:00 08:46 Pulse 124 104 Resp 30 37 21 25 B/P (MAP) 84/48 (60) 77/54 (62) Pulse Ox 100 100 99 99 O2 Delivery Nasal Cannula Nasal Cannula Nasal Cannula Nasal Cannula O2 Flow Rate 4.0 4.0 4.0 4.0 Intake and Output 04/16/17 04/16/17 04/17/17 15:00 23:00 07:00 Intake Total 140 ml 1670 ml 1026 ml Output Total 1340 ml 765 ml 455 ml Balance -1200 ml 905 ml 571 ml DANNY MEZA MD Apr 17, 2017 09:03
--- NOTE | 2017-04-17 11:42 | PDOC ---
PULMONARY PROGRESS NOTES Subjective feels comfortable on canula Vitals Vital Signs Date Time Temp Pulse Resp B/P (MAP) Pulse Ox O2 Delivery O2 Flow Rate FiO2 04/17/17 11:00 99 30 93/53 (66) 97 Nasal Cannula 4.0 04/17/17 08:00 98.3 98.3 ROS: No Nausea, No Chest Pain, No Abdominal Pain, No Increase Cough General: Alert, No acute distress Lungs: Clear Cardiovascular: S1, S2 Abdomen: Soft, Other (colostomy/ drains in place) Neuro Exam: Alert Extremities: Other (1+edema) Skin: Warm Labs Laboratory Tests Test 04/15/17 17:10 04/15/17 21:47 04/16/17 00:33 04/16/17 06:19 Glucose (Fingerstick) 321 mg/dL (70-99) 301 mg/dL (70-99) 340 mg/dL (70-99) 230 mg/dL (70-99) Test 04/16/17 07:15 04/16/17 11:00 04/16/17 17:34 04/16/17 21:09 White Blood Count 8.0 x10^3/uL (4.0-11.0) Red Blood Count 3.52 x10^6/uL (3.50-5.40) Hemoglobin 9.8 g/dL (12.0-15.5) Hematocrit 31.6 % (36.0-47.0) Mean Corpuscular Volume 90 fL (79-100) Mean Corpuscular Hemoglobin 28 pg (25-35) Mean Corpuscular Hemoglobin Concent 31 g/dL (31-37) Red Cell Distribution Width 18.0 % (11.5-14.5) Platelet Count 428 x10^3/uL (140-400) Neutrophils (%) (Auto) 82 % (31-73) Lymphocytes (%) (Auto) 13 % (24-48) Monocytes (%) (Auto) 5 % (0-9) Eosinophils (%) (Auto) 0 % (0-3) Basophils (%) (Auto) 0 % (0-3) Neutrophils # (Auto) 6.6 x10^3uL (1.8-7.7) Lymphocytes # (Auto) 1.1 x10^3/uL (1.0-4.8) Monocytes # (Auto) 0.4 x10^3/uL (0.0-1.1) Eosinophils # (Auto) 0.0 x10^3/uL (0.0-0.7) Basophils # (Auto) 0.0 x10^3/uL (0.0-0.2) Sodium Level 135 mmol/L (136-145) Potassium Level 4.5 mmol/L (3.5-5.1) Chloride Level 102 mmol/L (98-107) Carbon Dioxide Level 28 mmol/L (21-32) Anion Gap 5 (6-14) Blood Urea Nitrogen 18 mg/dL (7-20) Creatinine 0.6 mg/dL (0.6-1.0) Estimated GFR (Cockcroft-Gault) 98.5 BUN/Creatinine Ratio 30 (6-20) Glucose Level 219 mg/dL (70-99) Calcium Level 7.5 mg/dL (8.5-10.1) Phosphorus Level 2.7 mg/dL (2.6-4.7) Magnesium Level 2.1 mg/dL (1.8-2.4) Total Bilirubin 0.2 mg/dL (0.2-1.0) Aspartate Amino Transf (AST/SGOT) 17 U/L (15-37) Alanine Aminotransferase (ALT/SGPT) 6 U/L (14-59) Alkaline Phosphatase 67 U/L (46-116) Total Protein 5.2 g/dL (6.4-8.2) Albumin 0.9 g/dL (3.4-5.0) Albumin/Globulin Ratio 0.2 (1.0-1.7) Glucose (Fingerstick) 265 mg/dL (70-99) 183 mg/dL (70-99) Test 04/17/17 00:13 04/17/17 06:21 Glucose (Fingerstick) 194 mg/dL (70-99) 124 mg/dL (70-99) Laboratory Tests Test 04/16/17 17:34 04/16/17 21:09 04/17/17 00:13 04/17/17 06:21 Glucose (Fingerstick) 265 mg/dL (70-99) 183 mg/dL (70-99) 194 mg/dL (70-99) 124 mg/dL (70-99) Medications Active Scripts Medications Dose Route/Sig Max Daily Dose Days Date Category Flagyl (Metronidazole) 500 Mg Tablet 1 Tab PO BID 03/01/17 Reported Cefpodoxime Proxetil 200 Mg Tablet 1 Tab PO BID 03/01/17 Reported Ferrous Sulfate 325 Mg Tablet 1 Tab PO DAILY 02/23/17 Reported Lasix (Furosemide) 40 Mg Tablet 40 Mg PO QODAY 02/23/17 Reported Potassium Chloride 10 Meq Capsule.er 10 Meq PO QODAY 02/23/17 Reported Metoprolol Tartrate 25 Mg Tablet 12.5 Mg PO BID 01/31/17 Reported Atorvastatin Calcium 40 Mg Tablet 40 Mg PO HS 01/31/17 Reported Clopidogrel (Clopidogrel Bisulfate) 75 Mg Tablet 1 Tab PO DAILY 08/24/15 Reported Diclofenac Sodium 75 Mg Tablet.dr 75 Mg PO DAILY 12/21/14 Reported Ranitidine Hcl 150 Mg Tablet 1 Tab PO BID 12/21/14 Reported Aspirin 81 Mg Tab.chew 1 Tab PO DAILY 04/15/14 Reported Impression . 1. [id number] respiratory failure, MULTIFACTORIAL 2. Status post laparoscopic converted to open exploration for extensive lysis of adhesion, removal of old mesh, subtotal colectomy, small bowel resection and incisional hernia repair 3. Obesity, body mass index of 35. 4. Leukocytosis. 5. Enterocutaneous fistula. Abdominal abscess, measuring 6.4 x 4.9 cm. s/p drain 03/12. Klebsiella ( R to Zosyn, S Cipro/Levo), VRE (R PCN) and PSAE ( R to ticarcillin only otherwise sensitive, S Cipro/Levo) and C tropicalis -h/o Strep anginosis and Bacteroides 6. Fever RESOLVED 7. Abdominal abscess. 8. Ventral hernia, status post repair. 9. Bilateral effusions due to low oncotic pressure/ , small effusions on ct 10. Anxiety disorder 11. hypotension, on levo Palliative Care Spoke with patient and son Chris. Patient off BiPap ---feels better. RR 32-34. Reviewed conversations patient and son had with physicians. Patient wants to continue to try to get better. Son Chris supportive of her wish. Understands that this will need to be evaluated closely as respiratory condition could decline rapidly. Encouraged patient and son to have conversation about any limitations of care that she would want. They understand that recovery could be a long process. Will continue to follow closely. Chris will be at work tomorrow but available by phone if anything changes. Plan . RESP STATUS IS COMPENSATED, CXR UNCHANGED 04/16 WILL AVOID BIPAP DUE TO DAMAGE TO SKIN AT BRIDGE OF NOSE REPEAT CT ABDOMEN/PELVIS REVIEWED/ SMALL EFFUSIONS LASIX PRN VENOUS DOPPLER NEGATIVE/ CT NEGATIVE FOR PE ANXIETY/ ON SCHEDULED ATIVAN COLLOID BOLUS, WEAN OFF LEVO D/W RN D/W SISTER AND PATIENT 04/16.I WOULD FAVOR NO INTUBATION AND DNR was recommended. Pt is now DNR STACI CORRAL MD Apr 17, 2017 11:42
[2017-04-17] MEDS: TPN PER PHARMACY MC PRN (14:03)
[2017-04-17] MEDS: fentaNYL PF VIAL 100 MCG/2 ML VIAL IV PRN ×2 (17:46→23:17)
[2017-04-17 18:56] LABS: CALCIUM 7.7 mg/dL (8.5-10.1); CREATININE 0.7 mg/dL (0.6-1.0); GFR 82.5; MAGNESIUM 2.1 mg/dL (1.8-2.4); POTASSIUM 4.4 mmol/L (3.5-5.1)
[2017-04-17] MEDS ORDERED: ALBUMIN HUMAN 25% 50 ML IV ONE ×2 (19:30→21:30)
[2017-04-17] MEDS: INSULIN DETEMIR 300 UNITS/3 ML INSULN.PEN. SQ SCH (20:24)
[2017-04-17] MEDS ORDERED: DEXTROSE 70% IV SCH ×11 (22:00)
[2017-04-17] MEDS ORDERED: AMINO ACIDS IV SCH ×11 (22:00)
[2017-04-17] MEDS ORDERED: TOTAL PARENTERAL NUTRITION IV SCH ×11 (22:00)
[2017-04-17] MEDS ORDERED: [UNRECOGNIZED DRUG - OTHER] IV SCH ×11 (22:00)
[2017-04-18] VITALS (28 sets, daily range): BP systolic 78–153; BP diastolic 41–93
[2017-04-18 00:11] LABS: CALCIUM 7.3 mg/dL (8.5-10.1); CREATININE 0.6 mg/dL (0.6-1.0); GFR 98.5; MAGNESIUM 2.2 mg/dL (1.8-2.4); POTASSIUM 4.5 mmol/L (3.5-5.1)
[2017-04-18] MEDS: NOREPINEPHRIN PREMIX 250 ML IV PRN (01:37)
[2017-04-18] MEDS: HYDROcodone/APAP 7.5/325MG 1 TAB TABLET PO PRN ×4 (02:56→20:53)
[2017-04-18] MEDS: CEFEPIME HCL IV Push 1 GM VIAL. IVP SCH ×2 (05:19→14:00)
[2017-04-18] MEDS: LORazepam 0.5 MG TABLET PO PRN ×2 (05:19→20:37)
[2017-04-18] MEDS: INSULIN ASPART 300 UNITS/3 ML INSULN.PEN SQ SCH ×5 (06:00→23:28)
[2017-04-18 06:24] LABS: CREATININE 0.6 mg/dL (0.6-1.0); GFR 98.5; POTASSIUM 4.4 mmol/L (3.5-5.1)
--- NOTE | 2017-04-18 07:42 | PDOC ---
Infectious Disease Note Subjective Subjective pt says she is feeling better,, but sob with any movement ROS ROS GEN: Denies fevers, chills, sweats HEENT: Denies blurred vision, sore throat CV: Denies chest pain GI: Denies n/v/d NEURO: Denies confusion, dizziness MSK: Denies weakness, joint pain/swelling Vital Sign Vital Signs Vital Signs Date Time Temp Pulse Resp B/P (MAP) Pulse Ox O2 Delivery O2 Flow Rate FiO2 04/18/17 07:00 124 35 124/70 (88) 99 Nasal Cannula 4.0 04/18/17 04:00 98.6 98.6 Physical Exam PHYSICAL EXAM GENERAL: NAD, Alert HEENT: PERRL, OC/OP NECK: Supple, no JVD, no LN LUNGS: Clear HEART: S1S2, no gallop, no murmur ABD: Soft, NT, no organomegaly, no rebound,, abd wound with slight dehiscence seen EXT: No edema, no cyanosis [employer]: Alert, oriented x 3, no focal neurologic deficit SKIN: No rash IV: ok Labs Lab Laboratory Tests Test 04/17/17 17:47 04/17/17 18:25 04/17/17 20:24 04/17/17 23:25 Glucose (Fingerstick) 185 mg/dL (70-99) 203 mg/dL (70-99) 189 mg/dL (70-99) Sodium Level 137 mmol/L (136-145) Potassium Level 4.4 mmol/L (3.5-5.1) Chloride Level 102 mmol/L (98-107) Carbon Dioxide Level 26 mmol/L (21-32) Anion Gap 9 (6-14) Blood Urea Nitrogen 22 mg/dL (7-20) Creatinine 0.7 mg/dL (0.6-1.0) Estimated GFR (Cockcroft-Gault) 82.5 Glucose Level 201 mg/dL (70-99) Calcium Level 7.7 mg/dL (8.5-10.1) Phosphorus Level 3.4 mg/dL (2.6-4.7) Magnesium Level 2.1 mg/dL (1.8-2.4) Test 04/17/17 23:30 04/18/17 05:31 Sodium Level 137 mmol/L (136-145) 137 mmol/L (136-145) Potassium Level 4.5 mmol/L (3.5-5.1) 4.4 mmol/L (3.5-5.1) Chloride Level 102 mmol/L (98-107) 104 mmol/L (98-107) Carbon Dioxide Level 27 mmol/L (21-32) 21 mmol/L (21-32) Anion Gap 8 (6-14) 12 (6-14) Blood Urea Nitrogen 22 mg/dL (7-20) 21 mg/dL (7-20) Creatinine 0.6 mg/dL (0.6-1.0) 0.6 mg/dL (0.6-1.0) Estimated GFR (Cockcroft-Gault) 98.5 98.5 Glucose Level 203 mg/dL (70-99) 135 mg/dL (70-99) Calcium Level 7.3 mg/dL (8.5-10.1) 8.0 mg/dL (8.5-10.1) Magnesium Level 2.2 mg/dL (1.8-2.4) Objective Assessment s/p lap converted to open exploration, JAIRO, removal of infected mesh, subtotal colectomy, SBR and hernia repair, 03/24 Leukocytosis, likely reactive, (Dexamethasone pre-op) EC fistula Fever - better Abdominal abscess, measuring 6.4 x 4.9 cm. s/p drain 03/12. Klebsiella ( R to Zosyn, S Cipro/Levo), VRE (R PCN) and PSAE ( R to ticarcillin only otherwise sensitive, S Cipro/Levo) and C tropicalis h/o Strep anginosis and Bacteroides Ventral hernia DM HTN PCN allergy/amox also - hives and swelling Low plt Plan Plan of Care Repeat BC from 04/12 NGTD Cont Zyvox (04/11), Flagyl and Cefepime 04/07,, f/u cultures and monitor CBC/temp Supportive care Guarded prognosis overall given resp failure/deconditioning and worsening wounds SANDRA RODNEY MD Apr 18, 2017 07:42
[2017-04-18] MEDS: METOPROLOL SUCC 24HR ER 25 MG TAB.ER.24H. PO SCH (09:00)
[2017-04-18] MEDS: buPROPion XL 150 MG TAB.ER.24H. PO SCH (09:04)
[2017-04-18] MEDS: ASCORBIC ACID 500 MG TABLET PO SCH (09:04)
[2017-04-18] MEDS: PANTOPRAZOLE IV PUSH 40 MG VIAL. IVP SCH (09:04)
[2017-04-18] MEDS: ASPIRIN CHEWABLE 81 MG TABLET. PO SCH (09:04)
[2017-04-18] MEDS: MULTIVITAMIN with MINERAL TABLET. PO SCH (09:04)
[2017-04-18] MEDS: ENOXAPARIN 40 MG/0.4 ML SYRINGE. SQ SCH (09:05)
[2017-04-18] MEDS: FERROUS SULFATE 325 MG TABLET. PO SCH (09:05)
--- NOTE | 2017-04-18 09:05 | PDOC ---
Provider Note Provider Note will add more albumin re edema, no new questions- labs ok - she has no questions and is ok to continue current meds MILENA MCMILLAN MD Apr 18, 2017 09:05
--- NOTE | 2017-04-18 09:26 | RAD ---
Portable chest, 04/18/2017: History: Respiratory failure Comparison is made to yesterday's study. A right PICC extends to the level of the atriocaval junction. The heart size is unchanged. Moderate bibasilar pulmonary opacities persist with obscuration of the hemidiaphragms. The findings suggest pleural fluid with underlying atelectasis/infiltrate. Allowing for differences in patient positioning, the findings are probably unchanged.. No new abnormality is detected. IMPRESSION: No significant change since yesterday's study.
--- NOTE | 2017-04-18 09:37 | PDOC ---
PROGRESS NOTES Subjective Subjective HPI - f/u of Thrombocytosis ROS - has edema Objective Objective Vital Signs Date Time Temp Pulse Resp B/P (MAP) Pulse Ox O2 Delivery O2 Flow Rate FiO2 04/18/17 09:05 28 97 Nasal Cannula 4.0 04/18/17 09:00 114 118/47 (70) 04/18/17 08:00 97.3 97.3 Intake and Output 04/18/17 07:00 Intake Total 3412 ml Output Total 2167 ml Balance 1245 ml Intake Oral 800 ml IV Total 2612 ml Output Urine Total 1915 ml Stool Total 250 ml Drainage Total 2 ml Physical Exam General: mild distress Neck: No JVD Assessment Assessment Problems Medical Problems: (1) Abdominal abscess Status: Acute (2) Abdominal pain Status: Acute A/P: 1. Thrombocytosis reactive - previously thrombocytopenia.Resolved. Plt count now 428. 2. Anemia. Most likely multifactorial. Iron studies are suggestive of anemia of chronic disease. /B12 normal. Hb 9.8 monitor and transfuse as needed. 3. Abscess. Management as per primary/surgery 4. Status post laparoscopic converted to open exploration for extensive lysis of adhesion, removal of old mesh, subtotal colectomy, small bowel resection and incisional hernia repair. 5. [id number]-ilbmzxa respiratory failure. Persistent dyspnea/ now off BIPAP - appreciate pulm f/u. Appreciate palliative care eval, pt now DNR 6. Edema, management per Dr Prabhakar Comment Review of Relevant I have reviewed the following items chito (where applicable) has been applied. Labs Laboratory Tests Test 04/16/17 11:00 04/16/17 17:34 04/16/17 21:09 04/17/17 00:13 Sodium Level 135 mmol/L (136-145) Potassium Level 4.5 mmol/L (3.5-5.1) Chloride Level 102 mmol/L (98-107) Carbon Dioxide Level 28 mmol/L (21-32) Anion Gap 5 (6-14) Blood Urea Nitrogen 18 mg/dL (7-20) Creatinine 0.6 mg/dL (0.6-1.0) Estimated GFR (Cockcroft-Gault) 98.5 BUN/Creatinine Ratio 30 (6-20) Glucose Level 219 mg/dL (70-99) Calcium Level 7.5 mg/dL (8.5-10.1) Phosphorus Level 2.7 mg/dL (2.6-4.7) Magnesium Level 2.1 mg/dL (1.8-2.4) Total Bilirubin 0.2 mg/dL (0.2-1.0) Aspartate Amino Transf (AST/SGOT) 17 U/L (15-37) Alanine Aminotransferase (ALT/SGPT) 6 U/L (14-59) Alkaline Phosphatase 67 U/L (46-116) Total Protein 5.2 g/dL (6.4-8.2) Albumin 0.9 g/dL (3.4-5.0) Albumin/Globulin Ratio 0.2 (1.0-1.7) Glucose (Fingerstick) 265 mg/dL (70-99) 183 mg/dL (70-99) 194 mg/dL (70-99) Test 04/17/17 06:21 04/17/17 17:47 04/17/17 18:25 04/17/17 20:24 Glucose (Fingerstick) 124 mg/dL (70-99) 185 mg/dL (70-99) 203 mg/dL (70-99) Sodium Level 137 mmol/L (136-145) Potassium Level 4.4 mmol/L (3.5-5.1) Chloride Level 102 mmol/L (98-107) Carbon Dioxide Level 26 mmol/L (21-32) Anion Gap 9 (6-14) Blood Urea Nitrogen 22 mg/dL (7-20) Creatinine 0.7 mg/dL (0.6-1.0) Estimated GFR (Cockcroft-Gault) 82.5 Glucose Level 201 mg/dL (70-99) Calcium Level 7.7 mg/dL (8.5-10.1) Phosphorus Level 3.4 mg/dL (2.6-4.7) Magnesium Level 2.1 mg/dL (1.8-2.4) Test 04/17/17 23:25 04/17/17 23:30 04/18/17 05:31 Glucose (Fingerstick) 189 mg/dL (70-99) Sodium Level 137 mmol/L (136-145) 137 mmol/L (136-145) Potassium Level 4.5 mmol/L (3.5-5.1) 4.4 mmol/L (3.5-5.1) Chloride Level 102 mmol/L (98-107) 104 mmol/L (98-107) Carbon Dioxide Level 27 mmol/L (21-32) 21 mmol/L (21-32) Anion Gap 8 (6-14) 12 (6-14) Blood Urea Nitrogen 22 mg/dL (7-20) 21 mg/dL (7-20) Creatinine 0.6 mg/dL (0.6-1.0) 0.6 mg/dL (0.6-1.0) Estimated GFR (Cockcroft-Gault) 98.5 98.5 Glucose Level 203 mg/dL (70-99) 135 mg/dL (70-99) Calcium Level 7.3 mg/dL (8.5-10.1) 8.0 mg/dL (8.5-10.1) Magnesium Level 2.2 mg/dL (1.8-2.4) Laboratory Tests Test 04/17/17 17:47 04/17/17 18:25 04/17/17 20:24 04/17/17 23:25 Glucose (Fingerstick) 185 mg/dL (70-99) 203 mg/dL (70-99) 189 mg/dL (70-99) Sodium Level 137 mmol/L (136-145) Potassium Level 4.4 mmol/L (3.5-5.1) Chloride Level 102 mmol/L (98-107) Carbon Dioxide Level 26 mmol/L (21-32) Anion Gap 9 (6-14) Blood Urea Nitrogen 22 mg/dL (7-20) Creatinine 0.7 mg/dL (0.6-1.0) Estimated GFR (Cockcroft-Gault) 82.5 Glucose Level 201 mg/dL (70-99) Calcium Level 7.7 mg/dL (8.5-10.1) Phosphorus Level 3.4 mg/dL (2.6-4.7) Magnesium Level 2.1 mg/dL (1.8-2.4) Test 04/17/17 23:30 04/18/17 05:31 Sodium Level 137 mmol/L (136-145) 137 mmol/L (136-145) Potassium Level 4.5 mmol/L (3.5-5.1) 4.4 mmol/L (3.5-5.1) Chloride Level 102 mmol/L (98-107) 104 mmol/L (98-107) Carbon Dioxide Level 27 mmol/L (21-32) 21 mmol/L (21-32) Anion Gap 8 (6-14) 12 (6-14) Blood Urea Nitrogen 22 mg/dL (7-20) 21 mg/dL (7-20) Creatinine 0.6 mg/dL (0.6-1.0) 0.6 mg/dL (0.6-1.0) Estimated GFR (Cockcroft-Gault) 98.5 98.5 Glucose Level 203 mg/dL (70-99) 135 mg/dL (70-99) Calcium Level 7.3 mg/dL (8.5-10.1) 8.0 mg/dL (8.5-10.1) Magnesium Level 2.2 mg/dL (1.8-2.4) Microbiology 04/12/17 Blood Culture - Final, Complete NO GROWTH AFTER 5 DAYS 04/06/17 Fungal Culture - Preliminary, Resulted 04/06/17 Fungal Culture Result 1 - Preliminary, Resulted 03/09/17 Urine Culture - Final, Complete 03/09/17 Urine Culture Result 1 (KULDEEP) - Final, Complete 03/12/17 Fungal Culture - Final, Complete 03/12/17 Fungal Culture Result 1 - Final, Complete Medications Current Medications Ondansetron HCl (Zofran) 4 mg 1X ONCE IV Last administered on 03/09/17 08:30 ; Start 03/09/17 at 08:15; Stop 03/09/17 at 08:16; Status DC Iohexol (Omnipaque 300 Mg/ml) 75 ml 1X ONCE IV Last administered on 03/09/17 08:50; Start 03/09/17 at 08:45; Stop 03/09/17 at 08:46; Status DC Info (Do NOT chart on this entry -- for MONITORING) 1 each PRN DAILY PRN MC SEE COMMENTS; Start 03/09/17 at 08:45; Stop 03/11/17 at 08:44; Status DC Ceftriaxone Sodium 50 ml @ 100 mls/hr 1X ONCE IV ; Start 03/09/17 at 09:30; Stop 03/09/17 at 09:55; Status DC Sodium Chloride 1,000 ml @ 1,000 mls/hr 1X ONCE IV Last administered on 09:55; Start 03/09/17 at 10:00; Stop 03/09/17 at 10:59; Status DC Ondansetron HCl (Zofran) 4 mg PRN Q8HRS PRN IV NAUSEA/VOMITING; Start 03/09/17 at 10:30; Stop 03/10/17 at 10:29; Status DC Meropenem 500 mg/ Sodium Chloride 50 ml @ 100 mls/hr Q8HRS IV Last administered on 03/16/17 06:09; Start 03/09/17 at 13:00; Stop 03/16/17 at 12: 59; Status DC Acetaminophen (Tylenol) 650 mg PRN QID PRN PO MILD PAIN / TEMP Last administered on 04/17/17 08:45; Start 03/09/17 at 20:30 Aspirin (Children'S Aspirin) 81 mg DAILY PO Last administered on 04/18/17 09: 04; Start 03/10/17 at 15:00 Clopidogrel Bisulfate (Plavix) 75 mg DAILY PO Last administered on 03/19/17 10:00; Start 03/10/17 at 15:00; Stop 03/22/17 at 09:10; Status DC Ferrous Sulfate (Feosol) 325 mg DAILY PO Last administered on 04/18/17 09:05 ; Start 03/10/17 at 15:00 Metoprolol Tartrate (Lopressor) 12.5 mg BID PO Last administered on 03/10/17 16:01; Start 03/10/17 at 15:00; Stop 03/10/17 at 21:01; Status DC Diclofenac Sodium (Voltaren) 75 mg DAILY PO Last administered on 03/23/17 09: 23; Start 03/10/17 at 14:30; Stop 03/29/17 at 10:50; Status DC Famotidine (Pepcid) 20 mg QHS PO Last administered on 03/24/17 21:20; Start 03/10/17 at 21:00; Stop 03/26/17 at 09:35; Status DC Glimepiride (Amaryl) 1 mg DAILY PO Last administered on 03/13/17 09:25; Start 03/11/17 at 15:00; Stop 03/13/17 at 17:02; Status DC Sodium Chloride 1,000 ml @ 100 mls/hr 1X ONCE IV Last administered on 21:00; Start 03/10/17 at 21:00; Stop 03/11/17 at 06:59; Status DC Lidocaine/Sodium Bicarbonate (Buffered Lidocaine 1%) 20 ml STK-MED ONCE IJ ; Start 03/12/17 at 13:05; Stop 03/12/17 at 13:06; Status DC Fentanyl Citrate (Fentanyl 2ml Vial) 100 mcg STK-MED ONCE .ROUTE ; Start at 13:20; Stop 03/12/17 at 13:21; Status DC Midazolam HCl (Versed) 2 mg STK-MED ONCE .ROUTE ; Start 03/12/17 at 13:20; Stop 03/12/17 at 13:21; Status DC Flumazenil (Romazicon) 0.5 mg STK-MED ONCE IV ; Start 03/12/17 at 13:20; Stop 03/12/17 at 13:21; Status DC Naloxone HCl (Narcan) 0.4 mg STK-MED ONCE .ROUTE ; Start 03/12/17 at 13:20; Stop 03/12/17 at 13:21; Status DC Lidocaine/Sodium Bicarbonate (Buffered Lidocaine 1%) 20 ml 1X ONCE IJ Last administered on 03/12/17 13:50; Start 03/12/17 at 13:30; Stop 03/12/17 at 13:33 ; Status DC Midazolam HCl (Versed) 2 mg 1X ONCE IV Last administered on 03/12/17 13:50; Start 03/12/17 at 13:30; Stop 03/12/17 at 13:33; Status DC Fentanyl Citrate (Fentanyl 2ml Vial) 100 mcg 1X ONCE IV Last administered on 03/12/17 13:50; Start 03/12/17 at 13:30; Stop 03/12/17 at 13:33; Status DC Lactobacillus Rhamnosus (Culturelle) 1 cap BID PO Last administered on 21:20; Start 03/12/17 at 21:00; Stop 03/25/17 at 21:06; Status DC Acetaminophen/ Hydrocodone Bitart (Lortab 7.5/325) 1 tab PRN Q6HRS PRN PO MODERATE - SEVERE PAIN Last administered on 04/18/17 09:05; Start 03/12/17 at 18:15 Ondansetron HCl (Zofran) 4 mg PRN Q6HRS PRN IV NAUSEA/VOMITING, 1ST CHOICE Last administered on 04/17/17 03:45; Start 03/13/17 at 09:00 Furosemide (Lasix) 40 mg QODAY PO Last administered on 03/22/17 09:39; Start 03/14/17 at 09:00; Stop 03/26/17 at 09:00; Status DC Glimepiride (Amaryl) 1 mg DAILY08 PO Last administered on 03/22/17 09:40; Start 03/14/17 at 08:00; Stop 03/23/17 at 08:52; Status DC Linezolid (Zyvox) 600 mg BID PO Last administered on 03/24/17 21:20; Start 03/14/17 at 13:15; Stop 03/25/17 at 10:49; Status DC Meropenem (Merrem) 500 mg Q8HRS IVP Last administered on 03/30/17 06:04; Start 03/16/17 at 14:00; Stop 03/30/17 at 07:49; Status DC Iohexol (Omnipaque 240 Mg/ml) 50 ml STK-MED ONCE .ROUTE ; Start 03/19/17 at 13: 11; Stop 03/19/17 at 13:12; Status DC Iohexol (Omnipaque 240 Mg/ml) 10 ml 1X ONCE IJ Last administered on 14:07; Start 03/19/17 at 14:00; Stop 03/19/17 at 14:01; Status DC Info (Do NOT chart on this entry -- for MONITORING) 1 each PRN DAILY PRN MC SEE COMMENTS; Start 03/19/17 at 14:00; Stop 03/21/17 at 13:59; Status DC Iohexol (Omnipaque 240 Mg/ml) 50 ml STK-MED ONCE .ROUTE ; Start 03/19/17 at 13: 55; Stop 03/19/17 at 13:56; Status DC Fluconazole (Diflucan) 200 mg DAILY PO Last administered on 03/23/17 09:24; Start 03/22/17 at 09:30; Stop 03/25/17 at 10:51; Status DC Metoprolol Succinate (Toprol Xl) 12.5 mg DAILY PO Last administered on 08:04; Start 03/23/17 at 09:00 Glimepiride (Amaryl) 0.5 mg DAILY08 PO ; Start 03/24/17 at 08:00; Stop at 13:05; Status DC Morphine Sulfate 1 mg PRN Q10MIN PRN IV SEVERE PAIN; Start 03/26/17 at 07:00; Stop 03/26/17 at 07:00; Status DC Ringer's Solution 1,000 ml @ 30 mls/hr Q24H IV ; Start 03/26/17 at 07:00; Stop 03/26/17 at 07:00; Status DC Lidocaine HCl (Xylocaine-Mpf 1% Vial) 2 ml PRN 1X PRN ID PRIOR TO IV START; Start 03/26/17 at 07:00; Stop 03/26/17 at 07:00; Status DC Hydromorphone HCl (Dilaudid) 0.5 mg PRN Q10MIN PRN IV SEV PAIN, Second choice; Start 03/26/17 at 07:00; Stop 03/27/17 at 06:59; Status Cancel Prochlorperazine Edisylate (Compazine) 5 mg PACU PRN PRN IV NAUSEA, MRX1 Last administered on 03/25/17 07:45; Start 03/26/17 at 07:00; Stop 03/26/17 at 07 :00; Status DC Morphine Sulfate 1 mg PRN Q10MIN PRN IV SEVERE PAIN; Start 03/24/17 at 07:45; Stop 03/25/17 at 07:44; Status DC Ringer's Solution 1,000 ml @ 30 mls/hr Q24H IV Last administered on 14:15; Start 03/24/17 at 07:32; Stop 03/24/17 at 19:31; Status DC Lidocaine HCl (Xylocaine-Mpf 1% Vial) 2 ml 1X PRN PRN ID IV START; Start 03/24 at 07:45; Stop 03/25/17 at 07:44; Status DC Hydromorphone HCl (Dilaudid) 0.5 mg PRN Q10MIN PRN IV SEV PAIN, Second choice; Start 03/24/17 at 07:45; Stop 03/25/17 at 07:44; Status DC Prochlorperazine Edisylate (Compazine) 5 mg PACU PRN PRN IV NAUSEA, MRX1; Start 03/24/17 at 07:45; Stop 03/25/17 at 07:44; Status DC Bupivacaine HCl/ Epinephrine Bitart (Sensorcain-Mpf Epi 0.5%-[id number]) 30 ml STK -MED ONCE .ROUTE Last administered on 03/24/17t 15:56; Start 03/24/17 at 10: 28; Stop 03/24/17 at 10:29; Status DC Neostigmine Methylsulfate (Bloxiverz) 10 mg STK-MED ONCE .ROUTE ; Start at 14:38; Stop 03/24/17 at 14:39; Status DC Rocuronium [place] (Zemuron) 50 mg STK-MED ONCE .ROUTE ; Start 03/24/17 at 14: 38; Stop 03/24/17 at 14:39; Status DC Fentanyl Citrate (Fentanyl 2ml Vial) 100 mcg STK-MED ONCE .ROUTE ; Start at 14:38; Stop 03/24/17 at 14:39; Status DC Phenylephrine HCl 1 mg STK-MED ONCE IV ; Start 03/24/17 at 14:40; Stop at 14:41; Status DC Lidocaine HCl (Lidocaine Pf 2% Vial) 5 ml STK-MED ONCE .ROUTE ; Start 03/24/17 at 14:40; Stop 03/24/17 at 14:41; Status DC Dexamethasone Sodium Phosphate (Decadron) 20 mg STK-MED ONCE .ROUTE ; Start at 14:40; Stop 03/24/17 at 14:41; Status DC Ondansetron HCl (Zofran) 4 mg STK-MED ONCE .ROUTE ; Start 03/24/17 at 14:40; Stop 03/24/17 at 14:41; Status DC Propofol 20 ml @ As Directed STK-MED ONCE IV ; Start 03/24/17 at 14:40; Stop 03/24/17 at 14:41; Status DC Glycopyrrolate (Robinul) 1 mg STK-MED ONCE .ROUTE ; Start 03/24/17 at 15:11; Stop 03/24/17 at 15:12; Status DC Rocuronium [place] (Zemuron) 50 mg STK-MED ONCE .ROUTE ; Start 03/24/17 at 15: 53; Stop 03/24/17 at 15:54; Status DC Fentanyl Citrate (Fentanyl 2ml Vial) 100 mcg STK-MED ONCE .ROUTE ; Start at 16:01; Stop 03/24/17 at 16:02; Status DC Morphine Sulfate 10 mg STK-MED ONCE .ROUTE ; Start 03/24/17 at 16:02; Stop at 16:03; Status DC Albumin Human 500 ml @ As Directed STK-MED ONCE IV ; Start 03/24/17 at 17:03; Stop 03/24/17 at 17:04; Status DC Phenylephrine HCl (Corky-Synephrine Inj) 10 mg STK-MED ONCE .ROUTE ; Start at 17:27; Stop 03/24/17 at 17:28; Status DC Rocuronium [place] (Zemuron) 100 mg STK-MED ONCE .ROUTE ; Start 03/24/17 at 17: 57; Stop 03/24/17 at 17:58; Status DC Enoxaparin Sodium (Lovenox 40mg Syringe) 40 mg Q24H SQ Last administered on 20:51; Start 03/24/17 at 20:45; Stop 03/26/17 at 19:34; Status DC Sodium Chloride (Normal Saline Flush) 3 ml QSHIFT PRN IV AFTER MEDS AND BLOOD DRAWS; Start 03/24/17 at 20:45 Ringer's Solution 1,000 ml @ 100 mls/hr Q10H IV Last administered on 12:32; Start 03/24/17 at 20:43; Stop 03/25/17 at 16:52; Status DC Naloxone HCl (Narcan) 0.4 mg PRN Q2MIN PRN IV SEE INSTRUCTIONS; Start at 20:45 Sodium Chloride 1,000 ml @ 25 mls/hr Q24H IV Last administered on 03/27/17 12:08; Start 03/24/17 at 20:43; Stop 04/15/17 at 10:40; Status DC Hydromorphone HCl 30 ml @ 0 mls/hr CONT PRN PRN IV PROTOCOL Last administered on 03/24/17 23:16; Start 03/24/17 at 20:45 Prochlorperazine Edisylate (Compazine) 5 mg PRN Q4HRS PRN IV NAUSEA/VOMITING, 2ND CHOICE; Start 03/25/17 at 07:45 Pantoprazole Sodium (PROTONIX VIAL for IV PUSH) 40 mg DAILYAC IVP Last administered on 04/18/17 09:04; Start 03/25/17 at 10:15 Linezolid 300 ml @ 300 mls/hr Q12HR IV Last administered on 03/26/17 20:54; Start 03/25/17 at 11:00; Stop 03/27/17 at 08:05; Status DC Fluconazole/ Sodium Chloride 100 ml @ 100 mls/hr Q24H IV Last administered on 04/07/17 11:52; Start 03/25/17 at 11:00; Stop 04/07/17 at 13:39; Status DC Dextrose/Lactated Ringer's 1,000 ml @ 75 mls/hr [id number] IV Last administered on 04/03/17 08:54; Start 03/25/17 at 17:00; Stop 04/04/17 at 09:23; Status DC Famotidine (Pepcid Vial) 40 mg QHS IVP Last administered on 03/28/17 21:35; Start 03/25/17 at 21:00; Stop 03/29/17 at 08:02; Status DC Lorazepam (Ativan) 0.5 mg 1X ONCE IV ; Start 03/26/17 at 07:00; Stop at 07:01; Status Cancel Lorazepam (Ativan) 0.5 mg PRN Q8HRS PRN PO ANXIETY / AGITATION; Start at 07:00; Status Cancel Furosemide (Lasix) 40 mg 1X ONCE IVP Last administered on 03/26/17 09:54; Start 03/26/17 at 09:00; Stop 03/26/17 at 09:01; Status DC Furosemide (Lasix) 20 mg DAILY IVP Last administered on 03/30/17 09:29; Start 03/27/17 at 09:00; Stop 03/31/17 at 12:22; Status DC Digoxin (Lanoxin) 250 mcg 1X ONCE IV Last administered on 03/26/17 15:06; Start 03/26/17 at 15:15; Stop 03/26/17 at 15:16; Status DC Iohexol (Omnipaque 300 Mg/ml) 75 ml 1X ONCE IV Last administered on 16:41; Start 03/26/17 at 16:45; Stop 03/26/17 at 16:46; Status DC Info (Do NOT chart on this entry -- for MONITORING) 1 each PRN DAILY PRN MC SEE COMMENTS; Start 03/26/17 at 16:45; Stop 03/28/17 at 16:44; Status DC Norepinephrine Bitartrate 250 ml @ As Directed STK-MED ONCE IV ; Start at 17:42; Stop 03/26/17 at 17:43; Status DC Norepinephrine Bitartrate 250 ml @ 0 mls/hr CONT PRN IV SEE I/O RECORD Last administered on 03/26/17 18:01; Start 03/26/17 at 18:00; Stop 04/04/17 at 09 :57; Status DC Enoxaparin Sodium (Lovenox Per Pharmacy Treatment Dosing) 1 each PRN DAILY PRN MC SEE COMMENTS; Start 03/26/17 at 19:30; Stop 03/28/17 at 12:38; Status DC Enoxaparin Sodium (Lovenox 80mg Syringe) 80 mg Q12HR SQ Last administered on 21:51; Start 03/26/17 at 20:00; Stop 03/28/17 at 15:36; Status DC Daptomycin 460 mg/ Sodium Chloride 50 ml @ 100 mls/hr Q24H IV Last administered on 04/11/17 09:41; Start 03/27/17 at 09:00; Stop 04/12/17 at 07: 49; Status DC Digoxin (Lanoxin) 250 mcg 1X ONCE IV Last administered on 03/27/17 12:09; Start 03/27/17 at 12:00; Stop 03/27/17 at 12:01; Status DC Insulin Detemir (Levemir) 5 units QHS SQ Last administered on 04/04/17 21:30 ; Start 03/27/17 at 21:00; Stop 04/05/17 at 09:34; Status DC Albumin Human 100 ml @ 100 mls/hr Q8H IV Last administered on 03/29/17 00:42 ; Start 03/28/17 at 09:00; Stop 03/29/17 at 01:59; Status DC Lorazepam (Ativan) 1 mg PRN Q6HRS PRN PO ANXIETY / AGITATION Last administered on 04/07/17 05:43; Start 03/28/17 at 16:00; Stop 04/07/17 at 16:34; Status DC Iohexol (Omnipaque 300 Mg/ml) 75 ml 1X ONCE IV Last administered on 16:00; Start 03/28/17 at 16:00; Stop 03/28/17 at 16:02; Status DC Info (Do NOT chart on this entry -- for MONITORING) 1 each PRN DAILY PRN MC SEE COMMENTS; Start 03/28/17 at 16:15; Stop 03/30/17 at 16:14; Status DC Fentanyl Citrate (Fentanyl 2ml Vial) 50 mcg PRN Q4HRS PRN IV PAIN Last administered on 04/17/17 23:17; Start 03/29/17 at 09:45 Ciprofloxacin/ Dextrose 200 ml @ 200 mls/hr Q12HR IV Last administered on 08:58; Start 03/30/17 at 09:00; Stop 04/04/17 at 10:45; Status DC Lorazepam (Ativan) 0.5 mg Q12HR PO Last administered on 04/12/17 22:14; Start 03/30/17 at 21:00; Stop 04/13/17 at 09:16; Status DC Dopamine HCl/ Dextrose 250 ml @ 15.155 mls/ hr CONT PRN IV SEE I/O RECORD Last administered on 04/06/17 15:44; Start 03/31/17 at 13:00 Info 1 each PRN DAILY PRN MC SEE COMMENTS Last administered on 04/17/17 14:03 ; Start 04/03/17 at 12:15 Sodium Chloride 90 meq/Potassium Chloride 50 meq/ Potassium Phosphate 20.4 mmol/ Magnesium Sulfate 10 meq/ Calcium Gluconate 10 meq/ Multivitamins 10 ml/Chromium / Copper/Manganese/ Seleni/Zn 1 ml/ Total Parenteral Nutrition/Amino Acids/ Dextrose/ Fat Emulsion Intravenous 1,512 ml @ 63 mls/hr TPN CONT IV Last administered on 04/03/17 21:38; Start 04/03/17 at 22:00; Stop 04/04/17 at 21 :59; Status DC Levofloxacin/ Dextrose 100 ml @ 100 mls/hr Q24H IV Last administered on 21:47; Start 04/04/17 at 21:00; Stop 04/07/17 at 13:39; Status DC Furosemide (Lasix) 40 mg DAILY IVP Last administered on 04/17/17 08:44; Start 04/04/17 at 12:00 Sodium Chloride 90 meq/Potassium Chloride 50 meq/ Potassium Phosphate 20.4 mmol/ Magnesium Sulfate 16 meq/ Calcium Gluconate 10 meq/ Multivitamins 10 ml/Chromium / Copper/Manganese/ Seleni/Zn 1 ml/ Total Parenteral Nutrition/Amino Acids/ Dextrose/ Fat Emulsion Intravenous 1,512 ml @ 63 mls/hr TPN CONT IV Last administered on 04/04/17 21:16; Start 04/04/17 at 22:00; Stop 04/05/17 at 21 :59; Status DC Insulin Detemir (Levemir) 20 units QHS SQ Last administered on 04/10/17 21:39 ; Start 04/05/17 at 21:00; Stop 04/11/17 at 08:11; Status DC Insulin Detemir (Levemir) 10 units 1X ONCE SQ Last administered on 04/05/17 14:12; Start 04/05/17 at 09:45; Stop 04/05/17 at 09:46; Status DC Sodium Chloride 90 meq/Potassium Chloride 50 meq/ Potassium Phosphate 20.4 mmol/ Magnesium Sulfate 24 meq/ Calcium Gluconate 10 meq/ Multivitamins 10 ml/Chromium / Copper/Manganese/ Seleni/Zn 1 ml/ Total Parenteral Nutrition/Amino Acids/ Dextrose/ Fat Emulsion Intravenous 1,512 ml @ 63 mls/hr TPN CONT IV Last administered on 04/05/17 20:55; Start 04/05/17 at 22:00; Stop 04/06/17 at 21: 59; Status DC Iohexol (Omnipaque 300 Mg/ml) 75 ml 1X ONCE IV ; Start 04/05/17 at 13:00; Stop 04/05/17 at 13:01; Status DC Iohexol (Omnipaque 240 Mg/ml) 30 ml 1X ONCE PO ; Start 04/05/17 at 13:00; Stop 04/05/17 at 13:01; Status DC Info (Do NOT chart on this entry -- for MONITORING) 1 each PRN DAILY PRN MC SEE COMMENTS; Start 04/05/17 at 13:00; Stop 04/07/17 at 12:59; Status DC Sodium Chloride 90 meq/Potassium Chloride 50 meq/ Potassium Phosphate 20.4 mmol/ Magnesium Sulfate 24 meq/ Calcium Gluconate 10 meq/ Multivitamins 10 ml/Chromium / Copper/Manganese/ Seleni/Zn 1 ml/ Total Parenteral Nutrition/Amino Acids/ Dextrose/ Fat Emulsion Intravenous 1,512 ml @ 63 mls/hr TPN CONT IV Last administered on 04/06/17 21:45; Start 04/06/17 at 22:00; Stop 04/07/17 at 21:59 ; Status DC Lidocaine/Sodium Bicarbonate (Buffered Lidocaine 1%) 20 ml STK-MED ONCE IJ ; Start 04/06/17 at 14:28; Stop 04/06/17 at 14:29; Status DC Fentanyl Citrate (Fentanyl 2ml Vial) 100 mcg STK-MED ONCE .ROUTE ; Start at 14:45; Stop 04/06/17 at 14:46; Status DC Midazolam HCl (Versed) 2 mg STK-MED ONCE .ROUTE ; Start 04/06/17 at 14:45; Stop 04/06/17 at 14:46; Status DC Flumazenil (Romazicon) 0.5 mg STK-MED ONCE IV ; Start 04/06/17 at 14:45; Stop 04/06/17 at 14:46; Status DC Naloxone HCl (Narcan) 0.4 mg STK-MED ONCE .ROUTE ; Start 04/06/17 at 14:45; Stop 04/06/17 at 14:46; Status DC Dopamine HCl/ Dextrose 250 ml @ As Directed STK-MED ONCE IV ; Start 04/06/17 at 14:50; Stop 04/06/17 at 14:51; Status DC Lidocaine/Sodium Bicarbonate (Buffered Lidocaine 1%) 7 ml 1X ONCE IJ Last administered on 04/06/17 15:20; Start 04/06/17 at 15:30; Stop 04/06/17 at 15:31 ; Status DC Sodium Chloride 90 meq/Potassium Chloride 50 meq/ Potassium Phosphate 13.6 mmol/ Magnesium Sulfate 20 meq/ Calcium Gluconate 10 meq/ Multivitamins 10 ml/Chromium / Copper/Manganese/ Seleni/Zn 1 ml/ Total Parenteral Nutrition/Amino Acids/ Dextrose/ Fat Emulsion Intravenous 1,512 ml @ 63 mls/hr TPN CONT IV Last administered on 04/07/17 21:19; Start 04/07/17 at 22:00; Stop 04/08/17 at 21:59 ; Status DC Micafungin Sodium 100 mg/Sodium Chloride 100 ml @ 100 mls/hr Q24H IV Last administered on 04/16/17 13:09; Start 04/07/17 at 14:00; Stop 04/17/17 at 07: 48; Status DC Metronidazole 100 ml @ 100 mls/hr Q8HRS IV Last administered on 04/18/17 05: 19; Start 04/07/17 at 14:00 Cefepime HCl 1 gm/ Dextrose 50 ml @ 100 mls/hr Q8HRS IV ; Start 04/07/17 at 14: 00; Status UNV Cefepime HCl (Maxipime) 1 gm Q8HRS IVP Last administered on 04/18/17 05:19; Start 04/07/17 at 14:00 Sodium Chloride 90 meq/Potassium Chloride 50 meq/ Potassium Phosphate 13.6 mmol/ Magnesium Sulfate 20 meq/ Calcium Gluconate 10 meq/ Multivitamins 10 ml/Chromium / Copper/Manganese/ Seleni/Zn 1 ml/ Total Parenteral Nutrition/Amino Acids/ Dextrose/ Fat Emulsion Intravenous 1,512 ml @ 63 mls/hr TPN CONT IV Last administered on 04/08/17 21:23; Start 04/08/17 at 22:00; Stop 04/09/17 at 21:59 ; Status DC Furosemide (Lasix) 40 mg 1X ONCE IVP Last administered on 04/09/17 10:03; Start 04/09/17 at 08:15; Stop 04/09/17 at 08:16; Status DC Sodium Chloride 90 meq/Potassium Chloride 50 meq/ Potassium Phosphate 13.6 mmol/ Magnesium Sulfate 20 meq/ Calcium Gluconate 10 meq/ Multivitamins 10 ml/Chromium / Copper/Manganese/ Seleni/Zn 1 ml/ Total Parenteral Nutrition/Amino Acids/ Dextrose/ Fat Emulsion Intravenous 1,512 ml @ 63 mls/hr TPN CONT IV Last administered on 04/09/17 21:52; Start 04/09/17 at 22:00; Stop 04/10/17 at 21:59 ; Status DC Sodium Chloride 90 meq/Potassium Chloride 60 meq/ Potassium Phosphate 13.6 mmol/ Magnesium Sulfate 20 meq/ Calcium Gluconate 10 meq/ Multivitamins 10 ml/Chromium / Copper/Manganese/ Seleni/Zn 1 ml/ Total Parenteral Nutrition/Amino Acids/ Dextrose/ Fat Emulsion Intravenous 1,512 ml @ 63 mls/hr TPN CONT IV Last administered on 04/10/17 21:37; Start 04/10/17 at 22:00; Stop 04/11/17 at 21:59 ; Status DC Insulin Detemir (Levemir) 22 units QHS SQ Last administered on 04/11/17 22:08 ; Start 04/11/17 at 21:00; Stop 04/12/17 at 12:21; Status DC Enoxaparin Sodium (Lovenox 40mg Syringe) 40 mg Q24H SQ Last administered on 09:05; Start 04/11/17 at 09:00 Sodium Chloride 90 meq/Potassium Chloride 60 meq/ Potassium Phosphate 13.6 mmol/ Magnesium Sulfate 20 meq/ Calcium Gluconate 10 meq/ Multivitamins 10 ml/Chromium / Copper/Manganese/ Seleni/Zn 1 ml/ Total Parenteral Nutrition/Amino Acids/ Dextrose/ Fat Emulsion Intravenous 1,512 ml @ 63 mls/hr TPN CONT IV Last administered on 04/11/17 21:59; Start 04/11/17 at 22:00; Stop 04/12/17 at 21:59 ; Status DC Norepinephrine Bitartrate 250 ml @ As Directed STK-MED ONCE IV ; Start at 15:51; Stop 04/11/17 at 15:52; Status DC Norepinephrine Bitartrate 250 ml @ 0 mls/hr CONT PRN IV SEE I/O RECORD Last administered on 04/18/17 01:37; Start 04/11/17 at 22:30 Linezolid 300 ml @ 300 mls/hr Q12HR IV Last administered on 04/17/17 22:55; Start 04/12/17 at 09:00 Norepinephrine Bitartrate (Levophed 8mg/ 250ml Premix Drip) 8 mg STK-MED ONCE IV ; Start 04/11/17 at 16:00; Stop 04/12/17 at 09:06; Status DC Insulin Detemir (Levemir) 24 units QHS SQ Last administered on 04/12/17 22:16 ; Start 04/12/17 at 21:00; Stop 04/13/17 at 08:24; Status DC Sodium Chloride 90 meq/Potassium Chloride 60 meq/ Potassium Phosphate 13.6 mmol/ Magnesium Sulfate 20 meq/ Calcium Gluconate 10 meq/ Multivitamins 10 ml/Chromium / Copper/Manganese/ Seleni/Zn 1 ml/ Total Parenteral Nutrition/Amino Acids/ Dextrose/ Fat Emulsion Intravenous 1,512 ml @ 63 mls/hr TPN CONT IV Last administered on 04/12/17 22:15; Start 04/12/17 at 22:00; Stop 04/13/17 at 21:59 ; Status DC Insulin Detemir (Levemir) 26 units QHS SQ Last administered on 04/13/17 21:56 ; Start 04/13/17 at 21:00; Stop 04/14/17 at 21:44; Status DC Lorazepam (Ativan) 0.5 mg PRN Q8HRS PRN PO ANXIETY / AGITATION Last administered on 04/18/17 05:19; Start 04/14/17 at 09:00 Sodium Chloride 90 meq/Potassium Chloride 60 meq/ Potassium Phosphate 13.6 mmol/ Magnesium Sulfate 15 meq/ Calcium Gluconate 8 meq/ Multivitamins 10 ml/Chromium / Copper/Manganese/ Seleni/Zn 1 ml/ Total Parenteral Nutrition/Amino Acids/ Dextrose/ Fat Emulsion Intravenous 1,512 ml @ 63 mls/hr TPN CONT IV Last administered on 04/13/17 21:45; Start 04/13/17 at 22:00; Stop 04/14/17 at 21:59 ; Status DC Sodium Chloride 90 meq/Potassium Chloride 60 meq/ Potassium Phosphate 13.6 mmol/ Magnesium Sulfate 10 meq/ Calcium Gluconate 8 meq/ Multivitamins 10 ml/Chromium / Copper/Manganese/ Seleni/Zn 1 ml/ Total Parenteral Nutrition/Amino Acids/ Dextrose/ Fat Emulsion Intravenous 1,512 ml @ 63 mls/hr TPN CONT IV ; Start 04/14/17 at 22:00; Stop 04/14/17 at 22:00; Status DC Sodium Chloride 90 meq/Potassium Chloride 60 meq/ Potassium Phosphate 13.6 mmol/ Magnesium Sulfate 15 meq/ Calcium Gluconate 8 meq/ Multivitamins 10 ml/Chromium / Copper/Manganese/ Seleni/Zn 1 ml/ Total Parenteral Nutrition/Amino Acids/ Dextrose/ Fat Emulsion Intravenous 1,512 ml @ 63 mls/hr TPN CONT IV Last administered on 04/14/17 21:27; Start 04/14/17 at 22:00; Stop 04/15/17 at 21: 59; Status DC Insulin Detemir (Levemir) 30 units QHS SQ Last administered on 04/17/17 20:24 ; Start 04/14/17 at 22:00 Sodium Chloride 90 meq/Potassium Chloride 60 meq/ Potassium Phosphate 13.6 mmol/ Magnesium Sulfate 15 meq/ Calcium Gluconate 8 meq/ Multivitamins 10 ml/Chromium / Copper/Manganese/ Seleni/Zn 1 ml/ Total Parenteral Nutrition/Amino Acids/ Dextrose/ Fat Emulsion Intravenous 1,512 ml @ 63 mls/hr TPN CONT IV Last administered on 04/15/17 21:52; Start 04/15/17 at 22:00; Stop 04/16/17 at 21 :59; Status DC Insulin Aspart (NovoLOG) 0-9 UNITS Q6HRS SQ Last administered on 04/17/17 00: 20; Start 04/15/17 at 18:00 Dextrose (Dextrose 50%-Water Syringe) 12.5 gm PRN Q15MIN PRN IV SEE COMMENTS; Start 04/15/17 at 15:30 Alteplase, Recombinant (Cathflo) 2 mg 1X ONCE INT CAT Last administered on 09:29; Start 04/16/17 at 09:00; Stop 04/16/17 at 09:01; Status DC Bupropion HCl (Wellbutrin Xl) 150 mg DAILY PO Last administered on 04/18/17 09:04; Start 04/16/17 at 10:00 Alteplase, Recombinant (Cathflo) 2 mg 1X ONCE INT CAT Last administered on 10:17; Start 04/16/17 at 10:15; Stop 04/16/17 at 10:16; Status DC Alteplase, Recombinant (Cathflo) 2 mg 1X ONCE INT CAT Last administered on 11:26; Start 04/16/17 at 11:15; Stop 04/16/17 at 11:16; Status DC Alteplase, Recombinant (Cathflo) 2 mg 1X ONCE INT CAT Last administered on 11:25; Start 04/16/17 at 11:15; Stop 04/16/17 at 11:16; Status DC Multivitamins (Thera M Plus) 1 tab DAILY PO Last administered on 04/18/17 09: 04; Start 04/16/17 at 13:00 Ascorbic Acid (Vitamin C) 500 mg DAILY PO Last administered on 04/18/17 09:04 ; Start 04/16/17 at 13:00 Sodium Chloride 110 meq/Potassium Chloride 60 meq/ Potassium Phosphate 15 mmol/ Magnesium Sulfate 15 meq/Calcium Gluconate 8 meq/ Multivitamins 10 ml/Chromium/ Copper/Manganese/ Seleni/Zn 1 ml/ Insulin Human Regular 15 unit/ Total Parenteral Nutrition/Amino Acids/Dextrose/ Fat Emulsion Intravenous 1,512 ml @ 63 mls/hr TPN CONT IV ; Start 04/16/17 at 22:00; Stop 04/16/17 at 22:00; Status DC Sodium Chloride 110 meq/Potassium Chloride 60 meq/ Potassium Phosphate 15 mmol/ Magnesium Sulfate 15 meq/Calcium Gluconate 8 meq/ Multivitamins 10 ml/Chromium/ Copper/Manganese/ Seleni/Zn 1 ml/ Insulin Human Regular 10 unit/ Total Parenteral Nutrition/Amino Acids/Dextrose/ Fat Emulsion Intravenous 1,512 ml @ 63 mls/hr TPN CONT IV Last administered on 04/16/17 21:27; Start 04/16/17 at 22:00; Stop 04/17/17 at 21:59; Status DC Sodium Chloride 110 meq/Potassium Chloride 60 meq/ Potassium Phosphate 15 mmol/ Magnesium Sulfate 15 meq/Calcium Gluconate 8 meq/ Multivitamins 10 ml/Chromium/ Copper/Manganese/ Seleni/Zn 1 ml/ Insulin Human Regular 10 unit/ Total Parenteral Nutrition/Amino Acids/Dextrose/ Fat Emulsion Intravenous 1,512 ml @ 63 mls/hr TPN CONT IV Last administered on 04/17/17 22:00; Start 04/17/17 at 22:00; Stop 04/18/17 at 21:59 Albumin Human 50 ml @ 50 mls/hr 1X ONCE IV Last administered on 04/17/17t 19: 44; Start 04/17/17 at 19:30; Stop 04/17/17 at 20:29; Status DC Albumin Human 50 ml @ 50 mls/hr 1X ONCE IV Last administered on 04/18/17t 00: 15; Start 04/17/17 at 21:30; Stop 04/17/17 at 22:29; Status DC Active Scripts Active Reported Flagyl (Metronidazole) 500 Mg Tablet 1 Tab PO BID Cefpodoxime Proxetil 200 Mg Tablet 1 Tab PO BID Ferrous Sulfate 325 Mg Tablet 1 Tab PO DAILY Lasix (Furosemide) 40 Mg Tablet 40 Mg PO QODAY Potassium Chloride 10 Meq Capsule.er 10 Meq PO QODAY Metoprolol Tartrate 25 Mg Tablet 12.5 Mg PO BID Atorvastatin Calcium 40 Mg Tablet 40 Mg PO HS Clopidogrel (Clopidogrel Bisulfate) 75 Mg Tablet 1 Tab PO DAILY Diclofenac Sodium 75 Mg Tablet.dr 75 Mg PO DAILY Ranitidine Hcl 150 Mg Tablet 1 Tab PO BID Aspirin 81 Mg Tab.chew 1 Tab PO DAILY Vitals/I & O Vital Sign - Last 24 Hours 04/17/17 04/17/17 04/17/17 04/17/17 10:00 11:00 12:00 12:00 Pulse 118 99 Resp 24 30 B/P (MAP) 91/52 (65) 93/53 (66) Pulse Ox 99 97 O2 Delivery Nasal Cannula Nasal Cannula Nasal Cannula O2 Flow Rate 4.0 4.0 4.0 4.0 04/17/17 04/17/17 04/17/17 04/17/17 12:00 13:00 14:00 14:06 Temp 98.5 98.5 Pulse 102 103 120 Resp 30 27 25 28 B/P (MAP) 98/47 (64) 103/47 (65) 107/51 (69) Pulse Ox 98 99 95 100 O2 Delivery Nasal Cannula Nasal Cannula Nasal Cannula Nasal Cannula O2 Flow Rate 4.0 4.0 4.0 4.0 04/17/17 04/17/17 04/17/17 04/17/17 15:00 15:05 16:00 16:00 Pulse 118 114 Resp 12 22 20 B/P (MAP) 101/52 (68) 92/48 (63) Pulse Ox 96 98 O2 Delivery Nasal Cannula Nasal Cannula O2 Flow Rate 4.0 4.0 4.0 04/17/17 04/17/17 04/17/17 04/17/17 16:00 17:00 17:15 17:46 Pulse 116 110 Resp 18 28 22 B/P (MAP) 91/69 (76) 90/47 (61) Pulse Ox 99 98 98 O2 Delivery Nasal Cannula Nasal Cannula Nasal Cannula Nasal Cannula O2 Flow Rate 4.0 4.0 4.0 4.0 04/17/17 04/17/17 04/17/17 04/17/17 18:15 19:00 20:00 20:00 Temp 98.0 98.0 Pulse 110 118 Resp 25 34 32 B/P (MAP) 66/35 (45) 76/49 (58) Pulse Ox 98 98 O2 Delivery Nasal Cannula Nasal Cannula Nasal Cannula O2 Flow Rate 4.0 4.0 4.0 04/17/17 04/17/17 04/17/17 04/17/17 20:00 20:19 21:00 22:00 Pulse 116 120 Resp 29 29 B/P (MAP) 89/51 (64) 84/35 (51) Pulse Ox 98 99 99 O2 Delivery Nasal Cannula Nasal Cannula Nasal Cannula O2 Flow Rate 4.0 4.0 4.0 4.0 04/17/17 04/17/17 04/17/17 04/17/17 22:15 23:00 23:17 23:45 Pulse 114 126 118 Resp 31 30 25 B/P (MAP) 93/50 (64) 106/58 (74) 98/36 (56) Pulse Ox 99 99 99 99 O2 Delivery Nasal Cannula Nasal Cannula Nasal Cannula Nasal Cannula O2 Flow Rate 4.0 4.0 4.0 4.0 04/17/17 04/18/17 04/18/17 04/18/17 23:47 00:00 00:00 00:43 Temp 98.4 98.4 Pulse 124 Resp 30 B/P (MAP) 95/44 (61) Pulse Ox 99 99 O2 Delivery Nasal Cannula Nasal Cannula Nasal Cannula O2 Flow Rate 4.0 4.0 4.0 4.0 04/18/17 04/18/17 04/18/17 04/18/17 01:00 02:00 02:56 03:00 Pulse 121 122 126 Resp 24 24 18 B/P (MAP) 99/47 (64) 83/60 (68) 135/93 (107) Pulse Ox 99 99 99 98 O2 Delivery Nasal Cannula Nasal Cannula Nasal Cannula Nasal Cannula O2 Flow Rate 4.0 4.0 4.0 4.0 04/18/17 04/18/17 04/18/17 04/18/17 03:56 04:00 04:00 04:00 Temp 98.6 98.6 Pulse 122 Resp 25 B/P (MAP) 109/47 (67) Pulse Ox 98 98 O2 Delivery Nasal Cannula Nasal Cannula Nasal Cannula O2 Flow Rate 4.0 4.0 4.0 4.0 04/18/17 04/18/17 04/18/17 04/18/17 05:00 06:00 07:00 08:00 Temp 97.3 97.3 Pulse 140 126 124 124 Resp 40 32 35 31 B/P (MAP) 153/72 (99) 105/59 (74) 124/70 (88) 122/65 (84) Pulse Ox 98 98 99 97 O2 Delivery Nasal Cannula Nasal Cannula Nasal Cannula Nasal Cannula O2 Flow Rate 4.0 4.0 4.0 4.0 04/18/17 04/18/17 04/18/17 04/18/17 08:00 08:00 09:00 09:05 Pulse 114 Resp 28 28 B/P (MAP) 118/47 (70) Pulse Ox 96 97 O2 Delivery Nasal Cannula Nasal Cannula Nasal Cannula O2 Flow Rate 4.0 4.0 4.0 4.0 Intake and Output 04/17/17 04/17/17 04/18/17 15:00 23:00 07:00 Intake Total 950 ml 1125 ml 1337 ml Output Total 1045 ml 647 ml 475 ml Balance -95 ml 478 ml 862 ml DANNY MEZA MD Apr 18, 2017 09:37
--- NOTE | 2017-04-18 10:26 | PDOC ---
PULMONARY PROGRESS NOTES Subjective feels comfortable on canula on low dose levo Vitals Vital Signs Date Time Temp Pulse Resp B/P (MAP) Pulse Ox O2 Delivery O2 Flow Rate FiO2 04/18/17 10:05 25 100 Nasal Cannula 4.0 04/18/17 10:00 118 111/53 (72) 04/18/17 08:00 97.3 97.3 ROS: No Nausea, No Chest Pain, No Abdominal Pain, No Increase Cough General: Alert, No acute distress Lungs: Clear Cardiovascular: S1, S2 Abdomen: Soft, Other (colostomy/ drains in place) Neuro Exam: Alert Extremities: Other (1+edema) Skin: Warm Labs Laboratory Tests Test 04/16/17 11:00 04/16/17 17:34 04/16/17 21:09 04/17/17 00:13 Sodium Level 135 mmol/L (136-145) Potassium Level 4.5 mmol/L (3.5-5.1) Chloride Level 102 mmol/L (98-107) Carbon Dioxide Level 28 mmol/L (21-32) Anion Gap 5 (6-14) Blood Urea Nitrogen 18 mg/dL (7-20) Creatinine 0.6 mg/dL (0.6-1.0) Estimated GFR (Cockcroft-Gault) 98.5 BUN/Creatinine Ratio 30 (6-20) Glucose Level 219 mg/dL (70-99) Calcium Level 7.5 mg/dL (8.5-10.1) Phosphorus Level 2.7 mg/dL (2.6-4.7) Magnesium Level 2.1 mg/dL (1.8-2.4) Total Bilirubin 0.2 mg/dL (0.2-1.0) Aspartate Amino Transf (AST/SGOT) 17 U/L (15-37) Alanine Aminotransferase (ALT/SGPT) 6 U/L (14-59) Alkaline Phosphatase 67 U/L (46-116) Total Protein 5.2 g/dL (6.4-8.2) Albumin 0.9 g/dL (3.4-5.0) Albumin/Globulin Ratio 0.2 (1.0-1.7) Glucose (Fingerstick) 265 mg/dL (70-99) 183 mg/dL (70-99) 194 mg/dL (70-99) Test 04/17/17 06:21 04/17/17 17:47 04/17/17 18:25 04/17/17 20:24 Glucose (Fingerstick) 124 mg/dL (70-99) 185 mg/dL (70-99) 203 mg/dL (70-99) Sodium Level 137 mmol/L (136-145) Potassium Level 4.4 mmol/L (3.5-5.1) Chloride Level 102 mmol/L (98-107) Carbon Dioxide Level 26 mmol/L (21-32) Anion Gap 9 (6-14) Blood Urea Nitrogen 22 mg/dL (7-20) Creatinine 0.7 mg/dL (0.6-1.0) Estimated GFR (Cockcroft-Gault) 82.5 Glucose Level 201 mg/dL (70-99) Calcium Level 7.7 mg/dL (8.5-10.1) Phosphorus Level 3.4 mg/dL (2.6-4.7) Magnesium Level 2.1 mg/dL (1.8-2.4) Test 04/17/17 23:25 04/17/17 23:30 04/18/17 05:31 Glucose (Fingerstick) 189 mg/dL (70-99) Sodium Level 137 mmol/L (136-145) 137 mmol/L (136-145) Potassium Level 4.5 mmol/L (3.5-5.1) 4.4 mmol/L (3.5-5.1) Chloride Level 102 mmol/L (98-107) 104 mmol/L (98-107) Carbon Dioxide Level 27 mmol/L (21-32) 21 mmol/L (21-32) Anion Gap 8 (6-14) 12 (6-14) Blood Urea Nitrogen 22 mg/dL (7-20) 21 mg/dL (7-20) Creatinine 0.6 mg/dL (0.6-1.0) 0.6 mg/dL (0.6-1.0) Estimated GFR (Cockcroft-Gault) 98.5 98.5 Glucose Level 203 mg/dL (70-99) 135 mg/dL (70-99) Calcium Level 7.3 mg/dL (8.5-10.1) 8.0 mg/dL (8.5-10.1) Magnesium Level 2.2 mg/dL (1.8-2.4) Laboratory Tests Test 04/17/17 17:47 04/17/17 18:25 04/17/17 20:24 04/17/17 23:25 Glucose (Fingerstick) 185 mg/dL (70-99) 203 mg/dL (70-99) 189 mg/dL (70-99) Sodium Level 137 mmol/L (136-145) Potassium Level 4.4 mmol/L (3.5-5.1) Chloride Level 102 mmol/L (98-107) Carbon Dioxide Level 26 mmol/L (21-32) Anion Gap 9 (6-14) Blood Urea Nitrogen 22 mg/dL (7-20) Creatinine 0.7 mg/dL (0.6-1.0) Estimated GFR (Cockcroft-Gault) 82.5 Glucose Level 201 mg/dL (70-99) Calcium Level 7.7 mg/dL (8.5-10.1) Phosphorus Level 3.4 mg/dL (2.6-4.7) Magnesium Level 2.1 mg/dL (1.8-2.4) Test 04/17/17 23:30 04/18/17 05:31 Sodium Level 137 mmol/L (136-145) 137 mmol/L (136-145) Potassium Level 4.5 mmol/L (3.5-5.1) 4.4 mmol/L (3.5-5.1) Chloride Level 102 mmol/L (98-107) 104 mmol/L (98-107) Carbon Dioxide Level 27 mmol/L (21-32) 21 mmol/L (21-32) Anion Gap 8 (6-14) 12 (6-14) Blood Urea Nitrogen 22 mg/dL (7-20) 21 mg/dL (7-20) Creatinine 0.6 mg/dL (0.6-1.0) 0.6 mg/dL (0.6-1.0) Estimated GFR (Cockcroft-Gault) 98.5 98.5 Glucose Level 203 mg/dL (70-99) 135 mg/dL (70-99) Calcium Level 7.3 mg/dL (8.5-10.1) 8.0 mg/dL (8.5-10.1) Magnesium Level 2.2 mg/dL (1.8-2.4) Medications Active Scripts Medications Dose Route/Sig Max Daily Dose Days Date Category Flagyl (Metronidazole) 500 Mg Tablet 1 Tab PO BID 03/01/17 Reported Cefpodoxime Proxetil 200 Mg Tablet 1 Tab PO BID 03/01/17 Reported Ferrous Sulfate 325 Mg Tablet 1 Tab PO DAILY 02/23/17 Reported Lasix (Furosemide) 40 Mg Tablet 40 Mg PO QODAY 02/23/17 Reported Potassium Chloride 10 Meq Capsule.er 10 Meq PO QODAY 02/23/17 Reported Metoprolol Tartrate 25 Mg Tablet 12.5 Mg PO BID 01/31/17 Reported Atorvastatin Calcium 40 Mg Tablet 40 Mg PO HS 01/31/17 Reported Clopidogrel (Clopidogrel Bisulfate) 75 Mg Tablet 1 Tab PO DAILY 08/24/15 Reported Diclofenac Sodium 75 Mg Tablet.dr 75 Mg PO DAILY 12/21/14 Reported Ranitidine Hcl 150 Mg Tablet 1 Tab PO BID 12/21/14 Reported Aspirin 81 Mg Tab.chew 1 Tab PO DAILY 04/15/14 Reported Impression . 1. [id number] respiratory failure, MULTIFACTORIAL 2. Status post laparoscopic converted to open exploration for extensive lysis of adhesion, removal of old mesh, subtotal colectomy, small bowel resection and incisional hernia repair 3. Obesity, body mass index of 35. 4. Leukocytosis. 5. Enterocutaneous fistula. Abdominal abscess, measuring 6.4 x 4.9 cm. s/p drain 03/12. Klebsiella ( R to Zosyn, S Cipro/Levo), VRE (R PCN) and PSAE ( R to ticarcillin only otherwise sensitive, S Cipro/Levo) and C tropicalis -h/o Strep anginosis and Bacteroides 6. Fever RESOLVED 7. Abdominal abscess. 8. Ventral hernia, status post repair. 9. Bilateral effusions due to low oncotic pressure/ , small effusions on ct 10. Anxiety disorder 11. hypotension, on levo Palliative Care Spoke with patient and son Chris. Patient off BiPap ---feels better. RR 32-34. Reviewed conversations patient and son had with physicians. Patient wants to continue to try to get better. Son Chris supportive of her wish. Understands that this will need to be evaluated closely as respiratory condition could decline rapidly. Encouraged patient and son to have conversation about any limitations of care that she would want. They understand that recovery could be a long process. Will continue to follow closely. Chris will be at work tomorrow but available by phone if anything changes. Plan . RESP STATUS IS COMPENSATED, CXR UNCHANGED 04/16 WILL AVOID BIPAP DUE TO DAMAGE TO SKIN AT BRIDGE OF NOSE REPEAT CT ABDOMEN/PELVIS REVIEWED/ SMALL EFFUSIONS LASIX PRN/ COLLOID AGAIN TODAY WEAN OFF LEVO VENOUS DOPPLER NEGATIVE/ CT NEGATIVE FOR PE ANXIETY/ ON SCHEDULED ATIVAN D/W RN Pt is now DNR STACI CORRAL MD Apr 18, 2017 10:26
[2017-04-18] MEDS: FUROSEMIDE 40 MG/4 ML VIAL. IVP SCH (10:27)
[2017-04-18] MEDS ORDERED: ALBUMIN HUMAN 5% 500 ML IV ONE (10:30)
[2017-04-18] MEDS: ACETAMINOPHEN 325 MG TABLET. PO PRN (12:12)
--- NOTE | 2017-04-18 12:28 | PDOC ---
SURGICAL PROGRESS NOTE Subjective Pt sleeping cont supportive care Vital Signs Vital Signs Date Time Temp Pulse Resp B/P (MAP) Pulse Ox O2 Delivery O2 Flow Rate FiO2 04/18/17 12:00 99.2 113 27 85/43 (57) 98 Nasal Cannula 4.0 99.2 I&O Intake and Output 04/18/17 06:59 Intake Total 3412 ml Output Total 2167 ml Balance 1245 ml Intake Oral 800 ml IV Total 2612 ml Output Urine Total 1915 ml Stool Total 250 ml Drainage Total 2 ml Labs Laboratory Tests Test 04/16/17 17:34 04/16/17 21:09 04/17/17 00:13 04/17/17 06:21 Glucose (Fingerstick) 265 mg/dL (70-99) 183 mg/dL (70-99) 194 mg/dL (70-99) 124 mg/dL (70-99) Test 04/17/17 17:47 04/17/17 18:25 04/17/17 20:24 04/17/17 23:25 Glucose (Fingerstick) 185 mg/dL (70-99) 203 mg/dL (70-99) 189 mg/dL (70-99) Sodium Level 137 mmol/L (136-145) Potassium Level 4.4 mmol/L (3.5-5.1) Chloride Level 102 mmol/L (98-107) Carbon Dioxide Level 26 mmol/L (21-32) Anion Gap 9 (6-14) Blood Urea Nitrogen 22 mg/dL (7-20) Creatinine 0.7 mg/dL (0.6-1.0) Estimated GFR (Cockcroft-Gault) 82.5 Glucose Level 201 mg/dL (70-99) Calcium Level 7.7 mg/dL (8.5-10.1) Phosphorus Level 3.4 mg/dL (2.6-4.7) Magnesium Level 2.1 mg/dL (1.8-2.4) Test 04/17/17 23:30 04/18/17 05:31 04/18/17 12:10 Sodium Level 137 mmol/L (136-145) 137 mmol/L (136-145) Potassium Level 4.5 mmol/L (3.5-5.1) 4.4 mmol/L (3.5-5.1) Chloride Level 102 mmol/L (98-107) 104 mmol/L (98-107) Carbon Dioxide Level 27 mmol/L (21-32) 21 mmol/L (21-32) Anion Gap 8 (6-14) 12 (6-14) Blood Urea Nitrogen 22 mg/dL (7-20) 21 mg/dL (7-20) Creatinine 0.6 mg/dL (0.6-1.0) 0.6 mg/dL (0.6-1.0) Estimated GFR (Cockcroft-Gault) 98.5 98.5 Glucose Level 203 mg/dL (70-99) 135 mg/dL (70-99) Calcium Level 7.3 mg/dL (8.5-10.1) 8.0 mg/dL (8.5-10.1) Magnesium Level 2.2 mg/dL (1.8-2.4) Glucose (Fingerstick) 183 mg/dL (70-99) Laboratory Tests Test 04/17/17 17:47 04/17/17 18:25 04/17/17 20:24 04/17/17 23:25 Glucose (Fingerstick) 185 mg/dL (70-99) 203 mg/dL (70-99) 189 mg/dL (70-99) Sodium Level 137 mmol/L (136-145) Potassium Level 4.4 mmol/L (3.5-5.1) Chloride Level 102 mmol/L (98-107) Carbon Dioxide Level 26 mmol/L (21-32) Anion Gap 9 (6-14) Blood Urea Nitrogen 22 mg/dL (7-20) Creatinine 0.7 mg/dL (0.6-1.0) Estimated GFR (Cockcroft-Gault) 82.5 Glucose Level 201 mg/dL (70-99) Calcium Level 7.7 mg/dL (8.5-10.1) Phosphorus Level 3.4 mg/dL (2.6-4.7) Magnesium Level 2.1 mg/dL (1.8-2.4) Test 04/17/17 23:30 04/18/17 05:31 04/18/17 12:10 Sodium Level 137 mmol/L (136-145) 137 mmol/L (136-145) Potassium Level 4.5 mmol/L (3.5-5.1) 4.4 mmol/L (3.5-5.1) Chloride Level 102 mmol/L (98-107) 104 mmol/L (98-107) Carbon Dioxide Level 27 mmol/L (21-32) 21 mmol/L (21-32) Anion Gap 8 (6-14) 12 (6-14) Blood Urea Nitrogen 22 mg/dL (7-20) 21 mg/dL (7-20) Creatinine 0.6 mg/dL (0.6-1.0) 0.6 mg/dL (0.6-1.0) Estimated GFR (Cockcroft-Gault) 98.5 98.5 Glucose Level 203 mg/dL (70-99) 135 mg/dL (70-99) Calcium Level 7.3 mg/dL (8.5-10.1) 8.0 mg/dL (8.5-10.1) Magnesium Level 2.2 mg/dL (1.8-2.4) Glucose (Fingerstick) 183 mg/dL (70-99) Problem List Problems Medical Problems: (1) Abdominal abscess Status: Acute (2) Abdominal pain Status: Acute Problems: LI HAMMOND MD Apr 18, 2017 12:28
[2017-04-18] MEDS: TPN PER PHARMACY MC PRN ×2 (13:34→13:37)
[2017-04-18] MEDS: fentaNYL PF VIAL 100 MCG/2 ML VIAL IV PRN (15:52)
--- NOTE | 2017-04-18 17:16 | PDOC2 ---
PALLIATIVE CARE Palliative Care Note Palliative Care Patient alert. Diaphoretic Remains on Levophed. 2mcg. Confirmed goals with patient. Continue aggressive treatment. DNR/DNI "Wants to get well and get out of here" Encouraged patient to participate in therapy to get stronger Spoke with Chris/son. No questions. Palliative Care will sign off. Re-consult if needed. KATI ROSE Apr 18, 2017 17:16
[2017-04-18] MEDS ORDERED: FUROSEMIDE 40 MG/4 ML VIAL. IVP ONE (18:30)
[2017-04-18] MEDS ORDERED: ALBUMIN HUMAN 5% 250 ML IV ONE (18:30)
[2017-04-18] MEDS ORDERED: DEXTROSE 70% IV SCH ×11 (22:00)
[2017-04-18] MEDS ORDERED: TOTAL PARENTERAL NUTRITION IV SCH ×11 (22:00)
[2017-04-18] MEDS ORDERED: [UNRECOGNIZED DRUG - OTHER] IV SCH ×11 (22:00)
[2017-04-18] MEDS ORDERED: AMINO ACIDS IV SCH ×11 (22:00)
[2017-04-18] MEDS: INSULIN DETEMIR 300 UNITS/3 ML INSULN.PEN. SQ SCH (23:05)
[2017-04-18] MEDS: ALBUTEROL SULFATE 2.5 MG/3 ML NEBU. NEB PRN (23:37)
[2017-04-19] VITALS (24 sets, daily range): BP systolic 57–135; BP diastolic 43–74
[2017-04-19] MEDS: fentaNYL PF VIAL 100 MCG/2 ML VIAL IV PRN (04:53)
[2017-04-19] MEDS: CEFEPIME HCL IV Push 1 GM VIAL. IVP SCH ×4 (05:07→23:22)
[2017-04-19] MEDS: INSULIN ASPART 300 UNITS/3 ML INSULN.PEN SQ SCH ×3 (06:00→17:29)
[2017-04-19] MEDS ORDERED: DIGO125T PO (07:10)
[2017-04-19] MEDS ORDERED: SPIR25TA3 PO (07:10)
[2017-04-19] MEDS ORDERED: CARV6.25 PO (07:10)
[2017-04-19] MEDS ORDERED: PIOG30TA41 PO (07:10)
[2017-04-19] MEDS ORDERED: NIAC500T PO (07:10)
[2017-04-19] MEDS ORDERED: OMEP40CA5 PO (07:10)
[2017-04-19] MEDS ORDERED: SITA100T PO (07:10)
[2017-04-19] MEDS ORDERED: CRESTOR5 MG PO (07:10)
[2017-04-19] MEDS ORDERED: WARF1TAB74 PO (07:10)
[2017-04-19] MEDS ORDERED: LOSA25TA PO (07:10)
[2017-04-19] MEDS ORDERED: FURO-69 PO (07:10)
[2017-04-19] MEDS: IPRATROPIUM BROMIDE 0.5 MG/2.5 ML NEBU. NEB SCH ×4 (07:41→19:30)
[2017-04-19] MEDS: MULTIVITAMIN with MINERAL TABLET. PO SCH (07:42)
[2017-04-19] MEDS: ASPIRIN CHEWABLE 81 MG TABLET. PO SCH (07:42)
[2017-04-19] MEDS: LORazepam 0.5 MG TABLET PO PRN ×2 (07:42→23:20)
[2017-04-19] MEDS: FERROUS SULFATE 325 MG TABLET. PO SCH (07:42)
[2017-04-19] MEDS: HYDROcodone/APAP 7.5/325MG 1 TAB TABLET PO PRN ×3 (07:42→18:31)
[2017-04-19] MEDS: ASCORBIC ACID 500 MG TABLET PO SCH (07:42)
[2017-04-19] MEDS: buPROPion XL 150 MG TAB.ER.24H. PO SCH (07:42)
[2017-04-19] MEDS: PANTOPRAZOLE IV PUSH 40 MG VIAL. IVP SCH (07:43)
--- NOTE | 2017-04-19 07:45 | PDOC ---
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 s/p drain 03/12. Klebsiella ( R to Zosyn, S Cipro/Levo), VRE (R PCN) and PSAE ( R to ticarcillin only otherwise sensitive, S Cipro/Levo) and C tropicalis h/o Strep anginosis and Bacteroides Ventral hernia DM HTN PCN allergy/amox also - hives and swelling Plan Plan of Care Repeat BC from 04/12 NGTD Cont Zyvox (04/11), Flagyl and Cefepime 04/07,, f/u cultures and monitor CBC/temp Supportive care DNR/DNI Guarded prognosis overall given resp failure/deconditioning SANDRA RODNEY MD Apr 19, 2017 07:45
[2017-04-19] MEDS: METOPROLOL SUCC 24HR ER 25 MG TAB.ER.24H. PO SCH (07:52)
--- NOTE | 2017-04-19 08:55 | PDOC ---
PROGRESS NOTES Subjective Subjective HPI - f/u of Thrombocytosis/anemia ROS - off BIPAP Objective Objective Vital Signs Date Time Temp Pulse Resp B/P (MAP) Pulse Ox O2 Delivery O2 Flow Rate FiO2 04/19/17 07:52 115 105/58 04/19/17 07:42 26 90 Nasal Cannula 5.0 04/19/17 04:00 98.5 98.5 Intake and Output 04/19/17 07:00 Intake Total 2359 ml Output Total 3575 ml Balance -1216 ml Intake Oral 650 ml IV Total 1709 ml Output Urine Total 3325 ml Stool Total 250 ml Drainage Total 0 ml Physical Exam Heart: Regular rate General: mild distress Assessment Assessment Problems Medical Problems: (1) Abdominal abscess Status: Acute (2) Abdominal pain Status: Acute A/P: 1. Thrombocytosis reactive - previously thrombocytopenia. Plt count now 428. 2. Anemia. Most likely multifactorial. Iron studies are suggestive of anemia of chronic disease. /B12 normal. Hb 9.8 monitor and transfuse as needed. 3. Abscess. Management as per primary/surgery/ID 4. Status post laparoscopic converted to open exploration for extensive lysis of adhesion, removal of old mesh, subtotal colectomy, small bowel resection and incisional hernia repair. 03/24 5. [id number] respiratory failure. Persistent dyspnea/ now off BIPAP - appreciate pulm f/u. Appreciate palliative care eval, pt now DNR Comment Review of Relevant I have reviewed the following items chito (where applicable) has been applied. Labs Laboratory Tests Test 04/17/17 17:47 04/17/17 18:25 04/17/17 20:24 04/17/17 23:25 Glucose (Fingerstick) 185 mg/dL (70-99) 203 mg/dL (70-99) 189 mg/dL (70-99) Sodium Level 137 mmol/L (136-145) Potassium Level 4.4 mmol/L (3.5-5.1) Chloride Level 102 mmol/L (98-107) Carbon Dioxide Level 26 mmol/L (21-32) Anion Gap 9 (6-14) Blood Urea Nitrogen 22 mg/dL (7-20) Creatinine 0.7 mg/dL (0.6-1.0) Estimated GFR (Cockcroft-Gault) 82.5 Glucose Level 201 mg/dL (70-99) Calcium Level 7.7 mg/dL (8.5-10.1) Phosphorus Level 3.4 mg/dL (2.6-4.7) Magnesium Level 2.1 mg/dL (1.8-2.4) Test 04/17/17 23:30 04/18/17 05:31 04/18/17 12:10 04/18/17 22:52 Sodium Level 137 mmol/L (136-145) 137 mmol/L (136-145) Potassium Level 4.5 mmol/L (3.5-5.1) 4.4 mmol/L (3.5-5.1) Chloride Level 102 mmol/L (98-107) 104 mmol/L (98-107) Carbon Dioxide Level 27 mmol/L (21-32) 21 mmol/L (21-32) Anion Gap 8 (6-14) 12 (6-14) Blood Urea Nitrogen 22 mg/dL (7-20) 21 mg/dL (7-20) Creatinine 0.6 mg/dL (0.6-1.0) 0.6 mg/dL (0.6-1.0) Estimated GFR (Cockcroft-Gault) 98.5 98.5 Glucose Level 203 mg/dL (70-99) 135 mg/dL (70-99) Calcium Level 7.3 mg/dL (8.5-10.1) 8.0 mg/dL (8.5-10.1) Magnesium Level 2.2 mg/dL (1.8-2.4) Glucose (Fingerstick) 183 mg/dL (70-99) 195 mg/dL (70-99) Test 04/19/17 05:45 Glucose (Fingerstick) 153 mg/dL (70-99) Laboratory Tests Test 04/18/17 12:10 04/18/17 22:52 04/19/17 05:45 Glucose (Fingerstick) 183 mg/dL (70-99) 195 mg/dL (70-99) 153 mg/dL (70-99) Microbiology 04/12/17 Blood Culture - Final, Complete NO GROWTH AFTER 5 DAYS 04/06/17 Fungal Culture - Preliminary, Resulted 04/06/17 Fungal Culture Result 1 - Preliminary, Resulted 03/09/17 Urine Culture - Final, Complete 03/09/17 Urine Culture Result 1 (KULDEEP) - Final, Complete 03/12/17 Fungal Culture - Final, Complete 03/12/17 Fungal Culture Result 1 - Final, Complete Medications Current Medications Ondansetron HCl (Zofran) 4 mg 1X ONCE IV Last administered on 03/09/17 08:30 ; Start 03/09/17 at 08:15; Stop 03/09/17 at 08:16; Status DC Iohexol (Omnipaque 300 Mg/ml) 75 ml 1X ONCE IV Last administered on 03/09/17 08:50; Start 03/09/17 at 08:45; Stop 03/09/17 at 08:46; Status DC Info (Do NOT chart on this entry -- for MONITORING) 1 each PRN DAILY PRN MC SEE COMMENTS; Start 03/09/17 at 08:45; Stop 03/11/17 at 08:44; Status DC Ceftriaxone Sodium 50 ml @ 100 mls/hr 1X ONCE IV ; Start 03/09/17 at 09:30; Stop 03/09/17 at 09:55; Status DC Sodium Chloride 1,000 ml @ 1,000 mls/hr 1X ONCE IV Last administered on 09:55; Start 03/09/17 at 10:00; Stop 03/09/17 at 10:59; Status DC Ondansetron HCl (Zofran) 4 mg PRN Q8HRS PRN IV NAUSEA/VOMITING; Start 03/09/17 at 10:30; Stop 03/10/17 at 10:29; Status DC Meropenem 500 mg/ Sodium Chloride 50 ml @ 100 mls/hr Q8HRS IV Last administered on 03/16/17 06:09; Start 03/09/17 at 13:00; Stop 03/16/17 at 12: 59; Status DC Acetaminophen (Tylenol) 650 mg PRN QID PRN PO MILD PAIN / TEMP Last administered on 04/18/17 12:12; Start 03/09/17 at 20:30 Aspirin (Children'S Aspirin) 81 mg DAILY PO Last administered on 04/19/17 07: 42; Start 03/10/17 at 15:00 Clopidogrel Bisulfate (Plavix) 75 mg DAILY PO Last administered on 03/19/17 10:00; Start 03/10/17 at 15:00; Stop 03/22/17 at 09:10; Status DC Ferrous Sulfate (Feosol) 325 mg DAILY PO Last administered on 04/19/17 07:42 ; Start 03/10/17 at 15:00 Metoprolol Tartrate (Lopressor) 12.5 mg BID PO Last administered on 03/10/17 16:01; Start 03/10/17 at 15:00; Stop 03/10/17 at 21:01; Status DC Diclofenac Sodium (Voltaren) 75 mg DAILY PO Last administered on 03/23/17 09: 23; Start 03/10/17 at 14:30; Stop 03/29/17 at 10:50; Status DC Famotidine (Pepcid) 20 mg QHS PO Last administered on 03/24/17 21:20; Start 03/10/17 at 21:00; Stop 03/26/17 at 09:35; Status DC Glimepiride (Amaryl) 1 mg DAILY PO Last administered on 03/13/17 09:25; Start 03/11/17 at 15:00; Stop 03/13/17 at 17:02; Status DC Sodium Chloride 1,000 ml @ 100 mls/hr 1X ONCE IV Last administered on 21:00; Start 03/10/17 at 21:00; Stop 03/11/17 at 06:59; Status DC Lidocaine/Sodium Bicarbonate (Buffered Lidocaine 1%) 20 ml STK-MED ONCE IJ ; Start 03/12/17 at 13:05; Stop 03/12/17 at 13:06; Status DC Fentanyl Citrate (Fentanyl 2ml Vial) 100 mcg STK-MED ONCE .ROUTE ; Start at 13:20; Stop 03/12/17 at 13:21; Status DC Midazolam HCl (Versed) 2 mg STK-MED ONCE .ROUTE ; Start 03/12/17 at 13:20; Stop 03/12/17 at 13:21; Status DC Flumazenil (Romazicon) 0.5 mg STK-MED ONCE IV ; Start 03/12/17 at 13:20; Stop 03/12/17 at 13:21; Status DC Naloxone HCl (Narcan) 0.4 mg STK-MED ONCE .ROUTE ; Start 03/12/17 at 13:20; Stop 03/12/17 at 13:21; Status DC Lidocaine/Sodium Bicarbonate (Buffered Lidocaine 1%) 20 ml 1X ONCE IJ Last administered on 03/12/17 13:50; Start 03/12/17 at 13:30; Stop 03/12/17 at 13:33 ; Status DC Midazolam HCl (Versed) 2 mg 1X ONCE IV Last administered on 03/12/17 13:50; Start 03/12/17 at 13:30; Stop 03/12/17 at 13:33; Status DC Fentanyl Citrate (Fentanyl 2ml Vial) 100 mcg 1X ONCE IV Last administered on 03/12/17 13:50; Start 03/12/17 at 13:30; Stop 03/12/17 at 13:33; Status DC Lactobacillus Rhamnosus (Culturelle) 1 cap BID PO Last administered on 21:20; Start 03/12/17 at 21:00; Stop 03/25/17 at 21:06; Status DC Acetaminophen/ Hydrocodone Bitart (Lortab 7.5/325) 1 tab PRN Q6HRS PRN PO MODERATE - SEVERE PAIN Last administered on 04/19/17 07:42; Start 03/12/17 at 18:15 Ondansetron HCl (Zofran) 4 mg PRN Q6HRS PRN IV NAUSEA/VOMITING, 1ST CHOICE Last administered on 04/17/17 03:45; Start 03/13/17 at 09:00 Furosemide (Lasix) 40 mg QODAY PO Last administered on 03/22/17 09:39; Start 03/14/17 at 09:00; Stop 03/26/17 at 09:00; Status DC Glimepiride (Amaryl) 1 mg DAILY08 PO Last administered on 03/22/17 09:40; Start 03/14/17 at 08:00; Stop 03/23/17 at 08:52; Status DC Linezolid (Zyvox) 600 mg BID PO Last administered on 03/24/17 21:20; Start 03/14/17 at 13:15; Stop 03/25/17 at 10:49; Status DC Meropenem (Merrem) 500 mg Q8HRS IVP Last administered on 03/30/17 06:04; Start 03/16/17 at 14:00; Stop 03/30/17 at 07:49; Status DC Iohexol (Omnipaque 240 Mg/ml) 50 ml STK-MED ONCE .ROUTE ; Start 03/19/17 at 13: 11; Stop 03/19/17 at 13:12; Status DC Iohexol (Omnipaque 240 Mg/ml) 10 ml 1X ONCE IJ Last administered on 14:07; Start 03/19/17 at 14:00; Stop 03/19/17 at 14:01; Status DC Info (Do NOT chart on this entry -- for MONITORING) 1 each PRN DAILY PRN MC SEE COMMENTS; Start 03/19/17 at 14:00; Stop 03/21/17 at 13:59; Status DC Iohexol (Omnipaque 240 Mg/ml) 50 ml STK-MED ONCE .ROUTE ; Start 03/19/17 at 13: 55; Stop 03/19/17 at 13:56; Status DC Fluconazole (Diflucan) 200 mg DAILY PO Last administered on 03/23/17 09:24; Start 03/22/17 at 09:30; Stop 03/25/17 at 10:51; Status DC Metoprolol Succinate (Toprol Xl) 12.5 mg DAILY PO Last administered on 08:04; Start 03/23/17 at 09:00 Glimepiride (Amaryl) 0.5 mg DAILY08 PO ; Start 03/24/17 at 08:00; Stop at 13:05; Status DC Morphine Sulfate 1 mg PRN Q10MIN PRN IV SEVERE PAIN; Start 03/26/17 at 07:00; Stop 03/26/17 at 07:00; Status DC Ringer's Solution 1,000 ml @ 30 mls/hr Q24H IV ; Start 03/26/17 at 07:00; Stop 03/26/17 at 07:00; Status DC Lidocaine HCl (Xylocaine-Mpf 1% Vial) 2 ml PRN 1X PRN ID PRIOR TO IV START; Start 03/26/17 at 07:00; Stop 03/26/17 at 07:00; Status DC Hydromorphone HCl (Dilaudid) 0.5 mg PRN Q10MIN PRN IV SEV PAIN, Second choice; Start 03/26/17 at 07:00; Stop 03/27/17 at 06:59; Status Cancel Prochlorperazine Edisylate (Compazine) 5 mg PACU PRN PRN IV NAUSEA, MRX1 Last administered on 03/25/17 07:45; Start 03/26/17 at 07:00; Stop 03/26/17 at 07 :00; Status DC Morphine Sulfate 1 mg PRN Q10MIN PRN IV SEVERE PAIN; Start 03/24/17 at 07:45; Stop 03/25/17 at 07:44; Status DC Ringer's Solution 1,000 ml @ 30 mls/hr Q24H IV Last administered on 14:15; Start 03/24/17 at 07:32; Stop 03/24/17 at 19:31; Status DC Lidocaine HCl (Xylocaine-Mpf 1% Vial) 2 ml 1X PRN PRN ID IV START; Start 03/24 at 07:45; Stop 03/25/17 at 07:44; Status DC Hydromorphone HCl (Dilaudid) 0.5 mg PRN Q10MIN PRN IV SEV PAIN, Second choice; Start 03/24/17 at 07:45; Stop 03/25/17 at 07:44; Status DC Prochlorperazine Edisylate (Compazine) 5 mg PACU PRN PRN IV NAUSEA, MRX1; Start 03/24/17 at 07:45; Stop 03/25/17 at 07:44; Status DC Bupivacaine HCl/ Epinephrine Bitart (Sensorcain-Mpf Epi 0.5%-[id number]) 30 ml STK -MED ONCE .ROUTE Last administered on 03/24/17 15:56; Start 03/24/17 at 10: 28; Stop 03/24/17 at 10:29; Status DC Neostigmine Methylsulfate (Bloxiverz) 10 mg STK-MED ONCE .ROUTE ; Start at 14:38; Stop 03/24/17 at 14:39; Status DC Rocuronium [place] (Zemuron) 50 mg STK-MED ONCE .ROUTE ; Start 03/24/17 at 14: 38; Stop 03/24/17 at 14:39; Status DC Fentanyl Citrate (Fentanyl 2ml Vial) 100 mcg STK-MED ONCE .ROUTE ; Start at 14:38; Stop 03/24/17 at 14:39; Status DC Phenylephrine HCl 1 mg STK-MED ONCE IV ; Start 03/24/17 at 14:40; Stop at 14:41; Status DC Lidocaine HCl (Lidocaine Pf 2% Vial) 5 ml STK-MED ONCE .ROUTE ; Start 03/24/17 at 14:40; Stop 03/24/17 at 14:41; Status DC Dexamethasone Sodium Phosphate (Decadron) 20 mg STK-MED ONCE .ROUTE ; Start at 14:40; Stop 03/24/17 at 14:41; Status DC Ondansetron HCl (Zofran) 4 mg STK-MED ONCE .ROUTE ; Start 03/24/17 at 14:40; Stop 03/24/17 at 14:41; Status DC Propofol 20 ml @ As Directed STK-MED ONCE IV ; Start 03/24/17 at 14:40; Stop 03/24/17 at 14:41; Status DC Glycopyrrolate (Robinul) 1 mg STK-MED ONCE .ROUTE ; Start 03/24/17 at 15:11; Stop 03/24/17 at 15:12; Status DC Rocuronium [place] (Zemuron) 50 mg STK-MED ONCE .ROUTE ; Start 03/24/17 at 15: 53; Stop 03/24/17 at 15:54; Status DC Fentanyl Citrate (Fentanyl 2ml Vial) 100 mcg STK-MED ONCE .ROUTE ; Start at 16:01; Stop 03/24/17 at 16:02; Status DC Morphine Sulfate 10 mg STK-MED ONCE .ROUTE ; Start 03/24/17 at 16:02; Stop at 16:03; Status DC Albumin Human 500 ml @ As Directed STK-MED ONCE IV ; Start 03/24/17 at 17:03; Stop 03/24/17 at 17:04; Status DC Phenylephrine HCl (Corky-Synephrine Inj) 10 mg STK-MED ONCE .ROUTE ; Start at 17:27; Stop 03/24/17 at 17:28; Status DC Rocuronium [place] (Zemuron) 100 mg STK-MED ONCE .ROUTE ; Start 03/24/17 at 17: 57; Stop 03/24/17 at 17:58; Status DC Enoxaparin Sodium (Lovenox 40mg Syringe) 40 mg Q24H SQ Last administered on 20:51; Start 03/24/17 at 20:45; Stop 03/26/17 at 19:34; Status DC Sodium Chloride (Normal Saline Flush) 3 ml QSHIFT PRN IV AFTER MEDS AND BLOOD DRAWS; Start 03/24/17 at 20:45 Ringer's Solution 1,000 ml @ 100 mls/hr Q10H IV Last administered on 12:32; Start 03/24/17 at 20:43; Stop 03/25/17 at 16:52; Status DC Naloxone HCl (Narcan) 0.4 mg PRN Q2MIN PRN IV SEE INSTRUCTIONS; Start at 20:45 Sodium Chloride 1,000 ml @ 25 mls/hr Q24H IV Last administered on 03/27/17 12:08; Start 03/24/17 at 20:43; Stop 04/15/17 at 10:40; Status DC Hydromorphone HCl 30 ml @ 0 mls/hr CONT PRN PRN IV PROTOCOL Last administered on 03/24/17 23:16; Start 03/24/17 at 20:45 Prochlorperazine Edisylate (Compazine) 5 mg PRN Q4HRS PRN IV NAUSEA/VOMITING, 2ND CHOICE; Start 03/25/17 at 07:45 Pantoprazole Sodium (PROTONIX VIAL for IV PUSH) 40 mg DAILYAC IVP Last administered on 04/19/17 07:43; Start 03/25/17 at 10:15 Linezolid 300 ml @ 300 mls/hr Q12HR IV Last administered on 03/26/17 20:54; Start 03/25/17 at 11:00; Stop 03/27/17 at 08:05; Status DC Fluconazole/ Sodium Chloride 100 ml @ 100 mls/hr Q24H IV Last administered on 04/07/17 11:52; Start 03/25/17 at 11:00; Stop 04/07/17 at 13:39; Status DC Dextrose/Lactated Ringer's 1,000 ml @ 75 mls/hr [id number] IV Last administered on 04/03/17 08:54; Start 03/25/17 at 17:00; Stop 04/04/17 at 09:23; Status DC Famotidine (Pepcid Vial) 40 mg QHS IVP Last administered on 03/28/17 21:35; Start 03/25/17 at 21:00; Stop 03/29/17 at 08:02; Status DC Lorazepam (Ativan) 0.5 mg 1X ONCE IV ; Start 03/26/17 at 07:00; Stop at 07:01; Status Cancel Lorazepam (Ativan) 0.5 mg PRN Q8HRS PRN PO ANXIETY / AGITATION; Start at 07:00; Status Cancel Furosemide (Lasix) 40 mg 1X ONCE IVP Last administered on 03/26/17 09:54; Start 03/26/17 at 09:00; Stop 03/26/17 at 09:01; Status DC Furosemide (Lasix) 20 mg DAILY IVP Last administered on 03/30/17 09:29; Start 03/27/17 at 09:00; Stop 03/31/17 at 12:22; Status DC Digoxin (Lanoxin) 250 mcg 1X ONCE IV Last administered on 03/26/17 15:06; Start 03/26/17 at 15:15; Stop 03/26/17 at 15:16; Status DC Iohexol (Omnipaque 300 Mg/ml) 75 ml 1X ONCE IV Last administered on 16:41; Start 03/26/17 at 16:45; Stop 03/26/17 at 16:46; Status DC Info (Do NOT chart on this entry -- for MONITORING) 1 each PRN DAILY PRN MC SEE COMMENTS; Start 03/26/17 at 16:45; Stop 03/28/17 at 16:44; Status DC Norepinephrine Bitartrate 250 ml @ As Directed STK-MED ONCE IV ; Start at 17:42; Stop 03/26/17 at 17:43; Status DC Norepinephrine Bitartrate 250 ml @ 0 mls/hr CONT PRN IV SEE I/O RECORD Last administered on 03/26/17 18:01; Start 03/26/17 at 18:00; Stop 04/04/17 at 09 :57; Status DC Enoxaparin Sodium (Lovenox Per Pharmacy Treatment Dosing) 1 each PRN DAILY PRN MC SEE COMMENTS; Start 03/26/17 at 19:30; Stop 03/28/17 at 12:38; Status DC Enoxaparin Sodium (Lovenox 80mg Syringe) 80 mg Q12HR SQ Last administered on 21:51; Start 03/26/17 at 20:00; Stop 03/28/17 at 15:36; Status DC Daptomycin 460 mg/ Sodium Chloride 50 ml @ 100 mls/hr Q24H IV Last administered on 04/11/17 09:41; Start 03/27/17 at 09:00; Stop 04/12/17 at 07: 49; Status DC Digoxin (Lanoxin) 250 mcg 1X ONCE IV Last administered on 03/27/17 12:09; Start 03/27/17 at 12:00; Stop 03/27/17 at 12:01; Status DC Insulin Detemir (Levemir) 5 units QHS SQ Last administered on 04/04/17 21:30 ; Start 03/27/17 at 21:00; Stop 04/05/17 at 09:34; Status DC Albumin Human 100 ml @ 100 mls/hr Q8H IV Last administered on 03/29/17 00:42 ; Start 03/28/17 at 09:00; Stop 03/29/17 at 01:59; Status DC Lorazepam (Ativan) 1 mg PRN Q6HRS PRN PO ANXIETY / AGITATION Last administered on 04/07/17 05:43; Start 03/28/17 at 16:00; Stop 04/07/17 at 16:34; Status DC Iohexol (Omnipaque 300 Mg/ml) 75 ml 1X ONCE IV Last administered on 16:00; Start 03/28/17 at 16:00; Stop 03/28/17 at 16:02; Status DC Info (Do NOT chart on this entry -- for MONITORING) 1 each PRN DAILY PRN MC SEE COMMENTS; Start 03/28/17 at 16:15; Stop 03/30/17 at 16:14; Status DC Fentanyl Citrate (Fentanyl 2ml Vial) 50 mcg PRN Q4HRS PRN IV PAIN Last administered on 04/19/17 04:53; Start 03/29/17 at 09:45 Ciprofloxacin/ Dextrose 200 ml @ 200 mls/hr Q12HR IV Last administered on 08:58; Start 03/30/17 at 09:00; Stop 04/04/17 at 10:45; Status DC Lorazepam (Ativan) 0.5 mg Q12HR PO Last administered on 04/12/17 22:14; Start 03/30/17 at 21:00; Stop 04/13/17 at 09:16; Status DC Dopamine HCl/ Dextrose 250 ml @ 15.155 mls/ hr CONT PRN IV SEE I/O RECORD Last administered on 04/06/17 15:44; Start 03/31/17 at 13:00 Info 1 each PRN DAILY PRN MC SEE COMMENTS Last administered on 04/18/17 13:37 ; Start 04/03/17 at 12:15 Sodium Chloride 90 meq/Potassium Chloride 50 meq/ Potassium Phosphate 20.4 mmol/ Magnesium Sulfate 10 meq/ Calcium Gluconate 10 meq/ Multivitamins 10 ml/Chromium / Copper/Manganese/ Seleni/Zn 1 ml/ Total Parenteral Nutrition/Amino Acids/ Dextrose/ Fat Emulsion Intravenous 1,512 ml @ 63 mls/hr TPN CONT IV Last administered on 04/03/17 21:38; Start 04/03/17 at 22:00; Stop 04/04/17 at 21 :59; Status DC Levofloxacin/ Dextrose 100 ml @ 100 mls/hr Q24H IV Last administered on 21:47; Start 04/04/17 at 21:00; Stop 04/07/17 at 13:39; Status DC Furosemide (Lasix) 40 mg DAILY IVP Last administered on 04/18/17 10:27; Start 04/04/17 at 12:00 Sodium Chloride 90 meq/Potassium Chloride 50 meq/ Potassium Phosphate 20.4 mmol/ Magnesium Sulfate 16 meq/ Calcium Gluconate 10 meq/ Multivitamins 10 ml/Chromium / Copper/Manganese/ Seleni/Zn 1 ml/ Total Parenteral Nutrition/Amino Acids/ Dextrose/ Fat Emulsion Intravenous 1,512 ml @ 63 mls/hr TPN CONT IV Last administered on 04/04/17 21:16; Start 04/04/17 at 22:00; Stop 04/05/17 at 21 :59; Status DC Insulin Detemir (Levemir) 20 units QHS SQ Last administered on 04/10/17 21:39 ; Start 04/05/17 at 21:00; Stop 04/11/17 at 08:11; Status DC Insulin Detemir (Levemir) 10 units 1X ONCE SQ Last administered on 04/05/17 14:12; Start 04/05/17 at 09:45; Stop 04/05/17 at 09:46; Status DC Sodium Chloride 90 meq/Potassium Chloride 50 meq/ Potassium Phosphate 20.4 mmol/ Magnesium Sulfate 24 meq/ Calcium Gluconate 10 meq/ Multivitamins 10 ml/Chromium / Copper/Manganese/ Seleni/Zn 1 ml/ Total Parenteral Nutrition/Amino Acids/ Dextrose/ Fat Emulsion Intravenous 1,512 ml @ 63 mls/hr TPN CONT IV Last administered on 04/05/17 20:55; Start 04/05/17 at 22:00; Stop 04/06/17 at 21: 59; Status DC Iohexol (Omnipaque 300 Mg/ml) 75 ml 1X ONCE IV ; Start 04/05/17 at 13:00; Stop 04/05/17 at 13:01; Status DC Iohexol (Omnipaque 240 Mg/ml) 30 ml 1X ONCE PO ; Start 04/05/17 at 13:00; Stop 04/05/17 at 13:01; Status DC Info (Do NOT chart on this entry -- for MONITORING) 1 each PRN DAILY PRN MC SEE COMMENTS; Start 04/05/17 at 13:00; Stop 04/07/17 at 12:59; Status DC Sodium Chloride 90 meq/Potassium Chloride 50 meq/ Potassium Phosphate 20.4 mmol/ Magnesium Sulfate 24 meq/ Calcium Gluconate 10 meq/ Multivitamins 10 ml/Chromium / Copper/Manganese/ Seleni/Zn 1 ml/ Total Parenteral Nutrition/Amino Acids/ Dextrose/ Fat Emulsion Intravenous 1,512 ml @ 63 mls/hr TPN CONT IV Last administered on 04/06/17 21:45; Start 04/06/17 at 22:00; Stop 04/07/17 at 21:59 ; Status DC Lidocaine/Sodium Bicarbonate (Buffered Lidocaine 1%) 20 ml STK-MED ONCE IJ ; Start 04/06/17 at 14:28; Stop 04/06/17 at 14:29; Status DC Fentanyl Citrate (Fentanyl 2ml Vial) 100 mcg STK-MED ONCE .ROUTE ; Start at 14:45; Stop 04/06/17 at 14:46; Status DC Midazolam HCl (Versed) 2 mg STK-MED ONCE .ROUTE ; Start 04/06/17 at 14:45; Stop 04/06/17 at 14:46; Status DC Flumazenil (Romazicon) 0.5 mg STK-MED ONCE IV ; Start 04/06/17 at 14:45; Stop 04/06/17 at 14:46; Status DC Naloxone HCl (Narcan) 0.4 mg STK-MED ONCE .ROUTE ; Start 04/06/17 at 14:45; Stop 04/06/17 at 14:46; Status DC Dopamine HCl/ Dextrose 250 ml @ As Directed STK-MED ONCE IV ; Start 04/06/17 at 14:50; Stop 04/06/17 at 14:51; Status DC Lidocaine/Sodium Bicarbonate (Buffered Lidocaine 1%) 7 ml 1X ONCE IJ Last administered on 04/06/17 15:20; Start 04/06/17 at 15:30; Stop 04/06/17 at 15:31 ; Status DC Sodium Chloride 90 meq/Potassium Chloride 50 meq/ Potassium Phosphate 13.6 mmol/ Magnesium Sulfate 20 meq/ Calcium Gluconate 10 meq/ Multivitamins 10 ml/Chromium / Copper/Manganese/ Seleni/Zn 1 ml/ Total Parenteral Nutrition/Amino Acids/ Dextrose/ Fat Emulsion Intravenous 1,512 ml @ 63 mls/hr TPN CONT IV Last administered on 04/07/17 21:19; Start 04/07/17 at 22:00; Stop 04/08/17 at 21:59 ; Status DC Micafungin Sodium 100 mg/Sodium Chloride 100 ml @ 100 mls/hr Q24H IV Last administered on 04/16/17 13:09; Start 04/07/17 at 14:00; Stop 04/17/17 at 07: 48; Status DC Metronidazole 100 ml @ 100 mls/hr Q8HRS IV Last administered on 04/19/17 05: 07; Start 04/07/17 at 14:00 Cefepime HCl 1 gm/ Dextrose 50 ml @ 100 mls/hr Q8HRS IV ; Start 04/07/17 at 14: 00; Status UNV Cefepime HCl (Maxipime) 1 gm Q8HRS IVP Last administered on 04/19/17 05:07; Start 04/07/17 at 14:00 Sodium Chloride 90 meq/Potassium Chloride 50 meq/ Potassium Phosphate 13.6 mmol/ Magnesium Sulfate 20 meq/ Calcium Gluconate 10 meq/ Multivitamins 10 ml/Chromium / Copper/Manganese/ Seleni/Zn 1 ml/ Total Parenteral Nutrition/Amino Acids/ Dextrose/ Fat Emulsion Intravenous 1,512 ml @ 63 mls/hr TPN CONT IV Last administered on 04/08/17 21:23; Start 04/08/17 at 22:00; Stop 04/09/17 at 21:59 ; Status DC Furosemide (Lasix) 40 mg 1X ONCE IVP Last administered on 04/09/17 10:03; Start 04/09/17 at 08:15; Stop 04/09/17 at 08:16; Status DC Sodium Chloride 90 meq/Potassium Chloride 50 meq/ Potassium Phosphate 13.6 mmol/ Magnesium Sulfate 20 meq/ Calcium Gluconate 10 meq/ Multivitamins 10 ml/Chromium / Copper/Manganese/ Seleni/Zn 1 ml/ Total Parenteral Nutrition/Amino Acids/ Dextrose/ Fat Emulsion Intravenous 1,512 ml @ 63 mls/hr TPN CONT IV Last administered on 04/09/17 21:52; Start 04/09/17 at 22:00; Stop 04/10/17 at 21:59 ; Status DC Sodium Chloride 90 meq/Potassium Chloride 60 meq/ Potassium Phosphate 13.6 mmol/ Magnesium Sulfate 20 meq/ Calcium Gluconate 10 meq/ Multivitamins 10 ml/Chromium / Copper/Manganese/ Seleni/Zn 1 ml/ Total Parenteral Nutrition/Amino Acids/ Dextrose/ Fat Emulsion Intravenous 1,512 ml @ 63 mls/hr TPN CONT IV Last administered on 04/10/17 21:37; Start 04/10/17 at 22:00; Stop 04/11/17 at 21:59 ; Status DC Insulin Detemir (Levemir) 22 units QHS SQ Last administered on 04/11/17 22:08 ; Start 04/11/17 at 21:00; Stop 04/12/17 at 12:21; Status DC Enoxaparin Sodium (Lovenox 40mg Syringe) 40 mg Q24H SQ Last administered on 09:05; Start 04/11/17 at 09:00 Sodium Chloride 90 meq/Potassium Chloride 60 meq/ Potassium Phosphate 13.6 mmol/ Magnesium Sulfate 20 meq/ Calcium Gluconate 10 meq/ Multivitamins 10 ml/Chromium / Copper/Manganese/ Seleni/Zn 1 ml/ Total Parenteral Nutrition/Amino Acids/ Dextrose/ Fat Emulsion Intravenous 1,512 ml @ 63 mls/hr TPN CONT IV Last administered on 04/11/17 21:59; Start 04/11/17 at 22:00; Stop 04/12/17 at 21:59 ; Status DC Norepinephrine Bitartrate 250 ml @ As Directed STK-MED ONCE IV ; Start at 15:51; Stop 04/11/17 at 15:52; Status DC Norepinephrine Bitartrate 250 ml @ 0 mls/hr CONT PRN IV SEE I/O RECORD Last administered on 04/18/17 01:37; Start 04/11/17 at 22:30 Linezolid 300 ml @ 300 mls/hr Q12HR IV Last administered on 04/18/17 22:00; Start 04/12/17 at 09:00 Norepinephrine Bitartrate (Levophed 8mg/ 250ml Premix Drip) 8 mg STK-MED ONCE IV ; Start 04/11/17 at 16:00; Stop 04/12/17 at 09:06; Status DC Insulin Detemir (Levemir) 24 units QHS SQ Last administered on 04/12/17 22:16 ; Start 04/12/17 at 21:00; Stop 04/13/17 at 08:24; Status DC Sodium Chloride 90 meq/Potassium Chloride 60 meq/ Potassium Phosphate 13.6 mmol/ Magnesium Sulfate 20 meq/ Calcium Gluconate 10 meq/ Multivitamins 10 ml/Chromium / Copper/Manganese/ Seleni/Zn 1 ml/ Total Parenteral Nutrition/Amino Acids/ Dextrose/ Fat Emulsion Intravenous 1,512 ml @ 63 mls/hr TPN CONT IV Last administered on 04/12/17 22:15; Start 04/12/17 at 22:00; Stop 04/13/17 at 21:59 ; Status DC Insulin Detemir (Levemir) 26 units QHS SQ Last administered on 04/13/17 21:56 ; Start 04/13/17 at 21:00; Stop 04/14/17 at 21:44; Status DC Lorazepam (Ativan) 0.5 mg PRN Q8HRS PRN PO ANXIETY / AGITATION Last administered on 04/19/17 07:42; Start 04/14/17 at 09:00 Sodium Chloride 90 meq/Potassium Chloride 60 meq/ Potassium Phosphate 13.6 mmol/ Magnesium Sulfate 15 meq/ Calcium Gluconate 8 meq/ Multivitamins 10 ml/Chromium / Copper/Manganese/ Seleni/Zn 1 ml/ Total Parenteral Nutrition/Amino Acids/ Dextrose/ Fat Emulsion Intravenous 1,512 ml @ 63 mls/hr TPN CONT IV Last administered on 04/13/17 21:45; Start 04/13/17 at 22:00; Stop 04/14/17 at 21:59 ; Status DC Sodium Chloride 90 meq/Potassium Chloride 60 meq/ Potassium Phosphate 13.6 mmol/ Magnesium Sulfate 10 meq/ Calcium Gluconate 8 meq/ Multivitamins 10 ml/Chromium / Copper/Manganese/ Seleni/Zn 1 ml/ Total Parenteral Nutrition/Amino Acids/ Dextrose/ Fat Emulsion Intravenous 1,512 ml @ 63 mls/hr TPN CONT IV ; Start 04/14/17 at 22:00; Stop 04/14/17 at 22:00; Status DC Sodium Chloride 90 meq/Potassium Chloride 60 meq/ Potassium Phosphate 13.6 mmol/ Magnesium Sulfate 15 meq/ Calcium Gluconate 8 meq/ Multivitamins 10 ml/Chromium / Copper/Manganese/ Seleni/Zn 1 ml/ Total Parenteral Nutrition/Amino Acids/ Dextrose/ Fat Emulsion Intravenous 1,512 ml @ 63 mls/hr TPN CONT IV Last administered on 04/14/17 21:27; Start 04/14/17 at 22:00; Stop 04/15/17 at 21: 59; Status DC Insulin Detemir (Levemir) 30 units QHS SQ Last administered on 04/18/17 23:05 ; Start 04/14/17 at 22:00 Sodium Chloride 90 meq/Potassium Chloride 60 meq/ Potassium Phosphate 13.6 mmol/ Magnesium Sulfate 15 meq/ Calcium Gluconate 8 meq/ Multivitamins 10 ml/Chromium / Copper/Manganese/ Seleni/Zn 1 ml/ Total Parenteral Nutrition/Amino Acids/ Dextrose/ Fat Emulsion Intravenous 1,512 ml @ 63 mls/hr TPN CONT IV Last administered on 04/15/17 21:52; Start 04/15/17 at 22:00; Stop 04/16/17 at 21 :59; Status DC Insulin Aspart (NovoLOG) 0-9 UNITS Q6HRS SQ Last administered on 04/18/17 12: 13; Start 04/15/17 at 18:00 Dextrose (Dextrose 50%-Water Syringe) 12.5 gm PRN Q15MIN PRN IV SEE COMMENTS; Start 04/15/17 at 15:30 Alteplase, Recombinant (Cathflo) 2 mg 1X ONCE INT CAT Last administered on 09:29; Start 04/16/17 at 09:00; Stop 04/16/17 at 09:01; Status DC Bupropion HCl (Wellbutrin Xl) 150 mg DAILY PO Last administered on 04/19/17 07:42; Start 04/16/17 at 10:00 Alteplase, Recombinant (Cathflo) 2 mg 1X ONCE INT CAT Last administered on 10:17; Start 04/16/17 at 10:15; Stop 04/16/17 at 10:16; Status DC Alteplase, Recombinant (Cathflo) 2 mg 1X ONCE INT CAT Last administered on 11:26; Start 04/16/17 at 11:15; Stop 04/16/17 at 11:16; Status DC Alteplase, Recombinant (Cathflo) 2 mg 1X ONCE INT CAT Last administered on 11:25; Start 04/16/17 at 11:15; Stop 04/16/17 at 11:16; Status DC Multivitamins (Thera M Plus) 1 tab DAILY PO Last administered on 04/19/17 07: 42; Start 04/16/17 at 13:00 Ascorbic Acid (Vitamin C) 500 mg DAILY PO Last administered on 04/19/17 07:42 ; Start 04/16/17 at 13:00 Sodium Chloride 110 meq/Potassium Chloride 60 meq/ Potassium Phosphate 15 mmol/ Magnesium Sulfate 15 meq/Calcium Gluconate 8 meq/ Multivitamins 10 ml/Chromium/ Copper/Manganese/ Seleni/Zn 1 ml/ Insulin Human Regular 15 unit/ Total Parenteral Nutrition/Amino Acids/Dextrose/ Fat Emulsion Intravenous 1,512 ml @ 63 mls/hr TPN CONT IV ; Start 04/16/17 at 22:00; Stop 04/16/17 at 22:00; Status DC Sodium Chloride 110 meq/Potassium Chloride 60 meq/ Potassium Phosphate 15 mmol/ Magnesium Sulfate 15 meq/Calcium Gluconate 8 meq/ Multivitamins 10 ml/Chromium/ Copper/Manganese/ Seleni/Zn 1 ml/ Insulin Human Regular 10 unit/ Total Parenteral Nutrition/Amino Acids/Dextrose/ Fat Emulsion Intravenous 1,512 ml @ 63 mls/hr TPN CONT IV Last administered on 04/16/17 21:27; Start 04/16/17 at 22:00; Stop 04/17/17 at 21:59; Status DC Sodium Chloride 110 meq/Potassium Chloride 60 meq/ Potassium Phosphate 15 mmol/ Magnesium Sulfate 15 meq/Calcium Gluconate 8 meq/ Multivitamins 10 ml/Chromium/ Copper/Manganese/ Seleni/Zn 1 ml/ Insulin Human Regular 10 unit/ Total Parenteral Nutrition/Amino Acids/Dextrose/ Fat Emulsion Intravenous 1,512 ml @ 63 mls/hr TPN CONT IV Last administered on 04/17/17 22:00; Start 04/17/17 at 22:00; Stop 04/18/17 at 21:59; Status DC Albumin Human 50 ml @ 50 mls/hr 1X ONCE IV Last administered on 04/17/17 19: 44; Start 04/17/17 at 19:30; Stop 04/17/17 at 20:29; Status DC Albumin Human 50 ml @ 50 mls/hr 1X ONCE IV Last administered on 04/18/17 00: 15; Start 04/17/17 at 21:30; Stop 04/17/17 at 22:29; Status DC Albumin Human 500 ml @ 125 mls/hr 1X ONCE IV Last administered on 04/18/17 11:19; Start 04/18/17 at 10:30; Stop 04/18/17 at 14:29; Status DC Sodium Chloride 110 meq/Potassium Chloride 60 meq/ Potassium Phosphate 15 mmol/ Magnesium Sulfate 15 meq/Calcium Gluconate 8 meq/ Multivitamins 10 ml/Chromium/ Copper/Manganese/ Seleni/Zn 1 ml/ Insulin Human Regular 10 unit/ Total Parenteral Nutrition/Amino Acids/Dextrose/ Fat Emulsion Intravenous 1,512 ml @ 63 mls/hr TPN CONT IV Last administered on 04/18/17 21:59; Start 04/18/17 at 22:00; Stop 04/19/17 at 21:59 Furosemide (Lasix) 40 mg 1X ONCE IVP Last administered on 04/18/17 19:24; Start 04/18/17 at 18:30; Stop 04/18/17 at 18:35; Status DC Albumin Human 250 ml @ 62.5 mls/hr 1X ONCE IV Last administered on 18:30; Start 04/18/17 at 18:30; Stop 04/18/17 at 22:29; Status DC Albuterol Sulfate (Ventolin Neb Soln) 2.5 mg PRN QID PRN NEB SHORTNESS OF BREATH Last administered on 04/18/17 23:37; Start 04/18/17 at 23:30 Ipratropium [place] (Atrovent) 0.5 mg RTQID NEB Last administered on 07:41; Start 04/19/17 at 08:00 Active Scripts Active Reported Flagyl (Metronidazole) 500 Mg Tablet 1 Tab PO BID Cefpodoxime Proxetil 200 Mg Tablet 1 Tab PO BID Ferrous Sulfate 325 Mg Tablet 1 Tab PO DAILY Lasix (Furosemide) 40 Mg Tablet 40 Mg PO QODAY Potassium Chloride 10 Meq Capsule.er 10 Meq PO QODAY Metoprolol Tartrate 25 Mg Tablet 12.5 Mg PO BID Atorvastatin Calcium 40 Mg Tablet 40 Mg PO HS Clopidogrel (Clopidogrel Bisulfate) 75 Mg Tablet 1 Tab PO DAILY Diclofenac Sodium 75 Mg Tablet.dr 75 Mg PO DAILY Ranitidine Hcl 150 Mg Tablet 1 Tab PO BID Aspirin 81 Mg Tab.chew 1 Tab PO DAILY Vitals/I & O Vital Sign - Last 24 Hours 04/18/17 04/18/17 04/18/17 04/18/17 09:00 09:05 09:45 10:00 Pulse 114 116 118 Resp 28 24 28 B/P (MAP) 118/47 (70) 80/48 (59) 111/53 (72) Pulse Ox 96 97 98 99 O2 Delivery Nasal Cannula Nasal Cannula Nasal Cannula Nasal Cannula O2 Flow Rate 4.0 4.0 4.0 4.0 04/18/17 04/18/17 04/18/17 04/18/17 10:30 10:45 11:00 12:00 Pulse 114 114 118 Resp 28 B/P (MAP) 101/47 (65) 110/59 (76) 98/43 (61) Pulse Ox 100 100 99 O2 Delivery Nasal Cannula Nasal Cannula Nasal Cannula Nasal Cannula O2 Flow Rate 4.0 4.0 4.0 4.0 04/18/17 04/18/17 04/18/17 04/18/17 12:00 12:00 13:00 14:00 Temp 99.2 99.2 Pulse 113 116 78 Resp 27 36 32 B/P (MAP) 85/43 (57) 86/61 (69) 81/45 (57) Pulse Ox 98 98 97 O2 Delivery Nasal Cannula Nasal Cannula Nasal Cannula O2 Flow Rate 4.0 4.0 4.0 4.0 04/18/17 04/18/17 04/18/17 04/18/17 14:04 15:00 15:04 15:52 Pulse 110 Resp 23 29 28 35 B/P (MAP) 85/44 (58) Pulse Ox 98 95 95 O2 Delivery Nasal Cannula Nasal Cannula Nasal Cannula O2 Flow Rate 4.0 4.0 4.0 04/18/17 04/18/17 04/18/17 04/18/17 16:00 16:00 16:00 16:22 Temp 98.5 98.5 Pulse 110 Resp 35 24 B/P (MAP) 84/41 (55) Pulse Ox 98 O2 Delivery Nasal Cannula Nasal Cannula O2 Flow Rate 4.0 4.0 4.0 04/18/17 04/18/17 04/18/17 04/18/17 17:00 18:00 19:00 20:00 Pulse 133 114 118 Resp 38 21 31 B/P (MAP) 92/57 (69) 83/47 (59) 87/47 (60) Pulse Ox 95 94 94 O2 Delivery Nasal Cannula Nasal Cannula Nasal Cannula O2 Flow Rate 4.0 4.0 4.0 4.0 04/18/17 04/18/17 04/18/17 04/18/17 20:00 20:00 20:53 21:00 Temp 98.4 98.4 Pulse 118 128 Resp 35 38 B/P (MAP) 78/62 (67) 100/52 (68) Pulse Ox 94 94 92 O2 Delivery Nasal Cannula Nasal Cannula Nasal Cannula Nasal Cannula O2 Flow Rate 4.0 4.0 4.0 4.0 04/18/17 04/18/17 04/18/17 04/18/17 21:53 22:00 23:00 23:34 Pulse 122 116 Resp 31 29 B/P (MAP) 103/51 (68) 94/51 (65) Pulse Ox 94 94 95 96 O2 Delivery Nasal Cannula Nasal Cannula Nasal Cannula High Flow Nasal Cannula O2 Flow Rate 4.0 4.0 4.0 7.0 04/19/17 04/19/17 04/19/17 04/19/17 00:00 00:00 00:01 01:00 Temp 98.5 98.5 Pulse 124 120 Resp 35 29 B/P (MAP) 101/50 (67) 109/65 (80) Pulse Ox 98 96 O2 Delivery Nasal Cannula Nasal Cannula Nasal Cannula O2 Flow Rate 4.0 4.0 4.0 4.0 04/19/17 04/19/17 04/19/17 04/19/17 02:00 03:00 04:00 04:00 Temp 98.5 98.5 Pulse 114 116 118 Resp 30 39 35 B/P (MAP) 98/51 (67) 106/56 (73) 92/48 (63) Pulse Ox 98 97 93 O2 Delivery Nasal Cannula Nasal Cannula Nasal Cannula Nasal Cannula O2 Flow Rate 4.0 4.0 4.0 4.0 04/19/17 04/19/17 04/19/17 04/19/17 04:00 04:53 05:00 05:23 Pulse 114 Resp 39 B/P (MAP) 99/63 (75) Pulse Ox 98 92 98 O2 Delivery Nasal Cannula Nasal Cannula Nasal Cannula O2 Flow Rate 4.0 4.0 4.0 4.0 04/19/17 04/19/17 04/19/17 04/19/17 06:00 07:00 07:42 07:42 Pulse 113 120 Resp 30 22 26 B/P (MAP) 82/55 (64) 134/74 (94) Pulse Ox 93 92 96 90 O2 Delivery Nasal Cannula Nasal Cannula High Flow Nasal Cannula Nasal Cannula O2 Flow Rate 5.0 5.0 7.0 5.0 04/19/17 07:52 Pulse 115 B/P (MAP) 105/58 Intake and Output 04/18/17 04/18/17 04/19/17 15:00 23:00 07:00 Intake Total 950 ml 796 ml 613 ml Output Total 2410 ml 825 ml 340 ml Balance -1460 ml -29 ml 273 ml DANNY MEZA MD Apr 19, 2017 08:55
[2017-04-19] MEDS: FUROSEMIDE 40 MG/4 ML VIAL. IVP SCH (09:30)
[2017-04-19] MEDS: ENOXAPARIN 40 MG/0.4 ML SYRINGE. SQ SCH (09:31)
--- NOTE | 2017-04-19 09:44 | PDOC ---
Provider Note Provider Note remains tachypneic at rest- will add roxanol trial, rest same- off levophed for now MILENA MCMILLAN MD Apr 19, 2017 09:44
[2017-04-19] MEDS ORDERED: TEMAZEPAM 15 MG CAPSULE PO PRN (09:45)
--- NOTE | 2017-04-19 11:25 | PDOC ---
PULMONARY PROGRESS NOTES Subjective remains tachypneic levophed Vitals Vital Signs Date Time Temp Pulse Resp B/P (MAP) Pulse Ox O2 Delivery O2 Flow Rate FiO2 04/19/17 10:00 116 28 84/44 (57) 89 Nasal Cannula 5.0 04/19/17 08:00 98.3 98.3 ROS: No Nausea, No Chest Pain, No Abdominal Pain, No Increase Cough General: Alert, Mild Distress Lungs: Wheezing (faint wheezes) Cardiovascular: S1, S2 Abdomen: Soft, Other (colostomy/ drains in place) Neuro Exam: Alert Extremities: Other (1+edema) Skin: Warm Labs Laboratory Tests Test 04/17/17 17:47 04/17/17 18:25 04/17/17 20:24 04/17/17 23:25 Glucose (Fingerstick) 185 mg/dL (70-99) 203 mg/dL (70-99) 189 mg/dL (70-99) Sodium Level 137 mmol/L (136-145) Potassium Level 4.4 mmol/L (3.5-5.1) Chloride Level 102 mmol/L (98-107) Carbon Dioxide Level 26 mmol/L (21-32) Anion Gap 9 (6-14) Blood Urea Nitrogen 22 mg/dL (7-20) Creatinine 0.7 mg/dL (0.6-1.0) Estimated GFR (Cockcroft-Gault) 82.5 Glucose Level 201 mg/dL (70-99) Calcium Level 7.7 mg/dL (8.5-10.1) Phosphorus Level 3.4 mg/dL (2.6-4.7) Magnesium Level 2.1 mg/dL (1.8-2.4) Test 04/17/17 23:30 04/18/17 05:31 04/18/17 12:10 04/18/17 22:52 Sodium Level 137 mmol/L (136-145) 137 mmol/L (136-145) Potassium Level 4.5 mmol/L (3.5-5.1) 4.4 mmol/L (3.5-5.1) Chloride Level 102 mmol/L (98-107) 104 mmol/L (98-107) Carbon Dioxide Level 27 mmol/L (21-32) 21 mmol/L (21-32) Anion Gap 8 (6-14) 12 (6-14) Blood Urea Nitrogen 22 mg/dL (7-20) 21 mg/dL (7-20) Creatinine 0.6 mg/dL (0.6-1.0) 0.6 mg/dL (0.6-1.0) Estimated GFR (Cockcroft-Gault) 98.5 98.5 Glucose Level 203 mg/dL (70-99) 135 mg/dL (70-99) Calcium Level 7.3 mg/dL (8.5-10.1) 8.0 mg/dL (8.5-10.1) Magnesium Level 2.2 mg/dL (1.8-2.4) Glucose (Fingerstick) 183 mg/dL (70-99) 195 mg/dL (70-99) Test 04/19/17 05:45 Glucose (Fingerstick) 153 mg/dL (70-99) Laboratory Tests Test 04/18/17 12:10 04/18/17 22:52 04/19/17 05:45 Glucose (Fingerstick) 183 mg/dL (70-99) 195 mg/dL (70-99) 153 mg/dL (70-99) Medications Active Scripts Medications Dose Route/Sig Max Daily Dose Days Date Category Flagyl (Metronidazole) 500 Mg Tablet 1 Tab PO BID 03/01/17 Reported Cefpodoxime Proxetil 200 Mg Tablet 1 Tab PO BID 03/01/17 Reported Ferrous Sulfate 325 Mg Tablet 1 Tab PO DAILY 02/23/17 Reported Lasix (Furosemide) 40 Mg Tablet 40 Mg PO QODAY 02/23/17 Reported Potassium Chloride 10 Meq Capsule.er 10 Meq PO QODAY 02/23/17 Reported Metoprolol Tartrate 25 Mg Tablet 12.5 Mg PO BID 01/31/17 Reported Atorvastatin Calcium 40 Mg Tablet 40 Mg PO HS 01/31/17 Reported Clopidogrel (Clopidogrel Bisulfate) 75 Mg Tablet 1 Tab PO DAILY 08/24/15 Reported Diclofenac Sodium 75 Mg Tablet.dr 75 Mg PO DAILY 12/21/14 Reported Ranitidine Hcl 150 Mg Tablet 1 Tab PO BID 12/21/14 Reported Aspirin 81 Mg Tab.chew 1 Tab PO DAILY 04/15/14 Reported Comments CXR 04/18 NO CHANGE Impression . 1. [id number] respiratory failure, MULTIFACTORIAL/ Persistent low BP/ on levo/ SOA despite colloids/ lasix 2. Status post laparoscopic converted to open exploration for extensive lysis of adhesion, removal of old mesh, subtotal colectomy, small bowel resection and incisional hernia repair 3. Obesity, body mass index of 35. 4. Leukocytosis. 5. Enterocutaneous fistula. Abdominal abscess, measuring 6.4 x 4.9 cm. s/p drain 03/12. Klebsiella ( R to Zosyn, S Cipro/Levo), VRE (R PCN) and PSAE ( R to ticarcillin only otherwise sensitive, S Cipro/Levo) and C tropicalis -h/o Strep anginosis and Bacteroides 6. Fever RESOLVED 7. Abdominal abscess. 8. Ventral hernia, status post repair. 9. Bilateral effusions due to low oncotic pressure/ , small effusions on ct 10. Anxiety disorder Palliative Care Spoke with patient and son Chris. Patient off BiPap ---feels better. RR 32-34. Reviewed conversations patient and son had with physicians. Patient wants to continue to try to get better. Son Chris supportive of her wish. Understands that this will need to be evaluated closely as respiratory condition could decline rapidly. Encouraged patient and son to have conversation about any limitations of care that she would want. They understand that recovery could be a long process. Will continue to follow closely. Chris will be at work tomorrow but available by phone if anything changes. Plan . AGREE WITH ROXANOL/ CXR UNCHANGED 04/18 CONTINUE LEVOPHED WILL AVOID BIPAP DUE TO DAMAGE TO SKIN AT BRIDGE OF NOSE REPEAT CT ABDOMEN/PELVIS REVIEWED/ SMALL EFFUSIONS LASIX PRN/ COLLOID PRN VENOUS DOPPLER NEGATIVE/ CT NEGATIVE FOR PE ANXIETY/ ON SCHEDULED ATIVAN D/W RN DNR GOALS SHOULD BE COMFORT STACI CORRAL MD Apr 19, 2017 11:25
[2017-04-19] MEDS: MORPHINE SULFATE 20 MG/ML CONC SOLUTION. SL PRN ×3 (12:12→22:20)
[2017-04-19] MEDS: TPN PER PHARMACY MC PRN (12:36)
--- NOTE | 2017-04-19 13:05 | PDOC ---
SURGICAL PROGRESS NOTE Subjective back on levo tachypneic Vital Signs Vital Signs Date Time Temp Pulse Resp B/P (MAP) Pulse Ox O2 Delivery O2 Flow Rate FiO2 04/19/17 13:00 32 95 Nasal Cannula 7.0 04/19/17 10:00 116 84/44 (57) 04/19/17 08:00 98.3 98.3 I&O Intake and Output 04/19/17 07:00 Intake Total 2459 ml Output Total 3575 ml Balance -1116 ml Intake Oral 650 ml IV Total 1809 ml Output Urine Total 3325 ml Stool Total 250 ml Drainage Total 0 ml General: Alert, Cooperative, No acute distress Abdomen: Soft, No tenderness Labs Laboratory Tests Test 04/17/17 17:47 04/17/17 18:25 04/17/17 20:24 04/17/17 23:25 Glucose (Fingerstick) 185 mg/dL (70-99) 203 mg/dL (70-99) 189 mg/dL (70-99) Sodium Level 137 mmol/L (136-145) Potassium Level 4.4 mmol/L (3.5-5.1) Chloride Level 102 mmol/L (98-107) Carbon Dioxide Level 26 mmol/L (21-32) Anion Gap 9 (6-14) Blood Urea Nitrogen 22 mg/dL (7-20) Creatinine 0.7 mg/dL (0.6-1.0) Estimated GFR (Cockcroft-Gault) 82.5 Glucose Level 201 mg/dL (70-99) Calcium Level 7.7 mg/dL (8.5-10.1) Phosphorus Level 3.4 mg/dL (2.6-4.7) Magnesium Level 2.1 mg/dL (1.8-2.4) Test 04/17/17 23:30 04/18/17 05:31 04/18/17 12:10 04/18/17 22:52 Sodium Level 137 mmol/L (136-145) 137 mmol/L (136-145) Potassium Level 4.5 mmol/L (3.5-5.1) 4.4 mmol/L (3.5-5.1) Chloride Level 102 mmol/L (98-107) 104 mmol/L (98-107) Carbon Dioxide Level 27 mmol/L (21-32) 21 mmol/L (21-32) Anion Gap 8 (6-14) 12 (6-14) Blood Urea Nitrogen 22 mg/dL (7-20) 21 mg/dL (7-20) Creatinine 0.6 mg/dL (0.6-1.0) 0.6 mg/dL (0.6-1.0) Estimated GFR (Cockcroft-Gault) 98.5 98.5 Glucose Level 203 mg/dL (70-99) 135 mg/dL (70-99) Calcium Level 7.3 mg/dL (8.5-10.1) 8.0 mg/dL (8.5-10.1) Magnesium Level 2.2 mg/dL (1.8-2.4) Glucose (Fingerstick) 183 mg/dL (70-99) 195 mg/dL (70-99) Test 04/19/17 05:45 04/19/17 12:10 Glucose (Fingerstick) 153 mg/dL (70-99) 234 mg/dL (70-99) Laboratory Tests Test 04/18/17 22:52 04/19/17 05:45 04/19/17 12:10 Glucose (Fingerstick) 195 mg/dL (70-99) 153 mg/dL (70-99) 234 mg/dL (70-99) Problem List Problems Medical Problems: (1) Abdominal abscess Status: Acute (2) Abdominal pain Status: Acute Assessment/Plan supportive care Problems: DYLON OCHOA APRN Apr 19, 2017 13:05
[2017-04-19] MEDS: INSULIN DETEMIR 300 UNITS/3 ML INSULN.PEN. SQ SCH (21:40)
[2017-04-19] MEDS ORDERED: TOTAL PARENTERAL NUTRITION IV SCH ×11 (22:00)
[2017-04-19] MEDS ORDERED: [UNRECOGNIZED DRUG - OTHER] IV SCH ×11 (22:00)
[2017-04-19] MEDS ORDERED: DEXTROSE 70% IV SCH ×11 (22:00)
[2017-04-19] MEDS ORDERED: AMINO ACIDS IV SCH ×11 (22:00)
[2017-04-20] VITALS (21 sets, daily range): BP systolic 80–124; BP diastolic 45–76
[2017-04-20] MEDS: CEFEPIME HCL IV Push 1 GM VIAL. IVP SCH ×3 (05:34→22:23)
[2017-04-20] MEDS: INSULIN ASPART 300 UNITS/3 ML INSULN.PEN SQ SCH ×4 (05:34→18:00)
[2017-04-20] MEDS: MORPHINE SULFATE 20 MG/ML CONC SOLUTION. SL PRN ×3 (05:46→23:09)
[2017-04-20] MEDS: ALBUTEROL SULFATE 2.5 MG/3 ML NEBU. NEB PRN ×3 (07:09→16:21)
[2017-04-20] MEDS: IPRATROPIUM BROMIDE 0.5 MG/2.5 ML NEBU. NEB SCH ×4 (07:10→21:01)
--- NOTE | 2017-04-20 07:29 | PDOC ---
Infectious Disease Note Subjective Subjective c/o sob, pain in abd ROS ROS no n/v/d/ Vital Sign Vital Signs Vital Signs Date Time Temp Pulse Resp B/P (MAP) Pulse Ox O2 Delivery O2 Flow Rate FiO2 04/20/17 07:10 89 Nasal Cannula 6.0 04/20/17 06:00 114 44 91/58 (69) 04/20/17 04:00 98.1 98.1 Physical Exam PHYSICAL EXAM GENERAL: NAD, Alert HEENT: PERRL, OC/OP NECK: Supple, no JVD, no LN LUNGS: Clear HEART: S1S2, no gallop, no murmur ABD: Soft, NT, no organomegaly, no rebound,, wounds ok EXT: No edema, no cyanosis [employer]ER: Alert, oriented x 3, no focal neurologic deficit SKIN: No rash IV: ok Labs Lab Laboratory Tests Test 04/19/17 12:10 04/19/17 17:24 04/20/17 01:49 04/20/17 05:30 Glucose (Fingerstick) 234 mg/dL (70-99) 214 mg/dL (70-99) 198 mg/dL (70-99) 174 mg/dL (70-99) Objective Assessment s/p lap converted to open exploration, JAIRO, removal of infected mesh, subtotal colectomy, SBR and hernia repair, 03/24 Leukocytosis, improved EC fistula Fever - better Abdominal abscess, measuring 6.4 x 4.9 cm. s/p drain 03/12. Klebsiella ( R to Zosyn, S Cipro/Levo), VRE (R PCN) and PSAE ( R to ticarcillin only otherwise sensitive, S Cipro/Levo) and C tropicalis h/o Strep anginosis and Bacteroides Ventral hernia DM HTN PCN allergy/amox also - hives and swelling Plan Plan of Care Repeat BC from 04/12 NGTD Cont Zyvox (04/11), Flagyl and Cefepime 04/07,, f/u cultures and monitor CBC/temp Supportive care DNR/DNI Guarded prognosis overall given resp failure/deconditioning SANDRA RODNEY MD Apr 20, 2017 07:29
--- NOTE | 2017-04-20 08:50 | PDOC ---
PROGRESS NOTES Subjective Subjective HPI - f/u of Thrombocytosis/anemia ROS -has dyspnea Objective Objective Vital Signs Date Time Temp Pulse Resp B/P (MAP) Pulse Ox O2 Delivery O2 Flow Rate FiO2 04/20/17 07:10 89 Nasal Cannula 6.0 04/20/17 06:00 114 44 91/58 (69) 04/20/17 04:00 98.1 98.1 Intake and Output 04/20/17 07:00 Intake Total 2545 ml Output Total 1345 ml Balance 1200 ml Intake Oral 420 ml IV Total 2125 ml Output Urine Total 1170 ml Stool Total 175 ml Drainage Total 0 ml Physical Exam Heart: Regular rate General: mild distress Assessment Assessment Problems Medical Problems: (1) Abdominal abscess Status: Acute (2) Abdominal pain Status: Acute A/P: 1. Thrombocytosis reactive - previously thrombocytopenia. Plt count now 428. 2. Anemia. Most likely multifactorial. Iron studies are suggestive of anemia of chronic disease. /B12 normal. Hb 9.8 monitor and transfuse as needed. 3. Abscess. Management as per primary/surgery/ID 4. Status post laparoscopic converted to open exploration for extensive lysis of adhesion, removal of old mesh, subtotal colectomy, small bowel resection and incisional hernia repair. 03/24 5. [id number] respiratory failure. Persistent dyspnea/ now off BIPAP - appreciate pulm f/u. Appreciate palliative care eval, pt now DNR No significant change in hematologic parameters. No further recommendations. Please call if needed. Comment Review of Relevant I have reviewed the following items chito (where applicable) has been applied. Labs Laboratory Tests Test 04/18/17 12:10 04/18/17 22:52 04/19/17 05:45 04/19/17 12:10 Glucose (Fingerstick) 183 mg/dL (70-99) 195 mg/dL (70-99) 153 mg/dL (70-99) 234 mg/dL (70-99) Test 04/19/17 17:24 04/20/17 01:49 04/20/17 05:30 Glucose (Fingerstick) 214 mg/dL (70-99) 198 mg/dL (70-99) 174 mg/dL (70-99) Laboratory Tests Test 04/19/17 12:10 04/19/17 17:24 04/20/17 01:49 04/20/17 05:30 Glucose (Fingerstick) 234 mg/dL (70-99) 214 mg/dL (70-99) 198 mg/dL (70-99) 174 mg/dL (70-99) Microbiology 04/12/17 Blood Culture - Final, Complete NO GROWTH AFTER 5 DAYS 04/06/17 Fungal Culture - Preliminary, Resulted 04/06/17 Fungal Culture Result 1 - Preliminary, Resulted 03/09/17 Urine Culture - Final, Complete 03/09/17 Urine Culture Result 1 (KULDEEP) - Final, Complete 03/12/17 Fungal Culture - Final, Complete 03/12/17 Fungal Culture Result 1 - Final, Complete Medications Current Medications Ondansetron HCl (Zofran) 4 mg 1X ONCE IV Last administered on 03/09/17 08:30 ; Start 03/09/17 at 08:15; Stop 03/09/17 at 08:16; Status DC Iohexol (Omnipaque 300 Mg/ml) 75 ml 1X ONCE IV Last administered on 03/09/17 08:50; Start 03/09/17 at 08:45; Stop 03/09/17 at 08:46; Status DC Info (Do NOT chart on this entry -- for MONITORING) 1 each PRN DAILY PRN MC SEE COMMENTS; Start 03/09/17 at 08:45; Stop 03/11/17 at 08:44; Status DC Ceftriaxone Sodium 50 ml @ 100 mls/hr 1X ONCE IV ; Start 03/09/17 at 09:30; Stop 03/09/17 at 09:55; Status DC Sodium Chloride 1,000 ml @ 1,000 mls/hr 1X ONCE IV Last administered on 09:55; Start 03/09/17 at 10:00; Stop 03/09/17 at 10:59; Status DC Ondansetron HCl (Zofran) 4 mg PRN Q8HRS PRN IV NAUSEA/VOMITING; Start 03/09/17 at 10:30; Stop 03/10/17 at 10:29; Status DC Meropenem 500 mg/ Sodium Chloride 50 ml @ 100 mls/hr Q8HRS IV Last administered on 03/16/17 06:09; Start 03/09/17 at 13:00; Stop 03/16/17 at 12: 59; Status DC Acetaminophen (Tylenol) 650 mg PRN QID PRN PO MILD PAIN / TEMP Last administered on 04/18/17 12:12; Start 03/09/17 at 20:30 Aspirin (Children'S Aspirin) 81 mg DAILY PO Last administered on 04/19/17 07: 42; Start 03/10/17 at 15:00 Clopidogrel Bisulfate (Plavix) 75 mg DAILY PO Last administered on 03/19/17 10:00; Start 03/10/17 at 15:00; Stop 03/22/17 at 09:10; Status DC Ferrous Sulfate (Feosol) 325 mg DAILY PO Last administered on 04/19/17 07:42 ; Start 03/10/17 at 15:00 Metoprolol Tartrate (Lopressor) 12.5 mg BID PO Last administered on 03/10/17 16:01; Start 03/10/17 at 15:00; Stop 03/10/17 at 21:01; Status DC Diclofenac Sodium (Voltaren) 75 mg DAILY PO Last administered on 03/23/17 09: 23; Start 03/10/17 at 14:30; Stop 03/29/17 at 10:50; Status DC Famotidine (Pepcid) 20 mg QHS PO Last administered on 03/24/17 21:20; Start 03/10/17 at 21:00; Stop 03/26/17 at 09:35; Status DC Glimepiride (Amaryl) 1 mg DAILY PO Last administered on 03/13/17 09:25; Start 03/11/17 at 15:00; Stop 03/13/17 at 17:02; Status DC Sodium Chloride 1,000 ml @ 100 mls/hr 1X ONCE IV Last administered on 21:00; Start 03/10/17 at 21:00; Stop 03/11/17 at 06:59; Status DC Lidocaine/Sodium Bicarbonate (Buffered Lidocaine 1%) 20 ml STK-MED ONCE IJ ; Start 03/12/17 at 13:05; Stop 03/12/17 at 13:06; Status DC Fentanyl Citrate (Fentanyl 2ml Vial) 100 mcg STK-MED ONCE .ROUTE ; Start at 13:20; Stop 03/12/17 at 13:21; Status DC Midazolam HCl (Versed) 2 mg STK-MED ONCE .ROUTE ; Start 03/12/17 at 13:20; Stop 03/12/17 at 13:21; Status DC Flumazenil (Romazicon) 0.5 mg STK-MED ONCE IV ; Start 03/12/17 at 13:20; Stop 03/12/17 at 13:21; Status DC Naloxone HCl (Narcan) 0.4 mg STK-MED ONCE .ROUTE ; Start 03/12/17 at 13:20; Stop 03/12/17 at 13:21; Status DC Lidocaine/Sodium Bicarbonate (Buffered Lidocaine 1%) 20 ml 1X ONCE IJ Last administered on 03/12/17 13:50; Start 03/12/17 at 13:30; Stop 03/12/17 at 13:33 ; Status DC Midazolam HCl (Versed) 2 mg 1X ONCE IV Last administered on 03/12/17 13:50; Start 03/12/17 at 13:30; Stop 03/12/17 at 13:33; Status DC Fentanyl Citrate (Fentanyl 2ml Vial) 100 mcg 1X ONCE IV Last administered on 03/12/17 13:50; Start 03/12/17 at 13:30; Stop 03/12/17 at 13:33; Status DC Lactobacillus Rhamnosus (Culturelle) 1 cap BID PO Last administered on 21:20; Start 03/12/17 at 21:00; Stop 03/25/17 at 21:06; Status DC Acetaminophen/ Hydrocodone Bitart (Lortab 7.5/325) 1 tab PRN Q6HRS PRN PO MODERATE - SEVERE PAIN Last administered on 04/19/17 18:31; Start 03/12/17 at 18:15 Ondansetron HCl (Zofran) 4 mg PRN Q6HRS PRN IV NAUSEA/VOMITING, 1ST CHOICE Last administered on 04/17/17 03:45; Start 03/13/17 at 09:00 Furosemide (Lasix) 40 mg QODAY PO Last administered on 03/22/17 09:39; Start 03/14/17 at 09:00; Stop 03/26/17 at 09:00; Status DC Glimepiride (Amaryl) 1 mg DAILY08 PO Last administered on 03/22/17 09:40; Start 03/14/17 at 08:00; Stop 03/23/17 at 08:52; Status DC Linezolid (Zyvox) 600 mg BID PO Last administered on 03/24/17 21:20; Start 03/14/17 at 13:15; Stop 03/25/17 at 10:49; Status DC Meropenem (Merrem) 500 mg Q8HRS IVP Last administered on 03/30/17 06:04; Start 03/16/17 at 14:00; Stop 03/30/17 at 07:49; Status DC Iohexol (Omnipaque 240 Mg/ml) 50 ml STK-MED ONCE .ROUTE ; Start 03/19/17 at 13: 11; Stop 03/19/17 at 13:12; Status DC Iohexol (Omnipaque 240 Mg/ml) 10 ml 1X ONCE IJ Last administered on 14:07; Start 03/19/17 at 14:00; Stop 03/19/17 at 14:01; Status DC Info (Do NOT chart on this entry -- for MONITORING) 1 each PRN DAILY PRN MC SEE COMMENTS; Start 03/19/17 at 14:00; Stop 03/21/17 at 13:59; Status DC Iohexol (Omnipaque 240 Mg/ml) 50 ml STK-MED ONCE .ROUTE ; Start 03/19/17 at 13: 55; Stop 03/19/17 at 13:56; Status DC Fluconazole (Diflucan) 200 mg DAILY PO Last administered on 03/23/17 09:24; Start 03/22/17 at 09:30; Stop 03/25/17 at 10:51; Status DC Metoprolol Succinate (Toprol Xl) 12.5 mg DAILY PO Last administered on 08:04; Start 03/23/17 at 09:00 Glimepiride (Amaryl) 0.5 mg DAILY08 PO ; Start 03/24/17 at 08:00; Stop at 13:05; Status DC Morphine Sulfate 1 mg PRN Q10MIN PRN IV SEVERE PAIN; Start 03/26/17 at 07:00; Stop 03/26/17 at 07:00; Status DC Ringer's Solution 1,000 ml @ 30 mls/hr Q24H IV ; Start 03/26/17 at 07:00; Stop 03/26/17 at 07:00; Status DC Lidocaine HCl (Xylocaine-Mpf 1% Vial) 2 ml PRN 1X PRN ID PRIOR TO IV START; Start 03/26/17 at 07:00; Stop 03/26/17 at 07:00; Status DC Hydromorphone HCl (Dilaudid) 0.5 mg PRN Q10MIN PRN IV SEV PAIN, Second choice; Start 03/26/17 at 07:00; Stop 03/27/17 at 06:59; Status Cancel Prochlorperazine Edisylate (Compazine) 5 mg PACU PRN PRN IV NAUSEA, MRX1 Last administered on 03/25/17 07:45; Start 03/26/17 at 07:00; Stop 03/26/17 at 07 :00; Status DC Morphine Sulfate 1 mg PRN Q10MIN PRN IV SEVERE PAIN; Start 03/24/17 at 07:45; Stop 03/25/17 at 07:44; Status DC Ringer's Solution 1,000 ml @ 30 mls/hr Q24H IV Last administered on 14:15; Start 03/24/17 at 07:32; Stop 03/24/17 at 19:31; Status DC Lidocaine HCl (Xylocaine-Mpf 1% Vial) 2 ml 1X PRN PRN ID IV START; Start 03/24 at 07:45; Stop 03/25/17 at 07:44; Status DC Hydromorphone HCl (Dilaudid) 0.5 mg PRN Q10MIN PRN IV SEV PAIN, Second choice; Start 03/24/17 at 07:45; Stop 03/25/17 at 07:44; Status DC Prochlorperazine Edisylate (Compazine) 5 mg PACU PRN PRN IV NAUSEA, MRX1; Start 03/24/17 at 07:45; Stop 03/25/17 at 07:44; Status DC Bupivacaine HCl/ Epinephrine Bitart (Sensorcain-Mpf Epi 0.5%-[id number]) 30 ml STK -MED ONCE .ROUTE Last administered on 03/24/17 15:56; Start 03/24/17 at 10: 28; Stop 11/18/17 at 10:29; Status DC Neostigmine Methylsulfate (Bloxiverz) 10 mg STK-MED ONCE .ROUTE ; Start at 14:38; Stop 03/24/17 at 14:39; Status DC Rocuronium [place] (Zemuron) 50 mg STK-MED ONCE .ROUTE ; Start 03/24/17 at 14: 38; Stop 03/24/17 at 14:39; Status DC Fentanyl Citrate (Fentanyl 2ml Vial) 100 mcg STK-MED ONCE .ROUTE ; Start at 14:38; Stop 03/24/17 at 14:39; Status DC Phenylephrine HCl 1 mg STK-MED ONCE IV ; Start 03/24/17 at 14:40; Stop at 14:41; Status DC Lidocaine HCl (Lidocaine Pf 2% Vial) 5 ml STK-MED ONCE .ROUTE ; Start 03/24/17 at 14:40; Stop 03/24/17 at 14:41; Status DC Dexamethasone Sodium Phosphate (Decadron) 20 mg STK-MED ONCE .ROUTE ; Start at 14:40; Stop 03/24/17 at 14:41; Status DC Ondansetron HCl (Zofran) 4 mg STK-MED ONCE .ROUTE ; Start 03/24/17 at 14:40; Stop 03/24/17 at 14:41; Status DC Propofol 20 ml @ As Directed STK-MED ONCE IV ; Start 03/24/17 at 14:40; Stop 03/24/17 at 14:41; Status DC Glycopyrrolate (Robinul) 1 mg STK-MED ONCE .ROUTE ; Start 03/24/17 at 15:11; Stop 03/24/17 at 15:12; Status DC Rocuronium [place] (Zemuron) 50 mg STK-MED ONCE .ROUTE ; Start 03/24/17 at 15: 53; Stop 03/24/17 at 15:54; Status DC Fentanyl Citrate (Fentanyl 2ml Vial) 100 mcg STK-MED ONCE .ROUTE ; Start at 16:01; Stop 03/24/17 at 16:02; Status DC Morphine Sulfate 10 mg STK-MED ONCE .ROUTE ; Start 03/24/17 at 16:02; Stop at 16:03; Status DC Albumin Human 500 ml @ As Directed STK-MED ONCE IV ; Start 03/24/17 at 17:03; Stop 03/24/17 at 17:04; Status DC Phenylephrine HCl (Corky-Synephrine Inj) 10 mg STK-MED ONCE .ROUTE ; Start at 17:27; Stop 03/24/17 at 17:28; Status DC Rocuronium [place] (Zemuron) 100 mg STK-MED ONCE .ROUTE ; Start 03/24/17 at 17: 57; Stop 03/24/17 at 17:58; Status DC Enoxaparin Sodium (Lovenox 40mg Syringe) 40 mg Q24H SQ Last administered on 20:51; Start 03/24/17 at 20:45; Stop 03/26/17 at 19:34; Status DC Sodium Chloride (Normal Saline Flush) 3 ml QSHIFT PRN IV AFTER MEDS AND BLOOD DRAWS; Start 03/24/17 at 20:45 Ringer's Solution 1,000 ml @ 100 mls/hr Q10H IV Last administered on 12:32; Start 03/24/17 at 20:43; Stop 03/25/17 at 16:52; Status DC Naloxone HCl (Narcan) 0.4 mg PRN Q2MIN PRN IV SEE INSTRUCTIONS; Start at 20:45 Sodium Chloride 1,000 ml @ 25 mls/hr Q24H IV Last administered on 03/27/17 12:08; Start 03/24/17 at 20:43; Stop 04/15/17 at 10:40; Status DC Hydromorphone HCl 30 ml @ 0 mls/hr CONT PRN PRN IV PROTOCOL Last administered on 03/24/17 23:16; Start 03/24/17 at 20:45 Prochlorperazine Edisylate (Compazine) 5 mg PRN Q4HRS PRN IV NAUSEA/VOMITING, 2ND CHOICE; Start 03/25/17 at 07:45 Pantoprazole Sodium (PROTONIX VIAL for IV PUSH) 40 mg DAILYAC IVP Last administered on 04/19/17 07:43; Start 03/25/17 at 10:15 Linezolid 300 ml @ 300 mls/hr Q12HR IV Last administered on 03/26/17 20:54; Start 03/25/17 at 11:00; Stop 03/27/17 at 08:05; Status DC Fluconazole/ Sodium Chloride 100 ml @ 100 mls/hr Q24H IV Last administered on 04/07/17 11:52; Start 03/25/17 at 11:00; Stop 04/07/17 at 13:39; Status DC Dextrose/Lactated Ringer's 1,000 ml @ 75 mls/hr [id number] IV Last administered on 04/03/17 08:54; Start 03/25/17 at 17:00; Stop 04/04/17 at 09:23; Status DC Famotidine (Pepcid Vial) 40 mg QHS IVP Last administered on 03/28/17 21:35; Start 03/25/17 at 21:00; Stop 03/29/17 at 08:02; Status DC Lorazepam (Ativan) 0.5 mg 1X ONCE IV ; Start 03/26/17 at 07:00; Stop at 07:01; Status Cancel Lorazepam (Ativan) 0.5 mg PRN Q8HRS PRN PO ANXIETY / AGITATION; Start at 07:00; Status Cancel Furosemide (Lasix) 40 mg 1X ONCE IVP Last administered on 03/26/17 09:54; Start 03/26/17 at 09:00; Stop 03/26/17 at 09:01; Status DC Furosemide (Lasix) 20 mg DAILY IVP Last administered on 03/30/17 09:29; Start 03/27/17 at 09:00; Stop 03/31/17 at 12:22; Status DC Digoxin (Lanoxin) 250 mcg 1X ONCE IV Last administered on 03/26/17 15:06; Start 03/26/17 at 15:15; Stop 03/26/17 at 15:16; Status DC Iohexol (Omnipaque 300 Mg/ml) 75 ml 1X ONCE IV Last administered on 16:41; Start 03/26/17 at 16:45; Stop 03/26/17 at 16:46; Status DC Info (Do NOT chart on this entry -- for MONITORING) 1 each PRN DAILY PRN MC SEE COMMENTS; Start 03/26/17 at 16:45; Stop 03/28/17 at 16:44; Status DC Norepinephrine Bitartrate 250 ml @ As Directed STK-MED ONCE IV ; Start at 17:42; Stop 03/26/17 at 17:43; Status DC Norepinephrine Bitartrate 250 ml @ 0 mls/hr CONT PRN IV SEE I/O RECORD Last administered on 03/26/17 18:01; Start 03/26/17 at 18:00; Stop 04/04/17 at 09 :57; Status DC Enoxaparin Sodium (Lovenox Per Pharmacy Treatment Dosing) 1 each PRN DAILY PRN MC SEE COMMENTS; Start 03/26/17 at 19:30; Stop 03/28/17 at 12:38; Status DC Enoxaparin Sodium (Lovenox 80mg Syringe) 80 mg Q12HR SQ Last administered on 21:51; Start 03/26/17 at 20:00; Stop 03/28/17 at 15:36; Status DC Daptomycin 460 mg/ Sodium Chloride 50 ml @ 100 mls/hr Q24H IV Last administered on 04/11/17 09:41; Start 03/27/17 at 09:00; Stop 04/12/17 at 07: 49; Status DC Digoxin (Lanoxin) 250 mcg 1X ONCE IV Last administered on 03/27/17 12:09; Start 03/27/17 at 12:00; Stop 03/27/17 at 12:01; Status DC Insulin Detemir (Levemir) 5 units QHS SQ Last administered on 04/04/17 21:30 ; Start 03/27/17 at 21:00; Stop 04/05/17 at 09:34; Status DC Albumin Human 100 ml @ 100 mls/hr Q8H IV Last administered on 03/29/17 00:42 ; Start 03/28/17 at 09:00; Stop 03/29/17 at 01:59; Status DC Lorazepam (Ativan) 1 mg PRN Q6HRS PRN PO ANXIETY / AGITATION Last administered on 04/07/17 05:43; Start 03/28/17 at 16:00; Stop 04/07/17 at 16:34; Status DC Iohexol (Omnipaque 300 Mg/ml) 75 ml 1X ONCE IV Last administered on 16:00; Start 03/28/17 at 16:00; Stop 03/28/17 at 16:02; Status DC Info (Do NOT chart on this entry -- for MONITORING) 1 each PRN DAILY PRN MC SEE COMMENTS; Start 03/28/17 at 16:15; Stop 03/30/17 at 16:14; Status DC Fentanyl Citrate (Fentanyl 2ml Vial) 50 mcg PRN Q4HRS PRN IV PAIN Last administered on 04/19/17 04:53; Start 03/29/17 at 09:45 Ciprofloxacin/ Dextrose 200 ml @ 200 mls/hr Q12HR IV Last administered on 08:58; Start 03/30/17 at 09:00; Stop 04/04/17 at 10:45; Status DC Lorazepam (Ativan) 0.5 mg Q12HR PO Last administered on 04/12/17 22:14; Start 03/30/17 at 21:00; Stop 04/13/17 at 09:16; Status DC Dopamine HCl/ Dextrose 250 ml @ 15.155 mls/ hr CONT PRN IV SEE I/O RECORD Last administered on 04/06/17 15:44; Start 03/31/17 at 13:00 Info 1 each PRN DAILY PRN MC SEE COMMENTS Last administered on 04/19/17 12:36 ; Start 04/03/17 at 12:15 Sodium Chloride 90 meq/Potassium Chloride 50 meq/ Potassium Phosphate 20.4 mmol/ Magnesium Sulfate 10 meq/ Calcium Gluconate 10 meq/ Multivitamins 10 ml/Chromium / Copper/Manganese/ Seleni/Zn 1 ml/ Total Parenteral Nutrition/Amino Acids/ Dextrose/ Fat Emulsion Intravenous 1,512 ml @ 63 mls/hr TPN CONT IV Last administered on 04/03/17 21:38; Start 04/03/17 at 22:00; Stop 04/04/17 at 21 :59; Status DC Levofloxacin/ Dextrose 100 ml @ 100 mls/hr Q24H IV Last administered on 21:47; Start 04/04/17 at 21:00; Stop 04/07/17 at 13:39; Status DC Furosemide (Lasix) 40 mg DAILY IVP Last administered on 04/19/17 09:30; Start 04/04/17 at 12:00 Sodium Chloride 90 meq/Potassium Chloride 50 meq/ Potassium Phosphate 20.4 mmol/ Magnesium Sulfate 16 meq/ Calcium Gluconate 10 meq/ Multivitamins 10 ml/Chromium / Copper/Manganese/ Seleni/Zn 1 ml/ Total Parenteral Nutrition/Amino Acids/ Dextrose/ Fat Emulsion Intravenous 1,512 ml @ 63 mls/hr TPN CONT IV Last administered on 04/04/17 21:16; Start 04/04/17 at 22:00; Stop 04/05/17 at 21 :59; Status DC Insulin Detemir (Levemir) 20 units QHS SQ Last administered on 04/10/17 21:39 ; Start 04/05/17 at 21:00; Stop 04/11/17 at 08:11; Status DC Insulin Detemir (Levemir) 10 units 1X ONCE SQ Last administered on 04/05/17 14:12; Start 04/05/17 at 09:45; Stop 04/05/17 at 09:46; Status DC Sodium Chloride 90 meq/Potassium Chloride 50 meq/ Potassium Phosphate 20.4 mmol/ Magnesium Sulfate 24 meq/ Calcium Gluconate 10 meq/ Multivitamins 10 ml/Chromium / Copper/Manganese/ Seleni/Zn 1 ml/ Total Parenteral Nutrition/Amino Acids/ Dextrose/ Fat Emulsion Intravenous 1,512 ml @ 63 mls/hr TPN CONT IV Last administered on 04/05/17 20:55; Start 04/05/17 at 22:00; Stop 04/06/17 at 21: 59; Status DC Iohexol (Omnipaque 300 Mg/ml) 75 ml 1X ONCE IV ; Start 04/05/17 at 13:00; Stop 04/05/17 at 13:01; Status DC Iohexol (Omnipaque 240 Mg/ml) 30 ml 1X ONCE PO ; Start 04/05/17 at 13:00; Stop 04/05/17 at 13:01; Status DC Info (Do NOT chart on this entry -- for MONITORING) 1 each PRN DAILY PRN MC SEE COMMENTS; Start 04/05/17 at 13:00; Stop 04/07/17 at 12:59; Status DC Sodium Chloride 90 meq/Potassium Chloride 50 meq/ Potassium Phosphate 20.4 mmol/ Magnesium Sulfate 24 meq/ Calcium Gluconate 10 meq/ Multivitamins 10 ml/Chromium / Copper/Manganese/ Seleni/Zn 1 ml/ Total Parenteral Nutrition/Amino Acids/ Dextrose/ Fat Emulsion Intravenous 1,512 ml @ 63 mls/hr TPN CONT IV Last administered on 04/06/17 21:45; Start 04/06/17 at 22:00; Stop 04/07/17 at 21:59 ; Status DC Lidocaine/Sodium Bicarbonate (Buffered Lidocaine 1%) 20 ml STK-MED ONCE IJ ; Start 04/06/17 at 14:28; Stop 04/06/17 at 14:29; Status DC Fentanyl Citrate (Fentanyl 2ml Vial) 100 mcg STK-MED ONCE .ROUTE ; Start at 14:45; Stop 04/06/17 at 14:46; Status DC Midazolam HCl (Versed) 2 mg STK-MED ONCE .ROUTE ; Start 04/06/17 at 14:45; Stop 04/06/17 at 14:46; Status DC Flumazenil (Romazicon) 0.5 mg STK-MED ONCE IV ; Start 04/06/17 at 14:45; Stop 04/06/17 at 14:46; Status DC Naloxone HCl (Narcan) 0.4 mg STK-MED ONCE .ROUTE ; Start 04/06/17 at 14:45; Stop 04/06/17 at 14:46; Status DC Dopamine HCl/ Dextrose 250 ml @ As Directed STK-MED ONCE IV ; Start 04/06/17 at 14:50; Stop 04/06/17 at 14:51; Status DC Lidocaine/Sodium Bicarbonate (Buffered Lidocaine 1%) 7 ml 1X ONCE IJ Last administered on 04/06/17 15:20; Start 04/06/17 at 15:30; Stop 04/06/17 at 15:31 ; Status DC Sodium Chloride 90 meq/Potassium Chloride 50 meq/ Potassium Phosphate 13.6 mmol/ Magnesium Sulfate 20 meq/ Calcium Gluconate 10 meq/ Multivitamins 10 ml/Chromium / Copper/Manganese/ Seleni/Zn 1 ml/ Total Parenteral Nutrition/Amino Acids/ Dextrose/ Fat Emulsion Intravenous 1,512 ml @ 63 mls/hr TPN CONT IV Last administered on 04/07/17 21:19; Start 04/07/17 at 22:00; Stop 04/08/17 at 21:59 ; Status DC Micafungin Sodium 100 mg/Sodium Chloride 100 ml @ 100 mls/hr Q24H IV Last administered on 04/16/17 13:09; Start 04/07/17 at 14:00; Stop 04/17/17 at 07: 48; Status DC Metronidazole 100 ml @ 100 mls/hr Q8HRS IV Last administered on 04/20/17 05: 34; Start 04/07/17 at 14:00 Cefepime HCl 1 gm/ Dextrose 50 ml @ 100 mls/hr Q8HRS IV ; Start 04/07/17 at 14: 00; Status UNV Cefepime HCl (Maxipime) 1 gm Q8HRS IVP Last administered on 04/20/17 05:34; Start 04/07/17 at 14:00 Sodium Chloride 90 meq/Potassium Chloride 50 meq/ Potassium Phosphate 13.6 mmol/ Magnesium Sulfate 20 meq/ Calcium Gluconate 10 meq/ Multivitamins 10 ml/Chromium / Copper/Manganese/ Seleni/Zn 1 ml/ Total Parenteral Nutrition/Amino Acids/ Dextrose/ Fat Emulsion Intravenous 1,512 ml @ 63 mls/hr TPN CONT IV Last administered on 04/08/17 21:23; Start 04/08/17 at 22:00; Stop 04/09/17 at 21:59 ; Status DC Furosemide (Lasix) 40 mg 1X ONCE IVP Last administered on 04/09/17 10:03; Start 04/09/17 at 08:15; Stop 04/09/17 at 08:16; Status DC Sodium Chloride 90 meq/Potassium Chloride 50 meq/ Potassium Phosphate 13.6 mmol/ Magnesium Sulfate 20 meq/ Calcium Gluconate 10 meq/ Multivitamins 10 ml/Chromium / Copper/Manganese/ Seleni/Zn 1 ml/ Total Parenteral Nutrition/Amino Acids/ Dextrose/ Fat Emulsion Intravenous 1,512 ml @ 63 mls/hr TPN CONT IV Last administered on 04/09/17 21:52; Start 04/09/17 at 22:00; Stop 04/10/17 at 21:59 ; Status DC Sodium Chloride 90 meq/Potassium Chloride 60 meq/ Potassium Phosphate 13.6 mmol/ Magnesium Sulfate 20 meq/ Calcium Gluconate 10 meq/ Multivitamins 10 ml/Chromium / Copper/Manganese/ Seleni/Zn 1 ml/ Total Parenteral Nutrition/Amino Acids/ Dextrose/ Fat Emulsion Intravenous 1,512 ml @ 63 mls/hr TPN CONT IV Last administered on 04/10/17 21:37; Start 04/10/17 at 22:00; Stop 04/11/17 at 21:59 ; Status DC Insulin Detemir (Levemir) 22 units QHS SQ Last administered on 04/11/17 22:08 ; Start 04/11/17 at 21:00; Stop 04/12/17 at 12:21; Status DC Enoxaparin Sodium (Lovenox 40mg Syringe) 40 mg Q24H SQ Last administered on 09:31; Start 04/11/17 at 09:00 Sodium Chloride 90 meq/Potassium Chloride 60 meq/ Potassium Phosphate 13.6 mmol/ Magnesium Sulfate 20 meq/ Calcium Gluconate 10 meq/ Multivitamins 10 ml/Chromium / Copper/Manganese/ Seleni/Zn 1 ml/ Total Parenteral Nutrition/Amino Acids/ Dextrose/ Fat Emulsion Intravenous 1,512 ml @ 63 mls/hr TPN CONT IV Last administered on 04/11/17 21:59; Start 04/11/17 at 22:00; Stop 04/12/17 at 21:59 ; Status DC Norepinephrine Bitartrate 250 ml @ As Directed STK-MED ONCE IV ; Start at 15:51; Stop 04/11/17 at 15:52; Status DC Norepinephrine Bitartrate 250 ml @ 0 mls/hr CONT PRN IV SEE I/O RECORD Last administered on 04/18/17 01:37; Start 04/11/17 at 22:30 Linezolid 300 ml @ 300 mls/hr Q12HR IV Last administered on 04/19/17 21:38; Start 04/12/17 at 09:00 Norepinephrine Bitartrate (Levophed 8mg/ 250ml Premix Drip) 8 mg STK-MED ONCE IV ; Start 04/11/17 at 16:00; Stop 04/12/17 at 09:06; Status DC Insulin Detemir (Levemir) 24 units QHS SQ Last administered on 04/12/17 22:16 ; Start 04/12/17 at 21:00; Stop 04/13/17 at 08:24; Status DC Sodium Chloride 90 meq/Potassium Chloride 60 meq/ Potassium Phosphate 13.6 mmol/ Magnesium Sulfate 20 meq/ Calcium Gluconate 10 meq/ Multivitamins 10 ml/Chromium / Copper/Manganese/ Seleni/Zn 1 ml/ Total Parenteral Nutrition/Amino Acids/ Dextrose/ Fat Emulsion Intravenous 1,512 ml @ 63 mls/hr TPN CONT IV Last administered on 04/12/17 22:15; Start 04/12/17 at 22:00; Stop 04/13/17 at 21:59 ; Status DC Insulin Detemir (Levemir) 26 units QHS SQ Last administered on 04/13/17 21:56 ; Start 04/13/17 at 21:00; Stop 04/14/17 at 21:44; Status DC Lorazepam (Ativan) 0.5 mg PRN Q8HRS PRN PO ANXIETY / AGITATION Last administered on 04/19/17 23:20; Start 04/14/17 at 09:00 Sodium Chloride 90 meq/Potassium Chloride 60 meq/ Potassium Phosphate 13.6 mmol/ Magnesium Sulfate 15 meq/ Calcium Gluconate 8 meq/ Multivitamins 10 ml/Chromium / Copper/Manganese/ Seleni/Zn 1 ml/ Total Parenteral Nutrition/Amino Acids/ Dextrose/ Fat Emulsion Intravenous 1,512 ml @ 63 mls/hr TPN CONT IV Last administered on 04/13/17 21:45; Start 04/13/17 at 22:00; Stop 04/14/17 at 21:59 ; Status DC Sodium Chloride 90 meq/Potassium Chloride 60 meq/ Potassium Phosphate 13.6 mmol/ Magnesium Sulfate 10 meq/ Calcium Gluconate 8 meq/ Multivitamins 10 ml/Chromium / Copper/Manganese/ Seleni/Zn 1 ml/ Total Parenteral Nutrition/Amino Acids/ Dextrose/ Fat Emulsion Intravenous 1,512 ml @ 63 mls/hr TPN CONT IV ; Start 04/14/17 at 22:00; Stop 04/14/17 at 22:00; Status DC Sodium Chloride 90 meq/Potassium Chloride 60 meq/ Potassium Phosphate 13.6 mmol/ Magnesium Sulfate 15 meq/ Calcium Gluconate 8 meq/ Multivitamins 10 ml/Chromium / Copper/Manganese/ Seleni/Zn 1 ml/ Total Parenteral Nutrition/Amino Acids/ Dextrose/ Fat Emulsion Intravenous 1,512 ml @ 63 mls/hr TPN CONT IV Last administered on 04/14/17 21:27; Start 04/14/17 at 22:00; Stop 04/15/17 at 21: 59; Status DC Insulin Detemir (Levemir) 30 units QHS SQ Last administered on 04/19/17 21:40 ; Start 04/14/17 at 22:00 Sodium Chloride 90 meq/Potassium Chloride 60 meq/ Potassium Phosphate 13.6 mmol/ Magnesium Sulfate 15 meq/ Calcium Gluconate 8 meq/ Multivitamins 10 ml/Chromium / Copper/Manganese/ Seleni/Zn 1 ml/ Total Parenteral Nutrition/Amino Acids/ Dextrose/ Fat Emulsion Intravenous 1,512 ml @ 63 mls/hr TPN CONT IV Last administered on 04/15/17 21:52; Start 04/15/17 at 22:00; Stop 04/16/17 at 21 :59; Status DC Insulin Aspart (NovoLOG) 0-9 UNITS Q6HRS SQ Last administered on 04/19/17 17: 29; Start 04/15/17 at 18:00 Dextrose (Dextrose 50%-Water Syringe) 12.5 gm PRN Q15MIN PRN IV SEE COMMENTS; Start 04/15/17 at 15:30 Alteplase, Recombinant (Cathflo) 2 mg 1X ONCE INT CAT Last administered on 09:29; Start 04/16/17 at 09:00; Stop 04/16/17 at 09:01; Status DC Bupropion HCl (Wellbutrin Xl) 150 mg DAILY PO Last administered on 04/19/17 07:42; Start 04/16/17 at 10:00 Alteplase, Recombinant (Cathflo) 2 mg 1X ONCE INT CAT Last administered on 10:17; Start 04/16/17 at 10:15; Stop 04/16/17 at 10:16; Status DC Alteplase, Recombinant (Cathflo) 2 mg 1X ONCE INT CAT Last administered on 11:26; Start 04/16/17 at 11:15; Stop 04/16/17 at 11:16; Status DC Alteplase, Recombinant (Cathflo) 2 mg 1X ONCE INT CAT Last administered on 11:25; Start 04/16/17 at 11:15; Stop 04/16/17 at 11:16; Status DC Multivitamins (Thera M Plus) 1 tab DAILY PO Last administered on 04/19/17 07: 42; Start 04/16/17 at 13:00 Ascorbic Acid (Vitamin C) 500 mg DAILY PO Last administered on 04/19/17 07:42 ; Start 04/16/17 at 13:00 Sodium Chloride 110 meq/Potassium Chloride 60 meq/ Potassium Phosphate 15 mmol/ Magnesium Sulfate 15 meq/Calcium Gluconate 8 meq/ Multivitamins 10 ml/Chromium/ Copper/Manganese/ Seleni/Zn 1 ml/ Insulin Human Regular 15 unit/ Total Parenteral Nutrition/Amino Acids/Dextrose/ Fat Emulsion Intravenous 1,512 ml @ 63 mls/hr TPN CONT IV ; Start 04/16/17 at 22:00; Stop 04/16/17 at 22:00; Status DC Sodium Chloride 110 meq/Potassium Chloride 60 meq/ Potassium Phosphate 15 mmol/ Magnesium Sulfate 15 meq/Calcium Gluconate 8 meq/ Multivitamins 10 ml/Chromium/ Copper/Manganese/ Seleni/Zn 1 ml/ Insulin Human Regular 10 unit/ Total Parenteral Nutrition/Amino Acids/Dextrose/ Fat Emulsion Intravenous 1,512 ml @ 63 mls/hr TPN CONT IV Last administered on 04/16/17 21:27; Start 04/16/17 at 22:00; Stop 04/17/17 at 21:59; Status DC Sodium Chloride 110 meq/Potassium Chloride 60 meq/ Potassium Phosphate 15 mmol/ Magnesium Sulfate 15 meq/Calcium Gluconate 8 meq/ Multivitamins 10 ml/Chromium/ Copper/Manganese/ Seleni/Zn 1 ml/ Insulin Human Regular 10 unit/ Total Parenteral Nutrition/Amino Acids/Dextrose/ Fat Emulsion Intravenous 1,512 ml @ 63 mls/hr TPN CONT IV Last administered on 04/17/17 22:00; Start 04/17/17 at 22:00; Stop 04/18/17 at 21:59; Status DC Albumin Human 50 ml @ 50 mls/hr 1X ONCE IV Last administered on 04/17/17 19: 44; Start 04/17/17 at 19:30; Stop 04/17/17 at 20:29; Status DC Albumin Human 50 ml @ 50 mls/hr 1X ONCE IV Last administered on 04/18/17 00: 15; Start 04/17/17 at 21:30; Stop 04/17/17 at 22:29; Status DC Albumin Human 500 ml @ 125 mls/hr 1X ONCE IV Last administered on 04/18/17 11:19; Start 04/18/17 at 10:30; Stop 04/18/17 at 14:29; Status DC Sodium Chloride 110 meq/Potassium Chloride 60 meq/ Potassium Phosphate 15 mmol/ Magnesium Sulfate 15 meq/Calcium Gluconate 8 meq/ Multivitamins 10 ml/Chromium/ Copper/Manganese/ Seleni/Zn 1 ml/ Insulin Human Regular 10 unit/ Total Parenteral Nutrition/Amino Acids/Dextrose/ Fat Emulsion Intravenous 1,512 ml @ 63 mls/hr TPN CONT IV Last administered on 04/18/17 21:59; Start 04/18/17 at 22:00; Stop 04/19/17 at 21:59; Status DC Furosemide (Lasix) 40 mg 1X ONCE IVP Last administered on 04/18/17 19:24; Start 04/18/17 at 18:30; Stop 04/18/17 at 18:35; Status DC Albumin Human 250 ml @ 62.5 mls/hr 1X ONCE IV Last administered on 18:30; Start 04/18/17 at 18:30; Stop 04/18/17 at 22:29; Status DC Albuterol Sulfate (Ventolin Neb Soln) 2.5 mg PRN QID PRN NEB SHORTNESS OF BREATH Last administered on 04/20/17 07:09; Start 04/18/17 at 23:30 Ipratropium [place] (Atrovent) 0.5 mg RTQID NEB Last administered on 07:10; Start 04/19/17 at 08:00 Morphine Sulfate (Roxanol Conc) 5 mg PRN Q3HRS PRN SL PAIN Last administered on 04/19/17 17:27; Start 04/19/17 at 09:45 Temazepam (Restoril) 15 mg PRN QHS PRN PO INSOMNIA; Start 04/19/17 at 09:45 Morphine Sulfate (Roxanol Conc) 10 mg PRN Q3HRS PRN SL PAIN Last administered on 04/20/17 05:46; Start 04/19/17 at 10:00 Sodium Chloride 110 meq/Potassium Chloride 60 meq/ Potassium Phosphate 15 mmol/ Magnesium Sulfate 15 meq/Calcium Gluconate 8 meq/ Multivitamins 10 ml/Chromium/ Copper/Manganese/ Seleni/Zn 1 ml/ Insulin Human Regular 10 unit/ Total Parenteral Nutrition/Amino Acids/Dextrose/ Fat Emulsion Intravenous 1,512 ml @ 63 mls/hr TPN CONT IV Last administered on 04/19/17t 21:52; Start 04/19/17 at 22:00; Stop 04/20/17 at 21:59 Active Scripts Active Reported Flagyl (Metronidazole) 500 Mg Tablet 1 Tab PO BID Cefpodoxime Proxetil 200 Mg Tablet 1 Tab PO BID Ferrous Sulfate 325 Mg Tablet 1 Tab PO DAILY Lasix (Furosemide) 40 Mg Tablet 40 Mg PO QODAY Potassium Chloride 10 Meq Capsule.er 10 Meq PO QODAY Metoprolol Tartrate 25 Mg Tablet 12.5 Mg PO BID Atorvastatin Calcium 40 Mg Tablet 40 Mg PO HS Clopidogrel (Clopidogrel Bisulfate) 75 Mg Tablet 1 Tab PO DAILY Diclofenac Sodium 75 Mg Tablet.dr 75 Mg PO DAILY Ranitidine Hcl 150 Mg Tablet 1 Tab PO BID Aspirin 81 Mg Tab.chew 1 Tab PO DAILY Vitals/I & O Vital Sign - Last 24 Hours 04/19/17 04/19/17 04/19/17 04/19/17 09:00 10:00 11:00 11:51 Pulse 115 116 116 Resp 22 28 32 B/P (MAP) 74/49 (57) 84/44 (57) 80/44 (56) Pulse Ox 90 89 89 91 O2 Delivery Nasal Cannula Nasal Cannula Nasal Cannula High Flow Nasal Cannula O2 Flow Rate 5.0 5.0 5.0 7.0 04/19/17 04/19/17 04/19/17 04/19/17 12:00 12:00 12:12 13:00 Pulse 106 Resp 36 35 32 B/P (MAP) 57/46 (50) Pulse Ox 89 84 95 O2 Delivery Nasal Cannula Nasal Cannula Nasal Cannula Nasal Cannula O2 Flow Rate 7.0 7.0 7.0 7.0 04/19/17 04/19/17 04/19/17 04/19/17 13:00 14:00 14:01 15:00 Temp 97.4 97.4 Pulse 127 115 124 Resp 28 30 32 30 B/P (MAP) 103/52 (69) 81/62 (68) 119/61 (80) Pulse Ox 95 100 99 O2 Delivery Nasal Cannula Nasal Cannula Nasal Cannula O2 Flow Rate 7.0 7.0 7.0 04/19/17 04/19/17 04/19/17 04/19/17 15:46 16:00 16:06 17:00 Temp 97.4 97.4 Pulse 123 112 Resp 33 40 B/P (MAP) 135/72 (93) 113/55 (74) Pulse Ox 98 98 94 O2 Delivery High Flow Nasal Cannula Nasal Cannula Nasal Cannula Nasal Cannula O2 Flow Rate 7.0 7.0 7.0 7.0 04/19/17 04/19/17 04/19/17 04/19/17 17:27 18:00 18:31 18:32 Pulse 119 Resp 40 40 40 40 B/P (MAP) 111/54 (73) Pulse Ox 98 95 98 98 O2 Delivery Nasal Cannula Nasal Cannula Nasal Cannula Nasal Cannula O2 Flow Rate 7.0 7.0 7.0 7.0 04/19/17 04/19/17 04/19/17 04/19/17 19:00 19:31 19:31 20:00 Pulse 116 Resp 40 B/P (MAP) 97/50 (66) Pulse Ox 95 95 95 O2 Delivery Nasal Cannula Nasal Cannula High Flow Nasal Cannula Nasal Cannula O2 Flow Rate 7.0 6.0 6.0 7.0 04/19/17 04/19/17 04/19/17 04/19/17 20:00 21:00 22:00 22:20 Temp 98.0 98.0 Pulse 116 114 116 Resp 36 39 37 B/P (MAP) 95/43 (60) 91/47 (62) 97/50 (66) Pulse Ox 95 95 95 95 O2 Delivery Nasal Cannula Nasal Cannula Nasal Cannula Nasal Cannula O2 Flow Rate 7.0 7.0 7.0 6.0 04/19/17 04/19/17 04/20/17 04/20/17 23:00 23:20 00:00 00:01 Temp 97.6 97.6 Pulse 114 120 Resp 41 45 B/P (MAP) 100/57 (71) 112/59 (76) Pulse Ox 95 95 94 O2 Delivery Nasal Cannula Nasal Cannula Nasal Cannula Nasal Cannula O2 Flow Rate 7.0 6.0 7.0 7.0 04/20/17 04/20/17 04/20/17 04/20/17 01:00 02:00 03:00 04:00 Pulse 114 116 107 Resp 31 36 38 B/P (MAP) 110/75 (87) 109/62 (78) 98/45 (62) Pulse Ox 93 92 95 O2 Delivery Nasal Cannula Nasal Cannula Nasal Cannula Nasal Cannula O2 Flow Rate 7.0 7.0 7.0 7.0 04/20/17 04/20/17 04/20/17 04/20/17 04:00 05:00 05:46 06:00 Temp 98.1 98.1 Pulse 112 107 114 Resp 40 38 44 B/P (MAP) 111/62 (78) 98/45 (62) 91/58 (69) Pulse Ox 92 95 95 93 O2 Delivery Nasal Cannula Nasal Cannula Nasal Cannula Nasal Cannula O2 Flow Rate 7.0 7.0 7.0 7.0 04/20/17 07:10 Pulse Ox 89 O2 Delivery Nasal Cannula O2 Flow Rate 6.0 Intake and Output 04/19/17 04/19/17 04/20/17 15:00 23:00 07:00 Intake Total 700 ml 959 ml 886 ml Output Total 595 ml 420 ml 330 ml Balance 105 ml 539 ml 556 ml DANNY MEZA MD Apr 20, 2017 08:50
[2017-04-20] MEDS: METOPROLOL SUCC 24HR ER 25 MG TAB.ER.24H. PO SCH (09:00)
--- NOTE | 2017-04-20 09:04 | PDOC ---
Provider Note Provider Note no change in status, labs same, has tried roxanol x 2 for dyspnea- will continue comfort care MILENA MCMILLAN MD Apr 20, 2017 09:04
[2017-04-20] MEDS: PANTOPRAZOLE IV PUSH 40 MG VIAL. IVP SCH (09:19)
[2017-04-20] MEDS: LORazepam 0.5 MG TABLET PO PRN ×2 (09:20→22:20)
[2017-04-20] MEDS: MULTIVITAMIN with MINERAL TABLET. PO SCH (09:20)
[2017-04-20] MEDS: ASCORBIC ACID 500 MG TABLET PO SCH (09:20)
[2017-04-20] MEDS: ASPIRIN CHEWABLE 81 MG TABLET. PO SCH (09:20)
[2017-04-20] MEDS: FUROSEMIDE 40 MG/4 ML VIAL. IVP SCH (09:20)
[2017-04-20] MEDS: FERROUS SULFATE 325 MG TABLET. PO SCH (09:20)
[2017-04-20] MEDS: ENOXAPARIN 40 MG/0.4 ML SYRINGE. SQ SCH (09:49)
[2017-04-20] MEDS: buPROPion XL 150 MG TAB.ER.24H. PO SCH (09:55)
[2017-04-20] MEDS: TPN PER PHARMACY MC PRN (10:39)
--- NOTE | 2017-04-20 12:27 | PDOC ---
SURGICAL PROGRESS NOTE Subjective resting, receiving breathing treatment Vital Signs Vital Signs Date Time Temp Pulse Resp B/P (MAP) Pulse Ox O2 Delivery O2 Flow Rate FiO2 04/20/17 11:58 94 Nasal Cannula 6.0 04/20/17 10:00 114 44 111/60 (77) 04/20/17 07:00 97.9 97.9 I&O Intake and Output 04/20/17 07:00 Intake Total 2545 ml Output Total 1365 ml Balance 1180 ml Intake Oral 420 ml IV Total 2125 ml Output Urine Total 1190 ml Stool Total 175 ml Drainage Total 0 ml General: Alert, No acute distress Abdomen: Soft Labs Laboratory Tests Test 04/18/17 22:52 04/19/17 05:45 04/19/17 12:10 04/19/17 17:24 Glucose (Fingerstick) 195 mg/dL (70-99) 153 mg/dL (70-99) 234 mg/dL (70-99) 214 mg/dL (70-99) Test 04/20/17 01:49 04/20/17 05:30 Glucose (Fingerstick) 198 mg/dL (70-99) 174 mg/dL (70-99) Laboratory Tests Test 04/19/17 17:24 04/20/17 01:49 04/20/17 05:30 Glucose (Fingerstick) 214 mg/dL (70-99) 198 mg/dL (70-99) 174 mg/dL (70-99) Problem List Problems Medical Problems: (1) Abdominal abscess Status: Acute (2) Abdominal pain Status: Acute Assessment/Plan supportive care Problems: DYLON OCHOA APRN Apr 20, 2017 12:26
--- NOTE | 2017-04-20 12:50 | PDOC ---
PULMONARY PROGRESS NOTES Subjective remains tachypneic levophed Vitals Vital Signs Date Time Temp Pulse Resp B/P (MAP) Pulse Ox O2 Delivery O2 Flow Rate FiO2 04/20/17 12:00 98.1 111 30 80/55 (63) 88 Nasal Cannula 7.0 98.1 ROS: No Nausea, No Chest Pain, No Abdominal Pain, No Increase Cough General: Alert, Mild Distress Lungs: Wheezing (faint wheezes) Cardiovascular: S1, S2 Abdomen: Soft, Other (colostomy/ drains in place) Neuro Exam: Alert Extremities: Other (1+edema) Skin: Warm Labs Laboratory Tests Test 04/18/17 22:52 04/19/17 05:45 04/19/17 12:10 04/19/17 17:24 Glucose (Fingerstick) 195 mg/dL (70-99) 153 mg/dL (70-99) 234 mg/dL (70-99) 214 mg/dL (70-99) Test 04/20/17 01:49 04/20/17 05:30 Glucose (Fingerstick) 198 mg/dL (70-99) 174 mg/dL (70-99) Laboratory Tests Test 04/19/17 17:24 04/20/17 01:49 04/20/17 05:30 Glucose (Fingerstick) 214 mg/dL (70-99) 198 mg/dL (70-99) 174 mg/dL (70-99) Medications Active Scripts Medications Dose Route/Sig Max Daily Dose Days Date Category Flagyl (Metronidazole) 500 Mg Tablet 1 Tab PO BID 03/01/17 Reported Cefpodoxime Proxetil 200 Mg Tablet 1 Tab PO BID 03/01/17 Reported Ferrous Sulfate 325 Mg Tablet 1 Tab PO DAILY 02/23/17 Reported Lasix (Furosemide) 40 Mg Tablet 40 Mg PO QODAY 02/23/17 Reported Potassium Chloride 10 Meq Capsule.er 10 Meq PO QODAY 02/23/17 Reported Metoprolol Tartrate 25 Mg Tablet 12.5 Mg PO BID 01/31/17 Reported Atorvastatin Calcium 40 Mg Tablet 40 Mg PO HS 01/31/17 Reported Clopidogrel (Clopidogrel Bisulfate) 75 Mg Tablet 1 Tab PO DAILY 08/24/15 Reported Diclofenac Sodium 75 Mg Tablet.dr 75 Mg PO DAILY 12/21/14 Reported Ranitidine Hcl 150 Mg Tablet 1 Tab PO BID 12/21/14 Reported Aspirin 81 Mg Tab.chew 1 Tab PO DAILY 04/15/14 Reported Comments CXR 04/18 NO CHANGE Impression . 1. [id number] respiratory failure, MULTIFACTORIAL/ Persistent low BP/ on levo/ SOA despite colloids/ lasix 2. Status post laparoscopic converted to open exploration for extensive lysis of adhesion, removal of old mesh, subtotal colectomy, small bowel resection and incisional hernia repair 3. Obesity, body mass index of 35. 4. Leukocytosis. 5. Enterocutaneous fistula. Abdominal abscess, measuring 6.4 x 4.9 cm. s/p drain 03/12. Klebsiella ( R to Zosyn, S Cipro/Levo), VRE (R PCN) and PSAE ( R to ticarcillin only otherwise sensitive, S Cipro/Levo) and C tropicalis -h/o Strep anginosis and Bacteroides 6. Fever RESOLVED 7. Abdominal abscess. 8. Ventral hernia, status post repair. 9. Bilateral effusions due to low oncotic pressure/ , small effusions on ct 10. Anxiety disorder Palliative Care Spoke with patient and son Chris. Patient off BiPap ---feels better. RR 32-34. Reviewed conversations patient and son had with physicians. Patient wants to continue to try to get better. Son Chris supportive of her wish. Understands that this will need to be evaluated closely as respiratory condition could decline rapidly. Encouraged patient and son to have conversation about any limitations of care that she would want. They understand that recovery could be a long process. Will continue to follow closely. Chris will be at work tomorrow but available by phone if anything changes. Plan . AGREE WITH ROXANOL/ CXR UNCHANGED 04/18 CONTINUE LEVOPHED/ LOW DOSE WILL AVOID BIPAP DUE TO DAMAGE TO SKIN AT BRIDGE OF NOSE REPEAT CT ABDOMEN/PELVIS REVIEWED/ SMALL EFFUSIONS LASIX PRN/ COLLOID PRN VENOUS DOPPLER NEGATIVE/ CT NEGATIVE FOR PE ANXIETY/ ON SCHEDULED ATIVAN D/W RN DNR GOALS SHOULD BE COMFORT STACI CORRAL MD Apr 20, 2017 12:50
[2017-04-20] MEDS: NOREPINEPHRIN PREMIX 250 ML IV PRN (21:07)
[2017-04-20] MEDS: INSULIN DETEMIR 300 UNITS/3 ML INSULN.PEN. SQ SCH (21:23)
[2017-04-20] MEDS ORDERED: DEXTROSE 70% IV SCH ×11 (22:00)
[2017-04-20] MEDS ORDERED: [UNRECOGNIZED DRUG - OTHER] IV SCH ×11 (22:00)
[2017-04-20] MEDS ORDERED: TOTAL PARENTERAL NUTRITION IV SCH ×11 (22:00)
[2017-04-20] MEDS ORDERED: AMINO ACIDS IV SCH ×11 (22:00)
[2017-04-21] VITALS (23 sets, daily range): BP systolic 53–181; BP diastolic 31–70
[2017-04-21] MEDS: INSULIN ASPART 300 UNITS/3 ML INSULN.PEN SQ SCH ×4 (06:00→18:00)
[2017-04-21] MEDS: MORPHINE SULFATE 20 MG/ML CONC SOLUTION. SL PRN ×2 (06:26→09:44)
[2017-04-21] MEDS: CEFEPIME HCL IV Push 1 GM VIAL. IVP SCH ×3 (06:27→22:04)
[2017-04-21] MEDS: IPRATROPIUM BROMIDE 0.5 MG/2.5 ML NEBU. NEB SCH ×4 (08:00→20:00)
[2017-04-21 08:53] LABS: BASO % 0 % (0-3); EOS % 0 % (0-3); HEMOGLOBIN 8.4 g/dL (12.0-15.5); LYMPH # 1.1 x10^3/uL (1.0-4.8); LYMPH % 29 % (24-48); MEAN CORPUSCULAR HEMOGLOBIN 28 pg (25-35); MEAN CORPUSCULAR HGB CONC 31 g/dL (31-37); MEAN CORPUSCULAR VOLUME 92 fL (79-100); MONO % 7 % (0-9); NEUT % 64 % (31-73); PLATELET COUNT 200 x10^3/uL (140-400); RED BLOOD COUNT 2.96 x10^6/uL (3.50-5.40); RED CELL DISTRIBUTION WIDTH 18.5 % (11.5-14.5); WHITE BLOOD COUNT 3.8 x10^3/uL (4.0-11.0)
[2017-04-21] MEDS: METOPROLOL SUCC 24HR ER 25 MG TAB.ER.24H. PO SCH (08:57)
[2017-04-21] MEDS: PANTOPRAZOLE IV PUSH 40 MG VIAL. IVP SCH (09:09)
[2017-04-21] MEDS: ASPIRIN CHEWABLE 81 MG TABLET. PO SCH (09:09)
[2017-04-21] MEDS: ENOXAPARIN 40 MG/0.4 ML SYRINGE. SQ SCH (09:09)
[2017-04-21] MEDS: buPROPion XL 150 MG TAB.ER.24H. PO SCH (09:09)
[2017-04-21] MEDS: FERROUS SULFATE 325 MG TABLET. PO SCH (09:09)
[2017-04-21] MEDS: FUROSEMIDE 40 MG/4 ML VIAL. IVP SCH (09:09)
[2017-04-21] MEDS: MULTIVITAMIN with MINERAL TABLET. PO SCH (09:10)
[2017-04-21] MEDS: ASCORBIC ACID 500 MG TABLET PO SCH (09:10)
[2017-04-21 09:27] LABS: ALBUMIN 1.6 g/dL (3.4-5.0); ALBUMIN/GLOBULIN RATIO 0.4 (1.0-1.7); CALCIUM 7.5 mg/dL (8.5-10.1); CREATININE 0.4 mg/dL (0.6-1.0); GFR 157.3; POTASSIUM 4.4 mmol/L (3.5-5.1); TOTAL BILIRUBIN 0.2 mg/dL (0.2-1.0); TOTAL PROTEIN 5.6 g/dL (6.4-8.2)
--- NOTE | 2017-04-21 10:05 | PDOC ---
SURGICAL PROGRESS NOTE Subjective Pt with c/o mild abd pain, eladio some PO, appears to have work of breathing Vital Signs Vital Signs Date Time Temp Pulse Resp B/P (MAP) Pulse Ox O2 Delivery O2 Flow Rate FiO2 04/21/17 09:44 41 88 Nasal Cannula 7.0 04/21/17 09:00 137 99/70 (80) 04/21/17 08:00 97.6 97.6 I&O Intake and Output 04/21/17 07:00 Intake Total 1209 ml Output Total 1685 ml Balance -476 ml Intake Oral 250 ml IV Total 959 ml Output Urine Total 1685 ml PATIENT HAS A HOPPER: Yes (accurate i and os) General: Alert, Oriented X3, Cooperative, mild distress Abdomen: Soft, No tenderness, Other (wound healing ostomy fxn) Labs Laboratory Tests Test 04/19/17 12:10 04/19/17 17:24 04/20/17 01:49 04/20/17 05:30 Glucose (Fingerstick) 234 mg/dL (70-99) 214 mg/dL (70-99) 198 mg/dL (70-99) 174 mg/dL (70-99) Test 04/20/17 15:04 04/20/17 18:32 04/20/17 21:20 04/21/17 00:22 Glucose (Fingerstick) 175 mg/dL (70-99) 174 mg/dL (70-99) 161 mg/dL (70-99) 197 mg/dL (70-99) Test 04/21/17 06:39 04/21/17 08:30 Glucose (Fingerstick) 161 mg/dL (70-99) White Blood Count 3.8 x10^3/uL (4.0-11.0) Red Blood Count 2.96 x10^6/uL (3.50-5.40) Hemoglobin 8.4 g/dL (12.0-15.5) Hematocrit 27.0 % (36.0-47.0) Mean Corpuscular Volume 92 fL (79-100) Mean Corpuscular Hemoglobin 28 pg (25-35) Mean Corpuscular Hemoglobin Concent 31 g/dL (31-37) Red Cell Distribution Width 18.5 % (11.5-14.5) Platelet Count 200 x10^3/uL (140-400) Neutrophils (%) (Auto) 64 % (31-73) Lymphocytes (%) (Auto) 29 % (24-48) Monocytes (%) (Auto) 7 % (0-9) Eosinophils (%) (Auto) 0 % (0-3) Basophils (%) (Auto) 0 % (0-3) Neutrophils # (Auto) 2.4 x10^3uL (1.8-7.7) Lymphocytes # (Auto) 1.1 x10^3/uL (1.0-4.8) Monocytes # (Auto) 0.3 x10^3/uL (0.0-1.1) Eosinophils # (Auto) 0.0 x10^3/uL (0.0-0.7) Basophils # (Auto) 0.0 x10^3/uL (0.0-0.2) Sodium Level 143 mmol/L (136-145) Potassium Level 4.4 mmol/L (3.5-5.1) Chloride Level 110 mmol/L (98-107) Carbon Dioxide Level 23 mmol/L (21-32) Anion Gap 10 (6-14) Blood Urea Nitrogen 32 mg/dL (7-20) Creatinine 0.4 mg/dL (0.6-1.0) Estimated GFR (Cockcroft-Gault) 157.3 BUN/Creatinine Ratio 80 (6-20) Glucose Level 158 mg/dL (70-99) Calcium Level 7.5 mg/dL (8.5-10.1) Total Bilirubin 0.2 mg/dL (0.2-1.0) Aspartate Amino Transf (AST/SGOT) 17 U/L (15-37) Alanine Aminotransferase (ALT/SGPT) 11 U/L (14-59) Alkaline Phosphatase 74 U/L (46-116) Total Protein 5.6 g/dL (6.4-8.2) Albumin 1.6 g/dL (3.4-5.0) Albumin/Globulin Ratio 0.4 (1.0-1.7) Laboratory Tests Test 04/20/17 15:04 04/20/17 18:32 04/20/17 21:20 04/21/17 00:22 Glucose (Fingerstick) 175 mg/dL (70-99) 174 mg/dL (70-99) 161 mg/dL (70-99) 197 mg/dL (70-99) Test 04/21/17 06:39 04/21/17 08:30 Glucose (Fingerstick) 161 mg/dL (70-99) White Blood Count 3.8 x10^3/uL (4.0-11.0) Red Blood Count 2.96 x10^6/uL (3.50-5.40) Hemoglobin 8.4 g/dL (12.0-15.5) Hematocrit 27.0 % (36.0-47.0) Mean Corpuscular Volume 92 fL (79-100) Mean Corpuscular Hemoglobin 28 pg (25-35) Mean Corpuscular Hemoglobin Concent 31 g/dL (31-37) Red Cell Distribution Width 18.5 % (11.5-14.5) Platelet Count 200 x10^3/uL (140-400) Neutrophils (%) (Auto) 64 % (31-73) Lymphocytes (%) (Auto) 29 % (24-48) Monocytes (%) (Auto) 7 % (0-9) Eosinophils (%) (Auto) 0 % (0-3) Basophils (%) (Auto) 0 % (0-3) Neutrophils # (Auto) 2.4 x10^3uL (1.8-7.7) Lymphocytes # (Auto) 1.1 x10^3/uL (1.0-4.8) Monocytes # (Auto) 0.3 x10^3/uL (0.0-1.1) Eosinophils # (Auto) 0.0 x10^3/uL (0.0-0.7) Basophils # (Auto) 0.0 x10^3/uL (0.0-0.2) Sodium Level 143 mmol/L (136-145) Potassium Level 4.4 mmol/L (3.5-5.1) Chloride Level 110 mmol/L (98-107) Carbon Dioxide Level 23 mmol/L (21-32) Anion Gap 10 (6-14) Blood Urea Nitrogen 32 mg/dL (7-20) Creatinine 0.4 mg/dL (0.6-1.0) Estimated GFR (Cockcroft-Gault) 157.3 BUN/Creatinine Ratio 80 (6-20) Glucose Level 158 mg/dL (70-99) Calcium Level 7.5 mg/dL (8.5-10.1) Total Bilirubin 0.2 mg/dL (0.2-1.0) Aspartate Amino Transf (AST/SGOT) 17 U/L (15-37) Alanine Aminotransferase (ALT/SGPT) 11 U/L (14-59) Alkaline Phosphatase 74 U/L (46-116) Total Protein 5.6 g/dL (6.4-8.2) Albumin 1.6 g/dL (3.4-5.0) Albumin/Globulin Ratio 0.4 (1.0-1.7) Problem List Problems Medical Problems: (1) Abdominal abscess Status: Acute (2) Abdominal pain Status: Acute Assessment/Plan s/p xlap cont supportive care Problems: IL HAMMOND MD Apr 21, 2017 10:05
--- NOTE | 2017-04-21 10:35 | PDOC ---
Infectious Disease Note Subjective Subjective Feeling ok TPN Hypotensive, Levophed gtt ROS ROS GEN: Denies fevers, chills, sweats CV: Denies chest pain RESP: Denies shortness of air, cough GI: Denies n/v Vital Sign Vital Signs Vital Signs Date Time Temp Pulse Resp B/P (MAP) Pulse Ox O2 Delivery O2 Flow Rate FiO2 04/21/17 10:00 133 43 104/51 (68) 85 Nasal Cannula 7.0 04/21/17 08:00 97.6 97.6 Physical Exam PHYSICAL EXAM GENERAL: Awake, NAD HEENT: Oral cavity, pharynx dry LUNGS: Clear anteriorly, tachypneic HEART: S1S2 ABD: BS active, soft, NT, ostomy, wound & [place] - drainage, [place] intact : [place] EXT: BLE edema, no cyanosis 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 clean Labs Lab Laboratory Tests Test 04/20/17 15:04 04/20/17 18:32 04/20/17 21:20 04/21/17 00:22 Glucose (Fingerstick) 175 mg/dL (70-99) 174 mg/dL (70-99) 161 mg/dL (70-99) 197 mg/dL (70-99) Test 04/21/17 06:39 04/21/17 08:30 Glucose (Fingerstick) 161 mg/dL (70-99) White Blood Count 3.8 x10^3/uL (4.0-11.0) Red Blood Count 2.96 x10^6/uL (3.50-5.40) Hemoglobin 8.4 g/dL (12.0-15.5) Hematocrit 27.0 % (36.0-47.0) Mean Corpuscular Volume 92 fL (79-100) Mean Corpuscular Hemoglobin 28 pg (25-35) Mean Corpuscular Hemoglobin Concent 31 g/dL (31-37) Red Cell Distribution Width 18.5 % (11.5-14.5) Platelet Count 200 x10^3/uL (140-400) Neutrophils (%) (Auto) 64 % (31-73) Lymphocytes (%) (Auto) 29 % (24-48) Monocytes (%) (Auto) 7 % (0-9) Eosinophils (%) (Auto) 0 % (0-3) Basophils (%) (Auto) 0 % (0-3) Neutrophils # (Auto) 2.4 x10^3uL (1.8-7.7) Lymphocytes # (Auto) 1.1 x10^3/uL (1.0-4.8) Monocytes # (Auto) 0.3 x10^3/uL (0.0-1.1) Eosinophils # (Auto) 0.0 x10^3/uL (0.0-0.7) Basophils # (Auto) 0.0 x10^3/uL (0.0-0.2) Sodium Level 143 mmol/L (136-145) Potassium Level 4.4 mmol/L (3.5-5.1) Chloride Level 110 mmol/L (98-107) Carbon Dioxide Level 23 mmol/L (21-32) Anion Gap 10 (6-14) Blood Urea Nitrogen 32 mg/dL (7-20) Creatinine 0.4 mg/dL (0.6-1.0) Estimated GFR (Cockcroft-Gault) 157.3 BUN/Creatinine Ratio 80 (6-20) Glucose Level 158 mg/dL (70-99) Calcium Level 7.5 mg/dL (8.5-10.1) Total Bilirubin 0.2 mg/dL (0.2-1.0) Aspartate Amino Transf (AST/SGOT) 17 U/L (15-37) Alanine Aminotransferase (ALT/SGPT) 11 U/L (14-59) Alkaline Phosphatase 74 U/L (46-116) Total Protein 5.6 g/dL (6.4-8.2) Albumin 1.6 g/dL (3.4-5.0) Albumin/Globulin Ratio 0.4 (1.0-1.7) Micro /. BLOOD CULTURE Preliminary NO GROWTH AFTER 2 DAY Objective Assessment Leukopenia [id number] respiratory failure, off BiPAP - pleural effusions -stable and small/ LE U/S 04/08 neg. ECHO 03/22 EF 40 - 45 %. Repeat 04/10 45 % Hypotension - on Levophed Severe Protein malnutrition Decreasing UOP - improved Fever, UA neg - some better Elevated TSH - T4 in normal range Acute Anemia - s/p PRBCs one unit 04/08 s/p lap converted to open exploration, JAIRO, removal of infected mesh, subtotal colectomy, SBR and hernia repair, 03/24. 10.0 x 5.5 x 18.0 cm fluid collection with air-fluid levels in the right lower quadrant. s/p drain placement, 04/06. PSAE/Bacteroides/VRE Wound dehiscence Nasal bridge from BiPAP and abd wound looks worse as has increased in size (pictures 04/08) Leukocytosis - improved Thrombocytopenia, resolved EC fistula Abdominal abscess, measuring 6.4 x 4.9 cm. s/p drain 03/12. Klebsiella ( R to Zosyn, S Cipro/Levo), VRE (R PCN) and PSAE ( R to ticarcillin only otherwise sensitive, S Cipro/Levo) and C tropicalis -h/o Strep anginosis and Bacteroides Ventral hernia DM HTN PCN allergy/amox also - hives and swelling Elevated CK - improved Plan Plan of Care Zyvox (04/11), Flagyl and Cefepime 04/07,, monitor CBC/temp. 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
--- NOTE | 2017-04-21 11:40 | PDOC ---
Provider Note Provider Note bp still low, no new signs, lab same- using roxanol tid w/ + effect- but RR now 20/min while asleep- will try scheduled roxanol re comfort, still add prn no limit MILENA MCMILLAN MD Apr 21, 2017 11:40
--- NOTE | 2017-04-21 12:13 | PDOC ---
PULMONARY PROGRESS NOTES Subjective remains tachypneic levophed Vitals Vital Signs Date Time Temp Pulse Resp B/P (MAP) Pulse Ox O2 Delivery O2 Flow Rate FiO2 04/21/17 10:47 40 86 Nasal Cannula 7.0 04/21/17 10:00 133 104/51 (68) 04/21/17 08:00 97.6 97.6 ROS: No Nausea, No Chest Pain, No Abdominal Pain, No Increase Cough General: Alert, Mild Distress Lungs: Wheezing (faint wheezes) Cardiovascular: S1, S2 Abdomen: Soft, Other (colostomy/ drains in place) Neuro Exam: Alert Extremities: Other (1+edema) Skin: Warm Labs Laboratory Tests Test 04/19/17 12:10 04/19/17 17:24 04/20/17 01:49 04/20/17 05:30 Glucose (Fingerstick) 234 mg/dL (70-99) 214 mg/dL (70-99) 198 mg/dL (70-99) 174 mg/dL (70-99) Test 04/20/17 15:04 04/20/17 18:32 04/20/17 21:20 04/21/17 00:22 Glucose (Fingerstick) 175 mg/dL (70-99) 174 mg/dL (70-99) 161 mg/dL (70-99) 197 mg/dL (70-99) Test 04/21/17 06:39 04/21/17 08:30 Glucose (Fingerstick) 161 mg/dL (70-99) White Blood Count 3.8 x10^3/uL (4.0-11.0) Red Blood Count 2.96 x10^6/uL (3.50-5.40) Hemoglobin 8.4 g/dL (12.0-15.5) Hematocrit 27.0 % (36.0-47.0) Mean Corpuscular Volume 92 fL (79-100) Mean Corpuscular Hemoglobin 28 pg (25-35) Mean Corpuscular Hemoglobin Concent 31 g/dL (31-37) Red Cell Distribution Width 18.5 % (11.5-14.5) Platelet Count 200 x10^3/uL (140-400) Neutrophils (%) (Auto) 64 % (31-73) Lymphocytes (%) (Auto) 29 % (24-48) Monocytes (%) (Auto) 7 % (0-9) Eosinophils (%) (Auto) 0 % (0-3) Basophils (%) (Auto) 0 % (0-3) Neutrophils # (Auto) 2.4 x10^3uL (1.8-7.7) Lymphocytes # (Auto) 1.1 x10^3/uL (1.0-4.8) Monocytes # (Auto) 0.3 x10^3/uL (0.0-1.1) Eosinophils # (Auto) 0.0 x10^3/uL (0.0-0.7) Basophils # (Auto) 0.0 x10^3/uL (0.0-0.2) Sodium Level 143 mmol/L (136-145) Potassium Level 4.4 mmol/L (3.5-5.1) Chloride Level 110 mmol/L (98-107) Carbon Dioxide Level 23 mmol/L (21-32) Anion Gap 10 (6-14) Blood Urea Nitrogen 32 mg/dL (7-20) Creatinine 0.4 mg/dL (0.6-1.0) Estimated GFR (Cockcroft-Gault) 157.3 BUN/Creatinine Ratio 80 (6-20) Glucose Level 158 mg/dL (70-99) Calcium Level 7.5 mg/dL (8.5-10.1) Total Bilirubin 0.2 mg/dL (0.2-1.0) Aspartate Amino Transf (AST/SGOT) 17 U/L (15-37) Alanine Aminotransferase (ALT/SGPT) 11 U/L (14-59) Alkaline Phosphatase 74 U/L (46-116) Total Protein 5.6 g/dL (6.4-8.2) Albumin 1.6 g/dL (3.4-5.0) Albumin/Globulin Ratio 0.4 (1.0-1.7) Laboratory Tests Test 04/20/17 15:04 04/20/17 18:32 04/20/17 21:20 04/21/17 00:22 Glucose (Fingerstick) 175 mg/dL (70-99) 174 mg/dL (70-99) 161 mg/dL (70-99) 197 mg/dL (70-99) Test 04/21/17 06:39 12/16/17 08:30 Glucose (Fingerstick) 161 mg/dL (70-99) White Blood Count 3.8 x10^3/uL (4.0-11.0) Red Blood Count 2.96 x10^6/uL (3.50-5.40) Hemoglobin 8.4 g/dL (12.0-15.5) Hematocrit 27.0 % (36.0-47.0) Mean Corpuscular Volume 92 fL (79-100) Mean Corpuscular Hemoglobin 28 pg (25-35) Mean Corpuscular Hemoglobin Concent 31 g/dL (31-37) Red Cell Distribution Width 18.5 % (11.5-14.5) Platelet Count 200 x10^3/uL (140-400) Neutrophils (%) (Auto) 64 % (31-73) Lymphocytes (%) (Auto) 29 % (24-48) Monocytes (%) (Auto) 7 % (0-9) Eosinophils (%) (Auto) 0 % (0-3) Basophils (%) (Auto) 0 % (0-3) Neutrophils # (Auto) 2.4 x10^3uL (1.8-7.7) Lymphocytes # (Auto) 1.1 x10^3/uL (1.0-4.8) Monocytes # (Auto) 0.3 x10^3/uL (0.0-1.1) Eosinophils # (Auto) 0.0 x10^3/uL (0.0-0.7) Basophils # (Auto) 0.0 x10^3/uL (0.0-0.2) Sodium Level 143 mmol/L (136-145) Potassium Level 4.4 mmol/L (3.5-5.1) Chloride Level 110 mmol/L (98-107) Carbon Dioxide Level 23 mmol/L (21-32) Anion Gap 10 (6-14) Blood Urea Nitrogen 32 mg/dL (7-20) Creatinine 0.4 mg/dL (0.6-1.0) Estimated GFR (Cockcroft-Gault) 157.3 BUN/Creatinine Ratio 80 (6-20) Glucose Level 158 mg/dL (70-99) Calcium Level 7.5 mg/dL (8.5-10.1) Total Bilirubin 0.2 mg/dL (0.2-1.0) Aspartate Amino Transf (AST/SGOT) 17 U/L (15-37) Alanine Aminotransferase (ALT/SGPT) 11 U/L (14-59) Alkaline Phosphatase 74 U/L (46-116) Total Protein 5.6 g/dL (6.4-8.2) Albumin 1.6 g/dL (3.4-5.0) Albumin/Globulin Ratio 0.4 (1.0-1.7) Medications Active Scripts Medications Dose Route/Sig Max Daily Dose Days Date Category Flagyl (Metronidazole) 500 Mg Tablet 1 Tab PO BID 03/01/17 Reported Cefpodoxime Proxetil 200 Mg Tablet 1 Tab PO BID 03/01/17 Reported Ferrous Sulfate 325 Mg Tablet 1 Tab PO DAILY 02/23/17 Reported Lasix (Furosemide) 40 Mg Tablet 40 Mg PO QODAY 02/23/17 Reported Potassium Chloride 10 Meq Capsule.er 10 Meq PO QODAY 02/23/17 Reported Metoprolol Tartrate 25 Mg Tablet 12.5 Mg PO BID 01/31/17 Reported Atorvastatin Calcium 40 Mg Tablet 40 Mg PO HS 01/31/17 Reported Clopidogrel (Clopidogrel Bisulfate) 75 Mg Tablet 1 Tab PO DAILY 08/24/15 Reported Diclofenac Sodium 75 Mg Tablet.dr 75 Mg PO DAILY 12/21/14 Reported Ranitidine Hcl 150 Mg Tablet 1 Tab PO BID 12/21/14 Reported Aspirin 81 Mg Tab.chew 1 Tab PO DAILY 04/15/14 Reported Comments CXR 04/18 NO CHANGE Impression . 1. [id number] respiratory failure, MULTIFACTORIAL/ Persistent low BP/ on levo/ SOA despite colloids/ lasix 2. Status post laparoscopic converted to open exploration for extensive lysis of adhesion, removal of old mesh, subtotal colectomy, small bowel resection and incisional hernia repair 3. Obesity, body mass index of 35. 4. Leukocytosis. 5. Enterocutaneous fistula. Abdominal abscess, measuring 6.4 x 4.9 cm. s/p drain 03/12. Klebsiella ( R to Zosyn, S Cipro/Levo), VRE (R PCN) and PSAE ( R to ticarcillin only otherwise sensitive, S Cipro/Levo) and C tropicalis -h/o Strep anginosis and Bacteroides 6. Fever RESOLVED 7. Abdominal abscess. 8. Ventral hernia, status post repair. 9. Bilateral effusions due to low oncotic pressure/ , small effusions on ct 10. Anxiety disorder Plan . AGREE WITH ROXANOL/ CXR UNCHANGED 04/18 CONTINUE LEVOPHED/ LOW DOSE WILL AVOID BIPAP DUE TO DAMAGE TO SKIN AT BRIDGE OF NOSE REPEAT CT ABDOMEN/PELVIS REVIEWED/ SMALL EFFUSIONS LASIX PRN/ COLLOID PRN VENOUS DOPPLER NEGATIVE/ CT NEGATIVE FOR PE ANXIETY/ ON SCHEDULED ATIVAN D/W RN DNR GOALS SHOULD BE COMFORT STACI CORRAL MD Apr 21, 2017 12:13
[2017-04-21] MEDS: TPN PER PHARMACY MC PRN (12:28)
[2017-04-21] MEDS: MORPHINE SULFATE 20 MG/ML CONC SOLUTION. SL SCH ×2 (13:02→18:32)
[2017-04-21] MEDS: NOREPINEPHRIN PREMIX 250 ML IV PRN (20:34)
[2017-04-21] MEDS: INSULIN DETEMIR 300 UNITS/3 ML INSULN.PEN. SQ SCH (21:41)
[2017-04-21] MEDS ORDERED: DEXTROSE 70% IV SCH ×11 (22:00)
[2017-04-21] MEDS ORDERED: TOTAL PARENTERAL NUTRITION IV SCH ×11 (22:00)
[2017-04-21] MEDS ORDERED: AMINO ACIDS IV SCH ×11 (22:00)
[2017-04-21] MEDS ORDERED: [UNRECOGNIZED DRUG - OTHER] IV SCH ×11 (22:00)
[2017-04-22] VITALS (23 sets, daily range): BP systolic 82–166; BP diastolic 40–80
[2017-04-22] MEDS: MORPHINE SULFATE 20 MG/ML CONC SOLUTION. SL SCH ×5 (00:27→23:59)
[2017-04-22] MEDS: INSULIN ASPART 300 UNITS/3 ML INSULN.PEN SQ SCH ×5 (00:31→23:59)
[2017-04-22] MEDS: MORPHINE SULFATE 20 MG/ML CONC SOLUTION. SL PRN ×2 (03:28→15:30)
[2017-04-22] MEDS: CEFEPIME HCL IV Push 1 GM VIAL. IVP SCH ×3 (05:49→21:31)
[2017-04-22 06:34] LABS: BASO % 0 % (0-3); EOS % 0 % (0-3); HEMATOCRIT 26.1 % (36.0-47.0); HEMOGLOBIN 8.4 g/dL (12.0-15.5); LYMPH % 25 % (24-48); MEAN CORPUSCULAR HEMOGLOBIN 29 pg (25-35); MEAN CORPUSCULAR HGB CONC 32 g/dL (31-37); MEAN CORPUSCULAR VOLUME 90 fL (79-100); MONO % 7 % (0-9); NEUT % 67 % (31-73); PLATELET COUNT 159 x10^3/uL (140-400); RED BLOOD COUNT 2.89 x10^6/uL (3.50-5.40); WHITE BLOOD COUNT 4.1 x10^3/uL (4.0-11.0)
[2017-04-22 06:46] LABS: CALCIUM 8.1 mg/dL (8.5-10.1); CREATININE 0.6 mg/dL (0.6-1.0); GFR 98.5; MAGNESIUM 2.3 mg/dL (1.8-2.4); PHOSPHORUS 3.5 mg/dL (2.6-4.7)
[2017-04-22 06:48] LABS: POTASSIUM 5.1 mmol/L (3.5-5.1)
[2017-04-22] MEDS: TPN PER PHARMACY MC PRN (07:35)
[2017-04-22] MEDS: IPRATROPIUM BROMIDE 0.5 MG/2.5 ML NEBU. NEB SCH ×3 (08:00→16:00)
[2017-04-22] MEDS: METOPROLOL SUCC 24HR ER 25 MG TAB.ER.24H. PO SCH (08:02)
[2017-04-22] MEDS: ASPIRIN CHEWABLE 81 MG TABLET. PO SCH (08:43)
[2017-04-22] MEDS: buPROPion XL 150 MG TAB.ER.24H. PO SCH (08:43)
[2017-04-22] MEDS: FUROSEMIDE 40 MG/4 ML VIAL. IVP SCH (08:43)
[2017-04-22] MEDS: PANTOPRAZOLE IV PUSH 40 MG VIAL. IVP SCH (08:43)
[2017-04-22] MEDS: MULTIVITAMIN with MINERAL TABLET. PO SCH (08:43)
[2017-04-22] MEDS: ASCORBIC ACID 500 MG TABLET PO SCH (08:43)
[2017-04-22] MEDS: ENOXAPARIN 40 MG/0.4 ML SYRINGE. SQ SCH (08:43)
[2017-04-22] MEDS: FERROUS SULFATE 325 MG TABLET. PO SCH (08:43)
--- NOTE | 2017-04-22 09:11 | PDOC ---
Provider Note Provider Note bp persistantly low, labs ok, only med re same is low dose metoprolol- will check cortisol but doubt addisons, add trial of midodrine to see if we can stop pressors MILENA MCMILLAN MD Apr 22, 2017 09:11
[2017-04-22] MEDS: FAMOTIDINE 20 MG TABLET. PO SCH ×2 (09:16→21:28)
--- NOTE | 2017-04-22 09:22 | PDOC ---
Infectious Disease Note Subjective Subjective Nonverbal TPN ROS ROS noncommunicative Vital Sign Vital Signs Vital Signs Date Time Temp Pulse Resp B/P (MAP) Pulse Ox O2 Delivery O2 Flow Rate FiO2 04/22/17 08:00 Nasal Cannula 10.0 04/22/17 08:00 114 36 111/55 (73) 99 04/22/17 03:00 98.4 98.4 Physical Exam PHYSICAL EXAM GENERAL: Awake, work of breathing, NAD HEENT: Oral cavity, pharynx dry LUNGS: Clear anteriorly, tachypneic HEART: S1S2 ABD: BS active, soft, NT, ostomy, wound & [place] - drainage, [place] intact : [place] EXT: BLE edema, no cyanosis [employer]PER[employer]: Awake, quiet SKIN: No rash. wound/scabbing bridge of nose RUE-PICC. clean Labs Lab Laboratory Tests Test 04/21/17 12:53 04/21/17 18:29 04/21/17 20:31 04/22/17 00:23 Glucose (Fingerstick) 213 mg/dL (70-99) 169 mg/dL (70-99) 179 mg/dL (70-99) 207 mg/dL (70-99) Test 04/22/17 06:05 04/22/17 06:18 White Blood Count 4.1 x10^3/uL (4.0-11.0) Red Blood Count 2.89 x10^6/uL (3.50-5.40) Hemoglobin 8.4 g/dL (12.0-15.5) Hematocrit 26.1 % (36.0-47.0) Mean Corpuscular Volume 90 fL (79-100) Mean Corpuscular Hemoglobin 29 pg (25-35) Mean Corpuscular Hemoglobin Concent 32 g/dL (31-37) Red Cell Distribution Width 18.0 % (11.5-14.5) Platelet Count 159 x10^3/uL (140-400) Neutrophils (%) (Auto) 67 % (31-73) Lymphocytes (%) (Auto) 25 % (24-48) Monocytes (%) (Auto) 7 % (0-9) Eosinophils (%) (Auto) 0 % (0-3) Basophils (%) (Auto) 0 % (0-3) Neutrophils # (Auto) 2.7 x10^3uL (1.8-7.7) Lymphocytes # (Auto) 1.0 x10^3/uL (1.0-4.8) Monocytes # (Auto) 0.3 x10^3/uL (0.0-1.1) Eosinophils # (Auto) 0.0 x10^3/uL (0.0-0.7) Basophils # (Auto) 0.0 x10^3/uL (0.0-0.2) Sodium Level 142 mmol/L (136-145) Potassium Level 5.1 mmol/L (3.5-5.1) Chloride Level 108 mmol/L (98-107) Carbon Dioxide Level 24 mmol/L (21-32) Anion Gap 10 (6-14) Blood Urea Nitrogen 41 mg/dL (7-20) Creatinine 0.6 mg/dL (0.6-1.0) Estimated GFR (Cockcroft-Gault) 98.5 Glucose Level 180 mg/dL (70-99) Calcium Level 8.1 mg/dL (8.5-10.1) Phosphorus Level 3.5 mg/dL (2.6-4.7) Magnesium Level 2.3 mg/dL (1.8-2.4) Glucose (Fingerstick) 165 mg/dL (70-99) Micro 04/12. BLOOD CULTURE Preliminary NO GROWTH AFTER 2 DAY Objective Assessment Leukopenia - better [id number] respiratory failure, off BiPAP - pleural effusions -stable and small/ LE U/S 04/08 neg. ECHO 03/22 EF 40 - 45 %. Repeat 04/10 45 % Hypotension - on Levophed Severe Protein malnutrition Decreasing UOP - improved Fever, UA neg - some better Elevated TSH - T4 in normal range Acute Anemia - s/p PRBCs one unit 04/08 s/p lap converted to open exploration, JAIRO, removal of infected mesh, subtotal colectomy, SBR and hernia repair, 03/24. 10.0 x 5.5 x 18.0 cm fluid collection with air-fluid levels in the right lower quadrant. s/p drain placement, 04/06. PSAE/Bacteroides/VRE Wound dehiscence Nasal bridge from BiPAP and abd wound looks worse as has increased in size (pictures 04/08) Leukocytosis - improved Thrombocytopenia, resolved EC fistula Abdominal abscess, measuring 6.4 x 4.9 cm. s/p drain 03/12. Klebsiella ( R to Zosyn, S Cipro/Levo), VRE (R PCN) and PSAE ( R to ticarcillin only otherwise sensitive, S Cipro/Levo) and C tropicalis -h/o Strep anginosis and Bacteroides Ventral hernia DM HTN PCN allergy/amox also - hives and swelling Elevated CK - improved Plan Plan of Care Zyvox (04/11), Flagyl and Cefepime 04/07,, monitor CBC/temp. Supportive care DNR/DNI D/w son Guarded prognosis overall given resp failure/deconditioning D/W BRAND ANALYST Pt seen and examined agree with above D/W family at bedside SERAFIN MOTT APRN Apr 22, 2017 09:22 HUMAIRA RODNEY MD Apr 22, 2017 14:15
--- NOTE | 2017-04-22 09:32 | PDOC ---
SURGICAL PROGRESS NOTE Subjective Pt without new c/o, pain better, eladio some PO, appears to have work of breathing Vital Signs Vital Signs Date Time Temp Pulse Resp B/P (MAP) Pulse Ox O2 Delivery O2 Flow Rate FiO2 04/22/17 08:00 Nasal Cannula 10.0 04/22/17 08:00 114 36 111/55 (73) 99 04/22/17 03:00 98.4 98.4 I&O Intake and Output 04/22/17 07:00 Intake Total 4784.08 ml Output Total 2445 ml Balance 2339.08 ml Intake Oral 80 ml IV Total 4584.08 ml Blood Product IV Normal Saline Flush 120 ml Output Urine Total 2145 ml Stool Total 300 ml Drainage Total 0 ml General: Alert, Oriented X3, Cooperative, No acute distress Lungs: Other (work of breathing) Abdomen: Soft, No tenderness, Other (ostomy fxn) Labs Laboratory Tests Test 04/20/17 15:04 04/20/17 18:32 04/20/17 21:20 04/21/17 00:22 Glucose (Fingerstick) 175 mg/dL (70-99) 174 mg/dL (70-99) 161 mg/dL (70-99) 197 mg/dL (70-99) Test 04/21/17 06:39 04/21/17 08:30 04/21/17 12:53 04/21/17 18:29 Glucose (Fingerstick) 161 mg/dL (70-99) 213 mg/dL (70-99) 169 mg/dL (70-99) White Blood Count 3.8 x10^3/uL (4.0-11.0) Red Blood Count 2.96 x10^6/uL (3.50-5.40) Hemoglobin 8.4 g/dL (12.0-15.5) Hematocrit 27.0 % (36.0-47.0) Mean Corpuscular Volume 92 fL (79-100) Mean Corpuscular Hemoglobin 28 pg (25-35) Mean Corpuscular Hemoglobin Concent 31 g/dL (31-37) Red Cell Distribution Width 18.5 % (11.5-14.5) Platelet Count 200 x10^3/uL (140-400) Neutrophils (%) (Auto) 64 % (31-73) Lymphocytes (%) (Auto) 29 % (24-48) Monocytes (%) (Auto) 7 % (0-9) Eosinophils (%) (Auto) 0 % (0-3) Basophils (%) (Auto) 0 % (0-3) Neutrophils # (Auto) 2.4 x10^3uL (1.8-7.7) Lymphocytes # (Auto) 1.1 x10^3/uL (1.0-4.8) Monocytes # (Auto) 0.3 x10^3/uL (0.0-1.1) Eosinophils # (Auto) 0.0 x10^3/uL (0.0-0.7) Basophils # (Auto) 0.0 x10^3/uL (0.0-0.2) Sodium Level 143 mmol/L (136-145) Potassium Level 4.4 mmol/L (3.5-5.1) Chloride Level 110 mmol/L (98-107) Carbon Dioxide Level 23 mmol/L (21-32) Anion Gap 10 (6-14) Blood Urea Nitrogen 32 mg/dL (7-20) Creatinine 0.4 mg/dL (0.6-1.0) Estimated GFR (Cockcroft-Gault) 157.3 BUN/Creatinine Ratio 80 (6-20) Glucose Level 158 mg/dL (70-99) Calcium Level 7.5 mg/dL (8.5-10.1) Total Bilirubin 0.2 mg/dL (0.2-1.0) Aspartate Amino Transf (AST/SGOT) 17 U/L (15-37) Alanine Aminotransferase (ALT/SGPT) 11 U/L (14-59) Alkaline Phosphatase 74 U/L (46-116) Total Protein 5.6 g/dL (6.4-8.2) Albumin 1.6 g/dL (3.4-5.0) Albumin/Globulin Ratio 0.4 (1.0-1.7) Test 04/21/17 20:31 04/22/17 00:23 04/22/17 06:05 04/22/17 06:18 Glucose (Fingerstick) 179 mg/dL (70-99) 207 mg/dL (70-99) 165 mg/dL (70-99) White Blood Count 4.1 x10^3/uL (4.0-11.0) Red Blood Count 2.89 x10^6/uL (3.50-5.40) Hemoglobin 8.4 g/dL (12.0-15.5) Hematocrit 26.1 % (36.0-47.0) Mean Corpuscular Volume 90 fL (79-100) Mean Corpuscular Hemoglobin 29 pg (25-35) Mean Corpuscular Hemoglobin Concent 32 g/dL (31-37) Red Cell Distribution Width 18.0 % (11.5-14.5) Platelet Count 159 x10^3/uL (140-400) Neutrophils (%) (Auto) 67 % (31-73) Lymphocytes (%) (Auto) 25 % (24-48) Monocytes (%) (Auto) 7 % (0-9) Eosinophils (%) (Auto) 0 % (0-3) Basophils (%) (Auto) 0 % (0-3) Neutrophils # (Auto) 2.7 x10^3uL (1.8-7.7) Lymphocytes # (Auto) 1.0 x10^3/uL (1.0-4.8) Monocytes # (Auto) 0.3 x10^3/uL (0.0-1.1) Eosinophils # (Auto) 0.0 x10^3/uL (0.0-0.7) Basophils # (Auto) 0.0 x10^3/uL (0.0-0.2) Sodium Level 142 mmol/L (136-145) Potassium Level 5.1 mmol/L (3.5-5.1) Chloride Level 108 mmol/L (98-107) Carbon Dioxide Level 24 mmol/L (21-32) Anion Gap 10 (6-14) Blood Urea Nitrogen 41 mg/dL (7-20) Creatinine 0.6 mg/dL (0.6-1.0) Estimated GFR (Cockcroft-Gault) 98.5 Glucose Level 180 mg/dL (70-99) Calcium Level 8.1 mg/dL (8.5-10.1) Phosphorus Level 3.5 mg/dL (2.6-4.7) Magnesium Level 2.3 mg/dL (1.8-2.4) Laboratory Tests Test 04/21/17 12:53 04/21/17 18:29 04/21/17 20:31 04/22/17 00:23 Glucose (Fingerstick) 213 mg/dL (70-99) 169 mg/dL (70-99) 179 mg/dL (70-99) 207 mg/dL (70-99) Test 04/22/17 06:05 04/22/17 06:18 White Blood Count 4.1 x10^3/uL (4.0-11.0) Red Blood Count 2.89 x10^6/uL (3.50-5.40) Hemoglobin 8.4 g/dL (12.0-15.5) Hematocrit 26.1 % (36.0-47.0) Mean Corpuscular Volume 90 fL (79-100) Mean Corpuscular Hemoglobin 29 pg (25-35) Mean Corpuscular Hemoglobin Concent 32 g/dL (31-37) Red Cell Distribution Width 18.0 % (11.5-14.5) Platelet Count 159 x10^3/uL (140-400) Neutrophils (%) (Auto) 67 % (31-73) Lymphocytes (%) (Auto) 25 % (24-48) Monocytes (%) (Auto) 7 % (0-9) Eosinophils (%) (Auto) 0 % (0-3) Basophils (%) (Auto) 0 % (0-3) Neutrophils # (Auto) 2.7 x10^3uL (1.8-7.7) Lymphocytes # (Auto) 1.0 x10^3/uL (1.0-4.8) Monocytes # (Auto) 0.3 x10^3/uL (0.0-1.1) Eosinophils # (Auto) 0.0 x10^3/uL (0.0-0.7) Basophils # (Auto) 0.0 x10^3/uL (0.0-0.2) Sodium Level 142 mmol/L (136-145) Potassium Level 5.1 mmol/L (3.5-5.1) Chloride Level 108 mmol/L (98-107) Carbon Dioxide Level 24 mmol/L (21-32) Anion Gap 10 (6-14) Blood Urea Nitrogen 41 mg/dL (7-20) Creatinine 0.6 mg/dL (0.6-1.0) Estimated GFR (Cockcroft-Gault) 98.5 Glucose Level 180 mg/dL (70-99) Calcium Level 8.1 mg/dL (8.5-10.1) Phosphorus Level 3.5 mg/dL (2.6-4.7) Magnesium Level 2.3 mg/dL (1.8-2.4) Glucose (Fingerstick) 165 mg/dL (70-99) Problem List Problems Medical Problems: (1) Abdominal abscess Status: Acute (2) Abdominal pain Status: Acute Assessment/Plan s/p xlap d/c drains cont pulm toilet d/w pt and pt's son d/w primary a Problems: LI HAMMOND MD Apr 22, 2017 09:32
[2017-04-22] MEDS: MIDODRINE 5 MG TABLET PO SCH ×3 (09:38→18:01)
--- NOTE | 2017-04-22 15:17 | PDOC ---
PULMONARY PROGRESS NOTES Subjective remains tachypneic levophed 8 mics Vitals Vital Signs Date Time Temp Pulse Resp B/P (MAP) Pulse Ox O2 Delivery O2 Flow Rate FiO2 04/22/17 15:00 121 44 96/45 (62) 100 Nasal Cannula 10.0 04/22/17 12:00 97.8 97.8 ROS: No Nausea, No Chest Pain, No Abdominal Pain, No Increase Cough General: Alert, Mild Distress Lungs: Other (decrease bs) Cardiovascular: S1, S2 Abdomen: Soft, Other (colostomy/ drains in place) Neuro Exam: Alert Extremities: Other (1+edema) Skin: Warm Labs Laboratory Tests Test 04/20/17 18:32 04/20/17 21:20 04/21/17 00:22 04/21/17 06:39 Glucose (Fingerstick) 174 mg/dL (70-99) 161 mg/dL (70-99) 197 mg/dL (70-99) 161 mg/dL (70-99) Test 04/21/17 08:30 04/21/17 12:53 04/21/17 18:29 04/21/17 20:31 White Blood Count 3.8 x10^3/uL (4.0-11.0) Red Blood Count 2.96 x10^6/uL (3.50-5.40) Hemoglobin 8.4 g/dL (12.0-15.5) Hematocrit 27.0 % (36.0-47.0) Mean Corpuscular Volume 92 fL (79-100) Mean Corpuscular Hemoglobin 28 pg (25-35) Mean Corpuscular Hemoglobin Concent 31 g/dL (31-37) Red Cell Distribution Width 18.5 % (11.5-14.5) Platelet Count 200 x10^3/uL (140-400) Neutrophils (%) (Auto) 64 % (31-73) Lymphocytes (%) (Auto) 29 % (24-48) Monocytes (%) (Auto) 7 % (0-9) Eosinophils (%) (Auto) 0 % (0-3) Basophils (%) (Auto) 0 % (0-3) Neutrophils # (Auto) 2.4 x10^3uL (1.8-7.7) Lymphocytes # (Auto) 1.1 x10^3/uL (1.0-4.8) Monocytes # (Auto) 0.3 x10^3/uL (0.0-1.1) Eosinophils # (Auto) 0.0 x10^3/uL (0.0-0.7) Basophils # (Auto) 0.0 x10^3/uL (0.0-0.2) Sodium Level 143 mmol/L (136-145) Potassium Level 4.4 mmol/L (3.5-5.1) Chloride Level 110 mmol/L (98-107) Carbon Dioxide Level 23 mmol/L (21-32) Anion Gap 10 (6-14) Blood Urea Nitrogen 32 mg/dL (7-20) Creatinine 0.4 mg/dL (0.6-1.0) Estimated GFR (Cockcroft-Gault) 157.3 BUN/Creatinine Ratio 80 (6-20) Glucose Level 158 mg/dL (70-99) Calcium Level 7.5 mg/dL (8.5-10.1) Total Bilirubin 0.2 mg/dL (0.2-1.0) Aspartate Amino Transf (AST/SGOT) 17 U/L (15-37) Alanine Aminotransferase (ALT/SGPT) 11 U/L (14-59) Alkaline Phosphatase 74 U/L (46-116) Total Protein 5.6 g/dL (6.4-8.2) Albumin 1.6 g/dL (3.4-5.0) Albumin/Globulin Ratio 0.4 (1.0-1.7) Glucose (Fingerstick) 213 mg/dL (70-99) 169 mg/dL (70-99) 179 mg/dL (70-99) Test 04/22/17 00:23 04/22/17 06:05 04/22/17 06:18 04/22/17 12:29 Glucose (Fingerstick) 207 mg/dL (70-99) 165 mg/dL (70-99) 177 mg/dL (70-99) White Blood Count 4.1 x10^3/uL (4.0-11.0) Red Blood Count 2.89 x10^6/uL (3.50-5.40) Hemoglobin 8.4 g/dL (12.0-15.5) Hematocrit 26.1 % (36.0-47.0) Mean Corpuscular Volume 90 fL (79-100) Mean Corpuscular Hemoglobin 29 pg (25-35) Mean Corpuscular Hemoglobin Concent 32 g/dL (31-37) Red Cell Distribution Width 18.0 % (11.5-14.5) Platelet Count 159 x10^3/uL (140-400) Neutrophils (%) (Auto) 67 % (31-73) Lymphocytes (%) (Auto) 25 % (24-48) Monocytes (%) (Auto) 7 % (0-9) Eosinophils (%) (Auto) 0 % (0-3) Basophils (%) (Auto) 0 % (0-3) Neutrophils # (Auto) 2.7 x10^3uL (1.8-7.7) Lymphocytes # (Auto) 1.0 x10^3/uL (1.0-4.8) Monocytes # (Auto) 0.3 x10^3/uL (0.0-1.1) Eosinophils # (Auto) 0.0 x10^3/uL (0.0-0.7) Basophils # (Auto) 0.0 x10^3/uL (0.0-0.2) Sodium Level 142 mmol/L (136-145) Potassium Level 5.1 mmol/L (3.5-5.1) Chloride Level 108 mmol/L (98-107) Carbon Dioxide Level 24 mmol/L (21-32) Anion Gap 10 (6-14) Blood Urea Nitrogen 41 mg/dL (7-20) Creatinine 0.6 mg/dL (0.6-1.0) Estimated GFR (Cockcroft-Gault) 98.5 Glucose Level 180 mg/dL (70-99) Calcium Level 8.1 mg/dL (8.5-10.1) Phosphorus Level 3.5 mg/dL (2.6-4.7) Magnesium Level 2.3 mg/dL (1.8-2.4) Laboratory Tests Test 04/21/17 18:29 04/21/17 20:31 04/22/17 00:23 04/22/17 06:05 Glucose (Fingerstick) 169 mg/dL (70-99) 179 mg/dL (70-99) 207 mg/dL (70-99) White Blood Count 4.1 x10^3/uL (4.0-11.0) Red Blood Count 2.89 x10^6/uL (3.50-5.40) Hemoglobin 8.4 g/dL (12.0-15.5) Hematocrit 26.1 % (36.0-47.0) Mean Corpuscular Volume 90 fL (79-100) Mean Corpuscular Hemoglobin 29 pg (25-35) Mean Corpuscular Hemoglobin Concent 32 g/dL (31-37) Red Cell Distribution Width 18.0 % (11.5-14.5) Platelet Count 159 x10^3/uL (140-400) Neutrophils (%) (Auto) 67 % (31-73) Lymphocytes (%) (Auto) 25 % (24-48) Monocytes (%) (Auto) 7 % (0-9) Eosinophils (%) (Auto) 0 % (0-3) Basophils (%) (Auto) 0 % (0-3) Neutrophils # (Auto) 2.7 x10^3uL (1.8-7.7) Lymphocytes # (Auto) 1.0 x10^3/uL (1.0-4.8) Monocytes # (Auto) 0.3 x10^3/uL (0.0-1.1) Eosinophils # (Auto) 0.0 x10^3/uL (0.0-0.7) Basophils # (Auto) 0.0 x10^3/uL (0.0-0.2) Sodium Level 142 mmol/L (136-145) Potassium Level 5.1 mmol/L (3.5-5.1) Chloride Level 108 mmol/L (98-107) Carbon Dioxide Level 24 mmol/L (21-32) Anion Gap 10 (6-14) Blood Urea Nitrogen 41 mg/dL (7-20) Creatinine 0.6 mg/dL (0.6-1.0) Estimated GFR (Cockcroft-Gault) 98.5 Glucose Level 180 mg/dL (70-99) Calcium Level 8.1 mg/dL (8.5-10.1) Phosphorus Level 3.5 mg/dL (2.6-4.7) Magnesium Level 2.3 mg/dL (1.8-2.4) Test 04/22/17 06:18 04/22/17 12:29 Glucose (Fingerstick) 165 mg/dL (70-99) 177 mg/dL (70-99) Medications Active Scripts Medications Dose Route/Sig Max Daily Dose Days Date Category Flagyl (Metronidazole) 500 Mg Tablet 1 Tab PO BID 03/01/17 Reported Cefpodoxime Proxetil 200 Mg Tablet 1 Tab PO BID 03/01/17 Reported Ferrous Sulfate 325 Mg Tablet 1 Tab PO DAILY 02/23/17 Reported Lasix (Furosemide) 40 Mg Tablet 40 Mg PO QODAY 02/23/17 Reported Potassium Chloride 10 Meq Capsule.er 10 Meq PO QODAY 02/23/17 Reported Metoprolol Tartrate 25 Mg Tablet 12.5 Mg PO BID 01/31/17 Reported Atorvastatin Calcium 40 Mg Tablet 40 Mg PO HS 01/31/17 Reported Clopidogrel (Clopidogrel Bisulfate) 75 Mg Tablet 1 Tab PO DAILY 08/24/15 Reported Diclofenac Sodium 75 Mg Tablet.dr 75 Mg PO DAILY 12/21/14 Reported Ranitidine Hcl 150 Mg Tablet 1 Tab PO BID 12/21/14 Reported Aspirin 81 Mg Tab.chew 1 Tab PO DAILY 04/15/14 Reported Comments CXR 04/18 NO CHANGE Impression . 1. [id number] respiratory failure, MULTIFACTORIAL/ Persistent low BP/ on levo/ SOA despite colloids/ lasix 2. Status post laparoscopic converted to open exploration for extensive lysis of adhesion, removal of old mesh, subtotal colectomy, small bowel resection and incisional hernia repair 3. Obesity, body mass index of 35. 4. Leukocytosis. 5. Enterocutaneous fistula. Abdominal abscess, measuring 6.4 x 4.9 cm. s/p drain 03/12. Klebsiella ( R to Zosyn, S Cipro/Levo), VRE (R PCN) and PSAE ( R to ticarcillin only otherwise sensitive, S Cipro/Levo) and C tropicalis -h/o Strep anginosis and Bacteroides 6. Fever RESOLVED 7. Abdominal abscess. 8. Ventral hernia, status post repair. 9. Bilateral effusions due to low oncotic pressure/ , small effusions on ct 10. Anxiety disorder Plan . AGREE WITH ROXANOL/ CXR UNCHANGED 04/18 CONTINUE LEVOPHED/ LOW DOSE WILL AVOID BIPAP DUE TO DAMAGE TO SKIN AT BRIDGE OF NOSE REPEAT CT ABDOMEN/PELVIS REVIEWED/ SMALL EFFUSIONS LASIX PRN/ COLLOID PRN VENOUS DOPPLER NEGATIVE/ CT NEGATIVE FOR PE ANXIETY/ ON ATIVAN D/W RN DNR STACI CORRAL MD Apr 22, 2017 15:16
[2017-04-22] MEDS ORDERED: ALBUMIN HUMAN 5% 250 ML IV ONE (15:30)
[2017-04-22] MEDS: NOREPINEPHRIN PREMIX 250 ML IV PRN (17:59)
[2017-04-22] MEDS: INSULIN DETEMIR 300 UNITS/3 ML INSULN.PEN. SQ SCH (21:31)
[2017-04-22] MEDS ORDERED: [UNRECOGNIZED DRUG - OTHER] IV SCH ×11 (22:00)
[2017-04-22] MEDS ORDERED: DEXTROSE 70% IV SCH ×11 (22:00)
[2017-04-22] MEDS ORDERED: TOTAL PARENTERAL NUTRITION IV SCH ×11 (22:00)
[2017-04-22] MEDS ORDERED: AMINO ACIDS IV SCH ×11 (22:00)
[2017-04-23] VITALS (8 sets, daily range): BP systolic 67–106; BP diastolic 36–54
[2017-04-23] MEDS ORDERED: MORPHINE SULFATE 10 MG/ML VIAL. IV PRN (05:15)
[2017-04-23] MEDS: INSULIN ASPART 300 UNITS/3 ML INSULN.PEN SQ SCH (06:00)
[2017-04-23] MEDS: MORPHINE SULFATE 20 MG/ML CONC SOLUTION. SL SCH (06:04)
[2017-04-23] MEDS: CEFEPIME HCL IV Push 1 GM VIAL. IVP SCH (06:04)
[2017-04-23] MEDS: MIDODRINE 5 MG TABLET PO SCH (07:00)
--- NOTE | 2017-05-02 11:27 | DS ---
DATE OF DISCHARGE: 04/23/2017 DATE OF : 04/23/2017. HOSPITAL SUMMARY: The patient was admitted with intraabdominal pain and swelling in the right lower quadrant, was felt to be an abscess. She had failed outpatient antibiotic therapy, and CT scan showed evidence of tracking abscess in the left lower quadrant, likely colonic in origin. She underwent operative intervention and repair, which led to partial colectomy and some small bowel resection as well given the ischemic nature of her area. She continued with a long difficult postoperative course with chronic sepsis, respiratory distress and tachypnea requiring ongoing periods of CPAP and vasopressor support. All labs and x-ray data are in the chart, will not be restated here. She ultimately decided to be comfort care and hospice and pressors were stopped and CPAP and morphine instituted, and she succumbed quietly on the morning of 04/23 with family present. FINAL DIAGNOSES: 1. Intraabdominal abscess secondary to colocutaneous fistula. 2. Chronic respiratory failure with secondary acute respiratory failure. 3. Chronic congestive heart failure, combined type. 4. Chronic renal insufficiency. 5. Severe protein calorie malnutrition. OPERATIONS AND PROCEDURES: Laparotomy, partial colectomy and small bowel resection, central line placements, wound VAC placement, TPN. COMPLICATIONS: None. DISPOSITION: She was released to the home. No postmortem examination was requested. CONSULTATIONS: Dr. Hall, Dr. Murphy, Dr. Rivero, Dr. Lomax and Dr. Bourgeois of Infectious Disease. MILENA MCMILLAN MD DR: FAETMEH/suleman JOB#: [id number] / [id number]
== END 2017-04-23 07:33 | disposition expired | DRG 907 ==
LOC: ER 07:58 → 4 NORTH 09:51 → 1 WEST ICU 03-24 20:08 → 2 SOUTH 04-02 20:30 → 1 WEST ICU 04-09 08:45
PROVIDERS: ADMIT Family Medicine; ATTEND Family Medicine
PROC: 0W9F30Z Drainage of Abdominal Wall with Drainage Device, Percutaneous Approach (ICD-10-PCS; 2017-03-12)
PROC: 0W9G30Z Drainage of Peritoneal Cavity with Drainage Device, Percutaneous Approach (ICD-10-PCS; 2017-03-19)
PROC: 02HV33Z Insertion of Infusion Device into Superior Vena Cava, Percutaneous Approach (ICD-10-PCS; 2017-03-22)
PROC: 0DB80ZZ Excision of Small Intestine, Open Approach (ICD-10-PCS; 2017-03-24)
PROC: 0D1A0Z4 Bypass Jejunum to Cutaneous, Open Approach (ICD-10-PCS; 2017-03-24)
PROC: 0WPF0JZ Removal of Synthetic Substitute from Abdominal Wall, Open Approach (ICD-10-PCS; 2017-03-24)
PROC: 0DJD4ZZ Inspection of Lower Intestinal Tract, Percutaneous Endoscopic Approach (ICD-10-PCS; 2017-03-24)
PROC: 0DTN0ZZ Resection of Sigmoid Colon, Open Approach (ICD-10-PCS; 2017-03-24)
PROC: 0DNW0ZZ Release Peritoneum, Open Approach (ICD-10-PCS; 2017-03-24)
PROC: 5A09457 Assistance with Respiratory Ventilation, 24-96 Consecutive Hours, Continuous Positive Airway Pressure (ICD-10-PCS; 2017-03-26)
PROC: 5A09557 Assistance with Respiratory Ventilation, Greater than 96 Consecutive Hours, Continuous Positive Airway Pressure (ICD-10-PCS; 2017-04-05)
PROC: 0W9G30Z Drainage of Peritoneal Cavity with Drainage Device, Percutaneous Approach (ICD-10-PCS; 2017-04-06)
PROC: 5A09357 Assistance with Respiratory Ventilation, Less than 24 Consecutive Hours, Continuous Positive Airway Pressure (ICD-10-PCS; 2017-04-06)
PROC: 30233N1 Transfusion of Nonautologous Red Blood Cells into Peripheral Vein, Percutaneous Approach (ICD-10-PCS; principal; 2017-04-08)
PROC: 5A09457 Assistance with Respiratory Ventilation, 24-96 Consecutive Hours, Continuous Positive Airway Pressure (ICD-10-PCS; 2017-04-08)
PROC: 5A09457 Assistance with Respiratory Ventilation, 24-96 Consecutive Hours, Continuous Positive Airway Pressure (ICD-10-PCS; 2017-04-10)
PROC: 5A09457 Assistance with Respiratory Ventilation, 24-96 Consecutive Hours, Continuous Positive Airway Pressure (ICD-10-PCS; 2017-04-13)
PROC: 5A09557 Assistance with Respiratory Ventilation, Greater than 96 Consecutive Hours, Continuous Positive Airway Pressure (ICD-10-PCS; 2017-04-15)
DX: T85.79XA Infection and inflammatory reaction due to other internal prosthetic devices, implants and grafts, initial encounter (principal); A41.9 Sepsis, unspecified organism; J96.21 Acute and chronic respiratory failure with hypoxia; E43 Unspecified severe protein-calorie malnutrition; I50.43 Acute on chronic combined systolic (congestive) and diastolic (congestive) heart failure; J18.9 Pneumonia, unspecified organism; K63.2 Fistula of intestine; L02.211 Cutaneous abscess of abdominal wall; J98.11 Atelectasis; K57.00 Diverticulitis of small intestine with perforation and abscess without bleeding; T81.30XA Disruption of wound, unspecified, initial encounter; D69.6 Thrombocytopenia, unspecified; E11.65 Type 2 diabetes mellitus with hyperglycemia; I11.0 Hypertensive heart disease with heart failure; E66.01 Morbid (severe) obesity due to excess calories; D63.8 Anemia in other chronic diseases classified elsewhere; B96.1 Klebsiella pneumoniae [K. pneumoniae] as the cause of diseases classified elsewhere; E07.81 Sick-euthyroid syndrome; E78.5 Hyperlipidemia, unspecified; F41.9 Anxiety disorder, unspecified; I05.0 Rheumatic mitral stenosis; I25.10 Atherosclerotic heart disease of native coronary artery without angina pectoris; I25.2 Old myocardial infarction; I95.81 Postprocedural hypotension; K43.9 Ventral hernia without obstruction or gangrene; Y83.2 Surgical operation with anastomosis, bypass or graft as the cause of abnormal reaction of the patient, or of later complication, without mention of misadventure at the time of the procedure; Z51.5 Encounter for palliative care; Z53.31 Laparoscopic surgical procedure converted to open procedure; Z66 Do not resuscitate; Z68.35 Body mass index [BMI] 35.0-35.9, adult; Z82.3 Family history of stroke; Z82.49 Family history of ischemic heart disease and other diseases of the circulatory system; Z88.0 Allergy status to penicillin; Z90.49 Acquired absence of other specified parts of digestive tract; Z90.710 Acquired absence of both cervix and uterus; Z91.048 Other nonmedicinal substance allergy status; Z95.5 Presence of coronary angioplasty implant and graft; Z96.659 Presence of unspecified artificial knee joint; K66.0 Peritoneal adhesions (postprocedural) (postinfection); M19.90 Unspecified osteoarthritis, unspecified site; Z87.440 Personal history of urinary (tract) infections; Z88.8 Allergy status to other drugs, medicaments and biological substances; Z88.6 Allergy status to analgesic agent; Z88.1 Allergy status to other antibiotic agents; Z91.040 Latex allergy status; Z68.38 Body mass index [BMI] 38.0-38.9, adult
CPT/HCPCS: 36415; 36569; 36600; 49406; 49424; 71010; 71020; 71260; 71275; 74000; 74021; 74177; 76080; 80047; 80048; 80053; 80076; 81001; 82533; 82550; 82607; 82728; 82746; 82805; 82962; 83540; 83550; 83605; 83735; 84100; 84439; 84443; 84478; 84481; 85007; 85014; 85018; 85025; 85027; 85045; 85384; 85610; 85730; 86850; 86900; 86901; 86920; 87040; 87071; 87075; 87086; 87102; 87186; 87205; 87641; 88300; 88302; 88304; 88307; 93005; 93306; 93308; 93320; 93325; 93970; 94640; 94660; 94760; 96361; 96374; 99152; A4215; C1729; C1769; C1894; C9113; J0610; J0692; J0744; J0780; J0878; J1100; J1160; J1170; J1265; J1450; J1650; J1815; J1940; J1956; J2020; J2060; J2185; J2248; J2250; J2270; J2370; J2405; J2704; J2710; J2997; J3010; J3475; J3490; J7030; J7120; J7613; J7644; P9016; P9041; P9045; P9046; Q9966; Q9967; S0028; 74020; 97530; 99285-25; A4461; J2001